=== PATIENT | male | born 1950 | race Caucasian/White ===

== ENCOUNTER 2023-11-04 11:28 | Emergency (ER) | payer MEDICARE, SELFPAY ==
[2023-11-04 11:34] VITALS: BP 134/64; PULSE 73; RESP 16; TEMP 36.6; O2SAT 98; BMI 26.8
--- NOTE | 2023-11-04 11:50 | ED.ANIMALBI1 ---
HPI - Animal Bite General Chief Complaint: Animal Bite Stated Complaint: BITE-CAT Time Seen by Provider: 11/04/23 11:34 Source: patient Mode of arrival: walk-in Limitations: no limitations History of Present Illness HPI narrative: The patient's cat bit him on the left hand 3 days ago. He has a couple of bite owens on the left index finger and a triangular piece of skin that was removed near the left thumb - and now the areas are red and swollen. He is a diabetic. Cat apparently is a home cat and immunized. No systemic complaints such as fever or vomiting. Related Data Previous Rx's Medication Instructions Recorded amoxicillin 875 mg-potassium 1 tab PO BID 10 days #20 tabs 11/04/23 clavulanate 125 mg tablet nabumetone 750 mg tablet 750 mg PO BID PRN pain #14 tabs 11/04/23 Allergies Allergy/AdvReac Type Severity Reaction Status Date / Time acetaminophen [From Percocet] Allergy Severe facial Verified 11/04/23 11:40 swelling oxycodone [From Percocet] Allergy Severe facial Verified 11/04/23 11:40 swelling PFSH PFSH Social History Smoking status: Current every day smoker Exam Narrative Exam Narrative: Nurses notes and vital signs reviewed and patient is not hypoxic. afebrile General: Well-appearing and in no apparent distress. Skin: Warm, dry, no pallor noted. Head: Normocephalic, atraumatic. Neck: Supple, non-tender. Eye: Pupils are equal, round and EOMI. No scleral icterus. Ears, Nose, Mouth, and Throat: Oral mucosa is moist Cardiovascular: Regular Rate and Rhythm without murmur, gallop or rub. Respiratory: No accessory muscle use or respiratory distress. Lungs are clear to auscultation, no wheezing, rales or rhonchi Musculoskeletal: Left hand = swelling and erythema along the index finger with some extension into the 2nd MCP. There is a scabbed triangular area of skin loss and erythema near the base of the left 2nd digit near the thumb. All fingers of the left hand with normal ROM. No proximal streaking into the left wrist of forearm. GI: Abdomen is soft, non-distended. Normal bowel sounds. No tenderness to palpation. No rebound, guarding, or rigidity noted. Neurological: A&O x4. No cranial nerve dysfunction observed. No truncal ataxia. Moves all extremities. Sensation intact. Psychiatric: Cooperative and interactive. Normal mood and affect. Constitutional Vital Signs, click to edit/add: Last Vital Signs Temp 97.8 F 11/04/23 11:34 Pulse 73 11/04/23 11:34 Resp 16 11/04/23 11:34 BP 134/64 11/04/23 11:34 Pulse Ox 98 11/04/23 11:34 O2 Del Method Room Air 11/04/23 11:34 Course Vital Signs Vital signs: Vital Signs Temperature 97.8 F 11/04/23 11:34 Pulse Rate 73 11/04/23 11:34 Respiratory Rate 16 11/04/23 11:34 Blood Pressure 134/64 11/04/23 11:34 Pulse Oximetry 98 11/04/23 11:34 Oxygen Delivery Method Room Air 11/04/23 11:34 Temperature 97.8 F 11/04/23 11:34 Pulse Rate 73 11/04/23 11:34 Respiratory Rate 16 11/04/23 11:34 Blood Pressure 134/64 11/04/23 11:34 Pulse Oximetry 98 11/04/23 11:34 Oxygen Delivery Method Room Air 11/04/23 11:34 MDM - Animal Bite MDM Narrative Medical decision making narrative: Patient prescribed Augmentin for the infection associated with cat bite. Patient instructed to apply topical antibiotic ointment to the wounds on the left hand and cover with a dry clean bandage. PCP follow up or ED return if worse was discussed. Discharge Plan Discharge Chief Complaint: Animal Bite Clinical Impression: Cat bite, Cellulitis of finger of left hand Patient Disposition: Home, Self-Care Time of Disposition Decision: 11:59 Prescriptions / Home Meds: New amoxicillin-pot clavulanate 875-125 mg tablet 1 tab PO BID 10 Days Qty: 20 0RF nabumetone 750 mg tablet 750 mg PO BID PRN (Reason: pain) Qty: 14 0RF Instructions: Animal Bite (ED), Cellulitis (ED) Stand Alone Forms: Portal Instructions Referrals: Physician,Non-Staff, MD [Primary Care Provider] - 1 week
== END 2023-11-04 12:26 | disposition home or self-care (01) ==
PROVIDERS: Emergency Provider Emergency Medicine
DX: S61.251A Open bite of left index finger without damage to nail, initial encounter (principal); S61.052A Open bite of left thumb without damage to nail, initial encounter; L03.114 Cellulitis of left upper limb; W55.01XA Bitten by cat, initial encounter; E11.9 Type 2 diabetes mellitus without complications; F17.210 Nicotine dependence, cigarettes, uncomplicated
CPT/HCPCS: 99283

== ENCOUNTER 2024-05-21 19:37 | Observation (INO) | payer MEDICARE, SELFPAY ==
[2024-05-21 19:43] VITALS: BP 170/84; PULSE 85; TEMP 37.3; O2SAT 98; BMI 285.8
--- OUTSIDE RECORDS SUMMARY | 2024-05-21 19:44 | XMS_ITS | CCD ---
Author Organization [facility] Team Providers Care 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 Name Role Phone TIMUS BHARATHI Unavailable Unavailable [id number], [id number] Unavailable Unavailable August Dumont Unavailable [phone] Unavailable Unavailable Lolita Adorno E Unavailable Schwidar Lolita Unavailable Yohannes Granda Unavailable Schwanmol Lolita Unavailable Clemente Miller Unavailable DO Kyree Lolita E Primary Care Provider DO Kyree Lolita E Attending Provider MD Clemente Miller Attending Provider Rosaline [facility] Joycelyn E Emergency Provider DO Kyree Lolita E Primary Care Provider [phone] MD Clemente Miller Attending Provider Rosaline [facility] Joycelyn E Emergency Provider DO Kyree Lolita E Primary Care Provider MD Clemente Miller Attending Provider VALENTINA Cervantes Other Provider Unavailable VALENTINA Robledo Other Provider Unavailable VALENTINA Santos Other Provider Unavailable VALENTINA Vidal Other Provider Unavailable VALENTINA Hunter Other Provider Unavailable VALENTINA Washington Other Provider Unavailable MD Fercho Guillermo Other Provider Emilia, MD Wu K Other Provider SWEETIE King M Other Provider DO Troy Mendoza Other Provider MD Rusty Gore Other Provider DO Kali Isaac Other Provider MD Reyes Patino Other Provider MD Sallie Braga Other Provider Feroz, ANP-BC Kay Other Provider MD Leon Royal Other Provider [phone] MD Linus Nash Other Provider MD Barbie Osborn Other Provider MD Benjy Vernon Other Provider DO Tyler Santos Other Provider MD Beth Soto Other Provider MD Ronnell Fletcher Other Provider Maliha, INFORMATION TECHNOLOGY OFFICER-C Lea Grullon Other Provider MD Kamron Small Other Provider MD Alejandro Pastrana Other Provider MD Adrien Orona Other Provider DO Barbara Watts Other Provider DO Stephane Rodrigez Other Provider DO Jose Oscar Other Provider SWEETIE Wayne Other Provider DO Roberto Cullen Other Provider MD Cem Murillo Other Provider SWEETIE Dickson Other Provider VALENTINA Hart Other Provider Unavailable Beth Lowe Unavailable DO Kyree Lolita E Primary Care Provider MD Gabriela Florian Attending Provider Florian, Dr. Gabriela Murillo Referring Eleni vailable Florian, Dr. Gabriela Murillo Attending Eleni vailable Florian, Dr. Gabriela Murillo Referring Eleni vailable Florian, Dr. Gabriela Murillo Attending Eleni vailable Lowe, INFORMATION TECHNOLOGY OFFICER-C Beth Attending Provider DO Kyree Lolita E Attending Provider DO Kyree Lolita E Primary Care Provider MD Gabriela Florian Attending Provider [phone] Rosaline, [facility] Joycelyn E Emergency Provider Prieto Santo Unavailable DO Trish Adornoitlin E Primary Care Provider MD Prieto Santo Attending Provider DO Kyree Lolita E Primary Care Provider Rosaline [facility] Joycelyn E Emergency Provider MD Prieto Santo Attending Provider Lyudmila hWite Unavailable DO Enrique Chaparro Emergency Provider MD Barbie Osborn Admit Provider MD Barbie Osborn Attending Provider MD Joao Coley Other Provider [phone] DO Govind Jim Other Provider MD Yohannes Granda Other Provider MD Darian Peters Other Provider MD Milo Wells Other Provider MD Maxx Gonzalez Other Provider SWEETIE Rodriguez Other Provider [phone] MD Kevin Li Other Provider MD Omar Strong Other Provider MD Khushboo Hines Other Provider MD Nette Holden Other Provider MD Mirza Causey Other Provider MD David Mcleod Other Provider MD Tito Martinez Other Provider SWEETIE Ramirez Other Provider MD Parrish Mendosa Other Provider MD Martínez Briceño Other Provider MD Jason Laird Other Provider DO Tej Reynoso Other Provider MD Daly Giraldo Other Provider [phone] MD Juan David Bustamante Other Provider [phone] MD Clement Campa Other Provider DO Donta Ochoa Other Provider DO Lolita Adorno Attending Provider MD Barbie Osborn Referring Provider Lolita Adorno DObeth Primary Care Prov ider MD Gabriela Florian Attending Provider GABRIELA FLORIAN Attending Unavailable LOLITA ADORNOBETH Primary Care Unav ailable Nette Holden Unavailable DO Lolita Adorno E Primary Care Provider MD Gabriela Florian Attending Provider DO Felicia Adornolin E Primary Care Provider DO Lolita Adorno Attending Provider Bullimore, Joycelyn E Admitting Unavailable Schwerer, Lolita E Primary Care Unavailable Bullimore, Joycelyn E Attending Unavailable Schwerer, Lolita E Primary Care Unavailable Olexa, Prieto Admitting Unavailable Olexa, Prieto Attending Unavailable Olexa, Prieto Admitting Unavailable Schwerer, Lolita E Primary Care Unavailable Olexa, Prieto Attending Unavailable Schwerer, Lolita E Primary Care Unavailable Olexa, Prieto Attending Unavailable Olexa, Prieto Admitting Unavailable Schwerer, Lolita E Attending Unavailable Schwerer, Lolita E Admitting Unavailable Schwerer, Lolita E Primary Care Unavailable Schwerer, Lolita E Primary Care Unavailable Florian, Ochoa Attending Unavailable Florian, Ochoa Admitting Unavailable Schwerer, Lolita E Attending Unavailable Schwerer, Lolita E Admitting Unavailable Schwerer, Lolita E Primary Care Unavailable Schwerer, Lolita E Primary Care Unavailable Beth Lowe Admitting Unavailable Beth Lowe Attending Unavailable Florian, Ochoa Admitting Unavailable Florian, Ochoa Attending Unavailable Schwerer, Lolita E Primary Care Unavailable Florian, Ochoa Admitting Unavailable Florian, Ochoa Attending Unavailable Schwerer, Lolita E Primary Care Unavailable Barbie Osborn Admitting Unavailable Barbie Osborn Attending Unavailable Joao Coley Consulting Unavailabl e Schwerer, Lolita E Primary Care Unavailable Govind Jim Consulting Unavailable Yohannes Granda Consulting Unavailable Ahmed, Farmer Consulting Unavailable Russell Kandarp K Consulting Unavailable Maxx Gonzalez Consulting Unavailable Yossi Rodriguez Consulting Unavailable Asaad, Imad Consulting Unavailable Omar Strong Consulting Unavailable Khushboo Hines Consulting Unavailable AdinaNette Consulting Unavailable Singhbartolome, Mirza Consulting Unavailable Mcleod David Consulting Unavailable Tito Martinez Consulting Unavailable Dolores Ramirez Consulting Unavailable Parrish Mendosa Consulting Unavailable Martínez Briceño Consulting Unavaila Jason Jang Consulting Unavailable Tej Reynoso Consulting UnavailDaly Dougherty Consulting Unavailable Juan David Bustamante Consulting Unavailable Clement Campa Consulting Unavailable Donta Ochoa Consulting Unavailable Schwerer, Lolita E Attending Unavailable Schwerer, Lolita E Admitting Unavailable Osborn, Barbie Referring Unavailable Lolita Adorno Primary Care Unavailable Allergies Allergy Classification Reported Allergen(s) Allergy Type Date of Onset Reaction(s) Facility Acetaminophen (1 source) Acetaminophen Drug Allergy 03-22-20 24 swelling of throat [facility] amLODIPine (1 source) amLODIPine Drug Allergy 03-22-20 24 Edema [facility] Aspirin (1 source) Aspirin Drug Allergy 03-22-20 24 Swelling of Lip/Tongue/Thr oat, lips turn blue if takes 2 [facility] Opioid Agonists (1 source) oxyCODONE Drug Allergy 03-22-20 24 Swelling of Lip/Tongue/Thr oat, swelling of throat [facility] (20 sources) Acetaminophen / oxyCODONE; Translations: [Percocet TABS] Drug Allergy 09-24-20 23 Anaphylaxis [email or web address] [facility] [employer] Other (20 sources) amLODIPine; Translations: [amlodipine] Drug Allergy 09-18-20 22 Swelling [facility] (20 sources) Aspirin; Translations: [Aspirin TABS] Drug Allergy 09-24-20 23 Unknown [employer] Other (20 sources) Aspirin; Translations: [ASPIRIN] Drug Allergy 04-25-20 21 Swelling of Lip/Tongue/Thr oat, Swelling of Lip/Tongue/Thr oat, lips turn blue if takes 2 [facility] (20 sources) oxyCODONE; Translations: [oxycodone] Drug Allergy 04-25-20 21 Swelling of Lip/Tongue/Thr oat, Swelling of Lip/Tongue/Thr oat, swelling of throat [facility] (6 sources) Angiotensin Converting Enzyme (Titi) Inhibitors; Translations: [TITI Inhibitors] Allergy to drug (finding) 09-24-20 Other [facility] Repository (1 source) Angiotensin-conve rting enzyme inhibitor agent Propensity to adverse reactions 09-24-20 Other [facility] (1 source) Acetaminophen / oxyCODONE; Translations: [OXYCODONE-ACETAM INOPHEN] Drug Allergy 09-24-20 23 [facility] Repository (5 sources) Acetaminophen; Translations: [acetaminophen] Drug Allergy 12-25-19 24 swelling of throat [facility] (1 source) amLODIPine Drug Allergy 03-22-20 [facility] Repository Medications Current Medications Medication Drug Class(es) Dates Sig (Normalized) Sig (Original) aspirin 81 mg chewable tablet (20 sources) Platelet Aggregation Inhibitor, Nonsteroidal Anti-inflammatory Drug Start: 08-26-2017 End: 09-18-2022 take 81 mg by mouth once daily in the morning Aspirin Active 81 MG PO Every morning September 18, 2022 12:10pm take 1 tablet by mouth once loulou y aspirin 81 mg EC tablet Take 1 tablet (81 mg) by mouth once daily. 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 90 tablet 3 10/16/2023 Active Start: 08-26-2017 End: 08-09-2020 take 80 mg by mouth once daily Atorvastatin Discontinu ed 80 MG PO Daily August 26, 2017 1:00am August 09, 2020 11:48am Start: 08-23-2017 End: 10-16-2023 take 20 mg by mouth once daily at bedtime Atorvastatin Active 20 MG PO Daily at bedtime August 09, 2020 1:00am Blood Pressure Kit - (4 sources) Start: 09-23-2023 Blood Pressure Kit - as directed Sep, Active carvedilol 25 mg oral tablet (20 sources) alpha-Adrenergi c Sima, beta-Adrenergic Sima Start: 10-06-2022 End: 10-15-2024 take 1 dose by mouth twice daily at mealtime Carvedilol Active 25 MG PO Twice daily with meals October 06, 2022 1:00am Further refills, or dose adjustment, per PCP Start: 10-02-2017 End: 10-06-2022 take 12.5 mg by mouth twice daily Carvedilol Discontinued 12.5 MG PO Twice daily October 02, 2017 1:00am October 06, 2022 11:40am Centrum Silver - (20 sources) Centrum Silver - as directed Orally Active ferrous sulfate 325 mg oral tablet (20 sources) Start: 04-22-2024 Ferrous Sulfat e Active 0 .ROUTE .COMPLEX April 22, 2024 1:47pm TAKE 1 TABLET EVERY MORNING Start: 04-25-2021 End: 04-22-2024 take 325 mg by mouth once daily in the morning Ferrous Sulfate Discontinued 325 MG PO Every morning 2024 8:37am April 22, 2024 1:47pm take 1 tablet by garrick th once daily Ferrous Sulfate 325 (65 Fe) MG TAKE 1 TABLET BY MOUTH EVERY DAY for 90 days Active take 1 tablet by garrick th once daily Ferrous Sulfate 325 (65 Fe) MG TAKE 1 TABLET BY MOUTH EVERY DAY for 90 Active furosemide 40 mg oral tablet (20 sources) Loop Diuretic Start: 04-26-2024 Furosemide Act les MG PO April 26, 2024 12:00am Start: 07-18-2023 End: 10-15-2024 take 1 tablet by mouth once daily furosemide (Lasix) 40 mg tablet Indications: 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of eek coronary 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 90 tablet 3 10/16/2023 10/15/2024 Active Start: 09-12-2021 End: 11-23-2021 take 40 mg by mouth once daily Furosemide Discontinued 40 MG PO Daily September 12, 2021 1:00am November 23, 2021 11:03am Start: 08-23-2017 End: 04-25-2021 take 1 tablet by mouth once daily Furosemide (Lasix) 40 mg Tablet Discontinued 40 MG PO Daily August 23, 2017 1:00am April 25, 2021 10:48pm hydrALAZINE hydrochloride 50 mg oral tablet (20 sources) Arteriolar Vasodilator Start: 04-26-2024 End: 04-26-2024 take 75 mg by mouth twice daily Hydralazine Active 75 MG PO Twice daily 270 April 26, 2024 1:59pm Start: 10-06-2022 End: 09-08-2023 take 1 dose by mouth twice daily Hydralazine Discontinued 100 MG PO Twice daily 120 October 06, 2022 1:00am September 08, 2023 3:47pm Further refills, or dose adjustment, per PCP Start: 08-10-2020 End: 10-15-2024 take 1 dose by mouth twice daily Hydralazine Discontinued 50 MG PO Twice daily September 08, 2023 3:47pm April 26, 2024 1:59pm Further refills, or dose adjustment, per PCP take 1 tablet by garrick th twice daily hydrALAZINE HCl - 100 MG Oral Tablet TAKE 1 TABLET TWICE DAILY DIRECTED. Quantity: 180 Refills: 3 Ordered: 16-Oct-2022 DO Active 3 ml insulin glargine 100 unt/ml pen injector (20 sources) Insulin Analog Start: 12-25-2023 inject 10 [IU] by subcutaneous injection twice daily Insulin Glargine (Lantus Solostar U-100 Insulin) 100 unit/mL (3 mL) insulin pen Active 10 UNIT SUBCUT Twice daily December 25, 2023 10:39am Start: 11-25-2023 End: 12-25-2023 inject 10 [IU] by subcutaneous injection once daily Insulin Glargine (Lantus Solostar U-100 Insulin) 100 unit/mL (3 mL) insulin pen Discontinued 10 UNIT SUBCUT Daily November 25, 2023 1:42pm December 25, 2023 10:40am Start: 08-19-2022 inject 10 [IU] by moirn bcutaneous injection once daily Lantus Solostar U-100 Insulin 100 unit/mL (3 mL) pen INJECT 10 UNITS SUBCUTANEOUSLY DAILY 0 08/11/2023 Active Start: 08-19-2022 Lantus SoloSta r 100 UNIT/ML 8 U Subcutaneous bid Aug, Active Start: 08-19-2022 Lantus SoloSta r 100 UNIT/ML 10 U Subcutaneous Aug, Active Start: 11-23-2021 inject 30 [IU] by morin bcutaneous injection once daily Insulin Glargine (Lantus U-100 Insulin) 100 unit/mL solution Active 30 UNIT SUBCUT Daily November 23, 2021 10:04am Start: 08-23-2017 End: 11-23-2021 inject 50 [IU] by subcutaneous injection once daily Insulin Glargine (Lantus U-100 Insulin) 100 unit/mL Solution Discontinued 50 UNIT SUBCUT Daily 0 August 26, 2017 1:59pm November 23, 2021 11:04am Iron (3 sources) Start: 04-17-2021 take 1 tablet by mouth once daily Iron (Ferrous Sulfate) 325 (65 Fe) MG 1 tablet Orally Once a day Apr, Active 24 hr isosorbide mononitrate 30 mg extended release oral tablet (20 sources) Nitrate Vasodilator Start: 03-28-2022 End: 10-15-2024 take 30 mg by mouth once daily in the morning Isosorbide Mononitrate Active 30 MG PO Every morning September 18, 2022 1:00am Start: 08-08-2020 End: 09-18-2022 take 60 mg by mouth once daily Isosorbide Mononitrate Discontinued 60 MG PO Daily August 08, 2020 1:00am September 18, 2022 12:10pm take 0.5 tablet by m outh once daily Isosorbide Mononitrate ER 60 MG Oral Tablet Extended Release 24 Hour TAKE 0.5 TABLET Daily Quantity: 0 Refills: 0 Ordered: 19-Sep-2021 DO Active Lantus 100 UNITS CARTRIDGE 3 ML 5'S (5 sources) Lantus 100 UNITS CARTRIDGE 3ML 5'S 30 U Active Lantus 100 UNITS CARTRIDGE 3ML 5'S Active Ltandphe-Vrl-Llusxqn Glucona te (Centrum) 9 mg iron/ 15 mL (15 mL) Liquid (20 sources) Start: 08-08-2020 Mrzdryit-Zrw-K errous Gluconate (Centrum) 9 mg iron/ 15 mL (15 mL) Liquid Active 15 ML PO Daily August 08, 2020 12:00am Start: 08-08-2020 Nxneudws-Neb-J errous Gluconate (Centrum) 9 mg iron/ 15 mL (15 mL) Liquid Active 15 ML PO Daily August 08, 2020 1:00am multivitamin (Daily Multi-Vitamin) tablet (1 source) take 1 tablet by mouth once daily multivitamin (Daily Multi-Vitamin) tablet Take 1 tablet by mouth once daily. 0 Active nitroglycerin 0.4 mg sublingual tablet (20 sources) Nitrate Vasodilator Start: 08-26-20 End: 11-15-19 Nitroglycerin Active 0.4 MG SUBLINGUAL Q5M 30 August 26, 2017 1:00am Nitroglycerin 0. [address] 1 TABLET UNDER THE TONGUE EVERY 5 MINUTES UP TO 3 DOSES NEEDED FOR CHEST PAIN. Sublingual for 8 Active pantoprazole 40 mg delayed release oral tablet (18 sources) Proton Pump Inhibitor Start: 09-11-2023 End: 03-15-2024 take 40 mg by mouth once daily Pantoprazole Active 40 MG PO Daily March 15, 2024 10:56am predniSONE 5 mg oral tablet (20 sources) Start: 05-06-2023 take 1 tablet by mouth every twenty-four hours predniSONE 5 MG 1 tablet Orally Once a day for 7 days May, Active Start: 10-05-2022 End: 09-08-2023 Prednisone Discontinued 1 do se pk PO per package directions October 05, 2022 1:00am September 08, 2023 3:57pm take 4 tabs for 3 days then take 3 tabs for 3 days then take 2 tabs for 3 days then take 1 tab for 3 days Start: 10-05-2022 End: 09-08-2023 Prednisone Discontinued 1 do se pk PO per package directions October 05, 2022 12:00am September 08, 2023 2:57pm take 4 tabs for 3 days then take 3 tabs for 3 days then take 2 tabs for 3 days then take 1 tab for 3 days Start: 10-05-2022 Prednisone Act les 1 dose pk PO per package directions October 05, 2022 1:00am take 4 tabs for 3 days then take 3 tabs for 3 days then take 2 tabs for 3 days then take 1 tab for 3 days Start: 10-05-2022 Prednisone Act les 1 dose pk PO per package directions October 05, 2022 12:00am take 4 tabs for 3 days then take 3 tabs for 3 days then take 2 tabs for 3 days then take 1 tab for 3 days Start: 07-14-2022 End: 09-18-2022 take 20 mg by mouth twice daily Prednisone Discontinue d 20 MG PO Twice daily 07 10July 14, 2022 12:00am September 18, 2022 12:04pm Start: 08-23-2017 End: 08-24-2017 take 40 mg by mouth once daily at mealtime Prednisone Discontinued 40 MG PO Daily 07 10August 23, 2017 1:00am August 24, 2017 3:31pm administer with food or milk vitamin b12 1 mg oral tablet (20 sources) Vitamin B12 Start: 09-18-2022 take 1 tablet by mouth once daily in the morning Cyanocobalamin (Vitamin B-12) (Vitamin B-12) 1,000 mcg Tablet Active 1000 MCG PO Every morning September 18, 2022 1:00am Vitamin B 12 Act les Completed/Discontinued Medications Medication Drug Class(es) Dates Sig (Normalized) Sig (Original) acetaminophen 325 mg / HYDROcodone bitartrate 5 mg oral tablet (20 sources) Opioid Agonist Start: 10-05-2022 End: 09-08-2023 take 1 tablet by mouth every six hours Hydrocodone-Acetami nophen Discontinued 1 TAB PO Q6H 10 July 22, 2023 September 08, 2023 3:59pm Start: 11-23-2021 End: 09-18-2022 take 1 tablet by mouth every four to six hours Hydrocodone-Acetaminophen Discontinued 1 - 2 TAB PO EVERY 4-6 HOURS 14 November 23, 2021 September 18, 2022 12:11pm [id number] actuat albuterol 0.09 mg/actuat metered dose inhaler (20 sources) beta2-Adrenergic Agonist Start: 08-23-2017 End: 08-24-2017 Albuterol Sulfate Discontinued 2 INH INHALATION Every 4 hours August 23, 2017 1:00am August 24, 2017 3:31pm administer with spacer amLODIPine 5 mg oral tablet (20 sources) Dihydropyridine Calcium Channel Sima Start: 12-13-2020 End: 09-12-2021 take 5 mg by mouth once daily Amlodipine Discontinued 5 MG PO Daily December 13, 2020 1:00am September 12, 2021 10:01am Start: 08-23-2017 End: 12-14-2020 take 10 mg by mouth once daily Amlodipine Discontinued 10 MG PO Daily August 23, 2017 1:00am December 14, 2020 12:29pm B-12 TABS (7 sources) B-12 TABS TAKE 1 TABLET DAILY DIRECTED. Quantity: 0 Refills: 0 Ordered: 28-Mar-2022 DO Active carisoprodol 350 mg oral tablet (20 sources) Muscle Relaxant Start: 04-25-2021 End: 09-12-2021 take 350 mg by mouth once daily Carisoprodol Discontinued 350 MG PO Daily April 25, 2021 12:00am September 12, 2021 10:20am Start: 08-23-2017 End: 10-02-2017 take 350 mg by mouth at bedtime Carisoprodol Discontin ued 350 MG PO Bedtime August 23, 2017 1:00am October 02, 2017 9:01pm cefdinir 300 mg oral capsule (20 sources) Cephalosporin Antibacterial Start: 08-10-2020 End: 09-16-2020 take 300 mg by mouth twice daily Cefdinir Discontinued 300 MG PO Twice daily 14 August 10, 2020 1:00am September 16, 2020 12:24pm chlorhexidine gluconate 1.2 mg/ml mouthwash (20 sources) Start: 04-22-2021 End: 09-12-2021 Chlorhexidine Gluconate (Peridex) 0.12 % mouthwash Discontinued 15 ML MUCOUS MEM Twice daily April 22, 2021 12:00am September 12, 2021 10:19am clindamycin 150 mg oral capsule (20 sources) Lincosamide Antibacterial Start: 07-15-2022 take 3 capsules by mouth every eight hours Clindamycin HCl 150 MG 3 capsules Orally TID for 10 day(s) ER Jul, Not-Taking/PRN Start: 07-14-2022 End: 09-18-2022 take 450 mg by mouth three times daily Clindamycin Hcl Discontinued 450 MG PO Three times daily July 14, 2022 12:00am September 18, 2022 12:04pm clopidogrel 75 mg oral tablet (20 sources) [id number] Platelet Inhibitor Start: 09-16-2020 End: 09-12-2021 take 75 mg by mouth once daily Clopidogrel Discontinued 75 MG PO Daily September 16, 2020 1:00am September 12, 2021 10:01am cyclobenzaprine hydrochloride 10 mg oral tablet (20 sources) Muscle Relaxant Start: 09-08-2023 End: 01-22-2024 take 10 mg by mouth once daily at bedtime Cyclobenzaprine Discontinued 10 MG PO Daily at bedtime January 22, 2024 10:30am January 22, 2024 11:16am Start: 02-11-2022 End: 09-08-2023 take 10 mg by mouth three times daily Cyclobenzaprine Discontinued 10 MG PO Three times daily October 05, 2022 1:00am September 08, 2023 3:50pm Start: 06-18-2021 End: 10-05-2022 take 10 mg by mouth once daily at bedtime Cyclobenzaprine Discontinued 10 MG PO Daily at bedtime September 12, 2021 1:00am October 05, 2022 10:36am dapagliflozin 5 mg oral tablet (9 sources) Sodium-Glucose Cotransporter 2 Inhibitor Start: 11-24-2023 End: 12-25-2023 take 1 tablet by mouth once daily Dapagliflozin Propanediol (Farxiga) 5 mg tablet Discontinued 5 MG PO Daily November 24, 2023 1:00am December 25, 2023 11:03am Start: 09-23-2023 take 1 tablet by garrick th every twenty-four hours Farxiga 5 MG 1 tablet Orally Once a day for 30 days Sep, Active glipiZIDE 5 mg oral tablet (20 sources) Sulfonylurea Start: 12-25-2023 End: 03-22-2024 take 5 mg by mouth once daily Glipizide Discontinued 5 MG PO Daily December 25, 2023 12:00am March 22, 2024 11:01am Start: 08-23-2017 End: 08-10-2020 take 10 mg by mouth twice daily Glipizide Discontinued 10 MG PO Twice daily August 23, 2017 1:00am August 10, 2020 10:11am take 1 tablet by garrick th twice daily glipiZIDE ER 10 MG Oral Tablet Extended Release 24 Hour Take 1 tablet twice daily Quantity: 0 Refills: 0 Ordered: 19-Sep-2021 DO Active Insulin Glargine (Lantus U-100 Insulin) 100 unit/mL solution (20 sources) Start: 09-08-2023 End: 11-25-2023 inject 8 [IU] by subcutaneous injection twice daily Insulin Glargine (Lantus U-100 Insulin) 100 unit/mL solution Discontinued 8 UNIT SUBCUT Twice daily September 08, 2023 3:59pm November 25, 2023 1:42pm Further refills per PCP Start: 09-08-2023 inject 8 [IU] by sub cutaneous injection twice daily Insulin Glargine (Lantus U-100 Insulin) 100 unit/mL solution Active 8 UNIT SUBCUT Twice daily September 08, 2023 2:59pm Further refills per PCP Start: 10-06-2022 End: 09-08-2023 inject 10 [IU] by subcutaneous injection once daily in the morning Insulin Glargine (Lantus U-100 Insulin) 100 unit/mL solution Discontinued 10 UNIT SUBCUT Every morning October 06, 2022 11:41am September 08, 2023 3:59pm Further refills per PCP Start: 10-06-2022 End: 09-08-2023 inject 10 [IU] by subcutaneous injection once daily in the morning Insulin Glargine (Lantus U-100 Insulin) 100 unit/mL solution Discontinued 10 UNIT SUBCUT Every morning October 06, 2022 10:41am September 08, 2023 2:59pm Further refills per PCP Start: 10-06-2022 inject 10 [IU] by morin bcutaneous injection once daily in the morning Insulin Glargine (Lantus U-100 Insulin) 100 unit/mL solution Active 10 UNIT SUBCUT Every morning October 06, 2022 11:41am Further refills per PCP Start: 10-06-2022 inject 10 [IU] by morin bcutaneous injection once daily in the morning Insulin Glargine (Lantus U-100 Insulin) 100 unit/mL solution Active 10 UNIT SUBCUT Every morning October 06, 2022 10:41am Further refills per PCP Start: 11-23-2021 End: 10-06-2022 inject 10 [IU] by subcutaneous injection once daily in the morning Insulin Glargine (Lantus U-100 Insulin) 100 unit/mL solution Discontinued 10 UNIT SUBCUT Every morning November 23, 2021 11:04am October 06, 2022 11:41am Start: 11-23-2021 End: 10-06-2022 inject 10 [IU] by subcutaneous injection once daily in the morning Insulin Glargine (Lantus U-100 Insulin) 100 unit/mL solution Discontinued 10 UNIT SUBCUT Every morning November 23, 2021 10:04am October 06, 2022 10:41am Start: 11-23-2021 inject 10 [IU] by morin bcutaneous injection once daily in the morning Insulin Glargine (Lantus U-100 Insulin) 100 unit/mL solution Active 10 UNIT SUBCUT Every morning November 23, 2021 10:04am levoFLOXacin 750 mg oral tablet (20 sources) Quinolone Antimicrobial Start: 08-26-2017 End: 10-02-2017 Levofloxacin Discontinued 750 MG PO Q48H 0 August 26, 2017 1:00am October 02, 2017 9:01pm Start: 08-23-2017 End: 08-24-2017 take 1 tablet by mouth once daily Levofloxacin (Levaquin) 750 mg tablet Discontinued 750 MG PO Daily 10 August 23, 2017 1:00am August 24, 2017 3:31pm lidocaine 0.05 mg/mg medicated patch (9 sources) Antiarrhythmic, Amide Local Anesthetic Start: 05-06-2023 Lidocaine 5 % 1 patch remove after 12 hours Externally Once a day for 30 days May, Not-Taking/PRN lisinopril 20 mg oral tablet (20 sources) Angiotensin Converting Enzyme Inhibitor Start: 10-02-2017 End: 12-10-2018 take 40 mg by mouth once daily Lisinopril Discontinued 40 MG PO Daily October 02, 2017 1:00am December 10, 2018 7:50pm Start: 08-23-2017 End: 08-10-2020 take 40 mg by mouth once daily Lisinopril Discontinued 40 MG PO Daily August 23, 2017 1:00am August 10, 2020 10:11am take 2 tablets by [facility] once daily Lisinopril 20 MG Oral Tablet TAKE 2 TABLETS DAILY. Quantity: 180 Refills: 3 Ordered: 19-Sep-2021 Gabriela Florian MD Active metFORMIN hydrochloride 500 mg oral tablet (20 sources) Biguanide Start: 08-08-2020 End: 12-25-2023 take 500 mg by mouth twice daily Metformin Discontinued 500 MG PO Twice daily August 08, 2020 1:00am December 25, 2023 10:39am take [facility] tablet by [facility] every twelve hours at mealtime metFORMIN HCl - 500 MG Oral Tablet TAKE 1 TABLET EVERY 12 HOURS WITH FOOD. Quantity: 0 Refills: 0 Ordered: 19-Sep-2021 DO Active metoprolol tartrate 25 mg oral tablet (20 sources) beta-Adrenergic Sima Start: 08-26-2017 End: 10-02-2017 take 25 mg by mouth twice daily Metoprolol Tartrate Discontinued 25 MG PO Twice daily August 26, 2017 1:00am October 02, 2017 9:01pm Multi Vitamin Daily Oral Tablet (2 sources) take 1 tablet by mouth once daily Multi Vitamin Daily Oral Tablet TAKE 1 TABLET DAILY. Quantity: 0 Refills: 0 Ordered: 28-Mar-2022 DO Active Multi Vitamin Daily TABS (5 sources) Multi Vitamin Daily TABS TAKE 1 TABLET DAILY. Quantity: 0 Refills: 0 Ordered: 28-Mar-2022 DO Active penicillin v potassium 500 mg oral tablet (20 sources) Start: 04-22-2021 End: 06-21-2021 take 500 mg by mouth twice daily Penicillin V Potassium Discontinued 500 MG PO Twice daily 25 07April 22, 2021 12:00am June 21, 2021 7:24am rOPINIRole 1 mg oral tablet (20 sources) Nonergot Dopamine Agonist Start: 08-23-2017 End: 12-10-2018 take 1 mg by mouth at bedtime Ropinirole Discontinued 1 MG PO Bedtime August 23, 2017 1:00am December 10, 2018 7:50pm saccharomyces boulardii 250 mg oral capsule (20 sources) Start: 08-10-2020 End: 09-12-2021 take 1 capsule by mouth twice daily at mealtime Saccharomyces Boulardii (Florastor) 250 mg capsule Discontinued 250 MG PO Twice daily August 10, 2020 1:00am September 12, 2021 10:01am open capsule; add to semi-solid food (e.g., applesauce, oatmeal, yogurt) or drink (e.g., water, juice, milk, formula) SITagliptin 100 mg oral tablet (20 sources) Dipeptidyl Peptidase 4 Inhibitor Start: 09-12-2021 End: 12-25-2023 Sitagliptin Phosphate (Januvia) 100 mg tablet Discontinued 50 MG PO Twice daily September 12, 2021 1:00am December 25, 2023 11:03am Start: 09-12-2021 Sitagliptin Ph osphate (Januvia) 100 mg tablet Active 50 MG PO Daily September 12, 2021 12:00am Start: 06-25-2021 End: 10-16-2023 take 1 tablet by mouth once daily Januvia 100 mg tablet Take 1 tablet (100 mg) by mouth once daily. 0 08/09/2023 10/16/2023 Discontinued (Therapy completed) Start: 06-25-2021 take 1 tablet by gar[facility] every twenty-four hours Januvia 50 MG 1 tablet Orally Once a day Jun, Active take 1 tablet by [facility] twice daily Januvia 50 MG Oral Tablet Take 1 tablet twice daily Quantity: 0 Refills: 0 Ordered: 28-Mar-2022 DO Active ticagrelor 90 mg oral tablet (20 sources) Start: 08-26-2017 End: 08-08-2020 take 1 tablet by mouth twice daily Ticagrelor (Brilinta) 90 mg Tablet Discontinued 90 MG PO Twice daily 360 180 August 26, 2017 1:00am August 08, 2020 8:33am Problems Active Problems Problem Classification Problem Date Documented Date Episodic/Chronic Abdominal pain (20 sources) Abdominal pain; Translations: [Unspecified abdominal pain] Onset: 1 Resolved: 1 Episodic Acquired foot deformities (20 sources) Left foot drop; Translations: [Foot drop, left foot] Onset: 2 Resolved: 2 Episodic Acute and unspecified renal failure (20 sources) Injury of kidney; Translations: [Acute kidney failure, unspecified] Onset: 3 08-08-2020 Episodic Acute bronchitis (20 sources) Acute bronchitis; Translations: [Acute bronchitis, unspecified] 08-23-2017 Episodic Acute myocardial infarction (20 sources) Myocardial infarction; Translations: [ST elevation (STEMI) myocardial infarction of unspecified site] 08-25-2017 Chronic Chronic kidney disease (20 sources) Chronic kidney disease stage 3A ; Translations: [Chronic kidney disease, Stage III (moderate)] Onset: 3 09-15-2020 Chronic Chronic kidney disease (11 sources) Chronic kidney disease; Translations: [Stage 3b chronic kidney disease (CKD)] Onset: 2 Resolved: 2 Conditions associated with dizziness or vertigo (20 sources) Lightheadedness; Translations: [Dizziness and giddiness] 04-26-2021 Episodic Coronary atherosclerosis and other heart disease (20 sources) Coronary atherosclerosis; Translations: [Coronary atherosclerosis of eek coronary artery] Onset: 2 Resolved: 2 Chronic Coronary atherosclerosis and other heart disease (20 sources) Patient post percutaneous transluminal coronary angioplasty; Translations: [Percutaneous transluminal coronary angioplasty status] Onset: 3 12-13-2020 Episodic Comment on above: 2017 RCA; Deficiency and other anemia (20 sources) Chronic anemia; Translations: [Anemia in other chronic diseases classified elsewhere] Chronic Deficiency and other anemia (2 sources) Anemia in other chronic diseases classified elsewhere Onset: 1 Resolved: 2 Chronic Deficiency and other anemia (2 sources) Anemia of renal disease; Translations: [Anemia in chronic kidney disease] Chronic Deficiency and other anemia (2 sources) Anemia in chronic kidney disease; Translations: [Anemia in chronic kidney disease] Onset: 3 Chronic Deficiency and other anemia (20 sources) Anemia; Translations: [Anemia, unspecified] Episodic Diabetes mellitus with complications (20 sources) Insulin treated type 2 diabetes mellitus; Translations: [Type 2 diabetes mellitus with diabetic chronic kidney disease] Onset: 1 Resolved: 2 Chronic Diabetes mellitus without complication (20 sources) Diabetes mellitus; Translations: [Diabetes mellitus without mention of complication, type II or unspecified type, not stated as uncontrolled] Onset: 3 09-15-2020 Chronic Diabetes mellitus without complication (1 source) Diabetes mellitus without complication; Translations: [Type 2 diabetes mellitus with diabetic chronic kidney disease] Onset: 3 Disorders of lipid metabolism (20 sources) Hyperlipidemia; Translations: [Other and unspecified hyperlipidemia] Onset: 3 09-15-2020 Chronic Disorders of teeth and jaw (20 sources) Toothache; Translations: [Other specified disorders of teeth and supporting structures] 04-22-2021 Episodic Diverticulosis and diverticulitis (20 sources) Diverticular disease of colon; Translations: [Diverticulosis of intestine, part unspecified, without perforation or abscess without bleeding] Onset: 2 Resolved: 2 Chronic E Codes: Fall (12 sources) Fall; Translations: [Unspecified fall, initial encounter] 07-22-2023 Episodic Essential hypertension (20 sources) Essential hypertension; Translations: [Unspecified essential hypertension] Onset: 1 Resolved: 2 Chronic Fracture of upper limb (17 sources) Fracture of metacarpal bone; Translations: [Unspecified fracture of fifth metacarpal bone, right hand, initial encounter for closed fracture] Onset: 3 07-22-2023 Episodic Gastritis and duodenitis (5 sources) Chronic gastritis; Translations: [Unspecified chronic gastritis without bleeding] Chronic Gastritis and duodenitis (14 sources) Duodenitis; Translations: [Duodenitis without bleeding] Onset: 3 09-09-2023 Episodic Genitourinary symptoms and ill-defined conditions (15 sources) Proteinuria; Translations: [Proteinuria, unspecified] Onset: 3 09-09-2023 Episodic Hemorrhoids (20 sources) Hemorrhoids; Translations: [Unspecified hemorrhoids] Onset: 2 Resolved: 2 Episodic Hypertension with complications and secondary hypertension (20 sources) Hypertensive emergency; Translations: [Hypertensive emergency] Onset: 3 09-08-2023 Chronic Malaise and fatigue (20 sources) Fatigue; Translations: [Chronic fatigue, unspecified] Chronic Nausea and vomiting (17 sources) Nausea; Translations: [Nausea] 10-03-2022 Episodic Nonspecific chest pain (20 sources) Chest pain, unspecified; Translations: [Musculoskeletal chest pain] Onset: 7 11-23-2021 Episodic Other acquired deformities (20 sources) Lumbar spondylolisthesis; Translations: [Spondylolisthesis, lumbar region] 10-03-2022 Episodic Other acquired deformities (6 sources) Spondylolisthesis, lumbar region; Translations: [Acquired spondylolisthesis] Onset: 2 Resolved: 2 Episodic Other aftercare (20 sources) Long-term current use of insulin; Translations: [assisted (current) use of insulin] Episodic Other aftercare (3 sources) assisted (current) use of insulin; Translations: [ocean transportation intermediary (current) use of insulin ([facility])] Onset: 3 Episodic Other aftercare (1 source) Encounter for follow-up examination after completed treatment for conditions other than malignant neoplasm Episodic Other and unspecified benign neoplasm (20 sources) Tubular adenoma ; Translations: [Benign neoplasm, unspecified site] Episodic Other connective tissue disease (2 sources) Other symptoms and signs involving the musculoskeletal system; Translations: [Other musculoskeletal symptoms referable to limbs] Onset: 2 Resolved: 2 Episodic Other connective tissue disease (20 sources) Swelling of left lower limb; Translations: [Other specified soft tissue disorders] 09-15-2020 Episodic Other connective tissue disease (16 sources) Paraparesis; Translations: [Other symptoms and signs involving the musculoskeletal system] 10-04-2022 Episodic Other connective tissue disease (4 sources) Arthrodesis status Episodic Other diseases of kidney and ureters (20 sources) Perinephritis; 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, unspecified] 08-08-2020 Chronic Other diseases of kidney and ureters (3 sources) Secondary hyperparathyroidism; Translations: [Secondary hyperparathyroidism of renal origin] 04-24-2024 Chronic Other diseases of kidney and ureters (2 sources) Secondary hyperparathyroidism of renal origin; Translations: [Secondary hyperparathyroidism (of renal origin)] Chronic Other endocrine disorders (20 sources) Hypoglycemia; Translations: [Hypoglycemia, unspecified] 12-13-2020 Chronic Other injuries and conditions due to external causes (8 sources) At risk for falls ; Translations: [History of fall] Episodic Other nervous system disorders (20 sources) Paresthesia of left upper limb; Translations: [Paresthesia of skin] 10-02-2017 Episodic Other nutritional; endocrine; and metabolic disorders (20 sources) Obesity; Translations: [Obesity, unspecified] 09-15-2020 Chronic Other nutritional; endocrine; and metabolic disorders (16 sources) Overweight in adulthood with body mass index of 25 or more but less than 30; Translations: [Overweight] Onset: 4 Resolved: 1 10-16-2023 Episodic Other nutritional; endocrine; and metabolic disorders (2 sources) Overweight; Translations: [Overweight] Onset: 4 Episodic Other nutritional; endocrine; and metabolic disorders (2 sources) Body mass index (BMI) 27.0-27.9, adult; Translations: [Body mass index (BMI) 27.0-27.9, adult] Onset: 4 Episodic Other screening for suspected conditions (not mental disorders or infectious disease) (20 sources) Encounter for screening for malignant neoplasm of colon; Translations: [Encounter for screening for malignant neoplasm of prostate] Onset: 1 Resolved: 2 Episodic Pancreatic disorders (not diabetes) (14 sources) Chronic pancreatitis; Translations: [Other chronic pancreatitis] Onset: 3 09-11-2023 Chronic Residual codes; unclassified (20 sources) Bilateral lower limb edema; Translations: [Edema] Resolved: 1 12-13-2020 Episodic Skin and subcutaneous tissue infections (20 sources) Cellulitis of face; Translations: [Cellulitis of face] 07-14-2022 Episodic Spondylosis; intervertebral disc disorders; other back problems (20 sources) Lumbar spondylosis; Translations: [Spondylosis without myelopathy or radiculopathy, lumbar region] Chronic Spondylosis; intervertebral disc disorders; other back problems (20 sources) Radiculopathy, lumbar region; Translations: [Spinal stenosis of lumbar region] Onset: 2 Resolved: 2 Episodic Sprains and strains (16 sources) Sprain of knee; Translations: [Sprain of unspecified site of right knee, initial encounter] 07-22-2023 Episodic Substance-related disorders (12 sources) Occasional tobacco smoker; Translations: [Tobacco use disorder] Onset: 3 10-16-2023 Chronic Comment on above: 1-2 packs weekly; 1 pack every 2 weeks ; Thyroid disorders (20 sources) Thyroid nodule; Translations: [Nontoxic single thyroid nodule] Onset: 2 Resolved: 2 Chronic Unclassified (2 sources) Chest pain, unspecified / R07.9(ICD-9) Onset: 7 Unclassified (1 source) Displaced fracture of neck of fifth metacarpal bone, right hand, subsequent encounter for fracture with routine healing; Translations: [Displaced fracture of neck of fifth metacarpal bone, right hand, subsequent encounter for fracture with routine healing] Onset: 3 Unclassified (1 source) Displaced fracture of neck of fifth metacarpal bone, right hand, initial encounter for closed fracture; Translations: [Displaced fracture of neck of fifth metacarpal bone, right hand, initial encounter for closed fracture] Onset: 3 Unclassified (1 source) Displaced fracture of shaft of fifth metacarpal bone, right hand, initial encounter for closed fracture; Translations: [Displaced fracture of shaft of fifth metacarpal bone, right hand, initial encounter for closed fracture] Onset: 3 Unclassified (1 source) Encounter for screening for malignant neoplasm of prostate; Translations: [Encounter for screening for malignant neoplasm of prostate] Onset: 3 Unclassified (1 source) Spondylolisthesis, lumbar region; Translations: [Spondylolisthesis, lumbar region] Onset: 3 Urinary tract infections (20 sources) Pyelonephritis; Translations: [Tubulo-interstitial nephritis, not specified as acute or chronic] 08-08-2020 Episodic Past or Other Problems Problem Classification Problem Date Documented Da te Episodic/Chronic Deficiency and other anemia (1 source) Anemia, unspecified; Translations: [Anemia, unspecified] Onset: 04-30-2023 Episodic Other gastrointestinal disorders (1 source) Flatulence Onset: 10-31-2021 Resolved: 10-31-2021 Episodic Other nutritional; endocrine; and metabolic disorders (12 sources) Body mass index 25-29 - overweight; Translations: [Body Mass Index 28.0-28.9, adult] Resolved: 09-19-2021 Episodic Unclassified (1 source) Onset: 10-16-2023 10-16-2023 Results Test Name Value Interpretation Reference Range Facility Alanine aminotransferase [En zymatic activity/volume] in Serum or PlasmaOrdered By: Lolita Adorno on 03-22-2024 ALT [Catalytic activity/Vol] 19 U/L 7-52 [facility] Comment on above: Order Comment: HALIMA MUJICA Performed By: #### G LULS #### Point of Care testing , Albumin [Mass/volume] in Ser um or Plasma by Bromocresol green (BCG) dye binding methoOrdered By: Lolita Adorno on 03-22-2024 Albumin BCG dye [Mass/Vol] 4.3 g/dL 3.5-5.7 [facility] Alkaline phosphatase [Enzyma tic activity/volume] in Serum or PlasmaOrdered By: Lolita Adorno on 03-22-2024 ALP [Catalytic activity/Vol] 102 U/L 34-104 [facility] Comment on above: Order Comment: HALIMA MUJICA Performed By: #### G LULS #### Point of Care testing , Aspartate aminotransferase [ Enzymatic activity/volume] in Serum or PlasmaOrdered By: Lolita Adorno on 03-22-2024 AST [Catalytic activity/Vol] 19 U/L 13-39 [facility] Comment on above: Order Comment: HALIMA FERRARAW Performed By: #### G LULS #### Point of Care testing , Automated basophil %Ordered By: Lolita Adorno on 03-22-2024 Basophils/100 WBC (Bld) 0.5 % . [facility] Comment on above: Performed By: #### G LULS #### Point of Care testing , Automated basophil countOrde red By: Lolita Adorno on 03-22-2024 Basophils (Bld) [#/Vol] 0.0 10*3/uL 0.0-0.2 [facility] Comment on above: Result Comment: PERF ORMED BY: [facility] [address] [address] PATHOLOGIST [employer]GER LAZARUS MILLER M.D. Performed By: #### G LULS #### Point of Care testing , Automated blood monocyte cou ntOrdered By: Lolita Adorno on 03-22-2024 Monocytes (Bld) [#/Vol] 0.8 10*3/uL 0.0-0.8 [facility] Comment on above: Performed By: #### G LULS #### Point of Care testing , Automated eosinophil %Ordere d By: Lolita Adorno on 03-22-2024 Eosinophils/100 WBC (Bld) 4.4 % . [facility] Comment on above: Performed By: #### G LULS #### Point of Care testing , Automated eosinophil countOr dered By: Lolita Adorno on 03-22-2024 Eosinophils (Bld) [#/Vol] 0.3 10*3/uL 0.0-0.45 [facility] Comment on above: Performed By: #### G LULS #### Point of Care testing , Automated monocyte %Ordered By: Lolita Adorno on 03-22-2024 Monocytes/100 WBC (Bld) 10.6 % . [facility] Comment on above: Performed By: #### G LULS #### Point of Care testing , Automated neutrophil %Ordere d By: Lolita Aragonr on 03-22-2024 Neutrophils/100 WBC (Bld) 56.4 % . [facility] Comment on above: Performed By: #### G LULS #### Point of Care testing , Bilirubin.total [Mass/volume ] in Serum or PlasmaOrdered By: Lolita Adorno on 03-22-2024 Bilirubin [Mass/Vol] 0.6 mg/dL 0.3-1.0 [facility] Comment on above: Order Comment: HALIMA BAILEY JKW Performed By: #### G LULS #### Point of Care testing , Calcium [Mass/volume] in Ser um or PlasmaOrdered By: Lolita Adorno on 03-22-2024 Calcium [Mass/Vol] 9.2 mg/dL 8.6-10.3 [facility] Comment on above: Order Comment: HALIMA BAILEY JKW Performed By: #### G LULS #### Point of Care testing , Carbon dioxide, total [Moles /volume] in Serum or PlasmaOrdered By: Lolita Adorno on 03-22-2024 CO2 [Moles/Vol] 25.9 mmol/L 21.0-31.0 [facility] Comment on above: Order Comment: HALIMA BAILEY JKW Performed By: #### G LULS #### Point of Care testing , Chloride [Moles/volume] in S antolin or PlasmaOrdered By: Lolita Adorno on 03-22-2024 Chloride [Moles/Vol] 109 mmol/L High 98-107 [facility] Comment on above: Order Comment: HALIMA RODRIGUEZ. JKW Performed By: #### G LULS #### Point of Care testing , Cholesterol [Mass/volume] in Serum or PlasmaOrdered By: Lolita Adorno on 03-22-2024 Cholesterol [Mass/Vol] 132 mg/dL Low 140-200 [facility] Comment on above: Chol less than 200 m g/dl low riskChol 201-239 mg/dl borderline riskChol 240 mg/dl and greater high risk Order Comment: HALIMA GrullonKW Result Comment: Chol less than 200 mg/dl low risk Chol 201-239 mg/dl borderline risk Chol 240 mg/dl and greater high risk Performed By: #### G LULS #### Point of Care testing , Cholesterol in LDL Calc [Mas s/Vol]Ordered By: Lolita Adorno on 03-22-2024 Cholesterol in LDL [Mass/Vol] 52 mg/dL 0-100 [facility] Comment on above: LDL ATP III CLASSIFI CATIONLDL less than 100 mg/dL OptimalLDL 100-129 mg/dL Near or above optimalLDL 130-159 mg/dL Borderline highLDL 160-189 mg/dL HighLDL greater than 189 mg/dL Very high Cholesterol in VLDL Calc [Ma ss/Vol]Ordered By: Lolita Adorno on 03-22-2024 Cholesterol in VLDL [Mass/Vol] 47 mg/dL [facility] Complete Blood Count Auto Di ffon 03-22-2024 Mean Corpuscular HGB Conc 33.1 g/dL Normal 32.5-35.6 [facility] Comment on above: Performed By: #### G LULS #### Point of Care testing , NRBC% 0.2 /100{WBC} Normal 0-0.5 [facility] Comment on above: Performed By: #### G LULS #### Point of Care testing , Comprehensive Metabolic Pane javier 03-22-2024 Albumin [Mass/Vol] 4.3 g/dL Normal 3.5-5.7 [facility] Comment on above: Order Comment: FASTI NG. JKW Performed By: #### G LULS #### Point of Care testing , GFR/1.73 sq M.predicted MDRD (S/P/Bld) [Vol rate/Area] 30.032 mL/min/{1.73_m2} Normal [facility] Comment on above: Order Comment: FASTI NG. JKW Performed By: #### G LULS #### Point of Care testing , Creatinine [Mass/volume] in Serum or PlasmaOrdered By: Lolita Adorno on 03-22-2024 Creatinine [Mass/Vol] 2.25 mg/dL High 0.70-1.30 [facility] Comment on above: Order Comment: FASTI NG. JKW Performed By: #### G LULS #### Point of Care testing , Erythrocyte distribution wid th [Ratio] by Automated countOrdered By: Lolita Adorno on 03-22-2024 Erythrocyte distribution width (RBC) [Ratio] 13.9 % 12.0-14.8 [facility] Comment on above: Performed By: #### G LAURALS #### Point of Care testing , Erythrocytes [#/volume] in B lood by Automated countOrdered By: Lolita Adorno on 03-22-2024 RBC (Bld) [#/Vol] 4.67 10*6/uL 3.90-5.60 [facility] Comment on above: Performed By: #### G LAURALS #### Point of Care testing , Glucose [Mass/volume] in Ser um or PlasmaOrdered By: Lolita Adorno on 03-22-2024 Glucose [Mass/Vol] 145 mg/dL High 70-100 [facility] Comment on above: ADA recommended refe rence rangeRandom Glucose Reference Range is dependent on time and content of last meal. Glucose of more than 200 mg/dL in a nonstressed, ambulatory subject supports the diagnosis of Diabetes Mellitus. Order Comment: HALIMA RODRIGUEZ. JOSIASW Result Comment: [place] om Glucose Reference Range is dependent on time and content of last meal. Glucose of more than 200 mg/dL in a nonstressed, ambulatory subject supports the diagnosis of Diabetes Mellitus. ADA recommended reference range Performed By: #### G GIRMA #### Point of Care testing , HbA1c HPLC (Bld) [Mass fract ion]on 03-22-2024 HbA1c (Bld) [Mass fraction] 7.9 % [facility] Hematocrit [Volume Fraction] of Blood by Automated countOrdered By: Lolita Adorno on 03-22-2024 Hematocrit (Bld) [Volume fraction] 39.7 % 38.8-50.0 [facility] Comment on above: Performed By: #### G LAURALS #### Point of Care testing , Hemoglobin [Mass/volume] in BloodOrdered By: Lolita Adorno on 03-22-2024 Hemoglobin (Bld) [Mass/Vol] 13.1 g/dL 13.0-17.0 [facility] Comment on above: Performed By: #### G LULS #### Point of Care testing , Leukocytes [#/volume] correc ruben for nucleated erythrocytes in Blood by Automated counOrdered By: Lolita Adorno on 03-22-2024 WBC corrected for nucl RBC Auto (Bld) [#/Vol] 7.6 10*3/uL 4.1-10.5 [facility] Leukocytes [#/volume] in Blo od by Automated countOrdered By: Lolita Adorno on 03-22-2024 WBC (Bld) [#/Vol] 7.6 10*3/uL 4.1-10.5 [facility] Comment on above: Performed By: #### G LULS #### Point of Care testing , Lipid Panelon 03-22-2024 LDL Cholesterol,Calculated 52 mg/dL Normal 0-100 [facility] Comment on above: Order Comment: HALIMA MUJICA Result Comment: LDL ATP III CLASSIFICATION LDL less than 100 mg/dL Optimal LDL 100-129 mg/dL Near or above optimal LDL 130-159 mg/dL Borderline high LDL 160-189 mg/dL High LDL greater than 189 mg/dL Very high Performed By: #### G LULS #### Point of Care testing , Triglyceride w/Reflex 238 mg/dL High 0-149 [facility] [facility] Comment on above: Order Comment: HALIMA MUJICA Result Comment: TRIG ATP III CLASSIFICATION TRIG less than 150 mg/dL Normal TRIG 150-199 mg/dL Borderline high TRIG 200-500 mg/dL High TRIG greater than 500 mg/dL Very high Standard traceable to the Center for Disease Conrtrol and Prevention (CDC) test method. Performed By: #### G LULS #### Point of Care testing , VLDL CHOLESTEROL 47 mg/dL Normal [facility] Comment on above: Order Comment: HALIMA MUJICA Performed By: #### G LULS #### Point of Care testing , Lymphocytes [#/volume] in Bl ood by Automated countOrdered By: Lolita Adorno on 03-22-2024 Lymphocytes (Bld) [#/Vol] 2.1 10*3/uL 1.00-4.8 [facility] Comment on above: Performed By: #### G LULS #### Point of Care testing , Lymphocytes/100 leukocytes i n Blood by Automated countOrdered By: Lolita Adorno on 03-22-2024 Lymphocytes/100 WBC (Bld) 28.1 % . [facility] Comment on above: Performed By: #### G LULS #### Point of Care testing , MCH [Entitic mass] by Automa ruben countOrdered By: Lolita Adorno on 03-22-2024 MCH (RBC) [Entitic mass] 28.1 pg 27.5-35.2 [facility] Comment on above: Performed By: #### G LULS #### Point of Care testing , MCHC Auto (RBC) [Mass/Vol]Or dered By: Lolita Adorno on 03-22-2024 MCHC (RBC) [Mass/Vol] 33.1 g/dL 32.5-35.6 [facility] MCV [Entitic volume] by Auto mated countOrdered By: Lolita Adorno on 03-22-2024 MCV (RBC) [Entitic vol] 85.0 fL 83.5-101 [facility] Comment on above: Performed By: #### G LULS #### Point of Care testing , Neutrophils [#/volume] in Bl ood by Automated countOrdered By: Lolita dAorno on 03-22-2024 Neutrophils (Bld) [#/Vol] 4.3 10*3/uL 1.8-7.7 [facility] Comment on above: Performed By: #### G LULS #### Point of Care testing , No Panel InformationOrdered By: Lolita Adorno on 03-22-2024 Estimated GFR (CKD-EPI) 30.032 mL/Min [facility] Creatinine Clearance (Chem N/A [facility] Nucleated erythrocytes [Pres ence] in Blood by Automated countOrdered By: Lolita Adorno on 03-22-2024 Nucleated RBC Auto Ql (Bld) 0.2 /100{WBC} 0-0.5 [facility] Platelet mean volume [Entiti c volume] in Blood by Automated countOrdered By: Lolita Adorno on 03-22-2024 Platelet mean volume (Bld) [Entitic vol] 9.0 fL 6.6-10.1 [facility] Comment on above: Performed By: #### G LULS #### Point of Care testing , Platelets [#/volume] in Bloo d by Automated countOrdered By: Lolita Adorno on 03-22-2024 Platelets (Bld) [#/Vol] 182 10*3/uL 150-450 [facility] Comment on above: Performed By: #### G LULS #### Point of Care testing , Potassium [Moles/volume] in Serum or PlasmaOrdered By: Lolita Adorno on 03-22-2024 Potassium [Moles/Vol] 4.8 mmol/L 3.5-5.1 [facility] Comment on above: Order Comment: FASTI NG. JKW Performed By: #### G LULS #### Point of Care testing , Protein [Mass/volume] in Ser um or PlasmaOrdered By: Lolita Adorno on 03-22-2024 Protein [Mass/Vol] 6.7 g/dL 6.4-8.9 [facility] Comment on above: Order Comment: FASTI NG. JKW Performed By: #### G LULS #### Point of Care testing , Serum globulin measurement b y calculation (mass/volume)Ordered By: Lolita Adorno on 03-22-2024 Globulin (S) [Mass/Vol] 2.4 g/dL [facility] Comment on above: Order Comment: FASTI NG. JKW Performed By: #### G LULS #### Point of Care testing , Serum or plasma albumin/glob ulin mass ratioOrdered By: Lolita Adorno on 03-22-2024 Albumin/Globulin [Mass ratio] 1.8 {ratio} [facility] Comment on above: Order Comment: FASTI NG. JKW Performed By: #### G LULS #### Point of Care testing , Serum or plasma anion gap de terminationOrdered By: Lolita Adorno on 03-22-2024 Anion gap [Moles/Vol] 10.9 mmol/L 6.0-15.0 [facility] Comment on above: Order Comment: HALIMA MUJICA Performed By: #### G LUWALE #### Point of Care testing , Serum or plasma high density lipoprotein (HDL) cholesterol measurementOrdered By: Lolita Adorno on 03-22-2024 Cholesterol in HDL [Mass/Vol] 32 mg/dL 23-92 [facility] Comment on above: HDL CHOL ATP-III CLA SSIFICATION Cardiovascular RiskHDL > or equal to 60 mg/dL LOWHDL < 40 mg/dL HIGH Order Comment: HALIMA MUJICA Result Comment: HDL CHOL ATP-III CLASSIFICATION Cardiovascular Risk HDL > or equal to 60 mg/dL LOW HDL < 40 mg/dL HIGH Performed By: #### G LAURALS #### Point of Care testing , Serum or plasma total choles terol/high density lipoprotein (HDL) cholesterol mass ratOrdered By: Lolita Adorno on 03-22-2024 Cholesterol.total/Flavia sterol in HDL [Mass ratio] 4.1 {ratio} <5.0 [facility] Comment on above: Order Comment: HALIMA MUJICA Result Comment: PERF ORMED BY: [facility] [address] [place] [address] PATHOLOGIST [employer]ELOPMENT MANAGER LAZARUS MILLER M.D. Performed By: #### G LULS #### Point of Care testing , Sodium [Moles/volume] in Ser um or PlasmaOrdered By: Lolita Adorno on 03-22-2024 Sodium [Moles/Vol] 141 mmol/L 136-145 [facility] Comment on above: Order Comment: HALIMA MUJICA Performed By: #### G LULS #### Point of Care testing , Triglyceride [Mass/volume] i n Serum or PlasmaOrdered By: Lolita Adorno on 03-22-2024 Triglyceride [Mass/Vol] 238 mg/dL High 0-149 [facility] Comment on above: TRIG ATP III CLASSIF ICATIONTRIG less than 150 mg/dL NormalTRIG 150-199 mg/dL Borderline highTRIG 200-500 mg/dL High TRIG greater than 500 mg/dL Very highStandard traceable to the Center for Disease Conrtrol and Prevention (CDC) test method. Urea nitrogen [Mass/volume] in Serum or PlasmaOrdered By: Lolita Adorno on 03-22-2024 Urea nitrogen [Mass/Vol] 38 mg/dL High 7-25 [facility] Comment on above: Order Comment: HALIMA MUJICA Performed By: #### G LUWALE #### Point of Care testing , HbA1c HPLC (Bld) [Mass fract ion]on 12-25-2023 HbA1c (Bld) [Mass fraction] 10.4 % [facility] Alanine aminotransferase [En zymatic activity/volume] in Serum or PlasmaOrdered By: Gabriela Florian on 10-17-2023 ALT [Catalytic activity/Vol] 14 U/L Normal 7-52 [facility] Comment on above: Performed By: #### A LT, LIPID, AST #### [facility] [address] [place] [id number] [place] Aspartate aminotransferase [ Enzymatic activity/volume] in Serum or PlasmaOrdered By: Gabriela Florian on 10-17-2023 AST [Catalytic activity/Vol] 15 U/L Normal 13-39 [facility] Comment on above: Performed By: #### A LT, LIPID, AST #### [facility] [address] [place] [address] [place] Cholesterol [Mass/volume] in Serum or PlasmaOrdered By: Gabriela Florian on 10-17-2023 Cholesterol [Mass/Vol] 119 mg/dL Low 140-200 [facility] Comment on above: Chol less than 200 m g/dl low riskChol 201-239 mg/dl borderline riskChol 240 mg/dl and greater high risk Result Comment: Chol less than 200 mg/dl low risk Chol 201-239 mg/dl borderline risk Chol 240 mg/dl and greater high risk Performed By: #### A LT, LIPID, AST #### [facility] [address] [place] [id number] [place] Cholesterol in LDL Calc [Mas s/Vol]Ordered By: Gabriela Florian on 10-17-2023 Cholesterol in LDL [Mass/Vol] 16 mg/dL 0-100 [facility] Comment on above: LDL ATP III CLASSIFI CATIONLDL less than 100 mg/dL OptimalLDL 100-129 mg/dL Near or above optimalLDL 130-159 mg/dL Borderline highLDL 160-189 mg/dL HighLDL greater than 189 mg/dL Very high Cholesterol in VLDL Calc [Ma ss/Vol]Ordered By: Gabriela Florian on 10-17-2023 Cholesterol in VLDL [Mass/Vol] 76 mg/dL [facility] Lipid Panelon 10-17-2023 LDL Cholesterol,Calculated 16 mg/dL Normal 0-100 [facility] Comment on above: Result Comment: LDL ATP III CLASSIFICATION LDL less than 100 mg/dL Optimal LDL 100-129 mg/dL Near or above optimal LDL 130-159 mg/dL Borderline high LDL 160-189 mg/dL High LDL greater than 189 mg/dL Very high Performed By: #### A LT, LIPID, AST #### [facility] [address] Triglyceride w/Reflex 382 mg/dL High 0-149 [facility] Comment on above: Result Comment: TRIG ATP III CLASSIFICATION TRIG less than 150 mg/dL Normal TRIG 150-199 mg/dL Borderline high TRIG 200-500 mg/dL High TRIG greater than 500 mg/dL Very high Standard traceable to the Center for Disease Conrtrol and Prevention (CDC) test method. Performed By: #### A LT, LIPID, AST #### [facility] [address] [place] [id number] [place] VLDL CHOLESTEROL 76 mg/dL Normal [facility] Comment on above: Performed By: #### A LT, LIPID, AST #### [facility] [address] [place] [id number] [place] Serum or plasma high density lipoprotein (HDL) cholesterol measurementOrdered By: Gabriela Florian on 10-17-2023 Cholesterol in HDL [Mass/Vol] 27 mg/dL Normal 23-92 [facility] Comment on above: HDL CHOL ATP-III CLA SSIFICATION Cardiovascular RiskHDL > or equal to 60 mg/dL LOWHDL < 40 mg/dL HIGH Result Comment: HDL CHOL ATP-III CLASSIFICATION Cardiovascular Risk HDL > or equal to 60 mg/dL LOW HDL < 40 mg/dL HIGH Performed By: #### A LT, LIPID, AST #### [facility] [address] Serum or plasma total choles terol/high density lipoprotein (HDL) cholesterol mass ratOrdered By: Gabriela Florian on 10-17-2023 Cholesterol.total/Flavia sterol in HDL [Mass ratio] 4.4 {ratio} Normal <5.0 [facility] Comment on above: Result Comment: PERF ORMED BY: [place] [address] PATHOLOGIST [employer] BUSINESS DEVELOPMENT MANAGER LAZARUS MILLER M.D. Performed By: #### A LT, LIPID, AST #### [address] Triglyceride [Mass/volume] i n Serum or PlasmaOrdered By: Gabriela Florian on 10-17-2023 Triglyceride [Mass/Vol] 382 mg/dL 0-149 [facility] Comment on above: TRIG ATP III CLASSIF ICATIONTRIG less than 150 mg/dL NormalTRIG 150-199 mg/dL Borderline highTRIG 200-500 mg/dL High TRIG greater than 500 mg/dL Very highStandard traceable to the Center for Disease Conrtrol and Prevention (CDC) test method. A1C HEMOGLOBINon 09-23-2023 HbA1c (Bld) [Mass fraction] 7.5 % [employer] Other Alanine aminotransferase [En zymatic activity/volume] in Serum or PlasmaOrdered By: Lolita Adorno on 09-23-2023 ALT [Catalytic activity/Vol] 20 U/L Normal 7-52 [facility] Comment on above: Order Comment: Reaso n for Exam Type 2 diabetes mellitus with diabetic chronic kidney diseas Performed By: #### A LT, LIPID, AST #### [facility] [address] Albumin [Mass/volume] in Ser um or Plasma by Bromocresol green (BCG) dye binding methoOrdered By: Lolita Adorno on 09-23-2023 Albumin BCG dye [Mass/Vol] 3.9 g/dL 3.5-5.7 [facility] Alkaline phosphatase [Enzyma tic activity/volume] in Serum or PlasmaOrdered By: Lolita Adorno on 09-23-2023 ALP [Catalytic activity/Vol] 117 U/L High 34-104 [facility] Comment on above: Order Comment: Reaso n for Exam Type 2 diabetes mellitus with diabetic chronic kidney diseas Result Comment: PERF ORMED BY: [place] [address] PATHOLOGIST [employer] DEVELOPMENT MANAGER LAZARUS MILLER M.D. Performed By: #### A LT, LIPID, AST #### [facility] [address] [place] [address] Aspartate aminotransferase [ Enzymatic activity/volume] in Serum or PlasmaOrdered By: Lolita Adorno on 09-23-2023 AST [Catalytic activity/Vol] 15 U/L Normal 13-39 [facility] Comment on above: Order Comment: Reaso n for Exam Type 2 diabetes mellitus with diabetic chronic kidney diseas Performed By: #### A LT, LIPID, AST #### [facility] [address] [place] [address] Automated basophil %Ordered By: Lolita Adorno on 09-23-2023 Basophils/100 WBC (Bld) 0.8 % Normal . [facility] Comment on above: Order Comment: Reaso n for Exam Type 2 diabetes mellitus with diabetic chronic kidney diseas Performed By: #### A LT, LIPID, AST #### [facility] [address] [place] [address] Automated basophil countOrde red By: Lolita Adorno on 09-23-2023 Basophils (Bld) [#/Vol] 0.1 10*3/uL Normal 0.0-0.2 [facility] Comment on above: Order Comment: Reaso n for Exam Type 2 diabetes mellitus with diabetic chronic kidney diseas Result Comment: PERF ORMED BY: [place] [address] PATHOLOGIST [employer] BUSINESS DEVELOPMENT MANAGER LAZARUS MILLER M.D. Performed By: #### A LT, LIPID, AST #### [facility] [address] Automated blood monocyte cou ntOrdered By: Lolita Schwerer on 09-23-2023 Monocytes (Bld) [#/Vol] 0.8 10*3/uL Normal 0.0-0.8 [facility] Comment on above: Order Comment: Reaso n for Exam Type 2 diabetes mellitus with diabetic chronic kidney diseas Performed By: #### A LT, LIPID, AST #### [address] Automated eosinophil %Ordere d By: Lolita Schwerer on 09-23-2023 Eosinophils/100 WBC (Bld) 3.7 % Normal . [facility] Comment on above: Order Comment: Reaso n for Exam Type 2 diabetes mellitus with diabetic chronic kidney diseas Performed By: #### A LT, LIPID, AST #### [facility] [address] [place] [address] Automated eosinophil countOr dered By: Lolita Schwerer on 09-23-2023 Eosinophils (Bld) [#/Vol] 0.3 10*3/uL Normal 0.0-0.45 [facility] Comment on above: Order Comment: Reaso n for Exam Type 2 diabetes mellitus with diabetic chronic kidney diseas Performed By: #### A LT, LIPID, AST #### [facility] [address] [place] [address] Automated monocyte %Ordered By: Lolita Mendeserer on 09-23-2023 Monocytes/100 WBC (Bld) 9.5 % Normal . [facility] Comment on above: Order Comment: Reaso n for Exam Type 2 diabetes mellitus with diabetic chronic kidney diseas Performed By: #### A LT, LIPID, AST #### [facility] [address] [place] [address] Automated neutrophil %Ordere d By: Lolita Schwerer on 09-23-2023 Neutrophils/100 WBC (Bld) 66.7 % Normal . [facility] Comment on above: Order Comment: Reaso n for Exam Type 2 diabetes mellitus with diabetic chronic kidney diseas Performed By: #### A LT, LIPID, AST #### [facility] [address] Bilirubin.total [Mass/volume ] in Serum or PlasmaOrdered By: Lolita Adorno on 09-23-2023 Bilirubin [Mass/Vol] 0.5 mg/dL Normal 0.3-1.0 [facility] Comment on above: Order Comment: Reaso n for Exam Type 2 diabetes mellitus with diabetic chronic kidney diseas Performed By: #### A LT, LIPID, AST #### [facility] [address] [place] [address] Calcium [Mass/volume] in Ser um or PlasmaOrdered By: Lolita Adorno on 09-23-2023 Calcium [Mass/Vol] 8.9 mg/dL Normal 8.6-10.3 [facility] Comment on above: Order Comment: Reaso n for Exam Type 2 diabetes mellitus with diabetic chronic kidney diseas Performed By: #### A LT, LIPID, AST #### [facility] [address] [place] [address] Carbon dioxide, total [Moles /volume] in Serum or PlasmaOrdered By: Lolita Adorno on 09-23-2023 CO2 [Moles/Vol] 28.9 mmol/L Normal 21.0-31.0 [facility] Comment on above: Order Comment: Reaso n for Exam Type 2 diabetes mellitus with diabetic chronic kidney diseas Performed By: #### A LT, LIPID, AST #### [facility] [address] [place] [address] [place] Chloride [Moles/volume] in S antolin or PlasmaOrdered By: Lolita Adorno on 09-23-2023 Chloride [Moles/Vol] 107 mmol/L Normal 98-107 [facility] Comment on above: Order Comment: Reaso n for Exam Type 2 diabetes mellitus with diabetic chronic kidney diseas Performed By: #### A LT, LIPID, AST #### [facility] [address] [place] [address] Complete Blood Count Auto Di ffon 09-23-2023 Basophils (Bld) [#/Vol] [id number] 10*3/uL Normal 0.0-0.2 10*3/uL [facility] Other Basophils/100 WBC (Bld) 0.800 % . % [facility] [employer] Other Eosinophils (Bld) [#/Vol] 0.114152512 10*3/uL Normal 0.0-0.45 10*3/uL [facility] Other Eosinophils/100 WBC (Bld) 3.700 % . % [employer] Other Erythrocyte distribution width (RBC) [Ratio] 13.400 % Normal 12.0-14.8 % [employer] Other Hematocrit (Bld) [Volume fraction] 36.300 % Low 38.8-50.0 % [employer] Other Hemoglobin (Bld) [Mass/Vol] 12.906880 g/dL Low 13.0-17.0 g/dL [employer] Other Lymphocytes (Bld) [#/Vol] 1.549845622 10*3/uL Normal 1.00-4.8 10*3/uL [facility] Other Lymphocytes/100 WBC (Bld) 19.300 % . % [employer] Other MCH (RBC) [Entitic mass] 28.1000 pg Normal 27.5-35.2 pg [employer] Other MCV (RBC) [Entitic vol] 84.8000 fL Normal 83.5 -101 fL [facility] Other Monocytes (Bld) [#/Vol] 0.891551572 10*3/uL Normal 0.0-0.8 10*3/uL [facility] Other Monocytes/100 WBC (Bld) 9.500 % . % [facility] [employer] Other Neutrophils (Bld) [#/Vol] 5.013696967 10*3/uL Normal 1.8-7.7 10*3/uL [facility] Other Neutrophils/100 WBC (Bld) 66.700 % . % [employer] Other Platelet mean volume (Bld) [Entitic vol] 8.8000 fL Normal 6.6-10.1 fL [facility] Other WBC (Bld) [#/Vol] 8.952176826 10*3/uL Normal 4.1 -10.5 10*3/uL [facility] Other Complete Blood Count Auto Diff 8.2 10*3/uL Normal 4.1-10.5 10*3/uL [facility] Other Complete Blood Count Auto Diff 33.2 g/dL Normal 32.5-35.6 g/dL [facility] Other Complete Blood Count Auto Diff 0.1 /100{WBC} Normal 0-0.5 /100{WBC} [employer] Other Mean Corpuscular HGB Conc 33.2 g/dL Normal 32.5-35.6 [facility] Comment on above: Order Comment: Reaso n for Exam Type 2 diabetes mellitus with diabetic chronic kidney diseas Performed By: #### A LT, LIPID, AST #### [facility] [address] NRBC% 0.1 /100{WBC} Normal 0-0.5 [facility] Comment on above: Order Comment: Reaso n for Exam Type 2 diabetes mellitus with diabetic chronic kidney diseas Performed By: #### A LT, LIPID, AST #### [facility] [address] [place] [id number] [place] Comprehensive Metabolic Pane javier 09-23-2023 Albumin [Mass/Vol] 3.9 g/dL Normal 3.5-5.7 [facility] Comment on above: Order Comment: Reaso n for Exam Type 2 diabetes mellitus with diabetic chronic kidney diseas Performed By: #### A LT, LIPID, AST #### [facility] [address] GFR/1.73 sq M.predicted MDRD (S/P/Bld) [Vol rate/Area] 41.746 mL/min/{1.73_m2} Normal [facility] Comment on above: Order Comment: Reaso n for Exam Type 2 diabetes mellitus with diabetic chronic kidney diseas Performed By: #### A LT, LIPID, AST #### [facility] [address] Creatinine [Mass/volume] in Serum or PlasmaOrdered By: Lolita Margor on 09-23-2023 Creatinine [Mass/Vol] 1.71 mg/dL High 0.70-1.30 [facility] Comment on above: Order Comment: Reaso n for Exam Type 2 diabetes mellitus with diabetic chronic kidney diseas Performed By: #### A LT, LIPID, AST #### [facility] [address] [place] [address] Erythrocyte distribution wid th [Ratio] by Automated countOrdered By: Lolita Adorno on 09-23-2023 Erythrocyte distribution width (RBC) [Ratio] 13.4 % Normal 12.0-14.8 [facility] Comment on above: Order Comment: Reaso n for Exam Type 2 diabetes mellitus with diabetic chronic kidney diseas Performed By: #### A LT, LIPID, AST #### [facility] [address] [place] [address] [place] Erythrocytes [#/volume] in B lood by Automated countOrdered By: Lolita Vaughnerer on 09-23-2023 RBC (Bld) [#/Vol] 4.28 10*6/uL Normal 3.90-5.60 [facility] Comment on above: Order Comment: Reaso n for Exam Type 2 diabetes mellitus with diabetic chronic kidney diseas Performed By: #### A LT, LIPID, AST #### [facility] [address] [place] [address] [place] Glucose [Mass/volume] in Ser um or PlasmaOrdered By: Lolita Schwerer on 09-23-2023 Glucose [Mass/Vol] 212 mg/dL High 70-100 [facility] Comment on above: ADA recommended refe rence rangeRandom Glucose Reference Range is dependent on time and content of last meal. Glucose of more than 200 mg/dL in a nonstressed, ambulatory subject supports the diagnosis of Diabetes Mellitus. Order Comment: Reaso n for Exam Type 2 diabetes mellitus with diabetic chronic kidney diseas Result Comment: [place] om Glucose Reference Range is dependent on time and content of last meal. Glucose of more than 200 mg/dL in a nonstressed, ambulatory subject supports the diagnosis of Diabetes Mellitus. ADA recommended reference range Performed By: #### A LT, LIPID, AST #### [facility] [address] [place] [id number] [place] HbA1c (Bld) [Mass fraction]o n 09-23-2023 A1C HEMOGLOBIN [employer] Other Hematocrit [Volume Fraction] of Blood by Automated countOrdered By: Lolita Adorno on 09-23-2023 Hematocrit (Bld) [Volume fraction] 36.3 % Low 38.8-50.0 [facility] Comment on above: Order Comment: Reaso n for Exam Type 2 diabetes mellitus with diabetic chronic kidney diseas Performed By: #### A LT, LIPID, AST #### [facility] [address] [place] [id number] [place] Hemoglobin [Mass/volume] in BloodOrdered By: Lolita Adorno on 09-23-2023 Hemoglobin (Bld) [Mass/Vol] 12.0 g/dL Low 13.0-17.0 [facility] Comment on above: Order Comment: Reaso n for Exam Type 2 diabetes mellitus with diabetic chronic kidney diseas Performed By: #### A LT, LIPID, AST #### [facility] [address] [place] [id number] [place] Leukocytes [#/volume] correc ruben for nucleated erythrocytes in Blood by Automated counOrdered By: Lolita Adorno on 09-23-2023 WBC corrected for nucl RBC Auto (Bld) [#/Vol] 8.2 10*3/uL 4.1-10.5 [facility] Leukocytes [#/volume] in Blo od by Automated countOrdered By: Lolita Adorno on 09-23-2023 WBC (Bld) [#/Vol] 8.2 10*3/uL Normal 4.1-10.5 [facility] Comment on above: Order Comment: Reaso n for Exam Type 2 diabetes mellitus with diabetic chronic kidney diseas Performed By: #### A LT, LIPID, AST #### [facility] [address] [place] [address] [place] Lymphocytes [#/volume] in Bl ood by Automated countOrdered By: Lolita Adorno on 09-23-2023 Lymphocytes (Bld) [#/Vol] 1.6 10*3/uL Normal 1.00-4.8 [facility] Comment on above: Order Comment: Reaso n for Exam Type 2 diabetes mellitus with diabetic chronic kidney diseas Performed By: #### A LT, LIPID, AST #### [facility] [address] [place] [address] [place] Lymphocytes/100 leukocytes i n Blood by Automated countOrdered By: Lolita Adorno on 09-23-2023 Lymphocytes/100 WBC (Bld) 19.3 % Normal . [facility] Comment on above: Order Comment: Reaso n for Exam Type 2 diabetes mellitus with diabetic chronic kidney diseas Performed By: #### A LT, LIPID, AST #### [facility] [address] [place] [address] [place] MCH [Entitic mass] by Automa ruben countOrdered By: Lolita Adorno on 09-23-2023 MCH (RBC) [Entitic mass] 28.1 pg Normal 27.5-35.2 [facility] Comment on above: Order Comment: Reaso n for Exam Type 2 diabetes mellitus with diabetic chronic kidney diseas Performed By: #### A LT, LIPID, AST #### [facility] [address] [place] [address] [place] MCHC Auto (RBC) [Mass/Vol]Or dered By: Lolita Adorno on 09-23-2023 MCHC (RBC) [Mass/Vol] 33.2 g/dL 32.5-35.6 [facility] [facility] MCV [Entitic volume] by Auto mated countOrdered By: Lolita Adorno on 09-23-2023 MCV (RBC) [Entitic vol] 84.8 fL Normal 83.5-101 [facility] Comment on above: Order Comment: Reaso n for Exam Type 2 diabetes mellitus with diabetic chronic kidney diseas Performed By: #### A LT, LIPID, AST #### [facility] [address] [place] [address] [place] Neutrophils [#/volume] in Bl ood by Automated countOrdered By: Lolita Adorno on 09-23-2023 Neutrophils (Bld) [#/Vol] 5.5 10*3/uL Normal 1.8-7.7 [facility] Comment on above: Order Comment: Reaso n for Exam Type 2 diabetes mellitus with diabetic chronic kidney diseas Performed By: #### A LT, LIPID, AST #### [facility] [address] No Panel InformationOrdered By: Lolita Adorno on 09-23-2023 Estimated GFR (CKD-EPI) 41.746 mL/Min [facility] Creatinine Clearance (Chem N/A [facility] Nucleated erythrocytes [Pres ence] in Blood by Automated countOrdered By: Lolita Adorno on 09-23-2023 Nucleated RBC Auto Ql (Bld) 0.1 /100{WBC} 0-0.5 [facility] Platelet mean volume [Entiti c volume] in Blood by Automated countOrdered By: Lolita Adorno on 09-23-2023 Platelet mean volume (Bld) [Entitic vol] 8.8 fL Normal 6.6-10.1 [facility] Comment on above: Order Comment: Reaso n for Exam Type 2 diabetes mellitus with diabetic chronic kidney diseas Performed By: #### A LT, LIPID, AST #### [facility] [address] [place] [address] [place] Platelets [#/volume] in Bloo d by Automated countOrdered By: Lolita Adorno on 09-23-2023 Platelets (Bld) [#/Vol] 194 10*3/uL Normal 150-450 [facility] Comment on above: Order Comment: Reaso n for Exam Type 2 diabetes mellitus with diabetic chronic kidney diseas Performed By: #### A LT, LIPID, AST #### [facility] [address] Potassium [Moles/volume] in Serum or PlasmaOrdered By: Lolita Schwerer on 09-23-2023 Potassium [Moles/Vol] 4.3 mmol/L Normal 3.5-5.1 [facility] Comment on above: Order Comment: Reaso n for Exam Type 2 diabetes mellitus with diabetic chronic kidney diseas Performed By: #### A LT, LIPID, AST #### [facility] [address] [place] [address] [place] Protein [Mass/volume] in Ser um or PlasmaOrdered By: Lolita Mendeserer on 09-23-2023 Protein [Mass/Vol] 6.2 g/dL Low 6.4-8.9 [facility] Comment on above: Order Comment: Reaso n for Exam Type 2 diabetes mellitus with diabetic chronic kidney diseas Performed By: #### A LT, LIPID, AST #### [facility] [address] [place] [address] Serum globulin measurement b y calculation (mass/volume)Ordered By: Lolita Adorno on 09-23-2023 Globulin (S) [Mass/Vol] 2.3 g/dL Normal [facility] Comment on above: Order Comment: Reaso n for Exam Type 2 diabetes mellitus with diabetic chronic kidney diseas Performed By: #### A LT, LIPID, AST #### [facility] [address] [place] [address] Serum or plasma albumin/glob ulin mass ratioOrdered By: Lolita Schwerer on 09-23-2023 Albumin/Globulin [Mass ratio] 1.7 {ratio} Normal [facility] Comment on above: Order Comment: Reaso n for Exam Type 2 diabetes mellitus with diabetic chronic kidney diseas Performed By: #### A LT, LIPID, AST #### [facility] [address] [place] [address] Serum or plasma anion gap de terminationOrdered By: Lolita Schwerer on 09-23-2023 Anion gap [Moles/Vol] 9.4 mmol/L Normal 6.0-15.0 [facility] Comment on above: Order Comment: Reaso n for Exam Type 2 diabetes mellitus with diabetic chronic kidney diseas Performed By: #### A LT, LIPID, AST #### [facility] [address] [place] [address] [place] Sodium [Moles/volume] in Ser um or PlasmaOrdered By: Lolita Adorno on 09-23-2023 Sodium [Moles/Vol] 141 mmol/L Normal 136-145 [facility] Comment on above: Order Comment: Reaso n for Exam Type 2 diabetes mellitus with diabetic chronic kidney diseas Performed By: #### A LT, LIPID, AST #### [facility] [address] [place] [address] [place] Urea nitrogen [Mass/volume] in Serum or PlasmaOrdered By: Lolita Adorno on 09-23-2023 Urea nitrogen [Mass/Vol] 20 mg/dL Normal 7-25 [facility] Comment on above: Order Comment: Reaso n for Exam Type 2 diabetes mellitus with diabetic chronic kidney diseas Performed By: #### A LT, LIPID, AST #### [facility] [address] [place] [address] XR hand RT min 3V*on 023 XR hand RT min 3V* [facility] [place] [address] [place] [address] XRay Report Signed Patient: Dave Lugo MR#: [id number] : 1950 Acct:[id number] Age/Sex: 73 / M ADM Date: 09/18/23 [place] [facility] [place]: Type: [facility] Attending Dr: Prieto Santo MD Copies to: Prieto Santo MD Ordering Provider: Prieto Santo MD Date of Service: 09/18/23 XR/XR hand RT min 3V*: Displaced fracture of neck of fifth metacarpal bone, right h 3 views RIGHT hand plain film COMPARISON: 08/21/23 HISTORY: Status post RIGHT 5th metacarpal fracture ACUTE FINDINGS: Increase callus formation. Stable alignment. DEGENERATIVE CHANGE: Similar degeneration. SOFT TISSUE FINDINGS: Unremarkable JOINT EFFUSION: None POSTOP CHANGES: None BONY MINERALIZATION: Decreased bony mineralization XR/XR hand RT min 3V* IMPRESSION: Healing fracture Impression dictated by: Rob Chung M.D.09/18/2023 12:30 PM Dictation Location: [place] [address] Transcribed By: [facility] 09/18/23 1230 Dictated By: Rob Chung DO 09/18/23 1228 Signed By: 09/18/23 1230 Normal [facility] Automated basophil %Ordered By: Barbie Osborn on 09-11-2023 Basophils/100 WBC (Bld) 0.5 % Normal . [facility] Comment on above: Performed By: #### G LULS #### Point of Care testing , Automated basophil countOrde red By: Barbie Osborn on 09-11-2023 Basophils (Bld) [#/Vol] 0.0 10*3/uL Normal 0.0-0.2 [facility] Comment on above: Result Comment: PERF ORMED BY: [facility] [address] [place] [address] PATHOLOGIST [employer] BUSINESS DEVELOPMENT MANAGER LAZARUS MILLER M.D. Performed By: #### G LULS #### Point of Care testing , Automated blood monocyte cou ntOrdered By: Barbie Osborn on 09-11-2023 Monocytes (Bld) [#/Vol] 1.0 10*3/uL High 0.0-0.8 [facility] Comment on above: Performed By: #### G LULS #### Point of Care testing , Automated eosinophil %Ordere d By: Barbie Osborn on 09-11-2023 Eosinophils/100 WBC (Bld) 4.4 % Normal . [facility] Comment on above: Performed By: #### G LULS #### Point of Care testing , Automated eosinophil countOr dered By: Barbie Osborn on 09-11-2023 Eosinophils (Bld) [#/Vol] 0.4 10*3/uL Normal 0.0-0.45 [facility] Comment on above: Performed By: #### G LULS #### Point of Care testing , Automated monocyte %Ordered By: Barbie Osborn on 09-11-2023 Monocytes/100 WBC (Bld) 12.6 % Normal . [facility] Comment on above: Performed By: #### G LULS #### Point of Care testing , Automated neutrophil %Ordere d By: Barbie Osborn on 09-11-2023 Neutrophils/100 WBC (Bld) 60.7 % Normal . [facility] Comment on above: Performed By: #### G LULS #### Point of Care testing , Basic Metabolic Panelon 120 Creatinine Clr Calc Pharmacy 27.23 Normal [facility] Comment on above: Result Comment: PERF ORMED BY: [facility] [place] [address] PATHOLOGIST [employer] BUSINESS DEVELOPMENT MANAGER LAZARUS MILLER M.D. Performed By: #### G LULS #### Point of Care testing , GFR/1.73 sq M.predicted MDRD (S/P/Bld) [Vol rate/Area] 31.193 mL/min/{1.73_m2} Normal [facility] Comment on above: Performed By: #### G LULS #### Point of Care testing , Calcium [Mass/volume] in Ser um or PlasmaOrdered By: Barbie Osborn on 09-11-2023 Calcium [Mass/Vol] 8.4 mg/dL Low 8.6-10.3 [facility] Comment on above: Performed By: #### G LULS #### Point of Care testing , Capillary blood glucose kirk urement by glucometer (mass/volume)Ordered By: Barbie Osborn on 09-11-2023 Glucose [Mass/Vol] 304 mg/dL Normal [facility] Comment on above: Random Glucose Refer ence Range is dependent on time and content of last meal. Glucose of more than 200 mg/dL in a nonstressed, ambulatory subject supports the diagnosis of Diabetes Mellitus. Result Comment: [place] [facility] Glucose Reference Range is dependent on time and content of last meal. Glucose of more than 200 mg/dL in a nonstressed, ambulatory subject supports the diagnosis of Diabetes Mellitus. PERFORMED BY: [facility] [address] [place] [address] PATHOLOGIST RETAIL BUSINESS DEVELOPMENT MANAGER LAZARUS MILLER M.D. Performed By: #### A LT, LIPID, AST #### [facility] [address] Carbon dioxide, total [Moles /volume] in Serum or PlasmaOrdered By: Barbie Osborn on 09-11-2023 CO2 [Moles/Vol] 24.0 mmol/L Normal 21.0-31.0 [facility] Comment on above: Performed By: #### G LULS #### Point of Care testing , Chloride [Moles/volume] in S antolin or PlasmaOrdered By: Barbie Osborn on 09-11-2023 Chloride [Moles/Vol] 109 mmol/L High 98-107 [facility] Comment on above: Performed By: #### G LULS #### Point of Care testing , Complete Blood Count Auto Di ffon 09-11-2023 Mean Corpuscular HGB Conc 34.3 g/dL Normal 32.5-35.6 [facility] Comment on above: Performed By: #### G LULS #### Point of Care testing , NRBC% 0.0 /100{WBC} Normal 0-0.5 [facility] Comment on above: Performed By: #### G LULS #### Point of Care testing , Creatinine [Mass/volume] in Serum or PlasmaOrdered By: Barbie Osborn on 09-11-2023 Creatinine [Mass/Vol] 2.18 mg/dL High 0.70-1.30 [facility] Comment on above: Performed By: #### G LULS #### Point of Care testing , Erythrocyte distribution wid th [Ratio] by Automated countOrdered By: Barbie Osborn on 09-11-2023 Erythrocyte distribution width (RBC) [Ratio] 13.2 % Normal 12.0-14.8 [facility] Comment on above: Performed By: #### G LULS #### Point of Care testing , Erythrocytes [#/volume] in B lood by Automated countOrdered By: Barbie Osborn on 09-11-2023 RBC (Bld) [#/Vol] 3.64 10*6/uL Low 3.90-5.60 [facility] Comment on above: Performed By: #### G GIRMA #### Point of Care testing , Glucose [Mass/volume] in Ser um or PlasmaOrdered By: Barbie Osborn on 09-11-2023 Glucose [Mass/Vol] 136 mg/dL High 70-100 [facility] Comment on above: ADA recommended refe rence rangeRandom Glucose Reference Range is dependent on time and content of last meal. Glucose of more than 200 mg/dL in a nonstressed, ambulatory subject supports the diagnosis of Diabetes Mellitus. Result Comment: [place] [facility] Glucose Reference Range is dependent on time and content of last meal. Glucose of more than 200 mg/dL in a nonstressed, ambulatory subject supports the diagnosis of Diabetes Mellitus. ADA recommended reference range Performed By: #### G GIRMA #### Point of Care testing , Hematocrit [Volume Fraction] of Blood by Automated countOrdered By: Barbie Osborn on 09-11-2023 Hematocrit (Bld) [Volume fraction] 30.6 % Low 38.8-50.0 [facility] Comment on above: Performed By: #### G GIRMA #### Point of Care testing , Hemoglobin [Mass/volume] in BloodOrdered By: Barbie Osborn on 09-11-2023 Hemoglobin (Bld) [Mass/Vol] 10.5 g/dL Low 13.0-17.0 [facility] Comment on above: Performed By: #### G GIRMA #### Point of Care testing , Leukocytes [#/volume] correc ruben for nucleated erythrocytes in Blood by Automated counOrdered By: Barbie Osborn on 09-11-2023 WBC corrected for nucl RBC Auto (Bld) [#/Vol] 8.0 10*3/uL 4.1-10.5 [facility] Leukocytes [#/volume] in Blo od by Automated countOrdered By: Barbie Osborn on 09-11-2023 WBC (Bld) [#/Vol] 8.0 10*3/uL Normal 4.1-10.5 [facility] Comment on above: Performed By: #### G LULS #### Point of Care testing , Lymphocytes [#/volume] in Bl ood by Automated countOrdered By: Barbie Osborn on 09-11-2023 Lymphocytes (Bld) [#/Vol] 1.7 10*3/uL Normal 1.00-4.8 [facility] Comment on above: Performed By: #### G LULS #### Point of Care testing , Lymphocytes/100 leukocytes i n Blood by Automated countOrdered By: Barbie Osborn on 09-11-2023 Lymphocytes/100 WBC (Bld) 21.8 % Normal . [facility] Comment on above: Performed By: #### G LULS #### Point of Care testing , MCH [Entitic mass] by Automa ruben countOrdered By: Barbie Osborn on 09-11-2023 MCH (RBC) [Entitic mass] 28.9 pg Normal 27.5-35.2 [facility] Comment on above: Performed By: #### G LULS #### Point of Care testing , MCHC Auto (RBC) [Mass/Vol]Or dered By: Barbie Osborn on 09-11-2023 MCHC (RBC) [Mass/Vol] 34.3 g/dL 32.5-35.6 [facility] MCV [Entitic volume] by Auto mated countOrdered By: Barbie Osborn on 09-11-2023 MCV (RBC) [Entitic vol] 84.1 fL Normal 83.5-101 [facility] Comment on above: Performed By: #### G LULS #### Point of Care testing , Neutrophils [#/volume] in Bl ood by Automated countOrdered By: Barbie Osborn on 09-11-2023 Neutrophils (Bld) [#/Vol] 4.8 10*3/uL Normal 1.8-7.7 [facility] Comment on above: Performed By: #### G LULS #### Point of Care testing , No Panel InformationOrdered By: Barbie Osborn on 09-11-2023 Estimated GFR (CKD-EPI) 31.193 mL/Min [facility] Creatinine Clearance (Chem 27.23 [facility] Nucleated erythrocytes [Pres ence] in Blood by Automated countOrdered By: Barbie Osborn on 09-11-2023 Nucleated RBC Auto Ql (Bld) 0.0 /100{WBC} 0-0.5 [facility] Platelet mean volume [Entiti c volume] in Blood by Automated countOrdered By: Barbie Osborn on 09-11-2023 Platelet mean volume (Bld) [Entitic vol] 9.0 fL Normal 6.6-10.1 [facility] Comment on above: Performed By: #### G LULS #### Point of Care testing , Platelets [#/volume] in Bloo d by Automated countOrdered By: Barbie Osborn on 09-11-2023 Platelets (Bld) [#/Vol] 158 10*3/uL Normal 150-450 [facility] Comment on above: Performed By: #### G LULS #### Point of Care testing , Potassium [Moles/volume] in Serum or PlasmaOrdered By: Barbie Osborn on 09-11-2023 Potassium [Moles/Vol] 4.2 mmol/L Normal 3.5-5.1 [facility] Comment on above: Performed By: #### G LULS #### Point of Care testing , Serum or plasma anion gap de terminationOrdered By: Barbie Osborn on 09-11-2023 Anion gap [Moles/Vol] 10.2 mmol/L Normal 6.0-15.0 [facility] Comment on above: Performed By: #### G LULS #### Point of Care testing , Sodium [Moles/volume] in Ser um or PlasmaOrdered By: Barbie Osborn on 09-11-2023 Sodium [Moles/Vol] 139 mmol/L Normal 136-145 [facility] Comment on above: Performed By: #### G LULS #### Point of Care testing , Urea nitrogen [Mass/volume] in Serum or PlasmaOrdered By: Barbie Osborn on 09-11-2023 Urea nitrogen [Mass/Vol] 38 mg/dL High 7-25 [facility] Comment on above: Performed By: #### G LULS #### Point of Care testing , Amylase [Enzymatic activity/ volume] in Serum or PlasmaOrdered By: Joao Colye on 09-10-2023 Amylase [Catalytic activity/Vol] 37 U/L Normal 29-103 [facility] Comment on above: Performed By: #### G LULS #### Point of Care testing , Basic Metabolic Panelon 12-0 Anion gap [Moles/Vol] 10.7 mmol/L Normal 6.0-15.0 [facility] Comment on above: Performed By: #### G LULS #### Point of Care testing , Calcium [Mass/Vol] 8.2 mg/dL Low 8.6-10.3 [facility] Comment on above: Performed By: #### G LULS #### Point of Care testing , Chloride [Moles/Vol] 107 mmol/L Normal 98-107 [facility] Comment on above: Performed By: #### G LULS #### Point of Care testing , CO2 [Moles/Vol] 23.3 mmol/L Normal 21.0-31.0 [facility] Comment on above: Performed By: #### G LULS #### Point of Care testing , Creatinine [Mass/Vol] 2.50 mg/dL Significan t change up 0.70-1.30 [facility] Comment on above: Performed By: #### G LULS #### Point of Care testing , Creatinine Clr Calc Pharmacy 23.75 Normal [facility] Comment on above: Performed By: #### G LULS #### Point of Care testing , GFR/1.73 sq M.predicted MDRD (S/P/Bld) [Vol rate/Area] 26.466 mL/min/{1.73_m2} Normal [facility] Comment on above: Performed By: #### G LULS #### Point of Care testing , Glucose [Mass/Vol] 130 mg/dL High 70-100 [facility] Comment on above: Result Comment: [facility] Glucose Reference Range is dependent on time and content of last meal. Glucose of more than 200 mg/dL in a nonstressed, ambulatory subject supports the diagnosis of Diabetes Mellitus. ADA recommended reference range Performed By: #### G LULS #### Point of Care testing , Potassium [Moles/Vol] 4.0 mmol/L Normal 3.5-5.1 [facility] Comment on above: Performed By: #### G LULS #### Point of Care testing , Sodium [Moles/Vol] 137 mmol/L Normal 136-145 [facility] Comment on above: Performed By: #### G LULS #### Point of Care testing , Urea nitrogen [Mass/Vol] 30 mg/dL High 7-25 [facility] Comment on above: Performed By: #### G LULS #### Point of Care testing , Carbohydrate Antigen 19-9on 09-10-2023 Carbohydrate Antigen 19-9 23 Normal 0-35 [facility] Comment on above: Result Comment: [employer] [facility] Electrochemiluminescence Immunoassay (ECLIA) Values obtained with different assay methods or kits cannot be used interchangeably. Results cannot be interpreted as absolute evidence of the presence or absence of malignant disease. Performed at: [facility] [address] [id number] Hydropulper Operator: Chidi Hernandes PhD, Phone: [phone] PERFORMED BY: [address] [place] [address] PATHOLOGIST RETAIL BUSINESS DEVELOPMENT MANAGER LAZARUS MILLER M.D. Performed By: #### C A19 #### [facility] , Glucose Poct Glucometerson 1 11-11-2022 Glucose [Mass/Vol] 183 mg/dL Normal [facility] Comment on above: Result Comment: [facility] Glucose Reference Range is dependent on time and content of last meal. Glucose of more than 200 mg/dL in a nonstressed, ambulatory subject supports the diagnosis of Diabetes Mellitus. PERFORMED BY: [place] [address] PATHOLOGIST RETAIL BUSINESS DEVELOPMENT MANAGER LAZARUS MILLER M.D. Performed By: #### G LULS #### Point of Care testing , Glucose [Mass/Vol] 193 mg/dL Normal [facility] Comment on above: Result Comment: [place] [facility] Glucose Reference Range is dependent on time and content of last meal. Glucose of more than 200 mg/dL in a nonstressed, ambulatory subject supports the diagnosis of Diabetes Mellitus. PERFORMED BY: [place] [address] PATHOLOGIST RETAIL BUSINESS DEVELOPMENT MANAGER LAZARUS MILLER M.D. Performed By: #### G LULS #### Point of Care testing , Commemt1 Glu2: Cleaned Meter Normal [facility] Comment on above: Result Comment: PERF ORMED BY: [place] [address] PATHOLOGIST RETAIL BUSINESS DEVELOPMENT MANAGER LAZARUS MILLER M.D. Performed By: #### G LULS ####Point of Care testing, Glucose [Mass/Vol] 206 mg/dL Normal [facility] Comment on above: Result Comment: [place] [facility] Glucose Reference Range is dependent on time and content of last meal. Glucose of more than 200 mg/dL in a nonstressed, ambulatory subject supports the diagnosis of Diabetes Mellitus. Performed By: #### G LULS ####Point of Care testing, Commemt1 Glu2: Cleaned Meter Normal [facility] Comment on above: Result Comment: PERF ORMED BY: [place] [address] PATHOLOGIST RETAIL BUSINESS DEVELOPMENT MANAGER LAZARUS MILLER M.D. Performed By: #### A LT, LIPID, AST #### [address] Glucose [Mass/Vol] 156 mg/dL Normal [facility] Comment on above: Result Comment: [place] [facility] Glucose Reference Range is dependent on time and content of last meal. Glucose of more than 200 mg/dL in a nonstressed, ambulatory subject supports the diagnosis of Diabetes Mellitus. Performed By: #### A LT, LIPID, AST #### [place] [address] [place] Lipase [Enzymatic activity/v olume] in Serum or PlasmaOrdered By: Joao Coley on 09-10-2023 Lipase [Catalytic activity/Vol] 25.0 U/L Normal 11.0-82.0 [facility] Comment on above: Result Comment: PERF ORMED BY: [place] [address] PATHOLOGIST RETAIL BUSINESS DEVELOPMENT MANAGER LAZARUS MILLER M.D. Performed By: #### G LULS #### Point of Care testing , No Panel InformationOrdered By: Barbie Osborn on 09-10-2023 Bedside Glucose Comment Glu2: cleaned meter [facility] Serum or plasma cancer antig en 19-9 measurement (units/volume)Ordered By: Joao Coley on 09-10-2023 Cancer Ag 19-9 Qn 23 [arb'U]/mL 0-35 [facility] Comment on above: [employer] El ectrochemiluminescence Immunoassay(ECLIA)Values obtained with different assay methods or kits cannotbe used interchangeably. Results cannot be interpreted asabsolute evidence of the presence or absence of malignantdisease.Performed at: [facility] [id number] Director: Chidi Hernandes PhD, Phone: [phone] Albumin [Mass/volume] in Ser um or PlasmaOrdered By: Nette Holden on 09-09-2023 Albumin [Mass/Vol] 3.2 g/dL Normal 2.9-4.4 [facility] Comment on above: Performed By: #### A LT, LIPID, AST #### [facility] [address] Albumin/Protein.total in 24 hour Urine by ElectrophoresisOrdered By: Nette Holden on 09-09-2023 Albumin Elph (24H U) [Mass fraction] 64.4 % . [facility] Basic Metabolic Panelon Anion gap [Moles/Vol] 8.6 mmol/L Normal 6.0-15.0 [facility] Comment on above: Performed By: #### G LULS #### Point of Care testing , Calcium [Mass/Vol] 8.6 mg/dL Normal 8.6-10.3 [facility] Comment on above: Performed By: #### G LULS #### Point of Care testing , Chloride [Moles/Vol] 107 mmol/L Normal 98-107 [facility] Comment on above: Performed By: #### G LULS #### Point of Care testing , CO2 [Moles/Vol] 24.3 mmol/L Normal 21.0-31.0 [facility] Comment on above: Performed By: #### G LULS #### Point of Care testing , Creatinine [Mass/Vol] 1.84 mg/dL High 0.70-1.30 [facility] Comment on above: Performed By: #### G LULS #### Point of Care testing , Creatinine Clr Calc Pharmacy 32.27 Normal [facility] Comment on above: Result Comment: PERF ORMED BY: [address] [place] [address] PATHOLOGIST RETAIL BUSINESS DEVELOPMENT MANAGER LAZARUS MILLER M.D. Performed By: #### G LULS #### Point of Care testing , GFR/1.73 sq M.predicted MDRD (S/P/Bld) [Vol rate/Area] 38.232 mL/min/{1.73_m2} Normal [facility] Comment on above: Performed By: #### G LULS #### Point of Care testing , Glucose [Mass/Vol] 125 mg/dL High 70-100 [facility] Comment on above: Result Comment: [facility] Glucose Reference Range is dependent on time and content of last meal. Glucose of more than 200 mg/dL in a nonstressed, ambulatory subject supports the diagnosis of Diabetes Mellitus. ADA recommended reference range Performed By: #### G LULS #### Point of Care testing , Potassium [Moles/Vol] 3.9 mmol/L Normal 3.5-5.1 [facility] Comment on above: Performed By: #### G LULS #### Point of Care testing , Sodium [Moles/Vol] 136 mmol/L Normal 136-145 [facility] Comment on above: Performed By: #### G LULS #### Point of Care testing , Urea nitrogen [Mass/Vol] 23 mg/dL Normal 7-25 [facility] Comment on above: Performed By: #### G LULS #### Point of Care testing , Complete Blood Count Auto Di ffon 09-09-2023 Basophils (Bld) [#/Vol] 0.1 10*3/uL Normal 0.0-0.2 [facility] Comment on above: Result Comment: PERF ORMED BY: [facility] [place] [address] PATHOLOGIST RETAIL BUSINESS DEVELOPMENT MANAGER LAZARUS MILLER M.D. Performed By: #### G LULS #### Point of Care testing , Basophils/100 WBC (Bld) 0.8 % Normal . T [facility] Comment on above: Performed By: #### G LULS #### Point of Care testing , Eosinophils (Bld) [#/Vol] 0.2 10*3/uL Normal 0.0-0.45 [facility] Comment on above: Performed By: #### G LULS #### Point of Care testing , Eosinophils/100 WBC (Bld) 2.4 % Normal . [facility] Comment on above: Performed By: #### G LULS #### Point of Care testing , Erythrocyte distribution width (RBC) [Ratio] 13.6 % Normal 12.0-14.8 [facility] Comment on above: Performed By: #### G LULS #### Point of Care testing , Hematocrit (Bld) [Volume fraction] 35.7 % Low 38.8-50.0 [facility] Comment on above: Performed By: #### G LULS #### Point of Care testing , Hemoglobin (Bld) [Mass/Vol] 12.0 g/dL Low 13.0-17.0 [facility] Comment on above: Performed By: #### G LULS #### Point of Care testing , Lymphocytes (Bld) [#/Vol] 2.3 10*3/uL Normal 1.00-4.8 [facility] Comment on above: Performed By: #### G LULS #### Point of Care testing , Lymphocytes/100 WBC (Bld) 23.8 % Normal . [facility] Comment on above: Performed By: #### G LULS #### Point of Care testing , MCH (RBC) [Entitic mass] 28.3 pg Normal 27.5-35.2 [facility] Comment on above: Performed By: #### G LULS #### Point of Care testing , MCV (RBC) [Entitic vol] 84.1 fL Normal 83.5-101 [facility] Comment on above: Performed By: #### G LULS #### Point of Care testing , Mean Corpuscular HGB Conc 33.7 g/dL Normal 32.5-35.6 [facility] Comment on above: Performed By: #### G LULS #### Point of Care testing , Monocytes (Bld) [#/Vol] 1.1 10*3/uL High 0.0-0.8 [facility] Comment on above: Performed By: #### G LULS #### Point of Care testing , Monocytes/100 WBC (Bld) 12.2 % Normal . [facility] Comment on above: Performed By: #### G LULS #### Point of Care testing , Neutrophils (Bld) [#/Vol] 5.7 10*3/uL Normal 1.8-7.7 [facility] Comment on above: Performed By: #### G LULS #### Point of Care testing , Neutrophils/100 WBC (Bld) 60.8 % Normal . [facility] Comment on above: Performed By: #### G LULS #### Point of Care testing , NRBC% 0.0 /100{WBC} Normal 0-0.5 [facility] Comment on above: Performed By: #### G LULS #### Point of Care testing , Platelet mean volume (Bld) [Entitic vol] 8.5 fL Normal 6.6-10.1 [facility] Comment on above: Performed By: #### G LULS #### Point of Care testing , Platelets (Bld) [#/Vol] 201 10*3/uL Normal 150-450 [facility] Comment on above: Performed By: #### G LULS #### Point of Care testing , RBC (Bld) [#/Vol] 4.25 10*6/uL Normal 3.90-5.60 [facility] Comment on above: Performed By: #### G LULS #### Point of Care testing , WBC (Bld) [#/Vol] 9.4 10*3/uL Normal 4.1-10.5 [facility] Comment on above: Performed By: #### G LULS #### Point of Care testing , Folate [Mass/volume] in Seru m or PlasmaOrdered By: Nette Holden on 09-09-2023 Folate [Mass/Vol] 27.0 ng/mL >5.9 [facility] Comment on above: Folate reference ran ge: >5.9 ng/mlThe WHO technical consultation on folate and vitamin [id number] has determined that folate concentrations lessthan 4 ng/ml are considered deficient. Free K+L LT Chains, Qn, Son 09-09-2023 Free [place] Light Chains, S 52.6 mg/L High 3.3-19.4 [facility] Comment on above: Performed By: #### A LT, LIPID, AST #### [facility] [address] Free [place] Light Chains, S 28.0 mg/L High 5.7-26.3 [facility] Comment on above: Performed By: #### A LT, LIPID, AST #### [facility] [address] [place] [address] [place]/Lambda Ratio, S 1.88 High 0.26-1.65 [facility] Comment on above: Result Comment: Perf ormed at: CB - [facility] [address] [id number] Hydropulper Operator: Chidi Hernandes PhD, Phone: [phone] PERFORMED BY: [place] [address] PATHOLOGIST RETAIL BUSINESS DEVELOPMENT MANAGER LAZARUS MILLER M.D. Performed By: #### A LT, LIPID, AST #### [address] Gamma globulin/Protein.total in 24 hour Urine by ElectrophoresisOrdered By: Nette Holden on 09-09-2023 Gamma globulin Elph (24H U) [Mass fraction] 13.1 % . [facility] Glucose Poct Glucometerson 1 11-10-2022 Commemt1 Glu2: Cleaned Meter Normal [facility] Comment on above: Result Comment: PERF ORMED BY: [place] [address] PATHOLOGIST RETAIL BUSINESS DEVELOPMENT MANAGER LAZARUS MILLER M.D. Performed By: #### G LULS #### Point of Care testing , Glucose [Mass/Vol] 189 mg/dL Normal [facility] Comment on above: Result Comment: [place] [facility] Glucose Reference Range is dependent on time and content of last meal. Glucose of more than 200 mg/dL in a nonstressed, ambulatory subject supports the diagnosis of Diabetes Mellitus. Performed By: #### G LULS #### Point of Care testing , Commemt1 Glu2: Cleaned Meter Normal [facility] Comment on above: Result Comment: PERF ORMED BY: [place] [address] PATHOLOGIST RETAIL BUSINESS DEVELOPMENT MANAGER LAZARUS MILLER M.D. Performed By: #### G LULS #### Point of Care testing , Glucose [Mass/Vol] 199 mg/dL Normal [facility] Comment on above: Result Comment: [place] [facility] Glucose Reference Range is dependent on time and content of last meal. Glucose of more than 200 mg/dL in a nonstressed, ambulatory subject supports the diagnosis of Diabetes Mellitus. Performed By: #### G LULS #### Point of Care testing , Commemt1 Glu2: Cleaned Meter Normal [facility] Comment on above: Result Comment: PERF ORMED BY: [place] [address] PATHOLOGIST RETAIL BUSINESS DEVELOPMENT MANAGER LAZARUS MILLER M.D. Performed By: #### G LULS #### Point of Care testing , Glucose [Mass/Vol] 158 mg/dL Normal [facility] Comment on above: Result Comment: [place] [facility] Glucose Reference Range is dependent on time and content of last meal. Glucose of more than 200 mg/dL in a nonstressed, ambulatory subject supports the diagnosis of Diabetes Mellitus. Performed By: #### G LULS #### Point of Care testing , Glucose [Mass/Vol] 117 mg/dL Normal [facility] Comment on above: Result Comment: [place] [facility] Glucose Reference Range is dependent on time and content of last meal. Glucose of more than 200 mg/dL in a nonstressed, ambulatory subject supports the diagnosis of Diabetes Mellitus. PERFORMED BY: [address] [place] [address] PATHOLOGIST RETAIL BUSINESS DEVELOPMENT MANAGER LAZARUS MILLER M.D. Performed By: #### G LULS #### Point of Care testing , IgA [Mass/volume] in Serum o r PlasmaOrdered By: Nette Holden on 09-09-2023 IgA [Mass/Vol] 159 mg/dL 61-437 [facility] IgG [Mass/volume] in Serum o r PlasmaOrdered By: Nette Burnettr on 09-09-2023 IgG [Mass/Vol] 793 mg/dL 603-1613 [facility] IgM [Mass/volume] in Serum o r PlasmaOrdered By: Nette uBrnettr on 09-09-2023 IgM [Mass/Vol] 47 mg/dL 15-143 [facility] Immunofixation for UrineOrde red By: Nette Holden on 09-09-2023 Interpretation Immunofixation (U) [Interp] See comment . [facility] Comment on above: No monoclonality det ected.Performed at: [facility] [id number] Director: Chidi Hernandes PhD, Phone: [phone] Immunofixation, (RADHA), Urine on 09-09-2023 Immunofixation, (RADHA), Urine Normal . [facility] Comment on above: Result Comment: No m onoclonality detected. Performed at: [facility] [address] [id number] Hydropulper Operator: Chidi Hernandes PhD, Phone: [phone] Performed By: #### A LT, LIPID, AST #### [facility] [address] [place] [id number] [place] Immunofixation,Serumon 09-09 Immunofixation, Serum Normal . [facility] Comment on above: Result Comment: No m onoclonality detected. Performed By: #### A LT, LIPID, AST #### [facility] [address] [place] [address] [place] Immunoglobulin A, Serum 159 mg/dL Normal 61-437 [facility] Comment on above: Performed By: #### A LT, LIPID, AST #### [facility] [address] [place] [id number] [place] Immunoglobulin G 793 mg/dL Normal 603-1613 [facility] Comment on above: Performed By: #### A LT, LIPID, AST #### [facility] [address] [place] [id number] [place] Immunoglobulin M, Serum 47 mg/dL Normal 15-143 [facility] Comment on above: Performed By: #### A LT, LIPID, AST #### [facility] [address] [place] [id number] [place] Immunoglobulin light chains. kappa.free [Mass/volume] in SerumOrdered By: Nette Holden on 09-09-2023 Immunoglobulin light chains.kappa.free (S) [Mass/Vol] 52.6 mg/L 3.3-19.4 [facility] Immunoglobulin light chains. kappa.free/Immunoglobulin light chains.lambda.free [MassOrdered By: Nette Adina on 09-09-2023 Immunoglobulin light chains.kappa.free/Immun oglobulin light chains.lambda.free (S) [Mass ratio] 1.88 0.26-1.65 [facility] Comment on above: Performed at: CB - [facility] [address] [id number] Director: Chidi Hernandes PhD, Phone: [phone] Immunoglobulin light chains. lambda.free [Mass/volume] in Serum or PlasmaOrdered By: Nette Adina on 09-09-2023 Immunoglobulin light chains.lambda.free [Mass/Vol] 28.0 mg/L 5.7-26.3 [facility] Iron [Mass/volume] in Serum or PlasmaOrdered By: Nette Adina on 09-09-2023 Iron [Mass/Vol] 53 ug/dL Normal 50-212 [facility] Comment on above: Performed By: #### G LULS #### Point of Care testing , Iron and TIBC Profileon % Iron Saturation 20.4 % Normal 20-50 [facility] Comment on above: Performed By: #### G LULS #### Point of Care testing , Total Iron Binding Capacity 260 ug/dL Normal 255-450 [facility] Comment on above: Performed By: #### G LULS #### Point of Care testing , Iron binding capacity [Mass/ volume] in Serum or PlasmaOrdered By: Nette Adina on 09-09-2023 Iron binding capacity [Mass/Vol] 260 ug/dL 255-450 [facility] Iron saturation [Mass Fracti on] in Serum or PlasmaOrdered By: Nette Adina on 09-09-2023 Iron saturation [Mass fraction] 20.4 % 20-50 [facility] Javier 09-09-2023 L ---- Specimen: [id number] Received: 09/09/23 Status: FABIO Villalobos Num: [id number] Spec Type: Surgical Subm Dr: Joao Coley MD Tissues: A Duodenum - Biopsy (DUODENAL BX) B GASTRIC FOR HP (GASTRIC HP) Procedures: HE/4, Gross/Micro L4/2, H PYLORI, IHC First AB Age/ Patient Sex Location Account Attending Physician Dave Lugo 73/M [id number] Barbie Osborn MD SPEC NUM: [id number] RECD: 09/09/23 STATUS: FABIO VILLALOBOS NUM: [id number] ANGELINA: 09/09/23- [facility] DR: Joao Coley MD ENTERED: 09/09/[address] [facility] [address]: HINA TYPE: Surgical DEPT: S ORDERED: HE/4, Gross/Micro L4/2, H PYLORI, IHC First AB ORDERED: HE/4, Gross/Micro L4/2, H PYLORI, IHC First AB Pathological Diagnosis A. Duodenal biopsy: - Duodenal mucosa with minor nonspecific congestion in lamina propria of the villous structures, otherwise without erosion, significant stromal chronic inflammation, or any other abnormal features of celiac sprue identifiable B. Gastric antral biopsy: - Antral to oxyntic mucosa with mild reactive gastropathy, including 1 small dilated foveolar gland with suggested Goblet cell change, and focal active foveolitis with occasional PMN noted in only 1 foveolar gland, otherwise without erosion, glandular atypia, or any significant stromal chronic inflammation observed - H. pylori immunostain with appropriate control is also negative for identified Helicobacter organisms or infection Clinical Information Rule out sprue, rule out H. pylori Gross Description A. Received in formalin labeled with the patient's name, date of and duodenal biopsy is one zhang tissue measuring 0.3 x 0.3 x 0.2 cm. Entirely submitted in one cassette labeled A1. Specimen: [id number] Received: 09/09/23 Status: FABIO Villalobos Num: [id number] Spec Type: Surgical Subm Dr: Joao Coley MD Tissues: A Duodenum - Biopsy (DUODENAL BX) B GASTRIC FOR HP (GASTRIC HP) Procedures: HE/4, Gross/Micro L4/2, H PYLORI, IHC First AB Patient: Dave Lugo Hannah [id number] (Continued) Specimen: [id number] Received: 12/05/23-1234 (Continued) Gross Description (Continued) Signed (signature on file) Edson Clark MD 09/10/232007 Specimen: [id number] Received: 09/09/23 Status: FABIO Villalobos Num: [id number] Spec Type: Surgical Subm Dr: Joao Coley MD Tissues: A Duodenum - Biopsy (DUODENAL BX) B GASTRIC FOR HP (GASTRIC HP) Procedures: HE/4, Gross/Micro L4/2, H PYLORI, IHC First AB Patient: Dave Lugo [id number] (Continued) Specimen: [id number] Received: 09/09/23 (Continued) Gross Description (Continued) B. Received in formalin labeled with the patient's name, date of and antral biopsy is one zhang tissue measuring 0.3 x 0.2 x 0.2 cm. Entirely submitted in one cassette labeled B1. Microscopic Description A. Two H E slides reviewed. The microscopic examination confirms the diagnosis. B. Two H E slides reviewed. The microscopic examination confirms the diagnosis. CPT Codes 99534i9 Specimen: [id number] Received: 09/09/23 Status: FABIO Ashtoncarol Num: [id number] Spec Type: Surgical Subm Dr: Joao Coley MD Tissues: A Duodenum - Biopsy (DUODENAL BX) B GASTRIC FOR HP (GASTRIC HP) Procedures: HE/4, Gross/Micro L4/2, H PYLORI, IHC First AB Patient: LugoDave [id number] (Continued) Signed (signature on file) Edson Clark MD 09/10/232007 Normal [facility] No Panel InformationOrdered By: Nette Holden on 09-09-2023 Urine Random Prot Electrophor Note See comment . [facility] Comment on above: Protein electrophore sis scan will follow via computer,mail, or associate professor of history delivery. Protein Electrophoresis M-Donaldo Not observed g/dL Not Observed [facility] Protein Electrophoresis Note See comment . [facility] Comment on above: Protein electrophore sis scan will follow via computer,mail, or associate professor of history delivery. Serum Immunofixation See comment . [facility] Comment on above: No monoclonality det ected. Protein Electro, Random Urin alex 09-09-2023 Albumin, Urine 64.4 % Normal . [facility] Comment on above: Performed By: #### A LT, LIPID, AST #### [address] Vzsgc-0-Auldohap, Urine 2.5 % Normal . [facility] Comment on above: Performed By: #### A LT, LIPID, AST #### [address] Eiwwf-0-Dezdvakv, Urine 7.7 % Normal . [facility] Comment on above: Performed By: #### A LT, LIPID, AST #### [facility] [address] Beta Globulin, Urine 12.3 % Normal . [facility] Comment on above: Performed By: #### A LT, LIPID, AST #### [facility] [address] [place] [address] [place] Gamma Globulin, Urine 13.1 % Normal . [facility] Comment on above: Performed By: #### A LT, LIPID, AST #### [address] M-Donaldo % Not Observed Normal Not Observed [facility] Comment on above: Performed By: #### A LT, LIPID, AST #### [address] Please Note: Normal . [facility] Comment on above: Result Comment: Prot ein electrophoresis scan will follow via computer, mail, or associate professor of history delivery. PERFORMED BY: [place] [address] PATHOLOGIST RETAIL BUSINESS DEVELOPMENT MANAGER LAZARUS MILLER M.D. Performed By: #### A LT, LIPID, AST #### [address] Protein Electrophoresis, Ser umon 09-09-2023 Uygdw-4-Atwbcqnk 0.2 g/dL Normal 0.0-0.4 [facility] Comment on above: Performed By: #### A LT, LIPID, AST #### [address] Koqwi-1-Wnzojdwj 0.7 g/dL Normal 0.4-1.0 [facility] Comment on above: Performed By: #### A LT, LIPID, AST #### [address] Beta Globulin 0.7 g/dL Normal 0.7-1.3 [facility] Comment on above: Performed By: #### A LT, LIPID, AST #### [address] Gamma Globulin 0.8 g/dL Normal 0.4-1.8 [facility] Comment on above: Performed By: #### A LT, LIPID, AST #### [address] M-Donaldo Not Observed Normal Not Observed [facility] Comment on above: Performed By: #### A LT, LIPID, AST #### [address] SPE-Note Normal . [facility] Comment on above: Result Comment: Prot ein electrophoresis scan will follow via computer, mail, or associate professor of history delivery. Performed By: #### A LT, LIPID, AST #### [address] Protein [Mass/volume] in Ser um or PlasmaOrdered By: Nette Holden on 09-09-2023 Protein [Mass/Vol] 5.6 g/dL Low 6.0-8.5 [facility] Comment on above: Performed By: #### A LT, LIPID, AST #### [address] Protein [Mass/volume] in Uri neOrdered By: Nette Holden on 09-09-2023 Protein (U) [Mass/Vol] 76.1 mg/dL Normal Not Estab. [facility] Comment on above: Performed By: #### A LT, LIPID, AST #### [facility] [address] [place] [address] Protein.monoclonal/Protein.t otal in 24 hour Urine by ElectrophoresisOrdered By: Nette Holden on 09-09-2023 Protein.monoclonal Elph (24H U) [Mass fraction] Not observed % Not Observed [facility] Serum globulin measurement ( mass/volume)Ordered By: Nette Holden on 09-09-2023 Globulin (S) [Mass/Vol] 2.4 g/dL Normal 2.2-3.9 [facility] Comment on above: Performed By: #### A LT, LIPID, AST #### [facility] [address] [place] [address] Serum or plasma albumin/glob ulin mass ratioOrdered By: Nette Holden on 09-09-2023 Albumin/Globulin [Mass ratio] 1.3 {ratio} Normal 0.7-1.7 [facility] Comment on above: Performed By: #### A LT, LIPID, AST #### [facility] [address] [place] [address] Serum or plasma alpha 1 glob ulin measurement by electrophoresis (mass/volume)Ordered By: Nette Holden on 09-09-2023 Alpha 1 globulin Elph [Mass/Vol] 0.2 g/dL 0.0-0.4 [facility] Serum or plasma alpha 2 glob ulin measurement by electrophoresis (mass/volume)Ordered By: Nette Holden on 09-09-2023 Alpha 2 globulin Elph [Mass/Vol] 0.7 g/dL 0.4-1.0 [facility] Serum or plasma beta globuli n measurement by electrophoresis (mass/volume)Ordered By: Nette Holden on 09-09-2023 Beta globulin Elph [Mass/Vol] 0.7 g/dL 0.7-1.3 [facility] Serum or plasma gamma globul in measurement by electrophoresis (mass/volume)Ordered By: Nette Holden on 09-09-2023 Gamma globulin Elph [Mass/Vol] 0.8 g/dL 0.4-1.8 [facility] Transferrin [Mass/volume] in Serum or PlasmaOrdered By: Nette Holden on 09-09-2023 Transferrin [Mass/Vol] 186 mg/dL Low 203-362 [facility] Comment on above: Performed By: #### G LULS #### Point of Care testing , Urine alpha 1 globulin/total protein by electrophoresisOrdered By: Nette Holden on 09-09-2023 Alpha 1 globulin Elph (U) [Mass fraction] 2.5 % . [facility] Urine alpha 2 globulin/total protein ratio by electrophoresisOrdered By: Nette Holden on 09-09-2023 Alpha 2 globulin Elph (U) [Mass fraction] 7.7 % . [facility] Urine beta globulin measurem ent by electrophoresis (mass/volume)Ordered By: Nette Holden on 09-09-2023 Beta globulin Elph (U) [Mass/Vol] 12.3 % . [facility] Vit. B12/Folate Profileon Folate 27.0 ng/mL Normal >5.9 [facility] Comment on above: Result Comment: Marie te reference range: >5.9 ng/ml The WHO technical consultation on folate and vitamin b12 deficiencies has determined that folate concentrations less than 4 ng/ml are considered deficient. PERFORMED BY: [place] [address] [address] [address] PATHOLOGIST RETAIL BUSINESS DEVELOPMENT MANAGER LAZARUS MILLER M.D. Performed By: #### G LULS #### Point of Care testing , Vitamin B12 ser/plasOrdered By: Nette Holden on 09-09-2023 Cobalamin (Vitamin B12) [Mass/Vol] 1320 pg/mL High 180-914 [facility] Comment on above: Performed By: #### G GIRMA #### Point of Care testing , Alanine aminotransferase [En zymatic activity/volume] in Serum or PlasmaOrdered By: Enrique Chaparro on 09-08-2023 ALT [Catalytic activity/Vol] 9 U/L Normal 7-52 [facility] Comment on above: Performed By: #### C BC, CMP, LIPASE ####[place] [id number] [address] Albumin [Mass/volume] in Ser um or Plasma by Bromocresol green (BCG) dye binding methoOrdered By: Enrique Chaparro on 09-08-2023 Albumin BCG dye [Mass/Vol] 4.1 g/dL 3.5-5.7 [facility] Alkaline phosphatase [Enzyma tic activity/volume] in Serum or PlasmaOrdered By: Enrique Chaparro on 09-08-2023 ALP [Catalytic activity/Vol] 96 U/L Normal 34-104 [facility] Comment on above: Performed By: #### C BC, CMP, LIPASE ####[address] Aspartate aminotransferase [ Enzymatic activity/volume] in Serum or PlasmaOrdered By: Enrique Chaparro on 09-08-2023 AST [Catalytic activity/Vol] 16 U/L Normal 13-39 [facility] – [place] Comment on above: Performed By: #### C BC, CMP, LIPASE ####[address] Bilirubin.total [Mass/volume ] in Serum or PlasmaOrdered By: Enrique Chaparro on 09-08-2023 Bilirubin [Mass/Vol] 0.4 mg/dL Normal 0.3-1.0 [facility] Comment on above: Performed By: #### C BC, CMP, LIPASE ####[place] [id number] angio abdomen pelvison CT angio abdomen pelvis [facility] [address] [place] [address] CT Scan Report Signed Patient: Dave Lugo MR#: [id number] : 1950 Acct:[id number] Age/Sex: 73 / M ADM Date: 09/08/23 Loc: ER Room: Type: [facility] ER Attending Dr: Copies to: Enrique Chaparro DO Ordering Provider: Enrique Chaparro DO Date of Service: 09/08/23 CT/CT angio abdomen pelvis: f CTA OF THE ABDOMEN AND PELVIS WITH CONTRAST COMPARISON: 12/31/2022 CLINICAL DATA: Mid abdominal pain radiating to the back today. Spiral images were obtained through the abdomen pelvis following 90 mL Isovue-370. Sagittal coronal MIP as well as 3-D volume rendered reconstructions of the aorta and its branches were reviewed. This CT exam was performed using one or more following dose reduction techniques: Automated exposure control, adjustment of the mA and/or kV according to patient size, or use of iterative reconstruction technique. Limited cuts through the lung bases show mild bilateral gynecomastia. There is atelectasis and/or scarring. Coronary artery disease is seen. There is mild atherosclerotic plaque involving the aorta and iliac arteries. There is no aneurysm or dissection. There is also soft plaque at the common carotid artery on the right where there is a short segment of moderate luminal narrowing. Plaque is again seen at the origin of the celiac artery with mild associated stenosis. There is also continued plaque at the origin of the renal arteries, left greater than right. There is mild associated luminal narrowing, greater on the right. The FRIDA is patent. There is no periaortic fluid. No calcified gallstones are present. No intrahepatic masses are noted. The spleen and adrenal glands show no acute findings. The pancreas is slightly atrophic and there is continued borderline pancreatic ductal prominence. There is still moderate bilateral perinephric fibrofatty stranding. The renal nephrograms are symmetric. No hydronephrosis is identified. No ureteral dilatation or stones are noted. There are tiny lymph nodes. No ascites is present. The small bowel loops are not distended. There is fluid and food debris within the stomach. There is stool at the ascending and proximal transverse colon. The distal transverse and descending colon are not as well distended and there are some segments of apparent wall thickening. Colonic diverticula are seen. There is subtle dextroscoliotic curvature as well as postoperative and degenerative changes at the spine. There is associated stenosis, particularly at L2-3 and L3-4. Images through the pelvis show no appendiceal inflammation. The small bowel loops are not distended. There is a small amount of stool at the distal colon. There are also under distended segments with apparent wall thickening. There are additional diverticula, without associated active inflammation. There is an enlarged prostate with mass effect at the bladder trigone. The bladder is otherwise within normal limits. No ascites is seen. CT/CT angio abdomen pelvis IMPRESSION: BASILAR ATELECTASIS AND/OR SCARRING. 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 NO ANEURYSM OR DISSECTION. NO BOWEL OR URINARY TRACT OBSTRUCTION. DIVERTICULOSIS. PROSTATE HYPERTROPHY. Impression dictated by: Destinee Alexander M.D.09/08/2023 8:40 AM Dictation Location: [place] [address] Transcribed By: [facility] 09/08/23839 Dictated By: Destinee Alexander MD 09/08/2329 Signed By: 09/08/23839 Normal [facility] Complete Blood Count Auto Di ffon 09-08-2023 Basophils (Bld) [#/Vol] 0.1 10*3/uL Normal 0.0-0.2 [facility] Comment on above: Result Comment: PERF ORMED BY: [facility] [address] [facility] [place] [address] PATHOLOGIST [employer] DEVELOPMENT MANAGER LAZARUS MILLER M.D. Performed By: #### C BC, CMP, LIPASE ####[address] Basophils/100 WBC (Bld) 0.7 % Normal . T [facility] Comment on above: Performed By: #### C BC, CMP, LIPASE ####[place] [id number] [place] Eosinophils (Bld) [#/Vol] 0.4 10*3/uL Normal 0.0-0.45 [facility] Comment on above: Performed By: #### C BC, CMP, LIPASE ####[address] Eosinophils/100 WBC (Bld) 4.4 % Normal . [facility] Comment on above: Performed By: #### C BC, CMP, LIPASE ####[address] Erythrocyte distribution width (RBC) [Ratio] 13.5 % Normal 12.0-14.8 [facility] Comment on above: Performed By: #### C BC, CMP, LIPASE ####[address] Hematocrit (Bld) [Volume fraction] 38.0 % Low 38.8-50.0 [facility] Comment on above: Performed By: #### C BC, CMP, LIPASE ####[address] Hemoglobin (Bld) [Mass/Vol] 12.7 g/dL Low 13.0-17.0 [facility] Comment on above: Performed By: #### C BC, CMP, LIPASE ####[address] Lymphocytes (Bld) [#/Vol] 1.9 10*3/uL Normal 1.00-4.8 [facility] Comment on above: Performed By: #### C BC, CMP, LIPASE ####[address] Lymphocytes/100 WBC (Bld) 21.4 % Normal . [facility] Comment on above: Performed By: #### C BC, CMP, LIPASE ####[address] MCH (RBC) [Entitic mass] 28.4 pg Normal 27.5-35.2 [facility] Comment on above: Performed By: #### C BC, CMP, LIPASE ####[address] MCV (RBC) [Entitic vol] 85.0 fL Normal 83.5-101 T [facility] Comment on above: Performed By: #### C BC, CMP, LIPASE ####[place] [id number] [place] Mean Corpuscular HGB Conc 33.5 g/dL Normal 32.5-35.6 [facility] Comment on above: Performed By: #### C BC, CMP, LIPASE ####[place] [id number] [place] Monocytes (Bld) [#/Vol] 0.9 10*3/uL High 0.0-0.8 [facility] Comment on above: Performed By: #### C BC, CMP, LIPASE ####[place] [id number] [place] Monocytes/100 WBC (Bld) 19.22 % Normal 0.00-20.00 [facility] Comment on above: Performed By: #### C BC, CMP, LIPASE ####[place] [id number] [place] Monocytes/100 WBC (Bld) 10.2 % Normal . [facility] Comment on above: Performed By: #### C BC, CMP, LIPASE ####[place] [id number] [place] Neutrophils (Bld) [#/Vol] 5.5 10*3/uL Normal 1.8-7.7 [facility] Comment on above: Performed By: #### C BC, CMP, LIPASE ####[place] [id number] [place] Neutrophils/100 WBC (Bld) 63.3 % Normal . [facility] Comment on above: Performed By: #### C BC, CMP, LIPASE ####[place] [id number] [place] NRBC% 0.1 /100{WBC} Normal 0-0.5 [facility] Comment on above: Performed By: #### C BC, CMP, LIPASE ####[place] [id number] [place] Platelet mean volume (Bld) [Entitic vol] 9.0 fL Normal 6.6-10.1 [facility] Comment on above: Performed By: #### C BC, CMP, LIPASE ####[address] Platelets (Bld) [#/Vol] 199 10*3/uL Normal 150-450 [facility] Comment on above: Performed By: #### C BC, CMP, LIPASE ####[address] RBC (Bld) [#/Vol] 4.47 10*6/uL Normal 3.90-5.60 [facility] Comment on above: Performed By: #### C BC, CMP, LIPASE ####[address] WBC (Bld) [#/Vol] 8.7 10*3/uL Normal 4.1-10.5 [facility] Comment on above: Performed By: #### C BC, CMP, LIPASE ####[address] Comprehensive Metabolic Pane javier 09-08-2023 Albumin [Mass/Vol] 4.1 g/dL Normal 3.5-5.7 [facility] Comment on above: Performed By: #### C BC, CMP, LIPASE ####[address] Anion gap [Moles/Vol] Not performed Normal 6.0-15.0 [facility] Comment on above: Performed By: #### C BC, CMP, LIPASE ####[address] Calcium [Mass/Vol] 9.1 mg/dL Normal 8.6-10.3 [facility] Comment on above: Performed By: #### C BC, CMP, LIPASE ####[address] Chloride [Moles/Vol] 108 mmol/L High 98-107 [facility] Comment on above: Performed By: #### C BC, CMP, LIPASE ####[place] [id number] [place] CO2 [Moles/Vol] 21.9 mmol/L Normal 21.0-31.0 [facility] Comment on above: Performed By: #### C BC, CMP, LIPASE ####[place] [id number] [place] Creatinine [Mass/Vol] 1.85 mg/dL High 0.70-1.30 [facility] Comment on above: Performed By: #### C BC, CMP, LIPASE ####[address] Creatinine Clr Calc Pharmacy 33.62 Normal [facility] Comment on above: Performed By: #### C BC, CMP, LIPASE ####[place] [id number] GFR/1.73 sq M.predicted MDRD (S/P/Bld) [Vol rate/Area] 37.984 mL/min/{1.73_m2} Normal [facility] Comment on above: Performed By: #### C BC, CMP, LIPASE ####[address] Glucose [Mass/Vol] 142 mg/dL High 70-100 [facility] Comment on above: Result Comment: [place] Glucose Reference Range is dependent on time and content of last meal. Glucose of more than 200 mg/dL in a nonstressed, ambulatory subject supports the diagnosis of Diabetes Mellitus. ADA recommended reference range Performed By: #### C BC, CMP, LIPASE ####[address] Potassium Normal 3.5-5.1 [facility] Comment on above: Result Comment: Spec imen hemolyzed, redraw requested Performed By: #### C BC, CMP, LIPASE ####[address] Sodium [Moles/Vol] 139 mmol/L Normal 136-145 [facility] Comment on above: Performed By: #### C BC, CMP, LIPASE ####[place] [id number] [place] Urea nitrogen [Mass/Vol] 24 mg/dL Normal 7-25 [facility] Comment on above: Performed By: #### C BC, CMP, LIPASE ####[facility] [address] [place] [id number] [place] ECG 12 lead ECGon 09-08-2023 ECG 12 lead ECG [facility] [address] [place] [id number] Electrocardiograph Report Signed Patient: Dave Lugo MR#: [id number] : 1950 Acct:[id number] Age/Sex: 73 / M ADM Date: 09/08/23 Loc: Room: [address] [place] [address] Type: ADM IN Attending Dr: Barbie Osborn MD Ordering Provider: Enrique Chaparro DO Date of Service: 09/08/2301/27/744 ECG/ECG 12 lead ECG: Abdominal Pain Copies to: Test Reason : Blood Pressure : / mmHG Vent. Rate : 087 BPM Atrial Rate : 087 BPM P-R Int : 152 ms QRS Dur : 088 ms QT Int : 342 ms P-R-T Axes : 062 085 006 degrees QTc Int : 411 ms Normal sinus rhythm Nonspecific T wave abnormality Abnormal ECG When compared with ECG of 31-DEC-2022 09:25, Nonspecific T wave abnormality has replaced inverted T waves in Inferior leads Confirmed by ENRIQUE CHAPARRO DO ([id number]) on 09/08/2023 4:08:19 PM Referred By: Electronically Signed By:ENRIQUE CHAPARRO DO Transcribed By: MUS Signed By Enrique Chaparro DO 09/08 1608 Normal [facility] Glucose Poct Glucometerson 1 11-09-2022 Commemt1 Glu2: Cleaned Meter Normal [facility] Comment on above: Result Comment: PERF ORMED BY: [facility] [address] [place] [id number] PATHOLOGIST [employer] BUSINESS DEVELOPMENT MANAGER LAZARUS MILLER M.D. Performed By: #### A LT, LIPID, AST #### [facility] [address] [place] [id number] [place] Glucose [Mass/Vol] 235 mg/dL Normal [facility] Comment on above: Result Comment: [place] om Glucose Reference Range is dependent on time and content of last meal. Glucose of more than 200 mg/dL in a nonstressed, ambulatory subject supports the diagnosis of Diabetes Mellitus. Performed By: #### A LT, LIPID, AST #### [facility] [address] Glucose [Mass/Vol] 157 mg/dL Normal [facility] Comment on above: Result Comment: [place] om Glucose Reference Range is dependent on time and content of last meal. Glucose of more than 200 mg/dL in a nonstressed, ambulatory subject supports the diagnosis of Diabetes Mellitus. PERFORMED BY: [place] [address] PATHOLOGIST RETAIL BUSINESS DEVELOPMENT MANAGER LAZARUS MILLER M.D. Performed By: #### G LULS ####Point of Care testing, INR in Platelet poor plasma by Coagulation assayOrdered By: Enrique Chaparro on 09-08-2023 INR Coag (PPP) [Relative time] 1.0 {INR} Normal [facility] [place] Comment on above: INR Therapeutic Rang e A) Pre- and Peroperative OAT started two weeks before surgery. NOT HIP SURGERY: 1.5 - 2.5 HIP SURGERY: 2 - 3B) Primary and secondary prevention of venous THROMBOSIS: 2 - 3C) Active venous thrombosis, pulmonary embolismand prevention of recurrent venous thrombosis: 2 - 3D) Prevention of arterial thromboembolismincluding patients with mechanical heart valves: 3 - 4.5 Result Comment: INR Therapeutic Range A) Pre- and Peroperative OAT started two weeks before surgery. NOT HIP SURGERY: 1.5 - 2.5 HIP SURGERY: 2 - 3 B) Primary and secondary prevention of venous THROMBOSIS: 2 - 3 C) Active venous thrombosis, pulmonary embolism and prevention of recurrent venous thrombosis: 2 - 3 D) Prevention of arterial thromboembolism including patients with mechanical heart valves: 3 - 4.5 PERFORMED BY: [place] [address] PATHOLOGIST RETAIL BUSINESS DEVELOPMENT MANAGER LAZARUS MILLER M.D. Performed By: #### H S TROP, PT ####[facility] [id number] [place] [id number] [place] LDH Lactate Dehydrogenaseon 12-04-2023 LDH Lactate Dehydrogenase 222 U/L Normal 140-271 [facility] Comment on above: Result Comment: PERF ORMED BY: [address] [id number] PATHOLOGIST RETAIL BUSINESS DEVELOPMENT MANAGER LAZARUS MILLER M.D. Performed By: #### L DH #### [facility] [address] [place] [id number] [place] Lactate dehydrogenase [Enzym atic activity/volume] in Serum or Plasma by Lactate to pyOrdered By: Barbie Osborn on 09-08-2023 LDH Lactate to pyruvate reaction [Catalytic activity/Vol] 222 U/L 140-271 [facility] [place] Lipaseon 09-08-2023 Lipase [Catalytic activity/Vol] 35.0 U/L Normal 11.0-82.0 [facility] Comment on above: Result Comment: PERF ORMED BY: [place] [address] PATHOLOGIST RET[employer] BUSINESS DEVELOPMENT MANAGER LAZARUS MILLER M.D. Performed By: #### C BC, CMP, LIPASE ####[place] [id number] [place] [id number] [place] Monocyte distribution width [Entitic volume] in Blood by AutomatedOrdered By: Enrique Chaparro on 09-08-2023 Monocyte distribution width Auto (Bld) [Entitic vol] 19.22 % 0.00-20.00 [facility] Protein [Mass/volume] in Ser um or PlasmaOrdered By: Enrique Chaparro on 09-08-2023 Protein [Mass/Vol] 6.8 g/dL Normal 6.4-8.9 [facility] Comment on above: Performed By: #### C BC, CMP, LIPASE ####[place] [id number] [place] [id number] [place] Prothrombin time (PT)Ordered By: Enrique Chaparro on 09-08-2023 PT Coag (PPP) [Time] 11.5 s Normal 9.0-12.9 [facility] Comment on above: A hematocrit value g reater than 55% may lead to inaccurate results in coagulation testing. Patients having hematocrit values >55% require a special collection tube for coagulation studies. Please contact the laboratory at [phone] for redraw instructions. Result Comment: A he matocrit value greater than 55% may lead to inaccurate results in coagulation testing. Patients having hematocrit values >55% require a special collection tube for coagulation studies. Please contact the laboratory at [phone] for redraw instructions. Performed By: #### H S TROP, PT ####[place] [address] [address] Redraw Potassiumon 3 Potassium [Moles/Vol] 4.7 mmol/L Normal 3.5-5.1 [facility] Comment on above: Order Comment: PREVI OUS SPECIMEN HEMOLYZED. NOTIFIED ROEL Result Comment: PERF ORMED BY: [place] [address] PATHOLOGIST RETAIL BUSINESS DEVELOPMENT MANAGER LAZARUS MILLER M.D. Performed By: #### A LT, LIPID, AST #### [address] Serum globulin measurement b y calculation (mass/volume)Ordered By: Enrique Chaparro on 09-08-2023 Globulin (S) [Mass/Vol] 2.7 g/dL Normal [facility] Comment on above: Performed By: #### C BC, CMP, LIPASE ####[address] Serum or plasma albumin/glob ulin mass ratioOrdered By: Enrique Chaparro on 09-08-2023 Albumin/Globulin [Mass ratio] 1.5 {ratio} Normal [facility] [place] Comment on above: Performed By: #### C BC, CMP, LIPASE ####[address] Troponin I High Sensitivityo n 09-08-2023 Troponin I High Sensitivity 61.9 pg/mL Off scale high 0.0-20.0 [facility] Comment on above: Result Comment: Crit ical Result : Called to and read back by: SANDRA KOWALSKI at: 09/08/2023 17:42:57 by:JUSTINE PERFORMED BY: [place] [address] PATHOLOGIST RETAIL BUSINESS DEVELOPMENT MANAGER LAZARUS MILLER M.D. Performed By: #### H S TROP #### [facility] [address] [place], [place] [id number] [place] Troponin I High Sensitivity 66.0 pg/mL Off scale high 0.0-20.0 [facility] Comment on above: Result Comment: Crit ical Result : Called to and read back by: SANDRA KOWALSKI at: 09/08/2023 15:18:39 by:JUSTINE PERFORMED BY: [place] [address] PATHOLOGIST RETAIL BUSINESS DEVELOPMENT MANAGER LAZARUS MILLER M.D. Performed By: #### A LT, LIPID, AST #### [facility] [address] [place] [address] Troponin I High Sensitivity 69.9 pg/mL Off scale high 0.0-20.0 [facility] Comment on above: Result Comment: Crit ical Result : Called to and read back by: ALBERT RIOS at: 09/08/2023 07:41:36 by:JUSTINE PERFORMED BY: [place] [address] PATHOLOGIST RETAIL BUSINESS DEVELOPMENT MANAGER LAZARUS MILLER M.D. Performed By: #### H S TROP, PT ####[address] [address] [place] Troponin I.cardiac [Mass/vol ume] in Serum or Plasma by Detection limit <= 0.01 ng/Ordered By: Barbie Osborn on 09-08-2023 Troponin I.cardiac DL <= 0.01 ng/mL [Mass/Vol] 61.9 pg/mL 0.0-20.0 [facility] [place] Comment on above: Critical Result : Ca lled to and read back by: SANDRA KOWALSKI at: 09/08/2023 17:42:57 by:JUSTINE XR hand RT min 3V*on 023 XR hand RT min 3V* [facility] [address] [place] [address] [place] [address] XRay Report Signed Patient: Dave Lugo MR#: [id number] : 1950 Acct:[id number] Age/Sex: 73 / M ADM Date: 08/21/23 [place] [facility] [place]: Type[facility] CLI Attending Dr: Prieto Santo MD Copies to: Prieto Santo MD Ordering Provider: Prieto Santo MD Date of Service: 08/21/23 XR/XR hand RT min 3V*: Displaced fracture of neck of fifth metacarpal bone, right h RIGHT HAND - 4 views CLINICAL DATA: Follow-up fifth metacarpal fracture. COMPARISON: 07/31/2023 AP, lateral and oblique views were obtained along with supplemental AP view of the thumb. Fracture is again seen at the distal shaft of the fifth metacarpal. This is significant change in alignment. There is some developing callus formation. There is no new fracture or dislocation. There are no significant soft tissue abnormalities. XR/XR hand RT min 3V* IMPRESSION: STABLE HEALING FRACTURE AT THE FIFTH METACARPAL Impression dictated by: Destinee Alexander M.D.08/21/2023 5:09 PM Dictation Location: [place] [address] Transcribed By: [facility] 08/21/231708 Dictated By: Destinee Alexander MD 08/21/231705 Signed By: 08/21/231708 Normal [facility] XR hand RT min 3V*on XR hand RT min 3V* [facility] [address] [place] [address] [place] [address] XRay Report Signed Patient: Dave Lugo MR#: [id number] : 1950 Acct:[id number] Age/Sex: 73 / M ADM Date: 07/31/23 [place] [facility] [place]: Type: [place] CLI Attending Dr: Prieto Santo MD Copies to: Prieto Santo MD Ordering Provider: Prieto Santo MD Date of Service: 07/31/23 XR/XR hand RT min 3V*: Closed displaced fracture of neck of fifth metacarpal bone o RIGHT HAND - 3 views REASON FOR EXAM: Follow-up fifth metacarpal fracture COMPARISON: Right hand 07/22/2023 FINDINGS: Fracture line is less conspicuous involving the fifth metacarpal suggestive of healing response. No change in alignment. XR/XR hand RT min 3V* IMPRESSION: HEALING FIFTH METACARPAL FRACTURE. Impression dictated by: Sagar Caraballo Jr., DKaylee07/31/2023 2:07 PM Dictation Location: [facility] Transcribed By: LOBITO 07/31/23 1407 Dictated By: Sagar Caraballo Jr, DO 07/31/237 Signed By: 07/31/23 1407 Normal [facility] XR hand RT min 3V*on 023 XR hand RT min 3V* [facility] [place] [address] XRay Report Signed Patient: Dave Lugo MR#: [id number] : 1950 Acct:[id number] Age/Sex: 73 / M ADM Date: 07/22/23 Loc: ER Room: Type: PRE ER Attending Dr: Copies to: LALA Son Ordering Provider: LALA Son Date of Service: 07/22/23 XR/XR hand RT min 3V*: Extremity Injury, Lower XR hand RT min 3V* 07/22/2023 1:42 PM SIGNS AND SYMPTOMS: Pain in right fifth metacarpal after fall PROTOCOL: Frontal, lateral, and oblique radiograph of the right hand COMPARISON: None FINDINGS: There is an obliquely oriented fracture of the shaft of the fifth metacarpal without intra-articular extension. There is apex volar angulation measuring approximately 40 degrees. No additional fractures. There is accompanying soft tissue swelling. XR/XR hand RT min 3V* IMPRESSION: There is an obliquely oriented fracture of the shaft of the fifth metacarpal without intra-articular extension. There is apex volar angulation measuring approximately 40 degrees. Impression dictated by: Robin Hernandez M.D.07/22/2023 2:18 PM Dictation Location: [facility] Transcribed By: LOBITO 07/22/23 141 Dictated By: Robin Hernandez II, MD 07/22/231414 Signed By: 07/22/23 141 Normal [facility] XR knee RT 4V*on 07-22-2023 XR knee RT 4V* [facility] [address] [place] [address] [place] [address] XRay Report Signed Patient: Dave Lugo MR#: [id number] : 1950 Acct:[id number] Age/Sex: 73 / M ADM Date: 07/22/23 Loc: ER Room: Type: PRE ER Attending Dr: Copies to: LALA Son Ordering Provider: LALA Son Date of Service: 07/22/23 XR/XR knee RT 4V*: Extremity Injury, Lower XR knee RT 4V* 07/22/2023 1:42 PM SIGNS AND SYMPTOMS: Medial right knee pain after fall PROTOCOL: Frontal, lateral, and oblique radiographs of the right knee COMPARISON: None FINDINGS: There is mild narrowing of the weightbearing and patellofemoral joint spaces. There is chondrocalcinosis of menisci suggesting underlying CPPD. There is no fracture or dislocation. There is a small joint effusion. No significant soft tissue swelling. Vascular calcifications are present posteriorly. XR/XR knee RT 4V* IMPRESSION: Mild tricompartmental degenerative changes are noted with chondrocalcinosis of the menisci suggesting underlying CPPD. There is a small joint effusion. No fracture. Impression dictated by: Robin Hernandez M.D.07/22/2023 2:20 PM Dictation Location: [place] [address] Transcribed By: PWS 07/22/23 142 Dictated By: Robin Hernandez II, MD 07/22/231417 Signed By: 07/22/23 142 Normal [facility] A1C HEMOGLOBINon 06-02-2023 HbA1c (Bld) [Mass fraction] 5.9 % [facility] Other HbA1c (Bld) [Mass fraction]o n 06-02-2023 A1C HEMOGLOBIN [facility] [employer] Other PSA Screen (Yearly) w/Reflex on 05-16-2023 PSA Screen (Yearly) w/Reflex 1.450 ng/mL Normal 0.000-4.00 0 [facility] Comment on above: Order Comment: Is pa tient <50 yrs? Medicare does not pay <50.: OK OR...The date Patient is eligible for PSA Screen?: 05/2023 Is Medicare the insurance?: Y Did you verify eligibility (Dx Time) check TestViewGp: YES TO ALL Result Comment: PERF ORMED BY: [place] [address] PATHOLOGIST RETAIL BUSINESS DEVELOPMENT MANAGER LAZARUS MILLER M.D. Performed By: #### A LT, LIPID, AST #### [address] Prostate specific Ag [Mass/v olume] in Serum or PlasmaOrdered By: Lolita Adorno on 05-16-2023 Prostate specific Ag [Mass/Vol] 1.450 ng/mL 0.000-4.00 0 [facility] XR lumbar spine 6V w bending on 05-06-2023 XR lumbar spine 6V w bending [facility] Main [place] [address] [place] [address] XRay Report Signed Patient: Dave Luog MR#: [id number] : 1950 Acct:[id number] Age/Sex: 73 / M ADM Date: 05/06/23 Loc: XD Room: Type: [facility] Attending Dr: Beth REED Copies to: DEREK Ohara Ordering Provider: DEREK Ohara Date of Service: 05/06/23 XR/XR lumbar spine 6V w bending: M43.16 6 views of the Lumbar Spinewith bending HISTORY: LEFT back pain since Friday COMPARISON: 12/23/22 POSTSURGICAL CHANGES: Stable postsurgical changes. No hardware failure. BONY ALIGNMENT: No hypermobility. Minor degenerative listhesis. Mild straightening of lumbar lordosis. Mild scoliosis FRACTURE: None DEGENERATIVE CHANGES: Similar moderate degenerative changes. SOFT TISSUES: Unremarkable BONY MINERALIZATION:Adequate XR/XR lumbar spine 6V w bending IMPRESSION: No hypermobility. Stable postsurgical and degenerative change. Impression dictated by: Rob Chung M.D.05/06/2023 2:57 PM Dictation Location: [place] [address] Transcribed By: [facility] 05/06/23 1457 Dictated By: Rob Chung DO 05/06/23 1455 Signed By: 05/06/23 145 Normal [facility] XR lumbar spine 6V w bending [facility] [employer] Other XR lumbar spine 6V w bending [facility] [employer] Other XR lumbar spine 6V w bending [address] [place] [address] [employer] Other XR lumbar spine 6V [place] [address] [facility] Other XR lumbar spine 6V w bending XRay Report [facility] Other XR lumbar spine 6V w bending Signed [facility] Other XR lumbar spine 6V w bending Patient: Dave Lugo MR#: [id number] [facility] Other XR lumbar spine 6V w bending [id number] [facility] Other XR lumbar spine 6V w bending : 1950 Acct:[id number] [facility] Other XR lumbar spine 6V w bending Age/Sex: 73 / M ADM Date: 05/06/23 [facility] Other XR lumbar spine 6V w bending Loc: XD Room: Type: [facility] Other XR lumbar spine 6V w bending Attending Dr: Beth LEÓNC [facility] Other XR lumbar spine 6V w bending Copies to: MAU OharaC [facility] Other XR lumbar spine 6V w bending Ordering Provider: Beth Lowe INFORMATION TECHNOLOGY OFFICER-C [facility] Other XR lumbar spine 6V w bending Date of Service: 05/06/23 [facility] Other XR lumbar spine 6V w bending XR/XR lumbar spine 6V w bending: M43.16 [facility] Other XR lumbar spine 6V w bending 6 views of the Lumbar Spinewith bending [facility] Other XR lumbar spine 6V w bending HISTORY: LEFT back pain since Friday [facility] Other XR lumbar spine 6V w bending COMPARISON: 12/23/22 [facility] Other XR lumbar spine 6V w bending POSTSURGICAL CHANGES: Stable postsurgical changes. No hardware failure. [facility] Other XR lumbar spine 6V w bending BONY ALIGNMENT: No hypermobility. Minor degenerative listhesis. Mild straightening of lumbar [facility] Other XR lumbar spine 6V w bending lordosis. Mild scoliosis [employer] Other XR lumbar spine 6V w bending FRACTURE: None [facility] Other XR lumbar spine 6V w bending DEGENERATIVE CHANGES: Similar moderate degenerative changes. [facility] Other XR lumbar spine 6V w bending SOFT TISSUES: Unremarkable [facility] Other XR lumbar spine 6V w bending BONY MINERALIZATION:Adequate [facility] Other XR lumbar spine 6V w bending XR/XR lumbar spine 6V w bending [facility] Other XR lumbar spine 6V w bending IMPRESSION: No hypermobility. Stable postsurgical and degenerative change. [facility] Other XR lumbar spine 6V w bending Impression dictated by: Rob Chung M.D.05/06/2023 2:57 PM [facility] Other XR lumbar spine 6V w bending Dictation Location: [facility] Other XR lumbar spine 6V w bending Transcribed By: PWS 05/06/23 [facility] Other XR lumbar spine 6V w bending Dictated By: Rob Chung DO 05/06/23 [facility] [employer] Other XR lumbar spine 6V w bending Signed By: [facility] Other XR lumbar spine 6V w bending 05/06/23 [facility] [employer] Other Alanine aminotransferase [En zymatic activity/volume] in Serum or PlasmaOrdered By: Lolita Adorno on 04-30-2023 ALT [Catalytic activity/Vol] 18 U/L Normal 7-52 [facility] Comment on above: Order Comment: Reaso n for Exam Medicare annual wellness visit, subsequent;Prostate cancer s FASTING. JKW Performed By: #### C MP, LIPID, [id number], CBC, FE PRO ####[facility] [id number] [place] [address] [place] Albumin [Mass/volume] in Ser um or Plasma by Bromocresol green (BCG) dye binding methoOrdered By: Lolita Adorno on 04-30-2023 Albumin BCG dye [Mass/Vol] 4.1 g/dL 3.5-5.7 [facility] Alkaline phosphatase [Enzyma tic activity/volume] in Serum or PlasmaOrdered By: Lolita Adorno on 04-30-2023 ALP [Catalytic activity/Vol] 87 U/L Normal 34-104 [facility] Comment on above: Order Comment: Reaso n for Exam Medicare annual wellness visit, subsequent;Prostate cancer s FASTING. JKW Result Comment: PERF ORMED BY: [facility] [address] [place] [address] PATHOLOGIST [employer] BUSINESS DEVELOPMENT MANAGER LAZARUS MILLER M.D. Performed By: #### C MP, LIPID, [id number], CBC, FE PRO ####[address] Aspartate aminotransferase [ Enzymatic activity/volume] in Serum or PlasmaOrdered By: Lolita Adorno on 04-30-2023 AST [Catalytic activity/Vol] 18 U/L Normal 13-39 [facility] Comment on above: Order Comment: Reaso n for Exam Medicare annual wellness visit, subsequent;Prostate cancer s FASTING. JKW Performed By: #### C MP, LIPID, [id number], CBC, FE PRO ####[address] Automated basophil %Ordered By: Lolita Adorno on 04-30-2023 Basophils/100 WBC (Bld) 0.6 % Normal . [facility] Comment on above: Order Comment: Reaso n for Exam Medicare annual wellness visit, subsequent;Prostate cancer s Performed By: #### C MP, LIPID, [id number], CBC, FE PRO ####[address] Automated basophil countOrde red By: Lolita Adorno on 04-30-2023 Basophils (Bld) [#/Vol] 0.0 10*3/uL Normal 0.0-0.2 [facility] Comment on above: Order Comment: Reaso n for Exam Medicare annual wellness visit, subsequent;Prostate cancer s Result Comment: PERF ORMED BY: [facility] [address] [facility] [place] [address] PATHOLOGIST [employer] BUSINESS DEVELOPMENT MANAGER LAZARUS MILLER M.D. Performed By: #### C MP, LIPID, [id number], CBC, FE PRO ####[address] Automated blood monocyte cou ntOrdered By: Lolita Adorno on 04-30-2023 Monocytes (Bld) [#/Vol] 0.9 10*3/uL High 0.0-0.8 [facility] Comment on above: Order Comment: Reaso n for Exam Medicare annual wellness visit, subsequent;Prostate cancer s Performed By: #### C MP, LIPID, [id number], CBC, FE PRO ####[place] [address] [address] Automated eosinophil %Ordere d By: Lolita Vaughnerer on 04-30-2023 Eosinophils/100 WBC (Bld) 4.9 % Normal . [facility] Comment on above: Order Comment: Reaso n for Exam Medicare annual wellness visit, subsequent;Prostate cancer s Performed By: #### C MP, LIPID, [id number], CBC, FE PRO ####[address] Automated eosinophil countOr dered By: Lolita Vaughnidar on 04-30-2023 Eosinophils (Bld) [#/Vol] 0.3 10*3/uL Normal 0.0-0.45 [facility] Comment on above: Order Comment: Reaso n for Exam Medicare annual wellness visit, subsequent;Prostate cancer s Performed By: #### C MP, LIPID, [id number], CBC, FE PRO ####[address] Automated monocyte %Ordered By: Lolita Mendeserer on 04-30-2023 Monocytes/100 WBC (Bld) 12.5 % Normal . [facility] Comment on above: Order Comment: Reaso n for Exam Medicare annual wellness visit, subsequent;Prostate cancer s Performed By: #### C MP, LIPID, [id number], CBC, FE PRO ####[address] Automated neutrophil %Ordere d By: Lolita Schwerer on 04-30-2023 Neutrophils/100 WBC (Bld) 57.6 % Normal . [facility] Comment on above: Order Comment: Reaso n for Exam Medicare annual wellness visit, subsequent;Prostate cancer s Performed By: #### C MP, LIPID, [id number], CBC, FE PRO ####[address] Bilirubin.total [Mass/volume ] in Serum or PlasmaOrdered By: Lolita Mendeserer on 04-30-2023 Bilirubin [Mass/Vol] 0.4 mg/dL Normal 0.3-1.0 [facility] Comment on above: Order Comment: Reaso n for Exam Medicare annual wellness visit, subsequent;Prostate cancer s FASTING. JKW Performed By: #### C MP, LIPID, [id number], CBC, FE PRO ####[facility] [id number] [place] [address] [place] Calcium [Mass/volume] in Ser um or PlasmaOrdered By: Lolita Schwerer on 04-30-2023 Calcium [Mass/Vol] 8.8 mg/dL Normal 8.6-10.3 [facility] Comment on above: Order Comment: Reaso n for Exam Medicare annual wellness visit, subsequent;Prostate cancer s FASTING. JKW Performed By: #### C MP, LIPID, [id number], CBC, FE PRO ####[facility] [id number] [place] [address] [place] Carbon dioxide, total [Moles /volume] in Serum or PlasmaOrdered By: Lolita Schwerer on 04-30-2023 CO2 [Moles/Vol] 25.4 mmol/L Normal 21.0-31.0 [facility] Comment on above: Order Comment: Reaso n for Exam Medicare annual wellness visit, subsequent;Prostate cancer s FASTING. JKW Performed By: #### C MP, LIPID, [id number], CBC, FE PRO ####[facility] [id number] [place] [address] [place] Chloride [Moles/volume] in S antolin or PlasmaOrdered By: Lolita Schwerer on 04-30-2023 Chloride [Moles/Vol] 110 mmol/L High 98-107 [facility] Comment on above: Order Comment: Reaso n for Exam Medicare annual wellness visit, subsequent;Prostate cancer s FASTING. JKW Performed By: #### C MP, LIPID, [id number], CBC, FE PRO ####[facility] [id number] [place] [address] [place] Cholesterol [Mass/volume] in Serum or PlasmaOrdered By: Lolita Schwerer on 04-30-2023 Cholesterol [Mass/Vol] 114 mg/dL Low 140-200 [facility] Comment on above: Chol less than 200 m g/dl low riskChol 201-239 mg/dl borderline riskChol 240 mg/dl and greater high risk Order Comment: Reaso n for Exam Medicare annual wellness visit, subsequent;Prostate cancer s FASTING. JKW TOO EARLY FOR PSAS. PT WILL RETURN IN MAY Result Comment: Chol less than 200 mg/dl low risk Chol 201-239 mg/dl borderline risk Chol 240 mg/dl and greater high risk Performed By: #### C MP, LIPID, [id number], CBC, FE PRO ####[facility] [id number] [place] [id number] [place] Cholesterol in LDL Calc [Mas s/Vol]Ordered By: Lolita Adorno on 04-30-2023 Cholesterol in LDL [Mass/Vol] 42 mg/dL 0-100 [facility] Comment on above: LDL ATP III CLASSIFI CATIONLDL less than 100 mg/dL OptimalLDL 100-129 mg/dL Near or above optimalLDL 130-159 mg/dL Borderline highLDL 160-189 mg/dL HighLDL greater than 189 mg/dL Very high Cholesterol in VLDL Calc [Ma ss/Vol]Ordered By: Lolita Adorno on 04-30-2023 Cholesterol in VLDL [Mass/Vol] 40 mg/dL [facility] Complete Blood Count Auto Di ffon 04-30-2023 Mean Corpuscular HGB Conc 33.4 g/dL Normal 32.5-35.6 [facility] Comment on above: Order Comment: Reaso n for Exam Medicare annual wellness visit, subsequent;Prostate cancer s Performed By: #### C MP, LIPID, [id number], CBC, FE PRO ####[facility] [id number] [place] [address] [place] NRBC% 0.1 /100{WBC} Normal 0-0.5 [facility] Comment on above: Order Comment: Reaso n for Exam Medicare annual wellness visit, subsequent;Prostate cancer s Performed By: #### C MP, LIPID, [id number], CBC, FE PRO ####[facility] [id number] [place] [address] [place] Comprehensive Metabolic Pane javier 04-30-2023 Albumin [Mass/Vol] 4.1 g/dL Normal 3.5-5.7 [facility] Comment on above: Order Comment: Reaso n for Exam Medicare annual wellness visit, subsequent;Prostate cancer s FASTING. JKW Performed By: #### C MP, LIPID, [id number], CBC, FE PRO ####[place] [address] [place] [address] [place] GFR/1.73 sq M.predicted MDRD (S/P/Bld) [Vol rate/Area] 40.603 mL/min/{1.73_m2} Normal [facility] Comment on above: Order Comment: Reaso n for Exam Medicare annual wellness visit, subsequent;Prostate cancer s FASTING. JKW Performed By: #### C MP, LIPID, [id number], CBC, FE PRO ####[place] [address] [place] [address] [place] Creatinine [Mass/volume] in Serum or PlasmaOrdered By: Lolita Adorno on 04-30-2023 Creatinine [Mass/Vol] 1.75 mg/dL High 0.70-1.30 [facility] Comment on above: Order Comment: Reaso n for Exam Medicare annual wellness visit, subsequent;Prostate cancer s FASTING. JKW Performed By: #### C MP, LIPID, [id number], CBC, FE PRO ####[place] [address] [place] [address] [place] Erythrocyte distribution wid th [Ratio] by Automated countOrdered By: Lolita Adorno on 04-30-2023 Erythrocyte distribution width (RBC) [Ratio] 14.0 % Normal 12.0-14.8 [facility] Comment on above: Order Comment: Reaso n for Exam Medicare annual wellness visit, subsequent;Prostate cancer s Performed By: #### C MP, LIPID, [id number], CBC, FE PRO ####[address] [address] [place] Erythrocytes [#/volume] in B lood by Automated countOrdered By: Lolita Adorno on 04-30-2023 RBC (Bld) [#/Vol] 4.32 10*6/uL Normal 3.90-5.60 [facility] Comment on above: Order Comment: Reaso n for Exam Medicare annual wellness visit, subsequent;Prostate cancer s Performed By: #### C MP, LIPID, [id number], CBC, FE PRO ####[id number] [place] [address] [place] FE PROon 04-30-2023 % Iron Saturation 19.8 % Low 20-50 [facility] Comment on above: Order Comment: Reaso n for Exam Medicare annual wellness visit, subsequent;Prostate cancer s FASTING. JKW TOO EARLY FOR PSAS. PT WILL RETURN IN MAY Performed By: #### C MP, LIPID, [id number], CBC, FE PRO ####[place] [address] [place] [id number] [place] Total Iron Binding Capacity 293 ug/dL Normal 255-450 [facility] Comment on above: Order Comment: Reaso n for Exam Medicare annual wellness visit, subsequent;Prostate cancer s FASTING. JKW TOO EARLY FOR PSAS. PT WILL RETURN IN MAY Performed By: #### C MP, LIPID, [id number], CBC, FE PRO ####[place] [address] [place] [id number] [place] Ferritin [Mass/volume] in Se rum or PlasmaOrdered By: Lolita Adorno on 04-30-2023 Ferritin [Mass/Vol] 44.2 ng/mL Normal 23.9-336.2 [facility] Comment on above: Order Comment: Reaso n for Exam Medicare annual wellness visit, subsequent;Prostate cancer s FASTING. JKW TOO EARLY FOR PSAS. PT WILL RETURN IN MAY Performed By: #### C MP, LIPID, [id number], CBC, FE PRO ####[place] [address] [place] [id number] [place] Folate [Mass/volume] in Seru m or PlasmaOrdered By: Lolita Adorno on 04-30-2023 Folate [Mass/Vol] 28.0 ng/mL >5.9 [facility] Comment on above: Folate reference ran ge: >5.9 ng/mlThe WHO technical consultation on folate and vitamin [id number] has determined that folate concentrations lessthan 4 ng/ml are considered deficient. Glucose [Mass/volume] in Ser um or PlasmaOrdered By: Lolita Adorno on 04-30-2023 Glucose [Mass/Vol] 103 mg/dL High 70-100 [facility] Comment on above: ADA recommended refe rence rangeRandom Glucose Reference Range is dependent on time and content of last meal. Glucose of more than 200 mg/dL in a nonstressed, ambulatory subject supports the diagnosis of Diabetes Mellitus. Order Comment: Reaso n for Exam Medicare annual wellness visit, subsequent;Prostate cancer s FASTING. JKW Result Comment: [place] om Glucose Reference Range is dependent on time and content of last meal. Glucose of more than 200 mg/dL in a nonstressed, ambulatory subject supports the diagnosis of Diabetes Mellitus. ADA recommended reference range Performed By: #### C MP, LIPID, [id number], CBC, FE PRO ####[facility] [place] [id number] [place] Hematocrit [Volume Fraction] of Blood by Automated countOrdered By: Lolita Adorno on 04-30-2023 Hematocrit (Bld) [Volume fraction] 36.3 % Low 38.8-50.0 [facility] Comment on above: Order Comment: Shanao n for Exam Medicare annual wellness visit, subsequent;Prostate cancer s Performed By: #### C MP, LIPID, [id number], CBC, FE PRO ####[place] [address] [place] [id number] [place] Hemoglobin [Mass/volume] in BloodOrdered By: Lolita Adorno on 04-30-2023 Hemoglobin (Bld) [Mass/Vol] 12.1 g/dL Low 13.0-17.0 [facility] Comment on above: Order Comment: Shanao n for Exam Medicare annual wellness visit, subsequent;Prostate cancer s Performed By: #### C MP, LIPID, [id number], CBC, FE PRO ####[facility] [id number] [place] [address] [place] Iron [Mass/volume] in Serum or PlasmaOrdered By: Lolita Adorno on 04-30-2023 Iron [Mass/Vol] 58 ug/dL Normal 50-212 [facility] Comment on above: Order Comment: Reaso n for Exam Medicare annual wellness visit, subsequent;Prostate cancer s FASTING. JKW TOO EARLY FOR PSAS. PT WILL RETURN IN MAY Performed By: #### C MP, LIPID, [id number], CBC, FE PRO ####[facility] [id number] [place] [address] [place] Iron binding capacity [Mass/ volume] in Serum or PlasmaOrdered By: Lolita Adorno on 04-30-2023 Iron binding capacity [Mass/Vol] 293 ug/dL 255-450 [facility] Iron saturation [Mass Fracti on] in Serum or PlasmaOrdered By: Lolita Adorno on 04-30-2023 Iron saturation [Mass fraction] 19.8 % 20-50 [facility] Leukocytes [#/volume] correc ruben for nucleated erythrocytes in Blood by Automated counOrdered By: Lolita Adorno on 04-30-2023 WBC corrected for nucl RBC Auto (Bld) [#/Vol] 7.1 10*3/uL 4.1-10.5 [facility] Leukocytes [#/volume] in Blo od by Automated countOrdered By: Lolita Adorno on 04-30-2023 WBC (Bld) [#/Vol] 7.1 10*3/uL Normal 4.1-10.5 [facility] Comment on above: Order Comment: Reaso n for Exam Medicare annual wellness visit, subsequent;Prostate cancer s Performed By: #### C MP, LIPID, [id number], CBC, FE PRO ####[facility] [id number] [place] [address] [place] Lipid Panelon 04-30-2023 LDL Cholesterol,Calculated 42 mg/dL Normal 0-100 [facility] Comment on above: Order Comment: Reaso n for Exam Medicare annual wellness visit, subsequent;Prostate cancer s FASTING. JKW TOO EARLY FOR PSAS. PT WILL RETURN IN MAY Result Comment: LDL ATP III CLASSIFICATION LDL less than 100 mg/dL Optimal LDL 100-129 mg/dL Near or above optimal LDL 130-159 mg/dL Borderline high LDL 160-189 mg/dL High LDL greater than 189 mg/dL Very high Performed By: #### C MP, LIPID, [id number], CBC, FE PRO ####[place] [address] Triglyceride w/Reflex 202 mg/dL High 0-149 [facility] Comment on above: Order Comment: Reaso n for Exam Medicare annual wellness visit, subsequent;Prostate cancer s FASTING. JKW TOO EARLY FOR PSAS. PT WILL RETURN IN MAY Result Comment: TRIG ATP III CLASSIFICATION TRIG less than 150 mg/dL Normal TRIG 150-199 mg/dL Borderline high TRIG 200-500 mg/dL High TRIG greater than 500 mg/dL Very high Standard traceable to the Center for Disease Conrtrol and Prevention (CDC) test method. Performed By: #### C MP, LIPID, [id number], CBC, FE PRO ####[place] [address] VLDL CHOLESTEROL 40 mg/dL Normal [facility] Comment on above: Order Comment: Reaso n for Exam Medicare annual wellness visit, subsequent;Prostate cancer s FASTING. JKW TOO EARLY FOR PSAS. PT WILL RETURN IN MAY Performed By: #### C MP, LIPID, [id number], CBC, FE PRO ####[place] [address] Lymphocytes [#/volume] in Bl ood by Automated countOrdered By: Lolita Adorno on 04-30-2023 Lymphocytes (Bld) [#/Vol] 1.7 10*3/uL Normal 1.00-4.8 [facility] Comment on above: Order Comment: Reaso n for Exam Medicare annual wellness visit, subsequent;Prostate cancer s Performed By: #### C MP, LIPID, [id number], CBC, FE PRO ####[address] Lymphocytes/100 leukocytes i n Blood by Automated countOrdered By: Lolita Adorno on 04-30-2023 Lymphocytes/100 WBC (Bld) 24.4 % Normal . [facility] Comment on above: Order Comment: Reaso n for Exam Medicare annual wellness visit, subsequent;Prostate cancer s Performed By: #### C MP, LIPID, [id number], CBC, FE PRO ####[place] [address] MCH [Entitic mass] by Automa ruben countOrdered By: Lolita Adorno on 04-30-2023 MCH (RBC) [Entitic mass] 28.1 pg Normal 27.5-35.2 [facility] Comment on above: Order Comment: Reaso n for Exam Medicare annual wellness visit, subsequent;Prostate cancer s Performed By: #### C MP, LIPID, [id number], CBC, FE PRO ####[place] [address] MCHC Auto (RBC) [Mass/Vol]Or dered By: Lolita Adorno on 04-30-2023 MCHC (RBC) [Mass/Vol] 33.4 g/dL 32.5-35.6 [facility] MCV [Entitic volume] by Auto mated countOrdered By: Lolita Adorno on 04-30-2023 MCV (RBC) [Entitic vol] 84.0 fL Normal 83.5-101 [facility] Comment on above: Order Comment: Reaso n for Exam Medicare annual wellness visit, subsequent;Prostate cancer s Performed By: #### C MP, LIPID, [id number], CBC, FE PRO ####[address] Neutrophils [#/volume] in Bl ood by Automated countOrdered By: Lolita Adorno on 04-30-2023 Neutrophils (Bld) [#/Vol] 4.1 10*3/uL Normal 1.8-7.7 [facility] Comment on above: Order Comment: Reaso n for Exam Medicare annual wellness visit, subsequent;Prostate cancer s Performed By: #### C MP, LIPID, [id number], CBC, FE PRO ####[place] [address] No Panel InformationOrdered By: Lolita Adorno on 04-30-2023 Estimated GFR (CKD-EPI) 40.603 mL/Min [facility] Creatinine Clearance (Chem N/A [facility] Nucleated erythrocytes [Pres ence] in Blood by Automated countOrdered By: Lolita Adorno on 04-30-2023 Nucleated RBC Auto Ql (Bld) 0.1 /100{WBC} 0-0.5 [facility] Platelet mean volume [Entiti c volume] in Blood by Automated countOrdered By: Lolita Adorno on 04-30-2023 Platelet mean volume (Bld) [Entitic vol] 8.2 fL Normal 6.6-10.1 [facility] Comment on above: Order Comment: Reaso n for Exam Medicare annual wellness visit, subsequent;Prostate cancer s Performed By: #### C MP, LIPID, [id number], CBC, FE PRO ####[facility] [facility] [id number] [place] [address] [place] Platelets [#/volume] in Bloo d by Automated countOrdered By: Lolita Adorno on 04-30-2023 Platelets (Bld) [#/Vol] 185 10*3/uL Normal 150-450 [facility] Comment on above: Order Comment: Reaso n for Exam Medicare annual wellness visit, subsequent;Prostate cancer s Performed By: #### C MP, LIPID, [id number], CBC, FE PRO ####[facility] [id number] [place] [address] [place] Potassium [Moles/volume] in Serum or PlasmaOrdered By: Lolita Adorno on 04-30-2023 Potassium [Moles/Vol] 4.5 mmol/L Normal 3.5-5.1 [facility] Comment on above: Order Comment: Reaso n for Exam Medicare annual wellness visit, subsequent;Prostate cancer s FASTING. JKW Performed By: #### C MP, LIPID, [id number], CBC, FE PRO ####[facility] [id number] [place] [address] [place] Protein [Mass/volume] in Ser um or PlasmaOrdered By: Lolita Adorno on 04-30-2023 Protein [Mass/Vol] 6.3 g/dL Low 6.4-8.9 [facility] Comment on above: Order Comment: Reaso n for Exam Medicare annual wellness visit, subsequent;Prostate cancer s FASTING. JKW Performed By: #### C MP, LIPID, [id number], CBC, FE PRO ####[facility] [place] [id number] [place] Serum globulin measurement b y calculation (mass/volume)Ordered By: Lolita Adorno on 04-30-2023 Globulin (S) [Mass/Vol] 2.2 g/dL Normal [facility] Comment on above: Order Comment: Reaso n for Exam Medicare annual wellness visit, subsequent;Prostate cancer s FASTING. JKW Performed By: #### C MP, LIPID, [id number], CBC, FE PRO ####[place] [id number] Serum or plasma albumin/glob ulin mass ratioOrdered By: Lolita Adorno on 04-30-2023 Albumin/Globulin [Mass ratio] 1.9 {ratio} Normal [facility] Comment on above: Order Comment: Reaso n for Exam Medicare annual wellness visit, subsequent;Prostate cancer s FASTING. JKW Performed By: #### C MP, LIPID, [id number], CBC, FE PRO ####[place] [id number] Serum or plasma anion gap de terminationOrdered By: Lolita Adorno on 04-30-2023 Anion gap [Moles/Vol] 11.1 mmol/L Normal 6.0-15.0 [facility] Comment on above: Order Comment: Reaso n for Exam Medicare annual wellness visit, subsequent;Prostate cancer s FASTING. JKW Performed By: #### C MP, LIPID, [id number], CBC, FE PRO ####[facility] [id number] [place] [id number] [place] Serum or plasma high density lipoprotein (HDL) cholesterol measurementOrdered By: Lolita Adorno on 04-30-2023 Cholesterol in HDL [Mass/Vol] 32 mg/dL Normal 23-92 [facility] Comment on above: HDL CHOL ATP-III CLA SSIFICATION Cardiovascular RiskHDL > or equal to 60 mg/dL LOWHDL < 40 mg/dL HIGH Order Comment: Reaso n for Exam Medicare annual wellness visit, subsequent;Prostate cancer s FASTING. JKW TOO EARLY FOR PSAS. PT WILL RETURN IN MAY Result Comment: HDL CHOL ATP-III CLASSIFICATION Cardiovascular Risk HDL > or equal to 60 mg/dL LOW HDL < 40 mg/dL HIGH Performed By: #### C MP, LIPID, [id number], CBC, FE PRO ####[facility] [id number] [place] [id number] [place] Serum or plasma total choles terol/high density lipoprotein (HDL) cholesterol mass ratOrdered By: Lolita Aodrno on 04-30-2023 Cholesterol.total/Flavia sterol in HDL [Mass ratio] 3.6 {ratio} Normal <5.0 [facility] Comment on above: Order Comment: Reaso n for Exam Medicare annual wellness visit, subsequent;Prostate cancer s FASTING. JKW TOO EARLY FOR PSAS. PT WILL RETURN IN MAY Performed By: #### C MP, LIPID, [id number], CBC, FE PRO ####[place] [id number] [place] Sodium [Moles/volume] in Ser um or PlasmaOrdered By: Lolita Adorno on 04-30-2023 Sodium [Moles/Vol] 142 mmol/L Normal 136-145 [facility] Comment on above: Order Comment: Reaso n for Exam Medicare annual wellness visit, subsequent;Prostate cancer s FASTING. JKW Performed By: #### C MP, LIPID, [id number], CBC, FE PRO ####[facility] [id number] [place], [place] [id number] [place] Transferrin [Mass/volume] in Serum or PlasmaOrdered By: Lolita Adorno on 04-30-2023 Transferrin [Mass/Vol] 209 mg/dL Normal 203-362 [facility] Comment on above: Order Comment: Reaso n for Exam Medicare annual wellness visit, subsequent;Prostate cancer s FASTING. JKW TOO EARLY FOR PSAS. PT WILL RETURN IN MAY Performed By: #### C MP, LIPID, [id number], CBC, FE PRO ####[facility] [id number] [place] [address] [place] Triglyceride [Mass/volume] i n Serum or PlasmaOrdered By: Lolita Adorno on 04-30-2023 Triglyceride [Mass/Vol] 202 mg/dL 0-149 [facility] Comment on above: TRIG ATP III CLASSIF ICATIONTRIG less than 150 mg/dL NormalTRIG 150-199 mg/dL Borderline highTRIG 200-500 mg/dL High TRIG greater than 500 mg/dL Very highStandard traceable to the Center for Disease Conrtrol and Prevention (CDC) test method. Urea nitrogen [Mass/volume] in Serum or PlasmaOrdered By: Lolita Adorno on 04-30-2023 Urea nitrogen [Mass/Vol] 29 mg/dL High 7-25 [facility] Comment on above: Order Comment: Reaso n for Exam Medicare annual wellness visit, subsequent;Prostate cancer s FASTING. JKW Performed By: #### C MP, LIPID, [id number], CBC, FE PRO ####[facility] [place] [address] [place] Vit. B12/Folate Profileon Folate 28.0 ng/mL Normal >5.9 [facility] Comment on above: Order Comment: Reaso n for Exam Medicare annual wellness visit, subsequent;Prostate cancer s FASTING. JKW TOO EARLY FOR PSAS. PT WILL RETURN IN MAY Result Comment: Marie te reference range: >5.9 ng/ml The WHO technical consultation on folate and vitamin b12 deficiencies has determined that folate concentrations less than 4 ng/ml are considered deficient. PERFORMED BY: [facility] [address] [place] [address] PATHOLOGIST [employer] DEVELOPMENT MANAGER LAZARUS MILLER M.D. Performed By: #### C MP, LIPID, [id number], CBC, FE PRO ####[facility] [place] [address] [place] Vitamin B12 ser/plasOrdered By: Lolita Adorno on 04-30-2023 Cobalamin (Vitamin B12) [Mass/Vol] 1086 pg/mL High 180-914 [facility] Comment on above: Order Comment: Reaso n for Exam Medicare annual wellness visit, subsequent;Prostate cancer s FASTING. JKW TOO EARLY FOR PSAS. PT WILL RETURN IN MAY Performed By: #### C MP, LIPID, [id number], CBC, FE PRO ####[facility] [id number] [place] [address] [place] Office Visit (Cardiology)on 04-22-2023 Follow-up visit Diagnoses/Problems Assessed 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of eek coronary artery of eek heart without angina pectoris (414.01) (I25.10) S/P PTCA (percutaneous transluminal coronary angioplasty) (V45.82) (Z98.61) 2017 RCA History of ND (myocardial infarction) (412) (I25.2) Essential hypertension (401.9) (I10) Hyperlipidemia (272.4) (E78.5) Diabetes mellitus (250.00) (E11.9) Stage 3a chronic kidney disease (585.3) (N18.31) Current some day smoker (305.1) (F17.200) 1 pack every 2 weeks Overweight with body mass index (BMI) of 26 to 26.9 in adult (278.02,V85.22) (E66.3,Z68.26) At risk for falls (V15.88) (Z91.81) Orders 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of eek coronary artery of eek heart without angina pectoris Changed: From Aspirin EC 81 MG TBEC TAKE 1 TABLET DAILY DIRECTED To Aspirin 81 MG Oral Tablet Delayed Release TAKE 1 TABLET DAILY Essential hypertension Renew: hydrALAZINE HCl - 50 MG Oral Tablet; TAKE 1 TABLET TWICE DAILY Overweight with body mass index (BMI) of 26 to 26.9 in adult Healthy Weight Tips; Status:Complete - Retrospective Authorization; Done: [id number] Some eating tips that can help you lose weight.; Status:Complete - Retrospective Authorization; Done: [id number] SocHx: Current some day smoker You need to stop smoking. Though it is not easy, more than half of all adult smokers have quit. We encourage you to write down all the reasons you should quit smoking and set a quit date for yourself. Ask us how we can help. You may also call 6-025-HYWZ-NOW for free resources and assistance.; Status:Complete - Retrospective Authorization; Done: [id number] Tobacco Use Screening; Status:Complete; Done: [id number] Patient Instructions Please bring all medicines, vitamins, and herbal supplements with you when you come to the office. Prescriptions will not be filled unless you are compliant with your follow up appointments or have a follow up appointment scheduled as per instruction of your physician. Refills should be requested at the time of your visit. Follow up in 6 months Same meds Chief Complaint DAVE LUGO is being seen for a 6 month follow-up of. Patient is in the office for follow-up for the problems noted below. He has had no cardiac events since he was last seen. Recent lab data which I reviewed and discussed with the patient were acceptable. His lipids are under excellent control. He has mild anemia due to chronic kidney disease and his creatinine is 1.7 which is chronic. His diabetes seems to be under control. He denies any angina or symptoms of heart failure. The patient has tendency to fall due to weakness in his legs. He smokes occasionally and he was discouraged from continuing tobacco use. ASSESSMENT AND PLAN: 1. Coronary artery disease, stable. No cardiac investigations are needed continue aggressive risk factors modifications. 2. Status post bare metal stent in the right coronary artery in 2006 with repeat angioplasty of the RCA 2016. Nuclear stress test September 2020 revealed inferolateral infarction EF 52%, no ischemia, risk factors are under control. 3. Patient is at risk for fall, education to prevent falls were discussed with him. 5. Hyperlipidemia, under excellent control 6. Hypertension, under control. 7. Overweight, encouraged patient to cut back calorie intake and exercise on regular basis. 8. 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 No heart failure or LV systolic dysfunction. Secondary preventive measures are in place 9. Mild but active tobacco use, encouraged the patient to quit smoking completely 10. Chronic kidney disease due to diabetes. This is stable. 11. Mild anemia due to chronic kidney disease and currently inconsequential. 12. Slight LV systolic dysfunction, he is on vasodilators with hydralazine and nitrates. Avoided TITI inhibitors or ARB due to his kidney disease Surgical History Problems History of Back surgery History of Cardiac catheterization History of Cataract surgery History of Colonic polypectomy History of Complete colonoscopy Oct 2018 Dr Joao Coley History of Lower back surgery History of Percutaneous transluminal coronary angioplasty History of Spinal surgery Past Medical History Problems History of BMI 28.0-28.9,adult (V85.24) (Z68.28) Resolved Date: 19 Sep 2021 History of Edema of both legs (782.3) (R60.0) Resolved Date: 19 Sep 2021 History of Overweight (BMI 25.0-29.9) (278.02) (E66.3) Resolved Date: 19 Sep 2021 Current Meds Medication NameInstruction Aspirin EC 81 MG TBECTAKE 1 TABLET DAILY DIRECTED. Atorvastatin Calcium 20 MG Oral TabletTAKE 1 TABLET AT BEDTIME. B-12 TABSTAKE 1 TABLET DAILY DIRECTED. Carvedilol 25 MG Oral TabletTAKE 1 TABLET TWICE DAILY WITH MEALS. Cyclobenzaprine HCl - 10 MG Oral TabletTAKE 1 TABLET BY MOUTH AT BEDTIME NEEDED Ferrous Sulfate 325 (65 Fe) MG Oral TabletTAKE 1 TABLET BY MOUTH EVERY DAY hydrALAZINE HCl - 50 MG Oral TabletTAK (more content not included)... Normal [facility] Tobacco Screening.on 023 Fall risk assessment b) One or more fall s in the last year -[facility] [address] DO Work Phone: Tobacco use status [facility] a) Yes M -[facility] 250 DO Work Phone: Tobacco Screening. Yes [facility] [address] DO Work Phone: Alanine aminotransferase [En zymatic activity/volume] in Serum or PlasmaOrdered By: Gabriela Florian on 04-15-2023 ALT [Catalytic activity/Vol] 19 U/L Normal 7-52 [facility] Comment on above: Performed By: #### G LULS #### Point of Care testing , Aspartate aminotransferase [ Enzymatic activity/volume] in Serum or PlasmaOrdered By: Gabriela Florian on 04-15-2023 AST [Catalytic activity/Vol] 19 U/L Normal 13-39 [facility] Comment on above: Performed By: #### G LULS #### Point of Care testing , Automated basophil %Ordered By: Gabriela Florian on 04-15-2023 Basophils/100 WBC (Bld) 0.6 % Normal . [facility] Comment on above: Performed By: #### A LT, CBC, BMP, AST, LIPID ####[address] Automated basophil countOrde red By: Gabriela Florian on 04-15-2023 Basophils (Bld) [#/Vol] 0.0 10*3/uL Normal 0.0-0.2 [facility] Comment on above: Result Comment: PERF ORMED BY: [facility] [address] [place] [address] PATHOLOGIST [employer] DEVELOPMENT MANAGER LAZARUS MILLER M.D. Performed By: #### A LT, CBC, BMP, AST, LIPID ####[address] Automated blood monocyte cou ntOrdered By: Gabriela Florian on 04-15-2023 Monocytes (Bld) [#/Vol] 0.9 10*3/uL High 0.0-0.8 [facility] Comment on above: Performed By: #### A LT, CBC, BMP, AST, LIPID ####[address] Automated eosinophil %Ordere d By: Gabriela Florian on 04-15-2023 Eosinophils/100 WBC (Bld) 4.2 % Normal . [facility] Comment on above: Performed By: #### A LT, CBC, BMP, AST, LIPID ####[address] Automated eosinophil countOr dered By: Gabriela Florian on 04-15-2023 Eosinophils (Bld) [#/Vol] 0.3 10*3/uL Normal 0.0-0.45 [facility] Comment on above: Performed By: #### A LT, CBC, BMP, AST, LIPID ####[address] Automated monocyte %Ordered By: Gabriela Florian on 04-15-2023 Monocytes/100 WBC (Bld) 10.4 % Normal . [facility] Comment on above: Performed By: #### A LT, CBC, BMP, AST, LIPID ####[facility] [id number] [place] [id number] [place] Automated neutrophil %Ordere d By: Gabriela Florian on 04-15-2023 Neutrophils/100 WBC (Bld) 64.9 % Normal . [facility] Comment on above: Performed By: #### A LT, CBC, BMP, AST, LIPID ####[facility] [id number] [place] [id number] [place] Basic Metabolic Panelon 04-05 GFR/1.73 sq M.predicted MDRD (S/P/Bld) [Vol rate/Area] 41.746 mL/min/{1.73_m2} Normal [facility] Comment on above: Performed By: #### G LULS #### Point of Care testing , Calcium [Mass/volume] in Ser um or PlasmaOrdered By: Gabriela Florian on 04-15-2023 Calcium [Mass/Vol] 9.1 mg/dL Normal 8.6-10.3 [facility] Comment on above: Performed By: #### G LULS #### Point of Care testing , Carbon dioxide, total [Moles /volume] in Serum or PlasmaOrdered By: Gabriela Florian on 04-15-2023 CO2 [Moles/Vol] 26.2 mmol/L Normal 21.0-31.0 [facility] Comment on above: Performed By: #### G LULS #### Point of Care testing , Chloride [Moles/volume] in S antolin or PlasmaOrdered By: Gabriela Florian on 04-15-2023 Chloride [Moles/Vol] 109 mmol/L High 98-107 [facility] Comment on above: Performed By: #### G LULS #### Point of Care testing , Cholesterol [Mass/volume] in Serum or PlasmaOrdered By: Gabriela Florian on 04-15-2023 Cholesterol [Mass/Vol] 104 mg/dL Low 140-200 [facility] Comment on above: Chol less than 200 m g/dl low riskChol 201-239 mg/dl borderline riskChol 240 mg/dl and greater high risk Result Comment: Chol less than 200 mg/dl low risk Chol 201-239 mg/dl borderline risk Chol 240 mg/dl and greater high risk Performed By: #### G LULS #### Point of Care testing , Cholesterol in LDL Calc [Mas s/Vol]Ordered By: Gabriela Florian on 04-15-2023 Cholesterol in LDL [Mass/Vol] 43 mg/dL 0-100 [facility] Comment on above: LDL ATP III CLASSIFI CATIONLDL less than 100 mg/dL OptimalLDL 100-129 mg/dL Near or above optimalLDL 130-159 mg/dL Borderline highLDL 160-189 mg/dL HighLDL greater than 189 mg/dL Very high Cholesterol in VLDL Calc [Ma ss/Vol]Ordered By: Gabriela Florian on 04-15-2023 Cholesterol in VLDL [Mass/Vol] 30 mg/dL [facility] Complete Blood Count Auto Di ffon 04-15-2023 Mean Corpuscular HGB Conc 33.0 g/dL Normal 32.5-35.6 [facility] Comment on above: Performed By: #### A LT, CBC, BMP, AST, LIPID ####[facility] [id number] [place] [address] NRBC% 0.0 /100{WBC} Normal 0-0.5 [facility] Comment on above: Performed By: #### A LT, CBC, BMP, AST, LIPID ####[address] Creatinine [Mass/volume] in Serum or PlasmaOrdered By: Gabriela Florian on 04-15-2023 Creatinine [Mass/Vol] 1.71 mg/dL High 0.70-1.30 [facility] Comment on above: Performed By: #### G LULS #### Point of Care testing , Erythrocyte distribution wid th [Ratio] by Automated countOrdered By: Gabriela Florian on 04-15-2023 Erythrocyte distribution width (RBC) [Ratio] 13.9 % Normal 12.0-14.8 [facility] Comment on above: Performed By: #### A LT, CBC, BMP, AST, LIPID ####[address] Erythrocytes [#/volume] in B lood by Automated countOrdered By: Gabriela Florian on 04-15-2023 RBC (Bld) [#/Vol] 4.27 10*6/uL Normal 3.90-5.60 [facility] Comment on above: Performed By: #### A LT, CBC, BMP, AST, LIPID ####[facility] [id number] [place] [id number] [place] Glucose [Mass/volume] in Ser um or PlasmaOrdered By: Gabriela Florian on 04-15-2023 Glucose [Mass/Vol] 141 mg/dL High 70-100 [facility] Comment on above: ADA recommended refe rence rangeRandom Glucose Reference Range is dependent on time and content of last meal. Glucose of more than 200 mg/dL in a nonstressed, ambulatory subject supports the diagnosis of Diabetes Mellitus. Result Comment: [place] om Glucose Reference Range is dependent on time and content of last meal. Glucose of more than 200 mg/dL in a nonstressed, ambulatory subject supports the diagnosis of Diabetes Mellitus. ADA recommended reference range Performed By: #### G LULS #### Point of Care testing , Hematocrit [Volume Fraction] of Blood by Automated countOrdered By: aGbriela Florian on 04-15-2023 Hematocrit (Bld) [Volume fraction] 35.7 % Low 38.8-50.0 [facility] Comment on above: Performed By: #### A LT, CBC, BMP, AST, LIPID ####[id number] [place] [id number] [place] Hemoglobin [Mass/volume] in BloodOrdered By: Gabriela Florian on 04-15-2023 Hemoglobin (Bld) [Mass/Vol] 11.8 g/dL Low 13.0-17.0 [facility] Comment on above: Performed By: #### A LT, CBC, BMP, AST, LIPID ####[facility] [id number] [place] [id number] [place] Laboratory - Chemistry and C hemistry - challengeon 04-15-2023 Cholesterol [Mass/Vol] 104\S\104 below low threshold 140-200 [facility] [address] DO Work Phone: Comment on above: Chol less than 200 m g/dl low risk Chol 201-239 mg/dl borderline risk Chol 240 mg/dl and greater high risk Cholesterol in LDL [Mass/Vol] 43\S\43 Normal 0-100 [facility] 600 DO Work Phone: Comment on above: LDL ATP III CLASSIFI CATION LDL less than 100 mg/dL Optimal LDL 100-129 mg/dL Near or above optimal LDL 130-159 mg/dL Borderline high LDL 160-189 mg/dL High LDL greater than 189 mg/dL Very high Leukocytes [#/volume] correc ruben for nucleated erythrocytes in Blood by Automated counOrdered By: Gabriela Florian on 04-15-2023 WBC corrected for nucl RBC Auto (Bld) [#/Vol] 8.2 10*3/uL 4.1-10.5 [facility] Leukocytes [#/volume] in Blo od by Automated countOrdered By: Gabriela Florian on 04-15-2023 WBC (Bld) [#/Vol] 8.2 10*3/uL Normal 4.1-10.5 [facility] Comment on above: Performed By: #### A LT, CBC, BMP, AST, LIPID ####[facility] [id number] [place] [id number] [place] Lipid Panelon 04-15-2023 LDL Cholesterol,Calculated 43 mg/dL Normal 0-100 [facility] Comment on above: Result Comment: LDL ATP III CLASSIFICATION LDL less than 100 mg/dL Optimal LDL 100-129 mg/dL Near or above optimal LDL 130-159 mg/dL Borderline high LDL 160-189 mg/dL High LDL greater than 189 mg/dL Very high Performed By: #### G LULS #### Point of Care testing , Triglyceride w/Reflex 154 mg/dL High 0-149 [facility] Comment on above: Result Comment: TRIG ATP III CLASSIFICATION TRIG less than 150 mg/dL Normal TRIG 150-199 mg/dL Borderline high TRIG 200-500 mg/dL High TRIG greater than 500 mg/dL Very high Standard traceable to the Center for Disease Conrtrol and Prevention (CDC) test method. Performed By: #### G LULS #### Point of Care testing , VLDL CHOLESTEROL 30 mg/dL Normal [facility] Comment on above: Performed By: #### G LULS #### Point of Care testing , Lymphocytes [#/volume] in Bl ood by Automated countOrdered By: Gabriela Florian on 04-15-2023 Lymphocytes (Bld) [#/Vol] 1.6 10*3/uL Normal 1.00-4.8 [facility] Comment on above: Performed By: #### A LT, CBC, BMP, AST, LIPID ####[address] Lymphocytes/100 leukocytes i n Blood by Automated countOrdered By: Gabriela Florian on 04-15-2023 Lymphocytes/100 WBC (Bld) 19.9 % Normal . [facility] Comment on above: Performed By: #### A LT, CBC, BMP, AST, LIPID ####[address] MCH [Entitic mass] by Automa ruben countOrdered By: Gabriela Florian on 04-15-2023 MCH (RBC) [Entitic mass] 27.6 pg Normal 27.5-35.2 [facility] Comment on above: Performed By: #### A LT, CBC, BMP, AST, LIPID ####[address] MCHC Auto (RBC) [Mass/Vol]Or dered By: Gabriela Florian on 04-15-2023 MCHC (RBC) [Mass/Vol] 33.0 g/dL 32.5-35.6 [facility] MCV [Entitic volume] by Auto mated countOrdered By: Gabriela Florian on 04-15-2023 MCV (RBC) [Entitic vol] 83.6 fL Normal 83.5-101 [facility] Comment on above: Performed By: #### A LT, CBC, BMP, AST, LIPID ####[address] Neutrophils [#/volume] in Bl ood by Automated countOrdered By: Gabriela Florian on 04-15-2023 Neutrophils (Bld) [#/Vol] 5.3 10*3/uL Normal 1.8-7.7 [facility] Comment on above: Performed By: #### A LT, CBC, BMP, AST, LIPID ####[facility] [id number] [place] [address] [place] No Panel InformationOrdered By: Gabriela Florian on 04-15-2023 Estimated GFR (CKD-EPI) 41.746 mL/Min [facility] Creatinine Clearance (Chem N/A [facility] No Panel Informationon 04-15 64.9\S\64.9 Normal . [facility] [address] DO Work Phone: 8.8\S\8.8 Normal 6.6-10.1 [facility] [address] DO Work Phone: 165\S\165 Normal 150-450 [facility] [address] DO Work Phone: 13.9\S\13.9 Normal 12.0-14.8 -[facility] [address] DO Work Phone: 33.0\S\33.0 Normal 32.5-35.6 [facility] [address] DO Work Phone: 27.6\S\27.6 Normal 27.5-35.2 [facility] [address] DO Work Phone: 5.3\S\5.3 Normal 1.8-7.7 [facility] [address] DO Work Phone: 0.0\S\0.0 Normal 0.0-0.2 [facility] [address] DO Work Phone: Comment on above: PERFORMED BY:[facility] [place] [place] [id number] MEDICAL DIRECTORLAZARUS MILLER M.D. 0.6\S\0.6 Normal . -[facility] [address] DO Work Phone: 4.2\S\4.2 Normal . [facility] [address] DO Work Phone: 10.4\S\10.4 Normal . [facility] [address] DO Work Phone: 19.9\S\19.9 Normal . [facility] [address] DO Work Phone: 0.3\S\0.3 Normal 0.0-0.45 -[facility] [address] DO Work Phone: 0.9\S\0.9 above high threshold 0.0-0.8 -[facility] [address] DO Work Phone: 1.6\S\1.6 Normal 1.00-4.8 [facility] [address] DO Work Phone: 83.6\S\83.6 Normal 83.5-101 -[facility] [facility] [address] DO Work Phone: 35.7\S\35.7 below low threshold 38.8-50.0 [facility] 600 DO Work Phone: 11.8\S\11.8 below low threshold 13.0-17.0 [facility] 600 DO Work Phone: 4.27\S\4.27 Normal 3.90-5.60 [facility] 600 DO Work Phone: 8.2\S\8.2 Normal 4.1-10.5 [facility] 600 DO Work Phone: 41.746\S\41.746 Normal [facility] 600 DO Work Phone: 10.2\S\10.2 Normal 6.0-15.0 [facility] 600 DO Work Phone: [phone] 9.1\S\9.1 Normal 8.6-10.3 [facility] 600 DO Work Phone: [phone] 26.2\S\26.2 Normal 21.0-31.0 [facility] 600 DO Work Phone: [phone] 109\S\109 above high threshold 98-107 [facility] 600 DO Work Phone: [phone] 5.4\S\5.4 above high threshold 3.5-5.1 [facility] 600 DO Work Phone: [phone] 140\S\140 Normal 136-145 [facility] 600 DO Work Phone: [phone] 1.71\S\1.71 above high threshold 0.70-1.30 [facility] 600 DO Work Phone: [phone] 33\S\33 above high threshold 7-25 [facility] 600 DO Work Phone: [phone] 141\S\141 above high threshold 70-100 [facility] [employer] 600 DO Work Phone: [phone] Comment on above: Random Glucose Refer ence Range is dependent on time and content of last meal. Glucose of more than 200 mg/dL in a nonstressed, ambulatory subject supports the diagnosis of Diabetes Mellitus. ADA recommended reference range 19\S\19 Normal 7-52 [facility] 600 DO Work Phone: [phone] 3.5\S\3.5 Normal <5.0 [facility] 600 DO Work Phone: [phone] Comment on above: PERFORMED BY:[place] [address] [place] [place], [place] [id number] MEDICAL DIRECTORLAZARUS MILLER M.D. 30\S\30 Normal 23-92 [facility] 600 DO Work Phone: Comment on above: HDL CHOL ATP-III CLA SSIFICATION Cardiovascular Risk HDL > or equal to 60 mg/dL LOW HDL < 40 mg/dL HIGH 154\S\154 above high threshold 0-149 [facility] 600 DO Work Phone: Comment on above: TRIG ATP III CLASSIF ICATION TRIG less than 150 mg/dL Normal TRIG 150-199 mg/dL Borderline high TRIG 200-500 mg/dL High TRIG greater than 500 mg/dL Very high Standard traceable to the Center for Disease Conrtrol and Prevention (CDC) test method. Nucleated erythrocytes [Pres ence] in Blood by Automated countOrdered By: Gabriela Florian on 04-15-2023 Nucleated RBC Auto Ql (Bld) 0.0 /100{WBC} 0-0.5 [facility] Platelet mean volume [Entiti c volume] in Blood by Automated countOrdered By: Gabriela Florian on 04-15-2023 Platelet mean volume (Bld) [Entitic vol] 8.8 fL Normal 6.6-10.1 [facility] Comment on above: Performed By: #### A LT, CBC, BMP, AST, LIPID ####[facility] [id number] [id number] [place] Platelets [#/volume] in Bloo d by Automated countOrdered By: Gabriela Florian on 04-15-2023 Platelets (Bld) [#/Vol] 165 10*3/uL Normal 150-450 [facility] Comment on above: Performed By: #### A LT, CBC, BMP, AST, LIPID ####[facility] [id number] [place] [address] [place] Potassium [Moles/volume] in Serum or PlasmaOrdered By: Gabriela Florian on 04-15-2023 Potassium [Moles/Vol] 5.4 mmol/L High 3.5-5.1 [facility] Comment on above: Performed By: #### G LULS #### Point of Care testing , Serum or plasma anion gap de terminationOrdered By: Gabriela Florian on 04-15-2023 Anion gap [Moles/Vol] 10.2 mmol/L Normal 6.0-15.0 [facility] Comment on above: Performed By: #### G LULS #### Point of Care testing , Serum or plasma high density lipoprotein (HDL) cholesterol measurementOrdered By: Gabriela Florian on 04-15-2023 Cholesterol in HDL [Mass/Vol] 30 mg/dL Normal 23-92 [facility] Comment on above: HDL CHOL ATP-III CLA SSIFICATION Cardiovascular RiskHDL > or equal to 60 mg/dL LOWHDL < 40 mg/dL HIGH Result Comment: HDL CHOL ATP-III CLASSIFICATION Cardiovascular Risk HDL > or equal to 60 mg/dL LOW HDL < 40 mg/dL HIGH Performed By: #### G LULS #### Point of Care testing , Serum or plasma total choles terol/high density lipoprotein (HDL) cholesterol mass ratOrdered By: Gabriela Florian on 04-15-2023 Cholesterol.total/Flavia sterol in HDL [Mass ratio] 3.5 {ratio} Normal <5.0 [facility] Comment on above: Result Comment: PERF ORMED BY: [facility] [address] [place] [address] PATHOLOGIST [employer] DEVELOPMENT MANAGER LAZARUS MILLER M.D. Performed By: #### G LULS #### Point of Care testing , Sodium [Moles/volume] in Ser um or PlasmaOrdered By: Gabriela Florian on 04-15-2023 Sodium [Moles/Vol] 140 mmol/L Normal 136-145 [facility] Comment on above: Performed By: #### G LULS #### Point of Care testing , Triglyceride [Mass/volume] i n Serum or PlasmaOrdered By: Gabriela Florian on 04-15-2023 Triglyceride [Mass/Vol] 154 mg/dL 0-149 [facility] Comment on above: TRIG ATP III CLASSIF ICATIONTRIG less than 150 mg/dL NormalTRIG 150-199 mg/dL Borderline highTRIG 200-500 mg/dL High TRIG greater than 500 mg/dL Very highStandard traceable to the Center for Disease Conrtrol and Prevention (CDC) test method. Urea nitrogen [Mass/volume] in Serum or PlasmaOrdered By: Gabriela Florian on 04-15-2023 Urea nitrogen [Mass/Vol] 33 mg/dL High 7-25 [facility] Comment on above: Performed By: #### G LULS #### Point of Care testing , Office Visit (Cardiology)on 10-16-2022 Follow-up visit Diagnoses/Problems Assessed 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of eek coronary artery of eek heart without angina pectoris (414.01) (I25.10) Hyperlipidemia (272.4) (E78.5) S/P PTCA (percutaneous transluminal coronary angioplasty) (V45.82) (Z98.61) 2017 RCA History of ND (myocardial infarction) (412) (I25.2) Essential hypertension (401.9) (I10) Stage 3a chronic kidney disease (585.3) (N18.31) Diabetes mellitus (250.00) (E11.9) Current some day smoker (305.1) (F17.200) 1 pack every 2 weeks Overweight with body mass index (BMI) of 27 to 27.9 in adult (278.02,V85.23) (E66.3,Z68.27) Orders 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of eek coronary artery of eek heart without angina pectoris Renew: Aspirin EC 81 MG Oral Tablet Delayed Release; TAKE 1 TABLET DAILY DIRECTED 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of eek coronary artery of eek heart without angina pectoris, Essential hypertension, History of ND (myocardial infarction), Hyperlipidemia, S/P PTCA (percutaneous transluminal coronary angioplasty) ALT - Alanine Aminotransferase, Serum; Status:Active - Retrospective Authorization; Requested for:[id number]; AST; Status:Active - Retrospective Authorization; Requested for:[id number]; Basic Metabolic Panel; Status:Active - Retrospective Authorization; Requested for:[id number]; Complete Blood Count; Status:Active - Retrospective Authorization; Requested for:[id number]; Lipid Panel; Status:Active - Retrospective Authorization; Requested for:[id number]; 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of eek coronary artery of eek heart without angina pectoris, Hyperlipidemia Renew: Atorvastatin Calcium 20 MG Oral Tablet; TAKE 1 TABLET AT BEDTIME Essential hypertension Renew: Carvedilol 25 MG Oral Tablet; TAKE 1 TABLET TWICE DAILY WITH MEALS Overweight with body mass index (BMI) of 27 to 27.9 in adult Healthy Weight Tips; Status:Complete - Retrospective Authorization; Done: 16Oct2022 Some eating tips that can help you lose weight.; Status:Complete - Retrospective Authorization; Done: 16Oct2022 SocHx: Current some day smoker Tobacco Use Screening; Status:Complete; Done: 16Oct2022 You need to stop smoking. Though it is not easy, more than half of all adult smokers have quit. We encourage you to write down all the reasons you should quit smoking and set a quit date for yourself. Ask us how we can help. You may also call [phone] for free resources and assistance.; Status:Complete - Retrospective Authorization; Done: 16Oct2022 Tobacco Use Screening; Status:Complete; Done: 16Oct2022 Patient Instructions Please bring all medicines, vitamins, and herbal supplements with you when you come to the office. Prescriptions will not be filled unless you are compliant with your follow up appointments or have a follow up appointment scheduled as per instruction of your physician. Refills should be requested at the time of your visit. Follow up in 6 months pt to call office and confirm if taking lisinopril Chief Complaint DAVE LUGO is being seen for a 6 month follow-up of. Patient is in the office for follow-up for the problems noted below accompanied by his fiance. He recently underwent lumbar spinal surgery by Dr. Miller at [facility] with no complication he continues to wear his vest. Patient has no angina orthopnea PND lower extremity edema. He continues to smoke something that I advised him against again. Cardiac and pulm examinations were normal. ASSESSMENT AND PLAN: 1. Coronary artery disease, stable. No cardiac investigations are needed continue aggressive risk factors modifications. 2. Status post bare metal stent in the right coronary artery in 2006 with repeat angioplasty of the RCA 2016. Nuclear stress test September 2020 revealed inferolateral infarction EF 52%, no ischemia, risk factors are under control. 3. Recent back surgery for lumbar spinal disease with no complications. He is recovering 5. Hyperlipidemia, under control, 6. Hypertension, under control. 7. Overweight, encouraged patient to cut back calorie intake and exercise on regular basis. 8. 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 No heart failure or LV systolic dysfunction. Secondary preventive measures are in place 9. Mild but active tobacco use, encouraged the patient to quit smoking completely Surgical History Problems History of Back surgery History of Cardiac catheterization History of Cataract surgery History of Colonic polypectomy History of Complete colonoscopy Oct 2018 Dr Joao Coley History of Lower back surgery History of Percutaneous transluminal coronary angioplasty History of Spinal surgery Past Medical History Problems History of BMI 28.0-28.9,adult (V85.24) (Z68.28) Resolved Date: 19 Sep 2021 History of Edema of both legs (782.3) (R60.0) Resolved Date: 19 Sep 2021 History of Overweight (BMI 25.0-29.9) (278.02) (E66.3) Resolved Date: 19 Sep 2021 Current Meds Medication NameInstruction Aspirin EC 81 MG Ora (more content not included)... Normal [employer] Tobacco Screening.on 023 Adult depression screening assessment No [facility] 250 DO Work Phone: Fall risk assessment a) No falls within the last year [facility] [address] DO Work Phone: Tobacco use status [facility] b) No [facility] [address] DO Work Phone: Creatinine and Glomerular fi ltration rate.predicted panel (S/P/Bld)Ordered By: Roberto Cullen on 10-06-2022 Creatinine [Mass/Vol] 1.57 mg/dL 0.64-1.27 [facility] Estimated glomerular filtrat ion rate (GFR) non- AmericanOrdered By: Roberto Cullen on 10-06-2022 GFR/1.73 sq M.predicted among non-blacks MDRD (S/P/Bld) [Vol rate/Area] 44 mL/Min [facility] Glucose Glucometer (BldC) [M ass/Vol]Ordered By: Clemente Miller on 10-06-2022 Glucose [Mass/Vol] 163 mg/dL [facility] Comment on above: Random Glucose Refer ence Range is dependent on time and content of last meal. Glucose of more than 200 mg/dL in a nonstressed, ambulatory subject supports the diagnosis of Diabetes Mellitus. No Panel InformationOrdered By: Roberto Cullen on 10-06-2022 Estimated GFR () 53 mL/Min [facility] Comment on above: GFR estimated refere nce range: According to KDOQI guidelines, <60 ml/min/1.73m2 is sufficient to diagnose a patient with chronic kidney disease. Pharmacy Creatinine Clearance (Chem 38.38 [facility] No Panel InformationOrdered By: Clemente Miller on 10-06-2022 Bedside Glucose Comment Glu2: cleaned meter [facility] Serum or plasma anion gap de terminationOrdered By: Roberto Cullen on 10-06-2022 Anion gap [Moles/Vol] 11.2 mmol/L 6.0-15.0 [facility] Serum or plasma calcium kirk urement (mass/volume)Ordered By: Roberto Cullen on 10-06-2022 Calcium [Mass/Vol] 8.5 mg/dL 8.2-10.2 [facility] Serum or plasma chloride tammy surement (moles/volume)Ordered By: Roberto Cullen on 10-06-2022 Chloride [Moles/Vol] 105 mmol/L 95-114 [facility] Serum or plasma glucose kirk urement (mass/volume)Ordered By: Roberto Cullen on 10-06-2022 Glucose [Mass/Vol] 114 mg/dL 70-100 [facility] Comment on above: ADA recommended refe rence rangeRandom Glucose Reference Range is dependent on time and content of last meal. Glucose of more than 200 mg/dL in a nonstressed, ambulatory subject supports the diagnosis of Diabetes Mellitus. Serum or plasma potassium me asurement (moles/volume)Ordered By: Roberto Cullen on 10-06-2022 Potassium [Moles/Vol] 4.0 mmol/L 3.5-5.1 [facility] Serum or plasma sodium measu rement (moles/volume)Ordered By: Roberto Cullen on 10-06-2022 Sodium [Moles/Vol] 135 mmol/L 136-146 [facility] Serum or plasma total carbon dioxide measurement (moles/volume)Ordered By: Roberto Cullen on 10-06-2022 CO2 [Moles/Vol] 22.8 mmol/L 22.0-30.0 [facility] Serum or plasma urea nitroge n measurement (mass/volume)Ordered By: Roberto Cullen on 10-06-2022 Urea nitrogen [Mass/Vol] 49 mg/dL 06-28 [facility] Basophils Auto (Bld) [#/Vol] Ordered By: Kali Isaac on 10-04-2022 Basophils (Bld) [#/Vol] 0.0 10*3/uL 0.0-0.2 [facility] Basophils/100 WBC Auto (Bld) Ordered By: Kali Isaac on 10-04-2022 Basophils/100 WBC (Bld) 0.2 % . [facility] Eosinophils Auto (Bld) [#/Vo l]Ordered By: Kali Isaac on 10-04-2022 Eosinophils (Bld) [#/Vol] 0.0 10*3/uL 0.0-0.45 [facility] Eosinophils/100 WBC Auto (Bl d)Ordered By: Kali Isaac on 10-04-2022 Eosinophils/100 WBC (Bld) 0.0 % . [facility] Erythrocyte distribution wid th Auto (RBC) [Ratio]Ordered By: Kali Isaac on 10-04-2022 Erythrocyte distribution width (RBC) [Ratio] 13.3 % 12.0-14.8 [facility] Hematocrit Auto (Bld) [Volum e fraction]Ordered By: Kali Isaac on 10-04-2022 Hematocrit (Bld) [Volume fraction] 34.3 % 38.8-50.0 [facility] Hemoglobin [Mass/volume] in BloodOrdered By: Kali Isaac on 10-04-2022 Hemoglobin (Bld) [Mass/Vol] 11.3 g/dL 13.0-17.0 [facility] Laboratory - Chemistry and C hemistry - challengeOrdered By: Kali Isaac on 10-04-2022 Magnesium [Mass/Vol] 2.2 mg/dL 1.6-2.6 [facility] Leukocytes [#/volume] correc ruben for nucleated erythrocytes in Blood by Automated counOrdered By: Kali Isaac on 10-04-2022 WBC corrected for nucl RBC Auto (Bld) [#/Vol] 16.0 10*3/uL 4.1-10.5 [facility] Lymphocytes Auto (Bld) [#/Vo l]Ordered By: Kali Isaac on 10-04-2022 Lymphocytes (Bld) [#/Vol] 1.0 10*3/uL 1.00-4.8 [facility] Lymphocytes/100 WBC Auto (Bl d)Ordered By: Kali Isaac on 10-04-2022 Lymphocytes/100 WBC (Bld) 6.1 % . [facility] MCH Auto (RBC) [Entitic mass ]Ordered By: Kali Isaac on 10-04-2022 MCH (RBC) [Entitic mass] 28.1 pg 27.5-35.2 [facility] MCHC Auto (RBC) [Mass/Vol]Or dered By: Kali Isaac on 10-04-2022 MCHC (RBC) [Mass/Vol] 33.0 g/dL 32.5-35.6 [facility] MCV Auto (RBC) [Entitic vol] Ordered By: Kali Isaac on 10-04-2022 MCV (RBC) [Entitic vol] 85.3 fL 83.5-101 [facility] Monocytes Auto (Bld) [#/Vol] Ordered By: Kali Isaac on 10-04-2022 Monocytes (Bld) [#/Vol] 1.1 10*3/uL 0.0-0.8 [facility] Monocytes/100 WBC Auto (Bld) Ordered By: Kali Isaac on 10-04-2022 Monocytes/100 WBC (Bld) 6.6 % . [facility] Neutrophils Auto (Bld) [#/Vo l]Ordered By: Kali Isaac on 10-04-2022 Neutrophils (Bld) [#/Vol] 14.0 10*3/uL 1.8-7.7 [facility] Neutrophils/100 WBC Auto (Bl d)Ordered By: Kali Isaac on 10-04-2022 Neutrophils/100 WBC (Bld) 87.1 % . [facility] Nucleated erythrocytes [Pres ence] in Blood by Automated countOrdered By: Kali Isaac on 10-04-2022 Nucleated RBC Auto Ql (Bld) 0.0 /100{WBC} 0-0.5 [facility] Platelet mean volume Auto (B ld) [Entitic vol]Ordered By: Kali Isaac on 10-04-2022 Platelet mean volume (Bld) [Entitic vol] 8.3 fL 6.6-10.1 [facility] Platelets Auto (Bld) [#/Vol] Ordered By: Kali Isaac on 10-04-2022 Platelets (Bld) [#/Vol] 159 10*3/uL 150-450 [facility] RBC Auto (Bld) [#/Vol]Ordere d By: Kali Isaac on 10-04-2022 RBC (Bld) [#/Vol] 4.03 10*6/uL 3.90-5.60 [facility] WBC Auto (Bld) [#/Vol]Ordere d By: Kali Isaac on 10-04-2022 WBC (Bld) [#/Vol] 16.0 10*3/uL 4.1-10.5 [facility] Glucose mean value [Mass/vol ume] in Blood Estimated from glycated hemoglobinOrdered By: Kali Isaac on 10-03-2022 Average glucose Estimated from glycated hemoglobin (Bld) [Mass/Vol] 154 mg/dL [facility] Hemoglobin A1c percentageOrd ered By: Kali Isaac on 10-03-2022 HbA1c (Bld) [Mass fraction] 7.0 % 4.3-5.6 [facility] Comment on above: Increased risk for d iabetes: 5.7 - 6.4diabetes: >6.4glycemic control for adults with diabetes: <7.0 COVID-19 SOFIAOrdered By: Ag Johnson on 10-01-2022 SARS-CoV+SARS-CoV-2 (COVID-19) Ag IA.rapid Ql (Resp) Negative Negative [facility] Comment on above: This is a duplicate Yelena SARS Antigen (SALIMA) result to be used for statistical tracking purpose only. No Panel InformationOrdered By: Clemente Miller on 10-01-2022 SARS Antigen (LFIA) [facility] Basophils Auto (Bld) [#/Vol] Ordered By: Clemente Miller on 09-18-2022 Basophils (Bld) [#/Vol] 0.0 10*3/uL 0.0-0.2 [facility] Basophils/100 WBC Auto (Bld) Ordered By: Clemente Miller on 09-18-2022 Basophils/100 WBC (Bld) 0.3 % . [facility] Creatinine and Glomerular fi ltration rate.predicted panel (S/P/Bld)Ordered By: Clemente Miller on 09-18-2022 Creatinine [Mass/Vol] 1.41 mg/dL 0.64-1.27 [facility] Eosinophils Auto (Bld) [#/Vo l]Ordered By: Clemente Miller on 09-18-2022 Eosinophils (Bld) [#/Vol] 0.2 10*3/uL 0.0-0.45 [facility] Eosinophils/100 WBC Auto (Bl d)Ordered By: Cleemnte Miller on 09-18-2022 Eosinophils/100 WBC (Bld) 3.0 % . [facility] Erythrocyte distribution wid th Auto (RBC) [Ratio]Ordered By: Clemente Miller on 09-18-2022 Erythrocyte distribution width (RBC) [Ratio] 13.5 % 12.0-14.8 [facility] Estimated glomerular filtrat ion rate (GFR) non- AmericanOrdered By: Clemente Miller on 09-18-2022 GFR/1.73 sq M.predicted among non-blacks MDRD (S/P/Bld) [Vol rate/Area] 49 mL/Min [facility] Hematocrit Auto (Bld) [Volum e fraction]Ordered By: Clemente Miller on 09-18-2022 Hematocrit (Bld) [Volume fraction] 40.4 % 38.8-50.0 [facility] Hemoglobin [Mass/volume] in BloodOrdered By: Clemente Miller on 09-18-2022 Hemoglobin (Bld) [Mass/Vol] 13.2 g/dL 13.0-17.0 [facility] Leukocytes [#/volume] correc ruben for nucleated erythrocytes in Blood by Automated counOrdered By: Clemente Miller on 09-18-2022 WBC corrected for nucl RBC Auto (Bld) [#/Vol] 7.4 10*3/uL 4.1-10.5 [facility] Lymphocytes Auto (Bld) [#/Vo l]Ordered By: Clemente Miller on 09-18-2022 Lymphocytes (Bld) [#/Vol] 1.9 10*3/uL 1.00-4.8 [facility] Lymphocytes/100 WBC Auto (Bl d)Ordered By: Clemente Miller on 09-18-2022 Lymphocytes/100 WBC (Bld) 26.3 % . [facility] MCH Auto (RBC) [Entitic mass ]Ordered By: Clemente Miller on 09-18-2022 MCH (RBC) [Entitic mass] 28.0 pg 27.5-35.2 [facility] MCHC Auto (RBC) [Mass/Vol]Or dered By: Clemente Miller on 09-18-2022 MCHC (RBC) [Mass/Vol] 32.8 g/dL 32.5-35.6 [facility] MCV Auto (RBC) [Entitic vol] Ordered By: Clemente Miller on 09-18-2022 MCV (RBC) [Entitic vol] 85.4 fL 83.5-101 [facility] Monocytes Auto (Bld) [#/Vol] Ordered By: Clemente Miller on 09-18-2022 Monocytes (Bld) [#/Vol] 0.8 10*3/uL 0.0-0.8 [facility] Monocytes/100 WBC Auto (Bld) Ordered By: Clemente Miller on 09-18-2022 Monocytes/100 WBC (Bld) 10.7 % . [facility] Neutrophils Auto (Bld) [#/Vo l]Ordered By: Clemente Miller on 09-18-2022 Neutrophils (Bld) [#/Vol] 4.4 10*3/uL 1.8-7.7 [facility] Neutrophils/100 WBC Auto (Bl d)Ordered By: Clemente Miller on 09-18-2022 Neutrophils/100 WBC (Bld) 59.7 % . [facility] No Panel InformationOrdered By: Clemente Miller on 09-18-2022 Estimated GFR () 60 mL/Min [facility] Comment on above: GFR estimated refere nce range: According to KDOQI guidelines, <60 ml/min/1.73m2 is sufficient to diagnose a patient with chronic kidney disease. Pharmacy Creatinine Clearance (Chem N/A [facility] Nucleated erythrocytes [Pres ence] in Blood by Automated countOrdered By: Clemente Miller on 09-18-2022 Nucleated RBC Auto Ql (Bld) 0.1 /100{WBC} 0-0.5 [facility] Platelet mean volume Auto (B ld) [Entitic vol]Ordered By: Clemente Miller on 09-18-2022 Platelet mean volume (Bld) [Entitic vol] 8.5 fL 6.6-10.1 [facility] Platelets Auto (Bld) [#/Vol] Ordered By: Clemente Miller on 09-18-2022 Platelets (Bld) [#/Vol] 184 10*3/uL 150-450 [facility] RBC Auto (Bld) [#/Vol]Ordere d By: Clemente Miller on 09-18-2022 RBC (Bld) [#/Vol] 4.73 10*6/uL 3.90-5.60 [facility] Serum or plasma anion gap de terminationOrdered By: Clemente Miller on 09-18-2022 Anion gap [Moles/Vol] 17.5 mmol/L 6.0-15.0 [facility] Serum or plasma calcium kirk urement (mass/volume)Ordered By: Clemente Miller on 09-18-2022 Calcium [Mass/Vol] 9.2 mg/dL 8.2-10.2 [facility] Serum or plasma chloride tammy surement (moles/volume)Ordered By: Clemente Miller on 09-18-2022 Chloride [Moles/Vol] 102 mmol/L 95-114 [facility] Serum or plasma glucose kirk urement (mass/volume)Ordered By: Clemente Miller on 09-18-2022 Glucose [Mass/Vol] 130 mg/dL 70-100 [facility] Comment on above: ADA recommended refe rence rangeRandom Glucose Reference Range is dependent on time and content of last meal. Glucose of more than 200 mg/dL in a nonstressed, ambulatory subject supports the diagnosis of Diabetes Mellitus. Serum or plasma potassium me asurement (moles/volume)Ordered By: Clemente Miller on 09-18-2022 Potassium [Moles/Vol] 4.6 mmol/L 3.5-5.1 [facility] Serum or plasma sodium measu rement (moles/volume)Ordered By: Clemente Miller on 09-18-2022 Sodium [Moles/Vol] 139 mmol/L 136-146 [facility] Serum or plasma total carbon dioxide measurement (moles/volume)Ordered By: Clemente Miller on 09-18-2022 CO2 [Moles/Vol] 24.1 mmol/L 22.0-30.0 [facility] Serum or plasma urea nitroge n measurement (mass/volume)Ordered By: Clemente Miller on 09-18-2022 Urea nitrogen [Mass/Vol] 17 mg/dL 9-23 [facility] WBC Auto (Bld) [#/Vol]Ordere d By: Clemente Miller on 09-18-2022 WBC (Bld) [#/Vol] 7.4 10*3/uL 4.1-10.5 [facility] A1C HEMOGLOBINon 08-19-2022 HbA1c (Bld) [Mass fraction] 6.5 % [employer] Other HbA1c (Bld) [Mass fraction]o n 08-19-2022 A1C HEMOGLOBIN [employer] Other Basophils Auto (Bld) [#/Vol] Ordered By: Lolita Adorno on 05-15-2022 Basophils (Bld) [#/Vol] 0.0 10*3/uL 0.0-0.2 [facility] Basophils/100 WBC Auto (Bld) Ordered By: Lolita Adorno on 05-15-2022 Basophils/100 WBC (Bld) 0.6 % . [facility] Blood hemoglobin measurement (mass/volume)Ordered By: Lolita Adorno on 05-15-2022 Hemoglobin (Bld) [Mass/Vol] 13.3 g/dL 13.0-17.0 [facility] Blood leukocytes automated c ount (number/volume)Ordered By: Lolita Adorno on 05-15-2022 WBC (Bld) [#/Vol] 8.3 10*3/uL 4.5-11.0 [facility] Body fluid albumin measureme nt (mass/volume)Ordered By: Lolita Adorno on 05-15-2022 Albumin (Body fld) [Mass/Vol] 4.1 g/dL 3.2-5.5 [facility] Cholesterol [Mass/volume] in Serum or PlasmaOrdered By: Lolita Adorno on 05-15-2022 Cholesterol [Mass/Vol] 102 mg/dL 140-200 [facility] Comment on above: Chol less than 200 m g/dl low riskChol 201-239 mg/dl borderline riskChol 240 mg/dl and greater high risk Cholesterol in LDL Calc [Mas s/Vol]Ordered By: Lolita Adorno on 05-15-2022 Cholesterol in LDL [Mass/Vol] 45 mg/dL 0-100 [facility] Comment on above: LDL ATP III CLASSIFI CATIONLDL less than 100 mg/dL OptimalLDL 100-129 mg/dL Near or above optimalLDL 130-159 mg/dL Borderline highLDL 160-189 mg/dL HighLDL greater than 189 mg/dL Very high Cholesterol in VLDL Calc [Ma ss/Vol]Ordered By: Lolita Adorno on 05-15-2022 Cholesterol in VLDL [Mass/Vol] 24 mg/dL [facility] Creatinine and Glomerular fi ltration rate.predicted panel (S/P/Bld)Ordered By: Lolita Adorno on 05-15-2022 Creatinine [Mass/Vol] 1.46 mg/dL 0.64-1.27 [facility] Eosinophils Auto (Bld) [#/Vo l]Ordered By: Lolita Adorno on 05-15-2022 Eosinophils (Bld) [#/Vol] 0.3 10*3/uL 0.0-0.45 [facility] Eosinophils/100 WBC Auto (Bl d)Ordered By: Lolita Adorno on 05-15-2022 Eosinophils/100 WBC (Bld) 3.5 % . [facility] Erythrocyte distribution wid th Auto (RBC) [Ratio]Ordered By: Lolita Adorno on 05-15-2022 Erythrocyte distribution width (RBC) [Ratio] 13.4 % 12.0-14.8 [facility] Estimated glomerular filtrat ion rate (GFR) non- AmericanOrdered By: Lolita Adorno on 05-15-2022 GFR/1.73 sq M.predicted among non-blacks MDRD (S/P/Bld) [Vol rate/Area] 47 mL/Min [facility] Globulin Calc (S) [Mass/Vol] Ordered By: Lolita Adorno on 05-15-2022 Globulin (S) [Mass/Vol] 2.8 g/dL [facility] Hematocrit Auto (Bld) [Volum e fraction]Ordered By: Lolita Adorno on 05-15-2022 Hematocrit (Bld) [Volume fraction] 40.9 % 38.8-50.0 [facility] Laboratory - Hematology and Cell countsOrdered By: Lolita Adorno on 05-15-2022 Nucleated RBC/100 WBC (Bld) [Ratio] 0.2 % 0-0.5 [facility] Lymphocytes Auto (Bld) [#/Vo l]Ordered By: Lolita Adorno on 05-15-2022 Lymphocytes (Bld) [#/Vol] 1.5 10*3/uL 1.00-4.8 [facility] Lymphocytes/100 WBC Auto (Bl d)Ordered By: Lolita Adorno on 05-15-2022 Lymphocytes/100 WBC (Bld) 18.2 % . [facility] MCH Auto (RBC) [Entitic mass ]Ordered By: Lolita Adorno on 05-15-2022 MCH (RBC) [Entitic mass] 28.3 pg 27.5-35.2 [facility] MCHC Auto (RBC) [Mass/Vol]Or dered By: Lolita Adorno on 05-15-2022 MCHC (RBC) [Mass/Vol] 32.6 g/dL 32.5-35.6 [facility] MCV Auto (RBC) [Entitic vol] Ordered By: Lolita Adorno on 05-15-2022 MCV (RBC) [Entitic vol] 86.9 fL 83.5-101 [facility] Monocytes Auto (Bld) [#/Vol] Ordered By: Lolita Adorno on 05-15-2022 Monocytes (Bld) [#/Vol] 0.9 10*3/uL 0.0-0.8 [facility] Monocytes/100 WBC Auto (Bld) Ordered By: Lolita Adorno on 05-15-2022 Monocytes/100 WBC (Bld) 10.5 % . [facility] Neutrophils Auto (Bld) [#/Vo l]Ordered By: Lolita dAorno on 05-15-2022 Neutrophils (Bld) [#/Vol] 5.6 10*3/uL 1.8-7.7 [facility] Neutrophils/100 WBC Auto (Bl d)Ordered By: Lolita Adorno on 05-15-2022 Neutrophils/100 WBC (Bld) 67.2 % . [facility] No Panel InformationOrdered By: Lolita Adorno on 05-15-2022 Estimated GFR () 57 mL/Min [facility] Comment on above: GFR estimated refere nce range: According to KDOQI guidelines, <60 ml/min/1.73m2 is sufficient to diagnose a patient with chronic kidney disease. Pharmacy Creatinine Clearance (Chem N/A [facility] Prostate Specific Antigen Screen 1.710 ng/mL 0.000-4.00 0 [facility] Platelet mean volume Auto (B ld) [Entitic vol]Ordered By: Lolita Adorno on 05-15-2022 Platelet mean volume (Bld) [Entitic vol] 8.8 fL 6.6-10.1 [facility] Platelets Auto (Bld) [#/Vol] Ordered By: Lolita Adorno on 08-10-2022 Platelets (Bld) [#/Vol] 221 10*3/uL 150-450 [facility] Protein [Mass/volume] in Ser um or PlasmaOrdered By: Lolita Adorno on 05-15-2022 Protein [Mass/Vol] 6.9 g/dL 6.1-7.9 [facility] RBC Auto (Bld) [#/Vol]Ordere d By: Lolita Adorno on 05-15-2022 RBC (Bld) [#/Vol] 4.71 10*6/uL 3.90-5.60 [facility] Serum or plasma alanine lujan otransferase measurement without P-5'-P (enzymatic activiOrdered By: Lolita Adorno on 05-15-2022 ALT No additional P-5'-P [Catalytic activity/Vol] 21 U/L 10-60 [facility] Serum or plasma albumin/glob ulin mass ratioOrdered By: Lolita dAorno on 05-15-2022 Albumin/Globulin [Mass ratio] 1.5 {ratio} [facility] Serum or plasma alkaline nata sphatase measurement (enzymatic activity/volume)Ordered By: Lolita Adorno on 05-15-2022 ALP [Catalytic activity/Vol] 86 U/L 32-92 [facility] Serum or plasma aspartate am inotransferase measurement (enzymatic activity/volume)Ordered By: Lolita Adorno on 05-15-2022 AST [Catalytic activity/Vol] 20 U/L 10-42 [facility] Serum or plasma calcium kirk urement (mass/volume)Ordered By: Lolita Adorno on 05-15-2022 Calcium [Mass/Vol] 9.4 mg/dL 8.2-10.2 [facility] Serum or plasma chloride tammy surement (moles/volume)Ordered By: Lolita Adorno on 05-15-2022 Chloride [Moles/Vol] 103 mmol/L 95-114 [facility] Serum or plasma glucose kirk urement (mass/volume)Ordered By: Lolita Adorno on 05-15-2022 Glucose [Mass/Vol] 131 mg/dL 70-100 [facility] Comment on above: ADA recommended refe rence rangeRandom Glucose Reference Range is dependent on time and content of last meal. Glucose of more than 200 mg/dL in a nonstressed, ambulatory subject supports the diagnosis of Diabetes Mellitus. Serum or plasma high density lipoprotein (HDL) cholesterol measurementOrdered By: Lolita Adorno on 05-15-2022 Cholesterol in HDL [Mass/Vol] 33 mg/dL 29-71 [facility] Comment on above: HDL CHOL ATP-III CLA SSIFICATION Cardiovascular RiskHDL > or equal to 60 mg/dL LOWHDL < 40 mg/dL HIGH Serum or plasma potassium me asurement (moles/volume)Ordered By: Lolita Adorno on 05-15-2022 Potassium [Moles/Vol] 4.4 mmol/L 3.5-5.1 [facility] Serum or plasma sodium measu rement (moles/volume)Ordered By: Lolita Adorno on 05-15-2022 Sodium [Moles/Vol] 139 mmol/L 136-146 [facility] Serum or plasma total biliru bin measurement (mass/volume)Ordered By: Lolita Adorno on 05-15-2022 Bilirubin [Mass/Vol] 0.4 mg/dL 0.3-1.2 [facility] Serum or plasma total carbon dioxide measurement (moles/volume)Ordered By: Lolita Adorno on 05-15-2022 CO2 [Moles/Vol] 25.4 mmol/L 22.0-30.0 [facility] Serum or plasma total choles terol/high density lipoprotein (HDL) cholesterol mass ratOrdered By: Lolita Adorno on 05-15-2022 Cholesterol.total/Flavia sterol in HDL [Mass ratio] 3.1 {ratio} <5.0 [facility] Serum or plasma urea nitroge n measurement (mass/volume)Ordered By: Lolita Adorno on 05-15-2022 Urea nitrogen [Mass/Vol] 23 mg/dL 9-23 [facility] TSH DL <= 0.005 mIU/L QnOrde red By: Lolita Adorno on 05-15-2022 TSH Qn 2.88 m[IU]/L 0.45-5.33 [facility] Triglyceride [Mass/volume] i n Serum or PlasmaOrdered By: Lolita Adorno on 05-15-2022 Triglyceride [Mass/Vol] 122 mg/dL 35-149 [facility] Comment on above: TRIG ATP III CLASSIF ICATIONTRIG less than 150 mg/dL NormalTRIG 150-199 mg/dL Borderline highTRIG 200-500 mg/dL High TRIG greater than 500 mg/dL Very highStandard traceable to the Center for Disease Conrtrol and Prevention (CDC) test method. A1C HEMOGLOBINon 05-14-2022 HbA1c (Bld) [Mass fraction] 6.5 % [facility] Other HbA1c (Bld) [Mass fraction]o n 05-14-2022 A1C HEMOGLOBIN [facility] Other Tobacco Screening.on 022 Adult depression screening assessment No [facility] y 250 DO Work Phone: Fall risk assessment a) No falls within the last year [facility] y 250 DO Work Phone: Tobacco use status [facility] a) Yes [facility] y 250 DO Work Phone: Tobacco Screening. Yes [facility] 250 DO Work Phone: A1C HEMOGLOBINon 02-11-2022 HbA1c (Bld) [Mass fraction] 6.3 % [facility] Other HbA1c (Bld) [Mass fraction]o n 02-11-2022 A1C HEMOGLOBIN [facility] Other A1C HEMOGLOBINon 11-13-2021 HbA1c (Bld) [Mass fraction] 6.8 % [facility] Other HbA1c (Bld) [Mass fraction]o n 11-13-2021 A1C HEMOGLOBIN [facility] Other Tobacco Screening.on 021 Fall risk assessment b) One or more fall s in the last year [facility] 250 DO Work Phone: Tobacco use status [facility] a) Yes [facility] 250 DO Work Phone: Tobacco Screening. Yes [facility] 250 DO Work Phone: NO CARDIAC STRESS/REST ([facility] CARDIAL PERFUSION/MIBI)on 09-25-2020 [facility] CARDIAC STRESS/REST (MYOCARDIAL PERFUSION/MIBI) Patient Name: DAVE LUGO STUDY: MYOCARDIAL PERFUSION STRESS TEST WITH LEXISCAN Performing facility: [facility], \[address], [address], \[place] [address] [facility] Provider: Jesse Morrissey MD PCP: Dr. Kristopher Dumont Supervising provider: Adalberto Tom MD, [facility] INDICATION: CAD; Chest Pain; Diabetes Essential HTN Hyperlipidemia HISTORY: Gender: M; Age: 70 y/o ; Height: 170.18 cm; Weight: 82.1498019 kg. High Cholesterol; CAD; Diabetes; Previous ND; HTN; Chest Pain; Quit smoking 3 years ago. PTCA on 2016. COMPARISON: Previous nuclear testing completed [id number] [facility] at [facility]. ACCESSION NUMBER(S): [id number]; [id number]; [id number] ORDERING CLINICIAN: JESSE MORRISSEY TECHNIQUE: ONE DAY protocol. Stress injection: Date:09/25/2020, 32.5 mCi of Myoview IV 20 seconds after rapid injection of Lexiscan. Rest injection: Date: 09/25/2020, 11.8 mCi of Myoview IV at rest. The patient had a rapid injection of 0.4 mg of Lexiscan IV over 10 seconds. Imaging was performed by gated tomographic technique. Reason for Lexiscan: Leg pain STRESS TEST DATA: Resting heart rate was 77 BPM. Resting blood pressure was 122/76 mmHg. Peak blood pressure was 122/70 mmHg. Peak heart rate was 83 BPM. TEST TERMINATED DUE TO: Protocol completed FINDINGS: STRESS TEST RESULTS: Resting electrocardiogram revealed normal sinus rhythm with non-specific ST and T changes. There were no significant ischemic ECG changes or dysrhythmias. The patient did not have chest pains/symptoms during procedure. There was a normal recovery phase. IMAGING RESULTS: Image quality was good. Rest and stress tomographic images were reviewed and revealed abnormal perfusion. There was no evidence of perfusion abnormality suggestive myocardial ischemia. There was evidence of perfusion abnormality consistent with infarction involving the entire inferior wall. There was no left ventricular dilatation with stress. Overall left ventricular systolic function appeared to be abnormal. There were regional wall motion abnormalities with mild inferior hypokinesis. LVEF was 52%. TID is 1.08 and is normal. There was no evidence of attenuation artifact. IMPRESSION: Abnormal Lexiscan Myoview cardiac perfusion stress test. No myocardial ischemia by perfusion imaging. Moderate-sized inferior wall myocardial infarction by perfusion imaging. Abnormal left ventricular systolic function. Left ventricular ejection fraction 52 %. Inferior wall hypokinesis is noted When compared to study from another lab from 2019 there has been no interval changes. Electronically signed by: GABRIELA FLORIAN MD [facility] CARDIAC STRESS/REST INJE CTIONon 09-25-2020 [facility] CARDIAC STRESS/REST INJECTION Patient Name: DAVE LUGO STUDY: MYOCARDIAL PERFUSION STRESS TEST WITH LEXISCAN Performing facility: [facility], \[address], [address], \[address] Provider: Jesse Morrissey MD PCP: Dr. Kristopher Dumont Supervising provider: Adalberto Tom MD, [facility] INDICATION: CAD; Chest Pain; Diabetes Essential HTN Hyperlipidemia HISTORY: Gender: M; Age: 70 y/o ; Height: 170.18 cm; Weight: 82.5830961 kg. High Cholesterol; CAD; Diabetes; Previous ND; HTN; Chest Pain; Quit smoking 3 years ago. PTCA on 2017. COMPARISON: Previous nuclear testing completed [id number] [facility] at [facility]. ACCESSION NUMBER(S): [id number]; [id number]; [id number] ORDERING CLINICIAN: JESSE MORRISSEY TECHNIQUE: ONE DAY protocol. Stress injection: Date:09/25/2020, 32.5 mCi of Myoview IV 20 seconds after rapid injection of Lexiscan. Rest injection: Date: 09/25/2020, 11.8 mCi of Myoview IV at rest. The patient had a rapid injection of 0.4 mg of Lexiscan IV over 10 seconds. Imaging was performed by gated tomographic technique. Reason for Lexiscan: Leg pain STRESS TEST DATA: Resting heart rate was 77 BPM. Resting blood pressure was 122/76 mmHg. Peak blood pressure was 122/70 mmHg. Peak heart rate was 83 BPM. TEST TERMINATED DUE TO: Protocol completed FINDINGS: STRESS TEST RESULTS: Resting electrocardiogram revealed normal sinus rhythm with non-specific ST and T changes. There were no significant ischemic ECG changes or dysrhythmias. The patient did not have chest pains/symptoms during procedure. There was a normal recovery phase. IMAGING RESULTS: Image quality was good. Rest and stress tomographic images were reviewed and revealed abnormal perfusion. There was no evidence of perfusion abnormality suggestive myocardial ischemia. There was evidence of perfusion abnormality consistent with infarction involving the entire inferior wall. There was no left ventricular dilatation with stress. Overall left ventricular systolic function appeared to be abnormal. There were regional wall motion abnormalities with mild inferior hypokinesis. LVEF was 52%. TID is 1.08 and is normal. There was no evidence of attenuation artifact. IMPRESSION: Abnormal Lexiscan Myoview cardiac perfusion stress test. No myocardial ischemia by perfusion imaging. Moderate-sized inferior wall myocardial infarction by perfusion imaging. Abnormal left ventricular systolic function. Left ventricular ejection fraction 52 %. Inferior wall hypokinesis is noted When compared to study from another lab from 2019 there has been no interval changes. Electronically signed by: GABRIELA FLORIAN MD [facility] PART 2 STRESS OR REST (N O CHARGE)on 09-25-2020 [facility] PART 2 STRESS OR REST (NO CHARGE) Patient Name: DAVE LUGO STUDY: MYOCARDIAL PERFUSION STRESS TEST WITH LEXISCAN Performing facility: [facility], \[address], [address], \[place] [address] [facility] Provider: Jesse Morrissey MD PCP: Dr. Kristopher Dumont Supervising provider: Adalberto Tom MD, [facility] INDICATION: CAD; Chest Pain; Diabetes Essential HTN Hyperlipidemia HISTORY: Gender: M; Age: 70 y/o ; Height: 170.18 cm; Weight: 82.6277560 kg. High Cholesterol; CAD; Diabetes; Previous ND; HTN; Chest Pain; Quit smoking 3 years ago. PTCA on 2017. COMPARISON: Previous nuclear testing completed [id number] [facility] at [facility] [place]. ACCESSION NUMBER(S): [id number]; [id number]; [id number] ORDERING CLINICIAN: JESSE MORRISSEY TECHNIQUE: ONE DAY protocol. Stress injection: Date:09/25/2020, 32.5 mCi of Myoview IV 20 seconds after rapid injection of Lexiscan. Rest injection: Date: 09/25/2020, 11.8 mCi of Myoview IV at rest. The patient had a rapid injection of 0.4 mg of Lexiscan IV over 10 seconds. Imaging was performed by gated tomographic technique. Reason for Lexiscan: Leg pain STRESS TEST DATA: Resting heart rate was 77 BPM. Resting blood pressure was 122/76 mmHg. Peak blood pressure was 122/70 mmHg. Peak heart rate was 83 BPM. TEST TERMINATED DUE TO: Protocol completed FINDINGS: STRESS TEST RESULTS: Resting electrocardiogram revealed normal sinus rhythm with non-specific ST and T changes. There were no significant ischemic ECG changes or dysrhythmias. The patient did not have chest pains/symptoms during procedure. There was a normal recovery phase. IMAGING RESULTS: Image quality was good. Rest and stress tomographic images were reviewed and revealed abnormal perfusion. There was no evidence of perfusion abnormality suggestive myocardial ischemia. There was evidence of perfusion abnormality consistent with infarction involving the entire inferior wall. There was no left ventricular dilatation with stress. Overall left ventricular systolic function appeared to be abnormal. There were regional wall motion abnormalities with mild inferior hypokinesis. LVEF was 52%. TID is 1.08 and is normal. There was no evidence of attenuation artifact. IMPRESSION: Abnormal Lexiscan Myoview cardiac perfusion stress test. No myocardial ischemia by perfusion imaging. Moderate-sized inferior wall myocardial infarction by perfusion imaging. Abnormal left ventricular systolic function. Left ventricular ejection fraction 52 %. Inferior wall hypokinesis is noted When compared to study from another lab from 2019 there has been no interval changes. Electronically signed by: GABRIELA FLORIAN MD [facility] Vital Signs Date Time Vital Sign Value Performing Clinician Facility 04-26-2024 13:46-0400 Body height 167.64 cm DO Lolita Adorno Work Phone: [facility] 04-26-2024 13:46-0400 Body mass index (BMI) [Ratio] 27.4 kg/m2 DO Lolita Schwerer Work Phone: [facility] 04-26-2024 13:46-0400 Body temperature 97.2 [degF] DO Lolita Schwerer Work Phone: [facility] 04-26-2024 13:46-0400 Body weight 77.11 kg DO Lolita Schwerer Work Phone: [facility] 04-26-2024 13:46-0400 Diastolic blood pressure 88 mm[Hg] DO Lolita Schwerer Work Phone: [facility] 04-26-2024 13:46-0400 Heart rate 74 /min DO Lolita Schwerer Work Phone: [facility] 04-26-2024 13:46-0400 Respiratory rate 18 /min DO Lolita Schwerer Work Phone: [facility] 04-26-2024 13:46-0400 SaO2% (BldA) [Mass fraction] 97 % DO Lolita Schwerer Work Phone: [facility] 04-26-2024 13:46-0400 Systolic blood pressure 204 mm[Hg] DO Lolita Schwerer Work Phone: [facility] 03-22-2024 10:54-0400 Body height 167.64 cm [facility] 03-22-2024 10:54-0400 Body mass index (BMI) [Ratio] 26.9 kg/m2 [facility] 03-22-2024 10:54-0400 Body weight 75.8 kg [facility] 03-22-2024 10:54-0400 Diastolic blood pressure 72 mm[Hg] [facility] 03-22-2024 10:54-0400 Heart rate 76 /min [facility] 03-22-2024 10:54-0400 Respiratory rate 18 /min [facility] 03-22-2024 10:54-0400 SaO2% (BldA) [Mass fraction] 95 % [facility] 03-22-2024 10:54-0400 Systolic blood pressure 138 mm[Hg] [facility] 12-26-2023 10:13-0400 Body weight 76.2 kg DO Lolita Schwerer Work Phone: [facility] 12-26-2023 10:13-0400 Diastolic blood pressure 86 mm[Hg] DO Lolita Schwerer Work Phone: [facility] 12-26-2023 10:13-0400 Heart rate 69 /min DO Lolita Schwerer Work Phone: [facility] 12-26-2023 10:13-0400 Systolic blood pressure 168 mm[Hg] DO Lolita Schwerer Work Phone: [facility] 12-25-2023 10:46-0400 Body height 167.64 cm DO Lolita Schwerer Work Phone: [facility] 12-25-2023 10:46-0400 Body mass index (BMI) [Ratio] 27.1 kg/m2 DO Lolita Schwerer Work Phone: [facility] 12-25-2023 10:46-0400 Body temperature 98 [degF] DO Lolita Schwerer Work Phone: [facility] 12-25-2023 10:46-0400 Body weight 76.37 kg DO Lolita Schwerer Work Phone: [facility] 12-25-2023 10:46-0400 Diastolic blood pressure 76 mm[Hg] DO Lolita Schwerer Work Phone: [facility] 12-25-2023 10:46-0400 Heart rate 70 /min DO Lolita Schwerer Work Phone: [facility] 12-25-2023 10:46-0400 SaO2% (BldA) [Mass fraction] 99 % DO Lolita Schwerer Work Phone: [facility] 12-25-2023 10:46-0400 Systolic blood pressure 132 mm[Hg] DO Lolita Schwerer Work Phone: [facility] 10-16-2023 09:03-0500 Body height 165.1 cm Gabriela Florian MD Work Phone: [facility] 10-16-2023 09:03-0500 Body mass index (BMI) [Ratio] 27.12 kg/m2 Gabriela Florian MD Work Phone: [facility] 10-16-2023 09:03-0500 Body weight 73.94 kg Gabriela Florian MD Work Phone: [facility] 10-16-2023 09:03-0500 Diastolic blood pressure 60 mm[Hg] Gabriela Florian MD Work Phone: [facility] 10-16-2023 09:03-0500 Heart rate 62 /min Gabriela Florian MD Work Phone: [facility] 10-16-2023 09:03-0500 Systolic blood pressure 102 mm[Hg] Gabriela Florian MD Work Phone: [facility] 09-25-2023 09:00-0500 Body height 167.64 cm Beth Lowe Other [facility] Other 09-25-2023 09:00-0500 Body mass index (BMI) [Ratio] 26.95 kg/m2 Beth Lowe Other [facility] Other 09-25-2023 09:00-0500 Body weight 75.75 kg Beth Lowe Other [facility] Other 09-23-2023 10:45-0500 Body height 167.64 cm Lolita Schwerer Other [facility] Other 09-23-2023 10:45-0500 Body mass index (BMI) [Ratio] 26.97 kg/m2 Lolita Schwerer Other [facility] Other 09-23-2023 10:45-0500 Body temperature 98.1 [degF] Lolita Schwerer Other [facility] Other 09-23-2023 10:45-0500 Body weight 75.8 kg Lolita Schwerer Other [facility] Other 09-23-2023 10:45-0500 Diastolic blood pressure 88 mm[Hg] Lolita Schwerer Other [facility] Other 09-23-2023 10:45-0500 SaO2% (BldA) [Mass fraction] 99 % Lolita Schwerer Other [facility] Other 09-23-2023 10:45-0500 Systolic blood pressure 158 mm[Hg] Lolita Schwerer Other [facility] Other 09-18-2023 09:15-0500 Body height 167.64 cm Lyudmila Christopher Other [facility] Other 09-11-2023 11:37-0500 Diastolic blood pressure 58 mm[Hg] DO Lolita Schwerer Work Phone: [facility] 09-11-2023 11:37-0500 Heart rate 74 /min DO Lolita Schwerer Work Phone: [facility] 09-11-2023 11:37-0500 Respiratory rate 18 /min DO Lolita Schwerer Work Phone: [facility] 09-11-2023 11:37-0500 SaO2% (BldA) [Mass fraction] 95 % DO Lolita Schwerer Work Phone: [facility] 09-11-2023 11:37-0500 Systolic blood pressure 128 mm[Hg] DO Lolita Schwerer Work Phone: [facility] 09-11-2023 08:00-0500 Body temperature 98.1 [degF] DO Lolita Schwerer Work Phone: [facility] 09-11-2023 06:00-0500 Body weight 74.5 kg DO Lolita Schwerer Work Phone: [facility] 09-09-2023 14:30-0500 Body height 167.64 cm DO Lolita Schwerer Work Phone: [facility] 08-21-2023 09:15-0500 Body height 167.64 cm Lyudmila White Other [facility] Other 08-21-2023 09:15-0500 Body mass index (BMI) [Ratio] 26.63 kg/m2 Lyudmila White Other [facility] Other 08-21-2023 09:15-0500 Body weight 74.84 kg Lyudmila White Other [facility] Other 07-31-2023 11:15-0400 Body height 167.64 cm Prieto aSnto Other [facility] Other 07-24-2023 11:00-0400 Body height 167.64 cm Prieto Santo Other [facility] [employer] Other 07-22-2023 13:39-0400 Body height 165.1 cm DO Lolita Schwerer Work Phone: [facility] [place] 07-22-2023 13:39-0400 Body temperature 97.7 [degF] DO Lolita Schwerer Work Phone: [facility] [place] 07-22-2023 13:39-0400 Body weight 74.84 kg DO Lolita Schwerer Work Phone: [facility] [place] 07-22-2023 13:39-0400 Diastolic blood pressure 79 mm[Hg] DO Lolita Schwerer Work Phone: [facility] [place] 07-22-2023 13:39-0400 Heart rate 72 /min DO Lolita Schwerer Work Phone: [facility] [place] 07-22-2023 13:39-0400 Respiratory rate 18 /min DO Lolita Schwerer Work Phone: [facility] [place] 07-22-2023 13:39-0400 SaO2% (BldA) [Mass fraction] 96 % DO Lolita Schwerer Work Phone: [facility] [place] 07-22-2023 13:39-0400 Systolic blood pressure 155 mm[Hg] DO Lolita Schwerer Work Phone: [facility] [place] 06-18-2023 09:30-0400 Body height 167.64 cm Beth Lowe Other [employer] Other 06-18-2023 09:30-0400 Body mass index (BMI) [Ratio] 26.63 kg/m2 Beth Lowe Other [employer] Other 06-18-2023 09:30-0400 Body weight 74.84 kg Beth Lowe Other [employer] Other 06-02-2023 13:45-0400 Body height 167.64 cm Lolita Schwerer Other [employer] Other 06-02-2023 13:45-0400 Body mass index (BMI) [Ratio] 26.47 kg/m2 Lolita Schwerer Other [employer] Other 06-02-2023 13:45-0400 Body weight 74.39 kg Lolita Schwerer Other [employer] Other 06-02-2023 13:45-0400 Diastolic blood pressure 72 mm[Hg] Lolita Schwerer Other [employer] Other 06-02-2023 13:45-0400 Respiratory rate 18 /min Loilta Schwerer Other [employer] Other 06-02-2023 13:45-0400 SaO2% (BldA) [Mass fraction] 96 % Lolita Schwerer Other [employer] Other 06-02-2023 13:45-0400 Systolic blood pressure 142 mm[Hg] Lolita Schwerer Other [employer] Other 05-06-2023 10:40-0400 Body height 167.64 cm [employer] Other [employer] Other 05-06-2023 10:40-0400 Body mass index (BMI) [Ratio] 26.63 kg/m2 [employer] Other [employer] Other 05-06-2023 10:40-0400 Body weight 74.84 kg Beth Lowe Other [facility] [employer] Other 05-06-2023 10:40-0400 Diastolic blood pressure 76 mm[Hg] Beth Lowe Other [facility] [employer] Other 05-06-2023 10:40-0400 Systolic blood pressure 138 mm[Hg] Beth Lowe Other [facility] [employer] Other 04-22-2023 09:28-0400 Body height 167.64 cm Lolita Adorno Work Phone: [facility] [facility] DO Work Phone: 04-22-2023 09:28-0400 Body mass index (BMI) [Ratio] 26.63 kg/m2 Lolita Travis Schwerer Work Phone: [facility] 250 DO Work Phone: 04-22-2023 09:28-0400 Body surface area Derived from formula 1.84 m2 Lolita Travis Schwidar Work Phone: [facility] 250 DO Work Phone: 04-22-2023 09:28-0400 Body weight 74.84 kg Lolita Travis Schwerer Work Phone: [facility] 250 DO Work Phone: 04-22-2023 09:28-0400 Diastolic blood pressure 68 mm[Hg] Lolita Travis Schwerer Work Phone: [facility] 250 DO Work Phone: 04-22-2023 09:28-0400 Heart rate 76 /min Lolita Travis Schwerer Work Phone: [facility] 250 DO Work Phone: 04-22-2023 09:28-0400 Systolic blood pressure 124 mm[Hg] Lolita E Schwerer Work Phone: [facility] 250 DO Work Phone: 12-25-2022 10:30-0400 Body height 167.64 cm [employer] Other [facility] [employer] Other 12-25-2022 10:30-0400 Body mass index (BMI) [Ratio] 26.47 kg/m2 [employer] Other [employer] Other 12-25-2022 10:30-0400 Body weight 74.39 kg [employer] Other [employer] Other 12-25-2022 10:30-0400 Diastolic blood pressure 72 mm[Hg] [employer] Other [employer] Other 12-25-2022 10:30-0400 Systolic blood pressure 126 mm[Hg] [employer] Other [employer] Other 11-25-2022 14:30-0500 Body height 167.64 cm Lolitatoy Mendeserecasey Other [employer] Other 11-25-2022 14:30-0500 Body mass index (BMI) [Ratio] 26.56 kg/m2 Lolita Schwerer Other [employer] Other 11-25-2022 14:30-0500 Body weight 74.66 kg Lolita Schwerer Other [employer] Other 11-25-2022 14:30-0500 Diastolic blood pressure 80 mm[Hg] Lolita Schwerer Other [employer] Other 11-25-2022 14:30-0500 Respiratory rate 18 /min Lolita Adorno Other [employer] Other 11-25-2022 14:30-0500 SaO2% (BldA) [Mass fraction] 98 % Lolita Adorno Other [employer] Other 11-25-2022 14:30-0500 Systolic blood pressure 138 mm[Hg] Lolita Adorno Other [employer] Other 10-17-2022 10:00-0500 Body height 167.64 cm [employer] Other [employer] Other 10-17-2022 10:00-0500 Body mass index (BMI) [Ratio] 27.11 kg/m2 [employer] Other [employer] Other 10-17-2022 10:00-0500 Body weight 76.2 kg [employer] Other [employer] Other 10-16-2022 10:17-0500 Body height 167.64 cm Lolita Mendeserer Work Phone: [facility] [employer] 250 DO Work Phone: 10-16-2022 10:17-0500 Body mass index (BMI) [Ratio] 27.44 kg/m2 Lolita Travis Schwerer Work Phone: [facility] [employer] 250 DO Work Phone: 10-16-2022 10:17-0500 Body surface area Derived from formula 1.87 m2 Lolita E Schwerer Work Phone: [facility] [employer] 250 DO Work Phone: 10-16-2022 10:17-0500 Body weight 77.11 kg Lolita E Schwerer Work Phone: [facility] 250 DO Work Phone: 10-16-2022 10:17-0500 Diastolic blood pressure 64 mm[Hg] Lolita E Schwerer Work Phone: [facility] 250 DO Work Phone: 10-16-2022 10:17-0500 Heart rate 88 /min Lolita E Schwerer Work Phone: [facility] 250 DO Work Phone: 10-16-2022 10:17-0500 Systolic blood pressure 122 mm[Hg] Lolita E Schwerer Work Phone: [facility] 250 DO Work Phone: 10-06-2022 11:15-0500 Body temperature 98.1 [degF] DO Lolita Schwerer Work Phone: [facility] [place] 10-06-2022 11:15-0500 Diastolic blood pressure 88 mm[Hg] DO Lolita Schwerer Work Phone: [facility] [place] 10-06-2022 11:15-0500 Heart rate 80 /min DO Lolita Schwerer Work Phone: [facility] [place] 10-06-2022 11:15-0500 Respiratory rate 18 /min DO Lolita Schwerer Work Phone: [facility] [place] 10-06-2022 11:15-0500 SaO2% (BldA) [Mass fraction] 98 % DO Lolita Schwerer Work Phone: [facility] [place] 10-06-2022 11:15-0500 Systolic blood pressure 155 mm[Hg] DO Lolita Schwerer Work Phone: [facility] [place] 10-06-2022 03:30-0500 Body weight 76 kg DO Lolita Schwerer Work Phone: [facility] [place] 10-04-2022 10:45-0500 Body height 168.91 cm DO Lolita Schwerer Work Phone: [facility] [place] 10-02-2022 10:14-0500 Inhaled oxygen flow rate 8 L/min DO Lolita Schwerer Work Phone: [facility] [place] 10-02-2022 08:15-0500 Body mass index (BMI) [Ratio] 26.7 kg/m2 DO Lolita Schwerer Work Phone: [facility] [place] 08-19-2022 16:00-0500 Body height 167.64 cm Lolita Schwerer Other [employer] Other 08-19-2022 16:00-0500 Body mass index (BMI) [Ratio] 27.19 kg/m2 Lolita Schwerer Other [employer] Other 08-19-2022 16:00-0500 Body weight 76.43 kg Lolita Schwerer Other [employer] Other 08-19-2022 16:00-0500 Diastolic blood pressure 88 mm[Hg] Lolita Schwerer Other [employer] Other 08-19-2022 16:00-0500 Respiratory rate 18 /min Lolita Schwerer Other [employer] Other 08-19-2022 16:00-0500 SaO2% (BldA) [Mass fraction] 98 % Lolita Schwerer Other [employer] Other 08-19-2022 16:00-0500 Systolic blood pressure 122 mm[Hg] Lolita Schwerer Other [employer] Other 07-14-2022 09:32-0400 Diastolic blood pressure 85 mm[Hg] DO Lolita Schwerer Work Phone: [facility] [place] 07-14-2022 09:32-0400 Heart rate 78 /min DO Lolita Schwerer Work Phone: [facility] [place] 07-14-2022 09:32-0400 Respiratory rate 16 /min DO Lolita Schwerer Work Phone: [facility] [place] 07-14-2022 09:32-0400 SaO2% (BldA) [Mass fraction] 98 % DO Lolita Schwerer Work Phone: [facility] [place] 07-14-2022 09:32-0400 Systolic blood pressure 158 mm[Hg] DO Lolita Schwerer Work Phone: [facility] [place] 07-14-2022 09:03-0400 Body height 165.1 cm DO Lolita Schwerer Work Phone: [facility] [place] 07-14-2022 09:03-0400 Body temperature 97 [degF] DO Lolita Schwerer Work Phone: [facility] [place] 07-14-2022 09:03-0400 Body weight 79.37 kg DO Lolita Schwerer Work Phone: [facility] [place] 06-20-2022 09:20-0400 Body height 167.64 cm Clemente Miller Other [employer] Other 06-20-2022 09:20-0400 Body mass index (BMI) [Ratio] 26.47 kg/m2 Clemente Miller Other [employer] Other 06-20-2022 09:20-0400 Body weight 74.39 kg Clemente Miller Other [employer] Other 05-14-2022 15:00-0400 Body height 167.64 cm Lolita Schwerer Other [employer] Other 05-14-2022 15:00-0400 Body mass index (BMI) [Ratio] 26.6 kg/m2 Lolita Schwerer Other [employer] Other 05-14-2022 15:00-0400 Body weight 74.75 kg Lolita Schwerer Other [employer] Other 05-14-2022 15:00-0400 Diastolic blood pressure 78 mm[Hg] Lolita Schwerer Other [employer] Other 05-14-2022 15:00-0400 Respiratory rate 18 /min Lolita Schwerer Other [employer] Other 05-14-2022 15:00-0400 SaO2% (BldA) [Mass fraction] 98 % Lolita Schwerer Other [employer] Other 05-14-2022 15:00-0400 Systolic blood pressure 118 mm[Hg] Lolita Schwerer Other [employer] Other 03-28-2022 10:52-0400 Body height 167.64 cm Lolita E Schwerer Work Phone: [facility] 250 DO Work Phone: 03-28-2022 10:52-0400 Body mass index (BMI) [Ratio] 26.63 kg/m2 Lolita E Schwerer Work Phone: [facility] 250 DO Work Phone: 03-28-2022 10:52-0400 Body surface area Derived from formula 1.84 m2 Lolita E Schwerer Work Phone: [facility] 250 DO Work Phone: 03-28-2022 10:52-0400 Body weight 74.84 kg Lolita E Schwerer Work Phone: [facility] 250 DO Work Phone: 03-28-2022 10:52-0400 Diastolic blood pressure 70 mm[Hg] Lolita E Schwerer Work Phone: [facility] 250 DO Work Phone: 03-28-2022 10:52-0400 Heart rate 78 /min Lolita E Schwerer Work Phone: [facility] 250 DO Work Phone: 03-28-2022 10:52-0400 Systolic blood pressure 132 mm[Hg] Lolita E Schwerer Work Phone: [facility] 250 DO Work Phone: 02-11-2022 15:15-0400 Body height 167.64 cm Lolita Schwerer Other [email or web address] [facility] [employer] Other 02-11-2022 15:15-0400 Body mass index (BMI) [Ratio] 26.74 kg/m2 Lolita Schwerer Other [employer] Other 02-11-2022 15:15-0400 Body weight 75.16 kg Loilta Schwerer Other [employer] Other 02-11-2022 15:15-0400 Diastolic blood pressure 72 mm[Hg] Lolita Schwerer Other [employer] Other 02-11-2022 15:15-0400 Respiratory rate 18 /min Lolita Schwerer Other [employer] Other 02-11-2022 15:15-0400 SaO2% (BldA) [Mass fraction] 99 % Lolita Schwerer Other [employer] Other 02-11-2022 15:15-0400 Systolic blood pressure 118 mm[Hg] Lolita Schwerer Other [employer] Other 11-13-2021 10:00-0500 Body height 167.64 cm Lolita Schwerer Other [employer] Other 11-13-2021 10:00-0500 Body mass index (BMI) [Ratio] 27.19 kg/m2 Lolita Schwerer Other [employer] Other 11-13-2021 10:00-0500 Body weight 76.43 kg Lolita Schwerer Other [employer] Other 11-13-2021 10:00-0500 Diastolic blood pressure 78 mm[Hg] Lolita Schwerer Other [employer] Other 11-13-2021 10:00-0500 Respiratory rate 18 /min Lolita Schwerer Other [employer] Other 11-13-2021 10:00-0500 SaO2% (BldA) [Mass fraction] 98 % Lolita Adorno Other [employer] Other 11-13-2021 10:00-0500 Systolic blood pressure 130 mm[Hg] Lolita Adorno Other [employer] Other 10-31-2021 16:30-0500 Body height 167.64 cm Yohannes Granda Other [employer] Other 10-31-2021 16:30-0500 Body mass index (BMI) [Ratio] 28.08 kg/m2 Yohannes Granda Other [employer] Other 10-31-2021 16:30-0500 Body temperature 98.2 [degF] Yohannes Granda Other [employer] Other 10-31-2021 16:30-0500 Body weight 78.93 kg Yohannes Granda Other [employer] Other 10-31-2021 16:30-0500 Diastolic blood pressure 84 mm[Hg] Yohannes Granda Other [employer] Other 10-31-2021 16:30-0500 Respiratory rate 18 /min Yohannes Granda Other [employer] Other 10-31-2021 16:30-0500 SaO2% (BldA) [Mass fraction] 98 % Yohannes Granda Other [employer] Other 10-31-2021 16:30-0500 Systolic blood pressure 144 mm[Hg] Yohannes Granda Other [employer] Other 09-19-2021 10:07-0500 Diastolic blood pressure 60 mm[Hg] Lolita E Schwerer Work Phone: [facility] 250 DO Work Phone: 09-19-2021 10:07-0500 Systolic blood pressure 132 mm[Hg] Lolita E Schwerer Work Phone: [facility] 250 DO Work Phone: 09-19-2021 09:51-0500 Diastolic blood pressure 80 mm[Hg] Lolita E Schwerer Work Phone: [facility] 250 DO Work Phone: 09-19-2021 09:51-0500 Systolic blood pressure 150 mm[Hg] Lolita E Schwerer Work Phone: [facility] 250 DO Work Phone: 09-19-2021 09:47-0500 Body height 167.64 cm Lolita E Schwerer Work Phone: [facility] 250 DO Work Phone: 09-19-2021 09:47-0500 Body mass index (BMI) [Ratio] 27.6 kg/m2 Lolita E Schwerer Work Phone: [facility] 250 DO Work Phone: 09-19-2021 09:47-0500 Body surface area Derived from formula 1.87 m2 Lolita E Schwerer Work Phone: [facility] 250 DO Work Phone: 09-19-2021 09:47-0500 Body weight 77.57 kg Lolita E Schwerer Work Phone: [facility] 250 DO Work Phone: 09-19-2021 09:47-0500 Diastolic blood pressure 92 mm[Hg] Lolita E Schwerer Work Phone: [facility] [employer] 250 DO Work Phone: 09-19-2021 09:47-0500 Heart rate 73 /min Lolita E Schwerer Work Phone: [facility] [employer] 250 DO Work Phone: 09-19-2021 09:47-0500 Systolic blood pressure 162 mm[Hg] Lolita E Schwerer Work Phone: [facility] [employer] 250 DO Work Phone: 08-09-2021 10:00-0400 Body height 167.64 cm Lolita Schwerer Other [employer] Other 08-09-2021 10:00-0400 Body mass index (BMI) [Ratio] 27.44 kg/m2 Lolita Schwerer Other [employer] Other 08-09-2021 10:00-0400 Body weight 77.11 kg Lolita Schwerer Other [employer] Other 08-09-2021 10:00-0400 Diastolic blood pressure 94 mm[Hg] Lolita Schwerer Other [employer] Other 08-09-2021 10:00-0400 Respiratory rate 18 /min Lolita Schwerer Other [employer] Other 08-09-2021 10:00-0400 SaO2% (BldA) [Mass fraction] 96 % Lolita Schwerer Other [employer] Other 08-09-2021 10:00-0400 Systolic blood pressure 142 mm[Hg] Lolita Schwerer Other [facility] [employer] Other Encounters Encounter Date Encounter Type Care Provider Facility Start: 04-26-2024 End: 04-26-2024 ambulatory DO Lolita E Schwerer Work Phone: [facility] Work Phone: Start: 04-26-2024 End: 04-26-2024 Patient encounter procedure DO Lolita Schwerer Work Phone: [facility] Work Phone: Start: 03-22-2024 Encounter for genera l adult medical examination without abnormal findings Lolita E Schwerer [facility] Start: 03-22-2024 End: 03-22-2024 ambulatory DO Lolita E Schwerer Work Phone: [facility] Work Phone: Start: 03-22-2024 End: 03-22-2024 Patient encounter procedure [facility] [place] Work Phone: Start: 12-26-2023 End: 12-26-2023 ambulatory DO Lolita E Schwerer Work Phone: [facility] Work Phone: Start: 12-26-2023 End: 12-26-2023 Patient encounter procedure DO Lolita Schwerer Work Phone: [facility] Physician [facility] Gastroenterology Work Phone: Start: 12-25-2023 End: 12-25-2023 ambulatory DO Lolita E Schwerer Work Phone: [facility] Work Phone: Start: 12-25-2023 End: 12-25-2023 Patient encounter procedure DO Lolita Schwerer Work Phone: [facility] [place] Work Phone: Start: 12-01-2023 Non-patient / Non-visit DO Med Adorno Work Phone: [facility] [employer] Work Phone: Start: 11-17-2023 End: 11-17-2023 ambulatory Lolita Mendeserer Other [facility] [employer] Other Start: 11-17-2023 Telephone encounter Lolita Aragonr [facility] [place] Start: 10-30-2023 End: 10-30-2023 ambulatory Nette Adina Other [facility] [employer] Other Start: 10-30-2023 Office outpatient vi sit 25 minutes Nette Burnettr [facility] Start: 10-17-2023 End: 10-17-2023 Patient encounter procedure DO Lolita Adorno Work Phone: [facility] C[facility]-Lab [facility] [place] Work Phone: Start: 10-17-2023 End: 10-17-2023 ambulatory DO Lolita Adorno Work Phone: [facility] Ctr Work Phone: Start: 10-16-2023 End: 10-16-2023 [facility] Start: 10-16-2023 End: 10-16-2023 Office outpatient visit 25 minutes Gabriela Florian MD Work Phone: [facility] Comment on above: 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of n ative coronary artery of [place] heart without angina pectoris; Essential hypertension; History of ND (myocardial infarction); Mixed hyperlipidemia; S/P PTCA (percutaneous transluminal coronary angioplasty); Stage 3a chronic kidney disease (CMS/HCC); Current smoker on some days; Type 2 diabetes mellitus without complication, with long-term current use of insulin (CMS/[facility]); Overweight with body mass index (BMI) of 27 to 27.9 in adult; 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 Start: 09-23-2023 End: 09-23-2023 Patient encounter procedure DO Lolita Schwerer Work Phone: [facility] Ctr[facility]Lab [facility] Start: 09-23-2023 End: 09-23-2023 ambulatory DO Lolita E Schwerer Work Phone: [facility] [employer] Other Start: 09-18-2023 Postop follow up vis it related to original px Lyudmila White [facility] Orthopedics Start: 09-18-2023 End: 09-18-2023 Patient encounter procedure DO Lolita Schwerer Work Phone: [facility] C[facility]-X[facility] [place] [facility] Start: 09-18-2023 End: 09-18-2023 ambulatory DO Lolita E Schwerer Work Phone: [facility] Ctr Work Phone: Start: 09-12-2023 End: 09-12-2023 ambulatory Lolita Schwerer Other [employer] Other Start: 09-12-2023 Telephone encounter Lolita Schwerer [facility] Start: 09-08-2023 End: 09-11-2023 Evaluation and management of inpatient DO Lolita Schwerer Work Phone: [facility] Ctr-[facility] [place] [facility] Work Phone: Start: 08-21-2023 Office outpatient vi sit 15 minutes Lyudmila White [facility] Orthopedics Start: 08-21-2023 End: 08-21-2023 Patient encounter procedure DO Lolita Schwerer Work Phone: [facility] [place] [facility] Start: 08-21-2023 End: 08-21-2023 ambulatory DO Lolita E Schwerer Work Phone: [facility] Work Phone: Start: 07-31-2023 Postop follow up vis it related to original px Prieto Santo [facility] Orthopedics Start: 07-31-2023 End: 07-31-2023 Patient encounter procedure DO Lolita Schwerer Work Phone: [facility] [place] [facility] Start: 07-31-2023 End: 07-31-2023 ambulatory DO Lolita E Schwerer Work Phone: [facility] Work Phone: Start: 07-24-2023 End: 07-24-2023 ambulatory Prieto Santo Other [employer] Other Start: 07-24-2023 [facility] visit new patient Prieto Santo [facility] Orthopedics Start: 07-23-2023 End: 07-23-2023 ambulatory Lolita Schwerer Other [employer] Other Start: 07-23-2023 Telephone encounter Lolita Schwerer [facility] [place] Start: 07-22-2023 End: 07-22-2023 Emergency department patient visit DO Lolita Schwerer Work Phone: [facility]-Emergency Room Work Phone: Start: 06-18-2023 End: 06-18-2023 ambulatory Beth Lowe Other [employer] Other Start: 06-18-2023 Office outpatient vi sit 15 minutes Beth Lowe [facility] Start: 06-02-2023 End: 06-02-2023 ambulatory Lolita Schwerer Other [facility] [employer] Other Start: 06-02-2023 Office outpatient vi sit 15 minutes Lolita Schwerer [facility] Start: 05-16-2023 End: 05-16-2023 Patient encounter procedure DO Lolita Schwerer Work Phone: [facility] C[facility]-Lab [facility] [place] Work Phone: Start: 05-16-2023 End: 05-16-2023 ambulatory DO Lolita E Schwerer Work Phone: [facility] Work Phone: Start: 05-06-2023 Office outpatient vi sit 15 minutes Beth [facility] Start: 05-06-2023 End: 05-06-2023 Patient encounter procedure DO Lolita Schwerer Work Phone: [facility] Ctr-XRay [facility] [place] Work Phone: Start: 05-06-2023 End: 05-06-2023 ambulatory Lolita E Schwerer [facility] [employer] Other Start: 04-30-2023 End: 04-30-2023 Patient encounter procedure DO Lolita Schwerer Work Phone: [facility] [place] Work Phone: Start: 04-30-2023 End: 04-30-2023 ambulatory DO Lolita E Schwerer Work Phone: [facility] Ctr Work Phone: Start: 04-22-2023 Office outpatient vi sit 25 minutes Lolita E Schwerer Work Phone: [facility] 250 DO Work Phone: Start: 04-22-[address] Gabriela Florian Facility: Start: 04-15-2023 Patient encounter procedure Lolita E Schwerer Work Phone: [facility] 600 DO Work Phone: Start: 04-15-2023 Chart Update Lolita E Schw erer Work Phone: [facility] 600 DO Work Phone: Start: 04-15-2023 End: 04-15-2023 Patient encounter procedure DO Lolita Schwerer Work Phone: [facility] Ctr-Lab [facility] [place] Work Phone: Start: 04-15-2023 End: 04-15-2023 ambulatory DO Lolita E Schwerer Work Phone: [facility] Ctr Work Phone: Start: 02-17-2023 Rx Renewal [facility] E [facility] Work Phone: Start: 01-01-2023 End: 01-01-2023 ambulatory Lolita Schwerer Other [facility] [employer] Other Start: 01-01-2023 Telephone encounter Lolita Schwerer [facility] Start: 12-25-2022 End: 12-25-2022 ambulatory Beth Lowe Other [facility] [employer] Other Start: 12-25-2022 Postop follow up vis it related to original px Beth Lowe [facility] Start: 11-25-2022 End: 11-25-2022 ambulatory Lolita Schwerer Other [facility] [employer] Other Start: 11-25-2022 Office outpatient vi sit [address] [facility] Start: 10-17-2022 End: 10-17-2022 ambulatory Beth Lowe Other [facility] [employer] Other Start: 10-17-2022 Postop follow up vis it related to original px Beth Lowe [facility] Neuro[facility] Start: 10-16-2022 Office outpatient vi sit 25 minutes Lolita E Schwerer Work Phone: -[facility] 250 DO Work Phone: Start: 10-16-[address] Gabriela Florian Facility: Start: 10-02-2022 End: 10-06-2022 Admission to same day surgery center DO Lolita Schwerer Work Phone: [facility] Ctr-Surgery Center [facility] [place] Start: 10-02-2022 End: 10-06-2022 ambulatory DO Lolita E Schwerer Work Phone: [facility] Ctr Work Phone: Start: 10-01-2022 End: 10-01-2022 ambulatory DO Lolita E Schwerer Work Phone: [facility] Ctr Work Phone: Start: 10-01-2022 End: 10-01-2022 Patient encounter procedure DO Lolita Schwerer Work Phone: [facility] Work Phone: Start: 09-18-2022 End: 09-18-2022 ambulatory DO Lolita E Schwerer Work Phone: [facility] Work Phone: Start: 09-18-2022 End: 09-18-2022 Patient encounter procedure DO Lolita Schwerer Work Phone: [facility] Tgc-Izd-Yrtpcqen Testing Start: 08-19-2022 End: 08-19-2022 ambulatory Lolita Schwerer Other [employer] Other Start: 08-19-2022 Office outpatient vi sit 25 [address] [facility] Start: 08-15-2022 End: 08-15-2022 ambulatory Clemente Miller Other [employer] Other Start: 08-15-2022 Office outpatient vi sit 40 minutes Clemente Miller [facility] Start: 07-15-2022 End: 07-15-2022 ambulatory Lolita Schwerer Other [employer] Other Start: 07-15-2022 Telephone encounter Lolita Vaughnerer [facility] Start: 07-14-2022 End: 07-14-2022 Emergency department patient visit DO Lolita Schwerer Work Phone: [facility]-Emergency Room Start: 07-08-2022 End: 07-08-2022 ambulatory DO Lolita E Schwerer Work Phone: [facility] Work Phone: Start: 07-08-2022 End: 07-08-2022 Discharged Recurring DO Lolita Schwerer Work Phone: [facility]-Physical Therapy [address] Start: 07-08-2022 Registered Recurring DO Kaitli n Schwerer Work Phone: [facility]-Physical Therapy [address] Start: 06-21-2022 End: 06-21-2022 ambulatory Clemente Miller Other [employer] Other Start: 06-21-2022 Telephone encounter Clemente Miller [facility] [employer] Start: 06-20-2022 End: 06-20-2022 ambulatory Clemente Miller Other [employer] Other Start: 06-20-2022 Office outpatient ne w 45 minutes Clemente Miller [facility] Start: 06-03-2022 End: 06-03-2022 ambulatory Lolita Schwerer Other [facility] [employer] Other Start: 06-03-2022 Telephone encounter Lolita Schwerer [facility] Start: 05-29-2022 End: 05-29-2022 Patient encounter procedure DO Lolita Schwerer Work Phone: [facility]-MRI [address] Start: 05-15-2022 End: 05-15-2022 Patient encounter procedure DO Lolita Schwerer Work Phone: [facility]-X-Ray [facility] Start: 05-14-2022 End: 05-14-2022 ambulatory Lolita Schwerer Other [facility] [employer] Other Start: 05-14-2022 Office outpatient vi sit [address] [facility] Start: 04-25-2022 End: 04-25-2022 ambulatory Lolita Schwerer Other [facility] [employer] Other Start: 04-25-2022 Telephone encounter Lolita Schwerer [facility] Start: 03-28-2022 Office outpatient vi sit 25 minutes Lolita E Schwerer Work Phone: [facility] [address] DO Work Phone: Start: 02-11-2022 End: 02-11-2022 ambulatory Lolita Schwerer Other [employer] Other Start: 02-11-2022 Office outpatient vi sit [address] [facility] Start: 11-26-2021 End: 11-26-2021 ambulatory Lolita Schwerer Other [employer] Other Start: 11-26-2021 Telephone encounter Lolita Schwerer [facility] [place] Start: 11-13-2021 End: 11-13-2021 ambulatory Lolita Schwerer Other [employer] Other Start: 11-13-2021 Office outpatient vi sit 25 minutes Lolita Schwerer [facility] [place] Start: 11-13-2021 Telephone encounter Lolita Schwerer [facility] [place] Start: 11-02-2021 End: 11-02-2021 ambulatory Lolita Schwerer Other [employer] Other Start: 11-02-2021 Telephone encounter Lolita Schwerer [facility] [place] Start: 11-01-2021 End: 11-01-2021 ambulatory Lolita Schwerer Other [employer] Other Start: 11-01-2021 Telephone encounter Lolita Schwerer [facility] [place] Start: 10-31-2021 End: 10-31-2021 ambulatory Yohannes Granda Other [employer] Other Start: 10-31-2021 Patient encounter procedure Yohannes Granda [facility] G[facility] Start: 10-31-2021 Telephone encounter Lolita Schwerer [facility] [place] Start: 09-19-2021 Office outpatient vi sit 25 minutes Lolita E Schwerer Work Phone: [facility] [address] DO Work Phone: Start: 09-10-2021 Rx Renewal August Fontanez her Work Phone: [facility] [address] [place] Work Phone: Start: 08-28-2021 End: 08-28-2021 ambulatory Yohannes Granda Other [employer] Other Start: 08-28-2021 Telephone encounter Yohannes PENN [facility] [employer] Start: 08-09-2021 End: 08-09-2021 ambulatory Lolita Schwerer Other [facility] [employer] Other Start: 08-09-2021 Office outpatient vi sit [address] [facility] Start: 08-09-2021 Telephone encounter Lolita Aragonr [facility] Start: 09-18-2017 Ambulatory BHARATHI COLMENARES Facility :[id number] Procedures Date Procedure Procedure Detail Performing Clinician Start: 10-16-2023 Alanine aminotransferase [Enzymatic activity/volume] in Serum or Plasma GABRIELA FLORIAN Start: 10-16-2023 Aspartate aminotransferase [Enzymatic activity/volume] in Serum or Plasma GABRIELA FLORIAN Start: 10-16-2023 Lipid panel OCHOAJESSE FLORIAN Start: 09-18-2023 Plain X-ray of right hand DO Lolita Schwerer Work Phone: Start: 09-09-2023 Esophagogastroduodenoscopy DO Lolita Schwerer Work Phone: Start: 09-08-2023 Computed tomography angiography of abdominal and/or pelvic blood vessel DO Lolita Schwerer Work Phone: Start: 08-21-2023 Plain X-ray of right hand DO Lolita Schwerer Work Phone: Start: 07-31-2023 Plain X-ray of right hand DO Lolita Schwerer Work Phone: Start: 07-22-2023 Plain X-ray of right hand DO Lolita Schwerer Work Phone: Start: 07-22-2023 X-ray of right knee DO Lolita Schwerer Work Phone: Start: 05-06-2023 X-ray of lumbar spine, six views including bending views DO Lolita Schwerer Work Phone: Start: 10-02-2022 OR Lumbar Laminectomy w/Fix Implants (Not Applicable) DO Lolita Schwerer Work Phone: Start: 10-02-2022 X-ray of lumbar spine, two or three views DO Lolita Vaughnerer Work Phone: Start: 10-01-2022 SARS Antigen (LFIA) DO Lolita Schwerer Work Phone: Start: 05-29-2022 MR lumbar spine wo con DO Lolita Schwerer Work Phone: Start: 05-15-2022 X-ray of lumbar spine, six views including bending views DO Lolita Mendeserer Work Phone: Cardiac catheterization Joseph Dumont Work Phone: Cataract surgery August holedr Work Phone: Colonic polypectomy August Dumont Work Phone: Operative procedure on spinal structure August Dumont Work Phone: Percutaneous translu chago coronary angioplasty August Dumont Work Phone: Procedure on back Lolita E Kyree Work Phone: Surgical procedure on thorax August Dumont Work Phone: Total colonoscopy August brown Work Phone: Comment on above: Oct 2018 Dr Joao Coley; Plan of Treatment Date Care Activity Detail Author Start: 02-28-2033 DTaP/Tdap/Td Vaccines (2 - Td or Tdap) DTaP/Tdap/Td Vaccines (2 - Td or Tdap) [facility] Start: 04-29-2024 End: 04-29-2024 Patient encounter procedure 04/29/2024 9:10 AM EDT Office Visit [facility] [address] [facility] [address] [place] [address] Gabriela Florian MD [address] [facility] [address] [place] [address] [facility] Start: 10-16-2023 End: 10-16-2024 Alanine aminotransferase [Enzymatic activity/volume] in Serum or Plasma by With P-5'-P Alanine Aminotransferase Lab Routine 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of eek coronary artery of eek heart without angina pectoris Mixed hyperlipidemia Expected: 10/16/2023 (Approximate), Expires: 10/16/2024 [facility] Work Phone: Comment on above: Expected: 10/16/2023 (Approximate), Expi res: 10/16/2024 Start: 10-16-2023 End: 10-16-2024 Aspartate aminotransferase [Enzymatic activity/volume] in Serum or Plasma by With P-5'-P Aspartate Aminotransferase Lab Routine 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of eek coronary artery of eek heart without angina pectoris Mixed hyperlipidemia Expected: 10/16/2023 (Approximate), Expires: 10/16/2024 [facility] Work Phone: Comment on above: Expected: 10/16/2023 (Approximate), Expi res: 10/16/2024 Start: 10-16-2023 End: 10-16-2024 Lipid 1996 panel - Serum or Plasma Lipid Panel Lab Routine 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of eek coronary artery of eek heart without angina pectoris Mixed hyperlipidemia Expected: 10/16/2023 (Approximate), Expires: 10/16/2024 [facility] Service Area Work Phone: Comment on above: Expected: 10/16/2023 (Approximate), Expi res: 10/16/2024 Start: 10-16-2023 FUV, Provider: Gabriela Florian, Status: Pen, Time: 9:10 AM FUV, Provider: Gabriela Florian, Status: Pen, Time: 9:10 AM -[facility] [address] DO Work Phone: Start: 09-11-2023 [facility] Start: 09-09-2023 [facility] Start: 09-09-2023 Referral to hearing aid dispenser [facility] Start: 09-08-2023 Referral to producer [facility] Start: 09-08-2023 Excision of Duodenum, Via Natural or Artificial Opening Endoscopic, Diagnostic Excision of Duodenum, Via Natural or Artificial Opening Endoscopic, Diagnostic [facility] Start: 09-08-2023 Excision of Stomach, Pylorus, Via Natural or Artificial Opening Endoscopic, Diagnostic Excision of Stomach, Pylorus, Via Natural or Artificial Opening Endoscopic, Diagnostic [facility] Start: 09-08-2023 Consultation [facility] Start: 09-08-2023 Hospital admission [facility] Start: 09-03-2023 COVID-19 Vaccine (4 - Moderna series) COVID-19 Vaccine (4 - Moderna series) [facility] Start: 04-22-2023 FUV, Provider: Gabriela Florian, Status: Pen, Time: 9:20 AM FUV, Provider: Gabriela Florian, Status: Pen, Time: 9:20 AM -[facility] 250 DO Work Phone: Start: 10-16-2022 FUV, Provider: Gabriela Florian, Status: Pen, Time: 10:20 AM FUV, Provider: Gabriela Florian, Status: Pen, Time: 10:20 AM -[facility] 250 DO Work Phone: Start: 10-06-2022 [facility] Start: 10-03-2022 Referral to clinical metal control coordinator [facility] Start: 03-28-2022 FUV, Provider: Gabriela Florian, Status: Pen, Time: 10:40 AM FUV, Provider: Gabriela Florian, Status: Pen, Time: 10:40 AM [facility] [address] DO Work Phone: Start: 09-19-2021 FUV, Provider: Gabriela Florian, Status: Pen, Time: 10:00 AM FUV, Provider: Gabriela Florian, Status: Pen, Time: 10:00 AM -[facility] [address] [place] Work Phone: Start: 2015 Abdominal aortic aneurysm screening Abdominal Aortic Aneurysm (AAA) Screening [facility] Start: 1969 Urine screening for protein Diabetes: Urine Protein Screening [facility] Start: 1968 Hepatitis C screening Hepatitis C Screening [facility] Start: 1960 Diabetic foot examination Diabetes: Foot Exam [facility] Start: 1960 Glaucoma screening Diabetes: Retinopathy Screening [facility] Start: 1950 Hemoglobin A1c measurement Diabetes: Hemoglobin A1C [facility] Start: 1950 Lipid panel Lipid Panel [facility] Start: 1950 Medicare Annual Wellness Visit Medicare Annual Wellness Visit (AWV) [facility] Start: 1950 Screening for malignant neoplasm of colon [facility] 24 hour urine measurement Fi [facility] Blood chemistry [facility] Elastase.pancreatic [Mass/mass] in Stool [facility] Electrophoresis: [id number] [facility] Electrophoresis: [id number] [facility] Electrophoresis: beta-globulin [facility] Immunofixation for Urine Fir [facility] Measurement of monoc lonal protein concentration [facility] Patient Education [facility] Work Phone: Patient referral [facility] Work Phone: Protein [Mass/volume ] in Urine [facility] Renal function 2000 panel - Serum or Plasma [facility] Immunizations Immunization Date Immunization Notes Care Provider Fa cility 07-09-2023 COVID-19 Moderna (SPIKEVAX) Lolita Schwerer Other [facility] 05-21-2023 Fluzone QIV High-Dos e 65YR+ [facility] 02-28-2023 Prevnar 20 0.5 ML Intramuscular Suspension Prefilled Syringe Lolita E Schwerer Work Phone: [facility] 02-28-2023 tetanus toxoid, redu michel diphtheria toxoid, and acellular pertussis vaccine, adsorbed Lolita E Schwerer Work Phone: [facility] 07-16-2022 COVID-19 Moderna (BIvalent) Clemente Miller Other [facility] 06-26-2022 Fluzone High-Dose Quadrivalent 0.7 ML Intramuscular Suspension Prefilled Syringe Lolita E Schwerer Work Phone: [facility] 250 DO Work Phone: 06-26-2022 influenza, seasonal, injectable Lolita Schwerer Other [facility] [employer] Other 09-13-2021 Moderna COVID-19 Vaccine 100 MCG/0.5ML Intramuscular Suspension Lolita E Schwerer Work Phone: [facility] 06-18-2021 influenza, seasonal, injectable Lolita Schwerer Other [facility] 06-08-2021 Fluad Quadrivalent 0 .5 ML Intramuscular Prefilled Syringe Lolita E Schwerer Work Phone: [facility] 250 DO Work Phone: 01-24-2021 COVID-19 Vaccine Moderna - Documentation Purposes Only Lolita Schwerer Other [facility] 12-27-2020 COVID-19 Vaccine Moderna - Documentation Purposes Only Lolita Schwerer Other [facility] 08-19-2020 zoster vaccine recombinant Lolita Schwerer Other [facility] 06-27-2020 influenza, seasonal, injectable Lolita E Schwerer Work Phone: [facility] 250 DO Work Phone: 06-14-2020 Fluzone High-Dose Quadrivalent 0.7 ML Intramuscular Suspension Prefilled Syringe Lolita E Schwerer Work Phone: [facility] 250 DO Work Phone: 06-14-2020 zoster vaccine recombinant Lolita Schwerer Other [facility] 07-06-2019 influenza virus vaccine, unspecified formulation Lolita E Schwerer Work Phone: [facility] 250 DO Work Phone: 06-21-2019 pneumococcal conjuga te vaccine, 13 valent Lolita Schwerer Other [facility] 06-14-2019 influenza, high dose seasonal, preservative-free Lolita E Schwerer Work Phone: [facility] 250 DO Work Phone: 06-19-2018 influenza virus vaccine, unspecified formulation Lolita E Schwerer Work Phone: [facility] 250 DO Work Phone: 06-19-2018 influenza, high dose seasonal, preservative-free Lolita E Schwerer Work Phone: [facility] 250 DO Work Phone: 08-05-2017 zoster vaccine, live Lolita Schwerer Other [facility] 07-06-2017 influenza, high dose seasonal, preservative-free Lolita E Schwerer Work Phone: [facility] 250 DO Work Phone: 07-06-2017 pneumococcal polysaccharide vaccine, 23 valent Lolita E Schwerer Work Phone: [facility] 250 DO Work Phone: 07-06-2017 zoster vaccine, live Lolita E Schwerer Work Phone: [facility] 250 DO Work Phone: 05-14-2017 influenza, high dose seasonal, preservative-free Lolita E Schwerer Work Phone: [facility] 250 DO Work Phone: 06-22-2016 pneumococcal polysaccharide vaccine, 23 valent Lolita Adorno Other [facility] 05-23-2016 influenza, high dose seasonal, preservative-free Lolita Mendeserer Work Phone: [facility] 250 DO Work Phone: influenza virus vaccine, unspecified formulation Lolita Travis Schwerer Work Phone: -[facility] 250 DO Work Phone: Comment on above: 2010 2008 Payers Date Payer Category Payer Medicare [id number] 2023 Self-pay [id number] 2023 Medicare HUMANA MEDICARE HUMANA GOLD CHOICE [id number] 2023-Present [address] [address] [place] [address] [id number] 2022 Medicare [id number] 2. [id number] 2022 Medicare [id number] 1950 Unknown [id number] 1950 Unknown [id number] 1950 Unknown [id number] Medicare [id number] Unknown Unknown [id number] Unknown [id number] Unknown [id number] [id number] Unknown [id number] [id number] Unknown [id number] [id number] Unknown [id number] [id number] Unknown [id number] [id number] Unknown [id number] [id number] Unknown [id number] [id number] Unknown [id number] [id number] Unknown [id number] Unknown [id number] Social History Date Type Detail Facility Start: 09-24-2023 No illicit drug use No illicit drug use [facility] [employer] Other Comment on above: 2 cups of coffee philippe ly; 1-2 packs weekly; 1 pack every 2 weeks ; Start: 11-06-1986 Sex Assigned At N [facility] [employer] Other Start: 07-14-2022 End: 03-22-2024 Tobacco smoking status KYIS Smoker (finding) [facility] Start: 1950 Sex Assigned At Male F [facility] Start: 09-24-2023 Tobacco smoking status [facility] Smokes tobacco daily [facility] Work Phone: History of tobacco use Cigarette Smoker [facility] Work Phone: Start: 09-24-2023 Tobacco use and exposure Smokeless tobacco non-user [facility] Work Phone: Start: 10-16-2023 Alcohol intake Lifetime non-d perla (finding) [facility] Work Phone: Start: 1950 Sex Assigned At Not on file [facility] Work Phone: Start: 10-06-2023 End: 10-16-2023 Exposure to SARS-CoV-2 (event) Not sure [facility] Start: 11-06-2023 Tobacco smoking status NHIS Ex-smoker (finding) [facility] Medical Equipment Procedure Code Equipment Code Equipment Origin al Text Equipment Identifier Dates CL STENT PROMUS REGAN 4.0 X 16 FDA Start: 08-24-2017 CL STENT XIENCE ALP 4.0 X 08 FDA Start: 08-24-2017 CL STENT PROMUS REGAN 4.0 X 16 FDA Start: 08-24-2017 CL STENT XIENCE ALP 4.0 X 08 FDA Start: 08-24-2017 CL STENT PROMUS REGAN 4.0 X 16 FDA Start: 08-24-2017 CL STENT XIENCE ALP 4.0 X 08 FDA Start: 08-24-2017 CL STENT PROMUS REGAN 4.0 X 16 FDA Start: 08-24-2017 CL STENT XIENCE ALP 4.0 X 08 FDA Start: 08-24-2017 CL STENT PROMUS REGAN 4.0 X 16 FDA Start: 08-24-2017 CL STENT XIENCE ALP 4.0 X 08 FDA Start: 08-24-2017 CANCELLOUS 15CC CRUSHED FDA Start: 10-02-2022 Bone-screw inter nal spinal fixation system, non-sterile [id number] FDA Start: 10-02-2022 Bone-screw inter nal spinal fixation system, non-sterile [id number] FDA Start: 10-02-2022 Spinal fusion gr aft kit [id number] FDA Start: 10-02-2022 Polymeric spinal fusion cage, sterile [id number] FDA Start: 10-02-2022 Bone-screw inter nal spinal fixation system, non-sterile [id number] FDA Start: 10-02-2022 CL STENT PROMUS REGAN 4.0 X 16 FDA Start: 08-24-2017 CL STENT XIENCE ALP 4.0 X 08 FDA Start: 08-24-2017 CANCELLOUS 15CC CRUSHED FDA Start: 10-02-2022 CL STENT PROMUS REGAN 4.0 X 16 FDA Start: 08-24-2017 CL STENT XIENCE ALP 4.0 X 08 FDA Start: 08-24-2017 CANCELLOUS 15CC CRUSHED FDA Start: 10-02-2022 Start: 11-17-2023 CL STENT PROMUS REGAN 4.0 X 16 FDA Start: 08-24-2017 CL STENT XIENCE ALP 4.0 X 08 FDA Start: 08-24-2017 CANCELLOUS 15CC CRUSHED FDA Start: 10-02-2022 CL STENT PROMUS REGAN 4.0 X 16 FDA Start: 08-24-2017 CL STENT XIENCE ALP 4.0 X 08 FDA Start: 08-24-2017 CANCELLOUS 15CC CRUSHED FDA Start: 10-02-2022 CL STENT PROMUS REGAN 4.0 X 16 FDA Start: 08-24-2017 CL STENT XIENCE ALP 4.0 X 08 FDA Start: 08-24-2017 CANCELLOUS 15CC CRUSHED FDA Start: 10-02-2022 CL STENT PROMUS REGAN 4.0 X 16 FDA Start: 08-24-2017 CL STENT XIENCE ALP 4.0 X 08 FDA Start: 08-24-2017 CANCELLOUS 15CC CRUSHED FDA Start: 10-02-2022 CL STENT PROMUS REGAN 4.0 X 16 FDA Start: 08-24-2017 CL STENT XIENCE ALP 4.0 X 08 FDA Start: 08-24-2017 CANCELLOUS 15CC CRUSHED FDA Start: 10-02-2022 CL STENT PROMUS REGAN 4.0 X 16 FDA Start: 08-24-2017 CL STENT XIENCE ALP 4.0 X 08 FDA Start: 08-24-2017 CANCELLOUS 15CC CRUSHED FDA Start: 10-02-2022 CL STENT PROMUS REGAN 4.0 X 16 FDA Start: 08-24-2017 CL STENT XIENCE ALP 4.0 X 08 FDA Start: 08-24-2017 CANCELLOUS 15CC CRUSHED FDA Start: 10-02-2022 CL STENT PROMUS REGAN 4.0 X 16 FDA Start: 08-24-2017 CL STENT XIENCE ALP 4.0 X 08 FDA Start: 08-24-2017 CANCELLOUS 15CC CRUSHED FDA Start: 10-02-2022 CL STENT PROMUS REGAN 4.0 X 16 FDA Start: 08-24-2017 CL STENT XIENCE ALP 4.0 X 08 FDA Start: 08-24-2017 CANCELLOUS 15CC CRUSHED FDA Start: 10-02-2022 CL STENT PROMUS REGAN 4.0 X 16 FDA Start: 08-24-2017 CL STENT XIENCE ALP 4.0 X 08 FDA Start: 08-24-2017 CANCELLOUS 15CC CRUSHED FDA Start: 10-02-2022 CL STENT PROMUS REGAN 4.0 X 16 FDA Start: 08-24-2017 CL STENT XIENCE ALP 4.0 X 08 FDA Start: 08-24-2017 CANCELLOUS 15CC CRUSHED FDA Start: 10-02-2022 CL STENT PROMUS REGAN 4.0 X 16 FDA Start: 08-24-2017 CL STENT XIENCE ALP 4.0 X 08 FDA Start: 08-24-2017 CANCELLOUS 15CC CRUSHED FDA Start: 10-02-2022 CL STENT PROMUS REGAN 4.0 X 16 FDA Start: 08-24-2017 CL STENT XIENCE ALP 4.0 X 08 FDA Start: 08-24-2017 CANCELLOUS 15CC CRUSHED FDA Start: 10-02-2022 Goals Date Patient Goal Desired Activity /State Functional Status Date Assessment Result Facility 09-11-2023 Functional status Patient at Baseline [facility] Work Phone: 10-06-2022 Functional status 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 [facility] Work Phone: Mental Status Date Assessment Result Facility 09-11-2023 Cognitive function Cognitive Sta tus Patient at Baseline [facility] Work Phone: 10-06-2022 Cognitive function Cognitive Sta tus Patient at Baseline [facility] Work Phone: Clinical Notes 08-09-2021 to 10-30-2023 Note Date & Type Note Facility 10-30-2023 Evaluation note Encounter Date Diagnosis Assessment Notes Oct, Chronic kidney disease, stage III (moderate) (ICD-10 - N18.30) He has a CKD due to longstanding DM and HTN baseline serum creatinine 1.7 to 1.8 mg/dL. CAT scan showed unremarkable kidneys. I discussed with him the importance of good HTN and DM control to slow down the progression of CKD. Advised him to avoid NSAIDs Oct, Diabetes mellitus with chronic kidney disease (ICD-10 - E11.22) Advised to continue follow with PCP for better sugar control. He is currently not on TITI or ARB due to recent MEAGHAN. 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 He appears to be euvolemic. Continue current hypertensive medications. Advised him to monitor blood pressure at home and call office if stays above 140 over 90 mmHg. Oct, Anemia of renal disease (ICD-10 - D63.1) Hemoglobin is within the goal. Will check iron studies. Oct, Secondary hyperparathyroidism (ICD-10 - N25.81) Calcium within normal limit. Will check PTH vitamin D. Oct, Proteinuria (ICD-10 - R80.9) He has a proteinuria likely due to diabetic kidney disease. He has a mildly elevated free light chain ratio likely due to the CKD but unremarkable SPEP, UPEP serum and urine immunofixation. Oct, Other This documentation is being amended on 11/03/23 due to an internal data corruption event that occurred on 10/30/23. This data corruption event was NOT the result of any breach, fraud, or malicious third libertarian actors and no personal patient information was compromised. [employer] Other 01-11-2024 History of Present illness Narrative* Gabriela Florian MD - 10/16/2023 9:10 AM EST Subjective Dave Lugo is a 73 y.o. male Chief Complaint Follow-up HPI Patient is in the office for follow-up for the problems noted below. In September 2023 I saw him in the hospital when he was admitted for intestinal problems and was severely hypertensive due to pain.There was no cardiac events during that admission. He did not require any surgery and he is presently back to his normal self and denies any symptoms of palpitations chest pain or dyspnea. He continue s to smoke but at a lower level and was encouraged to quit smoking altogether. Had recent lab data which I reviewed with him he is still in need for lipid profile which I ordered. Medical therapy will be left unchanged and his physical examination essentially unremarkable except for slight overweight. ASSESSMENT AND PLAN: 1. Coronary artery disease, stable. No cardiac investigations are needed continue aggressive risk factors modifications. 2. Status post bare metal stent in the right coronary artery in 2006 with repeat angioplasty of theRCA 2016. Nuclear stress test September 2020 revealed inferolateral infarction EF 52%, no ischemia, risk factors are under control. 3. Recent admission to the hospital for abdominal pain and severe hypertension which resolved spontaneously. 5. Hyperlipidemia, under excellent control, lipid profile is due and was ordered 6. Hypertension, under control. 7. Overweight, encouraged patient to cut back calorie intake and exercise on regular basis. 8. 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 No heart failure or LV systolic dysfunction. Secondary preventive measures are in place 9. Mild but active tobacco use, encouraged the patient to quit smoking completely 10. Chronic kidney disease due to diabetes. This is stable. He follows with nephrology 11. Mild anemia due to chronic kidney disease and currently inconsequential. 12. Slight LV systolic dysfunction, he is on vasodilators with hydralazine and nitrates. Avoided TITI inhibitors or ARB due to his kidney disease Review of Systems All other systems reviewed and are negative. Visit Vitals BP 102/60 (BP Location: Left arm, Patient Position: Sitting) Pulse 62 Ht 1.651 m (5' 5 ) Wt 73.9 kg (163 lb) BMI 27.12 kg/m Smoking Status Every Day BSA 1.84 m Objective Physical Exam Constitutional: Appearance: Normal appearance. He is normal weight. HENT: Nose: Nose normal. Neck: Vascular: No carotid bruit. Cardiovascular: Rate and Rhythm: Normal rate. Pulses: Normal pulses. Heart sounds: Normal heart sounds. Pulmonary: Effort: Pulmonary effort is normal. Abdominal: General: Bowel sounds are normal. Palpations: Abdomen is soft. Genitourinary: Rectum: Normal. Musculoskeletal: General: Normal range of motion. Cervical back: Normal range of motion. Right lower leg: No edema. Left lower leg: No edema. Skin: General: Skin is warm and dry. Neurological: General: No focal deficit present. Mental Status: He is alert. Psychiatric: Mood and Affect: Mood normal. Behavior: Behavior normal. Thought Content: Thought content normal. Judgment: Judgment normal. Current Medications Current Outpatient Medications: aspirin 81 mg EC tablet, Take 1 tablet (81 mg) by mouth once daily. as directed, Disp: , Rfl: cyanocobalamin (Vitamin B-12) 1,000 mcg tablet, Take 1 tablet (1,000 mcg) by mouth once daily., Disp: , Rfl: cyclobenzaprine (Flexeril) 10 mg tablet, Take 1 tablet (10 mg) by mouth as needed at bedtime., Disp: , Rfl: ferrous sulfate, 325 mg ferrous sulfate, tablet, Take 1 tablet by mouth once daily., Disp: , Rfl: Lantus Solostar U-100 Insulin 100 unit/mL (3 mL) pen, INJECT 10 UNITS SUBCUTANEOUSLY DAILY, Disp: ,Rfl: multivitamin (Daily Multi-Vitamin) tablet, Take 1 tablet by mouth once daily., Disp: , Rfl: atorvastatin (Lipitor) 20 mg tablet, Take 1 tablet (20 mg) by mouth once daily at bedtime., Disp: 90 tablet, Rfl: 3 carvedilol (Coreg) 25 mg tablet, Take 1 tablet (25 mg) by mouth 2 times a day with meals., Disp: 180 tablet, Rfl: 3 furosemide (Lasix) 40 mg tablet, Take 1 tablet (40 mg) by mouth once daily., Disp: 90 tablet, Rfl: 3 hydrALAZINE (Apresoline) 50 mg tablet, Take 1 tablet (50 mg) by mouth 2 times a day. Take with food., Disp: 180 tablet, Rfl: 3 isosorbide mononitrate ER (Imdur) 30 mg 24 hr tablet, Take 1 tablet (30 mg) by mouth once daily., Disp: 90 tablet, Rfl: 3 nitroglycerin (Nitrostat) 0.4 mg SL tablet, Place 1 tablet (0.4 mg) under the tongue every 5 minutes if needed for chest pain., Disp: 25 tablet, Rfl: 3 Assessment/Plan 1. 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of eek coronary artery of eek heart without angina pectoris Follow Up In Cardiology Lipid Panel Alanine Aminotransferase Aspartate Aminotransferase atorvastatin (Lipitor) 20 mg tablet carvedilol (Coreg) 25 mg tablet furosemide (Lasix) 40 mg tablet hydrALAZINE (Apresoline) 50 mg tablet isosorbide mononitrate ER (Imdur) 30 mg 24 hr tablet nitroglycerin (Nitrostat) 0.4 mg SL tablet Lipid Panel Alanine Aminotransferase Aspartate Aminotransferase 2. Essential hypertension furosemide (Lasix) 40 mg tablet hydrALAZINE (Apresoline) 50 mg tablet 3. History of ND (myocardial infarction) isosorbide mononitrate ER (Imdur) 30 mg 24 hr tablet nitroglycerin (Nitrostat) 0.4 mg SL tablet 4. Mixed hyperlipidemia Lipid Panel Alanine Aminotransferase Aspartate Aminotransferase Lipid Panel Alanine Aminotransferase Aspartate Aminotransferase 5. S/P PTCA (percutaneous transluminal coronary angioplasty) 6. Stage 3a chronic kidney disease ([facility]) 7. Current smoker on some days 8. Type 2 diabetes mellitus without complication, with long-term current use of insulin ([facility]) 9. Overweight with body mass index (BMI) of 27 to 27.9 in adult 10. Atherosclerotic heart disease of eek coronary artery without angina pectoris atorvastatin (Lipitor) 20 mg tablet Scribe Attestation By signing my name below, Magali Snyder LPN , Scribe attest that this documentation has been prepared under the direction and in the presence of Gabriela Florian MD. [facility] Work Phone: 1(238) 152-285601-11-2024 Instructions* Patient Instructions* Bryanna Avendano LPN - 10/16/2023 9:10 AM EST Please bring all medicines, vitamins, and herbal supplements with you when you come to the office. Prescriptions will not be filled unless you are compliant with your follow up appointments or have a follow up appointment scheduled as per instruction of your physician. Refills should be requested at the time of your visit. documented in this encounterF[facility] Work Phone: 1(962) 462-620112-21-2023 Evaluation note* Encounter Date Diagnosis Assessment Notes Treatment Notes Treatment Clinical Notes Sep, History of lumbar fusion (ICD-10 - Z98.1) Sep, Degenerative lumbar disc (ICD-10 - M51.36) Reviewed xray from 05/06/23 good bony alignment and harware placement. Discusion to continue with home exercise program. Follow up in 1 year with xray [facility] Other 12-19-2023 Evaluation note* Encounter Date Diagnosis Assessment Notes Treatment Notes Treatment Clinical Notes Sep, Type 2 diabetes mellitus with diabetic chronic kidney disease (ICD-10 - E11.22) His hospital discharge paperwork does state pancreatitis. Really see any evidence on imaging or labs were this is more evident. Nonetheless we will take him off the Januvia as result. We will replace this with Farxiga which I really do think is probably a better option anyways. He does know to watch his sugars closely when he first starts the Farxiga to make sure his sugars are not going too low. His A1c is up to 7.5 at this time. Sep, Hospital discharge follow-up (ICD-10 - Z09) Sep, Acute kidney failure, unspecified (ICD-10 - N17.9) We will update labs he does have a appointment with nephro in about a month. Sep, Chronic kidney disease, unspecified (ICD-10 - N18.9) Sep, Essential hypertension (ICD-10 - I10) Blood pressure is a little bit elevated today. He does see cardiology next month. I will give him a blood pressure cuff he will check it every day for a week and call us with those readings. He agrees with this plan today. Sep, Chronic gastritis without bleeding, unspecified gastritis type (ICD-10 - K29.50) encouraged him to continu until he sees GI. [facility] Other 12-14-2023 Evaluation note* Encounter Date Diagnosis Assessment Notes Treatment Notes Treatment Clinical Notes Sep, Sprain of other specified parts of right knee, subsequent encounter (ICD-10 - S83.8X1D) Patient is progressing well. Declines MRI at this time. Continue motion and strengthening exercises. Sep, Displaced fracture of neck of fifth metacarpal bone, right hand, subsequent encounter for fracture with routine healing (ICD-10 - S62.336D) Patient is progressing well, fracture healing. May progress activity as tolerated. Call with questions/concerns. Examination and assessment of this patient was performed by Lyudmila Medford, INFORMATION TECHNOLOGY OFFICER and patient will continue with the treatment plan per Dr. Santo, who initiated this treatment plan. Dr. Santo is present in the office today and providing supervision. [facility] Other 12-07-2023 Progress note Author Nette Holden [facility] September 11, 2023 11:30am Note Date/Time September 11, 2023 1 1:23am [facility] [address] [place] [address] Nephrology Progress Note Signed Patient: Dave Lugo MR#: [id number] : 1950 Acct:[id number] Age/Sex: 73 / M Adm Date: 3 Loc: Room: 8E5024-8 Type: ADM IN Attending Dr: Barbie Osborn MD Copies to: ~ Date of Service: 09/11/2023 Subjective Subjective Narrative: This is a 73-year-old male with a medical history of DM, CAD s/p PCI in 2017, CKD, HTN, dyslipidemia was presented to the emergency room for abdominal pain. Patient on evaluation emergency room was found to have a systolic blood pressurein 200s and was started clevidipine drip for hypertensive emergency. He was also noticed to have elevated serum creatinine 1.8 mg/dL. He had a CTA abdomen pelvis done to rule out dissection which was negative for any dissection or acute finding. Patient was seen by the GI for his abdominal pain and had a EGD today which showed patchy duodenitis. During hospital course his blood pressureimproved with the pain management and he was taken off his of the clevidipine drip and was resumed on home dose of antihypertensive medication. On review record it appears that patient has a known history of CKD with baseline serum creatinine 1.7 to 1.8 mg/dL he also has a subnephrotic range proteinuria but denies any evaluation by the nephrology in the past. He reported that he was following with his PCP for his CKD. He has a longstanding insulin-dependent type 2 diabetes mellitus currently takes insulin glargine. He reported to have a history of diabetic retinopathy and was treated with intraocular injection. Nephrology is consulted for CKD and proteinuria management. Interim history Patient seen and examined at bedside. He slept well last night and ate his breakfast this morning. He is feeling better denies any chest pain palpitation cough nausea vomit diarrhea and shortness of breath. Exam Physical Exam Vital Signs: Temp Pulse Resp BP Pulse Ox O2 Del Method 98.1 F 74 16 169/82 H 97 Room Air 09/11/23 08:00 09/11/23 08:00 09/11/23 08:00 09/11/23 08:00 09/11/23 08:00 09/11/23 08:00 Narrative: General: Appears comfortable and not in distress Heart: S1-S2, no rub Lung: Bilateral air entry, no wheezing or crackles Abdomen: Soft, positive bowel sounds Extremities: No edema, no cyanosis Head: Atraumatic, normocephalic Ear: No gross hearing Deficit or external ear redness Eyes: No pallor or redness Neck: No JVD or visible mass Skin: No rashes , warm to touch ALUMINUM SHEET CUTTER: Awake,Alert, following simple command Musculoskeletal: No joint swelling or limitation of movement Psychiatric: Cooperative, normal mood and affect Objective Intake and Output I&O: Intake & Output 09/08/23 09/09/23 09/10/23 09/11/23 23:59 23:59 23:59 23:59 Intake Total 300 / 300 480 / 480 1280 / 1280 250 / 250 Output Total 1200 / 1200 550 / 550 600 / 600 725 / 725 Balance -900 / -900 -70 / -70 680 / 680 -475 / -475 Weight 70.1 kg 69.8 kg 73.8 kg 74.5 kg Meds and Allergies Meds: Active Medications Aspirin (Aspirin 81 Mg Tab.Chew) 81 mg PO QAM [facility] Stop: 09/08/24 08:59 Last Admin: 09/11/23 08:34 Dose: 81 mg Atorvastatin Calcium (Atorvastatin 20 Mg Tablet) 20 mg PO QHS VANE Stop: 09/07/24 21:59 Last Admin: 09/10/23 21:16 Dose: 20 mg Carvedilol (Carvedilol 25 Mg Tablet) 25 mg PO BID.WITH.MEALS [facility] Stop: 09/07/24 16:59 Last Admin: 09/11/23 08:34 Dose: 25 mg Cyanocobalamin (Cyanocobalamin 1,000 Mcg Tablet) 1,000 mcg PO QAM [facility] Stop: 09/08/24 08:59 Last Admin: 09/11/23 08:33 Dose: 1,000 mcg Dextrose (Dextrose 50% In Water 25 Gm/50 Ml Syringe) 0 gm IV-PUSH PRN PRN PRN Reason: Hypoglycemia Stop: 09/07/24 13:52 Enoxaparin Sodium (Enoxaparin 30 Mg/0.3 Ml Syringe) 30 mg SUBCUT DAILY@1000 [facility] Stop: 09/08/24 09:59 Last Admin: 09/11/23 11:04 Dose: 30 mg Ferrous Sulfate (Ferrous Sulfate 324 Mg Tablet.) 324 mg PO QAM [facility] Stop: 09/08/24 08:59 Last Admin: 09/11/23 08:33 Dose: 324 mg Glucose (Dextrose 40% Gel 15 Gm Tube) 0 gm PO PRN PRN PRN Reason: Hypoglycemia Stop: 09/07/24 13:52 Hydralazine HCl (Hydralazine 50 Mg Tablet) 50 mg PO BID [facility] Stop: 09/07/24 15:14 Last Admin: 09/11/23 08:34 Dose: 50 mg Insulin Aspart (Insulin Aspart 300 Units/3 Ml Insuln.Pen) 0 units SUBCUT TID.WM.HS [facility]; Protocol Stop: 09/07/24 16:59 Last Admin: 09/11/23 08:31 Dose: Not Given Insulin Glargine (Insulin Glargine 300 Units/3 Ml Insuln.Pen) 8 units SUBCUT DAILY [facility] Stop: 09/08/24 08:59 Last Admin: 09/11/23 08:34 Dose: 8 units Isosorbide Mononitrate (Isosorbide Mononitrate 24hr Er 30 Mg Tab.Er.24h) 30 mg PO QAM [facility] Stop: 09/08/24 08:59 Last Admin: 09/11/23 08:34 Dose: 30 mg Morphine Sulfate (Morphine Sulfate 2 Mg/Ml Vial) 2 mg IV-PUSH Q3H PRN PRN Reason: Severe Pain Last Admin: 09/08/23 23:35 Dose: 2 mg Nitroglycerin (Nitroglycerin 0.4 Mg Tab.Subl) 0.4 mg SUBLINGUAL Q5M PRN PRN Reason: Chest Pain Stop: 09/07/24 15:10 Pantoprazole Sodium (Pantoprazole 40 Mg Tablet.) 40 mg PO BID [facility] Stop: 09/09/24 08:59 Last Admin: 09/11/23 08:33 Dose: 40 mg Sodium Chloride (Sodium Chloride 0.9 % 10 Ml Syringe) 0 ml IV-PUSH PRN PRN PRN Reason: Flush Stop: 09/07/24 06:23 Last Admin: 09/08/23 23:36 Dose: 10 ml Sodium Chloride (Sodium Chloride 0.9 % 10 Ml Syringe) 0 ml IV-PUSH PRN PRN PRN Reason: Flush Stop: 09/07/24 17:12 Sodium Chloride (Sodium Chloride 0.9 % 10 Ml Syringe) 0 ml IV-PUSH QSHIFT VANE Stop: 09/08/24 13:59 Last Admin: 09/11/23 06:20 Dose: 10 ml Allergies oxycodone [From Percocet] Allergy (Verified 09/08/23 06:25) Swelling of Lip/Tongue/Throat amlodipine Adverse Reaction (Verified 09/08/23 06:25) Edema aspirin Adverse Reaction (Verified 09/08/23 06:25) Swelling of Lip/Tongue/Throat Results Labs 09/11/23 04:23 09/11/23 04:23 Labs: 09/11/23 04:23 BUN 38 H Creatinine 2.18 H Radiology Impressions Impressions - last 24 hours: Any impression(s) listed above is documentation that was entered by the reading physician into a diagnostic report(s) for Dave Lugo. I have reviewed the report(s) and am incorporating any findings in the treatment plan of this patient where applicable. A&P - Nephrology Assessment/Plan (1) Acute kidney injury superimposed on CKD: Assessment/Problem Details: He has MEAGHAN on CKD likely due to the contrast-induced nephropathy. His renal function is improving. (2) Chronic kidney disease, stage III (moderate): Assessment/Problem Details: He has CKD due to the longstanding DM with HTN with baseline serum creatinine 1.7 to 1.8 mg/dL. His CAT scan shows no evidence of obstructive uropathy. (3) Hypertensive chronic kidney disease with stage 1 through stage 4 chronic kidney disease, or unspecified chronic kidney disease: Assessment/Problem Details: Patient presents with uncontrolled hypertension due to the abdominal pain. His blood pressure has improved with the pain control and home dose of antihypertensive medication. (4) Type 2 diabetes mellitus with diabetic chronic kidney disease: Assessment/Problem Details: He has insulin-dependent type 2 diabetes mellitus currently takes insulin glargine at home. (5) Anemia of renal disease: Assessment/Problem Details: Hemoglobin within the goal. He has a low iron stores but normal B12 folate level. (6) Proteinuria: Assessment/Problem Details: He has subnephrotic range proteinuria likely due to diabetic kidney disease. Hehas mildly elevated serum free light chain ratio likely due to CKD but unremarkable SPEP and serum immunofixation. (7) Abdominal pain: Assessment/Problem Details: Patient present with abdominal pain and was seen by the GI. He had a EGD which showed patchy duodenitis. Plan * Continue home dose of the carvedilol, Imdur and hydralazine. * Will follow UPEP and urine immunofixation. * Continue insulin adjust the dose as needed to keep the blood sugar between 100 to 150 mg/dL. * Continue to hold home dose of metformin due to MEAGHAN * Continue oral iron. * Monitor input output * Check renal function 3 days after discharge. * Outpatient follow-up in our office 4 to 6 weeks. Documented By: Nette Holden MD 09/11/23 1120 Signed By: <Electronically signed by Nette Holden MD> 09/11/23 1130 [facility] Work Phone: [phone]) 905-788312-07-2023 Progress note Author Joao Coley [facility] September 11, 2023 8:54am Note Date/Time September 11, 2023 8 :55am [facility] [address] [place] [address] Gastroenterology PN Signed Patient: Dave Lugo MR#: [id number] : 1950 Acct:[id number] Age/Sex: 73 / M Adm Date: 3 Loc: Room: [address] [place] [address] Type: ADM IN Attending Dr: Barbie Osborn MD Copies to: DO Joao Roca MD Mazhar Rahman, MD~ Date of Service: 09/11/2023 Subjective Subjective Narrative: Patient is feeling much better today. His abdominal pain is gone. He is eatingwell. CA 19-9 came back normal. Exam Physical Exam Vital Signs: Temp Pulse Resp BP Pulse Ox O2 Del Method 98.1 F 74 16 169/82 H 97 Room Air 09/11/23 08:00 09/11/23 08:00 09/11/23 08:00 09/11/23 08:00 09/11/23 08:00 09/11/23 08:00 Objective Allergies and Medications Allergies/Adverse Reactions: Allergies Allergy/AdvReac Type Severity Reaction Status Date / Time oxycodone [From Percocet] Allergy Swelling Verified 09/08/23 06:25 of Lip/Tongue/Throat amlodipine AdvReac Edema Verified 09/08/23 06:25 aspirin AdvReac Swelling Verified 09/08/23 06:25 of Lip/Tongue/Throat Active Meds: Active Medications Generic Name Dose Route Start Last Admin Trade Name Freq PRN Reason Stop Dose Admin Aspirin 81 mg 09/09/23 09:00 09/11/23 08:34 Aspirin 81 Mg Tab.Chew PO 09/08/24 08:59 81 mg QAM VANE Administration Atorvastatin Calcium 20 mg 09/08/23 22:00 09/10/23 21:16 Atorvastatin 20 Mg Tablet PO 09/07/24 21:59 20 mg QHS VANE Administration Carvedilol 25 mg 09/08/23 17:00 09/11/23 08:34 Carvedilol 25 Mg Tablet PO 09/07/24 16:59 25 mg BID.WITH.MEALS VANE Administration Cyanocobalamin 1,000 mcg 09/09/23 09:00 09/11/23 08:33 Cyanocobalamin 1,000 Mcg Tablet PO 09/08/24 08:59 1,000 mcg QAM VANE Administration Dextrose 0 gm 09/08/23 13:53 Dextrose 50% In Water 25 Gm/50 Ml Syringe IV-PUSH 09/07/24 13:52 PRN PRN Hypoglycemia Enoxaparin Sodium 30 mg 09/10/23 07:41 09/10/23 11:30 Enoxaparin 30 Mg/0.3 Ml Syringe SUBCUT 09/08/24 09:59 30 mg DAILY@1000 VANE Administration Ferrous Sulfate 324 mg 09/09/23 09:00 09/11/23 08:33 Ferrous Sulfate 324 Mg Tablet. PO 09/08/24 08:59 324 mg QAM VANE Administration Glucose 0 gm 09/08/23 13:53 Dextrose 40% Gel 15 Gm Tube PO 09/07/24 13:52 PRN PRN Hypoglycemia Hydralazine HCl 50 mg 09/08/23 15:15 09/11/23 08:34 Hydralazine 50 Mg Tablet PO 09/07/24 15:14 50 mg BID VANE Administration Insulin Aspart 0 units 09/08/23 17:00 09/11/23 08:31 Insulin Aspart 300 Units/3 Ml Insuln.Pen SUBCUT 09/07/24 16:59 Not Given TID.WM.HS [facility] Protocol Insulin Glargine 8 units 09/09/23 09:00 09/11/23 08:34 Insulin Glargine 300 Units/3 Ml Insuln.Pen SUBCUT 09/08/24 08:59 8 units DAILY VANE Administration Isosorbide Mononitrate 30 mg 09/09/23 09:00 09/11/23 08:34 Isosorbide Mononitrate 24hr Er 30 Mg Tab.Er.24h PO 09/08/24 08:59 30 mg QAM VANE Administration Morphine Sulfate 2 mg 09/08/23 13:53 09/08/23 23:35 Morphine Sulfate 2 Mg/Ml Vial IV-PUSH 2 mg Q3H PRN Administration Severe Pain Nitroglycerin 0.4 mg 09/08/23 15:11 Nitroglycerin 0.4 Mg Tab.Subl SUBLINGUAL 09/07/24 15:10 Q5M PRN Chest Pain Pantoprazole Sodium 40 mg 09/10/23 09:00 09/11/23 08:33 Pantoprazole 40 Mg Tablet.Dr PO 09/09/24 08:59 40 mg BID VANE Administration Sodium Chloride 0 ml 09/08/23 06:24 09/08/23 23:36 Sodium Chloride 0.9 % 10 Ml Syringe IV-PUSH 09/07/24 06:23 10 ml PRN PRN Administration Flush Sodium Chloride 0 ml 09/08/23 17:13 Sodium Chloride 0.9 % 10 Ml Syringe IV-PUSH 09/07/24 17:12 PRN PRN Flush Sodium Chloride 0 ml 09/09/23 14:00 09/11/23 06:20 Sodium Chloride 0.9 % 10 Ml Syringe IV-PUSH 09/08/24 13:59 10 ml QSHIFT VANE Administration A&P - Gastroenterology Assessment/Plan (1) Chronic pancreatitis: Plan: It is strongly suspected that patient had acute exacerbation of chronic pancreatitis. We are awaiting results of fecal elastase. Code(s): K86.1 - Other chronic pancreatitis Status: Acute Documented By: Joao Coley MD 09/11/23 0853 Signed By: <Electronically signed by MD Joao Coley> 09/11/23 0854 [facility] Work Phone: [phone]) 370-766912-06-2023 Progress note Author Nette Holden [facility] September 10, 2023 12:09pm Note Date/Time September 10, 2023 1 2:09pm [facility] [address] [place] [address] Nephrology Progress Note Signed Patient: Dave Lugo MR#: [id number] : 1950 Acct:[id number] Age/Sex: 73 / M Adm Date: 3 Loc: Room: 9Y7910-4 Type: ADM IN Attending Dr: Barbie Osborn MD Copies to: ~ Date of Service: 09/10/2023 Subjective Subjective Narrative: This is a 73-year-old male with a medical history of DM, CAD s/p PCI in 2017, CKD, HTN, dyslipidemia was presented to the emergency room for abdominal pain. Patient on evaluation emergency room was found to have a systolic blood pressurein 200s and was started clevidipine drip for hypertensive emergency. He was also noticed to have elevated serum creatinine 1.8 mg/dL. He had a CTA abdomen pelvis done to rule out dissection which was negative for any dissection or acute finding. Patient was seen by the GI for his abdominal pain and had a EGD today which showed patchy duodenitis. During hospital course his blood pressureimproved with the pain management and he was taken off his of the clevidipine drip and was resumed on home dose of antihypertensive medication. On review record it appears that patient has a known history of CKD with baseline serum creatinine 1.7 to 1.8 mg/dL he also has a subnephrotic range proteinuria but denies any evaluation by the nephrology in the past. He reported that he was following with his PCP for his CKD. He has a longstanding insulin-dependent type 2 diabetes mellitus currently takes insulin glargine. He reported to have a history of diabetic retinopathy and was treated with intraocular injection. Nephrology is consulted for CKD and proteinuria management. Interim history Patient seen and examined at bedside. He is feeling better denies any chest pain palpitation cough nausea vomit diarrhea and shortness of breath. Exam Physical Exam Vital Signs: Temp Pulse Resp BP Pulse Ox O2 Del Method 99.8 F H 80 18 137/79 96 Room Air 09/10/23 08:00 09/10/23 08:00 09/10/23 08:00 09/10/23 08:00 09/10/23 08:00 09/10/23 08:00 Narrative: General: Appears comfortable and not in distress Heart: S1-S2, no rub Lung: Bilateral air entry, no wheezing or crackles Abdomen: Soft, positive bowel sounds Extremities: No edema, no cyanosis Head: Atraumatic, normocephalic Ear: No gross hearing Deficit or external ear redness Eyes: No pallor or redness Neck: No JVD or visible mass Skin: No rashes , warm to touch ALUMINUM SHEET CUTTER: Awake,Alert, following simple command Musculoskeletal: No joint swelling or limitation of movement Psychiatric: Cooperative, normal mood and affect Objective Intake and Output I&O: Intake & Output 09/07/23 09/08/23 09/09/23 09/10/23 23:59 23:59 23:59 23:59 Intake Total 300 / 300 480 / 480 Output Total 1200 / 1200 550 / 550 600 / 600 Balance -900 / -900 -70 / -70 -600 / -600 Weight 70.1 kg 69.8 kg 73.8 kg Meds and Allergies Meds: Active Medications Aspirin (Aspirin 81 Mg Tab.Chew) 81 mg PO QAM VANE Stop: 09/08/24 08:59 Last Admin: 09/10/23 08:43 Dose: 81 mg Atorvastatin Calcium (Atorvastatin 20 Mg Tablet) 20 mg PO QHS VANE Stop: 09/07/24 21:59 Last Admin: 09/09/23 21:18 Dose: 20 mg Carvedilol (Carvedilol 25 Mg Tablet) 25 mg PO BID.WITH.MEALS VANE Stop: 09/07/24 16:59 Last Admin: 09/10/23 08:43 Dose: 25 mg Cyanocobalamin (Cyanocobalamin 1,000 Mcg Tablet) 1,000 mcg PO QAM VANE Stop: 09/08/24 08:59 Last Admin: 09/10/23 08:43 Dose: 1,000 mcg Dextrose (Dextrose 50% In Water 25 Gm/50 Ml Syringe) 0 gm IV-PUSH PRN PRN PRN Reason: Hypoglycemia Stop: 09/07/24 13:52 Enoxaparin Sodium (Enoxaparin 30 Mg/0.3 Ml Syringe) 30 mg SUBCUT DAILY@1000 [facility] Stop: 09/08/24 09:59 Last Admin: 09/10/23 11:30 Dose: 30 mg Ferrous Sulfate (Ferrous Sulfate 324 Mg Tablet.) 324 mg PO QAM [facility] Stop: 09/08/24 08:59 Last Admin: 09/10/23 08:43 Dose: 324 mg Glucose (Dextrose 40% Gel 15 Gm Tube) 0 gm PO PRN PRN PRN Reason: Hypoglycemia Stop: 09/07/24 13:52 Hydralazine HCl (Hydralazine 50 Mg Tablet) 50 mg PO BID [facility] Stop: 09/07/24 15:14 Last Admin: 09/10/23 08:43 Dose: 50 mg Insulin Aspart (Insulin Aspart 300 Units/3 Ml Insuln.Pen) 0 units SUBCUT TID.WM.[facility]; Protocol Stop: 09/07/24 16:59 Last Admin: 09/10/23 11:27 Dose: 3 units Insulin Glargine (Insulin Glargine 300 Units/3 Ml Insuln.Pen) 8 units SUBCUT DAILY [facility] Stop: 09/08/24 08:59 Last Admin: 09/10/23 08:43 Dose: 8 units Isosorbide Mononitrate (Isosorbide Mononitrate 24hr Er 30 Mg Tab.Er.24h) 30 mg PO QAM [facility] Stop: 09/08/24 08:59 Last Admin: 09/10/23 08:43 Dose: 30 mg Morphine Sulfate (Morphine Sulfate 2 Mg/Ml Vial) 2 mg IV-PUSH Q3H PRN PRN Reason: Severe Pain Last Admin: 09/08/23 23:35 Dose: 2 mg Nitroglycerin (Nitroglycerin 0.4 Mg Tab.Subl) 0.4 mg SUBLINGUAL Q5M PRN PRN Reason: Chest Pain Stop: 09/07/24 15:10 Pantoprazole Sodium (Pantoprazole 40 Mg Tablet.) 40 mg PO BID [facility] Stop: 09/09/24 08:59 Last Admin: 09/10/23 08:43 Dose: 40 mg Sodium Chloride (Sodium Chloride 0.9 % 10 Ml Syringe) 0 ml IV-PUSH PRN PRN PRN Reason: Flush Stop: 09/07/24 06:23 Last Admin: 09/08/23 23:36 Dose: 10 ml Sodium Chloride (Sodium Chloride 0.9 % 10 Ml Syringe) 0 ml IV-PUSH PRN PRN PRN Reason: Flush Stop: 09/07/24 17:12 Sodium Chloride (Sodium Chloride 0.9 % 10 Ml Syringe) 0 ml IV-PUSH QSHIFT VANE Stop: 09/08/24 13:59 Last Admin: 09/10/23 08:43 Dose: 10 ml Allergies oxycodone [From Percocet] Allergy (Verified 09/08/23 06:25) Swelling of Lip/Tongue/Throat amlodipine Adverse Reaction (Verified 09/08/23 06:25) Edema aspirin Adverse Reaction (Verified 09/08/23 06:25) Swelling of Lip/Tongue/Throat Results Labs 09/09/23 03:54 09/10/23 04:39 Labs: 09/09/23 09/10/23 13:43 04:39 BUN 30 H Creatinine 2.50 H D Iron Saturation 20.4 Radiology Impressions Impressions - last 24 hours: Any impression(s) listed above is documentation that was entered by the reading physician into a diagnostic report(s) for Dave Lugo. I have reviewed the report(s) and am incorporating any findings in the treatment plan of this patient where applicable. A&P - Nephrology Assessment/Plan (1) Acute kidney injury superimposed on CKD: Assessment/Problem Details: He has MEAGHAN on CKD likely due to the contrast-induced nephropathy. (2) Chronic kidney disease, stage III (moderate): Assessment/Problem Details: He has CKD due to the longstanding DM with HTN with baseline serum creatinine 1.7 to 1.8 mg/dL. His CAT scan shows no evidence of obstructive uropathy. (3) Hypertensive chronic kidney disease with stage 1 through stage 4 chronic kidney disease, or unspecified chronic kidney disease: Assessment/Problem Details: Patient presents with uncontrolled hypertension due to the abdominal pain. His blood pressure has improved with the pain control and home dose of antihypertensive medication. (4) Type 2 diabetes mellitus with diabetic chronic kidney disease: Assessment/Problem Details: He has insulin-dependent type 2 diabetes mellitus currently takes insulin glargine at home. (5) Anemia of renal disease: Assessment/Problem Details: Hemoglobin within the goal. He has a low iron stores but normal B12 folate level. (6) Proteinuria: Assessment/Problem Details: He has subnephrotic range proteinuria likely due to diabetic kidney disease. The differential diagnosis is a paraproteinemia. (7) Abdominal pain: Assessment/Problem Details: Patient present with abdominal pain and was seen by the GI. He had a EGD which showed patchy duodenitis. Plan * Continue home dose of the carvedilol, Imdur and hydralazine. * Will follow serum free light chain ratio, SPEP, UPEP, serum and urine immunofixation. * Continue insulin adjust the dose as needed to keep the blood sugar between 100 to 150 mg/dL. * Continue to hold home dose of metformin due to MEAGHAN * Continue oral iron. * Monitor input output * Check renal function daily. Documented By: Nette Holden MD 09/10/23 1206 Signed By: <Electronically signed by Nette Holden MD> 09/10/23 1209 [facility] Work Phone: [phone] 170-988512-06-2023 Progress note Author Barbie Osborn [facility] September 10, 2023 10:13am Note Date/Time September 10, 2023 1 0:13am [facility] [address] [place] [address] Hospitalist Progress Note Signed Patient: Dave Lugo MR#: [id number] : 1950 Acct:[id number] Age/Sex: 73 / M Adm Date: 3 Loc: Room: 1L6487-6 Type: ADM IN Attending Dr: Barbie Osborn MD Copies to: ~ Date of Service: 09/10/2023 Subjective Subjective Narrative: On examination patient is feeling significant better and denies further abdominal pain. Blood pressure remains well-controlled as well. He has been tolerating regular diet. His morning labs did show increase in creatinine to 2.5 and nephrology service has been consulted. Exam Physical Exam Vital Signs: Temp Pulse Resp BP Pulse Ox O2 Del Method 99.8 F H 80 18 137/79 96 Room Air 09/10/23 08:00 09/10/23 08:00 09/10/23 08:00 09/10/23 08:00 09/10/23 08:00 09/10/23 08:00 Const General: cooperative Orientation: alert, awake and oriented x3 Resp Effort & Inspection: normal respiratory effort and able to speak in complete sentences Auscultation: no rales, no rhonchi and no wheezes Cardio Rate: regular rate Rhythm: regular rhythm Heart Sounds: S1 normal and S2 normal GI Inspection: non-distended Palpation: soft, not firm, no guarding and nontender Neuro General: patient alert, patient awake, patient oriented x3, moves all extremities, no focal motor deficits and CN's II-XI intact bilaterally Cognition: normal cognition Speech: speech normal Extrem General: no clubbing, cyanosis or edema and no calf tenderness Objective Lab Results 09/09/23 03:54 09/10/23 04:39 Meds Allergies and Active Meds Allergies oxycodone [From Percocet] Allergy (Verified 09/08/23 06:25) Swelling of Lip/Tongue/Throat amlodipine Adverse Reaction (Verified 09/08/23 06:25) Edema aspirin Adverse Reaction (Verified 09/08/23 06:25) Swelling of Lip/Tongue/Throat Active Meds: Active Medications Generic Name Dose Route Start Last Admin Trade Name Freq PRN Reason Stop Dose Admin Aspirin 81 mg 09/09/23 09:00 09/10/23 08:43 Aspirin 81 Mg Tab.Chew PO 09/08/24 08:59 81 mg QAM VANE Administration Atorvastatin Calcium 20 mg 09/08/23 22:00 09/09/23 21:18 Atorvastatin 20 Mg Tablet PO 09/07/24 21:59 20 mg QHS VANE Administration Carvedilol 25 mg 09/08/23 17:00 09/10/23 08:43 Carvedilol 25 Mg Tablet PO 09/07/24 16:59 25 mg BID.WITH.MEALS VANE Administration Cyanocobalamin 1,000 mcg 09/09/23 09:00 09/10/23 08:43 Cyanocobalamin 1,000 Mcg Tablet PO 09/08/24 08:59 1,000 mcg QAM VANE Administration Dextrose 0 gm 09/08/23 13:53 Dextrose 50% In Water 25 Gm/50 Ml Syringe IV-PUSH 09/07/24 13:52 PRN PRN Hypoglycemia Enoxaparin Sodium 30 mg 09/10/23 07:41 Enoxaparin 30 Mg/0.3 Ml Syringe SUBCUT 09/08/24 09:59 DAILY@1000 VANE Ferrous Sulfate 324 mg 09/09/23 09:00 09/10/23 08:43 Ferrous Sulfate 324 Mg Tablet. PO 09/08/24 08:59 324 mg QAM VANE Administration Glucose 0 gm 09/08/23 13:53 Dextrose 40% Gel 15 Gm Tube PO 09/07/24 13:52 PRN PRN Hypoglycemia Hydralazine HCl 50 mg 09/08/23 15:15 09/10/23 08:43 Hydralazine 50 Mg Tablet PO 09/07/24 15:14 50 mg BID VANE Administration Insulin Aspart 0 units 09/08/23 17:00 09/10/23 08:43 Insulin Aspart 300 Units/3 Ml Insuln.Pen SUBCUT 09/07/24 16:59 2 units TID.WM.HS VANE Administration Protocol Insulin Glargine 8 units 09/09/23 09:00 09/10/23 08:43 Insulin Glargine 300 Units/3 Ml Insuln.Pen SUBCUT 09/08/24 08:59 8 units DAILY VANE Administration Isosorbide Mononitrate 30 mg 09/09/23 09:00 09/10/23 08:43 Isosorbide Mononitrate 24hr Er 30 Mg Tab.Er.24h PO 09/08/24 08:59 30 mg QAM VANE Administration Morphine Sulfate 2 mg 09/08/23 13:53 09/08/23 23:35 Morphine Sulfate 2 Mg/Ml Vial IV-PUSH 2 mg Q3H PRN Administration Severe Pain Nitroglycerin 0.4 mg 09/08/23 15:11 Nitroglycerin 0.4 Mg Tab.Subl SUBLINGUAL 09/07/24 15:10 Q5M PRN Chest Pain Pantoprazole Sodium 40 mg 09/10/23 09:00 09/10/23 08:43 Pantoprazole 40 Mg Tablet. PO 09/09/24 08:59 40 mg BID VANE Administration Sodium Chloride 0 ml 09/08/23 06:24 09/08/23 23:36 Sodium Chloride 0.9 % 10 Ml Syringe IV-PUSH 09/07/24 06:23 10 ml PRN PRN Administration Flush Sodium Chloride 0 ml 09/08/23 17:13 Sodium Chloride 0.9 % 10 Ml Syringe IV-PUSH 09/07/24 17:12 PRN PRN Flush Sodium Chloride 0 ml 09/09/23 14:00 09/10/23 08:43 Sodium Chloride 0.9 % 10 Ml Syringe IV-PUSH 09/08/24 13:59 10 ml QSHIFT VANE Administration A&P - Hospitalist Assessment/Plan (1) Hypertensive emergency: (2) Elevated troponin: (3) Abdominal pain: (4) CKD (chronic kidney disease) stage 3, GFR 30-59 ml/min: (5) Diabetes: (6) CAD (coronary artery disease): (7) Type 2 diabetes mellitus with diabetic chronic kidney disease: (8) Duodenitis: (9) MEAGHAN (acute kidney injury): Plan She denies further abdominal pain and has been tolerating regular diet. His EGDshowed patchy duodenitis. His morning labs showing increasing creatinine to 2.5suspecting contrast-induced nephropathy given his baseline chronic kidney disease. Nephrology service is on consult. Avoid nephrotoxic medication continue to monitor renal function. Will consult PT/OT. Blood pressure is well-controlled on carvedilol, Imdur and hydralazine. Continue basal insulin with sliding scale coverage. Patient requires hospital stay to monitor renal function given his recent contrast exposure and concern for contrast-induced nephropathy with underlying chronic kidney disease. Documented By: Barbie Osborn MD 09/10/23 1009 Signed By: <Electronically signed by Barbie Osborn MD> 09/10/23 1013 [facility] Work Phone: [phone] 575-797912-05-2023 Progress note Author Barbie Osborn [facility] September 09, 2023 4:54pm Note Date/Time September 09, 2023 4 :54pm [facility] [address] [place] [address] Hospitalist Progress Note Signed Patient: Dave Lugo MR#: [id number] : 1950 Acct:[id number] Age/Sex: 73 / M Adm Date: 3 Loc: Room: [address] [place] [address] Type: ADM IN Attending Dr: Barbie Osborn MD Copies to: ~ Date of Service: 09/09/2023 Subjective Subjective Narrative: On examination patient denies abdominal pain. He has been off clevidipine drip with blood pressure better controlled. No significant elevation troponin appreciate cardiology and GI consultation. He mentioned abdominal pain has improved. He did underwent EGD which showed duodenitis. Exam Physical Exam Vital Signs: Temp Pulse Resp BP Pulse Ox O2 Del Method 99 F 76 20 113/61 95 Room Air 09/09/23 10:55 09/09/23 14:00 09/09/23 14:00 09/09/23 14:00 09/09/23 14:00 09/09/23 16:00 Const General: cooperative Orientation: alert, awake and oriented x3 Resp Effort & Inspection: normal respiratory effort and able to speak in complete sentences Auscultation: no rales, no rhonchi and no wheezes Cardio Rate: regular rate Rhythm: regular rhythm Heart Sounds: S1 normal and S2 normal GI Inspection: non-distended Palpation: soft, not firm, no guarding and nontender Neuro General: patient alert, patient awake, patient oriented x3, moves all extremities, no focal motor deficits and CN's II-XI intact bilaterally Cognition: normal cognition Speech: speech normal Extrem General: no clubbing, cyanosis or edema and no calf tenderness Objective Lab Results 09/09/23 03:54 09/09/23 03:54 Meds Allergies and Active Meds Allergies oxycodone [From Percocet] Allergy (Verified 09/08/23 06:25) Swelling of Lip/Tongue/Throat amlodipine Adverse Reaction (Verified 09/08/23 06:25) Edema aspirin Adverse Reaction (Verified 09/08/23 06:25) Swelling of Lip/Tongue/Throat Active Meds: Active Medications Generic Name Dose Route Start Last Admin Trade Name Freq PRN Reason Stop Dose Admin Aspirin 81 mg 09/09/23 09:00 09/09/23 08:00 Aspirin 81 Mg Tab.Chew PO 09/08/24 08:59 Not Given [facility] Atorvastatin Calcium 20 mg 09/08/23 22:00 09/08/23 21:58 Atorvastatin 20 Mg Tablet PO 09/07/24 21:59 20 mg QHS [facility] Administration Carvedilol 25 mg 09/08/23 17:00 09/09/23 07:57 Carvedilol 25 Mg Tablet PO 09/07/24 16:59 25 mg BID.WITH.MEALS [facility] Administration Cyanocobalamin 1,000 mcg 09/09/23 09:00 09/09/23 08:00 Cyanocobalamin 1,000 Mcg Tablet PO 09/08/24 08:59 Not Given QAM [facility] Dextrose 0 gm 09/08/23 13:53 Dextrose 50% In Water 25 Gm/50 Ml Syringe IV-PUSH 09/07/24 13:52 PRN PRN Hypoglycemia Enoxaparin Sodium 40 mg 09/09/23 10:00 09/09/23 09:21 Enoxaparin 40 Mg/0.4 Ml Syringe SUBCUT 09/08/24 09:59 Not Given DAILY@1000 [facility] Ferrous Sulfate 324 mg 09/09/23 09:00 09/09/23 08:00 Ferrous Sulfate 324 Mg Tablet. PO 09/08/24 08:59 Not Given QAM [facility] Glucose 0 gm 09/08/23 13:53 Dextrose 40% Gel 15 Gm Tube PO 09/07/24 13:52 PRN PRN Hypoglycemia Hydralazine HCl 50 mg 09/08/23 15:15 09/09/23 08:00 Hydralazine 50 Mg Tablet PO 09/07/24 15:14 Not Given BID [facility] Clevidipine 50 mg in 100 mls @ 2 mls/hr 09/08/23 12:00 09/09/23 11:15 Cleviprex IV 09/07/24 11:59 Not Given .Q24H [facility] Protocol 1 MG/HR Insulin Aspart 0 units 09/08/23 17:00 09/09/23 12:44 Insulin Aspart 300 Units/3 Ml Insuln.Pen SUBCUT 09/07/24 16:59 2 units TID.WM.HS [facility] Administration Protocol Insulin Glargine 8 units 09/09/23 09:00 09/09/23 08:00 Insulin Glargine 300 Units/3 Ml Insuln.Pen SUBCUT 09/08/24 08:59 Not Given DAILY [facility] Isosorbide Mononitrate 30 mg 09/09/23 09:00 09/09/23 08:19 Isosorbide Mononitrate 24hr Er 30 Mg Tab.Er.24h PO 09/08/24 08:59 Not Given QAM [facility] Morphine Sulfate 2 mg 09/08/23 13:53 09/08/23 23:35 Morphine Sulfate 2 Mg/Ml Vial IV-PUSH 2 mg Q3H PRN Administration Severe Pain Nitroglycerin 0.4 mg 09/08/23 15:11 Nitroglycerin 0.4 Mg Tab.Subl SUBLINGUAL 09/07/24 15:10 Q5M PRN Chest Pain Pantoprazole Sodium 40 mg 09/08/23 14:00 09/09/23 08:02 Pantoprazole 40 Mg Vial IV-PUSH 09/07/24 13:59 40 mg BID VANE Administration Sodium Chloride 0 ml 09/08/23 06:24 09/08/23 23:36 Sodium Chloride 0.9 % 10 Ml Syringe IV-PUSH 09/07/24 06:23 10 ml PRN PRN Administration Flush Sodium Chloride 10 ml 09/08/23 13:53 09/09/23 08:02 Sodium Chloride 0.9 % 10 Ml Vial.Pf INJECTION 09/07/24 13:52 10 ml PRN PRN Administration Dilution Sodium Chloride 10 ml 09/08/23 13:53 Sodium Chloride 0.9 % 10 Ml Syringe IV-PUSH 09/07/24 13:52 PRN PRN Flush Sodium Chloride 0 ml 09/08/23 17:13 Sodium Chloride 0.9 % 10 Ml Syringe IV-PUSH 09/07/24 17:12 PRN PRN Flush Sodium Chloride 0 ml 09/09/23 14:00 09/09/23 14:31 Sodium Chloride 0.9 % 10 Ml Syringe IV-PUSH 09/08/24 13:59 Not Given QSHIFT VANE A&P - Hospitalist Assessment/Plan (1) Hypertensive emergency: (2) Elevated troponin: (3) Abdominal pain: (4) CKD (chronic kidney disease) stage 3, GFR 30-59 ml/min: (5) Diabetes: (6) CAD (coronary artery disease): (7) Type 2 diabetes mellitus with diabetic chronic kidney disease: (8) Duodenitis: Plan Patient underwent EGD which showed patchy duodenitis and his abdominal pain has improved. Blood pressures improved as well and has been off clevidipine drip. He can be transferred out of ICU will continue PPI. Seen by nephrology regarding his chronic renal disease as patient is high risk of developing contrast-induced nephropathy and need to be monitored. Follow-up renal functionin morning labs. Continue carvedilol, statin, basal insulin with sliding scale coverage, Imdur, hydralazine Lovenox for DVT prophylaxis. Documented By: Barbie Osborn MD 09/09/23 0669 Signed By: <Electronically signed by Barbie Osborn MD> 09/09/23 9471 [facility] Work Phone: [phone] Progress note Author Gabriela Florian [facility] September 09, 2023 4:22pm Note Date/Time September 09, 2023 4 :21pm [facility] [address] [place] [address] Cardiology Progress Note Signed Patient: Dave Lugo MR#: [id number] : 1950 Acct:[id number] Age/Sex: 73 / M Adm Date: 3 Loc: Room: [address] [place] [address] Type: ADM IN Attending Dr: Barbie Osborn MD Copies to: ~ Date of Service: 09/09/2023 Subjective Interval history: Patient had endoscopy and was found to have duodenal pathology. He is in no distress, his blood pressure is normalized. He is in the ICU for convenience. There will be no further cardiac workup and no change in his home medications. Will sign off Exam Physical Exam Vital Signs: Temp Pulse Resp BP Pulse Ox O2 Del Method 99 F 76 20 113/61 95 Room Air 09/09/23 10:55 09/09/23 14:00 09/09/23 14:00 09/09/23 14:00 09/09/23 14:00 09/09/23 14:00 Const General: cooperative and no acute distress Nutritional Appearance: average body habitus Orientation: alert, awake and oriented x3 HEENT Head: normal to inspection Ears: hearing grossly normal bilaterally Nose: external nose normal Face and sinus: normal facial exam Eyes General: appearance normal, both eyes and all related structures Conjunctivae: conjunctivae normal Pupils: PERRL Neck Neck: normal visual inspection, no meningeal signs and trachea midline Neck mass: No Thyroid: thyroid normal Carotids: normal carotid upstroke Resp Effort & Inspection: normal respiratory effort Auscultation: clear to auscultation bilaterally Cardio Jugular venous pressure: no JVD Palpation: normal PMI Rate: regular rate Rhythm: regular rhythm Heart Sounds: S1 normal and S2 normal GI Inspection: normal to inspection Palpation: no hepatosplenomegaly Auscultation: normal bowel sounds Extrem General: no clubbing, cyanosis or edema Objective Labs 09/09/23 03:54 09/09/23 03:54 Labs: Laboratory Results - last 24 hr 09/08/23 09/08/23 09/08/23 16:19 16:49 21:57 Corrected WBC Uncorrected WBC Count RBC Hgb Hct MCV MCH MCHC RDW Plt Count MPV Neut % (Auto) Lymph % (Auto) [place] % (Auto) Eos % (Auto) Baso % (Auto) Nucleat RBC Rel Count Neut # (Auto) Lymph # (Auto) [place] # (Auto) Eos # (Auto) Baso # (Auto) PHA Creatinine Clear Sodium Potassium Chloride Carbon Dioxide Anion Gap BUN Creatinine Est GFR (CKD-EPI) Glucose POC Glucose 157 235 POC Glucose Comment Glu2: cleaned meter Calcium Iron TIBC Iron Saturation Transferrin Troponin I High Sens 61.9 H* Vitamin B12 Folate 09/09/23 09/09/23 09/09/23 03:54 03:54 07:27 Corrected WBC 9.4 Uncorrected WBC Count 9.4 RBC 4.25 Hgb 12.0 L Hct 35.7 L MCV 84.1 MCH 28.3 MCHC 33.7 RDW 13.6 Plt Count 201 MPV 8.5 Neut % (Auto) 60.8 Lymph % (Auto) 23.8 [place] % (Auto) 12.2 Eos % (Auto) 2.4 Baso % (Auto) 0.8 Nucleat RBC Rel Count 0.0 Neut # (Auto) 5.7 Lymph # (Auto) 2.3 [place] # (Auto) 1.1 H Eos # (Auto) 0.2 Baso # (Auto) 0.1 PHA Creatinine Clear 32.27 Sodium 136 Potassium 3.9 Chloride 107 Carbon Dioxide 24.3 Anion Gap 8.6 BUN 23 Creatinine 1.84 H Est GFR (CKD-EPI) 38.232 Glucose 125 H POC Glucose 117 POC Glucose Comment Calcium 8.6 Iron TIBC Iron Saturation Transferrin Troponin I High Sens Vitamin B12 Folate 09/09/23 09/09/23 12:43 13:43 Corrected WBC Uncorrected WBC Count RBC Hgb Hct MCV MCH MCHC RDW Plt Count MPV Neut % (Auto) Lymph % (Auto) [place] % (Auto) Eos % (Auto) Baso % (Auto) Nucleat RBC Rel Count Neut # (Auto) Lymph # (Auto) [place] # (Auto) Eos # (Auto) Baso # (Auto) PHA Creatinine Clear Sodium Potassium Chloride Carbon Dioxide Anion Gap BUN Creatinine Est GFR (CKD-EPI) Glucose POC Glucose 158 POC Glucose Comment Glu2: cleaned meter Calcium Iron 53 TIBC 260 Iron Saturation 20.4 Transferrin 186 L Troponin I High Sens Vitamin B12 1320 H Folate 27.0 A&P - Cardiology (1) Accelerated hypertension: Assessment/Problem Details: This is caused by abdominal pain, resolved Code(s): I10 - Essential (primary) hypertension Status: Acute Plan: Continue home medications (2) Stented coronary artery: Assessment/Problem Details: Last intervention 2016 to the RCA with no indication of recurrent disease Status: Acute Plan: Continue statin and other medications, hold off on the aspirin (3) CKD (chronic kidney disease): Assessment/Problem Details: Slightly worsened and being evaluated by nephrology Code(s): N18.9 - Chronic kidney disease, unspecified Status: Inactive (4) Diabetes: Qualifiers: Diabetes mellitus type: type 2 Code(s): E11.9 - Type 2 diabetes mellitus without complications Status: Chronic Plan: Continue home medications (5) Dyslipidemia: Code(s): E78.5 - Hyperlipidemia, unspecified Status: Acute Plan: Continue home medication (6) Abdominal pain: Assessment/Problem Details: He was found to have duodenitis by endoscopy and his pain is far less Code(s): R10.9 - Unspecified abdominal pain Status: Acute Documented By: Gabriela Florian MD, [facility] 3 1619 Signed By: <Electronically signed by [facility]> 09/09/23 1622 [facility] Work Phone: [phone] 543-627112-05-2023 Consult note Author Nette Holden [facility] September 09, 2023 1:41pm Note Date/Time September 09, 2023 1 :25pm [facility] [address] [place], [place] [id number] Nephrology Consult Note Signed Patient: Dave Lugo MR#: [id number] : 1950 Acct:[id number] Age/Sex: 73 / M Adm Date: 3 Loc: Room: 3W9991-1 Type: ADM IN Attending Dr: Barbie Osborn MD Copies to: MD Lolita Hyde DO Mazhar Rahman, MD~ Providers Consult Date: 09/09/23 Requesting Provider: Barbie Osborn MD Primary Care Provider: Lolita Adorno DO HPI Reason for Consult: CKD and proteinuria History of Present Illness: This is a 73-year-old male with a medical history of DM, CAD s/p PCI in 2017, CKD, HTN, dyslipidemia was presented to the emergency room for abdominal pain. Patient on evaluation emergency room was found to have a systolic blood pressurein 200s and was started clevidipine drip for hypertensive emergency. He was also noticed to have elevated serum creatinine 1.8 mg/dL. He had a CTA abdomen pelvis done to rule out dissection which was negative for any dissection or acute finding. Patient was seen by the GI for his abdominal pain and had a EGD today which showed patchy duodenitis. During hospital course his blood pressureimproved with the pain management and he was taken off his of the clevidipine drip and was resumed on home dose of antihypertensive medication. On review record it appears that patient has a known history of CKD with baseline serum creatinine 1.7 to 1.8 mg/dL he also has a subnephrotic range proteinuria but denies any evaluation by the nephrology in the past. He reported that he was following with his PCP for his CKD. He has a longstanding insulin-dependent type 2 diabetes mellitus currently takes insulin glargine. He reported to have a history of diabetic retinopathy and was treated with intraocular injection. Nephrology is consulted for CKD and proteinuria management. Patient was seen and examined at bedside that he is feeling better than yesterday. Review of Systems Review of Systems All other systems reviewed & are negative unless noted below or in HPI Review of systems: Cardiovascular: denies any chest pain, palpitation Pulmonary: denies any cough, hemoptysis Gastrointestinal: denies any nausea, vomiting, diarrhea Neurological :denies any headache, numbness, weakness Endocrine: denies any polyuria, polydipsia Dermatological: denies any itching or rash PMFSH Medical History Diabetes History of cataract HTN (hypertension) Hyperlipemia Kidney stone Myocardial infarct 2 STENTS Poor historian Smoker Surgical History H/O heart artery stent History of back surgery History of cardiac catheterization History of orthopedic surgery 1st rib removed Family History Sister Brain aneurysm Brother Myocardial infarction Mother Diabetes mellitus, type 2 Social History Smoking Status: Current every day smoker Tobacco Type: cigarettes Substance Use Type: None Meds Medications & Allergies Allergies oxycodone [From Percocet] Allergy (Verified 09/08/23 06:25) Swelling of Lip/Tongue/Throat amlodipine Adverse Reaction (Verified 09/08/23 06:25) Edema aspirin Adverse Reaction (Verified 09/08/23 06:25) Swelling of Lip/Tongue/Throat Home Medications nitroglycerin 0.4 mg sublingual tablet 0.4 mg sublingual Q5M PRN Chest Pain 30 days ##30 08/26/17 [Rx Confirmed 09/08/23] metformin 500 mg tablet 500 mg PO BID 08/08/20 [History Confirmed 09/08/23] zbjkbzsn-iqob-xvrcnmq gluconate 9 mg iron/15 mL (15 mL) oral liquid (Centrum) 15ml PO DAILY 08/08/20 [History Confirmed 09/08/23] atorvastatin 20 mg tablet 20 mg PO QHS 08/09/20 [History Confirmed 09/08/23] ferrous sulfate 325 mg (65 mg iron) tablet 325 mg PO QAM 04/25/21 [History Confirmed 09/08/23] sitagliptin phosphate 100 mg tablet (Januvia) 50 mg PO BID 09/12/21 [History Confirmed 09/08/23] aspirin 81 mg chewable tablet 81 mg PO QAM 09/18/22 [History Confirmed 09/08/23] cyanocobalamin (vitamin B-12) 1,000 mcg tablet (Vitamin B-12) 1,000 mcg PO QAM 09/18/22 [History Confirmed 09/08/23] isosorbide mononitrate 30 mg tablet,extended release 24 hr 30 mg PO QAM 09/18/22[History Confirmed 09/08/23] carvedilol 25 mg tablet 25 mg PO BID.WITH.MEALS 30 days #60 tabs 10/06/22 [Rx Confirmed 09/08/23] cyclobenzaprine 10 mg tablet 10 mg PO QHS PRN back spasms 09/08/23 [History Confirmed 09/08/23] hydralazine 50 mg tablet 50 mg PO BID 09/08/23 [History Confirmed 09/08/23] insulin glargine 100 unit/mL subcutaneous solution (Lantus U-100 Insulin) 8 unitsubcut BID 09/08/23 [History Confirmed 09/08/23] Active Medications: Active Medications Aspirin (Aspirin 81 Mg Tab.Chew) 81 mg PO QAM [facility] Stop: 09/08/24 08:59 Last Admin: 09/09/23 08:00 Dose: Not Given Atorvastatin Calcium (Atorvastatin 20 Mg Tablet) 20 mg PO QHS [facility] Stop: 09/07/24 21:59 Last Admin: 09/08/23 21:58 Dose: 20 mg Carvedilol (Carvedilol 25 Mg Tablet) 25 mg PO BID.WITH.MEALS [facility] Stop: 09/07/24 16:59 Last Admin: 09/09/23 07:57 Dose: 25 mg Cyanocobalamin (Cyanocobalamin 1,000 Mcg Tablet) 1,000 mcg PO QAM [facility] Stop: 09/08/24 08:59 Last Admin: 09/09/23 08:00 Dose: Not Given Dextrose (Dextrose 50% In Water 25 Gm/50 Ml Syringe) 0 gm IV-PUSH PRN PRN PRN Reason: Hypoglycemia Stop: 09/07/24 13:52 Enoxaparin Sodium (Enoxaparin 40 Mg/0.4 Ml Syringe) 40 mg SUBCUT DAILY@1000 [facility] Stop: 09/08/24 09:59 Last Admin: 09/09/23 09:21 Dose: Not Given Ferrous Sulfate (Ferrous Sulfate 324 Mg Tablet.Dr) 324 mg PO QAM [facility] Stop: 09/08/24 08:59 Last Admin: 09/09/23 08:00 Dose: Not Given Glucose (Dextrose 40% Gel 15 Gm Tube) 0 gm PO PRN PRN PRN Reason: Hypoglycemia Stop: 09/07/24 13:52 Hydralazine HCl (Hydralazine 50 Mg Tablet) 50 mg PO BID [facility] Stop: 09/07/24 15:14 Last Admin: 09/09/23 08:00 Dose: Not Given Clevidipine (Cleviprex) 50 mg in 100 mls @ 2 mls/hr IV .Q24H [facility]; Protocol Stop: 09/07/24 11:59 Last Admin: 09/09/23 11:15 Dose: Not Given Insulin Aspart (Insulin Aspart 300 Units/3 Ml Insuln.Pen) 0 units SUBCUT TID.WM.HS [facility]; Protocol Stop: 09/07/24 16:59 Last Admin: 09/09/23 12:44 Dose: 2 units Insulin Glargine (Insulin Glargine 300 Units/3 Ml Insuln.Pen) 8 units SUBCUT DAILY [facility] Stop: 09/08/24 08:59 Last Admin: 09/09/23 08:00 Dose: Not Given Isosorbide Mononitrate (Isosorbide Mononitrate 24hr Er 30 Mg Tab.Er.24h) 30 mg PO QAM [facility] Stop: 09/08/24 08:59 Last Admin: 09/09/23 08:19 Dose: Not Given Morphine Sulfate (Morphine Sulfate 2 Mg/Ml Vial) 2 mg IV-PUSH Q3H PRN PRN Reason: Severe Pain Last Admin: 09/08/23 23:35 Dose: 2 mg Nitroglycerin (Nitroglycerin 0.4 Mg Tab.Subl) 0.4 mg SUBLINGUAL Q5M PRN PRN Reason: Chest Pain Stop: 09/07/24 15:10 Pantoprazole Sodium (Pantoprazole 40 Mg Vial) 40 mg IV-PUSH BID [facility] Stop: 09/07/24 13:59 Last Admin: 09/09/23 08:02 Dose: 40 mg Sodium Chloride (Sodium Chloride 0.9 % 10 Ml Syringe) 0 ml IV-PUSH PRN PRN PRN Reason: Flush Stop: 09/07/24 06:23 Last Admin: 09/08/23 23:36 Dose: 10 ml Sodium Chloride (Sodium Chloride 0.9 % 10 Ml Vial.Pf) 10 ml INJECTION PRN PRN PRN Reason: Dilution Stop: 09/07/24 13:52 Last Admin: 09/09/23 08:02 Dose: 10 ml Sodium Chloride (Sodium Chloride 0.9 % 10 Ml Syringe) 10 ml IV-PUSH PRN PRN PRN Reason: Flush Stop: 09/07/24 13:52 Sodium Chloride (Sodium Chloride 0.9 % 10 Ml Syringe) 0 ml IV-PUSH PRN PRN PRN Reason: Flush Stop: 09/07/24 17:12 Sodium Chloride (Sodium Chloride 0.9 % 10 Ml Syringe) 0 ml IV-PUSH QSHIFT VANE Stop: 09/08/24 13:59 Exam Physical Exam Vital Signs: Temp Pulse Resp BP Pulse Ox O2 Del Method 99 F 75 14 113/63 95 Room Air 09/09/23 10:55 09/09/23 12:43 09/09/23 12:43 09/09/23 12:43 09/09/23 12:43 09/09/23 12:43 Narrative: General: Appears comfortable and not in distress Heart: S1-S2, no rub Lung: Bilateral air entry, no wheezing or crackles Abdomen: Soft, positive bowel sounds Extremities: No edema, no cyanosis Head: Atraumatic, normocephalic Ear: No gross hearing Deficit or external ear redness Eyes: No pallor or redness Neck: No JVD or visible mass Skin: No rashes , warm to touch ALUMINUM SHEET CUTTER: Awake,Alert, following simple command Musculoskeletal: No joint swelling or limitation of movement Psychiatric: Cooperative, normal mood and affect Results Labs 09/09/23 03:54 09/09/23 03:54 Labs: 09/09/23 03:54 BUN 23 Creatinine 1.84 H Radiology Impressions Impressions - last 24 hours: Any impression(s) listed above is documentation that was entered by the reading physician into a diagnostic report(s) for Dave Lugo. I have reviewed the report(s) and am incorporating any findings in the treatment plan of this patient where applicable. A&P - Nephrology Assessment/Plan (1) Chronic kidney disease, stage III (moderate): Assessment/Problem Details: He has CKD due to the longstanding DM with HTN with baseline serum creatinine 1.87 to 1.8 mg/dL. His CAT scan shows no evidence of obstructive uropathy. (2) Hypertensive chronic kidney disease with stage 1 through stage 4 chronic kidney disease, or unspecified chronic kidney disease: Assessment/Problem Details: Patient presents with uncontrolled hypertension due to the abdominal pain. His blood pressure has improved with the pain control and home dose of antihypertensive medication. (3) Type 2 diabetes mellitus with diabetic chronic kidney disease: Assessment/Problem Details: He has insulin-dependent type 2 diabetes mellitus currently takes insulin glargine at home. (4) Anemia of renal disease: Assessment/Problem Details: Hemoglobin within the goal. (5) Proteinuria: Assessment/Problem Details: He has subnephrotic range proteinuria likely due to diabetic kidney disease. The differential diagnosis is a paraproteinemia. (6) Abdominal pain: Assessment/Problem Details: Patient present with abdominal pain and was seen by the GI. He had a EGD which showed patchy duodenitis. Plan * Patient renal function is stable but he will be risk of CLAUDIO due to the recent contrast study and rapid swings of blood pressure. Continue to monitor renal function. * Continue home dose of the carvedilol, Imdur and hydralazine. * Check serum free light chain ratio, SPEP, UPEP, serum and urine immunofixation. * Continue insulin adjust the dose as needed to keep the blood sugar between 100 to 150 mg/dL. * Check iron studies, B12 and folate level. * Continue to hold home dose of metformin due to recent contrast study. * Monitor input output * Thanks for the consult. Will continue follow with you. Please feel free to call us with any question. * The plan of care was discussed in detail with the patient's daughter was also at the bedside. Documented By: Nette Holden MD 09/09/23 1317 Signed By: <Electronically signed by Nette Holden MD> 09/09/23 8904 [facility] Work Phone: [phone] 973-254912-05-2023 Consult note Author Joao Coley [facility] September 09, 2023 12:03pm Note Date/Time September 08, 2023 4 :16pm [facility] [address] [place] [address] Gastroenterology Consult Note Signed Patient: Dave Lugo MR#: [id number] : 1950 Acct:[id number] Age/Sex: 73 / M Adm Date: 3 Loc: Room: [address] [place] [address] Type: ADM IN Attending Dr: Barbie Osborn MD Copies to: DO Joao Roca MD Mazhar Rahman, MD~ HPI Data of Consult Date of Consultation: 09/08/23 Requesting Physician: Barbie Osborn MD Consult Narrative History of present illness: Mr. Lugo is a 73 year old male who is referred because of abdominal pain. The history is well recorded. Patient has multiple medical problems including coronary artery disease status post PCI to the RCA in 2017, type 2 diabetes mellitus, hypertension, stage IIIa chronic kidney disease, hypertension, hyperlipidemia, smoker Patient presented to the emergency room with chief complaints of abdominal pain. States abdominal pain was all over but it was worse in the epigastrium radiating through to the back. CTA of the abdomen pelvis was done which was negative for severe vascular disease bowel obstruction but showed mild aortic iliac and visceral artery plaques with some stenosis. Despite this his white count remained normal. Troponin was a little elevated. Since admission to the hospital he has been having worsening renal function. Mentioned on the CT scan that the patient has a large pancreatic duct. Patient does smoke half pack of cigarettes a day. Patient did have colonoscopy and polypectomy 2 years ago. cc:: CC: Barbie Osborn MD Review of Systems Review of Systems All other systems reviewed & are negative unless noted below or in HPI [facility] Medical History Chronic kidney disease, stage 3a Diabetes History of cataract HTN (hypertension) Hyperlipemia Kidney stone Myocardial infarct 2 STENTS Poor historian Smoker Surgical History H/O heart artery stent History of back surgery History of cardiac catheterization History of orthopedic surgery 1st rib removed Family History Sister Brain aneurysm Brother Myocardial infarction Mother Diabetes mellitus, type 2 Social History Smoking Status: Current every day smoker Tobacco Type: cigarettes Substance Use Type: None Meds Medications and Allergies Allergies oxycodone [From Percocet] Allergy (Verified 09/08/23 06:25) Swelling of Lip/Tongue/Throat amlodipine Adverse Reaction (Verified 09/08/23 06:25) Edema aspirin Adverse Reaction (Verified 09/08/23 06:25) Swelling of Lip/Tongue/Throat Home Medications nitroglycerin 0.4 mg sublingual tablet 0.4 mg sublingual Q5M PRN Chest Pain 30 days ##30 08/26/17 [Rx Confirmed 09/08/23] metformin 500 mg tablet 500 mg PO BID 08/08/20 [History Confirmed 09/08/23] ulwpetgf-ddpw-fisobaa gluconate 9 mg iron/15 mL (15 mL) oral liquid (Centrum) 15ml PO DAILY 08/08/20 [History Confirmed 09/08/23] atorvastatin 20 mg tablet 20 mg PO QHS 08/09/20 [History Confirmed 09/08/23] ferrous sulfate 325 mg (65 mg iron) tablet 325 mg PO QAM 04/25/21 [History Confirmed 09/08/23] sitagliptin phosphate 100 mg tablet (Januvia) 50 mg PO BID 09/12/21 [History Confirmed 09/08/23] aspirin 81 mg chewable tablet 81 mg PO QAM 09/18/22 [History Confirmed 09/08/23] cyanocobalamin (vitamin B-12) 1,000 mcg tablet (Vitamin B-12) 1,000 mcg PO QAM 09/18/22 [History Confirmed 09/08/23] isosorbide mononitrate 30 mg tablet,extended release 24 hr 30 mg PO QAM 09/18/22[History Confirmed 09/08/23] carvedilol 25 mg tablet 25 mg PO BID.WITH.MEALS 30 days #60 tabs 10/06/22 [Rx Confirmed 09/08/23] cyclobenzaprine 10 mg tablet 10 mg PO QHS PRN back spasms 09/08/23 [History Confirmed 09/08/23] hydralazine 50 mg tablet 50 mg PO BID 09/08/23 [History Confirmed 09/08/23] insulin glargine 100 unit/mL subcutaneous solution (Lantus U-100 Insulin) 8 unitsubcut BID 09/08/23 [History Confirmed 09/08/23] Exam Physical Exam Vital Signs: Temp Pulse Resp BP Pulse Ox O2 Del Method 97.4 F L 94 H 16 168/89 H 98 Room Air 09/08/23 06:21 09/08/23 15:00 09/08/23 15:00 09/08/23 15:00 09/08/23 15:00 09/08/23 15:00 Narrative: Constitutional: Well-developed, well nourished, alert and oriented ?3, in no apparent distress. Head: Normocephalic. Eyes pupils equal and round, reactive to light and accommodation. No icterus or conjunctivitis. Ears: Normal appearance. Neck and nodes: negative Mouth, nose and throat: Normal appearance. Chest: Clear to auscultation and percussion. Heart: Regular rhythm without murmurs or gallops. No thrills or heaves. Abdomen: No distention or tympany. Normal bowel sounds. Liver and spleen normal to percussion and palpation. No masses. His abdominal tenderness greatest in the epigastrium. No bruits heard Rectum: Grossly normal. Extremities: No palmar erythema. No Dupuytren's contractures. No edema noted. Neuro: Grossly negative. Skin: Normal Results Labs Labs: Laboratory Results - last 24 hr 09/08/23 09/08/23 09/08/23 06:30 06:30 06:30 Corrected WBC 8.7 Uncorrected WBC Count 8.7 RBC 4.47 Hgb 12.7 L Hct 38.0 L MCV 85.0 MCH 28.4 MCHC 33.5 RDW 13.5 Plt Count 199 MPV 9.0 Neut % (Auto) 63.3 Lymph % (Auto) 21.4 [place] % (Auto) 10.2 Eos % (Auto) 4.4 Baso % (Auto) 0.7 Nucleat RBC Rel Count 0.1 Neut # (Auto) 5.5 Lymph # (Auto) 1.9 [place] # (Auto) 0.9 H Eos # (Auto) 0.4 Baso # (Auto) 0.1 Monocyte Dist Width 19.22 PT 11.5 INR 1.0 PHA Creatinine Clear 33.62 Sodium 139 Potassium Chloride 108 H Carbon Dioxide 21.9 Anion Gap TNP BUN 24 Creatinine 1.85 H Est GFR (CKD-EPI) 37.984 Glucose 142 H Calcium 9.1 Total Bilirubin 0.4 AST 16 ALT 9 Alkaline Phosphatase 96 Lactate Dehydrogenase Troponin I High Sens Total Protein 6.8 Albumin 4.1 Globulin 2.7 Albumin/Globulin Ratio 1.5 Lipase 35.0 09/08/23 09/08/23 09/08/23 06:30 08:06 14:13 Corrected WBC Uncorrected WBC Count RBC Hgb Hct MCV MCH MCHC RDW Plt Count MPV Neut % (Auto) Lymph % (Auto) [place] % (Auto) Eos % (Auto) Baso % (Auto) Nucleat RBC Rel Count Neut # (Auto) Lymph # (Auto) [place] # (Auto) Eos # (Auto) Baso # (Auto) Monocyte Dist Width PT INR PHA Creatinine Clear Sodium Potassium 4.7 Chloride Carbon Dioxide Anion Gap BUN Creatinine Est GFR (CKD-EPI) Glucose Calcium Total Bilirubin AST ALT Alkaline Phosphatase Lactate Dehydrogenase Troponin I High Sens 69.9 H* 66.0 H* Total Protein Albumin Globulin Albumin/Globulin Ratio Lipase 09/08/23 14:13 Corrected WBC Uncorrected WBC Count RBC Hgb Hct MCV MCH MCHC RDW Plt Count MPV Neut % (Auto) Lymph % (Auto) [place] % (Auto) Eos % (Auto) Baso % (Auto) Nucleat RBC Rel Count Neut # (Auto) Lymph # (Auto) [place] # (Auto) Eos # (Auto) Baso # (Auto) Monocyte Dist Width PT INR PHA Creatinine Clear Sodium Potassium Chloride Carbon Dioxide Anion Gap BUN Creatinine Est GFR (CKD-EPI) Glucose Calcium Total Bilirubin AST ALT Alkaline Phosphatase Lactate Dehydrogenase 222 Troponin I High Sens Total Protein Albumin Globulin Albumin/Globulin Ratio Lipase A&P - Gastroenterology Assessment/Plan (1) Abdominal pain: Plan: Patient has severe vascular disease and ischemic bowel cannot be ruled out CT scan shows an atrophic pancreas with enlarged pancreatic duct consistent withchronic pancreatitis. This could be acute exacerbation of chronic pancreatitis despite normal lipase. Gastritis and/or peptic ulcer disease cannot be ruled out. This could also be an acute viral gastroenteritis. Will order a fecal elastase. Plan EGD in the a.m. for further evaluation. Code(s): R10.9 - Unspecified abdominal pain Status: Acute Documented By: Joao Coley MD 09/08/23 1614 Signed By: <Electronically signed by MD Joao Coley> 09/09/23 1203 [facility] Work Phone: [phone] 381-725712-05-2023 [facility] Consult note Author Gabriela Florian [facility] September 08, 2023 3:25pm Note Date/Time September 08, 2023 3 :23pm [facility] [address] [place] [address] Cardiology Consult Note Signed Patient: Dave Lugo MR#: [id number] : 1950 Acct:[id number] Age/Sex: 73 / M Adm Date: 3 Loc: Room: [address] [place] [address] Type: ADM IN Attending Dr: Barbie Osborn MD Copies to: Gabriela Florian MD, [facility] DO Barbie Roca MD~ Cardiology HPI History of Present Illness Consult Date: 09/08/23 Reason for Consult: Uncontrolled hypertension HPI: Mr. Lugo is a 73 year old male who is being seen at request of the hospitalist for management of hypertension. Patient is known to myself. He hashistory of PCI of the RCA in 2006 and 2016, last nuclear stress test 2019 was unremarkable, he is known to have inferior myocardial infarction. Patient has no history of diabetes hypertension hyperlipidemia and stage III chronic kidney disease. He has been in normal state of health until this morning when he woke up with severe abdominal pain. He has dry heaves with no vomiting, he had no chest pain and no palpitations. He had bowel movement 2 days ago. There is no urination problem. He has no diarrhea and no dysuria. He did not have fever orchills. He was found to be severely hypertensive in the emergency department and is to be placed on intravenous calcium channel sima for hypertension control. His pressure remains slightly elevated but he continued to have abdominal pain. His troponin was marginally elevated, chest x-ray was unremarkable EKG was unremarkable. Review of Systems Review of Systems Review of systems: Denies any recent abdominal pain has no dyspnea on exertion or chest pain on exertion. Has been compliant medical therapy. There is no obvious cause of hisabdominal pain. He still has his appendix and has not had any previous surgery on the gallbladder. He has no previous abdominal surgery and did not have any previous intestinal obstruction. All other review of systems unremarkable. [facility] Medical History Chronic kidney disease, stage 3a Diabetes History of cataract HTN (hypertension) Hyperlipemia Kidney stone Myocardial infarct 2 STENTS Poor historian Smoker Surgical History H/O heart artery stent History of back surgery History of cardiac catheterization History of orthopedic surgery 1st rib removed Family History Sister Brain aneurysm Brother Myocardial infarction Mother Diabetes mellitus, type 2 Social History Smoking Status: Current every day smoker Tobacco Type: cigarettes Substance Use Type: None Meds Medications and Allergies Allergies oxycodone [From Percocet] Allergy (Verified 09/08/23 06:25) Swelling of Lip/Tongue/Throat amlodipine Adverse Reaction (Verified 09/08/23 06:25) Edema aspirin Adverse Reaction (Verified 09/08/23 06:25) Swelling of Lip/Tongue/Throat Home Medications nitroglycerin 0.4 mg sublingual tablet 0.4 mg sublingual Q5M PRN Chest Pain 30 days ##30 08/26/17 [Rx Confirmed 09/08/23] metformin 500 mg tablet 500 mg PO BID 08/08/20 [History Confirmed 09/08/23] wauslwrx-corp-pfddirw gluconate 9 mg iron/15 mL (15 mL) oral liquid (Centrum) 15ml PO DAILY 08/08/20 [History Confirmed 09/08/23] atorvastatin 20 mg tablet 20 mg PO QHS 08/09/20 [History Confirmed 09/08/23] ferrous sulfate 325 mg (65 mg iron) tablet 325 mg PO QAM 04/25/21 [History Confirmed 09/08/23] sitagliptin phosphate 100 mg tablet (Januvia) 50 mg PO BID 09/12/21 [History Confirmed 09/08/23] aspirin 81 mg chewable tablet 81 mg PO QAM 09/18/22 [History Confirmed 09/08/23] cyanocobalamin (vitamin B-12) 1,000 mcg tablet (Vitamin B-12) 1,000 mcg PO QAM 09/18/22 [History Confirmed 09/08/23] isosorbide mononitrate 30 mg tablet,extended release 24 hr 30 mg PO QAM 09/18/22[History Confirmed 09/08/23] carvedilol 25 mg tablet 25 mg PO BID.WITH.MEALS 30 days #60 tabs 10/06/22 [Rx Confirmed 09/08/23] cyclobenzaprine 10 mg tablet 10 mg PO QHS PRN back spasms 09/08/23 [History Confirmed 09/08/23] hydralazine 50 mg tablet 50 mg PO BID 09/08/23 [History Confirmed 09/08/23] insulin glargine 100 unit/mL subcutaneous solution (Lantus U-100 Insulin) 8 unitsubcut BID 09/08/23 [History Confirmed 09/08/23] Exam Physical Exam Vital Signs: Temp Pulse Resp BP Pulse Ox O2 Del Method 97.4 F L 94 H 16 168/89 H 98 Room Air 09/08/23 06:21 09/08/23 15:00 09/08/23 15:00 09/08/23 15:00 09/08/23 15:00 09/08/23 15:00 Const General: cooperative and no acute distress Nutritional Appearance: average body habitus Orientation: alert, awake and oriented x3 HEENT Head: normal to inspection Ears: hearing grossly normal bilaterally Nose: external nose normal Face and sinus: normal facial exam Eyes General: appearance normal, both eyes and all related structures Conjunctivae: conjunctivae normal Pupils: PERRL Neck Neck: normal visual inspection, no meningeal signs and trachea midline Neck mass: No Thyroid: thyroid normal Carotids: normal carotid upstroke Resp Effort & Inspection: normal respiratory effort Auscultation: clear to auscultation bilaterally Cardio Jugular venous pressure: no JVD Palpation: normal PMI Rate: regular rate Rhythm: regular rhythm Heart Sounds: S1 normal and S2 normal GI Inspection: normal to inspection Palpation: no hepatosplenomegaly Auscultation: normal bowel sounds Extrem General: no clubbing, cyanosis or edema Results Labs 09/08/23 06:30 09/08/23 08:06 Lab results: Cardiac Enzymes 09/08/23 Range/Units 06:30 AST 16 (13-39) U/L CBC 09/08/23 Range/Units 06:30 RBC 4.47 (3.90-5.60) X10E6/uL Hgb 12.7 L (13.0-17.0) g/dL Hct 38.0 L (38.8-50.0) % Plt Count 199 (150-450) x10E3/uL Neut # (Auto) 5.5 (1.8-7.7) x10E3/uL Lymph # (Auto) 1.9 (1.00-4.8) x10E3/uL [place] # (Auto) 0.9 H (0.0-0.8) x10E3/uL Eos # (Auto) 0.4 (0.0-0.45) x10E3/uL Baso # (Auto) 0.1 (0.0-0.2) x10E3/uL Comprehensive Metabolic Panel 09/08/23 09/08/23 Range/Units 06:30 08:06 Sodium 139 (136-145) mmol/L Potassium 4.7 (3.5-5.1) mmol/L Chloride 108 H (98-107) mmol/L Carbon Dioxide 21.9 (21.0-31.0) mmol/L BUN 24 (7-25) mg/dL Creatinine 1.85 H (0.70-1.30) mg/dL Glucose 142 H (70-100) mg/dL Calcium 9.1 (8.6-10.3) mg/dL AST 16 (13-39) U/L ALT 9 (7-52) U/L Alkaline Phosphatase 96 (34-104) U/L Total Protein 6.8 (6.4-8.9) gm/dL Albumin 4.1 (3.5-5.7) gm/dL Intake and Output 09/07/23 09/08/23 09/08/23 23:59 07:59 15:59 Output Total 1000 / 1000 Balance -1000 / -1000 Output: Urine 1000 / 1000 Other: Weight 74.843 kg 70.1 kg Date of Last Bowel Movement 09/07/23 Patient Weight 09/08/23 23:59 Weight 70.1 kg Lab 09/08/23 06:30 PT 11.5 INR 1.0 A&P - Cardiology (1) Accelerated hypertension: Assessment/Problem Details: This is caused by abdominal pain Plan: Continue intravenous estrogen sima with clevidipine, resume home medications and treat abdominal pain Code(s): I10 - Essential (primary) hypertension (2) Stented coronary artery: Assessment/Problem Details: Last intervention 2017 to the RCA with no indication of recurrent disease Plan: Continue statin and other medications, hold off on the aspirin (3) CKD (chronic kidney disease): Assessment/Problem Details: At baseline Plan: Monitor renal function Code(s): N18.9 - Chronic kidney disease, unspecified (4) Diabetes: Plan: Continue home medications Qualifiers: Diabetes mellitus type: type 2 Code(s): E11.9 - Type 2 diabetes mellitus without complications (5) Dyslipidemia: Plan: Continue home medication Code(s): E78.5 - Hyperlipidemia, unspecified (6) Abdominal pain: Assessment/Problem Details: Patient has bowel sounds with no vomiting, the etiology is unclear but I believegeneral surgery or gastroenterology need to be consulted Code(s): R10.9 - Unspecified abdominal pain Documented By: Gabriela Florian MD, FACC 3 1519 Signed By: <Electronically signed by MD KUO Gabriela Florian> 09/08/23 1525 [facility] Work Phone: 1(753) 547-337812-04-2023 Progress note Author Martínez Briceño [facility] September 08, 2023 3:14pm Note Date/Time September 08, 2023 3 :14pm [facility] [address] [place] [id number] Progress Note Signed Patient: Dave Lugo MR#: [id number] : 1950 Acct:[id number] Age/Sex: 73 / M Adm Date: 3 Loc: Room: [address] [place] [address] Type: ADM IN Attending Dr: Barbie Osborn MD Copies to: ~ Date of Service: 09/08/2023 Progress Narrative Note PROGRESS NOTE Progress Note: Medical record was reviewed and case was discussed with nursing as well as hospitalist. Patient was admitted for hypertensive urgency with abdominal pain. Work-up has been negative to date. Blood pressure is under reasonable control on minimal dose of Cleviprex. Patient is on room air. I will not formally consult but will be available as needed. Documented By: Martínez Briceño MD 3 1513 Signed By: <Electronically signed by MD Martínez Briceño> 09/08/23 1514 [facility] Work Phone: 1([phone] 494-307112-04-2023 History and physical note Author Barbie Osborn [facility] September 08, 2023 2:39pm Note Date/Time September 08, 2023 2 :39pm [facility] [address] [place] [id number] Hospitalist H&P Signed Patient: Dave Lugo MR#: [id number] : 1950 Acct:[id number] Age/Sex: 73 / M Adm Date: 3 Loc: 4C Room: [address] [place] [address] Type: ADM IN Attending Dr: Barbie Osborn MD Copies to: DO Barbie Roca MD~ HPI DATE OF EXAMINATION: 09/08/23 CHIEF COMPLAINT: Abdominal pain. HISTORY OF PRESENT ILLNESS: Patient is a pleasant 73-year-old male with past medical history of coronary disease status post PCI to RCA in 2017, diabetes mellitus type 2, hypertension and other medical comorbidities. Patient presented to emergency room with complaint of severe mid abdominal pain. He woke up around 3 AM in the morning with severe upper mid abdominal pain radiating to back. Pain was 10 out of 10 intensity and associated with dry heaves. He denies recent infection, fever, chills, chest pain, shortness of breath headache or dizziness. As per the daughter he did have some stomach upset for last few days and appears to be having constipation intermittently. Denies prior history of peptic ulcer disease or acid reflux. In the emergency room noted to have blood pressure in 200s systolic and has been started on clevidipine drip and admitted to ICU. Theemergency room CT abdomen/pelvis was negative for dissection, bowel obstruction and showing mild aortic, iliac and visceral artery plagues with some associated stenosis. On examination patient continues to complain of abdominal pain with tenderness in epigastric region. No signs of acute abdomen. His initial troponin came back at 69.9. Review of Systems Review of Systems All other systems reviewed & are negative unless noted below or in HPI [facility] Medical History Chronic kidney disease, stage 3a Diabetes History of cataract HTN (hypertension) Hyperlipemia Kidney stone Myocardial infarct 2 STENTS Poor historian Smoker Surgical History H/O heart artery stent History of back surgery History of cardiac catheterization History of orthopedic surgery 1st rib removed Family History Sister Brain aneurysm Brother Myocardial infarction Mother Diabetes mellitus, type 2 Social History Smoking Status: Current every day smoker Tobacco Type: cigarettes Substance Use Type: None Meds Medications and Allergies Allergies oxycodone [From Percocet] Allergy (Verified 09/08/23 06:25) Swelling of Lip/Tongue/Throat amlodipine Adverse Reaction (Verified 09/08/23 06:25) Edema aspirin Adverse Reaction (Verified 09/08/23 06:25) Swelling of Lip/Tongue/Throat Home Medications nitroglycerin 0.4 mg sublingual tablet 0.4 mg sublingual Q5M PRN Chest Pain 30 days ##30 08/26/17 [Rx Confirmed 12/31/22] metformin 500 mg tablet 500 mg PO BID 08/08/20 [History Confirmed 12/31/22] kmayfhsm-xpdp-oontjbp gluconate 9 mg iron/15 mL (15 mL) oral liquid (Centrum) 15ml PO DAILY 08/08/20 [History Confirmed 12/31/22] atorvastatin 20 mg tablet 20 mg PO QHS 08/09/20 [History Confirmed 12/31/22] ferrous sulfate 325 mg (65 mg iron) tablet 325 mg PO QAM 04/25/21 [History Confirmed 12/31/22] sitagliptin phosphate 100 mg tablet (Januvia) 50 mg PO BID 09/12/21 [History Confirmed 12/31/22] aspirin 81 mg chewable tablet 81 mg PO QAM 09/18/22 [History Confirmed 12/31/22] cyanocobalamin (vitamin B-12) 1,000 mcg tablet (Vitamin B-12) 1,000 mcg PO QAM 09/18/22 [History Confirmed 12/31/22] isosorbide mononitrate 30 mg tablet,extended release 24 hr 30 mg PO QAM 09/18/22[History Confirmed 12/31/22] cyclobenzaprine 10 mg tablet 10 mg PO TID PRN back spasms #40 tabs 10/05/22 [Rx Confirmed 12/31/22] prednisone 10 mg tablets in a dose pack 1 dose pk PO PER PKG DIR #30 tabs 10/05/22 [Rx Confirmed 12/31/22] carvedilol 25 mg tablet 25 mg PO BID.WITH.MEALS 30 days #60 tabs 10/06/22 [Rx] hydralazine 50 mg tablet 100 mg PO BID 30 days #120 tabs 10/06/22 [Rx Confirmed 12/31/22] insulin glargine 100 unit/mL subcutaneous solution (Lantus U-100 Insulin) 10 unit (0.1 mL) subcut QAM #10 mL 10/06/22 [Rx Confirmed 12/31/22] hydrocodone 5 mg-acetaminophen 325 mg tablet 1 tab PO Q6H PRN pain 3 days #10 tabs 07/22/23 [Rx] Exam Physical Exam Vital Signs: Temp Pulse Resp BP Pulse Ox O2 Del Method 97.4 F L 92 H 20 160/81 H 96 Room Air 09/08/23 06:21 09/08/23 13:00 09/08/23 12:58 09/08/23 13:10 09/08/23 12:58 09/08/23 13:00 Const General: cooperative Orientation: alert, awake and oriented x3 HEENT Head: normal to inspection, no palpable skull fracture, normocephalic and atraumatic Eyes Pupils: PERRL EOM: EOM intact bilaterally and No nystagmus Neck Neck: normal visual inspection and full ROM Resp Effort & Inspection: normal respiratory effort and able to speak in complete sentences Auscultation: no rales, no rhonchi and no wheezes Cardio Rate: regular rate Rhythm: regular rhythm Heart Sounds: S1 normal and S2 normal GI Inspection: non-distended Palpation: soft, not firm, no guarding and tender (Mild epigastric and upper mid no signs of acute peritonitis) with no rebound tenderness Neuro General: patient alert, patient awake, patient oriented x3, moves all extremities, no focal motor deficits and CN's II-XI intact bilaterally Cognition: normal cognition Speech: speech normal Extrem General: no clubbing, cyanosis or edema and no calf tenderness Results Lab Results Labs: Laboratory Last Values Corrected WBC 8.7 X10E3/uL (4.1-10.5) 09/08/23 06:30 Uncorrected WBC Count 8.7 x10E3/uL (4.1-10.5) 09/08/23 06:30 RBC 4.47 X10E6/uL (3.90-5.60) 09/08/23 06:30 Hgb 12.7 g/dL (13.0-17.0) L 09/08/23 06:30 Hct 38.0 % (38.8-50.0) L 09/08/23 06:30 MCV 85.0 fl (83.5-101) 09/08/23 06:30 MCH 28.4 pg (27.5-35.2) 09/08/23 06:30 MCHC 33.5 g/dL (32.5-35.6) 09/08/23 06:30 RDW 13.5 % (12.0-14.8) 09/08/23 06:30 Plt Count 199 x10E3/uL (150-450) 09/08/23 06:30 MPV 9.0 fl (6.6-10.1) 09/08/23 06:30 Neut % (Auto) 63.3 % (.) 09/08/23 06:30 Lymph % (Auto) 21.4 % (.) 09/08/23 06:30 [place] % (Auto) 10.2 % (.) 09/08/23 06:30 Eos % (Auto) 4.4 % (.) 09/08/23 06:30 Baso % (Auto) 0.7 % (.) 09/08/23 06:30 Nucleat RBC Rel Count 0.1 /100 WBC (0-0.5) 09/08/23 06:30 Neut # (Auto) 5.5 x10E3/uL (1.8-7.7) 09/08/23 06:30 Lymph # (Auto) 1.9 x10E3/uL (1.00-4.8) 09/08/23 06:30 [place] # (Auto) 0.9 x10E3/uL (0.0-0.8) H 09/08/23 06:30 Eos # (Auto) 0.4 x10E3/uL (0.0-0.45) 09/08/23 06:30 Baso # (Auto) 0.1 x10E3/uL (0.0-0.2) 09/08/23 06:30 Monocyte Dist Width 19.22 % (0.00-20.00) 09/08/23 06:30 PT 11.5 Seconds (9.0-12.9) 09/08/23 06:30 INR 1.0 09/08/23 06:30 PHA Creatinine Clear 33.62 09/08/23 06:30 Sodium 139 mmol/L (136-145) 09/08/23 06:30 Potassium 4.7 mmol/L (3.5-5.1) 09/08/23 08:06 Chloride 108 mmol/L (98-107) H 09/08/23 06:30 Carbon Dioxide 21.9 mmol/L (21.0-31.0) 09/08/23 06:30 Anion Gap TNP 09/08/23 06:30 BUN 24 mg/dL (7-25) 09/08/23 06:30 Creatinine 1.85 mg/dL (0.70-1.30) H 09/08/23 06:30 Est GFR (CKD-EPI) 37.984 mL/Min 09/08/23 06:30 Glucose 142 mg/dL (70-100) H 09/08/23 06:30 Calcium 9.1 mg/dL (8.6-10.3) 09/08/23 06:30 Total Bilirubin 0.4 mg/dl (0.3-1.0) 09/08/23 06:30 AST 16 U/L (13-39) 09/08/23 06:30 ALT 9 U/L (7-52) 09/08/23 06:30 Alkaline Phosphatase 96 U/L (34-104) 09/08/23 06:30 Troponin I High Sens 69.9 pg/mL (0.0-20.0) H* 09/08/23 06:30 Total Protein 6.8 gm/dL (6.4-8.9) 09/08/23 06:30 Albumin 4.1 gm/dL (3.5-5.7) 09/08/23 06:30 Globulin 2.7 gm/dL 09/08/23 06:30 Albumin/Globulin Ratio 1.5 09/08/23 06:30 Lipase 35.0 U/L (11.0-82.0) 09/08/23 06:30 Assessment & Plan Assessment/Plan (1) Hypertensive emergency: (2) Elevated troponin: (3) Abdominal pain: (4) CKD (chronic kidney disease) stage 3, GFR 30-59 ml/min: (5) Diabetes: (6) CAD (coronary artery disease): Plan Patient history of diabetes, chronic disease and coronary disease presented to ER with sudden onset of severe abdominal pain. In the ER CT abdomen/pelvis did not show dissection or abdominal normality. No vessel occlusion seen as well and noted to have mild aortic, iliac and vessel artery plaques with some associated stenosis. Noted to have elevated blood pressure and patient has been admitted to ICU for hypertensive emergency currently on clevidipine drip. Possibility of acute coronary syndrome with atypical pain cannot be ruled out. Will consult cardiology and trend troponin. Possibility of gastritis/peptic ulcer disease also in differential although patient denies having prior history of peptic ulcer or heartburn. I will start him on IV PPI. Check LDH level. Keep him n.p.o. and hold oral hypoglycemic agent. Resume home medications once reconciled. DVT prophylaxis. IP vs OBS Justification Based on differential dx, clinical care plan, and risk of adverse events, if untreated, in my clinical judgement this patient requires an acute care setting as: INPATIENT because of an expectation of an over 2 midnight stay. Estimated length of stay (# of days): 3 Documented By: Barbie Osborn MD 09/08/23 1427 Signed By: <Electronically signed by Barbie Osborn MD> 09/08/23 1439 [facility] Work Phone: [phone]) 994-420711-16-2023 Evaluation note* Encounter Date Diagnosis Assessment Notes Treatment Notes Treatment Clinical Notes Aug, Sprain of other specified parts of right knee, subsequent encounter (ICD-10 - S83.8X1D) Patient continues to have pain, offered to order MRI. Patient defers MRI at this time as pain is tolerable Examination and assessment of this patient was performed by Lyudmila White NP and patient will continue with the treatment plan per Dr. Santo, who initiated this treatment plan. Dr. Santo is present in the office today and providing supervision. Aug, Displaced fracture of neck of fifth metacarpal bone, right hand, subsequent encounter for fracture with routine healing (ICD-10 - S62.336D) Patient may begin to wean from splint and slowly progress activity [facility] Other 10-26-2023 Evaluation note* Encounter Date Diagnosis Assessment Notes Treatment Notes Treatment Clinical Notes Jul, Sprain of other specified parts of right knee, subsequent encounter (ICD-10 - S83.8X1D) As patient continues to have pain with ambulation, discussed obtaining an MRI to assess for meniscal tear vs stress fracture, or allowing a couple more weeks to hopefully improve. Patient opts to give it more time. Instructed on gentle motion exercises. Advised to limit weight bearing as needed. If no improvement, may call in to have MRI ordered. Jul, Displaced fracture of neck of fifth metacarpal bone, right hand, subsequent encounter for fracture with routine healing (ICD-10 - S62.336D) Radiographs reviewed with patient. He is progressing well. Continue to avoid strenuous use of the hand and continue use of the splint for activities. Call with questions/concerns. [facility] Other 10-19-2023 Evaluation note* Encounter Date Diagnosis Assessment Notes Treatment Notes Treatment Clinical Notes Jul, Sprain of other ligament of right knee, initial encounter (ICD-10 - S83.8X1A) Extensive discussion about current condition and treatment options available. We will treat this as a knee strain for now. Discontinue use of knee immobilizer. We will begin gentle motion and strength exercise with hopes that the condition will improve with conservative measures. If pain persists and function is not improving we will need to consider MRI to assess for meniscal injury or other intra-articular injury. Patient instructed on icing and elevation. Jul, Closed displaced fracture of neck of fifth metacarpal bone of right hand, initial encounter (ICD-10 - S62.336A) Extensive discussion about current condition and treatment options available. Patient has sustained a 5th metacarpal fracture. This is stable and we will treat nonoperatively at this time. Patient was placed in a TKO splint and instructed to be nonweight bearing on the affected hand. Discussed this can take at least 6 weeks to heal. Instructed on gentle motion of the fingers. Advised patient ice and elevate to decrease pain and swelling. [facility] Other 09-13-2023 Evaluation note* Encounter Date Diagnosis Assessment Notes Treatment Notes Treatment Clinical Notes Jun, Spinal stenosis at L4-L5 level (ICD-10 - M48.061) Mr Lugo is doing well Status post 9 months PLIF. Xray reviewed which shows good hardware placement and bony alignment. Advised to follow up in 3 months. Jun, History of fusion of lumbar spine (ICD-10 - Z98.1) [facility] Other 08-28-2023 Evaluation note* Encounter Date Diagnosis Assessment Notes Treatment Notes Treatment Clinical Notes May, Type 2 diabetes mellitus with diabetic chronic kidney disease (ICD-10 - E11.22) over all doing well. continue as is. no lows. May, Stage 3b chronic kidney disease (CKD) (ICD-10 - N18.32) up to date with labs. May, Other encouraged flu, covid booster, RSV vaccines at pharmacy this fall. [facility] Other 08-17-2023 History general Narrative - Reported* Type Description Date Medical History High blood pressure Medical History T2DM Medical History ND Medical History 05/22 EGD and Colonos copy-2 cm tubular adenoma removed Medical History injections - back pain Medical History anemia Medical History Arthritis Medical History cataracts Medical History heart disease Medical History high cholesterol Medical History thyroid disease Medical History kidney stones Surgical History neck Surgical History first rib removed Surgical History lower back - injections Surgical History cardiac stents - Dr. Florian Surgical History Colonoscopy 09/12/21 Surgical History lumbar fusion Hospitalization History heart attack 08/24/20 Hospitalization History see above [facility] Other 08-17-2023 History general Narrative - Reported* Type Description Date Medical History High blood pressure Medical History T2DM Medical History ND Medical History 05/22 EGD and Colonos copy-2 cm tubular adenoma removed Medical History injections - back pain Medical History anemia Medical History Arthritis Medical History cataracts Medical History heart disease Medical History high cholesterol Medical History thyroid disease Medical History kidney stones Surgical History neck Surgical History first rib removed Surgical History lower back - injections Surgical History cardiac stents - Dr. Florian Surgical History Colonoscopy 09/12/21 Surgical History lumbar fusion Hospitalization History heart attack 08/24/20 Hospitalization History see above Hospitalization History stomach pain [facility] [place] [facility] Other 08-01-2023 Evaluation note* Encounter Date Diagnosis Assessment Notes Treatment Notes Treatment Clinical Notes May, Spondylolisthesis, lumbar region (ICD-10 - M43.16) I reviewed the previous xray of the lumbar spine which shows good hardware placement, L4-5 bony alignment is stable, no hypermobility with flexion extension views. Education completed to continue with strengthening and flexibility exercises along with advance lifting and postural training. Use of LSO as needed. WIll order Xray lumbar 6 view. Pharmacological management will continue with medication as prescribed patient has significant history of allergies in which I discussed will order lidocaine patch and prednisone. Follow up in 3 months. May, Spinal stenosis at L4-L5 level (ICD-10 - M48.061) May, Spondylosis of lumbar spine (ICD-10 - M47.816) [facility] Other 03-22-2023 Evaluation note* Encounter Date Diagnosis Assessment Notes Treatment Notes Treatment Clinical Notes Dec, Spondylolisthesis , lumbar region (ICD-10 - M43.16) Dec, S/P lumbar fusion (ICD-10 - Z98.1) I independently reviewed the xray of the lumbar spine which shows good hardware placement, L4-5 bony alignment is stable, no hypermobility with flexion extension views. Education completed to continue with strengthening and flexibility exercises along with advance lifting and postural training. Use of LSO as needed. Follow up in 6 months. [facility] Other 02-20-2023 Evaluation note* Encounter Date Diagnosis Assessment Notes Treatment Notes Treatment Clinical Notes Nov, Lumbar radiculopathy (ICD-10 - M54.16) doing much better since surgery. Nov, Type 2 diabetes mellitus with diabetic chronic kidney disease (ICD-10 - E11.22) 1 month too early for a1c, checking sugars which have been good. will recheck in 3 months-he is in agreement. [facility] Other 01-12-2023 Evaluation note* Encounter Date Diagnosis Assessment Notes Treatment Notes Treatment Clinical Notes Oct, Spondylolisthesis, lumbar region (ICD-10 - M43.16) Doing well s/p Post Op 2 wk Plif L4-5/ 10-02-2022, presents for follow up and suture removal. States continues to have spotty parasesia. Advised of healing and that may take time. 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 [address] [place] [address] Hospitalist Progress Note Signed Patient: Dave Lugo MR#: [id number] : 1950 Acct:[id number] Age/Sex: 72 / M Adm Date: 2 Loc: 4N Room: 0G5535-7 Type: REG SDC Attending Dr: Clemente Miller MD Copies to: ~ Date of Service: 10/06/2022 Subjective Subjective Narrative: Originally plans were in place for the patient to go to the acute inpatient rehabilitation unit on . However the patient tells me that today on October 06 his insurance switches to [employer]. This morning neurosurgery with Dr. Miller felt that the patient was Goodenough to be able to go home. His blood sugars have remained elevated but finally are improving with long- acting and short acting insulin. He says that he would run out of his Lantus athome so I did provide prescription so that he will have some more Lantus until he could call his primary care provider. I do not think that he understands howto use short acting insulin to be able to use carb counting or sliding scale insulin at home for hyperglycemia from the steroids. We discussed his elevated blood pressure. While he was here we had gone up on doses of hydralazine and Coreg and also added Lasix and spironolactone not much improvement in his blood pressure. He is agreeable to taking higher doses of blood pressure medicines. I told him to check his blood pressures on his home blood pressure cuff and write these down and take them to his primary care provider in the near future. He remained symptom free of new symptomatology here in the hospital. No fevers chills. No headache. No double vision. No difficulty swallowing. No heartburn or acid reflux. No diarrhea or constipation. Opioid-induced constipation seems to be well controlled on the stool softeners he has while he is here. No chest pain or pressure. No cough or expectoration any sputum. No pain or swelling in his calves or lower extremities at all. Exam Physical Exam Vital Signs: Temp Pulse Resp BP Pulse Ox O2 Del Method O2 Flow Rate 98.3 F 80 18 158/82 H 98 Room Air 8 10/06/22 08:00 10/06/22 08:00 10/06/22 08:00 10/06/22 08:00 10/06/22 08:00 10/06/22 08:00 10/02/22 10:14 Narrative: GEN: Reclining in bed. Looks very nice and nontoxic and much more comfortable than he did the last few days Heart: Regular rate and rhythm, no murmurs, rubs, or gallops. Abdomen: Soft, normal bowel sounds, no rigidity, guarding, or acute peritoneal signs. Extremities: No swelling or cords in the calves bilaterally, no edema in the ankles bilaterally. Skin: No systemic rashes or lesions. Objective Lab Results 10/04/22 07:09 10/06/22 04:46 Meds Allergies and Active Meds Allergies oxycodone [From Percocet] Allergy (Verified 10/02/22 08:25) Swelling of Lip/Tongue/Throat amlodipine Adverse Reaction (Verified 10/02/22 06:09) Edema aspirin Adverse Reaction (Verified 10/02/22 06:09) Swelling of Lip/Tongue/Throat Active Meds: Active Medications Generic Name Dose Route Start Last Admin Trade Name Freq PRN Reason Stop Dose Admin Acetaminophen 650 mg 10/02/22 14:13 Acetaminophen 325 Mg Tablet PO 10/02/23 14:12 Q4H PRN Mild Pain Hydrocodone Bitart/Acetaminophen 2 tab 10/02/22 14:13 10/02/22 15:13 Hydrocodone/Acetaminophen 5-325 Mg Tablet PO 2 tab Q6H PRN Administration Pain Scale 6 - 10 Hydrocodone Bitart/Acetaminophen 1 tab 10/02/22 14:13 10/02/22 21:30 Hydrocodone/Acetaminophen 5-325 Mg Tablet PO 1 tab Q6H PRN Administration Pain Scale 1 - 5 Al Hydrox/Mg Hydrox/Simethicone 30 ml 10/02/22 14:13 Mag Hydrox/Al Hydrox/Simeth 30 Ml Udc PO 10/02/23 14:12 Q4H PRN Heartburn Aspirin 81 mg 10/03/22 09:00 10/06/22 08:42 Aspirin 81 Mg Tab.Chew PO 10/03/23 08:59 81 mg QAM VANE Administration Atorvastatin Calcium 20 mg 10/02/22 22:00 10/05/22 21:01 Atorvastatin 20 Mg Tablet PO 10/02/23 21:59 20 mg QHS VANE Administration Carvedilol 25 mg 10/05/22 08:00 10/06/22 08:42 Carvedilol 25 Mg Tablet PO 10/05/23 07:59 25 mg BID.WITH.MEALS VANE Administration Cyanocobalamin 1,000 mcg 10/03/22 09:00 10/06/22 08:42 Cyanocobalamin 1,000 Mcg Tablet PO 10/03/23 08:59 1,000 mcg QAM VANE Administration Cyclobenzaprine HCl 10 mg 10/02/22 22:00 10/05/22 21:01 Cyclobenzaprine 10 Mg Tablet PO 10/02/23 21:59 10 mg QHS VANE Administration Cyclobenzaprine HCl 10 mg 10/02/22 14:13 Cyclobenzaprine 10 Mg Tablet PO 10/02/23 14:12 Q8HR PRN Muscle Spasm Dextrose 0 gm 10/02/22 14:28 Dextrose 20 % In Water 10 Gm/50 Ml Syringe IV-PUSH 10/02/23 14:27 PRN PRN Hypoglycemia Diphenhydramine HCl 25 mg 10/02/22 14:13 Diphenhydramine 25 Mg Capsule PO 10/02/23 14:12 Q6H PRN Itching Famotidine 20 mg 10/02/22 21:00 10/05/22 21:01 Famotidine 20 Mg Tablet PO 10/02/23 20:59 20 mg QPM VANE Administration Ferrous Sulfate 324 mg 10/03/22 09:00 10/03/22 09:07 Ferrous Sulfate 324 Mg Tablet.Dr PO 10/03/23 08:59 324 mg QAM VANE Administration Furosemide 20 mg 10/05/22 08:00 10/06/22 08:42 Furosemide 20 Mg Tablet PO 10/05/23 07:59 20 mg DAILY.8A VANE Administration Glucose 0 gm 10/02/22 14:13 Dextrose 40% Gel 15 Gm Tube PO 10/02/23 14:12 PRN PRN Hypoglycemia Hydralazine HCl 10 mg 10/03/22 09:36 Hydralazine 20 Mg/Ml Vial IV-PUSH 10/03/23 09:35 Q4H PRN Hypertension Hydralazine HCl 100 mg 10/04/22 09:00 10/06/22 08:44 Hydralazine 50 Mg Tablet PO 10/04/23 08:59 100 mg BID VANE Administration Hydromorphone HCl 2 mg 10/02/22 14:13 10/02/22 23:30 Hydromorphone 1 Mg/Ml Syringe IV-PUSH 2 mg Q2H PRN Administration Pain Hydromorphone HCl 1 mg 10/02/22 14:13 10/02/22 17:34 Hydromorphone 1 Mg/Ml Syringe IV-PUSH 1 mg Q2H PRN Administration Pain Insulin Aspart 0 units 10/02/22 14:13 10/06/22 08:38 Insulin Aspart 300 Units/3 Ml Insuln.Pen SUBCUT 10/02/23 14:12 Not Given TID.WM.HS [facility] Protocol Insulin Glargine 10 units 10/06/22 09:00 10/06/22 08:46 Insulin Glargine 300 Units/3 Ml Insuln.Pen SUBCUT 10/06/23 08:59 10 units DAILY VANE Administration Isosorbide Mononitrate 30 mg 10/03/22 09:00 10/06/22 08:42 Isosorbide Mononitrate 24hr Er 30 Mg Tab.Er.24h PO 10/03/23 08:59 30 mg QAM VANE Administration Linagliptin 5 mg 10/03/22 09:00 10/06/22 08:42 Linagliptin 5 Mg Tablet PO 10/03/23 08:59 5 mg DAILY VANE Administration Magnesium Hydroxide 30 ml 10/02/22 14:13 Magnesium Hydroxide Susp 30 Ml Udc PO 10/02/23 14:12 HS PRN Constipation Metformin HCl 500 mg 10/02/22 21:00 10/06/22 08:42 Metformin 500 Mg Tablet PO 10/02/23 20:59 500 mg BID VANE Administration Metoprolol Tartrate 5 mg 10/03/22 09:36 Metoprolol Tartrate 5 Mg/5 Ml Vial IV-PUSH 10/03/23 09:35 Q4H PRN Blood Pressure Nitroglycerin 0.4 mg 10/02/22 14:13 Nitroglycerin 0.4 Mg Tab.Subl SUBLINGUAL 10/02/23 14:12 Q5MIN.X3 PRN Chest Pain Ondansetron HCl 4 mg 10/02/22 14:13 10/03/22 05:43 Ondansetron 4 Mg/2 Ml Vial IV-PUSH 10/02/23 14:12 4 mg Q6H PRN Administration Nausea And Vomiting Promethazine HCl 12.5 mg 10/03/22 08:45 10/03/22 09:05 Promethazine 25 Mg/Ml Vial IV-PUSH 10/03/23 08:44 12.5 mg Q6H PRN Administration Nausea And Vomiting Senna/Docusate Sodium 2 tab 10/02/22 21:00 10/06/22 08:42 Sennosides/Docusate 8.6-50mg 1 Tab Tablet PO 10/02/23 20:59 2 tab BID VANE Administration Sodium Chloride 10 ml 10/03/22 08:45 10/03/22 09:05 Sodium Chloride 0.9 % 10 Ml Vial.Pf INJECTION 10/03/23 08:44 10 ml PRN PRN Administration Promethazine Dilution Spironolactone 50 mg 10/04/22 09:00 10/06/22 08:45 Spironolactone 50 Mg Tablet PO 10/04/23 08:59 50 mg DAILY VANE Administration A&P - Hospitalist Assessment/Plan (1) Accelerated hypertension: (2) Diabetes mellitus with hyperglycemia: (3) Nausea: (4) CAD (coronary artery disease): (5) Hyperlipemia: (6) Leg weakness, bilateral: Plan Plan: Prescription sent to pharmacy ([facility]) for the following: Lantus, until he can get a new prescription from his primary care provider. Coreg at a dose to increased from 12.5 p.o. twice daily that he took at home to 25 mg p.o. twice daily that he took here for a few days. Hydralazine, increased from 50 mg p.o. twice daily at home that he took and got increased to 100 mg p.o. twice daily while he was here for a few days. Patient was otherwise cleared for discharge by neurosurgery. Documented By: Kali Isaac DO [id number] Signed By: <Electronically signed by Kali Isaac, > 10/06/22 1431 [facility] Work Phone: [phone] 947-758701-01-2023 Progress note Author Clemente Miller [facility] October 06, 2022 8:55am Note Date/Time October 06, 2022 8: 55am [facility] [address] [place] [address] Neurosurgery Progress Note Signed Patient: Dave Lugo MR#: [id number] : 1950 Acct:[id number] Age/Sex: 72 / M Adm Date: 2 Loc: 4N Room: 3R2152-8 Type: REG [facility] Attending Dr: Clemente Miller MD Copies to: ~ Date of Service: 10/06/2022 Subjective Subjective HPI: Patient continue with hypertension. Nauseous is gone. States preoperative left leg better but continues to have back pain and difficulty with turning and moving. Exam Physical Exam Vital Signs: Temp Pulse Resp BP Pulse Ox O2 Del Method O2 Flow Rate 98.3 F 80 18 158/82 H 98 Room Air 8 10/06/22 08:00 10/06/22 08:00 10/06/22 08:00 10/06/22 08:00 10/06/22 08:00 10/06/22 08:00 10/02/22 10:14 Narrative: Lower extremity strength at baseline Dressing dry Patient alert and cooperative Sitting comfortable in a chair Objective Lab Results Most Recent Labs: 10/06/22 08:27: POC Glucose 98 10/06/22 04:46: PHA Creatinine Clear 38.38, Sodium 135 L, Potassium 4.0, Chloride 105, Carbon Dioxide 22.8, Anion Gap 11.2, BUN 49 H, Creatinine 1.57 H, Est GFR ( Amer) 53, Est GFR (Non-Af Amer) 44, Glucose 114 H, Calcium 8.5 10/06/22 01:44: POC Glucose 198, POC Glucose Comment Glu2: cleaned meter 10/05/22 20:39: POC Glucose 180, POC Glucose Comment Glu2: cleaned meter 10/05/22 16:03: POC Glucose 166 10/05/22 11:20: POC Glucose 194 Assessment/Plan Assessment/Plan (1) Lumbar stenosis with neurogenic claudication: Plan: Postoperative day #4 the patient actually looks quite good he is ambulatory he can use steps getting up and down out of a chair is a little difficult but doable. Dressing remains dry I will discharge him to home. Full home-going instructions given. Code(s): M48.062 - Spinal stenosis, lumbar region with neurogenic claudication Status: Acute (2) Hyperlipemia: Code(s): E78.5 - Hyperlipidemia, unspecified Status: Acute Documented By: Clemente Miller MD 10/06/22 0853 Signed By: <Electronically signed by MD Clemente Miller> 10/06/22 0855 [facility] Work Phone: [phone] 100-792412-31-2022 Progress note Author Roberto Cullen [facility] October 05, 2022 11:34am Note Date/Time October 05, 2022 11:34am [facility] [address] [place] [address] Hospitalist Progress Note Signed Patient: Dave Lugo MR#: [id number] : 1950 Acct:[id number] Age/Sex: 72 / M Adm Date: 2 Loc: 4N Room: [address] [place] [address] Type: REG SDC Attending Dr: Clemente Miller MD Copies to: ~ Date of Service: 10/05/2022 Subjective Subjective Narrative: Patient interviewed and examined at bedside, resting comfortably. Denies any complaints of nausea. I did discuss with him that his blood pressure and blood glucose were elevated due to the Decadron and that the numbers today look very good. His blood pressure still slightly elevated at 1 50-1 70 systolic however he states that they are usually within normal range of [birth year]26/1929 at home, knowing that he is finishing the Decadron today or tomorrow I am apprehensive toadd more medicine today to increase his hypertension management at risk of dropping too low when Decadron is finished. I did discuss with him, patient is in agreement. He worked well with therapy today, stated he was able to walk up and down the smith and was even able to do some stairs. Exam Physical Exam Vital Signs: Temp Pulse Resp BP Pulse Ox O2 Del Method O2 Flow Rate 97.4 F L 86 16 151/86 H 99 Room Air 8 10/05/22 11:18 10/05/22 11:18 10/05/22 11:18 10/05/22 11:18 10/05/22 11:18 10/05/22 11:18 10/02/22 10:14 Narrative: General: Awake alert, no acute distress. Back brace is currently on the table. HEENT: head atraumatic, normocephalic, moist mucous membranes, normal nose and ears, no throat lesions, normal conjunctiva Neck: supple no masses, no lymphadenopathy CVS: regular rate and rhythm, no murmurs or gallops Respiratory: clear to auscultation bilaterally, no wheezing or crackles, symmetric expansion GI: soft, nondistended, nontender, positive bowel sounds with no organomegaly Extremity: moves all extremities, no restrictions of movements, no calf tenderness, no edema Neuro: AOx3, CN II-VII intact. Moves all extremities in all planes of motion. Skin: dry, intact no rashes or lesions Objective Lab Results 10/04/22 07:09 10/05/22 05:45 Meds Allergies and Active Meds Allergies oxycodone [From Percocet] Allergy (Verified 10/02/22 08:25) Swelling of Lip/Tongue/Throat amlodipine Adverse Reaction (Verified 10/02/22 06:09) Edema aspirin Adverse Reaction (Verified 10/02/22 06:09) Swelling of Lip/Tongue/Throat Active Meds: Active Medications Generic Name Dose Route Start Last Admin Trade Name Freq PRN Reason Stop Dose Admin Acetaminophen 650 mg 10/02/22 14:13 Acetaminophen 325 Mg Tablet PO 10/02/23 14:12 Q4H PRN Mild Pain Hydrocodone Bitart/Acetaminophen 2 tab 10/02/22 14:13 10/02/22 15:13 Hydrocodone/Acetaminophen 5-325 Mg Tablet PO 2 tab Q6H PRN Administration Pain Scale 6 - 10 Hydrocodone Bitart/Acetaminophen 1 tab 10/02/22 14:13 10/02/22 21:30 Hydrocodone/Acetaminophen 5-325 Mg Tablet PO 1 tab Q6H PRN Administration Pain Scale 1 - 5 Al Hydrox/Mg Hydrox/Simethicone 30 ml 10/02/22 14:13 Mag Hydrox/Al Hydrox/Simeth 30 Ml Udc PO 10/02/23 14:12 Q4H PRN Heartburn Aspirin 81 mg 10/03/22 09:00 10/05/22 08:45 Aspirin 81 Mg Tab.Chew PO 10/03/23 08:59 81 mg QAM VANE Administration Atorvastatin Calcium 20 mg 10/02/22 22:00 10/04/22 21:04 Atorvastatin 20 Mg Tablet PO 10/02/23 21:59 20 mg QHS VANE Administration Carvedilol 25 mg 10/05/22 08:00 10/05/22 08:45 Carvedilol 25 Mg Tablet PO 10/05/23 07:59 25 mg BID.WITH.MEALS VANE Administration Cyanocobalamin 1,000 mcg 10/03/22 09:00 10/05/22 08:45 Cyanocobalamin 1,000 Mcg Tablet PO 10/03/23 08:59 1,000 mcg QAM VANE Administration Cyclobenzaprine HCl 10 mg 10/02/22 22:00 10/04/22 21:03 Cyclobenzaprine 10 Mg Tablet PO 10/02/23 21:59 10 mg QHS VANE Administration Cyclobenzaprine HCl 10 mg 10/02/22 14:13 Cyclobenzaprine 10 Mg Tablet PO 10/02/23 14:12 Q8HR PRN Muscle Spasm Dexamethasone 1 mg 10/02/22 20:21 10/05/22 08:45 Dexamethasone 4 Mg Tablet PO 10/05/22 14:12 1 mg QID VANE Administration Taper Dextrose 0 gm 10/02/22 14:28 Dextrose 20 % In Water 10 Gm/50 Ml Syringe IV-PUSH 10/02/23 14:27 PRN PRN Hypoglycemia Diphenhydramine HCl 25 mg 10/02/22 14:13 Diphenhydramine 25 Mg Capsule PO 10/02/23 14:12 Q6H PRN Itching Famotidine 20 mg 10/02/22 21:00 10/04/22 21:03 Famotidine 20 Mg Tablet PO 10/02/23 20:59 20 mg QPM VANE Administration Ferrous Sulfate 324 mg 10/03/22 09:00 10/03/22 09:07 Ferrous Sulfate 324 Mg Tablet.Dr PO 10/03/23 08:59 324 mg QAM VANE Administration Furosemide 20 mg 10/05/22 08:00 10/05/22 08:45 Furosemide 20 Mg Tablet PO 10/05/23 07:59 20 mg DAILY.8A VANE Administration Glucose 0 gm 10/02/22 14:13 Dextrose 40% Gel 15 Gm Tube PO 10/02/23 14:12 PRN PRN Hypoglycemia Hydralazine HCl 10 mg 10/03/22 09:36 Hydralazine 20 Mg/Ml Vial IV-PUSH 10/03/23 09:35 Q4H PRN Hypertension Hydralazine HCl 100 mg 10/04/22 09:00 10/05/22 08:45 Hydralazine 50 Mg Tablet PO 10/04/23 08:59 100 mg BID VANE Administration Hydromorphone HCl 2 mg 10/02/22 14:13 10/02/22 23:30 Hydromorphone 1 Mg/Ml Syringe IV-PUSH 2 mg Q2H PRN Administration Pain Hydromorphone HCl 1 mg 10/02/22 14:13 10/02/22 17:34 Hydromorphone 1 Mg/Ml Syringe IV-PUSH 1 mg Q2H PRN Administration Pain Insulin Aspart 0 units 10/02/22 14:13 10/05/22 08:46 Insulin Aspart 300 Units/3 Ml Insuln.Pen SUBCUT 10/02/23 14:12 Not Given TID.WM.[facility] Protocol Insulin Glargine 20 units 10/03/22 21:00 10/05/22 08:48 Insulin Glargine 300 Units/3 Ml Insuln.Pen SUBCUT 10/03/23 20:59 20 units BID VANE Administration Isosorbide Mononitrate 30 mg 10/03/22 09:00 10/05/22 08:44 Isosorbide Mononitrate 24hr Er 30 Mg Tab.Er.24h PO 10/03/23 08:59 30 mg QAM VANE Administration Linagliptin 5 mg 10/03/22 09:00 10/05/22 08:45 Linagliptin 5 Mg Tablet PO 10/03/23 08:59 5 mg DAILY VANE Administration Magnesium Hydroxide 30 ml 10/02/22 14:13 Magnesium Hydroxide Susp 30 Ml Udc PO 10/02/23 14:12 HS PRN Constipation Metformin HCl 500 mg 10/02/22 21:00 10/05/22 08:45 Metformin 500 Mg Tablet PO 10/02/23 20:59 500 mg BID VANE Administration Metoprolol Tartrate 5 mg 10/03/22 09:36 Metoprolol Tartrate 5 Mg/5 Ml Vial IV-PUSH 10/03/23 09:35 Q4H PRN Blood Pressure Nitroglycerin 0.4 mg 10/02/22 14:13 Nitroglycerin 0.4 Mg Tab.Subl SUBLINGUAL 10/02/23 14:12 Q5MIN.X3 PRN Chest Pain Ondansetron HCl 4 mg 10/02/22 14:13 10/03/22 05:43 Ondansetron 4 Mg/2 Ml Vial IV-PUSH 10/02/23 14:12 4 mg Q6H PRN Administration Nausea And Vomiting Promethazine HCl 12.5 mg 10/03/22 08:45 10/03/22 09:05 Promethazine 25 Mg/Ml Vial IV-PUSH 10/03/23 08:44 12.5 mg Q6H PRN Administration Nausea And Vomiting Senna/Docusate Sodium 2 tab 10/02/22 21:00 10/05/22 08:45 Sennosides/Docusate 8.6-50mg 1 Tab Tablet PO 10/02/23 20:59 2 tab BID VANE Administration Sodium Chloride 10 ml 10/03/22 08:45 10/03/22 09:05 Sodium Chloride 0.9 % 10 Ml Vial.Pf INJECTION 10/03/23 08:44 10 ml PRN PRN Administration Promethazine Dilution Spironolactone 50 mg 10/04/22 09:00 10/05/22 08:45 Spironolactone 50 Mg Tablet PO 10/04/23 08:59 50 mg DAILY VANE Administration A&P - Hospitalist Assessment/Plan (1) Accelerated hypertension: (2) Diabetes mellitus with hyperglycemia: (3) Nausea: (4) CAD (coronary artery disease): (5) Hyperlipemia: (6) Leg weakness, bilateral: Plan Plan: ? Continue spironolactone 50 mg daily ? Continue hydralazine as ordered ? Potassium within normal limits at 4.2 today, continue to trend morning BMPs ? Blood glucose level is assessable, continue current insulin regimen ?Continue PT OT Documented By: Roberto Cullen DO 10/05/22 1130 Signed By: <Electronically signed by Roberto Cullen DO> 10/05/22 1134 [facility] Work Phone: 1([phone]) 282-715712-31-2022 Progress note Author Clemente Miller [facility] October 05, 2022 9:34am Note Date/Time October 05, 2022 9:34am [facility] [address] [place] [address] Neurosurgery Progress Note Signed Patient: Dave Lugo MR#: [id number] : 1950 Acct:[id number] Age/Sex: 72 / M Adm Date: 2 Loc: 4N Room: [id number] Type: REG [facility] Attending Dr: Clemente Miller MD Copies to: ~ Date of Service: 10/05/2022 Subjective Subjective HPI: Patient continue with hypertension. Nauseous is gone. States preoperative left leg better but continues to have back pain and difficulty with turning and moving. Exam Physical Exam Vital Signs: Temp Pulse Resp BP Pulse Ox O2 Del Method O2 Flow Rate 98.0 F 83 16 169/86 H 99 Room Air 8 10/05/22 07:39 10/05/22 07:39 10/05/22 07:39 10/05/22 07:39 10/05/22 07:39 10/05/22 07:39 10/02/22 10:14 Narrative: Lower extremity strength at baseline Dressing dry Patient alert and cooperative Sitting comfortable in a chair Objective Lab Results Most Recent Labs: 10/05/22 07:38: POC Glucose 112 10/05/22 05:45: PHA Creatinine Clear 37.66, Sodium 137, Potassium 4.2, Chloride 107, Carbon Dioxide 24.5, Anion Gap 9.7, BUN 42 H, Creatinine 1.60 H, Est GFR ( Amer) 52, Est GFR (Non-Af Amer) 43, Glucose 93 D, Calcium 8.5 10/05/22 01:51: POC Glucose 118 10/04/22 21:02: POC Glucose 299 10/04/22 16:24: POC Glucose 166 10/04/22 11:39: POC Glucose 208 Assessment/Plan Assessment/Plan (1) Spondylolisthesis, lumbar region: Plan: Postoperative day #3 the patient continues to improve walk around. No leg pain. He is not dragging his left leg as much. Patient will continue to increase activity. Awaiting rehab precertification Code(s): M43.16 - Spondylolisthesis, lumbar region Status: Acute (2) Accelerated hypertension: Code(s): I10 - Essential (primary) hypertension Status: Acute (3) Diabetes mellitus with hyperglycemia: Code(s): E11.65 - Type 2 diabetes mellitus with hyperglycemia Status: Acute (4) Nausea: Code(s): R11.0 - Nausea Status: Acute (5) CAD (coronary artery disease): Code(s): I25.10 - Atherosclerotic heart disease of eek coronary artery without angina pectoris Status: Acute (6) Hyperlipemia: Code(s): E78.5 - Hyperlipidemia, unspecified Status: Acute (7) Leg weakness, bilateral: Code(s): R29.898 - Other symptoms and signs involving the musculoskeletal system Status: Acute Documented By: Clemente Miller MD 10/05/22931 Signed By: <Electronically signed by MD Clemente Miller> 10/05/22933 [facility] Work Phone: [phone]) [phone] Progress note Author Beth Lowe [facility] October 04, 2022 11:41am Note Date/Time October 04, 2022 11:36am [facility] [address] [place] [address] Neurosurgery Progress Note Signed Patient: Dave Lugo MR#: [id number] : 1950 Acct:[id number] Age/Sex: 72 / M Adm Date: 2 Loc: Room: [address] [place] [address] Type: REG SDC Attending Dr: Clemente Miller MD Copies to: ~ Date of Service: 10/04/2022 Subjective Subjective HPI: Patient continue with hypertension. Nauseous is gone. States preoperative left leg better but continues to have back pain and difficulty with turning and moving. Exam Physical Exam Vital Signs: Temp Pulse Resp BP Pulse Ox O2 Del Method O2 Flow Rate 98.7 F 86 18 172/87 H 97 Room Air 8 10/04/22 07:29 10/04/22 07:29 10/04/22 07:29 10/04/22 07:29 10/04/22 07:29 10/04/22 07:29 10/02/22 10:14 Narrative: Lower extremities strength and motion baseline. Incision clean and dry Objective Lab Results Most Recent Labs: 10/04/22 07:30: POC Glucose 214 10/04/22 07:09: PHA Creatinine Clear 36.30, Sodium 134 L, Potassium 4.9, Chloride 105, Carbon Dioxide 23.5, Anion Gap 10.4, BUN 32 H, Creatinine 1.66 H, Est GFR ( Amer) 50, Est GFR (Non-Af Amer) 41, Glucose 206 H, Calcium 8.5,Magnesium 2.2 10/04/22 07:09: Corrected WBC 16.0 H, Uncorrected WBC Count 16.0 H, RBC 4.03, Hgb 11.3 L, Hct 34.3 L, MCV 85.3, MCH 28.1, MCHC 33.0, RDW 13.3, Plt Count 159, MPV 8.3, Neut % (Auto) 87.1, Lymph % (Auto) 6.1, [place] % (Auto) 6.6, Eos % (Auto)0.0, Baso % (Auto) 0.2, Nucleat RBC Rel Count 0.0, Neut # (Auto) 14.0 H, Lymph #(Auto) 1.0, [place] # (Auto) 1.1 H, Eos # (Auto) 0.0, Baso # (Auto) 0.0 10/04/22 02:05: POC Glucose 196 10/03/22 20:41: POC Glucose 293 10/03/22 16:44: POC Glucose 360 10/03/22 11:29: POC Glucose 276 Assessment/Plan Assessment/Plan (1) Spondylolisthesis, lumbar region: Plan: Patients preop radicular symptoms have improved. Patient continues to have physical difficulty with muscle weakness. Patient to continue to increase activity with physical therapy, would be a good candidate for rehab. Code(s): M43.16 - Spondylolisthesis, lumbar region Status: Acute (2) Accelerated hypertension: Code(s): I10 - Essential (primary) hypertension Status: Acute (3) Diabetes mellitus with hyperglycemia: Code(s): E11.65 - Type 2 diabetes mellitus with hyperglycemia Status: Acute (4) Nausea: Code(s): R11.0 - Nausea Status: Acute (5) CAD (coronary artery disease): Code(s): I25.10 - Atherosclerotic heart disease of eek coronary artery without angina pectoris Status: Acute (6) Hyperlipemia: Code(s): E78.5 - Hyperlipidemia, unspecified Status: Acute (7) Leg weakness, bilateral: Code(s): R29.898 - Other symptoms and signs involving the musculoskeletal system Status: Acute Documented By: DEREK Ohara 10/04/22 8461 Signed By: <Electronically signed by DEREK Lowe> 10/04/22 1141 [facility] Work Phone: [phone]) 855-368112-30-2022 Progress note Author Kali Isaac [facility] October 04, 2022 10:20am Note Date/Time October 04, 2022 10:20am [facility] [address] [place] [address] Hospitalist Progress Note Signed Patient: Dave Lugo MR#: [id number] : 1950 Acct:[id number] Age/Sex: 72 / M Adm Date: 2 Loc: 4N Room: [address] [place] [address] Type: REG SDC Attending Dr: Clemente Miller MD Copies to: ~ Date of Service: 10/04/2022 Subjective Subjective Narrative: The patient reports ongoing back pain, as expected after his major lumbar spine surgery. He says that he has tremendous difficulty doing just a minor things such as rolling over in bed, going from laying down to sitting up, standing up, as his legs and back do not have the strength to get him position from sitting to standing very well. Very difficult time to get upright and then sit down such as on the toilet. He notes that he had difficulties with his left leg motion that were severe before coming in to get the surgery done. The strange nausea that the patient had with sitting up yesterday is gone. Its not clear what that was. He denies any lightheadedness or dizziness. No feversor chills. His other review of systems is negative for new problems such as cough or expectoration sputum or heartburn or acid reflux symptoms. He has not yet moved his bowels. He says he did take a stool softener. I discussed with him that I have increased his blood pressure medications. Havealso increase long-acting and short acting insulin to cover his hyperglycemia. He is getting hyperglycemia from the corticosteroids but that should improve a couple days after the corticosteroids are completely stopped. They are on a nice rapid taper at this time and it looks like his last doses will be tomorrow. I think that the patient would be a very good candidate for the acute inpatient rehabilitation unit. He needs multimodal physical therapy and Occupational Therapy with the highest possible intensity of daily treatments, due to the severity of the lumbar spine condition that he had. He needs to be able to do basic activities of daily living such as sitting up to get out of bed and movingback and forth for standing and sitting. He needs extensive work on strengthening and coordination and proprioception for his lower extremities. Therefore I do think that a rehab on the acute inpatient redilatation unit, which is medically supervised daily, for the physical rehabilitation, ongoing evaluation of his elevated blood pressures and elevated blood sugars, and close medical monitoring would be the correct setting for him. I do not think that these problems could all be cared for at a lower level of care such as SNF or home health. Exam Physical Exam Vital Signs: Temp Pulse Resp BP Pulse Ox O2 Del Method O2 Flow Rate 98.7 F 86 18 172/87 H 97 Room Air 8 10/04/22 07:29 10/04/22 07:29 10/04/22 07:29 10/04/22 07:29 10/04/22 07:29 10/04/22 07:29 10/02/22 10:14 Narrative: GEN: Seated in a chair. Braces on. He would not be able to put the lumbar brace on by himself. Heart: Regular rate and rhythm, no murmurs, rubs, or gallops. Abdomen: Soft, normal bowel sounds, no rigidity, guarding, or acute peritoneal signs. Extremities: No swelling or cords in the calves bilaterally, no edema in the ankles bilaterally. Skin: No systemic rashes or lesions. Objective Lab Results 10/04/22 07:09 10/04/22 07:09 Meds Allergies and Active Meds Allergies oxycodone [From Percocet] Allergy (Verified 10/02/22 08:25) Swelling of Lip/Tongue/Throat amlodipine Adverse Reaction (Verified 10/02/22 06:09) Edema aspirin Adverse Reaction (Verified 10/02/22 06:09) Swelling of Lip/Tongue/Throat Active Meds: Active Medications Generic Name Dose Route Start Last Admin Trade Name Freq PRN Reason Stop Dose Admin Acetaminophen 650 mg 10/02/22 14:13 Acetaminophen 325 Mg Tablet PO 10/02/23 14:12 Q4H PRN Mild Pain Hydrocodone Bitart/Acetaminophen 2 tab 10/02/22 14:13 10/02/22 15:13 Hydrocodone/Acetaminophen 5-325 Mg Tablet PO 2 tab Q6H PRN Administration Pain Scale 6 - 10 Hydrocodone Bitart/Acetaminophen 1 tab 10/02/22 14:13 10/02/22 21:30 Hydrocodone/Acetaminophen 5-325 Mg Tablet PO 1 tab Q6H PRN Administration Pain Scale 1 - 5 Al Hydrox/Mg Hydrox/Simethicone 30 ml 10/02/22 14:13 Mag Hydrox/Al Hydrox/Simeth 30 Ml Udc PO 10/02/23 14:12 Q4H PRN Heartburn Aspirin 81 mg 10/03/22 09:00 10/04/22 08:35 Aspirin 81 Mg Tab.Chew PO 10/03/23 08:59 81 mg QAM VANE Administration Atorvastatin Calcium 20 mg 10/02/22 22:00 10/03/22 21:04 Atorvastatin 20 Mg Tablet PO 10/02/23 21:59 20 mg QHS VANE Administration Carvedilol 12.5 mg 10/02/22 21:00 10/04/22 08:35 Carvedilol 12.5 Mg Tablet PO 10/02/23 20:59 12.5 mg BID VANE Administration Cyanocobalamin 1,000 mcg 10/03/22 09:00 10/04/22 08:34 Cyanocobalamin 1,000 Mcg Tablet PO 10/03/23 08:59 1,000 mcg QAM VANE Administration Cyclobenzaprine HCl 10 mg 10/02/22 22:00 10/03/22 21:04 Cyclobenzaprine 10 Mg Tablet PO 10/02/23 21:59 10 mg QHS VANE Administration Cyclobenzaprine HCl 10 mg 10/02/22 14:13 Cyclobenzaprine 10 Mg Tablet PO 10/02/23 14:12 Q8HR PRN Muscle Spasm Dexamethasone 2 mg 10/02/22 20:21 10/04/22 08:35 Dexamethasone 4 Mg Tablet PO 10/05/22 14:12 2 mg QID VANE Administration Taper Dextrose 0 gm 10/02/22 14:28 Dextrose 20 % In Water 10 Gm/50 Ml Syringe IV-PUSH 10/02/23 14:27 PRN PRN Hypoglycemia Diphenhydramine HCl 25 mg 10/02/22 14:13 Diphenhydramine 25 Mg Capsule PO 10/02/23 14:12 Q6H PRN Itching Famotidine 20 mg 10/02/22 21:00 10/03/22 21:04 Famotidine 20 Mg Tablet PO 10/02/23 20:59 20 mg QPM VANE Administration Ferrous Sulfate 324 mg 10/03/22 09:00 10/03/22 09:07 Ferrous Sulfate 324 Mg Tablet.Dr PO 10/03/23 08:59 324 mg QAM VANE Administration Glucose 0 gm 10/02/22 14:13 Dextrose 40% Gel 15 Gm Tube PO 10/02/23 14:12 PRN PRN Hypoglycemia Hydralazine HCl 10 mg 10/03/22 09:36 Hydralazine 20 Mg/Ml Vial IV-PUSH 10/03/23 09:35 Q4H PRN Hypertension Hydralazine HCl 100 mg 10/04/22 09:00 10/04/22 08:35 Hydralazine 50 Mg Tablet PO 10/04/23 08:59 100 mg BID VANE Administration Hydromorphone HCl 2 mg 10/02/22 14:13 10/02/22 23:30 Hydromorphone 1 Mg/Ml Syringe IV-PUSH 2 mg Q2H PRN Administration Pain Hydromorphone HCl 1 mg 10/02/22 14:13 10/02/22 17:34 Hydromorphone 1 Mg/Ml Syringe IV-PUSH 1 mg Q2H PRN Administration Pain Insulin Aspart 0 units 10/02/22 14:13 10/04/22 08:35 Insulin Aspart 300 Units/3 Ml Insuln.Pen SUBCUT 10/02/23 14:12 9 units TID.WM.HS VANE Administration Protocol Insulin Glargine 20 units 10/03/22 21:00 10/04/22 08:36 Insulin Glargine 300 Units/3 Ml Insuln.Pen SUBCUT 10/03/23 20:59 20 units BID VANE Administration Isosorbide Mononitrate 30 mg 10/03/22 09:00 10/04/22 08:34 Isosorbide Mononitrate 24hr Er 30 Mg Tab.Er.24h PO 10/03/23 08:59 30 mg QAM VANE Administration Linagliptin 5 mg 10/03/22 09:00 10/04/22 08:34 Linagliptin 5 Mg Tablet PO 10/03/23 08:59 5 mg DAILY VANE Administration Magnesium Hydroxide 30 ml 10/02/22 14:13 Magnesium Hydroxide Susp 30 Ml Udc PO 10/02/23 14:12 HS PRN Constipation Metformin HCl 500 mg 10/02/22 21:00 10/04/22 08:34 Metformin 500 Mg Tablet PO 10/02/23 20:59 500 mg BID VANE Administration Metoprolol Tartrate 5 mg 10/03/22 09:36 Metoprolol Tartrate 5 Mg/5 Ml Vial IV-PUSH 10/03/23 09:35 Q4H PRN Blood Pressure Nitroglycerin 0.4 mg 10/02/22 14:13 Nitroglycerin 0.4 Mg Tab.Subl SUBLINGUAL 10/02/23 14:12 Q5MIN.X3 PRN Chest Pain Ondansetron HCl 4 mg 10/02/22 14:13 10/03/22 05:43 Ondansetron 4 Mg/2 Ml Vial IV-PUSH 10/02/23 14:12 4 mg Q6H PRN Administration Nausea And Vomiting Promethazine HCl 12.5 mg 10/03/22 08:45 10/03/22 09:05 Promethazine 25 Mg/Ml Vial IV-PUSH 10/03/23 08:44 12.5 mg Q6H PRN Administration Nausea And Vomiting Senna/Docusate Sodium 2 tab 10/02/22 21:00 10/04/22 08:34 Sennosides/Docusate 8.6-50mg 1 Tab Tablet PO 10/02/23 20:59 2 tab BID VANE Administration Sodium Chloride 10 ml 10/03/22 08:45 10/03/22 09:05 Sodium Chloride 0.9 % 10 Ml Vial.Pf INJECTION 10/03/23 08:44 10 ml PRN PRN Administration Promethazine Dilution Spironolactone 50 mg 10/04/22 09:00 10/04/22 08:35 Spironolactone 50 Mg Tablet PO 10/04/23 08:59 50 mg DAILY VANE Administration A&P - Hospitalist Assessment/Plan (1) Accelerated hypertension: (2) Diabetes mellitus with hyperglycemia: (3) Nausea: (4) CAD (coronary artery disease): (5) Hyperlipemia: (6) Leg weakness, bilateral: Plan Plan: Increase spironolactone to 50 mg p.o. daily. Check BMP tomorrow to evaluate forhyperkalemia. Increase hydralazine 200 mg p.o. twice daily. Increase long-acting and short acting insulin. Give one-time dose of NPH insulin this morning due to the corticosteroids. Continue blood sugar checks before meals and at bedtime with a 2 in the morning check to monitor for potential development of hypoglycemia. Ongoing aggressive PT and OT. Documented By: Kali Isaac DO [id number] Signed By: <Electronically signed by Kali Isaac DO> 10/04/22 1020 [facility] Work Phone: [phone] 640-992212-29-2022 Consult note Author Kali Isaac [facility] October 03, 2022 9:46am Note Date/Time October 03, 2022 9:46am [facility] [address] [place] [address] Hospitalist Consult Note Signed Patient: Dave Lugo MR#: [id number] : 1950 Acct:[id number] Age/Sex: 72 / M Adm Date: 2 Loc: Room: [address] [place] [address] Type: REG SDC Attending Dr: Clemente Miller MD Copies to: MD Lolita Herman, DO Kali Isaac DO~ HPI DATE OF CONSULTATION: 10/03/22 REQUESTING PROVIDER: Clemente Miller Consult Narrative Reason for Consult: Elevated blood pressures and blood sugars. HPI: This is a 72-year-old man who is at the hospital after getting elective lumbar surgery yesterday by neurosurgery with Dr. Miller. Hospitalist services have been consulted because the patient's blood pressure and blood sugars are expected. This has been distressing to the patient who feels that these numbersare normally under good control. The patient is having low back pain. He describes that when he sits forward he gets hit by a sudden wave of nausea. He he has had some vomiting. He is havinga decreased level of appetite. When he is resting back in bed he does not seem to have this attack of nausea. In terms of his diabetes he used to be on Lantus at 50 units a daily and then recently that has been decreased to 30 units daily. But he was getting hypoglycemic in the mornings so his primary care decrease that to 10 units daily. He does not use any short acting insulin at home. The home medication list is not accurate and that he is prescribed the Januvia 100 mg daily, not 50 mg p.o. twice daily. Patient states that his hemoglobin A1c is always under good control. Hemoglobin A1c here from April 2021 was 7.8. Today's hemoglobin A1c is pending. It seems like he eats a relatively low carbohydrate diet at home. In terms of his blood pressures blood pressures were elevated last night at 181/93, 178/93, and 198/92. About a month ago he was prescribed Lasix for edemain his legs but that improved and he stopped taking the Lasix at the direction of his new PCP after 1 month. He did get his usual dose of hydralazine and Coreg last night. He says that he followed anesthesias directions on what medicines he should take in the morning yesterday but we do not have a list of what those are. Review of Systems Review of Systems Review of systems: 10 systems are reviewed and are negative except as mentioned elsewhere in the documentation. PMFSH Vaccinated for COVID-19?: Yes Medical History Diabetes History of cataract HTN (hypertension) Hyperlipemia Kidney stone Myocardial infarct 2 STENTS Poor historian Smoker Surgical History H/O heart artery stent History of cardiac catheterization History of orthopedic surgery 1st rib removed Family History Sister Brain aneurysm Brother Myocardial infarct Mother Diabetes mellitus, type 2 Social History Smoking Status: Current every day smoker Tobacco Type: cigarettes Substance Use Type: Alcohol (occ) Meds Medications and Allergies Allergies oxycodone [From Percocet] Allergy (Verified 10/02/22 08:25) Swelling of Lip/Tongue/Throat amlodipine Adverse Reaction (Verified 10/02/22 06:09) Edema aspirin Adverse Reaction (Verified 10/02/22 06:09) Swelling of Lip/Tongue/Throat Home Medications nitroglycerin 0.4 mg sublingual tablet 0.4 mg sublingual Q5M PRN Chest Pain 30 days ##30 08/26/17 [Rx Confirmed 10/02/22] carvedilol 12.5 mg tablet 12.5 mg PO BID 10/02/17 [History Confirmed 10/02/22] metformin 500 mg tablet 500 mg PO BID 08/08/20 [History Confirmed 10/02/22] twyjfarl-kueo-efeizvh gluconate 9 mg iron/15 mL (15 mL) oral liquid (Centrum) 15ml PO DAILY 08/08/20 [History Confirmed 10/02/22] atorvastatin 20 mg tablet 20 mg PO QHS 08/09/20 [History Confirmed 10/02/22] hydralazine 50 mg tablet 50 mg PO BID #60 tabs 08/10/20 [Rx Confirmed 10/02/22] ferrous sulfate 325 mg (65 mg iron) tablet 325 mg PO QAM 04/25/21 [History Confirmed 10/02/22] cyclobenzaprine 10 mg tablet 10 mg PO QHS 09/12/21 [History Confirmed 10/02/22] sitagliptin phosphate 100 mg tablet (Januvia) 50 mg PO BID 09/12/21 [History Confirmed 10/02/22] insulin glargine 100 unit/mL subcutaneous solution (Lantus U-100 Insulin) 10 unit subcut QAM 11/23/21 [History Confirmed 10/02/22] aspirin 81 mg chewable tablet 81 mg PO QAM 09/18/22 [History Confirmed 10/02/22] cyanocobalamin (vitamin B-12) 1,000 mcg tablet (Vitamin B-12) 1,000 mcg PO QAM 09/18/22 [History Confirmed 10/02/22] isosorbide mononitrate 30 mg tablet,extended release 24 hr 30 mg PO QAM 09/18/22[History Confirmed 10/02/22] Active Medications: Active Medications Generic Name Dose Route Start Last Admin Trade Name Freq PRN Reason Stop Dose Admin Acetaminophen 650 mg 10/02/22 14:13 Acetaminophen 325 Mg Tablet PO 10/02/23 14:12 Q4H PRN Mild Pain Hydrocodone Bitart/Acetaminophen 2 tab 10/02/22 14:13 10/02/22 15:13 Hydrocodone/Acetaminophen 5-325 Mg Tablet PO 2 tab Q6H PRN Administration Pain Scale 6 - 10 Hydrocodone Bitart/Acetaminophen 1 tab 10/02/22 14:13 10/02/22 21:30 Hydrocodone/Acetaminophen 5-325 Mg Tablet PO 1 tab Q6H PRN Administration Pain Scale 1 - 5 Al Hydrox/Mg Hydrox/Simethicone 30 ml 10/02/22 14:13 Mag Hydrox/Al Hydrox/Simeth 30 Ml Udc PO 10/02/23 14:12 Q4H PRN Heartburn Aspirin 81 mg 10/03/22 09:00 10/03/22 09:06 Aspirin 81 Mg Tab.Chew PO 10/03/23 08:59 81 mg QAM VANE Administration Atorvastatin Calcium 20 mg 10/02/22 22:00 10/02/22 21:29 Atorvastatin 20 Mg Tablet PO 10/02/23 21:59 20 mg QHS VANE Administration Carvedilol 12.5 mg 10/02/22 21:00 10/03/22 09:07 Carvedilol 12.5 Mg Tablet PO 10/02/23 20:59 12.5 mg BID VANE Administration Cyanocobalamin 1,000 mcg 10/03/22 09:00 10/03/22 09:06 Cyanocobalamin 1,000 Mcg Tablet PO 10/03/23 08:59 1,000 mcg QAM VANE Administration Cyclobenzaprine HCl 10 mg 10/02/22 22:00 10/02/22 21:29 Cyclobenzaprine 10 Mg Tablet PO 10/02/23 21:59 10 mg QHS VANE Administration Cyclobenzaprine HCl 10 mg 10/02/22 14:13 Cyclobenzaprine 10 Mg Tablet PO 10/02/23 14:12 Q8HR PRN Muscle Spasm Dexamethasone 4 mg 10/02/22 20:21 10/03/22 09:06 Dexamethasone 4 Mg Tablet PO 10/05/22 14:12 4 mg QID VANE Administration Taper Dextrose 0 gm 10/02/22 14:28 Dextrose 20 % In Water 10 Gm/50 Ml Syringe IV-PUSH 10/02/23 14:27 PRN PRN Hypoglycemia Diphenhydramine HCl 25 mg 10/02/22 14:13 Diphenhydramine 25 Mg Capsule PO 10/02/23 14:12 Q6H PRN Itching Famotidine 20 mg 10/02/22 21:00 10/02/22 21:28 Famotidine 20 Mg Tablet PO 10/02/23 20:59 20 mg QPM VANE Administration Ferrous Sulfate 324 mg 10/03/22 09:00 10/03/22 09:07 Ferrous Sulfate 324 Mg Tablet.Dr PO 10/03/23 08:59 324 mg QAM VANE Administration Glucose 0 gm 10/02/22 14:13 Dextrose 40% Gel 15 Gm Tube PO 10/02/23 14:12 PRN PRN Hypoglycemia Hydralazine HCl 50 mg 10/03/22 09:00 10/03/22 09:07 Hydralazine 50 Mg Tablet PO 10/03/23 08:59 50 mg TID VANE Administration Hydromorphone HCl 2 mg 10/02/22 14:13 10/02/22 23:30 Hydromorphone 1 Mg/Ml Syringe IV-PUSH 2 mg Q2H PRN Administration Pain Hydromorphone HCl 1 mg 10/02/22 14:13 10/02/22 17:34 Hydromorphone 1 Mg/Ml Syringe IV-PUSH 1 mg Q2H PRN Administration Pain Potassium Chloride/Sodium Chloride 1,000 mls @ 100 mls/hr 10/02/22 14:13 10/03/22 00:33 0.9 % Nacl-20 Meq Kcl IV 10/02/23 14:12 Not Given .Q10H VANE Insulin Aspart 0 units 10/02/22 14:13 10/03/22 08:09 Insulin Aspart 300 Units/3 Ml Insuln.Pen SUBCUT 10/02/23 14:12 4 units TID.WM.HS VANE Administration Protocol Insulin Glargine 10 units 10/03/22 09:00 10/03/22 08:10 Insulin Glargine 300 Units/3 Ml Insuln.Pen SUBCUT 10/03/23 08:59 10 units QAM VANE Administration Isosorbide Mononitrate 30 mg 10/03/22 09:00 10/03/22 09:06 Isosorbide Mononitrate 24hr Er 30 Mg Tab.Er.24h PO 10/03/23 08:59 30 mg QAM VANE Administration Linagliptin 5 mg 10/03/22 09:00 10/03/22 09:07 Linagliptin 5 Mg Tablet PO 10/03/23 08:59 5 mg DAILY VANE Administration Magnesium Hydroxide 30 ml 10/02/22 14:13 Magnesium Hydroxide Susp 30 Ml Udc PO 10/02/23 14:12 HS PRN Constipation Metformin HCl 500 mg 10/02/22 21:00 10/03/22 09:06 Metformin 500 Mg Tablet PO 10/02/23 20:59 500 mg BID VANE Administration Nitroglycerin 0.4 mg 10/02/22 14:13 Nitroglycerin 0.4 Mg Tab.Subl SUBLINGUAL 10/02/23 14:12 Q5MIN.X3 PRN Chest Pain Ondansetron HCl 4 mg 10/02/22 14:13 10/03/22 05:43 Ondansetron 4 Mg/2 Ml Vial IV-PUSH 10/02/23 14:12 4 mg Q6H PRN Administration Nausea And Vomiting Promethazine HCl 12.5 mg 10/03/22 08:45 10/03/22 09:05 Promethazine 25 Mg/Ml Vial IV-PUSH 10/03/23 08:44 12.5 mg Q6H PRN Administration Nausea And Vomiting Senna/Docusate Sodium 2 tab 10/02/22 21:00 10/03/22 09:06 Sennosides/Docusate 8.6-50mg 1 Tab Tablet PO 10/02/23 20:59 2 tab BID VANE Administration Sodium Chloride 10 ml 10/03/22 08:45 10/03/22 09:05 Sodium Chloride 0.9 % 10 Ml Vial.Pf INJECTION 10/03/23 08:44 10 ml PRN PRN Administration Promethazine Dilution Spironolactone 25 mg 10/03/22 09:00 10/03/22 09:06 Spironolactone 25 Mg Tablet PO 10/03/23 08:59 25 mg DAILY VANE Administration Exam Physical Exam Vital Signs: Temp Pulse Resp BP Pulse Ox O2 Del Method O2 Flow Rate 98.8 F 88 16 162/83 H 99 Room Air 8 10/03/22 07:59 10/03/22 07:59 10/03/22 07:59 10/03/22 07:59 10/03/22 07:59 10/03/22 07:59 10/02/22 10:14 Narrative: GEN: Awake, alert, oriented x 3. Head: Normal Cephalic, Atraumatic. Eyes: Conjunctiva and sclera clear bilaterally. EOMI. Nose: External nose and nares normal bilaterally. Mouth: Lips and tongue normal. Tongue is midline. Neck: No JVD. No thyromegaly. No lymphadenopathy. Lungs: Clear to auscultation bilaterally, no wheezing, no crackles. Heart: Regular rate and rhythm, no murmurs, rubs, or gallops. Abdomen: Soft, normal bowel sounds, no rigidity, guarding, or acute peritoneal signs. Extremities: No swelling or cords in the calves bilaterally, no edema in the ankles bilaterally. Skin: No systemic rashes or lesions. Psychiatric: Calm. Conversant. Cooperative. Neuro: Awake, Alert, and Oriented x 3. No focal or lateralizing deficits. Results Lab Results Labs: Laboratory Results - last 72 hr 10/03/22 08:01: POC Glucose 243 10/02/22 20:49: POC Glucose 248 10/02/22 16:37: POC Glucose 248, POC Glucose Comment Glu2: cleaned meter 10/02/22 10:37: POC Glucose 191 10/02/22 06:23: POC Glucose 210, POC Glucose Comment Glu2: cleaned meter A&P - Hospitalist Assessment/Plan (1) Accelerated hypertension: (2) Diabetes mellitus with hyperglycemia: (3) Nausea: (4) CAD (coronary artery disease): (5) Hyperlipemia: Plan Assessment: This is a 72-year-old man in the hospital after lumbar spinal surgery. I think the waves of nausea he gets are related to sudden pain from his postoperative condition in his lumbar region. The waves of nausea seem to be associated with body movements that would accelerate that pain. His blood pressure is elevated above his baseline. Looking back through the computer system he does have a history of labile hypertension on many visits going back over the last couple years. But these numbers are higher than typical for him. He does have diabetes and so would benefit from an TITI or an ARB but he does have chronic kidney disease, which, if otherwise stable, would also benefit from an TITI or anARB. In the long run I defer to his primary care provider to add an TITI or an ARB to his regimen and closely monitor his chronic kidney disease. His diabetesis getting accelerated hyperglycemia likely related to the physiologic stress ofthe surgery itself and the use of corticosteroids with dexamethasone. Patient describes wildly uncontrolled diabetes a few months ago when he went to the ER for some swelling on his upper lip and to the retail pharmacy history shows thathe got a short course of prednisone. Plan: For his nausea 500 mL bolus of lactated Ringer's. Adding spironolactone 25 mg daily to his blood pressure regimen here in the hospital, increasing the oral hydralazine from twice daily to 3 times a day. And IV Lopressor every 4 hours. Systolic blood pressure greater than 140s and IV hydralazine 10 mg IV every 4 hours as needed systolic blood pressure greater than 150. For his diabetes I will put him on a regular diet so he can choose lower carbohydrate nutritious fruits and vegetables that he normally likes to eat. Wecan bump up his long-acting insulin from Lantus 10 units daily to 10 units twicea day. He can be on a sliding scale level 4. He will continue to exhibit hyperglycemia until corticosteroids are out of his system. We will try and manage his blood sugars as much as possible while he is here in the hospital. Check hemoglobin A1c and BMP today and check CBC tomorrow morning. Documented By: Kali Isaac DO 38 Signed By: <Electronically signed by Kali Isaac DO> 10/03/[address] [facility] Work Phone: [phone] 764-188212-29-2022 Progress note Author Beth Lowe [facility] October 03, 2022 7:40am Note Date/Time October 03, 2022 7:38am [facility] [address] [place] [address] Neurosurgery Progress Note Signed Patient: Dave Lugo MR#: [id number] : 1950 Acct:[id number] Age/Sex: 72 / M Adm Date: 2 Loc: 4N Room: 9S2150-2 Type: REG SDC Attending Dr: Clemente Miller MD Copies to: ~ Date of Service: 10/03/2022 Subjective Subjective HPI: patient hypertensive through the night with hyperglycemia. Nauseous with sitting up. States preoperative left leg better. Back is sore. Exam Physical Exam Vital Signs: Temp Pulse Resp BP Pulse Ox O2 Del Method O2 Flow Rate 98.6 F 98 H 16 175/89 H 96 Room Air 8 10/03/22 03:51 10/03/22 03:51 10/03/22 03:51 10/03/22 03:51 10/03/22 03:51 10/03/22 03:51 10/02/22 10:14 Narrative: Lower extremities strength and motion baseline. Incision clean and dry Objective Lab Results Most Recent Labs: 10/02/22 20:49: POC Glucose 248 10/02/22 16:37: POC Glucose 248, POC Glucose Comment Glu2: cleaned meter 10/02/22 10:37: POC Glucose 191 Assessment/Plan Assessment/Plan (1) Spondylolisthesis, lumbar region: Code(s): M43.16 - Spondylolisthesis, lumbar region Status: Acute Plan Consult hospitalist for hypertension and hyperglycemia for medical management. Increase activity with physical therapy as tolerated. Time Spent With Patient (min): 20 Documented By: DEREK Ohara 10/03/22 0729 Signed By: <Electronically signed by DEREK Lowe> 10/03/22 0740 [facility] Work Phone: [phone]) 990-863911-14-2022 Evaluation note* Encounter Date Diagnosis Assessment Notes Treatment Notes Treatment Clinical Notes Aug, Type 2 diabetes mellitus with diabetic chronic kidney disease (ICD-10 - E11.22) doing well with his a1c but only taking lantus 30 U 3 or so times per week based on his sugars. Discussed this really is not how it is intended and probably worth while to cut back to 10U daily and see if he can control sugars without going too low -he is in agreement. reliable at checking sugars. 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 Miller, apparently waiting cardiac clearance. [facility] Other 11-10-2022 Evaluation note* Encounter Date Diagnosis Assessment Notes Treatment Notes Treatment Clinical Notes Aug, Coronary artery disease involving eek coronary artery of eek heart without angina pectoris (ICD-10 - I25.10) Aug, Spinal stenosis at L4-L5 level (ICD-10 - M48.061) I independently reviewed the MRI of the lumbar spine which shows severe stenosis at L4-5 and spondylolisthesis which is also seen on plain x-ray. The patient has now undergone physical therapy with no benefit, he was discharged after 2 visits because of inability to walk after treatment. He is in need of lumbar decompression L4-5 with posterior lumbar interbody fusion pedicle screws L4-L5 with rods. I reviewed all imaging face to face with the patient and his and discussed treatment options in detail, along with risks and benefits of surgery.The indication operation postop course risk benefits of surgery and complications to include theoretical paralysis, nerve damage, incomplete relief of symptoms, spinal fluid leak, failure of hardware. He understands and would like to proceed with surgical intervention. A lumbar sagital brace will be dispensed prior to surgery to reduce pain by restricting mobility of the trunk and to otherwise support weak spinal muscles and/or a deformed spine. Aug, Type 2 diabetes mellitus with diabetic chronic kidney disease (ICD-10 - E11.22) Aug, Spondylolisthesi s, lumbar region (ICD-10 - M43.16) Aug, Foot drop, left (ICD-10 - M21.372) [facility] Other 09-15-2022 Evaluation note* Encounter Date Diagnosis Assessment Notes Treatment Notes Treatment Clinical Notes Jun, Coronary artery disease involving eek coronary artery of eek heart without angina pectoris (ICD-10 - I25.10) Jun, Spinal stenosis at L4-L5 level (ICD-10 - M48.061) This is a gentleman with coronary artery disease utilizing nitroglycerin and Isomide, chronic kidney disease, and spondylolisthesis with neurogenic claudication and a left foot drop. He has yet to have physical therapy so this will be ordered now. I will see the patient in 7 to 8 weeks; if no improvement he will need surgical intervention. X-ray reports showing spondylolisthesis at L4-5 and the MRI which shows the same were independently reviewed as well as his overall history with significant comorbidities. Jun, Type 2 diabetes mellitus with diabetic chronic kidney disease (ICD-10 - E11.22) Jun, Spondylolisthesi s, lumbar region (ICD-10 - M43.16) Jun, Foot drop, left (ICD-10 - M21.372) [facility] Other 08-29-2022 Evaluation note* Encounter Date Diagnosis Assessment Notes Treatment Notes Treatment Clinical Notes May, Spinal stenosis at L4-L5 level (ICD-10 - M48.061) May, Spinal stenosis of lumbar region with neurogenic claudication (ICD-10 - M48.062) [facility] Other 08-17-2022 History general Narrative - Reported* Type Description Date Medical History High blood pressure Medical History T2DM Medical History ND Medical History 05/22 EGD and [facility] copy-2 cm tubular adenoma removed Medical History injections - back pain Surgical History neck Surgical History first rib removed Surgical History lower back - injections Surgical History cardiac stents - Dr. Florian Surgical History Colonoscopy 09/12/21 Hospitalization History heart attack 08/24/20 Hospitalization History see above [facility] Other 08-17-2022 History general Narrative - Reported* Type Description Date Medical History High blood pressure Medical History T2DM Medical History ND Medical History 05/22 EGD and [facility] copy-2 cm tubular adenoma removed Medical History injections - back pain Medical History anemia Medical History Arthritis Medical History cataracts Medical History heart disease Medical History high cholesterol Medical History thyroid disease Medical History kidney stones Surgical History neck Surgical History first rib removed Surgical History lower back - injections Surgical History cardiac stents - Dr. Florian Surgical History Colonoscopy 09/12/21 Hospitalization History heart attack 08/24/20 17 Hospitalization History see above [facility] Other 08-09-2022 Evaluation note* Encounter Date Diagnosis Assessment Notes Treatment Notes Treatment Clinical Notes May, Type 2 diabetes mellitus with diabetic chronic kidney disease (ICD-10 - E11.22) controlled, continue current regimen. May, Left lumbar radiculopathy (ICD-10 - M54.16) Chronic left-sided pain that goes down the left leg. We have talked about this multiple visits in the past he has never wanted to work this up. He does have significant weakness mainly with dorsiflexion of his foot knee extension and flexion. I did convince him that we should work this up at this time. He was started an x-ray he does need an MRI given the significant weakness that he has. I do not think physical therapy would benefit him at this time. I do think we need an MRI for presurgical planning. May, Left leg weakness (ICD-10 - R29.898) See above. May, Anemia, chronic disease (ICD-10 - D63.8) We will update labs. May, Thyroid nodule (ICD-10 - E04.1) Has seen ENT and thyroid nodules were biopsied those were negative. May, Stage 3b chronic kidney disease (CKD) (ICD-10 - N18.32) We will update labs. May, Prostate cancer screening (ICD-10 - Z12.5) May, Hypertension, essential (ICD-10 - I10) [facility] Other 05-09-2022 Evaluation note* Encounter Date Diagnosis Assessment Notes Treatment Notes Treatment Clinical Notes February, Type 2 diabetes mellitus with diabetic chronic kidney disease (ICD-10 - E11.22) A1c is 3 today we will continue current medications. February, Lumbar radiculopathy (ICD-10 - M54.16) Left lumbar radiculopathy with weakness mainly of the hamstrings. I did strongly encourage starting a work-up with x-ray and MRI. I do not think physical therapy would be of benefit at this time. He reports that he has a lot of funerals to go to at this time and he will call us if he wants to work this up. I discussed with them that there is a time where his weakness will not improve if he does not do anything about this. February, Prostate cancer screening (ICD-10 - Z12.5) February, Hypertension, essential (ICD-10 - I10) February, Stage 3b chronic kidney disease (CKD) (ICD-10 - N18.32) [facility] Other 02-08-2022 Evaluation note* Encounter Date Diagnosis Assessment Notes Treatment Notes Treatment Clinical Notes Nov, Type 2 diabetes mellitus with diabetic chronic kidney disease (ICD-10 - E11.22) a1c is great, will leave things alone but due to lower GFR with last labs should decrease januvia to 50mg. Nov, Hypertension, essential (ICD-10 - I10) controlled. Nov, Thyroid nodule (ICD-10 - E04.1) had been monitored by Dr. Dumont- will set up with ENT for potential biopsy. Nov, Left lumbar radiculopathy (ICD-10 - M54.16) offered to update MRI to go to PM or neurosurgery, he declined. offered PT he also declined. will call if he changes his mind. no red flag symptoms. [facility] Other 01-27-2022 Evaluation note* Encounter Date Diagnosis Assessment Notes Treatment Notes Treatment Clinical Notes Oct, Type 2 diabetes mellitus with diabetic chronic kidney disease (ICD-10 - E11.22) [facility] Other 01-27-2022 Evaluation note* Encounter Date Diagnosis Assessment Notes Treatment Notes Treatment Clinical Notes Oct, Thyroid nodule (ICD-10 - E04.1) [facility] Other 01-26-2022 Evaluation note* Encounter Date Diagnosis Assessment Notes Treatment Notes Treatment Clinical Notes Oct, Hemorrhoids (ICD-10 - K64.9) Oct, Diverticulosis (ICD-10 - K57.90) Oct, Gas (ICD-10 - R14.3) REASSURED CAN USE OTC PROBIOTIC Oct, Other REPEAT COLON IN 5 YEARS [facility] Other 11-23-2021 Evaluation note* Encounter Date Diagnosis Assessment Notes Treatment Notes Treatment Clinical Notes Aug, Screening for colon cancer (ICD-10 - Z12.11) [facility] Other 11-04-2021 Evaluation note* Encounter Date Diagnosis Assessment Notes Treatment Notes Treatment Clinical Notes Aug, Anemia, chronic disease (ICD-10 - D63.8) will recheck labs. Aug, Hypertension, essential (ICD-10 - I10) bordereline in office, will continue to monitor. Aug, Type 2 diabetes mellitus with diabetic chronic kidney disease (ICD-10 - E11.22) sugars improving. continue current tx. Aug, Left flank pain (ICD-10 - R10.9) seems to be similar complaint as last time, given flexeril but has not tired. on exam seems to be msk in origin. tender to palpation over left lower ribs and paraspinal muscles with increased tension. no pain into abdomen or groin. hx of kidney stones does not feel similar. recent dry heaves. i recommended heat and flexeril he will call in 2 weeks if not improving at that time i think imaging with xray will be warranted. Aug, Colon cancer screening (ICD-10 - Z12.11) looking back last colonoscopy 2017 by oc, 3 year recall. will call pt to see if he is okay with referral back. did not discuss this in office. [facility] Other discharge summary Author Barbie Osborn [facility] September 11, 2023 12:46pm Note Date/Time September 11, 2023 1 2:34pm [facility] [address] [place] [address] Discharge Summary Signed Patient: Dave Lugo MR#: [id number] : 1950 Acct:[id number] Age/Sex: 73 / M Adm Date: 3 Loc: Room: [address] [place] [address]: Barbie Osborn MD Copies to: DO Barbie Roca MD~ Providers Date of Discharge: 09/11/23 Discharging Provider: Barbie Osborn Primary Care Provider: Lolita Adorno Consults: 09/08/23 13:53 Consult to Cardiology Routine Consult to Pulmonology Routine 09/08/23 15:50 Consult to Gastroenterology Routine 09/09/23 11:52 Consult to Nephrology Routine 09/10/23 08:35 Consult to Occupational Therapy Routine Consult to Physical Therapy Routine Discharge Diagnosis (1) Acute kidney injury superimposed on CKD: (2) Chronic kidney disease, stage III (moderate): (3) Hypertensive chronic kidney disease with stage 1 through stage 4 chronic kidney disease, or unspecified chronic kidney disease: (4) Type 2 diabetes mellitus with diabetic chronic kidney disease: (5) Anemia of renal disease: (6) Proteinuria: (7) Abdominal pain: Final Diagnosis Final Discharge Diagnosis: As above Summary Hospital Course Hospital course: Patient is a pleasant 73-year-old male with past medical history of coronary disease status post PCI, diabetes mellitus type 2, hypertension, chronic kidney disease stage III and hyperlipidemia. Presented to ER with complaint of severe epigastric and mid abdominal pain that woke him up and rated as 10 of 10 intensity. He was found to be hypertensive emergency in the emergency room and the severity of pain started on Cleviprex drip and admitted to ICU. Troponin was mildly elevated due to concern for anginal equivalent cardiology was consulted. No further intervention recommended by cardiology. Given the severity of the pain with no significant abnormality on CTA abdomen/pelvis in the emergency room and on examination no signs of surgical abdomen. GI service was consulted patient underwent EGD showing patchy duodenitis. GI impression of acute on chronic pancreatitis with plan to obtain stool for pancreatic elastase which patient is not able to provide so far. Blood pressure has been well-controlled with resolution of abdominal pain. He did develop acute on chronic renal failure due to contrast-induced nephropathy and nephrology was consulted with improvement in renal function. Patient has been tolerating regular diet with nofurther abdominal pain. Given his improved symptoms he will be discharged home with recommendation for outpatient follow-up with nephrology and gastroenterology regarding biopsy result and further workup due to concern for acute exacerbation of chronic pancreatitis. He is advised to hold metformin until renal function improves and repeat renal function in 3 days. Avoid NSAIDs. Condition Condition at Discharge: Stable Status at Discharge Functional status at discharge: independent ambulation Overall status at discharge: patient is back to baseline Time Spent with Patient Time spent providing/coordinating discharge services (# min): 38 Surgeries and Procedures Operation Date: 09/09/23 11:05 Actual Procedures p DH EGD(Not Applicable) - Joao Coley MD Diagnostic Studies Completed and Pending Studies Pending studies at discharge: 09/08/23 17:13 Pancreatic Elastase, Stool Routine 09/09/23 15:32 Immunofixation, (RADHA), Urine Routine Protein Electro, Random Urine Routine Labs on day of discharge: 09/11/23 11:32: POC Glucose 304 09/11/23 04:23: PHA Creatinine Clear 27.23, Sodium 139, Potassium 4.2, Chloride 109 H, Carbon Dioxide 24.0, Anion Gap 10.2, BUN 38 H, Creatinine 2.18 H, Est GFR(CKD-EPI) 31.193, Glucose 136 H, Calcium 8.4 L 09/11/23 04:23: Corrected WBC 8.0, Uncorrected WBC Count 8.0, RBC 3.64 L, Hgb 10.5 L, Hct 30.6 L, MCV 84.1, MCH 28.9, MCHC 34.3, RDW 13.2, Plt Count 158, MPV 9.0, Neut % (Auto) 60.7, Lymph % (Auto) 21.8, [place] % (Auto) 12.6, Eos % (Auto) 4.4, Baso % (Auto) 0.5, Nucleat RBC Rel Count 0.0, Neut # (Auto) 4.8, Lymph # (Auto) 1.7, [place] # (Auto) 1.0 H, Eos # (Auto) 0.4, Baso # (Auto) 0.0 09/10/23 21:16: POC Glucose 183 09/10/23 16:12: POC Glucose 193 09/10/23 04:39: CA 19-9 Antigen 23 09/09/23 13:43: Serum Total Protein 5.6 L, Albumin (Send Out) 3.2, Globulin (PEP) 2.4, Albumin/Globulin (PEP) 1.3, Ritky-5-Yuvcznvuk 0.2, Cgdqu-9-Qzjalpypv 0.7, Beta Globulins 0.7, Gamma Globulins 0.8, M-Donaldo Not observed, PEP Note , IgG 793, IgA 159, IgM 47, Serum Immunofixation , [place] LC, Quant 52.6 H, Free [place] LC, Quant 28.0 H, [place]/Lambda Ratio 1.88 H Exam Physical Exam Vital Signs: Temp Pulse Resp BP Pulse Ox O2 Del Method 98.1 F 74 18 128/58 L 95 Room Air 09/11/23 08:00 09/11/23 11:37 09/11/23 11:37 09/11/23 11:37 09/11/23 11:37 09/11/23 11:37 Const General: cooperative Orientation: alert, awake and oriented x3 Resp Effort & Inspection: normal respiratory effort and able to speak in complete sentences Auscultation: no rales, no rhonchi and no wheezes Cardio Rate: regular rate Rhythm: regular rhythm Heart Sounds: S1 normal and S2 normal GI Inspection: non-distended Palpation: soft, not firm, no guarding and nontender Neuro General: patient alert, patient awake, patient oriented x3, moves all extremities, no focal motor deficits and CN's II-XI intact bilaterally Cognition: normal cognition Speech: speech normal Extrem General: no clubbing, cyanosis or edema and no calf tenderness Discharge Plan Discharge Plan Activity: Ambulate as Tolerated Diet: Diabetic, Low-Sodium and Low-Cholesterol Prescriptions: New pantoprazole 40 mg Tablet,Delayed Release (Dr/Ec) 40 mg PO DAILY 14 Days Qty: 14 0RF Continued nitroglycerin 0.4 mg Tablet, Sublingual 0.4 mg Sublingual Q5M PRN (Reason: Chest Pain) 30 Days Qty: 30 2RF feucynfx-bsx-pvzrpgx gluconate [Centrum] 9 mg iron/ 15 mL (15 mL) Liquid 15 ml PO DAILY atorvastatin 20 mg Tablet 20 mg PO QHS Patient Comments: 20mg filled outpatient, has always received 80mg at this facility with good effect ferrous sulfate 325 mg (65 mg iron) tablet 325 mg PO QAM Patient Comments: TAKE 1 TABLET BY MOUTH EVERY DAY isosorbide mononitrate 30 mg tablet extended release 24 hr 30 mg PO QAM Patient Comments: TAKE 1 TABLET BY MOUTH EVERY DAY cyanocobalamin (vitamin B-12) [Vitamin B-12] 1,000 mcg Tablet 1,000 mcg PO QAM aspirin 81 mg tablet,chewable 81 mg PO QAM carvedilol 25 mg Tablet 25 mg PO BID.WITH.MEALS 30 Days Qty: 60 0RF Rx Instructions: Further refills, or dose adjustment, per PCP Januvia 100 mg tablet 50 mg PO BID hydralazine 50 mg tablet 50 mg PO BID Rx Instructions: Further refills, or dose adjustment, per PCP cyclobenzaprine 10 mg tablet 10 mg PO QHS PRN (Reason: back spasms) insulin glargine [Lantus U-100 Insulin] 100 unit/mL solution 8 unit Sub-Q BID Rx Instructions: Further refills per PCP Held metformin 500 mg tablet 500 mg PO BID Hold Instructions: Until renal function improves Patient Comments: TAKE 1 TABLET BY MOUTH TWICE A DAY Other Ambulatory Orders: Basic Metabolic Panel (Routine) Timeframe: 3 Days Location: Determined by Patient Ordered By: Barbie Osborn Follow Up: Gabriela Florian MD [Active Staff] - 10/16/23 9:10 am Documented By: Barbie Osborn MD 09/11/23 1232 Signed By: <Electronically signed by Barbie Osborn MD> 09/11/23 1246 [facility] Work Phone: Evaluation noteNo InformationNort [employer] Other Evaluation noteNo assessment information available [facility] Work Phone: Evaluation note* Diagnosis Onset Date Resolution Status Accelerated hypertension acu te CAD (coronary artery disease) acute Diabetes mellitus with hyperglycemia acute Hyperlipemia acute Leg weakness, bilateral acut e Lumbar stenosis with neurogenic claudication acute Nausea acute Spondylolisthesis, lumbar region acute [facility] Work Phone: Evaluation note* Diagnosis Onset Date Resolution Status Abdominal pain acute Accelerated hypertension acu te Acute kidney injury superimposed on CKD acute MEAGHAN (acute kidney injury) ac ivan Anemia of renal disease acut e Atypical chest pain acute CAD (coronary artery disease) acute Chronic kidney disease, stage III (moderate) acute Chronic pancreatitis acute Duodenitis acute Dyslipidemia acute Elevated troponin acute [id number] acute Hypertensive emergency acute Proteinuria acute Stented coronary artery acut e Type 2 diabetes mellitus wit h diabetic chronic kidney disease acute Diabetes chronic [facility] Work Phone: Evaluation note* Diagnosis 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of eek coronary artery of eek heart without angina pectoris Essential hypertension Unspecified essential hypertension History of ND (myocardial infarction) Old myocardial infarction Mixed hyperlipidemia S/P PTCA (percutaneous transluminal coronary angioplasty) Postsurgical percutaneous transluminal coronary angioplasty status Stage 3a chronic kidney disease (CMS/HCC) Current smoker on some days Type 2 diabetes mellitus without complication, with long-term current use of insulin (CMS/HCC) Overweight with body mass index (BMI) of 27 to 27.9 in adult Atherosclerotic heart disease of eek coronary artery without angina pectoris documented in this encounter [facility] Work Phone: Evaluation note* Diagnosis Onset Date Resolution Status Chronic kidney disease, stage III (moderate) acute Hyperlipemia acute Type 2 diabetes mellitus wit h diabetic chronic kidney disease acute [facility] Work Phone: Evaluation note* Diagnosis Onset Date Resolution Status Chronic kidney disease, stage III (moderate) acute Hyperlipemia acute Type 2 diabetes mellitus wit h diabetic chronic kidney disease acute Acute kidney injury superimposed on CKD acute Epigastric pain acute [facility] Work Phone: Evaluation note* Diagnosis Onset Date Resolution Status Chronic kidney disease, stage III (moderate) acute Hyperlipemia acute Type 2 diabetes mellitus wit h diabetic chronic kidney disease acute Acute kidney injury superimposed on CKD acute Epigastric pain acute Type 2 diabetes mellitus wit h diabetic chronic kidney disease acute [facility] Work Phone: Evaluation note* Diagnosis Onset Date Resolution Status Chronic kidney disease, stage III (moderate) acute Hyperlipemia acute Type 2 diabetes mellitus wit h diabetic chronic kidney disease acute Acute kidney injury superimposed on CKD acute Epigastric pain acute Chronic kidney disease, stage III (moderate) acute HTN (hypertension) acute Medicare annual wellness visit, subsequent acute Type 2 diabetes mellitus wit h diabetic chronic kidney disease acute [facility] Work Phone: Evaluation note* Diagnosis Onset Date Resolution Status Chronic kidney disease, stage III (moderate) acute HTN (hypertension) acute Medicare annual wellness visit, subsequent acute Type 2 diabetes mellitus wit h diabetic chronic kidney disease acute Anemia of renal disease acut e Chronic kidney disease, stage III (moderate) acute Dyslipidemia acute [id number] acute Secondary hyperparathyroidism acute Type 2 diabetes mellitus wit h diabetic chronic kidney disease acute [facility] Work Phone: [facility] general Narrative - Reported* Type Description Date Medical History High blood pressure Medical History DM T Medical History Heart attack Medical History 05/22 EGD and [facility] copy-2 cm tubular adenoma removed Medical History injections - back pain Surgical History neck Surgical History first rib removed Surgical History lower back Surgical History cardiac stents - Dr. Florian Hospitalization History heart attack 08/24/20 Hospitalization History see above [facility] Other [facility] general Narrative - Reported* Type Description Date Medical History High blood pressure Medical History DM T Medical History Heart attack Medical History 05/22 EGD and [facility] copy-2 cm tubular adenoma removed Medical History injections - back pain Surgical History neck Surgical History first rib removed Surgical History lower back Surgical History cardiac stents - Dr. Florian Surgical History Colonoscopy 09/12/21 Hospitalization History heart attack 08/24/20 17 Hospitalization History see above [facility] Other [facility] general Narrative - Reported* Type Description Date Medical History High blood pressure Medical History T2DM Medical History ND Medical History 05/22 EGD and [facility] copy-2 cm tubular adenoma removed Medical History injections - back pain Surgical History neck Surgical History first rib removed Surgical History lower back - injections Surgical History cardiac stents - Dr. Florian Surgical History Colonoscopy 09/12/21 Hospitalization History heart attack 08/24/20 17 Hospitalization History see above [facility] Other [facility] general Narrative - Reported* Type Description Date Medical History High blood pressure Medical History T2DM Medical History ND Medical History 05/22 EGD and [facility] copy-2 cm tubular adenoma removed Medical History injections - back pain Medical History anemia Medical History Arthritis Medical History cataracts Medical History heart disease Medical History high cholesterol Medical History thyroid disease Medical History kidney stones Surgical History neck Surgical History first rib removed Surgical History lower back - injections Surgical History cardiac stents - Dr. Florian Surgical History Colonoscopy 09/12/21 Surgical History lumbar fusion Hospitalization History heart attack 08/24/20 17 Hospitalization History see above [facility] Other [facility] general Narrative - Reported* Type Description Date Medical History High blood pressure Medical History T2DM Medical History ND Medical History 05/22 EGD and [facility] copy-2 cm tubular adenoma removed Medical History injections - back pain Medical History anemia Medical History Arthritis Medical History cataracts Medical History heart disease Medical History high cholesterol Medical History thyroid disease Medical History kidney stones Surgical History neck Surgical History first rib removed Surgical History lower back - injections Surgical History cardiac stents - Dr. Florian Surgical History Colonoscopy 09/12/21 Surgical History lumbar fusion Hospitalization History heart attack 08/24/20 17 Hospitalization History see above Hospitalization History stomach pain [facility] [place] [facility] Other Hospital Discharge instructions Additional Instructions Take the antibiotic clindamycin 3 times a day for 10 days take with food Take the prednisone twice a day for 5 days Carefully monitor your blood sugar while taking the prednisone as it can elevate your blood sugar May apply warm compresses to the area May use your antibiotic mouthwash that you have at home twice a day See your family doctor this week for recheck Return to the ER for worsening redness swelling pain fever chills or any [facility] Work Phone: Hospital Discharge instructionsAmbulatory Orders* PT/OT/SP OutPatient Referral Time Frame: 1 Day, Location: Determined By Patient Additional Instructions DISCHARGE INSTRUCTIONS FOR POSTERIOR LUMBAR INTERBODY FUSION OR POSTERIOR LUMBAR FUSION DIET-regular home diet ACTIVITY - Wear brace when sitting and standing and out of bed - Activity as tolerated; No lifting over 15 pounds - Stairs as tolerated - Walk as much as possible -May drive when not taking narcotics -May shower today. When taking first shower leave dressing on complete shower remove dressing dry the wound replace dressing if drainage present if no drainage present dressing is not needed - Keep incision clean and dry OTHER - Call your provider's office for any fever, chills, nausea, vomiting, headache, numbness, or tingling. - Call your providers office and make an appointment to see your provider in 2 weeks. Use ice as needed for back spasm 20 minutes every 1-2 hours Use the prednisone provided if the leg pain returns to a significant degree after surgery. If it does not do not [facility] the [facility]one[facility] Work Phone: Hospital Discharge instructions Additional Instructions Rest ice elevate your hand and knee Keep the splint on the hand do not remove apply ice keep it clean and dry Wear the knee immobilizer anytime you are up moving around to support and stabilize the knee Take 1 hydrocodone every 6 hours for severe pain Follow-up with [facility] Return to the ER for worsening pain additional injuries or any other concerns [facility] Work Phone: Hospital Discharge instructions Additional Instructions Monitor glucose levels as before.[facility] Work Phone: Reason for referral (narrative)* Consultation (Routine) - Authorized Specialty Diagnoses / Procedures Referred By Contac t Referred To Contact Cardiology Diagnoses 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of eek coronary artery of eek heart without angina pectoris Procedures Follow Up In Cardiology Gabriela Florian MD [facility], [address] [address] Gabriela Florian MD [address] [facility], [facility] [address] [place] [address] Referral ID Status Reason Start Date Expiration Date V isits Requested Visits Authorized [id number] Authorized 10/16/2023 10/15/2024 1 1 [facility] Work Phone: Summary Purpose Family History Unknown Family Member Name Dates Details Family history of cardiac pa cemaker: Mother(V17.49, Z82.49) Comments: age 79; Status:Active No pertinent family history: Father(V49.89, Z78.9) Status:Active Family history of diabetes m ellitus: Sister, Brother(V18.0, Z83.3) Status:Active Unknown Family Member Name Dates Details Family history of diabetes m ellitus: Sister, Brother(V18.0, Z83.3) Status:Active No pertinent family history: Father(V49.89, Z78.9) Status:Active Family history of cardiac pa cemaker: Mother(V17.49, Z82.49) Comments: age 79; Status:Active Unknown Family Member Name Dates Details Family history of diabetes m ellitus: Sister, Brother(V18.0, Z83.3) Status:Active No pertinent family history: Father(V49.89, Z78.9) Status:Active Family history of cardiac pa cemaker: Mother(V17.49, Z82.49) Comments: age 79; Status:Active Relationship Condition Age at Onset Recorded Date/T tony sister Cerebral aneurysm Unknown brother Myocardial infarction Unknown Not Specified Type 2 diabetes mellitus Unknown Unknown Family Member Name Dates Details Family history of diabetes m ellitus: Sister, Brother(V18.0, Z83.3) Status:Active No pertinent family history: Father(V49.89, Z78.9) Status:Active Family history of cardiac pa cemaker: Mother(V17.49, Z82.49) Comments: age 79; Status:Active Unknown Family Member Name Dates Details Family history of diabetes m ellitus: Sister, Brother(V18.0, Z83.3) Status:Active No pertinent family history: Father(V49.89, Z78.9) Status:Active Family history of cardiac pa cemaker: Mother(V17.49, Z82.49) Comments: age 79; Status:Active Unknown Family Member Name Dates Details Family history of diabetes m ellitus: Sister, Brother(V18.0, Z83.3) Status:Active No pertinent family history: Father(V49.89, Z78.9) Status:Active Family history of cardiac pa cemaker: Mother(V17.49, Z82.49) Comments: age 79; Status:Active Unknown Family Member Name Dates Details Family history of diabetes m ellitus: Sister, Brother(V18.0, Z83.3) Status:Active No pertinent family history: Father(V49.89, Z78.9) Status:Active Family history of cardiac pa cemaker: Mother(V17.49, Z82.49) Comments: age 79; Status:Active Unknown Family Member Name Dates Details Family history of diabetes m ellitus: Sister, Brother(V18.0, Z83.3) Status:Active No pertinent family history: Father(V49.89, Z78.9) Status:Active Family history of cardiac pa cemaker: Mother(V17.49, Z82.49) Comments: age 79; Status:Active Relationship Condition Age at Onset Recorded Date/T tony sister Cerebral aneurysm Unknown brother Myocardial infarction Unknown Not Specified Type 2 diabetes mellitus Unknown father Diabetes mellitus Unknown Unknown Not Specified Diabetes mellitus Unknown Presence of cardiac pacemaker Unknown Relationship Condition Age at Onset Recorded Date/T tony sister Cerebral aneurysm Unknown brother Myocardial infarction Unknown mother Type 2 diabetes mellitus Unknown father Diabetes mellitus Unknown Unknown mother Diabetes mellitus Unknown Presence of cardiac pacemaker Unknown Advance Directives Advance Directive Response Recorded Date/ Time Advance Directives No August 12:39pm Advance Directive Response Recorded Date/ Time Advance Directives No August 11:39am Chief Complaint * DAVE LUGO is being seen for a 6 month follow-up of. * Patient is in the office for follow-up for the problems noted below. He has done well since his last visit and denies any angina orthopnea PND or palpitations. 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 Education provided to prevent future falls. His examination is only remarkable for overweight. His medication were reviewed. He tolerated the medicine without any problems. * ASSESSMENT AND PLAN: * 1. Coronary artery disease, stable. * 2. Status post bare metal stent in the right coronary artery in 2006 with repeat angioplasty of theRCA 2016. Nuclear stress test September 2020 revealed inferolateral infarction EF 52%, no ischemia, risk factors are under control. * 3. History of lower extremity edema caused by the amlodipine resolved by discontinuation amlodipine * 5. Hyperlipidemia, under control, lipid profile data from PCP were requested * 6. Hypertension, under control. * 7. Overweight, encouraged patient to cut back calorie intake and exercise on regular basis. * 8. 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 No heart failure or LV systolic dysfunction. Secondary preventive measures are in place * 9. Mild but active tobacco use, encouraged the patient to quit smoking completely * DAVE LUGO is being seen for a 6 month follow-up of. * Patient is in the office for follow-up for the problems noted below. Since his last visit he had a short admission to the hospital for atypical chest pain and it was not cardiac in origin. The patient is currently asymptomatic continue to be very active in his lifestyle and denies any angina orthopnea PND or symptoms of palpitations. His labs have been followed very closely and there has been no concern his medications were reviewed and he tolerated them without a problem * ASSESSMENT AND PLAN: * 1. Coronary artery disease, stable. Recent admission to the hospital data were reviewed and shared with the patient with no need to change medications or have further cardiac investigations. Guideline directed medical therapy for ischemic heart disease is in place * 2. Status post bare metal stent in the right coronary artery in 2006 with repeat angioplasty of theRCA 2016. Nuclear stress test September 2020 revealed inferolateral infarction EF 52%, no ischemia, risk factors are under control. * 3. History of lower extremity edema caused by the amlodipine resolved by discontinuation amlodipine * 5. Hyperlipidemia, under control, * 6. Hypertension, under control. * 7. Overweight, encouraged patient to cut back calorie intake and exercise on regular basis. * 8. 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 No heart failure or LV systolic dysfunction. Secondary preventive measures are in place * 9. Mild but active tobacco use, encouraged the patient to quit smoking completely * DAVE LUGO is being seen for a 6 month follow-up of. * Patient is in the office for follow-up for the problems noted below accompanied by his karon travis. He recently underwent lumbar spinal surgery by Dr. Miller at [facility] with no complication he continuesto wear his vest. Patient has no angina orthopnea PND lower extremity edema. He continues to smoke s omething that I advised him against again. Cardiac and pulm examinations were normal. * ASSESSMENT AND PLAN: * 1. Coronary artery disease, stable. No cardiac investigations are needed continue aggressive risk factors modifications. * 2. Status post bare metal stent in the right coronary artery in 2006 with repeat angioplasty of theRCA 2016. Nuclear stress test September 2020 revealed inferolateral infarction EF 52%, no ischemia, risk factors are under control. * 3. Recent back surgery for lumbar spinal disease with no complications. He is recovering * 5. Hyperlipidemia, under control, * 6. Hypertension, under control. * 7. Overweight, encouraged patient to cut back calorie intake and exercise on regular basis. * 8. 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 No heart failure or LV systolic dysfunction. Secondary preventive measures are in place * 9. Mild but active tobacco use, encouraged the patient to quit smoking completely * DAVE LUGO is being seen for a 6 month follow-up of. * Patient is in the office for follow-up for the problems noted below. He has had no cardiac events since he was last seen. Recent lab data which I reviewed and discussed with the patient were acceptable. His lipids are under excellent control. He has mild anemia due to chronic kidney disease and hiscreatinine is 1.7 which is chronic. His diabetes seems to be under control. He denies any angina orsymptoms of heart failure. The patient has tendency to fall due to weakness in his legs. He smokes occasionally and he was discouraged from continuing tobacco use. * ASSESSMENT AND PLAN: * 1. Coronary artery disease, stable. No cardiac investigations are needed continue aggressive risk factors modifications. * 2. Status post bare metal stent in the right coronary artery in 2006 with repeat angioplasty of theRCA 2016. Nuclear stress test September 2020 revealed inferolateral infarction EF 52%, no ischemia, risk factors are under control. * 3. Patient is at risk for fall, education to prevent falls were discussed with him. * 5. Hyperlipidemia, under excellent control * 6. Hypertension, under control. * 7. Overweight, encouraged patient to cut back calorie intake and exercise on regular basis. * 8. 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 No heart failure or LV systolic dysfunction. Secondary preventive measures are in place * 9. Mild but active tobacco use, encouraged the patient to quit smoking completely * 10. Chronic kidney disease due to diabetes. This is stable. * 11. Mild anemia due to chronic kidney disease and currently inconsequential. * 12. Slight LV systolic dysfunction, he is on vasodilators with hydralazine and nitrates. Avoided TITI inhibitors or ARB due to his kidney disease * DAVE LUGO is being seen for a 6 month follow-up of. * Patient is in the office for follow-up for the problems noted below. He has had no cardiac events since he was last seen. Recent lab data which I reviewed and discussed with the patient were acceptable. His lipids are under excellent control. He has mild anemia due to chronic kidney disease and hiscreatinine is 1.7 which is chronic. His diabetes seems to be under control. He denies any angina orsymptoms of heart failure. The patient has tendency to fall due to weakness in his legs. He smokes occasionally and he was discouraged from continuing tobacco use. * ASSESSMENT AND PLAN: * 1. Coronary artery disease, stable. No cardiac investigations are needed continue aggressive risk factors modifications. * 2. Status post bare metal stent in the right coronary artery in 2006 with repeat angioplasty of theRCA 2016. Nuclear stress test September 2020 revealed inferolateral infarction EF 52%, no ischemia, risk factors are under control. * 3. Patient is at risk for fall, education to prevent falls were discussed with him. * 5. Hyperlipidemia, under excellent control * 6. Hypertension, under control. * 7. Overweight, encouraged patient to cut back calorie intake and exercise on regular basis. * 8. 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 No heart failure or LV systolic dysfunction. Secondary preventive measures are in place * 9. Mild but active tobacco use, encouraged the patient to quit smoking completely * 10. Chronic kidney disease due to diabetes. This is stable. * 11. Mild anemia due to chronic kidney disease and currently inconsequential. * 12. Slight LV systolic dysfunction, he is on vasodilators with hydralazine and nitrates. Avoided TITI inhibitors or ARB due to his kidney disease Reason for Referral Reason Evaluate and Treat B ack and Leg Pain Diagnosis 1 Spinal stenosis at L 4-L5 level (M48.061) Referral Organization [facility] urosurgery Referring Provider First Name Clemente Referring Provider Last Name Angela Referring Provider Specialty Neurologica l Surgery [facility] Referred Address [address] [place] [id number] Referred Provider Specialty Physical The rapist Referral Priority Routine Reason left lumbar radiculo riana, spinal stenosis Diagnosis 1 Spinal stenosis of l umbar region with neurogenic claudication (M48.062) Referral Organization [facility] [place] Referring Provider First Name Lolita Referring Provider Last Name Kyree Referring Provider Specialty [facility] [employer] Referred Organization Unknown Facility Referred Provider Specialty Neurological Surgery Referral Priority Routine Reason thyroid nodule 2. 2cm, has been monitoring with with previous PCP Diagnosis 1 Thyroid nodule (E04. 1) [facility] [place] Referring Provider First Name Lolita Referring Provider Last Name Kyree Referring Provider Specialty [facility] [employer] Referred Organization [facility] Referred Provider Jose Badillo Referred Address ,[place], [place],[address] Referred Provider Specialty Otolaryngolo gy Referral Priority Routine General Notes Ligia Amaro 03:38:42 PM >waiting for labs to be drawn prior to sending. [employer] per cert #[id number] per [employer]. Chief Complaint and Reason for Visit Chief Complaint M54.16, E11.22 left lumbar radiculopathy l leg weakness V back and leg pain lip swelling Chief Complaint V back and leg pain lip swelling Chief Complaint V back and leg pain lip swelling stenosis Chief Complaint V back and leg pain lip swelling stenosis stenosis Chief Complaint lip swelling stenosis stenosis stenosis Reason for Visit Accelerated hyperten veronica CAD (coronary artery disease) Diabetes mellitus with hyperglycemia Hyperlipemia Leg weakness, bilateral Lumbar stenosis with neurogenic claudication Nausea Spondylolisthesis, lumbar region Chief Complaint I25.10 I10E78.5 Z98. 61 I25.2 Chief Complaint I25.10 I10E78.5 Z98. 61 I25.2 z00.00 n18.31 Chief Complaint I25.10 I10E78.5 Z98. 61 I25.2 z00.00 n18.31 M43.16 Z12.5 Chief Complaint z00.00 n18.31 M43.16 Z12.5 Right knee pain Chief Complaint M43.16 Z12.5 Right knee pain Chief Complaint Right knee pain S62.336A Chief Complaint Right knee pain S62.336A S62.336D Abdominal Pain Reason for Visit Abdominal pain Accelerated hypertension Acute kidney injury superimposed on CKD MEAGHAN (acute kidney injury) Anemia of renal disease Atypical chest pain CAD (coronary artery disease) Chronic kidney disease, stage III (moderate) Chronic pancreatitis Duodenitis Dyslipidemia Elevated troponin [id number] Hypertensive emergency Proteinuria Stented coronary artery Type 2 diabetes mellitus with diabetic chronic kidney disease Diabetes Chief Complaint Right knee pain S62.336A S62.336D Abdominal Pain S62.336D e11.22 n17.9 n18.9 k86.1 Reason for Visit Abdominal pain Accelerated hypertension Acute kidney injury superimposed on CKD MEAGHAN (acute kidney injury) Anemia of renal disease Atypical chest pain CAD (coronary artery disease) Chronic kidney disease, stage III (moderate) Chronic pancreatitis Duodenitis Dyslipidemia Elevated troponin [id number] Hypertensive emergency Proteinuria Stented coronary artery Type 2 diabetes mellitus with diabetic chronic kidney disease Diabetes Chief Complaint Right knee pain S62.336A S62.336D Abdominal Pain S62.336D e11.22 n17.9 n18.9 k86.1 I25.10 E78.2 Reason for Visit Abdominal pain Accelerated hypertension Acute kidney injury superimposed on CKD MEAGHAN (acute kidney injury) Anemia of renal disease Atypical chest pain CAD (coronary artery disease) Chronic kidney disease, stage III (moderate) Chronic pancreatitis Duodenitis Dyslipidemia Elevated troponin [id number] Hypertensive emergency Proteinuria Stented coronary artery Type 2 diabetes mellitus with diabetic chronic kidney disease Diabetes Chief Complaint I25.10 E78.2 Amb Documentation 3 month follow-up Reason for Visit Chronic kidney disea se, stage III (moderate) Hyperlipemia Type 2 diabetes mellitus with diabetic chronic kidney disease Chief Complaint I25.10 E78.2 Amb Documentation 3 month follow-up FOLLOW UP SCOPE Reason for Visit Chronic kidney disea se, stage III (moderate) Hyperlipemia Type 2 diabetes mellitus with diabetic chronic kidney disease Acute kidney injury superimposed on CKD Epigastric pain Chief Complaint 3 month follow-up FOLLOW UP SC[facility] Reason for Visit Chronic kidney disea se, stage III (moderate) Hyperlipemia Type 2 diabetes mellitus with diabetic chronic kidney disease Acute kidney injury superimposed on CKD Epigastric pain Type 2 diabetes mellitus with diabetic chronic kidney disease Chief Complaint 3 month follow-up FOLLOW UP SCOPE MCSAWV/G0439 E11.22 Z00.00 I10 N18.30 Reason for Visit Chronic kidney disea se, stage III (moderate) Hyperlipemia Type 2 diabetes mellitus with diabetic chronic kidney disease Acute kidney injury superimposed on CKD Epigastric pain Chronic kidney disease, stage III (moderate) HTN (hypertension) Medicare annual wellness visit, subsequent Type 2 diabetes mellitus with diabetic chronic kidney disease Chief Complaint MCSAWV/G0439 E11.22 Z00.00 I10 N18.30 RENAL 6 month follow up Reason for Visit Chronic kidney disea se, stage III (moderate) HTN (hypertension) Medicare annual wellness visit, subsequent Type 2 diabetes mellitus with diabetic chronic kidney disease Anemia of renal disease Chronic kidney disease, stage III (moderate) Dyslipidemia [id number] Secondary hyperparathyroidism Type 2 diabetes mellitus with diabetic chronic kidney disease Additional Source Comments (unrecognized sect ion and content) No Status Records FoundNo Status Records FoundNo Status Records FoundNo Status Records FoundNo Status Records FoundNo Status Records Found INFORMATION SOURCE (unrecogn ized section and content) DATE CREATED AUTHOR 03/31/2018 [facility] DATE CREATED AUTHOR AUTHOR'S ORGANIZ ATION 09/27/2020 [facility] DATE CREATED AUTHOR AUTHOR'S ORGANIZ ATION 04/23/2023 [facility] DATE CREATED AUTHOR AUTHOR'S ORGANIZ ATION 04/23/2023 [employer] DATE CREATED AUTHOR AUTHOR'S ORGANIZ ATION 10/19/2023 [facility] DATE CREATED AUTHOR AUTHOR'S ORGANIZ ATION 04/02/2024 [facility] REASON FOR VISIT (unrecogniz ed section and content) Reason Comments Follow-up 6m Care Teams (unrecognized sec tion and content) Team Status: Inactive Member Role Status Dates Lolita Adorno , DO Primary Care Provider Active Joycelyn Waggoner , [facility]- Emergency Provider Active Team Status: Active Member Role Status Dates Lolita Adorno , DO Primary Care Provider Active Clemente Miller MD Attending Provider Active Team Status: Inactive Member Role Status Dates Lolita Adorno , DO Primary Care Provider, Attendi Provider Active Team Status: Active Member Role Status Dates Lolita Adorno , DO Primary Care Provider Active Team Status: Inactive Member Role Status Dates Lolita Adorno , DO Primary Care Provider Active Clemente Miller MD Attending Provider Active Team Status: Inactive Member Role Status Dates Lolita Adorno , DO Primary Care Provider Active Clemente Miller MD Attending Provider Active Mercedes Cervantes , [place] Other Provider Active Yesica Robledo , [place] Other Provider Active Kylee Santos , [place] Other Provider Active Ligia Vidal , RN Other Provider Active Margaret Hunter , [place] Other Provider Active Saskia Washington , [place] Other Provider Active Fercho Guillermo MD Other Provider Active Wu Nieto MD Other Provider Active Daly King , TRANSITION SPECIALIST Other Provider Active Troy Mendoza , DO Other Provider Active Rusty Gore MD Other Provider Active Klai Isaac , DO Other Provider Active Reyes Patino MD Other Provider Active Sallie Braga MD Other Provider Active Kay Redman , ANP-BC Other Provider Active Leon Royal MD Other Provider Active Linus Nash MD Other Provider Active Barbie Osborn MD Other Provider Active Benjy Vernon MD Other Provider Active Tyler Santos , DO Other Provider Active Beth Soto MD Other Provider Active Ronnell Fletcher MD Other Provider Active Lea Jett , INFORMATION TECHNOLOGY OFFICER-C Other Provider Active Kamron Small MD Other Provider Active Alejandro Pastrana MD Other Provider Active Adrien Orona MD Other Provider Active Barabra Watts , DO Other Provider Active Stephane Rodrigez , DO Other Provider Active Jose Oscar , DO Other Provider Active Dayanna Wayne TRANSITION SPECIALIST Other Provider Active Roberto Cullen , DO Other Provider Active Cem Murillo MD Other Provider Active Ruthann Dickson TRANSITION SPECIALIST Other Provider Active Ro Hart , [place] Other Provider Active Team Status: Inactive Member Role Status Dates Lolita Adorno , DO Primary Care Provider Active Gabriela Florian MD Attending Provider Active Team Status: Inactive Member Role Status Dates Lolita Adorno , DO Primary Care Provider Active Beth Lowe INFORMATION TECHNOLOGY OFFICER-C Attending Provider Active Team Status: Inactive Member Role Status Dates Lolita Adorno , DO Primary Care Provider Active Prieto Santo MD Attending Provider Active Team Status: Inactive Member Role Status Dates Lolita Adorno , DO Primary Care Provider Active Enrique Chaparro , DO Emergency Provider Active Barbie Osborn MD Admit Provider, Attending Provider Active Joao Coley MD Other Provider Active Govind Jim , DO Other Provider Active Yohannes Granda MD Other Provider Active Darian Peters MD Other Provider Active Milo Wells MD Other Provider Active Maxx Gonzalez MD Other Provider Active Yossi Rodriguez , TRANSITION SPECIALIST Other Provider Active Kevin Li MD Other Provider Active Omar Strong MD Other Provider Active Khushboo Hines MD Other Provider Active Nette Holden MD Other Provider Active Mirza Causey MD Other Provider Active David Mcleod MD Other Provider Active Tito Martinez MD Other Provider Active Doloresmagdalene Ramirez , TRANSITION SPECIALIST ACNP-BC Other Provider Active Parrish Mendosa MD Other Provider Active Martínez Briceño MD Other Provider Active Jason Laird MD Other Provider Active Tej Reynoso , DO Other Provider Active Daly Giraldo MD Other Provider Active Juan David Bustamante MD Other Provider Active Clement Campa MD Other Provider Active Donta Ochoa , DO Other Provider Active Team Status: Inactive Member Role Status Dates Lolita Adorno DO Primary Care Provider, Attendi ng Provider Active Barbie Osborn MD Referring Provider Active 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 Relationship Specialty Start Date End Date Lolita Adorno DO [address] [place] [address] PCP - General 10/06/99 Team Status: Inactive Member Role Status Dates Lolita Adorno DO Primary Care Provider Active Start: October 17, 2023 End: October 17, 2023 Gabriela Florian MD Attending Provider Active St art: October 17, 2023 End: October 17, 2023 Team Status: Active Member Role Status Dates Lolita Adorno DO Primary Care Provider Active Start: December 01, 2023 Nicki Deal LPN Attending Provider Active Start: December 01, 2023 Team Status: Inactive Member Role Status Dates Lolita Adorno DO Primary Care Pro vider, Attending Provider Active Start: December 25, 2023 End: December 25, 2023 Team Status: Inactive Member Role Status Dates Lolita Adorno DO Primary Care Provider Active Start: December 26, 2023 End: December 26, 2023 oJao Coley MD Attending Provider Active Start: December 26, 2023 End: December 26, 2023 Team Status: Inactive Member Role Status Dates Lolita Adorno DO Primary Care Pro vider, Attending Provider Active Start: March 22, 2024 End: March 22, 2024 Team Status: Inactive Member Role Status Dates Lolita Adorno DO Primary Care Provider Active Start: April 26, 2024 End: April 26, 2024 Nette Holden MD Attending Provider Active Start : April 26, 2024 End: April 26, 2024 Goals (unrecognized section and content) Goals may be documented in a n alternate section FOR RECORDS PERTAINING TO PATIENTS WHO ARE OR HAVE BEEN ENROLLED IN A CHEMICAL DEPENDENCY/SUBSTANCEABUSE PROGRAM, SOME INFORMATION MAY BE OMITTED. This clinical summary was aggregated from multiple sources. Caution should be exercised in using it in the provision of clinical care. This summary normalizes information from multiple sources, and as a consequence, information in this document may materially change the coding, format and clinical context of patient data. In addition, data may be omitted in some cases. CLINICAL DECISIONS SHOULD BE BASED ON THE PRIMARY CLINICAL RECORDS. [facility] [employer] provides no warranty or guarantee of the accuracy or completeness of information in this document.
[2024-05-21 19:47] VITALS: PULSE 84
--- NOTE | 2024-05-21 19:47 | ECG_ITS ---
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
--- NOTE | 2024-05-21 19:59 | XR_ITS ---
The [address] [address] Patient Name: GAGE PALOMINO MRN: [id number] date: 1950 Sex: M Assigned Patient Location: ER Current Patient Location: ER Accession/Order Number: [id number] Exam Date: 05/21/2024 20:12 Report Date: 05/21/2024 21:40 At the request of: MEGAN MARTINEZ Procedure: XR chest 1V EXAM: XR chest 1V HISTORY: cough, back pain COMPARISON: None. TECHNIQUE: AP portable upright chest x-ray. FINDINGS: Clear lungs without infiltrate or edema. Heart size normal for technique. No pleural effusion or pneumothorax. Elevated right diaphragm, right lung base clear. XR/XR chest 1V IMPRESSION: Negative chest x-ray, no acute findings Electronically authenticated by: JOCELYN ARZATE Date: 05/21/2024 21:40
--- NOTE | 2024-05-21 20:05 | ED_ITS ---
Documented by User: DELANEY Camarillo 05/21/24 21:27 HPI HPI - General Adult General Chief complaint: Weakness Stated complaint: all over body pain, weakness Time Seen by Provider: 05/21/24 19:38 Source: patient Mode of arrival: Wheelchair Limitations: no limitations History of Present Illness HPI narrative: Patient is a 74-year-old male who presents to the ER I felt like I have been run over by a truck. Patient reports symptoms worsening over the past 4 days, severe pain from the mid shoulder blades in his back down to his lumbar spine. Worse with movement, present at rest. History of chronic deficit involving the left leg with foot drop, some paresthesias from a prior back surgery 1 year ago. He denies any chest discomfort but has had a cough. Denies shortness of breath. Patient appears uncomfortable wincing at times even at rest describes the pain as sharp aching going from neck to lower back. He is brought in by family. 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 Patient denies any nausea or vomiting. Denies headache or visual disturbance. Onset (ago): day(s) (4) Location: Reports neck, back and buttocks Radiation: Reports back and extremity (all four) Severity: moderate Quality: Reports aching and sharp Pain Consistency: Reports constant Relieving factors: Reports none Exacerbating factors: Reports movement Associated symptoms: Denies denies other symptoms Related Data Home Medications ?Medication ?Instructions ?Recorded ?Confirmed aspirin 81 mg tablet,delayed 81 mg PO DAILY 05/21/24 05/21/24 release atorvastatin 20 mg tablet 20 mg PO DAILY 05/21/24 05/21/24 carvedilol 25 mg tablet 25 mg PO Q12H 05/21/24 05/21/24 cyclobenzaprine 10 mg tablet 10 mg PO BEDTIME 05/21/24 05/21/24 ferrous sulfate 325 mg (65 mg 325 mg PO DAILY 05/21/24 05/21/24 iron) tablet furosemide 40 mg tablet 40 mg PO DAILY 05/21/24 05/21/24 hydralazine 50 mg tablet 75 mg PO Q12H 05/21/24 05/21/24 insulin glargine 100 unit/mL (3 10 unit subcut DAILY 05/21/24 05/21/24 mL) subcutaneous pen (Lantus Solostar U-100 Insulin) isosorbide mononitrate 30 mg 30 mg PO DAILY 05/21/24 05/21/24 tablet,extended release 24 hr pantoprazole 40 mg tablet,delayed 40 mg PO DAILY 05/21/24 05/21/24 release Allergies Allergy/AdvReac Type Severity Reaction Status Date / Time oxycodone [From Percocet] Allergy Severe facial Verified 11/04/23 11:40 swelling Opioid HPI Opioid Management Most Recent Opioid Data: Last Pain Scale 10 05/21/24 22:34 Last ED Pain Assessment 05/21/24 19:47 Review of Systems ROS Constitutional Denies: fever or chills Eyes Denies: change in vision or blurry vision Ears, nose, mouth, and throat Reports: neck pain (posterior lower); Denies: throat pain or dry mouth Cardiovascular Denies: chest pain Respiratory Reports: cough; Denies: shortness of breath Gastrointestinal Denies: abdominal pain, nausea or vomiting Genitourinary Denies: painful urination Musculoskeletal Reports: back pain, neck pain, extremity pain, joint pain and muscle weakness; Denies: muscle cramps Integumentary/Breast Denies: rash Neurological Denies: headache Allergic/Immunologic Denies: hives PFSH PFSH Social History Smoking status: Current every day smoker Exam Narrative Exam Narrative: Nurses notes and vital signs reviewed and patient is not hypoxic. General: The patient appears uncomfortable, grimacing with movements. Patient occasionally jerking in bed complaining of pain between his shoulder blades radiating to his lower back. Skin: Warm, dry, no pallor noted. Evidence of rash. Head: Normocephalic, atraumatic Neck: Supple, trachea mid-line, mild paravertebral lower cervical muscle spasm and tenderness. Limited range of motion unable to chin to chest with prior neck surgery. No meningeal signs noted with motion. No lymphadenopathy Eye: Pupils are equal, round and reactive to light, EOMI Ears, Nose, Mouth, and Throat: TM are clear, normal light reflex, oral mucosa is moist, no posterior oropharynx erythema or hypertrophy, uvula is mid-line Cardiovascular: Regular Rate and Rhythm Respiratory: Patient is in no distress, no accessory muscle use, lungs are clear to auscultation, no wheezing, rales or rhonchi. Chest Wall: no tenderness Back: Tenderness to the mid thoracic and lumbar spine. mild paravetebral soreness C7 to lumbar.. well healed lumbar surgical scar. . Pain experienced by patient greater than what can be reproduced on palpation. No CVA tenderness Musculoskeletal: normal ROM, no pain with motion of shoulders or hips. No joint warmth or erythema. Patient has pain radiating to the arms and lower back. Notes chronic symptoms in the left leg with foot drop appreciated on the left, right leg is 5/5 ankle and knee. Straight leg raise is negative. GI: Normal bowel sounds, no tenderness to palpation, no masses appreciated. No rebound, guarding, or rigidity noted. Neurological: A&O x4 , drop foot left, reflex 1+ symmetic patella. achilles, neg clonis 1+ symmteric biceps, triceps and brachial radialis. Psychiatric: Cooperative Constitutional Vital Signs, click to edit/add: Last Vital Signs Temp 99.1 F 05/21/24 19:43 Pulse 79 05/21/24 23:22 Resp 16 05/21/24 23:22 BP 137/71 05/21/24 23:22 Pulse Ox 97 05/21/24 23:22 O2 Del Method Room Air 05/21/24 23:22 Course Vital Signs Vital signs: Vital Signs Temperature 99.1 F 05/21/24 19:43 Pulse Rate 85 05/21/24 19:43 Respiratory Rate 18 05/21/24 19:43 Blood Pressure 170/84 H 05/21/24 19:43 Pulse Oximetry 98 05/21/24 19:43 Oxygen Delivery Method Room Air 05/21/24 19:43 Temperature 99.1 F 05/21/24 19:43 Pulse Rate 79 05/21/24 23:22 Respiratory Rate 16 05/21/24 23:22 Blood Pressure 137/71 05/21/24 23:22 Pulse Oximetry 97 05/21/24 23:22 Oxygen Delivery Method Room Air 05/21/24 23:22 Medical Decision Making MDM Narrative Medical decision making narrative: Patient presents with generalized arthralgias with no focal joint pain on exam. History of prior back surgery which is the focus of family at bedside. He is without headache or confusion. No meningeal signs. Pain is severe from his neck into his thoracic spine and lower back constant even present at rest. We discussed his medical history with diabetes, hypertension, severity of symptoms recommend CTA of the chest abdomen and pelvis to rule out dissection. Patient be medicated with fentanyl. Labs pending with possible sepsis workup given generalized symptoms. Has evidence of acute kidney injury, unable to do contrast studies at this time. We did have an accessibility lift technician in the ER assessing another patient and she is able to do aortic abdominal ultrasound study. CT ABD/ PELVIS AND CHEST PENDING Lab Data Labs: Lab Results 05/21/24 05/21/24 05/21/24 Range/Units 19:55 20:22 23:35 WBC 13.8 H (4.0-11.0) 10^3/uL RBC 4.18 L (4.70-6.10) 10^6/uL Hgb 11.8 L (14.0-18.0) g/dL Hct 35.8 L (42.0-54.0) % MCV 85.6 (80.0-94.0) fL MCH 28.2 (25.9-34.0) pg MCHC 33.0 (29.9-35.2) g/dL RDW 12.5 (11.0-15.0) % Plt Count 255 (150-450) 10^3/uL MPV 10.3 (9.5-13.5) fL Neut % (Auto) 78.5 H (43.0-75.0) % Lymph % (Auto) 8.9 L (20.5-60.0) % [place] % (Auto) 10.7 (1.7-12.0) % Eos % (Auto) 0.9 (0.9-7.0) % Baso % (Auto) 0.2 (0.2-2.0) % Neut # (Auto) 10.8 H (1.4-6.5) 10^3/uL Lymph # (Auto) 1.2 (1.2-3.8) 10^3/uL [place] # (Auto) 1.5 H (0.3-0.8) 10^3/uL Eos # (Auto) 0.1 (0.0-0.7) 10^3/uL Baso # (Auto) 0.0 (0.0-0.1) 10^3/uL Abs Immat Gran (auto) 0.11 H (0.00-0.03) 10^3/uL Imm/Tot Granulo (auto) 0.8 H (0.0-0.5) % ESR 124 H (<=20) mm/hr PT 10.9 (9.0-11.6) sec INR 1.03 APTT 34.7 (22.3-36.2) sec Sodium 134 L (136-145) mmol/L Potassium 4.1 (3.5-5.1) mmol/L Chloride 101 (98-107) mmol/L Carbon Dioxide 20.7 L (21.0-32.0) mmol/L Anion Gap 16.4 BUN 48.0 H (7.0-18.0) mg/dL Creatinine 2.50 H (0.70-1.30) mg/dL Est GFR ( Amer) 31 L (>=60) Est GFR (Non-Af Amer) 25 L (>=60) BUN/Creatinine Ratio 19.2 Glucose 170 H (74-106) mg/dL Lactate 0.9 (0.4-2.0) mmol/L Calcium 8.8 (8.5-10.1) mg/dL Total Bilirubin 0.8 (0.2-1.0) mg/dL AST 15 (15-37) U/L ALT 21 (16-63) U/L Alkaline Phosphatase 99 (46-116) U/L Total Creatine Kinase 32 L (39-308) U/L CK-MB (CK-2) 1.48 (<=3.60) ng/mL Myoglobin 101 H (16-96) ng/mL Troponin I High Sens 70.4 (4.0-76.1) pg/mL C-Reactive Protein 7.55 H (<=0.50) mg/dL NT-Pro-B Natriuret Pep 2208.0 H* (<=900.0) pg/mL Total Protein 7.0 (6.4-8.2) g/dL Albumin 3.1 L (3.4-5.0) g/dL Globulin 3.9 g/dL Albumin/Globulin Ratio 0.8 Urine Color Lt. yellow (YELLOW) Urine Clarity Clear (CLEAR) Urine pH 5.5 (5.0-9.0) Ur Specific Daisy 1.025 (1.005-1.025) Urine Protein 100 A (NEG/TRACE) mg/dL Urine Glucose (UA) Negative (NEGATIVE) mg/dL Urine Ketones Negative (NEGATIVE) mg/dL Urine Occult Blood Negative (NEGATIVE) Urine Nitrite Negative (NEGATIVE) Urine Bilirubin Negative (NEGATIVE) Urine Urobilinogen 0.2 (0.2-1.0) EU/dL Ur Leukocyte Esterase Trace A (NEGATIVE) Urine RBC 0-2 (0-2) #/HPF Urine WBC 2-5 A (NONE SEEN) #/HPF Ur Squamous Epith Cells Few A (NONE/RARE) #/LPF Urine Crystals None seen (None Seen) #/HPF Urine Bacteria None seen (NONE SEEN) #/HPF Urine Casts Seen A (NONE SEEN) #/LPF Hyaline Casts Few Fine Granular Casts Few Coarse Granular Casts Few Urine Mucus None seen (NONE SEEN) Ur Culture Indicated? No Acetone, Qual Negative (NEGATIVE) SARS-CoV-2 Ag (CV2AG) Negative (NEGATIVE) Imaging Data Chest x-ray: Radiologist's impression: ITS Impressions Chest X-Ray 05/21/24 19:59 IMPRESSION: Negative chest x-ray, no acute findings Electronically authenticated by: JOCELYN ARZATE Date: 05/21/2024 21:40 Abdomen/Pelvis CT 05/21/24 20:52 IMPRESSION: 1. No acute intrathoracic or abdominal pelvic process is identified. 2. Severe coronary artery calcification. 3. Mild to moderate diverticulosis. 4. Moderate prostatomegaly. 5. Postsurgical changes of L4-L5 posterior fusion with multilevel degenerative changes of the spine. Electronically authenticated by: SIMONE BOYKIN Date: 05/21/2024 23:[address] 05/21/24 20:52 IMPRESSION: 1. No acute intrathoracic or abdominal pelvic process is identified. 2. Severe coronary artery calcification. 3. Mild to moderate diverticulosis. 4. Moderate prostatomegaly. 5. Postsurgical changes of L4-L5 posterior fusion with multilevel degenerative changes of the spine. Electronically authenticated by: SIMONE BOYKIN Date: 05/21/2024 23:08 ECG Data Attestation: I personally reviewed and interpreted this ECG as follows: Interpretation: EKG interpretation: Emergency Department physician interpretation, normal sinus rhythm 84 , no ectopy, no ST segment elevation, normal axis T wave inversion v5- v6 . Discharge Plan Discharge Chief Complaint: Weakness Clinical Impression: Acute kidney injury, Generalized weakness Patient Disposition: Admitted as Observation Time of Disposition Decision: 00:35 Condition: Fair Documented by User: Lino Delong MD 05/22/24 00:37 HPI HPI - General Adult General Chief complaint: Weakness Stated complaint: all over body pain, weakness Time Seen by Provider: 05/21/24 19:38 Related Data Home Medications ?Medication ?Instructions ?Recorded ?Confirmed aspirin 81 mg tablet,delayed 81 mg PO DAILY 05/21/24 05/21/24 release atorvastatin 20 mg tablet 20 mg PO DAILY 05/21/24 05/21/24 carvedilol 25 mg tablet 25 mg PO Q12H 05/21/24 05/21/24 cyclobenzaprine 10 mg tablet 10 mg PO BEDTIME 05/21/24 05/21/24 ferrous sulfate 325 mg (65 mg 325 mg PO DAILY 05/21/24 05/21/24 iron) tablet furosemide 40 mg tablet 40 mg PO DAILY 05/21/24 05/21/24 hydralazine 50 mg tablet 75 mg PO Q12H 05/21/24 05/21/24 insulin glargine 100 unit/mL (3 10 unit subcut DAILY 05/21/24 05/21/24 mL) subcutaneous pen (Lantus Solostar U-100 Insulin) isosorbide mononitrate 30 mg 30 mg PO DAILY 05/21/24 05/21/24 tablet,extended release 24 hr pantoprazole 40 mg tablet,delayed 40 mg PO DAILY 05/21/24 05/21/24 release Allergies Allergy/AdvReac Type Severity Reaction Status Date / Time oxycodone [From Percocet] Allergy Severe facial Verified 11/04/23 11:40 swelling Opioid HPI Opioid Management Most Recent Opioid Data: Last Pain Scale 10 05/21/24 22:34 Last ED Pain Assessment 05/21/24 19:47 PFSH PFSH Social History Smoking status: Current every day smoker Exam Constitutional Vital Signs, click to edit/add: Last Vital Signs Temp 99.1 F 05/21/24 19:43 Pulse 79 05/21/24 23:22 Resp 16 05/21/24 23:22 BP 137/71 05/21/24 23:22 Pulse Ox 97 05/21/24 23:22 O2 Del Method Room Air 05/21/24 23:22 Course Vital Signs Vital signs: Vital Signs Temperature 99.1 F 05/21/24 19:43 Pulse Rate 85 05/21/24 19:43 Respiratory Rate 18 05/21/24 19:43 Blood Pressure 170/84 H 05/21/24 19:43 Pulse Oximetry 98 05/21/24 19:43 Oxygen Delivery Method Room Air 05/21/24 19:43 Temperature 99.1 F 05/21/24 19:43 Pulse Rate 79 05/21/24 23:22 Respiratory Rate 16 05/21/24 23:22 Blood Pressure 137/71 05/21/24 23:22 Pulse Oximetry 97 05/21/24 23:22 Oxygen Delivery Method Room Air 05/21/24 23:22 Medical Decision Making MDM Narrative Medical decision making narrative: 80Patient presents with generalized arthralgias with no focal joint pain on exam. History of prior back surgery which is the focus of family at bedside. He is without headache or confusion. No meningeal signs. Pain is severe from his neck into his thoracic spine and lower back constant even present at rest. We discussed his medical history with diabetes, hypertension, severity of symptoms recommend CTA of the chest abdomen and pelvis to rule out dissection. Patient be medicated with fentanyl. Labs pending with possible sepsis workup given generalized symptoms. Has evidence of acute kidney injury, unable to do contrast studies at this time. We did have an accessibility lift technician in the ER assessing another patient and she is able to do aortic abdominal ultrasound study. CT ABD/ PELVIS AND CHEST PENDING JK 12:30am extensive radiographic tests do not show any acute abnormalities. No evidence of aneurysm or dissection. His BUN and creatinine were 38 and 2.25 on March 22 of this year and today his BUN and creatinine are 48 and 2.5. He is being admitted for observation. Findings are discussed with the patient and his family. Differential Diagnosis Differential Diagnosis: Dehydration, acute kidney injury, aortic aneurysm Medical Records Medical records reviewed: Yes I reviewed the patient's medical records Lab Data Lab results reviewed: Yes I reviewed the patient's lab results Labs: Lab Results 05/21/24 05/21/24 05/21/24 Range/Units 19:55 20:22 23:35 WBC 13.8 H (4.0-11.0) 10^3/uL RBC 4.18 L (4.70-6.10) 10^6/uL Hgb 11.8 L (14.0-18.0) g/dL Hct 35.8 L (42.0-54.0) % MCV 85.6 (80.0-94.0) fL MCH 28.2 (25.9-34.0) pg MCHC 33.0 (29.9-35.2) g/dL RDW 12.5 (11.0-15.0) % Plt Count 255 (150-450) 10^3/uL MPV 10.3 (9.5-13.5) fL Neut % (Auto) 78.5 H (43.0-75.0) % Lymph % (Auto) 8.9 L (20.5-60.0) % [place] % (Auto) 10.7 (1.7-12.0) % Eos % (Auto) 0.9 (0.9-7.0) % Baso % (Auto) 0.2 (0.2-2.0) % Neut # (Auto) 10.8 H (1.4-6.5) 10^3/uL Lymph # (Auto) 1.2 (1.2-3.8) 10^3/uL [place] # (Auto) 1.5 H (0.3-0.8) 10^3/uL Eos # (Auto) 0.1 (0.0-0.7) 10^3/uL Baso # (Auto) 0.0 (0.0-0.1) 10^3/uL Abs Immat Gran (auto) 0.11 H (0.00-0.03) 10^3/uL Imm/Tot Granulo (auto) 0.8 H (0.0-0.5) % ESR 124 H (<=20) mm/hr PT 10.9 (9.0-11.6) sec INR 1.03 APTT 34.7 (22.3-36.2) sec Sodium 134 L (136-145) mmol/L Potassium 4.1 (3.5-5.1) mmol/L Chloride 101 (98-107) mmol/L Carbon Dioxide 20.7 L (21.0-32.0) mmol/L Anion Gap 16.4 BUN 48.0 H (7.0-18.0) mg/dL Creatinine 2.50 H (0.70-1.30) mg/dL Est GFR ( Amer) 31 L (>=60) Est GFR (Non-Af Amer) 25 L (>=60) BUN/Creatinine Ratio 19.2 Glucose 170 H (74-106) mg/dL Lactate 0.9 (0.4-2.0) mmol/L Calcium 8.8 (8.5-10.1) mg/dL Total Bilirubin 0.8 (0.2-1.0) mg/dL AST 15 (15-37) U/L ALT 21 (16-63) U/L Alkaline Phosphatase 99 (46-116) U/L Total Creatine Kinase 32 L (39-308) U/L CK-MB (CK-2) 1.48 (<=3.60) ng/mL Myoglobin 101 H (16-96) ng/mL Troponin I High Sens 70.4 (4.0-76.1) pg/mL C-Reactive Protein 7.55 H (<=0.50) mg/dL NT-Pro-B Natriuret Pep 2208.0 H* (<=900.0) pg/mL Total Protein 7.0 (6.4-8.2) g/dL Albumin 3.1 L (3.4-5.0) g/dL Globulin 3.9 g/dL Albumin/Globulin Ratio 0.8 Urine Color Lt. yellow (YELLOW) Urine Clarity Clear (CLEAR) Urine pH 5.5 (5.0-9.0) Ur Specific Daisy 1.025 (1.005-1.025) Urine Protein 100 A (NEG/TRACE) mg/dL Urine Glucose (UA) Negative (NEGATIVE) mg/dL Urine Ketones Negative (NEGATIVE) mg/dL Urine Occult Blood Negative (NEGATIVE) Urine Nitrite Negative (NEGATIVE) Urine Bilirubin Negative (NEGATIVE) Urine Urobilinogen 0.2 (0.2-1.0) EU/dL Ur Leukocyte Esterase Trace A (NEGATIVE) Urine RBC 0-2 (0-2) #/HPF Urine WBC 2-5 A (NONE SEEN) #/HPF Ur Squamous Epith Cells Few A (NONE/RARE) #/LPF Urine Crystals None seen (None Seen) #/HPF Urine Bacteria None seen (NONE SEEN) #/HPF Urine Casts Seen A (NONE SEEN) #/LPF Hyaline Casts Few Fine Granular Casts Few Coarse Granular Casts Few Urine Mucus None seen (NONE SEEN) Ur Culture Indicated? No Acetone, Qual Negative (NEGATIVE) SARS-CoV-2 Ag (CV2AG) Negative (NEGATIVE) Imaging Data Chest x-ray: Radiologist's impression: ITS Impressions Chest X-Ray 05/21/24 19:59 IMPRESSION: Negative chest x-ray, no acute findings Electronically authenticated by: JOCELYN ARZATE Date: 05/21/2024 21:40 Abdomen/Pelvis CT 05/21/24 20:52 IMPRESSION: 1. No acute intrathoracic or abdominal pelvic process is identified. 2. Severe coronary artery calcification. 3. Mild to moderate diverticulosis. 4. Moderate prostatomegaly. 5. Postsurgical changes of L4-L5 posterior fusion with multilevel degenerative changes of the spine. Electronically authenticated by: SIMONE BOYKIN Date: 05/21/2024 23:[address] 05/21/24 20:52 IMPRESSION: 1. No acute intrathoracic or abdominal pelvic process is identified. 2. Severe coronary artery calcification. 3. Mild to moderate diverticulosis. 4. Moderate prostatomegaly. 5. Postsurgical changes of L4-L5 posterior fusion with multilevel degenerative changes of the spine. Electronically authenticated by: SIMONE BOYKIN Date: 05/21/2024 23:08 Discharge Plan Discharge Chief Complaint: Weakness Clinical Impression: Acute kidney injury, Generalized weakness Patient Disposition: Admitted as Observation Time of Disposition Decision: 00:35 Condition: Fair
[2024-05-21 20:10] LABS: Basophils Percent Auto 0.2 % (0.2-2.0); Eosinophils Absolute Auto 0.1 10^3/uL (0.0-0.7); Eosinophils Percent Auto 0.9 % (0.9-7.0); Hematocrit 35.8 % (42.0-54.0); Hemoglobin 11.8 g/dL (14.0-18.0); Immature Granulocytes Abs Auto 0.11 10^3/uL (0.00-0.03); Immature Granulocytes Pct Auto 0.8 % (0.0-0.5); Lymphocytes Absolute Auto 1.2 10^3/uL (1.2-3.8); Lymphocytes Percent Auto 8.9 % (20.5-60.0); Mean Corpuscular Hemoglobin 28.2 pg (25.9-34.0); Mean Corpuscular Volume 85.6 fL (80.0-94.0); Mean Platelet Volume 10.3 fL (9.5-13.5); Monocytes Absolute Auto 1.5 10^3/uL (0.3-0.8); Monocytes Percent Auto 10.7 % (1.7-12.0); Neutrophils Absolute Auto 10.8 10^3/uL (1.4-6.5); Neutrophils Percent Auto 78.5 % (43.0-75.0); Platelet Count 255 10^3/uL (150-450); Red Blood Count 4.18 10^6/uL (4.70-6.10); Red Cell Distribution Width 12.5 % (11.0-15.0); White Blood Count 13.8 10^3/uL (4.0-11.0)
[2024-05-21] MEDS: ACETAMINOPHEN 500 MG TABLET 1000 MG PO (20:14)
[2024-05-21 20:17] LABS: Erythrocyte Sedimentation Rate 124 mm/hr (<=20)
[2024-05-21 20:22] LABS: C Reactive Protein 7.55 mg/dL (<=0.50)
[2024-05-21 20:25] LABS: Acetone NEGATIVE (NEGATIVE); INR 1.03; Partial Thromboplastin Time 34.7 sec (22.3-36.2); Prothrombin Time 10.9 sec (9.0-11.6)
[2024-05-21 20:29] LABS: Lactate/Lactic Acid 0.9 mmol/L (0.4-2.0)
[2024-05-21 20:35] LABS: Alanine Aminotransferase 21 U/L (16-63); Albumin Globulin Ratio 0.8; Albumin Level 3.1 g/dL (3.4-5.0); Alkaline Phosphatase 99 U/L (46-116); Anion Gap 16.4; Aspartate Amino Transferase 15 U/L (15-37); BUN Creatinine Ratio 19.2; Bilirubin Total 0.8 mg/dL (0.2-1.0); Calcium 8.8 mg/dL (8.5-10.1); Carbon Dioxide 20.7 mmol/L (21.0-32.0); Chloride 101 mmol/L (98-107); Estimated GFR (African America 31 (>=60); Estimated GFR (Non-African Ame 25 (>=60); Globulin 3.9 g/dL; Glucose 170 mg/dL (74-106); Potassium 4.1 mmol/L (3.5-5.1); Sodium 134 mmol/L (136-145); Troponin I High Sensitivity 70.4 pg/mL (4.0-76.1)
[2024-05-21] MEDS: FENTANYL CITRATE/PF 100 MCG/2 ML VIAL 50 MCG IV (20:36)
--- NOTE | 2024-05-21 20:41 | US_ITS ---
The [address] [address] Patient Name: GAGE PALOMINO MRN: [id number] date: 1950 Sex: M Assigned Patient Location: ER Current Patient Location: ER Accession/Order Number: [id number] Exam Date: 05/21/2024 20:55 Report Date: 05/21/2024 23:44 At the request of: MEGAN MARTINEZ Procedure: US aorta US aorta, 05/21/2024 7:55 PM CDT: History: back pain, r/o aneursym/ disection. . Comparison: None. Technique: Transabdominal grayscale, color Doppler, and spectral Doppler imaging of the aorta Findings/Impression: The abdominal aorta is patent and normal in caliber measuring up to 2.4 cm in diameter. There is no abdominal aortic aneurysm. The bilateral iliac arteries are normal in caliber. Electronically authenticated by: AVEL ANTOINE Date: 05/21/2024 23:44
[2024-05-21 20:46] LABS: Internal Control Within Normal Limits; SARS-CoV-2 Ag NEGATIVE (NEGATIVE)
--- NOTE | 2024-05-21 20:52 | CT_ITS ---
[address] [address] Patient Name: GAGE PALOMINO MRN: [id number] date: 1950 Sex: M Assigned Patient Location: ER Current Patient Location: Accession/Order Number: [id number] Exam Date: 05/21/2024 21:48 Report Date: 05/21/2024 23:08 At the request of: MEGAN MARTINEZ Procedure: CT abdomen pelvis wo con EXAMINATION: CT chest wo con, CT abdomen pelvis wo con, 05/21/2024 9:48 PM EDT HISTORY: severe back pain. COMPARISON: None. TECHNIQUE: CT scan of the chest and CT of the abdomen and pelvis was performed without IV contrast. CT dose reduction technique was used, including Automated Exposure Control. FINDINGS: Evaluation of the viscera and vasculature is limited without intravenous contrast. TUBES AND IMPLANTS: L4-L5 posterior rods and pedicle screws with interbody graft. CHEST: CHEST WALL AND LOWER NECK: Unremarkable. MEDIASTINUM AND NHAN: No hematoma. No enlarged lymph nodes by CT size criteria. AORTA: No aneurysm HEART: Mild cardiomegaly PULMONARY ARTERIES: Unremarkable. CORONARY ARTERIES: Severe coronary artery calcifications. LUNG AND AIRWAYS: Unremarkable. PLEURA: Unremarkable. BONES: No suspicious lesions. Multilevel degenerative changes of the spine. ABDOMEN and PELVIS ABDOMINAL WALL AND SOFT TISSUES: Unremarkable. BONES: Post surgical changes of L4-L5 posterior fusion. No suspicious lesions. Multilevel degenerative changes of the spine. No acute fracture or dislocation is identified. ARTERIES: Incompletely evaluated. Moderate aortoiliac calcification without aneurysm VEINS: Incompletely evaluated LYMPH NODES: Unremarkable. PERITONEUM/ RETROPERITONEUM: Unremarkable. BOWEL: No obstruction. Mild to moderate diverticulosis APPENDIX: Unremarkable LIVER: No suspicious lesions GALLBLADDER: Unremarkable. BILE DUCTS: Not dilated SPLEEN: Unremarkable. PANCREAS: Unremarkable. ADRENALS: Unremarkable. KIDNEYS/ URETERS: Nonspecific bilateral perinephric stranding. No stones or hydronephrosis REPRODUCTIVE ORGANS: Moderate prostatomegaly URINARY BLADDER: Unremarkable. CT/CT abdomen pelvis wo con IMPRESSION: 1. No acute intrathoracic or abdominal pelvic process is identified. 2. Severe coronary artery calcification. 3. Mild to moderate diverticulosis. 4. Moderate prostatomegaly. 5. Postsurgical changes of L4-L5 posterior fusion with multilevel degenerative changes of the spine. Electronically authenticated by: SIMONE BOYKIN Date: 05/21/2024 23:08
--- NOTE | 2024-05-21 20:52 | CT_ITS ---
[address] [address] Patient Name: GAGE PALOMINO MRN: [id number] date: 1950 Sex: M Assigned Patient Location: ER Current Patient Location: Accession/Order Number: [id number] Exam Date: 05/21/2024 21:48 Report Date: 05/21/2024 23:08 At the request of: MEGAN MARTINEZ Procedure: CT chest wo con EXAMINATION: CT chest wo con, CT abdomen pelvis wo con, 05/21/2024 9:48 PM EDT HISTORY: severe back pain. COMPARISON: None. TECHNIQUE: CT scan of the chest and CT of the abdomen and pelvis was performed without IV contrast. CT dose reduction technique was used, including Automated Exposure Control. FINDINGS: Evaluation of the viscera and vasculature is limited without intravenous contrast. TUBES AND IMPLANTS: L4-L5 posterior rods and pedicle screws with interbody graft. CHEST: CHEST WALL AND LOWER NECK: Unremarkable. MEDIASTINUM AND NHAN: No hematoma. No enlarged lymph nodes by CT size criteria. AORTA: No aneurysm HEART: Mild cardiomegaly PULMONARY ARTERIES: Unremarkable. CORONARY ARTERIES: Severe coronary artery calcifications. LUNG AND AIRWAYS: Unremarkable. PLEURA: Unremarkable. BONES: No suspicious lesions. Multilevel degenerative changes of the spine. ABDOMEN and PELVIS ABDOMINAL WALL AND SOFT TISSUES: Unremarkable. BONES: Post surgical changes of L4-L5 posterior fusion. No suspicious lesions. Multilevel degenerative changes of the spine. No acute fracture or dislocation is identified. ARTERIES: Incompletely evaluated. Moderate aortoiliac calcification without aneurysm VEINS: Incompletely evaluated LYMPH NODES: Unremarkable. PERITONEUM/ RETROPERITONEUM: Unremarkable. BOWEL: No obstruction. Mild to moderate diverticulosis APPENDIX: Unremarkable LIVER: No suspicious lesions GALLBLADDER: Unremarkable. BILE DUCTS: Not dilated SPLEEN: Unremarkable. PANCREAS: Unremarkable. ADRENALS: Unremarkable. KIDNEYS/ URETERS: Nonspecific bilateral perinephric stranding. No stones or hydronephrosis REPRODUCTIVE ORGANS: Moderate prostatomegaly URINARY BLADDER: Unremarkable. CT/CT chest wo con IMPRESSION: 1. No acute intrathoracic or abdominal pelvic process is identified. 2. Severe coronary artery calcification. 3. Mild to moderate diverticulosis. 4. Moderate prostatomegaly. 5. Postsurgical changes of L4-L5 posterior fusion with multilevel degenerative changes of the spine. Electronically authenticated by: SIMONE BOYKIN Date: 05/21/2024 23:08
[2024-05-21 21:27] LABS: Creatine Kinase 32 U/L (39-308); Creatine Kinase MB 1.48 ng/mL (<=3.60); Myoglobin 101 ng/mL (16-96)
[2024-05-21] MEDS: 0.9 % SODIUM CHLORIDE 1,000 ML 999 ML IV (21:35)
[2024-05-21 21:42] VITALS: BP 146/80; PULSE 84; O2SAT 97
[2024-05-21] MEDS: MORPHINE SULFATE 4 MG/ML VIAL IV (22:34)
[2024-05-21 23:22] VITALS: BP 137/71; PULSE 79; O2SAT 97
[2024-05-21 23:45] LABS: Bilirubin Urine NEGATIVE (NEGATIVE); Blood Urine NEGATIVE (NEGATIVE); Clarity Urine CLEAR (CLEAR); Color Urine LT. YELLOW (YELLOW); Glucose Urine UA NEGATIVE (NEGATIVE); Ketones Urine NEGATIVE (NEGATIVE); Leukocyte Esterase Urine TRACE (NEGATIVE); Nitrite Urine NEGATIVE (NEGATIVE); Protein Urine 100 mg/dL (NEG/TRACE); Specific Gravity Urine 1.025 (1.005-1.025); Urobilinogen Urine 0.2 EU/dL (0.2-1.0); pH Urine 5.5 (5.0-9.0)
[2024-05-21 23:47] LABS: Urine Microscopic Indicated YES
[2024-05-21 23:52] LABS: Bacteria Urine NONE SEEN #/HPF (NONE SEEN); Cast Seen? SEEN #/LPF (NONE SEEN); Coarse Granular Casts Urine FEW; Crystals Seen? None Seen #/HPF (None Seen); Fine Granular Casts Urine FEW; Hyaline Casts Urine FEW; Mucus Urine NONE SEEN (NONE SEEN); RBC Urine 0-2 #/HPF (0-2); Squamous Epithelial Cell Urine FEW #/LPF (NONE/RARE)
[2024-05-21 23:53] LABS: Urine Culture Indicated NO
[2024-05-22] VITALS (9 sets, daily range): BP systolic 137–155; BP diastolic 71–78; PULSE 70–77; TEMP 36.3–36.8; O2SAT 92–96; BMI 27.7
--- OUTSIDE RECORDS SUMMARY | 2024-05-22 01:36 | XMS_ITS | CCD ---
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 Name Role Phone TIMUS BHARATHI Unavailable Unavailable [id number], [id number] Unavailable Unavailable August Dumont Unavailable Unavailable Unavailable Lolita Adorno E Unavailable Schwidar Lolita Unavailable Yohannes Granda Unavailable Schwanmol Lolita Unavailable Clemente Miller Unavailable DO Kyree Lolita E Primary Care Provider DO Kyree Lolita E Attending Provider MD Clemente Miller Attending Provider [phone] Rosaline [facility] Joycelyn E Emergency Provider DO Kyree Lolita E Primary Care Provider MD Clemente Miller Attending Provider Rosaline [facility] Joycelyn E Emergency Provider DO Kyree Lolita E Primary Care Provider MD Clemente Millre Attending Provider [phone] VALENTINA Cervantes Other Provider Unavailable VALENTINA Robledo [...] Provider MD Ronnell Fletcher Other Provider Maliha, HARDWARE ASSEMBLER-C Lea Grullon Other Provider MD Kamron Small [...] Care Provider MD Gabriela Florian Attending Provider [phone] Florian, Dr. Gabriela Murillo Referring Eleni vailable Florian, Dr. Gabriela Murillo Attending Eleni vailable Florian, Dr. Gabriela Murillo Referring Eleni vailable Florian, Dr. Gabriela Murillo Attending Eleni vailable Lowe, HARDWARE ASSEMBLER-C Beht Attending Provider DO Kyree Lolita E Attending Provider DO Kyree Lolita E Primary Care Provider MD Gabriela Florian Attending Provider [phone] Rosaline, [facility] Joycelyn E Emergency Provider [phone] Prieto Santo Unavailable DO Trish Adornoitlin E Primary Care Provider MD Prieto Santo Attending Provider DO Kyree Lolita E Primary Care Provider Rosaline [facility] Joycelyn E Emergency Provider MD Prieto Santo Attending Provider Lyudmila White Unavailable DO Enrique Chaparro Emergency Provider MD Barbie Osborn Admit Provider MD Barbie Osborn Attending Provider MD Joao Coley Other Provider [phone] DO Govind Jim Other Provider MD Yohannes Granda Other Provider MD Darian Peters Other Provider MD Milo Wells Other Provider MD Maxx Gonzalez Other Provider SWEETIE Rodriguez Other Provider MD Kevin Li Other Provider MD Omar [...] Other Provider MD Daly Giraldo Other Provider MD Juan David Bustamante Other Provider MD Clement Campa Other Provider DO Donta Ochoa Other Provider DO Lolita Adorno Attending Provider MD Barbie Osborn Referring Provider Lolita Adorno DObeth Primary Care Prov ider MD Gabriela Florian Attending Provider GABRIELA FLORIAN Attending Unavailable LOLITA ADORNOBETH Primary Care Unav ailable Nette Holden Unavailable DO Lolita Adorno E Primary Care Provider MD Gabriela Florian Attending Provider [phone] DO Felicia Adornolin E Primary Care Provider [...] Drug Allergy 03-22-20 24 swelling of throat [facility] amLODIPine (1 source) amLODIPine Drug Allergy 03-22-20 24 Edema [facility] Aspirin (1 source) Aspirin Drug Allergy 03-22-20 24 Swelling of Lip/Tongue/Thr oat, lips turn blue if takes 2 [facility] Opioid Agonists (1 source) oxyCODONE Drug Allergy 03-22-20 24 Swelling of Lip/Tongue/Thr oat, swelling of throat [facility] (20 sources) Acetaminophen / oxyCODONE; Translations: [Percocet TABS] Drug Allergy 09-24-20 23 Anaphylaxis [facility] Whyd Other (20 sources) amLODIPine; Translations: [amlodipine] Drug Allergy 09-18-20 22 Swelling [facility] (20 sources) Aspirin; Translations: [Aspirin TABS] Drug Allergy 09-24-20 23 Unknown [employer] Other (20 sources) Aspirin; Translations: [ASPIRIN] Drug Allergy 04-25-20 21 Swelling of Lip/Tongue/Thr oat, Swelling of Lip/Tongue/Thr oat, lips turn blue if takes 2 [facility] (20 sources) oxyCODONE; Translations: [oxycodone] Drug Allergy 04-25-20 21 Swelling of Lip/Tongue/Thr oat, Swelling of Lip/Tongue/Thr oat, swelling of throat [facility] (6 sources) Angiotensin Converting Enzyme (Titi) Inhibitors; Translations: [TITI Inhibitors] Allergy to drug (finding) 09-24-20 Other [facility] 3 Repository (1 source) Angiotensin-conve rting enzyme inhibitor agent Propensity to adverse reactions 09-24-20 Other [facility] (1 source) Acetaminophen / oxyCODONE; Translations: [OXYCODONE-ACETAM INOPHEN] Drug Allergy 09-24-20 23 [facility] 3 Repository (5 sources) Acetaminophen; Translations: [acetaminophen] Drug Allergy 12-25-19 24 swelling of throat [facility] (1 source) amLODIPine Drug Allergy 03-22-20 [facility] Repository Medications Current Medications Medication Drug Class(es) [...] (Lipitor) 20 mg tablet Indications: 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of [place] coronary artery of [place] heart without angina pectoris , Atherosclerotic heart disease of [place] coronary artery without angina pectoris Take 1 [...] (Lasix) 40 mg tablet Indications: 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of [place] coronary artery of [place] heart without angina pectoris , Essential hypertension [...] 10:40am Start: 08-19-2022 inject 10 [IU] by morin bcutaneous injection once daily Lantus Solostar U-100 [...] Lantus 100 UNITS CARTRIDGE 3ML 5'S Active Kkmuoxgw-Pjr-Xmbqpfn Glucona te (Centrum) 9 mg iron/ 15 mL (15 mL) Liquid (20 sources) Start: 08-08-2020 Mqkjpbak-Jag-W errous Gluconate (Centrum) 9 mg iron/ 15 mL (15 mL) Liquid Active 15 ML PO Daily August 08, 2020 12:00am Start: 08-08-2020 Czbvxlcp-Dyv-D errous Gluconate (Centrum) 9 mg iron/ 15 [...] November 23, 2021 September 18, 2022 12:11pm [id number] 200 actuat albuterol 0.09 mg/actuat metered dose [...] 2020 10:11am take 2 tablets by mo [facility] once daily Lisinopril 20 MG Oral Tablet TAKE 2 TABLETS DAILY. Quantity: 180 Refills: 3 Ordered: 19-Sep-2021 Gabriela Florian MD Active metFORMIN hydrochloride 500 mg oral tablet (20 sources) Biguanide Start: 08-08-2020 End: 12-25-2023 take 500 mg by mouth twice daily Metformin Discontinued 500 MG PO Twice daily August 08, 2020 1:00am December 25, 2023 10:39am take 1 tablet [facility] twelve hours at mealtime metFORMIN HCl [...] sources) Coronary atherosclerosis; Translations: [Coronary atherosclerosis of [place] coronary artery] Onset: 2 Resolved: 2 Chronic [...] sources) Long-term current use of insulin; Translations: [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] Episodic Other aftercare (3 sources) 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; 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 ([facility])] Onset: 3 Episodic Other aftercare (1 source) [...] 03-22-2024 ALT [Catalytic activity/Vol] 19 U/L 7-52 [facility] Comment on above: Order Comment: HALIMA MUJICA Performed By: #### G LULS #### Point of Care testing , Albumin [Mass/volume] in Ser um or Plasma by Bromocresol green (BCG) dye binding methoOrdered By: Lolita Adorno on 03-22-2024 Albumin BCG dye [Mass/Vol] 4.3 g/dL 3.5-5.7 [facility] Alkaline phosphatase [Enzyma tic activity/volume] in Serum or PlasmaOrdered By: Lolita Adorno on 03-22-2024 ALP [Catalytic activity/Vol] 102 U/L 34-104 [facility] Comment on above: Order Comment: HALIMA MUJICA Performed By: #### G LULS #### Point of Care testing , Aspartate aminotransferase [ Enzymatic activity/volume] in Serum or PlasmaOrdered By: Lolita Adorno on 03-22-2024 AST [Catalytic activity/Vol] 19 U/L 13-39 [facility] Comment on above: Order Comment: HALIMA FERRARAW Performed By: #### G LULS #### Point of Care testing , Automated basophil %Ordered By: Lolita Adorno on 03-22-2024 Basophils/100 WBC (Bld) 0.5 % . [facility] Comment on above: Performed By: #### G LULS #### Point of Care testing , Automated basophil countOrde red By: Lolita Adorno on 03-22-2024 Basophils (Bld) [#/Vol] 0.0 10*3/uL 0.0-0.2 [facility] Comment on above: Result Comment: PERF ORMED BY: [facility] [address] [address] PATHOLOGIST FITNESS CONSULTANT LAZARUS MILLER M.D. Performed By: #### G LULS #### Point of Care testing , Automated blood monocyte cou ntOrdered By: Lolita Adorno on 03-22-2024 Monocytes (Bld) [#/Vol] 0.8 10*3/uL 0.0-0.8 [facility] Comment on above: Performed By: #### G LULS #### Point of Care testing , Automated eosinophil %Ordere d By: Lolita Adorno on 03-22-2024 Eosinophils/100 WBC (Bld) 4.4 % . [facility] Comment on above: Performed By: #### G LULS #### Point of Care testing , Automated eosinophil countOr dered By: Lolita Adorno on 03-22-2024 Eosinophils (Bld) [#/Vol] 0.3 10*3/uL 0.0-0.45 [facility] Comment on above: Performed By: #### G LULS #### Point of Care testing , Automated monocyte %Ordered By: Lolita Adorno on 03-22-2024 Monocytes/100 WBC (Bld) 10.6 % . [facility] Comment on above: Performed By: #### G LULS #### Point of Care testing , Automated neutrophil %Ordere d By: Lolita Aragonr on 03-22-2024 Neutrophils/100 WBC (Bld) 56.4 % . [facility] Comment on above: Performed By: #### G LULS #### Point of Care testing , Bilirubin.total [Mass/volume ] in Serum or PlasmaOrdered By: Lolita Adorno on 03-22-2024 Bilirubin [Mass/Vol] 0.6 mg/dL 0.3-1.0 [facility] Comment on above: Order Comment: HALIMA BAILEY JKW Performed By: #### G LULS #### Point of Care testing , Calcium [Mass/volume] in Ser um or PlasmaOrdered By: Lolita Adorno on 03-22-2024 Calcium [Mass/Vol] 9.2 mg/dL 8.6-10.3 [facility] Comment on above: Order Comment: HALIMA BAILEY JKW Performed By: #### G LULS #### Point of Care testing , Carbon dioxide, total [Moles /volume] in Serum or PlasmaOrdered By: Lolita Adorno on 03-22-2024 CO2 [Moles/Vol] 25.9 mmol/L 21.0-31.0 [facility] Comment on above: Order Comment: HALIMA BAILEY JKW Performed By: #### G LULS #### Point of Care testing , Chloride [Moles/volume] in S antolin or PlasmaOrdered By: Lolita Adorno on 03-22-2024 Chloride [Moles/Vol] 109 mmol/L High 98-107 [facility] Comment on above: Order Comment: HALIMA RODRIGUEZ. JKW Performed By: #### G LULS #### Point of Care testing , Cholesterol [Mass/volume] in Serum or PlasmaOrdered By: Lolita Adorno on 03-22-2024 Cholesterol [Mass/Vol] 132 mg/dL Low 140-200 [facility] Comment on above: Chol less than 200 [...] Cholesterol in LDL [Mass/Vol] 52 mg/dL 0-100 [facility] Comment on above: LDL ATP III CLASSIFI CATIONLDL less than 100 mg/dL OptimalLDL 100-129 mg/dL Near or above optimalLDL 130-159 mg/dL Borderline highLDL 160-189 mg/dL HighLDL greater than 189 mg/dL Very high Cholesterol in VLDL Calc [Ma ss/Vol]Ordered By: Lolita Adorno on 03-22-2024 Cholesterol in VLDL [Mass/Vol] 47 mg/dL [facility] Complete Blood Count Auto Di ffon 03-22-2024 Mean Corpuscular HGB Conc 33.1 g/dL Normal 32.5-35.6 [facility] Comment on above: Performed By: #### G LULS #### Point of Care testing , NRBC% 0.2 /100{WBC} Normal 0-0.5 [facility] Comment on above: Performed By: #### G LULS #### Point of Care testing , Comprehensive Metabolic Pane javier 03-22-2024 Albumin [Mass/Vol] 4.3 g/dL Normal 3.5-5.7 [facility] Comment on above: Order Comment: FASTI NG. JKW Performed By: #### G LULS #### Point of Care testing , GFR/1.73 sq M.predicted MDRD (S/P/Bld) [Vol rate/Area] 30.032 mL/min/{1.73_m2} Normal [facility] Comment on above: Order Comment: FASTI NG. JKW Performed By: #### G LULS #### Point of Care testing , Creatinine [Mass/volume] in Serum or PlasmaOrdered By: Lolita Adorno on 03-22-2024 Creatinine [Mass/Vol] 2.25 mg/dL High 0.70-1.30 [facility] Comment on above: Order Comment: FASTI NG. JKW Performed By: #### G LULS #### Point of Care testing , Erythrocyte distribution wid th [Ratio] by Automated countOrdered By: Lolita Adorno on 03-22-2024 Erythrocyte distribution width (RBC) [Ratio] 13.9 % 12.0-14.8 [facility] Comment on above: Performed By: #### G LAURALS #### Point of Care testing , Erythrocytes [#/volume] in B lood by Automated countOrdered By: Lolita Adorno on 03-22-2024 RBC (Bld) [#/Vol] 4.67 10*6/uL 3.90-5.60 [facility] Comment on above: Performed By: #### G LAURALS #### Point of Care testing , Glucose [Mass/volume] in Ser um or PlasmaOrdered By: Lolita Adorno on 03-22-2024 Glucose [Mass/Vol] 145 mg/dL High 70-100 [facility] Comment on above: ADA recommended refe rence rangeRandom Glucose Reference Range is dependent on time and content of last meal. Glucose of more than 200 mg/dL in a nonstressed, ambulatory subject supports the diagnosis of Diabetes Mellitus. Order Comment: HALIMA RODRIGUEZ. JOSIASW Result Comment: [place] om Glucose Reference Range is dependent on time and content of last meal. Glucose of more than 200 mg/dL in a nonstressed, ambulatory subject supports the diagnosis of Diabetes Mellitus. ADA recommended reference range Performed By: #### G GIRMA #### Point of Care testing , HbA1c HPLC (Bld) [Mass fract ion]on 03-22-2024 HbA1c (Bld) [Mass fraction] 7.9 % [facility] Hematocrit [Volume Fraction] of Blood by Automated countOrdered By: Lolita Adorno on 03-22-2024 Hematocrit (Bld) [Volume fraction] 39.7 % 38.8-50.0 [facility] Comment on above: Performed By: #### G LAURALS #### Point of Care testing , Hemoglobin [Mass/volume] in BloodOrdered By: Lolita Adorno on 03-22-2024 Hemoglobin (Bld) [Mass/Vol] 13.1 g/dL 13.0-17.0 [facility] Comment on above: Performed By: #### G LULS #### Point of Care testing , Leukocytes [#/volume] correc ruben for nucleated erythrocytes in Blood by Automated counOrdered By: Lolita Adorno on 03-22-2024 WBC corrected for nucl RBC Auto (Bld) [#/Vol] 7.6 10*3/uL 4.1-10.5 [facility] Leukocytes [#/volume] in Blo od by Automated countOrdered By: Lolita Adorno on 03-22-2024 WBC (Bld) [#/Vol] 7.6 10*3/uL 4.1-10.5 [facility] Comment on above: Performed By: #### G LULS #### Point of Care testing , Lipid Panelon 03-22-2024 LDL Cholesterol,Calculated 52 mg/dL Normal 0-100 [facility] Comment on above: Order Comment: HALIMA MUJICA Result Comment: LDL ATP III CLASSIFICATION LDL less than 100 mg/dL Optimal LDL 100-129 mg/dL Near or above optimal LDL 130-159 mg/dL Borderline high LDL 160-189 mg/dL High LDL greater than 189 mg/dL Very high Performed By: #### G LULS #### Point of Care testing , Triglyceride w/Reflex 238 mg/dL High 0-149 [facility] Comment on above: Order Comment: [...] , VLDL CHOLESTEROL 47 mg/dL Normal [facility] Comment on above: Order Comment: HALIMA MUJICA Performed By: #### G LULS #### Point of Care testing , Lymphocytes [#/volume] in Bl ood by Automated countOrdered By: Lolita Adorno on 03-22-2024 Lymphocytes (Bld) [#/Vol] 2.1 10*3/uL 1.00-4.8 [facility] Comment on above: Performed By: #### G LULS #### Point of Care testing , Lymphocytes/100 leukocytes i n Blood by Automated countOrdered By: Lolita Adorno on 03-22-2024 Lymphocytes/100 WBC (Bld) 28.1 % . [facility] Comment on above: Performed By: #### G LULS #### Point of Care testing , MCH [Entitic mass] by Automa ruben countOrdered By: Lolita Adorno on 03-22-2024 MCH (RBC) [Entitic mass] 28.1 pg 27.5-35.2 [facility] Comment on above: Performed By: #### G LULS #### Point of Care testing , MCHC Auto (RBC) [Mass/Vol]Or dered By: Lolita Adorno on 03-22-2024 MCHC (RBC) [Mass/Vol] 33.1 g/dL 32.5-35.6 [facility] MCV [Entitic volume] by Auto mated countOrdered By: Lolita Adorno on 03-22-2024 MCV (RBC) [Entitic vol] 85.0 fL 83.5-101 [facility] Comment on above: Performed By: #### G LULS #### Point of Care testing , Neutrophils [#/volume] in Bl ood by Automated countOrdered By: Lolita Adorno on 03-22-2024 Neutrophils (Bld) [#/Vol] 4.3 10*3/uL 1.8-7.7 [facility] Comment on above: Performed By: #### G LULS #### Point of Care testing , No Panel InformationOrdered By: Lolita Adorno on 03-22-2024 Estimated GFR (CKD-EPI) 30.032 mL/Min [facility] Creatinine Clearance (Chem N/A [facility] Nucleated erythrocytes [Pres ence] in Blood by Automated countOrdered By: Lolita Adorno on 03-22-2024 Nucleated RBC Auto Ql (Bld) 0.2 /100{WBC} 0-0.5 [facility] Platelet mean volume [Entiti c volume] in Blood by Automated countOrdered By: Lolita Adorno on 03-22-2024 Platelet mean volume (Bld) [Entitic vol] 9.0 fL 6.6-10.1 [facility] Comment on above: Performed By: #### G LULS #### Point of Care testing , Platelets [#/volume] in Bloo d by Automated countOrdered By: Lolita Adorno on 03-22-2024 Platelets (Bld) [#/Vol] 182 10*3/uL 150-450 [facility] Comment on above: Performed By: #### G LULS #### Point of Care testing , Potassium [Moles/volume] in Serum or PlasmaOrdered By: Lolita Adorno on 03-22-2024 Potassium [Moles/Vol] 4.8 mmol/L 3.5-5.1 [facility] Comment on above: Order Comment: FASTI NG. JKW Performed By: #### G LULS #### Point of Care testing , Protein [Mass/volume] in Ser um or PlasmaOrdered By: Lolita Adorno on 03-22-2024 Protein [Mass/Vol] 6.7 g/dL 6.4-8.9 [facility] Comment on above: Order Comment: FASTI NG. JKW Performed By: #### G LULS #### Point of Care testing , Serum globulin measurement b y calculation (mass/volume)Ordered By: Lolita Adorno on 03-22-2024 Globulin (S) [Mass/Vol] 2.4 g/dL [facility] Comment on above: Order Comment: FASTI NG. JKW Performed By: #### G LULS #### Point of Care testing , Serum or plasma albumin/glob ulin mass ratioOrdered By: Lolita Adorno on 03-22-2024 Albumin/Globulin [Mass ratio] 1.8 {ratio} [facility] Comment on above: Order Comment: FASTI NG. JKW Performed By: #### G LULS #### Point of Care testing , Serum or plasma anion gap de terminationOrdered By: Lolita Adorno on 03-22-2024 Anion gap [Moles/Vol] 10.9 mmol/L 6.0-15.0 [facility] Comment on above: Order Comment: HALIMA MUJICA Performed By: #### G LUWALE #### Point of Care testing , Serum or plasma high density lipoprotein (HDL) cholesterol measurementOrdered By: Lolita Adorno on 03-22-2024 Cholesterol in HDL [Mass/Vol] 32 mg/dL 23-92 [facility] Comment on above: HDL CHOL ATP-III CLA [...] in HDL [Mass ratio] 4.1 {ratio} <5.0 [facility] Comment on above: Order Comment: HALIMA MUJICA Result Comment: PERF ORMED BY: [facility] [address] [place] [address] PATHOLOGIST FITNESS CONSULTANT LAZARUS MILLER M.D. Performed By: #### G LULS #### Point of Care testing , Sodium [Moles/volume] in Ser um or PlasmaOrdered By: Lolita Adorno on 03-22-2024 Sodium [Moles/Vol] 141 mmol/L 136-145 [facility] Comment on above: Order Comment: HALIMA MUJICA Performed By: #### G LULS #### Point of Care testing , Triglyceride [Mass/volume] i n Serum or PlasmaOrdered By: Lolita Adorno on 03-22-2024 Triglyceride [Mass/Vol] 238 mg/dL High 0-149 [facility] Comment on above: TRIG ATP III CLASSIF ICATIONTRIG less than 150 mg/dL NormalTRIG 150-199 mg/dL Borderline highTRIG 200-500 mg/dL High TRIG greater than 500 mg/dL Very highStandard traceable to the Center for Disease Conrtrol and Prevention (CDC) test method. Urea nitrogen [Mass/volume] in Serum or PlasmaOrdered By: Lolita Adorno on 03-22-2024 Urea nitrogen [Mass/Vol] 38 mg/dL High 7-25 [facility] Comment on above: Order Comment: HALIMA MUJICA Performed By: #### G LUWALE #### Point of Care testing , HbA1c HPLC (Bld) [Mass fract ion]on 12-25-2023 HbA1c (Bld) [Mass fraction] 10.4 % [facility] Alanine aminotransferase [En zymatic activity/volume] in Serum or PlasmaOrdered By: Gabriela Florian on 10-17-2023 ALT [Catalytic activity/Vol] 14 U/L Normal 7-52 [facility] Comment on above: Performed By: #### A LT, LIPID, AST #### [facility] [address] [id number] [place] Aspartate aminotransferase [ Enzymatic activity/volume] in Serum or PlasmaOrdered By: Gabriela Florian on 10-17-2023 AST [Catalytic activity/Vol] 15 U/L Normal 13-39 [facility] Comment on above: Performed By: #### A LT, LIPID, AST #### [facility] [address] [place] [address] [place] Cholesterol [Mass/volume] in Serum or PlasmaOrdered By: Gabriela Florian on 10-17-2023 Cholesterol [Mass/Vol] 119 mg/dL Low 140-200 [facility] Comment on above: Chol less than 200 m g/dl low riskChol 201-239 mg/dl borderline riskChol 240 mg/dl and greater high risk Result Comment: Chol less than 200 mg/dl low risk Chol 201-239 mg/dl borderline risk Chol 240 mg/dl and greater high risk Performed By: #### A LT, LIPID, AST #### [facility] [address] [id number] [place] Cholesterol in LDL Calc [Mas s/Vol]Ordered By: Gabriela Florian on 10-17-2023 Cholesterol in LDL [Mass/Vol] 16 mg/dL 0-100 [facility] Comment on above: LDL ATP III CLASSIFI CATIONLDL less than 100 mg/dL OptimalLDL 100-129 mg/dL Near or above optimalLDL 130-159 mg/dL Borderline highLDL 160-189 mg/dL HighLDL greater than 189 mg/dL Very high Cholesterol in VLDL Calc [Ma ss/Vol]Ordered By: Gabriela Florian on 10-17-2023 Cholesterol in VLDL [Mass/Vol] 76 mg/dL [facility] Lipid Panelon 10-17-2023 LDL Cholesterol,Calculated 16 mg/dL Normal 0-100 [facility] Comment on above: Result Comment: LDL ATP III CLASSIFICATION LDL less than 100 mg/dL Optimal LDL 100-129 mg/dL Near or above optimal LDL 130-159 mg/dL Borderline high LDL 160-189 mg/dL High LDL greater than 189 mg/dL Very high Performed By: #### A LT, LIPID, AST #### [facility] [address] Triglyceride w/Reflex 382 mg/dL High 0-149 [facility] Comment on above: Result Comment: TRIG ATP III CLASSIFICATION TRIG less than 150 mg/dL Normal TRIG 150-199 mg/dL Borderline high TRIG 200-500 mg/dL High TRIG greater than 500 mg/dL Very high Standard traceable to the Center for Disease Conrtrol and Prevention (CDC) test method. Performed By: #### A LT, LIPID, AST #### [facility] [address] [id number] [facility] VLDL CHOLESTEROL 76 mg/dL Normal [facility] Comment on above: Performed By: #### A LT, LIPID, AST #### [facility] [address] [id number] [facility] Serum or plasma high density lipoprotein (HDL) cholesterol measurementOrdered By: Gabriela Florian on 10-17-2023 Cholesterol in HDL [Mass/Vol] 27 mg/dL Normal 23-92 [facility] Comment on above: HDL CHOL ATP-III CLA SSIFICATION Cardiovascular RiskHDL > or equal to 60 mg/dL LOWHDL < 40 mg/dL HIGH Result Comment: HDL CHOL ATP-III CLASSIFICATION Cardiovascular Risk HDL > or equal to 60 mg/dL LOW HDL < 40 mg/dL HIGH Performed By: #### A LT, LIPID, AST #### [facility] [address] Serum or plasma total choles terol/high density lipoprotein (HDL) cholesterol mass ratOrdered By: Gabriela Florian on 10-17-2023 Cholesterol.total/Flavia sterol in HDL [Mass ratio] 4.4 {ratio} Normal <5.0 [facility] [facility] Comment on above: Result Comment: PERF ORMED BY: [place] [address] PATHOLOGIST FITNESS CONSULTANT LAZARUS MILLER M.D. Performed By: #### A LT, LIPID, AST #### [address] Triglyceride [Mass/volume] i n Serum or PlasmaOrdered By: Gabriela Florian on 10-17-2023 Triglyceride [Mass/Vol] 382 mg/dL 0-149 [facility] Comment on above: TRIG ATP III CLASSIF ICATIONTRIG less than 150 mg/dL NormalTRIG 150-199 mg/dL Borderline highTRIG 200-500 mg/dL High TRIG greater than 500 mg/dL Very highStandard traceable to the Center for Disease Conrtrol and Prevention (CDC) test method. A1C HEMOGLOBINon 09-23-2023 HbA1c (Bld) [Mass fraction] 7.5 % [employer] Other Alanine aminotransferase [En zymatic activity/volume] in Serum or PlasmaOrdered By: Lolita Adorno on 09-23-2023 ALT [Catalytic activity/Vol] 20 U/L Normal 7-52 [facility] Comment on above: Order Comment: Reaso n for Exam Type 2 diabetes mellitus with diabetic chronic kidney diseas Performed By: #### A LT, LIPID, AST #### [facility] [address] Albumin [Mass/volume] in Ser um or Plasma by Bromocresol green (BCG) dye binding methoOrdered By: Lolita Adorno on 09-23-2023 Albumin BCG dye [Mass/Vol] 3.9 g/dL 3.5-5.7 [facility] Alkaline phosphatase [Enzyma tic activity/volume] in Serum or PlasmaOrdered By: Lolita Adorno on 09-23-2023 ALP [Catalytic activity/Vol] 117 U/L High 34-104 [facility] Comment on above: Order Comment: Reaso n for Exam Type 2 diabetes mellitus with diabetic chronic kidney diseas Result Comment: PERF ORMED BY: [place] [address] PATHOLOGIST FITNESS CONSULTANT LAZARUS MILLER M.D. Performed By: #### A LT, LIPID, AST #### [facility] [address] [place] [address] Aspartate aminotransferase [ Enzymatic activity/volume] in Serum or PlasmaOrdered By: Lolita Adorno on 09-23-2023 AST [Catalytic activity/Vol] 15 U/L Normal 13-39 [facility] Comment on above: Order Comment: Reaso n for Exam Type 2 diabetes mellitus with diabetic chronic kidney diseas Performed By: #### A LT, LIPID, AST #### [facility] [address] [place] [address] Automated basophil %Ordered By: Lolita Adorno on 09-23-2023 Basophils/100 WBC (Bld) 0.8 % Normal . [facility] Comment on above: Order Comment: Reaso n for Exam Type 2 diabetes mellitus with diabetic chronic kidney diseas Performed By: #### A LT, LIPID, AST #### [facility] [address] [place] [address] Automated basophil countOrde red By: Lolita Adorno on 09-23-2023 Basophils (Bld) [#/Vol] 0.1 10*3/uL Normal 0.0-0.2 [facility] Comment on above: Order Comment: Reaso n for Exam Type 2 diabetes mellitus with diabetic chronic kidney diseas Result Comment: PERF ORMED BY: [place] [address] PATHOLOGIST FITNESS CONSULTANT LAZARUS MILLER M.D. Performed By: #### A LT, LIPID, AST #### [facility] [address] Automated blood monocyte cou ntOrdered By: Lolita Schwerer on 09-23-2023 Monocytes (Bld) [#/Vol] 0.8 10*3/uL Normal 0.0-0.8 [facility] Comment on above: Order Comment: Reaso n for Exam Type 2 diabetes mellitus with diabetic chronic kidney diseas Performed By: #### A LT, LIPID, AST #### [address] Automated eosinophil %Ordere d By: Lolita Schwerer on 09-23-2023 Eosinophils/100 WBC (Bld) 3.7 % Normal . [facility] Comment on above: Order Comment: Reaso n for Exam Type 2 diabetes mellitus with diabetic chronic kidney diseas Performed By: #### A LT, LIPID, AST #### [facility] [address] [place] [address] Automated eosinophil countOr dered By: Lolita Schwerer on 09-23-2023 Eosinophils (Bld) [#/Vol] 0.3 10*3/uL Normal 0.0-0.45 [facility] Comment on above: Order Comment: Reaso n for Exam Type 2 diabetes mellitus with diabetic chronic kidney diseas Performed By: #### A LT, LIPID, AST #### [facility] [address] [place] [address] Automated monocyte %Ordered By: Lolita Mendeserer on 09-23-2023 Monocytes/100 WBC (Bld) 9.5 % Normal . [facility] Comment on above: Order Comment: Reaso n for Exam Type 2 diabetes mellitus with diabetic chronic kidney diseas Performed By: #### A LT, LIPID, AST #### [facility] [address] [place] [address] Automated neutrophil %Ordere d By: Lolita Schwerer on 09-23-2023 Neutrophils/100 WBC (Bld) 66.7 % Normal . [facility] Comment on above: Order Comment: Reaso n for Exam Type 2 diabetes mellitus with diabetic chronic kidney diseas Performed By: #### A LT, LIPID, AST #### [facility] [address] Bilirubin.total [Mass/volume ] in Serum or PlasmaOrdered By: Lolita Adorno on 09-23-2023 Bilirubin [Mass/Vol] 0.5 mg/dL Normal 0.3-1.0 [facility] Comment on above: Order Comment: Reaso n for Exam Type 2 diabetes mellitus with diabetic chronic kidney diseas Performed By: #### A LT, LIPID, AST #### [facility] [address] [place] [address] Calcium [Mass/volume] in Ser um or PlasmaOrdered By: Lolita Adorno on 09-23-2023 Calcium [Mass/Vol] 8.9 mg/dL Normal 8.6-10.3 [facility] Comment on above: Order Comment: Reaso n for Exam Type 2 diabetes mellitus with diabetic chronic kidney diseas Performed By: #### A LT, LIPID, AST #### [facility] [address] [place] [address] Carbon dioxide, total [Moles /volume] in Serum or PlasmaOrdered By: Lolita Adorno on 09-23-2023 CO2 [Moles/Vol] 28.9 mmol/L Normal 21.0-31.0 [facility] Comment on above: Order Comment: Reaso n for Exam Type 2 diabetes mellitus with diabetic chronic kidney diseas Performed By: #### A LT, LIPID, AST #### [facility] [address] [place] [address] [place] Chloride [Moles/volume] in S antolin or PlasmaOrdered By: Lolita Adorno on 09-23-2023 Chloride [Moles/Vol] 107 mmol/L Normal 98-107 [facility] Comment on above: Order Comment: Reaso n for Exam Type 2 diabetes mellitus with diabetic chronic kidney diseas Performed By: #### A LT, LIPID, AST #### [facility] [address] [place] [address] Complete Blood Count Auto Di ffon 09-23-2023 Basophils (Bld) [#/Vol] 0.964173679 10*3/uL Normal 0.0-0.2 10*3/uL [employer] Other Basophils/100 WBC (Bld) 0.800 % . % [facility] Other Eosinophils (Bld) [#/Vol] 0.815619401 10*3/uL Normal 0.0-0.45 10*3/uL [employer] Other Eosinophils/100 WBC (Bld) 3.700 % . % [employer] Other Erythrocyte distribution width (RBC) [Ratio] 13.400 % Normal 12.0-14.8 % [employer] Other Hematocrit (Bld) [Volume fraction] 36.300 % Low 38.8-50.0 % [employer] Other Hemoglobin (Bld) [Mass/Vol] 12.872249 g/dL Low 13.0-17.0 g/dL [employer] Other Lymphocytes (Bld) [#/Vol] 1.918586306 10*3/uL Normal 1.00-4.8 10*3/uL [employer] Other Lymphocytes/100 WBC (Bld) 19.300 % . % [employer] Other MCH (RBC) [Entitic mass] 28.1000 pg Normal 27.5-35.2 pg [employer] Other MCV (RBC) [Entitic vol] 84.8000 fL Normal 83.5 -101 fL [employer] Other Monocytes (Bld) [#/Vol] 0.413648068 10*3/uL Normal 0.0-0.8 10*3/uL [employer] Other Monocytes/100 WBC (Bld) 9.500 % . % [facility] Other Neutrophils (Bld) [#/Vol] 5.963611524 10*3/uL Normal 1.8-7.7 10*3/uL [employer] Other Neutrophils/100 WBC (Bld) 66.700 % . % [employer] Other Platelet mean volume (Bld) [Entitic vol] 8.8000 fL Normal 6.6-10.1 fL [employer] Other WBC (Bld) [#/Vol] 8.895058343 10*3/uL Normal 4.1 -10.5 10*3/uL [employer] Other Complete Blood Count Auto Diff 8.2 10*3/uL Normal 4.1-10.5 10*3/uL [employer] Other Complete Blood Count Auto Diff 33.2 g/dL Normal 32.5-35.6 g/dL [employer] Other Complete Blood Count Auto Diff 0.1 /100{WBC} Normal 0-0.5 /100{WBC} [employer] Other Mean Corpuscular HGB Conc 33.2 g/dL Normal 32.5-35.6 [facility] Comment on above: Order Comment: Reaso n for Exam Type 2 diabetes mellitus with diabetic chronic kidney diseas Performed By: #### A LT, LIPID, AST #### [facility] [address] NRBC% 0.1 /100{WBC} Normal 0-0.5 [facility] Comment on above: Order Comment: Reaso n for Exam Type 2 diabetes mellitus with diabetic chronic kidney diseas Performed By: #### A LT, LIPID, AST #### [facility] [address] [place] [id number] [facility] Comprehensive Metabolic Pane javier 09-23-2023 Albumin [Mass/Vol] 3.9 g/dL Normal 3.5-5.7 [facility] Comment on above: Order Comment: Reaso n for Exam Type 2 diabetes mellitus with diabetic chronic kidney diseas Performed By: #### A LT, LIPID, AST #### [facility] [address] GFR/1.73 sq M.predicted MDRD (S/P/Bld) [Vol rate/Area] 41.746 mL/min/{1.73_m2} Normal [facility] Comment on above: Order Comment: Reaso n for Exam Type 2 diabetes mellitus with diabetic chronic kidney diseas Performed By: #### A LT, LIPID, AST #### [facility] [address] Creatinine [Mass/volume] in Serum or PlasmaOrdered By: Lolita Margor on 09-23-2023 Creatinine [Mass/Vol] 1.71 mg/dL High 0.70-1.30 [facility] Comment on above: Order Comment: Reaso n for Exam Type 2 diabetes mellitus with diabetic chronic kidney diseas Performed By: #### A LT, LIPID, AST #### [facility] [address] [place] [address] Erythrocyte distribution wid th [Ratio] by Automated countOrdered By: Lolita Adorno on 09-23-2023 Erythrocyte distribution width (RBC) [Ratio] 13.4 % Normal 12.0-14.8 [facility] Comment on above: Order Comment: Reaso n for Exam Type 2 diabetes mellitus with diabetic chronic kidney diseas Performed By: #### A LT, LIPID, AST #### [facility] [address] [place] [address] [place] Erythrocytes [#/volume] in B lood by Automated countOrdered By: Lolita Vaughnerer on 09-23-2023 RBC (Bld) [#/Vol] 4.28 10*6/uL Normal 3.90-5.60 [facility] Comment on above: Order Comment: Reaso n for Exam Type 2 diabetes mellitus with diabetic chronic kidney diseas Performed By: #### A LT, LIPID, AST #### [facility] [address] [place] [address] [place] Glucose [Mass/volume] in Ser um or PlasmaOrdered By: Lolita Schwerer on 09-23-2023 Glucose [Mass/Vol] 212 mg/dL High 70-100 [facility] Comment on above: ADA recommended refe rence rangeRandom Glucose Reference Range is dependent on time and content of last meal. Glucose of more than 200 mg/dL in a nonstressed, ambulatory subject supports the diagnosis of Diabetes Mellitus. Order Comment: Reaso n for Exam Type 2 diabetes mellitus with diabetic chronic kidney diseas Result Comment: [place] om Glucose Reference Range is dependent on time and content of last meal. Glucose of more than 200 mg/dL in a nonstressed, ambulatory subject supports the diagnosis of Diabetes Mellitus. ADA recommended reference range Performed By: #### A LT, LIPID, AST #### [facility] [address] [place] [id number] [facility] HbA1c (Bld) [Mass fraction]o n 09-23-2023 A1C HEMOGLOBIN [employer] Other Hematocrit [Volume Fraction] of Blood by Automated countOrdered By: Lolita Adorno on 09-23-2023 Hematocrit (Bld) [Volume fraction] 36.3 % Low 38.8-50.0 [facility] Comment on above: Order Comment: Reaso n for Exam Type 2 diabetes mellitus with diabetic chronic kidney diseas Performed By: #### A LT, LIPID, AST #### [facility] [address] [place] [id number] [place] Hemoglobin [Mass/volume] in BloodOrdered By: Lolita Adorno on 09-23-2023 Hemoglobin (Bld) [Mass/Vol] 12.0 g/dL Low 13.0-17.0 [facility] Comment on above: Order Comment: Reaso n for Exam Type 2 diabetes mellitus with diabetic chronic kidney diseas Performed By: #### A LT, LIPID, AST #### [facility] [address] [place] [id number] [place] Leukocytes [#/volume] correc ruben for nucleated erythrocytes in Blood by Automated counOrdered By: Lolita Adorno on 09-23-2023 WBC corrected for nucl RBC Auto (Bld) [#/Vol] 8.2 10*3/uL 4.1-10.5 [facility] Leukocytes [#/volume] in Blo od by Automated countOrdered By: Lolita Adorno on 09-23-2023 WBC (Bld) [#/Vol] 8.2 10*3/uL Normal 4.1-10.5 [facility] Comment on above: Order Comment: Reaso n for Exam Type 2 diabetes mellitus with diabetic chronic kidney diseas Performed By: #### A LT, LIPID, AST #### [facility] [address] [place] [address] [place] Lymphocytes [#/volume] in Bl ood by Automated countOrdered By: Lolita Adorno on 09-23-2023 Lymphocytes (Bld) [#/Vol] 1.6 10*3/uL Normal 1.00-4.8 [facility] Comment on above: Order Comment: Reaso n for Exam Type 2 diabetes mellitus with diabetic chronic kidney diseas Performed By: #### A LT, LIPID, AST #### [facility] [address] [place] [address] [place] Lymphocytes/100 leukocytes i n Blood by Automated countOrdered By: Lolita Adorno on 09-23-2023 Lymphocytes/100 WBC (Bld) 19.3 % Normal . [facility] Comment on above: Order Comment: Reaso n for Exam Type 2 diabetes mellitus with diabetic chronic kidney diseas Performed By: #### A LT, LIPID, AST #### [facility] [address] [place] [address] [place] MCH [Entitic mass] by Automa ruben countOrdered By: Lolita Adorno on 09-23-2023 MCH (RBC) [Entitic mass] 28.1 pg Normal 27.5-35.2 [facility] Comment on above: Order Comment: Reaso n for Exam Type 2 diabetes mellitus with diabetic chronic kidney diseas Performed By: #### A LT, LIPID, AST #### [facility] [address] [place] [address] [place] MCHC Auto (RBC) [Mass/Vol]Or dered By: Lolita Adorno on 09-23-2023 MCHC (RBC) [Mass/Vol] 33.2 g/dL 32.5-35.6 [facility] MCV [Entitic volume] by Auto mated countOrdered By: Lolita Adorno on 09-23-2023 MCV (RBC) [Entitic vol] 84.8 fL Normal 83.5-101 [facility] Comment on above: Order Comment: Reaso n for Exam Type 2 diabetes mellitus with diabetic chronic kidney diseas Performed By: #### A LT, LIPID, AST #### [facility] [address] [place] [address] [place] Neutrophils [#/volume] in Bl ood by Automated countOrdered By: Lolita Adorno on 09-23-2023 Neutrophils (Bld) [#/Vol] 5.5 10*3/uL Normal 1.8-7.7 [facility] Comment on above: Order Comment: Reaso n for Exam Type 2 diabetes mellitus with diabetic chronic kidney diseas Performed By: #### A LT, LIPID, AST #### [facility] [address] No Panel InformationOrdered By: Lolita Adorno on 09-23-2023 Estimated GFR (CKD-EPI) 41.746 mL/Min [facility] Creatinine Clearance (Chem N/A [facility] Nucleated erythrocytes [Pres ence] in Blood by Automated countOrdered By: Lolita Adorno on 09-23-2023 Nucleated RBC Auto Ql (Bld) 0.1 /100{WBC} 0-0.5 [facility] Platelet mean volume [Entiti c volume] in Blood by Automated countOrdered By: Lolita Adorno on 09-23-2023 Platelet mean volume (Bld) [Entitic vol] 8.8 fL Normal 6.6-10.1 [facility] Comment on above: Order Comment: Reaso n for Exam Type 2 diabetes mellitus with diabetic chronic kidney diseas Performed By: #### A LT, LIPID, AST #### [facility] [address] [place] [address] [place] Platelets [#/volume] in Bloo d by Automated countOrdered By: Lolita Adorno on 09-23-2023 Platelets (Bld) [#/Vol] 194 10*3/uL Normal 150-450 [facility] Comment on above: Order Comment: Reaso n for Exam Type 2 diabetes mellitus with diabetic chronic kidney diseas Performed By: #### A LT, LIPID, AST #### [facility] [address] Potassium [Moles/volume] in Serum or PlasmaOrdered By: Lolita Schwerer on 09-23-2023 Potassium [Moles/Vol] 4.3 mmol/L Normal 3.5-5.1 [facility] Comment on above: Order Comment: Reaso n for Exam Type 2 diabetes mellitus with diabetic chronic kidney diseas Performed By: #### A LT, LIPID, AST #### [facility] [address] [place] [address] [place] Protein [Mass/volume] in Ser um or PlasmaOrdered By: Lolita Mendeserer on 09-23-2023 Protein [Mass/Vol] 6.2 g/dL Low 6.4-8.9 [facility] Comment on above: Order Comment: Reaso n for Exam Type 2 diabetes mellitus with diabetic chronic kidney diseas Performed By: #### A LT, LIPID, AST #### [facility] [address] [place] [address] Serum globulin measurement b y calculation (mass/volume)Ordered By: Lolita Adorno on 09-23-2023 Globulin (S) [Mass/Vol] 2.3 g/dL Normal [facility] Comment on above: Order Comment: Reaso n for Exam Type 2 diabetes mellitus with diabetic chronic kidney diseas Performed By: #### A LT, LIPID, AST #### [facility] [address] [place] [address] Serum or plasma albumin/glob ulin mass ratioOrdered By: Lolita Schwerer on 09-23-2023 Albumin/Globulin [Mass ratio] 1.7 {ratio} Normal [facility] Comment on above: Order Comment: Reaso n for Exam Type 2 diabetes mellitus with diabetic chronic kidney diseas Performed By: #### A LT, LIPID, AST #### [facility] [address] [place] [address] Serum or plasma anion gap de terminationOrdered By: Lolita Schwerer on 09-23-2023 Anion gap [Moles/Vol] 9.4 mmol/L Normal 6.0-15.0 [facility] Comment on above: Order Comment: Reaso n for Exam Type 2 diabetes mellitus with diabetic chronic kidney diseas Performed By: #### A LT, LIPID, AST #### [facility] [address] [place] [address] [place] Sodium [Moles/volume] in Ser um or PlasmaOrdered By: Lolita Adorno on 09-23-2023 Sodium [Moles/Vol] 141 mmol/L Normal 136-145 [facility] Comment on above: Order Comment: Reaso n for Exam Type 2 diabetes mellitus with diabetic chronic kidney diseas Performed By: #### A LT, LIPID, AST #### [facility] [address] [place] [address] [place] Urea nitrogen [Mass/volume] in Serum or PlasmaOrdered By: Lolita Adorno on 09-23-2023 Urea nitrogen [Mass/Vol] 20 mg/dL Normal 7-25 [facility] Comment on above: Order Comment: Reaso n for Exam Type 2 diabetes mellitus with diabetic chronic kidney diseas Performed By: #### A LT, LIPID, AST #### [facility] [address] [place] [address] XR hand RT min 3V*on 023 XR hand RT min 3V* [facility] [place] [address] [place] [address] XRay Report Signed Patient: Dave Lugo MR#: [id number] : 1950 Acct:[id number] Age/Sex: 73 / M ADM Date: 09/18/23 [place] [facility] [place]: Type: [facility] Attending Dr: Prieto Santo MD Copies [...] Rob Chung M.D.09/18/2023 12:30 PM Dictation Location: [place] [address] Transcribed By: [facility] 09/18/23 1230 Dictated By: Rob Chung DO 09/18/23 1228 Signed By: 09/18/23 1230 Normal [facility] Automated basophil %Ordered By: Barbie Osborn on 09-11-2023 Basophils/100 WBC (Bld) 0.5 % Normal . [facility] Comment on above: Performed By: #### G LULS #### Point of Care testing , Automated basophil countOrde red By: Barbie Osborn on 09-11-2023 Basophils (Bld) [#/Vol] 0.0 10*3/uL Normal 0.0-0.2 [facility] Comment on above: Result Comment: PERF ORMED BY: [facility] [address] [place] [address] PATHOLOGIST FITNESS CONSULTANT LAZARUS MILLER M.D. Performed By: #### G LULS #### Point of Care testing , Automated blood monocyte cou ntOrdered By: Barbie Osborn on 09-11-2023 Monocytes (Bld) [#/Vol] 1.0 10*3/uL High 0.0-0.8 [facility] Comment on above: Performed By: #### G LULS #### Point of Care testing , Automated eosinophil %Ordere d By: Barbie Osborn on 09-11-2023 Eosinophils/100 WBC (Bld) 4.4 % Normal . [facility] Comment on above: Performed By: #### G LULS #### Point of Care testing , Automated eosinophil countOr dered By: Barbie Osborn on 09-11-2023 Eosinophils (Bld) [#/Vol] 0.4 10*3/uL Normal 0.0-0.45 [facility] Comment on above: Performed By: #### G LULS #### Point of Care testing , Automated monocyte %Ordered By: Barbie Osborn on 09-11-2023 Monocytes/100 WBC (Bld) 12.6 % Normal . [facility] Comment on above: Performed By: #### G LULS #### Point of Care testing , Automated neutrophil %Ordere d By: Barbie Osborn on 09-11-2023 Neutrophils/100 WBC (Bld) 60.7 % Normal . [facility] Comment on above: Performed By: #### G LULS #### Point of Care testing , Basic Metabolic Panelon 120 Creatinine Clr Calc Pharmacy 27.23 Normal [facility] Comment on above: Result Comment: PERF ORMED BY: [facility] [place] [address] PATHOLOGIST FITNESS CONSULTANT LAZARUS MILLER M.D. Performed By: #### G LULS #### Point of Care testing , GFR/1.73 sq M.predicted MDRD (S/P/Bld) [Vol rate/Area] 31.193 mL/min/{1.73_m2} Normal [facility] Comment on above: Performed By: #### G LULS #### Point of Care testing , Calcium [Mass/volume] in Ser um or PlasmaOrdered By: Barbie Osborn on 09-11-2023 Calcium [Mass/Vol] 8.4 mg/dL Low 8.6-10.3 [facility] Comment on above: Performed By: #### G LULS #### Point of Care testing , Capillary blood glucose kirk urement by glucometer (mass/volume)Ordered By: Barbie Osborn on 09-11-2023 Glucose [Mass/Vol] 304 mg/dL Normal [facility] Comment on above: Random Glucose Refer ence Range is dependent on time and content of last meal. Glucose of more than 200 mg/dL in a nonstressed, ambulatory subject supports the diagnosis of Diabetes Mellitus. Result Comment: [place] [facility] Glucose Reference Range is dependent on time and content of last meal. Glucose of more than 200 mg/dL in a nonstressed, ambulatory subject supports the diagnosis of Diabetes Mellitus. PERFORMED BY: [facility] [address] [place] [address] PATHOLOGIST FITNESS CONSULTANT LAZARUS MILLER M.D. Performed By: #### A LT, LIPID, AST #### [facility] [address] Carbon dioxide, total [Moles /volume] in Serum or PlasmaOrdered By: Barbie Osborn on 09-11-2023 CO2 [Moles/Vol] 24.0 mmol/L Normal 21.0-31.0 [facility] Comment on above: Performed By: #### G LULS #### Point of Care testing , Chloride [Moles/volume] in S antolin or PlasmaOrdered By: Barbie Osborn on 09-11-2023 Chloride [Moles/Vol] 109 mmol/L High 98-107 [facility] Comment on above: Performed By: #### G LULS #### Point of Care testing , Complete Blood Count Auto Di ffon 09-11-2023 Mean Corpuscular HGB Conc 34.3 g/dL Normal 32.5-35.6 [facility] Comment on above: Performed By: #### G LULS #### Point of Care testing , NRBC% 0.0 /100{WBC} Normal 0-0.5 [facility] Comment on above: Performed By: #### G LULS #### Point of Care testing , Creatinine [Mass/volume] in Serum or PlasmaOrdered By: Barbie Osborn on 09-11-2023 Creatinine [Mass/Vol] 2.18 mg/dL High 0.70-1.30 [facility] Comment on above: Performed By: #### G LULS #### Point of Care testing , Erythrocyte distribution wid th [Ratio] by Automated countOrdered By: Barbie Osborn on 09-11-2023 Erythrocyte distribution width (RBC) [Ratio] 13.2 % Normal 12.0-14.8 [facility] Comment on above: Performed By: #### G LULS #### Point of Care testing , Erythrocytes [#/volume] in B lood by Automated countOrdered By: Barbie Osborn on 09-11-2023 RBC (Bld) [#/Vol] 3.64 10*6/uL Low 3.90-5.60 [facility] Comment on above: Performed By: #### G GIRMA #### Point of Care testing , Glucose [Mass/volume] in Ser um or PlasmaOrdered By: Barbie Osborn on 09-11-2023 Glucose [Mass/Vol] 136 mg/dL High 70-100 [facility] Comment on above: ADA recommended refe rence rangeRandom Glucose Reference Range is dependent on time and content of last meal. Glucose of more than 200 mg/dL in a nonstressed, ambulatory subject supports the diagnosis of Diabetes Mellitus. Result Comment: [place] om Glucose Reference Range is dependent on [...] (Bld) [Volume fraction] 30.6 % Low 38.8-50.0 [facility] Comment on above: Performed By: #### G GIRMA #### Point of Care testing , Hemoglobin [Mass/volume] in BloodOrdered By: Barbie Osborn on 09-11-2023 Hemoglobin (Bld) [Mass/Vol] 10.5 g/dL Low 13.0-17.0 [facility] Comment on above: Performed By: #### G GIRMA #### Point of Care testing , Leukocytes [#/volume] correc ruben for nucleated erythrocytes in Blood by Automated counOrdered By: Barbie Osborn on 09-11-2023 WBC corrected for nucl RBC Auto (Bld) [#/Vol] 8.0 10*3/uL 4.1-10.5 [facility] Leukocytes [#/volume] in Blo od by Automated countOrdered By: Barbie Osborn on 09-11-2023 WBC (Bld) [#/Vol] 8.0 10*3/uL Normal 4.1-10.5 [facility] Comment on above: Performed By: #### G LULS #### Point of Care testing , Lymphocytes [#/volume] in Bl ood by Automated countOrdered By: Barbie Osborn on 09-11-2023 Lymphocytes (Bld) [#/Vol] 1.7 10*3/uL Normal 1.00-4.8 [facility] Comment on above: Performed By: #### G LULS #### Point of Care testing , Lymphocytes/100 leukocytes i n Blood by Automated countOrdered By: Barbie Osborn on 09-11-2023 Lymphocytes/100 WBC (Bld) 21.8 % Normal . [facility] Comment on above: Performed By: #### G LULS #### Point of Care testing , MCH [Entitic mass] by Automa ruben countOrdered By: Barbie Osborn on 09-11-2023 MCH (RBC) [Entitic mass] 28.9 pg Normal 27.5-35.2 [facility] Comment on above: Performed By: #### G LULS #### Point of Care testing , MCHC Auto (RBC) [Mass/Vol]Or dered By: Barbie Osborn on 09-11-2023 MCHC (RBC) [Mass/Vol] 34.3 g/dL 32.5-35.6 [facility] MCV [Entitic volume] by Auto mated countOrdered By: Barbie Osborn on 09-11-2023 MCV (RBC) [Entitic vol] 84.1 fL Normal 83.5-101 [facility] Comment on above: Performed By: #### G LULS #### Point of Care testing , Neutrophils [#/volume] in Bl ood by Automated countOrdered By: Barbie Osborn on 09-11-2023 Neutrophils (Bld) [#/Vol] 4.8 10*3/uL Normal 1.8-7.7 [facility] Comment on above: Performed By: #### G LULS #### Point of Care testing , No Panel InformationOrdered By: Barbie Osborn on 09-11-2023 Estimated GFR (CKD-EPI) 31.193 mL/Min [facility] Creatinine Clearance (Chem 27.23 [facility] Nucleated erythrocytes [Pres ence] in Blood by Automated countOrdered By: Barbie Osborn on 09-11-2023 Nucleated RBC Auto Ql (Bld) 0.0 /100{WBC} 0-0.5 [facility] Platelet mean volume [Entiti c volume] in Blood by Automated countOrdered By: Barbie Osborn on 09-11-2023 Platelet mean volume (Bld) [Entitic vol] 9.0 fL Normal 6.6-10.1 [facility] Comment on above: Performed By: #### G LULS #### Point of Care testing , Platelets [#/volume] in Bloo d by Automated countOrdered By: Barbie Osborn on 09-11-2023 Platelets (Bld) [#/Vol] 158 10*3/uL Normal 150-450 [facility] Comment on above: Performed By: #### G LULS #### Point of Care testing , Potassium [Moles/volume] in Serum or PlasmaOrdered By: Barbie Osborn on 09-11-2023 Potassium [Moles/Vol] 4.2 mmol/L Normal 3.5-5.1 [facility] Comment on above: Performed By: #### G LULS #### Point of Care testing , Serum or plasma anion gap de terminationOrdered By: Barbie Osborn on 09-11-2023 Anion gap [Moles/Vol] 10.2 mmol/L Normal 6.0-15.0 [facility] Comment on above: Performed By: #### G LULS #### Point of Care testing , Sodium [Moles/volume] in Ser um or PlasmaOrdered By: Barbie Osborn on 09-11-2023 Sodium [Moles/Vol] 139 mmol/L Normal 136-145 [facility] Comment on above: Performed By: #### G LULS #### Point of Care testing , Urea nitrogen [Mass/volume] in Serum or PlasmaOrdered By: Barbie Osborn on 09-11-2023 Urea nitrogen [Mass/Vol] 38 mg/dL High 7-25 [facility] Comment on above: Performed By: #### G LULS #### Point of Care testing , Amylase [Enzymatic activity/ volume] in Serum or PlasmaOrdered By: Joao Coley on 09-10-2023 Amylase [Catalytic activity/Vol] 37 U/L Normal 29-103 [facility] Comment on above: Performed By: #### G LULS #### Point of Care testing , Basic Metabolic Panelon 12-0 Anion gap [Moles/Vol] 10.7 mmol/L Normal 6.0-15.0 [facility] Comment on above: Performed By: #### G LULS #### Point of Care testing , Calcium [Mass/Vol] 8.2 mg/dL Low 8.6-10.3 [facility] Comment on above: Performed By: #### G LULS #### Point of Care testing , Chloride [Moles/Vol] 107 mmol/L Normal 98-107 [facility] Comment on above: Performed By: #### G LULS #### Point of Care testing , CO2 [Moles/Vol] 23.3 mmol/L Normal 21.0-31.0 [facility] Comment on above: Performed By: #### G LULS #### Point of Care testing , Creatinine [Mass/Vol] 2.50 mg/dL Significan t change up 0.70-1.30 [facility] Comment on above: Performed By: #### G LULS #### Point of Care testing , Creatinine Clr Calc Pharmacy 23.75 Normal [facility] Comment on above: Performed By: #### G LULS #### Point of Care testing , GFR/1.73 sq M.predicted MDRD (S/P/Bld) [Vol rate/Area] 26.466 mL/min/{1.73_m2} Normal [facility] Comment on above: Performed By: #### G LULS #### Point of Care testing , Glucose [Mass/Vol] 130 mg/dL High 70-100 [facility] Comment on above: Result Comment: [facility] Glucose Reference Range is dependent on time and content of last meal. Glucose of more than 200 mg/dL in a nonstressed, ambulatory subject supports the diagnosis of Diabetes Mellitus. ADA recommended reference range Performed By: #### G LULS #### Point of Care testing , Potassium [Moles/Vol] 4.0 mmol/L Normal 3.5-5.1 [facility] Comment on above: Performed By: #### G LULS #### Point of Care testing , Sodium [Moles/Vol] 137 mmol/L Normal 136-145 [facility] Comment on above: Performed By: #### G LULS #### Point of Care testing , Urea nitrogen [Mass/Vol] 30 mg/dL High 7-25 [facility] Comment on above: Performed By: #### G LULS #### Point of Care testing , Carbohydrate Antigen 19-9on 09-10-2023 Carbohydrate Antigen 19-9 23 Normal 0-35 [facility] Comment on above: Result Comment: [employer] Electrochemiluminescence Immunoassay (ECLIA) Values obtained with different assay methods or kits cannot be used interchangeably. Results cannot be interpreted as absolute evidence of the presence or absence of malignant disease. Performed at: [facility] [id number] Project Scheduler: Chidi Hernandes PhD, Phone: [phone] PERFORMED BY: [address] [place] [address] PATHOLOGIST FITNESS CONSULTANT LAZARUS MILLER M.D. Performed By: #### C A19 #### [facility] , Glucose Poct Glucometerson 1 11-11-2022 Glucose [Mass/Vol] 183 mg/dL Normal [facility] Comment on above: Result Comment: [facility] Glucose Reference Range is dependent on time and content of last meal. Glucose of more than 200 mg/dL in a nonstressed, ambulatory subject supports the diagnosis of Diabetes Mellitus. PERFORMED BY: [place] [address] PATHOLOGIST FITNESS CONSULTANT LAZARUS MILLER M.D. Performed By: #### G LULS #### Point of Care testing , Glucose [Mass/Vol] 193 mg/dL Normal [facility] Comment on above: Result Comment: [place] om Glucose Reference Range is dependent on time and content of last meal. Glucose of more than 200 mg/dL in a nonstressed, ambulatory subject supports the diagnosis of Diabetes Mellitus. PERFORMED BY: [place] [address] PATHOLOGIST FITNESS CONSULTANT LAZARUS MILLER M.D. Performed By: #### G LULS #### Point of Care testing , Commemt1 Glu2: Cleaned Meter Normal [facility] Comment on above: Result Comment: PERF ORMED BY: [place] [address] PATHOLOGIST FITNESS CONSULTANT LAZARUS MILLER M.D. Performed By: #### G LULS ####Point of Care testing, Glucose [Mass/Vol] 206 mg/dL Normal [facility] Comment on above: Result Comment: [place] om Glucose Reference Range is dependent on time and content of last meal. Glucose of more than 200 mg/dL in a nonstressed, ambulatory subject supports the diagnosis of Diabetes Mellitus. Performed By: #### G LULS ####Point of Care testing, Commemt1 Glu2: Cleaned Meter Normal [facility] Comment on above: Result Comment: PERF ORMED BY: [place] [address] PATHOLOGIST FITNESS CONSULTANT LAZARUS MILLER M.D. Performed By: #### A LT, LIPID, AST #### [address] Glucose [Mass/Vol] 156 mg/dL Normal [facility] Comment on above: Result Comment: [place] Glucose Reference Range is dependent on time and content of last meal. Glucose of more than 200 mg/dL in a nonstressed, ambulatory subject supports the diagnosis of Diabetes Mellitus. Performed By: #### A LT, LIPID, AST #### [place] [address] [place] Lipase [Enzymatic activity/v olume] in Serum or PlasmaOrdered By: Joao Coley on 09-10-2023 Lipase [Catalytic activity/Vol] 25.0 U/L Normal 11.0-82.0 [facility] Comment on above: Result Comment: PERF ORMED BY: [place] [address] PATHOLOGIST FITNESS CONSULTANT LAZARUS MILLER M.D. Performed By: #### G LULS #### Point of Care testing , No Panel InformationOrdered By: Barbie Osborn on 09-10-2023 Bedside Glucose Comment Glu2: cleaned meter [facility] Serum or plasma cancer antig en 19-9 measurement (units/volume)Ordered By: Joao Coley on 09-10-2023 Cancer Ag 19-9 Qn 23 [arb'U]/mL 0-35 [facility] Comment on above: [employer] El ectrochemiluminescence Immunoassay(ECLIA)Values obtained with different assay methods or kits cannotbe used interchangeably. Results cannot be interpreted asabsolute evidence of the presence or absence of malignantdisease.Performed at: [facility] [id number] Director: Chidi Hernandes PhD, Phone: [phone] Albumin [Mass/volume] in Ser um or PlasmaOrdered By: Nette Holden on 09-09-2023 Albumin [Mass/Vol] 3.2 g/dL Normal 2.9-4.4 [facility] Comment on above: Performed By: #### A LT, LIPID, AST #### [facility] [address] Albumin/Protein.total in 24 hour Urine by ElectrophoresisOrdered By: Nette Holden on 09-09-2023 Albumin Elph (24H U) [Mass fraction] 64.4 % . [facility] Basic Metabolic Panelon Anion gap [Moles/Vol] 8.6 mmol/L Normal 6.0-15.0 [facility] Comment on above: Performed By: #### G LULS #### Point of Care testing , Calcium [Mass/Vol] 8.6 mg/dL Normal 8.6-10.3 [facility] Comment on above: Performed By: #### G LULS #### Point of Care testing , Chloride [Moles/Vol] 107 mmol/L Normal 98-107 [facility] Comment on above: Performed By: #### G LULS #### Point of Care testing , CO2 [Moles/Vol] 24.3 mmol/L Normal 21.0-31.0 [facility] Comment on above: Performed By: #### G LULS #### Point of Care testing , Creatinine [Mass/Vol] 1.84 mg/dL High 0.70-1.30 [facility] Comment on above: Performed By: #### G LULS #### Point of Care testing , Creatinine Clr Calc Pharmacy 32.27 Normal [facility] Comment on above: Result Comment: PERF ORMED BY: [address] [place] [address] PATHOLOGIST FITNESS CONSULTANT LAZARUS MILLER M.D. Performed By: #### G LULS #### Point of Care testing , GFR/1.73 sq M.predicted MDRD (S/P/Bld) [Vol rate/Area] 38.232 mL/min/{1.73_m2} Normal [facility] Comment on above: Performed By: #### G LULS #### Point of Care testing , Glucose [Mass/Vol] 125 mg/dL High 70-100 [facility] Comment on above: Result Comment: [facility] Glucose Reference Range is dependent on time and content of last meal. Glucose of more than 200 mg/dL in a nonstressed, ambulatory subject supports the diagnosis of Diabetes Mellitus. ADA recommended reference range Performed By: #### G LULS #### Point of Care testing , Potassium [Moles/Vol] 3.9 mmol/L Normal 3.5-5.1 [facility] Comment on above: Performed By: #### G LULS #### Point of Care testing , Sodium [Moles/Vol] 136 mmol/L Normal 136-145 [facility] Comment on above: Performed By: #### G LULS #### Point of Care testing , Urea nitrogen [Mass/Vol] 23 mg/dL Normal 7-25 [facility] Comment on above: Performed By: #### G LULS #### Point of Care testing , Complete Blood Count Auto Di ffon 09-09-2023 Basophils (Bld) [#/Vol] 0.1 10*3/uL Normal 0.0-0.2 [facility] Comment on above: Result Comment: PERF ORMED BY: [facility] [place] [place] [address] PATHOLOGIST FITNESS CONSULTANT LAZARUS MILLER M.D. Performed By: #### G LULS #### Point of Care testing , Basophils/100 WBC (Bld) 0.8 % Normal . [facility] Comment on above: Performed By: #### G LULS #### Point of Care testing , Eosinophils (Bld) [#/Vol] 0.2 10*3/uL Normal 0.0-0.45 [facility] Comment on above: Performed By: #### G LULS #### Point of Care testing , Eosinophils/100 WBC (Bld) 2.4 % Normal . [facility] Comment on above: Performed By: #### G LULS #### Point of Care testing , Erythrocyte distribution width (RBC) [Ratio] 13.6 % Normal 12.0-14.8 [facility] Comment on above: Performed By: #### G LULS #### Point of Care testing , Hematocrit (Bld) [Volume fraction] 35.7 % Low 38.8-50.0 [facility] Comment on above: Performed By: #### G LULS #### Point of Care testing , Hemoglobin (Bld) [Mass/Vol] 12.0 g/dL Low 13.0-17.0 [facility] Comment on above: Performed By: #### G LULS #### Point of Care testing , Lymphocytes (Bld) [#/Vol] 2.3 10*3/uL Normal 1.00-4.8 [facility] Comment on above: Performed By: #### G LULS #### Point of Care testing , Lymphocytes/100 WBC (Bld) 23.8 % Normal . [facility] Comment on above: Performed By: #### G LULS #### Point of Care testing , MCH (RBC) [Entitic mass] 28.3 pg Normal 27.5-35.2 [facility] Comment on above: Performed By: #### G LULS #### Point of Care testing , MCV (RBC) [Entitic vol] 84.1 fL Normal 83.5-101 [facility] Comment on above: Performed By: #### G LULS #### Point of Care testing , Mean Corpuscular HGB Conc 33.7 g/dL Normal 32.5-35.6 [facility] Comment on above: Performed By: #### G LULS #### Point of Care testing , Monocytes (Bld) [#/Vol] 1.1 10*3/uL High 0.0-0.8 [facility] Comment on above: Performed By: #### G LULS #### Point of Care testing , Monocytes/100 WBC (Bld) 12.2 % Normal . [facility] Comment on above: Performed By: #### G LULS #### Point of Care testing , Neutrophils (Bld) [#/Vol] 5.7 10*3/uL Normal 1.8-7.7 [facility] Comment on above: Performed By: #### G LULS #### Point of Care testing , Neutrophils/100 WBC (Bld) 60.8 % Normal . [facility] Comment on above: Performed By: #### G LULS #### Point of Care testing , NRBC% 0.0 /100{WBC} Normal 0-0.5 [facility] Comment on above: Performed By: #### G LULS #### Point of Care testing , Platelet mean volume (Bld) [Entitic vol] 8.5 fL Normal 6.6-10.1 [facility] Comment on above: Performed By: #### G LULS #### Point of Care testing , Platelets (Bld) [#/Vol] 201 10*3/uL Normal 150-450 [facility] Comment on above: Performed By: [...] on 09-09-2023 Folate [Mass/Vol] 27.0 ng/mL >5.9 [facility] Comment on above: Folate reference ran ge: >5.9 ng/mlThe WHO technical consultation on folate and vitamin [id number] has determined that folate concentrations lessthan 4 ng/ml are considered deficient. Free K+L LT Chains, Qn, Son 09-09-2023 Free [place] Light Chains, S 52.6 mg/L High 3.3-19.4 [facility] Comment on above: Performed By: #### A LT, LIPID, AST #### [facility] [address] Free Lambda Light Chains, S 28.0 mg/L High 5.7-26.3 [facility] Comment on above: Performed By: #### A LT, LIPID, AST #### [facility] [address] [place] [address] [place]/Lambda Ratio, S 1.88 High 0.26-1.65 [facility] Comment on above: Result Comment: Perf ormed at: CB - [facility] [address] [id number] Project Scheduler: Chidi Hernandes PhD, Phone: [phone] PERFORMED BY: [place] [address] PATHOLOGIST FITNESS CONSULTANT LAZARUS MILLER M.D. Performed By: #### A LT, LIPID, AST #### [address] Gamma globulin/Protein.total in 24 hour Urine by ElectrophoresisOrdered By: Nette Holden on 09-09-2023 Gamma globulin Elph (24H U) [Mass fraction] 13.1 % . [facility] Glucose Poct Glucometerson 1 11-10-2022 Commemt1 Glu2: Cleaned Meter Normal [facility] Comment on above: Result Comment: PERF ORMED BY: [place] [address] PATHOLOGIST FITNESS CONSULTANT LAZARUS MILLER M.D. Performed By: #### G LULS #### Point of Care testing , Glucose [Mass/Vol] 189 mg/dL Normal [facility] Comment on above: Result Comment: [place] om Glucose Reference Range is dependent on time and content of last meal. Glucose of more than 200 mg/dL in a nonstressed, ambulatory subject supports the diagnosis of Diabetes Mellitus. Performed By: #### G LULS #### Point of Care testing , Commemt1 Glu2: Cleaned Meter Normal [facility] Comment on above: Result Comment: PERF ORMED BY: [place] [address] PATHOLOGIST FITNESS CONSULTANT LAZARUS MILLER M.D. Performed By: #### G LULS #### Point of Care testing , Glucose [Mass/Vol] 199 mg/dL Normal [facility] Comment on above: Result Comment: [place] om Glucose Reference Range is dependent on time and content of last meal. Glucose of more than 200 mg/dL in a nonstressed, ambulatory subject supports the diagnosis of Diabetes Mellitus. Performed By: #### G LULS #### Point of Care testing , Commemt1 Glu2: Cleaned Meter Normal [facility] Comment on above: Result Comment: PERF ORMED BY: [place] [address] PATHOLOGIST FITNESS CONSULTANT LAZARUS MILLER M.D. Performed By: #### G LULS #### Point of Care testing , Glucose [Mass/Vol] 158 mg/dL Normal [facility] Comment on above: Result Comment: [place] om Glucose Reference Range is dependent on time and content of last meal. Glucose of more than 200 mg/dL in a nonstressed, ambulatory subject supports the diagnosis of Diabetes Mellitus. Performed By: #### G LULS #### Point of Care testing , Glucose [Mass/Vol] 117 mg/dL Normal [facility] Comment on above: Result Comment: [place] om Glucose Reference Range is dependent on time and content of last meal. Glucose of more than 200 mg/dL in a nonstressed, ambulatory subject supports the diagnosis of Diabetes Mellitus. PERFORMED BY: [address] [place] [address] PATHOLOGIST FITNESS CONSULTANT LAZARUS MILLER M.D. Performed By: #### G LULS #### Point of Care testing , IgA [Mass/volume] in Serum o r PlasmaOrdered By: Nette Holden on 09-09-2023 IgA [Mass/Vol] 159 mg/dL 61-437 [facility] IgG [Mass/volume] in Serum o r PlasmaOrdered By: Nette Burnettr on 09-09-2023 IgG [Mass/Vol] 793 mg/dL 603-1613 [facility] IgM [Mass/volume] in Serum o r PlasmaOrdered By: Nette Burnettr on 09-09-2023 IgM [Mass/Vol] 47 mg/dL 15-143 [facility] Immunofixation for UrineOrde red By: Nette Holden on 09-09-2023 Interpretation Immunofixation (U) [Interp] See comment . [facility] Comment on above: No monoclonality det ected.Performed at: [facility] [id number] Director: Chidi Hernandes PhD, Phone: [phone] Immunofixation, (RADHA), Urine on 09-09-2023 Immunofixation, (RADHA), Urine Normal . [facility] Comment on above: Result Comment: No m onoclonality detected. Performed at: [facility] [address] [id number] Project Scheduler: Chidi Hernandes PhD, Phone: [phone] Performed By: #### A LT, LIPID, AST #### [facility] [address] [place] [id number] [place] Immunofixation,Serumon 09-09 Immunofixation, Serum Normal . [facility] Comment on above: Result Comment: No m onoclonality detected. Performed By: #### A LT, LIPID, AST #### [facility] [address] [place] [address] [facility] Immunoglobulin A, Serum 159 mg/dL Normal 61-437 [facility] Comment on above: Performed By: #### A LT, LIPID, AST #### [facility] [address] [place] [id number] [facility] Immunoglobulin G 793 mg/dL Normal 603-1613 [facility] Comment on above: Performed By: #### A LT, LIPID, AST #### [facility] [address] [place] [id number] [facility] Immunoglobulin M, Serum 47 mg/dL Normal 15-143 [facility] Comment on above: Performed By: #### A LT, LIPID, AST #### [facility] [address] [place] [id number] [facility] Immunoglobulin light chains. kappa.free [Mass/volume] in SerumOrdered By: Nette Holden on 09-09-2023 Immunoglobulin light chains.kappa.free (S) [Mass/Vol] 52.6 mg/L 3.3-19.4 [facility] Immunoglobulin light chains. kappa.free/Immunoglobulin light chains.lambda.free [MassOrdered By: Nette Adina on 09-09-2023 Immunoglobulin light chains.kappa.free/Immun oglobulin light chains.lambda.free (S) [Mass ratio] 1.88 0.26-1.65 [facility] Comment on above: Performed at: CB - [facility] [address] [id number] Director: Chidi Hernandes PhD, Phone: [phone] Immunoglobulin light chains. lambda.free [Mass/volume] in Serum or PlasmaOrdered By: Nette Adina on 09-09-2023 Immunoglobulin light chains.lambda.free [Mass/Vol] 28.0 mg/L 5.7-26.3 [facility] Iron [Mass/volume] in Serum or PlasmaOrdered By: Nette Adina on 09-09-2023 Iron [Mass/Vol] 53 ug/dL Normal 50-212 [facility] Comment on above: Performed By: #### G LULS #### Point of Care testing , Iron and TIBC Profileon % Iron Saturation 20.4 % Normal 20-50 [facility] Comment on above: Performed By: #### G LULS #### Point of Care testing , Total Iron Binding Capacity 260 ug/dL Normal 255-450 [facility] Comment on above: Performed By: #### G LULS #### Point of Care testing , Iron binding capacity [Mass/ volume] in Serum or PlasmaOrdered By: Nette Adina on 09-09-2023 Iron binding capacity [Mass/Vol] 260 ug/dL 255-450 [facility] Iron saturation [Mass Fracti on] in Serum or PlasmaOrdered By: Nette Adina on 09-09-2023 Iron saturation [Mass fraction] 20.4 % 20-50 [facility] Javier 09-09-2023 L ---- Specimen: [id number] Received: 09/09/23 Status: FABIO Villalobos Num: [id number] Spec Type: Surgical Subm Dr: Joao Coley MD Tissues: A Duodenum - Biopsy (DUODENAL BX) B GASTRIC FOR HP (GASTRIC HP) Procedures: HE/4, Gross/Micro L4/2, H PYLORI, IHC First AB Age/ Patient Sex Location Account Attending Physician Dave Lugo 73/M [id number] Barbie Osborn MD SPEC NUM: [id number] RECD: 09/09/23 STATUS: FABIO VILLALOBOS NUM: [id number] ANGELINA: 09/09/23- [facility] DR: Joao Coley MD ENTERED: 09/09/[address] [facility] [address]: HINA TYPE: Surgical DEPT: S [...] submitted in one cassette labeled A1. Specimen: [id number] Received: 09/09/23 Status: FABIO Villalobos Num: [id number] Spec Type: Surgical Subm Dr: Joao Coley MD Tissues: A Duodenum - Biopsy (DUODENAL BX) B GASTRIC FOR HP (GASTRIC HP) Procedures: HE/4, Gross/Micro L4/2, H PYLORI, IHC First AB Patient: Dave Lugo Hannah [id number] (Continued) Specimen: [id number] Received: 12/05/23-1234 (Continued) Gross Description (Continued) Signed (signature on file) Edson Clark MD 09/10/232007 Specimen: [id number] Received: 09/09/23 Status: FABIO Villalobos Num: [id number] Spec Type: Surgical Subm Dr: Joao Coley MD Tissues: A Duodenum - Biopsy (DUODENAL BX) B GASTRIC FOR HP (GASTRIC HP) Procedures: HE/4, Gross/Micro L4/2, H PYLORI, IHC First AB Patient: Dave Lugo [id number] (Continued) Specimen: [id number] Received: 09/09/23 (Continued) Gross Description (Continued) B. [...] microscopic examination confirms the diagnosis. CPT Codes 80660h8 Specimen: [id number] Received: 09/09/23 Status: FABIO Ashtoncarol Num: [id number] Spec Type: Surgical Subm Dr: Joao Coley MD Tissues: A Duodenum - Biopsy (DUODENAL BX) B GASTRIC FOR HP (GASTRIC HP) Procedures: HE/4, Gross/Micro L4/2, H PYLORI, IHC First AB Patient: LugoDave [id number] (Continued) Signed (signature on file) Edson Clark MD 09/10/232007 Normal [facility] No Panel InformationOrdered By: Nette Holden on 09-09-2023 Urine Random Prot Electrophor Note See comment . [facility] Comment on above: Protein electrophore sis scan will follow via computer,mail, or stenciler delivery. Protein Electrophoresis M-Donaldo Not observed g/dL Not Observed [facility] Protein Electrophoresis Note See comment . [facility] Comment on above: Protein electrophore sis scan will follow via computer,mail, or stenciler delivery. Serum Immunofixation See comment . [facility] Comment on above: No monoclonality det ected. Protein Electro, Random Urin alex 09-09-2023 Albumin, Urine 64.4 % Normal . [facility] Comment on above: Performed By: #### A LT, LIPID, AST #### [address] Fcucc-1-Gkhiokyl, Urine 2.5 % Normal . [facility] Comment on above: Performed By: #### A LT, LIPID, AST #### [address] Bmglw-4-Xgkeihaa, Urine 7.7 % Normal . [facility] Comment on above: Performed By: #### A LT, LIPID, AST #### [facility] [address] Beta Globulin, Urine 12.3 % Normal . [facility] Comment on above: Performed By: #### A LT, LIPID, AST #### [facility] [address] [place] [address] [place] Gamma Globulin, Urine 13.1 % Normal . [facility] Comment on above: Performed By: #### A LT, LIPID, AST #### [address] M-Donaldo % Not Observed Normal Not Observed [facility] Comment on above: Performed By: #### A LT, LIPID, AST #### [address] Please Note: Normal . [facility] Comment on above: Result Comment: Prot ein electrophoresis scan will follow via computer, mail, or stenciler delivery. PERFORMED BY: [place] [address] PATHOLOGIST FITNESS CONSULTANT LAZARUS MILLER M.D. Performed By: #### A LT, LIPID, AST #### [address] Protein Electrophoresis, Ser umon 09-09-2023 Rexir-3-Ebdyevuh 0.2 g/dL Normal 0.0-0.4 [facility] Comment on above: Performed By: #### A LT, LIPID, AST #### [address] Axiot-8-Mlwtnmjn 0.7 g/dL Normal 0.4-1.0 [facility] Comment on above: Performed By: #### A LT, LIPID, AST #### [address] Beta Globulin 0.7 g/dL Normal 0.7-1.3 [facility] Comment on above: Performed By: #### A LT, LIPID, AST #### [address] Gamma Globulin 0.8 g/dL Normal 0.4-1.8 [facility] Comment on above: Performed By: #### A LT, LIPID, AST #### [address] M-Donaldo Not Observed Normal Not Observed [facility] Comment on above: Performed By: #### A LT, LIPID, AST #### [address] SPE-Note Normal . [facility] Comment on above: Result Comment: Prot ein electrophoresis scan will follow via computer, mail, or stenciler delivery. Performed By: #### A LT, LIPID, AST #### [address] Protein [Mass/volume] in Ser um or PlasmaOrdered By: Nette Holden on 09-09-2023 Protein [Mass/Vol] 5.6 g/dL Low 6.0-8.5 [facility] Comment on above: Performed By: #### A LT, LIPID, AST #### [address] Protein [Mass/volume] in Uri neOrdered By: Nette Holden on 09-09-2023 Protein (U) [Mass/Vol] 76.1 mg/dL Normal Not Estab. [facility] Comment on above: Performed By: #### A LT, LIPID, AST #### [facility] [address] [place] [address] Protein.monoclonal/Protein.t otal in 24 hour Urine by ElectrophoresisOrdered By: Nette Holden on 09-09-2023 Protein.monoclonal Elph (24H U) [Mass fraction] Not observed % Not Observed [facility] Serum globulin measurement ( mass/volume)Ordered By: Nette Holden on 09-09-2023 Globulin (S) [Mass/Vol] 2.4 g/dL Normal 2.2-3.9 [facility] Comment on above: Performed By: #### A LT, LIPID, AST #### [facility] [address] [place] [address] Serum or plasma albumin/glob ulin mass ratioOrdered By: Nette Holden on 09-09-2023 Albumin/Globulin [Mass ratio] 1.3 {ratio} Normal 0.7-1.7 [facility] Comment on above: Performed By: #### A LT, LIPID, AST #### [facility] [address] [place] [address] Serum or plasma alpha 1 glob ulin measurement by electrophoresis (mass/volume)Ordered By: Nette Holden on 09-09-2023 Alpha 1 globulin Elph [Mass/Vol] 0.2 g/dL 0.0-0.4 [facility] Serum or plasma alpha 2 glob ulin measurement by electrophoresis (mass/volume)Ordered By: Nette Holden on 09-09-2023 Alpha 2 globulin Elph [Mass/Vol] 0.7 g/dL 0.4-1.0 [facility] Serum or plasma beta globuli n measurement by electrophoresis (mass/volume)Ordered By: Nette Holden on 09-09-2023 Beta globulin Elph [Mass/Vol] 0.7 g/dL 0.7-1.3 [facility] Serum or plasma gamma globul in measurement by electrophoresis (mass/volume)Ordered By: Nette Holden on 09-09-2023 Gamma globulin Elph [Mass/Vol] 0.8 g/dL 0.4-1.8 [facility] Transferrin [Mass/volume] in Serum or PlasmaOrdered By: Nette Holden on 09-09-2023 Transferrin [Mass/Vol] 186 mg/dL Low 203-362 [facility] Comment on above: Performed By: #### G LULS #### Point of Care testing , Urine alpha 1 globulin/total protein by electrophoresisOrdered By: Nette Holden on 09-09-2023 Alpha 1 globulin Elph (U) [Mass fraction] 2.5 % . [facility] Urine alpha 2 globulin/total protein ratio by electrophoresisOrdered By: Nette Holden on 09-09-2023 Alpha 2 globulin Elph (U) [Mass fraction] 7.7 % . [facility] Urine beta globulin measurem ent by electrophoresis (mass/volume)Ordered By: Nette Holden on 09-09-2023 Beta globulin Elph (U) [Mass/Vol] 12.3 % . [facility] Vit. B12/Folate Profileon Folate 27.0 ng/mL Normal >5.9 [facility] Comment on above: Result Comment: Marie te reference range: >5.9 ng/ml The WHO technical consultation on folate and vitamin b12 deficiencies has determined that folate concentrations less than 4 ng/ml are considered deficient. PERFORMED BY: [place] [address] [address] [address] PATHOLOGIST FITNESS CONSULTANT LAZARUS MILLER M.D. Performed By: #### G LULS #### Point of Care testing , Vitamin B12 ser/plasOrdered By: Nette Holden on 09-09-2023 Cobalamin (Vitamin B12) [Mass/Vol] 1320 pg/mL High 180-914 [facility] Comment on above: Performed By: #### G GIRMA #### Point of Care testing , Alanine aminotransferase [En zymatic activity/volume] in Serum or PlasmaOrdered By: Enrique Chaparro on 09-08-2023 ALT [Catalytic activity/Vol] 9 U/L Normal 7-52 [facility] Comment on above: Performed By: #### C BC, CMP, LIPASE ####[place] [id number] [address] Albumin [Mass/volume] in Ser um or Plasma by Bromocresol green (BCG) dye binding methoOrdered By: Enrique Chaparro on 09-08-2023 Albumin BCG dye [Mass/Vol] 4.1 g/dL 3.5-5.7 [facility] Alkaline phosphatase [Enzyma tic activity/volume] in Serum or PlasmaOrdered By: Enrique Chaparro on 09-08-2023 ALP [Catalytic activity/Vol] 96 U/L Normal 34-104 [facility] Comment on above: Performed By: #### C BC, CMP, LIPASE ####[address] Aspartate aminotransferase [ Enzymatic activity/volume] in Serum or PlasmaOrdered By: Enrique Chaparro on 09-08-2023 AST [Catalytic activity/Vol] 16 U/L Normal 13-39 [facility] Comment on above: Performed By: #### C BC, CMP, LIPASE ####[address] Bilirubin.total [Mass/volume ] in Serum or PlasmaOrdered By: Enrique Chaparro on 09-08-2023 Bilirubin [Mass/Vol] 0.4 mg/dL Normal 0.3-1.0 [facility] Comment on above: Performed By: #### C BC, CMP, LIPASE ####[place] [id number] [facility] CT angio abdomen pelvison CT angio abdomen pelvis [facility] [address] [place] [address] [place] [address] CT Scan Report Signed Patient: Dave Lugo MR#: [id number] : 1950 Acct:[id number] Age/Sex: 73 / M ADM Date: 09/08/23 Loc: ER Room: Type: [facility] ER Attending Dr: Copies to: Enrique Chaparro [...] Destinee Alexander M.D.09/08/2023 8:40 AM Dictation Location: [place] [address] Transcribed By: [facility] 09/08/23839 Dictated By: Destinee Alexander MD 09/08/2329 Signed By: 09/08/23839 Normal [facility] Complete Blood Count Auto Di ffon 09-08-2023 Basophils (Bld) [#/Vol] 0.1 10*3/uL Normal 0.0-0.2 [facility] Comment on above: Result Comment: PERF ORMED BY: [facility] [address] [facility] [address] PATHOLOGIST FITNESS CONSULTANT LAZARUS MILLER M.D. Performed By: #### C BC, CMP, LIPASE ####[address] Basophils/100 WBC (Bld) 0.7 % Normal . T [facility] Comment on above: Performed By: #### C BC, CMP, LIPASE ####[place] [id number] [facility] Eosinophils (Bld) [#/Vol] 0.4 10*3/uL Normal 0.0-0.45 [facility] Comment on above: Performed By: #### C BC, CMP, LIPASE ####[address] Eosinophils/100 WBC (Bld) 4.4 % Normal . [facility] Comment on above: Performed By: #### C BC, CMP, LIPASE ####[address] Erythrocyte distribution width (RBC) [Ratio] 13.5 % Normal 12.0-14.8 [facility] Comment on above: Performed By: #### C BC, CMP, LIPASE ####[address] Hematocrit (Bld) [Volume fraction] 38.0 % Low 38.8-50.0 [facility] Comment on above: Performed By: #### C BC, CMP, LIPASE ####[address] Hemoglobin (Bld) [Mass/Vol] 12.7 g/dL Low 13.0-17.0 [facility] Comment on above: Performed By: #### C BC, CMP, LIPASE ####[address] Lymphocytes (Bld) [#/Vol] 1.9 10*3/uL Normal 1.00-4.8 [facility] Comment on above: Performed By: #### C BC, CMP, LIPASE ####[address] Lymphocytes/100 WBC (Bld) 21.4 % Normal . [facility] Comment on above: Performed By: #### C BC, CMP, LIPASE ####[address] MCH (RBC) [Entitic mass] 28.4 pg Normal 27.5-35.2 [facility] Comment on above: Performed By: #### C BC, CMP, LIPASE ####[address] MCV (RBC) [Entitic vol] 85.0 fL Normal 83.5-101 [facility] Comment on above: Performed By: #### C BC, CMP, LIPASE ####[place] [id number] [facility] Mean Corpuscular HGB Conc 33.5 g/dL Normal 32.5-35.6 [facility] Comment on above: Performed By: #### C BC, CMP, LIPASE ####[place] [phone] [facility] Monocytes (Bld) [#/Vol] 0.9 10*3/uL High 0.0-0.8 [facility] Comment on above: Performed By: #### C BC, CMP, LIPASE ####[place] [phone] [facility] Monocytes/100 WBC (Bld) 19.22 % Normal 0.00-20.00 [facility] Comment on above: Performed By: #### C BC, CMP, LIPASE ####[place] [phone] [facility] Monocytes/100 WBC (Bld) 10.2 % Normal . [facility] Comment on above: Performed By: #### C BC, CMP, LIPASE ####[place] [phone] [facility] Neutrophils (Bld) [#/Vol] 5.5 10*3/uL Normal 1.8-7.7 [facility] Comment on above: Performed By: #### C BC, CMP, LIPASE ####[place] [phone] [facility] Neutrophils/100 WBC (Bld) 63.3 % Normal . [facility] Comment on above: Performed By: #### C BC, CMP, LIPASE ####[place] [phone] [facility] NRBC% 0.1 /100{WBC} Normal 0-0.5 [facility] Comment on above: Performed By: #### C BC, CMP, LIPASE ####[place] [phone] [facility] Platelet mean volume (Bld) [Entitic vol] 9.0 fL Normal 6.6-10.1 [facility] Comment on above: Performed By: #### C BC, CMP, LIPASE ####[address] Platelets (Bld) [#/Vol] 199 10*3/uL Normal 150-450 [facility] Comment on above: Performed By: #### C BC, CMP, LIPASE ####[address] RBC (Bld) [#/Vol] 4.47 10*6/uL Normal 3.90-5.60 [facility] Comment on above: Performed By: #### C BC, CMP, LIPASE ####[address] WBC (Bld) [#/Vol] 8.7 10*3/uL Normal 4.1-10.5 [facility] Comment on above: Performed By: #### C BC, CMP, LIPASE ####[address] Comprehensive Metabolic Pane javier 09-08-2023 Albumin [Mass/Vol] 4.1 g/dL Normal 3.5-5.7 [facility] Comment on above: Performed By: #### C BC, CMP, LIPASE ####[address] Anion gap [Moles/Vol] Not performed Normal 6.0-15.0 [facility] Comment on above: Performed By: #### C BC, CMP, LIPASE ####[address] Calcium [Mass/Vol] 9.1 mg/dL Normal 8.6-10.3 [facility] Comment on above: Performed By: #### C BC, CMP, LIPASE ####[address] Chloride [Moles/Vol] 108 mmol/L High 98-107 [facility] Comment on above: Performed By: #### C BC, CMP, LIPASE ####[place] [phone] [place] CO2 [Moles/Vol] 21.9 mmol/L Normal 21.0-31.0 [facility] Comment on above: Performed By: #### C BC, CMP, LIPASE ####[place] [phone] [facility] Creatinine [Mass/Vol] 1.85 mg/dL High 0.70-1.30 [facility] Comment on above: Performed By: #### C BC, CMP, LIPASE ####[address] Creatinine Clr Calc Pharmacy 33.62 Normal [facility] Comment on above: Performed By: #### C BC, CMP, LIPASE ####[place] [phone] [address] GFR/1.73 sq M.predicted MDRD (S/P/Bld) [Vol rate/Area] 37.984 mL/min/{1.73_m2} Normal [facility] Comment on above: Performed By: #### C BC, CMP, LIPASE ####[address] Glucose [Mass/Vol] 142 mg/dL High 70-100 [facility] Comment on above: Result Comment: [place] Glucose Reference Range is dependent on time and content of last meal. Glucose of more than 200 mg/dL in a nonstressed, ambulatory subject supports the diagnosis of Diabetes Mellitus. ADA recommended reference range Performed By: #### C BC, CMP, LIPASE ####[address] Potassium Normal 3.5-5.1 [facility] Comment on above: Result Comment: Spec imen hemolyzed, redraw requested Performed By: #### C BC, CMP, LIPASE ####[address] Sodium [Moles/Vol] 139 mmol/L Normal 136-145 [facility] Comment on above: Performed By: #### C BC, CMP, LIPASE ####[place] [phone] [place] Urea nitrogen [Mass/Vol] 24 mg/dL Normal 7-25 [facility] Comment on above: Performed By: #### C BC, CMP, LIPASE ####[facility] [address] [place] [phone] [facility] ECG 12 lead ECGon 09-08-2023 ECG 12 lead ECG [facility] [address] [place] [address] [place] [id number] Electrocardiograph Report Signed Patient: Dave Lugo MR#: [id number] : 1950 Acct:[id number] Age/Sex: 73 / M ADM Date: 09/08/23 Loc: Room: [address] [place] [address] Type: ADM IN Attending Dr: Barbie Osborn [...] Inferior leads Confirmed by ENRIQUE CHAPARRO DO ([id number]) on 09/08/2023 4:08:19 PM Referred By: Electronically Signed By:ENRIQUE CHAPARRO DO Transcribed By: MUS Signed By Enrique Chaparro DO 09/08 1608 Normal [facility] Glucose Poct Glucometerson 1 11-09-2022 Commemt1 Glu2: Cleaned Meter Normal [facility] Comment on above: Result Comment: PERF ORMED BY: [facility] [address] [place] [id number] PATHOLOGIST FITNESS CONSULTANT LAZARUS MILLER M.D. Performed By: #### A LT, LIPID, AST #### [facility] [address] [place] [id number] [facility] Glucose [Mass/Vol] 235 mg/dL Normal [facility] Comment on above: Result Comment: [place] om Glucose Reference Range is dependent on time and content of last meal. Glucose of more than 200 mg/dL in a nonstressed, ambulatory subject supports the diagnosis of Diabetes Mellitus. Performed By: #### A LT, LIPID, AST #### [facility] [address] Glucose [Mass/Vol] 157 mg/dL Normal [facility] Comment on above: Result Comment: [place] om Glucose Reference Range is dependent on time and content of last meal. Glucose of more than 200 mg/dL in a nonstressed, ambulatory subject supports the diagnosis of Diabetes Mellitus. PERFORMED BY: [place] [address] PATHOLOGIST FITNESS CONSULTANT LAZARUS MILLER M.D. Performed By: #### G LULS ####Point of Care testing, INR in Platelet poor plasma by Coagulation assayOrdered By: Enrique Chaparro on 09-08-2023 INR Coag (PPP) [Relative time] 1.0 {INR} Normal [facility] Comment on above: INR Therapeutic Rang e [...] heart valves: 3 - 4.5 PERFORMED BY: [place] [address] PATHOLOGIST FITNESS CONSULTANT LAZARUS MILLER M.D. Performed By: #### H S TROP, PT ####[facility] [address] [place] [phone] [facility] LDH Lactate Dehydrogenaseon 12-04-2023 LDH Lactate Dehydrogenase 222 U/L Normal 140-271 [facility] Comment on above: Result Comment: PERF ORMED BY: [address] [id number] PATHOLOGIST FITNESS CONSULTANT LAZARUS MILLER M.D. Performed By: #### L DH #### [facility] [address] [place] [id number] [facility] Lactate dehydrogenase [Enzym atic activity/volume] in Serum or Plasma by Lactate to pyOrdered By: Barbie Osborn on 09-08-2023 LDH Lactate to pyruvate reaction [Catalytic activity/Vol] 222 U/L 140-271 [facility] Lipaseon 09-08-2023 Lipase [Catalytic activity/Vol] 35.0 U/L Normal 11.0-82.0 [facility] Comment on above: Result Comment: PERF ORMED BY: [place] [address] PATHOLOGIST FITNESS CONSULTANT LAZARUS MILLER M.D. Performed By: #### C BC, CMP, LIPASE ####[place] [address] [place] [phone] [facility] Monocyte distribution width [Entitic volume] in Blood by AutomatedOrdered By: Enrique Chaparro on 09-08-2023 Monocyte distribution width Auto (Bld) [Entitic vol] 19.22 % 0.00-20.00 [facility] Protein [Mass/volume] in Ser um or PlasmaOrdered By: Enrique Chaparro on 09-08-2023 Protein [Mass/Vol] 6.8 g/dL Normal 6.4-8.9 [facility] Comment on above: Performed By: #### C BC, CMP, LIPASE ####[place] [id number] [place] [phone] [facility] Prothrombin time (PT)Ordered By: Enrique Chaparro on 09-08-2023 PT Coag (PPP) [Time] 11.5 s Normal 9.0-12.9 [facility] Comment on above: A hematocrit value g reater than 55% may lead to inaccurate results in coagulation testing. Patients having hematocrit values >55% require a special collection tube for coagulation studies. Please contact the laboratory at [phone] for redraw instructions. Result Comment: A he matocrit value greater than 55% may lead to inaccurate results in coagulation testing. Patients having hematocrit values >55% require a special collection tube for coagulation studies. Please contact the laboratory at [phone] for redraw instructions. Performed By: #### H S TROP, PT ####[place] [address] Redraw Potassiumon 3 Potassium [Moles/Vol] 4.7 mmol/L Normal 3.5-5.1 [facility] Comment on above: Order Comment: PREVI OUS SPECIMEN HEMOLYZED. NOTIFIED ROEL Result Comment: PERF ORMED BY: [place] [address] PATHOLOGIST FITNESS CONSULTANT LAZARUS MILLER M.D. Performed By: #### A LT, LIPID, AST #### [address] Serum globulin measurement b y calculation (mass/volume)Ordered By: Enrique Chaparro on 09-08-2023 Globulin (S) [Mass/Vol] 2.7 g/dL Normal [facility] Comment on above: Performed By: #### C BC, CMP, LIPASE ####[address] Serum or plasma albumin/glob ulin mass ratioOrdered By: Enrique Chaparro on 09-08-2023 Albumin/Globulin [Mass ratio] 1.5 {ratio} Normal [facility] Comment on above: Performed By: #### C BC, CMP, LIPASE ####[address] Troponin I High Sensitivityo n 09-08-2023 Troponin I High Sensitivity 61.9 pg/mL Off scale high 0.0-20.0 [facility] Comment on above: Result Comment: Crit ical Result : Called to and read back by: SANDRA KOWALSKI at: 09/08/2023 17:42:57 by:JUSTINE PERFORMED BY: [place] [address] PATHOLOGIST FITNESS CONSULTANT LAZARUS MILLER M.D. Performed By: #### H S TROP #### [facility] [address] [place], [place] [id number] [facility] Troponin I High Sensitivity 66.0 pg/mL Off scale high 0.0-20.0 [facility] Comment on above: Result Comment: Crit ical Result : Called to and read back by: SANDRA KOWALSKI at: 09/08/2023 15:18:39 by:JUSTINE PERFORMED BY: [place] [address] PATHOLOGIST FITNESS CONSULTANT LAZARUS MILLER M.D. Performed By: #### A LT, LIPID, AST #### [facility] [address] [place] [address] Troponin I High Sensitivity 69.9 pg/mL Off scale high 0.0-20.0 [facility] Comment on above: Result Comment: Crit ical Result : Called to and read back by: ALBERT RIOS at: 09/08/2023 07:41:36 by:JUSTINE PERFORMED BY: [place] [address] PATHOLOGIST FITNESS CONSULTANT LAZARUS MILLER M.D. Performed By: #### H S TROP, PT ####[address] [address] [facility] Troponin I.cardiac [Mass/vol ume] in Serum or Plasma by Detection limit <= 0.01 ng/Ordered By: Barbie Osborn on 09-08-2023 Troponin I.cardiac DL <= 0.01 ng/mL [Mass/Vol] 61.9 pg/mL 0.0-20.0 [facility] Comment on above: Critical Result : Ca lled to and read back by: SANDRA KOWALSKI at: 09/08/2023 17:42:57 by:JUSTINE XR hand RT min 3V*on 023 XR hand RT min 3V* [facility] [place] [address] [place] [address] XRay Report Signed Patient: Dave Lugo MR#: [id number] : 1950 Acct:[id number] Age/Sex: 73 / M ADM Date: 08/21/23 Loc: [facility] Room: Type: [facility] CLI Attending Dr: Prieto Santo MD Copies [...] Destinee Alexander M.D.08/21/2023 5:09 PM Dictation Location: [place] [address] Transcribed By: [facility] 08/21/231708 Dictated By: Destinee Alexander MD 08/21/231705 Signed By: 08/21/231708 Normal [facility] XR hand RT min 3V*on XR hand RT min 3V* [facility] [place] [address] [place] [address] XRay Report Signed Patient: Dave Lugo MR#: [id number] : 1950 Acct:[id number] Age/Sex: 73 / M ADM Date: 07/31/23 Loc: [facility] Room: Type: REG CLI Attending Dr: Prieto [...] FRACTURE. Impression dictated by: Sagar Caraballo Jr., DKalyee07/31/2023 2:07 PM Dictation Location: [facility] Transcribed By: LOBITO 07/31/23 1407 Dictated By: Sagar Caraballo Jr, DO 07/31/237 Signed By: 07/31/23 1407 Normal [facility] XR hand RT min 3V*on 023 XR hand RT min 3V* [facility] [place] [address] XRay Report Signed Patient: Dave Lugo MR#: [id number] : 1950 Acct:[id number] Age/Sex: 73 / M ADM Date: 07/22/23 [...] 07/22/231414 Signed By: 07/22/23 141 Normal [facility] XR knee RT 4V*on 07-22-2023 XR knee RT 4V* [facility] [place] [address] [place] [address] XRay Report Signed Patient: Dave Lugo MR#: [id number] : 1950 Acct:[id number] Age/Sex: 73 / M ADM Date: 07/22/23 [...] Robin Hernandez M.D.07/22/2023 2:20 PM Dictation Location: [place] [address] Transcribed By: PWS 07/22/23 142 Dictated By: Robin Hernandez II, MD 07/22/231417 Signed By: 07/22/23 142 Normal [facility] A1C HEMOGLOBINon 06-02-2023 HbA1c (Bld) [Mass fraction] 5.9 % [employer] Other HbA1c (Bld) [Mass fraction]o n 06-02-2023 A1C HEMOGLOBIN [place] [employer] Other PSA Screen (Yearly) w/Reflex on 05-16-2023 PSA Screen (Yearly) w/Reflex 1.450 ng/mL Normal 0.000-4.00 0 [facility] Comment on above: Order Comment: Is pa tient <50 yrs? Medicare does not pay <50.: OK OR...The date Patient is eligible for PSA Screen?: 05/2023 Is Medicare the insurance?: Y Did you verify eligibility (Dx Time) check TestViewGp: YES TO ALL Result Comment: PERF ORMED BY: [place] [address] PATHOLOGIST FITNESS CONSULTANT LAZARUS MILLER M.D. Performed By: #### A LT, LIPID, AST #### [address] Prostate specific Ag [Mass/v olume] in Serum or PlasmaOrdered By: Lolita Adorno on 05-16-2023 Prostate specific Ag [Mass/Vol] 1.450 ng/mL 0.000-4.00 0 [facility] XR lumbar spine 6V w bending on 05-06-2023 XR lumbar spine 6V w bending [facility] [place] [address] [place] [address] XRay Report Signed Patient: Dave Lugo MR#: [id number] : 1950 Acct:[id number] Age/Sex: 73 / M ADM Date: 05/06/23 Loc: XD Room: Type: [facility] Attending Dr: Beth REED Copies to: [...] Rob Chung M.D.05/06/2023 2:57 PM Dictation Location: [place] [address] Transcribed By: [facility] 05/06/23 1457 Dictated By: Rob Chung DO 05/06/23 1455 Signed By: 05/06/23 145 Normal [facility] XR lumbar spine 6V w bending [facility] [employer] Other XR lumbar spine 6V w bending [facility] [employer] Other XR lumbar spine 6V w bending [address] [place] [address] [employer] Other XR lumbar spine 6[place] [address] [employer] Other XR lumbar spine 6V w bending XRay Report [employer] Other XR lumbar spine 6V w bending Signed [employer] Other XR lumbar spine 6V w bending Patient: Dave Lugo MR#: [id number] [employer] Other XR lumbar spine 6V w bending [id number] [employer] Other XR lumbar spine 6V w bending : 1950 Acct:[id number] [employer] Other XR lumbar spine 6V w bending Age/Sex: 73 / M ADM Date: 05/06/23 [employer] Other XR lumbar spine 6V w bending Loc: XD Room: Type: [facility] [employer] Other XR lumbar spine 6V w bending Attending Dr: Beth LEÓNC [employer] Other XR lumbar spine 6V w bending Copies to: MAU Ohara[facility] [employer] Other XR lumbar spine 6V w bending Ordering Provider: Beth Lowe [employer]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 No hardware failure. [employer] Other XR lumbar spine 6V w bending BONY ALIGNMENT: No hypermobility. Minor degenerative listhesis. Mild straightening of lumbar [employer] Other XR lumbar spine 6V w bending lordosis. Mild scoliosis [facility] Other XR lumbar spine 6V w bending FRACTURE: None [employer] Other XR lumbar spine 6V w bending DEGENERATIVE CHANGES: Similar moderate degenerative changes. [employer] Other XR lumbar spine 6V w bending SOFT TISSUES: Unremarkable [employer] Other XR lumbar spine 6V w bending BONY MINERALIZATION:Adequate [employer] Other XR lumbar spine 6V w bending XR/XR lumbar spine 6V w bending [employer] Other XR lumbar spine 6V w bending IMPRESSION: No hypermobility. Stable postsurgical and degenerative change. [employer] Other XR lumbar spine 6V w bending Impression dictated by: Rob Chung M.D.05/06/2023 2:57 PM [employer] Other XR lumbar spine 6V w bending Dictation Location: [facility]-- [employer] Other XR lumbar spine 6V w bending Transcribed By: PWS 05/06/23 [facility] [employer] Other XR lumbar spine 6V w bending Dictated By: Rob Chung DO 05/06/23 [facility] [employer] Other XR lumbar spine 6V w bending Signed By: [employer] Other XR lumbar spine 6V w bending 05/06/23 [facility] [employer] Other Alanine aminotransferase [En zymatic activity/volume] in Serum or PlasmaOrdered By: Lolita Adorno on 04-30-2023 ALT [Catalytic activity/Vol] 18 U/L Normal 7-52 [facility] Comment on above: Order Comment: Reaso n for Exam Medicare annual wellness visit, subsequent;Prostate cancer s FASTING. JKW Performed By: #### C MP, LIPID, [id number], CBC, FE PRO ####[facility] [id number] [place] [address] [facility] Albumin [Mass/volume] in Ser um or Plasma by Bromocresol green (BCG) dye binding methoOrdered By: Lolita Adorno on 04-30-2023 Albumin BCG dye [Mass/Vol] 4.1 g/dL 3.5-5.7 [facility] Alkaline phosphatase [Enzyma tic activity/volume] in Serum or PlasmaOrdered By: Lolita Adorno on 04-30-2023 ALP [Catalytic activity/Vol] 87 U/L Normal 34-104 [facility] Comment on above: Order Comment: Reaso n for Exam Medicare annual wellness visit, subsequent;Prostate cancer s FASTING. JKW Result Comment: PERF ORMED BY: [facility] [address] [facility] [address] PATHOLOGIST FITNESS CONSULTANT LAZARUS MILLER M.D. Performed By: #### C MP, LIPID, [id number], CBC, FE PRO ####[address] Aspartate aminotransferase [ Enzymatic activity/volume] in Serum or PlasmaOrdered By: Lolita Adorno on 04-30-2023 AST [Catalytic activity/Vol] 18 U/L Normal 13-39 [facility] Comment on above: Order Comment: Reaso n for Exam Medicare annual wellness visit, subsequent;Prostate cancer s FASTING. JKW Performed By: #### C MP, LIPID, [id number], CBC, FE PRO ####[address] Automated basophil %Ordered By: Lolita Adorno on 04-30-2023 Basophils/100 WBC (Bld) 0.6 % Normal . [facility] Comment on above: Order Comment: Reaso n for Exam Medicare annual wellness visit, subsequent;Prostate cancer s Performed By: #### C MP, LIPID, [id number], CBC, FE PRO ####[address] Automated basophil countOrde red By: Lolita Adorno on 04-30-2023 Basophils (Bld) [#/Vol] 0.0 10*3/uL Normal 0.0-0.2 [facility] Comment on above: Order Comment: Reaso n for Exam Medicare annual wellness visit, subsequent;Prostate cancer s Result Comment: PERF ORMED BY: [facility] [address] [facility] [place] [address] PATHOLOGIST FITNESS CONSULTANT LAZARUS MILLER M.D. Performed By: #### C MP, LIPID, [id number], CBC, FE PRO ####[address] Automated blood monocyte cou ntOrdered By: Lolita Adorno on 04-30-2023 Monocytes (Bld) [#/Vol] 0.9 10*3/uL High 0.0-0.8 [facility] Comment on above: Order Comment: Reaso n for Exam Medicare annual wellness visit, subsequent;Prostate cancer s Performed By: #### C MP, LIPID, [id number], CBC, FE PRO ####[place] [address] [address] Automated eosinophil %Ordere d By: Lolita Vauhgnerer on 04-30-2023 Eosinophils/100 WBC (Bld) 4.9 % Normal . [facility] Comment on above: Order Comment: Reaso n for Exam Medicare annual wellness visit, subsequent;Prostate cancer s Performed By: #### C MP, LIPID, [id number], CBC, FE PRO ####[address] Automated eosinophil countOr dered By: Lolita Vaughnidar on 04-30-2023 Eosinophils (Bld) [#/Vol] 0.3 10*3/uL Normal 0.0-0.45 [facility] Comment on above: Order Comment: Reaso n for Exam Medicare annual wellness visit, subsequent;Prostate cancer s Performed By: #### C MP, LIPID, [id number], CBC, FE PRO ####[address] Automated monocyte %Ordered By: Lolita Mendeserer on 04-30-2023 Monocytes/100 WBC (Bld) 12.5 % Normal . [facility] Comment on above: Order Comment: Reaso n for Exam Medicare annual wellness visit, subsequent;Prostate cancer s Performed By: #### C MP, LIPID, [id number], CBC, FE PRO ####[address] Automated neutrophil %Ordere d By: Lolita Schwerer on 04-30-2023 Neutrophils/100 WBC (Bld) 57.6 % Normal . [facility] Comment on above: Order Comment: Reaso n for Exam Medicare annual wellness visit, subsequent;Prostate cancer s Performed By: #### C MP, LIPID, [id number], CBC, FE PRO ####[address] Bilirubin.total [Mass/volume ] in Serum or PlasmaOrdered By: Lolita Mendeserer on 04-30-2023 Bilirubin [Mass/Vol] 0.4 mg/dL Normal 0.3-1.0 [facility] Comment on above: Order Comment: Reaso n for Exam Medicare annual wellness visit, subsequent;Prostate cancer s FASTING. JKW Performed By: #### C MP, LIPID, [id number], CBC, FE PRO ####[facility] [id number] [place] [address] [place] Calcium [Mass/volume] in Ser um or PlasmaOrdered By: Lolita Schwerer on 04-30-2023 Calcium [Mass/Vol] 8.8 mg/dL Normal 8.6-10.3 [facility] Comment on above: Order Comment: Reaso n for Exam Medicare annual wellness visit, subsequent;Prostate cancer s FASTING. JKW Performed By: #### C MP, LIPID, [id number], CBC, FE PRO ####[facility] [id number] [place] [address] [facility] Carbon dioxide, total [Moles /volume] in Serum or PlasmaOrdered By: Lolita Schwerer on 04-30-2023 CO2 [Moles/Vol] 25.4 mmol/L Normal 21.0-31.0 [facility] Comment on above: Order Comment: Reaso n for Exam Medicare annual wellness visit, subsequent;Prostate cancer s FASTING. JKW Performed By: #### C MP, LIPID, [id number], CBC, FE PRO ####[facility] [address] [place] [address] [place] Chloride [Moles/volume] in S antolin or PlasmaOrdered By: Lolita Schwerer on 04-30-2023 Chloride [Moles/Vol] 110 mmol/L High 98-107 [facility] Comment on above: Order Comment: Reaso n for Exam Medicare annual wellness visit, subsequent;Prostate cancer s FASTING. JKW Performed By: #### C MP, LIPID, [id number], CBC, FE PRO ####[facility] [id number] [place] [address] [place] Cholesterol [Mass/volume] in Serum or PlasmaOrdered By: Lolita Schwerer on 04-30-2023 Cholesterol [Mass/Vol] 114 mg/dL Low 140-200 [facility] Comment on above: Chol less than 200 [...] risk Performed By: #### C MP, LIPID, [id number], CBC, FE PRO ####[facility] [id number] [place] [address] [facility] Cholesterol in LDL Calc [Mas s/Vol]Ordered By: Lolita Adorno on 04-30-2023 Cholesterol in LDL [Mass/Vol] 42 mg/dL 0-100 [facility] Comment on above: LDL ATP III CLASSIFI CATIONLDL less than 100 mg/dL OptimalLDL 100-129 mg/dL Near or above optimalLDL 130-159 mg/dL Borderline highLDL 160-189 mg/dL HighLDL greater than 189 mg/dL Very high Cholesterol in VLDL Calc [Ma ss/Vol]Ordered By: Lolita Adorno on 04-30-2023 Cholesterol in VLDL [Mass/Vol] 40 mg/dL [facility] Complete Blood Count Auto Di ffon 04-30-2023 Mean Corpuscular HGB Conc 33.4 g/dL Normal 32.5-35.6 [facility] Comment on above: Order Comment: Reaso n for Exam Medicare annual wellness visit, subsequent;Prostate cancer s Performed By: #### C MP, LIPID, [id number], CBC, FE PRO ####[facility] [id number] [place] [address] [facility] NRBC% 0.1 /100{WBC} Normal 0-0.5 [facility] Comment on above: Order Comment: Reaso n for Exam Medicare annual wellness visit, subsequent;Prostate cancer s Performed By: #### C MP, LIPID, [id number], CBC, FE PRO ####[facility] [id number] [place] [address] [facility] Comprehensive Metabolic Pane javier 04-30-2023 Albumin [Mass/Vol] 4.1 g/dL Normal 3.5-5.7 [facility] Comment on above: Order Comment: Reaso n for Exam Medicare annual wellness visit, subsequent;Prostate cancer s FASTING. JKW Performed By: #### C MP, LIPID, [id number], CBC, FE PRO ####[place] [address] [place] [address] [facility] GFR/1.73 sq M.predicted MDRD (S/P/Bld) [Vol rate/Area] 40.603 mL/min/{1.73_m2} Normal [facility] Comment on above: Order Comment: Reaso n for Exam Medicare annual wellness visit, subsequent;Prostate cancer s FASTING. JKW Performed By: #### C MP, LIPID, [id number], CBC, FE PRO ####[place] [address] [place] [address] [facility] Creatinine [Mass/volume] in Serum or PlasmaOrdered By: Lolita Adorno on 04-30-2023 Creatinine [Mass/Vol] 1.75 mg/dL High 0.70-1.30 [facility] Comment on above: Order Comment: Reaso n for Exam Medicare annual wellness visit, subsequent;Prostate cancer s FASTING. JKW Performed By: #### C MP, LIPID, [id number], CBC, FE PRO ####[place] [address] [place] [address] [facility] Erythrocyte distribution wid th [Ratio] by Automated countOrdered By: Lolita Adorno on 04-30-2023 Erythrocyte distribution width (RBC) [Ratio] 14.0 % Normal 12.0-14.8 [facility] Comment on above: Order Comment: Reaso n for Exam Medicare annual wellness visit, subsequent;Prostate cancer s Performed By: #### C MP, LIPID, [id number], CBC, FE PRO ####[address] [address] [facility] Erythrocytes [#/volume] in B lood by Automated countOrdered By: Lolita Adorno on 04-30-2023 RBC (Bld) [#/Vol] 4.32 10*6/uL Normal 3.90-5.60 [facility] Comment on above: Order Comment: Reaso n for Exam Medicare annual wellness visit, subsequent;Prostate cancer s Performed By: #### C MP, LIPID, [id number], CBC, FE PRO ####[facility] [place] [address] [facility] FE PROon 04-30-2023 % Iron Saturation 19.8 % Low 20-50 [facility] Comment on above: Order Comment: Reaso n for Exam Medicare annual wellness visit, subsequent;Prostate cancer s FASTING. JKW TOO EARLY FOR PSAS. PT WILL RETURN IN MAY Performed By: #### C MP, LIPID, [id number], CBC, FE PRO ####[place] [address] [place] [address] [facility] Total Iron Binding Capacity 293 ug/dL Normal 255-450 [facility] Comment on above: Order Comment: Reaso n for Exam Medicare annual wellness visit, subsequent;Prostate cancer s FASTING. JKW TOO EARLY FOR PSAS. PT WILL RETURN IN MAY Performed By: #### C MP, LIPID, [id number], CBC, FE PRO ####[place] [address] [place] [address] [facility] Ferritin [Mass/volume] in Se rum or PlasmaOrdered By: Lolita Adorno on 04-30-2023 Ferritin [Mass/Vol] 44.2 ng/mL Normal 23.9-336.2 [facility] Comment on above: Order Comment: Reaso n for Exam Medicare annual wellness visit, subsequent;Prostate cancer s FASTING. JKW TOO EARLY FOR PSAS. PT WILL RETURN IN MAY Performed By: #### C MP, LIPID, [id number], CBC, FE PRO ####[place] [address] [place] [address] [facility] Folate [Mass/volume] in Seru m or PlasmaOrdered By: Lolita Adorno on 04-30-2023 Folate [Mass/Vol] 28.0 ng/mL >5.9 [facility] Comment on above: Folate reference ran ge: >5.9 ng/mlThe WHO technical consultation on folate and vitamin [id number] has determined that folate concentrations lessthan 4 ng/ml are considered deficient. Glucose [Mass/volume] in Ser um or PlasmaOrdered By: Lolita Adorno on 04-30-2023 Glucose [Mass/Vol] 103 mg/dL High 70-100 [facility] Comment on above: ADA recommended refe rence rangeRandom Glucose Reference Range is dependent on time and content of last meal. Glucose of more than 200 mg/dL in a nonstressed, ambulatory subject supports the diagnosis of Diabetes Mellitus. Order Comment: Reaso n for Exam Medicare annual wellness visit, subsequent;Prostate cancer s FASTING. JKW Result Comment: [place] om Glucose Reference Range is dependent on time and content of last meal. Glucose of more than 200 mg/dL in a nonstressed, ambulatory subject supports the diagnosis of Diabetes Mellitus. ADA recommended reference range Performed By: #### C MP, LIPID, [id number], CBC, FE PRO ####[facility] [place] [address] [facility] Hematocrit [Volume Fraction] of Blood by Automated countOrdered By: Lolita Adorno on 04-30-2023 Hematocrit (Bld) [Volume fraction] 36.3 % Low 38.8-50.0 [facility] Comment on above: Order Comment: Shanao n for Exam Medicare annual wellness visit, subsequent;Prostate cancer s Performed By: #### C MP, LIPID, [id number], CBC, FE PRO ####[place] [address] [place] [address] [facility] Hemoglobin [Mass/volume] in BloodOrdered By: Lolita Adorno on 04-30-2023 Hemoglobin (Bld) [Mass/Vol] 12.1 g/dL Low 13.0-17.0 [facility] Comment on above: Order Comment: Shanao n for Exam Medicare annual wellness visit, subsequent;Prostate cancer s Performed By: #### C MP, LIPID, [id number], CBC, FE PRO ####[facility] [id number] [place] [address] [facility] Iron [Mass/volume] in Serum or PlasmaOrdered By: Lolita Adorno on 04-30-2023 Iron [Mass/Vol] 58 ug/dL Normal 50-212 [facility] Comment on above: Order Comment: Reaso n for Exam Medicare annual wellness visit, subsequent;Prostate cancer s FASTING. JKW TOO EARLY FOR PSAS. PT WILL RETURN IN MAY Performed By: #### C MP, LIPID, [id number], CBC, FE PRO ####[facility] [id number] [place] [address] [facility] Iron binding capacity [Mass/ volume] in Serum or PlasmaOrdered By: Lolita Adorno on 04-30-2023 Iron binding capacity [Mass/Vol] 293 ug/dL 255-450 [facility] Iron saturation [Mass Fracti on] in Serum or PlasmaOrdered By: Lolita Adorno on 04-30-2023 Iron saturation [Mass fraction] 19.8 % 20-50 [facility] Leukocytes [#/volume] correc ruben for nucleated erythrocytes in Blood by Automated counOrdered By: Lolita Adorno on 04-30-2023 WBC corrected for nucl RBC Auto (Bld) [#/Vol] 7.1 10*3/uL 4.1-10.5 [facility] Leukocytes [#/volume] in Blo od by Automated countOrdered By: Lolita Adorno on 04-30-2023 WBC (Bld) [#/Vol] 7.1 10*3/uL Normal 4.1-10.5 [facility] Comment on above: Order Comment: Reaso n for Exam Medicare annual wellness visit, subsequent;Prostate cancer s Performed By: #### C MP, LIPID, [id number], CBC, FE PRO ####[facility] [id number] [place] [address] [facility] Lipid Panelon 04-30-2023 LDL Cholesterol,Calculated 42 mg/dL Normal 0-100 [facility] Comment on above: Order Comment: [...] high Performed By: #### C MP, LIPID, [id number], CBC, FE PRO ####[place] [address] [address] Triglyceride w/Reflex 202 mg/dL High 0-149 [facility] Comment on above: Order Comment: [...] method. Performed By: #### C MP, LIPID, [id number], CBC, FE PRO ####[place] [address] VLDL CHOLESTEROL 40 mg/dL Normal [facility] Comment on above: Order Comment: Reaso n for Exam Medicare annual wellness visit, subsequent;Prostate cancer s FASTING. JKW TOO EARLY FOR PSAS. PT WILL RETURN IN MAY Performed By: #### C MP, LIPID, [id number], CBC, FE PRO ####[place] [address] Lymphocytes [#/volume] in Bl ood by Automated countOrdered By: Lolita Adorno on 04-30-2023 Lymphocytes (Bld) [#/Vol] 1.7 10*3/uL Normal 1.00-4.8 [facility] Comment on above: Order Comment: Reaso n for Exam Medicare annual wellness visit, subsequent;Prostate cancer s Performed By: #### C MP, LIPID, [id number], CBC, FE PRO ####[address] Lymphocytes/100 leukocytes i n Blood by Automated countOrdered By: Lolita Adorno on 04-30-2023 Lymphocytes/100 WBC (Bld) 24.4 % Normal . [facility] Comment on above: Order Comment: Reaso n for Exam Medicare annual wellness visit, subsequent;Prostate cancer s Performed By: #### C MP, LIPID, [id number], CBC, FE PRO ####[place] [id number] [address] MCH [Entitic mass] by Automa ruben countOrdered By: Lolita Adorno on 04-30-2023 MCH (RBC) [Entitic mass] 28.1 pg Normal 27.5-35.2 [facility] Comment on above: Order Comment: Reaso n for Exam Medicare annual wellness visit, subsequent;Prostate cancer s Performed By: #### C MP, LIPID, [id number], CBC, FE PRO ####[place] [id number] [address] MCHC Auto (RBC) [Mass/Vol]Or dered By: Lolita Adorno on 04-30-2023 MCHC (RBC) [Mass/Vol] 33.4 g/dL 32.5-35.6 [facility] MCV [Entitic volume] by Auto mated countOrdered By: Lolita Adorno on 04-30-2023 MCV (RBC) [Entitic vol] 84.0 fL Normal 83.5-101 [facility] Comment on above: Order Comment: Reaso n for Exam Medicare annual wellness visit, subsequent;Prostate cancer s Performed By: #### C MP, LIPID, [id number], CBC, FE PRO ####[address] Neutrophils [#/volume] in Bl ood by Automated countOrdered By: Lolita Adorno on 04-30-2023 Neutrophils (Bld) [#/Vol] 4.1 10*3/uL Normal 1.8-7.7 [facility] Comment on above: Order Comment: Reaso n for Exam Medicare annual wellness visit, subsequent;Prostate cancer s Performed By: #### C MP, LIPID, [id number], CBC, FE PRO ####[place] [id number] [address] No Panel InformationOrdered By: Lolita Adorno on 04-30-2023 Estimated GFR (CKD-EPI) 40.603 mL/Min [facility] Creatinine Clearance (Chem N/A [facility] Nucleated erythrocytes [Pres ence] in Blood by Automated countOrdered By: Lolita Adorno on 04-30-2023 Nucleated RBC Auto Ql (Bld) 0.1 /100{WBC} 0-0.5 [facility] Platelet mean volume [Entiti c volume] in Blood by Automated countOrdered By: Lolita Adorno on 04-30-2023 Platelet mean volume (Bld) [Entitic vol] 8.2 fL Normal 6.6-10.1 [facility] Comment on above: Order Comment: Reaso n for Exam Medicare annual wellness visit, subsequent;Prostate cancer s Performed By: #### C MP, LIPID, [id number], CBC, FE PRO ####[facility] [id number] [place] [address] [facility] Platelets [#/volume] in Bloo d by Automated countOrdered By: Lolita Adorno on 04-30-2023 Platelets (Bld) [#/Vol] 185 10*3/uL Normal 150-450 [facility] Comment on above: Order Comment: Reaso n for Exam Medicare annual wellness visit, subsequent;Prostate cancer s Performed By: #### C MP, LIPID, [id number], CBC, FE PRO ####[facility] [id number] [place] [address] [place] Potassium [Moles/volume] in Serum or PlasmaOrdered By: Lolita Adorno on 04-30-2023 Potassium [Moles/Vol] 4.5 mmol/L Normal 3.5-5.1 [facility] Comment on above: Order Comment: Reaso n for Exam Medicare annual wellness visit, subsequent;Prostate cancer s FASTING. JKW Performed By: #### C MP, LIPID, [id number], CBC, FE PRO ####[facility] [id number] [place] [address] [place] Protein [Mass/volume] in Ser um or PlasmaOrdered By: Lolita Adorno on 04-30-2023 Protein [Mass/Vol] 6.3 g/dL Low 6.4-8.9 [facility] Comment on above: Order Comment: Reaso n for Exam Medicare annual wellness visit, subsequent;Prostate cancer s FASTING. JKW Performed By: #### C MP, LIPID, [id number], CBC, FE PRO ####[facility] [place] [id number] [facility] Serum globulin measurement b y calculation (mass/volume)Ordered By: Lolita Adorno on 04-30-2023 Globulin (S) [Mass/Vol] 2.2 g/dL Normal [facility] Comment on above: Order Comment: Reaso n for Exam Medicare annual wellness visit, subsequent;Prostate cancer s FASTING. JKW Performed By: #### C MP, LIPID, [id number], CBC, FE PRO ####[place] [id number] [address] Serum or plasma albumin/glob ulin mass ratioOrdered By: Lolita Adorno on 04-30-2023 Albumin/Globulin [Mass ratio] 1.9 {ratio} Normal [facility] Comment on above: Order Comment: Reaso n for Exam Medicare annual wellness visit, subsequent;Prostate cancer s FASTING. JKW Performed By: #### C MP, LIPID, [id number], CBC, FE PRO ####[place] [id number] [address] Serum or plasma anion gap de terminationOrdered By: Lolita Adorno on 04-30-2023 Anion gap [Moles/Vol] 11.1 mmol/L Normal 6.0-15.0 [facility] Comment on above: Order Comment: Reaso n for Exam Medicare annual wellness visit, subsequent;Prostate cancer s FASTING. JKW Performed By: #### C MP, LIPID, [id number], CBC, FE PRO ####[facility] [id number] [place] [id number] [facility] Serum or plasma high density lipoprotein (HDL) cholesterol measurementOrdered By: Lolita Adorno on 04-30-2023 Cholesterol in HDL [Mass/Vol] 32 mg/dL Normal 23-92 [facility] Comment on above: HDL CHOL ATP-III CLA [...] HIGH Performed By: #### C MP, LIPID, [id number], CBC, FE PRO ####[facility] [id number] [place] [id number] [facility] Serum or plasma total choles terol/high density lipoprotein (HDL) cholesterol mass ratOrdered By: Lolita Adorno on 04-30-2023 Cholesterol.total/Flavia sterol in HDL [Mass ratio] 3.6 {ratio} Normal <5.0 [facility] Comment on above: Order Comment: Reaso n for Exam Medicare annual wellness visit, subsequent;Prostate cancer s FASTING. JKW TOO EARLY FOR PSAS. PT WILL RETURN IN MAY Performed By: #### C MP, LIPID, [id number], CBC, FE PRO ####[place] [id number] [facility] Sodium [Moles/volume] in Ser um or PlasmaOrdered By: Lolita Adorno on 04-30-2023 Sodium [Moles/Vol] 142 mmol/L Normal 136-145 [facility] Comment on above: Order Comment: Reaso n for Exam Medicare annual wellness visit, subsequent;Prostate cancer s FASTING. JKW Performed By: #### C MP, LIPID, [id number], CBC, FE PRO ####[facility] [id number] [place], [place] [address] [facility] Transferrin [Mass/volume] in Serum or PlasmaOrdered By: Lolita Adorno on 04-30-2023 Transferrin [Mass/Vol] 209 mg/dL Normal 203-362 [facility] Comment on above: Order Comment: Reaso n for Exam Medicare annual wellness visit, subsequent;Prostate cancer s FASTING. JKW TOO EARLY FOR PSAS. PT WILL RETURN IN MAY Performed By: #### C MP, LIPID, [id number], CBC, FE PRO ####[facility] [id number] [place] [address] [facility] Triglyceride [Mass/volume] i n Serum or PlasmaOrdered By: Lolita Adorno on 04-30-2023 Triglyceride [Mass/Vol] 202 mg/dL 0-149 [facility] Comment on above: TRIG ATP III CLASSIF ICATIONTRIG less than 150 mg/dL NormalTRIG 150-199 mg/dL Borderline highTRIG 200-500 mg/dL High TRIG greater than 500 mg/dL Very highStandard traceable to the Center for Disease Conrtrol and Prevention (CDC) test method. Urea nitrogen [Mass/volume] in Serum or PlasmaOrdered By: Lolita Adorno on 04-30-2023 Urea nitrogen [Mass/Vol] 29 mg/dL High 7-25 [facility] Comment on above: Order Comment: Reaso n for Exam Medicare annual wellness visit, subsequent;Prostate cancer s FASTING. JKW Performed By: #### C MP, LIPID, [id number], CBC, FE PRO ####[facility] [place] [address] [facility] Vit. B12/Folate Profileon Folate 28.0 ng/mL Normal >5.9 [facility] Comment on above: Order Comment: Reaso n for Exam Medicare annual wellness visit, subsequent;Prostate cancer s FASTING. JKW TOO EARLY FOR PSAS. PT WILL RETURN IN MAY Result Comment: Marie te reference range: >5.9 ng/ml The WHO technical consultation on folate and vitamin b12 deficiencies has determined that folate concentrations less than 4 ng/ml are considered deficient. PERFORMED BY: [facility] [address] [place] [address] PATHOLOGIST FITNESS CONSULTANT LAZARUS MILLER M.D. Performed By: #### C MP, LIPID, [id number], CBC, FE PRO ####[facility] [place] [address] [facility] Vitamin B12 ser/plasOrdered By: Lolita Adorno on 04-30-2023 Cobalamin (Vitamin B12) [Mass/Vol] 1086 pg/mL High 180-914 [facility] Comment on above: Order Comment: Reaso n for Exam Medicare annual wellness visit, subsequent;Prostate cancer s FASTING. JKW TOO EARLY FOR PSAS. PT WILL RETURN IN MAY Performed By: #### C MP, LIPID, [id number], CBC, FE PRO ####[facility] [id number] [place] [address] [facility] Office Visit (Cardiology)on 04-22-2023 Follow-up visit Diagnoses/Problems Assessed 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of [place] coronary artery of [place] heart without angina pectoris (414.01) (I25.10) S/P PTCA (percutaneous transluminal coronary angioplasty) (V45.82) (Z98.61) 2017 RCA History of PR (myocardial infarction) (412) (I25.2) Essential hypertension (401.9) (I10) Hyperlipidemia (272.4) (E78.5) Diabetes mellitus (250.00) (E11.9) Stage 3a chronic kidney disease (585.3) (N18.31) Current some day smoker (305.1) (F17.200) 1 pack every 2 weeks Overweight with body mass index (BMI) of 26 to 26.9 in adult (278.02,V85.22) (E66.3,Z68.26) At risk for falls (V15.88) (Z91.81) Orders 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of [place] coronary artery of [place] heart without angina pectoris Changed: From Aspirin EC 81 MG TBEC TAKE 1 TABLET DAILY DIRECTED To Aspirin 81 MG Oral Tablet Delayed Release TAKE 1 TABLET DAILY Essential hypertension Renew: hydrALAZINE HCl - 50 MG Oral Tablet; TAKE 1 TABLET TWICE DAILY Overweight with body mass index (BMI) of 26 to 26.9 in adult Healthy Weight Tips; Status:Complete - Retrospective Authorization; Done: [id number] Some eating tips that can help you lose weight.; Status:Complete - Retrospective Authorization; Done: [id number] SocHx: Current some day smoker You need to stop smoking. Though it is not easy, more than half of all adult smokers have quit. We encourage you to write down all the reasons you should quit smoking and set a quit date for yourself. Ask us how we can help. You may also call 7-562-GTGV-NOW for free resources and assistance.; Status:Complete - Retrospective Authorization; Done: [id number] Tobacco Use Screening; Status:Complete; Done: [id number] Patient Instructions Please bring all medicines, vitamins, [...] Oral TabletTAK (more content not included)... Normal delicious Tobacco Screening.on 023 Fall risk assessment b) One or more fall s in the last year -Merged With [facility] 250 DO Work Phone: Tobacco use status [facility] a) Yes M -Merged With [facility] 250 DO Work Phone: Tobacco Screening. Yes [facility] 250 DO Work Phone: Alanine aminotransferase [En zymatic activity/volume] in Serum or PlasmaOrdered By: Gabriela Florian on 04-15-2023 ALT [Catalytic activity/Vol] 19 U/L Normal 7-52 [facility] Comment on above: Performed By: #### G LULS #### Point of Care testing , Aspartate aminotransferase [ Enzymatic activity/volume] in Serum or PlasmaOrdered By: Gabriela Florian on 04-15-2023 AST [Catalytic activity/Vol] 19 U/L Normal 13-39 [facility] Comment on above: Performed By: #### G LULS #### Point of Care testing , Automated basophil %Ordered By: Gabriela Florian on 04-15-2023 Basophils/100 WBC (Bld) 0.6 % Normal . [facility] Comment on above: Performed By: #### A LT, CBC, BMP, AST, LIPID ####[address] Automated basophil countOrde red By: Gabriela Florian on 04-15-2023 Basophils (Bld) [#/Vol] 0.0 10*3/uL Normal 0.0-0.2 [facility] Comment on above: Result Comment: PERF ORMED BY: [facility] [address] [place] [address] PATHOLOGIST FITNESS CONSULTANT LAZARUS MILLER M.D. Performed By: #### A LT, CBC, BMP, AST, LIPID ####[address] Automated blood monocyte cou ntOrdered By: Gabriela Florian on 04-15-2023 Monocytes (Bld) [#/Vol] 0.9 10*3/uL High 0.0-0.8 [facility] Comment on above: Performed By: #### A LT, CBC, BMP, AST, LIPID ####[address] Automated eosinophil %Ordere d By: Gabriela Florian on 04-15-2023 Eosinophils/100 WBC (Bld) 4.2 % Normal . [facility] Comment on above: Performed By: #### A LT, CBC, BMP, AST, LIPID ####[address] Automated eosinophil countOr dered By: Gabriela Florian on 04-15-2023 Eosinophils (Bld) [#/Vol] 0.3 10*3/uL Normal 0.0-0.45 [facility] Comment on above: Performed By: #### A LT, CBC, BMP, AST, LIPID ####[address] Automated monocyte %Ordered By: Gabriela Florian on 04-15-2023 Monocytes/100 WBC (Bld) 10.4 % Normal . [facility] Comment on above: Performed By: #### A LT, CBC, BMP, AST, LIPID ####[facility] [id number] [place] [id number] [facility] Automated neutrophil %Ordere d By: Gabriela Florian on 04-15-2023 Neutrophils/100 WBC (Bld) 64.9 % Normal . [facility] Comment on above: Performed By: #### A LT, CBC, BMP, AST, LIPID ####[facility] [id number] [place] [id number] [facility] Basic Metabolic Panelon 04-05 GFR/1.73 sq M.predicted MDRD (S/P/Bld) [Vol rate/Area] 41.746 mL/min/{1.73_m2} Normal [facility] Comment on above: Performed By: #### G LULS #### Point of Care testing , Calcium [Mass/volume] in Ser um or PlasmaOrdered By: Gabriela Florian on 04-15-2023 Calcium [Mass/Vol] 9.1 mg/dL Normal 8.6-10.3 [facility] Comment on above: Performed By: #### G LULS #### Point of Care testing , Carbon dioxide, total [Moles /volume] in Serum or PlasmaOrdered By: Gabriela Florian on 04-15-2023 CO2 [Moles/Vol] 26.2 mmol/L Normal 21.0-31.0 [facility] Comment on above: Performed By: #### G LULS #### Point of Care testing , Chloride [Moles/volume] in S antolin or PlasmaOrdered By: Gabriela Florian on 04-15-2023 Chloride [Moles/Vol] 109 mmol/L High 98-107 [facility] Comment on above: Performed By: #### G LULS #### Point of Care testing , Cholesterol [Mass/volume] in Serum or PlasmaOrdered By: Gabriela Florian on 04-15-2023 Cholesterol [Mass/Vol] 104 mg/dL Low 140-200 [facility] Comment on above: Chol less than 200 [...] Cholesterol in LDL [Mass/Vol] 43 mg/dL 0-100 [facility] Comment on above: LDL ATP III CLASSIFI CATIONLDL less than 100 mg/dL OptimalLDL 100-129 mg/dL Near or above optimalLDL 130-159 mg/dL Borderline highLDL 160-189 mg/dL HighLDL greater than 189 mg/dL Very high Cholesterol in VLDL Calc [Ma ss/Vol]Ordered By: Gabriela Florian on 04-15-2023 Cholesterol in VLDL [Mass/Vol] 30 mg/dL [facility] Complete Blood Count Auto Di ffon 04-15-2023 Mean Corpuscular HGB Conc 33.0 g/dL Normal 32.5-35.6 [facility] Comment on above: Performed By: #### A LT, CBC, BMP, AST, LIPID ####[facility] [id number] [place] [address] NRBC% 0.0 /100{WBC} Normal 0-0.5 [facility] Comment on above: Performed By: #### A LT, CBC, BMP, AST, LIPID ####[address] Creatinine [Mass/volume] in Serum or PlasmaOrdered By: Gabriela Florian on 04-15-2023 Creatinine [Mass/Vol] 1.71 mg/dL High 0.70-1.30 [facility] Comment on above: Performed By: #### G LULS #### Point of Care testing , Erythrocyte distribution wid th [Ratio] by Automated countOrdered By: Gabriela Florian on 04-15-2023 Erythrocyte distribution width (RBC) [Ratio] 13.9 % Normal 12.0-14.8 [facility] Comment on above: Performed By: #### A LT, CBC, BMP, AST, LIPID ####[address] Erythrocytes [#/volume] in B lood by Automated countOrdered By: Gabriela Florian on 04-15-2023 RBC (Bld) [#/Vol] 4.27 10*6/uL Normal 3.90-5.60 [facility] Comment on above: Performed By: #### A LT, CBC, BMP, AST, LIPID ####[facility] [id number] [place] [address] [facility] Glucose [Mass/volume] in Ser um or PlasmaOrdered By: Gabriela Florian on 04-15-2023 Glucose [Mass/Vol] 141 mg/dL High 70-100 [facility] Comment on above: ADA recommended refe rence rangeRandom Glucose Reference Range is dependent on time and content of last meal. Glucose of more than 200 mg/dL in a nonstressed, ambulatory subject supports the diagnosis of Diabetes Mellitus. Result Comment: [place] om Glucose Reference Range is dependent on time and content of last meal. Glucose of more than 200 mg/dL in a nonstressed, ambulatory subject supports the diagnosis of Diabetes Mellitus. ADA recommended reference range Performed By: #### G LULS #### Point of Care testing , Hematocrit [Volume Fraction] of Blood by Automated countOrdered By: Gabriela Florian on 04-15-2023 Hematocrit (Bld) [Volume fraction] 35.7 % Low 38.8-50.0 [facility] Comment on above: Performed By: #### A LT, CBC, BMP, AST, LIPID ####[facility] [place] [address] [facility] Hemoglobin [Mass/volume] in BloodOrdered By: Gabriela Florian on 04-15-2023 Hemoglobin (Bld) [Mass/Vol] 11.8 g/dL Low 13.0-17.0 [facility] Comment on above: Performed By: #### A LT, CBC, BMP, AST, LIPID ####[facility] [id number] [place] [id number] [facility] Laboratory - Chemistry and C hemistry - challengeon 04-15-2023 Cholesterol [Mass/Vol] 104\S\104 below low threshold 140-200 MP-Merged With [facility] 600 DO Work Phone: Comment on above: Chol less than 200 m g/dl low risk Chol 201-239 mg/dl borderline risk Chol 240 mg/dl and greater high risk Cholesterol in LDL [Mass/Vol] 43\S\43 Normal 0-100 [facility] 600 DO Work Phone: Comment on [...] RBC Auto (Bld) [#/Vol] 8.2 10*3/uL 4.1-10.5 [facility] Leukocytes [#/volume] in Blo od by Automated countOrdered By: Gabriela Florian on 04-15-2023 WBC (Bld) [#/Vol] 8.2 10*3/uL Normal 4.1-10.5 [facility] Comment on above: Performed By: #### A LT, CBC, BMP, AST, LIPID ####[facility] [id number] [place] [id number] [facility] Lipid Panelon 04-15-2023 LDL Cholesterol,Calculated 43 mg/dL Normal 0-100 [facility] Comment on above: Result Comment: LDL ATP III CLASSIFICATION LDL less than 100 mg/dL Optimal LDL 100-129 mg/dL Near or above optimal LDL 130-159 mg/dL Borderline high LDL 160-189 mg/dL High LDL greater than 189 mg/dL Very high Performed By: #### G LULS #### Point of Care testing , Triglyceride w/Reflex 154 mg/dL High 0-149 [facility] Comment on above: Result Comment: TRIG ATP III CLASSIFICATION TRIG less than 150 mg/dL Normal TRIG 150-199 mg/dL Borderline high TRIG 200-500 mg/dL High TRIG greater than 500 mg/dL Very high Standard traceable to the Center for Disease Conrtrol and Prevention (CDC) test method. Performed By: #### G LULS #### Point of Care testing , VLDL CHOLESTEROL 30 mg/dL Normal [facility] Comment on above: Performed By: #### G LULS #### Point of Care testing , Lymphocytes [#/volume] in Bl ood by Automated countOrdered By: Gabriela Florian on 04-15-2023 Lymphocytes (Bld) [#/Vol] 1.6 10*3/uL Normal 1.00-4.8 [facility] Comment on above: Performed By: #### A LT, CBC, BMP, AST, LIPID ####[address] Lymphocytes/100 leukocytes i n Blood by Automated countOrdered By: Gabriela Florian on 04-15-2023 Lymphocytes/100 WBC (Bld) 19.9 % Normal . [facility] Comment on above: Performed By: #### A LT, CBC, BMP, AST, LIPID ####[address] MCH [Entitic mass] by Automa ruben countOrdered By: Gabriela Florian on 04-15-2023 MCH (RBC) [Entitic mass] 27.6 pg Normal 27.5-35.2 [facility] Comment on above: Performed By: #### A LT, CBC, BMP, AST, LIPID ####[address] MCHC Auto (RBC) [Mass/Vol]Or dered By: Gabriela Florian on 04-15-2023 MCHC (RBC) [Mass/Vol] 33.0 g/dL 32.5-35.6 [facility] MCV [Entitic volume] by Auto mated countOrdered By: Gabriela Florian on 04-15-2023 MCV (RBC) [Entitic vol] 83.6 fL Normal 83.5-101 [facility] Comment on above: Performed By: #### A LT, CBC, BMP, AST, LIPID ####[address] Neutrophils [#/volume] in Bl ood by Automated countOrdered By: Gabriela Florian on 04-15-2023 Neutrophils (Bld) [#/Vol] 5.3 10*3/uL Normal 1.8-7.7 [facility] Comment on above: Performed By: #### A LT, CBC, BMP, AST, LIPID ####[facility] [id number] [place] [address] [facility] No Panel InformationOrdered By: Gabriela Florian on 04-15-2023 Estimated GFR (CKD-EPI) 41.746 mL/Min [facility] Creatinine Clearance (Chem N/A [facility] No Panel Informationon 04-15 64.9\S\64.9 Normal . [facility] 600 DO Work Phone: 8.8\S\8.8 Normal 6.6-10.1 [facility] 600 DO Work Phone: 165\S\165 Normal 150-450 [facility] 600 DO Work Phone: 13.9\S\13.9 Normal 12.0-14.8 -Merged With [facility] 600 DO Work Phone: 33.0\S\33.0 Normal 32.5-35.6 [facility] 600 DO Work Phone: 27.6\S\27.6 Normal 27.5-35.2 [facility] 600 DO Work Phone: 5.3\S\5.3 Normal 1.8-7.7 [facility] 600 DO Work Phone: 0.0\S\0.0 Normal 0.0-0.2 [facility] 600 DO Work Phone: Comment on above: PERFORMED BY:[facility] [place], [place] [id number] MEDICAL DIRECTORLAZARUS MILLER M.D. 0.6\S\0.6 Normal . -Merged With [facility] 600 DO Work Phone: 4.2\S\4.2 Normal . [facility] 600 DO Work Phone: 10.4\S\10.4 Normal . [facility] 600 DO Work Phone: 19.9\S\19.9 Normal . [facility] 600 DO Work Phone: 0.3\S\0.3 Normal 0.0-0.45 -Merged With [facility] 600 DO Work Phone: 0.9\S\0.9 above high threshold 0.0-0.8 -Merged With [facility] 600 DO Work Phone: 1.6\S\1.6 Normal 1.00-4.8 [facility] 600 DO Work Phone: 83.6\S\83.6 Normal 83.5-101 -Merged With [facility] 600 DO Work Phone: 35.7\S\35.7 below low threshold 38.8-50.0 [facility] 600 DO Work Phone: 11.8\S\11.8 below low threshold 13.0-17.0 [facility] 600 DO Work Phone: 4.27\S\4.27 Normal 3.90-5.60 -Merged With [facility] 600 DO Work Phone: 8.2\S\8.2 Normal 4.1-10.5 [facility] 600 DO Work Phone: 41.746\S\41.746 Normal [facility] 600 DO Work Phone: 10.2\S\10.2 Normal 6.0-15.0 MP-Merged With [facility] 600 DO Work Phone: [phone] 9.1\S\9.1 Normal 8.6-10.3 MP-Merged With [facility] 600 DO Work Phone: [phone] 26.2\S\26.2 Normal 21.0-31.0 MP-Merged With [facility] 600 DO Work Phone: [phone] 109\S\109 above high threshold 98-107 MP-Merged With [facility] 600 DO Work Phone: [phone] 5.4\S\5.4 above high threshold 3.5-5.1 MP-Merged With [facility] 600 DO Work Phone: [phone] 140\S\140 Normal 136-145 MP-Merged With [facility] 600 DO Work Phone: [phone] 1.71\S\1.71 above high threshold 0.70-1.30 MP-Merged With [facility] [place] 600 DO Work Phone: [phone] 33\S\33 above high threshold 7-25 MP-Merged With [facility] [place] 600 DO Work Phone: [phone] 141\S\141 above high threshold 70-100 MP-Merged With [facility] 600 DO Work Phone: [phone] Comment on above: Random Glucose Refer ence Range is dependent on time and content of last meal. Glucose of more than 200 mg/dL in a nonstressed, ambulatory subject supports the diagnosis of Diabetes Mellitus. ADA recommended reference range 19\S\19 Normal 7-52 MP-Merged With [facility] [place] 600 DO Work Phone: [phone] 3.5\S\3.5 Normal <5.0 MP-Merged With [facility] [place] 600 DO Work Phone: [phone] Comment on above: PERFORMED BY:[place] [address] [place], [place] [id number] MEDICAL DIRECTORLAZARUS MILLER M.D. 30\S\30 Normal 23-92 [facility] 600 DO Work Phone: Comment on above: HDL CHOL ATP-III CLA SSIFICATION Cardiovascular Risk HDL > or equal to 60 mg/dL LOW HDL < 40 mg/dL HIGH 154\S\154 above high threshold 0-149 [facility] 600 DO Work Phone: Comment on [...] RBC Auto Ql (Bld) 0.0 /100{WBC} 0-0.5 [facility] Platelet mean volume [Entiti c volume] in Blood by Automated countOrdered By: Gabriela Florian on 04-15-2023 Platelet mean volume (Bld) [Entitic vol] 8.8 fL Normal 6.6-10.1 [facility] Comment on above: Performed By: #### A LT, CBC, BMP, AST, LIPID ####[facility] [id number] [place] [id number] [facility] Platelets [#/volume] in Bloo d by Automated countOrdered By: Gabriela Florian on 04-15-2023 Platelets (Bld) [#/Vol] 165 10*3/uL Normal 150-450 [facility] Comment on above: Performed By: #### A LT, CBC, BMP, AST, LIPID ####[facility] [id number] [place] [address] [facility] Potassium [Moles/volume] in Serum or PlasmaOrdered By: Gabriela Florian on 04-15-2023 Potassium [Moles/Vol] 5.4 mmol/L High 3.5-5.1 [facility] Comment on above: Performed By: #### G LULS #### Point of Care testing , Serum or plasma anion gap de terminationOrdered By: Gabriela Florian on 04-15-2023 Anion gap [Moles/Vol] 10.2 mmol/L Normal 6.0-15.0 [facility] Comment on above: Performed By: #### G LULS #### Point of Care testing , Serum or plasma high density lipoprotein (HDL) cholesterol measurementOrdered By: Gabriela Florian on 04-15-2023 Cholesterol in HDL [Mass/Vol] 30 mg/dL Normal 23-92 [facility] Comment on above: HDL CHOL ATP-III CLA [...] HDL [Mass ratio] 3.5 {ratio} Normal <5.0 [facility] Comment on above: Result Comment: PERF ORMED BY: [facility] [address] [place] [address] PATHOLOGIST FITNESS CONSULTANT LAZARUS MILLER M.D. Performed By: #### G LULS #### Point of Care testing , Sodium [Moles/volume] in Ser um or PlasmaOrdered By: Gabriela Florian on 04-15-2023 Sodium [Moles/Vol] 140 mmol/L Normal 136-145 [facility] Comment on above: Performed By: #### G LULS #### Point of Care testing , Triglyceride [Mass/volume] i n Serum or PlasmaOrdered By: Gabriela Florian on 04-15-2023 Triglyceride [Mass/Vol] 154 mg/dL 0-149 [facility] Comment on above: TRIG ATP III CLASSIF ICATIONTRIG less than 150 mg/dL NormalTRIG 150-199 mg/dL Borderline highTRIG 200-500 mg/dL High TRIG greater than 500 mg/dL Very highStandard traceable to the Center for Disease Conrtrol and Prevention (CDC) test method. Urea nitrogen [Mass/volume] in Serum or PlasmaOrdered By: Gabriela Florian on 04-15-2023 Urea nitrogen [Mass/Vol] 33 mg/dL High 7-25 [facility] Comment on above: Performed By: #### G LULS #### Point of Care testing , Office Visit (Cardiology)on 10-16-2022 Follow-up visit Diagnoses/Problems Assessed 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of [place] coronary artery of [place] heart without angina pectoris (414.01) (I25.10) Hyperlipidemia (272.4) (E78.5) S/P PTCA (percutaneous transluminal coronary angioplasty) (V45.82) (Z98.61) 2017 RCA History of PR (myocardial infarction) (412) (I25.2) Essential hypertension (401.9) (I10) Stage 3a chronic kidney disease (585.3) (N18.31) Diabetes mellitus (250.00) (E11.9) Current some day smoker (305.1) (F17.200) 1 pack every 2 weeks Overweight with body mass index (BMI) of 27 to 27.9 in adult (278.02,V85.23) (E66.3,Z68.27) Orders 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of [place] coronary artery of [place] heart without angina pectoris Renew: Aspirin EC 81 MG Oral Tablet Delayed Release; TAKE 1 TABLET DAILY DIRECTED 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of [place] coronary artery of [place] heart without angina pectoris, Essential hypertension, History of PR (myocardial infarction), Hyperlipidemia, S/P PTCA (percutaneous transluminal coronary angioplasty) ALT - Alanine Aminotransferase, Serum; Status:Active - Retrospective Authorization; Requested for:[id number]; AST; Status:Active - Retrospective Authorization; Requested for:[id number]; Basic Metabolic Panel; Status:Active - Retrospective Authorization; Requested for:[id number]; Complete Blood Count; Status:Active - Retrospective Authorization; Requested for:[id number]; Lipid Panel; Status:Active - Retrospective Authorization; Requested for:[id number]; 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of [place] coronary artery of [place] heart without angina pectoris, Hyperlipidemia Renew: Atorvastatin [...] we can help. You may also call [phone] for free resources and assistance.; Status:Complete - [...] lumbar spinal surgery by Dr. Miller at [facility] with no complication he continues to wear [...] Screening.on 023 Adult depression screening assessment No [facility] [employer] [address] 250 DO Work Phone: Fall risk assessment a) No falls within the last year [facility] [employer] y 250 DO Work Phone: Tobacco use status CPHS b) No [facility] [employer] y 250 DO Work Phone: Creatinine and Glomerular fi ltration rate.predicted panel (S/P/Bld)Ordered By: Roberto Cullen on 10-06-2022 Creatinine [Mass/Vol] 1.57 mg/dL 0.64-1.27 [facility] Estimated glomerular filtrat ion rate (GFR) non- AmericanOrdered By: Roberto Cullen on 10-06-2022 GFR/1.73 sq M.predicted among non-blacks MDRD (S/P/Bld) [Vol rate/Area] 44 mL/Min [facility] Glucose Glucometer (BldC) [M ass/Vol]Ordered By: Clemente Miller on 10-06-2022 Glucose [Mass/Vol] 163 mg/dL [facility] Comment on above: Random Glucose Refer ence Range is dependent on time and content of last meal. Glucose of more than 200 mg/dL in a nonstressed, ambulatory subject supports the diagnosis of Diabetes Mellitus. No Panel InformationOrdered By: Roberto Cullen on 10-06-2022 Estimated GFR () 53 mL/Min [facility] Comment on above: GFR estimated refere nce range: According to KDOQI guidelines, <60 ml/min/1.73m2 is sufficient to diagnose a patient with chronic kidney disease. Pharmacy Creatinine Clearance (Chem 38.38 [facility] No Panel InformationOrdered By: Clemente Miller on 10-06-2022 Bedside Glucose Comment Glu2: cleaned meter [facility] Serum or plasma anion gap de terminationOrdered By: Roberto Cullen on 10-06-2022 Anion gap [Moles/Vol] 11.2 mmol/L 6.0-15.0 [facility] Serum or plasma calcium kirk urement (mass/volume)Ordered By: Roberto Cullen on 10-06-2022 Calcium [Mass/Vol] 8.5 mg/dL 8.2-10.2 [facility] Serum or plasma chloride tammy surement (moles/volume)Ordered By: Roberto Cullen on 10-06-2022 Chloride [Moles/Vol] 105 mmol/L 95-114 [facility] Serum or plasma glucose kirk urement (mass/volume)Ordered By: Roberto Cullen on 10-06-2022 Glucose [Mass/Vol] 114 mg/dL 70-100 [facility] Comment on above: ADA recommended refe rence rangeRandom Glucose Reference Range is dependent on time and content of last meal. Glucose of more than 200 mg/dL in a nonstressed, ambulatory subject supports the diagnosis of Diabetes Mellitus. Serum or plasma potassium me asurement (moles/volume)Ordered By: Roberto Cullen on 10-06-2022 Potassium [Moles/Vol] 4.0 mmol/L 3.5-5.1 [facility] Serum or plasma sodium measu rement (moles/volume)Ordered By: Roberto Cullen on 10-06-2022 Sodium [Moles/Vol] 135 mmol/L 136-146 [facility] Serum or plasma total carbon dioxide measurement (moles/volume)Ordered By: Roberto Cullen on 10-06-2022 CO2 [Moles/Vol] 22.8 mmol/L 22.0-30.0 [facility] Serum or plasma urea nitroge n measurement (mass/volume)Ordered By: Roberto Cullen on 10-06-2022 Urea nitrogen [Mass/Vol] 49 mg/dL 06-28 [facility] Basophils Auto (Bld) [#/Vol] Ordered By: Kali Isaac on 10-04-2022 Basophils (Bld) [#/Vol] 0.0 10*3/uL 0.0-0.2 [facility] Basophils/100 WBC Auto (Bld) Ordered By: Kali Isaac on 10-04-2022 Basophils/100 WBC (Bld) 0.2 % . [facility] Eosinophils Auto (Bld) [#/Vo l]Ordered By: Kali Isaac on 10-04-2022 Eosinophils (Bld) [#/Vol] 0.0 10*3/uL 0.0-0.45 [facility] Eosinophils/100 WBC Auto (Bl d)Ordered By: Kali Isaac on 10-04-2022 Eosinophils/100 WBC (Bld) 0.0 % . [facility] Erythrocyte distribution wid th Auto (RBC) [Ratio]Ordered By: Kali Isaac on 10-04-2022 Erythrocyte distribution width (RBC) [Ratio] 13.3 % 12.0-14.8 [facility] Hematocrit Auto (Bld) [Volum e fraction]Ordered By: Kali Isaac on 10-04-2022 Hematocrit (Bld) [Volume fraction] 34.3 % 38.8-50.0 [facility] Hemoglobin [Mass/volume] in BloodOrdered By: Kali Isaac on 10-04-2022 Hemoglobin (Bld) [Mass/Vol] 11.3 g/dL 13.0-17.0 [facility] Laboratory - Chemistry and C hemistry - challengeOrdered By: Kali Isaac on 10-04-2022 Magnesium [Mass/Vol] 2.2 mg/dL 1.6-2.6 [facility] Leukocytes [#/volume] correc ruben for nucleated erythrocytes in Blood by Automated counOrdered By: Kali Isaac on 10-04-2022 WBC corrected for nucl RBC Auto (Bld) [#/Vol] 16.0 10*3/uL 4.1-10.5 [facility] Lymphocytes Auto (Bld) [#/Vo l]Ordered By: Kali Isaac on 10-04-2022 Lymphocytes (Bld) [#/Vol] 1.0 10*3/uL 1.00-4.8 [facility] Lymphocytes/100 WBC Auto (Bl d)Ordered By: Kali Isaac on 10-04-2022 Lymphocytes/100 WBC (Bld) 6.1 % . [facility] MCH Auto (RBC) [Entitic mass ]Ordered By: Kali Isaac on 10-04-2022 MCH (RBC) [Entitic mass] 28.1 pg 27.5-35.2 [facility] MCHC Auto (RBC) [Mass/Vol]Or dered By: Kali Isaac on 10-04-2022 MCHC (RBC) [Mass/Vol] 33.0 g/dL 32.5-35.6 [facility] MCV Auto (RBC) [Entitic vol] Ordered By: Kali Isaac on 10-04-2022 MCV (RBC) [Entitic vol] 85.3 fL 83.5-101 [facility] Monocytes Auto (Bld) [#/Vol] Ordered By: Kali Isaac on 10-04-2022 Monocytes (Bld) [#/Vol] 1.1 10*3/uL 0.0-0.8 [facility] Monocytes/100 WBC Auto (Bld) Ordered By: Kali Isaac on 10-04-2022 Monocytes/100 WBC (Bld) 6.6 % . [facility] Neutrophils Auto (Bld) [#/Vo l]Ordered By: Kali Isaac on 10-04-2022 Neutrophils (Bld) [#/Vol] 14.0 10*3/uL 1.8-7.7 [facility] Neutrophils/100 WBC Auto (Bl d)Ordered By: Kali Isaac on 10-04-2022 Neutrophils/100 WBC (Bld) 87.1 % . [facility] Nucleated erythrocytes [Pres ence] in Blood by Automated countOrdered By: Kali Isaac on 10-04-2022 Nucleated RBC Auto Ql (Bld) 0.0 /100{WBC} 0-0.5 [facility] Platelet mean volume Auto (B ld) [Entitic vol]Ordered By: Kali Isaac on 10-04-2022 Platelet mean volume (Bld) [Entitic vol] 8.3 fL 6.6-10.1 [facility] Platelets Auto (Bld) [#/Vol] Ordered By: Kali Isaac on 10-04-2022 Platelets (Bld) [#/Vol] 159 10*3/uL 150-450 [facility] RBC Auto (Bld) [#/Vol]Ordere d By: Kali Isaac on 10-04-2022 RBC (Bld) [#/Vol] 4.03 10*6/uL 3.90-5.60 [facility] WBC Auto (Bld) [#/Vol]Ordere d By: Kali Isaac on 10-04-2022 WBC (Bld) [#/Vol] 16.0 10*3/uL 4.1-10.5 [facility] Glucose mean value [Mass/vol ume] in Blood Estimated from glycated hemoglobinOrdered By: Kali Isaac on 10-03-2022 Average glucose Estimated from glycated hemoglobin (Bld) [Mass/Vol] 154 mg/dL [facility] Hemoglobin A1c percentageOrd ered By: Kali Isaac on 10-03-2022 HbA1c (Bld) [Mass fraction] 7.0 % 4.3-5.6 [facility] Comment on above: Increased risk for d iabetes: 5.7 - 6.4diabetes: >6.4glycemic control for adults with diabetes: <7.0 COVID-19 SOFIAOrdered By: Ag Johnson on 10-01-2022 SARS-CoV+SARS-CoV-2 (COVID-19) Ag IA.rapid Ql (Resp) Negative Negative [facility] Comment on above: This is a duplicate Yelena SARS Antigen (SALIMA) result to be used for statistical tracking purpose only. No Panel InformationOrdered By: Clemente Miller on 10-01-2022 SARS Antigen (LFIA) [facility] Basophils Auto (Bld) [#/Vol] Ordered By: Clemente Miller on 09-18-2022 Basophils (Bld) [#/Vol] 0.0 10*3/uL 0.0-0.2 [facility] Basophils/100 WBC Auto (Bld) Ordered By: Clemente Miller on 09-18-2022 Basophils/100 WBC (Bld) 0.3 % . [facility] Creatinine and Glomerular fi ltration rate.predicted panel (S/P/Bld)Ordered By: Clemente Miller on 09-18-2022 Creatinine [Mass/Vol] 1.41 mg/dL 0.64-1.27 [facility] Eosinophils Auto (Bld) [#/Vo l]Ordered By: Clemente Miller on 09-18-2022 Eosinophils (Bld) [#/Vol] 0.2 10*3/uL 0.0-0.45 [facility] Eosinophils/100 WBC Auto (Bl d)Ordered By: Clemente Miller on 09-18-2022 Eosinophils/100 WBC (Bld) 3.0 % . [facility] Erythrocyte distribution wid th Auto (RBC) [Ratio]Ordered By: Clemente Miller on 09-18-2022 Erythrocyte distribution width (RBC) [Ratio] 13.5 % 12.0-14.8 [facility] Estimated glomerular filtrat ion rate (GFR) non- AmericanOrdered By: Clemente Miller on 09-18-2022 GFR/1.73 sq M.predicted among non-blacks MDRD (S/P/Bld) [Vol rate/Area] 49 mL/Min [facility] Hematocrit Auto (Bld) [Volum e fraction]Ordered By: Clemente Miller on 09-18-2022 Hematocrit (Bld) [Volume fraction] 40.4 % 38.8-50.0 [facility] Hemoglobin [Mass/volume] in BloodOrdered By: Clemente Miller on 09-18-2022 Hemoglobin (Bld) [Mass/Vol] 13.2 g/dL 13.0-17.0 [facility] Leukocytes [#/volume] correc ruben for nucleated erythrocytes in Blood by Automated counOrdered By: Clemente Miller on 09-18-2022 WBC corrected for nucl RBC Auto (Bld) [#/Vol] 7.4 10*3/uL 4.1-10.5 [facility] Lymphocytes Auto (Bld) [#/Vo l]Ordered By: Clemente Miller on 09-18-2022 Lymphocytes (Bld) [#/Vol] 1.9 10*3/uL 1.00-4.8 [facility] Lymphocytes/100 WBC Auto (Bl d)Ordered By: Clemente Miller on 09-18-2022 Lymphocytes/100 WBC (Bld) 26.3 % . [facility] MCH Auto (RBC) [Entitic mass ]Ordered By: Clemente Miller on 09-18-2022 MCH (RBC) [Entitic mass] 28.0 pg 27.5-35.2 [facility] MCHC Auto (RBC) [Mass/Vol]Or dered By: Clemente Miller on 09-18-2022 MCHC (RBC) [Mass/Vol] 32.8 g/dL 32.5-35.6 [facility] MCV Auto (RBC) [Entitic vol] Ordered By: Clemente Miller on 09-18-2022 MCV (RBC) [Entitic vol] 85.4 fL 83.5-101 [facility] Monocytes Auto (Bld) [#/Vol] Ordered By: Clemente Miller on 09-18-2022 Monocytes (Bld) [#/Vol] 0.8 10*3/uL 0.0-0.8 [facility] Monocytes/100 WBC Auto (Bld) Ordered By: Clemente Miller on 09-18-2022 Monocytes/100 WBC (Bld) 10.7 % . [facility] Neutrophils Auto (Bld) [#/Vo l]Ordered By: Clemente Miller on 09-18-2022 Neutrophils (Bld) [#/Vol] 4.4 10*3/uL 1.8-7.7 [facility] Neutrophils/100 WBC Auto (Bl d)Ordered By: Clemente Miller on 09-18-2022 Neutrophils/100 WBC (Bld) 59.7 % . [facility] No Panel InformationOrdered By: Clemente Miller on 09-18-2022 Estimated GFR () 60 mL/Min [facility] Comment on above: GFR estimated refere nce range: According to KDOQI guidelines, <60 ml/min/1.73m2 is sufficient to diagnose a patient with chronic kidney disease. Pharmacy Creatinine Clearance (Chem N/A [facility] Nucleated erythrocytes [Pres ence] in Blood by Automated countOrdered By: Clemente Miller on 09-18-2022 Nucleated RBC Auto Ql (Bld) 0.1 /100{WBC} 0-0.5 [facility] Platelet mean volume Auto (B ld) [Entitic vol]Ordered By: Clemente Miller on 09-18-2022 Platelet mean volume (Bld) [Entitic vol] 8.5 fL 6.6-10.1 [facility] Platelets Auto (Bld) [#/Vol] Ordered By: Clemente Miller on 09-18-2022 Platelets (Bld) [#/Vol] 184 10*3/uL 150-450 [facility] RBC Auto (Bld) [#/Vol]Ordere d By: Clemente Miller on 09-18-2022 RBC (Bld) [#/Vol] 4.73 10*6/uL 3.90-5.60 [facility] Serum or plasma anion gap de terminationOrdered By: Clemente Miller on 09-18-2022 Anion gap [Moles/Vol] 17.5 mmol/L 6.0-15.0 [facility] Serum or plasma calcium kirk urement (mass/volume)Ordered By: Clemente Miller on 09-18-2022 Calcium [Mass/Vol] 9.2 mg/dL 8.2-10.2 [facility] Serum or plasma chloride tammy surement (moles/volume)Ordered By: Clemente Miller on 09-18-2022 Chloride [Moles/Vol] 102 mmol/L 95-114 [facility] Serum or plasma glucose kirk urement (mass/volume)Ordered By: Clemente Miller on 09-18-2022 Glucose [Mass/Vol] 130 mg/dL 70-100 [facility] Comment on above: ADA recommended refe rence rangeRandom Glucose Reference Range is dependent on time and content of last meal. Glucose of more than 200 mg/dL in a nonstressed, ambulatory subject supports the diagnosis of Diabetes Mellitus. Serum or plasma potassium me asurement (moles/volume)Ordered By: Clemente Miller on 09-18-2022 Potassium [Moles/Vol] 4.6 mmol/L 3.5-5.1 [facility] Serum or plasma sodium measu rement (moles/volume)Ordered By: Clemente Miller on 09-18-2022 Sodium [Moles/Vol] 139 mmol/L 136-146 [facility] Serum or plasma total carbon dioxide measurement (moles/volume)Ordered By: Clemente Miller on 09-18-2022 CO2 [Moles/Vol] 24.1 mmol/L 22.0-30.0 [facility] Serum or plasma urea nitroge n measurement (mass/volume)Ordered By: Clemente Miller on 09-18-2022 Urea nitrogen [Mass/Vol] 17 mg/dL 9-23 [facility] WBC Auto (Bld) [#/Vol]Ordere d By: Clemente Miller on 09-18-2022 WBC (Bld) [#/Vol] 7.4 10*3/uL 4.1-10.5 [facility] A1C HEMOGLOBINon 08-19-2022 HbA1c (Bld) [Mass fraction] 6.5 % [employer] Other HbA1c (Bld) [Mass fraction]o n 08-19-2022 A1C HEMOGLOBIN [employer] Other Basophils Auto (Bld) [#/Vol] Ordered By: Lolita Adorno on 05-15-2022 Basophils (Bld) [#/Vol] 0.0 10*3/uL 0.0-0.2 [facility] Basophils/100 WBC Auto (Bld) Ordered By: Lolita Adorno on 05-15-2022 Basophils/100 WBC (Bld) 0.6 % . [facility] Blood hemoglobin measurement (mass/volume)Ordered By: Lolita Adorno on 05-15-2022 Hemoglobin (Bld) [Mass/Vol] 13.3 g/dL 13.0-17.0 [facility] Blood leukocytes automated c ount (number/volume)Ordered By: Lolita Adorno on 05-15-2022 WBC (Bld) [#/Vol] 8.3 10*3/uL 4.5-11.0 [facility] Body fluid albumin measureme nt (mass/volume)Ordered By: Lolita Adorno on 05-15-2022 Albumin (Body fld) [Mass/Vol] 4.1 g/dL 3.2-5.5 [facility] Cholesterol [Mass/volume] in Serum or PlasmaOrdered By: Lolita Adorno on 05-15-2022 Cholesterol [Mass/Vol] 102 mg/dL 140-200 [facility] Comment on above: Chol less than 200 m g/dl low riskChol 201-239 mg/dl borderline riskChol 240 mg/dl and greater high risk Cholesterol in LDL Calc [Mas s/Vol]Ordered By: Lolita Adorno on 05-15-2022 Cholesterol in LDL [Mass/Vol] 45 mg/dL 0-100 [facility] Comment on above: LDL ATP III CLASSIFI CATIONLDL less than 100 mg/dL OptimalLDL 100-129 mg/dL Near or above optimalLDL 130-159 mg/dL Borderline highLDL 160-189 mg/dL HighLDL greater than 189 mg/dL Very high Cholesterol in VLDL Calc [Ma ss/Vol]Ordered By: Lolita Adorno on 05-15-2022 Cholesterol in VLDL [Mass/Vol] 24 mg/dL [facility] Creatinine and Glomerular fi ltration rate.predicted panel (S/P/Bld)Ordered By: Lolita Adorno on 05-15-2022 Creatinine [Mass/Vol] 1.46 mg/dL 0.64-1.27 [facility] Eosinophils Auto (Bld) [#/Vo l]Ordered By: Lolita Adorno on 05-15-2022 Eosinophils (Bld) [#/Vol] 0.3 10*3/uL 0.0-0.45 [facility] Eosinophils/100 WBC Auto (Bl d)Ordered By: Lolita Adorno on 05-15-2022 Eosinophils/100 WBC (Bld) 3.5 % . [facility] Erythrocyte distribution wid th Auto (RBC) [Ratio]Ordered By: Lolita Adorno on 05-15-2022 Erythrocyte distribution width (RBC) [Ratio] 13.4 % 12.0-14.8 [facility] Estimated glomerular filtrat ion rate (GFR) non- AmericanOrdered By: Lolita Adorno on 05-15-2022 GFR/1.73 sq M.predicted among non-blacks MDRD (S/P/Bld) [Vol rate/Area] 47 mL/Min [facility] Globulin Calc (S) [Mass/Vol] Ordered By: Lolita Adorno on 05-15-2022 Globulin (S) [Mass/Vol] 2.8 g/dL [facility] Hematocrit Auto (Bld) [Volum e fraction]Ordered By: Lolita Adorno on 05-15-2022 Hematocrit (Bld) [Volume fraction] 40.9 % 38.8-50.0 [facility] Laboratory - Hematology and Cell countsOrdered By: Lolita Adorno on 05-15-2022 Nucleated RBC/100 WBC (Bld) [Ratio] 0.2 % 0-0.5 [facility] Lymphocytes Auto (Bld) [#/Vo l]Ordered By: Lolita Adorno on 05-15-2022 Lymphocytes (Bld) [#/Vol] 1.5 10*3/uL 1.00-4.8 [facility] Lymphocytes/100 WBC Auto (Bl d)Ordered By: Lolita Adorno on 05-15-2022 Lymphocytes/100 WBC (Bld) 18.2 % . [facility] MCH Auto (RBC) [Entitic mass ]Ordered By: Lolita Adorno on 05-15-2022 MCH (RBC) [Entitic mass] 28.3 pg 27.5-35.2 [facility] MCHC Auto (RBC) [Mass/Vol]Or dered By: Lolita Adorno on 05-15-2022 MCHC (RBC) [Mass/Vol] 32.6 g/dL 32.5-35.6 [facility] MCV Auto (RBC) [Entitic vol] Ordered By: Lolita Adorno on 05-15-2022 MCV (RBC) [Entitic vol] 86.9 fL 83.5-101 [facility] Monocytes Auto (Bld) [#/Vol] Ordered By: Lolita Adorno on 05-15-2022 Monocytes (Bld) [#/Vol] 0.9 10*3/uL 0.0-0.8 [facility] Monocytes/100 WBC Auto (Bld) Ordered By: Lolita Adorno on 05-15-2022 Monocytes/100 WBC (Bld) 10.5 % . [facility] Neutrophils Auto (Bld) [#/Vo l]Ordered By: Lolita Adorno on 05-15-2022 Neutrophils (Bld) [#/Vol] 5.6 10*3/uL 1.8-7.7 [facility] Neutrophils/100 WBC Auto (Bl d)Ordered By: Lolita Adorno on 05-15-2022 Neutrophils/100 WBC (Bld) 67.2 % . [facility] No Panel InformationOrdered By: Lolita Adorno on 05-15-2022 Estimated GFR () 57 mL/Min [facility] Comment on above: GFR estimated refere nce range: According to KDOQI guidelines, <60 ml/min/1.73m2 is sufficient to diagnose a patient with chronic kidney disease. Pharmacy Creatinine Clearance (Chem N/A [facility] Prostate Specific Antigen Screen 1.710 ng/mL 0.000-4.00 0 [facility] Platelet mean volume Auto (B ld) [Entitic vol]Ordered By: Lolita Adorno on 05-15-2022 Platelet mean volume (Bld) [Entitic vol] 8.8 fL 6.6-10.1 [facility] Platelets Auto (Bld) [#/Vol] Ordered By: Lolita Adorno on 08-10-2022 Platelets (Bld) [#/Vol] 221 10*3/uL 150-450 [facility] Protein [Mass/volume] in Ser um or PlasmaOrdered By: Loilta Adorno on 05-15-2022 Protein [Mass/Vol] 6.9 g/dL 6.1-7.9 [facility] RBC Auto (Bld) [#/Vol]Ordere d By: Lolita Adorno on 05-15-2022 RBC (Bld) [#/Vol] 4.71 10*6/uL 3.90-5.60 [facility] Serum or plasma alanine lujan otransferase measurement without P-5'-P (enzymatic activiOrdered By: Lolita Adorno on 05-15-2022 ALT No additional P-5'-P [Catalytic activity/Vol] 21 U/L 10-60 [facility] Serum or plasma albumin/glob ulin mass ratioOrdered By: Lolita Adorno on 05-15-2022 Albumin/Globulin [Mass ratio] 1.5 {ratio} [facility] Serum or plasma alkaline nata sphatase measurement (enzymatic activity/volume)Ordered By: Lolita Adorno on 05-15-2022 ALP [Catalytic activity/Vol] 86 U/L 32-92 [facility] Serum or plasma aspartate am inotransferase measurement (enzymatic activity/volume)Ordered By: Lolita Adorno on 05-15-2022 AST [Catalytic activity/Vol] 20 U/L 10-42 [facility] Serum or plasma calcium kirk urement (mass/volume)Ordered By: Lolita Adorno on 05-15-2022 Calcium [Mass/Vol] 9.4 mg/dL 8.2-10.2 [facility] Serum or plasma chloride tammy surement (moles/volume)Ordered By: Lolita Adorno on 05-15-2022 Chloride [Moles/Vol] 103 mmol/L 95-114 [facility] Serum or plasma glucose kirk urement (mass/volume)Ordered By: Lolita Adorno on 05-15-2022 Glucose [Mass/Vol] 131 mg/dL 70-100 [facility] Comment on above: ADA recommended refe rence rangeRandom Glucose Reference Range is dependent on time and content of last meal. Glucose of more than 200 mg/dL in a nonstressed, ambulatory subject supports the diagnosis of Diabetes Mellitus. Serum or plasma high density lipoprotein (HDL) cholesterol measurementOrdered By: Lolita Adorno on 05-15-2022 Cholesterol in HDL [Mass/Vol] 33 mg/dL 29-71 [facility] Comment on above: HDL CHOL ATP-III CLA SSIFICATION Cardiovascular RiskHDL > or equal to 60 mg/dL LOWHDL < 40 mg/dL HIGH Serum or plasma potassium me asurement (moles/volume)Ordered By: Lolita Adorno on 05-15-2022 Potassium [Moles/Vol] 4.4 mmol/L 3.5-5.1 [facility] Serum or plasma sodium measu rement (moles/volume)Ordered By: Lolita Adorno on 05-15-2022 Sodium [Moles/Vol] 139 mmol/L 136-146 [facility] Serum or plasma total biliru bin measurement (mass/volume)Ordered By: Lolita Adorno on 05-15-2022 Bilirubin [Mass/Vol] 0.4 mg/dL 0.3-1.2 [facility] Serum or plasma total carbon dioxide measurement (moles/volume)Ordered By: Lolita Adorno on 05-15-2022 CO2 [Moles/Vol] 25.4 mmol/L 22.0-30.0 [facility] Serum or plasma total choles terol/high density lipoprotein (HDL) cholesterol mass ratOrdered By: Lolita Adorno on 05-15-2022 Cholesterol.total/Flavia sterol in HDL [Mass ratio] 3.1 {ratio} <5.0 [facility] Serum or plasma urea nitroge n measurement (mass/volume)Ordered By: Lolita Adorno on 05-15-2022 Urea nitrogen [Mass/Vol] 23 mg/dL 9-23 [facility] TSH DL <= 0.005 mIU/L QnOrde red By: Lolita Adorno on 05-15-2022 TSH Qn 2.88 m[IU]/L 0.45-5.33 [facility] Triglyceride [Mass/volume] i n Serum or PlasmaOrdered By: Lolita Adorno on 05-15-2022 Triglyceride [Mass/Vol] 122 mg/dL 35-149 [facility] Comment on above: TRIG ATP III CLASSIF ICATIONTRIG less than 150 mg/dL NormalTRIG 150-199 mg/dL Borderline highTRIG 200-500 mg/dL High TRIG greater than 500 mg/dL Very highStandard traceable to the Center for Disease Conrtrol and Prevention (CDC) test method. A1C HEMOGLOBINon 05-14-2022 HbA1c (Bld) [Mass fraction] 6.5 % [employer] Other HbA1c (Bld) [Mass fraction]o n 05-14-2022 A1C HEMOGLOBIN [employer] Other Tobacco Screening.on 022 Adult depression screening assessment No [facility] [employer] 250 DO Work Phone: Fall risk assessment a) No falls within the last year [facility] [employer] 250 DO Work Phone: Tobacco use status [facility] a) Yes [facility] [employer] 250 DO Work Phone: Tobacco Screening. Yes [facility] [employer] 250 DO Work Phone: A1C HEMOGLOBINon 02-11-2022 HbA1c (Bld) [Mass fraction] 6.3 % [facility] Other HbA1c (Bld) [Mass fraction]o n 02-11-2022 A1C HEMOGLOBIN [facility] Other A1C HEMOGLOBINon 11-13-2021 HbA1c (Bld) [Mass fraction] 6.8 % [facility] Other HbA1c (Bld) [Mass fraction]o n 11-13-2021 A1C HEMOGLOBIN [facility] Other Tobacco Screening.on 021 Fall risk assessment b) One or more fall s in the last year [facility] [employer] 250 DO Work Phone: Tobacco use status [facility] a) Yes [facility] [employer] DO Work Phone: Tobacco Screening. Yes [facility] [facility] 250 DO Work Phone: NO CARDIAC STRESS/REST ([place] CARDIAL PERFUSION/MIBI)on 09-25-2020 [facility] CARDIAC STRESS/REST (MYOCARDIAL PERFUSION/MIBI) Patient Name: DAVE LUGO STUDY: MYOCARDIAL PERFUSION STRESS TEST WITH LEXISCAN Performing facility: [facility], \[address], [address], \[place] [address] [facility] Provider: Jesse Morrissey MD PCP: Dr. Kristopher Dumont Supervising provider: Adalberto Tom MD, FACC INDICATION: CAD; Chest Pain; Diabetes Essential HTN Hyperlipidemia HISTORY: Gender: M; Age: 70 y/o ; Height: 170.18 cm; Weight: 82.8299649 kg. High Cholesterol; CAD; Diabetes; Previous PR; HTN; Chest Pain; Quit smoking 3 years ago. PTCA on 2016. COMPARISON: Previous nuclear testing completed [id number] [facility] at [facility]. ACCESSION NUMBER(S): [id number]; [id number]; [id number] ORDERING CLINICIAN: JESSE MORRISSEY TECHNIQUE: ONE DAY [...] changes. Electronically signed by: GABRIELA FLORIAN MD [facility] CARDIAC STRESS/REST INJE CTIONon 09-25-2020 [facility] CARDIAC STRESS/REST INJECTION Patient Name: DAVE LUGO STUDY: MYOCARDIAL PERFUSION STRESS TEST WITH LEXISCAN Performing facility: [facility], \[address], [address], \[address] Provider: Jesse Morrissey MD PCP: Dr. Kristopher Dumont Supervising provider: Adalberto Tom MD, [facility] INDICATION: CAD; Chest Pain; Diabetes Essential HTN Hyperlipidemia HISTORY: Gender: M; Age: 70 y/o ; Height: 170.18 cm; Weight: 82.1045703 kg. High Cholesterol; CAD; Diabetes; Previous PR; HTN; Chest Pain; Quit smoking 3 years ago. PTCA on 2017. COMPARISON: Previous nuclear testing completed [id number] [facility] at [facility]. ACCESSION NUMBER(S): [id number]; [id number]; [id number] ORDERING CLINICIAN: JESSE MORRISSEY TECHNIQUE: ONE DAY [...] changes. Electronically signed by: GABRIELA FLORIAN MD [facility] PART 2 STRESS OR REST (N O CHARGE)on 09-25-2020 [facility] PART 2 STRESS OR REST (NO CHARGE) Patient Name: DAVE LUGO STUDY: MYOCARDIAL PERFUSION STRESS TEST WITH LEXISCAN Performing facility: [facility], \[address], [address], \[place] [address] [facility] Provider: Jesse Morrissey MD PCP: Dr. Kristopher Dumont Supervising provider: Adalberto Tom MD, [facility] INDICATION: CAD; Chest Pain; Diabetes Essential HTN Hyperlipidemia HISTORY: Gender: M; Age: 70 y/o ; Height: 170.18 cm; Weight: 82.8549140 kg. High Cholesterol; CAD; Diabetes; Previous PR; HTN; Chest Pain; Quit smoking 3 years ago. PTCA on 2017. COMPARISON: Previous nuclear testing completed [id number] [facility] at [facility]. ACCESSION NUMBER(S): [id number]; [id number]; [id number] ORDERING CLINICIAN: JESSE MORRISSEY TECHNIQUE: ONE DAY [...] Electronically signed by: GABRIELA FLORIAN MD Normal [facility] Vital Signs Date Time Vital Sign Value Performing Clinician Facility 04-26-2024 13:46-0400 Body height 167.64 cm DO Lolita Adorno Work Phone: [facility] 04-26-2024 13:46-0400 Body mass index (BMI) [Ratio] 27.4 kg/m2 DO Lolita Schwerer Work Phone: [facility] 04-26-2024 13:46-0400 Body temperature 97.2 [degF] DO Lolita Schwerer Work Phone: [facility] 04-26-2024 13:46-0400 Body weight 77.11 kg DO Lolita Schwerer Work Phone: [facility] 04-26-2024 13:46-0400 Diastolic blood pressure 88 mm[Hg] DO Lolita Schwerer Work Phone: [facility] 04-26-2024 13:46-0400 Heart rate 74 /min DO Lolita Schwerer Work Phone: [facility] 04-26-2024 13:46-0400 Respiratory rate 18 /min DO Lolita Schwerer Work Phone: [facility] 04-26-2024 13:46-0400 SaO2% (BldA) [Mass fraction] 97 % DO Lolita Schwerer Work Phone: [facility] 04-26-2024 13:46-0400 Systolic blood pressure 204 mm[Hg] DO Lolita Schwerer Work Phone: [facility] 03-22-2024 10:54-0400 Body height 167.64 cm [facility] 03-22-2024 10:54-0400 Body mass index (BMI) [Ratio] 26.9 kg/m2 [facility] 03-22-2024 10:54-0400 Body weight 75.8 kg [facility] 03-22-2024 10:54-0400 Diastolic blood pressure 72 mm[Hg] [facility] 03-22-2024 10:54-0400 Heart rate 76 /min [facility] 03-22-2024 10:54-0400 Respiratory rate 18 /min [facility] 03-22-2024 10:54-0400 SaO2% (BldA) [Mass fraction] 95 % [facility] 03-22-2024 10:54-0400 Systolic blood pressure 138 mm[Hg] [facility] 12-26-2023 10:13-0400 Body weight 76.2 kg DO Lolita Schwerer Work Phone: [facility] 12-26-2023 10:13-0400 Diastolic blood pressure 86 mm[Hg] DO Lolita Schwerer Work Phone: [facility] 12-26-2023 10:13-0400 Heart rate 69 /min DO Lolita Schwerer Work Phone: [facility] 12-26-2023 10:13-0400 Systolic blood pressure 168 mm[Hg] DO Lolita Schwerer Work Phone: [facility] 12-25-2023 10:46-0400 Body height 167.64 cm DO Lolita Schwerer Work Phone: [facility] 12-25-2023 10:46-0400 Body mass index (BMI) [Ratio] 27.1 kg/m2 DO Lolita Schwerer Work Phone: [facility] 12-25-2023 10:46-0400 Body temperature 98 [degF] DO Lolita Schwerer Work Phone: [facility] 12-25-2023 10:46-0400 Body weight 76.37 kg DO Lolita Schwerer Work Phone: [facility] 12-25-2023 10:46-0400 Diastolic blood pressure 76 mm[Hg] DO Lolita Schwerer Work Phone: [facility] 12-25-2023 10:46-0400 Heart rate 70 /min DO Lolita Schwerer Work Phone: [facility] 12-25-2023 10:46-0400 SaO2% (BldA) [Mass fraction] 99 % DO Lolita Schwerer Work Phone: [facility] 12-25-2023 10:46-0400 Systolic blood pressure 132 mm[Hg] DO Lolita Schwerer Work Phone: [facility] 10-16-2023 09:03-0500 Body height 165.1 cm Gabriela Florian MD Work Phone: [facility] 10-16-2023 09:03-0500 Body mass index (BMI) [Ratio] 27.12 kg/m2 Gabriela Florian MD Work Phone: [facility] 10-16-2023 09:03-0500 Body weight 73.94 kg Gabriela Florian MD Work Phone: [facility] 10-16-2023 09:03-0500 Diastolic blood pressure 60 mm[Hg] Gabriela Florian MD Work Phone: [facility] 10-16-2023 09:03-0500 Heart rate 62 /min Gabriela Florian MD Work Phone: [facility] 10-16-2023 09:03-0500 Systolic blood pressure 102 mm[Hg] Gabriela Florian MD Work Phone: [facility] 09-25-2023 09:00-0500 Body height 167.64 cm Beth Lowe Other [employer] Other 09-25-2023 09:00-0500 Body mass index (BMI) [Ratio] 26.95 kg/m2 Beth Lowe Other [employer] Other 09-25-2023 09:00-0500 Body weight 75.75 kg Beth Lowe Other [employer] Other 09-23-2023 10:45-0500 Body height 167.64 cm Lolita Schwerer Other [employer] Other 09-23-2023 10:45-0500 Body mass index (BMI) [Ratio] 26.97 kg/m2 Lolita Schwerer Other [employer] Other 09-23-2023 10:45-0500 Body temperature 98.1 [degF] Lolita Schwerer Other [employer] Other 09-23-2023 10:45-0500 Body weight 75.8 kg Lolita Schwerer Other [employer] Other 09-23-2023 10:45-0500 Diastolic blood pressure 88 mm[Hg] Lolita Schwerer Other [employer] Other 09-23-2023 10:45-0500 SaO2% (BldA) [Mass fraction] 99 % Lolita Schwerer Other [employer] Other 09-23-2023 10:45-0500 Systolic blood pressure 158 mm[Hg] Lolita Schwerer Other [employer] Other 09-18-2023 09:15-0500 Body height 167.64 cm Lyudmila Christopher Other [employer] Other 09-11-2023 11:37-0500 Diastolic blood pressure 58 mm[Hg] DO Lolita Schwerer Work Phone: [facility] 09-11-2023 11:37-0500 Heart rate 74 /min DO Lolita Schwerer Work Phone: [facility] 09-11-2023 11:37-0500 Respiratory rate 18 /min DO Lolita Schwerer Work Phone: [facility] 09-11-2023 11:37-0500 SaO2% (BldA) [Mass fraction] 95 % DO Lolita Schwerer Work Phone: [facility] 09-11-2023 11:37-0500 Systolic blood pressure 128 mm[Hg] DO Lolita Schwerer Work Phone: [facility] 09-11-2023 08:00-0500 Body temperature 98.1 [degF] DO Lolita Schwerer Work Phone: [facility] 09-11-2023 06:00-0500 Body weight 74.5 kg DO Lolita Schwerer Work Phone: [facility] 09-09-2023 14:30-0500 Body height 167.64 cm DO Lolita Schwerer Work Phone: [facility] 08-21-2023 09:15-0500 Body height 167.64 cm Lyudmila White Other [employer] Other 08-21-2023 09:15-0500 Body mass index (BMI) [Ratio] 26.63 kg/m2 Lyudmila White Other [employer] Other 08-21-2023 09:15-0500 Body weight 74.84 kg Lyudmila White Other [employer] Other 07-31-2023 11:15-0400 Body height 167.64 cm Prieto Santo Other [employer] Other 07-24-2023 11:00-0400 Body height 167.64 cm Prieto Santo Other [facility] Other 07-22-2023 13:39-0400 Body height 165.1 cm DO Lolita Schwerer Work Phone: [facility] 07-22-2023 13:39-0400 Body temperature 97.7 [degF] DO Lolita Schwerer Work Phone: [facility] 07-22-2023 13:39-0400 Body weight 74.84 kg DO Lolita Schwerer Work Phone: [facility] 07-22-2023 13:39-0400 Diastolic blood pressure 79 mm[Hg] DO Lolita Schwerer Work Phone: [facility] 07-22-2023 13:39-0400 Heart rate 72 /min DO Lolita Schwerer Work Phone: [facility] 07-22-2023 13:39-0400 Respiratory rate 18 /min DO Lolita Schwerer Work Phone: [facility] 07-22-2023 13:39-0400 SaO2% (BldA) [Mass fraction] 96 % DO Lolita Schwerer Work Phone: [facility] 07-22-2023 13:39-0400 Systolic blood pressure 155 mm[Hg] DO Lolita Schwerer Work Phone: [facility] 06-18-2023 09:30-0400 Body height 167.64 cm Beth Lowe Other [employer] Other 06-18-2023 09:30-0400 Body mass index (BMI) [Ratio] 26.63 kg/m2 Beth Lowe Other [employer] Other 06-18-2023 09:30-0400 Body weight 74.84 kg Beth Lowe Other [employer] Other 06-02-2023 13:45-0400 Body height 167.64 cm Lolita Schwerer Other [employer] Other 06-02-2023 13:45-0400 Body mass index (BMI) [Ratio] 26.47 kg/m2 Lolita Schwerer Other [employer] Other 06-02-2023 13:45-0400 Body weight 74.39 kg Lolita Schwerer Other [employer] Other 06-02-2023 13:45-0400 Diastolic blood pressure 72 mm[Hg] Lolita Schwerer Other [employer] Other 06-02-2023 13:45-0400 Respiratory rate 18 /min Lolita Schwerer Other [employer] Other 06-02-2023 13:45-0400 SaO2% (BldA) [Mass fraction] 96 % Lolita Schwerer Other [employer] Other 06-02-2023 13:45-0400 Systolic blood pressure 142 mm[Hg] Lolita Schwerer Other [employer] Other 05-06-2023 10:40-0400 Body height 167.64 cm [employer] Other [employer] Other 05-06-2023 10:40-0400 Body mass index (BMI) [Ratio] 26.63 kg/m2 [employer] Other [employer] Other 05-06-2023 10:40-0400 Body weight 74.84 kg Beth Lowe Other [facility] Other 05-06-2023 10:40-0400 Diastolic blood pressure 76 mm[Hg] Beth Lowe Other [facility] Other 05-06-2023 10:40-0400 Systolic blood pressure 138 mm[Hg] Beth Lowe Other [facility] [employer] Other 04-22-2023 09:28-0400 Body height 167.64 cm Lolita Adorno Work Phone: [facility] 250 DO Work Phone: 04-22-2023 09:28-0400 Body mass index (BMI) [Ratio] 26.63 kg/m2 Lolita Travis Schwerer Work Phone: [facility] 250 DO Work Phone: 04-22-2023 09:28-0400 Body surface area Derived from formula 1.84 m2 Lolita Travis Schwidar Work Phone: [facility] 250 DO Work Phone: 04-22-2023 09:28-0400 Body weight 74.84 kg Lolita Travis Schwerer Work Phone: [facility] 250 DO Work Phone: 04-22-2023 09:28-0400 Diastolic blood pressure 68 mm[Hg] Lolita Travis Schwerer Work Phone: [facility] 250 DO Work Phone: 04-22-2023 09:28-0400 Heart rate 76 /min Lolita Travis Schwerer Work Phone: [facility] 250 DO Work Phone: 04-22-2023 09:28-0400 Systolic blood pressure 124 mm[Hg] Lolita E Schwerer Work Phone: [facility] 250 DO Work Phone: 12-25-2022 10:30-0400 Body height 167.64 cm [employer] Other [facility] Other 12-25-2022 10:30-0400 Body mass index (BMI) [Ratio] 26.47 kg/m2 [employer] Other [employer] Other 12-25-2022 10:30-0400 Body weight 74.39 kg [employer] Other [employer] Other 12-25-2022 10:30-0400 Diastolic blood pressure 72 mm[Hg] [employer] Other [employer] Other 12-25-2022 10:30-0400 Systolic blood pressure 126 mm[Hg] [employer] Other [employer] Other 11-25-2022 14:30-0500 Body height 167.64 cm Lolitatoy Mendeserec[employer] Other [employer] Other 11-25-2022 14:30-0500 Body mass index (BMI) [Ratio] 26.56 kg/m2 Lolita Schwerer Other [employer] Other 11-25-2022 14:30-0500 Body weight 74.66 kg Lolita Schwerer Other [employer] Other 11-25-2022 14:30-0500 Diastolic blood pressure 80 mm[Hg] Lolita Schwerer Other [employer] Other 11-25-2022 14:30-0500 Respiratory rate 18 /min Lolita Adorno Other [employer] Other 11-25-2022 14:30-0500 SaO2% (BldA) [Mass fraction] 98 % Lolita Adorno Other [employer] Other 11-25-2022 14:30-0500 Systolic blood pressure 138 mm[Hg] Lolita Adorno Other [employer] Other 10-17-2022 10:00-0500 Body height 167.64 cm [employer] Other [employer] Other 10-17-2022 10:00-0500 Body mass index (BMI) [Ratio] 27.11 kg/m2 [employer] Other [employer] Other 10-17-2022 10:00-0500 Body weight 76.2 kg [employer] Other [employer] Other 10-16-2022 10:17-0500 Body height 167.64 cm Lolita Mendeserer Work Phone: [facility] [employer] 250 DO Work Phone: 10-16-2022 10:17-0500 Body mass index (BMI) [Ratio] 27.44 kg/m2 Lolita Travis Schwerer Work Phone: [facility] [employer] 250 DO Work Phone: 10-16-2022 10:17-0500 Body surface area Derived from formula 1.87 m2 Lolita E Schwerer Work Phone: [facility] [employer] 250 DO Work Phone: 10-16-2022 10:17-0500 Body weight 77.11 kg Lolita E Schwerer Work Phone: [facility] 250 DO Work Phone: 10-16-2022 10:17-0500 Diastolic blood pressure 64 mm[Hg] Lolita E Schwerer Work Phone: [facility] 250 DO Work Phone: 10-16-2022 10:17-0500 Heart rate 88 /min Lolita E Schwerer Work Phone: [facility] 250 DO Work Phone: 10-16-2022 10:17-0500 Systolic blood pressure 122 mm[Hg] Lolita E Schwerer Work Phone: [facility] DO Work Phone: 10-06-2022 11:15-0500 Body temperature 98.1 [degF] DO Lolita Schwerer Work Phone: [facility] 10-06-2022 11:15-0500 Diastolic blood pressure 88 mm[Hg] DO Lolita Schwerer Work Phone: [facility] 10-06-2022 11:15-0500 Heart rate 80 /min DO Loilta Schwerer Work Phone: [facility] 10-06-2022 11:15-0500 Respiratory rate 18 /min DO Lolita Schwerer Work Phone: [facility] 10-06-2022 11:15-0500 SaO2% (BldA) [Mass fraction] 98 % DO Lolita Schwerer Work Phone: [facility] 10-06-2022 11:15-0500 Systolic blood pressure 155 mm[Hg] DO Lolita Schwerer Work Phone: [facility] 10-06-2022 03:30-0500 Body weight 76 kg DO Lolita Schwerer Work Phone: [facility] 10-04-2022 10:45-0500 Body height 168.91 cm DO Lolita Schwerer Work Phone: [facility] 10-02-2022 10:14-0500 Inhaled oxygen flow rate 8 L/min DO Lolita Schwerer Work Phone: [facility] 10-02-2022 08:15-0500 Body mass index (BMI) [Ratio] 26.7 kg/m2 DO Lolita Schwerer Work Phone: [facility] 08-19-2022 16:00-0500 Body height 167.64 cm Lolita Schwerer Other [employer] Other 08-19-2022 16:00-0500 Body mass index (BMI) [Ratio] 27.19 kg/m2 Lolita Schwerer Other [employer] Other 08-19-2022 16:00-0500 Body weight 76.43 kg Lolita Schwerer Other [employer] Other 08-19-2022 16:00-0500 Diastolic blood pressure 88 mm[Hg] Lolita Schwerer Other [employer] Other 08-19-2022 16:00-0500 Respiratory rate 18 /min Lolita Schwerer Other [employer] Other 08-19-2022 16:00-0500 SaO2% (BldA) [Mass fraction] 98 % Lolita Schwerer Other [employer] Other 08-19-2022 16:00-0500 Systolic blood pressure 122 mm[Hg] Lolita Schwerer Other [employer] Other 07-14-2022 09:32-0400 Diastolic blood pressure 85 mm[Hg] DO Lolita Schwerer Work Phone: [facility] 07-14-2022 09:32-0400 Heart rate 78 /min DO Lolita Schwerer Work Phone: [facility] 07-14-2022 09:32-0400 Respiratory rate 16 /min DO Lolita Schwerer Work Phone: [facility] 07-14-2022 09:32-0400 SaO2% (BldA) [Mass fraction] 98 % DO Lolita Schwerer Work Phone: [facility] 07-14-2022 09:32-0400 Systolic blood pressure 158 mm[Hg] DO Lolita Schwerer Work Phone: [facility] 07-14-2022 09:03-0400 Body height 165.1 cm DO Lolita Schwerer Work Phone: [facility] 07-14-2022 09:03-0400 Body temperature 97 [degF] DO Lolita Schwerer Work Phone: [facility] 07-14-2022 09:03-0400 Body weight 79.37 kg DO Lolita Schwerer Work Phone: [facility] 06-20-2022 09:20-0400 Body height 167.64 cm Clemente Miller Other [employer] Other 06-20-2022 09:20-0400 Body mass index (BMI) [Ratio] 26.47 kg/m2 Clemente Miller Other [employer] Other 06-20-2022 09:20-0400 Body weight 74.39 kg Clemente Miller Other [employer] Other 05-14-2022 15:00-0400 Body height 167.64 cm Lolita Schwerer Other [employer] Other 05-14-2022 15:00-0400 Body mass index (BMI) [Ratio] 26.6 kg/m2 Lolita Schwerer Other [employer] Other 05-14-2022 15:00-0400 Body weight 74.75 kg Lolita Schwerer Other [employer] Other 05-14-2022 15:00-0400 Diastolic blood pressure 78 mm[Hg] Lolita Schwerer Other [employer] Other 05-14-2022 15:00-0400 Respiratory rate 18 /min Lolita Schwerer Other [employer] Other 05-14-2022 15:00-0400 SaO2% (BldA) [Mass fraction] 98 % Lolita Schwerer Other [employer] Other 05-14-2022 15:00-0400 Systolic blood pressure 118 mm[Hg] Lolita Schwerer Other [employer] Other 03-28-2022 10:52-0400 Body height 167.64 cm Lolita E Schwerer Work Phone: [facility] 250 DO Work Phone: 03-28-2022 10:52-0400 Body mass index (BMI) [Ratio] 26.63 kg/m2 Lolita E Schwerer Work Phone: [facility] 250 DO Work Phone: 03-28-2022 10:52-0400 Body surface area Derived from formula 1.84 m2 Lolita E Schwerer Work Phone: [facility] 250 DO Work Phone: 03-28-2022 10:52-0400 Body weight 74.84 kg Lolita E Schwerer Work Phone: [facility] 250 DO Work Phone: 03-28-2022 10:52-0400 Diastolic blood pressure 70 mm[Hg] Lolita E Schwerer Work Phone: [facility] 250 DO Work Phone: 03-28-2022 10:52-0400 Heart rate 78 /min Lolita E Schwerer Work Phone: [facility] 250 DO Work Phone: 03-28-2022 10:52-0400 Systolic blood pressure 132 mm[Hg] Lolita E Schwerer Work Phone: [facility] 250 DO Work Phone: 02-11-2022 15:15-0400 Body height 167.64 cm Lolita Schwerer Other [employer] [facility] Other 02-11-2022 15:15-0400 Body mass index (BMI) [Ratio] 26.74 kg/m2 Lolita Schwerer Other [employer] Other 02-11-2022 15:15-0400 Body weight 75.16 kg Lolita Schwerer Other [employer] Other 02-11-2022 15:15-0400 Diastolic blood pressure 72 mm[Hg] Lolita Schwerer Other [employer] Other 02-11-2022 15:15-0400 Respiratory rate 18 /min Lolita Schwerer Other [employer] Other 02-11-2022 15:15-0400 SaO2% (BldA) [Mass fraction] 99 % Lolita Schwerer Other [employer] Other 02-11-2022 15:15-0400 Systolic blood pressure 118 mm[Hg] Lolita Schwerer Other [employer] Other 11-13-2021 10:00-0500 Body height 167.64 cm Lolita Schwerer Other [employer] Other 11-13-2021 10:00-0500 Body mass index (BMI) [Ratio] 27.19 kg/m2 Lolita Schwerer Other [employer] Other 11-13-2021 10:00-0500 Body weight 76.43 kg Lolita Schwerer Other [employer] Other 11-13-2021 10:00-0500 Diastolic blood pressure 78 mm[Hg] Lolita Schwerer Other [employer] Other 11-13-2021 10:00-0500 Respiratory rate 18 /min Lolita Schwerer Other [employer] Other 11-13-2021 10:00-0500 SaO2% (BldA) [Mass fraction] 98 % Lolita Adorno Other [employer] Other 11-13-2021 10:00-0500 Systolic blood pressure 130 mm[Hg] Lolita Adorno Other [employer] Other 10-31-2021 16:30-0500 Body height 167.64 cm Yohannes Granda Other [employer] Other 10-31-2021 16:30-0500 Body mass index (BMI) [Ratio] 28.08 kg/m2 Yohannes Granda Other [employer] Other 10-31-2021 16:30-0500 Body temperature 98.2 [degF] Yohannes Granda Other [employer] Other 10-31-2021 16:30-0500 Body weight 78.93 kg Yohannes Granda Other [employer] Other 10-31-2021 16:30-0500 Diastolic blood pressure 84 mm[Hg] Yohannes Granda Other [employer] Other 10-31-2021 16:30-0500 Respiratory rate 18 /min Yohannes Granda Other [employer] Other 10-31-2021 16:30-0500 SaO2% (BldA) [Mass fraction] 98 % Yohannes Granda Other [employer] Other 10-31-2021 16:30-0500 Systolic blood pressure 144 mm[Hg] Yohannes Granda Other [employer] Other 09-19-2021 10:07-0500 Diastolic blood pressure 60 mm[Hg] Lolita E Schwerer Work Phone: [facility] 250 DO Work Phone: 09-19-2021 10:07-0500 Systolic blood pressure 132 mm[Hg] Lolita E Schwerer Work Phone: [facility] 250 DO Work Phone: 09-19-2021 09:51-0500 Diastolic blood pressure 80 mm[Hg] Lolita E Schwerer Work Phone: [facility] 250 DO Work Phone: 09-19-2021 09:51-0500 Systolic blood pressure 150 mm[Hg] Lolita E Schwerer Work Phone: [facility] 250 DO Work Phone: 09-19-2021 09:47-0500 Body height 167.64 cm Lolita E Schwerer Work Phone: [facility] 250 DO Work Phone: 09-19-2021 09:47-0500 Body mass index (BMI) [Ratio] 27.6 kg/m2 Lolita E Schwerer Work Phone: [facility] 250 DO Work Phone: 09-19-2021 09:47-0500 Body surface area Derived from formula 1.87 m2 Lolita E Schwerer Work Phone: [facility] 250 DO Work Phone: 09-19-2021 09:47-0500 Body weight 77.57 kg Lolita E Schwerer Work Phone: [facility] 250 DO Work Phone: 09-19-2021 09:47-0500 Diastolic blood pressure 92 mm[Hg] Lolita E Schwerer Work Phone: [facility] [employer] 250 DO Work Phone: 09-19-2021 09:47-0500 Heart rate 73 /min Lolita E Schwerer Work Phone: [facility] [employer] 250 DO Work Phone: 09-19-2021 09:47-0500 Systolic blood pressure 162 mm[Hg] Lolita E Schwerer Work Phone: [facility] [employer] 250 DO Work Phone: 08-09-2021 10:00-0400 Body height 167.64 cm Lolita Schwerer Other [employer] Other 08-09-2021 10:00-0400 Body mass index (BMI) [Ratio] 27.44 kg/m2 Lolita Schwerer Other [employer] Other 08-09-2021 10:00-0400 Body weight 77.11 kg Lolita Schwerer Other [employer] Other 08-09-2021 10:00-0400 Diastolic blood pressure 94 mm[Hg] Lolita Schwerer Other [employer] Other 08-09-2021 10:00-0400 Respiratory rate 18 /min Lolita Schwerer Other [employer] Other 08-09-2021 10:00-0400 SaO2% (BldA) [Mass fraction] 96 % Lolita Schwerer Other [employer] Other 08-09-2021 10:00-0400 Systolic blood pressure 142 mm[Hg] Lolita Schwerer Other [facility] Other Encounters Encounter Date Encounter Type Care Provider Facility Start: 04-26-2024 End: 04-26-2024 ambulatory DO Lolita E Schwerer Work Phone: [facility] Work Phone: Start: 04-26-2024 End: 04-26-2024 Patient encounter procedure DO Lolita Schwerer Work Phone: [facility] Ne[facility] Work Phone: Start: 03-22-2024 Encounter for genera l adult medical examination without abnormal findings Lolita E Schwerer [facility] Physician [facility] Start: 03-22-2024 End: 03-22-2024 ambulatory DO Lolita E Schwerer Work Phone: [facility] Work Phone: Start: 03-22-2024 End: 03-22-2024 Patient encounter procedure [facility] [place] Work Phone: Start: 12-26-2023 End: 12-26-2023 ambulatory DO Lolita E Schwerer Work Phone: [facility] Work Phone: Start: 12-26-2023 End: 12-26-2023 Patient encounter procedure DO Lolita Schwerer Work Phone: [facility] Work Phone: Start: 12-25-2023 End: 12-25-2023 ambulatory DO Lolita E Schwerer Work Phone: [facility] Work Phone: Start: 12-25-2023 End: 12-25-2023 Patient encounter procedure DO Lolita Schwerer Work Phone: [facility] [place] Work Phone: Start: 12-01-2023 Non-patient / Non-visit DO Med Adorno Work Phone: [facility] Professional [place] Work Phone: Start: 11-17-2023 End: 11-17-2023 ambulatory Lolita Mendeserer Other [facility] Other Start: 11-17-2023 Telephone encounter Lolita Aragonr [facility] [place] Start: 10-30-2023 End: 10-30-2023 ambulatory Nette Adina Other [facility] Other Start: 10-30-2023 Office outpatient vi sit 25 minutes Nette Burnettr [facility] Start: 10-17-2023 End: 10-17-2023 Patient encounter procedure DO Lolita Adorno Work Phone: [facility] [place] Work Phone: Start: 10-17-2023 End: 10-17-2023 ambulatory DO Lolita Adorno Work Phone: [facility] Work Phone: Start: 10-16-2023 End: 10-16-2023 [facility] Start: 10-16-2023 End: 10-16-2023 Office outpatient visit 25 minutes Gabriela Florian MD Work Phone: [facility] Comment on above: 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of n ative coronary artery of [place] heart without angina pectoris; Essential hypertension; History of PR (myocardial infarction); Mixed hyperlipidemia; S/P PTCA (percutaneous transluminal coronary angioplasty); Stage 3a chronic kidney disease (CMS/HCC); Current smoker on some days; Type 2 diabetes mellitus without complication, with long-term current use of insulin (CMS/[facility]); Overweight with body mass index (BMI) of 27 to 27.9 in adult; Atherosclerotic heart disease of [place] coronary artery without angina pectoris Start: 09-25-2023 End: 09-25-2023 ambulatory Beth Chrissy Other [employer] Other Start: 09-25-2023 Office outpatient vi sit [address] [facility] Neurosurgery Start: 09-23-2023 Office outpatient vi sit 25 minutes Lolita Schwerer [facility] Start: 09-23-2023 End: 09-23-2023 Patient encounter procedure DO Lolita Schwerer Work Phone: [facility] Start: 09-23-2023 End: 09-23-2023 ambulatory DO Lolita E Schwerer Work Phone: [facility] Other Start: 09-18-2023 Postop follow up vis it related to original px Lyudmila White [facility] Orthopedics Start: 09-18-2023 End: 09-18-2023 Patient encounter procedure DO Lolita Schwerer Work Phone: [facility] [place] [facility] Start: 09-18-2023 End: 09-18-2023 ambulatory DO Lolita E Schwerer Work Phone: [facility] Work Phone: Start: 09-12-2023 End: 09-12-2023 ambulatory Lolita Schwerer Other [employer] Other Start: 09-12-2023 Telephone encounter Lolita Schwerer [facility] Start: 09-08-2023 End: 09-11-2023 Evaluation and management of inpatient DO Lolita Schwerer Work Phone: [facility] [place] Work Phone: Start: 08-21-2023 Office outpatient vi sit 15 minutes Lyudmila White [facility] Orthoped[facility] Start: 08-21-2023 End: 08-21-2023 Patient encounter procedure DO Lolita Schwerer Work Phone: [facility] [place] [facility] Start: 08-21-2023 End: 08-21-2023 ambulatory DO Lolita E Schwerer Work Phone: [facility] Work Phone: Start: 07-31-2023 Postop follow up vis it related to original px Prieto Santo [facility] Orthopedics Start: 07-31-2023 End: 07-31-2023 Patient encounter procedure DO Lolita Schwerer Work Phone: [facility] [place] [facility] Start: 07-31-2023 End: 07-31-2023 ambulatory DO Lolita E Schwerer Work Phone: [facility] Work Phone: Start: 07-24-2023 End: 07-24-2023 ambulatory Prieto Santo Other [employer] Other Start: 07-24-2023 [facility] visit new patient Prieto Santo [facility] Orthopedics Start: 07-23-2023 End: 07-23-2023 ambulatory Lolita Schwerer Other [employer] Other Start: 07-23-2023 Telephone encounter Lolita Schwerer [facility] [place] Start: 07-22-2023 End: 07-22-2023 Emergency department patient visit DO Lolita Schwerer Work Phone: [facility]-Emergency Room Work Phone: Start: 06-18-2023 End: 06-18-2023 ambulatory Beth Lowe Other [employer] Other Start: 06-18-2023 Office outpatient vi sit [address] [facility] Neurosurgery Start: 06-02-2023 End: 06-02-2023 ambulatory Lolita Schwerer Other [facility] Other Start: 06-02-2023 Office outpatient vi sit 15 minutes Lolita Schwerer [facility] Start: 05-16-2023 End: 05-16-2023 Patient encounter procedure DO Lolita Schwerer Work Phone: [facility] [place] Work Phone: Start: 05-16-2023 End: 05-16-2023 ambulatory DO Lolita E Schwerer Work Phone: [facility] Work Phone: Start: 05-06-2023 Office outpatient vi sit 15 minutes Beth [facility] Neuro[facility] Start: 05-06-2023 End: 05-06-2023 Patient encounter procedure DO Lolita Schwerer Work Phone: [facility] [place] Work Phone: Start: 05-06-2023 End: 05-06-2023 ambulatory Lolita E Schwerer [facility] [employer] Other Start: 04-30-2023 End: 04-30-2023 Patient encounter procedure DO Lolita Schwerer Work Phone: [facility] [place] Work Phone: Start: 04-30-2023 End: 04-30-2023 ambulatory DO Lolita E Schwerer Work Phone: [facility] Work Phone: Start: 04-22-2023 Office outpatient vi sit 25 minutes Lolita E Schwerer Work Phone: [facility] 250 DO Work Phone: Start: 04-22-[address] Gabriela Florian Facility: Start: 04-15-2023 Patient encounter procedure Lolita E Schwerer Work Phone: [facility] 600 DO Work Phone: Start: 04-15-2023 Chart Update Lolita E [facility] Work Phone: Start: 04-15-2023 End: 04-15-2023 Patient encounter procedure DO Lolita Schwerer Work Phone: [facility] [place] Work Phone: Start: 04-15-2023 End: 04-15-2023 ambulatory DO Lolita E Schwerer Work Phone: [facility] Work Phone: Start: 02-17-2023 Rx Renewal Lolita E Schw erer Work Phone: [facility] 250 DO Work Phone: Start: 01-01-2023 End: 01-01-2023 ambulatory Lolita Schwerer Other [facility] [employer] Other Start: 01-01-2023 Telephone encounter Lolita Schwerer [facility] Start: 12-25-2022 End: 12-25-2022 ambulatory Beth Lowe Other [facility] Other Start: 12-25-2022 Postop follow up vis it related to original px Beth Lowe [facility] Neurosurgery Start: 11-25-2022 End: 11-25-2022 ambulatory Lolita Schwerer Other [facility] [employer] Other Start: 11-25-2022 Office outpatient vi sit 25 minutes Lolita Schwerer [facility] Start: 10-17-2022 End: 10-17-2022 ambulatory Beth Lowe Other [facility] Other Start: 10-17-2022 Postop follow up vis it related to original px Beth Lowe [facility] Neurosurgery Start: 10-16-2022 Office outpatient vi sit 25 minutes Lolita E Schwerer Work Phone: -[facility] 250 DO Work Phone: Start: 10-16-[address] Gabriela Florian Facility: Start: 10-02-2022 End: 10-06-2022 Admission to same day surgery center DO Lolita Schwerer Work Phone: [facility]gery [facility] [place] Start: 10-02-2022 End: 10-06-2022 ambulatory DO Lolita E Schwerer Work Phone: [facility] Work Phone: Start: 10-01-2022 End: 10-01-2022 ambulatory DO Lolita E Schwerer Work Phone: [facility] Work Phone: Start: 10-01-2022 End: 10-01-2022 Patient encounter procedure DO Lolita Schwerer Work Phone: [facility]y-[facility]fo-S[facility]ec[facility] Testing Work Phone: Start: 09-18-2022 End: 09-18-2022 ambulatory DO Lolita E Schwerer Work Phone: [facility] Work Phone: Start: 09-18-2022 End: 09-18-2022 Patient encounter procedure DO Lolita Schwerer Work Phone: [facility] Mzd-Mqi-[employer]usmt[employer] Testing Start: 08-19-2022 End: 08-19-2022 ambulatory Lolita Schwerer Other [employer] Other Start: 08-19-2022 Office outpatient vi sit 25 minutes Lolitabryce Mendesidar [facility] Start: 08-15-2022 End: 08-15-2022 ambulatory Clemente Miller Other [employer] Other Start: 08-15-2022 Office outpatient vi sit [address] [facility] Neurosurgery Start: 07-15-2022 End: 07-15-2022 ambulatory Lolita Schwerer Other [employer] Other Start: 07-15-2022 Telephone encounter Lolita Vaughnerer [facility] Start: 07-14-2022 End: 07-14-2022 Emergency department patient visit DO Lolita Schwerer Work Phone: [facility]-Emergency Room Start: 07-08-2022 End: 07-08-2022 ambulatory DO Lolita E Schwerer Work Phone: [facility] Work Phone: Start: 07-08-2022 End: 07-08-2022 Discharged Recurring DO Lolita Schwerer Work Phone: [facility]-Physical Therapy [address] Start: 07-08-2022 Registered Recurring DO Kaitli n Schwerer Work Phone: [facility]-Physical Therapy [address] Start: 06-21-2022 End: 06-21-2022 ambulatory Clemente Miller Other [employer] Other Start: 06-21-2022 Telephone encounter Clemente Miller [facility] Facilities Manager Start: 06-20-2022 End: 06-20-2022 ambulatory Clemente Miller Other [employer] Other Start: 06-20-2022 Office outpatient ne w [address] [facility] Neurosurgery Start: 06-03-2022 End: 06-03-2022 ambulatory Lolita Schwerer Other [facility] [employer] Other Start: 06-03-2022 Telephone encounter Lolita Schwerer [facility] Start: 05-29-2022 End: 05-29-2022 Patient encounter procedure DO Lolita Schwerer Work Phone: [facility]-MRI [address] Start: 05-15-2022 End: 05-15-2022 Patient encounter procedure DO Lolita Schwerer Work Phone: [facility]-X-Ray [facility] Start: 05-14-2022 End: 05-14-2022 ambulatory Lolita Schwerer Other [facility] [employer] Other Start: 05-14-2022 Office outpatient vi sit 25 minutes Lolita Schwerer [facility] Start: 04-25-2022 End: 04-25-2022 ambulatory Lolita Schwerer Other [facility] [employer] Other Start: 04-25-2022 Telephone encounter Lolita Schwerer [facility] Start: 03-28-2022 Office outpatient vi sit 25 minutes Lolita E Schwerer Work Phone: [facility] 250 DO Work Phone: Start: 02-11-2022 End: 02-11-2022 ambulatory Lolita Schwerer Other [employer] Other Start: 02-11-2022 Office outpatient vi sit 25 minutes Lolita Schwerer [facility] Start: 11-26-2021 End: 11-26-2021 ambulatory Lolita Schwerer Other [employer] Other Start: 11-26-2021 Telephone encounter Lolita Schwerer [facility] [place] Start: 11-13-2021 End: 11-13-2021 ambulatory Lolita Schwerer Other [employer] Other Start: 11-13-2021 Office outpatient vi sit 25 minutes Lolita Schwerer [facility] [place] Start: 11-13-2021 Telephone encounter Lolita Schwerer [facility] [place] Start: 11-02-2021 End: 11-02-2021 ambulatory Lolita Schwerer Other [employer] Other Start: 11-02-2021 Telephone encounter Lolita Schwerer [facility] [place] Start: 11-01-2021 End: 11-01-2021 ambulatory Lolita Schwerer Other [employer] Other Start: 11-01-2021 Telephone encounter Lolita Schwerer [facility] [place] Start: 10-31-2021 End: 10-31-2021 ambulatory Yohannes Granda Other [employer] Other Start: 10-31-2021 Patient encounter procedure Yohannes Granda [facility] Gastroenterology Start: 10-31-2021 Telephone encounter Lolita Schwerer [facility] [place] Start: 09-19-2021 Office outpatient vi sit 25 minutes Lolita E Schwerer Work Phone: [facility] 250 DO Work Phone: Start: 09-10-2021 Rx Renewal August Fontanez her Work Phone: [facility] [address] [place] Work Phone: Start: 08-28-2021 End: 08-28-2021 ambulatory Yohannes Granda Other [employer] Other Start: 08-28-2021 Telephone encounter Yohannes PENN G Facilities Manager Start: 08-09-2021 End: 08-09-2021 ambulatory Lolita Schwerer Other [facility] [employer] Other Start: 08-09-2021 Office outpatient vi sit 25 minutes Lolita Schwerer [facility] Start: 08-09-2021 Telephone encounter Lolita Aragonr [facility] Start: 09-18-2017 Ambulatory BHARATHI COLMENARES Facility :[id number] [...] Joseph Dumont Work Phone: Cataract surgery August holder Work Phone: Colonic polypectomy August Dumont Work [...] DTaP/Tdap/Td Vaccines (2 - Td or Tdap) [facility] Start: 04-29-2024 End: 04-29-2024 Patient encounter procedure 04/29/2024 9:10 AM EDT Office Visit [facility] [address] [place] [address] Gabriela Florian MD [address] [facility] [address] [place] [address] [facility] Start: 10-16-2023 End: 10-16-2024 Alanine aminotransferase [Enzymatic activity/volume] in Serum or Plasma by With P-5'-P Alanine Aminotransferase Lab Routine 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of [place] coronary artery of [place] heart without angina pectoris Mixed hyperlipidemia Expected: 10/16/2023 (Approximate), Expires: 10/16/2024 [facility] Work Phone: Comment on above: Expected: 10/16/2023 (Approximate), Expi res: 10/16/2024 Start: 10-16-2023 End: 10-16-2024 Aspartate aminotransferase [Enzymatic activity/volume] in Serum or Plasma by With P-5'-P Aspartate Aminotransferase Lab Routine 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of [place] coronary artery of [place] heart without angina pectoris Mixed hyperlipidemia Expected: 10/16/2023 (Approximate), Expires: 10/16/2024 [facility] Work Phone: Comment on above: Expected: 10/16/2023 (Approximate), Expi res: 10/16/2024 Start: 10-16-2023 End: 10-16-2024 Lipid 1996 panel - Serum or Plasma Lipid Panel Lab Routine 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of [place] coronary artery of [place] heart without angina pectoris Mixed hyperlipidemia Expected: 10/16/2023 (Approximate), Expires: 10/16/2024 [facility] Service Area Work Phone: Comment on above: Expected: 10/16/2023 (Approximate), Expi res: 10/16/2024 Start: 10-16-2023 FUV, Provider: Gabriela Florian, Status: Pen, Time: 9:10 AM FUV, Provider: Gabriela Florian, Status: Pen, Time: 9:10 AM -Merged With [facility] 250 DO Work Phone: Start: 09-11-2023 [facility] Start: 09-09-2023 [facility] Start: 09-09-2023 Referral to forging press lever tender [facility] Start: 09-08-2023 Referral to photographic press screwmaker [facility] Start: 09-08-2023 Excision of Duodenum, Via Natural or Artificial Opening Endoscopic, Diagnostic Excision of Duodenum, Via Natural or Artificial Opening Endoscopic, Diagnostic [facility] Start: 09-08-2023 Excision of Stomach, Pylorus, Via Natural or Artificial Opening Endoscopic, Diagnostic Excision of Stomach, Pylorus, Via Natural or Artificial Opening Endoscopic, Diagnostic [facility] Start: 09-08-2023 Consultation [facility] Start: 09-08-2023 Hospital admission [facility] Start: 09-03-2023 COVID-19 Vaccine (4 - Moderna series) COVID-19 Vaccine (4 - Moderna series) [facility] Start: 04-22-2023 FUV, Provider: Gabriela Florian, Status: Pen, Time: 9:20 AM FUV, Provider: Gabriela Florian, Status: Pen, Time: 9:20 AM -[facility] 250 DO Work Phone: Start: 10-16-2022 FUV, Provider: Gabriela Florian, Status: Pen, Time: 10:20 AM FUV, Provider: Gabriela Florian, Status: Pen, Time: 10:20 AM -[facility]erged With [facility] [employer] 250 DO Work Phone: Start: 10-06-2022 [facility] Start: 10-03-2022 Referral to clinical title one kindergarten teacher [facility] Start: 03-28-2022 FUV, Provider: Gabriela Florian, Status: Pen, Time: 10:40 AM FUV, Provider: Gabriela Florian, Status: Pen, Time: 10:40 AM [facility] 250 DO Work Phone: Start: 09-19-2021 FUV, Provider: Gabriela Florian, Status: Pen, Time: 10:00 AM FUV, Provider: Gabriela Florian, Status: Pen, Time: 10:00 AM -[facility] [address] [place] Work Phone: Start: 2015 Abdominal aortic aneurysm screening Abdominal Aortic Aneurysm (AAA) Screening [facility] Start: 1969 Urine screening for protein Diabetes: Urine Protein Screening [facility] Start: 1968 Hepatitis C screening Hepatitis C Screening [facility] Start: 1960 Diabetic foot examination Diabetes: Foot Exam [facility] Start: 1960 Glaucoma screening Diabetes: Retinopathy Screening [facility] Start: 1950 Hemoglobin A1c measurement Diabetes: Hemoglobin A1C [facility] Start: 1950 Lipid panel Lipid Panel [facility] Start: 1950 Medicare Annual Wellness Visit Medicare Annual Wellness Visit (AWV) [facility] Start: 1950 Screening for malignant neoplasm of colon [facility] [facility] 24 hour urine measurement Fi [facility] Blood chemistry [facility] Elastase.pancreatic [Mass/mass] in Stool [facility] Electrophoresis: [id number] [facility] Electrophoresis: [id number] [facility] Electrophoresis: beta-globulin [facility] Immunofixation for Urine Fir [facility] Measurement of monoc lonal protein concentration [facility] Patient Education [facility] Work Phone: Patient referral [facility] Work Phone: Protein [Mass/volume ] in Urine [facility] Renal function 2000 panel - Serum or Plasma [facility] Immunizations Immunization Date Immunization Notes Care Provider Fa cility 07-09-2023 COVID-19 Moderna (SPIKEVAX) Lolita Schwerer Other [facility] 05-21-2023 Fluzone QIV High-Dos e 65YR+ [facility] 02-28-2023 Prevnar 20 0.5 ML Intramuscular Suspension Prefilled Syringe Lolita E Schwerer Work Phone: [facility] 02-28-2023 tetanus toxoid, redu michel diphtheria toxoid, and acellular pertussis vaccine, adsorbed Lolita E Schwerer Work Phone: [facility] 07-16-2022 COVID-19 Moderna (BIvalent) Clemente Miller Other [facility] 06-26-2022 Fluzone High-Dose Quadrivalent 0.7 ML Intramuscular Suspension Prefilled Syringe Lolita E Schwerer Work Phone: [facility] 250 DO Work Phone: 06-26-2022 influenza, seasonal, injectable Lolita Schwerer Other [facility] Other 09-13-2021 Moderna COVID-19 Vaccine 100 MCG/0.5ML Intramuscular Suspension Lolita E Schwerer Work Phone: [facility] 06-18-2021 influenza, seasonal, injectable Lolita Schwerer Other [facility] 06-08-2021 Fluad Quadrivalent 0 .5 ML Intramuscular Prefilled Syringe Lolita E Schwerer Work Phone: [facility] 250 DO Work Phone: 01-24-2021 COVID-19 Vaccine Moderna - Documentation Purposes Only Lolita Schwerer Other [facility] 12-27-2020 COVID-19 Vaccine Moderna - Documentation Purposes Only Lolita Schwerer Other [facility] 08-19-2020 zoster vaccine recombinant Lolita Schwerer Other [facility] 06-27-2020 influenza, seasonal, injectable Lolita E Schwerer Work Phone: [facility] 250 DO Work Phone: 06-14-2020 Fluzone High-Dose Quadrivalent 0.7 ML Intramuscular Suspension Prefilled Syringe Lolita E Schwerer Work Phone: [facility] 250 DO Work Phone: 06-14-2020 zoster vaccine recombinant Lolita Schwerer Other [facility] 07-06-2019 influenza virus vaccine, unspecified formulation Lolita E Schwerer Work Phone: [facility] 250 DO Work Phone: 06-21-2019 pneumococcal conjuga te vaccine, 13 valent Lolita Schwerer Other [facility] 06-14-2019 influenza, high dose seasonal, preservative-free Lolita E Schwerer Work Phone: [facility] 250 DO Work Phone: 06-19-2018 influenza virus vaccine, unspecified formulation Lolita E Schwerer Work Phone: [facility] 250 DO Work Phone: 06-19-2018 influenza, high dose seasonal, preservative-free Lolita E Schwerer Work Phone: [facility] 250 DO Work Phone: 08-05-2017 zoster vaccine, live Lolita Schwerer Other [facility] 07-06-2017 influenza, high dose seasonal, preservative-free Lolita E Schwerer Work Phone: [facility] 250 DO Work Phone: 07-06-2017 pneumococcal polysaccharide vaccine, 23 valent Lolita E Schwerer Work Phone: [facility] 250 DO Work Phone: 07-06-2017 zoster vaccine, live Lolita E Schwerer Work Phone: [facility] 250 DO Work Phone: 05-14-2017 influenza, high dose seasonal, preservative-free Lolita E Schwerer Work Phone: [facility] 250 DO Work Phone: 06-22-2016 pneumococcal polysaccharide vaccine, 23 valent Lolita Adorno Other [facility] 05-23-2016 influenza, high dose seasonal, preservative-free Lolita Mendeserer Work Phone: [facility] 250 DO Work Phone: influenza virus vaccine, unspecified formulation Lolita Travis Schwerer Work Phone: -[facility] 250 DO Work Phone: Comment on above: 2010 2008 Payers Date Payer Category Payer Medicare [id number] 2023 Self-pay [id number] 2023 Medicare HUMANA MEDICARE HUMANA GOLD CHOICE [id number] 2023-Present [address] [address] [place] [address] [id number] 2022 Medicare [id number] 2. [id number] 2022 Medicare [id number] 1950 Unknown [id number] [id number] 1950 Unknown [id number] [id number] 1950 Unknown [id number] 2.840.1.751047.3.579.2.1244 Medicare [id number] Unknown Unknown [id number] 2.840.1.511217.3.579.2.531 Unknown [id number] 2.840.1.609369.3.579.2.531 Unknown [id number] 2.16.840.1.650136.3.579.2.531 Unknown [id number] 2.16.840.1.875787.3.579.2.531 Unknown [id number] 2.16.840.1.760242.3.579.2.531 Unknown [id number] 2.16.840.1.985960.3.579.2.531 Unknown [id number] 2.16.840.1.342165.3.579.2.531 Unknown [id number] 2.16.840.1.081675.3.579.2.531 Unknown [id number] 2.16.840.1.567655.3.579.2.531 Unknown [id number] 2.16.840.1.447352.3.579.2.531 Unknown [id number] 2.16.840.1.392641.3.579.2.531 Unknown [id number] 2.16.840.1.065869.3.579.2.531 Social History Date Type Detail Facility Start: 09-24-2023 No illicit drug use No illicit drug use [facility] Other Comment on above: 2 cups of coffee philippe ly; 1-2 packs weekly; 1 pack every 2 weeks ; Start: 11-06-1986 Sex Assigned At N [facility] Other Start: 07-14-2022 End: 03-22-2024 Tobacco smoking status NJIS Smoker (finding) [facility] Start: 1950 Sex Assigned At Male [facility] Start: 09-24-2023 Tobacco smoking status [facility] Smokes tobacco daily [facility] Work Phone: History of tobacco use Cigarette Smoker [facility] Work Phone: Start: 09-24-2023 Tobacco use and exposure Smokeless tobacco non-user [facility] Work Phone: Start: 10-16-2023 Alcohol intake Lifetime non-d perla (finding) [facility] Work Phone: Start: 1950 Sex Assigned At Not on file [facility] Work Phone: Start: 10-06-2023 End: 10-16-2023 Exposure to SARS-CoV-2 (event) Not sure [facility] Start: 11-06-2023 Tobacco smoking status NHIS Ex-smoker (finding) [facility] Medical Equipment Procedure Code Equipment Code Equipment [...] Bone-screw inter nal spinal fixation system, non-sterile [id number] FDA Start: 10-02-2022 Bone-screw inter nal spinal fixation system, non-sterile [id number] FDA Start: 10-02-2022 Spinal fusion gr aft kit [id number] [id number] FDA Start: 10-02-2022 Polymeric spinal fusion cage, sterile [id number] [id number] FDA Start: 10-02-2022 Bone-screw inter nal spinal fixation system, non-sterile [id number] FDA Start: 10-02-2022 CL STENT PROMUS REGAN [...] Facility 09-11-2023 Functional status Patient at Baseline [facility] Work Phone: 10-06-2022 Functional status 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 [facility] Work Phone: Mental Status Date Assessment Result Facility 09-11-2023 Cognitive function Cognitive Sta tus Patient at Baseline [facility] Work Phone: 10-06-2022 Cognitive function Cognitive Sta tus Patient at Baseline [facility] Work Phone: Clinical Notes 08-09-2021 to 10-30-2023 [...] of any breach, fraud, or malicious third alliance party actors and no personal patient information was compromised. [facility] Other 01-11-2024 History of Present illness Narrative* [...] tablet, Rfl: 3 Assessment/Plan 1. 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of [place] coronary artery of [place] heart without angina pectoris Follow Up In [...] (Apresoline) 50 mg tablet 3. History of PR (myocardial infarction) isosorbide mononitrate ER (Imdur) 30 mg 24 hr tablet nitroglycerin (Nitrostat) 0.4 mg SL tablet 4. Mixed hyperlipidemia Lipid Panel Alanine Aminotransferase Aspartate Aminotransferase Lipid Panel Alanine Aminotransferase Aspartate Aminotransferase 5. S/P PTCA (percutaneous transluminal coronary angioplasty) 6. Stage 3a chronic kidney disease ([facility]/HCC) 7. Current smoker on some days 8. Type 2 diabetes mellitus without complication, with long-term current use of insulin ([facility]) 9. Overweight with body mass index (BMI) of 27 to 27.9 in adult 10. Atherosclerotic heart disease of [place] coronary artery without angina pectoris atorvastatin (Lipitor) 20 mg tablet Scribe Attestation By signing my name below, Magali Snyder LPN , Scribe attest that this documentation has been prepared under the direction and in the presence of Gabriela Florian MD. [facility] Work Phone: 1(264) 880-285001-11-2024 Instructions* Patient Instructions* Bryanna Avendano LPN - [...] time of your visit. [facility] Work Phone: 1(415) 170-374012-21-2023 Evaluation note* Encounter Date Diagnosis Assessment Notes Treatment Notes Treatment Clinical Notes Sep, History of lumbar fusion (ICD-10 - Z98.1) Sep, Degenerative lumbar disc (ICD-10 - M51.36) Reviewed xray from 05/06/23 good bony alignment and harware placement. Discusion to continue with home exercise program. Follow up in 1 year with xray [facility] Other 12-19-2023 Evaluation note* Encounter Date Diagnosis [...] him to continu until he sees GI. [facility] Other 12-14-2023 Evaluation note* Encounter Date Diagnosis [...] of this patient was performed by Lyudmila Concord, HARDWARE ASSEMBLER and patient will continue with the treatment plan per Dr. Santo, who initiated this treatment plan. Dr. Santo is present in the office today and providing supervision. 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: Awake,Alert, following simple command Musculoskeletal: No joint [...] 81 Mg Tab.Chew) 81 mg PO QAM [facility] Stop: 09/08/24 08:59 Last Admin: 09/11/23 08:34 Dose: 81 mg Atorvastatin Calcium (Atorvastatin 20 Mg Tablet) 20 mg PO QHS [facility] Stop: 09/07/24 21:59 Last Admin: 09/10/23 21:16 Dose: 20 mg Carvedilol (Carvedilol 25 Mg Tablet) 25 mg PO BID.WITH.MEALS [facility] Stop: 09/07/24 16:59 Last Admin: 09/11/23 08:34 Dose: 25 mg Cyanocobalamin (Cyanocobalamin 1,000 Mcg Tablet) 1,000 mcg PO QAM [facility] Stop: 09/08/24 08:59 Last Admin: 09/11/23 08:33 Dose: 1,000 mcg Dextrose (Dextrose 50% In Water 25 Gm/50 Ml Syringe) 0 gm IV-PUSH PRN PRN PRN Reason: Hypoglycemia Stop: 09/07/24 13:52 Enoxaparin Sodium (Enoxaparin 30 Mg/0.3 Ml Syringe) 30 mg SUBCUT DAILY@1000 [facility] Stop: 09/08/24 09:59 Last Admin: 09/11/23 11:04 Dose: 30 mg Ferrous Sulfate (Ferrous Sulfate 324 Mg Tablet.) 324 mg PO QAM [facility] Stop: 09/08/24 08:59 Last Admin: 09/11/23 08:33 Dose: 324 mg Glucose (Dextrose 40% Gel 15 Gm Tube) 0 gm PO PRN PRN PRN Reason: Hypoglycemia Stop: 09/07/24 13:52 Hydralazine HCl (Hydralazine 50 Mg Tablet) 50 mg PO BID [facility] Stop: 09/07/24 15:14 Last Admin: 09/11/23 08:34 Dose: 50 mg Insulin Aspart (Insulin Aspart 300 Units/3 Ml Insuln.Pen) 0 units SUBCUT TID.WM.HS [facility]; Protocol Stop: 09/07/24 16:59 Last Admin: 09/11/23 08:31 Dose: Not Given Insulin Glargine (Insulin Glargine 300 Units/3 Ml Insuln.Pen) 8 units SUBCUT DAILY [facility] Stop: 09/08/24 08:59 Last Admin: 09/11/23 08:34 Dose: 8 units Isosorbide Mononitrate (Isosorbide Mononitrate 24hr Er 30 Mg Tab.Er.24h) 30 mg PO QAM [facility] Stop: 09/08/24 08:59 Last Admin: 09/11/23 08:34 Dose: 30 mg Morphine Sulfate (Morphine Sulfate 2 Mg/Ml Vial) 2 mg IV-PUSH Q3H PRN PRN Reason: Severe Pain Last Admin: 09/08/23 23:35 Dose: 2 mg Nitroglycerin (Nitroglycerin 0.4 Mg Tab.Subl) 0.4 mg SUBLINGUAL Q5M PRN PRN Reason: Chest Pain Stop: 09/07/24 15:10 Pantoprazole Sodium (Pantoprazole 40 Mg Tablet.) 40 mg PO BID [facility] Stop: 09/09/24 08:59 Last Admin: 09/11/23 08:33 [...] signed by Nette Holden MD> 09/11/23 1130 [facility] Work Phone: 1([phone] 948-384512-07-2023 Progress note Author Joao Coley [facility] September 11, 2023 8:54am Note Date/Time September 11, 2023 8 :55am [facility] [address] [place] [address] Gastroenterology PN Signed Patient: Dave Lugo MR#: [id number] : 1950 Acct:[id number] Age/Sex: 73 / M Adm Date: 3 Loc: Room: [address] [place] [address] Type: ADM IN Attending Dr: Barbie Osborn [...] Insuln.Pen SUBCUT 09/07/24 16:59 Not Given TID.WM.HS [facility] Protocol Insulin Glargine 8 units 09/09/23 09:00 [...] signed by MD Joao Coley> 09/11/23 0854 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: Awake,Alert, following simple command Musculoskeletal: No joint [...] Mg/0.3 Ml Syringe) 30 mg SUBCUT DAILY@1000 [facility] Stop: 09/08/24 09:59 Last Admin: 09/10/23 11:30 Dose: 30 mg Ferrous Sulfate (Ferrous Sulfate 324 Mg Tablet.) 324 mg PO QAM [facility] Stop: 09/08/24 08:59 Last Admin: 09/10/23 08:43 Dose: 324 mg Glucose (Dextrose 40% Gel 15 Gm Tube) 0 gm PO PRN PRN PRN Reason: Hypoglycemia Stop: 09/07/24 13:52 Hydralazine HCl (Hydralazine 50 Mg Tablet) 50 mg PO BID [facility] Stop: 09/07/24 15:14 Last Admin: 09/10/23 08:43 Dose: 50 mg Insulin Aspart (Insulin Aspart 300 Units/3 Ml Insuln.Pen) 0 units SUBCUT TID.WM.[facility]; Protocol Stop: 09/07/24 16:59 Last Admin: 09/10/23 11:27 Dose: 3 units Insulin Glargine (Insulin Glargine 300 Units/3 Ml Insuln.Pen) 8 units SUBCUT DAILY [facility] Stop: 09/08/24 08:59 Last Admin: 09/10/23 08:43 Dose: 8 units Isosorbide Mononitrate (Isosorbide Mononitrate 24hr Er 30 Mg Tab.Er.24h) 30 mg PO QAM [facility] Stop: 09/08/24 08:59 Last Admin: 09/10/23 08:43 Dose: 30 mg Morphine Sulfate (Morphine Sulfate 2 Mg/Ml Vial) 2 mg IV-PUSH Q3H PRN PRN Reason: Severe Pain Last Admin: 09/08/23 23:35 Dose: 2 mg Nitroglycerin (Nitroglycerin 0.4 Mg Tab.Subl) 0.4 mg SUBLINGUAL Q5M PRN PRN Reason: Chest Pain Stop: 09/07/24 15:10 Pantoprazole Sodium (Pantoprazole 40 Mg Tablet.) 40 mg PO BID [facility] Stop: 09/09/24 08:59 Last Admin: 09/10/23 08:43 [...] signed by Nette Holden MD> 09/10/23 1209 [facility] Work Phone: [phone]) 745-562312-06-2023 Progress note Author Barbie Osborn [facility] September 10, 2023 10:13am Note Date/Time September 10, 2023 1 0:13am [facility] [address] [place] [address] Hospitalist Progress Note Signed Patient: Dave Lugo MR#: [id number] : 1950 Acct:[id number] Age/Sex: 73 / M Adm Date: 3 Loc: Room: 3Z1380-1 Type: ADM IN Attending Dr: Barbie Osborn [...] signed by Barbie Osborn MD> 09/10/23 1013 [facility] Work Phone: 1([phone]) 882-932912-05-2023 Progress note Author Barbie Osborn [facility] September 09, 2023 4:54pm Note Date/Time September 09, 2023 4 :54pm [facility] [address] [place] [address] Hospitalist Progress Note Signed Patient: Dave Lugo MR#: [id number] : 1950 Acct:[id number] Age/Sex: 73 / M Adm Date: 3 Loc: Room: [address] [place] [address] Type: ADM IN Attending Dr: Barbie Osborn [...] Mg Tab.Chew PO 09/08/24 08:59 Not Given [facility] Atorvastatin Calcium 20 mg 09/08/23 22:00 09/08/23 21:58 Atorvastatin 20 Mg Tablet PO 09/07/24 21:59 20 mg QHS [facility] Administration Carvedilol 25 mg 09/08/23 17:00 09/09/23 07:57 Carvedilol 25 Mg Tablet PO 09/07/24 16:59 25 mg BID.WITH.MEALS [facility] Administration Cyanocobalamin 1,000 mcg 09/09/23 09:00 09/09/23 08:00 Cyanocobalamin 1,000 Mcg Tablet PO 09/08/24 08:59 Not Given QAM [facility] Dextrose 0 gm 09/08/23 13:53 Dextrose 50% In Water 25 Gm/50 Ml Syringe IV-PUSH 09/07/24 13:52 PRN PRN Hypoglycemia Enoxaparin Sodium 40 mg 09/09/23 10:00 09/09/23 09:21 Enoxaparin 40 Mg/0.4 Ml Syringe SUBCUT 09/08/24 09:59 Not Given DAILY@1000 [facility] Ferrous Sulfate 324 mg 09/09/23 09:00 09/09/23 08:00 Ferrous Sulfate 324 Mg Tablet. PO 09/08/24 08:59 Not Given QAM [facility] Glucose 0 gm 09/08/23 13:53 Dextrose 40% Gel 15 Gm Tube PO 09/07/24 13:52 PRN PRN Hypoglycemia Hydralazine HCl 50 mg 09/08/23 15:15 09/09/23 08:00 Hydralazine 50 Mg Tablet PO 09/07/24 15:14 Not Given BID [facility] Clevidipine 50 mg in 100 mls @ 2 mls/hr 09/08/23 12:00 09/09/23 11:15 Cleviprex IV 09/07/24 11:59 Not Given .Q24H [facility] Protocol 1 MG/HR Insulin Aspart 0 units 09/08/23 17:00 09/09/23 12:44 Insulin Aspart 300 Units/3 Ml Insuln.Pen SUBCUT 09/07/24 16:59 2 units TID.WM.HS [facility] Administration Protocol Insulin Glargine 8 units 09/09/23 09:00 09/09/23 08:00 Insulin Glargine 300 Units/3 Ml Insuln.Pen SUBCUT 09/08/24 08:59 Not Given DAILY [facility] Isosorbide Mononitrate 30 mg 09/09/23 09:00 09/09/23 08:19 Isosorbide Mononitrate 24hr Er 30 Mg Tab.Er.24h PO 09/08/24 08:59 Not Given QAM [facility] Morphine Sulfate 2 mg 09/08/23 13:53 09/08/23 [...] prophylaxis. Documented By: Barbie Osborn MD 09/09/23 8829 Signed By: <Electronically signed by Barbie Osborn MD> 09/09/23 3721 [facility] Work Phone: [phone] 424-132812-05-2023 Progress note Author Gabriela Florian [facility] September 09, 2023 4:22pm Note Date/Time September 09, 2023 4 :21pm [facility] [address] [place] [address] Cardiology Progress Note Signed Patient: Dave Lugo MR#: [id number] : 1950 Acct:[id number] Age/Sex: 73 / M Adm Date: 3 Loc: Room: [address] [place] [address] Type: ADM IN Attending Dr: Barbie Osborn [...] MPV Neut % (Auto) Lymph % (Auto) Williamson % (Auto) Eos % (Auto) Baso % (Auto) Nucleat RBC Rel Count Neut # (Auto) Lymph # (Auto) Williamson # (Auto) Eos # (Auto) Baso # [...] % (Auto) 60.8 Lymph % (Auto) 23.8 Williamson % (Auto) 12.2 Eos % (Auto) 2.4 Baso % (Auto) 0.8 Nucleat RBC Rel Count 0.0 Neut # (Auto) 5.7 Lymph # (Auto) 2.3 Williamson # (Auto) 1.1 H Eos # (Auto) [...] MPV Neut % (Auto) Lymph % (Auto) Williamson % (Auto) Eos % (Auto) Baso % (Auto) Nucleat RBC Rel Count Neut # (Auto) Lymph # (Auto) Williamson # (Auto) Eos # (Auto) Baso # [...] Status: Acute Documented By: Gabriela Florian MD, [facility] 3 1619 Signed By: <Electronically signed by [facility] EVERETTMaricruz Florian> 09/09/23 1622 [facility] Work Phone: [phone] 711-942612-05-2023 Consult note Author Nette Holden [facility] September 09, 2023 1:41pm Note Date/Time September 09, 2023 1 :25pm [facility] [address] [place], [place] [id number] Nephrology Consult Note Signed Patient: Dave Lugo MR#: [id number] : 1950 Acct:[id number] Age/Sex: 73 / M Adm Date: 3 Loc: Room: 4B4469-6 Type: ADM IN Attending Dr: Barbie Osborn [...] mg PO BID 08/08/20 [History Confirmed 09/08/23] [id number] gluconate 9 mg iron/15 mL (15 mL) [...] 81 Mg Tab.Chew) 81 mg PO QAM [facility] Stop: 09/08/24 08:59 Last Admin: 09/09/23 08:00 Dose: Not Given Atorvastatin Calcium (Atorvastatin 20 Mg Tablet) 20 mg PO QHS [facility] Stop: 09/07/24 21:59 Last Admin: 09/08/23 21:58 Dose: 20 mg Carvedilol (Carvedilol 25 Mg Tablet) 25 mg PO BID.WITH.MEALS [facility] Stop: 09/07/24 16:59 Last Admin: 09/09/23 07:57 Dose: 25 mg Cyanocobalamin (Cyanocobalamin 1,000 Mcg Tablet) 1,000 mcg PO QAM [facility] Stop: 09/08/24 08:59 Last Admin: 09/09/23 08:00 Dose: Not Given Dextrose (Dextrose 50% In Water 25 Gm/50 Ml Syringe) 0 gm IV-PUSH PRN PRN PRN Reason: Hypoglycemia Stop: 09/07/24 13:52 Enoxaparin Sodium (Enoxaparin 40 Mg/0.4 Ml Syringe) 40 mg SUBCUT DAILY@1000 [facility] Stop: 09/08/24 09:59 Last Admin: 09/09/23 09:21 Dose: Not Given Ferrous Sulfate (Ferrous Sulfate 324 Mg Tablet.Dr) 324 mg PO QAM [facility] Stop: 09/08/24 08:59 Last Admin: 09/09/23 08:00 Dose: Not Given Glucose (Dextrose 40% Gel 15 Gm Tube) 0 gm PO PRN PRN PRN Reason: Hypoglycemia Stop: 09/07/24 13:52 Hydralazine HCl (Hydralazine 50 Mg Tablet) 50 mg PO BID [facility] Stop: 09/07/24 15:14 Last Admin: 09/09/23 08:00 Dose: Not Given Clevidipine (Cleviprex) 50 mg in 100 mls @ 2 mls/hr IV .Q24H [facility]; Protocol Stop: 09/07/24 11:59 Last Admin: 09/09/23 11:15 Dose: Not Given Insulin Aspart (Insulin Aspart 300 Units/3 Ml Insuln.Pen) 0 units SUBCUT TID.WM.HS [facility]; Protocol Stop: 09/07/24 16:59 Last Admin: 09/09/23 12:44 Dose: 2 units Insulin Glargine (Insulin Glargine 300 Units/3 Ml Insuln.Pen) 8 units SUBCUT DAILY [facility] Stop: 09/08/24 08:59 Last Admin: 09/09/23 08:00 Dose: Not Given Isosorbide Mononitrate (Isosorbide Mononitrate 24hr Er 30 Mg Tab.Er.24h) 30 mg PO QAM [facility] Stop: 09/08/24 08:59 Last Admin: 09/09/23 08:19 Dose: Not Given Morphine Sulfate (Morphine Sulfate 2 Mg/Ml Vial) 2 mg IV-PUSH Q3H PRN PRN Reason: Severe Pain Last Admin: 09/08/23 23:35 Dose: 2 mg Nitroglycerin (Nitroglycerin 0.4 Mg Tab.Subl) 0.4 mg SUBLINGUAL Q5M PRN PRN Reason: Chest Pain Stop: 09/07/24 15:10 Pantoprazole Sodium (Pantoprazole 40 Mg Vial) 40 mg IV-PUSH BID [facility] Stop: 09/07/24 13:59 Last Admin: 09/09/23 08:02 [...] Skin: No rashes , warm to touch 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 Work Phone: [phone] 170-469412-05-2023 Consult note Author Joao Coley [facility] September 09, 2023 12:03pm Note Date/Time September 08, 2023 4 :16pm [facility] [address] [place] [address] Gastroenterology Consult Note Signed Patient: Dave Lugo MR#: [id number] : 1950 Acct:[id number] Age/Sex: 73 / M Adm Date: 3 Loc: Room: [address] [place] [address] Type: ADM IN Attending Dr: Barbie Osborn [...] negative unless noted below or in HPI [facility] Medical History Chronic kidney disease, stage [...] mg PO BID 08/08/20 [History Confirmed 09/08/23] orkfnsds-wbfk-kohvduy gluconate 9 mg iron/15 mL (15 mL) [...] % (Auto) 63.3 Lymph % (Auto) 21.4 Williamson % (Auto) 10.2 Eos % (Auto) 4.4 Baso % (Auto) 0.7 Nucleat RBC Rel Count 0.1 Neut # (Auto) 5.5 Lymph # (Auto) 1.9 Williamson # (Auto) 0.9 H Eos # (Auto) [...] MPV Neut % (Auto) Lymph % (Auto) Williamson % (Auto) Eos % (Auto) Baso % (Auto) Nucleat RBC Rel Count Neut # (Auto) Lymph # (Auto) Williamson # (Auto) Eos # (Auto) Baso # [...] MPV Neut % (Auto) Lymph % (Auto) Williamson % (Auto) Eos % (Auto) Baso % (Auto) Nucleat RBC Rel Count Neut # (Auto) Lymph # (Auto) Williamson # (Auto) Eos # (Auto) Baso # [...] signed by MD Joao Coley> 09/09/23 1203 [facility] Work Phone: 1(307) 960-556212-05-2023 [facility] Consult note Author Gabriela Florian [facility] September 08, 2023 3:25pm Note Date/Time September 08, 2023 3 :23pm [facility] [address] [place] [address] Cardiology Consult Note Signed Patient: Dave Lugo MR#: [id number] : 1950 Acct:[id number] Age/Sex: 73 / M Adm Date: 3 Loc: Room: [address] [place] [address] Type: ADM IN Attending Dr: Barbie Osborn MD Copies to: Gabriela Florian MD, [facility] DO Barbie Roca MD~ Cardiology HPI History [...] obstruction. All other review of systems unremarkable. [facility] Medical History Chronic kidney disease, stage [...] mg PO BID 08/08/20 [History Confirmed 09/08/23] lochnesc-hvem-shmvgmk gluconate 9 mg iron/15 mL (15 mL) [...] x10E3/uL Lymph # (Auto) 1.9 (1.00-4.8) x10E3/uL Williamson # (Auto) 0.9 H (0.0-0.8) x10E3/uL Eos [...] by MD KUO Gabriela Florian> 09/08/23 1525 [facility] Work Phone: 1(221) 555-888812-04-2023 Progress note Author Martínez Briceño [facility] September 08, 2023 3:14pm Note Date/Time September 08, 2023 3 :14pm [facility] [address] [place] [id number] Progress Note Signed Patient: Dave Lugo MR#: [id number] : 1950 Acct:[id number] Age/Sex: 73 / M Adm Date: 3 Loc: Room: [address] [place] [address] Type: ADM IN Attending Dr: Barbie Osborn [...] signed by MD Martínez Briceño> 09/08/23 1514 [facility] Work Phone: 1(385) 503-685712-04-2023 History and physical note Author Barbie Osborn [facility] September 08, 2023 2:39pm Note Date/Time September 08, 2023 2 :39pm [facility] [address] [place] [address] Hospitalist H&P Signed Patient: Dave Lugo MR#: [id number] : 1950 Acct:[id number] Age/Sex: 73 / M Adm Date: 3 Loc: 4C Room: [address] [place] [address] Type: ADM IN Attending Dr: Barbie Osborn [...] negative unless noted below or in HPI [facility] Medical History Chronic kidney disease, stage [...] mg PO BID 08/08/20 [History Confirmed 12/31/22] xcaiblbc-rfse-eqakedh gluconate 9 mg iron/15 mL (15 mL) [...] % (Auto) 21.4 % (.) 09/08/23 06:30 Williamson % (Auto) 10.2 % (.) 09/08/23 06:30 Eos % (Auto) 4.4 % (.) 09/08/23 06:30 Baso % (Auto) 0.7 % (.) 09/08/23 06:30 Nucleat RBC Rel Count 0.1 /100 WBC (0-0.5) 09/08/23 06:30 Neut # (Auto) 5.5 x10E3/uL (1.8-7.7) 09/08/23 06:30 Lymph # (Auto) 1.9 x10E3/uL (1.00-4.8) 09/08/23 06:30 Williamson # (Auto) 0.9 x10E3/uL (0.0-0.8) H 09/08/23 [...] signed by Barbie Osborn MD> 09/08/23 1439 [facility] Work Phone: 1(570) 157-549111-16-2023 Evaluation note* Encounter Date Diagnosis Assessment Notes [...] wean from splint and slowly progress activity [facility] Other 10-26-2023 Evaluation note* Encounter Date Diagnosis [...] the splint for activities. Call with questions/concerns. [facility] Other 10-19-2023 Evaluation note* Encounter Date Diagnosis [...] and elevate to decrease pain and swelling. [facility] Other 09-13-2023 Evaluation note* Encounter Date Diagnosis Assessment Notes Treatment Notes Treatment Clinical Notes Jun, Spinal stenosis at L4-L5 level (ICD-10 - M48.061) Mr Lugo is doing well Status post 9 months PLIF. Xray reviewed which shows good hardware placement and bony alignment. Advised to follow up in 3 months. Jun, History of fusion of lumbar spine (ICD-10 - Z98.1) [facility] Other 08-28-2023 Evaluation note* Encounter Date Diagnosis Assessment Notes Treatment Notes Treatment Clinical Notes May, Type 2 diabetes mellitus with diabetic chronic kidney disease (ICD-10 - E11.22) over all doing well. continue as is. no lows. May, Stage 3b chronic kidney disease (CKD) (ICD-10 - N18.32) up to date with labs. May, Other encouraged flu, covid booster, RSV vaccines at pharmacy this fall. [facility] Other 08-17-2023 History general Narrative - Reported* Type Description Date Medical History High blood pressure Medical History T2DM Medical History PR Medical History 05/22 EGD and Colonos copy-2 [...] heart attack 08/24/20 Hospitalization History see above [facility] Other 08-17-2023 History general Narrative - Reported* Type Description Date Medical History High blood pressure Medical History T2DM Medical History PR Medical History 05/22 EGD and Colonos copy-2 [...] History see above Hospitalization History stomach pain [facility] Other 08-01-2023 Evaluation note* Encounter Date Diagnosis [...] 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 Follow up in 6 months. [facility] Other 02-20-2023 Evaluation note* Encounter Date Diagnosis Assessment Notes Treatment Notes Treatment Clinical Notes Nov, Lumbar radiculopathy (ICD-10 - M54.16) doing much better since surgery. Nov, Type 2 diabetes mellitus with diabetic chronic kidney disease (ICD-10 - E11.22) 1 month too early for a1c, checking sugars which have been good. will recheck in 3 months-he is in agreement. [facility] Other 01-12-2023 Evaluation note* Encounter Date Diagnosis [...] History of lumbar fusion (ICD-10 - Z98.1) [facility] Other 01-01-2023 Progress note Author Kali Isaac [facility] October 06, 2022 2:31pm Note Date/Time October 06, 2022 10 :42am [facility] [address] [place] [address] Hospitalist Progress Note Signed Patient: Dave Lugo MR#: [id number] : 1950 Acct:[id number] Age/Sex: 72 / M Adm Date: 2 Loc: 4N Room: 6K6509-7 Type: REG SDC Attending Dr: Clemente Miller [...] Insuln.Pen SUBCUT 10/02/23 14:12 Not Given TID.WM.HS [facility] Protocol Insulin Glargine 10 units 10/06/22 09:00 [...] signed by Kali Isaac, > 10/06/22 1431 [facility] Work Phone: 1(198) 974-143001-01-2023 Progress note Author Clemente Miller [facility] October 06, 2022 8:55am Note Date/Time October 06, 2022 8: 55am [facility] [address] [place] [address] Neurosurgery Progress Note Signed Patient: Dave Lugo MR#: [id number] : 1950 Acct:[id number] Age/Sex: 72 / M Adm Date: 2 Loc: 4N Room: 5L5380-6 Type: REG MAC Attending Dr: Clemente Miller MD Copies to: [...] signed by MD Clemente Miller> 10/06/22 0855 [facility] Work Phone: 1(630) 235-356612-31-2022 Progress note Author Roberto Cullen [facility] October 05, 2022 11:34am Note Date/Time October 05, 2022 11:34am [facility] [address] [place] [address] Hospitalist Progress Note Signed Patient: Dave Lugo MR#: [id number] : 1950 Acct:[id number] Age/Sex: 72 / M Adm Date: 2 Loc: 4N Room: [address] [place] [address] Type: REG SDC Attending Dr: Clemente Miller [...] Ml Insuln.Pen SUBCUT 10/02/23 14:12 Not Given TID.WM.[facility] Protocol Insulin Glargine 20 units 10/03/22 21:00 [...] signed by Roberto Cullen DO> 10/05/22 1134 [facility] Work Phone: 1([phone] 150-177712-31-2022 Progress note Author Clemente Miller [facility] October 05, 2022 9:34am Note Date/Time October 05, 2022 9:34am [facility] [address] [place] [address] Neurosurgery Progress Note Signed Patient: Dave Lugo MR#: [id number] : 1950 Acct:[id number] Age/Sex: 72 / M Adm Date: 2 Loc: 4N Room: 4W6498-8 Type: REG [facility] Attending Dr: Clemente Miller MD Copies to: [...] Code(s): I25.10 - Atherosclerotic heart disease of [place] coronary artery without angina pectoris Status: Acute (6) Hyperlipemia: Code(s): E78.5 - Hyperlipidemia, unspecified Status: Acute (7) Leg weakness, bilateral: Code(s): R29.898 - Other symptoms and signs involving the musculoskeletal system Status: Acute Documented By: Clemente Miller MD 10/05/22931 Signed By: <Electronically signed by MD Clemente Miller> 10/05/22933 [facility] Work Phone: 1(347) 836-921012-30-2022 Progress note Author Beth Lowe [facility] October 04, 2022 11:41am Note Date/Time October 04, 2022 11:36am [facility] [address] [place] [address] Neurosurgery Progress Note Signed Patient: Dave Lugo MR#: [id number] : 1950 Acct:[id number] Age/Sex: 72 / M Adm Date: 2 Loc: Room: [address] [place] [address] Type: REG SDC Attending Dr: Clemente Miller [...] % (Auto) 87.1, Lymph % (Auto) 6.1, Williamson % (Auto) 6.6, Eos % (Auto)0.0, Baso % (Auto) 0.2, Nucleat RBC Rel Count 0.0, Neut # (Auto) 14.0 H, Lymph #(Auto) 1.0, Williamson # (Auto) 1.1 H, Eos # (Auto) [...] Code(s): I25.10 - Atherosclerotic heart disease of [place] coronary artery without angina pectoris Status: Acute (6) Hyperlipemia: Code(s): E78.5 - Hyperlipidemia, unspecified Status: Acute (7) Leg weakness, bilateral: Code(s): R29.898 - Other symptoms and signs involving the musculoskeletal system Status: Acute Documented By: DEREK Ohara 10/04/22 6954 Signed By: <Electronically signed by DEREK Lowe> 10/04/22 1141 [facility] Work Phone: 1(386) 308-108512-30-2022 Progress note Author Kali Isaac [facility] October 04, 2022 10:20am Note Date/Time October 04, 2022 10:20am [facility] [address] [place] [address] Hospitalist Progress Note Signed Patient: Dave Lugo MR#: [id number] : 1950 Acct:[id number] Age/Sex: 72 / M Adm Date: 2 Loc: 4N Room: [address] [place] [address] Type: REG SDC Attending Dr: Clemente Miller [...] signed by Kali Isaac DO> 10/04/22 1020 [facility] Work Phone: [phone]) [phone] Consult note Author Kali Isaac [facility] October 03, 2022 9:46am Note Date/Time October 03, 2022 9:46am [facility] [address] [place] [address] Hospitalist Consult Note Signed Patient: Dave Lugo MR#: [id number] : 1950 Acct:[id number] Age/Sex: 72 / M Adm Date: 2 Loc: Room: [address] [place] [address] Type: REG SDC Attending Dr: Clemente Miller [...] mg PO BID 08/08/20 [History Confirmed 10/02/22] zmomnofi-gpeq-wpklljm gluconate 9 mg iron/15 mL (15 mL) [...] DO 38 Signed By: <Electronically signed by aKli Isaac DO> 10/03/22945 [facility] Work Phone: 1(411) 973-416012-29-2022 Progress note Author Beth Lowe [facility] October 03, 2022 7:40am Note Date/Time October 03, 2022 7:38am [facility] [address] [place] [address] Neurosurgery Progress Note Signed Patient: Dave Lugo MR#: [id number] : 1950 Acct:[id number] Age/Sex: 72 / M Adm Date: 2 Loc: 4N Room: 7U9752-5 Type: REG SDC Attending Dr: Clemente Miller [...] <Electronically signed by DEREK Lowe> 10/03/22 0740 [facility] Work Phone: 1([phone]) 917-507911-14-2022 Evaluation note* Encounter Date Diagnosis Assessment Notes [...] in agreement. reliable at checking sugars. 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 Miller, apparently waiting cardiac clearance. [facility] Other 11-10-2022 Evaluation note* Encounter Date Diagnosis Assessment Notes Treatment Notes Treatment Clinical Notes Aug, Coronary artery disease involving [place] coronary artery of [place] heart without angina pectoris (ICD-10 - I25.10) [...] Aug, Foot drop, left (ICD-10 - M21.372) [facility] Other 09-15-2022 Evaluation note* Encounter Date Diagnosis Assessment Notes Treatment Notes Treatment Clinical Notes Jun, Coronary artery disease involving [place] coronary artery of [place] heart without angina pectoris (ICD-10 - I25.10) [...] Jun, Foot drop, left (ICD-10 - M21.372) [facility] Other 08-29-2022 Evaluation note* Encounter Date Diagnosis Assessment Notes Treatment Notes Treatment Clinical Notes May, Spinal stenosis at L4-L5 level (ICD-10 - M48.061) May, Spinal stenosis of lumbar region with neurogenic claudication (ICD-10 - M48.062) [facility] Other 08-17-2022 History general Narrative - Reported* Type Description Date Medical History High blood pressure Medical History T2DM Medical History PR Medical History 05/22 EGD and Colonos copy-2 cm tubular adenoma removed Medical History injections - back pain Surgical History neck Surgical History first rib removed Surgical History lower back - injections Surgical History cardiac stents - Dr. Florian Surgical History Colonoscopy 09/12/21 Hospitalization History heart attack 08/24/20 Hospitalization History see above [facility] Other 08-17-2022 History general Narrative - Reported* Type Description Date Medical History High blood pressure Medical History T2DM Medical History PR Medical History 05/22 EGD and Colonos copy-2 [...] attack 08/24/20 17 Hospitalization History see above [facility] Other 08-09-2022 Evaluation note* Encounter Date Diagnosis [...] Z12.5) May, Hypertension, essential (ICD-10 - I10) [facility] Other 05-09-2022 Evaluation note* Encounter Date Diagnosis [...] chronic kidney disease (CKD) (ICD-10 - N18.32) [facility] Other 02-08-2022 Evaluation note* Encounter Date Diagnosis [...] changes his mind. no red flag symptoms. [facility] Other 01-27-2022 Evaluation note* Encounter Date Diagnosis Assessment Notes Treatment Notes Treatment Clinical Notes Oct, Type 2 diabetes mellitus with diabetic chronic kidney disease (ICD-10 - E11.22) [facility] Other 01-27-2022 Evaluation note* Encounter Date Diagnosis Assessment Notes Treatment Notes Treatment Clinical Notes Oct, Thyroid nodule (ICD-10 - E04.1) [facility] Other 01-26-2022 Evaluation note* Encounter Date Diagnosis Assessment Notes Treatment Notes Treatment Clinical Notes Oct, Hemorrhoids (ICD-10 - K64.9) Oct, Diverticulosis (ICD-10 - K57.90) Oct, Gas (ICD-10 - R14.3) REASSURED CAN USE OTC PROBIOTIC Oct, Other REPEAT COLON IN 5 YEARS [facility] Other 11-23-2021 Evaluation note* Encounter Date Diagnosis Assessment Notes Treatment Notes Treatment Clinical Notes Aug, Screening for colon cancer (ICD-10 - Z12.11) [facility] Other 11-04-2021 Evaluation note* Encounter Date Diagnosis [...] back. did not discuss this in office. [facility] Other discharge summary Author Barbie Osborn [facility] September 11, 2023 12:46pm Note Date/Time September 11, 2023 1 2:34pm [facility] [address] [place] [address] Discharge Summary Signed Patient: Dave Lugo MR#: [id number] : 1950 Acct:[id number] Age/Sex: 73 / M Adm Date: 3 Loc: Room: [address] [place] [address]: Barbie Osborn MD Copies to: [...] % (Auto) 60.7, Lymph % (Auto) 21.8, Williamson % (Auto) 12.6, Eos % (Auto) 4.4, Baso % (Auto) 0.5, Nucleat RBC Rel Count 0.0, Neut # (Auto) 4.8, Lymph # (Auto) 1.7, Williamson # (Auto) 1.0 H, Eos # (Auto) 0.4, Baso # (Auto) 0.0 09/10/23 21:16: POC Glucose 183 09/10/23 16:12: POC Glucose 193 09/10/23 04:39: CA 19-9 Antigen 23 09/09/23 13:43: Serum Total Protein 5.6 L, Albumin (Send Out) 3.2, Globulin (PEP) 2.4, Albumin/Globulin (PEP) 1.3, Geegw-4-Wqxqahxqa 0.2, Btvlm-2-Goajjshmw 0.7, Beta Globulins 0.7, Gamma Globulins 0.8, M-Donaldo Not observed, PEP Note , IgG 793, IgA 159, IgM 47, Serum Immunofixation , Free [place] LC, Quant 52.6 H, Free Lambda LC, Quant 28.0 H, Free [place]/Lambda Ratio 1.88 H Exam Physical Exam Vital [...] Chest Pain) 30 Days Qty: 30 2RF olxjzopx-dpn-nuiqclo gluconate [Centrum] 9 mg iron/ 15 mL [...] signed by Barbie Osborn MD> 09/11/23 1246 [facility] Work Phone: Evaluation noteNo InformationNort Groupiter Other Evaluation noteNo assessment information available [facility] Work Phone: Evaluation note* Diagnosis Onset Date Resolution Status Accelerated hypertension acu te CAD (coronary artery disease) acute Diabetes mellitus with hyperglycemia acute Hyperlipemia acute Leg weakness, bilateral acut e Lumbar stenosis with neurogenic claudication acute Nausea acute Spondylolisthesis, lumbar region acute [facility] Work Phone: Evaluation note* Diagnosis Onset Date Resolution Status Abdominal pain acute Accelerated hypertension acu te Acute kidney injury superimposed on CKD acute MEAGHAN (acute kidney injury) ac ivan Anemia of renal disease acut e Atypical chest pain acute CAD (coronary artery disease) acute Chronic kidney disease, stage III (moderate) acute Chronic pancreatitis acute Duodenitis acute Dyslipidemia acute Elevated troponin acute [id number] acute Hypertensive emergency acute Proteinuria acute Stented coronary artery acut e Type 2 diabetes mellitus wit h diabetic chronic kidney disease acute Diabetes chronic [facility] Work Phone: Evaluation note* Diagnosis 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of [place] coronary artery of [place] heart without angina pectoris Essential hypertension Unspecified essential hypertension History of PR (myocardial infarction) Old myocardial infarction Mixed hyperlipidemia S/P PTCA (percutaneous transluminal coronary angioplasty) Postsurgical percutaneous transluminal coronary angioplasty status Stage 3a chronic kidney disease (CMS/HCC) Current smoker on some days Type 2 diabetes mellitus without complication, with long-term current use of insulin (CMS/HCC) Overweight with body mass index (BMI) of 27 to 27.9 in adult Atherosclerotic heart disease of [place] coronary artery without angina pectoris documented in this encounter [facility] Work Phone: Evaluation note* Diagnosis Onset Date Resolution Status Chronic kidney disease, stage III (moderate) acute Hyperlipemia acute Type 2 diabetes mellitus wit h diabetic chronic kidney disease acute [facility] Work Phone: Evaluation note* Diagnosis Onset Date Resolution Status Chronic kidney disease, stage III (moderate) acute Hyperlipemia acute Type 2 diabetes mellitus wit h diabetic chronic kidney disease acute Acute kidney injury superimposed on CKD acute Epigastric pain acute [facility] Work Phone: Evaluation note* Diagnosis Onset Date Resolution Status Chronic kidney disease, stage III (moderate) acute Hyperlipemia acute Type 2 diabetes mellitus wit h diabetic chronic kidney disease acute Acute kidney injury superimposed on CKD acute Epigastric pain acute Type 2 diabetes mellitus wit h diabetic chronic kidney disease acute [facility] Work Phone: Evaluation note* Diagnosis Onset Date [...] wit h diabetic chronic kidney disease acute [facility] Work Phone: Evaluation note* Diagnosis Onset Date Resolution Status Chronic kidney disease, stage III (moderate) acute HTN (hypertension) acute Medicare annual wellness visit, subsequent acute Type 2 diabetes mellitus wit h diabetic chronic kidney disease acute Anemia of renal disease acut e Chronic kidney disease, stage III (moderate) acute Dyslipidemia acute [id number] acute Secondary hyperparathyroidism acute Type 2 diabetes mellitus wit h diabetic chronic kidney disease acute [facility] Work Phone: Hisibgg general Narrative - Reported* Type Description Date [...] heart attack 08/24/20 Hospitalization History see above [facility] Other Hissron general Narrative - Reported* Type Description Date [...] attack 08/24/20 17 Hospitalization History see above [facility] Other Hisoinj general Narrative - Reported* Type Description Date Medical History High blood pressure Medical History T2DM Medical History PR Medical History 05/22 EGD and Colonos copy-2 cm tubular adenoma removed Medical History injections - back pain Surgical History neck Surgical History first rib removed Surgical History lower back - injections Surgical History cardiac stents - Dr. Florian Surgical History Colonoscopy 09/12/21 Hospitalization History heart attack 08/24/20 17 Hospitalization History see above [facility] Other Hiswjvb general Narrative - Reported* Type Description Date Medical History High blood pressure Medical History T2DM Medical History PR Medical History 05/22 EGD and Colonos copy-2 [...] attack 08/24/20 17 Hospitalization History see above [facility] Other Hisawwq general Narrative - Reported* Type Description Date Medical History High blood pressure Medical History T2DM Medical History PR Medical History 05/22 EGD and Colonos copy-2 [...] History see above Hospitalization History stomach pain [facility] 3 [facility] Other Hospital Discharge instructions Additional Instructions Take [...] swelling pain fever chills or any other [facility] Work Phone: Hospital Discharge instructionsAmbulatory Orders* [...] it does not do not use the [facility]one[facility] Work Phone: Hospital Discharge instructions Additional Instructions Rest ice elevate your hand and knee Keep the splint on the hand do not remove apply ice keep it clean and dry Wear the knee immobilizer anytime you are up moving around to support and stabilize the knee Take 1 hydrocodone every 6 hours for severe pain Follow-up with [facility] Return to the ER for worsening pain additional injuries or any other concerns [facility] Work Phone: Hospital Discharge instructions Additional Instructions Monitor glucose levels as before.[facility] Work Phone: Reason for referral (narrative)* Consultation (Routine) - Authorized Specialty Diagnoses / Procedures Referred By Contac t Referred To Contact Cardiology Diagnoses 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of [place] coronary artery of [place] heart without angina pectoris Procedures Follow Up In Cardiology Gabriela Florian MD [address] [facility] 2, [address] [address] Gabriela Florian MD [address] [facility], [address] [place] [address] Referral ID Status Reason Start Date Expiration Date V isits Requested Visits Authorized [id number] Authorized 10/16/2023 10/15/2024 1 1 [facility] Work Phone: Summary Purpose Family History Unknown [...] lumbar spinal surgery by Dr. Miller at [facility] with no complication he continuesto wear his [...] at L 4-L5 level (M48.061) Referral Organization [facility] urosurgery Referring Provider First Name Clemente Referring Provider Last Name Angela Referring Provider Specialty Neurologica l Surgery [facility] Referred Address [address] [place] [address] Referred Provider Specialty Physical The rapist Referral Priority Routine Reason left lumbar radiculo riana, spinal stenosis Diagnosis 1 Spinal stenosis of l umbar region with neurogenic claudication (M48.062) Referral Organization [facility] Referring Provider First Name Lolita Referring Provider Last Name Kyree Referring Provider Specialty [facility] [employer] Referred Organization Unknown Facility Referred Provider Specialty Neurological Surgery Referral Priority Routine Reason thyroid nodule 2. 2cm, has been monitoring with with previous PCP Diagnosis 1 Thyroid nodule (E04. 1) [facility] Referring Provider First Name Lolita Referring Provider Last Name Kyree Referring Provider Specialty [facility] [employer] Referred Organization [facility] Referred Provider Jose Badillo Referred Address ,[place], [place],[address] Referred Provider Specialty Otolaryngolo gy Referral Priority Routine General Notes Ligia Amaro 03:38:42 PM >waiting for labs to be drawn prior to sending. [employer] per cert #[id number] per [employer]. Chief Complaint and Reason for [...] (moderate) Chronic pancreatitis Duodenitis Dyslipidemia Elevated troponin [id number] Hypertensive emergency Proteinuria Stented coronary artery Type [...] (moderate) Chronic pancreatitis Duodenitis Dyslipidemia Elevated troponin [id number] Hypertensive emergency Proteinuria Stented coronary artery Type [...] (moderate) Chronic pancreatitis Duodenitis Dyslipidemia Elevated troponin [id number] Hypertensive emergency Proteinuria Stented coronary artery Type [...] Complaint 3 month follow-[facility] Reason for Visit Chronic kidney disea se, [...] Chronic kidney disease, stage III (moderate) Dyslipidemia [id number] Secondary hyperparathyroidism Type 2 diabetes mellitus with diabetic chronic kidney disease Additional Source Comments (unrecognized sect ion and content) No Status Records FoundNo Status Records FoundNo Status Records FoundNo Status Records FoundNo Status Records FoundNo Status Records Found INFORMATION SOURCE (unrecogn ized section and content) DATE CREATED AUTHOR 03/31/2018 [facility] DATE CREATED AUTHOR AUTHOR'S ORGANIZ ATION 09/27/2020 [facility] DATE CREATED AUTHOR AUTHOR'S ORGANIZ ATION 04/23/2023 [facility] DATE CREATED AUTHOR AUTHOR'S ORGANIZ ATION 04/23/2023 [employer] DATE CREATED AUTHOR AUTHOR'S ORGANIZ ATION 10/19/2023 [facility] DATE CREATED AUTHOR AUTHOR'S ORGANIZ ATION 04/02/[address] [facility] REASON FOR VISIT (unrecogniz ed section and content) Reason Comments Follow-up 6m Care Teams (unrecognized sec tion and content) Team Status: Inactive Member Role Status Dates Lolita Adorno , DO Primary Care Provider Active Joycelyn Waggoner , [facility]- Emergency Provider Active Team Status: Active Member [...] MD Other Provider Active Daly King , INTERMISSION COORDINATOR Other Provider Active Troy Mendoza , DO Other Provider Active Rusty Gore MD Other Provider Active Kali Isaac , DO Other Provider Active Reyes [...] MD Other Provider Active Lea Jett , HARDWARE ASSEMBLER-C Other Provider Active Kamron Small MD Other Provider Active Alejandro Pastrana MD Other Provider Active Adrien Orona MD Other Provider Active Barbara Watts , DO Other Provider Active Stephane Rodrigez , DO Other Provider Active Jose Oscar , DO Other Provider Active Dayanna Wayne INTERMISSION COORDINATOR Other Provider Active Roberto Cullen , DO Other Provider Active Cem Murillo MD Other Provider Active Ruthann Dickson INTERMISSION COORDINATOR Other Provider Active Ro Hart , [place] Other Provider Active Team Status: Inactive Member Role Status Dates Lolita Adorno , DO Primary Care Provider Active Gabriela Florian MD Attending Provider Active Team Status: Inactive Member Role Status Dates Lolita Adorno , DO Primary Care Provider Active Beth Lowe HARDWARE ASSEMBLER-C Attending Provider Active Team Status: Inactive Member [...] MD Other Provider Active Yossi Rodriguez , INTERMISSION COORDINATOR Other Provider Active Kevin Li MD Other Provider Active Omar Strong MD Other Provider Active Khushboo Hines MD Other Provider Active Nette Holden MD Other Provider Active Mirza Causey MD Other Provider Active David Mcleod MD Other Provider Active Tito Martinez MD Other Provider Active Doloresmagdalene Ramirez , INTERMISSION COORDINATOR ACNP-BC Other Provider Active Parrish Mendosa MD Other Provider Active Martínez Briceño MD Other Provider Active Jason Laird MD Other Provider Active Tej Reynoso , DO Other Provider Active Daly Giraldo MD Other Provider Active Juan David Bustamante MD Other Provider Active Clement Campa MD Other Provider Active oDnta Ochoa , DO Other Provider Active Team Status: Inactive Member Role Status Dates Lolita Adorno DO Primary Care Provider, Attendi ng Provider Active Barbie Osborn MD Referring Provider Active Acoustical Tile Patternmaker Relationship Specialty Start Date End Date Lolita Adorno DO [address] [place] [address] PCP - General 10/06/99 Team Status: Inactive [...] December 26, 2023 End: December 26, 2023 Joao Coley MD Attending Provider Active Start: December [...] BE BASED ON THE PRIMARY CLINICAL RECORDS. [facility] [employer] provides no warranty or guarantee of the accuracy or completeness of information in this document.
[2024-05-22] MEDS: 0.9 % SODIUM CHLORIDE 1,000 ML 100 ML IV (03:36)
[2024-05-22 06:59] LABS: Basophils Percent Auto 0.2 % (0.2-2.0); Eosinophils Absolute Auto 0.2 10^3/uL (0.0-0.7); Eosinophils Percent Auto 1.4 % (0.9-7.0); Hematocrit 32.7 % (42.0-54.0); Hemoglobin 10.6 g/dL (14.0-18.0); Immature Granulocytes Abs Auto 0.04 10^3/uL (0.00-0.03); Immature Granulocytes Pct Auto 0.4 % (0.0-0.5); Lymphocytes Absolute Auto 1.7 10^3/uL (1.2-3.8); Lymphocytes Percent Auto 15.9 % (20.5-60.0); Mean Corpuscular HGB Conc 32.4 g/dL (29.9-35.2); Mean Corpuscular Hemoglobin 27.9 pg (25.9-34.0); Mean Corpuscular Volume 86.1 fL (80.0-94.0); Mean Platelet Volume 10.4 fL (9.5-13.5); Monocytes Absolute Auto 1.5 10^3/uL (0.3-0.8); Monocytes Percent Auto 14.6 % (1.7-12.0); Neutrophils Percent Auto 67.5 % (43.0-75.0); Platelet Count 220 10^3/uL (150-450); Red Cell Distribution Width 12.7 % (11.0-15.0); White Blood Count 10.4 10^3/uL (4.0-11.0)
[2024-05-22 07:19] LABS: INR 1.03; Partial Thromboplastin Time 36.9 sec (22.3-36.2); Prothrombin Time 10.9 sec (9.0-11.6)
[2024-05-22 07:56] LABS: Alanine Aminotransferase 18 U/L (16-63); Albumin Globulin Ratio 0.8; Albumin Level 2.5 g/dL (3.4-5.0); Alkaline Phosphatase 76 U/L (46-116); Anion Gap 13.9; Aspartate Amino Transferase 11 U/L (15-37); BUN Creatinine Ratio 19.3; Bilirubin Total 0.7 mg/dL (0.2-1.0); Calcium 8.2 mg/dL (8.5-10.1); Carbon Dioxide 20.7 mmol/L (21.0-32.0); Chloride 107 mmol/L (98-107); Estimated GFR (African America 33 (>=60); Estimated GFR (Non-African Ame 28 (>=60); Globulin 3.3 g/dL; Glucose 78 mg/dL (74-106); Magnesium 1.7 mg/dL (1.8-2.4); Phosphorus 3.9 mg/dL (2.6-4.7); Potassium 3.6 mmol/L (3.5-5.1); Sodium 138 mmol/L (136-145); Total Protein 5.8 g/dL (6.4-8.2)
[2024-05-22] MEDS: HYDRALAZINE HCL 50 MG TABLET 75 MG PO (09:06)
[2024-05-22] MEDS: ISOSORBIDE MONONITRATE 30 MG TAB.ER.24H PO (09:06)
[2024-05-22] MEDS: CARVEDILOL 25 MG TABLET PO (09:06)
[2024-05-22] MEDS: OMEPRAZOLE 40 MG CAPSULE.DR PO (09:06)
[2024-05-22] MEDS: FERROUS SULFATE 325 MG TABLET PO (09:06)
[2024-05-22] MEDS: ATORVASTATIN CALCIUM 20 MG TABLET PO (09:06)
[2024-05-22] MEDS: ASPIRIN 81 MG TABLET.DR PO (09:07)
[2024-05-22] MEDS: INSULIN DETEMIR 300 UNIT/3 ML INSULN.PEN 10 UNIT SUBQ (09:07)
--- NOTE | 2024-05-22 11:38 | P.HP_ITS ---
HPI H&P: HPI History of Present Illness Chief complaint: weakness Narrative: History of presenting illness and Hospital course: 74-year-old male presented to ED last evening with malaise, generalized weakness, along with aches and pains in multiple joints for past 1 week. Patient reports pain in multiple joints including bilateral elbows, shoulder along with midthoracic back pain. He denies cough, shortness of breath, fever, abdominal pain, nausea, vomiting, constipation, diarrhea. He was evaluated in ER and was found to have mild leukocytosis and acute kidney injury. He had CT chest, abdomen pelvis and abdominal ultrasound with no acute pathology noted. There is no evidence of underlying infectious etiology on initial workup. There is no evidence of pneumonia or UTI. He also has no focal signs and symptoms to offer. He denies any recent trauma or falls. He was admitted overnight for pain control, IV hydration. His leukocytosis has resolved. Renal function has also improved and more or less close to his baseline. Patient reports subjectively feeling better but he still has aches and pains in multiple joints. He has no acute indication for inpatient hospital admission is medically stable for discharge. Patient will need follow-up with PCP in 1 to 2 weeks. Opioid HPI Opioid Management Most Recent Pain and Opioid Data: Last Pain Scale 5 05/22/24 10:42 Last Pain Intensity 3 05/22/24 10:42 Last Pain Assessment 05/22/24 11:00 Last ED Pain Assessment 05/21/24 19:47 Last ORT Total Score 0 05/22/24 01:47 Last ORT Risk Category Low Risk 05/22/24 01:47 Review of Systems ROS Status of ROS 10 or more systems reviewed and unremark able except as noted in history and below [facility] Medical History (Updated 05/22/24 @ 11:48 by Shaikh Adry MD) Chronic neck and back pain ?M54.2 - Cervicalgia (ICD-10) ?M54.9 - Dorsalgia, unspecified (ICD-10) ?G89.29 - Other chronic pain (ICD-10) HTN (hypertension) ?I10 - Essential (primary) hypertension (ICD-10) HLD (hyperlipidemia) ?E78.5 - Hyperlipidemia, unspecified (ICD-10) Type 2 diabetes mellitus ?E11.9 - Type 2 diabetes mellitus without complications (ICD-10) CAD (coronary artery disease) ?I25.10 - Atherosclerotic heart disease of kenaitze coronary artery without angina pectoris (ICD-10) CKD (chronic kidney disease) stage 4, GFR 15-29 ml/min ?N18.4 - Chronic kidney disease, stage 4 (severe) (ICD-10) Surgical History (Updated 05/22/24 @ 11:46 by Shaikh Adry MD) History of lumbar fusion ?Z98.1 - Arthrodesis status (ICD-10) H/O neck surgery ?Z98.890 - Other specified postprocedural states (ICD-10) Social History (Updated 05/22/24 @ 11:46 by Shaikh Adry MD) Within the past year, how often did you have a drink containing alcohol: monthly or less Within the past year, how many standard drinks containing alcohol did you have on a typical day: 1 or 2 Within the past year, how often did you have six or more drinks on one occasion: never Total score: 0 Score interpretation: A score less than 4 is consistent with normal alcohol consumption. Smoking status: Current every day smoker Non-prescribed substance use: denies use Highest level of school completed/degree received: high school graduate Meds Home Medications and Allergies Home Medications ?Medication ?Instructions ?Recorded ?Confirmed ?Type aspirin 81 mg tablet,delayed 81 mg PO DAILY 05/21/24 05/21/24 History release atorvastatin 20 mg tablet 20 mg PO .QHS 05/21/24 05/22/24 History carvedilol 25 mg tablet 25 mg PO Q12H 05/21/24 05/21/24 History cyclobenzaprine 10 mg tablet 10 mg PO .Q PRN sleep 05/21/24 05/22/24 History ferrous sulfate 325 mg (65 mg 325 mg PO DAILY 05/21/24 05/21/24 History iron) tablet furosemide 40 mg tablet 40 mg PO DAILY 05/21/24 05/21/24 History hydralazine 50 mg tablet 75 mg PO Q12H 05/21/24 05/21/24 History insulin glargine 100 unit/mL (3 10 unit subcut DAILY 05/21/24 05/21/24 History mL) subcutaneous pen (Lantus Solostar U-100 Insulin) isosorbide mononitrate 30 mg 30 mg PO DAILY 05/21/24 05/21/24 History tablet,extended release 24 hr pantoprazole 40 mg tablet,delayed 40 mg PO DAILY 05/21/24 05/21/24 History release Allergies Allergy/AdvReac Type Severity Reaction Status Date / Time oxycodone [From Percocet] Allergy Severe facial Verified 05/22/24 10:05 swelling Exam Constitutional Vital Signs, click to edit/add: Last Vital Signs Temp 97.9 F 05/22/24 04:00 Pulse 77 05/22/24 10:00 Resp 18 05/22/24 04:00 BP 155/78 H 05/22/24 04:00 Pulse Ox 96 05/22/24 10:54 O2 Del Method Room Air 05/22/24 10:54 Documenting provider has reviewed patient's vital signs: yes Common normals: no apparent distress and oriented x3 General appearance: cooperative HENMT Common normals: normocephalic and head/scalp atraumatic Head and scalp: normocephalic and atraumatic Respiratory Common normals: normal respiratory effort and clear to auscultation bilaterally Effort & inspection: able to speak in complete sentences Auscultation: clear to auscultation bilaterally Cardio Common normals: regular rate, S1 normal heart sound and S2 normal heart sound Rate: regular rate Heart sounds: S1 normal and S2 normal GI Common normals: Normal to inspection, nondistended, normoactive bowel sounds present, soft to palpation, non-tender and no hepatosplenomegaly Palpation: soft and no hepatosplenomegaly Back & Pelvis Common normals: no CVA tenderness Thoracic spine/upper back: thoracic spinal tenderness and paraspinal muscle spasm Extremity Common normals: no clubbing, cyanosis or edema Right upper extremity: shoulder joint Right shoulder joint exam: ROM (restricted due to pain) Left upper extremity: shoulder joint Left shoulder joint: ROM (restricted due to pain) Neuro Common normals: oriented x3, moves all extremities and no focal motor deficits Psych Common normals: mental status grossly normal, denies hallucinations, denies homicidal ideation and denies suicidal ideation Results Labs Labs: Short CBC 05/21/24 05/22/24 Range/Units 19:55 06:06 WBC 13.8 H 10.4 (4.0-11.0) 10^3/uL Hgb 11.8 L 10.6 L (14.0-18.0) g/dL Hct 35.8 L 32.7 L (42.0-54.0) % Plt Count 255 220 (150-450) 10^3/uL BMP 05/21/24 05/22/24 19:55 06:06 Sodium 134 L 138 Potassium 4.1 3.6 Chloride 101 107 Carbon Dioxide 20.7 L 20.7 L BUN 48.0 H 45.0 H Creatinine 2.50 H 2.33 H Glucose 170 H 78 Calcium 8.8 8.2 L Cardiac Enzymes 05/21/24 Range/Units 19:55 Total Creatine Kinase 32 L (39-308) U/L CK-MB (CK-2) 1.48 (<=3.60) ng/mL Liver Function 05/21/24 05/22/24 Range/Units 19:55 06:06 Total Bilirubin 0.8 0.7 (0.2-1.0) mg/dL AST 15 11 L (15-37) U/L ALT 21 18 (16-63) U/L Alkaline Phosphatase 99 76 (46-116) U/L Albumin 3.1 L 2.5 L (3.4-5.0) g/dL Urine 05/21/24 Range/Units 23:35 Urine Color Lt. yellow (YELLOW) Urine Clarity Clear (CLEAR) Urine pH 5.5 (5.0-9.0) Ur Specific [place] 1.025 (1.005-1.025) Urine Protein 100 A (NEG/TRACE) mg/dL Urine Glucose (UA) Negative (NEGATIVE) mg/dL Assessment and Plan Assessment and Plan (1) Leukocytosis: Assessment and Plan: Resolved. Likely reactive. No underlying infectious etiology suspected based on initial workup. Qualifiers: Leukocytosis type: leukemoid reaction Qualified Code(s): D72.823 - Leukemoid reaction (2) Acute kidney injury: Assessment and Plan: Baseline creatinine is 2.2. Presented with mild elevation and is now more or less back to his baseline. Stable for discharge. Outpatient follow-up with nephrology. (3) Generalized weakness: Assessment and Plan: Generalized weakness along with malaise/pain in multiple joints/worsening of chronic neck and back pain. No acute finding on initial workup that included CT chest, CT abdomen pelvis, CBC, CMP. It is very possible that he had viral infection recently. No underlying infectious etiology noted on workup. He is medically stable for discharge and can follow-up with PCP as outpatient. (4) Generalized pain: Assessment and Plan: Improved from admission. He is still complaining of aches and pains in multiple joints. No acute finding on initial workup. Will need outpatient follow-up (5) Chronic neck and back pain: Assessment and Plan: Chronic neck and back pain with slight worsening. No new neurological finding. Able to ambulate. Outpatient follow-up. (6) CAD (coronary artery disease): Assessment and Plan: No evidence of acute cardiac ischemia. Aspirin, statin.. Qualifiers: Coronary Disease-Associated Artery/Lesion type: kenaitze artery [place] vs. transplanted heart: kenaitze heart Associated angina: without angina Qualified Code(s): I25.10 - Atherosclerotic heart disease of kenaitze coronary artery without angina pectoris (7) Type 2 diabetes mellitus: Assessment and Plan: Can follow-up PCP as outpatient. Continue with insulin. Qualifiers: Diabetes mellitus penitentiary insulin use: with penitentiary use Diabetes mellitus complication status: with kidney complications Diabetes mellitus complication detail: with chronic kidney disease Chronic kidney disease stage: stage 4 (severe) Qualified Code(s): E11.22 - Type 2 diabetes mellitus with diabetic chronic kidney disease; N18.4 - Chronic kidney disease, stage 4 (severe); Z79.4 - intermediate (current) use of insulin (8) CKD (chronic kidney disease) stage 4, GFR 15-29 ml/min: Assessment and Plan: Mild elevation in serum creatinine from baseline. now returned to baseline. Output follow-up with nephrology (9) HTN (hypertension): Assessment and Plan: Elevated on arrival likely because of poorly controlled pain. Improved now. Continue with home medications Qualifiers: Hypertension type: primary hypertension Qualified Code(s): I10 - Essential (primary) hypertension (10) HLD (hyperlipidemia): Assessment and Plan: Continue Lipitor. Qualifiers: Hyperlipidemia type: mixed hyperlipidemia Qualified Code(s): E78.2 - Mixed hyperlipidemia
[2024-05-22] MEDS: HYDROCODONE/ACET 5-325 MG TABLET 1 TAB PO (13:18)
--- NOTE | 2024-05-24 14:22 | CM.DCFOLLOWU ---
1st attempt 05/24/24
--- NOTE | 2024-05-25 14:09 | CM.DCFOLLOWU ---
2nd attempt 05/25/24
--- NOTE | 2024-05-26 15:01 | CM.DCFOLLOWU ---
3rd attempt 05/26/24
== END 2024-05-22 14:20 | disposition home or self-care (01) ==
LOC: ER 05-22 00:35 → MS 05-22 01:33
PROVIDERS: Personal Emergency Response Attendant; Registered Nurse; Admitting Provider Internal Medicine; Emergency Provider Emergency Medicine; Visit Provider Internal Medicine
DX: N17.9 Acute kidney failure, unspecified (principal); D72.823 Leukemoid reaction; R53.1 Weakness; I25.10 Atherosclerotic heart disease of native coronary artery without angina pectoris; E11.22 Type 2 diabetes mellitus with diabetic chronic kidney disease; I12.9 Hypertensive chronic kidney disease with stage 1 through stage 4 chronic kidney disease, or unspecified chronic kidney disease; E78.5 Hyperlipidemia, unspecified; M54.9 Dorsalgia, unspecified; M54.2 Cervicalgia; N18.4 Chronic kidney disease, stage 4 (severe); Z79.4 Long term (current) use of insulin; F17.200 Nicotine dependence, unspecified, uncomplicated; Z20.822 Contact with and (suspected) exposure to COVID-19
CPT/HCPCS: 36415; 71045; 71250; 74176; 76706; 80053; 81001; 82009; 82550; 82553; 83605; 83735; 83874; 83880; 84100; 84484; 85025; 85610; 85652; 85730; 86140; 87040; 87811; 93005; 94761; 96374; 96375; 97161; 99285; G0378; J2270; J3010

== ENCOUNTER 2024-10-29 09:07 | Outpatient (OUT) | payer MEDICARE, SELFPAY ==
[2024-10-29 09:45] LABS: Albumin Level 3.5 g/dL (3.4-5.0); Calcium 8.8 mg/dL (8.5-10.1); Carbon Dioxide 30.8 mmol/L (21.0-32.0); Chloride 103 mmol/L (98-107); Estimated GFR (African America 27 (>=60 mL/min/1.73m^2); Estimated GFR (Non-African Ame 22 (>=60 mL/min/1.73m^2); Glucose 232 mg/dL (74-106); Magnesium 2.1 mg/dL (1.8-2.4); Phosphorus 3.4 mg/dL (2.6-4.7); Sodium 142 mmol/L (136-145)
[2024-10-29 09:49] LABS: Potassium 2.8 mmol/L (3.5-5.1)
== END 2024-10-29 09:08 | disposition home or self-care (01) ==
LOC: LAB 09:10
PROVIDERS: Visit Provider Internal Medicine
DX: N25.81 Secondary hyperparathyroidism of renal origin (principal); N18.9 Chronic kidney disease, unspecified; D63.1 Anemia in chronic kidney disease; I12.9 Hypertensive chronic kidney disease with stage 1 through stage 4 chronic kidney disease, or unspecified chronic kidney disease; E11.22 Type 2 diabetes mellitus with diabetic chronic kidney disease
CPT/HCPCS: 36415; 80069; 83735

== ENCOUNTER 2024-11-01 08:48 | Outpatient (OUT) | payer MEDICARE, SELFPAY ==
[2024-11-01 09:45] LABS: Albumin Level 3.6 g/dL (3.4-5.0); Anion Gap 10.1; BUN Creatinine Ratio 19.4; Calcium 9.3 mg/dL (8.5-10.1); Carbon Dioxide 30.8 mmol/L (21.0-32.0); Chloride 101 mmol/L (98-107); Estimated GFR (African America 28 (>=60 mL/min/1.73m^2); Estimated GFR (Non-African Ame 23 (>=60 mL/min/1.73m^2); Glucose 185 mg/dL (74-106); Sodium 139 mmol/L (136-145)
[2024-11-01 09:53] LABS: Potassium 2.9 mmol/L (3.5-5.1)
== END 2024-11-01 08:49 | disposition home or self-care (01) ==
PROVIDERS: Visit Provider Internal Medicine
DX: N25.81 Secondary hyperparathyroidism of renal origin (principal); N18.9 Chronic kidney disease, unspecified; D63.1 Anemia in chronic kidney disease; I12.9 Hypertensive chronic kidney disease with stage 1 through stage 4 chronic kidney disease, or unspecified chronic kidney disease; E11.22 Type 2 diabetes mellitus with diabetic chronic kidney disease
CPT/HCPCS: 36415; 80069; 83735

== ENCOUNTER 2024-11-03 14:19 | Emergency (ER) | payer MEDICARE, SELFPAY ==
[2024-11-03 14:29] VITALS: BP 185/92; PULSE 65; TEMP 36.4; O2SAT 98; BMI 27.5
--- NOTE | 2024-11-03 14:46 | XR_ITS ---
The [address] [address] Patient Name: GAGE PALOMINO MRN: [id number] date: 1950 Sex: M Assigned Patient Location: ER Current Patient Location: ER Accession/Order Number: [id number] Exam Date: 11/03/2024 14:56 Report Date: 11/03/2024 15:55 At the request of: SONG HU Procedure: XR abdomen min 2V EXAM: XR abdomen min 2V HISTORY: Constipation COMPARISON: None. TECHNIQUE: Supine and upright views of the abdomen FINDINGS: Nonspecific bowel gas pattern is seen. Significantly large volume of dense stool is seen throughout the colon. No definite pathologic calcification is seen. No gross pneumoperitoneum is seen. Fusion device is seen projecting over the L3-L5 level. XR/XR abdomen min 2V IMPRESSION: Significantly enlarged volume of dense stool seen throughout the colon. Electronically authenticated by: RICCO MORALES Date: 11/03/2024 15:55
--- NOTE | 2024-11-03 14:57 | ED.GENADUL1 ---
HPI HPI - General Adult General Chief complaint: Abdominal Pain Stated complaint: CONSTIPATED Time Seen by Provider: 11/03/24 14:23 Source: patient Mode of arrival: walk-in History of Present Illness HPI narrative: Patient is a 74-year-old male who presents to the emergency department for a 1 week history of constipation. He reports some lower abdominal cramping but no severe pain. No fevers or vomiting. He is on iron supplementation, he states he has been trying to digitally remove small hard balls of dark stool for over a week without improvement. He states he was told previously by his PCP to take stool softeners and he has used suppositories in the past. He states the constipation seems to be an ongoing problem that his PCP is aware of. Related Data Home Medications ?Medication ?Instructions ?Recorded ?Confirmed aspirin 81 mg tablet,delayed 81 mg PO DAILY 05/21/24 05/21/24 release atorvastatin 20 mg tablet 20 mg PO .QHS 05/21/24 05/22/24 carvedilol 25 mg tablet 25 mg PO Q12H 05/21/24 05/21/24 cyclobenzaprine 10 mg tablet 10 mg PO .QHS PRN sleep 05/21/24 05/22/24 ferrous sulfate 325 mg (65 mg 325 mg PO DAILY 05/21/24 05/21/24 iron) tablet furosemide 40 mg tablet 40 mg PO DAILY 05/21/24 05/21/24 hydralazine 50 mg tablet 75 mg PO Q12H 05/21/24 05/21/24 insulin glargine 100 unit/mL (3 10 unit subcut DAILY 05/21/24 05/21/24 mL) subcutaneous pen (Lantus Solostar U-100 Insulin) isosorbide mononitrate 30 mg 30 mg PO DAILY 05/21/24 05/21/24 tablet,extended release 24 hr pantoprazole 40 mg tablet,delayed 40 mg PO DAILY 05/21/24 05/21/24 release Previous Rx's ?Medication ?Instructions ?Recorded magnesium citrate (Citrate of 296 ml PO DAILY constipation #296 11/03/24 Magnesia oral) mL ondansetron 4 mg disintegrating 4 mg PO Q6H PRN nausea and 11/03/24 tablet vomiting #12 tabs Allergies Allergy/AdvReac Type Severity Reaction Status Date / Time oxycodone (From Percocet) Allergy Severe facial Verified 05/22/24 10:05 swelling Opioid HPI Opioid Management Most Recent Opioid Data: Last Pain Scale 10 05/22/24 13:18 05/22/24 Last Pain Intensity 3 05/22/24 10:42 05/22/24 Last ORT Total Score 0 05/22/24 01:47 05/22/24 Last ORT Risk Category Low Risk 05/22/24 01:47 05/22/24 Review of Systems ROS Constitutional Denies: fever or chills Ears, nose, mouth, and throat Denies: throat pain or nasal congestion Cardiovascular Denies: chest pain Respiratory Denies: shortness of breath Gastrointestinal Reports: abdominal pain and constipation; Denies: nausea, vomiting or diarrhea Musculoskeletal Denies: back pain Integumentary/Breast Denies: rash Hematologic/Lymphatic Denies: easy bruising or easy bleeding PFSH [facility] Medical History (Updated 11/03/24 @ 15:59 by DELANEY Rios) Generalized pain ?R52 - Pain, unspecified (ICD-10) Generalized weakness ?R53.1 - Weakness (ICD-10) Chronic neck and back pain ?M54.2 - Cervicalgia (ICD-10) ?M54.9 - Dorsalgia, unspecified (ICD-10) ?G89.29 - Other chronic pain (ICD-10) HTN (hypertension) ?I10 - Essential (primary) hypertension (ICD-10) HLD (hyperlipidemia) ?E78.5 - Hyperlipidemia, unspecified (ICD-10) Type 2 diabetes mellitus ?E11.9 - Type 2 diabetes mellitus without complications (ICD-10) CAD (coronary artery disease) ?I25.10 - Atherosclerotic heart disease of three affiliated coronary artery without angina pectoris (ICD-10) CKD (chronic kidney disease) stage 4, GFR 15-29 ml/min ?N18.4 - Chronic kidney disease, stage 4 (severe) (ICD-10) Surgical History (Updated 05/22/24 @ 11:46 by Shaikh Adry MD) History of lumbar fusion ?Z98.1 - Arthrodesis status (ICD-10) H/O neck surgery ?Z98.890 - Other specified postprocedural states (ICD-10) Social History Within the past year, how often did you have a drink containing alcohol: monthly or less Within the past year, how many standard drinks containing alcohol did you have on a typical day: 1 or 2 Within the past year, how often did you have six or more drinks on one occasion: never Total score: 0 Score interpretation: A score less than 4 is consistent with normal alcohol consumption. Smoking status: Current every day smoker Non-prescribed substance use: denies use Highest level of school completed/degree received: high school graduate Little interest or pleasure in doing things: not at all Feeling down, depressed, or hopeless: not at all Exam Narrative Exam Narrative: Gen.: Awake, alert, in no distress Head: Normocephalic, atraumatic ENT: Moist mucous membranes Respiratory: No respiratory distress Gastrointestinal: Abdomen is soft, nondistended and nontender to palpation rectal exam performed with Pinky Marrero RN at bedside throughout the duration of the exam. A small ball of hard stool was able to be digitally removed with stool felt more proximal in the colon that is not able to be removed Extremities: Moves extremities equally Psych: Normal mood and affect Neuro: No focal neuro deficit Skin: Warm, dry, intact Constitutional Vital Signs, click to edit/add: Last Vital Signs Temp 97.6 F 11/03/24 14:29 Pulse 65 11/03/24 14:29 Resp 18 11/03/24 14:29 BP 185/92 H 11/03/24 14:29 Pulse Ox 98 11/03/24 14:29 Course Vital Signs Vital signs: Vital Signs Temperature 97.6 F 11/03/24 14: Pulse Rate 65 11/03/24 14:29 Respiratory Rate 18 11/03/24 14:29 Blood Pressure 185/92 H 11/03/24 14:29 Pulse Oximetry 98 11/03/24 14:29 Temperature 97.6 F 11/03/24 14:29 Pulse Rate 65 11/03/24 14:29 Respiratory Rate 18 11/03/24 14:29 Blood Pressure 185/92 H 11/03/24 14:29 Pulse Oximetry 98 11/03/24 14:29 Medical Decision Making MDM Narrative Medical decision making narrative: Patient's abdomen is soft and benign, he has not had any severe pain, fevers or vomiting. An enema was performed, x-rays show no evidence of obstruction with significant constipation and hard stool noted in the rectal vault. Patient tolerated the enema, however there was not significant passage of the stool with the enema. After this was administered, digital disimpaction was performed by nursing at bedside with significant removal of stool. Patient will be started on magnesium citrate for home with Zofran as needed. Continue stool softeners and suppositories as needed and follow-up with primary care for further evaluation and treatment. Return to the ER if symptoms change or worsen SUPERVISED APC VISIT, PHYSICIAN ATTESTATION: Based on the medical record the care appears appropriate. ? Medical Records Medical records reviewed: Yes I reviewed the patient's medical records Imaging Data Abdominal x-ray: Attestation: I have reviewed the pertinent imaging results. Radiologist's impression: ITS Impressions Abdomen X-Ray 11/03/24 14:46 IMPRESSION: Significantly enlarged volume of dense stool seen throughout the colon. Electronically authenticated by: RICCO MORALES Date: 11/03/2024 15:55 Discharge Plan Discharge Chief Complaint: Abdominal Pain Clinical Impression: Constipation Patient Disposition: Home, Self-Care Time of Disposition Decision: 15:58 Condition: Good Prescriptions / Home Meds: New magnesium citrate [Citrate of Magnesia] Solution 296 ml PO DAILY Qty: 296 0RF Rx Instructions: Take half of the bottle with 8 oz of water, take the other half after 1 hour with 8 oz of water ondansetron 4 mg tablet,disintegrating 4 mg PO Q6H PRN (Reason: nausea and vomiting) Qty: 12 0RF No Action aspirin 81 mg tablet,delayed release (DR/EC) 81 mg PO DAILY atorvastatin 20 mg tablet 20 mg PO .QHS carvedilol 25 mg tablet 25 mg PO Q12H cyclobenzaprine 10 mg tablet 10 mg PO .QHS PRN (Reason: sleep) ferrous sulfate 325 mg (65 mg iron) tablet 325 mg PO DAILY furosemide 40 mg tablet 40 mg PO DAILY hydralazine 50 mg tablet 75 mg PO Q12H insulin glargine [Lantus Solostar U-100 Insulin] 100 unit/mL (3 mL) insulin pen 10 unit SUBCUT DAILY isosorbide mononitrate 30 mg tablet extended release 24 hr 30 mg PO DAILY pantoprazole 40 mg tablet,delayed release (DR/EC) 40 mg PO DAILY Print Language: Malian Instructions: Constipation (ED) Referrals: Bronwyn Adorno DO [Primary Care Provider] - 1 week
== END 2024-11-03 16:39 | disposition home or self-care (01) ==
PROVIDERS: Emergency Provider Emergency Medicine
DX: K59.00 Constipation, unspecified (principal); Z98.1 Arthrodesis status; F17.200 Nicotine dependence, unspecified, uncomplicated
CPT/HCPCS: 74019; 99283

== ENCOUNTER 2024-11-04 09:24 | Outpatient (OUT) | payer MEDICARE, SELFPAY ==
[2024-11-04 10:46] LABS: Albumin Level 3.7 g/dL (3.4-5.0); BUN Creatinine Ratio 18.7; Calcium 9.3 mg/dL (8.5-10.1); Chloride 105 mmol/L (98-107); Estimated GFR (African America 31 (>=60 mL/min/1.73m^2); Estimated GFR (Non-African Ame 26 (>=60 mL/min/1.73m^2); Glucose 183 mg/dL (74-106); Potassium 4.5 mmol/L (3.5-5.1); Sodium 140 mmol/L (136-145)
[2024-11-04 11:10] LABS: Carbon Dioxide 28.5 mmol/L (21.0-32.0); Phosphorus 2.8 mg/dL (2.6-4.7)
== END 2024-11-04 09:25 | disposition home or self-care (01) ==
LOC: LAB 09:29
PROVIDERS: Visit Provider Internal Medicine
DX: E78.5 Hyperlipidemia, unspecified (principal); D63.1 Anemia in chronic kidney disease; N25.81 Secondary hyperparathyroidism of renal origin; N18.9 Chronic kidney disease, unspecified; I12.9 Hypertensive chronic kidney disease with stage 1 through stage 4 chronic kidney disease, or unspecified chronic kidney disease; E11.22 Type 2 diabetes mellitus with diabetic chronic kidney disease; E87.6 Hypokalemia
CPT/HCPCS: 36415; 80069

== ENCOUNTER 2024-11-11 11:03 | Outpatient (OUT) | payer MEDICARE, SELFPAY ==
--- OUTSIDE RECORDS SUMMARY | 2024-11-11 11:11 | XMS_ITS | CCD ---
Author Organization [facility] Care Team Providers Care Statistics Manager Name Role Phone TIMUS BHARATHI Unavailable Unavailable [id number], [id number] Unavailable Unavailable August Dumont Unavailable Unavailable Unavailable Lolita Adorno E Unavailable Schwidar Lolita Unavailable Yohannes Granda Unavailable Schwanmol Lolita Unavailable Clemente Miller Unavailable DO Kyree Lolita E Primary Care Provider DO Kyree Lolita E Attending Provider MD Clemente Miller Attending Provider Rosaline [facility] Joycelyn E Emergency Provider DO Kyree Lolita E Primary Care Provider MD Clemente Miller Attending Provider Rosaline [facility] Joycelyn E Emergency Provider DO Kyree [...] Provider MD Benjy Vernon Other Provider DO Nellie Santos Other Provider MD Beth Soto Other Provider MD Ronnell Fletcher Other Provider Maliha, PHOTOGEOLOGIST-C Lea Grullon Other Provider MD Kamron Small [...] Dr. Gabriela Murillo Attending Eleni vailable Lowe, PHOTOGEOLOGIST-C Beth Attending Provider DO Kyree Lolita E Attending Provider DO Kyree Lolita E Primary Care Provider MD Gabriela Florian Attending Provider Rosaline, [facility] Joycelyn E Emergency Provider Prieto Santo Unavailable DO Trish Adornoitlin E Primary Care Provider MD Prieto Santo Attending Provider DO Kyree Lolita E Primary Care Provider Rosaline [facility] Joycelyn E Emergency Provider MD Prieto Santo Attending Provider Lyudmila White Unavailable DO Wyatt Chaparro Emergency Provider [phone] MD Barbie Osborn Admit Provider MD Barbie Osborn Attending Provider MD Joao Coley Other Provider [phone] DO Govind Jim Other Provider MD Yohannes Granda Other Provider MD Darian Peters Other Provider MD Milo Mena Other Provider MD Maxx Gonzalez Other Provider SWEETIE Rodriguez Other Provider MD Kevin Li Other Provider MD Omar Strong Other Provider MD Khushboo Hinse Other Provider MD Nette Holden Other Provider MD Mirza Causey Other Provider MD David Mcleod Other Provider MD Tito Martinez Other Provider SWEETIE Ramirez Other Provider MD Parrish Mendosa Other Provider MD Martínez Briceño Other Provider [phone] MD Sonja Laird Other Provider [phone] DO Tej Reynoso Other Provider MD Daly Giraldo Other Provider [phone] MD Juan David Bustamante Other Provider MD Clement Capma Other Provider DO Donta Ochoa Other Provider DO Lolita Adorno Attending Provider MD Barbie Osborn Referring Provider Lolita Adorno DObeth Primary Care Prov ider MD Gabriela Florian Attending Provider [phone] GABRIELA FLORIAN Attending Unavailable LOLITA ADORNOZABETH Primary Care Unav ailable Nette Holden Unavailable DO Lolita Adorno E Primary Care Provider [phone] MD Gabriela Florian Attending Provider DO Felicia Adornolin E Primary Care Provider [phone] DO Lolita Adorno E Attending Provider RAI BADILLO Attending Unavailable RAI BADILLO Referring Unavailable Schwerer DO, Lolita E Primary Care Provider Nette Holden MD Attending Provider Schwerer DO, Lolita Primary Care Provider KRISTIE ORTIZ W Referring Unavailable SCHWERER, LOLITA Primary Care Unavailable KRISTIE ORTIZ W Referring Unavailable SCHWERER, LOLITA Primary Care Unavailable AHAMMAD, EDIN Referring Unavailable SCHWERER, LOLITA Primary Care Unavailable AHAMMAD, EDIN Referring Unavailable SCHWERER, LOLITA Primary Care Unavailable ROX, CHI Consulting Unavailable ROX, CHI Admitting Unavailable ROX, CHI Attending Unavailable SCHWERER, LOLITA Primary Care Unavailable AHAMMAD, EDIN Consulting Unavailable AVASTHI, GERARD Consulting Unavailable ALI, TRISTA AUREA Consulting Unavailable ASLAM, CHIN Consulting Unavailable SHANELLE MENA Consulting Unavailable Schwerer DO, Lolita E Attending Provider Ernie Vargas DO Emergency Provider [phone] Enriqueta CADENA, Matheus Admit Provider Enriqueta CADENA, Matheus Attending Provider [phone] Tito Martinez MD Other Provider Nellie Wynne MD Emergency Provider Nette Holden MD Referring Provider Enriqueta CADENA, Matheus Other Provider Schwerer DO, Lolita Primary Care Provider Nette Holden Admitting Unavailable AdinaNette Attending Unavailable Schwerer, Lolita E Primary Care Unavailable Schwerer, Lolita E Admitting Unavailable Schwerer, Lolita E Primary Care Unavailable Schwerer, Lolita E Attending Unavailable Schwerer, Lolita E Admitting Unavailable Matheus Robison Consulting Unavailable Schwerer, Lolita E Primary Care Unavailable Adina Nette Referring Unavailable Schwerer, Lolita E Attending Unavailable Schwerer, Lolita E Admitting Unavailable Schwerer, Lolita E Primary Care Unavailable Schwerer, Lolita E Attending Unavailable Enriqueta, Matheus Admitting Unavailable Enriqueta, Matheus Attending Unavailable Schwerer, Lolita E Primary Care Unavailable Bakhous, Aziz Consulting Unavailable Enriqueta, Matheus Admitting Unavailable Enriqueta, Matheus Attending Unavailable Schwerer, Lolita E Primary Care Unavailable Bakhous, Aziz Consulting Unavailable Schwerer, Lolita E Admitting Unavailable Schwerer, Lolita E Primary Care Unavailable Schwerer, Lolita E Attending Unavailable Schwerer, Lolita E Admitting Unavailable Schwerer, Lolita E Primary Care Unavailable Schwerer, Lolita E Attending Unavailable Allergies Allergy Classification Reported Allergen(s) Allergy Type Date of Onset Reaction(s) Facility Acetaminophen (1 source) Acetaminophen Drug Allergy 03-22-20 24 swelling of throat [facility] amLODIPine (1 source) amLODIPine Drug Allergy 03-22-20 24 Edema [facility] Aspirin (1 source) Aspirin Drug Allergy 03-22-20 24 Swelling of Lip/Tongue/Thr oat, lips turn blue if takes 2 [facility] Opioid Agonists (1 source) oxyCODONE Drug Allergy 03-22-20 24 Swelling of Lip/Tongue/Thr oat, swelling of throat [facility] (20 sources) Acetaminophen / oxyCODONE; Translations: [Percocet TABS] Drug Allergy 09-24-20 23 Anaphylaxis [facility] Other (20 sources) amLODIPine; Translations: [amlodipine] Drug Allergy 09-18-20 22 Swelling, Angioedema [facility] (20 sources) Aspirin; Translations: [Aspirin TABS] Drug Allergy 09-24-20 23 Unknown [facility] Other (20 sources) Aspirin; Translations: [ASPIRIN] Drug Allergy 10-31-19 16 Unknown, Anaphylaxis, Swelling [facility] Comment on above: Pt states, I can ta ke 1 aspirin but anymore than that my lips swell. Pt confirmed that currently taking 81mg PO daily safely. (20 sources) oxyCODONE; Translations: [oxycodone] Drug Allergy 04-25-20 21 Swelling of Lip/Tongue/Thr oat, Swelling of Lip/Tongue/Thr oat, swelling of throat [facility] Comment on above: Has tolerated hydrom orphone in this hospital (6 sources) Angiotensin Converting Enzyme (Titi) Inhibitors; Translations: [TITI Inhibitors] Allergy to drug (finding) 09-24-20 23 Other [facility] 3 Repository (1 source) Angiotensin-conv erting enzyme inhibitor agent Propensity to adverse reactions 09-24-20 23 Other [facility] (6 sources) Acetaminophen / oxyCODONE; Translations: [OXYCODONE-ACETA MINOPHEN] Drug Allergy 10-31-19 16 Unknown, Anaphylaxis [facility] 3 Repository (12 sources) Acetaminophen; Translations: [acetaminophen] Drug Allergy 12-25-19 24 swelling of throat [facility] (3 sources) Angiotensin-conv erting enzyme inhibitor agent Drug Intolerance 09-24-20 23 [facility] (1 source) amLODIPine Drug Allergy 10-27-19 25 [facility] Repository Medications Current Medications Medication Drug Class(es) Dates Sig (Normalized) Sig (Original) acetaminophen 325 mg oral tablet (1 source) Start: 05-27-2024 acetaminophen 325 mg / HYDROcodone bitartrate 5 mg oral tablet (20 sources) Opioid Agonist Start: 05-27-2024 Start: 10-05-2022 End: 09-08-2023 take 1 tablet by mouth every six hours as needed for pain Hydrocodone-Acetaminophen 5-325 mg table t Discontinued 1 TAB PO Q6H as needed for pain 10 3 July 22, 2023 September 08, 2023 2:59pm Start: 11-23-2021 End: 09-18-2022 take 1 tablet by mouth every four to six hours as needed for pain Hydrocodone-Acetaminophen 5-325 mg table t Discontinued 1 - 2 TAB PO EVERY 4-6 HOURS as needed for pain 14 November 23, 2021 September 18, 2022 11:11am aspirin 81 mg chewable tablet (20 sources) Platelet Aggregation Inhibitor, Nonsteroidal Anti-inflammatory Drug Start: 08-26-2017 End: 09-18-2022 take 1 tablet by mouth once daily in the morning Aspirin 81 mg tablet,chewable Active 81 MG PO Every morning September 18, 2022 11:10am take 1 tablet by mouth once loulou y aspirin 81 MG EC tablet Take 81 mg by mouth 1 (one) time each day at the same time. Active atorvastatin 20 mg oral tabl et (20 sources) HMG-CoA Reductase Inhibitor Start: 05-25-2024 Start: 10-16-2023 take 1 tablet by garrick th once daily at bedtime atorvastatin (Lipitor) 20 mg tablet Indications: 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of [place] coronary artery of [place] heart without angina pectoris , Atherosclerotic heart disease of [place] coronary artery without angina pectoris Take 1 tablet (20 mg) by mouth once daily at bedtime. 90 tablet 3 10/16/2023 Active Start: 08-26-2017 End: 08-09-2020 take 1 tablet by mouth once daily Atorvastatin 80 mg Tablet Discontinued 80 MG PO Daily August 26, 2017 12:00am August 09, 2020 10:48am Start: 08-23-2017 End: 10-16-2023 take 1 tablet by mouth once daily at bedtime Atorvastatin 20 mg Tablet Active 20 MG PO Daily at bedtime August 09, 2020 12:00am baclofen 10 mg oral tablet (3 sources) gamma-Aminobutyric Acid-ergic Agonist Start: 06-10-2024 baclofen (Lioresal) 10 MG tablet Take 5 mg by mouth as needed at bedtime 06/10/2024 Active bisacodyl 10 mg rectal suppository (1 source) Stimulant Laxative Start: 05-27-2024 Blood Pressure Kit - (4 sources) Start: 09-23-2023 Blood Pressure Kit - as directed Sep, Active carvedilol 25 mg oral tablet (20 sources) alpha-Adrenergic Sima, beta-Adrenergic Sima Start: 10-06-2022 End: 10-15-2024 Start: 10-02-2017 End: 10-06-2022 take 1 tablet by mouth twice daily Carvedilol 12.5 mg tablet Discontinued 12.5 MG PO Twice daily October 02, 2017 12:00am October 06, 2022 10:40am take 1 tablet by garrick th every twelve hours carvedilol (Coreg) 12.5 MG tablet Take 12.5 mg by mouth every 12 (twelve) hours. Active Centrum Silver - (20 sources) Centrum Silver - as directed Orally Active clindamycin 150 mg oral capsule (20 sources) Lincosamide Antibacterial Start: take 1 capsule by mouth in the morning, then take 1 capsule by mouth in the evening, then take 1 capsule by mouth at bedtime clindamycin (Cleocin) 150 MG capsule Take 150 mg by mouth in the morning and 150 mg in the evening and 150 mg before bedtime. 07/14/2022 Active Start: 07-14-2022 End: 09-18-2022 take 3 capsules by mouth three times daily Clindamycin Hcl 150 mg capsule Discontinued 450 MG PO Three times daily July 13, 2022 11:00pm September 18, 2022 11:04am Start: 07-14-2022 End: 09-18-2022 take 450 mg by mouth three times daily Clindamycin Hcl Discontinued 450 MG PO Three times daily 90 July 14, 2022 12:00am September 18, 2022 12:04pm cloNIDine hydrochloride 0.1 mg oral tablet (14 sources) Central alpha-2 Adrenergic Agonist Start: 10-08-2024 take 1 tablet by mouth every twelve hours Clonidine Hcl 0.1 mg Tablet Active 0.1 MG PO Every 12 hours 120 60 October 08, 2024 12:00am Start: 10-06-2024 End: 10-08-2024 take 1 tablet by mouth every twelve hours Clonidine Hcl 0.2 mg tablet Discontinued 0.2 MG PO Every 12 hours 60 October 06, 2024 12:00am October 08, 2024 12:25pm cyclobenzaprine hydrochloride 10 mg oral tablet (20 sources) Muscle Relaxant Start: 10-04-2024 take 1 tablet by mouth once daily at bedtime as needed for muscle spasms Cyclobenzaprine 10 mg tablet Active 0 .ROUTE .COMPLEX October 04, 2024 12:03pm TAKE 1 TABLET BY MOUTH DAILY AT BEDTIME NEEDED FOR BACK SPASMS Start: 09-08-2023 End: 10-04-2024 Start: 02-11-2022 End: 09-08-2023 take 1 tablet by mouth three times daily as needed for muscle spasms Cyclobenzaprine 10 mg tablet Discontinued 10 MG PO Three times daily as needed for back spasms October 05, 2022 12:00am September 08, 2023 2:50pm Start: 06-18-2021 End: 10-05-2022 take 1 tablet by mouth once daily at bedtime Cyclobenzaprine 10 mg tablet Discontinued 10 MG PO Daily at bedtime September 12, 2021 12:00am October 05, 2022 9:36am Drug or medicament (substance) (1 source) Start: 05-30-2024 ergocalciferol 1.25 mg oral capsule (8 sources) Provitamin D2 Compound Start: 08-30-2024 take 1 capsule by mouth every week Ergocalciferol (Vitamin D2) 1,250 mcg (50,000 unit) capsule Active 1250 MCG PO every week August 30, 2024 12:00am famotidine 20 mg oral tablet (11 sources) Histamine-2 Receptor Antagonist Start: 07-23-2024 take 1 tablet by mouth once daily Famotidine 20 mg tablet Active 20 MG PO Daily July 22, 2024 11:00pm Start: 06-01-2024 ferrous sulfate 325 mg oral tablet (20 sources) Start: 10-04-2024 Ferrous Sulfat e 325 mg (65 mg iron) tablet Active 0 .ROUTE .COMPLEX October 04, 2024 12:03pm TAKE 1 TABLET EVERY MORNING Start: 08-30-2024 End: 10-04-2024 take 1 tablet by mouth once daily Ferrous Sulfate 325 mg (65 mg iron) tablet Discontinued 325 MG PO Daily August 30, 2024 2:59pm October 04, 2024 12:03pm Start: 04-22-2024 End: 08-30-2024 Ferrous Sulfate 325 mg (65 m g iron) tablet Discontinued 0 .ROUTE .COMPLEX August 06, 2024 12:18pm August 30, 2024 2:59pm TAKE 1 TABLET EVERY MORNING Start: 04-22-2024 Ferrous Sulfat e Active 0 .ROUTE .COMPLEX April 22, 2024 1:47pm TAKE 1 TABLET EVERY MORNING Start: 04-25-2021 End: 04-22-2024 take 1 tablet by mouth once daily in the morning Ferrous Sulfate 325 mg (65 mg iron) tablet Discontinued 325 MG PO Every morning 2024 7:37am April 22, 2024 12:47pm take 1 tablet by garrick th once daily Ferrous Sulfate 325 (65 Fe) MG TAKE 1 TABLET BY MOUTH EVERY DAY for 90 days Active take 1 tablet by garrick th once daily Ferrous Sulfate 325 (65 Fe) MG TAKE 1 TABLET BY MOUTH EVERY DAY for 90 Active glucagon (rdna) 1 mg injection (1 source) Antihypoglycemic Agent Start: 05-24-2024 1000 ml glucose 100 mg/ml injection (1 source) Start: 05-24-2024 1 ml heparin sodium, porcine 5000 unt/ml prefilled syringe (2 sources) Unfractionated Heparin, Anti-coagulant Start: 05-23-2024 End: 05-27-2024 hydrALAZINE hydrochloride 100 mg oral tablet (20 sources) Arteriolar Vasodilator Start: 08-30-2024 take 1 tablet by mouth three times daily Hydralazine 100 mg tablet Active 100 MG PO Three times daily August 30, 2024 12:00am Start: 05-31-2024 Start: 04-26-2024 End: 07-23-2024 Start: 04-26-2024 End: 07-23-2024 take 75 mg by mouth twice daily Hydralazine Discontinu ed 75 MG PO Twice daily 270 April 26, 2024 1:59pm July 23, 2024 10:55am Start: 10-06-2022 End: 09-08-2023 take 1 dose by mouth twice daily Hydralazine Discontinued 100 MG PO Twice daily 120 October 06, 2022 1:00am September 08, 2023 3:47pm Further refills, or dose adjustment, per PCP Start: 08-10-2020 End: 10-15-2024 take 1 tablet by mouth twice daily Hydralazine 50 mg tablet Discontinued 50 MG PO Twice daily September 08, 2023 2:47pm April 26, 2024 12:59pm Further refills, or dose adjustment, per PCP take 1 tablet by garrick th twice daily hydrALAZINE HCl - 100 MG Oral Tablet TAKE 1 TABLET TWICE DAILY DIRECTED. Quantity: 180 Refills: 3 Ordered: 16-Oct-2022 DO Active insulin lispro 100 unt/ml injectable solution (3 sources) Insulin Analog Start: 05-24-2024 End: 05-25-2024 Iron (3 sources) Start: 04-17-2021 take 1 tablet by mouth once daily Iron (Ferrous Sulfate) 325 (65 Fe) MG 1 tablet Orally Once a day Apr, Active 24 hr isosorbide mononitrate 30 mg extended release oral tablet (20 sources) Nitrate Vasodilator Start: 03-28-2022 End: 10-15-2024 Start: 08-08-2020 End: 09-18-2022 take 1 tablet by mouth once daily, then take 1 tablet by mouth every twenty-four hours Isosorbide Mononitrate 60 mg tablet extended release 24 hr Discontinued 60 MG PO Daily August 08, 2020 12:00am September 18, 2022 11:10am take 0.5 tablet by m outh once daily Isosorbide Mononitrate ER 60 MG Oral Tablet Extended Release 24 Hour TAKE 0.5 TABLET Daily Quantity: 0 Refills: 0 Ordered: 19-Sep-2021 DO Active labetalol hydrochloride 5 mg/ml injectable solution (1 source) beta-Adrenergic Sima Start: 05-24-2024 Lantus 100 UNITS CARTRIDGE 3ML 5'S (5 sources) Lantus 100 UNITS CARTRIDGE 3ML 5'S 30 U Active Lantus 100 UNITS CARTRIDGE 3ML 5'S Active lidocaine 0.05 mg/mg medicated patch (13 sources) Antiarrhythmic, Amide Local Anesthetic Start: 06-02-2023 apply 1 dose transdermal route in the morning lidocaine (Lidoderm) 5 % patch Apply 1 patch topically in the morning. 06/02/2023 Active Start: 05-06-2023 Lidocaine 5 % 1 patch remove after 12 hours Externally Once a day for 30 days May, Not-Taking/PRN 1 ml LORazepam 2 mg/ml injection (1 source) Benzodiazepine Start: 05-23-2024 2 ml metoclopramide 5 mg/ml prefilled syringe (1 source) Dopamine-2 Receptor Antagonist Start: 05-27-2024 Multiple Vitamin (Multi Vitamin Daily) tablet (3 sources) take 1 tablet by mouth once daily in the morning Multiple Vitamin (Multi Vitamin Daily) tablet Take 1 tablet by mouth in the morning. Active Rmccsebg-Jhe-Yhowtkj Gluconate (Centrum) 9 mg iron/ 15 mL (15 mL) liquid (1 source) Start: 10-27-2024 Fgusnnsf-Gjq-Maygp us Gluconate (Centrum) 9 mg iron/ 15 mL (15 mL) liquid Active 15 ML PO Daily October 27, 2024 8:39am multivitamin (Daily Multi-Vitamin) tablet (1 source) take 1 tablet by mouth once daily multivitamin (Daily Multi-Vitamin) tablet Take 1 tablet by mouth once daily. 0 Active bpzfvjhgafzf-ocqa-ti nerals-folic acid (Centrum Silver, geriatric,) tablet (4 sources) take 1 tablet by mouth in the morning multivitamin-iron- minerals-folic acid (Centrum Silver, geriatric,) tablet Take 1 tablet by mouth in the morning. Active nabumetone 750 mg oral tablet (3 sources) Nonsteroidal Anti-inflammatory Drug Start: 11-04-2023 take 1 tablet by mouth twice daily as needed nabumetone (Relafen) 750 MG tablet Take 750 mg by mouth 2 (two) times a day as needed 11/04/2023 Active nitroglycerin 0.4 mg sublingual tablet (20 sources) Nitrate Vasodilator Start: 08-26-2017 End: 11-15-2023 Nitroglycerin 0.4 mg Tablet, Sublingual Active 0.4 MG SUBLINGUAL Q5M as needed for Chest Pain August 26, 2017 12:00am Nitroglycerin 0. [address] 1 TABLET UNDER THE TONGUE EVERY 5 MINUTES UP TO 3 DOSES NEEDED FOR CHEST PAIN. Sublingual for 8 Active polyethylene glycol 3350 34969 mg powder for oral solution (1 source) Osmotic Laxative Start: 05-28-2024 predniSONE 5 mg oral tablet (20 sources) Start: 05-06-2023 take 1 tablet by mouth every twenty-four hours predniSONE 5 MG 1 tablet Orally Once a day for 7 days May, Active Start: 10-05-2022 End: 09-08-2023 Prednisone 10 mg tablets,dos e pack Discontinued 1 dose pk PO per package directions [...] 3 days Start: 07-14-2022 End: 09-18-2022 take 1 tablet by mouth twice daily Prednisone 20 mg tablet Discontinued 20 MG PO Twice daily 07 10July 13, 2022 11:00pm September 18, 2022 11:04am Start: 08-23-2017 End: 08-24-2017 take 2 tablets by mouth once daily at mealtime Prednisone 20 mg tablet Discontinued 40 MG PO Daily 10 August 23, 2017 12:00am August 27, 2017 12:00am August 24, 2017 2:31pm administer with food or milk Start: 08-23-2017 End: 08-24-2017 take 40 mg by mouth once daily at mealtime Prednisone Discontinued 40 MG PO Daily 10 August 23, 2017 1:00am August 24, 2017 3:31pm administer with food or milk sennosides, chcf 8.6 mg oral tablet (1 source) Start: 05-27-2024 sodium phosphate, dibasic 35 .5 mg/ml / sodium phosphate, monobasic 96.4 mg/ml enema (1 source) Start: 06-04-2024 End: 06-05-2024 [place]os[place] 46413 mg powder for oral suspension (7 sources) Start: 10-27-2024 Sodium Zirconi um Cyclosilicate (Lokelma) 10 gram powder in packet Active 10 GM PO Every 48 hours October 27, 2024 8:41am Start: 10-08-2024 End: 10-27-2024 Sodium Zirconium Cyclosilica te (Lokelma) 10 gram powder in packet Discontinued 10 GM PO Daily October 08, 2024 12:00am October 27, 2024 8:42am vitamin b12 1 mg oral tablet (20 sources) Vitamin B12 Start: 09-18-2022 take 1 tablet by mouth once daily in the morning Cyanocobalamin (Vitamin B-12) (Vitamin B-12) 1,000 mcg Tablet Active 1000 MCG PO Every morning September 18, 2022 12:00am Vitamin B 12 Act les (1 source) (1 source) Start: 05-24-2024 Completed/Discontinued Medications Medication Drug Class(es) Dates Sig (Normalized) Sig (Original) [id number] 200 actuat albuterol 0.09 mg/actuat metered dose inhaler (20 sources) beta2-Adrenergic Agonist Start: 08-23-2017 End: 08-24-2017 Albuterol Sulfate 90 mcg/actuation HFA aerosol inhaler Discontinued 2 INH INHALATION Every 4 hours as needed for shortness of breath or wheezing August 23, 2017 12:00am August 24, 2017 2:31pm administer with spacer amLODIPine 5 mg oral tablet (20 sources) Dihydropyridine Calcium Channel Sima Start: 05-28-2024 End: 05-28-2024 Start: 12-13-2020 End: 09-12-2021 take 1 tablet by mouth once daily Amlodipine 5 mg Tablet Discontinued 5 MG PO Daily December 13, 2020 12:00am September 12, 2021 9:01am Start: 08-23-2017 End: 12-14-2020 take 1 tablet by mouth once daily Amlodipine 10 mg Tablet Discontinued 10 MG PO Daily August 23, 2017 12:00am December 14, 2020 11:29am amoxicillin 500 mg / clavulanate 125 mg oral tablet (8 sources) Penicillin-class Antibacterial Start: 10-06-2024 End: 10-08-2024 take 1 tablet by mouth every eight hours Amoxicillin-Pot Clavulanate (Augmentin) 500-125 mg tablet Discontinued 1 TAB PO Every 8 hours 15 5 October 06, 2024 12:00am October 08, 2024 12:25pm B-12 TABS (7 sources) B-12 TABS TAKE 1 TABLET DAILY DIRECTED. Quantity: 0 Refills: 0 Ordered: 28-Mar-2022 DO Active carisoprodol 350 mg oral tablet (20 sources) Muscle Relaxant Start: 04-25-2021 End: 09-12-2021 take 1 tablet by mouth once daily Carisoprodol 350 mg tablet Discontinued 350 MG PO Daily April 24, 2021 11:00pm September 12, 2021 9:20am Start: 08-23-2017 End: 10-02-2017 take 1 tablet by mouth at bedtime Carisoprodol 350 mg Tablet Discontinued 350 MG PO Bedtime August 23, 2017 12:00am October 02, 2017 8:01pm ceFAZolin (ANCEF) 2000 mg in sterile water 20 mL IV syringe (1 source) Start: 05-28-2024 End: 05-28-2024 cefdinir 300 mg oral capsule (20 sources) Cephalosporin Antibacterial Start: 08-10-2020 End: 09-16-2020 take 1 capsule by mouth twice daily Cefdinir 300 mg capsule Discontinued 300 MG PO Twice daily 18 04August 10, 2020 12:00am September 16, 2020 11:24am cetirizine hydrochloride 10 mg oral tablet (15 sources) Histamine-1 Receptor Antagonist Start: 07-23-2024 End: 10-12-2024 take 1 tablet by mouth twice daily Cetirizine 10 mg tablet Discontinued 10 MG PO Twice daily July 22, 2024 11:00pm October 12, 2024 11:38am Start: 05-28-2024 take 1 tablet by garrick th in the morning cetirizine (ZyrTEC) 10 MG tablet Take 1 tablet by mouth in the morning and 1 tablet before bedtime. 05/31/2024 Active chlorhexidine gluconate 1.2 mg/ml mouthwash (20 sources) Start: 04-22-2021 End: 09-12-2021 Chlorhexidine Gluconate (Peridex) 0.12 % mouthwash Discontinued 15 ML MUCOUS MEM Twice daily April 21, 2021 11:00pm September 12, 2021 9:19am clopidogrel 75 mg oral tablet (20 sources) P2Y12 Platelet Inhibitor Start: 09-16-2020 End: 09-12-2021 take 1 tablet by mouth once daily Clopidogrel 75 mg Tablet Discontinued 75 MG PO Daily September 16, 2020 12:00am September 12, 2021 9:01am dapagliflozin 5 mg oral tablet (20 sources) Sodium-Glucose Cotransporter 2 Inhibitor Start: 09-23-2023 End: 12-25-2023 take 1 tablet by mouth once daily Dapagliflozin Propanediol (Farxiga) 5 mg tablet Discontinued 5 MG PO Daily November 24, 2023 12:00am December 25, 2023 10:03am 1 ml diphenhydrAMINE hydrochloride 50 mg/ml cartridge (1 source) Histamine-1 Receptor Antagonist Start: 05-29-2024 End: 05-29-2024 furosemide 40 mg oral tablet (20 sources) Loop Diuretic Start: 04-26-2024 End: 07-23-2024 Furosemide Discontinued MG PO April 26, 2024 12:00am July 23, 2024 10:54am Start: 04-22-2023 End: 10-15-2024 Furosemide 40 mg tablet Disc ontinued MG PO April 25, 2024 11:00pm July 23, 2024 9:54am Start: 09-12-2021 End: 11-23-2021 take 1 tablet by mouth once daily Furosemide 40 mg tablet Discontinued 40 MG PO Daily September 12, 2021 12:00am November 23, 2021 10:03am Start: 08-23-2017 End: 04-25-2021 take 1 tablet by mouth once daily as needed for edema Furosemide (Lasix) 40 mg Tablet Discontinued 40 MG PO Daily as needed for Edema August 23, 2017 12:00am April 25, 2021 9:48pm gabapentin 300 mg oral capsule (15 sources) Anti-epileptic Agent Start: 05-24-2024 End: 11-27-2024 take 1 capsule by mouth twice daily Gabapentin 300 mg capsule Discontinued 300 MG PO Twice daily July 22, 2024 11:00pm October 12, 2024 11:28am glipiZIDE 5 mg oral tablet (20 sources) Sulfonylurea Start: 10-04-2024 End: 10-12-2024 take 1 tablet by mouth once daily Glipizide 5 mg tablet Discontinued 5 MG PO Daily October 04, 2024 12:00am October 12, 2024 11:27am Start: 05-25-2024 End: 05-25-2024 Start: 12-25-2023 End: 03-22-2024 take 1 tablet by mouth once daily Glipizide 5 mg tablet Discontinued 5 MG PO Daily December 24, 2023 11:00pm March 22, 2024 10:01am Start: 08-23-2017 End: 08-10-2020 take 1 tablet by mouth twice daily Glipizide 10 mg Tablet Discontinued 10 MG PO Twice daily August 23, 2017 12:00am August 10, 2020 9:11am take 1 tablet by garrick th twice daily glipiZIDE ER 10 MG Oral Tablet Extended Release 24 Hour Take 1 tablet twice daily Quantity: 0 Refills: 0 Ordered: 19-Sep-2021 DO Active insulin glargine 100 unt/ml injectable solution (20 sources) Insulin Analog Start: 05-25-2024 End: 05-25-2024 Start: 12-25-2023 End: 10-14-2024 inject 10 [IU] by subcutaneous injection twice daily Insulin Glargine (Lantus Solostar U-100 Insulin) 100 unit/mL (3 mL) insulin pen Active 10 UNIT SUBCUT Twice daily October 14, 2024 7:54am Start: 08-19-2022 End: 12-25-2023 inject 10 [IU] by subcutaneous injection once daily Insulin Glargine (Lantus Solostar U-100 Insulin) 100 unit/mL (3 mL) insulin pen Discontinued 10 UNIT SUBCUT Daily November 25, 2023 12:42pm December 25, 2023 9:40am Start: 08-19-2022 Lantus SoloSta r 100 UNIT/ML 8 U Subcutaneous bid Aug, Active Start: 08-19-2022 Lantus SoloSta r 100 UNIT/ML 10 U Subcutaneous Aug, Active Start: 11-23-2021 End: 05-29-2024 Start: 08-23-2017 End: 11-23-2021 inject 50 [IU] by subcutaneous injection once daily Insulin Glargine (Lantus U-100 Insulin) 100 unit/mL Solution Discontinued 50 UNIT SUBCUT Daily August 26, 2017 12:59pm November 23, 2021 10:04am Insulin Glargine (Lantus U-100 Insulin) 100 unit/mL solution (20 sources) Start: 09-08-2023 End: 11-25-2023 inject 8 [IU] by subcutaneous injection twice daily Insulin Glargine (Lantus U-100 Insulin) 100 unit/mL solution Discontinued 8 UNIT SUBCUT Twice daily September 08, 2023 2:59pm November 25, 2023 12:42pm Further refills per PCP Start: 09-08-2023 End: 11-25-2023 inject 8 [IU] [...] Quinolone Antimicrobial Start: 08-26-2017 End: 10-02-2017 Levofloxacin 750 mg Tablet Discontinued 750 MG PO Q48H 0 August 26, 2017 12:00am October 02, 2017 8:01pm Start: 08-23-2017 End: 08-24-2017 take 1 tablet by mouth once daily Levofloxacin (Levaquin) 750 mg tablet Discontinued 750 MG PO Daily 10 August 23, 2017 12:00am September 01, 2017 12:00am August 24, 2017 2:31pm lisinopril 20 mg oral tablet (20 sources) Angiotensin Converting Enzyme Inhibitor Start: 10-02-2017 End: 12-10-2018 take 2 tablets by mouth once daily Lisinopril 20 mg tablet Discontinued 40 MG PO Daily October 02, 2017 12:00am December 10, 2018 6:50pm Start: 10-02-2017 End: 12-10-2018 take 40 mg by mouth once daily Lisinopril Discontinued 40 MG PO Daily October 02, 2017 1:00am December 10, 2018 7:50pm Start: 08-23-2017 End: 08-10-2020 take 1 tablet by mouth once daily Lisinopril 40 mg Tablet Discontinued 40 MG PO Daily August 23, 2017 12:00am August 10, 2020 9:11am metFORMIN hydrochloride 500 mg oral tablet (20 sources) Biguanide Start: 08-08-2020 End: 12-25-2023 take 1 tablet by mouth twice daily Metformin 500 mg tablet Discontinued 500 MG PO Twice daily August 08, 2020 12:00am December 25, 2023 9:39am On Hold: Until renal function improves take 1 tablet by garrick th every twelve hours at mealtime metFORMIN HCl - 500 MG Oral Tablet TAKE 1 TABLET EVERY 12 HOURS WITH FOOD. Quantity: 0 Refills: 0 Ordered: 15-Dec-2021 DO Active metoprolol tartrate 25 mg oral tablet (20 sources) beta-Adrenergic Sima Start: 08-26-2017 End: 10-02-2017 take 1 tablet by mouth twice daily Metoprolol Tartrate 25 mg Tablet Discontinued 25 MG PO Twice daily 60 30 August 26, 2017 12:00am October 02, 2017 8:01pm 1 ml morphine sulfate 4 mg/ml cartridge (1 source) Opioid Agonist Start: 05-23-2024 End: 05-23-2024 Multi Vitamin Daily Oral Tablet (2 sources) take 1 tablet by mouth once daily Multi Vitamin Daily Oral Tablet TAKE 1 TABLET DAILY. Quantity: 0 Refills: 0 Ordered: 28-Mar-2022 DO Active Multi Vitamin Daily TABS (5 sources) Multi Vitamin Daily TABS TAKE 1 TABLET DAILY. Quantity: 0 Refills: 0 Ordered: 28-Mar-2022 DO Active Dfjaoihe-Hrm-Sdgd ous Gluconate (Centrum) 9 mg iron/ 15 mL (15 mL) Liquid (20 sources) Start: 08-08-2020 End: 10-27-2024 Eykwtmgg-Jmu-Awjfj us Gluconate (Centrum) 9 mg iron/ 15 mL (15 mL) Liquid Discontinued 15 ML PO Daily August 08, 2020 12:00am October 27, 2024 8:42am Start: 08-08-2020 Jzmkhrrk-Wkv-Q errous Gluconate (Centrum) 9 mg iron/ 15 mL (15 mL) Liquid Active 15 ML PO Daily August 08, 2020 12:00am Start: 08-08-2020 Zbpqveah-Jyu-J errous Gluconate (Centrum) 9 mg iron/ 15 mL (15 mL) Liquid Active 15 ML PO Daily August 08, 2020 1:00am 2 ml ondansetron 2 mg/ml injection (1 source) Serotonin-3 Receptor Antagonist Start: 05-27-2024 End: 05-27-2024 Start: 05-27-2024 End: 05-27-2024 pantoprazole 40 mg delayed release oral tablet (20 sources) Proton Pump Inhibitor Start: 10-04-2024 End: 10-12-2024 Pantoprazole 40 mg tablet,delayed release (DR/EC) Discontinued MG PO October 04, 2024 12:00am October 04, 2024 7:54pm Start: 09-11-2023 End: 07-23-2024 take 1 tablet by mouth once daily Pantoprazole 40 mg tablet,delayed release (DR/EC) Discontinued 40 MG PO Daily 90 March 15, 2024 9:56am July 23, 2024 9:55am penicillin v potassium 500 mg oral tablet (20 sources) Start: 04-22-2021 End: 06-21-2021 take 1 tablet by mouth twice daily Penicillin V Potassium 500 mg tablet Discontinued 500 MG PO Twice daily 20 April 21, 2021 11:00pm June 21, 2021 6:24am rOPINIRole 1 mg oral tablet (20 sources) Nonergot Dopamine Agonist Start: 08-23-2017 End: 12-10-2018 take 1 tablet by mouth at bedtime Ropinirole 1 mg Tablet Discontinued 1 MG PO Bedtime August 23, 2017 12:00am December 10, 2018 6:50pm saccharomyces boulardii 250 mg oral capsule (20 sources) Start: 08-10-2020 End: 09-12-2021 take 1 capsule by mouth twice daily at mealtime Saccharomyces Boulardii (Florastor) 250 mg capsule Discontinued 250 MG PO Twice daily August 10, 2020 12:00am September 12, 2021 9:01am open capsule; add to semi-solid food (e.g., applesauce, oatmeal, yogurt) or drink (e.g., water, juice, milk, formula) SITagliptin 100 mg oral tablet (20 sources) Dipeptidyl Peptidase 4 Inhibitor Start: 09-12-2021 End: 12-25-2023 Sitagliptin Phosphate (Januvia) 100 mg tablet Discontinued 50 MG PO Twice daily September 12, 2021 12:00am December 25, 2023 10:03am Start: 09-12-2021 Sitagliptin Ph osphate (Januvia) 100 mg tablet Active 50 MG PO Daily September 12, 2021 12:00am Start: 06-25-2021 End: 10-16-2023 take 1 tablet by mouth once daily Januvia 100 mg tablet Take 1 tablet (100 mg) by mouth once daily. 0 08/09/2023 10/16/2023 Discontinued (Therapy completed) Start: 06-25-2021 take 1 tablet by garrick every twenty-four hours Januvia 50 MG 1 tablet Orally Once a day Jun, Active take 1 tablet by garrick th twice daily Januvia 50 MG Oral Tablet Take 1 tablet twice daily Quantity: 0 Refills: 0 Ordered: 28-Mar-2022 DO Active 1000 ml sodium chloride 9 mg /ml injection (9 sources) Start: 05-27-2024 End: 05-29-2024 Start: 05-23-2024 Start: 05-23-2024 End: 05-31-2024 spironolactone 25 mg oral tablet (20 sources) Aldosterone Antagonist Start: 07-23-2024 End: 10-06-2024 take 1 tablet by mouth once daily Spironolactone 25 mg tablet Discontinued 25 MG PO Daily 90 October 04, 2024 12:01pm October 06, 2024 1:48pm Start: 06-01-2024 ticagrelor 90 mg oral tablet (20 sources) Start: 08-26-2017 End: 08-08-2020 take 1 tablet by mouth twice daily Ticagrelor (Brilinta) 90 mg Tablet Discontinued 90 MG PO Twice daily 360 180 August 26, 2017 12:00am August 08, 2020 7:33am (5 sources) Start: 05-29-2024 End: 05-29-2024 Start: 05-28-2024 [Order 1 Start ] Name: famotidine (PEPCID) 20 mg in sodium chloride (PF) 0.9 % 10 mL injection Signed Summary: 20 mg, IntraVENous, DAILY, First dose on Fri05/28/24 at 0900, Until Discontinued, IV Push over minimum of 2 minutes - Dilute with 10 mL NS Administer if oral route cannot be used [Order 1 End] [Order 2 Start] Name: famotidine (PEPCID) tablet 20 mg Signed Summary: 20 mg, Oral, DAILY, First dose on Fri05/28/24 at 0900, Until Discontinued [Order 2 End] Start: 05-24-2024 End: 05-29-2024 Start: 05-24-2024 [Order 1 Start ] Name: dextrose bolus 10% 125 mL Signed Summary: 125 mL, IntraVENous, at 937.5 mL/hr, Administer over 8 Minutes, PRN, Other, Blood glucose 40 - 69 mg/dL and patient NOT ALERT or NPO, Starting on Fri05/24/24 at 0430, Repeat blood glucose in 15 minutes. If blood glucose remains LESS THAN 70 mg/dL, repeat treatment and recheck blood glucose in 15 minutes x 2. If using glycemic management system, dose as instructed per system. If blood glucose remains LESS THAN 70 mg/dL after 2 intravenous boluses start dextrose 10% at 100 mL/hour and notify provider. [Order 1 End] [Order 2 Start] Name: dextrose bolus 10% 250 mL Signed Summary: 250 mL, IntraVENous, at 937.5 mL/hr, Administer over 16 Minutes, PRN, Other, Blood glucose LESS THAN 40 mg/dL and patient NOT ALERT or NPO, Starting on 05/24/24 at 0430, Repeat blood glucose in 15 minutes. If blood glucose remains LESS THAN 70 mg/dL, repeat treatment and recheck blood glucose in 15 minutes x 2. If using glycemic management system, dose as instructed per system. If blood glucose remains LESS THAN 70 mg/dL after 2 intravenous boluses start dextrose 10% at 100 mL/hour and notify provider. [Order 2 End] Start: 05-23-2024 [Order 1 Start ] Name: ondansetron (ZOFRAN-ODT) disintegrating tablet 4 mg Signed Summary: 4 mg, Oral, EVERY 8 HOURS PRN, Starting on 05/23/24 at 2216, Until Discontinued, Nausea, Vomiting [Order 1 End] [Order 2 Start] Name: ondansetron (ZOFRAN) injection 4 mg Signed Summary: 4 mg, IntraVENous, EVERY 6 HOURS PRN, Starting on 05/23/24 at 2216, Until Discontinued, Nausea, Vomiting, Administer if oral route cannot be used. [Order 2 End] Problems Active Problems Problem Classification Problem Date Documented Date Episodic/Chronic Abdominal pain (20 sources) Abdominal pain; Translations: [Unspecified abdominal pain] Onset: 1 Resolved: 4 Episodic Acquired foot deformities (20 sources) Left foot drop; Translations: [Foot drop, left foot] Onset: 2 Resolved: 2 Episodic Acute and unspecified renal failure (20 sources) Injury of kidney; Translations: [Acute kidney failure, unspecified] Onset: 4 Resolved: 4 08-08-2020 Episodic Acute bronchitis (20 sources) Acute bronchitis; Translations: [Acute bronchitis, unspecified] Onset: 4 Resolved: 4 08-23-2017 Episodic Acute myocardial infarction (20 sources) Myocardial infarction; Translations: [ST elevation (STEMI) myocardial infarction of unspecified site] 08-25-2017 Chronic Bacterial infection; unspecified site (1 source) Unspecified Escherichia coli [E. coli] as the cause of diseases classified elsewhere; Translations: [Unspecified Escherichia coli [E. coli] as the cause of diseases classified elsewhere] Onset: 5 Episodic Chronic kidney disease (20 sources) Chronic kidney disease stage 3A ; Translations: [Chronic kidney disease, Stage III (moderate)] Onset: 3 Resolved: 4 09-15-2020 Chronic Chronic kidney disease (11 sources) Chronic kidney disease; Translations: [Stage 3b chronic kidney disease (CKD)] Onset: 2 Resolved: 2 Conditions associated with dizziness or vertigo (20 sources) Lightheadedness; Translations: [Dizziness and giddiness] Onset: 4 Resolved: 4 04-26-2021 Episodic Coronary atherosclerosis and other heart disease (20 sources) Coronary atherosclerosis; Translations: [Coronary atherosclerosis of [place] coronary artery] Onset: 2 Resolved: 4 Chronic Coronary atherosclerosis and other heart disease (20 sources) Patient post percutaneous transluminal coronary angioplasty; Translations: [Percutaneous transluminal coronary angioplasty status] Onset: 3 Resolved: 4 12-13-2020 Episodic Comment on above: 2017 RCA; [...] Translations: [Anemia in chronic kidney disease] Onset: 5 Chronic Deficiency and other anemia (20 sources) Anemia; Translations: [Anemia, unspecified] Episodic Diabetes mellitus with complications (20 sources) Insulin treated type 2 diabetes mellitus; Translations: [Type 2 diabetes mellitus with diabetic chronic kidney disease] Onset: 1 Resolved: 4 Chronic Diabetes mellitus without complication (20 sources) Diabetes mellitus; Translations: [Diabetes mellitus without mention of complication, type II or unspecified type, not stated as uncontrolled] Onset: 3 Resolved: 4 09-15-2020 Chronic Diabetes mellitus without complication (16 sources) Acute hyperglycemia; Translations: [Hyperglycemia, unspecified] 10-04-2024 Episodic Disorders of lipid metabolism (20 sources) Hyperlipidemia; Translations: [Other and unspecified hyperlipidemia] Onset: 3 Resolved: 4 09-15-2020 Chronic Disorders of teeth and jaw (20 sources) Toothache; Translations: [Other specified disorders of teeth and supporting structures] Onset: 4 Resolved: 4 04-22-2021 Episodic Diverticulosis and diverticulitis (20 sources) Diverticular disease of colon; Translations: [Diverticulosis of intestine, part unspecified, without perforation or abscess without bleeding] Onset: 2 Resolved: 2 Chronic E Codes: Fall (20 sources) Fall; Translations: [Unspecified fall, initial encounter] Onset: 4 Resolved: 4 07-22-2023 Episodic Essential hypertension (20 sources) Essential hypertension; Translations: [Unspecified essential hypertension] Onset: 1 Resolved: 4 Chronic Fluid and electrolyte disorders (20 sources) Hyperkalemia; Translations: [Hyperkalemia] Onset: 4 08-30-2024 Episodic Fracture of upper limb (20 sources) Fracture of metacarpal bone; Translations: [Unspecified fracture of fifth metacarpal bone, right hand, initial encounter for closed fracture] Onset: 4 Resolved: 4 07-22-2023 Episodic Gastritis and duodenitis (5 sources) Chronic gastritis; Translations: [Unspecified chronic gastritis without bleeding] Chronic Gastritis and duodenitis (20 sources) Duodenitis; Translations: [Duodenitis without bleeding] Onset: 4 Resolved: 4 09-09-2023 Episodic Genitourinary symptoms and ill-defined conditions (20 sources) Proteinuria; Translations: [Proteinuria, unspecified] Onset: 4 Resolved: 4 09-09-2023 Episodic Hemorrhoids (20 sources) Hemorrhoids; Translations: [Unspecified hemorrhoids] Onset: 2 Resolved: 2 Episodic Hypertension with complications and secondary hypertension (20 sources) Hypertensive emergency; Translations: [Hypertensive emergency] Onset: 4 Resolved: 4 09-08-2023 Chronic Malaise and fatigue (20 sources) Fatigue; Translations: [Chronic fatigue, unspecified] Chronic Nausea and vomiting (20 sources) Nausea; Translations: [Nausea] Onset: 4 Resolved: 4 10-03-2022 Episodic Nonmalignant breast conditions (9 sources) Gynecomastia; Translations: [Hypertrophy of breast] Onset: 5 10-12-2024 Episodic Nonspecific chest pain (20 sources) Chest pain, unspecified; Translations: [Musculoskeletal chest pain] Onset: 7 11-23-2021 Episodic Other acquired deformities (20 sources) Lumbar spondylolisthesis; Translations: [Spondylolisthesis, lumbar region] Onset: 4 Resolved: 4 10-03-2022 Episodic Other acquired deformities (6 sources) Spondylolisthesis, lumbar region; Translations: [Acquired spondylolisthesis] Onset: 2 Resolved: 2 Episodic Other aftercare (20 sources) Long-term current use of insulin; Translations: [MCFP (current) use of insulin] Episodic Other aftercare (3 sources) 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; Translations: [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 ([facility])] Onset: 3 Episodic Other aftercare (1 source) Encounter for follow-up examination after completed treatment for conditions other than malignant neoplasm Episodic Other and unspecified benign neoplasm (20 sources) Tubular adenoma ; Translations: [Benign neoplasm, unspecified site] Episodic Other connective tissue disease (20 sources) Swelling of left lower limb; Translations: [Other specified soft tissue disorders] Onset: 4 Resolved: 4 09-15-2020 Episodic Other connective tissue disease (20 sources) Paraparesis; Translations: [Other symptoms and signs involving the musculoskeletal system] 10-04-2022 Episodic Other connective tissue disease (5 sources) Arthrodesis status; Translations: [Arthrodesis status] Onset: 4 Episodic Other diseases of kidney and ureters (20 sources) Perinephritis; 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, unspecified] Onset: 4 Resolved: 4 08-08-2020 Chronic Other diseases of kidney and ureters (16 sources) Secondary hyperparathyroidism; Translations: [Secondary hyperparathyroidism of renal origin] Onset: 4 Resolved: 4 04-24-2024 Chronic Other diseases of kidney and ureters (13 sources) Secondary hyperparathyroidism of renal origin; Translations: [Secondary hyperparathyroidism (of renal origin)] Onset: 5 Chronic Other endocrine disorders (20 sources) Hypoglycemia; Translations: [Hypoglycemia, unspecified] Onset: 4 Resolved: 4 12-13-2020 Chronic Other hereditary and degenerative nervous system conditions (2 sources) 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; Translations: [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] Onset: 4 Chronic Other injuries and conditions due to external causes (8 sources) At risk for falls ; Translations: [History of fall] Episodic Other nervous system disorders (20 sources) Paresthesia of left upper limb; Translations: [Paresthesia of skin] Onset: 4 Resolved: 4 10-02-2017 Episodic Other nutritional; endocrine; and metabolic disorders (20 sources) Obesity; Translations: [Obesity, unspecified] Onset: 4 Resolved: 4 09-15-2020 Chronic Other nutritional; endocrine; and metabolic disorders (2 [...] malignant neoplasm of prostate] Onset: 1 Resolved: 4 Episodic Pancreatic disorders (not diabetes) (20 sources) Chronic pancreatitis; Translations: [Other chronic pancreatitis] Onset: 4 Resolved: 4 09-11-2023 Chronic Residual codes; unclassified (20 sources) Bilateral lower limb edema; Translations: [Edema] Onset: 4 Resolved: 4 12-13-2020 Episodic Skin and subcutaneous tissue infections (20 sources) Cellulitis of face; Translations: [Cellulitis of face] Onset: 4 Resolved: 4 07-14-2022 Episodic Spondylosis; intervertebral disc disorders; other back problems (20 sources) Lumbar spondylosis; Translations: [Spondylosis without myelopathy or radiculopathy, lumbar region] Chronic Spondylosis; intervertebral disc disorders; other back problems (20 sources) Radiculopathy, lumbar region; Translations: [Spinal stenosis of lumbar region] Onset: 6 Resolved: 4 Episodic Sprains and strains (20 sources) Sprain of knee; Translations: [Sprain of unspecified site of right knee, initial encounter] Onset: 4 Resolved: 4 07-22-2023 Episodic Syncope (15 sources) Near syncope; Translations: [Syncope and collapse] Onset: 5 10-06-2024 Episodic Thyroid disorders (20 sources) Thyroid nodule; Translations: [Nontoxic single thyroid nodule] Onset: 2 Resolved: 2 Chronic Unclassified (2 sources) Chest pain, unspecified / R07.9(ICD-9) Onset: 7 Urinary tract infections (20 sources) Pyelonephritis; Translations: [Tubulo-interstitial nephritis, not specified as acute or chronic] Onset: 4 Resolved: 4 08-08-2020 Episodic Past or Other Problems Problem Classification Problem Date Documented Da te Episodic/Chronic Other and ill-defined heart disease (3 sources) Heart disease; Translations: [Heart disease, unspecified] Onset: 06-23-2024 Resolved: 06-23-2024 06-23-2024 Chronic Other connective tissue disease (5 sources) Other symptoms and signs involving the musculoskeletal system; Translations: [Other musculoskeletal symptoms referable to limbs] Onset: 05-14-2022 Resolved: 06-23-2024 Episodic Other connective tissue disease (5 sources) Peripheral neurogenic pain; Translations: [Neuralgia and neuritis, unspecified] Onset: 05-23-2024 Resolved: 06-23-2024 06-23-2024 Episodic Other connective tissue disease (6 sources) Pain of right lower leg; Translations: [Pain in right lower leg] Onset: 05-24-2024 Resolved: 06-23-2024 06-23-2024 Episodic Other connective tissue disease (1 source) Pain in right lower leg; Translations: [Pain in right lower leg] Onset: 05-24-2024 Episodic Other gastrointestinal disorders (1 source) Flatulence Onset: 10-31-2021 Resolved: 10-31-2021 Episodic Other non-traumatic joint disorders (1 source) Pain in right shoulder; Translations: [Pain in right shoulder] Onset: 05-23-2024 Episodic Other non-traumatic joint disorders (1 source) Pain in left shoulder; Translations: [Pain in left shoulder] Onset: 05-23-2024 Episodic Other non-traumatic joint disorders (1 source) Shoulder pain; Translations: [Pain in right shoulder] 05-23-2024 Episodic Other nutritional; endocrine; and metabolic disorders (12 sources) Body mass index 25-29 - overweight; Translations: [Body Mass Index 28.0-28.9, adult] Resolved: 09-19-2021 Episodic Other nutritional; endocrine; and metabolic disorders (19 sources) Overweight in adulthood with body mass index of 25 or more but less than 30; Translations: [Overweight] Onset: 10-16-2023 Resolved: 06-23-2024 10-16-2023 Episodic Paralysis (5 sources) Paraparesis; Translations: [Paraplegia, unspecified] Onset: 05-25-2024 Resolved: 06-23-2024 06-23-2024 Chronic Residual codes; unclassified (3 sources) Other specified health status; Translations: [Other drug allergy] Onset: 04-29-2024 Resolved: 06-23-2024 06-23-2024 Episodic Residual codes; unclassified (3 sources) History of lumbar discectomy; Translations: [Other specified postprocedural states] Onset: 10-31-2015 Resolved: 06-23-2024 06-23-2024 Episodic Substance-related disorders (15 sources) Occasional tobacco smoker; Translations: [Tobacco use disorder] Onset: 09-24-2023 Resolved: 06-23-2024 10-16-2023 Chronic Comment on above: 1-2 packs weekly; 1 pack every 2 weeks ; Unclassified (1 source) Onset: 10-16-2023 10-16-2023 Viral infection (3 sources) Herpes zoster; Translations: [Zoster without complications] Onset: 06-23-2024 Resolved: 06-23-2024 06-23-2024 Episodic Results Test Name Value Interpretation Reference Range Facility [facility] 10-25-2024 Potassium [Moles/Vol] 3.2 mmol/L Low 3.5-5.1 [facility] Comment on above: Result Comment: PERF ORMED BY: [place] [id number] PATHOLOGIST INFECTION CONTROL SPECIALIST SONJA FALLON M.D. Performed By: #### P HOS, MG, [id number], URIC #### [address] Potassium [Moles/volume] in Serum or PlasmaOrdered By: Lolita Adorno on 10-25-2024 Potassium [Moles/Vol] Potassium [Moles/v olume] in Serum or Plasma Low 3.5-5.1 [facility] Alanine aminotransferase [En zymatic activity/volume] in Serum or PlasmaOrdered By: Lolita Adorno on 10-20-2024 ALT [Catalytic activity/Vol] Alanine aminotransferase [Enzymatic activity/volume] in Serum or Plasma [facility] Albumin [Mass/volume] in Ser um or Plasma by Bromocresol green (BCG) dye binding methoOrdered By: Lolita Adorno on 10-20-2024 Albumin BCG dye [Mass/Vol] Albumin [Mass/volume] in Serum or Plasma by Bromocresol green (BCG) dye binding metho 3.5-5.7 [facility] Alkaline phosphatase [Enzyma tic activity/volume] in Serum or PlasmaOrdered By: Lolita Adorno on 10-20-2024 ALP [Catalytic activity/Vol] Alkaline phosphatase [Enzymatic activity/volume] in Serum or Plasma 34-104 [facility] Aspartate aminotransferase [ Enzymatic activity/volume] in Serum or PlasmaOrdered By: Lolita Adorno on 10-20-2024 AST [Catalytic activity/Vol] Aspartate aminotransferase [Enzymatic activity/volume] in Serum or Plasma 13-39 [facility] Basophils Auto (Bld) [#/Vol] Ordered By: Lolita Adorno on 10-20-2024 Basophils (Bld) [#/Vol] Automated basophil count 0.0-0.2 [facility] Basophils/100 WBC Auto (Bld) Ordered By: Lolita Adorno on 10-20-2024 Basophils/100 WBC (Bld) Automated basophil % . [facility] Bilirubin.total [Mass/volume ] in Serum or PlasmaOrdered By: Lolita Adorno on 10-20-2024 Bilirubin [Mass/Vol] Bilirubin.total [Mass/volume] in Serum or Plasma 0.3-1.0 [facility] Calcium [Mass/volume] in Ser um or PlasmaOrdered By: Lolita Adorno on 10-20-2024 Calcium [Mass/Vol] Calcium [Mass/volume ] in Serum or Plasma 8.6-10.3 [facility] Carbon dioxide, total [Moles /volume] in Serum or PlasmaOrdered By: Lolita Adorno on 10-20-2024 CO2 [Moles/Vol] Carbon dioxide, tota l [Moles/volume] in Serum or Plasma 21.0-31.0 [facility] Chloride [Moles/volume] in S antolin or PlasmaOrdered By: Lolita Adorno on 10-20-2024 Chloride [Moles/Vol] Chloride [Moles/vol ume] in Serum or Plasma 98-107 [facility] Complete Blood Count Auto Di ffon 10-20-2024 Basophils (Bld) [#/Vol] 0.0 10*3/uL Normal 0.0-0.2 [facility] Comment on above: Result Comment: PERF ORMED BY: [place] [address] PATHOLOGIST INFECTION CONTROL SPECIALIST SONJA FALLON M.D. Performed By: #### P HOS, MG, [id number], URIC #### [address] Basophils/100 WBC (Bld) 0.4 % Normal . [facility] Comment on above: Performed By: #### P HOS, MG, [id number], URIC #### [address] Eosinophils (Bld) [#/Vol] 0.3 10*3/uL Normal 0.0-0.45 [facility] Comment on above: Performed By: #### P HOS, MG, [id number], URIC #### [address] Eosinophils/100 WBC (Bld) 2.8 % Normal . [facility] Comment on above: Performed By: #### P HOS, MG, [id number], URIC #### [address] Erythrocyte distribution width (RBC) [Ratio] 13.2 % Normal 12.0-14.8 [facility] Comment on above: Performed By: #### P HOS, MG, [id number], URIC #### [address] Hematocrit (Bld) [Volume fraction] 36.0 % Low 38.8-50.0 [facility] Comment on above: Performed By: #### P HOS, MG, [id number], URIC #### [address] Hemoglobin (Bld) [Mass/Vol] 12.2 g/dL Low 13.0-17.0 [facility] Comment on above: Performed By: #### P HOS, MG, [id number], URIC #### [address] Lymphocytes (Bld) [#/Vol] 2.2 10*3/uL Normal 1.00-4.8 [facility] Comment on above: Performed By: #### P HOS, MG, [id number], URIC #### [address] Lymphocytes/100 WBC (Bld) 21.6 % Normal . [facility] Comment on above: Performed By: #### P HOS, MG, [id number], URIC #### [address] MCH (RBC) [Entitic mass] 27.8 pg Normal 27.5-35.2 [facility] Comment on above: Performed By: #### P HOS, MG, [id number], URIC #### [address] MCV (RBC) [Entitic vol] 82.3 fL Low 83.5-101 [facility] Comment on above: Performed By: #### P HOS, MG, [id number], URIC #### [address] Mean Corpuscular HGB Conc 33.8 g/dL Normal 32.5-35.6 [facility] Comment on above: Performed By: #### P HOS, MG, [id number], URIC #### [address] Monocytes (Bld) [#/Vol] 0.8 10*3/uL Normal 0.0-0.8 [facility] Comment on above: Performed By: #### P HOS, MG, [id number], URIC #### [address] Monocytes/100 WBC (Bld) 8.1 % Normal . [facility] Comment on above: Performed By: #### P HOS, MG, [id number], URIC #### [address] Neutrophils (Bld) [#/Vol] 7.0 10*3/uL Normal 1.8-7.7 [facility] Comment on above: Performed By: #### P HOS, MG, [id number], URIC #### [address] Neutrophils/100 WBC (Bld) 67.1 % Normal . [facility] Comment on above: Performed By: #### P HOS, MG, [id number], URIC #### [address] NRBC% 0.1 /100{WBC} Normal 0-0.5 [facility] Comment on above: Performed By: #### P HOS, MG, [id number], URIC #### [address] Platelet mean volume (Bld) [Entitic vol] 9.1 fL Normal 6.6-10.1 [facility] Comment on above: Performed By: #### P HOS, MG, [id number], URIC #### [address] Platelets (Bld) [#/Vol] 194 10*3/uL Normal 150-450 [facility] Comment on above: Performed By: #### P HOS, MG, [id number], URIC #### [address] RBC (Bld) [#/Vol] 4.38 10*6/uL Normal 3.90-5.60 [facility] Comment on above: Performed By: #### P HOS, MG, [id number], URIC #### [place] [address] [place] WBC (Bld) [#/Vol] 10.4 10*3/uL Normal 4.1-10.5 [facility] Comment on above: Performed By: #### P HOS, MG, [id number], URIC #### [address] Comprehensive Metabolic Pane jered 10-20-2024 Albumin [Mass/Vol] 4.3 g/dL Normal 3.5-5.7 [facility] Comment on above: Performed By: #### P HOS, MG, [id number], URIC #### [address] Albumin/Globulin [Mass ratio] 1.7 {ratio} Normal [facility] Comment on above: Performed By: #### P HOS, MG, [id number], URIC #### [address] ALP [Catalytic activity/Vol] 87 U/L Normal 34-104 [facility] Comment on above: Result Comment: PERF ORMED BY: [place] [address] PATHOLOGIST INFECTION CONTROL SPECIALIST SONJA FALLON M.D. Performed By: #### P HOS, MG, [id number], URIC #### [address] ALT [Catalytic activity/Vol] 10 U/L Normal 7-52 [facility] Comment on above: Performed By: #### P HOS, MG, [id number], URIC #### [address] Anion gap [Moles/Vol] 14.8 mmol/L Normal 6.0-15.0 [facility] Comment on above: Performed By: #### P HOS, MG, [id number], URIC #### [address] AST [Catalytic activity/Vol] 17 U/L Normal 13-39 [facility] Comment on above: Performed By: #### P HOS, MG, [id number], URIC #### [address] Bilirubin [Mass/Vol] 0.8 mg/dL Normal 0.3-1.0 [facility] Comment on above: Performed By: #### P HOS, MG, [id number], URIC #### [address] Calcium [Mass/Vol] 9.3 mg/dL Normal 8.6-10.3 [facility] Comment on above: Performed By: #### P HOS, MG, [id number], URIC #### [address] Chloride [Moles/Vol] 99 mmol/L Normal 98-107 [facility] Comment on above: Performed By: #### P HOS, MG, [id number], URIC #### [address] CO2 [Moles/Vol] 29.2 mmol/L Normal 21.0-31.0 [facility] Comment on above: Performed By: #### P HOS, MG, [id number], URIC #### [address] Creatinine [Mass/Vol] 2.85 mg/dL High 0.70-1.30 [facility] Comment on above: Performed By: #### P HOS, MG, [id number], URIC #### [address] Estimated GFR 22.474 mL/Min Normal [facility] Comment on above: Performed By: #### P HOS, MG, [id number], URIC #### [address] Globulin (S) [Mass/Vol] 2.5 g/dL Normal [facility] Comment on above: Performed By: #### P HOS, MG, [id number], URIC #### [address] Glucose [Mass/Vol] 198 mg/dL High 70-100 [facility] Comment on above: Result Comment: [place] Glucose Reference Range is dependent on time and content of last meal. Glucose of more than 200 mg/dL in a nonstressed, ambulatory subject supports the diagnosis of Diabetes Mellitus. ADA recommended reference range Performed By: #### P HOS, MG, [id number], URIC #### [address] [place] [address] [place] Potassium [Moles/Vol] 3.0 mmol/L Low 3.5-5.1 [facility] Comment on above: Performed By: #### P HOS, MG, [id number], URIC #### [facility] [address] Protein [Mass/Vol] 6.8 g/dL Normal 6.4-8.9 [facility] Comment on above: Performed By: #### P HOS, MG, [id number], URIC #### [address] Sodium [Moles/Vol] 140 mmol/L Normal 136-145 [facility] Comment on above: Performed By: #### P HOS, MG, [id number], URIC #### [address] Urea nitrogen [Mass/Vol] 68 mg/dL High 7-25 [facility] Comment on above: Performed By: #### P HOS, MG, [id number], URIC #### [address] Creatinine [Mass/volume] in Serum or PlasmaOrdered By: Lolita Adorno on 10-20-2024 Creatinine [Mass/Vol] Creatinine [Mass/v olume] in Serum or Plasma High 0.70-1.30 [facility] Eosinophils Auto (Bld) [#/Vo l]Ordered By: Lolita Adorno on 10-20-2024 Eosinophils (Bld) [#/Vol] Automated eosinophil count 0.0-0.45 [facility] Eosinophils/100 WBC Auto (Bl d)Ordered By: Lolita Adorno on 10-20-2024 Eosinophils/100 WBC (Bld) Automated eosinophil % . [facility] Erythrocyte distribution wid th Auto (RBC) [Ratio]Ordered By: Lolita Adorno on 10-20-2024 Erythrocyte distribution width (RBC) [Ratio] Erythrocyte distribution width [Ratio] by Automated count 12.0-14.8 [facility] Globulin Calc (S) [Mass/Vol] Ordered By: Lolita Adorno on 10-20-2024 Globulin (S) [Mass/Vol] Serum globulin measurement by calculation (mass/volume) [facility] Glucose [Mass/volume] in Ser um or PlasmaOrdered By: Lolita Adorno on 10-20-2024 Glucose [Mass/Vol] Glucose [Mass/volume ] in Serum or Plasma High 70-100 [facility] Comment on above: ADA recommended refe rence rangeRandom Glucose Reference Range is dependent on time and content of last meal. Glucose of more than 200 mg/dL in a nonstressed, ambulatory subject supports the diagnosis of Diabetes Mellitus. Hematocrit Auto (Bld) [Volum e fraction]Ordered By: Lolita Adorno on 10-20-2024 Hematocrit (Bld) [Volume fraction] Hematocrit [Volume Fraction] of Blood by Automated count Low 38.8-50.0 [facility] Hemoglobin [Mass/volume] in BloodOrdered By: Lolita Adorno on 10-20-2024 Hemoglobin (Bld) [Mass/Vol] Hemoglobin [Mass/volume] in Blood Low 13.0-17.0 [facility] Leukocytes [#/volume] correc ruben for nucleated erythrocytes in Blood by Automated counOrdered By: Lolita Adorno on 10-20-2024 WBC corrected for nucl RBC Auto (Bld) [#/Vol] Leukocytes [#/volume] corrected for nucleated erythrocytes in Blood by Automated coun 4.1-10.5 [facility] Lymphocytes Auto (Bld) [#/Vo l]Ordered By: Lolita Adorno on 10-20-2024 Lymphocytes (Bld) [#/Vol] Lymphocytes [#/volume] in Blood by Automated count 1.00-4.8 [facility] Lymphocytes/100 WBC Auto (Bl d)Ordered By: Lolita Adorno on 10-20-2024 Lymphocytes/100 WBC (Bld) Lymphocytes/100 leukocytes in Blood by Automated count . [facility] MCH Auto (RBC) [Entitic mass ]Ordered By: Lolita Adorno on 10-20-2024 MCH (RBC) [Entitic mass] MCH [Entitic mass] by Automated count 27.5-35.2 [facility] MCHC Auto (RBC) [Mass/Vol]Or dered By: Lolita Adorno on 10-20-2024 MCHC (RBC) [Mass/Vol] MCHC [Mass/volume] by Automated count 32.5-35.6 [facility] MCV Auto (RBC) [Entitic vol] Ordered By: Lolita Adorno on 10-20-2024 MCV (RBC) [Entitic vol] MCV [Entitic vol ume] by Automated count Low 83.5-101 [facility] Monocytes Auto (Bld) [#/Vol] Ordered By: Lolita Adorno on 10-20-2024 Monocytes (Bld) [#/Vol] Automated blood monocyte count 0.0-0.8 [facility] Monocytes/100 WBC Auto (Bld) Ordered By: Lolita Adorno on 10-20-2024 Monocytes/100 WBC (Bld) Automated monocyte % . [facility] Neutrophils Auto (Bld) [#/Vo l]Ordered By: Lolita Adorno on 10-20-2024 Neutrophils (Bld) [#/Vol] Neutrophils [#/volume] in Blood by Automated count 1.8-7.7 [facility] Neutrophils/100 WBC Auto (Bl d)Ordered By: Lolita Adorno on 10-20-2024 Neutrophils/100 WBC (Bld) Automated neutrophil % . [facility] No Panel InformationOrdered By: Lolita Adorno on 10-20-2024 Estimated GFR (CKD-EPI) 22.474 mL/Min [facility] Creatinine Clearance (Chem N/A [facility] Nucleated erythrocytes [Pres ence] in Blood by Automated countOrdered By: Lolita Adorno on 10-20-2024 Nucleated RBC Auto Ql (Bld) Nucleated erythrocytes [Presence] in Blood by Automated count 0-0.5 [facility] PSA Screen (Yearly) w/Reflex on 10-20-2024 PSA Screen (Yearly) w/Reflex 1.900 ng/mL Normal 0.000-4.00 0 [facility] Comment on above: Order Comment: Reaso n for Exam Chronic kidney disease, stage III (moderate);Diabetes mellit Reason for Exam Chronic kidney disease, stage 3 unspecified;Anemia of renal Result Comment: Seri al tumor marker results determined by assays using different manufacturers or methods may not be comparable. [facility] excel specialist and method: byydEL DXI, CHEMILUMINESCENT IMMUNOASSAY. PERFORMED BY: [facility] [address] [place] [address] PATHOLOGIST INFECTION CONTROL SPECIALIST SONJA FALLON M.D. Performed By: #### P HOS, MG, [id number], URIC #### [facility] [address] Platelet mean volume Auto (B ld) [Entitic vol]Ordered By: Lolita Adorno on 10-20-2024 Platelet mean volume (Bld) [Entitic vol] Platelet mean volume [Entitic volume] in Blood by Automated count 6.6-10.1 [facility] Platelets Auto (Bld) [#/Vol] Ordered By: Lolita Adorno on 10-20-2024 Platelets (Bld) [#/Vol] Platelets [#/vol ume] in Blood by Automated count 150-450 [facility] Potassium [Moles/volume] in Serum or PlasmaOrdered By: Lolita Adorno on 10-20-2024 Potassium [Moles/Vol] Potassium [Moles/v olume] in Serum or Plasma Low 3.5-5.1 [facility] Prostate specific Ag [Mass/v olume] in Serum or PlasmaOrdered By: Lolita Adorno on 10-20-2024 Prostate specific Ag [Mass/Vol] Prostate specific Ag [Mass/volume] in Serum or Plasma 0.000-4.00 0 [facility] Comment on above: Serial tumor marker results determined by assays using different manufacturers or methods may not be comparable.[facility] excel specialist and method:byydEL DXI, CHEMILUMINESCENT IMMUNOASSAY. Protein [Mass/volume] in Ser um or PlasmaOrdered By: Lolita Adorno on 10-20-2024 Protein [Mass/Vol] Protein [Mass/volume ] in Serum or Plasma 6.4-8.9 [facility] RBC Auto (Bld) [#/Vol]Ordere d By: Lolita Adorno on 10-20-2024 RBC (Bld) [#/Vol] Erythrocytes [#/volu me] in Blood by Automated count 3.90-5.60 [facility] Serum or plasma albumin/glob ulin mass ratioOrdered By: Lolita Adorno on 10-20-2024 Albumin/Globulin [Mass ratio] Serum or plasma albumin/globulin mass ratio [facility] Serum or plasma anion gap de terminationOrdered By: Lolita Adorno on 10-20-2024 Anion gap [Moles/Vol] Serum or plasma an ion gap determination 6.0-15.0 [facility] Sodium [Moles/volume] in Ser um or PlasmaOrdered By: Lolita Adorno on 10-20-2024 Sodium [Moles/Vol] Sodium [Moles/volume ] in Serum or Plasma 136-145 [facility] Urea nitrogen [Mass/volume] in Serum or PlasmaOrdered By: Lolita Adorno on 10-20-2024 Urea nitrogen [Mass/Vol] Urea nitrogen [Mass/volume] in Serum or Plasma High 7-25 [facility] WBC Auto (Bld) [#/Vol]Ordere d By: Lolita Adorno on 10-20-2024 WBC (Bld) [#/Vol] Leukocytes [#/volume ] in Blood by Automated count 4.1-10.5 [facility] Alanine aminotransferase [En zymatic activity/volume] in Serum or PlasmaOrdered By: Lolita dAorno on 10-12-2024 ALT [Catalytic activity/Vol] Alanine aminotransferase [Enzymatic activity/volume] in Serum or Plasma 7-52 [facility] Albumin [Mass/volume] in Ser um or Plasma by Bromocresol green (BCG) dye binding methoOrdered By: Lolita Adorno on 10-12-2024 Albumin BCG dye [Mass/Vol] Albumin [Mass/volume] in Serum or Plasma by Bromocresol green (BCG) dye binding metho 3.5-5.7 [facility] Alkaline phosphatase [Enzyma tic activity/volume] in Serum or PlasmaOrdered By: Lolita Adorno on 10-12-2024 ALP [Catalytic activity/Vol] Alkaline phosphatase [Enzymatic activity/volume] in Serum or Plasma 34-104 [facility] Appearance of UrineOrdered B y: Nette Holden on 10-12-2024 Appearance (U) Urine appearance Clear [facility] Aspartate aminotransferase [ Enzymatic activity/volume] in Serum or PlasmaOrdered By: Lolita Adorno on 10-12-2024 AST [Catalytic activity/Vol] Aspartate aminotransferase [Enzymatic activity/volume] in Serum or Plasma 13-39 [facility] Bacteria [Presence] in Urine by AutomatedOrdered By: Nette Holden on 10-12-2024 Bacteria Auto Ql (U) Bacteria [Presence] in Urine by Automated None Seen [facility] Beta HCG (MALE Tumor Marker) on 10-12-2024 Beta HCG (MALE Tumor Marker) <1 Normal 0-3 [facility] Comment on above: Result Comment: Elie travis ECLIA methodology PERFORMED BY: [facility] [address] [place] [address] PATHOLOGIST INFECTION CONTROL SPECIALIST SONJA FALLON M.D. Performed By: #### P HOS, MG, [id number], URIC #### [facility] [address] Beta-human chorionic gonadot ropin (BhCG) detectionOrdered By: Lolita Adorno on 10-12-2024 HCG.beta subunit Ql (Unsp spec) Beta-human chorionic gonadotropin (BhCG) detection 0-3 [facility] Comment on above: Marianne ECLIA methodol ogy Bilirubin Test strip Ql (U)O rdered By: Nette Holden on 10-12-2024 Bilirubin Ql (U) Bilirubin.total [Presence] in Urine by Test strip Negative [facility] Bilirubin.total [Mass/volume ] in Serum or PlasmaOrdered By: Lolita Adorno on 10-12-2024 Bilirubin [Mass/Vol] Bilirubin.total [Mass/volume] in Serum or Plasma 0.3-1.0 [facility] Calcium [Mass/volume] in Ser um or PlasmaOrdered By: Lolita Adorno on 10-12-2024 Calcium [Mass/Vol] Calcium [Mass/volume ] in Serum or Plasma 8.6-10.3 [facility] Carbon dioxide, total [Moles /volume] in Serum or PlasmaOrdered By: Lolita Adorno on 10-12-2024 CO2 [Moles/Vol] Carbon dioxide, tota l [Moles/volume] in Serum or Plasma 21.0-31.0 [facility] Chloride [Moles/volume] in S antolin or PlasmaOrdered By: Lolita Adorno on 10-12-2024 Chloride [Moles/Vol] Chloride [Moles/vol ume] in Serum or Plasma 98-107 [facility] Color Auto (U)Ordered By: Ab emanuel Holden on 10-12-2024 Color (U) Color of Urine by Auto Yellow [facility] Comprehensive Metabolic Pane jered 10-12-2024 Albumin [Mass/Vol] 4.2 g/dL Normal 3.5-5.7 [facility] Comment on above: Order Comment: Reaso n for Exam Chronic kidney disease, stage III (moderate);Diabetes mellit Reason for Exam Chronic kidney disease, stage 3 unspecified;Anemia of renal Performed By: #### P HOS, MG, [id number], URIC #### [facility] [address] Albumin/Globulin [Mass ratio] 1.8 {ratio} Normal [facility] Comment on above: Order Comment: Reaso n for Exam Chronic kidney disease, stage III (moderate);Diabetes mellit Reason for Exam Chronic kidney disease, stage 3 unspecified;Anemia of renal Performed By: #### P HOS, MG, [id number], URIC #### [facility] [address] ALP [Catalytic activity/Vol] 84 U/L Normal 34-104 [facility] Comment on above: Order Comment: Reaso n for Exam Chronic kidney disease, stage III (moderate);Diabetes mellit Reason for Exam Chronic kidney disease, stage 3 unspecified;Anemia of renal Result Comment: PERF ORMED BY: [place] [address] PATHOLOGIST INFECTION CONTROL SPECIALIST SONJA FALLON M.D. Performed By: #### P HOS, MG, [id number], URIC #### [facility] [address] [place] [id number] [facility] ALT [Catalytic activity/Vol] 11 U/L Normal 7-52 [facility] Comment on above: Order Comment: Reaso n for Exam Chronic kidney disease, stage III (moderate);Diabetes mellit Reason for Exam Chronic kidney disease, stage 3 unspecified;Anemia of renal Performed By: #### P HOS, MG, [id number], URIC #### [facility] [address] [place], [place] [id number] [facility] Anion gap [Moles/Vol] 12.9 mmol/L Normal 6.0-15.0 [facility] Comment on above: Order Comment: Reaso n for Exam Chronic kidney disease, stage III (moderate);Diabetes mellit Reason for Exam Chronic kidney disease, stage 3 unspecified;Anemia of renal Performed By: #### P HOS, MG, [id number], URIC #### [place] [id number] [facility] AST [Catalytic activity/Vol] 16 U/L Normal 13-39 [facility] Comment on above: Order Comment: Reaso n for Exam Chronic kidney disease, stage III (moderate);Diabetes mellit Reason for Exam Chronic kidney disease, stage 3 unspecified;Anemia of renal Performed By: #### P HOS, MG, [id number], URIC #### [place] [id number] [facility] Bilirubin [Mass/Vol] 0.6 mg/dL Normal 0.3-1.0 [facility] Comment on above: Order Comment: Reaso n for Exam Chronic kidney disease, stage III (moderate);Diabetes mellit Reason for Exam Chronic kidney disease, stage 3 unspecified;Anemia of renal Performed By: #### P HOS, MG, [id number], URIC #### [facility] [address] [place], [place] [id number] [place] Calcium [Mass/Vol] 9.1 mg/dL Normal 8.6-10.3 [facility] Comment on above: Order Comment: Reaso n for Exam Chronic kidney disease, stage III (moderate);Diabetes mellit Reason for Exam Chronic kidney disease, stage 3 unspecified;Anemia of renal Performed By: #### P HOS, MG, [id number], URIC #### [facility] [address] Chloride [Moles/Vol] 100 mmol/L Normal 98-107 [facility] Comment on above: Order Comment: Reaso n for Exam Chronic kidney disease, stage III (moderate);Diabetes mellit Reason for Exam Chronic kidney disease, stage 3 unspecified;Anemia of renal Performed By: #### P HOS, MG, [id number], URIC #### [place] [id number] [facility] CO2 [Moles/Vol] 25.9 mmol/L Normal 21.0-31.0 [facility] Comment on above: Order Comment: Reaso n for Exam Chronic kidney disease, stage III (moderate);Diabetes mellit Reason for Exam Chronic kidney disease, stage 3 unspecified;Anemia of renal Performed By: #### P HOS, MG, [id number], URIC #### [address] Creatinine [Mass/Vol] 3.45 mg/dL High 0.70-1.30 [facility] Comment on above: Order Comment: Reaso n for Exam Chronic kidney disease, stage III (moderate);Diabetes mellit Reason for Exam Chronic kidney disease, stage 3 unspecified;Anemia of renal Performed By: #### P HOS, MG, [id number], URIC #### [address] Estimated GFR 17.870 mL/Min Normal [facility] Comment on above: Order Comment: Reaso n for Exam Chronic kidney disease, stage III (moderate);Diabetes mellit Reason for Exam Chronic kidney disease, stage 3 unspecified;Anemia of renal Performed By: #### P HOS, MG, [id number], URIC #### [facility] [address] [place] [id number] [facility] Globulin (S) [Mass/Vol] 2.4 g/dL Normal T he [facility] Comment on above: Order Comment: Reaso n for Exam Chronic kidney disease, stage III (moderate);Diabetes mellit Reason for Exam Chronic kidney disease, stage 3 unspecified;Anemia of renal Performed By: #### P HOS, MG, [id number], URIC #### [facility] [address] [place] [id number] [facility] Glucose [Mass/Vol] 183 mg/dL High 70-100 [facility] Comment on above: Order Comment: Reaso n for Exam Chronic kidney disease, stage III (moderate);Diabetes mellit Reason for Exam Chronic kidney disease, stage 3 unspecified;Anemia of renal Result Comment: [facility] Glucose Reference Range is dependent on time and content of last meal. Glucose of more than 200 mg/dL in a nonstressed, ambulatory subject supports the diagnosis of Diabetes Mellitus. ADA recommended reference range Performed By: #### P HOS, MG, [id number], URIC #### [facility] [address] Potassium [Moles/Vol] 3.8 mmol/L Normal 3.5-5.1 [facility] Comment on above: Order Comment: Reaso n for Exam Chronic kidney disease, stage III (moderate);Diabetes mellit Reason for Exam Chronic kidney disease, stage 3 unspecified;Anemia of renal Performed By: #### P HOS, MG, [id number], URIC #### [facility] [address] [place] [id number] [facility] Protein [Mass/Vol] 6.6 g/dL Normal 6.4-8.9 [facility] Comment on above: Order Comment: Reaso n for Exam Chronic kidney disease, stage III (moderate);Diabetes mellit Reason for Exam Chronic kidney disease, stage 3 unspecified;Anemia of renal Performed By: #### P HOS, MG, [id number], URIC #### [facility] [address] [place] [id number] [place] Sodium [Moles/Vol] 135 mmol/L Low 136-145 [facility] Comment on above: Order Comment: Reaso n for Exam Chronic kidney disease, stage III (moderate);Diabetes mellit Reason for Exam Chronic kidney disease, stage 3 unspecified;Anemia of renal Performed By: #### P HOS, MG, [id number], URIC #### [facility] [address] [place] [id number] [place] Urea nitrogen [Mass/Vol] 69 mg/dL High 7-25 [facility] Comment on above: Order Comment: Reaso n for Exam Chronic kidney disease, stage III (moderate);Diabetes mellit Reason for Exam Chronic kidney disease, stage 3 unspecified;Anemia of renal Performed By: #### P HOS, MG, [id number], URIC #### [facility] [address] [place] [address] [place] Creatinine [Mass/volume] in Serum or PlasmaOrdered By: Lolita Adorno on 10-12-2024 Creatinine [Mass/Vol] Creatinine [Mass/v olume] in Serum or Plasma High 0.70-1.30 [facility] Creatinine [Mass/volume] in UrineOrdered By: Nette Holden on 10-12-2024 Creatinine (U) [Mass/Vol] Creatinine [Mass/volume] in Urine [facility] Comment on above: No reference range e stablished Dipstick and Microscopicon 0 10-12-2024 Appearance (U) Clear Normal Clear [facility] Comment on above: Order Comment: Reaso n for Exam Chronic kidney disease, stage III (moderate);Diabetes mellit Name Collection Type:: Clean-Voided Midstream Performed By: #### C BC, MG, CMP, PHOS #### [facility] [address] [place] [address] [place] Bacteria,Urine None Seen Normal None Seen [facility] Comment on above: Order Comment: Reaso n for Exam Chronic kidney disease, stage III (moderate);Diabetes mellit Name Collection Type:: Clean-Voided Midstream Performed By: #### C BC, MG, CMP, PHOS #### [facility] [address] [place] [address] [place] Bilirubin,Urine Negative Normal Negative [facility] Comment on above: Order Comment: Reaso n for Exam Chronic kidney disease, stage III (moderate);Diabetes mellit Name Collection Type:: Clean-Voided Midstream Performed By: #### C BC, MG, CMP, PHOS #### [facility] [address] [place] [address] [place] Color (U) Light-Yellow Normal Yellow [facility] Comment on above: Order Comment: Reaso n for Exam Chronic kidney disease, stage III (moderate);Diabetes mellit Name Collection Type:: Clean-Voided Midstream Performed By: #### C BC, MG, CMP, PHOS #### [address] Glucose Ql (U) Normal Normal Normal [facility] Comment on above: Order Comment: Reaso n for Exam Chronic kidney disease, stage III (moderate);Diabetes mellit Name Collection Type:: Clean-Voided Midstream Performed By: #### C BC, MG, CMP, PHOS #### [address] Hyaline Casts,Urine 0 [LPF] Normal 0-8 [facility] Comment on above: Order Comment: Reaso n for Exam Chronic kidney disease, stage III (moderate);Diabetes mellit Name Collection Type:: Clean-Voided Midstream Result Comment: PERF ORMED BY: [place] [address] PATHOLOGIST INFECTION CONTROL SPECIALIST SONJA FALLON M.D. Performed By: #### C BC, MG, CMP, PHOS #### [address] Ketones Ql (U) Negative Normal Negative [facility] Comment on above: Order Comment: Reaso n for Exam Chronic kidney disease, stage III (moderate);Diabetes mellit Name Collection Type:: Clean-Voided Midstream Performed By: #### C BC, MG, CMP, PHOS #### [address] Leukocyte esterase Test strip Ql (U) Negative Normal Negative [facility] Comment on above: Order Comment: Reaso n for Exam Chronic kidney disease, stage III (moderate);Diabetes mellit Name Collection Type:: Clean-Voided Midstream Performed By: #### C BC, MG, CMP, PHOS #### [address] Nitrite,Urine Negative Normal Negative [facility] Comment on above: Order Comment: Reaso n for Exam Chronic kidney disease, stage III (moderate);Diabetes mellit Name Collection Type:: Clean-Voided Midstream Performed By: #### C BC, MG, CMP, PHOS #### [address] Occult Blood,Urine Negative Normal Negative [facility] Comment on above: Order Comment: Reaso n for Exam Chronic kidney disease, stage III (moderate);Diabetes mellit Name Collection Type:: Clean-Voided Midstream Performed By: #### C BC, MG, CMP, PHOS #### [address] pH (U) 5.0 [pH] Normal 5.0-9.0 [facility] Comment on above: Order Comment: Reaso n for Exam Chronic kidney disease, stage III (moderate);Diabetes mellit Name Collection Type:: Clean-Voided Midstream Performed By: #### C BC, MG, CMP, PHOS #### [address] Protein (U) [Mass/Vol] 20 mg/dL High Negative Th e [facility] Comment on above: Order Comment: Reaso n for Exam Chronic kidney disease, stage III (moderate);Diabetes mellit Name Collection Type:: Clean-Voided Midstream Performed By: #### C BC, MG, CMP, PHOS #### [address] RBC,Urine 1 [HPF] Normal 0-4 [facility] Comment on above: Order Comment: Reaso n for Exam Chronic kidney disease, stage III (moderate);Diabetes mellit Name Collection Type:: Clean-Voided Midstream Performed By: #### C BC, MG, CMP, PHOS #### [address] Specificy [place],Urine 1.012 Normal 1.00 1-1.03 0 [facility] Comment on above: Order Comment: Reaso n for Exam Chronic kidney disease, stage III (moderate);Diabetes mellit Name Collection Type:: Clean-Voided Midstream Performed By: #### C BC, MG, CMP, PHOS #### [facility] [address] Squamous Epithelial Cell,Urine 3 [HPF] High 0-2 [facility] Comment on above: Order Comment: Reaso n for Exam Chronic kidney disease, stage III (moderate);Diabetes mellit Name Collection Type:: Clean-Voided Midstream Performed By: #### C BC, MG, CMP, PHOS #### [facility] [address] Urobilinogen,Urine Normal Normal Normal [facility] Comment on above: Order Comment: Reaso n for Exam Chronic kidney disease, stage III (moderate);Diabetes mellit Name Collection Type:: Clean-Voided Midstream Performed By: #### C BC, MG, CMP, PHOS #### [facility] [address] WBC,Urine 1 [HPF] Normal 0-4 [facility] Comment on above: Order Comment: Reaso n for Exam Chronic kidney disease, stage III (moderate);Diabetes mellit Name Collection Type:: Clean-Voided Midstream Performed By: #### C BC, MG, CMP, PHOS #### [facility] [address] Epithelial cells.squamous [# /area] in Urine sediment by Automated countOrdered By: Nette Holden on 10-12-2024 Epithelial cells.squamous Auto (Urine sed) [#/Area] Epithelial cells.squamous [#/area] in Urine sediment by Automated count High 0-2 [facility] Erythrocyte distribution wid th Auto (RBC) [Ratio]Ordered By: Nette Adina on 10-12-2024 Erythrocyte distribution width (RBC) [Ratio] Erythrocyte distribution width [Ratio] by Automated count 12.0-14.8 [facility] Erythrocytes [#/area] in Uri ne sediment by Automated countOrdered By: Nette Coulterdir on 10-12-2024 RBC Auto (Urine sed) [#/Area] Erythrocytes [#/area] in Urine sediment by Automated count 0-4 [facility] Estradiolon 10-12-2024 Estradiol 29.4 pg/mL Normal 7.6-42.6 [facility] Comment on above: Result Comment: Elie MATUTEIA methodology Performed at: - [facility] [address] [id number] [employer] Feeder: Chidi Hernandes PhD, Phone: [phone] Performed By: #### P HOS, MG, [id number], URIC #### [facility] [address] [place] [address] [facility] FE PROon 10-12-2024 % Iron Saturation 20.5 % Normal 20-50 [facility] Comment on above: Performed By: #### P HOS, MG, [id number], URIC #### [facility] [address] Ferritin [Mass/Vol] 77.1 ng/mL Normal 23.9-336.2 [facility] Comment on above: Result Comment: PERF ORMED BY: [place] [address] PATHOLOGIST INFECTION CONTROL SPECIALIST SONJA FALLON M.D. Performed By: #### P HOS, MG, [id number], URIC #### [place] [id number] [facility] Iron [Mass/Vol] 59 ug/dL Normal 50-212 [facility] Comment on above: Performed By: #### P HOS, MG, [id number], URIC #### [place] [id number] [facility] Total Iron Binding Capacity 288 ug/dL Normal 255-450 [facility] Comment on above: Performed By: #### P HOS, MG, [id number], URIC #### [facility] [address] [place] [id number] [place] Transferrin [Mass/Vol] 206 mg/dL Normal 203-[address] [facility] Comment on above: Performed By: #### P HOS, MG, [id number], URIC #### [place] [id number] [place] Ferritin [Mass/volume] in Se rum or PlasmaOrdered By: Lolita Adorno on 10-12-2024 Ferritin [Mass/Vol] Ferritin [Mass/volum e] in Serum or Plasma 23.9-336.2 [facility] Globulin Calc (S) [Mass/Vol] Ordered By: Lolita Adorno on 10-12-2024 Globulin (S) [Mass/Vol] Serum globulin measurement by calculation (mass/volume) [facility] Glucose [Mass/volume] in Ser um or PlasmaOrdered By: Lolita Adorno on 10-12-2024 Glucose [Mass/Vol] Glucose [Mass/volume ] in Serum or Plasma High 70-100 [facility] Comment on above: ADA recommended refe rence rangeRandom Glucose Reference Range is dependent on time and content of last meal. Glucose of more than 200 mg/dL in a nonstressed, ambulatory subject supports the diagnosis of Diabetes Mellitus. Glucose [Mass/volume] in Uri ne by Test stripOrdered By: Nette Holden on 10-12-2024 Glucose Test strip (U) [Mass/Vol] Glucose [Mass/volume] in Urine by Test strip Normal [facility] Hematocrit Auto (Bld) [Volum e fraction]Ordered By: Nette Holden on 10-12-2024 Hematocrit (Bld) [Volume fraction] Hematocrit [Volume Fraction] of Blood by Automated count Low 38.8-50.0 [facility] Hemoglobin Test strip Ql (U) Ordered By: Nette Holden on 10-12-2024 Hemoglobin Ql (U) Hemoglobin [Presence ] in Urine by Test strip Negative [facility] Hemoglobin [Mass/volume] in BloodOrdered By: Nette Holden on 10-12-2024 Hemoglobin (Bld) [Mass/Vol] Hemoglobin [Mass/volume] in Blood Low 13.0-17.0 [facility] Hemogram CBC Without Diffon 10-12-2024 Erythrocyte distribution width (RBC) [Ratio] 13.4 % Normal 12.0-14.8 [facility] Comment on above: Order Comment: Reaso n for Exam Chronic kidney disease, stage III (moderate);Diabetes mellit Reason for Exam Chronic kidney disease, stage 3 unspecified;Anemia of renal Performed By: #### P HOS, MG, [id number], URIC #### [address] Hematocrit (Bld) [Volume fraction] 35.5 % Low 38.8-50.0 [facility] Comment on above: Order Comment: Reaso n for Exam Chronic kidney disease, stage III (moderate);Diabetes mellit Reason for Exam Chronic kidney disease, stage 3 unspecified;Anemia of renal Performed By: #### P HOS, MG, [id number], URIC #### [address] Hemoglobin (Bld) [Mass/Vol] 11.6 g/dL Low 13.0-17.0 [facility] Comment on above: Order Comment: Reaso n for Exam Chronic kidney disease, stage III (moderate);Diabetes mellit Reason for Exam Chronic kidney disease, stage 3 unspecified;Anemia of renal Performed By: #### P HOS, MG, [id number], URIC #### [address] MCH (RBC) [Entitic mass] 27.3 pg Low 27.5-35.2 [facility] Comment on above: Order Comment: Reaso n for Exam Chronic kidney disease, stage III (moderate);Diabetes mellit Reason for Exam Chronic kidney disease, stage 3 unspecified;Anemia of renal Performed By: #### P HOS, MG, [id number], URIC #### [address] MCV (RBC) [Entitic vol] 83.5 fL Normal 83.5-101 T [facility] Comment on above: Order Comment: Reaso n for Exam Chronic kidney disease, stage III (moderate);Diabetes mellit Reason for Exam Chronic kidney disease, stage 3 unspecified;Anemia of renal Performed By: #### P HOS, MG, [id number], URIC #### [address] Mean Corpuscular HGB Conc 32.7 g/dL Normal 32.5-35.6 [facility] Comment on above: Order Comment: Reaso n for Exam Chronic kidney disease, stage III (moderate);Diabetes mellit Reason for Exam Chronic kidney disease, stage 3 unspecified;Anemia of renal Performed By: #### P HOS, MG, [id number], URIC #### [facility] [address] Platelet mean volume (Bld) [Entitic vol] 9.4 fL Normal 6.6-10.1 [facility] Comment on above: Order Comment: Reaso n for Exam Chronic kidney disease, stage III (moderate);Diabetes mellit Reason for Exam Chronic kidney disease, stage 3 unspecified;Anemia of renal Result Comment: PERF ORMED BY: [place] [address] PATHOLOGIST INFECTION CONTROL SPECIALIST SONJA FALLON M.D. Performed By: #### P HOS, MG, [id number], URIC #### [facility] [address] Platelets (Bld) [#/Vol] 187 10*3/uL Normal 150-450 [facility] Comment on above: Order Comment: Reaso n for Exam Chronic kidney disease, stage III (moderate);Diabetes mellit Reason for Exam Chronic kidney disease, stage 3 unspecified;Anemia of renal Performed By: #### P HOS, MG, [id number], URIC #### [facility] [address] [place] [address] [place] RBC (Bld) [#/Vol] 4.26 10*6/uL Normal 3.90-5.60 [facility] Comment on above: Order Comment: Reaso n for Exam Chronic kidney disease, stage III (moderate);Diabetes mellit Reason for Exam Chronic kidney disease, stage 3 unspecified;Anemia of renal Performed By: #### P HOS, MG, [id number], URIC #### [facility] [address] [place] [id number] [place] WBC (Bld) [#/Vol] 8.5 10*3/uL Normal 4.1-10.5 [facility] Comment on above: Order Comment: Reaso n for Exam Chronic kidney disease, stage III (moderate);Diabetes mellit Reason for Exam Chronic kidney disease, stage 3 unspecified;Anemia of renal Performed By: #### P HOS, MG, [id number], URIC #### [facility] [address] Hyaline casts [#/area] in Ur ine sediment by Automated countOrdered By: Nette Holden on 10-12-2024 Hyaline casts Auto (Urine sed) [#/Area] Hyaline casts [#/area] in Urine sediment by Automated count 0-8 [facility] Iron [Mass/volume] in Serum or PlasmaOrdered By: Lolita Adorno on 10-12-2024 Iron [Mass/Vol] Iron [Mass/volume] i n Serum or Plasma 50-212 [facility] Ketones Test strip Ql (U)Ord ered By: Nette Holden on 10-12-2024 Ketones Ql (U) Ketones [Presence] i n Urine by Test strip Negative [facility] Leukocyte esterase [Presence ] in Urine by Test stripOrdered By: Nette Holden on 10-12-2024 Leukocyte esterase Test strip Ql (U) Leukocyte esterase [Presence] in Urine by Test strip Negative [facility] Leukocytes [#/area] in Urine sediment by Automated countOrdered By: Nette Holden on 10-12-2024 WBC Auto (Urine sed) [#/Area] Leukocytes [#/area] in Urine sediment by Automated count 0-4 [facility] Leukocytes [#/volume] correc ruben for nucleated erythrocytes in Blood by Automated counOrdered By: Nette Holden on 10-12-2024 WBC corrected for nucl RBC Auto (Bld) [#/Vol] Leukocytes [#/volume] corrected for nucleated erythrocytes in Blood by Automated coun 4.1-10.5 [facility] Luteinizing Hormoneon 2024 Luteinizing Hormone 36.4 m[iU]/mL High 1.7-8.6 Th e [facility] Comment on above: Performed By: #### P HOS, MG, [id number], URIC #### [facility] [address] MCH Auto (RBC) [Entitic mass ]Ordered By: Nette Holden on 10-12-2024 MCH (RBC) [Entitic mass] MCH [Entitic mass] by Automated count Low 27.5-35.2 [facility] MCHC Auto (RBC) [Mass/Vol]Or dered By: Nette Holden on 10-12-2024 MCHC (RBC) [Mass/Vol] MCHC [Mass/volume] by Automated count 32.5-35.6 [facility] MCV Auto (RBC) [Entitic vol] Ordered By: Nette Holden on 10-12-2024 MCV (RBC) [Entitic vol] MCV [Entitic vol ume] by Automated count 83.5-101 [facility] Magnesiumon 10-12-2024 Magnesium [Mass/Vol] 2.2 mg/dL Normal 1.9-2.7 [facility] Comment on above: Order Comment: Reaso n for Exam Chronic kidney disease, stage III (moderate);Diabetes mellit Reason for Exam Chronic kidney disease, stage 3 unspecified;Anemia of renal Performed By: #### P HOS, MG, [id number], URIC #### [address] Magnesium [Mass/volume] in S antolin or PlasmaOrdered By: Nette Holden on 10-12-2024 Magnesium [Mass/Vol] Magnesium [Mass/vol ume] in Serum or Plasma 1.9-2.7 [facility] Nitrite Test strip Ql (U)Ord ered By: Nette Holden on 10-12-2024 Nitrite Ql (U) Nitrite [Presence] i n Urine by Test strip Negative [facility] No Panel InformationOrdered By: Lolita Adorno on 10-12-2024 Estimated GFR (CKD-EPI) 17.870 mL/Min [facility] Creatinine Clearance (Chem N/A [facility] Parathyrin.intact [Mass/volu me] in Serum or PlasmaOrdered By: Nette Holden on 10-12-2024 Parathyrin.intact [Mass/Vol] Parathyrin.intact [Mass/volume] in Serum or Plasma High 12-88 [facility] Parathyroid Hormone Intacton 10-12-2024 Parathyroid Hormone Intact 167.3 pg/mL High 12 [facility] Comment on above: Order Comment: Reaso n for Exam Chronic kidney disease, stage III (moderate);Diabetes mellit Reason for Exam Chronic kidney disease, stage 3 unspecified;Anemia of renal Result Comment: PERF ORMED BY: [place] [address] PATHOLOGIST INFECTION CONTROL SPECIALIST SONJA FALLON M.D. Performed By: #### P HOS, MG, [id number], URIC #### [facility] [address] [place] [id number] [facility] Phosphate [Mass/volume] in S antolin or PlasmaOrdered By: Nette Holden on 10-12-2024 Phosphate [Mass/Vol] Phosphate [Mass/vol ume] in Serum or Plasma High 2.5-4.5 [facility] Phosphoruson 10-12-2024 Phosphate [Mass/Vol] 4.9 mg/dL High 2.5-4.5 [facility] Comment on above: Order Comment: Reaso n for Exam Chronic kidney disease, stage III (moderate);Diabetes mellit Reason for Exam Chronic kidney disease, stage 3 unspecified;Anemia of renal Performed By: #### P HOS, MG, [id number], URIC #### [facility] [address] [place] [id number] [facility] Platelet mean volume Auto (B ld) [Entitic vol]Ordered By: Nette Holden on 10-12-2024 Platelet mean volume (Bld) [Entitic vol] Platelet mean volume [Entitic volume] in Blood by Automated count 6.6-10.1 [facility] Platelets Auto (Bld) [#/Vol] Ordered By: Nette Holden on 10-12-2024 Platelets (Bld) [#/Vol] Platelets [#/vol ume] in Blood by Automated count 150-450 [facility] Potassium [Moles/volume] in Serum or PlasmaOrdered By: Lolita Adorno on 10-12-2024 Potassium [Moles/Vol] Potassium [Moles/v olume] in Serum or Plasma 3.5-5.1 [facility] Protein Creat Ratio Ur Rando mon 10-12-2024 Creatinine, Urine (Random) 99.00 mg/dL Normal [facility] Comment on above: Order Comment: Reaso n for Exam Chronic kidney disease, stage III (moderate);Diabetes mellit Result Comment: No r eference range established Performed By: #### P ROCRERAT #### [facility] [address] Protein (U) [Mass/Vol] 33 mg/dL High 0-9 [facility] e [facility] Comment on above: Order Comment: Reaso n for Exam Chronic kidney disease, stage III (moderate);Diabetes mellit Performed By: #### P ROCRERAT #### [address] Urine Protein/Creatinine Ratio 333 mg/g{Cre} High 0-200 [facility] Comment on above: Order Comment: Reaso n for Exam Chronic kidney disease, stage III (moderate);Diabetes mellit Result Comment: PERF ORMED BY: [place] [address] PATHOLOGIST INFECTION CONTROL SPECIALIST SONJA FALLON M.D. Performed By: #### P ROCRERAT #### [address] Protein Test strip (U) [Mass /Vol]Ordered By: Nette Holden on 10-12-2024 Protein (U) [Mass/Vol] Protein [Mass/vol ume] in Urine by Test strip High Negative [facility] Protein [Mass/volume] in Ser um or PlasmaOrdered By: Lolita Adorno on 10-12-2024 Protein [Mass/Vol] Protein [Mass/volume ] in Serum or Plasma 6.4-8.9 [facility] Protein [Mass/volume] in Uri neOrdered By: Nette Holden on 10-12-2024 Protein (U) [Mass/Vol] Protein [Mass/vol ume] in Urine High 0-9 [facility] RBC Auto (Bld) [#/Vol]Ordere d By: Nette Holden on 10-12-2024 RBC (Bld) [#/Vol] Erythrocytes [#/volu me] in Blood by Automated count 3.90-5.60 [facility] Serum or plasma albumin/glob ulin mass ratioOrdered By: Lolita Adorno on 10-12-2024 Albumin/Globulin [Mass ratio] Serum or plasma albumin/globulin mass ratio [facility] Serum or plasma anion gap de terminationOrdered By: Lolita Adorno on 10-12-2024 Anion gap [Moles/Vol] Serum or plasma an ion gap determination 6.0-15.0 [facility] Serum or plasma estradiol (E 2) measurement (mass/volume)Ordered By: Lolita Adorno on 10-12-2024 E2 [Mass/Vol] Serum or plasma estradiol (E2) measurement (mass/volume) 7.6-42.6 [facility] Comment on above: Marianne ECLIA methodol ogyPerformed at: [facility] [address] [id number] Director: Chidi Hernandes PhD, Phone: [phone] Serum or plasma free testost erone measurement (mass/volume)Ordered By: Lolita Adorno on 10-12-2024 Testosterone Free [Mass/Vol] Free testosterone measurement by LC-MS/MS Low 6.6-18.1 [facility] Comment on above: Performed at: [facility] [address] [id number] Director: Chidi Hernandes PhD, Phone: [phone] at: [employer] [address] [id number] Director: Fawn Hogan MD, Phone: [phone] Serum or plasma iron binding capacity measurement (mass/volume)Ordered By: Lolita Adorno on 10-12-2024 Iron binding capacity [Mass/Vol] Iron binding capacity [Mass/volume] in Serum or Plasma 255-450 [facility] Serum or plasma iron saturat ion measurement (mass fraction)Ordered By: Lolita Adorno on 10-12-2024 Iron saturation [Mass fraction] Iron saturation [Mass Fraction] in Serum or Plasma 20-50 [facility] Serum or plasma lutropin tammy surement (units/volume)Ordered By: Lolita Adorno on 10-12-2024 Lutropin Qn Serum or plasma lutr opin measurement (units/volume) High 1.7-8.6 [facility] Sodium [Moles/volume] in Ser um or PlasmaOrdered By: Lolita Adorno on 10-12-2024 Sodium [Moles/Vol] Sodium [Moles/volume ] in Serum or Plasma Low 136-145 [facility] Specific gravity Test strip (U) [Rel density]Ordered By: Nette Holden on 10-12-2024 Specific gravity (U) [Rel density] Specific gravity of Urine by Test strip 1.001-1.03 0 [facility] Testosterone Free and TotalO rdered By: Lolita Adorno on 10-12-2024 Testosterone [Mass/Vol] 370 ng/dL Normal 264-916 [facility] Comment on above: Adult male reference interval is based on a population ofhealthy nonobese males (BMI <30) between 19 and 39 yearsold. Locoison, et.al. JCEM 2017,102;6303-5822. PMID:[id number]. Result Comment: Adul t male reference interval is based on a population of healthy nonobese males (BMI <30) between 19 and 39 years old. Travison, et.al. JCEM 2017,102;3669-3891. PMID: [id number]. Performed By: #### P HOS, MG, [id number], URIC #### [facility] [address] [place] [address] [place] Testosterone Free and Totalo n 10-12-2024 Testosterone,Free 3.7 pg/mL Low 6.6-18.1 [facility] Comment on above: Result Comment: Perf ormed at: - [facility] [address] [id number] [employer]: Chidi Hernandes PhD, Phone: [phone] Performed at: - [facility] [address] [id number] [employer]: Fawn Hogan MD, Phone: [phone] Performed By: #### P HOS, MG, [id number], URIC #### [facility] [address] [place] [id number] [facility] Thyroid Stim Hormone w/Rflxo n 10-12-2024 Thyroid Stim Hormone w/Rflx 1.31 u[iU]/mL Normal 0.45-5.33 [facility] Comment on above: Result Comment: PERF ORMED BY: [place] [address] PATHOLOGIST INFECTION CONTROL SPECIALIST SONJA FALLON M.D. Performed By: #### P HOS, MG, [id number], URIC #### [facility] [address] [place] [id number] [facility] Thyrotropin [Units/volume] i n Serum or PlasmaOrdered By: Lolita Adorno on 10-12-2024 TSH Qn Thyrotropin [Units/volume] in Serum or Plasma 0.45-5.33 [facility] Transferrin [Mass/volume] in Serum or PlasmaOrdered By: Lolita Adorno on 10-12-2024 Transferrin [Mass/Vol] Transferrin [Mass/volume] in Serum or Plasma 203-362 [facility] Urate [Mass/volume] in Serum or PlasmaOrdered By: Nette Holden on 10-12-2024 Urate [Mass/Vol] Urate [Mass/volume] in Serum or Plasma High 4.4-7.6 [facility] Urea nitrogen [Mass/volume] in Serum or PlasmaOrdered By: Lolita Adorno on 10-12-2024 Urea nitrogen [Mass/Vol] Urea nitrogen [Mass/volume] in Serum or Plasma High 7-25 [facility] Uric Acidon 10-12-2024 Urate [Mass/Vol] 8.4 mg/dL High 4.4-7.6 [facility] Comment on above: Order Comment: Reaso n for Exam Chronic kidney disease, stage III (moderate);Diabetes mellit Reason for Exam Chronic kidney disease, stage 3 unspecified;Anemia of renal Performed By: #### P HOS, MG, [id number], URIC #### [facility] [address] [place] [id number] [facility] Urine protein/creatinine rat ioOrdered By: Nette Holden on 10-12-2024 Protein/Creatinine (U) [Ratio] Urine protein/creatinine ratio High 0-200 [facility] Urobilinogen Test strip (U) [Mass/Vol]Ordered By: Nette Holden on 10-12-2024 Urobilinogen (U) [Mass/Vol] Urobilinogen [Mass/volume] in Urine by Test strip Normal [facility] Vitamin D 25 Hydroxy Totalon 10-12-2024 Vitamin D 25 Hydroxy Total 45.4 ng/mL Normal 30-100 [facility] Comment on above: Order Comment: Reaso n for Exam Chronic kidney disease, stage III (moderate);Diabetes mellit Reason for Exam Chronic kidney disease, stage 3 unspecified;Anemia of renal Result Comment: TOÑITO MIN D STATUS 25(OH)VITAMIN D RANGE (ng/mL) Deficient <20 Insufficient 20 to <30 Sufficient 30 to 100 Reference: Jazmyn Ramos, Darrion MARKS, et al. Evaluation,treatment, and prevention of vitamin D deficiency; an Endocrine Society clinical practice guideline. JCEM. 2010; 96(7):1911-30. PERFORMED BY: [place] [address] PATHOLOGIST INFECTION CONTROL SPECIALIST SONJA FALLON M.D. Performed By: #### P HOS, MG, [id number], URIC #### [address] Vitamin D+Metabolites [Mass/ volume] in Serum or PlasmaOrdered By: Nette Holden on 10-12-2024 Vitamin D+Metabolites [Mass/Vol] Vitamin D+Metabolites [Mass/volume] in Serum or Plasma 30-100 [facility] Comment on above: VITAMIN D STATUS 25( OH)VITAMIN D RANGE (ng/mL) Deficient <20 Insufficient 20 to <30Sufficient 30 to 100Reference: Jazmyn Ramos, Darrion MARKS, et al. Evaluation,treatment, and prevention of vitamin D deficiency; an Endocrine Society clinical practice guideline. JCEM. 2010; 96(7):1911-30. pH Test strip (U)Ordered By: Nette Holden on 10-12-2024 pH (U) pH of Urine by Test strip 5.0-9.0 [facility] Alanine aminotransferase [En zymatic activity/volume] in Serum or PlasmaOrdered By: Matheus Robison on 10-08-2024 ALT [Catalytic activity/Vol] Alanine aminotransferase [Enzymatic activity/volume] in Serum or Plasma 7-52 [facility] Albumin [Mass/volume] in Ser um or Plasma by Bromocresol green (BCG) dye binding methoOrdered By: Matheus Robison on 10-08-2024 Albumin BCG dye [Mass/Vol] Albumin [Mass/volume] in Serum or Plasma by Bromocresol green (BCG) dye binding metho 3.5-5.7 [facility] Alkaline phosphatase [Enzyma tic activity/volume] in Serum or PlasmaOrdered By: Matheus Robison on 10-08-2024 ALP [Catalytic activity/Vol] Alkaline phosphatase [Enzymatic activity/volume] in Serum or Plasma 34-104 [facility] Aspartate aminotransferase [ Enzymatic activity/volume] in Serum or PlasmaOrdered By: Matheus Robison on 10-08-2024 AST [Catalytic activity/Vol] Aspartate aminotransferase [Enzymatic activity/volume] in Serum or Plasma Low 13-39 [facility] Basophils Auto (Bld) [#/Vol] Ordered By: Matheus Robison on 10-08-2024 Basophils (Bld) [#/Vol] Automated basophil count 0.0-0.2 [facility] Basophils/100 WBC Auto (Bld) Ordered By: Matheus Robison on 10-08-2024 Basophils/100 WBC (Bld) Automated basophil % . [facility] Bilirubin.total [Mass/volume ] in Serum or PlasmaOrdered By: Matheus Robison on 10-08-2024 Bilirubin [Mass/Vol] Bilirubin.total [Mass/volume] in Serum or Plasma 0.3-1.0 [facility] Calcium [Mass/volume] in Ser um or PlasmaOrdered By: Matheus Robison on 10-08-2024 Calcium [Mass/Vol] Calcium [Mass/volume ] in Serum or Plasma 8.6-10.3 [facility] Carbon dioxide, total [Moles /volume] in Serum or PlasmaOrdered By: Matheus Robison on 10-08-2024 CO2 [Moles/Vol] Carbon dioxide, tota l [Moles/volume] in Serum or Plasma 21.0-31.0 [facility] Chloride [Moles/volume] in S antolin or PlasmaOrdered By: Matheus Robison on 10-08-2024 Chloride [Moles/Vol] Chloride [Moles/vol ume] in Serum or Plasma 98-107 [facility] Complete Blood Count Auto Di ffon 10-08-2024 Basophils (Bld) [#/Vol] 0.0 10*3/uL Normal 0.0-0.2 [facility] Comment on above: Result Comment: PERF ORMED BY: [place] [address] PATHOLOGIST INFECTION CONTROL SPECIALIST SONJA FALLON M.D. Performed By: #### C BC, MG, CMP, PHOS #### [address] Basophils/100 WBC (Bld) 0.5 % Normal . T juli [facility] Comment on above: Performed By: #### C BC, MG, CMP, PHOS #### [address] Eosinophils (Bld) [#/Vol] 0.2 10*3/uL Normal 0.0-0.45 [facility] Comment on above: Performed By: #### C BC, MG, CMP, PHOS #### [address] Eosinophils/100 WBC (Bld) 2.7 % Normal . [facility] Comment on above: Performed By: #### C BC, MG, CMP, PHOS #### [address] Erythrocyte distribution width (RBC) [Ratio] 13.4 % Normal 12.0-14.8 [facility] Comment on above: Performed By: #### C BC, MG, CMP, PHOS #### [address] Hematocrit (Bld) [Volume fraction] 33.0 % Low 38.8-50.0 [facility] Comment on above: Performed By: #### C BC, MG, CMP, PHOS #### [address] Hemoglobin (Bld) [Mass/Vol] 10.9 g/dL Low 13.0-17.0 [facility] Comment on above: Performed By: #### C BC, MG, CMP, PHOS #### [address] Lymphocytes (Bld) [#/Vol] 2.6 10*3/uL Normal 1.00-4.8 [facility] Comment on above: Performed By: #### C BC, MG, CMP, PHOS #### [address] Lymphocytes/100 WBC (Bld) 34.9 % Normal . [facility] Comment on above: Performed By: #### C BC, MG, CMP, PHOS #### [address] MCH (RBC) [Entitic mass] 27.2 pg Low 27.5-35.2 [facility] Comment on above: Performed By: #### C BC, MG, CMP, PHOS #### [address] MCV (RBC) [Entitic vol] 82.3 fL Low 83.5-101 T [facility] Comment on above: Performed By: #### C BC, MG, CMP, PHOS #### [address] Mean Corpuscular HGB Conc 33.1 g/dL Normal 32.5-35.6 [facility] Comment on above: Performed By: #### C BC, MG, CMP, PHOS #### [address] Monocytes (Bld) [#/Vol] 0.9 10*3/uL High 0.0-0.8 [facility] Comment on above: Performed By: #### C BC, MG, CMP, PHOS #### [address] Monocytes/100 WBC (Bld) 12.6 % Normal . T juli [facility] Comment on above: Performed By: #### C BC, MG, CMP, PHOS #### [address] Neutrophils (Bld) [#/Vol] 3.7 10*3/uL Normal 1.8-7.7 [facility] Comment on above: Performed By: #### C BC, MG, CMP, PHOS #### [address] Neutrophils/100 WBC (Bld) 49.3 % Normal . [facility] Comment on above: Performed By: #### C BC, MG, CMP, PHOS #### [address] NRBC% 0.1 /100{WBC} Normal 0-0.5 [facility] Comment on above: Performed By: #### C BC, MG, CMP, PHOS #### [address] Platelet mean volume (Bld) [Entitic vol] 8.3 fL Normal 6.6-10.1 [facility] Comment on above: Performed By: #### C BC, MG, CMP, PHOS #### [place] [address] [place] Platelets (Bld) [#/Vol] 188 10*3/uL Normal 150-450 [facility] Comment on above: Performed By: #### C BC, MG, CMP, PHOS #### [place] [address] [place] RBC (Bld) [#/Vol] 4.01 10*6/uL Normal 3.90-5.60 [facility] Comment on above: Performed By: #### C BC, MG, CMP, PHOS #### [place] [address] [place] WBC (Bld) [#/Vol] 7.5 10*3/uL Normal 4.1-10.5 [facility] Comment on above: Performed By: #### C BC, MG, CMP, PHOS #### [address] Comprehensive Metabolic Pane jered 10-08-2024 Albumin [Mass/Vol] 3.6 g/dL Normal 3.5-5.7 [facility] Comment on above: Performed By: #### C BC, MG, CMP, PHOS #### [address] Albumin/Globulin [Mass ratio] 1.6 {ratio} Normal [facility] Comment on above: Performed By: #### C BC, MG, CMP, PHOS #### [address] ALP [Catalytic activity/Vol] 84 U/L Normal 34-104 [facility] Comment on above: Performed By: #### C BC, MG, CMP, PHOS #### [address] ALT [Catalytic activity/Vol] 11 U/L Normal 7-52 [facility] Comment on above: Performed By: #### C BC, MG, CMP, PHOS #### [address] Anion gap [Moles/Vol] 13.1 mmol/L Normal 6.0-15.0 Th e [facility] Comment on above: Performed By: #### C BC, MG, CMP, PHOS #### [address] AST [Catalytic activity/Vol] 12 U/L Low 13-39 [facility] Comment on above: Performed By: #### C BC, MG, CMP, PHOS #### [address] Bilirubin [Mass/Vol] 0.5 mg/dL Normal 0.3-1.0 [facility] Comment on above: Performed By: #### C BC, MG, CMP, PHOS #### [address] [place] [address] [place] Calcium [Mass/Vol] 8.7 mg/dL Normal 8.6-10.3 [facility] Comment on above: Performed By: #### C BC, MG, CMP, PHOS #### [address] Chloride [Moles/Vol] 104 mmol/L Normal 98-107 [facility] Comment on above: Performed By: #### C BC, MG, CMP, PHOS #### [address] CO2 [Moles/Vol] 24.1 mmol/L Normal 21.0-31.0 [facility] Comment on above: Performed By: #### C BC, MG, CMP, PHOS #### [address] Creatinine [Mass/Vol] 3.16 mg/dL High 0.70-1.30 [facility] Comment on above: Performed By: #### C BC, MG, CMP, PHOS #### [address] Creatinine Clr Calc Pharmacy 20.20 Normal [facility] Comment on above: Result Comment: PERF ORMED BY: [place] [address] PATHOLOGIST INFECTION CONTROL SPECIALIST SONJA FALLON M.D. Performed By: #### C BC, MG, CMP, PHOS #### [address] Estimated GFR 19.856 mL/Min Normal [facility] Comment on above: Performed By: #### C BC, MG, CMP, PHOS #### [address] Globulin (S) [Mass/Vol] 2.3 g/dL Normal [facility] Comment on above: Performed By: #### C BC, MG, CMP, PHOS #### [address] Glucose [Mass/Vol] 57 mg/dL Low 70-100 [facility] Comment on above: Result Comment: [place] Glucose Reference Range is dependent on time and content of last meal. Glucose of more than 200 mg/dL in a nonstressed, ambulatory subject supports the diagnosis of Diabetes Mellitus. ADA recommended reference range Performed By: #### C BC, MG, CMP, PHOS #### [facility] [address] Potassium [Moles/Vol] 4.2 mmol/L Normal 3.5-5.1 [facility] Comment on above: Performed By: #### C BC, MG, CMP, PHOS #### [address] Protein [Mass/Vol] 5.9 g/dL Low 6.4-8.9 [facility] Comment on above: Performed By: #### C BC, MG, CMP, PHOS #### [address] Sodium [Moles/Vol] 137 mmol/L Normal 136-145 [facility] Comment on above: Performed By: #### C BC, MG, CMP, PHOS #### [address] Urea nitrogen [Mass/Vol] 63 mg/dL High 7-25 [facility] Comment on above: Performed By: #### C BC, MG, CMP, PHOS #### [place] [address] [place] Creatinine [Mass/volume] in Serum or PlasmaOrdered By: Matheus Robison on 10-08-2024 Creatinine [Mass/Vol] Creatinine [Mass/v olume] in Serum or Plasma High 0.70-1.30 [facility] Eosinophils Auto (Bld) [#/Vo l]Ordered By: Matheus Robison on 10-08-2024 Eosinophils (Bld) [#/Vol] Automated eosinophil count 0.0-0.45 [facility] Eosinophils/100 WBC Auto (Bl d)Ordered By: Matheus Robison on 10-08-2024 Eosinophils/100 WBC (Bld) Automated eosinophil % . [facility] Erythrocyte distribution wid th Auto (RBC) [Ratio]Ordered By: Matheus Robison on 10-08-2024 Erythrocyte distribution width (RBC) [Ratio] Erythrocyte distribution width [Ratio] by Automated count 12.0-14.8 [facility] Globulin Calc (S) [Mass/Vol] Ordered By: Matheus Robison on 10-08-2024 Globulin (S) [Mass/Vol] Serum globulin measurement by calculation (mass/volume) [facility] Glucose Glucometer (BldC) [M ass/Vol]Ordered By: Matheus Robison on 10-08-2024 Glucose [Mass/Vol] Capillary blood gluc ose measurement by glucometer (mass/volume) [facility] Comment on above: Random Glucose Refer ence Range is dependent on time and content of last meal. Glucose of more than 200 mg/dL in a nonstressed, ambulatory subject supports the diagnosis of Diabetes Mellitus. Glucose Poct Glucometerson 0 10-08-2024 Glucose [Mass/Vol] 245 mg/dL Normal [facility] Comment on above: Result Comment: [place] Glucose Reference Range is dependent on time and content of last meal. Glucose of more than 200 mg/dL in a nonstressed, ambulatory subject supports the diagnosis of Diabetes Mellitus. PERFORMED BY: [place] [address] PATHOLOGIST INFECTION CONTROL SPECIALIST SONJA FALLON M.D. Performed By: #### C BC, MG, CMP, PHOS #### [facility] [address] [place] [address] Glucose [Mass/Vol] 246 mg/dL Normal [facility] Comment on above: Result Comment: [place] om Glucose Reference Range is dependent on time and content of last meal. Glucose of more than 200 mg/dL in a nonstressed, ambulatory subject supports the diagnosis of Diabetes Mellitus. PERFORMED BY: [place] [address] PATHOLOGIST INFECTION CONTROL SPECIALIST SONJA FALLON M.D. Performed By: #### P HOS, MG, [id number], URIC #### [address] [address] [facility] Glucose [Mass/Vol] 70 mg/dL Normal [facility] Comment on above: Result Comment: [place] Glucose Reference Range is dependent on time and content of last meal. Glucose of more than 200 mg/dL in a nonstressed, ambulatory subject supports the diagnosis of Diabetes Mellitus. PERFORMED BY: [facility] [address] [facility] [place] [id number] PATHOLOGIST INFECTION CONTROL SPECIALIST SONJA FALLON M.D. Performed By: #### P HOS, MG, [id number], URIC #### [facility] [address] [place] [id number] [facility] Glucose [Mass/volume] in Ser um or PlasmaOrdered By: Matheus Robison on 10-08-2024 Glucose [Mass/Vol] Glucose [Mass/volume ] in Serum or Plasma Low 70-100 [facility] Comment on above: ADA recommended refe rence rangeRandom Glucose Reference Range is dependent on time and content of last meal. Glucose of more than 200 mg/dL in a nonstressed, ambulatory subject supports the diagnosis of Diabetes Mellitus. Hematocrit Auto (Bld) [Volum e fraction]Ordered By: Matheus Robison on 10-08-2024 Hematocrit (Bld) [Volume fraction] Hematocrit [Volume Fraction] of Blood by Automated count Low 38.8-50.0 [facility] Hemoglobin [Mass/volume] in BloodOrdered By: Matheus Robison on 10-08-2024 Hemoglobin (Bld) [Mass/Vol] Hemoglobin [Mass/volume] in Blood Low 13.0-17.0 [facility] Leukocytes [#/volume] correc ruben for nucleated erythrocytes in Blood by Automated counOrdered By: Matheus Robison on 10-08-2024 WBC corrected for nucl RBC Auto (Bld) [#/Vol] Leukocytes [#/volume] corrected for nucleated erythrocytes in Blood by Automated coun 4.1-10.5 [facility] Lymphocytes Auto (Bld) [#/Vo l]Ordered By: Matheus Robison on 10-08-2024 Lymphocytes (Bld) [#/Vol] Lymphocytes [#/volume] in Blood by Automated count 1.00-4.8 [facility] Lymphocytes/100 WBC Auto (Bl d)Ordered By: Matheus Robison on 10-08-2024 Lymphocytes/100 WBC (Bld) Lymphocytes/100 leukocytes in Blood by Automated count . [facility] MCH Auto (RBC) [Entitic mass ]Ordered By: Matheus Robison on 10-08-2024 MCH (RBC) [Entitic mass] MCH [Entitic mass] by Automated count Low 27.5-35.2 [facility] MCHC Auto (RBC) [Mass/Vol]Or dered By: Matheus Robison on 10-08-2024 MCHC (RBC) [Mass/Vol] MCHC [Mass/volume] by Automated count 32.5-35.6 [facility] MCV Auto (RBC) [Entitic vol] Ordered By: Matheus Robison on 10-08-2024 MCV (RBC) [Entitic vol] MCV [Entitic vol ume] by Automated count Low 83.5-101 [facility] Monocytes Auto (Bld) [#/Vol] Ordered By: Matheus Robison on 10-08-2024 Monocytes (Bld) [#/Vol] Automated blood monocyte count High 0.0-0.8 [facility] Monocytes/100 WBC Auto (Bld) Ordered By: Matheus Robison on 10-08-2024 Monocytes/100 WBC (Bld) Automated monocyte % . [facility] Neutrophils Auto (Bld) [#/Vo l]Ordered By: Matheus Robison on 10-08-2024 Neutrophils (Bld) [#/Vol] Neutrophils [#/volume] in Blood by Automated count 1.8-7.7 [facility] Neutrophils/100 WBC Auto (Bl d)Ordered By: Matheus Robison on 10-08-2024 Neutrophils/100 WBC (Bld) Automated neutrophil % . [facility] No Panel InformationOrdered By: Matheus Robison on 10-08-2024 Estimated GFR (CKD-EPI) 19.856 mL/Min [facility] Creatinine Clearance (Chem 20.20 [facility] Nucleated erythrocytes [Pres ence] in Blood by Automated countOrdered By: Matheus Robison on 10-08-2024 Nucleated RBC Auto Ql (Bld) Nucleated erythrocytes [Presence] in Blood by Automated count 0-0.5 [facility] Platelet mean volume Auto (B ld) [Entitic vol]Ordered By: Matheus Robison on 10-08-2024 Platelet mean volume (Bld) [Entitic vol] Platelet mean volume [Entitic volume] in Blood by Automated count 6.6-10.1 [facility] Platelets Auto (Bld) [#/Vol] Ordered By: Matheus Robison on 10-08-2024 Platelets (Bld) [#/Vol] Platelets [#/vol ume] in Blood by Automated count 150-450 [facility] Potassium [Moles/volume] in Serum or PlasmaOrdered By: Matheus Robison on 10-08-2024 Potassium [Moles/Vol] Potassium [Moles/v olume] in Serum or Plasma 3.5-5.1 [facility] Protein [Mass/volume] in Ser um or PlasmaOrdered By: Matheus Robison on 10-08-2024 Protein [Mass/Vol] Protein [Mass/volume ] in Serum or Plasma Low 6.4-8.9 [facility] RBC Auto (Bld) [#/Vol]Ordere d By: Matheus Robison on 10-08-2024 RBC (Bld) [#/Vol] Erythrocytes [#/volu me] in Blood by Automated count 3.90-5.60 [facility] Serum or plasma albumin/glob ulin mass ratioOrdered By: Matheus Robison on 10-08-2024 Albumin/Globulin [Mass ratio] Serum or plasma albumin/globulin mass ratio [facility] Serum or plasma anion gap de terminationOrdered By: Matheus Robison on 10-08-2024 Anion gap [Moles/Vol] Serum or plasma an ion gap determination 6.0-15.0 [facility] Sodium [Moles/volume] in Ser um or PlasmaOrdered By: Matheus Robison on 10-08-2024 Sodium [Moles/Vol] Sodium [Moles/volume ] in Serum or Plasma 136-145 [facility] Urea nitrogen [Mass/volume] in Serum or PlasmaOrdered By: Matheus Robison on 10-08-2024 Urea nitrogen [Mass/Vol] Urea nitrogen [Mass/volume] in Serum or Plasma High 7-25 [facility] WBC Auto (Bld) [#/Vol]Ordere d By: Matheus Enriqueta on 10-08-2024 WBC (Bld) [#/Vol] Leukocytes [#/volume ] in Blood by Automated count 4.1-10.5 [facility] Complete Blood Count Auto Di ffon 10-07-2024 Basophils (Bld) [#/Vol] 0.0 10*3/uL Normal 0.0-0.2 [facility] Comment on above: Result Comment: PERF ORMED BY: [place] [address] PATHOLOGIST INFECTION CONTROL SPECIALIST SONJA FALLON M.D. Performed By: #### C BC, MG, CMP, PHOS #### [address] Basophils/100 WBC (Bld) 0.6 % Normal . T he [facility] Comment on above: Performed By: #### C BC, MG, CMP, PHOS #### [address] Eosinophils (Bld) [#/Vol] 0.2 10*3/uL Normal 0.0-0.45 [facility] Comment on above: Performed By: #### C BC, MG, CMP, PHOS #### [address] Eosinophils/100 WBC (Bld) 2.7 % Normal . [facility] Comment on above: Performed By: #### C BC, MG, CMP, PHOS #### [address] Erythrocyte distribution width (RBC) [Ratio] 13.1 % Normal 12.0-14.8 [facility] Comment on above: Performed By: #### C BC, MG, CMP, PHOS #### [address] Hematocrit (Bld) [Volume fraction] 32.9 % Low 38.8-50.0 [facility] Comment on above: Performed By: #### C BC, MG, CMP, PHOS #### [address] Hemoglobin (Bld) [Mass/Vol] 10.7 g/dL Low 13.0-17.0 [facility] Comment on above: Performed By: #### C BC, MG, CMP, PHOS #### [address] Lymphocytes (Bld) [#/Vol] 2.3 10*3/uL Normal 1.00-4.8 [facility] Comment on above: Performed By: #### C BC, MG, CMP, PHOS #### [address] Lymphocytes/100 WBC (Bld) 31.0 % Normal . [facility] Comment on above: Performed By: #### C BC, MG, CMP, PHOS #### [address] MCH (RBC) [Entitic mass] 27.4 pg Low 27.5-35.2 [facility] Comment on above: Performed By: #### C BC, MG, CMP, PHOS #### [address] MCV (RBC) [Entitic vol] 83.8 fL Normal 83.5-101 T he [facility] Comment on above: Performed By: #### C BC, MG, CMP, PHOS #### [address] Mean Corpuscular HGB Conc 32.7 g/dL Normal 32.5-35.6 [facility] Comment on above: Performed By: #### C BC, MG, CMP, PHOS #### [address] Monocytes (Bld) [#/Vol] 1.0 10*3/uL High 0.0-0.8 [facility] Comment on above: Performed By: #### C BC, MG, CMP, PHOS #### [address] Monocytes/100 WBC (Bld) 13.5 % Normal . T juli [facility] Comment on above: Performed By: #### C BC, MG, CMP, PHOS #### [facility] [address] Neutrophils (Bld) [#/Vol] 3.9 10*3/uL Normal 1.8-7.7 [facility] Comment on above: Performed By: #### C BC, MG, CMP, PHOS #### [facility] [address] Neutrophils/100 WBC (Bld) 52.2 % Normal . [facility] Comment on above: Performed By: #### C BC, MG, CMP, PHOS #### [address] NRBC% 0.1 /100{WBC} Normal 0-0.5 [facility] Comment on above: Performed By: #### C BC, MG, CMP, PHOS #### [address] Platelet mean volume (Bld) [Entitic vol] 8.6 fL Normal 6.6-10.1 [facility] Comment on above: Performed By: #### C BC, MG, CMP, PHOS #### [place] [address] [place] Platelets (Bld) [#/Vol] 164 10*3/uL Normal 150-450 [facility] Comment on above: Performed By: #### C BC, MG, CMP, PHOS #### [facility] [address] [place] [address] [place] RBC (Bld) [#/Vol] 3.92 10*6/uL Normal 3.90-5.60 [facility] Comment on above: Performed By: #### C BC, MG, CMP, PHOS #### [facility] [address] [place] [address] [place] WBC (Bld) [#/Vol] 7.4 10*3/uL Normal 4.1-10.5 [facility] Comment on above: Performed By: #### C BC, MG, CMP, PHOS #### [address] Comprehensive Metabolic Pane jered 10-07-2024 Albumin [Mass/Vol] 3.5 g/dL Normal 3.5-5.7 [facility] Comment on above: Performed By: #### C BC, MG, CMP, PHOS #### [address] Albumin/Globulin [Mass ratio] 1.3 {ratio} Normal [facility] Comment on above: Performed By: #### C BC, MG, CMP, PHOS #### [address] ALP [Catalytic activity/Vol] 83 U/L Normal 34-104 [facility] Comment on above: Performed By: #### C BC, MG, CMP, PHOS #### [address] ALT [Catalytic activity/Vol] 11 U/L Normal 7-52 [facility] Comment on above: Performed By: #### C BC, MG, CMP, PHOS #### [address] Anion gap [Moles/Vol] 13.6 mmol/L Normal 6.0-15.[address] [facility] Comment on above: Performed By: #### C BC, MG, CMP, PHOS #### [address] AST [Catalytic activity/Vol] 10 U/L Low 13-39 [facility] Comment on above: Performed By: #### C BC, MG, CMP, PHOS #### [address] Bilirubin [Mass/Vol] 0.4 mg/dL Normal 0.3-1.0 [facility] Comment on above: Performed By: #### C BC, MG, CMP, PHOS #### [address] Calcium [Mass/Vol] 8.8 mg/dL Normal 8.6-10.3 [facility] Comment on above: Performed By: #### C BC, MG, CMP, PHOS #### [address] Chloride [Moles/Vol] 103 mmol/L Normal 98-107 [facility] Comment on above: Performed By: #### C BC, MG, CMP, PHOS #### [address] CO2 [Moles/Vol] 23.5 mmol/L Normal 21.0-31.0 [facility] Comment on above: Performed By: #### C BC, MG, CMP, PHOS #### [address] Creatinine [Mass/Vol] 3.09 mg/dL High 0.70-1.30 [facility] Comment on above: Performed By: #### C BC, MG, CMP, PHOS #### [address] Creatinine Clr Calc Pharmacy 20.44 Normal [facility] Comment on above: Performed By: #### C BC, MG, CMP, PHOS #### [address] Estimated GFR 20.396 mL/Min Normal [facility] Comment on above: Performed By: #### C BC, MG, CMP, PHOS #### [address] Globulin (S) [Mass/Vol] 2.6 g/dL Normal T he [facility] Comment on above: Performed By: #### C BC, MG, CMP, PHOS #### [address] Glucose [Mass/Vol] 126 mg/dL Significant change up 70-100 [facility] Comment on above: Result Comment: [place] Glucose Reference Range is dependent on time and content of last meal. Glucose of more than 200 mg/dL in a nonstressed, ambulatory subject supports the diagnosis of Diabetes Mellitus. ADA recommended reference range Performed By: #### C BC, MG, CMP, PHOS #### [address] Potassium [Moles/Vol] 5.1 mmol/L Normal 3.5-5.1 [facility] Comment on above: Performed By: #### C BC, MG, CMP, PHOS #### [address] Protein [Mass/Vol] 6.1 g/dL Low 6.4-8.9 [facility] Comment on above: Performed By: #### C BC, MG, CMP, PHOS #### [address] Sodium [Moles/Vol] 135 mmol/L Low 136-145 [facility] Comment on above: Performed By: #### C BC, MG, CMP, PHOS #### [address] Urea nitrogen [Mass/Vol] 58 mg/dL High 7-25 [facility] Comment on above: Performed By: #### C BC, MG, CMP, PHOS #### [address] Glucose Poct Glucometerson 0 10-07-2024 Glucose [Mass/Vol] 188 mg/dL Normal [facility] Comment on above: Result Comment: [facility] Glucose Reference Range is dependent on time and content of last meal. Glucose of more than 200 mg/dL in a nonstressed, ambulatory subject supports the diagnosis of Diabetes Mellitus. PERFORMED BY: [place] [address] PATHOLOGIST INFECTION CONTROL SPECIALIST SONJA FALLON M.D. Performed By: #### C BC, MG, CMP, PHOS #### [address] Glucose [Mass/Vol] 134 mg/dL Normal [facility] Comment on above: Result Comment: [facility] Glucose Reference Range is dependent on time and content of last meal. Glucose of more than 200 mg/dL in a nonstressed, ambulatory subject supports the diagnosis of Diabetes Mellitus. PERFORMED BY: [place] [address] PATHOLOGIST INFECTION CONTROL SPECIALIST SONJA FALLON M.D. Performed By: #### G GIRMA #### Point of Care testing , Glucose [Mass/Vol] 164 mg/dL Normal [facility] Comment on above: Result Comment: [place] Glucose Reference Range is dependent on time and content of last meal. Glucose of more than 200 mg/dL in a nonstressed, ambulatory subject supports the diagnosis of Diabetes Mellitus. PERFORMED BY: [place] [address] PATHOLOGIST INFECTION CONTROL SPECIALIST SONJA FALLON M.D. Performed By: #### C BC, MG, CMP, PHOS #### [address] Glucose [Mass/Vol] 118 mg/dL Normal [facility] Comment on above: Result Comment: [place] Glucose Reference Range is dependent on time and content of last meal. Glucose of more than 200 mg/dL in a nonstressed, ambulatory subject supports the diagnosis of Diabetes Mellitus. PERFORMED BY: [place] [address] PATHOLOGIST INFECTION CONTROL SPECIALIST SONJA FALLON M.D. Performed By: #### C BC, MG, CMP, PHOS #### [address] Magnesiumon 10-07-2024 Magnesium [Mass/Vol] 1.6 mg/dL Low 1.9-2.7 [facility] Comment on above: Result Comment: PERF ORMED BY: [place] [address] PATHOLOGIST INFECTION CONTROL SPECIALIST SONJA FALLON M.D. Performed By: #### C BC, MG, CMP, PHOS #### [address] Magnesium [Mass/volume] in S antolin or PlasmaOrdered By: Matheus Robison on 10-07-2024 Magnesium [Mass/Vol] Magnesium [Mass/vol ume] in Serum or Plasma Low 1.9-2.7 [facility] Phosphate [Mass/volume] in S antolin or PlasmaOrdered By: Matheus Robison on 10-07-2024 Phosphate [Mass/Vol] Phosphate [Mass/vol ume] in Serum or Plasma 2.5-4.5 [facility] Phosphoruson 10-07-2024 Phosphate [Mass/Vol] 4.4 mg/dL Normal 2.5-4.5 [facility] Comment on above: Performed By: #### C BC, MG, CMP, PHOS #### [facility] [address] Alanine aminotransferase [En zymatic activity/volume] in Serum or PlasmaOrdered By: Nellie Wynne on 10-06-2024 ALT [Catalytic activity/Vol] Alanine aminotransferase [Enzymatic activity/volume] in Serum or Plasma [address] [place] [address] Alanine aminotransferase [En zymatic activity/volume] in Serum or PlasmaOrdered By: Matheus Robison on 10-06-2024 ALT [Catalytic activity/Vol] Alanine aminotransferase [Enzymatic activity/volume] in Serum or Plasma [address] [place] [address] Albumin [Mass/volume] in Ser um or Plasma by Bromocresol green (BCG) dye binding methoOrdered By: Nellie Wynne on 10-06-2024 Albumin BCG dye [Mass/Vol] Albumin [Mass/volume] in Serum or Plasma by Bromocresol green (BCG) dye binding metho 3.5-5.7 [facility] Albumin [Mass/volume] in Ser um or Plasma by Bromocresol green (BCG) dye binding methoOrdered By: Matheus Robison on 10-06-2024 Albumin BCG dye [Mass/Vol] Albumin [Mass/volume] in Serum or Plasma by Bromocresol green (BCG) dye binding metho Low 3.5-5.7 [facility] Alkaline phosphatase [Enzyma tic activity/volume] in Serum or PlasmaOrdered By: Nellie Wynne on 10-06-2024 ALP [Catalytic activity/Vol] Alkaline phosphatase [Enzymatic activity/volume] in Serum or Plasma 34-104 [facility] Alkaline phosphatase [Enzyma tic activity/volume] in Serum or PlasmaOrdered By: Matheus Robison on 10-06-2024 ALP [Catalytic activity/Vol] Alkaline phosphatase [Enzymatic activity/volume] in Serum or Plasma 34-104 [facility] Appearance of UrineOrdered B y: Nellie Wynne on 10-06-2024 Appearance (U) Urine appearance Clear [facility] Aspartate aminotransferase [ Enzymatic activity/volume] in Serum or PlasmaOrdered By: Nellie Wynne on 10-06-2024 AST [Catalytic activity/Vol] Aspartate aminotransferase [Enzymatic activity/volume] in Serum or Plasma 13-39 [facility] Aspartate aminotransferase [ Enzymatic activity/volume] in Serum or PlasmaOrdered By: Matheus Robison on 10-06-2024 AST [Catalytic activity/Vol] Aspartate aminotransferase [Enzymatic activity/volume] in Serum or Plasma Low 13-39 [facility] Bacteria [Presence] in Urine by AutomatedOrdered By: Nellie Wynne on 10-06-2024 Bacteria Auto Ql (U) Bacteria [Presence] in Urine by Automated None Seen [facility] Basophils Auto (Bld) [#/Vol] Ordered By: ANTWON SALAZAR on 10-06-2024 Basophils (Bld) [#/Vol] Automated basophil count 0.0-0.2 [facility] Basophils Auto (Bld) [#/Vol] Ordered By: Matheus Robison on 10-06-2024 Basophils (Bld) [#/Vol] Automated basophil count 0.0-0.2 [facility] Basophils/100 WBC Auto (Bld) Ordered By: ANTWON SALAZAR on 10-06-2024 Basophils/100 WBC (Bld) Automated basophil % . [facility] Basophils/100 WBC Auto (Bld) Ordered By: Matheus Robison on 10-06-2024 Basophils/100 WBC (Bld) Automated basophil % . [facility] Bilirubin Test strip Ql (U)O rdered By: Nellie Wynne on 10-06-2024 Bilirubin Ql (U) Bilirubin.total [Presence] in Urine by Test strip Negative [facility] Bilirubin.total [Mass/volume ] in Serum or PlasmaOrdered By: Nellie Wynne on 10-06-2024 Bilirubin [Mass/Vol] Bilirubin.total [Mass/volume] in Serum or Plasma 0.3-1.0 [facility] Bilirubin.total [Mass/volume ] in Serum or PlasmaOrdered By: Matheus Robison on 10-06-2024 Bilirubin [Mass/Vol] Bilirubin.total [Mass/volume] in Serum or Plasma 0.3-1.0 [facility] Calcium [Mass/volume] in Ser um or PlasmaOrdered By: Nellie Wynne on 10-06-2024 Calcium [Mass/Vol] Calcium [Mass/volume ] in Serum or Plasma 8.6-10.3 [facility] Calcium [Mass/volume] in Ser um or PlasmaOrdered By: Matheus Robison on 10-06-2024 Calcium [Mass/Vol] Calcium [Mass/volume ] in Serum or Plasma 8.6-10.3 [facility] Carbon dioxide, total [Moles /volume] in Serum or PlasmaOrdered By: Nellie Wynne on 10-06-2024 CO2 [Moles/Vol] Carbon dioxide, tota l [Moles/volume] in Serum or Plasma 21.0-31.0 [facility] Carbon dioxide, total [Moles /volume] in Serum or PlasmaOrdered By: Matheus Robison on 10-06-2024 CO2 [Moles/Vol] Carbon dioxide, tota l [Moles/volume] in Serum or Plasma 21.0-31.0 [facility] Chloride [Moles/volume] in S antolin or PlasmaOrdered By: Nellie Wynne on 10-06-2024 Chloride [Moles/Vol] Chloride [Moles/vol ume] in Serum or Plasma 98-107 [facility] Chloride [Moles/volume] in S antolin or PlasmaOrdered By: Matheus Robison on 10-06-2024 Chloride [Moles/Vol] Chloride [Moles/vol ume] in Serum or Plasma 98-107 [facility] Color Auto (U)Ordered By: Rosie Wynne on 10-06-2024 Color (U) Color of Urine by Auto Yellow [facility] Complete Blood Count Auto Di ffon 10-06-2024 Basophils (Bld) [#/Vol] 0.0 10*3/uL Normal 0.0-0.2 [facility] Comment on above: Result Comment: PERF ORMED BY: [place] [address] PATHOLOGIST INFECTION CONTROL SPECIALIST SONJA FALLON M.D. Performed By: #### P HOS, MG, [id number], URIC #### [address] Basophils/100 WBC (Bld) 0.6 % Normal . T he [facility] Comment on above: Performed By: #### P HOS, MG, [id number], URIC #### [address] Eosinophils (Bld) [#/Vol] 0.2 10*3/uL Normal 0.0-0.45 [facility] Comment on above: Performed By: #### P HOS, MG, [id number], URIC #### [address] Eosinophils/100 WBC (Bld) 2.7 % Normal . [facility] Comment on above: Performed By: #### P HOS, MG, [id number], URIC #### [address] Erythrocyte distribution width (RBC) [Ratio] 13.8 % Normal 12.0-14.8 [facility] Comment on above: Performed By: #### P HOS, MG, [id number], URIC #### [address] Hematocrit (Bld) [Volume fraction] 34.3 % Low 38.8-50.0 [facility] Comment on above: Performed By: #### P HOS, MG, [id number], URIC #### [address] Hemoglobin (Bld) [Mass/Vol] 11.2 g/dL Low 13.0-17.0 [facility] Comment on above: Performed By: #### P HOS, MG, [id number], URIC #### [address] Lymphocytes (Bld) [#/Vol] 1.9 10*3/uL Normal 1.00-4.8 [facility] Comment on above: Performed By: #### P HOS, MG, [id number], URIC #### [address] Lymphocytes/100 WBC (Bld) 27.0 % Normal . [facility] Comment on above: Performed By: #### P HOS, MG, [id number], URIC #### [address] MCH (RBC) [Entitic mass] 27.2 pg Low 27.5-35.2 [facility] Comment on above: Performed By: #### P HOS, MG, [id number], URIC #### [address] MCV (RBC) [Entitic vol] 83.1 fL Low 83.5-101 [facility] Comment on above: Performed By: #### P HOS, MG, [id number], URIC #### [address] Mean Corpuscular HGB Conc 32.7 g/dL Normal 32.5-35.6 [facility] Comment on above: Performed By: #### P HOS, MG, [id number], URIC #### [address] Monocytes (Bld) [#/Vol] 0.7 10*3/uL Normal 0.0-0.8 [facility] Comment on above: Performed By: #### P HOS, MG, [id number], URIC #### [place] [address] [place] Monocytes/100 WBC (Bld) 17.85 % Normal 0.00-20.00 [facility] Comment on above: Performed By: #### P HOS, MG, [id number], URIC #### [address] Monocytes/100 WBC (Bld) 9.9 % Normal . [facility] Comment on above: Performed By: #### P HOS, MG, [id number], URIC #### [address] Neutrophils (Bld) [#/Vol] 4.2 10*3/uL Normal 1.8-7.7 [facility] Comment on above: Performed By: #### P HOS, MG, [id number], URIC #### [place] [address] [place] Neutrophils/100 WBC (Bld) 59.8 % Normal . [facility] Comment on above: Performed By: #### P HOS, MG, [id number], URIC #### [address] NRBC% 0.1 /100{WBC} Normal 0-0.5 [facility] Comment on above: Performed By: #### P HOS, MG, [id number], URIC #### [address] Platelet mean volume (Bld) [Entitic vol] 8.3 fL Normal 6.6-10.1 [facility] Comment on above: Performed By: #### P HOS, MG, [id number], URIC #### [address] Platelets (Bld) [#/Vol] 182 10*3/uL Normal 150-450 [facility] Comment on above: Performed By: #### P HOS, MG, [id number], URIC #### [place] [address] [place] RBC (Bld) [#/Vol] 4.13 10*6/uL Normal 3.90-5.60 [facility] Comment on above: Performed By: #### P HOS, MG, [id number], URIC #### [address] WBC (Bld) [#/Vol] 6.9 10*3/uL Normal 4.1-10.5 [facility] Comment on above: Performed By: #### P HOS, MG, [id number], URIC #### [place] [address] [place] Basophils (Bld) [#/Vol] 0.0 10*3/uL Normal 0.0-0.2 [facility] Comment on above: Result Comment: PERF ORMED BY: [place] [address] PATHOLOGIST INFECTION CONTROL SPECIALIST SONJA FALLON M.D. Performed By: #### C BC, MG, CMP, PHOS #### [address] Basophils/100 WBC (Bld) 0.5 % Normal . T juli [facility] Comment on above: Performed By: #### C BC, MG, CMP, PHOS #### [address] Eosinophils (Bld) [#/Vol] 0.2 10*3/uL Normal 0.0-0.45 [facility] Comment on above: Performed By: #### C BC, MG, CMP, PHOS #### [address] Eosinophils/100 WBC (Bld) 3.3 % Normal . [facility] Comment on above: Performed By: #### C BC, MG, CMP, PHOS #### [address] Erythrocyte distribution width (RBC) [Ratio] 13.4 % Normal 12.0-14.8 [facility] Comment on above: Performed By: #### C BC, MG, CMP, PHOS #### [address] Hematocrit (Bld) [Volume fraction] 33.7 % Low 38.8-50.0 [facility] Comment on above: Performed By: #### C BC, MG, CMP, PHOS #### [address] Hemoglobin (Bld) [Mass/Vol] 10.9 g/dL Low 13.0-17.0 [facility] Comment on above: Performed By: #### C BC, MG, CMP, PHOS #### [address] Lymphocytes (Bld) [#/Vol] 2.8 10*3/uL Normal 1.00-4.8 [facility] Comment on above: Performed By: #### C BC, MG, CMP, PHOS #### [address] Lymphocytes/100 WBC (Bld) 37.3 % Normal . [facility] Comment on above: Performed By: #### C BC, MG, CMP, PHOS #### [address] MCH (RBC) [Entitic mass] 27.2 pg Low 27.5-35.2 [facility] Comment on above: Performed By: #### C BC, MG, CMP, PHOS #### [address] MCV (RBC) [Entitic vol] 84.1 fL Normal 83.5-101 T [facility] Comment on above: Performed By: #### C BC, MG, CMP, PHOS #### [address] Mean Corpuscular HGB Conc 32.3 g/dL Low 32.5-35.6 [facility] Comment on above: Performed By: #### C BC, MG, CMP, PHOS #### [address] Monocytes (Bld) [#/Vol] 1.0 10*3/uL High 0.0-0.8 [facility] Comment on above: Performed By: #### C BC, MG, CMP, PHOS #### [address] Monocytes/100 WBC (Bld) 12.9 % Normal . [facility] Comment on above: Performed By: #### C BC, MG, CMP, PHOS #### [address] Neutrophils (Bld) [#/Vol] 3.5 10*3/uL Normal 1.8-7.7 [facility] Comment on above: Performed By: #### C BC, MG, CMP, PHOS #### [address] Neutrophils/100 WBC (Bld) 46.0 % Normal . [facility] Comment on above: Performed By: #### C BC, MG, CMP, PHOS #### [address] NRBC% 0.1 /100{WBC} Normal 0-0.5 [facility] Comment on above: Performed By: #### C BC, MG, CMP, PHOS #### [address] Platelet mean volume (Bld) [Entitic vol] 8.4 fL Normal 6.6-10.1 [facility] Comment on above: Performed By: #### C BC, MG, CMP, PHOS #### [place] [address] [place] Platelets (Bld) [#/Vol] 175 10*3/uL Normal 150-450 [facility] Comment on above: Performed By: #### C BC, MG, CMP, PHOS #### [place] [address] [place] RBC (Bld) [#/Vol] 4.00 10*6/uL Normal 3.90-5.60 [facility] Comment on above: Performed By: #### C BC, MG, CMP, PHOS #### [place] [address] [place] WBC (Bld) [#/Vol] 7.5 10*3/uL Normal 4.1-10.5 [facility] Comment on above: Performed By: #### C BC, MG, CMP, PHOS #### [address] Comprehensive Metabolic Pane jered 10-06-2024 Albumin [Mass/Vol] 3.7 g/dL Normal 3.5-5.7 [facility] Comment on above: Performed By: #### P HOS, MG, [id number], URIC #### [facility] [address] Albumin/Globulin [Mass ratio] 1.3 {ratio} Normal [facility] Comment on above: Performed By: #### P HOS, MG, [id number], URIC #### [address] ALP [Catalytic activity/Vol] 85 U/L Normal 34-104 [facility] Comment on above: Performed By: #### P HOS, MG, [id number], URIC #### [address] ALT [Catalytic activity/Vol] 14 U/L Normal 7-52 [facility] Comment on above: Performed By: #### P HOS, MG, [id number], URIC #### [address] Anion gap [Moles/Vol] 13.2 mmol/L Normal 6.0-15.0 Th e [facility] Comment on above: Performed By: #### P HOS, MG, [id number], URIC #### [address] AST [Catalytic activity/Vol] 13 U/L Normal 13-39 [facility] Comment on above: Performed By: #### P HOS, MG, [id number], URIC #### [address] Bilirubin [Mass/Vol] 0.4 mg/dL Normal 0.3-1.0 [facility] Comment on above: Performed By: #### P HOS, MG, [id number], URIC #### [address] Calcium [Mass/Vol] 9.5 mg/dL Normal 8.6-10.3 [facility] Comment on above: Performed By: #### P HOS, MG, [id number], URIC #### [address] Chloride [Moles/Vol] 101 mmol/L Normal 98-107 [facility] Comment on above: Performed By: #### P HOS, MG, [id number], URIC #### [address] CO2 [Moles/Vol] 24.3 mmol/L Normal 21.0-31.0 [facility] Comment on above: Performed By: #### P HOS, MG, [id number], URIC #### [address] Creatinine [Mass/Vol] 3.25 mg/dL High 0.70-1.30 [facility] Comment on above: Performed By: #### P HOS, MG, [id number], URIC #### [address] Creatinine Clr Calc Pharmacy 18.85 Normal [facility] Comment on above: Result Comment: PERF ORMED BY: [place] [address] PATHOLOGIST INFECTION CONTROL SPECIALIST SONJA FALLON M.D. Performed By: #### P HOS, MG, [id number], URIC #### [address] Estimated GFR 19.198 mL/Min Normal [facility] Comment on above: Performed By: #### P HOS, MG, [id number], URIC #### [address] Globulin (S) [Mass/Vol] 2.8 g/dL Normal [facility] Comment on above: Performed By: #### P HOS, MG, [id number], URIC #### [address] Glucose [Mass/Vol] 240 mg/dL Significant change up 70-100 [facility] Comment on above: Result Comment: [facility] Glucose Reference Range is dependent on time and content of last meal. Glucose of more than 200 mg/dL in a nonstressed, ambulatory subject supports the diagnosis of Diabetes Mellitus. ADA recommended reference range Performed By: #### P HOS, MG, [id number], URIC #### [facility] [address] [address] Potassium [Moles/Vol] 5.5 mmol/L High 3.5-5.1 [facility] Comment on above: Performed By: #### P HOS, MG, [id number], URIC #### [address] Protein [Mass/Vol] 6.5 g/dL Normal 6.4-8.9 [facility] Comment on above: Performed By: #### P HOS, MG, [id number], URIC #### [address] Sodium [Moles/Vol] 133 mmol/L Low 136-145 [facility] Comment on above: Performed By: #### P HOS, MG, [id number], URIC #### [place] [address] [place] Urea nitrogen [Mass/Vol] 55 mg/dL High 7-25 [facility] Comment on above: Performed By: #### P HOS, MG, [id number], URIC #### [place] [address] [place] Albumin [Mass/Vol] 3.4 g/dL Low 3.5-5.7 [facility] Comment on above: Performed By: #### C BC, MG, CMP, PHOS #### [place] [address] [place] Albumin/Globulin [Mass ratio] 1.3 {ratio} Normal [facility] Comment on above: Performed By: #### C BC, MG, CMP, PHOS #### [place] [id number] [place] ALP [Catalytic activity/Vol] 79 U/L Normal 34-104 [facility] Comment on above: Performed By: #### C BC, MG, CMP, PHOS #### [facility] [address] ALT [Catalytic activity/Vol] 14 U/L Normal 7-52 [facility] Comment on above: Performed By: #### C BC, MG, CMP, PHOS #### [facility] [address] Anion gap [Moles/Vol] 9.8 mmol/L Normal 6.0-15.0 [facility] Comment on above: Performed By: #### C BC, MG, CMP, PHOS #### [facility] [address] AST [Catalytic activity/Vol] 12 U/L Low 13-39 [facility] Comment on above: Performed By: #### C BC, MG, CMP, PHOS #### [address] Bilirubin [Mass/Vol] 0.4 mg/dL Normal 0.3-1.0 [facility] Comment on above: Performed By: #### C BC, MG, CMP, PHOS #### [place] [address] [place] Calcium [Mass/Vol] 8.9 mg/dL Normal 8.6-10.3 [facility] Comment on above: Performed By: #### C BC, MG, CMP, PHOS #### [place] [address] [place] Chloride [Moles/Vol] 107 mmol/L Normal 98-107 [facility] Comment on above: Performed By: #### C BC, MG, CMP, PHOS #### [facility] [address] [place] [address] [place] CO2 [Moles/Vol] 24.1 mmol/L Normal 21.0-31.0 [facility] Comment on above: Performed By: #### C BC, MG, CMP, PHOS #### [place] [address] [place] Creatinine [Mass/Vol] 3.00 mg/dL High 0.70-1.30 [facility] Comment on above: Performed By: #### C BC, MG, CMP, PHOS #### [address] Creatinine Clr Calc Pharmacy 19.49 Normal [facility] Comment on above: Result Comment: PERF ORMED BY: [place] [address] PATHOLOGIST INFECTION CONTROL SPECIALIST SONJA FALLON M.D. Performed By: #### C BC, MG, CMP, PHOS #### [address] Estimated GFR 21.133 mL/Min Normal [facility] Comment on above: Performed By: #### C BC, MG, CMP, PHOS #### [address] Globulin (S) [Mass/Vol] 2.6 g/dL Normal T [facility] Comment on above: Performed By: #### C BC, MG, CMP, PHOS #### [address] Glucose [Mass/Vol] 79 mg/dL Normal 70-100 [facility] Comment on above: Result Comment: [place] Glucose Reference Range is dependent on time and content of last meal. Glucose of more than 200 mg/dL in a nonstressed, ambulatory subject supports the diagnosis of Diabetes Mellitus. ADA recommended reference range Performed By: #### C BC, MG, CMP, PHOS #### [address] Potassium [Moles/Vol] 4.9 mmol/L Normal 3.5-5.1 [facility] Comment on above: Performed By: #### C BC, MG, CMP, PHOS #### [address] Protein [Mass/Vol] 6.0 g/dL Low 6.4-8.9 [facility] Comment on above: Performed By: #### C BC, MG, CMP, PHOS #### [facility] [address] [place] [address] [place] Sodium [Moles/Vol] 136 mmol/L Normal 136-145 [facility] Comment on above: Performed By: #### C BC, MG, CMP, PHOS #### [facility] [address] Urea nitrogen [Mass/Vol] 50 mg/dL High 7-25 [facility] Comment on above: Performed By: #### C BC, MG, CMP, PHOS #### [facility] [address] [place] [id number] [place] Creatine Kinaseon 10-06-2024 CK [Catalytic activity/Vol] 55 U/L Normal 30-223 [facility] Comment on above: Performed By: #### P HOS, MG, [id number], URIC #### [place] [id number] [facility] Creatine kinase [Enzymatic a ctivity/volume] in Serum or PlasmaOrdered By: Nellie Wynne on 10-06-2024 CK [Catalytic activity/Vol] Creatine kinase [Enzymatic activity/volume] in Serum or Plasma 30-223 [facility] Creatinine [Mass/volume] in Serum or PlasmaOrdered By: Nellie Wynne on 10-06-2024 Creatinine [Mass/Vol] Creatinine [Mass/v olume] in Serum or Plasma High 0.70-1.30 [facility] Creatinine [Mass/volume] in Serum or PlasmaOrdered By: Matheus Robison on 10-06-2024 Creatinine [Mass/Vol] Creatinine [Mass/v olume] in Serum or Plasma High 0.70-1.30 [facility] Dipstick and Microscopicon 0 10-06-2024 Appearance (U) Clear Normal Clear [facility] Comment on above: Order Comment: Reaso n for Exam Chronic kidney disease, stage III (moderate);Diabetes mellit Reason for Exam Chronic kidney disease, stage 3 unspecified;Anemia of renal Performed By: #### P HOS, MG, [id number], URIC #### [facility] [address] [place], [place] [id number] [facility] Bacteria,Urine Rare Normal None Seen [facility] Comment on above: Order Comment: Reaso n for Exam Chronic kidney disease, stage III (moderate);Diabetes mellit Reason for Exam Chronic kidney disease, stage 3 unspecified;Anemia of renal Performed By: #### P HOS, MG, [id number], URIC #### [facility] [address] [place] [address] [place] Bilirubin,Urine Negative Normal Negative [facility] Comment on above: Order Comment: Reaso n for Exam Chronic kidney disease, stage III (moderate);Diabetes mellit Reason for Exam Chronic kidney disease, stage 3 unspecified;Anemia of renal Performed By: #### P HOS, MG, [id number], URIC #### [facility] [address] [place] [address] [place] Color (U) Light-Yellow Normal Yellow [facility] Comment on above: Order Comment: Reaso n for Exam Chronic kidney disease, stage III (moderate);Diabetes mellit Reason for Exam Chronic kidney disease, stage 3 unspecified;Anemia of renal Performed By: #### P HOS, MG, [id number], URIC #### [facility] [address] [place] [address] [facility] Glucose Ql (U) Normal Normal Normal [facility] Comment on above: Order Comment: Reaso n for Exam Chronic kidney disease, stage III (moderate);Diabetes mellit Reason for Exam Chronic kidney disease, stage 3 unspecified;Anemia of renal Performed By: #### P HOS, MG, [id number], URIC #### [facility] [address] [place] [address] [place] Hyaline Casts,Urine 0 [LPF] Normal 0-8 [facility] Comment on above: Order Comment: Reaso n for Exam Chronic kidney disease, stage III (moderate);Diabetes mellit Reason for Exam Chronic kidney disease, stage 3 unspecified;Anemia of renal Performed By: #### P HOS, MG, [id number], URIC #### [facility] [address] [place] [address] [facility] Ketones Ql (U) Negative Normal Negative [facility] Comment on above: Order Comment: Reaso n for Exam Chronic kidney disease, stage III (moderate);Diabetes mellit Reason for Exam Chronic kidney disease, stage 3 unspecified;Anemia of renal Performed By: #### P HOS, MG, [id number], URIC #### [facility] [address] Leukocyte esterase Test strip Ql (U) 4+ High Negative [facility] Comment on above: Order Comment: Reaso n for Exam Chronic kidney disease, stage III (moderate);Diabetes mellit Reason for Exam Chronic kidney disease, stage 3 unspecified;Anemia of renal Performed By: #### P HOS, MG, [id number], URIC #### [facility] [address] Mucus,Urine Rare Normal [facility] Comment on above: Order Comment: Reaso n for Exam Chronic kidney disease, stage III (moderate);Diabetes mellit Reason for Exam Chronic kidney disease, stage 3 unspecified;Anemia of renal Result Comment: PERF ORMED BY: [place] [address] PATHOLOGIST INFECTION CONTROL SPECIALIST SONJA FALLON M.D. Performed By: #### P HOS, MG, [id number], URIC #### [facility] [address] Nitrite,Urine Negative Normal Negative [facility] Comment on above: Order Comment: Reaso n for Exam Chronic kidney disease, stage III (moderate);Diabetes mellit Reason for Exam Chronic kidney disease, stage 3 unspecified;Anemia of renal Performed By: #### P HOS, MG, [id number], URIC #### [facility] [address] [place] [address] Occult Blood,Urine Negative Normal Negative [facility] Comment on above: Order Comment: Reaso n for Exam Chronic kidney disease, stage III (moderate);Diabetes mellit Reason for Exam Chronic kidney disease, stage 3 unspecified;Anemia of renal Result Comment: PERF ORMED BY: [place] [address] PATHOLOGIST INFECTION CONTROL SPECIALIST SONJA FALLON M.D. Performed By: #### P HOS, MG, [id number], URIC #### [address] pH (U) 5.0 [pH] Normal 5.0-9.0 [facility] Comment on above: Order Comment: Reaso n for Exam Chronic kidney disease, stage III (moderate);Diabetes mellit Reason for Exam Chronic kidney disease, stage 3 unspecified;Anemia of renal Performed By: #### P HOS, MG, [id number], URIC #### [facility] [address] Protein,Urine Trace High Negative [facility] Comment on above: Order Comment: Reaso n for Exam Chronic kidney disease, stage III (moderate);Diabetes mellit Reason for Exam Chronic kidney disease, stage 3 unspecified;Anemia of renal Performed By: #### P HOS, MG, [id number], URIC #### [address] RBC,Urine 3 [HPF] Normal 0-4 [facility] Comment on above: Order Comment: Reaso n for Exam Chronic kidney disease, stage III (moderate);Diabetes mellit Reason for Exam Chronic kidney disease, stage 3 unspecified;Anemia of renal Performed By: #### P HOS, MG, [id number], URIC #### [address] Specificy [place],Urine 1.010 Normal 1.00 1-1.03 0 [facility] Comment on above: Order Comment: Reaso n for Exam Chronic kidney disease, stage III (moderate);Diabetes mellit Reason for Exam Chronic kidney disease, stage 3 unspecified;Anemia of renal Performed By: #### P HOS, MG, [id number], URIC #### [address] Squamous Epithelial Cell,Urine 1 [HPF] Normal 0-2 [facility] Comment on above: Order Comment: Reaso n for Exam Chronic kidney disease, stage III (moderate);Diabetes mellit Reason for Exam Chronic kidney disease, stage 3 unspecified;Anemia of renal Performed By: #### P HOS, MG, [id number], URIC #### [address] Urobilinogen,Urine Normal Normal Normal [facility] Comment on above: Order Comment: Reaso n for Exam Chronic kidney disease, stage III (moderate);Diabetes mellit Reason for Exam Chronic kidney disease, stage 3 unspecified;Anemia of renal Performed By: #### P HOS, MG, [id number], URIC #### [facility] [address] [place] [id number] [facility] WBC CLUMP, Urine Moderate High None Seen [facility] Comment on above: Order Comment: Reaso n for Exam Chronic kidney disease, stage III (moderate);Diabetes mellit Reason for Exam Chronic kidney disease, stage 3 unspecified;Anemia of renal Performed By: #### P HOS, MG, [id number], URIC #### [facility] [address] WBC,Urine 20 [HPF] High 0-4 [facility] Comment on above: Order Comment: Reaso n for Exam Chronic kidney disease, stage III (moderate);Diabetes mellit Reason for Exam Chronic kidney disease, stage 3 unspecified;Anemia of renal Performed By: #### P HOS, MG, [id number], URIC #### [facility] [address] [place] [id number] [facility] ECG 12 lead ECGon 10-06-2024 ECG 12 lead ECG [facility] [place] [address] [place] [address] Electrocardiograph Report Signed Patient: Gage Lugo MR#: [id number] : 1950 Acct:[id number] Age/Sex: 74 / M ADM Date: 10/06/24 Loc: Room: [address] [place] [address] Type: ADM IN Attending Dr: Matheus Robison MD Ordering Provider: Nellie Wynne MD Date of Service: 10/06/2410/30/1523 ECG/ECG 12 lead ECG: Syncope Copies to: Test Reason : Blood Pressure : */* mmHG Vent. Rate : 69 BPM Atrial Rate : 69 BPM P-R Int : 166 ms QRS Dur : 94 ms QT Int : 390 ms P-R-T Axes : 77 66 -39 degrees QTcB Int : 417 ms Normal sinus rhythm Low voltage QRS T wave abnormality, consider inferior ischemia Abnormal ECG When compared with ECG of 05-Oct-2024 08:26, Questionable change in QRS axis T wave inversion now evident in Inferior leads Confirmed by NELLIE WYNNE MD ([id number]) on 10/07/2024 1:48:21 AM Referred By: Electronically Signed By: NELLIE WYNNE MD Transcribed By: MUS Signed By Nellie Wynne MD 11/30 0148 Normal [facility] Eosinophils Auto (Bld) [#/Vo l]Ordered By: PROVIDER TEMP on 10-06-2024 Eosinophils (Bld) [#/Vol] Automated eosinophil count 0.0-0.45 [facility] Eosinophils Auto (Bld) [#/Vo l]Ordered By: Matheus Robison on 10-06-2024 Eosinophils (Bld) [#/Vol] Automated eosinophil count 0.0-0.45 [facility] Eosinophils/100 WBC Auto (Bl d)Ordered By: PROVIDER TEMP on 10-06-2024 Eosinophils/100 WBC (Bld) Automated eosinophil % . [facility] Eosinophils/100 WBC Auto (Bl d)Ordered By: Matheus Robison on 10-06-2024 Eosinophils/100 WBC (Bld) Automated eosinophil % . [facility] Epithelial cells.squamous [# /area] in Urine sediment by Automated countOrdered By: Nellie Wynne on 10-06-2024 Epithelial cells.squamous Auto (Urine sed) [#/Area] Epithelial cells.squamous [#/area] in Urine sediment by Automated count 0-2 [facility] Erythrocyte distribution wid th Auto (RBC) [Ratio]Ordered By: PROVIDER TEMP on 10-06-2024 Erythrocyte distribution width (RBC) [Ratio] Erythrocyte distribution width [Ratio] by Automated count 12.0-14.8 [facility] Erythrocyte distribution wid th Auto (RBC) [Ratio]Ordered By: Matheus Robison on 10-06-2024 Erythrocyte distribution width (RBC) [Ratio] Erythrocyte distribution width [Ratio] by Automated count 12.0-14.8 [facility] Erythrocytes [#/area] in Uri ne sediment by Automated countOrdered By: Nellie Wynne on 10-06-2024 RBC Auto (Urine sed) [#/Area] Erythrocytes [#/area] in Urine sediment by Automated count 0-4 [facility] Globulin Calc (S) [Mass/Vol] Ordered By: Nellie Wynne on 10-06-2024 Globulin (S) [Mass/Vol] Serum globulin measurement by calculation (mass/volume) [facility] Globulin Calc (S) [Mass/Vol] Ordered By: Matheus Robison on 10-06-2024 Globulin (S) [Mass/Vol] Serum globulin measurement by calculation (mass/volume) [facility] Glucose Glucometer (BldC) [M ass/Vol]Ordered By: Nellie Wynne on 10-06-2024 Glucose [Mass/Vol] Capillary blood gluc ose measurement by glucometer (mass/volume) [facility] Comment on above: Random Glucose Refer ence Range is dependent on time and content of last meal. Glucose of more than 200 mg/dL in a nonstressed, ambulatory subject supports the diagnosis of Diabetes Mellitus. Glucose Glucometer (BldC) [M ass/Vol]Ordered By: Matheus Robison on 10-06-2024 Glucose [Mass/Vol] Capillary blood gluc ose measurement by glucometer (mass/volume) [facility] Comment on above: Random Glucose Refer ence Range is dependent on time and content of last meal. Glucose of more than 200 mg/dL in a nonstressed, ambulatory subject supports the diagnosis of Diabetes Mellitus. Glucose Poct Glucometerson 0 10-06-2024 Glucose [Mass/Vol] 231 mg/dL Normal [facility] Comment on above: Result Comment: [place] Glucose Reference Range is dependent on time and content of last meal. Glucose of more than 200 mg/dL in a nonstressed, ambulatory subject supports the diagnosis of Diabetes Mellitus. PERFORMED BY: [place] [address] PATHOLOGIST INFECTION CONTROL SPECIALIST SONJA FALLON M.D. Performed By: #### C BC, MG, CMP, PHOS #### [address] Glucose [Mass/Vol] 223 mg/dL Normal [facility] Comment on above: Result Comment: [place] om Glucose Reference Range is dependent on time and content of last meal. Glucose of more than 200 mg/dL in a nonstressed, ambulatory subject supports the diagnosis of Diabetes Mellitus. PERFORMED BY: [place] [address] PATHOLOGIST INFECTION CONTROL SPECIALIST SONJA FALLON M.D. Performed By: #### C BC, MG, CMP, PHOS #### [address] Glucose [Mass/Vol] 225 mg/dL Normal [facility] Comment on above: Result Comment: [place] om Glucose Reference Range is dependent on time and content of last meal. Glucose of more than 200 mg/dL in a nonstressed, ambulatory subject supports the diagnosis of Diabetes Mellitus. PERFORMED BY: [place] [address] PATHOLOGIST INFECTION CONTROL SPECIALIST SONJA FALLON M.D. Performed By: #### P HOS, MG, [id number], URIC #### [address] Commemt1 Glu2: Cleaned Meter Normal [facility] Comment on above: Result Comment: PERF ORMED BY: [place] [address] PATHOLOGIST INFECTION CONTROL SPECIALIST SONJA FALLON M.D. Performed By: #### C BC, MG, CMP, PHOS #### [address] Glucose [Mass/Vol] 192 mg/dL Normal [facility] Comment on above: Result Comment: [place] om Glucose Reference Range is dependent on time and content of last meal. Glucose of more than 200 mg/dL in a nonstressed, ambulatory subject supports the diagnosis of Diabetes Mellitus. Performed By: #### C BC, MG, CMP, PHOS #### [place] [address] [place] Glucose [Mass/Vol] 89 mg/dL Normal [facility] Comment on above: Result Comment: [place] om Glucose Reference Range is dependent on time and content of last meal. Glucose of more than 200 mg/dL in a nonstressed, ambulatory subject supports the diagnosis of Diabetes Mellitus. PERFORMED BY: [facility] [address] [place] [address] PATHOLOGIST INFECTION CONTROL SPECIALIST SONJA FALLON M.D. Performed By: #### C BC, MG, CMP, PHOS #### [address] Glucose [Mass/volume] in Ser um or PlasmaOrdered By: Nellie Wynne on 10-06-2024 Glucose [Mass/Vol] Glucose [Mass/volume ] in Serum or Plasma Invalid Interpretation Code 70-100 [facility] Comment on above: Delta: 79 on [id number] recommended reference rangeRandom Glucose Reference Range is dependent on time and content of last meal. Glucose of more than 200 mg/dL in a nonstressed, ambulatory subject supports the diagnosis of Diabetes Mellitus. Glucose [Mass/volume] in Ser um or PlasmaOrdered By: Matheus Robison on 10-06-2024 Glucose [Mass/Vol] Glucose [Mass/volume ] in Serum or Plasma 70-100 [facility] Comment on above: ADA recommended refe rence rangeRandom Glucose Reference Range is dependent on time and content of last meal. Glucose of more than 200 mg/dL in a nonstressed, ambulatory subject supports the diagnosis of Diabetes Mellitus. Glucose [Mass/volume] in Uri ne by Test stripOrdered By: Nellie Wynne on 10-06-2024 Glucose Test strip (U) [Mass/Vol] Glucose [Mass/volume] in Urine by Test strip Normal [facility] Hematocrit Auto (Bld) [Volum e fraction]Ordered By: ANTWON SALAZAR on 10-06-2024 Hematocrit (Bld) [Volume fraction] Hematocrit [Volume Fraction] of Blood by Automated count Low 38.8-50.0 [facility] Hematocrit Auto (Bld) [Volum e fraction]Ordered By: Matheus Robison on 10-06-2024 Hematocrit (Bld) [Volume fraction] Hematocrit [Volume Fraction] of Blood by Automated count Low 38.8-50.0 [facility] Hemoglobin Test strip Ql (U) Ordered By: Nellie Wynne on 10-06-2024 Hemoglobin Ql (U) Hemoglobin [Presence ] in Urine by Test strip Negative [facility] Hemoglobin [Mass/volume] in BloodOrdered By: ANTWON SALAZAR on 10-06-2024 Hemoglobin (Bld) [Mass/Vol] Hemoglobin [Mass/volume] in Blood Low 13.0-17.0 [facility] Hemoglobin [Mass/volume] in BloodOrdered By: Matheus Robison on 10-06-2024 Hemoglobin (Bld) [Mass/Vol] Hemoglobin [Mass/volume] in Blood Low 13.0-17.0 [facility] Hyaline casts [#/area] in Ur ine sediment by Automated countOrdered By: Nellie Wynne on 10-06-2024 Hyaline casts Auto (Urine sed) [#/Area] Hyaline casts [#/area] in Urine sediment by Automated count 0-8 [facility] Ketones Test strip Ql (U)Ord ered By: Nellie Wynne on 10-06-2024 Ketones Ql (U) Ketones [Presence] i n Urine by Test strip Negative [facility] Leukocyte clumps [Presence] in Urine by AutomatedOrdered By: Nellie Wynne on 10-06-2024 Leukocyte clumps Auto Ql (U) Leukocyte clumps [Presence] in Urine by Automated High None Seen [facility] Leukocyte esterase [Presence ] in Urine by Test stripOrdered By: Nellie Wynne on 10-06-2024 Leukocyte esterase Test strip Ql (U) Leukocyte esterase [Presence] in Urine by Test strip High Negative [facility] Leukocytes [#/area] in Urine sediment by Automated countOrdered By: Nellie Wynne on 10-06-2024 WBC Auto (Urine sed) [#/Area] Leukocytes [#/area] in Urine sediment by Automated count High 0-4 [facility] Leukocytes [#/volume] correc ruben for nucleated erythrocytes in Blood by Automated counOrdered By: ANTWON SALAZAR on 10-06-2024 WBC corrected for nucl RBC Auto (Bld) [#/Vol] Leukocytes [#/volume] corrected for nucleated erythrocytes in Blood by Automated coun 4.1-10.5 [facility] Leukocytes [#/volume] correc ruben for nucleated erythrocytes in Blood by Automated counOrdered By: Matheus Robison on 10-06-2024 WBC corrected for nucl RBC Auto (Bld) [#/Vol] Leukocytes [#/volume] corrected for nucleated erythrocytes in Blood by Automated coun 4.1-10.5 [facility] Lymphocytes Auto (Bld) [#/Vo l]Ordered By: PROVIDER TEMP on 10-06-2024 Lymphocytes (Bld) [#/Vol] Lymphocytes [#/volume] in Blood by Automated count 1.00-4.8 [facility] Lymphocytes Auto (Bld) [#/Vo l]Ordered By: Matheus Robison on 10-06-2024 Lymphocytes (Bld) [#/Vol] Lymphocytes [#/volume] in Blood by Automated count 1.00-4.8 [facility] Lymphocytes/100 WBC Auto (Bl d)Ordered By: PROVIDER TEMP on 10-06-2024 Lymphocytes/100 WBC (Bld) Lymphocytes/100 leukocytes in Blood by Automated count . [facility] Lymphocytes/100 WBC Auto (Bl d)Ordered By: Matheus Robison on 10-06-2024 Lymphocytes/100 WBC (Bld) Lymphocytes/100 leukocytes in Blood by Automated count . [facility] MCH Auto (RBC) [Entitic mass ]Ordered By: PROVIDER TEMP on 10-06-2024 MCH (RBC) [Entitic mass] MCH [Entitic mass] by Automated count Low 27.5-35.2 [facility] MCH Auto (RBC) [Entitic mass ]Ordered By: Matheus Robison on 10-06-2024 MCH (RBC) [Entitic mass] MCH [Entitic mass] by Automated count Low 27.5-35.2 [facility] MCHC Auto (RBC) [Mass/Vol]Or dered By: PROVIDER TEMP on 10-06-2024 MCHC (RBC) [Mass/Vol] MCHC [Mass/volume] by Automated count 32.5-35.6 [facility] MCHC Auto (RBC) [Mass/Vol]Or dered By: Matheus Robison on 10-06-2024 MCHC (RBC) [Mass/Vol] MCHC [Mass/volume] by Automated count Low 32.5-35.6 [facility] MCV Auto (RBC) [Entitic vol] Ordered By: PROVIDER [place]P on 10-06-2024 MCV (RBC) [Entitic vol] MCV [Entitic vol ume] by Automated count Low 83.5-101 [facility] MCV Auto (RBC) [Entitic vol] Ordered By: Matheus Robison on 10-06-2024 MCV (RBC) [Entitic vol] MCV [Entitic vol ume] by Automated count 83.5-101 [facility] Monocyte distribution width [Entitic volume] in Blood by AutomatedOrdered By: PROVIDER [place] on 10-06-2024 Monocyte distribution width Auto (Bld) [Entitic vol] Monocyte distribution width [Entitic volume] in Blood by Automated 0.00-20.00 [facility] Monocytes Auto (Bld) [#/Vol] Ordered By: PROVIDER [place] on 10-06-2024 Monocytes (Bld) [#/Vol] Automated blood monocyte count 0.0-0.8 [facility] Monocytes Auto (Bld) [#/Vol] Ordered By: Matheus Robison on 10-06-2024 Monocytes (Bld) [#/Vol] Automated blood monocyte count High 0.0-0.8 [facility] Monocytes/100 WBC Auto (Bld) Ordered By: ANTWON TEMP on 10-06-2024 Monocytes/100 WBC (Bld) Automated monocyte % . [facility] Monocytes/100 WBC Auto (Bld) Ordered By: Matheus Robison on 10-06-2024 Monocytes/100 WBC (Bld) Automated monocyte % . [facility] Mucus [Presence] in Urine by AutomatedOrdered By: Nellie Wynne on 10-06-2024 Mucus Auto Ql (U) Mucus [Presence] in Urine by Automated [facility] Neutrophils Auto (Bld) [#/Vo l]Ordered By: PROVIDER [place] on 10-06-2024 Neutrophils (Bld) [#/Vol] Neutrophils [#/volume] in Blood by Automated count 1.8-7.7 [facility] Neutrophils Auto (Bld) [#/Vo l]Ordered By: Matheus Robison on 10-06-2024 Neutrophils (Bld) [#/Vol] Neutrophils [#/volume] in Blood by Automated count 1.8-7.7 [facility] Neutrophils/100 WBC Auto (Bl d)Ordered By: PROVIDER [place]P on 10-06-2024 Neutrophils/100 WBC (Bld) Automated neutrophil % . [facility] Neutrophils/100 WBC Auto (Bl d)Ordered By: Matheus Robison on 10-06-2024 Neutrophils/100 WBC (Bld) Automated neutrophil % . [facility] Nitrite Test strip Ql (U)Ord ered By: Nellie Wynne on 10-06-2024 Nitrite Ql (U) Nitrite [Presence] i n Urine by Test strip Negative [facility] No Panel InformationOrdered By: Nellie Wynne on 10-06-2024 Estimated GFR (CKD-EPI) 19.198 mL/Min [facility] Creatinine Clearance (Chem 18.85 [facility] No Panel InformationOrdered By: Matheus Robison on 10-06-2024 Bedside Glucose Comment Glu2: cleaned meter [facility] Estimated GFR (CKD-EPI) 21.133 mL/Min [facility] Creatinine Clearance (Chem 19.49 [facility] Nucleated erythrocytes [Pres ence] in Blood by Automated countOrdered By: ANTWON WARDP on 10-06-2024 Nucleated RBC Auto Ql (Bld) Nucleated erythrocytes [Presence] in Blood by Automated count 0-0.5 [facility] Nucleated erythrocytes [Pres ence] in Blood by Automated countOrdered By: Matheus Robison on 10-06-2024 Nucleated RBC Auto Ql (Bld) Nucleated erythrocytes [Presence] in Blood by Automated count 0-0.5 [facility] Platelet mean volume Auto (B ld) [Entitic vol]Ordered By: ANTWON SALAZAR on 10-06-2024 Platelet mean volume (Bld) [Entitic vol] Platelet mean volume [Entitic volume] in Blood by Automated count 6.6-10.1 [facility] Platelet mean volume Auto (B ld) [Entitic vol]Ordered By: Matheus Robison on 10-06-2024 Platelet mean volume (Bld) [Entitic vol] Platelet mean volume [Entitic volume] in Blood by Automated count 6.6-10.1 [facility] Platelets Auto (Bld) [#/Vol] Ordered By: ANTWON SALAZAR on 10-06-2024 Platelets (Bld) [#/Vol] Platelets [#/vol ume] in Blood by Automated count 150-450 [facility] Platelets Auto (Bld) [#/Vol] Ordered By: Matheus Robison on 10-06-2024 Platelets (Bld) [#/Vol] Platelets [#/vol ume] in Blood by Automated count 150-450 [facility] Potassium [Moles/volume] in Serum or PlasmaOrdered By: Nellie Wynne on 10-06-2024 Potassium [Moles/Vol] Potassium [Moles/v olume] in Serum or Plasma High 3.5-5.1 [facility] Potassium [Moles/volume] in Serum or PlasmaOrdered By: Matheus Robison on 10-06-2024 Potassium [Moles/Vol] Potassium [Moles/v olume] in Serum or Plasma 3.5-5.1 [facility] Protein Test strip (U) [Mass /Vol]Ordered By: Nellie Wynne on 10-06-2024 Protein (U) [Mass/Vol] Protein [Mass/vol ume] in Urine by Test strip High Negative [facility] Protein [Mass/volume] in Ser um or PlasmaOrdered By: Nellie Wynne on 10-06-2024 Protein [Mass/Vol] Protein [Mass/volume ] in Serum or Plasma 6.4-8.9 [facility] Protein [Mass/volume] in Ser um or PlasmaOrdered By: Matheus Robison on 10-06-2024 Protein [Mass/Vol] Protein [Mass/volume ] in Serum or Plasma Low 6.4-8.9 [facility] RBC Auto (Bld) [#/Vol]Ordere d By: ANTWON SALAZAR on 10-06-2024 RBC (Bld) [#/Vol] Erythrocytes [#/volu me] in Blood by Automated count 3.90-5.60 [facility] RBC Auto (Bld) [#/Vol]Ordere d By: Matheus Robison on 10-06-2024 RBC (Bld) [#/Vol] Erythrocytes [#/volu me] in Blood by Automated count 3.90-5.60 [facility] Serum or plasma albumin/glob ulin mass ratioOrdered By: Nellie Wynne on 10-06-2024 Albumin/Globulin [Mass ratio] Serum or plasma albumin/globulin mass ratio [facility] Serum or plasma albumin/glob ulin mass ratioOrdered By: Matheus Robison on 10-06-2024 Albumin/Globulin [Mass ratio] Serum or plasma albumin/globulin mass ratio [facility] Serum or plasma anion gap de terminationOrdered By: Nellie Wynne on 10-06-2024 Anion gap [Moles/Vol] Serum or plasma an ion gap determination 6.0-15.0 [facility] Serum or plasma anion gap de terminationOrdered By: Matheus Robison on 10-06-2024 Anion gap [Moles/Vol] Serum or plasma an ion gap determination 6.0-15.0 [facility] Sodium [Moles/volume] in Ser um or PlasmaOrdered By: Nellie Wynne on 10-06-2024 Sodium [Moles/Vol] Sodium [Moles/volume ] in Serum or Plasma Low 136-145 [facility] Sodium [Moles/volume] in Ser um or PlasmaOrdered By: Matheus Robison on 10-06-2024 Sodium [Moles/Vol] Sodium [Moles/volume ] in Serum or Plasma 136-145 [facility] Specific gravity Test strip (U) [Rel density]Ordered By: Nellie Wynne on 10-06-2024 Specific gravity (U) [Rel density] Specific gravity of Urine by Test strip 1.001-1.03 0 [facility] Troponin I High Sensitivityo n 10-06-2024 Troponin I High Sensitivity 14.0 pg/mL Normal 0.0-20.0 [facility] Comment on above: Result Comment: PERF ORMED BY: [place] [address] PATHOLOGIST INFECTION CONTROL SPECIALIST SONJA FALLON M.D. Performed By: #### P HOS, MG, [id number], URIC #### [address] Troponin I.cardiac [Mass/vol ume] in Serum or Plasma by Detection limit <= 0.01 ng/Ordered By: Nellie Wynne on 10-06-2024 Troponin I.cardiac DL <= 0.01 ng/mL [Mass/Vol] Troponin I.cardiac [Mass/volume] in Serum or Plasma by Detection limit <= 0.01 ng/ 0.0-20.0 [facility] Urea nitrogen [Mass/volume] in Serum or PlasmaOrdered By: Nellie Wynne on 10-06-2024 Urea nitrogen [Mass/Vol] Urea nitrogen [Mass/volume] in Serum or Plasma [address] [facility] Urea nitrogen [Mass/volume] in Serum or PlasmaOrdered By: Matheus Robison on 10-06-2024 Urea nitrogen [Mass/Vol] Urea nitrogen [Mass/volume] in Serum or Plasma [facility] 725 [facility] Urine Cultureon 10-06-2024 Bacteria identified Cx Nom (U) <9,000 colonies/ml mixed bacterial skin contaminants 2 Days PERFORMED BY: [place] [address] PATHOLOGIST INFECTION CONTROL SPECIALIST SONJA FALLON M.D. Normal [facility] Comment on above: Performed By: #### P HOS, MG, [id number], URIC #### [address] Urine cultureOrdered By: Treasure Wynne on 10-06-2024 Bacteria identified Cx Nom (U) Urine culture [facility] Urobilinogen Test strip (U) [Mass/Vol]Ordered By: Nellie Wynne on 10-06-2024 Urobilinogen (U) [Mass/Vol] Urobilinogen [Mass/volume] in Urine by Test strip Normal [facility] WBC Auto (Bld) [#/Vol]Ordere d By: ANTWON SALAZAR on 10-06-2024 WBC (Bld) [#/Vol] Leukocytes [#/volume ] in Blood by Automated count 4.1-10.5 [facility] WBC Auto (Bld) [#/Vol]Ordere d By: Matheus Robison on 10-06-2024 WBC (Bld) [#/Vol] Leukocytes [#/volume ] in Blood by Automated count 4.1-10.5 [facility] pH Test strip (U)Ordered By: Nellie Wynne on 10-06-2024 pH (U) pH of Urine by Test strip 5.0-9.0 [facility] Complete Blood Count Auto Di ffon 10-05-2024 Basophils (Bld) [#/Vol] 0.0 10*3/uL Normal 0.0-0.2 [facility] Comment on above: Result Comment: PERF ORMED BY: [place] [address] PATHOLOGIST INFECTION CONTROL SPECIALIST SONJA FALLON M.D. Performed By: #### C BC, MG, CMP, PHOS #### [address] Basophils/100 WBC (Bld) 0.5 % Normal . T [facility] Comment on above: Performed By: #### C BC, MG, CMP, PHOS #### [address] Eosinophils (Bld) [#/Vol] 0.3 10*3/uL Normal 0.0-0.45 [facility] Comment on above: Performed By: #### C BC, MG, CMP, PHOS #### [address] Eosinophils/100 WBC (Bld) 3.6 % Normal . [facility] Comment on above: Performed By: #### C BC, MG, CMP, PHOS #### [address] Erythrocyte distribution width (RBC) [Ratio] 13.8 % Normal 12.0-14.8 [facility] Comment on above: Performed By: #### C BC, MG, CMP, PHOS #### [address] Hematocrit (Bld) [Volume fraction] 33.5 % Low 38.8-50.0 [facility] Comment on above: Performed By: #### C BC, MG, CMP, PHOS #### [address] Hemoglobin (Bld) [Mass/Vol] 11.0 g/dL Low 13.0-17.0 [facility] Comment on above: Performed By: #### C BC, MG, CMP, PHOS #### [place] [address] [place] Lymphocytes (Bld) [#/Vol] 2.3 10*3/uL Normal 1.00-4.8 [facility] Comment on above: Performed By: #### C BC, MG, CMP, PHOS #### [address] Lymphocytes/100 WBC (Bld) 27.9 % Normal . [facility] Comment on above: Performed By: #### C BC, MG, CMP, PHOS #### [address] MCH (RBC) [Entitic mass] 27.6 pg Normal 27.5-35.2 [facility] Comment on above: Performed By: #### C BC, MG, CMP, PHOS #### [address] MCV (RBC) [Entitic vol] 83.9 fL Normal 83.5-101 [facility] Comment on above: Performed By: #### C BC, MG, CMP, PHOS #### [address] Mean Corpuscular HGB Conc 32.8 g/dL Normal 32.5-35.6 [facility] Comment on above: Performed By: #### C BC, MG, CMP, PHOS #### [address] Monocytes (Bld) [#/Vol] 1.1 10*3/uL High 0.0-0.8 [facility] Comment on above: Performed By: #### C BC, MG, CMP, PHOS #### [address] Monocytes/100 WBC (Bld) 13.5 % Normal . [facility] Comment on above: Performed By: #### C BC, MG, CMP, PHOS #### [address] Neutrophils (Bld) [#/Vol] 4.5 10*3/uL Normal 1.8-7.7 [facility] Comment on above: Performed By: #### C BC, MG, CMP, PHOS #### [address] Neutrophils/100 WBC (Bld) 54.5 % Normal . [facility] Comment on above: Performed By: #### C BC, MG, CMP, PHOS #### [address] NRBC% 0.1 /100{WBC} Normal 0-0.5 [facility] Comment on above: Performed By: #### C BC, MG, CMP, PHOS #### [address] Platelet mean volume (Bld) [Entitic vol] 8.1 fL Normal 6.6-10.1 [facility] Comment on above: Performed By: #### C BC, MG, CMP, PHOS #### [address] Platelets (Bld) [#/Vol] 185 10*3/uL Normal 150-450 [facility] Comment on above: Performed By: #### C BC, MG, CMP, PHOS #### [address] RBC (Bld) [#/Vol] 3.99 10*6/uL Normal 3.90-5.60 [facility] Comment on above: Performed By: #### C BC, MG, CMP, PHOS #### [address] WBC (Bld) [#/Vol] 8.2 10*3/uL Normal 4.1-10.5 [facility] Comment on above: Performed By: #### C BC, MG, CMP, PHOS #### [address] Comprehensive Metabolic Pane jered 10-05-2024 Albumin [Mass/Vol] 3.5 g/dL Normal 3.5-5.7 [facility] Comment on above: Performed By: #### C BC, MG, CMP, PHOS #### [address] Albumin/Globulin [Mass ratio] 1.3 {ratio} Normal [facility] Comment on above: Performed By: #### C BC, MG, CMP, PHOS #### [address] ALP [Catalytic activity/Vol] 89 U/L Normal 34-104 [facility] Comment on above: Performed By: #### C BC, MG, CMP, PHOS #### [address] ALT [Catalytic activity/Vol] 18 U/L Normal 7-52 [facility] Comment on above: Performed By: #### C BC, MG, CMP, PHOS #### [address] Anion gap [Moles/Vol] 10.4 mmol/L Normal 6.0-15.0 [facility] Comment on above: Performed By: #### C BC, MG, CMP, PHOS #### [address] AST [Catalytic activity/Vol] 16 U/L Normal 13-39 [facility] Comment on above: Performed By: #### C BC, MG, CMP, PHOS #### [address] Bilirubin [Mass/Vol] 0.3 mg/dL Normal 0.3-1.0 [facility] Comment on above: Performed By: #### C BC, MG, CMP, PHOS #### [address] Calcium [Mass/Vol] 8.8 mg/dL Normal 8.6-10.3 [facility] Comment on above: Performed By: #### C BC, MG, CMP, PHOS #### [address] Chloride [Moles/Vol] 111 mmol/L High 98-107 [facility] Comment on above: Performed By: #### C BC, MG, CMP, PHOS #### [facility] [address] CO2 [Moles/Vol] 21.9 mmol/L Normal 21.0-31.0 [facility] Comment on above: Performed By: #### C BC, MG, CMP, PHOS #### [address] Creatinine [Mass/Vol] 2.63 mg/dL High 0.70-1.30 [facility] Comment on above: Performed By: #### C BC, MG, CMP, PHOS #### [address] Creatinine Clr Calc Pharmacy 24.40 Normal [facility] Comment on above: Performed By: #### C BC, MG, CMP, PHOS #### [address] Estimated GFR 24.749 mL/Min Normal [facility] Comment on above: Performed By: #### C BC, MG, CMP, PHOS #### [address] Globulin (S) [Mass/Vol] 2.6 g/dL Normal T [facility] Comment on above: Performed By: #### C BC, MG, CMP, PHOS #### [address] Glucose [Mass/Vol] 160 mg/dL Significant change up 70-100 [facility] Comment on above: Result Comment: [place] Glucose Reference Range is dependent on time and content of last meal. Glucose of more than 200 mg/dL in a nonstressed, ambulatory subject supports the diagnosis of Diabetes Mellitus. ADA recommended reference range Performed By: #### C BC, MG, CMP, PHOS #### [address] Potassium [Moles/Vol] 5.3 mmol/L High 3.5-5.1 [facility] Comment on above: Performed By: #### C BC, MG, CMP, PHOS #### [place] [address] Protein [Mass/Vol] 6.1 g/dL Low 6.4-8.9 [facility] Comment on above: Performed By: #### C BC, MG, CMP, PHOS #### [facility] [address] [place] [id number] [facility] Sodium [Moles/Vol] 138 mmol/L Normal 136-145 [facility] Comment on above: Performed By: #### C BC, MG, CMP, PHOS #### [facility] [address] Urea nitrogen [Mass/Vol] 40 mg/dL High 7-25 [facility] Comment on above: Performed By: #### C BC, MG, CMP, PHOS #### [place] [id number] [facility] ECG 12 lead ECGon 10-05-2024 ECG 12 lead ECG [facility] [place] [address] [place] [address] Electrocardiograph Report Signed Patient: Gage Lugo MR#: [id number] : 1950 Acct:[id number] Age/Sex: 74 / M ADM Date: 10/04/24 Loc: Room: [address] [place] [address] Type: ADM IN Attending Dr: Matheus Robison MD Ordering Provider: Mathesu Robison MD Date of Service: 10/05/24 ECG/ECG 12 lead ECG: Recheck/Abnormal Lab/Rx Copies to: Test Reason : Blood Pressure : */* mmHG Vent. Rate : 81 BPM Atrial Rate : 81 BPM P-R Int : 162 ms QRS Dur : 90 ms QT Int : 362 ms P-R-T Axes : 4 -3 82 degrees QTcB Int : 420 ms Normal sinus rhythm T wave abnormality, consider lateral ischemia Abnormal ECG When compared with ECG of 04-Oct-2024 17:16, Questionable change in QRS axis Non-specific change in ST segment in Inferior leads T wave inversion no longer evident in Inferior leads Confirmed by Ernie Allison ([id number]) on 10/05/2024 9:54:37 AM Referred By: Electronically Signed By: Ernie Allison Transcribed By: MUS Signed By Ernie Allison MD 10/05/24 0954 Normal [facility] Glucose Poct Glucometerson 1 Glucose [Mass/Vol] 171 mg/dL Normal [facility] Comment on above: Result Comment: [place] om Glucose Reference Range is dependent on time and content of last meal. Glucose of more than 200 mg/dL in a nonstressed, ambulatory subject supports the diagnosis of Diabetes Mellitus. PERFORMED BY: [place] [address] PATHOLOGIST INFECTION CONTROL SPECIALIST SONJA FALLON M.D. Performed By: #### C BC, MG, CMP, PHOS #### [address] Glucose [Mass/Vol] 244 mg/dL Normal [facility] Comment on above: Result Comment: [place] Glucose Reference Range is dependent on time and content of last meal. Glucose of more than 200 mg/dL in a nonstressed, ambulatory subject supports the diagnosis of Diabetes Mellitus. PERFORMED BY: [place] [address] PATHOLOGIST INFECTION CONTROL SPECIALIST SONJA FALLON M.D. Performed By: #### C BC, MG, CMP, PHOS #### [address] Glucose [Mass/Vol] 146 mg/dL Normal [facility] Comment on above: Result Comment: [place] om Glucose Reference Range is dependent on time and content of last meal. Glucose of more than 200 mg/dL in a nonstressed, ambulatory subject supports the diagnosis of Diabetes Mellitus. PERFORMED BY: [place] [address] PATHOLOGIST INFECTION CONTROL SPECIALIST SONJA FALLON M.D. Performed By: #### C BC, MG, CMP, PHOS #### [address] Magnesiumon 10-05-2024 Magnesium [Mass/Vol] 1.7 mg/dL Low 1.9-2.7 [facility] Comment on above: Result Comment: PERF ORMED BY: [facility] [address] [facility] [place] [address] PATHOLOGIST INFECTION CONTROL SPECIALIST SONJA FALLON M.D. Performed By: #### C BC, MG, CMP, PHOS #### [facility] [address] Magnesium [Mass/volume] in S antolin or PlasmaOrdered By: Matheus Robison on 10-05-2024 Magnesium [Mass/Vol] Magnesium [Mass/vol ume] in Serum or Plasma Low 1.9-2.7 [facility] Phosphate [Mass/volume] in S antolin or PlasmaOrdered By: Matheus Robison on 10-05-2024 Phosphate [Mass/Vol] Phosphate [Mass/vol ume] in Serum or Plasma 2.5-4.5 [facility] Phosphoruson 10-05-2024 Phosphate [Mass/Vol] 3.9 mg/dL Normal 2.5-4.5 [facility] Comment on above: Performed By: #### C BC, MG, CMP, PHOS #### [facility] [address] Alanine aminotransferase [En zymatic activity/volume] in Serum or PlasmaOrdered By: Lolita Adorno on 10-04-2024 ALT [Catalytic activity/Vol] Alanine aminotransferase [Enzymatic activity/volume] in Serum or Plasma 7-52 [facility] Albumin [Mass/volume] in Ser um or Plasma by Bromocresol green (BCG) dye binding methoOrdered By: Lolita Adorno on 10-04-2024 Albumin BCG dye [Mass/Vol] Albumin [Mass/volume] in Serum or Plasma by Bromocresol green (BCG) dye binding metho 3.5-5.7 [facility] Alkaline phosphatase [Enzyma tic activity/volume] in Serum or PlasmaOrdered By: Lolita Adorno on 10-04-2024 ALP [Catalytic activity/Vol] Alkaline phosphatase [Enzymatic activity/volume] in Serum or Plasma 34-104 [facility] Appearance of UrineOrdered B y: Ernie Vargas on 10-04-2024 Appearance (U) Urine appearance Abnormal Clear [facility] Aspartate aminotransferase [ Enzymatic activity/volume] in Serum or PlasmaOrdered By: Lolita Adorno on 10-04-2024 AST [Catalytic activity/Vol] Aspartate aminotransferase [Enzymatic activity/volume] in Serum or Plasma 13-39 [facility] Bacteria [Presence] in Urine by AutomatedOrdered By: Ernie Vargas on 10-04-2024 Bacteria Auto Ql (U) Bacteria [Presence] in Urine by Automated None Seen [facility] Bilirubin Test strip Ql (U)O rdered By: Ernie Vargas on 10-04-2024 Bilirubin Ql (U) Bilirubin.total [Presence] in Urine by Test strip Negative [facility] Bilirubin.total [Mass/volume ] in Serum or PlasmaOrdered By: Lolita Adorno on 10-04-2024 Bilirubin [Mass/Vol] Bilirubin.total [Mass/volume] in Serum or Plasma 0.3-1.0 [facility] Calcium [Mass/volume] in Ser um or PlasmaOrdered By: Lolita Adorno on 10-04-2024 Calcium [Mass/Vol] Calcium [Mass/volume ] in Serum or Plasma 8.6-10.3 [facility] Carbon dioxide, total [Moles /volume] in Serum or PlasmaOrdered By: Lolita Adorno on 10-04-2024 CO2 [Moles/Vol] Carbon dioxide, tota l [Moles/volume] in Serum or Plasma 21.0-31.0 [facility] Chloride [Moles/volume] in S antolin or PlasmaOrdered By: Lolita Adorno on 10-04-2024 Chloride [Moles/Vol] Chloride [Moles/vol ume] in Serum or Plasma High 98-107 [facility] Color Auto (U)Ordered By: Celso Vargas on 10-04-2024 Color (U) Color of Urine by Auto Yellow Fi [facility] Complete Blood Count Auto Di ffon 10-04-2024 Basophils (Bld) [#/Vol] 0.1 10*3/uL Normal 0.0-0.2 [facility] Comment on above: Result Comment: PERF ORMED BY: [place] [address] PATHOLOGIST INFECTION CONTROL SPECIALIST SONJA FALLON M.D. Performed By: #### C BC, MG, CMP, PHOS #### [address] Basophils/100 WBC (Bld) 0.8 % Normal . T juli [facility] Comment on above: Performed By: #### C BC, MG, CMP, PHOS #### [address] Eosinophils (Bld) [#/Vol] 0.3 10*3/uL Normal 0.0-0.45 [facility] Comment on above: Performed By: #### C BC, MG, CMP, PHOS #### [address] Eosinophils/100 WBC (Bld) 3.6 % Normal . [facility] Comment on above: Performed By: #### C BC, MG, CMP, PHOS #### [address] Erythrocyte distribution width (RBC) [Ratio] 13.9 % Normal 12.0-14.8 [facility] Comment on above: Performed By: #### C BC, MG, CMP, PHOS #### [address] Hematocrit (Bld) [Volume fraction] 34.9 % Low 38.8-50.0 [facility] Comment on above: Performed By: #### C BC, MG, CMP, PHOS #### [address] Hemoglobin (Bld) [Mass/Vol] 11.2 g/dL Low 13.0-17.0 [facility] Comment on above: Performed By: #### C BC, MG, CMP, PHOS #### [address] Lymphocytes (Bld) [#/Vol] 1.8 10*3/uL Normal 1.00-4.8 [facility] Comment on above: Performed By: #### C BC, MG, CMP, PHOS #### [address] Lymphocytes/100 WBC (Bld) 22.2 % Normal . [facility] Comment on above: Performed By: #### C BC, MG, CMP, PHOS #### [address] MCH (RBC) [Entitic mass] 27.1 pg Low 27.5-35.2 [facility] Comment on above: Performed By: #### C BC, MG, CMP, PHOS #### [address] MCV (RBC) [Entitic vol] 84.6 fL Normal 83.5-101 T [facility] Comment on above: Performed By: #### C BC, MG, CMP, PHOS #### [address] Mean Corpuscular HGB Conc 32.1 g/dL Low 32.5-35.6 [facility] Comment on above: Performed By: #### C BC, MG, CMP, PHOS #### [address] Monocytes (Bld) [#/Vol] 0.8 10*3/uL Normal 0.0-0.8 [facility] Comment on above: Performed By: #### C BC, MG, CMP, PHOS #### [address] Monocytes/100 WBC (Bld) 16.61 % Normal 0.00-20.00 [facility] Comment on above: Performed By: #### C BC, MG, CMP, PHOS #### [address] Monocytes/100 WBC (Bld) 10.1 % Normal . [facility] Comment on above: Performed By: #### C BC, MG, CMP, PHOS #### [address] Neutrophils (Bld) [#/Vol] 5.1 10*3/uL Normal 1.8-7.7 [facility] Comment on above: Performed By: #### C BC, MG, CMP, PHOS #### [address] Neutrophils/100 WBC (Bld) 63.3 % Normal . [facility] Comment on above: Performed By: #### C BC, MG, CMP, PHOS #### [address] NRBC% 0.1 /100{WBC} Normal 0-0.5 [facility] Comment on above: Performed By: #### C BC, MG, CMP, PHOS #### [address] Platelet mean volume (Bld) [Entitic vol] 8.0 fL Normal 6.6-10.1 [facility] Comment on above: Performed By: #### C BC, MG, CMP, PHOS #### [place] [address] [place] Platelets (Bld) [#/Vol] 197 10*3/uL Normal 150-450 [facility] Comment on above: Performed By: #### C BC, MG, CMP, PHOS #### [address] RBC (Bld) [#/Vol] 4.13 10*6/uL Normal 3.90-5.60 [facility] Comment on above: Performed By: #### C BC, MG, CMP, PHOS #### [place] [address] [place] WBC (Bld) [#/Vol] 8.1 10*3/uL Normal 4.1-10.5 [facility] Comment on above: Performed By: #### C BC, MG, CMP, PHOS #### [address] Comprehensive Metabolic Pane jered 10-04-2024 Albumin [Mass/Vol] 4.0 g/dL Normal 3.5-5.7 [facility] Comment on above: Performed By: #### C BC, MG, CMP, PHOS #### [address] Albumin/Globulin [Mass ratio] 1.5 {ratio} Normal [facility] Comment on above: Performed By: #### C BC, MG, CMP, PHOS #### [address] ALP [Catalytic activity/Vol] 98 U/L Normal 34-104 [facility] Comment on above: Performed By: #### C BC, MG, CMP, PHOS #### [address] ALT [Catalytic activity/Vol] 19 U/L Normal 7-52 [facility] Comment on above: Performed By: #### C BC, MG, CMP, PHOS #### [address] Anion gap [Moles/Vol] 13.4 mmol/L Normal 6.0-15.[address] [facility] Comment on above: Performed By: #### C BC, MG, CMP, PHOS #### [address] AST [Catalytic activity/Vol] 16 U/L Normal 13-39 [facility] Comment on above: Performed By: #### C BC, MG, CMP, PHOS #### [place] [address] [place] Bilirubin [Mass/Vol] 0.4 mg/dL Normal 0.3-1.0 [facility] Comment on above: Performed By: #### C BC, MG, CMP, PHOS #### [address] Calcium [Mass/Vol] 9.0 mg/dL Normal 8.6-10.3 [facility] Comment on above: Performed By: #### C BC, MG, CMP, PHOS #### [address] Chloride [Moles/Vol] 107 mmol/L Normal 98-107 [facility] Comment on above: Performed By: #### C BC, MG, CMP, PHOS #### [address] CO2 [Moles/Vol] 19.7 mmol/L Low 21.0-31.0 The [facility] Comment on above: Performed By: #### C BC, MG, CMP, PHOS #### [address] Creatinine [Mass/Vol] 2.62 mg/dL High 0.70-1.30 [facility] Comment on above: Performed By: #### C BC, MG, CMP, PHOS #### [address] Creatinine Clr Calc Pharmacy 24.49 Normal [facility] Comment on above: Result Comment: PERF ORMED BY: [place] [address] PATHOLOGIST INFECTION CONTROL SPECIALIST SONJA FALLON M.D. Performed By: #### C BC, MG, CMP, PHOS #### [address] Estimated GFR 24.862 mL/Min Normal [facility] Comment on above: Performed By: #### C BC, MG, CMP, PHOS #### [address] Globulin (S) [Mass/Vol] 2.6 g/dL Normal T he [facility] Comment on above: Performed By: #### C BC, MG, CMP, PHOS #### [address] Glucose [Mass/Vol] 455 mg/dL Significant change up 70-100 [facility] Comment on above: Result Comment: [place] Glucose Reference Range is dependent on time and content of last meal. Glucose of more than 200 mg/dL in a nonstressed, ambulatory subject supports the diagnosis of Diabetes Mellitus. ADA recommended reference range Performed By: #### C BC, MG, CMP, PHOS #### [facility] [address] Potassium [Moles/Vol] 6.1 mmol/L Off scale high 3.5-5.1 [facility] Comment on above: Result Comment: Crit ical Result Called to and read back by: PRECIOUS CH at: 10/04/2024 18:21:29 by:[id number] Performed By: #### C BC, MG, CMP, PHOS #### [facility] [address] Protein [Mass/Vol] 6.6 g/dL Normal 6.4-8.9 [facility] Comment on above: Performed By: #### C BC, MG, CMP, PHOS #### [address] Sodium [Moles/Vol] 134 mmol/L Low 136-145 [facility] Comment on above: Performed By: #### C BC, MG, CMP, PHOS #### [place] [address] [place] Urea nitrogen [Mass/Vol] 39 mg/dL High 7-25 [facility] Comment on above: Performed By: #### C BC, MG, CMP, PHOS #### [address] Albumin [Mass/Vol] 3.9 g/dL Normal 3.5-5.7 [facility] Comment on above: Order Comment: NONFA STING.JKW Performed By: #### C BC, MG, CMP, PHOS #### [facility] [address] [place] [address] [place] Albumin/Globulin [Mass ratio] 1.5 {ratio} Normal [facility] Comment on above: Order Comment: NONFA STING.JKW Performed By: #### C BC, MG, CMP, PHOS #### [place] [address] [place] ALP [Catalytic activity/Vol] 97 U/L Normal 34-104 [facility] Comment on above: Order Comment: NONFA STING.JKW Result Comment: PERF ORMED BY: [place] [address] PATHOLOGIST INFECTION CONTROL SPECIALIST SONJA FALLON M.D. Performed By: #### C BC, MG, CMP, PHOS #### [address] ALT [Catalytic activity/Vol] 20 U/L Normal 7-52 [facility] Comment on above: Order Comment: NONFA STING.JKW Performed By: #### C BC, MG, CMP, PHOS #### [address] Anion gap [Moles/Vol] 10.3 mmol/L Normal 6.0-15.0 Th e [facility] Comment on above: Order Comment: NONFA STING.JKW Performed By: #### C BC, MG, CMP, PHOS #### [address] AST [Catalytic activity/Vol] 15 U/L Normal 13-39 [facility] Comment on above: Order Comment: NONFA STING.JKW Performed By: #### C BC, MG, CMP, PHOS #### [address] Bilirubin [Mass/Vol] 0.5 mg/dL Normal 0.3-1.0 [facility] Comment on above: Order Comment: NONFA STING.JKW Performed By: #### C BC, MG, CMP, PHOS #### [address] Calcium [Mass/Vol] 9.1 mg/dL Normal 8.6-10.3 [facility] Comment on above: Order Comment: NONFA STING.JKW Performed By: #### C BC, MG, CMP, PHOS #### [address] Chloride [Moles/Vol] 110 mmol/L High 98-107 [facility] Comment on above: Order Comment: NONFA STING.JKW Performed By: #### C BC, MG, CMP, PHOS #### [address] CO2 [Moles/Vol] 22.3 mmol/L Normal 21.0-31.0 [facility] Comment on above: Order Comment: NONFA STING.JKW Performed By: #### C BC, MG, CMP, PHOS #### [address] Creatinine [Mass/Vol] 2.62 mg/dL High 0.70-1.30 [facility] Comment on above: Order Comment: NONFA STING.JKW Performed By: #### C BC, MG, CMP, PHOS #### [address] Estimated GFR 24.862 mL/Min Normal [facility] Comment on above: Order Comment: NONFA STING.JKW Performed By: #### C BC, MG, CMP, PHOS #### [address] Globulin (S) [Mass/Vol] 2.6 g/dL Normal T he [facility] Comment on above: Order Comment: NONFA STING.JKW Performed By: #### C BC, MG, CMP, PHOS #### [address] Glucose [Mass/Vol] 327 mg/dL High 70-100 [facility] Comment on above: Order Comment: NONFA STING.JKW Result Comment: [place] Glucose Reference Range is dependent on time and content of last meal. Glucose of more than 200 mg/dL in a nonstressed, ambulatory subject supports the diagnosis of Diabetes Mellitus. ADA recommended reference range Performed By: #### C BC, MG, CMP, PHOS #### [address] Potassium [Moles/Vol] 6.6 mmol/L Off scale high 3.5-5.1 [facility] Comment on above: Order Comment: NONFA STING.JKW Result Comment: Crit ical Result Called to and read back by: SARAH BETH GOMEZ at: 10/04/2024 16:01:19 by:[id number] Performed By: #### C BC, MG, CMP, PHOS #### [facility] [address] Protein [Mass/Vol] 6.5 g/dL Normal 6.4-8.9 [facility] Comment on above: Order Comment: NONFA STING.JKW Performed By: #### C BC, MG, CMP, PHOS #### [facility] [address] Sodium [Moles/Vol] 136 mmol/L Normal 136-145 [facility] Comment on above: Order Comment: NONFA STING.JKW Performed By: #### C BC, MG, CMP, PHOS #### [place] [address] [place] Urea nitrogen [Mass/Vol] 39 mg/dL High 7-25 [facility] Comment on above: Order Comment: NONFA STING.JKW Performed By: #### C BC, MG, CMP, PHOS #### [place] [address] [place] Creatinine [Mass/volume] in Serum or PlasmaOrdered By: Lolita Adorno on 10-04-2024 Creatinine [Mass/Vol] Creatinine [Mass/v olume] in Serum or Plasma High 0.70-1.30 [facility] Dipstick and Microscopicon 1 Appearance (U) Cloudy Critically abnormal Clear [facility] Comment on above: Order Comment: Name Collection Type:: Voided Performed By: #### C BC, MG, CMP, PHOS #### [place] [address] [place] Bacteria,Urine Rare Normal None Seen [facility] Comment on above: Order Comment: Name Collection Type:: Voided Performed By: #### C BC, MG, CMP, PHOS #### [facility] [address] [place] [address] [place] Bilirubin,Urine Negative Normal Negative The [facility] Comment on above: Order Comment: Name Collection Type:: Voided Performed By: #### C BC, MG, CMP, PHOS #### [address] Color (U) Light-Yellow Normal Yellow [facility] Comment on above: Order Comment: Name Collection Type:: Voided Performed By: #### C BC, MG, CMP, PHOS #### [address] Glucose Ql (U) >= High Normal [facility] Comment on above: Order Comment: Name Collection Type:: Voided Performed By: #### C BC, MG, CMP, PHOS #### [address] Hyaline Casts,Urine None Normal 0-8 [facility] Comment on above: Order Comment: Name Collection Type:: Voided Performed By: #### C BC, MG, CMP, PHOS #### [address] Ketones Ql (U) Negative Normal Negative [facility] Comment on above: Order Comment: Name Collection Type:: Voided Performed By: #### C BC, MG, CMP, PHOS #### [address] Leukocyte esterase Test strip Ql (U) 4+ High Negative [facility] Comment on above: Order Comment: Name Collection Type:: Voided Performed By: #### C BC, MG, CMP, PHOS #### [address] Mucus,Urine Rare Normal [facility] Comment on above: Order Comment: Name Collection Type:: Voided Result Comment: PERF ORMED BY: [place] [address] PATHOLOGIST INFECTION CONTROL SPECIALIST SONJA FALLON M.D. Performed By: #### C BC, MG, CMP, PHOS #### [address] [address] [place] Nitrite,Urine Negative Normal Negative [facility] Comment on above: Order Comment: Name Collection Type:: Voided Performed By: #### C BC, MG, CMP, PHOS #### [address] Occult Blood,Urine Negative Normal Negative [facility] Comment on above: Order Comment: Name Collection Type:: Voided Result Comment: PERF ORMED BY: [place] [address] PATHOLOGIST INFECTION CONTROL SPECIALIST SONJA FALLON M.D. Performed By: #### C BC, MG, CMP, PHOS #### [address] pH (U) 5.5 [pH] Normal 5.0-9.0 [facility] Comment on above: Order Comment: Name Collection Type:: Voided Performed By: #### C BC, MG, CMP, PHOS #### [address] Protein (U) [Mass/Vol] 20 mg/dL High Negative Th [facility] Comment on above: Order Comment: Name Collection Type:: Voided Performed By: #### C BC, MG, CMP, PHOS #### [address] RBC,Urine 1 [HPF] Normal 0-4 [facility] Comment on above: Order Comment: Name Collection Type:: Voided Performed By: #### C BC, MG, CMP, PHOS #### [address] Specificy [place],Urine 1.011 Normal 1.00 1-1.03 0 [facility] Comment on above: Order Comment: Name Collection Type:: Voided Performed By: #### C BC, MG, CMP, PHOS #### [address] Squamous Epithelial Cell,Urine 1 [HPF] Normal 0-2 [facility] Comment on above: Order Comment: Name Collection Type:: Voided Performed By: #### C BC, MG, CMP, PHOS #### [facility] [address] Urobilinogen,Urine Normal Normal Normal [facility] Comment on above: Order Comment: Name Collection Type:: Voided Performed By: #### C BC, MG, CMP, PHOS #### [facility] [address] WBC CLUMP, Urine Moderate High None Seen [facility] Comment on above: Order Comment: Name Collection Type:: Voided Performed By: #### C BC, MG, CMP, PHOS #### [facility] [address] WBC,Urine 50 [HPF] High 0-4 [facility] Comment on above: Order Comment: Name Collection Type:: Voided Performed By: #### C BC, MG, CMP, PHOS #### [facility] [address] ECG 12 lead ECGon 10-04-2024 ECG 12 lead ECG [facility] [place] [address] [place] [address] Electrocardiograph Report Signed Patient: Gage Lugo MR#: [id number] : 1950 Acct:[id number] Age/Sex: 74 / M ADM Date: 10/04/24 Loc: ER Room: Type: [facility] ER Attending Dr: Ordering Provider: Ernie Vargas DO Date of Service: 10/04/24 ECG/ECG 12 lead ECG: Recheck/Abnormal Lab/Rx Copies to: Test Reason : Blood Pressure : 206/95 mmHG Vent. Rate : 77 BPM Atrial Rate : 77 BPM P-R Int : 172 ms QRS Dur : 90 ms QT Int : 374 ms P-R-T Axes : 54 87 -62 degrees QTcB Int : 423 ms Normal sinus rhythm Low voltage QRS T wave abnormality, consider inferior ischemia Abnormal ECG When compared with ECG of 08-Sep-2023 08:00, Inverted T waves have replaced nonspecific T wave abnormality in Inferior leads Confirmed by Silvio Klein DO ([id number]) on 10/04/2024 7:03:36 PM Referred By: Electronically Signed By: Silvio Klein DO Transcribed By: MUS Signed By Silvio Klein DO 1902 Normal [facility] Epithelial cells.squamous [# /area] in Urine sediment by Automated countOrdered By: Ernie Vargas on 10-04-2024 Epithelial cells.squamous Auto (Urine sed) [#/Area] Epithelial cells.squamous [#/area] in Urine sediment by Automated count 0-2 [facility] Erythrocytes [#/area] in Uri ne sediment by Automated countOrdered By: Ernie Vargas on 10-04-2024 RBC Auto (Urine sed) [#/Area] Erythrocytes [#/area] in Urine sediment by Automated count 0-4 [facility] Globulin Calc (S) [Mass/Vol] Ordered By: Lolita Adorno on 10-04-2024 Globulin (S) [Mass/Vol] Serum globulin measurement by calculation (mass/volume) [facility] Glucose Poct Glucometerson 1 Glucose [Mass/Vol] 236 mg/dL Normal [facility] Comment on above: Result Comment: [place] om Glucose Reference Range is dependent on time and content of last meal. Glucose of more than 200 mg/dL in a nonstressed, ambulatory subject supports the diagnosis of Diabetes Mellitus. PERFORMED BY: [place] [address] PATHOLOGIST INFECTION CONTROL SPECIALIST SONJA FALLON M.D. Performed By: #### P HOS, MG, [id number], URIC #### [address] Glucose [Mass/volume] in Ser um or PlasmaOrdered By: Lolita Adorno on 10-04-2024 Glucose [Mass/Vol] Glucose [Mass/volume ] in Serum or Plasma High 70-100 [facility] Comment on above: ADA recommended refe rence rangeRandom Glucose Reference Range is dependent on time and content of last meal. Glucose of more than 200 mg/dL in a nonstressed, ambulatory subject supports the diagnosis of Diabetes Mellitus. Glucose [Mass/volume] in Uri ne by Test stripOrdered By: Ernie Vargas on 10-04-2024 Glucose Test strip (U) [Mass/Vol] Glucose [Mass/volume] in Urine by Test strip High Normal [facility] Hemoglobin Test strip Ql (U) Ordered By: Ernie Vargas on 10-04-2024 Hemoglobin Ql (U) Hemoglobin [Presence ] in Urine by Test strip Negative [facility] Hyaline casts [#/area] in Ur ine sediment by Automated countOrdered By: Ernie Vargas on 10-04-2024 Hyaline casts Auto (Urine sed) [#/Area] Hyaline casts [#/area] in Urine sediment by Automated count 0-8 [facility] Ketones Test strip Ql (U)Ord ered By: Ernie Vargas on 10-04-2024 Ketones Ql (U) Ketones [Presence] i n Urine by Test strip Negative [facility] Leukocyte clumps [Presence] in Urine by AutomatedOrdered By: Ernie Vargas on 10-04-2024 Leukocyte clumps Auto Ql (U) Leukocyte clumps [Presence] in Urine by Automated High None Seen [facility] Leukocyte esterase [Presence ] in Urine by Test stripOrdered By: Ernie Vargas on 10-04-2024 Leukocyte esterase Test strip Ql (U) Leukocyte esterase [Presence] in Urine by Test strip High Negative [facility] Leukocytes [#/area] in Urine sediment by Automated countOrdered By: Ernie Vargas on 10-04-2024 WBC Auto (Urine sed) [#/Area] Leukocytes [#/area] in Urine sediment by Automated count High 0-4 [facility] Monocyte distribution width [Entitic volume] in Blood by AutomatedOrdered By: Ernie Vargas on 10-04-2024 Monocyte distribution width Auto (Bld) [Entitic vol] Monocyte distribution width [Entitic volume] in Blood by Automated 0.00-20.00 [facility] Mucus [Presence] in Urine by AutomatedOrdered By: Ernie Vargas on 10-04-2024 Mucus Auto Ql (U) Mucus [Presence] in Urine by Automated [facility] Nitrite Test strip Ql (U)Ord ered By: Ernie Vargas on 10-04-2024 Nitrite Ql (U) Nitrite [Presence] i n Urine by Test strip Negative [facility] No Panel InformationOrdered By: Ernie Vargas on 10-04-2024 Blood Gas Critical Value See comment [facility] Comment on above: Critical Value peraza d on: 10/04/2024 at 17:47 Blood Gas Sample Site Venous Fir [facility] FiO2 21 % [facility] Venous Blood Base Excess -7.8 mmol/L Low -3.0-3.0 [facility] Venous Blood Oxygen Content 6.8 mmol/L 6.6-9.7 [facility] Venous Blood Oxygen Saturation 95.2 % Critically high 73.0-76.0 [facility] Venous Blood Partial Pressure CO2 34.4 mm[Hg] Low 38.0-50.0 [facility] Venous Blood Partial Pressure O2 73.8 mm[Hg] High 35.0-45.0 [facility] Venous Blood pH 7.32 7.32-7.43 [facility] No Panel InformationOrdered By: Lolita Adorno on 10-04-2024 Estimated GFR (CKD-EPI) 24.862 mL/Min [facility] Creatinine Clearance (Chem N/A [facility] Potassium [Moles/volume] in Serum or PlasmaOrdered By: Lolita Adorno on 10-04-2024 Potassium [Moles/Vol] Potassium [Moles/v olume] in Serum or Plasma Critically high 3.5-5.1 [facility] Comment on above: Critical Result Call ed to and read back by: SARAH BETH GOMEZ at: 10/04/2024 16:01:19 by:[id number] Protein Test strip (U) [Mass /Vol]Ordered By: Ernie Vargas on 10-04-2024 Protein (U) [Mass/Vol] Protein [Mass/vol ume] in Urine by Test strip High Negative [facility] Protein [Mass/volume] in Ser um or PlasmaOrdered By: Lolita Adorno on 10-04-2024 Protein [Mass/Vol] Protein [Mass/volume ] in Serum or Plasma 6.4-8.9 [facility] Serum or plasma albumin/glob ulin mass ratioOrdered By: Lolita Adorno on 10-04-2024 Albumin/Globulin [Mass ratio] Serum or plasma albumin/globulin mass ratio [facility] Serum or plasma anion gap de terminationOrdered By: Lolita Adorno on 10-04-2024 Anion gap [Moles/Vol] Serum or plasma an ion gap determination 6.0-15.0 [facility] Sodium [Moles/volume] in Ser um or PlasmaOrdered By: Lolita Adorno on 10-04-2024 Sodium [Moles/Vol] Sodium [Moles/volume ] in Serum or Plasma 136-145 [facility] Specific gravity Test strip (U) [Rel density]Ordered By: Ernie Vargas on 10-04-2024 Specific gravity (U) [Rel density] Specific gravity of Urine by Test strip 1.001-1.03 0 [facility] Urea nitrogen [Mass/volume] in Serum or PlasmaOrdered By: Lolita Adorno on 10-04-2024 Urea nitrogen [Mass/Vol] Urea nitrogen [Mass/volume] in Serum or Plasma High 7-25 [facility] Urine Cultureon 10-04-2024 Bacteria identified Cx Nom (U) ORGANISM: Escherichia coli (O:ESCCOL) [place] Count >100,000 Aerobic TREASURE Charge (NMIC56) - SUSCEPTIBILITY ORGANISM: O:ESCCOL ANTIBIOTIC INTERPRETATION TREASURE Amikacin S <16 Amoxacillin/K Clavulanate S <8 Ampicillin S <8 Ampicillin/Sulbactam S <4 Aztreonam S <4 Cefazolin S <2 Cefepime S <2 Ceftazidime S <1 Ceftazidime/Avibactam S <4 Ceftolozane/Tazobactam S <2 Ceftriaxone S <1 Cefuroxime S <4 Ciprofloxacin S <0.25 Ertapenem S <0.5 Gentamicin S <2 Levofloxacin S <0.5 Meropenem S <1 Meropenem/Vaborbactam S <2 Nitrofurantoin S <32 Piperacillin/Tazobactam S <8 Tetracycline S <4 Tigecycline S <2 Tobramycin S <2 Trimethoprim/Sulfamethox azole S <0.5 S = SUSCEPTIBLE I = INTERMEDIATE R = RESISTANT BLANK = DATA NOT AVAILABLE, OR DRUG NOT ADVISABLE OR TESTED R* = RESISTANCE DUE TO EXTENDED SPECTRUM BETA-LACTAMASES ESBL = EXTENDED SPECTRUM BETA-LACTAMASE TFG = THYMIDINE-DEPENDENT STRAIN ALIS = BETA-LACTAMASE POSITIVE IB = INDUCIBLE BETA-LACTAMASE. APPEARS IN PLACE OF 'S' WITH SPECIES KNOWN TO POSSESS INDUCIBLE BETA-LACTAMASES. POTENTIALLY THEY MAY BECOME RESISTANT TO ALL B-LACTAM DRUGS. PERFORMED BY: [place] [address] PATHOLOGIST INFECTION CONTROL SPECIALIST SONJA FALLON M.D. Normal [facility] Comment on above: Performed By: #### C BC, MG, CMP, PHOS #### [facility] [address] [place] [address] Urine cultureOrdered By: Micheal Vargas on 10-04-2024 Bacteria identified Cx Nom (U) Escherichia coli Abnormal [facility] Urobilinogen Test strip (U) [Mass/Vol]Ordered By: Ernie Vargas on 10-04-2024 Urobilinogen (U) [Mass/Vol] Urobilinogen [Mass/volume] in Urine by Test strip Normal [facility] Venous Blood GasOrdered By: Ernie Vargas on 10-04-2024 CO2 [Moles/Vol] 18.4 mmol/L Low 24.0-29.0 [facility] Comment on above: Performed By: #### C BC, MG, CMP, PHOS #### [facility] [address] [place] [address] HCO3 (Bld) [Moles/Vol] 17.4 mmol/L Low 23.0-29.0 [facility] Comment on above: Performed By: #### C BC, MG, CMP, PHOS #### [facility] [address] [place] [address] Venous Blood Gason 12-30-202 4 Respiratory Critical Normal [facility] Comment on above: Result Comment: Crit ical Value called on: 10/04/2024 at 17:47 PERFORMED BY: [place] [address] PATHOLOGIST INFECTION CONTROL SPECIALIST SONJA FALLON M.D. Performed By: #### C BC, MG, CMP, PHOS #### [address] VBG Base Excess -7.8 mmol/L Low -3.0-3.0 [facility] Comment on above: Performed By: #### C BC, MG, CMP, PHOS #### [address] VBG Draw Site Venous Normal [facility] Comment on above: Performed By: #### C BC, MG, CMP, PHOS #### [address] VBG Frac Inspired O2 21 % Normal [facility] Comment on above: Performed By: #### C BC, MG, CMP, PHOS #### [address] VBG O2 Content 6.8 mmol/L Normal 6.6-9.7 [facility] Comment on above: Performed By: #### C BC, MG, CMP, PHOS #### [address] VBG Oxygen Saturation 95.2 % Off scale high 73.0-76.0 [facility] Comment on above: Performed By: #### C BC, MG, CMP, PHOS #### [address] VBG PCO2 34.4 mm[Hg] Low 38.0-50.0 [facility] Comment on above: Performed By: #### C BC, MG, CMP, PHOS #### [address] VBG PH Venous PH 7.32 Normal 7.32-7.43 [facility] Comment on above: Performed By: #### C BC, MG, CMP, PHOS #### [facility] [address] [id number] [place] VBG PO2 73.8 mm[Hg] High 35.0-45.0 [facility] Comment on above: Performed By: #### C BC, MG, CMP, PHOS #### [facility] [address] [id number] [facility] pH Test strip (U)Ordered By: Ernie Vargas on 10-04-2024 pH (U) pH of Urine by Test strip 5.0-9.0 [facility] XR SPINE CERVICAL 3 VWS OR L ESSon 09-16-2024 XR SPINE CERVICAL 3 VWS OR LESS XR SPINE CERVICAL 3 VWS OR LESS XR SPINE CERVICAL 3 VWS OR LESS History: 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 Impression: * No acute findings. * Diffuse disc disease and facet arthritis hardware unchanged from July 21, 2024. * Consider MRI if you would like to assess for stenosis and/or radiculopathy or other occult process. Finalized by Ricci Herbert MD on 09/16/2024 4:42 PM Normal [facility] XR SPINE LUMBAR 2 OR 3 VWSon 09-16-2024 XR SPINE LUMBAR 2 OR 3 VWS XR SPINE LUMBAR 2 OR 3 VWS XR SPINE LUMBAR 2 OR 3 VWS History: Lumbar stenosis with neurogenic claudication Impression: * No acute findings. * No fracture or destructive lesion. * Diffuse disc disease and facet arthritis. . Hardware unchanged from July 21, 2024 lower lumbar spine * Consider MRI if the patient has not had a recent MRI, if you suspect occult process Finalized by Ricci Herbert MD on 09/16/2024 4:41 PM Normal [facility] Albumin [Mass/volume] in Ser um or Plasma by Bromocresol green (BCG) dye binding methoOrdered By: Nette Holden on 08-23-2024 Albumin BCG dye [Mass/Vol] Albumin [Mass/volume] in Serum or Plasma by Bromocresol green (BCG) dye binding metho 3.5-5.7 [facility] Appearance of UrineOrdered B y: Nette Holden on 08-23-2024 Appearance (U) Urine appearance Abnormal Clear [facility] Bacteria [Presence] in Urine by AutomatedOrdered By: Nette Holden on 08-23-2024 Bacteria Auto Ql (U) Bacteria [Presence] in Urine by Automated High None Seen [facility] Bilirubin Test strip Ql (U)O rdered By: Nette Holden on 08-23-2024 Bilirubin Ql (U) Bilirubin.total [Presence] in Urine by Test strip Negative [facility] Calcium [Mass/volume] in Ser um or PlasmaOrdered By: Nette Holden on 08-23-2024 Calcium [Mass/Vol] Calcium [Mass/volume ] in Serum or Plasma 8.6-10.3 [facility] Carbon dioxide, total [Moles /volume] in Serum or PlasmaOrdered By: eNtte Holden on 08-23-2024 CO2 [Moles/Vol] Carbon dioxide, tota l [Moles/volume] in Serum or Plasma 21.0-31.0 [facility] Chloride [Moles/volume] in S antolin or PlasmaOrdered By: Nette Holden on 08-23-2024 Chloride [Moles/Vol] Chloride [Moles/vol ume] in Serum or Plasma High 98-107 [facility] Color Auto (U)Ordered By: Ab emanuel Holden on 08-23-2024 Color (U) Color of Urine by Auto [facility] Creatinine [Mass/volume] in Serum or PlasmaOrdered By: Nette Holden on 08-23-2024 Creatinine [Mass/Vol] Creatinine [Mass/v olume] in Serum or Plasma High 0.70-1.30 [facility] Creatinine [Mass/volume] in UrineOrdered By: Nette Holden on 08-23-2024 Creatinine (U) [Mass/Vol] Creatinine [Mass/volume] in Urine [facility] Comment on above: No reference range e stablished Dipstick and Microscopicon 1 10-23-2023 Appearance (U) Cloudy Critically abnormal Clear [facility] Comment on above: Order Comment: Reaso n for Exam Chronic kidney disease, stage III (moderate);Diabetes mellit Performed By: #### P ROCRERAT #### [address] Bacteria,Urine 4+ High None Seen [facility] Comment on above: Order Comment: Reaso n for Exam Chronic kidney disease, stage III (moderate);Diabetes mellit Performed By: #### P ROCRERAT #### [address] Bilirubin,Urine Negative Normal Negative [facility] Comment on above: Order Comment: Reaso n for Exam Chronic kidney disease, stage III (moderate);Diabetes mellit Performed By: #### P ROCRERAT #### [address] [place] Yeast,Urine 2+ High None Seen [facility] Comment on above: Order Comment: Reaso n for Exam Chronic kidney disease, stage III (moderate);Diabetes mellit Result Comment: PERF ORMED BY: [place] [address] PATHOLOGIST INFECTION CONTROL SPECIALIST SONJA FALLON M.D. Performed By: #### P ROCRERAT #### [address] Color (U) Light-Yellow Normal Yellow [facility] Comment on above: Order Comment: Reaso n for Exam Chronic kidney disease, stage III (moderate);Diabetes mellit Performed By: #### P ROCRERAT #### [address] Glucose Ql (U) Normal Normal Normal [facility] Comment on above: Order Comment: Reaso n for Exam Chronic kidney disease, stage III (moderate);Diabetes mellit Performed By: #### P ROCRERAT #### [address] Hyaline Casts,Urine None Normal 0-8 [facility] Comment on above: Order Comment: Reaso n for Exam Chronic kidney disease, stage III (moderate);Diabetes mellit Performed By: #### P ROCRERAT #### [facility] [address] Ketones Ql (U) Negative Normal Negative [facility] Comment on above: Order Comment: Reaso n for Exam Chronic kidney disease, stage III (moderate);Diabetes mellit Performed By: #### P ROCRERAT #### [address] Leukocyte esterase Test strip Ql (U) 4+ High Negative [facility] Comment on above: Order Comment: Reaso n for Exam Chronic kidney disease, stage III (moderate);Diabetes mellit Performed By: #### P ROCRERAT #### [place] [address] [place] Mucus,Urine Rare Normal [facility] Comment on above: Order Comment: Reaso n for Exam Chronic kidney disease, stage III (moderate);Diabetes mellit Performed By: #### P ROCRERAT #### [place] [address] [place] Nitrite,Urine Negative Normal Negative [facility] Comment on above: Order Comment: Reaso n for Exam Chronic kidney disease, stage III (moderate);Diabetes mellit Performed By: #### P ROCRERAT #### [address] Occult Blood,Urine Negative Normal Negative [facility] Comment on above: Order Comment: Reaso n for Exam Chronic kidney disease, stage III (moderate);Diabetes mellit Performed By: #### P ROCRERAT #### [address] pH (U) 5.5 [pH] Normal 5.0-9.0 [facility] Comment on above: Order Comment: Reaso n for Exam Chronic kidney disease, stage III (moderate);Diabetes mellit Performed By: #### P ROCRERAT #### [address] Protein (U) [Mass/Vol] 50 mg/dL High Negative [facility] Comment on above: Order Comment: Reaso n for Exam Chronic kidney disease, stage III (moderate);Diabetes mellit Performed By: #### P ROCRERAT #### [address] RBC,Urine 5 [HPF] High 0-4 [facility] Comment on above: Order Comment: Reaso n for Exam Chronic kidney disease, stage III (moderate);Diabetes mellit Performed By: #### P ROCRERAT #### [address] Specificy [place],Urine 1.012 Normal 1.00 1-1.03 0 [facility] Comment on above: Order Comment: Reaso n for Exam Chronic kidney disease, stage III (moderate);Diabetes mellit Performed By: #### P ROCRERAT #### [address] Squamous Epithelial Cell,Urine 1 [HPF] Normal 0-2 [facility] Comment on above: Order Comment: Reaso n for Exam Chronic kidney disease, stage III (moderate);Diabetes mellit Performed By: #### P ROCRERAT #### [address] Urobilinogen,Urine Normal Normal Normal [facility] Comment on above: Order Comment: Reaso n for Exam Chronic kidney disease, stage III (moderate);Diabetes mellit Performed By: #### P ROCRERAT #### [address] WBC CLUMP, Urine Many High None Seen [facility] Comment on above: Order Comment: Reaso n for Exam Chronic kidney disease, stage III (moderate);Diabetes mellit Performed By: #### P ROCRERAT #### [address] WBC,Urine Innumerable High 0-4 [facility] Comment on above: Order Comment: Reaso n for Exam Chronic kidney disease, stage III (moderate);Diabetes mellit Performed By: #### P ROCRERAT #### [address] Epithelial cells.squamous [# /area] in Urine sediment by Automated countOrdered By: Nette Holden on 08-23-2024 Epithelial cells.squamous Auto (Urine sed) [#/Area] Epithelial cells.squamous [#/area] in Urine sediment by Automated count 0-2 [facility] Erythrocyte distribution wid th Auto (RBC) [Ratio]Ordered By: Nette Holden on 08-23-2024 Erythrocyte distribution width (RBC) [Ratio] Erythrocyte distribution width [Ratio] by Automated count 12.0-14.8 [facility] Erythrocytes [#/area] in Uri ne sediment by Automated countOrdered By: Nette Holden on 08-23-2024 RBC Auto (Urine sed) [#/Area] Erythrocytes [#/area] in Urine sediment by Automated count High 0-4 [facility] Glucose [Mass/volume] in Ser um or PlasmaOrdered By: Nette Holden on 08-23-2024 Glucose [Mass/Vol] Glucose [Mass/volume ] in Serum or Plasma High 70-100 [facility] Comment on above: ADA recommended refe rence rangeRandom Glucose Reference Range is dependent on time and content of last meal. Glucose of more than 200 mg/dL in a nonstressed, ambulatory subject supports the diagnosis of Diabetes Mellitus. Glucose [Mass/volume] in Uri ne by Test stripOrdered By: Nette Holden on 08-23-2024 Glucose Test strip (U) [Mass/Vol] Glucose [Mass/volume] in Urine by Test strip Normal [facility] Hematocrit Auto (Bld) [Volum e fraction]Ordered By: Nette Holden on 08-23-2024 Hematocrit (Bld) [Volume fraction] Hematocrit [Volume Fraction] of Blood by Automated count Low 38.8-50.0 [facility] Hemoglobin Test strip Ql (U) Ordered By: Nette Holden on 08-23-2024 Hemoglobin Ql (U) Hemoglobin [Presence ] in Urine by Test strip Negative [facility] Hemoglobin [Mass/volume] in BloodOrdered By: Nette Holden on 08-23-2024 Hemoglobin (Bld) [Mass/Vol] Hemoglobin [Mass/volume] in Blood Low 13.0-17.0 [facility] Hemogram CBC Without Diffon 08-23-2024 Erythrocyte distribution width (RBC) [Ratio] 14.0 % Normal 12.0-14.8 [facility] Comment on above: Performed By: #### C BC, MG, CMP, PHOS #### [address] Hematocrit (Bld) [Volume fraction] 36.7 % Low 38.8-50.0 [facility] Comment on above: Performed By: #### C BC, MG, CMP, PHOS #### [address] Hemoglobin (Bld) [Mass/Vol] 11.8 g/dL Low 13.0-17.0 [facility] Comment on above: Performed By: #### C BC, MG, CMP, PHOS #### [address] MCH (RBC) [Entitic mass] 27.7 pg Normal 27.5-35.2 [facility] Comment on above: Performed By: #### C BC, MG, CMP, PHOS #### [address] MCV (RBC) [Entitic vol] 86.2 fL Normal 83.5-101 [facility] Comment on above: Performed By: #### C BC, MG, CMP, PHOS #### [address] Mean Corpuscular HGB Conc 32.1 g/dL Low 32.5-35.6 [facility] Comment on above: Performed By: #### C BC, MG, CMP, PHOS #### [address] Platelet mean volume (Bld) [Entitic vol] 8.5 fL Normal 6.6-10.1 [facility] Comment on above: Result Comment: PERF ORMED BY: [place] [address] PATHOLOGIST INFECTION CONTROL SPECIALIST SONJA FALLON M.D. Performed By: #### C BC, MG, CMP, PHOS #### [facility] [address] Platelets (Bld) [#/Vol] 189 10*3/uL Normal 150-450 [facility] Comment on above: Performed By: #### C BC, MG, CMP, PHOS #### [facility] [address] RBC (Bld) [#/Vol] 4.26 10*6/uL Normal 3.90-5.60 [facility] Comment on above: Performed By: #### C BC, MG, CMP, PHOS #### [facility] [address] WBC (Bld) [#/Vol] 8.7 10*3/uL Normal 4.1-10.5 [facility] Comment on above: Performed By: #### C BC, MG, CMP, PHOS #### [facility] [address] Hyaline casts [#/area] in Ur ine sediment by Automated countOrdered By: Nette Holden on 08-23-2024 Hyaline casts Auto (Urine sed) [#/Area] Hyaline casts [#/area] in Urine sediment by Automated count 0-8 [facility] Ketones Test strip Ql (U)Ord ered By: Nette Holden on 08-23-2024 Ketones Ql (U) Ketones [Presence] i n Urine by Test strip Negative [facility] Leukocyte clumps [Presence] in Urine by AutomatedOrdered By: Nette Adina on 08-23-2024 Leukocyte clumps Auto Ql (U) Leukocyte clumps [Presence] in Urine by Automated High None Seen [facility] Leukocyte esterase [Presence ] in Urine by Test stripOrdered By: Nette Holden on 08-23-2024 Leukocyte esterase Test strip Ql (U) Leukocyte esterase [Presence] in Urine by Test strip High Negative [facility] Leukocytes [#/area] in Urine sediment by Automated countOrdered By: Nette Burnettr on 08-23-2024 WBC Auto (Urine sed) [#/Area] Leukocytes [#/area] in Urine sediment by Automated count High 0-4 [facility] Leukocytes [#/volume] correc ruben for nucleated erythrocytes in Blood by Automated counOrdered By: Nette Holden on 08-23-2024 WBC corrected for nucl RBC Auto (Bld) [#/Vol] Leukocytes [#/volume] corrected for nucleated erythrocytes in Blood by Automated coun 4.1-10.5 [facility] MCH Auto (RBC) [Entitic mass ]Ordered By: Nette Holden on 08-23-2024 MCH (RBC) [Entitic mass] MCH [Entitic mass] by Automated count 27.5-35.2 [facility] MCHC Auto (RBC) [Mass/Vol]Or dered By: Nette Holden on 08-23-2024 MCHC (RBC) [Mass/Vol] MCHC [Mass/volume] by Automated count Low 32.5-35.6 [facility] MCV Auto (RBC) [Entitic vol] Ordered By: Nette Holden on 08-23-2024 MCV (RBC) [Entitic vol] MCV [Entitic vol ume] by Automated count 83.5-101 [facility] Magnesiumon 08-23-2024 Magnesium [Mass/Vol] 1.8 mg/dL Low 1.9-2.7 [facility] Comment on above: Performed By: #### P ROCRERAT #### [address] Magnesium [Mass/volume] in S antolin or PlasmaOrdered By: Nette Holden on 08-23-2024 Magnesium [Mass/Vol] Magnesium [Mass/vol ume] in Serum or Plasma Low 1.9-2.7 [facility] Mucus [Presence] in Urine by AutomatedOrdered By: Nette Holden on 08-23-2024 Mucus Auto Ql (U) Mucus [Presence] in Urine by Automated [facility] Nitrite Test strip Ql (U)Ord ered By: Nette Holden on 08-23-2024 Nitrite Ql (U) Nitrite [Presence] i n Urine by Test strip Negative [facility] No Panel InformationOrdered By: Nette Holden on 08-23-2024 Estimated GFR (CKD-EPI) 27.348 mL/Min [facility] Creatinine Clearance (Chem N/A [facility] Parathyrin.intact [Mass/volu me] in Serum or PlasmaOrdered By: Nette Holden on 08-23-2024 Parathyrin.intact [Mass/Vol] Parathyrin.intact [Mass/volume] in Serum or Plasma High [facility] Parathyroid Hormone Intacton 08-23-2024 Parathyroid Hormone Intact 98.2 pg/mL High [facility] Comment on above: Result Comment: PERF ORMED BY: [place] [address] PATHOLOGIST INFECTION CONTROL SPECIALIST SONJA FALLON M.D. Performed By: #### P ROCFLORY #### [address] Phosphate [Mass/volume] in S antolin or PlasmaOrdered By: Nette Holden on 08-23-2024 Phosphate [Mass/Vol] Phosphate [Mass/vol ume] in Serum or Plasma 2.5-4.5 [facility] Platelet mean volume Auto (B ld) [Entitic vol]Ordered By: Nette Holden on 08-23-2024 Platelet mean volume (Bld) [Entitic vol] Platelet mean volume [Entitic volume] in Blood by Automated count 6.6-10.1 [facility] Platelets Auto (Bld) [#/Vol] Ordered By: Nette Holden on 08-23-2024 Platelets (Bld) [#/Vol] Platelets [#/vol ume] in Blood by Automated count 150-450 [facility] Potassium [Moles/volume] in Serum or PlasmaOrdered By: Nette Holden on 08-23-2024 Potassium [Moles/Vol] Potassium [Moles/v olume] in Serum or Plasma High 3.5-5.1 [facility] Protein Creat Ratio Ur Rando mon 08-23-2024 Creatinine, Urine (Random) 68.00 mg/dL Normal [facility] Comment on above: Result Comment: No r eference range established Performed By: #### P ROCRERAT #### [address] Protein (U) [Mass/Vol] 76 mg/dL High 0-9 [facility] Comment on above: Performed By: #### P ROCRERAT #### [address] Urine Protein/Creatinine Ratio 1118 mg/g{Cre} High 0-200 [facility] Comment on above: Result Comment: PERF ORMED BY: [place] [address] PATHOLOGIST INFECTION CONTROL SPECIALIST SONJA FALLON M.D. Performed By: #### P ROCRERAT #### [address] Protein Test strip (U) [Mass /Vol]Ordered By: Nette Holden on 08-23-2024 Protein (U) [Mass/Vol] Protein [Mass/vol ume] in Urine by Test strip High Negative [facility] Protein [Mass/volume] in Uri neOrdered By: Nette Adina on 08-23-2024 Protein (U) [Mass/Vol] Protein [Mass/vol ume] in Urine High 0-9 [facility] RBC Auto (Bld) [#/Vol]Ordere d By: Nette Adina on 08-23-2024 RBC (Bld) [#/Vol] Erythrocytes [#/volu me] in Blood by Automated count 3.90-5.60 [facility] Renal Function Panelon 08-23 Albumin [Mass/Vol] 4.0 g/dL Normal 3.5-5.7 [facility] Comment on above: Performed By: #### P ROCRERAT #### [address] Anion gap [Moles/Vol] 10.9 mmol/L Normal 6.0-15.0 [facility] e [facility] Comment on above: Performed By: #### P ROCRERAT #### [address] [place] [address] [place] Calcium [Mass/Vol] 9.1 mg/dL Normal 8.6-10.3 [facility] Comment on above: Performed By: #### P ROCRERAT #### [facility] [address] Chloride [Moles/Vol] 109 mmol/L High 98-107 [facility] Comment on above: Performed By: #### P ROCRERAT #### [address] CO2 [Moles/Vol] 23.7 mmol/L Normal 21.0-31.0 [facility] Comment on above: Performed By: #### P ROCRERAT #### [address] Creatinine [Mass/Vol] 2.42 mg/dL High 0.70-1.30 [facility] Comment on above: Performed By: #### P ROCRERAT #### [address] Estimated GFR 27.348 mL/Min Normal [facility] Comment on above: Performed By: #### P ROCRERAT #### [address] Glucose [Mass/Vol] 187 mg/dL High 70-100 [facility] Comment on above: Result Comment: [place] Glucose Reference Range is dependent on time and content of last meal. Glucose of more than 200 mg/dL in a nonstressed, ambulatory subject supports the diagnosis of Diabetes Mellitus. ADA recommended reference range Performed By: #### P ROCRERAT #### [place] [address] [place] Phosphate [Mass/Vol] 4.0 mg/dL Normal 2.5-4.5 [facility] Comment on above: Performed By: #### P ROCRERAT #### [place] [address] [place] Potassium [Moles/Vol] 5.6 mmol/L High 3.5-5.1 [facility] Comment on above: Performed By: #### P ROCRERAT #### [facility] [address] Sodium [Moles/Vol] 138 mmol/L Normal 136-145 [facility] Comment on above: Performed By: #### P ROCRERAT #### [facility] [address] Urea nitrogen [Mass/Vol] 41 mg/dL High 7-25 [facility] Comment on above: Performed By: #### P ROCRERAT #### [facility] [address] Serum or plasma anion gap de terminationOrdered By: Nette Adina on 08-23-2024 Anion gap [Moles/Vol] Serum or plasma an ion gap determination 6.0-15.0 [facility] Sodium [Moles/volume] in Ser um or PlasmaOrdered By: Nette Adina on 08-23-2024 Sodium [Moles/Vol] Sodium [Moles/volume ] in Serum or Plasma 136-145 [facility] Specific gravity Test strip (U) [Rel density]Ordered By: Nette Adina on 08-23-2024 Specific gravity (U) [Rel density] Specific gravity of Urine by Test strip 1.001-1.03 0 [facility] Urate [Mass/volume] in Serum or PlasmaOrdered By: Nette Adina on 08-23-2024 Urate [Mass/Vol] Urate [Mass/volume] in Serum or Plasma 4.4-7.6 [facility] Urea nitrogen [Mass/volume] in Serum or PlasmaOrdered By: Nette Adina on 08-23-2024 Urea nitrogen [Mass/Vol] Urea nitrogen [Mass/volume] in Serum or Plasma High 7-25 [facility] Uric Acidon 08-23-2024 Urate [Mass/Vol] 5.8 mg/dL Normal 4.4-7.6 [facility] Comment on above: Performed By: #### P ROCRERAT #### [facility] [address] Urine Cultureon 08-23-2024 Bacteria identified Cx Nom (U) >100,000 colonies/ml mixed bacterial skin contaminants including mixed gram negative bacilli - 2 Days PERFORMED BY: [address] [id number] PATHOLOGIST INFECTION CONTROL SPECIALIST SONJA FALLON M.D. Normal [facility] Comment on above: Performed By: #### P ROCRERAT #### [facility] [address] [place] [id number] [facility] Urine cultureOrdered By: Abd ul Adina on 08-23-2024 Bacteria identified Cx Nom (U) Urine culture [facility] Urine protein/creatinine rat ioOrdered By: Nette Adina on 08-23-2024 Protein/Creatinine (U) [Ratio] Urine protein/creatinine ratio High 0-200 [facility] Urobilinogen Test strip (U) [Mass/Vol]Ordered By: Nette Adina on 08-23-2024 Urobilinogen (U) [Mass/Vol] Urobilinogen [Mass/volume] in Urine by Test strip Normal [facility] Vitamin D 25 Hydroxy Totalon 08-23-2024 Vitamin D 25 Hydroxy Total 22.6 ng/mL Low 30-100 [facility] Comment on above: Result Comment: [place] MIN D STATUS 25(OH)VITAMIN D RANGE (ng/mL) Deficient <20 Insufficient 20 to <30 Sufficient 30 to 100 Reference: Jovan MF,Jazmyn NC, Darrion MARKS, et al. Evaluation,treatment, and prevention of vitamin D deficiency; an Endocrine Society clinical practice guideline. JCEM. 2010; 96(7):1911-30. PERFORMED BY: [address] [address] PATHOLOGIST INFECTION CONTROL SPECIALIST SONJA FALLON M.D. Performed By: #### P ROCRERAT #### [facility] [address] [place] [id number] [facility] Vitamin D+Metabolites [Mass/ volume] in Serum or PlasmaOrdered By: Nette Adina on 08-23-2024 Vitamin D+Metabolites [Mass/Vol] Vitamin D+Metabolites [Mass/volume] in Serum or Plasma Low 30-100 [facility] Comment on above: VITAMIN D STATUS 25( [place])VITAMIN D RANGE (ng/mL) Deficient <20 Insufficient 20 to <30Sufficient 30 to 100Reference: Jovan MF,Jazmyn HARDEN, Darrion MARKS, et al. Evaluation,treatment, and prevention of vitamin D deficiency; an Endocrine Society clinical practice guideline. JCEM. 2010; 96(7):1911-30. Yeast.budding [Presence] in Urine by Computer assisted methodOrdered By: Nette Holden on 08-23-2024 Yeast.budding Computer assisted Ql (U) Yeast.budding [Presence] in Urine by Computer assisted method High None Seen [facility] pH Test strip (U)Ordered By: Nette Holden on 08-23-2024 pH (U) pH of Urine by Test strip 5.0-9.0 [facility] HbA1c HPLC (Bld) [Mass fract ion]on 07-23-2024 HbA1c (Bld) [Mass fraction] Hemoglobin A1c/Hemoglobin.total in Blood by HPLC [facility] XR SPINE CERVICAL 3 VWS OR L ESSon 07-21-2024 XR SPINE CERVICAL 3 VWS OR LESS XR SPINE CERVICAL 3 VWS OR LESS History: C-spine fusion Exam/Technique: Frontal lateral odontoid views of cervical spine were obtained. Comparison: None Findings: There is posterior fusion of C3-C7. No hardware abnormalities are seen. Full evaluation below C6 is compromised by overlying soft tissue. There is multilevel disc space narrowing and endplate osteophyte formation. The vertebral heights are well-maintained. IMPRESSION: Extensive postoperative changes with multilevel disc space narrowing Finalized by Govind Garcia MD on 07/21/2024 1:15 PM Normal [facility] XR SPINE LUMBAR 2 OR 3 VWSon 07-21-2024 XR SPINE LUMBAR 2 OR 3 VWS XR SPINE LUMBAR 2 OR 3 VWS HISTORY: Lumbar stenosis with neurogenic claudication TECHNIQUE: Frontal lateral and spot views of the lumbar spine were obtained. . COMPARISON: None. FINDINGS: There is posterior and interbody fusion of L3-4 and L4-5. No hardware abnormalities are seen. No complicating processes are identified. The vertebral heights and disc spaces are well-maintained. There is no evidence for an acute osseous abnormalities.. IMPRESSION: Normal appearing postoperative changes. Otherwise normal lumbar spine.. Finalized by Govind Garcia MD on 07/21/2024 1:06 PM Normal [facility] Glucose,Whole Bloodon 2023 Glucose [Mass/Vol] 93 mg/dL Normal 75-110 [facility] POC Glucose Fingerstickon Glucose [Mass/Vol] 93 mg/dL 75 - 110 mg/dL [facility] Glucose,Whole Bloodon 2023 Glucose [Mass/Vol] 222 mg/dL High 75-110 [facility] Glucose [Mass/Vol] 162 mg/dL High 75-110 [facility] Glucose [Mass/Vol] 150 mg/dL High 75-110 [facility] Glucose [Mass/Vol] 102 mg/dL Normal 75-110 [facility] POC Glucose Fingerstickon Glucose [Mass/Vol] 222 mg/dL High 75 - 110 mg/dL [facility] Interpretation and review of laboratory results Abnormal [facility] Glucose [Mass/Vol] 162 mg/dL High 75 - 110 mg/dL [facility] Interpretation and review of laboratory results Abnormal [facility] Glucose [Mass/Vol] 150 mg/dL High 75 - 110 mg/dL [facility] Interpretation and review of laboratory results Abnormal [facility] Glucose [Mass/Vol] 102 mg/dL 75 - 110 mg/dL [facility] Glucose,Whole Bloodon 2023 Glucose [Mass/Vol] 181 mg/dL High 75-110 [facility] Glucose [Mass/Vol] 173 mg/dL High 75-110 [facility] Glucose [Mass/Vol] 138 mg/dL High 75-110 [facility] Glucose [Mass/Vol] 115 mg/dL High 75-110 [facility] POC Glucose Fingerstickon Glucose [Mass/Vol] 181 mg/dL High 75 - 110 mg/dL [facility] Interpretation and review of laboratory results Abnormal [facility] Glucose [Mass/Vol] 173 mg/dL High 75 - 110 mg/dL [facility] Interpretation and review of laboratory results Abnormal [facility] Glucose [Mass/Vol] 138 mg/dL High 75 - 110 mg/dL [facility] Interpretation and review of laboratory results Abnormal [facility] Glucose [Mass/Vol] 115 mg/dL High 75 - 110 mg/dL [facility] Interpretation and review of laboratory results Abnormal [facility] Basic Metabolic Panelon 05-07 Anion gap [Moles/Vol] 5 mmol/L Low 9 - 16 mmol/L [facility] Calcium [Mass/Vol] 8.0 mg/dL Low 8.6 - 10. 4 mg/dL [facility] Chloride [Moles/Vol] 108 mmol/L High 98 - 10 7 mmol/L [facility] CO2 [Moles/Vol] 25 mmol/L 20 - 31 mmol/L [facility] Creatinine [Mass/Vol] 2.2 mg/dL High 0.70 - 1.20 mg/dL [facility] Est, Glom Filt Rate 30 Low - [facility] Glucose [Mass/Vol] 134 mg/dL High 74 - 99 mg/dL [facility] Interpretation and review of laboratory results Abnormal [facility] Potassium [Moles/Vol] 4.2 mmol/L 3.7 - 5.3 mmol/L [facility] Sodium [Moles/Vol] 138 mmol/L 136 - 145 mmol/L [facility] Urea nitrogen [Mass/Vol] 40 mg/dL High 8 - 23 mg/dL [facility] Basic Metabolic Profon 06-02 Anion gap [Moles/Vol] 5 mmol/L Low 9-16 [facility] Comment on above: Performed By: #### C BC, BMP ####[facility] [address] [place], [place] [phone] Director: Kelechi Dueñas MD Calcium [Mass/Vol] 8.0 mg/dL Low 8.6-10.4 [facility] Comment on above: Performed By: #### C BC, BMP ####[facility] [address] [place], [place] [phone] Director: Kelechi Dueñas MD Chloride [Moles/Vol] 108 mmol/L High 98-107 [facility] Comment on above: Performed By: #### C BC, BMP ####[facility] [address] [place], [place] [phone] Director: Kelechi Dueñas MD CO2 [Moles/Vol] 25 mmol/L Normal 20-31 [facility] Comment on above: Performed By: #### C BC, BMP ####[facility] [address] [place] [address] [phone] Director: Kelechi Dueñas MD Creatinine [Mass/Vol] 2.2 mg/dL High 0.70-1.20 [facility] Comment on above: Performed By: #### C BC, BMP ####[facility] [address] [phone] Director: Kelechi Dueñas MD GFR/1.73 sq M.predicted among non-blacks MDRD (S/P/Bld) [Vol rate/Area] 30 mL/min/{1.73_m2} Low >60 [facility] Comment on above: Result Comment: These results are not intended for use in patients <18 years of age. eGFR results are calculated without a race factor using the 2020 CKD-EPI equation. Careful clinical correlation is recommended, particularly when comparing to results calculated using previous equations. The CKD-EPI equation is less accurate in patients with extremes of muscle mass, extra-renal metabolism of creatine, excessive creatine ingestion, or following therapy that affects renal tubular secretion. Performed By: #### C BC, BMP ####[facility] [address] [place] [address] Lab Director: Kelechi Duñeas MD Glucose [Mass/Vol] 134 mg/dL High 74-99 [facility] Comment on above: Performed By: #### C BC, BMP ####[facility] [address] [place] [address] Lab Director: Kelechi Dueñas MD Potassium [Moles/Vol] 4.2 mmol/L Normal 3.7-5.3 [facility] Comment on above: Performed By: #### C BC, BMP ####[facility] [address] [place], [place] [phone] Director: Kelechi Dueñas MD Sodium [Moles/Vol] 138 mmol/L Normal 136-145 [facility] Comment on above: Performed By: #### C BC, BMP ####[facility] [address] [place], [place] [phone] Director: Kelechi Dueñas MD Urea nitrogen [Mass/Vol] 40 mg/dL High 8-23 [facility] Comment on above: Performed By: #### C BC, BMP ####[facility] [address] [place], [place] [phone] Director: Kelechi Dueñas MD CBCon 06-02-2024 Erythrocyte distribution width (RBC) [Ratio] 13.2 % 11.8 - 14.4 % [facility] Hematocrit (Bld) [Volume fraction] 24.6 % Low 40.7 - 50.3 % [facility] Hemoglobin (Bld) [Mass/Vol] 7.8 g/dL Low 13.0 - 17.0 g/dL [facility] Interpretation and review of laboratory results Abnormal [facility] MCH (RBC) [Entitic mass] 27.8 pg 25.2 - 33.5 pg [facility] MCHC (RBC) [Mass/Vol] 31.7 g/dL 28.4 - 34.8 g/dL [facility] MCV (RBC) [Entitic vol] 87.5 fL 82.6 - 102.9 fL [facility] Nucleated RBC/100 WBC (Bld) [Ratio] 0.0 % 0.0 per 100 WBC [facility] Platelet mean volume (Bld) [Entitic vol] 10.4 fL 8.1 - 13.5 fL [facility] Platelets (Bld) [#/Vol] 192 10*3/uL [facility] RBC (Bld) [#/Vol] 2.81 10*6/uL Low 4.21 - 5.77 m/uL [facility] WBC other (Bld) [#/Vol] 8.3 B ON [facility] Erythrocyte distribution width (RBC) [Ratio] 13.2 % Normal 11.8-14.4 [facility] Comment on above: Performed By: #### C BC, BMP ####[address] [address] Lab Director: Kelechi Dueñas MD Hematocrit (Bld) [Volume fraction] 24.6 % Low 40.7-50.3 [facility] Comment on above: Performed By: #### C BC, BMP ####[facility] [address] [place] [address] Lab Director: Kelechi Dueñas MD Hemoglobin (Bld) [Mass/Vol] 7.8 g/dL Low 13.0-17.0 [facility] Comment on above: Performed By: #### C BC, BMP ####[facility] [address] [place] [address] Lab Director: Kelechi Dueñas MD MCH (RBC) [Entitic mass] 27.8 pg Normal 25.2-33.5 [facility] Comment on above: Performed By: #### C BC, BMP ####[facility] [address] [place] [address] Lab Director: Kelechi Dueñas MD MCHC (RBC) [Mass/Vol] 31.7 g/dL Normal 28.4-34.8 [facility] Comment on above: Performed By: #### C BC, BMP ####[address] [phone] Director: Kelechi Dueñas MD MCV (RBC) [Entitic vol] 87.5 fL Normal 82.6-102.9 M [facility] Comment on above: Performed By: #### C BC, BMP ####[address] [phone] Director: Kelechi Dueñas MD NRBC Automated 0.0 per 100 WBC Normal 0.0 [facility] Comment on above: Performed By: #### C ZAIDA, BMP ####[address] [phone] Director: Kelechi Dueñas MD Platelet mean volume (Bld) [Entitic vol] 10.4 fL Normal 8.1-13.5 [facility] Comment on above: Performed By: #### C ZAIDA, BMP ####[address] [phone] Director: Kelechi Dueñas MD Platelets (Bld) [#/Vol] 192 10*3/uL Normal 138-453 [facility] Comment on above: Performed By: #### C BC, BMP ####[address] [phone] Director: Kelechi Dueñas MD RBC (Bld) [#/Vol] 2.81 10*6/uL Low 4.21-5.77 [facility] Comment on above: Performed By: #### C BC, BMP ####[address] [phone] Director: Kelechi Dueñas MD WBC (Bld) [#/Vol] 8.3 10*3/uL Normal 3.5-11.3 [facility] Comment on above: Performed By: #### C , [facility] ####[facility] [address] [place] [phone] lab Director: Kelechi Dueñas MD Glucose,Whole Bloodon 2023 Glucose [Mass/Vol] 256 mg/dL High 75-110 [facility] Glucose [Mass/Vol] 216 mg/dL High 75-110 [facility] Glucose [Mass/Vol] 146 mg/dL High 75-110 [facility] Glucose [Mass/Vol] 116 mg/dL High 75-110 [facility] POC Glucose Fingerstickon Glucose [Mass/Vol] 256 mg/dL High 75 - 110 mg/dL [facility] Interpretation and review of laboratory results Abnormal [facility] Glucose [Mass/Vol] 216 mg/dL High 75 - 110 mg/dL [facility] Interpretation and review of laboratory results Abnormal [facility] Glucose [Mass/Vol] 146 mg/dL High 75 - 110 mg/dL [facility] Interpretation and review of laboratory results Abnormal [facility] Glucose [Mass/Vol] 116 mg/dL High 75 - 110 mg/dL [facility] Interpretation and review of laboratory results Abnormal [facility] Basic Metabolic Panelon 05-07 Anion gap [Moles/Vol] 8 mmol/L Low 9 - 16 mmol/L [facility] Calcium [Mass/Vol] 8.1 mg/dL Low 8.6 - 10. 4 mg/dL [facility] Chloride [Moles/Vol] 107 mmol/L 98 - 10 7 mmol/L [facility] CO2 [Moles/Vol] 22 mmol/L 20 - 31 mmol/L [facility] Creatinine [Mass/Vol] 2.2 mg/dL High 0.70 - 1.20 mg/dL [facility] [employer] Est, Glom Filt Rate 30 Low - [facility] Glucose [Mass/Vol] 150 mg/dL High 74 - 99 mg/dL [facility] Interpretation and review of laboratory results Abnormal [facility] Potassium [Moles/Vol] 4.1 mmol/L 3.7 - 5.3 mmol/L [facility] Sodium [Moles/Vol] 137 mmol/L 136 - 145 mmol/L [facility] Urea nitrogen [Mass/Vol] 38 mg/dL High 8 - 23 mg/dL [facility] Basic Metabolic Profon 06-01 Anion gap [Moles/Vol] 8 mmol/L Low 9-16 [facility] Comment on above: Performed By: #### B MP, CBC ####[facility] [address] [place] [address] Lab Director: Kelechi Dueñas MD Calcium [Mass/Vol] 8.1 mg/dL Low 8.6-10.4 [facility] Comment on above: Performed By: #### B MP, CBC ####[facility] [address] [place] [address] Lab Director: Kelechi Dueñas MD Chloride [Moles/Vol] 107 mmol/L Normal 98-107 [facility] Comment on above: Performed By: #### B MP, CBC ####[facility] [address] [place] [address] Lab Director: Kelechi Dueñas MD CO2 [Moles/Vol] 22 mmol/L Normal 20-31 [facility] Comment on above: Performed By: #### B MP, CBC ####[facility] [address] [place] [address] Lab Director: Kelechi Dueñas MD Creatinine [Mass/Vol] 2.2 mg/dL High 0.70-1.20 [facility] Comment on above: Performed By: #### B MP, CBC ####[facility] [address] [place] [address] Lab Director: Kelechi Dueñas MD GFR/1.73 sq M.predicted among non-blacks MDRD (S/P/Bld) [Vol rate/Area] 30 mL/min/{1.73_m2} Low >60 [facility] Comment on above: Result Comment: These results are not intended for use in patients <18 years of age. eGFR results are calculated without a race factor using the 2020 CKD-EPI equation. Careful clinical correlation is recommended, particularly when comparing to results calculated using previous equations. The CKD-EPI equation is less accurate in patients with extremes of muscle mass, extra-renal metabolism of creatine, excessive creatine ingestion, or following therapy that affects renal tubular secretion. Performed By: #### B RUTHIE, CBC ####[facility] [address] [place] [address] Lab Director: Kelechi Dueñas MD Glucose [Mass/Vol] 150 mg/dL High 74-99 [facility] Comment on above: Performed By: #### B MP, CBC ####[facility] [address] [place] [address] [phone] Director: Kelechi Dueñas MD Potassium [Moles/Vol] 4.1 mmol/L Normal 3.7-5.3 [facility] Comment on above: Performed By: #### B MP, CBC ####[facility] [address] [place] [address] Lab Director: Kelechi Dueñas MD Sodium [Moles/Vol] 137 mmol/L Normal 136-145 [facility] Comment on above: Performed By: #### B MP, CBC ####[facility] [address] [place], [place] [phone] Director: Kelechi Dueñas MD Urea nitrogen [Mass/Vol] 38 mg/dL High 8-23 [facility] Comment on above: Performed By: #### B MP, CBC ####[facility] [address] [place], [place] [phone] Director: Kelechi Dueñas MD CBCon 06-01-2024 Erythrocyte distribution width (RBC) [Ratio] 13.0 % 11.8 - 14.4 % [facility] Hematocrit (Bld) [Volume fraction] 26.2 % Low 40.7 - 50.3 % [facility] Hemoglobin (Bld) [Mass/Vol] 8.2 g/dL Low 13.0 - 17.0 g/dL [facility] Interpretation and review of laboratory results Abnormal [facility] MCH (RBC) [Entitic mass] 27.7 pg 25.2 - 33.5 pg [facility] MCHC (RBC) [Mass/Vol] 31.3 g/dL 28.4 - 34.8 g/dL [facility] MCV (RBC) [Entitic vol] 88.5 fL 82.6 - 102.9 fL [facility] Nucleated RBC/100 WBC (Bld) [Ratio] 0.0 % 0.0 per 100 WBC [facility] Platelet mean volume (Bld) [Entitic vol] 10.9 fL 8.1 - 13.5 fL [facility] Platelets (Bld) [#/Vol] 222 10*3/uL [facility] RBC (Bld) [#/Vol] 2.96 10*6/uL Low 4.21 - 5.77 m/uL [facility] WBC other (Bld) [#/Vol] 8.9 B [facility] Erythrocyte distribution width (RBC) [Ratio] 13.0 % Normal 11.8-14.4 [facility] Comment on above: Performed By: #### B MP, CBC ####[facility] [address] [place], [place] [phone] Lab Director: Kelechi Dueñas MD Hematocrit (Bld) [Volume fraction] 26.2 % Low 40.7-50.3 [facility] Comment on above: Performed By: #### B MP, CBC ####[facility] [address] [place] [address] Lab Director: Kelechi Dueñas MD Hemoglobin (Bld) [Mass/Vol] 8.2 g/dL Low 13.0-17.0 [facility] Comment on above: Performed By: #### B MP, CBC ####[address] [phone] Director: Kelechi Dueñas MD MCH (RBC) [Entitic mass] 27.7 pg Normal 25.2-33.5 [facility] Comment on above: Performed By: #### B MP, CBC ####[address] [phone] Director: Kelechi Dueñas MD MCHC (RBC) [Mass/Vol] 31.3 g/dL Normal 28.4-34.8 [facility] Comment on above: Performed By: #### B MP, CBC ####[address] [phone] Director: Kelechi Dueñas MD MCV (RBC) [Entitic vol] 88.5 fL Normal 82.6-102.9 M [facility] Comment on above: Performed By: #### B MP, CBC ####[address] [phone] Director: Kelechi Dueñas MD NRBC Automated 0.0 per 100 WBC Normal 0.0 [facility] Comment on above: Performed By: #### B MP, CBC ####[address] [phone] Director: Kelechi Dueñas MD Platelet mean volume (Bld) [Entitic vol] 10.9 fL Normal 8.1-13.5 [facility] Comment on above: Performed By: #### B MP, CBC ####[place] [address] [place] [address] Lab Director: Kelechi Dueñas MD Platelets (Bld) [#/Vol] 222 10*3/uL Normal 138-453 [facility] Comment on above: Performed By: #### B MP, CBC ####[facility] [address] [place] [address] Lab Director: Kelechi Dueñas MD RBC (Bld) [#/Vol] 2.96 10*6/uL Low 4.21-5.77 [facility] Comment on above: Performed By: #### B MP, CBC ####[facility] [address] [place] [address] lab Director: Kelechi Dueñas MD WBC (Bld) [#/Vol] 8.9 10*3/uL Normal 3.5-11.3 [facility] Comment on above: Performed By: #### B MP, CBC ####[facility] [address] [place] [address] lab Director: Kelechi Dueñas MD Glucose,Whole Bloodon 2023 Glucose [Mass/Vol] 189 mg/dL High 75-110 [facility] Glucose [Mass/Vol] 207 mg/dL High 75-110 [facility] Glucose [Mass/Vol] 154 mg/dL High 75-110 [facility] Glucose [Mass/Vol] 130 mg/dL High 75-110 [facility] POC Glucose Fingerstickon Glucose [Mass/Vol] 189 mg/dL High 75 - 110 mg/dL [facility] [employer] Interpretation and review of laboratory results Abnormal [facility] Glucose [Mass/Vol] 207 mg/dL High 75 - 110 mg/dL [facility] [employer] Interpretation and review of laboratory results Abnormal [facility] Glucose [Mass/Vol] 154 mg/dL High 75 - 110 mg/dL [facility] Interpretation and review of laboratory results Abnormal [facility] [employer] Glucose [Mass/Vol] 130 mg/dL High 75 - 110 mg/dL [facility] [employer] Interpretation and review of laboratory results Abnormal [facility] Basic Metabolic Panelon 05-07 Anion gap [Moles/Vol] 8 mmol/L Low 9 - 16 mmol/L [facility] Calcium [Mass/Vol] 8.2 mg/dL Low 8.6 - 10. 4 mg/dL [facility] Chloride [Moles/Vol] 109 mmol/L High 98 - 10 7 mmol/L [facility] CO2 [Moles/Vol] 21 mmol/L 20 - 31 mmol/L [facility] Creatinine [Mass/Vol] 2.2 mg/dL High 0.70 - 1.20 mg/dL [facility] Est, Glom Filt Rate 30 Low - [facility] Glucose [Mass/Vol] 169 mg/dL High 74 - 99 mg/dL [facility] Interpretation and review of laboratory results Abnormal [facility] Potassium [Moles/Vol] 4.0 mmol/L 3.7 - 5.3 mmol/L [facility] Sodium [Moles/Vol] 138 mmol/L 136 - 145 mmol/L [facility] Urea nitrogen [Mass/Vol] 49 mg/dL High 8 - 23 mg/dL [facility] Basic Metabolic Profon 05-31 Anion gap [Moles/Vol] 8 mmol/L Low 9-16 [facility] Comment on above: Performed By: #### B MP, CBC ####[facility] [address] [place] [address] Lab Director: Kelechi Dueñas MD Calcium [Mass/Vol] 8.2 mg/dL Low 8.6-10.4 [facility] Comment on above: Performed By: #### B MP, CBC ####[facility] [address] [place] [id number] Lab Director: Kelechi Dueñas MD Chloride [Moles/Vol] 109 mmol/L High 98-107 [facility] Comment on above: Performed By: #### B MP, CBC ####[address] [address] Lab Director: Kelechi Dueñas MD CO2 [Moles/Vol] 21 mmol/L Normal 20-31 [facility] Comment on above: Performed By: #### B MP, CBC ####[address] [phone] Director: Kelechi Dueñas MD Creatinine [Mass/Vol] 2.2 mg/dL High 0.70-1.20 [facility] Comment on above: Performed By: #### B RUTHIE, CBC ####[address] [address])[phone] Director: Kelechi Dueñas MD GFR/1.73 sq M.predicted among non-blacks MDRD (S/P/Bld) [Vol rate/Area] 30 mL/min/{1.73_m2} Low >60 [facility] Comment on above: Result Comment: These results are not intended for use in patients <18 years of age. eGFR results are calculated without a race factor using the 2020 CKD-EPI equation. Careful clinical correlation is recommended, particularly when comparing to results calculated using previous equations. The CKD-EPI equation is less accurate in patients with extremes of muscle mass, extra-renal metabolism of creatine, excessive creatine ingestion, or following therapy that affects renal tubular secretion. Performed By: #### B RUTHIE, CBC ####[address] [address])[phone] Director: Kelechi Dueñas MD Glucose [Mass/Vol] 169 mg/dL High 74-99 [facility] Comment on above: Performed By: #### B MP, CBC ####[address] [address])[phone] Director: Kelechi Dueñas MD Potassium [Moles/Vol] 4.0 mmol/L Normal 3.7-5.3 [facility] Comment on above: Performed By: #### B RUTHIE, CBC ####[address] [id number] lab Director: Kelechi Dueñas MD Sodium [Moles/Vol] 138 mmol/L Normal 136-145 [facility] Comment on above: Performed By: #### B MP, CBC ####[facility] [address] [place], [place] [phone] lab Director: Kelechi Dueñas MD Urea nitrogen [Mass/Vol] 49 mg/dL High 8-23 [facility] Comment on above: Performed By: #### B MP, CBC ####[facility] [address] [place] [address] lab Director: Kelechi Dueñas MD CBCon 05-31-2024 Erythrocyte distribution width (RBC) [Ratio] 13.0 % 11.8 - 14.4 % [facility] Hematocrit (Bld) [Volume fraction] 28.5 % Low 40.7 - 50.3 % [facility] Hemoglobin (Bld) [Mass/Vol] 8.9 g/dL Low 13.0 - 17.0 g/dL [facility] Interpretation and review of laboratory results Abnormal [facility] MCH (RBC) [Entitic mass] 28.1 pg 25.2 - 33.5 pg [facility] MCHC (RBC) [Mass/Vol] 31.2 g/dL 28.4 - 34.8 g/dL [facility] MCV (RBC) [Entitic vol] 89.9 fL 82.6 - 102.9 fL [facility] Nucleated RBC/100 WBC (Bld) [Ratio] 0.0 % 0.0 per 100 WBC [facility] Platelet mean volume (Bld) [Entitic vol] 10.4 fL 8.1 - 13.5 fL [facility] Platelets (Bld) [#/Vol] 196 10*3/uL [facility] RBC (Bld) [#/Vol] 3.17 10*6/uL Low 4.21 - 5.77 m/uL [facility] WBC other (Bld) [#/Vol] 8.4 B [facility] Erythrocyte distribution width (RBC) [Ratio] 13.0 % Normal 11.8-14.4 [facility] Comment on above: Performed By: #### B MP, CBC ####[facility] [address] [place] [address] Lab Director: Kelechi Dueñas MD Hematocrit (Bld) [Volume fraction] 28.5 % Low 40.7-50.3 [facility] Comment on above: Performed By: #### B MP, CBC ####[facility] Cdp[address]ctigsbnm39[address] [place] [address] Lab Director: Kelechi Dueñas MD Hemoglobin (Bld) [Mass/Vol] 8.9 g/dL Low 13.0-17.0 [facility] Comment on above: Performed By: #### B MP, CBC ####[address] [phone] Director: Kelechi Dueñas MD MCH (RBC) [Entitic mass] 28.1 pg Normal 25.2-33.5 [facility] Comment on above: Performed By: #### B MP, CBC ####[address] [phone] Director: Kelechi Dueñas MD MCHC (RBC) [Mass/Vol] 31.2 g/dL Normal 28.4-34.8 [facility] Comment on above: Performed By: #### B MP, CBC ####[facility] [address] [place], [place] [phone] Director: Kelechi Dueñas MD MCV (RBC) [Entitic vol] 89.9 fL Normal 82.6-102.9 [facility] Comment on above: Performed By: #### B MP, CBC ####[facility] [address]tp[address]1734 [place] [address] Lab Director: Kelechi Dueñas MD NRBC Automated 0.0 per 100 WBC Normal 0.0 [facility] Comment on above: Performed By: #### B MP, CBC ####[facility] Nqhbwrvytrfs5787 [place], [place] [phone] Director: Kelechi Dueñas MD Platelet mean volume (Bld) [Entitic vol] 10.4 fL Normal 8.1-13.5 [facility] Comment on above: Performed By: #### B MP, CBC ####[facility] Ipsvsghdwwcc99[address] [place], [place] [phone] Director: Kelechi Dueñas MD Platelets (Bld) [#/Vol] 196 10*3/uL Normal 138-453 [facility] Comment on above: Performed By: #### B MP, CBC ####[facility] [address] [place], [place] [phone] Director: Kelechi Dueñas MD RBC (Bld) [#/Vol] 3.17 10*6/uL Low 4.21-5.77 [facility] Comment on above: Performed By: #### B MP, CBC ####[facility] [address]om[address] [place], [place] [phone] Director: Kelechi Dueñas MD WBC (Bld) [#/Vol] 8.4 10*3/uL Normal 3.5-11.3 [facility] Comment on above: Performed By: #### B MP, CBC ####[facility] [address] [place], [place] [phone] Director: Kelechi Dueñas MD Glucose,Whole Bloodon 2023 Glucose [Mass/Vol] 209 mg/dL High 75-110 [facility] Glucose [Mass/Vol] 137 mg/dL High 75-110 [facility] Glucose [Mass/Vol] 85 mg/dL Normal 75-110 [facility] Glucose [Mass/Vol] 110 mg/dL Normal 75-110 [facility] POC Glucose Fingerstickon Glucose [Mass/Vol] 209 mg/dL High 75 - 110 mg/dL [facility] Interpretation and review of laboratory results Abnormal [facility] Glucose [Mass/Vol] 137 mg/dL High 75 - 110 mg/dL [facility] Interpretation and review of laboratory results Abnormal [facility] Glucose [Mass/Vol] 85 mg/dL 75 - 110 mg/dL [facility] Glucose [Mass/Vol] 110 mg/dL 75 - 110 mg/dL [facility] Basic Metabolic Panelon 05-07 Anion gap [Moles/Vol] 8 mmol/L Low 9 - 16 mmol/L [facility] Calcium [Mass/Vol] 7.9 mg/dL Low 8.6 - 10. 4 mg/dL [facility] Chloride [Moles/Vol] 107 mmol/L 98 - 10 7 mmol/L [facility] CO2 [Moles/Vol] 20 mmol/L 20 - 31 mmol/L [facility] Creatinine [Mass/Vol] 2.2 mg/dL High 0.70 - 1.20 mg/dL [facility] Est, Glom Filt Rate 30 Low - PINF [facility] Glucose [Mass/Vol] 128 mg/dL High 74 - 99 mg/dL [facility] Interpretation and review of laboratory results Abnormal [facility] Potassium [Moles/Vol] 3.9 mmol/L 3.7 - 5.3 mmol/L [facility] Sodium [Moles/Vol] 135 mmol/L Low 136 - 145 mmol/L [facility] Urea nitrogen [Mass/Vol] 53 mg/dL High 8 - 23 mg/dL [facility] Basic Metabolic Profon 05-30 Anion gap [Moles/Vol] 8 mmol/L Low 9-16 [facility] Comment on above: Performed By: #### C , BMP ####[place] [address] Lab Director: Kelechi Dueñas MD Calcium [Mass/Vol] 7.9 mg/dL Low 8.6-10.4 [facility] Comment on above: Performed By: #### C BC, BMP ####[address] [phone] Director: Kelechi Dueñas MD Chloride [Moles/Vol] 107 mmol/L Normal 98-107 [facility] Comment on above: Performed By: #### C BC, BMP ####[address] [phone] Director: Kelechi Dueñas MD CO2 [Moles/Vol] 20 mmol/L Normal 20-31 [facility] Comment on above: Performed By: #### C ZAIDA, BMP ####[address] [phone] Director: Kelechi Dueñas MD Creatinine [Mass/Vol] 2.2 mg/dL High 0.70-1.20 [facility] Comment on above: Performed By: #### C ZAIDA, BMP ####[address] [phone] Director: Kelechi Dueñas MD GFR/1.73 sq M.predicted among non-blacks MDRD (S/P/Bld) [Vol rate/Area] 30 mL/min/{1.73_m2} Low >60 [facility] Comment on above: Result Comment: These results are not intended for use in patients <18 years of age. eGFR results are calculated without a race factor using the 2020 CKD-EPI equation. Careful clinical correlation is recommended, particularly when comparing to results calculated using previous equations. The CKD-EPI equation is less accurate in patients with extremes of muscle mass, extra-renal metabolism of creatine, excessive creatine ingestion, or following therapy that affects renal tubular secretion. Performed By: #### C BC, BMP ####[address] [phone] Director: Kelechi Dueñas MD Glucose [Mass/Vol] 128 mg/dL High 74-99 [facility] Comment on above: Performed By: #### C BC, BMP ####[facility] [address]ft[address] [place] [address] lab Director: Kelechi Dueñas MD Potassium [Moles/Vol] 3.9 mmol/L Normal 3.7-5.3 [facility] Comment on above: Performed By: #### C BC, BMP ####[facility] Qpatxrsmujnh8454 [place] [address] lab Director: Kelechi Dueñas MD Sodium [Moles/Vol] 135 mmol/L Low 136-145 [facility] Comment on above: Performed By: #### C ZAIDA, BMP ####[facility] [address]otzqbfyxpj2447 [place] [address] Lab Director: Kelechi Dueñas MD Urea nitrogen [Mass/Vol] 53 mg/dL High 8-23 [facility] Comment on above: Performed By: #### C BC, BMP ####[facility] L[address]uyrozi2917 [place] [address] Lab Director: Kelechi Dueñas MD CBCon 05-30-2024 Erythrocyte distribution width (RBC) [Ratio] 13.1 % 11.8 - 14.4 % [facility] Hematocrit (Bld) [Volume fraction] 25.2 % Low 40.7 - 50.3 % [facility] Hemoglobin (Bld) [Mass/Vol] 7.8 g/dL Low 13.0 - 17.0 g/dL [facility] Interpretation and review of laboratory results Abnormal [facility] MCH (RBC) [Entitic mass] 27.7 pg 25.2 - 33.5 pg [facility] MCHC (RBC) [Mass/Vol] 31.0 g/dL 28.4 - 34.8 g/dL [facility] MCV (RBC) [Entitic vol] 89.4 fL 82.6 - 102.9 fL [facility] Nucleated RBC/100 WBC (Bld) [Ratio] 0.0 % 0.0 per 100 WBC [facility] Platelet mean volume (Bld) [Entitic vol] 10.6 fL 8.1 - 13.5 fL [facility] Platelets (Bld) [#/Vol] 176 10*3/uL [facility] RBC (Bld) [#/Vol] 2.82 10*6/uL Low 4.21 - 5.77 m/uL [facility] WBC other (Bld) [#/Vol] 9.7 B ON [facility] Erythrocyte distribution width (RBC) [Ratio] 13.1 % Normal 11.8-14.4 [facility] Comment on above: Performed By: #### C BC, BMP ####[place] [address] Lab Director: Kelechi Dueñas MD Hematocrit (Bld) [Volume fraction] 25.2 % Low 40.7-50.3 [facility] Comment on above: Performed By: #### C BC, BMP ####[facility] [address] [place] [address] Lab Director: Kelechi Dueñas MD Hemoglobin (Bld) [Mass/Vol] 7.8 g/dL Low 13.0-17.0 [facility] Comment on above: Performed By: #### C BC, BMP ####[facility] [address] [place] [address] Lab Director: Kelechi Dueñas MD MCH (RBC) [Entitic mass] 27.7 pg Normal 25.2-33.5 [facility] Comment on above: Performed By: #### C BC, BMP ####[facility] Fqqxzffdauqn5357 [place] [address] Lab Director: Kelechi Dueñas MD MCHC (RBC) [Mass/Vol] 31.0 g/dL Normal 28.4-34.8 [facility] Comment on above: Performed By: #### C BC, BMP ####[facility] [address] [place], [place] [phone] Director: Kelechi Dueñas MD MCV (RBC) [Entitic vol] 89.4 fL Normal 82.6-102.9 M [facility] Comment on above: Performed By: #### C BC, BMP ####[facility] [address] [place] [address] [phone] Director: Kelechi Dueñas MD NRBC Automated 0.0 per 100 WBC Normal 0.0 [facility] Comment on above: Performed By: #### C BC, BMP ####[address] [phone] Director: Kelechi Dueñas MD Platelet mean volume (Bld) [Entitic vol] 10.6 fL Normal 8.1-13.5 [facility] Comment on above: Performed By: #### C BC, BMP ####[facility] [address] [place] [address] [phone] Director: Kelechi Dueñas MD Platelets (Bld) [#/Vol] 176 10*3/uL Normal 138-453 [facility] Comment on above: Performed By: #### C BC, BMP ####[facility] [place] [address] [phone] Director: Kelechi Dueñas MD RBC (Bld) [#/Vol] 2.82 10*6/uL Low 4.21-5.77 [facility] Comment on above: Performed By: #### C BC, BMP ####[facility] [address] [place] [address] Lab Director: Kelechi Dueñas MD WBC (Bld) [#/Vol] 9.7 10*3/uL Normal 3.5-11.3 [facility] Comment on above: Performed By: #### C BC, BMP ####[facility] [place] [address] lab Director: Kelechi Dueñas MD Glucose,Whole Bloodon 2023 Glucose [Mass/Vol] 157 mg/dL High 75-110 [facility] Glucose [Mass/Vol] 143 mg/dL High 75-110 [facility] Glucose [Mass/Vol] 88 mg/dL Normal 75-110 [facility] Glucose [Mass/Vol] 88 mg/dL Normal 75-110 [facility] Glucose [Mass/Vol] 83 mg/dL Normal 75-110 [facility] POC Glucose Fingerstickon Glucose [Mass/Vol] 157 mg/dL High 75 - 110 mg/dL [facility] Interpretation and review of laboratory results Abnormal [facility] [employer] [facility] Glucose [Mass/Vol] 143 mg/dL High 75 - 110 mg/dL [facility] Interpretation and review of laboratory results Abnormal [facility] [facility] [employer] [facility] Glucose [Mass/Vol] 88 mg/dL 75 - 110 mg/dL [facility] Glucose [Mass/Vol] 88 mg/dL 75 - 110 mg/dL [facility] [employer] [facility] Glucose [Mass/Vol] 83 mg/dL 75 - 110 mg/dL [facility] SE[facility] [employer] [facility] SE[facility] [employer] [facility] Basic Metabolic Panelon 05-07 Anion gap [Moles/Vol] 7 mmol/L Low 9 - 16 mmol/L [facility] [employer] [facility] Calcium [Mass/Vol] 8.0 mg/dL Low 8.6 - 10. 4 mg/dL [facility] [employer] [facility] Chloride [Moles/Vol] 111 mmol/L High 98 - 10 7 mmol/L [facility] CO2 [Moles/Vol] 21 mmol/L 20 - 31 mmol/L [facility] Creatinine [Mass/Vol] 2.0 mg/dL High 0.70 - 1.20 mg/dL [facility] [employer] Est, Glom Filt Rate 34 Low - PINF [facility] Glucose [Mass/Vol] 72 mg/dL Low 74 - 99 mg/dL [facility] Interpretation and review of laboratory results Abnormal [facility] Potassium [Moles/Vol] 3.7 mmol/L 3.7 - 5.3 mmol/L [facility] Sodium [Moles/Vol] 139 mmol/L 136 - 145 mmol/L [facility] Urea nitrogen [Mass/Vol] 52 mg/dL High 8 - 23 mg/dL [facility] Basic Metabolic Profon 05-29 Anion gap [Moles/Vol] 7 mmol/L Low 9-16 [facility] Comment on above: Performed By: #### C BC, BMP ####[facility] [address]ulzpfzrr11[address] [place], [place] [phone] Director: Kelechi Dueñas MD Calcium [Mass/Vol] 8.0 mg/dL Low 8.6-10.4 [facility] Comment on above: Performed By: #### C BC, BMP ####[facility] [address] [place], [place] [phone] Director: Kelechi Dueñas MD Chloride [Moles/Vol] 111 mmol/L High 98-107 [facility] Comment on above: Performed By: #### C BC, BMP ####[facility] [address] [place], [place] [phone] Director: Kelechi Dueñas MD CO2 [Moles/Vol] 21 mmol/L Normal 20-31 [facility] Comment on above: Performed By: #### C BC, BMP ####[facility] [address]zp[address] [place], [place] [phone] Director: Kelechi Dueñas MD Creatinine [Mass/Vol] 2.0 mg/dL High 0.70-1.20 [facility] Comment on above: Performed By: #### C BC, BMP ####[facility] R[address]ilt[address]v6083 [place], [place] [phone] Director: Kelechi Dueñas MD GFR/1.73 sq M.predicted among non-blacks MDRD (S/P/Bld) [Vol rate/Area] 34 mL/min/{1.73_m2} Low >60 [facility] Comment on above: Result Comment: These results are not intended for use in patients <18 years of age. eGFR results are calculated without a race factor using the 2020 CKD-EPI equation. Careful clinical correlation is recommended, particularly when comparing to results calculated using previous equations. The CKD-EPI equation is less accurate in patients with extremes of muscle mass, extra-renal metabolism of creatine, excessive creatine ingestion, or following therapy that affects renal tubular secretion. Performed By: #### C ZAIDA, BMP ####[facility] [address] [place] [address] [phone] Director: Kelechi Dueñas MD Glucose [Mass/Vol] 72 mg/dL Low 74-99 [facility] Comment on above: Performed By: #### C BC, BMP ####[facility] [address] [place] [address] [phone] Director: Kelechi Dueñas MD Potassium [Moles/Vol] 3.7 mmol/L Normal 3.7-5.3 [facility] Comment on above: Performed By: #### C BC, BMP ####[facility] [address] [place] [address] [phone] Director: Kelechi Dueñas MD Sodium [Moles/Vol] 139 mmol/L Normal 136-145 [facility] Comment on above: Performed By: #### C BC, BMP ####[facility] [address]audqpa1494 [place], [place] [phone] Director: Kelechi Dueñas MD Urea nitrogen [Mass/Vol] 52 mg/dL High 8-23 [facility] Comment on above: Performed By: #### C ZAIDA, BMP ####[facility] [address] [place] [address] [phone] Director: Kelechi Dueñas MD CBCon 05-29-2024 Erythrocyte distribution width (RBC) [Ratio] 12.9 % 11.8 - 14.4 % [facility] Hematocrit (Bld) [Volume fraction] 27.6 % Low 40.7 - 50.3 % [facility] Hemoglobin (Bld) [Mass/Vol] 8.8 g/dL Low 13.0 - 17.0 g/dL [facility] Interpretation and review of laboratory results Abnormal [facility] MCH (RBC) [Entitic mass] 27.9 pg 25.2 - 33.5 pg [facility] MCHC (RBC) [Mass/Vol] 31.9 g/dL 28.4 - 34.8 g/dL [facility] MCV (RBC) [Entitic vol] 87.6 fL 82.6 - 102.9 fL [facility] Nucleated RBC/100 WBC (Bld) [Ratio] 0.0 % 0.0 per 100 WBC [facility] Platelet mean volume (Bld) [Entitic vol] 10.8 fL 8.1 - 13.5 fL [facility] Platelets (Bld) [#/Vol] 197 10*3/uL [facility] RBC (Bld) [#/Vol] 3.15 10*6/uL Low 4.21 - 5.77 m/uL [facility] WBC other (Bld) [#/Vol] 10.6 B ON [facility] Erythrocyte distribution width (RBC) [Ratio] 12.9 % Normal 11.8-14.4 [facility] Comment on above: Performed By: #### C BC, BMP ####[facility] [address] [place], [place] [id number] Lab Director: Kelechi Dueñas MD Hematocrit (Bld) [Volume fraction] 27.6 % Low 40.7-50.3 [facility] Comment on above: Performed By: #### C BC, BMP ####[facility] [address] [place], [place] [id number] Lab Director: Kelechi Dueñas MD Hemoglobin (Bld) [Mass/Vol] 8.8 g/dL Low 13.0-17.0 [facility] Comment on above: Performed By: #### C BC, BMP ####[address] [phone] Director: Kelechi Dueñas MD MCH (RBC) [Entitic mass] 27.9 pg Normal 25.2-33.5 [facility] Comment on above: Performed By: #### C BC, BMP ####[address] [phone] Director: Kelechi Dueñas MD MCHC (RBC) [Mass/Vol] 31.9 g/dL Normal 28.4-34.8 [facility] Comment on above: Performed By: #### C BC, BMP ####[address] [phone] Director: Kelechi Dueñas MD MCV (RBC) [Entitic vol] 87.6 fL Normal 82.6-102.9 [facility] Comment on above: Performed By: #### C BC, BMP ####[address] [phone] Director: Kelechi Dueñas MD NRBC Automated 0.0 per 100 WBC Normal 0.0 [facility] Comment on above: Performed By: #### C BC, BMP ####[address] [phone] Director: Kelechi Dueñas MD Platelet mean volume (Bld) [Entitic vol] 10.8 fL Normal 8.1-13.5 [facility] Comment on above: Performed By: #### C BC, BMP ####[facility] [address] [place], [place] [phone] Director: Kelechi Dueñas MD Platelets (Bld) [#/Vol] 197 10*3/uL Normal 138-453 [facility] Comment on above: Performed By: #### C BC, BMP ####[facility] [address]fxzxp[address] [place] [address] Lab Director: Kelechi Dueñas MD RBC (Bld) [#/Vol] 3.15 10*6/uL Low 4.21-5.77 [facility] Comment on above: Performed By: #### C BC, BMP ####[facility] [address]yh[address] [place] [address] lab Director: Kelechi Dueñas MD WBC (Bld) [#/Vol] 10.6 10*3/uL Normal 3.5-11.3 [facility] Comment on above: Performed By: #### C BC, BMP ####[facility] [address]tnzv[address] [place] [address] lab Director: Kelechi Dueñas MD Cult, Bloodon 05-29-2024 Cult, Blood Specimen Description .BLOOD Special Requests R FOREARM 10ML Culture NO GROWTH 5 DAYS Report Status FINAL 05/29/2024 Normal [facility] Comment on above: Performed By: #### B CUL2 ####[facility] [address] [place] [address] lab Director: Kelechi Dueñas MD Culture, Blood 2on 4 Microorganism identified Cx Nom (Unsp spec) NO GROWTH 5 DAYS [facility] Service comment (Unsp spec) [Interp] R FOREARM 10ML [facility] [employer] Specimen Description .BLOOD [facility] Glucose,Whole Bloodon 2023 Glucose [Mass/Vol] 121 mg/dL High 75-110 [facility] Glucose [Mass/Vol] 96 mg/dL Normal 75-110 [facility] Glucose [Mass/Vol] 95 mg/dL Normal 75-110 [facility] Glucose [Mass/Vol] 90 mg/dL Normal 75-110 [facility] Glucose [Mass/Vol] 63 mg/dL Low 75-110 [facility] POC Glucose Fingerstickon Glucose [Mass/Vol] 121 mg/dL High 75 - 110 mg/dL [facility] Interpretation and review of laboratory results Abnormal [facility] Glucose [Mass/Vol] 96 mg/dL 75 - 110 mg/dL [facility] Glucose [Mass/Vol] 95 mg/dL 75 - 110 mg/dL [facility] Glucose [Mass/Vol] 90 mg/dL 75 - 110 mg/dL [facility] Glucose [Mass/Vol] 63 mg/dL Low 75 - 110 mg/dL [facility] Interpretation and review of laboratory results Abnormal [facility] Basic Metab w/rfx MGon 05-28 Anion gap [Moles/Vol] 10 mmol/L Normal 9-16 [facility] Comment on above: Performed By: #### B MPX, CDP ####[facility] [employer] [address]xqb[address] [place] [address] Lab Director: Kelechi Dueñas MD Calcium [Mass/Vol] 8.0 mg/dL Low 8.6-10.4 [facility] Comment on above: Performed By: #### B MPX, CDP ####[facility] [address]clu[address] [place] [address] Lab Director: Kelechi Dueñas MD Chloride [Moles/Vol] 112 mmol/L High 98-107 [facility] Comment on above: Performed By: #### B MPX, CDP ####[facility] [address]mq[address] [place] [address] Lab Director: Kelechi Dueñas MD CO2 [Moles/Vol] 16 mmol/L Low 20-31 [facility] Comment on above: Performed By: #### B MPX, CDP ####[facility] [address]vsbiouvw[address] [place] [address] Lab Director: Kelechi Dueñas MD Creatinine [Mass/Vol] 1.9 mg/dL High 0.70-1.20 [facility] Comment on above: Performed By: #### B MPX, CDP ####[facility] [address] [place] [address] [phone] Director: Kelechi Dueñas MD GFR/1.73 sq M.predicted among non-blacks MDRD (S/P/Bld) [Vol rate/Area] 36 mL/min/{1.73_m2} Low >60 [facility] Comment on above: Result Comment: These results are not intended for use in patients <18 years of age. eGFR results are calculated without a race factor using the 2020 CKD-EPI equation. Careful clinical correlation is recommended, particularly when comparing to results calculated using previous equations. The CKD-EPI equation is less accurate in patients with extremes of muscle mass, extra-renal metabolism of creatine, excessive creatine ingestion, or following therapy that affects renal tubular secretion. Performed By: #### B MPX, CDP ####[facility] [address] [place], [place] [phone] Director: Kelechi Dueñas MD Glucose [Mass/Vol] 198 mg/dL High 74-99 [facility] Comment on above: Performed By: #### B MPX, CDP ####[facility] [address] [place] [address] [phone] Director: Kelechi Dueñas MD Potassium [Moles/Vol] 4.8 mmol/L Normal 3.7-5.3 [facility] Comment on above: Performed By: #### B MPX, CDP ####[facility] [address] [place], [place] [phone] Director: Kelechi Dueñas MD Sodium [Moles/Vol] 138 mmol/L Normal 136-145 [facility] Comment on above: Performed By: #### B MPX, CDP ####[facility] [address] [place] [address] [phone] lab Director: Kelechi Dueñas MD Urea nitrogen [Mass/Vol] 58 mg/dL High 8-23 [facility] Comment on above: Performed By: #### B MPX, CDP ####[facility] [address]ky[address] [place], [place] [id number] lab Director: Kelechi Dueñas MD Basic Metabolic Panel w/ Ref ervin to MGon 05-28-2024 Anion gap [Moles/Vol] 10 mmol/L 9 - 16 mmol/L [facility] Calcium [Mass/Vol] 8.0 mg/dL Low 8.6 - 10. 4 mg/dL [facility] Chloride [Moles/Vol] 112 mmol/L High 98 - 10 7 mmol/L [facility] CO2 [Moles/Vol] 16 mmol/L Low 20 - 31 mmol/L [facility] Creatinine [Mass/Vol] 1.9 mg/dL High 0.70 - 1.20 mg/dL [facility] Est, Glom Filt Rate 36 Low - [facility] Glucose [Mass/Vol] 198 mg/dL High 74 - 99 mg/dL [facility] Interpretation and review of laboratory results Abnormal [facility] Potassium [Moles/Vol] 4.8 mmol/L 3.7 - 5.3 mmol/L [facility] Sodium [Moles/Vol] 138 mmol/L 136 - 145 mmol/L [facility] Urea nitrogen [Mass/Vol] 58 mg/dL High 8 - 23 mg/dL [facility] CBC with Auto Differentialon 05-28-2024 Basophils (Bld) [#/Vol] 0.00 10*3/uL [facility] Basophils/100 WBC (Bld) 0 % 0 - 2 % B ON [facility] Eosinophils (Bld) [#/Vol] 0.00 10*3/uL [facility] Eosinophils/100 WBC (Bld) 0 % Low 1 - 4 % [facility] Erythrocyte distribution width (RBC) [Ratio] 12.8 % 11.8 - 14.4 % [facility] Hematocrit (Bld) [Volume fraction] 32.1 % Low 40.7 - 50.3 % [facility] Hemoglobin (Bld) [Mass/Vol] 9.1 g/dL Low 13.0 - 17.0 g/dL [facility] Immature granulocytes (Bld) [#/Vol] 0.13 10*3/uL [facility] Immature granulocytes/100 WBC (Bld) 1 % High 0 [facility] Interpretation and review of laboratory results Abnormal [facility] Lymphocytes/100 WBC (Bld) 8 % Low 24 - 43 % [facility] Lymphocytes/100 WBC (Bld) 1.01 % Low [facility] MCH (RBC) [Entitic mass] 28.0 pg 25.2 - 33.5 pg [facility] MCHC (RBC) [Mass/Vol] 28.3 g/dL Low 28.4 - 34.8 g/dL [facility] MCV (RBC) [Entitic vol] 98.8 fL 82.6 - 102.9 fL [facility] Monocytes/100 WBC (Bld) 10 % 3 - 12 % B ON [facility] Monocytes/100 WBC (Bld) 1.26 % High B ON [facility] Morphology Gerardo (Bld) [Interp] HYPOCHROMIA PRESENT [facility] Neutrophils/100 WBC (Bld) 81 % High 36 - 65 % [facility] Nucleated RBC/100 WBC (Bld) [Ratio] 0.0 % 0.0 per 100 WBC [facility] Platelet mean volume (Bld) [Entitic vol] 10.4 fL 8.1 - 13.5 fL [facility] Platelets (Bld) [#/Vol] 189 10*3/uL [facility] RBC (Bld) [#/Vol] 3.25 10*6/uL Low 4.21 - 5.77 m/uL [facility] Segmented neutrophils/100 WBC (Bld) 10.20 % High [facility] WBC other (Bld) [#/Vol] 12.6 High B ON [facility] CBC with Diffon 05-28-2024 Abs. Basophil 0.00 k/uL Normal 0.00-0.20 [facility] Comment on above: Performed By: #### B MPX, CDP ####[address] [id number])[phone] Director: Kelechi Dueñas MD Abs.Imm.Granulocyte 0.13 k/uL Normal 0.00-0.30 [facility] Comment on above: Performed By: #### B MPX, CDP ####[facility] [address] [place] [address])[phone] Director: Kelechi Dueñas MD Abs.Neutrophil (Seg) 10.20 k/uL High 1.50-8.10 [facility] Comment on above: Performed By: #### B MPX, CDP ####[place], [place] [address])[phone] Director: Kelechi Dueñas MD Basophils/100 WBC (Bld) 0 % Normal 0-2 [facility] Comment on above: Performed By: #### B MPX, CDP ####[place], [place] [address])[phone] Director: Kelechi Dueñas MD Eosinophils (Bld) [#/Vol] 0.00 10*3/uL Normal 0.00-0.44 [facility] Comment on above: Performed By: #### B MPX, CDP ####[place], [place] [address])[phone] Director: Kelechi Dueñas MD Eosinophils/100 WBC (Bld) 0 % Low 1-4 [facility] Comment on above: Performed By: #### B MPX, CDP ####[address] [address])[phone] Director: Kelechi Dueñas MD Immature granulocytes/100 WBC (Bld) 1 % High 0 [facility] Comment on above: Performed By: #### B MPX, CDP ####[facility] [address] [place] [address] Lab Director: Kelechi Dueñas MD Lymphocytes (Bld) [#/Vol] 1.01 10*3/uL Low 1.10-3.70 [facility] Comment on above: Performed By: #### B MPX, CDP ####[facility] [address] [place] [address] Lab Director: Kelechi Dueñas MD Lymphocytes/100 WBC (Bld) 8 % Low 24-43 [facility] Comment on above: Performed By: #### B MPX, CDP ####[facility] [address] [place] [address] Lab Director: Kelechi Dueñas MD Monocytes (Bld) [#/Vol] 1.26 10*3/uL High 0.10-1.20 [facility] Comment on above: Performed By: #### B MPX, CDP ####[facility] [address] [place] [address] Lab Director: Kelechi Dueñas MD Monocytes/100 WBC (Bld) 10 % Normal 3-12 M [facility] Comment on above: Performed By: #### B MPX, CDP ####[address] [address] Lab Director: Kelechi Dueñas MD Morphology Gerardo (Bld) [Interp] HYPOCHROMIA PRESENT Normal [facility] Comment on above: Performed By: #### B MPX, CDP ####[facility] [address] [place] [address] Lab Director: Kelechi Dueñas MD Neutrophil (Seg) 81 % High 36-65 [place] Comment on above: Performed By: #### B MPX, CDP ####[facility] [address] [place], [place] [id number] lab Director: Kelechi Dueñas MD Erythrocyte distribution width (RBC) [Ratio] 12.8 % Normal 11.8-14.4 [facility] Comment on above: Performed By: #### B MPX, CDP ####[facility] [address] [place] [address] Lab Director: Kelechi Dueñas MD Hematocrit (Bld) [Volume fraction] 32.1 % Low 40.7-50.3 [facility] Comment on above: Performed By: #### B MPX, CDP ####[facility] [address] [place] [address] [facility] Director: Kelechi Dueñas MD Hemoglobin (Bld) [Mass/Vol] 9.1 g/dL Low 13.0-17.0 [facility] Comment on above: Performed By: #### B MPX, CDP ####[facility] [address] [place] [address] [phone])[phone] Director: Kelechi Dueñas MD MCH (RBC) [Entitic mass] 28.0 pg Normal 25.2-33.5 [facility] Comment on above: Performed By: #### B MPX, CDP ####[facility] [address] [place] [address] Lab Director: Kelechi Dueñas MD MCHC (RBC) [Mass/Vol] 28.3 g/dL Low 28.4-34.8 [facility] Comment on above: Performed By: #### B MPX, CDP ####[facility] [address] [place] [address] Lab Director: Kelechi Dueñas MD MCV (RBC) [Entitic vol] 98.8 fL Normal 82.6-102.9 M [facility] Comment on above: Performed By: #### B MPX, CDP ####[facility] [address] [place] [address] Lab Director: Kelechi Dueñas MD NRBC Automated 0.0 per 100 WBC Normal 0.0 [facility] Comment on above: Performed By: #### B MPX, CDP ####[facility] [address] [place], [place] [id number])[phone] Director: Kelechi Dueñas MD Platelet mean volume (Bld) [Entitic vol] 10.4 fL Normal 8.1-13.5 [facility] Comment on above: Performed By: #### B MPX, CDP ####[facility] [address] [place], [place] [phone])[phone] Director: Kelechi Dueñas MD Platelets (Bld) [#/Vol] 189 10*3/uL Normal 138-453 [facility] Comment on above: Performed By: #### B MPX, CDP ####[facility] [address] [place] [address] Lab Director: Kelechi Dueñas MD RBC (Bld) [#/Vol] 3.25 10*6/uL Low 4.21-5.77 [facility] Comment on above: Performed By: #### B MPX, CDP ####[facility] [address] [place] [address] Lab Director: Kelechi Dueñas MD WBC (Bld) [#/Vol] 12.6 10*3/uL High 3.5-11.3 [facility] Comment on above: Performed By: #### B MPX, CDP ####[facility] [address] [place], [place] [id number])[phone] Director: Kelechi Dueñas MD Cult,Bloodon 05-28-2024 Cult,Blood Specimen Description .BLOOD Special Requests L FOREARM 10ML Culture NO GROWTH 5 DAYS Report Status FINAL 05/28/2024 Normal [facility] Comment on above: Performed By: #### B C ####[facility] [address] [place], [place] [phone] Director: Kelechi Dueñas MD Culture, Blood 1on 4 Microorganism identified Cx Nom (Unsp spec) NO GROWTH 5 DAYS [facility] Service comment (Unsp spec) [Interp] L FOREARM 10ML [facility] Specimen Description .BLOOD [facility] Glucose,Whole Bloodon 2023 Glucose [Mass/Vol] 164 mg/dL High 75-110 [facility] Glucose [Mass/Vol] 192 mg/dL High 75-110 [facility] Glucose [Mass/Vol] 192 mg/dL High 75-110 [facility] Glucose [Mass/Vol] 184 mg/dL High 75-110 [facility] No Panel Informationon 05-28 MHPN RIS CONSOLIDATED PN RIS CONSOLIDATED [facility] Radiology Study observation (narrative) [facility] No Panel InformationOrdered By: Patricio Avery on 05-28-2024 [facility] Work Phone: POC Glucose Fingerstickon Glucose [Mass/Vol] 164 mg/dL High 75 - 110 mg/dL [facility] Interpretation and review of laboratory results Abnormal [facility] Glucose [Mass/Vol] 192 mg/dL High 75 - 110 mg/dL [facility] Interpretation and review of laboratory results Abnormal [facility] Glucose [Mass/Vol] 192 mg/dL High 75 - 110 mg/dL [facility] Interpretation and review of laboratory results Abnormal [facility] Glucose [Mass/Vol] 184 mg/dL High 75 - 110 mg/dL [facility] Interpretation and review of laboratory results Abnormal [facility] XR CERVICAL SPINE (2-3 VIEWS )on 05-28-2024 XR CERVICAL SPINE (2-3 VIEWS) EXAMINATION: XRAY VIEWS OF THE CERVICAL SPINE; XRAY VIEWS OF THE LUMBAR SPINE 05/28/2024 12:02 pm COMPARISON: None. HISTORY: ORDERING SYSTEM PROVIDED HISTORY: followup postop; UPRIGHT AP AND LATERAL TECHNOLOGIST PROVIDED HISTORY: followup postop; UPRIGHT AP, swimmers AND LATERAL. Postop C3-7 posterior cervical decompression/fusion. followup postop; UPRIGHT AP AND LATERAL Reason for Exam: Upright post op; ORDERING SYSTEM PROVIDED HISTORY: Postop extension of posterior lumbar fusion to L3 TECHNOLOGIST PROVIDED HISTORY: Upright films please. Postop extension of posterior lumbar fusion to L3 Reason for Exam: Upright post op FINDINGS: Pedicle screws associated posterior fixation rods extending from the L3 to the L5 levels. Interbody device in the L3-4 intervertebral disc space and interbody graft in the L4-5 intervertebral disc space. Surgical hardware appears to be intact. Reversal the normal lumbar spine lordosis. Endplate osteophytes at multiple levels in the lumbar spine. No IMPRESSION: Postoperative changes in the lumbar spine. No evidence of complication. Spondylosis of the lumbar spine. Interpreted by: Patricio Avery MD Signed by: Patricio Avery MD 05/28/24 Final result Normal [facility] XR LUMBAR SPINE (2-3 VIEWS)o n 05-28-2024 XR LUMBAR SPINE (2-3 VIEWS) EXAMINATION: XRAY VIEWS OF THE CERVICAL SPINE; XRAY VIEWS OF THE LUMBAR SPINE 05/28/2024 12:02 pm COMPARISON: None. HISTORY: ORDERING SYSTEM PROVIDED HISTORY: followup postop; UPRIGHT AP AND LATERAL TECHNOLOGIST PROVIDED HISTORY: followup postop; UPRIGHT AP, swimmers AND LATERAL. Postop C3-7 posterior cervical decompression/fusion. followup postop; UPRIGHT AP AND LATERAL Reason for Exam: Upright post op; ORDERING SYSTEM PROVIDED HISTORY: Postop extension of posterior lumbar fusion to L3 TECHNOLOGIST PROVIDED HISTORY: Upright films please. Postop extension of posterior lumbar fusion to L3 Reason for Exam: Upright post op FINDINGS: Pedicle screws associated posterior fixation rods extending from the L3 to the L5 levels. Interbody device in the L3-4 intervertebral disc space and interbody graft in the L4-5 intervertebral disc space. Surgical hardware appears to be intact. Reversal the normal lumbar spine lordosis. Endplate osteophytes at multiple levels in the lumbar spine. No IMPRESSION: Postoperative changes in the lumbar spine. No evidence of complication. Spondylosis of the lumbar spine. Interpreted by: Patricio Avery MD Signed by: Patricio Avery MD 05/28/24 Final result Normal [facility] Calcium, Ionicon 05-27-2024 Calcium [Moles/Vol] 1.21 mmol/L Normal 1.13-1.33 [facility] Comment on above: Performed By: #### O HP, LACTIC, IOCAL ####[facility] [address] [place], [place] [id number])[phone] Director: Kelechi Dueñas MD Calcium, Ionizedon Calcium.ionized (Bld) [Moles/Vol] 1.21 mmol/L 1.13 - 1.33 mmol/L [facility] Metabolic Pr/rfx MGon 0 05-27-2024 Albumin [Mass/Vol] 3.1 g/dL Low 3.5-5.2 [facility] Comment on above: Performed By: #### C MPX ####[facility] [address] [place], [place] [phone])[phone] Director: Kelechi Dueñas MD Albumin/Glob Ratio 1.0 Normal 1.0-2.5 [facility] Comment on above: Performed By: #### C MPX ####[facility] [place], [place] [id number])[phone] Director: Kelechi Dueñas MD Alkaline Phos 81 U/L Normal 40-129 [facility] Comment on above: Performed By: #### C MPX ####[facility] [address] [place], [place] [id number])[phone] Director: Kelechi Dueñas MD ALT [Catalytic activity/Vol] 29 U/L Normal 10-50 [facility] Comment on above: Performed By: #### C MPX ####[facility] [address] [place], [place] [id number])[phone] Director: Kelechi Dueñas MD Anion gap [Moles/Vol] 9 mmol/L Normal 9-16 [facility] Comment on above: Performed By: #### C MPX ####[facility] [address] [place], [place] [address])[phone] Director: Kelechi Dueñas MD AST [Catalytic activity/Vol] 28 U/L Normal 10-50 [facility] Comment on above: Performed By: #### C MPX ####[facility] [address] [place], [place] [id number])[phone] Director: Kelechi Dueñas MD Bilirubin [Mass/Vol] 0.2 mg/dL Normal 0.00-1.20 [facility] Comment on above: Performed By: #### C MPX ####[facility] [address] [place] [address])[phone] Director: Kelechi Dueñas MD Calcium [Mass/Vol] 8.5 mg/dL Low 8.6-10.4 [facility] Comment on above: Performed By: #### C MPX ####[address] [address])[phone] Director: Kelechi Dueñas MD Chloride [Moles/Vol] 110 mmol/L High 98-107 [facility] Comment on above: Performed By: #### C MPX ####[address] [address])[phone] Director: Kelechi Dueñas MD CO2 [Moles/Vol] 20 mmol/L Normal 20-31 [facility] Comment on above: Performed By: #### C MPX ####[facility] [address] [place], [place] [address])[phone] Director: Kelechi Dueñas MD Creatinine [Mass/Vol] 1.9 mg/dL High 0.70-1.20 [facility] Comment on above: Performed By: #### C MPX ####[facility] [address] [place], [place] [address])[phone] Director: Kelechi Dueñas MD GFR/1.73 sq M.predicted among non-blacks MDRD (S/P/Bld) [Vol rate/Area] 36 mL/min/{1.73_m2} Low >60 [facility] Comment on above: Result Comment: These results are not intended for use in patients <18 years of age. eGFR results are calculated without a race factor using the 2020 CKD-EPI equation. Careful clinical correlation is recommended, particularly when comparing to results calculated using previous equations. The CKD-EPI equation is less accurate in patients with extremes of muscle mass, extra-renal metabolism of creatine, excessive creatine ingestion, or following therapy that affects renal tubular secretion. Performed By: #### C MPX ####[address] [id number])[phone] Director: Kelechi Dueñas MD Glucose [Mass/Vol] 197 mg/dL High 74-99 [facility] Comment on above: Performed By: #### C MPX ####[address] [address])[phone] Director: Kelechi Dueñas MD Potassium [Moles/Vol] 4.0 mmol/L Normal 3.7-5.3 [facility] Comment on above: Performed By: #### C MPX ####[address] [address])[phone] Director: Kelechi Dueñas MD Protein [Mass/Vol] 5.5 g/dL Low 6.6-8.7 [facility] Comment on above: Performed By: #### C MPX ####[facility] [address] [place] [address] [id number])[phone] Director: Kelechi Dueñas MD Sodium [Moles/Vol] 139 mmol/L Normal 136-145 [facility] Comment on above: Performed By: #### C MPX ####[address] [id number])[phone] Director: Kelechi Dueñas MD Urea nitrogen [Mass/Vol] 58 mg/dL High 8-23 [facility] Comment on above: Performed By: #### C MPX ####[facility] [address] [place] [address] lab Director: Kelechi Dueñas MD Comprehensive Metabolic Pane l w/ Reflex to on 05-27-2024 Albumin [Mass/Vol] 3.1 g/dL Low 3.5 - 5.2 g/dL [facility] Albumin/Globulin [Mass ratio] 1.0 {ratio} 1.0 - 2.5 [facility] ALP [Catalytic activity/Vol] 81 U/L 40 - 129 U/L [facility] ALT [Catalytic activity/Vol] 29 U/L 10 - 50 U/L [facility] Anion gap [Moles/Vol] 9 mmol/L 9 - 16 mmol/L [facility] AST [Catalytic activity/Vol] 28 U/L 10 - 50 U/L [facility] Bilirubin [Mass/Vol] 0.2 mg/dL 0.00 - 1.20 mg/dL [facility] Calcium [Mass/Vol] 8.5 mg/dL Low 8.6 - 10. 4 mg/dL [facility] Chloride [Moles/Vol] 110 mmol/L High 98 - 10 7 mmol/L [facility] CO2 [Moles/Vol] 20 mmol/L 20 - 31 mmol/L [facility] Creatinine [Mass/Vol] 1.9 mg/dL High 0.70 - 1.20 mg/dL [facility] Est, Glom Filt Rate 36 Low - [facility] Glucose [Mass/Vol] 197 mg/dL High 74 - 99 mg/dL [facility] Interpretation and review of laboratory results Abnormal [facility] Potassium [Moles/Vol] 4.0 mmol/L 3.7 - 5.3 mmol/L [facility] Protein [Mass/Vol] 5.5 g/dL Low 6.6 - 8.7 g/dL [facility] Sodium [Moles/Vol] 139 mmol/L 136 - 145 mmol/L [facility] Urea nitrogen [Mass/Vol] 58 mg/dL High 8 - 23 mg/dL [facility] FLUORO FOR SURGICAL PROCEDUR ESon 05-27-2024 FLUORO FOR SURGICAL PROCEDURES EXAMINATION: SPOT FLUOROSCOPIC IMAGES 05/27/2024 5:49 pm TECHNIQUE: CT fluoroscopy was provided by the radiology department for procedure. Radiologist was not present during examination. FLUOROSCOPY DOSE AND TYPE: 27.5 mGy. COMPARISON: None HISTORY: ORDERING SYSTEM PROVIDED HISTORY: POSTERIOR CERVICAL DECOMPRESSION FUSION CERVICAL THREE THROUGH SEVEN - O ARM TECHNOLOGIST PROVIDED HISTORY: POSTERIOR CERVICAL DECOMPRESSION FUSION CERVICAL THREE THROUGH SEVEN - O ARM Intraprocedural imaging. FINDINGS: Intraoperative CT fluoroscopic images are provided for review. The images demonstrate a large surgical defect in the soft tissues posterior to the lower lumbar spine. Bilateral pedicle screws are in place at L3 and appear to be appropriately positioned. Status post interval explantation of the previously identified pedicle screws and vertical stabilization rods at L4-5. Status post L4-5 discectomy. A surgical wire is present in the posterior aspect of the central canal at the L3-4 interspace and L4 levels. No fracture or other acute osseous abnormality identified. IMPRESSION: Intraprocedural CT fluoroscopic images as above. See separate procedure report for more information. Interpreted by: Ascencion Dickson MD Signed by: Ascencion Dickson MD 05/27/24 Final result Normal [facility] FLUORO FOR SURGICAL PROCEDURES Radiology exam is complete. No Radiologist dictation. Please follow up with ordering provider. Final result Normal [facility] FLUORO FOR SURGICAL PROCEDURES Radiology exam is complete. No Radiologist dictation. Please follow up with ordering provider. Final result Normal [facility] Glucose,Whole Bloodon 2023 Glucose [Mass/Vol] 248 mg/dL High 75-110 [facility] Glucose [Mass/Vol] 215 mg/dL High 75-110 [facility] Glucose [Mass/Vol] 174 mg/dL High 75-110 [facility] Guidance-- during surgeryon 05-27-2024 PN RIS CONSOLIDATED [facility] CONSOLID[facility] Radiology Study observation (narrative) [facility] Lactic Acidon 05-27-2024 Lactic Acid, Whole Blood 1.4 mmol/L 0.7 - 2.1 mmol/L [facility] Lactic Acid,Whole Bl 1.4 mmol/L Normal 0.7-2.1 [facility] Comment on above: Performed By: #### O HP, LACTIC, IOCAL ####[facility] [address] [place] [address] lab Director: Kelechi Dueñas MD No Panel Informationon 05-27 [facility] OPEN HEART PANELon Arterial patency Wrist artery --pre arterial puncture INFORMATION NOT PROVIDED [facility] Carboxyhemoglobin (Bld) [Mass fraction] 1.9 % 0 - 5 % [facility] Chloride [Moles/Vol] 116 mmol/L High 98 - 11 0 mmol/L [facility] Glucose [Mass/Vol] 184 mg/dL High 75 - 110 mg/dL [facility] HCO3 (Bld) [Moles/Vol] 18.4 mmol/L Low 22 - 27 mmol/L [facility] Hematocrit (Bld) [Volume fraction] 28.3 % Low 40.7 - 50.3 % [facility] Hemoglobin (Bld) [Mass/Vol] 9.1 g/dL Low [facility] Interpretation and review of laboratory results Abnormal [facility] Negative Base Excess, Art 7.2 mmol/L High 0.0 - 2.0 mmol/L [facility] Oxygen saturation in Blood 98.7 % 94 - 100 % [facility] Oxygen/Inspired gas Respiratory system --on ventilator 50% [facility] pCO2, Art, Temp Adj 37.4 32 - 45 [facility] S [facility] pCO2, Arterial 40.0 [facility] pH, Art, Temp Adj 7.304 Low 7.350 - 7.450 [facility] pH, Arterial 7.284 Low 7.350 - 7.450 [facility] pO2, Art, Temp Adj 177.0 High [facility] pO2, Arterial 183.0 High [facility] Potassium [Moles/Vol] 4.5 mmol/L 3.6 - 5.0 mmol/L [facility] Sodium [Moles/Vol] 138 mmol/L 136 - 145 mmol/L [facility] Open Heart Panelon 4 Lux Test INFORMATION NOT PROVIDED Normal [facility] Comment on above: Performed By: #### O HP, LACTIC, IOCAL ####[facility] [address] [place] [address] Lab Director: Kelechi Dueñas MD Body Temp. 35.6 Normal [facility] Comment on above: Performed By: #### O HP, LACTIC, IOCAL ####[facility] [address] [place] [address] Lab Director: Kelechi Dueñas MD Carboxy Hgb 1.9 % Normal 0-5 [facility] Comment on above: Result Comment: Reference Range: Non-Smokers 0-2% Average Smoker 2-4% Heavy Smoker <10% Performed By: #### O HP, LACTIC, IOCAL ####[facility] [address] [place] [address] Lab Director: Kelechi Dueñas MD Chloride [Moles/Vol] 116 mmol/L High 98-110 [facility] Comment on above: Performed By: #### O HP, LACTIC, IOCAL ####[facility] [address] [place] [address] Lab Director: Kelechi Dueñas MD FIO2 50% Normal [facility] Comment on above: Performed By: #### O HP, LACTIC, IOCAL ####[facility] [address] [place] [address] Lab Director: Kelechi Dueñas MD Glucose [Mass/Vol] 184 mg/dL High 75-110 [facility] Comment on above: Performed By: #### O HP, LACTIC, IOCAL ####[facility] [address] [place] [address] Lab Director: Kelechi Dueñas MD HCO3 (Bld) [Moles/Vol] 18.4 mmol/L Low 22-27 M [facility] Comment on above: Performed By: #### O HP, LACTIC, IOCAL ####[facility] [address] [place] [address] Lab Director: Kelechi Dueñas MD Hematocrit (Bld) [Volume fraction] 28.3 % Low 40.7-50.3 [facility] Comment on above: Performed By: #### O HP, LACTIC, IOCAL ####[facility] [address] [place], [place] [address])[phone] Director: Kelechi Dueñas MD Hemoglobin (Bld) [Mass/Vol] 9.1 g/dL Low 13.0-17.0 [facility] Comment on above: Performed By: #### O HP, LACTIC, IOCAL ####[address] [address])[phone] Director: Kelechi Dueñas MD Negative Base Excess 7.2 mmol/L High 0.0-2.0 [facility] Comment on above: Performed By: #### O HP, LACTIC, IOCAL ####[address] [address] Lab Director: Kelechi Dueñas MD Oxygen (Bld) [Partial pressure] 183.0 mm[Hg] High 75-95 [facility] Comment on above: Performed By: #### O HP, LACTIC, IOCAL ####[facility] [address] [place] [address] Lab Director: Kelechi Dueñas MD Oxygen saturation in Blood 98.7 % Normal 94-100 [facility] Comment on above: Performed By: #### O HP, LACTIC, IOCAL ####[facility] [address] [place] [address] Lab Director: Kelechi Dueñas MD pCO2 40.0 mmHg Normal 32-45 [facility] Comment on above: Performed By: #### O HP, LACTIC, IOCAL ####[facility] [address]ftxs[address]39[address] [place], [place] [id number])[phone] Director: Kelechi Dueñas MD pCO2 Adj'd for Temp 37.4 Normal 32-45 [facility] Comment on above: Performed By: #### O HP, LACTIC, IOCAL ####[facility] G[address]th[address]qz[address]25[address] [place], [place] [id number])[phone] Director: Kelechi uDeñas MD pH (Bld) 7.284 [pH] Low 7.350-7.45 0 [facility] Comment on above: Performed By: #### O HP, LACTIC, IOCAL ####[facility] [address]mp[address] [place], [place] [id number])[phone] Director: Kelechi Dueñas MD pH Adjst'd for Temp. 7.304 Low 7.350-7 .45 0 [facility] Comment on above: Performed By: #### O HP, LACTIC, IOCAL ####[facility] [address] [place], [place] [id number])[phone] Director: Kelechi Dueñas MD pO2 Adjst'd for Temp 177.0 mmHg High 75-95 [facility] Comment on above: Performed By: #### O HP, LACTIC, IOCAL ####[facility] [address] [place] [address] Lab Director: Kelechi Dueñas MD Potassium [Moles/Vol] 4.5 mmol/L Normal 3.6-5.0 [facility] Comment on above: Performed By: #### O HP, LACTIC, IOCAL ####[facility] [address] [place], [place] [id number])[phone] Director: Kelechi Dueñas MD Sodium [Moles/Vol] 138 mmol/L Normal 136-145 [facility] Comment on above: Performed By: #### O HP, LACTIC, IOCAL ####[facility] [address] [place], [place] [id number] lab Director: Kelechi Dueñas MD POC Glucose Fingerstickon Glucose [Mass/Vol] 248 mg/dL High 75 - 110 mg/dL [facility] Interpretation and review of laboratory results Abnormal [facility] Glucose [Mass/Vol] 215 mg/dL High 75 - 110 mg/dL [facility] Interpretation and review of laboratory results Abnormal [facility] Glucose [Mass/Vol] 174 mg/dL High 75 - 110 mg/dL [facility] Interpretation and review of laboratory results Abnormal [facility] ALDOLASEon 05-26-2024 Aldolase [Catalytic activity/Vol] 2.9 mU/mL 1.2 - 7.6 U/L [facility] Aldolaseon 05-26-2024 Aldolase 2.9 U/L Normal 1.2-7.6 [facility] Comment on above: Result Comment: (NOT E) REFERENCE INTERVAL: Aldolase Access complete set of age- and/or gender-specific reference intervals for this test in the [facility] Test Directory ([employer]). Performed By: [facility] [address] [id number] [employer] Tender: Grady Avery MD, PhD CLIA Number: [id number] Performed By: #### C K ####[facility] [address] [place] [address] [facility] Director: Kelechi Dueñas MD#### AALDO ####[facility] [place] [address] lab Director: Yanick Wilcox MD Anti-Neutrophilic Cytoplasmi c Antibodyon 05-26-2024 ANCA Myeloperoxidase 0.9 AU/mL 0.0 - 3 .5 AU/mL [facility] ANCA Proteinase 3 AU/mL 0.0 - 2.0 AU/mL [facility] CBC with Auto Differentialon 05-26-2024 Basophils (Bld) [#/Vol] B ON [facility] Eosinophils (Bld) [#/Vol] [facility] Erythrocyte distribution width (RBC) [Ratio] 12.2 % 11.8 - 14.4 % [facility] Hematocrit (Bld) [Volume fraction] 31.3 % Low 40.7 - 50.3 % [facility] Hemoglobin (Bld) [Mass/Vol] 10.3 g/dL Low 13.0 - 17.0 g/dL [facility] Immature granulocytes (Bld) [#/Vol] 0.16 10*3/uL [facility] Interpretation and review of laboratory results Abnormal [facility] Lymphocytes/100 WBC (Bld) 0.72 % Low [facility] MCH (RBC) [Entitic mass] 28.2 pg 25.2 - 33.5 pg [facility] MCHC (RBC) [Mass/Vol] 32.9 g/dL 28.4 - 34.8 g/dL [facility] MCV (RBC) [Entitic vol] 85.8 fL 82.6 - 102.9 fL [facility] Monocytes/100 WBC (Bld) 0.41 % B ON [facility] Neutrophils/100 WBC (Bld) 93 % High 36 - 65 % [facility] Nucleated RBC/100 WBC (Bld) [Ratio] 0.0 % 0.0 per 100 WBC [facility] Platelet mean volume (Bld) [Entitic vol] 10.5 fL 8.1 - 13.5 fL [facility] Platelets (Bld) [#/Vol] 225 10*3/uL [facility] RBC (Bld) [#/Vol] 3.65 10*6/uL Low 4.21 - 5.77 m/uL [facility] Segmented neutrophils/100 WBC (Bld) 16.19 % High [facility] WBC other (Bld) [#/Vol] 17.5 High B ON [facility] CBC with Diffon 05-26-2024 Abs. Basophil <0.03 Normal 0.00-0.20 [facility] Comment on above: Performed By: #### C DP, CMPX, GLYHGB ####[facility] [address]wl[address] [place], [place] [address])[phone] Director: Kelechi Dueñas MD Abs. Eosinophil <0.03 Normal 0.00-0.44 [facility] Comment on above: Performed By: #### C DP, CMPX, GLYHGB ####[facility] [address] [place] [address])[phone] Director: Kelechi Dueñas MD Abs.Imm.Granulocyte 0.16 k/uL Normal 0.00-0.30 [facility] Comment on above: Performed By: #### C DP, CMPX, GLYHGB ####[place], [place] [address])[phone] Director: Kelechi Dueñas MD Abs.Neutrophil (Seg) 16.19 k/uL High 1.50-8.10 [facility] Comment on above: Performed By: #### C DP, CMPX, GLYHGB ####[facility] [address] [place] [address])[phone] Director: Kelechi Dueñas MD Basophils/100 WBC (Bld) 0 % Normal 0-2 [facility] Comment on above: Performed By: #### C DP, CMPX, GLYHGB ####[address] [address])[phone] Director: Kelechi Dueñas MD Eosinophils/100 WBC (Bld) 0 % Low 1-4 [facility] Comment on above: Performed By: #### C DP, CMPX, GLYHGB ####[facility] [address] [place] [address])[phone] Director: Kelechi Dueñas MD Immature granulocytes/100 WBC (Bld) 1 % High 0 [facility] Comment on above: Performed By: #### C DP, CMPX, GLYHGB ####[facility] [address] [place] [id number])[phone] Director: Kelechi Dueñas MD Lymphocytes (Bld) [#/Vol] 0.72 10*3/uL Low 1.10-3.70 [facility] Comment on above: Performed By: #### C DP, CMPX, GLYHGB ####[facility] [address] [place], [place] [id number])[phone] Director: Kelechi Dueñas MD Lymphocytes/100 WBC (Bld) 4 % Low 24-43 [facility] Comment on above: Performed By: #### C DP, CMPX, GLYHGB ####[facility] [address] [place], [place] [address])[phone] Director: Kelechi Dueñas MD Monocytes (Bld) [#/Vol] 0.41 10*3/uL Normal 0.10-1.20 [facility] Comment on above: Performed By: #### C DP, CMPX, GLYHGB ####[facility] [address] [place] [id number])[phone] Director: Kelechi Dueñas MD Monocytes/100 WBC (Bld) 2 % Low 3-12 [facility] Comment on above: Performed By: #### C DP, CMPX, GLYHGB ####[facility] [address] [place], [place] [id number])[phone] Director: Kelechi Dueñas MD Neutrophil (Seg) 93 % High 36-65 [place] Comment on above: Performed By: #### C DP, CMPX, GLYHGB ####[facility] [address] [place], [place] [id number])[phone] Director: Kelechi Dueñas MD Erythrocyte distribution width (RBC) [Ratio] 12.2 % Normal 11.8-14.4 [facility] Comment on above: Performed By: #### C DP, CMPX, GLYHGB ####[facility] [address] [place], [place] [address])[phone] Director: Kelechi Dueñas MD Hematocrit (Bld) [Volume fraction] 31.3 % Low 40.7-50.3 [facility] Comment on above: Performed By: #### C DP, CMPX, GLYHGB ####[address] [id number])[phone] Director: Kelechi Dueñas MD Hemoglobin (Bld) [Mass/Vol] 10.3 g/dL Low 13.0-17.0 [facility] Comment on above: Performed By: #### C DP, CMPX, GLYHGB ####[place], [place] [address])[phone] Director: Kelechi Dueñas MD MCH (RBC) [Entitic mass] 28.2 pg Normal 25.2-33.5 [facility] Comment on above: Performed By: #### C DP, CMPX, GLYHGB ####[place], [place] [address])[phone] Director: Kelechi Dueñas MD MCHC (RBC) [Mass/Vol] 32.9 g/dL Normal 28.4-34.8 [facility] Comment on above: Performed By: #### C DP, CMPX, GLYHGB ####[place], [place] [address])[phone] Director: Kelechi Dueñas MD MCV (RBC) [Entitic vol] 85.8 fL Normal 82.6-102.9 M [facility] Comment on above: Performed By: #### C DP, CMPX, GLYHGB ####[place], [place] [address])[phone] Director: Kelechi Dueñas MD NRBC Automated 0.0 per 100 WBC Normal 0.0 [facility] Comment on above: Performed By: #### C DP, CMPX, GLYHGB ####[address] [place] [id number])[phone] Director: Kelechi Dueñas MD Platelet mean volume (Bld) [Entitic vol] 10.5 fL Normal 8.1-13.5 [facility] Comment on above: Performed By: #### C DP, CMPX, GLYHGB ####[facility] [address] [place], [place] [id number])[phone] Director: Kelechi Dueñas MD Platelets (Bld) [#/Vol] 225 10*3/uL Normal 138-453 [facility] Comment on above: Performed By: #### C DP, CMPX, GLYHGB ####[facility] [address] [place], [place] [id number])[phone] Director: Kelechi Dueñas MD RBC (Bld) [#/Vol] 3.65 10*6/uL Low 4.21-5.77 [facility] Comment on above: Performed By: #### C DP, CMPX, GLYHGB ####[facility] [address]jwkcyx[address] [place], [place] [id number])[phone] Director: Kelechi Dueñas MD WBC (Bld) [#/Vol] 17.5 10*3/uL High 3.5-11.3 [facility] Comment on above: Performed By: #### C DP, CMPX, GLYHGB ####[facility] [address]cpvf5[address] [place], [place] [id number])[phone] Director: Kelechi Dueñas MD Cardiac echo study Procedure on 05-26-2024 Ao Root Index 1.96 cm/m2 [facility] [employer] Aortic Root 3.5 cm [facility] [employer] Ascending Aorta 3.5 cm [facility] Ascending Aorta Index 1.96 cm/m2 [facility] AV Area by Peak Velocity 1.7 cm2 [facility] [employer] AV Area by VTI 2.1 cm2 [facility] [employer] AV Mean Gradient 6 mmHg [facility] [employer] AV Mean Velocity 1.2 m/s [facility] [employer] AV Peak Gradient 14 mmHg [facility] [employer] AV Peak Velocity 1.9 m/s [facility] [employer] AV Velocity Ratio 0.47 [facility] [employer] AV VTI [address] [facility] [employer] HEALTH KARLY/BSA Peak Velocity 0.9 cm2/m2 [facility] [employer] KARLY/BSA VTI 1.2 cm2/m2 [facility] [employer] Body surface area Derived from formula 1.[address] [facility] [employer] HEALTH E/E' Lateral 15.[address] [facility] [employer] HEALTH E/E' Ratio (Averaged) 18.23 [facility] [employer] E/E' Septal 20.[address] [facility] [employer] EF Physician 47 % [facility] [employer] Fractional Shortening 2D 21 % 28 - 44 % [facility] Interpretation and review of laboratory results Abnormal [facility] [employer] IVSd 1.2 cm Abnormal 0.6 - 1.0 cm [facility] [employer] [place] Area 2C 26.2 cm2 [facility] [employer] [place] Area 4C 22.9 cm2 [facility] [employer] [place] Diameter 4.1 cm [facility] [employer] [place] Major Deal 7.1 cm [facility] [employer] [place] Minor Deal 6.0 cm [facility] [employer] [place] Size Index 2.29 cm/m2 [facility] [employer] [place] Volume BP 82 mL Abnormal 18 - [address] [facility] [employer] HEALTH LA Volume Index BP 46 ml/m2 Abnormal 16 - 34 ml/m2 [facility] [place] Volume Index MOD A2C 53 ml/m2 Abnormal 16 - 34 ml/m2 [facility] [employer] [place] Volume Index MOD A4C 35 ml/m2 Abnormal 16 - 34 ml/m2 [facility] [place] Volume MOD A2C 95 mL Abnormal 18 - [address] [facility] [employer] [place] Volume MOD A4C 62 mL Abnormal 18 - [address] [facility] [employer] LA/AO Root Ratio 1.17 [facility] [employer] [place] E' Lateral Velocity 8 cm/s [facility] E' Septal Velocity 6 cm/s [facility] EDV A2C 141 mL [facility] EDV A4C 101 mL [facility] EDV Index A2C 79 mL/m2 [facility] LV EDV Index A4C 56 mL/m2 [facility] [employer] HEALTH LV Ejection Fraction A2C 48 % [facility] LV Ejection Fraction A4C 30 % [facility] LV ESV A2C 73 mL [facility] LV ESV A4C 70 mL [facility] [employer] LV ESV Index A2C 41 mL/m2 [facility] [employer] LV ESV Index A4C 39 mL/m2 [facility] [employer] HEALTH LV Mass 2D 234.6 g Abnormal 88 - 224 g [facility] LV Mass 2D Index 131.1 g/m2 Abnormal 49 - 115 g/m2 [facility] [employer] LV RWT Ratio 0.42 [facility] LVIDd 5.2 cm 4.2 - 5.9 cm [facility] [employer] LVIDd Index 2.91 cm/m2 [facility] [employer] LVIDs 4.1 cm [facility] [employer] LVIDs Index 2.29 cm/m2 [facility] [employer] LVOT Area 3.5 cm2 [facility] [employer] LVOT Diameter 2.1 cm [facility] [employer] LVOT Mean Gradient 2 mmHg [facility] [employer] LVOT Peak Gradient 3 mmHg [facility] [employer] LVOT Peak Velocity 0.9 m/s [facility] [employer] LVOT Stroke Volume Index 44.7 mL/m2 [facility] [employer] LVOT SV 80.0 ml [facility] [employer] LVOT VTI 23.1 cm [facility] [employer] LVOT:AV VTI Index 0.61 [facility] [employer] LVPWd 1.1 cm Abnormal 0.6 - 1.0 cm [facility] [employer] MR Peak Gradient 108 mmHg [facility] [employer] MR Peak Velocity 5.2 m/s [facility] [employer] MR Radius PISA 0.80 cm [facility] [employer] MR VTI 195.[address] [facility] [employer] MV A Velocity 1.45 m/s [facility] [employer] MV Area by VTI 2.1 cm2 [facility] [employer] MV E Velocity 1.25 m/s [facility] [employer] MV E Wave Deceleration Time 155.[address] [facility] [employer] MV E/A 0.[address] [facility] MV Max Velocity 1.6 m/s [facility] MV Mean Gradient 5 mmHg [facility] MV Mean Velocity 1.1 m/s [facility] MV Nyquist Velocity 27 cm/s [facility] S ROXANNA [facility] MV Peak Gradient 10 mmHg [facility] MV VTI 38.0 cm [facility] MV:LVOT VTI Index 1.65 [facility]US [facility] PV Max Velocity 1.1 m/s [facility] PV Peak Gradient 5 mmHg [facility] M[facility] RA Area 4C 16.4 cm2 [facility] RA Volume 43 ml [facility] RA Volume Index A4C 24 mL/m2 [facility] S ECOJOSELUIS [facility] RV Basal Dimension 3.7 cm [facility] RV Free Wall Peak S' 15 cm/s [facility] TAPSE 2.9 cm 1.7 cm [facility] CV CPACS [facility] Radiology Study observation (narrative) [facility] Chloride, Random Urineon Chloride (U) [Moles/Vol] 35 mmol/L [facility] Chloride,Random Uron 024 Chloride [Moles/Vol] 35 mmol/L Normal [facility] Comment on above: Result Comment: No n ormal range established. Performed By: #### U RCL, URNA, URTPRT ####[facility] [address] [place] [address] Lab Director: Kelechi Dueñas MD Comp Metabolic Pr/rfx MGon 0 05-26-2024 Albumin [Mass/Vol] 3.0 g/dL Low 3.5-5.2 [facility] Comment on above: Performed By: #### C DP, CMPX, GLYHGB ####[facility] [address] [place] [address] lab Director: Kelechi Dueñas MD Albumin/Glob Ratio 1.0 Normal 1.0-2.5 [facility] Comment on above: Performed By: #### C DP, CMPX, GLYHGB ####[facility] [address] [place], [place] [id number])[phone] Director: Kelechi Dueñsa MD Alkaline Phos 84 U/L Normal 40-129 [facility] Comment on above: Performed By: #### C DP, CMPX, GLYHGB ####[facility] [address] [place], [place] [id number])[phone] Director: Kelechi Dueñas MD ALT [Catalytic activity/Vol] 22 U/L Normal 10-50 [facility] Comment on above: Performed By: #### C DP, CMPX, GLYHGB ####[facility] [address] [place] [address] Lab Director: Kelechi Dueñas MD Anion gap [Moles/Vol] 9 mmol/L Normal 9-16 [facility] Comment on above: Performed By: #### C DP, CMPX, GLYHGB ####[facility] [address] [place], [place] [id number])[phone] Director: Kelechi Dueñas MD AST [Catalytic activity/Vol] 25 U/L Normal 10-50 [facility] Comment on above: Performed By: #### C DP, CMPX, GLYHGB ####[facility] [address] [place], [place] [id number])[phone] Director: Kelechi Dueñas MD Bilirubin [Mass/Vol] 0.3 mg/dL Normal 0.00-1.20 [facility] Comment on above: Performed By: #### C DP, CMPX, GLYHGB ####[facility] [address]nhknbsumpij4[address] [place], [place] [id number])[phone] Director: Kelechi Dueñas MD Calcium [Mass/Vol] 8.6 mg/dL Normal 8.6-10.4 [facility] Comment on above: Performed By: #### C DP, CMPX, GLYHGB ####[facility] [address]rx[address] [place] [address] Lab Director: Kelechi Dueñas MD Chloride [Moles/Vol] 109 mmol/L High 98-107 [facility] Comment on above: Performed By: #### C DP, CMPX, GLYHGB ####[facility] [address] [place] [address] Lab Director: Kelechi Dueñas MD CO2 [Moles/Vol] 18 mmol/L Low 20-31 [facility] Comment on above: Performed By: #### C DP, CMPX, GLYHGB ####[facility] [address]oc[address] [place], [place] [address])[phone] Director: Kelechi Dueñas MD Creatinine [Mass/Vol] 1.9 mg/dL High 0.70-1.20 [facility] Comment on above: Performed By: #### C DP, CMPX, GLYHGB ####[facility] [address]iv[address]cxmwbm[address] [place], [place] [address])[phone] Director: Kelechi Dueñas MD GFR/1.73 sq M.predicted among non-blacks MDRD (S/P/Bld) [Vol rate/Area] 37 mL/min/{1.73_m2} Low >60 [facility] Comment on above: Result Comment: These results are not intended for use in patients <18 years of age. eGFR results are calculated without a race factor using the 2020 CKD-EPI equation. Careful clinical correlation is recommended, particularly when comparing to results calculated using previous equations. The CKD-EPI equation is less accurate in patients with extremes of muscle mass, extra-renal metabolism of creatine, excessive creatine ingestion, or following therapy that affects renal tubular secretion. Performed By: #### C DP, CMPX, GLYHGB ####[facility] [address] [place] [address] Lab Director: Kelechi Dueñas MD Glucose [Mass/Vol] 262 mg/dL High 74-99 [facility] Comment on above: Performed By: #### C DP, CMPX, GLYHGB ####[facility] [address] [place] [address] Lab Director: Kelechi Dueñas MD Potassium [Moles/Vol] 4.2 mmol/L Normal 3.7-5.3 [facility] Comment on above: Performed By: #### C DP, CMPX, GLYHGB ####[facility] [address] [place] [address] Lab Director: Kelechi Dueñas MD Protein [Mass/Vol] 5.8 g/dL Low 6.6-8.7 [facility] Comment on above: Performed By: #### C DP, CMPX, GLYHGB ####[facility] [address] [place] [address] lab Director: Kelechi Dueñas MD Sodium [Moles/Vol] 136 mmol/L Normal 136-145 [facility] Comment on above: Performed By: #### C DP, CMPX, GLYHGB ####[facility] [address]25[address] [place] [address] Lab Director: Kelechi Dueñas MD Urea nitrogen [Mass/Vol] 55 mg/dL High 8-23 [facility] Comment on above: Performed By: #### C DP, CMPX, GLYHGB ####[facility] [address] [place] [address] Lab Director: Kelechi Dueñas MD Comprehensive Metabolic Pane l w/ Reflex to MGon 05-26-2024 Albumin [Mass/Vol] 3.0 g/dL Low 3.5 - 5.2 g/dL [facility] Albumin/Globulin [Mass ratio] 1.0 {ratio} 1.0 - 2.5 [facility] ALP [Catalytic activity/Vol] 84 U/L 40 - 129 U/L [facility] ALT [Catalytic activity/Vol] 22 U/L 10 - 50 U/L [facility] Anion gap [Moles/Vol] 9 mmol/L 9 - 16 mmol/L [facility] AST [Catalytic activity/Vol] 25 U/L 10 - 50 U/L [facility] Bilirubin [Mass/Vol] 0.3 mg/dL 0.00 - 1.20 mg/dL [facility] Calcium [Mass/Vol] 8.6 mg/dL 8.6 - 10. 4 mg/dL [facility] Chloride [Moles/Vol] 109 mmol/L High 98 - 10 7 mmol/L [facility] CO2 [Moles/Vol] 18 mmol/L Low 20 - 31 mmol/L [facility] Creatinine [Mass/Vol] 1.9 mg/dL High 0.70 - 1.20 mg/dL [facility] Est, Glom Filt Rate 37 Low - [facility] Glucose [Mass/Vol] 262 mg/dL High 74 - 99 mg/dL [facility] Interpretation and review of laboratory results Abnormal [facility] Potassium [Moles/Vol] 4.2 mmol/L 3.7 - 5.3 mmol/L [facility] Protein [Mass/Vol] 5.8 g/dL Low 6.6 - 8.7 g/dL [facility] Sodium [Moles/Vol] 136 mmol/L 136 - 145 mmol/L [facility] Urea nitrogen [Mass/Vol] 55 mg/dL High 8 - 23 mg/dL [facility] EKG 12 LeadOrdered By: Vinny Kinsey on 05-26-2024 Atrial Rate 72 BPM [facility] [employer] Work Phone: P Deal 37 degrees [facility] Work Phone: P-R Interval 118 ms [facility] Work Phone: Q-T Interval 416 ms [facility] Work Phone: QRS Duration 96 ms [facility] Work Phone: QTc Calculation (Bazett) 455 ms [facility] Work Phone: R Deal 27 degrees [facility] Work Phone: T Deal -[address] [facility] [employer] Work Phone: Ventricular Rate 72 BPM [facility] [employer] Work Phone: [facility] [employer] Work Phone: EKG 12 Leadon 05-26-2024 MHPN STV MUSE [facility] EKG Rhythm Stripon 4 [facility] Glucose,Whole Bloodon 2023 Glucose [Mass/Vol] 197 mg/dL High 75-110 [facility] Glucose [Mass/Vol] 198 mg/dL High 75-110 [facility] Glucose [Mass/Vol] 247 mg/dL High 75-110 [facility] Glucose [Mass/Vol] 268 mg/dL High 75-110 [facility] Hemoglobin A1Con 05-26-2024 Average glucose Estimated from glycated hemoglobin (Bld) [Mass/Vol] 166 mg/dL [facility] HbA1c (Bld) [Mass fraction] 7.4 % High 4.0 - 6.0 % [facility] Interpretation and review of laboratory results Abnormal [facility] Glucose [Mass/Vol] 166 mg/dL Normal [facility] Comment on above: Result Comment: The ADA and AACC recommend providing the estimated average glucose result to permit better patient understanding of their HBA1c result. Performed By: #### C DP, CMPX, GLYHGB ####[facility] [address] [place], [place] [id number] lab Director: Kelechi Dueñas MD HbA1c (Bld) [Mass fraction] 7.4 % High 4.0-6.0 [facility] Comment on above: Performed By: #### C DP, CMPX, GLYHGB ####[facility] [employer] [address] [place], [place] 7060[address] lab Director: Kelechi Dueñas MD Neutrophil Cytopl Abon 05-26 MPO-ANCA 0.9 AU/mL Normal 0.0-3.5 [facility] Comment on above: Result Comment: Reference Range: <3.5 Negative 3.5-5.0 Equivocal >5.0 Positive Performed By: #### A NCACP ####[facility] [address] [place], [place] [id number] lab Director: Kelechi Dueñas MD PR3-ANCA <0.7 Normal 0.0-2.0 [facility] Comment on above: Result Comment: Reference Range: <2.0 Negative 2.0-3.0 Equivocal >3.0 Positive Performed By: #### A NCACP ####[facility] [address]br[address] [place] [address] lab Director: Kelechi Dueñas MD No Panel Informationon 05-26 [facility] [employer] POC Glucose Fingerstickon Glucose [Mass/Vol] 197 mg/dL High 75 - 110 mg/dL [facility] Interpretation and review of laboratory results Abnormal [facility] Glucose [Mass/Vol] 198 mg/dL High 75 - 110 mg/dL [facility] Interpretation and review of laboratory results Abnormal [facility] Glucose [Mass/Vol] 247 mg/dL High 75 - 110 mg/dL [facility] Interpretation and review of laboratory results Abnormal [facility] Glucose [Mass/Vol] 268 mg/dL High 75 - 110 mg/dL [facility] Interpretation and review of laboratory results Abnormal [facility] Protein / creatinine ratio, urineon 05-26-2024 Creatinine (U) [Mass/Vol] 53.1 mg/dL 39.0 - 259.0 mg/dL [facility] Protein (U) [Mass/Vol] 55 mg/dL [facility] [employer] Urine Total Protein Creatinine Ratio 1.03 [facility] [employer] Protein,Tot,Grygla Uron 2023 Creatinine [Mass/Vol] 53.1 mg/dL Normal 39.0-259.0 [facility] Comment on above: Performed By: #### U RCL, URNA, URTPRT ####[facility] [address] [place] [address] Lab Director: Kelechi Dueñas MD Tot Prot. Conc. 55 mg/dL Normal [facility] Comment on above: Result Comment: No n ormal range established. Performed By: #### U RCL, URNA, URTPRT ####[facility] [address] [place] [address] Lab Director: Kelechi Dueñas MD TP/Cre Ratio 1.03 Normal [facility] Comment on above: Performed By: #### U RCL, URNA, URTPRT ####[facility] [address] [place], [place] [address])[phone] Director: Kelechi Dueñas MD Sodium, Random Uron 05-26-20 Sodium (U) [Moles/Vol] 31 mmol/L Normal [facility] Comment on above: Result Comment: No n ormal range established. Performed By: #### U RCL, URNA, URTPRT ####[facility] [address] [place] [address] Lab Director: Kelechi Dueñas MD Sodium, urine, randomon 05-07 Sodium (U) [Moles/Vol] 31 mmol/L [place] [facility] MESHA SCREEN WITH REFLEXon DNA double strand IgG IA Ql (S) NINF [facility] Nuclear Ab IA Ql (S) Negative NEGATIVE [facility] Nuclear IgG IA (S) [Ratio] U/mL NINF - 0.7 U/mL [facility] MESHA Screen w/reflexon 2023 MESHA Screen Negative Normal NEG [facility] Comment on above: Performed By: #### A NAX ####[facility] [address] [place] [address] Lab Director: Kelechi Dueñas MD Anti-dsDNA <0.5 Normal <10.0 [facility] Comment on above: Result Comment: Reference Range: <10.0 Negative 10.0-15.0 Equivocal >15.0 Positive Performed By: #### A NAX ####[place] [place], [place] 6704208 lab Director: Kelechi Dueñas MD MAXWELL Screen <0.1 Normal <0.7 [facility] Comment on above: Result Comment: Reference Range: <0.7 Negative 0.7-1.0 Equivocal >1.0 Positive MAXWELL Screen includes U1RNP,RNP70,Sm,Ro(SS-A),La(SS-B),CENP,Scl-70,Karolina-1 Performed By: #### A NAX ####[place] [place], [place] 0028[address] lab Director: Kelechi Dueñas MD CBC with Auto Differentialon 05-25-2024 Basophils (Bld) [#/Vol] 0.00 10*3/uL [facility] Basophils/100 WBC (Bld) 0 % 0 - 2 % B [facility] Eosinophils (Bld) [#/Vol] 0.00 10*3/uL [facility] Eosinophils/100 WBC (Bld) 0 % Low 1 - 4 % [facility] Erythrocyte distribution width (RBC) [Ratio] 12.2 % 11.8 - 14.4 % [facility] Hematocrit (Bld) [Volume fraction] 33.8 % Low 40.7 - 50.3 % [facility] Hemoglobin (Bld) [Mass/Vol] 11.0 g/dL Low 13.0 - 17.0 g/dL [facility] Immature granulocytes (Bld) [#/Vol] 0.00 10*3/uL [facility] Immature granulocytes/100 WBC (Bld) 0 % 0 [facility] Interpretation and review of laboratory results Abnormal [facility] Lymphocytes/100 WBC (Bld) 8 % Low 24 - 44 % [facility] Lymphocytes/100 WBC (Bld) 0.55 % Low [facility] MCH (RBC) [Entitic mass] 28.0 pg 25.2 - 33.5 pg [facility] MCHC (RBC) [Mass/Vol] 32.5 g/dL 28.4 - 34.8 g/dL [facility] MCV (RBC) [Entitic vol] 86.0 fL 82.6 - 102.9 fL [facility] Monocytes/100 WBC (Bld) 2 % 1 - 7 % B ON [facility] Monocytes/100 WBC (Bld) 0.14 % B ON [facility] Morphology Gerardo (Bld) [Interp] Normal [facility] Neutrophils/100 WBC (Bld) 90 % High 36 - 66 % [facility] Nucleated RBC/100 WBC (Bld) [Ratio] 0.0 % 0.0 per 100 WBC [facility] Platelet mean volume (Bld) [Entitic vol] 10.2 fL 8.1 - 13.5 fL [facility] Platelets (Bld) [#/Vol] 235 10*3/uL [facility] RBC (Bld) [#/Vol] 3.93 10*6/uL Low 4.21 - 5.77 m/uL [facility] Segmented neutrophils/100 WBC (Bld) 6.21 % [facility] WBC other (Bld) [#/Vol] 6.9 B ON [facility] CBC with Diffon 05-25-2024 Abs. Basophil 0.00 k/uL Normal 0.0-0.2 [facility] Comment on above: Performed By: #### C DP, CMPX ####[facility] [address] [place], [place] 1460[address] Lab Director: Kelechi Dueñas MD Abs.Imm.Granulocyte 0.00 k/uL Normal 0.00-0.30 [facility] Comment on above: Performed By: #### C DP, CMPX ####[facility] [address] [place], [place] 3522[address] Lab Director: Kelechi Dueñas MD Abs.Neutrophil (Seg) 6.21 k/uL Normal 1.8-7.7 [facility] Comment on above: Performed By: #### C DP, CMPX ####[place], [place] [address])[phone] Director: Kelechi Dueñas MD Basophils/100 WBC (Bld) 0 % Normal 0-2 M [facility] Comment on above: Performed By: #### C DP, CMPX ####[place], [place] [address])[phone] Director: Kelechi Dueñas MD Eosinophils (Bld) [#/Vol] 0.00 10*3/uL Normal 0.0-0.4 [facility] Comment on above: Performed By: #### C DP, CMPX ####[place], [place] [address])[phone] Director: Kelechi Dueñas MD Eosinophils/100 WBC (Bld) 0 % Low 1-4 [facility] Comment on above: Performed By: #### C DP, CMPX ####[place], [place] [address])[phone] Director: Kelechi Dueñas MD Immature granulocytes/100 WBC (Bld) 0 % Normal 0 [facility] Comment on above: Performed By: #### C DP, CMPX ####[place], [place] [address])[phone] Director: Kelechi Dueñas MD Lymphocytes (Bld) [#/Vol] 0.55 10*3/uL Low 1.0-4.8 [facility] Comment on above: Performed By: #### C DP, CMPX ####[place], [place] [address])[phone] Director: Kelechi Dueñas MD Lymphocytes/100 WBC (Bld) 8 % Low 24-44 [facility] Comment on above: Performed By: #### C DP, CMPX ####[address] [id number])[phone] Director: Kelechi Dueñas MD Monocytes (Bld) [#/Vol] 0.14 10*3/uL Normal 0.1-0.8 [facility] Comment on above: Performed By: #### C DP, CMPX ####[address] [address] Lab Director: Kelechi Dueñas MD Monocytes/100 WBC (Bld) 2 % Normal 1-7 M [facility] Comment on above: Performed By: #### C DP, CMPX ####[address] [id number])[phone] Director: Kelechi Dueñas MD Morphology Gerardo (Bld) [Interp] Normal Normal [facility] Comment on above: Performed By: #### C DP, CMPX ####[address] [phone] Director: Kelechi Dueñas MD Neutrophil (Seg) 90 % High 36-66 [place] Comment on above: Performed By: #### C DP, CMPX ####[address] [id number])[phone] Director: Kelechi Dueñas MD Erythrocyte distribution width (RBC) [Ratio] 12.2 % Normal 11.8-14.4 [facility] Comment on above: Performed By: #### C DP, CMPX ####[address] [id number])[phone] Director: Kelechi Dueñas MD Hematocrit (Bld) [Volume fraction] 33.8 % Low 40.7-50.3 [facility] Comment on above: Performed By: #### C DP, CMPX ####[address] [address] Lab Director: Kelechi Dueñas MD Hemoglobin (Bld) [Mass/Vol] 11.0 g/dL Low 13.0-17.0 [facility] Comment on above: Performed By: #### C DP, CMPX ####[facility] [address] [place] [address] Lab Director: Kelechi Dueñas MD MCH (RBC) [Entitic mass] 28.0 pg Normal 25.2-33.5 [facility] Comment on above: Performed By: #### C DP, CMPX ####[address] [address] lab Director: Kelechi Dueñas MD MCHC (RBC) [Mass/Vol] 32.5 g/dL Normal 28.4-34.8 [facility] Comment on above: Performed By: #### C DP, CMPX ####[address] [address] Lab Director: Kelechi Dueñas MD MCV (RBC) [Entitic vol] 86.0 fL Normal 82.6-102.9 M [facility] Comment on above: Performed By: #### C DP, CMPX ####[address] [address] Lab Director: Kelechi Dueñas MD NRBC Automated 0.0 per 100 WBC Normal 0.0 [facility] Comment on above: Performed By: #### C DP, CMPX ####[facility] [address] [place] [address] Lab Director: Kelechi Dueñas MD Platelet mean volume (Bld) [Entitic vol] 10.2 fL Normal 8.1-13.5 [facility] Comment on above: Performed By: #### C DP, CMPX ####[address] [address] Lab Director: Kelechi Dueñas MD Platelets (Bld) [#/Vol] 235 10*3/uL Normal 138-453 [facility] Comment on above: Performed By: #### C DP, CMPX ####[facility] [address] [place] [address] Lab Director: Kelechi Dueñas MD RBC (Bld) [#/Vol] 3.93 10*6/uL Low 4.21-5.77 [facility] Comment on above: Performed By: #### C DP, CMPX ####[facility] [address] [place] [address] Lab Director: Kelechi Dueñas MD WBC (Bld) [#/Vol] 6.9 10*3/uL Normal 3.5-11.3 [facility] Comment on above: Performed By: #### C DP, CMPX ####[facility] [address] [place], [place] [id number])[phone] Director: Kelechi Dueñas MD CT LUMBAR SPINE WO CONTRASTo n 05-25-2024 CT LUMBAR SPINE WO CONTRAST EXAMINATION: CT OF THE LUMBAR SPINE WITHOUT CONTRAST 05/25/2024 TECHNIQUE: CT of the lumbar spine was performed without the administration of intravenous contrast. Multiplanar reformatted images are provided for review. Adjustment of mA and/or kV according to patient size was utilized. Automated exposure control, iterative reconstruction, and/or weight based adjustment of the mA/kV was utilized to reduce the radiation dose to as low as reasonably achievable. COMPARISON: None HISTORY: ORDERING SYSTEM PROVIDED HISTORY: eval hardware TECHNOLOGIST PROVIDED HISTORY: eval hardware Reason for Exam: PAIN EVAL HARDWARE FINDINGS: BONES/ALIGNMENT: The vertebral body heights are maintained. There is posterior hardware fixation at L4-5 with associated laminectomy. The hardware is intact. There may be minimal lucency developing adjacent to the transpedicular screws at the L5 level. There is no spondylolisthesis. DEGENERATIVE CHANGES: The remaining disc spaces are maintained. There is mild multilevel degenerative facet hypertrophy. There is no significant bony canal stenosis. There is a degree of bilateral bony foraminal narrowing at L5-S1. SOFT TISSUES/RETROPERITONEUM: No paraspinal mass is seen. IMPRESSION: Posterior fixation at L4-5 with associated laminectomy and hardware is intact. Potential minimal lucency developing adjacent to the transpedicular screws at the L5 level. Multilevel degenerative facet hypertrophy with bilateral bony foraminal narrowing at L5-S1. Interpreted by: Samri Chavez MD Signed by: Samir Chavez MD 05/25/24 Final result Normal [facility] CT Lumbar spine WO contrasto n 05-25-2024 MHPN RIS CONSOLIDATED MHPN RIS CONSOLIDATED [facility] Radiology Study observation (narrative) [facility] Comp Metabolic Pr/rfx MGon 0 05-25-2024 Albumin [Mass/Vol] 3.3 g/dL Low 3.5-5.2 [facility] Comment on above: Performed By: #### C DP, CMPX ####[address] [address])[phone] Director: Kelechi Dueñas MD Albumin/Glob Ratio 1.0 Normal 1.0-2.5 [facility] Comment on above: Performed By: #### C DP, CMPX ####[address] [address])[phone] Director: Kelechi Dueñas MD Alkaline Phos 94 U/L Normal 40-129 [facility] Comment on above: Performed By: #### C DP, CMPX ####[address] [id number])[phone] Director: Kelechi Dueñas MD ALT [Catalytic activity/Vol] 22 U/L Normal 10-50 [facility] Comment on above: Performed By: #### C DP, CMPX ####[address] [address])[phone] Director: Kelechi Dueñas MD Anion gap [Moles/Vol] 13 mmol/L Normal 9-16 [facility] Comment on above: Performed By: #### C DP, CMPX ####[address] [id number])[phone] Director: Kelechi Dueñas MD AST [Catalytic activity/Vol] 26 U/L Normal 10-50 [facility] Comment on above: Performed By: #### C DP, CMPX ####[facility] [address] [place], [place] [id number])[phone] Director: Kelechi Dueñas MD Bilirubin [Mass/Vol] 0.4 mg/dL Normal 0.00-1.20 [facility] Comment on above: Performed By: #### C DP, CMPX ####[facility] [address] [place] [address] [id number])[phone] Director: Kelechi Dueñas MD Calcium [Mass/Vol] 8.8 mg/dL Normal 8.6-10.4 [facility] Comment on above: Performed By: #### C DP, CMPX ####[address] [id number])[phone] Director: Kelechi Dueñas MD Chloride [Moles/Vol] 105 mmol/L Normal 98-107 [facility] Comment on above: Performed By: #### C DP, CMPX ####[facility] [address] [place], [place] [id number])[phone] Director: Kelechi Dueñas MD CO2 [Moles/Vol] 17 mmol/L Low 20-31 [facility] Comment on above: Performed By: #### C DP, CMPX ####[facility] [address] [place], [place] [id number])[phone] Director: Kelechi Dueñas MD Creatinine [Mass/Vol] 2.6 mg/dL High 0.70-1.20 [facility] Comment on above: Performed By: #### C DP, CMPX ####[facility] [address] [place], [place] [id number])[phone] Director: Kelechi Dueñas MD GFR/1.73 sq M.predicted among non-blacks MDRD (S/P/Bld) [Vol rate/Area] 26 mL/min/{1.73_m2} Low >60 [facility] Comment on above: Result Comment: These results are not intended for use in patients <18 years of age. eGFR results are calculated without a race factor using the 2020 CKD-EPI equation. Careful clinical correlation is recommended, particularly when comparing to results calculated using previous equations. The CKD-EPI equation is less accurate in patients with extremes of muscle mass, extra-renal metabolism of creatine, excessive creatine ingestion, or following therapy that affects renal tubular secretion. Performed By: #### C DP, CMPX ####[facility] [address] [place] [address])[phone] Director: Kelechi Dueñas MD Glucose [Mass/Vol] 388 mg/dL High 74-99 [facility] Comment on above: Performed By: #### C DP, CMPX ####[facility] [address] [place] [address])[phone] Director: Kelechi Dueñas MD Potassium [Moles/Vol] 4.2 mmol/L Normal 3.7-5.3 [facility] Comment on above: Performed By: #### C DP, CMPX ####[facility] [address] [place] [address])[phone] Director: Kelechi Dueñas MD Protein [Mass/Vol] 6.4 g/dL Low 6.6-8.7 [facility] Comment on above: Performed By: #### C DP, CMPX ####[facility] [address] [place], [place] [address])[phone] Director: Kelechi Dueñas MD Sodium [Moles/Vol] 135 mmol/L Low 136-145 [facility] Comment on above: Performed By: #### C DP, CMPX ####[facility] [address] [place] [address])[phone] Director: Kelechi Dueñas MD Urea nitrogen [Mass/Vol] 60 mg/dL High 8-23 [facility] Comment on above: Performed By: #### C DP, CMPX ####[facility] [address] [place] [id number] lab Director: Kelechi Dueñas MD Comprehensive Metabolic Pane l w/ Reflex to MGon 05-25-2024 Albumin [Mass/Vol] 3.3 g/dL Low 3.5 - 5.2 g/dL [facility] Albumin/Globulin [Mass ratio] 1.0 {ratio} 1.0 - 2.5 [facility] ALP [Catalytic activity/Vol] 94 U/L 40 - 129 U/L [facility] ALT [Catalytic activity/Vol] 22 U/L 10 - 50 U/L [facility] Anion gap [Moles/Vol] 13 mmol/L 9 - 16 mmol/L [facility] AST [Catalytic activity/Vol] 26 U/L 10 - 50 U/L [facility] Bilirubin [Mass/Vol] 0.4 mg/dL 0.00 - 1.20 mg/dL [facility] Calcium [Mass/Vol] 8.8 mg/dL 8.6 - 10. 4 mg/dL [facility] Chloride [Moles/Vol] 105 mmol/L 98 - 10 7 mmol/L [facility] CO2 [Moles/Vol] 17 mmol/L Low 20 - 31 mmol/L [facility] Creatinine [Mass/Vol] 2.6 mg/dL High 0.70 - 1.20 mg/dL [facility] Est, Glom Filt Rate 26 Low - [facility] Glucose [Mass/Vol] 388 mg/dL High 74 - 99 mg/dL [facility] Interpretation and review of laboratory results Abnormal [facility] Potassium [Moles/Vol] 4.2 mmol/L 3.7 - 5.3 mmol/L [facility] Protein [Mass/Vol] 6.4 g/dL Low 6.6 - 8.7 g/dL [facility] Sodium [Moles/Vol] 135 mmol/L Low 136 - 145 mmol/L [facility] Urea nitrogen [Mass/Vol] 60 mg/dL High 8 - 23 mg/dL [facility] Glucose,Whole Bloodon 2023 Glucose [Mass/Vol] 232 mg/dL High 75-110 [facility] Glucose [Mass/Vol] 295 mg/dL High 75-110 [facility] Glucose [Mass/Vol] 386 mg/dL High 75-110 [facility] Glucose [Mass/Vol] 376 mg/dL High 75-110 [facility] POC Glucose Fingerstickon Glucose [Mass/Vol] 232 mg/dL High 75 - 110 mg/dL [facility] Interpretation and review of laboratory results Abnormal [facility] Glucose [Mass/Vol] 295 mg/dL High 75 - 110 mg/dL [facility] Interpretation and review of laboratory results Abnormal [facility] Glucose [Mass/Vol] 386 mg/dL High 75 - 110 mg/dL [facility] Interpretation and review of laboratory results Abnormal [facility] Glucose [Mass/Vol] 376 mg/dL High 75 - 110 mg/dL [facility] Interpretation and review of laboratory results Abnormal [facility] CBC with Auto Differentialon 05-24-2024 Basophils (Bld) [#/Vol] 0.04 10*3/uL [facility] Basophils/100 WBC (Bld) 0 % 0 - 2 % B [facility] Eosinophils (Bld) [#/Vol] 0.11 10*3/uL [facility] Eosinophils/100 WBC (Bld) 1 % 1 - 4 % [facility] Erythrocyte distribution width (RBC) [Ratio] 12.5 % 11.8 - 14.4 % [facility] Hematocrit (Bld) [Volume fraction] 33.3 % Low 40.7 - 50.3 % [facility] Hemoglobin (Bld) [Mass/Vol] 10.8 g/dL Low 13.0 - 17.0 g/dL [facility] Immature granulocytes (Bld) [#/Vol] 0.03 10*3/uL [facility] Immature granulocytes/100 WBC (Bld) 0 % 0 [facility] Interpretation and review of laboratory results Abnormal [facility] Lymphocytes/100 WBC (Bld) 12 % Low 24 - 43 % [facility] Lymphocytes/100 WBC (Bld) 1.25 % [facility] MCH (RBC) [Entitic mass] 28.1 pg 25.2 - 33.5 pg [facility] MCHC (RBC) [Mass/Vol] 32.4 g/dL 28.4 - 34.8 g/dL [facility] MCV (RBC) [Entitic vol] 86.7 fL 82.6 - 102.9 fL [facility] Monocytes/100 WBC (Bld) 12 % 3 - 12 % B ON [facility] Monocytes/100 WBC (Bld) 1.22 % High B ON [facility] Neutrophils/100 WBC (Bld) 75 % High 36 - 65 % [facility] Nucleated RBC/100 WBC (Bld) [Ratio] 0.0 % 0.0 per 100 WBC [facility] Platelet mean volume (Bld) [Entitic vol] 10.2 fL 8.1 - 13.5 fL [facility] Platelets (Bld) [#/Vol] 230 10*3/uL [facility] RBC (Bld) [#/Vol] 3.84 10*6/uL Low 4.21 - 5.77 m/uL [facility] Segmented neutrophils/100 WBC (Bld) 7.72 % [facility] WBC other (Bld) [#/Vol] 10.4 B ON [facility] CBC with Diffon 05-24-2024 Abs. Basophil 0.04 k/uL Normal 0.00-0.20 [facility] Comment on above: Performed By: #### C MPX, CDP, LACTIC ####[facility] [address] [place] [id number] [facility] Director: Kelechi Dueñas MD Abs.Imm.Granulocyte 0.03 k/uL Normal 0.00-0.30 [facility] Comment on above: Performed By: #### C MPX, CDP, LACTIC ####[address] [address] Lab Director: Kelechi Dueñas MD Abs.Neutrophil (Seg) 7.72 k/uL Normal 1.50-8.10 [facility] Comment on above: Performed By: #### C MPX, CDP, LACTIC ####[facility] [address] [place] [address])[phone] Director: Kelechi Dueñas MD Basophils/100 WBC (Bld) 0 % Normal 0-2 [facility] Comment on above: Performed By: #### C MPX, CDP, LACTIC ####[place], [place] [address])[phone] Director: Kelechi Dueñas MD Eosinophils (Bld) [#/Vol] 0.11 10*3/uL Normal 0.00-0.44 [facility] Comment on above: Performed By: #### C MPX, CDP, LACTIC ####[address] [address])[phone] Director: Kelechi Dueñas MD Eosinophils/100 WBC (Bld) 1 % Normal 1-4 [facility] Comment on above: Performed By: #### C MPX, CDP, LACTIC ####[place], [place] [address])[phone] Director: Kelechi Dueñas MD Erythrocyte distribution width (RBC) [Ratio] 12.5 % Normal 11.8-14.4 [facility] Comment on above: Performed By: #### C MPX, CDP, LACTIC ####[facility] [address] [place], [place] [address])[phone] Director: Kelechi Dueñas MD Hematocrit (Bld) [Volume fraction] 33.3 % Low 40.7-50.3 [facility] Comment on above: Performed By: #### C MPX, CDP, LACTIC ####[facility] [address] [place] [address])[phone] Director: Kelechi Dueñas MD Hemoglobin (Bld) [Mass/Vol] 10.8 g/dL Low 13.0-17.0 [facility] Comment on above: Performed By: #### C MPX, CDP, LACTIC ####[facility] [address] [place] [address] [id number])[phone] Director: Kelechi Dueñas MD Immature granulocytes/100 WBC (Bld) 0 % Normal 0 [facility] Comment on above: Performed By: #### C MPX, CDP, LACTIC ####[address] [id number])[phone] Director: Kelechi Dueñas MD Lymphocytes (Bld) [#/Vol] 1.25 10*3/uL Normal 1.10-3.70 [facility] Comment on above: Performed By: #### C MPX, CDP, LACTIC ####[address] [address])[phone] Director: Kelechi Dueñas MD Lymphocytes/100 WBC (Bld) 12 % Low 24-43 [facility] Comment on above: Performed By: #### C MPX, CDP, LACTIC ####[facility] [address] [place] [address] [id number])[phone] Director: Kelechi Dueñas MD MCH (RBC) [Entitic mass] 28.1 pg Normal 25.2-33.5 [facility] Comment on above: Performed By: #### C MPX, CDP, LACTIC ####[facility] [address] [place], [place] [id number])[phone] Director: Kelechi Dueñas MD MCHC (RBC) [Mass/Vol] 32.4 g/dL Normal 28.4-34.8 [facility] Comment on above: Performed By: #### C MPX, CDP, LACTIC ####[facility] [address] [place] [address])[phone] Director: Kelechi Dueñas MD MCV (RBC) [Entitic vol] 86.7 fL Normal 82.6-102.9 M [facility] Comment on above: Performed By: #### C MPX, CDP, LACTIC ####[facility] [address] [place], [place] [address])[phone] Director: Kelechi Dueñas MD Monocytes (Bld) [#/Vol] 1.22 10*3/uL High 0.10-1.20 [facility] Comment on above: Performed By: #### C MPX, CDP, LACTIC ####[place], [place] [address])[phone] Director: Kelechi Dueñas MD Monocytes/100 WBC (Bld) 12 % Normal 3-12 [facility] Comment on above: Performed By: #### C MPX, CDP, LACTIC ####[place], [place] [address])[phone] Director: Kelechi Dueñas MD Neutrophil (Seg) 75 % High 36-65 [place] Comment on above: Performed By: #### C MPX, CDP, LACTIC ####[place], [place] [address])[phone] Director: Kelechi Dueñas MD NRBC Automated 0.0 per 100 WBC Normal 0.0 [facility] Comment on above: Performed By: #### C MPX, CDP, LACTIC ####[facility] [address] [place], [place] [address])[phone] Director: Kelechi Dueñas MD Platelet mean volume (Bld) [Entitic vol] 10.2 fL Normal 8.1-13.5 [facility] Comment on above: Performed By: #### C MPX, CDP, LACTIC ####[facility] [address] [place], [place] [id number])[phone] Director: Kelechi Dueñas MD Platelets (Bld) [#/Vol] 230 10*3/uL Normal 138-453 [facility] Comment on above: Performed By: #### C MPX, CDP, LACTIC ####[facility] [address] [place], [place] [id number])[phone] Director: Kelechi Dueñas MD RBC (Bld) [#/Vol] 3.84 10*6/uL Low 4.21-5.77 [facility] Comment on above: Performed By: #### C MPX, CDP, LACTIC ####[facility] [address]vkrk[address] [place], [place] [id number])[phone] Director: Kelcehi Dueñas MD WBC (Bld) [#/Vol] 10.4 10*3/uL Normal 3.5-11.3 [facility] Comment on above: Performed By: #### C MPX, CDP, LACTIC ####[facility] [address] [place], [place] [id number])[phone] Director: Kelechi Dueñas MD Comp Metabolic Pr/rfx MGon 0 - Albumin [Mass/Vol] 3.5 g/dL Normal 3.5-5.2 [facility] Comment on above: Performed By: #### C MPX, CDP, LACTIC ####[facility] [address] [place], [place] [id number])[phone] Director: Kelechi Dueñas MD Albumin/Glob Ratio 1.0 Normal 1.0-2.5 [facility] Comment on above: Performed By: #### C MPX, CDP, LACTIC ####[facility] [address] [place], [place] [id number])[phone] Director: Kelechi Dueñas MD Alkaline Phos 92 U/L Normal 40-129 [facility] Comment on above: Performed By: #### C MPX, CDP, LACTIC ####[facility] [address] [place], [place] [id number])[phone] Director: Kelechi Dueñas MD ALT [Catalytic activity/Vol] 12 U/L Normal 10-50 [facility] Comment on above: Performed By: #### C MPX, CDP, LACTIC ####[facility] [address] [place], [place] [id number])[phone] Director: Kelechi Dueñas MD Anion gap [Moles/Vol] 9 mmol/L Normal 9-16 [facility] Comment on above: Performed By: #### C MPX, CDP, LACTIC ####[facility] [address] [place], [place] [id number])[phone] Director: Kelechi Dueñas MD AST [Catalytic activity/Vol] 18 U/L Normal 10-50 [facility] Comment on above: Performed By: #### C MPX, CDP, LACTIC ####[facility] [address] [place], [place] [id number])[phone] Director: Kelechi Dueñas MD Bilirubin [Mass/Vol] 0.5 mg/dL Normal 0.00-1.20 [facility] Comment on above: Performed By: #### C MPX, CDP, LACTIC ####[facility] [address] [place], [place] [id number])[phone] Director: Kelechi Dueñas MD Calcium [Mass/Vol] 9.1 mg/dL Normal 8.6-10.4 [facility] Comment on above: Performed By: #### C MPX, CDP, LACTIC ####[facility] [address] [place], [place] [id number])[phone] Director: Kelechi Dueñas MD Chloride [Moles/Vol] 108 mmol/L High 98-107 [facility] Comment on above: Performed By: #### C MPX, CDP, LACTIC ####[facility] [address] [place] [address] Lab Director: Kelechi Dueñas MD CO2 [Moles/Vol] 21 mmol/L Normal 20-31 [facility] Comment on above: Performed By: #### C MPX, CDP, LACTIC ####[facility] [address] [place] [address] Lab Director: Kelechi Dueñas MD Creatinine [Mass/Vol] 2.4 mg/dL High 0.70-1.20 [facility] Comment on above: Performed By: #### C MPX, CDP, LACTIC ####[facility] [address] [place] [address] Lab Director: Kelechi Dueñas MD GFR/1.73 sq M.predicted among non-blacks MDRD (S/P/Bld) [Vol rate/Area] 28 mL/min/{1.73_m2} Low >60 [facility] Comment on above: Result Comment: These results are not intended for use in patients <18 years of age. eGFR results are calculated without a race factor using the 2020 CKD-EPI equation. Careful clinical correlation is recommended, particularly when comparing to results calculated using previous equations. The CKD-EPI equation is less accurate in patients with extremes of muscle mass, extra-renal metabolism of creatine, excessive creatine ingestion, or following therapy that affects renal tubular secretion. Performed By: #### C MPX, CDP, LACTIC ####[facility] [address] [place] [address] Lab Director: Kelechi Dueñas MD Glucose [Mass/Vol] 97 mg/dL Normal 74-99 [facility] Comment on above: Performed By: #### C MPX, CDP, LACTIC ####[facility] [address] [place], [place] [id number])[phone] Director: Kelechi Dueñas MD Potassium [Moles/Vol] 4.7 mmol/L Normal 3.7-5.3 [facility] Comment on above: Performed By: #### C MPX, CDP, LACTIC ####[facility] [address] [place] [address] lab Director: Kelechi Dueñas MD Protein [Mass/Vol] 6.3 g/dL Low 6.6-8.7 [facility] Comment on above: Performed By: #### C MPX, CDP, LACTIC ####[facility] [address] [place] [address] lab Director: Kelechi Dueñas MD Sodium [Moles/Vol] 138 mmol/L Normal 136-145 [facility] Comment on above: Performed By: #### C MPX, CDP, LACTIC ####[facility] [address] [place] [address] lab Director: Kelechi Dueñas MD Urea nitrogen [Mass/Vol] 48 mg/dL High 8-23 [facility] Comment on above: Performed By: #### C MPX, CDP, LACTIC ####[facility] [address] [place] [address] lab Director: Kelechi Dueñas MD Comprehensive Metabolic Pane l w/ Reflex to MGon 05-24-2024 Albumin [Mass/Vol] 3.5 g/dL 3.5 - 5.2 g/dL [facility] Albumin/Globulin [Mass ratio] 1.0 {ratio} 1.0 - 2.5 [facility] ALP [Catalytic activity/Vol] 92 U/L 40 - 129 U/L [facility] ALT [Catalytic activity/Vol] 12 U/L 10 - 50 U/L [facility] Anion gap [Moles/Vol] 9 mmol/L 9 - 16 mmol/L [facility] AST [Catalytic activity/Vol] 18 U/L 10 - 50 U/L [facility] Bilirubin [Mass/Vol] 0.5 mg/dL 0.00 - 1.20 mg/dL [facility] Calcium [Mass/Vol] 9.1 mg/dL 8.6 - 10. 4 mg/dL [facility] Chloride [Moles/Vol] 108 mmol/L High 98 - 10 7 mmol/L [facility] CO2 [Moles/Vol] 21 mmol/L 20 - 31 mmol/L [facility] Creatinine [Mass/Vol] 2.4 mg/dL High 0.70 - 1.20 mg/dL [facility] Est, Glom Filt Rate 28 Low - [facility] Glucose [Mass/Vol] 97 mg/dL 74 - 99 mg/dL [facility] Interpretation and review of laboratory results Abnormal [facility] Potassium [Moles/Vol] 4.7 mmol/L 3.7 - 5.3 mmol/L [facility] Protein [Mass/Vol] 6.3 g/dL Low 6.6 - 8.7 g/dL [facility] Sodium [Moles/Vol] 138 mmol/L 136 - 145 mmol/L [facility] Urea nitrogen [Mass/Vol] 48 mg/dL High 8 - 23 mg/dL [facility] Cult,Urineon 05-24-2024 Cult,Urine Specimen Description .CLEAN CATCH URINE Special Requests Site: Urine Culture NO GROWTH Report Status FINAL 05/24/2024 Normal [facility] Comment on above: Performed By: #### U ####[place] [place] [address] lab Director: Kelechi Dueñas MD Culture, Urineon 05-24-2024 Microorganism identified Cx Nom (Unsp spec) NO GROWTH [facility] Service comment (Unsp spec) [Interp] Site: Urine [facility] Specimen Description .CLEAN CATCH URINE [facility] Glucose,Whole Bloodon 2023 Glucose [Mass/Vol] 238 mg/dL High 75-110 [facility] Glucose [Mass/Vol] 192 mg/dL High 75-110 [facility] Glucose [Mass/Vol] 103 mg/dL Normal 75-110 [facility] Glucose [Mass/Vol] 101 mg/dL Normal 75-110 [facility] Lactic Acidon 05-24-2024 Lactic Acid, Whole Blood 0.8 mmol/L 0.7 - 2.1 mmol/L [facility] Lactic Acid,Whole Bl 0.8 mmol/L Normal 0.7-2.1 [facility] Comment on above: Performed By: #### C MPX, CDP, LACTIC ####[facility] [address] [place] [address] [facility] Director: Kelechi Dueñas MD MR Brain WO contraston 05-24 [facility] MR Cervical spine WO contras ton 05-24-2024 [facility] Radiology Study observation (narrative) [facility] MR Cervical spine WO contras tOrdered By: Hema Chavez on 05-24-2024 [facility] Work Phone: MR Lumbar spine WO contrasto n 05-24-2024 [facility] MR Lumbar spine WO contrastO rdered By: Samir Chavez on 05-24-2024 [facility] Work Phone: MRI BRAIN WO CONTRASTon 05-06 MRI BRAIN WO CONTRAST EXAMINATION: MRI OF THE BRAIN WITHOUT CONTRAST 05/24/2024 3:24 pm TECHNIQUE: Multiplanar multisequence MRI of the brain was performed without the administration of intravenous contrast. COMPARISON: None. HISTORY: ORDERING SYSTEM PROVIDED HISTORY: Right leg weakness TECHNOLOGIST PROVIDED HISTORY: Right leg weakness What is the sedation requirement?->None Reason for Exam: Right leg weakness FINDINGS: INTRACRANIAL STRUCTURES/VENTRICLES: The sellar and suprasellar structures, optic chiasm, corpus callosum, pineal gland, tectum, and midline brainstem structures are unremarkable. The craniocervical junction is unremarkable. There is no acute hemorrhage, mass effect, or midline shift. There is satisfactory overall bautista-white matter differentiation. There is chronic microvascular disease. The ventricular structures are symmetric and unremarkable. The infratentorial structures including the cerebellopontine angles and internal auditory canals are unremarkable. There is no abnormal restricted diffusion. There is no abnormal blooming artifact on susceptibility weighted imaging. ORBITS: The visualized portion of the orbits demonstrate no acute abnormality. SINUSES: There is opacification of the left maxillary sinus likely related to chronic sinusitis. The mastoid air cells are normally aerated. BONES/SOFT TISSUES: The bone marrow signal intensity appears normal. The soft tissues demonstrate no acute abnormality. IMPRESSION: Chronic microvascular disease without acute intracranial abnormality. Chronic sinusitis of the left maxillary sinus. Interpreted by: Samir Chavez MD Signed by: Samir Chavez MD 05/24/24 Final result Normal [facility] MRI CERVICAL SPINE WO CONTRA STon 05-24-2024 MRI CERVICAL SPINE WO CONTRAST EXAMINATION: MRI OF THE CERVICAL SPINE WITHOUT CONTRAST 05/24/2024 10:56 pm TECHNIQUE: Multiplanar multisequence MRI of the cervical spine was performed without the administration of intravenous contrast. COMPARISON: None. HISTORY: ORDERING SYSTEM PROVIDED HISTORY: assess for stenosis TECHNOLOGIST PROVIDED HISTORY: assess for stenosis Reason for Exam: assess for stenosis FINDINGS: Motion limited evaluation. BONES/ALIGNMENT: Vertebral heights are maintained. There is straightening of the cervical lordosis without spondylolisthesis. Edematous degenerative changes are present at C6-7. SPINAL CORD: Abnormal bilateral paracentral spinal cord T2 hyperintensity at the C4-5 level. No mass or abnormal fluid collection within the spinal canal. SOFT TISSUES: Paraspinal soft tissues are unremarkable. C2-C3: Disc height and signal maintained. No significant neural foraminal narrowing or spinal canal stenosis. C3-C4: Mild disc height loss and desiccation. Severe bilateral neural foraminal narrowing secondary to uncovertebral hypertrophy. Severe spinal canal stenosis secondary to disc bulge and left posterior paracentral disc protrusion with flattening of the spinal cord. C4-C5: Mild disc height loss and desiccation. Severe bilateral neural foraminal narrowing secondary to uncovertebral hypertrophy. Severe spinal canal stenosis secondary to disc bulge with flattening of the spinal cord. C5-C6: Mild disc height loss and desiccation. Severe left and moderate right neural foraminal narrowing secondary to uncovertebral hypertrophy. Mild spinal canal stenosis secondary to disc bulge. C6-C7: Severe disc height loss and desiccation. Severe bilateral neural foraminal narrowing secondary to uncovertebral hypertrophy. Moderate spinal canal stenosis secondary to disc bulge and ligamentum flavum hypertrophy. C7-T1: Mild disc height loss and desiccation. Mild left neural foraminal narrowing secondary to uncovertebral and facet hypertrophy. No right neural foraminal narrowing. Mild spinal canal stenosis secondary to disc bulge. IMPRESSION: 1. Motion limited evaluation. 2. Severe spinal canal stenosis at C3-4 and C4-5 with flattening of the spinal cord and abnormal bilateral paracentral cord T2 hyperintensity at the C4-5 level consistent with spondylotic myelomalacia, although a component of cord edema may be present. 3. Moderate spinal canal stenosis at C6-7. 4. Moderate and severe multilevel neural foraminal narrowing as detailed above. Interpreted by: Hema Chavez MD Signed by: Hema Chavez MD 05/24/24 Final result Normal [facility] MRI LUMBAR SPINE WO CONTRAST on 05-24-2024 MRI LUMBAR SPINE WO CONTRAST EXAMINATION: MRI OF THE LUMBAR SPINE WITHOUT CONTRAST, 05/24/2024 3:24 pm TECHNIQUE: Multiplanar multisequence MRI of the lumbar spine was performed without the administration of intravenous contrast. COMPARISON: None. HISTORY: ORDERING SYSTEM PROVIDED HISTORY: acute onset RLE severe, radiating pain / allodynia TECHNOLOGIST PROVIDED HISTORY: acute onset RLE severe, radiating pain / allodynia What is the sedation requirement?->None Reason for Exam: acute onset RLE severe, radiating pain / allodynia FINDINGS: BONES/ALIGNMENT: The vertebral body heights are maintained. There is age-appropriate bone marrow signal. There is posterior fixation at L4-5 without complication. There is multilevel degenerative disc disease at the remaining levels with loss of disc signal. There is no spondylolisthesis. SPINAL CORD: The conus terminates normally. SOFT TISSUES: No paraspinal mass identified. L1-L2: There is a circumferential disc bulge with facet hypertrophy. There is no canal stenosis or foraminal narrowing. L2-L3: There is a circumferential disc bulge with facet and ligamentous hypertrophy. There is no canal stenosis or foraminal narrowing. L3-L4: There is a circumferential disc bulge with facet and ligamentous hypertrophy. There is canal stenosis measuring 6 mm in AP dimension. There is narrowing of the lateral recesses. There is ltkc-gb-wafctobq left and moderate right foraminal narrowing. L4-L5: There is a circumferential disc bulge with posterior laminectomy. There is no canal stenosis. There is moderate foraminal narrowing. L5-S1: There is a circumferential disc bulge with facet hypertrophy. There is no canal stenosis. There is moderate to severe left and severe right foraminal narrowing. IMPRESSION: Multilevel degenerative change with canal stenosis at L3-4. Foraminal narrowing as described above. Posterior fixation and laminectomy at L4-5 without complication. Interpreted by: Samir Cahvez MD Signed by: Samir Chavez MD 05/24/24 Final result Normal [facility] No Panel Informationon 05-24 Radiology Study observation (narrative) [facility] Glucose Fingerstickon Glucose [Mass/Vol] 238 mg/dL High 75 - 110 mg/dL [facility] Interpretation and review of laboratory results Abnormal [facility] Glucose [Mass/Vol] 192 mg/dL High 75 - 110 mg/dL [facility] Interpretation and review of laboratory results Abnormal [facility] Glucose [Mass/Vol] 103 mg/dL 75 - 110 mg/dL [facility] Glucose [Mass/Vol] 101 mg/dL 75 - 110 mg/dL [facility] Vascular duplex lower extrem ity arteries righton 05-24-2024 Body surface area Derived from formula 1.82 m2 [facility] Right SHAYLA mid PSV 46.2 cm/s [facility] Right INTERIOR DESIGN CONSULTANT prox PSV 134.0 cm/s [facility] Right INTERIOR DESIGN CONSULTANT prox PSV 117.0 cm/s [facility] Right INTERIOR DESIGN CONSULTANT dany ratio 2.0 [facility] Right EIA dist PSV 68.0 cm/s [facility] Right peronal mid PSV 71.9 cm/s [facility] Right Pop A dist PSV 106.0 cm/s [facility] Right Pop A prox PSV 105.0 cm/s [facility] Right TANK FILLER mid PSV 90.1 cm/s [facility] Right SFA mid PSV 107.0 cm/s [facility] Right SFA mid dany ratio 0.9 [facility] Right SFA prox PSV 115.0 cm/s [facility] Right SFA prox dany ratio 0.9 [facility] CV CPACS [facility] Radiology Study observation (narrative) [facility] Vascular duplex lower extrem ity venous rightOrdered By: Kenny Lindsay on 05-24-2024 Body surface area Derived from formula 1.82 m2 [facility] [employer] Work Phone: [facility] Work Phone: Vascular duplex lower extrem ity venous righton 05-24-2024 [facility] CV [facility] Radiology Study observation (narrative) [facility] XR SPINE ENTIRE (2-3 VIEWS)o n 05-24-2024 XR SPINE ENTIRE (2-3 VIEWS) EXAMINATION: TWO XRAY VIEWS SCOLIOSIS SERIES 05/24/2024 6:50 pm COMPARISON: MRI lumbar spine 05/24/2024. HISTORY: ORDERING SYSTEM PROVIDED HISTORY: standing Ap and lateral full spine -- C2 to pelvix AND include both femoral heads TECHNOLOGIST PROVIDED HISTORY: standing Ap and lateral full spine -- C2 to pelvix AND include both femoral heads FINDINGS: Status post posterior fusion and discectomy at L4-5 without complication identified. Mild levoscoliosis of the lower thoracic spine with a Raza angle of approximately 6 degrees. Mild dextroscoliosis of the lumbar spine with a Raza angle approximately 8 degrees. Normal alignment is otherwise maintained. The vertebral body heights are preserved. No fracture or other acute osseous abnormality identified. Mild multilevel degenerative disc disease throughout the thoracic and lumbar spine. The bilateral sacroiliac joints are intact. The bilateral hips are grossly unremarkable. The soft tissues are unremarkable. IMPRESSION: 1. Mild levoscoliosis of the lower thoracic spine and mild dextroscoliosis of the lumbar spine. 2. Status post posterior fusion and discectomy at L4-5 without complication identified. Interpreted by: Ascencion Dickson MD Signed by: Ascencion Dickson MD 05/24/24 Final result Normal [facility] XR Spine 2 Viewson [facility]PN RIS CONSOLIDATED [facility] RIS CONSOLIDATED [facility] Radiology Study observation (narrative) [facility] XR Spine 2 ViewsOrdered By: Ascencion Dickson on 05-24-2024 [facility] Work Phone: C-Reactive Proteinon 024 CRP High sensitivity method [Mass/Vol] 124.0 mg/L High 0.0 - 5.0 mg/L [facility] Interpretation and review of laboratory results Abnormal [facility] CRP [Mass/Vol] 124.0 mg/L High 0.0-5.0 [facility] Comment on above: Performed By: #### S ED, CDP, CRP, CP ####[facility] [address] [place] [address] lab Director: Kelechi Dueñas MD CBC with Auto Differentialon 05-23-2024 Basophils (Bld) [#/Vol] 0.00 10*3/uL [facility] Basophils/100 WBC (Bld) 0 % 0 - 2 % [facility] Eosinophils (Bld) [#/Vol] 0.13 10*3/uL [facility] Eosinophils/100 WBC (Bld) 1 % 1 - 4 % [facility] Erythrocyte distribution width (RBC) [Ratio] 12.6 % 11.8 - 14.4 % [facility] Hematocrit (Bld) [Volume fraction] 33.8 % Low 40.7 - 50.3 % [facility] Hemoglobin (Bld) [Mass/Vol] 11.0 g/dL Low 13.0 - 17.0 g/dL [facility] Immature granulocytes (Bld) [#/Vol] 0.00 10*3/uL [facility] Immature granulocytes/100 WBC (Bld) 0 % 0 [facility] Interpretation and review of laboratory results Abnormal [facility] Lymphocytes/100 WBC (Bld) 10 % Low 24 - 43 % [facility] Lymphocytes/100 WBC (Bld) 1.25 % [facility] MCH (RBC) [Entitic mass] 28.1 pg 25.2 - 33.5 pg [facility] MCHC (RBC) [Mass/Vol] 32.5 g/dL 28.4 - 34.8 g/dL [facility] MCV (RBC) [Entitic vol] 86.2 fL 82.6 - 102.9 fL [facility] Monocytes/100 WBC (Bld) 13 % High 3 - 12 % [facility] Monocytes/100 WBC (Bld) 1.63 % High [facility] [employer] Morphology Gerardo (Bld) [Interp] Normal [facility] Neutrophils/100 WBC (Bld) 76 % High 36 - 65 % [facility] Nucleated RBC/100 WBC (Bld) [Ratio] 0.0 % 0.0 per 100 WBC [facility] Platelet mean volume (Bld) [Entitic vol] 10.0 fL 8.1 - 13.5 fL [facility] Platelets (Bld) [#/Vol] 220 10*3/uL [facility] RBC (Bld) [#/Vol] 3.92 10*6/uL Low 4.21 - 5.77 m/uL [facility] Segmented neutrophils/100 WBC (Bld) 9.49 % High [facility] WBC other (Bld) [#/Vol] 12.5 High B ON [facility] CBC with Diffon 05-23-2024 Abs. Basophil 0.00 k/uL Normal 0.00-0.20 [facility] Comment on above: Performed By: #### S ED, CDP, CRP, CP ####[facility] [address] [place] [address] Lab Director: Kelechi Dueñas MD Abs.Imm.Granulocyte 0.00 k/uL Normal 0.00-0.30 [facility] Comment on above: Performed By: #### S ED, CDP, CRP, CP ####[facility] [address] [place] [address] Lab Director: Kelechi Dueñas MD Abs.Neutrophil (Seg) 9.49 k/uL High 1.50-8.10 [facility] Comment on above: Performed By: #### S ED, CDP, CRP, CP ####[facility] [address] [place] [address] Lab Director: Kelechi Dueñas MD Basophils/100 WBC (Bld) 0 % Normal 0-2 M [facility] Comment on above: Performed By: #### S ED, CDP, CRP, CP ####[facility] [address] [place] [address] [id number])[phone] Director: Kelechi Dueñas MD Eosinophils (Bld) [#/Vol] 0.13 10*3/uL Normal 0.00-0.44 [facility] Comment on above: Performed By: #### S ED, CDP, CRP, CP ####[facility] [address] [place] [address])[phone] Director: Kelechi Dueñas MD Eosinophils/100 WBC (Bld) 1 % Normal 1-4 [facility] Comment on above: Performed By: #### S ED, CDP, CRP, CP ####[place], [place] [address])[phone] Director: Kelechi Dueñas MD Immature granulocytes/100 WBC (Bld) 0 % Normal 0 [facility] Comment on above: Performed By: #### S ED, CDP, CRP, CP ####[facility] [address] [place], [place] [address])[phone] Director: Kelechi Dueñas MD Lymphocytes (Bld) [#/Vol] 1.25 10*3/uL Normal 1.10-3.70 [facility] Comment on above: Performed By: #### S ED, CDP, CRP, CP ####[facility] [address] [place] [address])[phone] Director: Kelechi Dueñas MD Lymphocytes/100 WBC (Bld) 10 % Low 24-43 [facility] Comment on above: Performed By: #### S ED, CDP, CRP, CP ####[facility] [address] [place], [place] [address])[phone] Director: Kelechi Dueñas MD Monocytes (Bld) [#/Vol] 1.63 10*3/uL High 0.10-1.20 [facility] Comment on above: Performed By: #### S ED, CDP, CRP, CP ####[facility] [address] [place] [address] Lab Director: Kelechi Dueñas MD Monocytes/100 WBC (Bld) 13 % High 3-12 M [facility] Comment on above: Performed By: #### S ED, CDP, CRP, CP ####[facility] [address] [place] [address] Lab Director: Kelechi Dueñas MD Morphology Gerardo (Bld) [Interp] Normal Normal [facility] Comment on above: Performed By: #### S ED, CDP, CRP, CP ####[address] [address] Lab Director: Kelechi Dueñas MD Neutrophil (Seg) 76 % High 36-65 [place] Comment on above: Performed By: #### S ED, CDP, CRP, CP ####[address] [address] Lab Director: Kelechi Dueñas MD Erythrocyte distribution width (RBC) [Ratio] 12.6 % Normal 11.8-14.4 [facility] Comment on above: Performed By: #### S ED, CDP, CRP, CP ####[facility] [address] [place] [address] Lab Director: Kelechi Duñeas MD Hematocrit (Bld) [Volume fraction] 33.8 % Low 40.7-50.3 [facility] Comment on above: Performed By: #### S ED, CDP, CRP, CP ####[facility] [address] [place], [place] [id number])[phone] Director: Kelechi Dueñas MD Hemoglobin (Bld) [Mass/Vol] 11.0 g/dL Low 13.0-17.0 [facility] Comment on above: Performed By: #### S ED, CDP, CRP, CP ####[facility] [address] [place] [address] [id number])[phone] Director: Kelechi Dueñas MD MCH (RBC) [Entitic mass] 28.1 pg Normal 25.2-33.5 [facility] Comment on above: Performed By: #### S ED, CDP, CRP, CP ####[facility] [address] [place] [address] [id number])[phone] Director: Kelechi Dueñas MD MCHC (RBC) [Mass/Vol] 32.5 g/dL Normal 28.4-34.8 [facility] Comment on above: Performed By: #### S ED, CDP, CRP, CP ####[address] [id number])[phone] Director: Kelechi Dueñas MD MCV (RBC) [Entitic vol] 86.2 fL Normal 82.6-102.9 M [facility] Comment on above: Performed By: #### S ED, CDP, CRP, CP ####[facility] [address] [place] [address] [id number])[phone] Director: Kelechi Dueñas MD NRBC Automated 0.0 per 100 WBC Normal 0.0 [facility] Comment on above: Performed By: #### S ED, CDP, CRP, CP ####[facility] [address] [place] [address] [id number])[phone] Director: Kelechi Dueñas MD Platelet mean volume (Bld) [Entitic vol] 10.0 fL Normal 8.1-13.5 [facility] Comment on above: Performed By: #### S ED, CDP, CRP, CP ####[facility] [address] [place], [place] [id number])[phone] Director: Kelechi Dueñas MD Platelets (Bld) [#/Vol] 220 10*3/uL Normal 138-453 [facility] Comment on above: Performed By: #### S ED, CDP, CRP, CP ####[facility] [address] [place] [address] Lab Director: Kelechi Dueñas MD RBC (Bld) [#/Vol] 3.92 10*6/uL Low 4.21-5.77 [facility] Comment on above: Performed By: #### S ED, CDP, CRP, CP ####[facility] [address] [place], [place] [id number])[phone] Director: Kelechi Dueñas MD WBC (Bld) [#/Vol] 12.5 10*3/uL High 3.5-11.3 [facility] Comment on above: Performed By: #### S ED, CDP, CRP, CP ####[facility] [address] [place] [address] Lab Director: Kelechi Dueñas MD [facility] 05-23-2024 CK [Catalytic activity/Vol] 31 U/L Low 39 - 308 U/L [facility] Interpretation and review of laboratory results Abnormal [facility] CK [Catalytic activity/Vol] 31 U/L Low 39 - 308 U/L [facility] Interpretation and review of laboratory results Abnormal [facility] Comp Metabolic Profon 2023 Albumin [Mass/Vol] 3.5 g/dL Normal 3.5-5.2 [facility] Comment on above: Performed By: #### S ED, CDP, CRP, CP ####[facility] [address] [place], [place] [id number])[phone] Director: Kelechi Dueñas MD Albumin/Glob Ratio 1.0 Normal 1.0-2.5 [facility] Comment on above: Performed By: #### S ED, CDP, CRP, CP ####[facility] [address] [place], [place] [phone] Director: Kelechi Dueñas MD Alkaline Phos 90 U/L Normal 40-129 [facility] Comment on above: Performed By: #### S ED, CDP, CRP, CP ####[facility] [address] [place], [place] [id number])[phone] Director: Kelechi Dueñas MD ALT [Catalytic activity/Vol] 15 U/L Normal 10-50 [facility] Comment on above: Performed By: #### S ED, CDP, CRP, CP ####[facility] [address] [place], [place] [id number])[phone] Director: Kelechi Dueñas MD Anion gap [Moles/Vol] 13 mmol/L Normal 9-16 [facility] Comment on above: Performed By: #### S ED, CDP, CRP, CP ####[facility] [address] [place], [place] [id number])[phone] Director: Kelechi Dueñas MD AST [Catalytic activity/Vol] 22 U/L Normal 10-50 [facility] Comment on above: Performed By: #### S ED, CDP, CRP, CP ####[facility] [address] [place], [place] [id number])[phone] Director: Kelechi Dueñas MD Bilirubin [Mass/Vol] 0.5 mg/dL Normal 0.00-1.20 [facility] Comment on above: Performed By: #### S ED, CDP, CRP, CP ####[facility] [address] [place], [place] [id number])[phone] Director: Kelechi Dueñas MD Calcium [Mass/Vol] 8.9 mg/dL Normal 8.6-10.4 [facility] Comment on above: Performed By: #### S ED, CDP, CRP, CP ####[facility] [address] [place], [place] [id number])[phone] Director: Kelechi Dueñas MD Chloride [Moles/Vol] 105 mmol/L Normal 98-107 [facility] Comment on above: Performed By: #### S ED, CDP, CRP, CP ####[facility] [address] [place], [place] [id number])[phone] Director: Kelechi Dueñas MD CO2 [Moles/Vol] 17 mmol/L Low 20-31 [facility] Comment on above: Performed By: #### S ED, CDP, CRP, CP ####[facility] [address] [place], [place] [id number])[phone] Director: Kelechi Dueñas MD Creatinine [Mass/Vol] 2.5 mg/dL High 0.70-1.20 [facility] Comment on above: Performed By: #### S ED, CDP, CRP, CP ####[address] [phone])[phone] Director: Kelechi Dueñas MD GFR/1.73 sq M.predicted among non-blacks MDRD (S/P/Bld) [Vol rate/Area] 26 mL/min/{1.73_m2} Low >60 [facility] Comment on above: Result Comment: These results are not intended for use in patients <18 years of age. eGFR results are calculated without a race factor using the 2020 CKD-EPI equation. Careful clinical correlation is recommended, particularly when comparing to results calculated using previous equations. The CKD-EPI equation is less accurate in patients with extremes of muscle mass, extra-renal metabolism of creatine, excessive creatine ingestion, or following therapy that affects renal tubular secretion. Performed By: #### S ED, CDP, CRP, CP ####[facility] [address] [place], [place] [id number])[phone] Director: Kelechi Dueñas MD Glucose [Mass/Vol] 127 mg/dL High 74-99 [facility] Comment on above: Performed By: #### S ED, CDP, CRP, CP ####[facility] [address] [place], [place] [id number])[phone] Director: Kelechi Dueñas MD Potassium [Moles/Vol] 3.9 mmol/L Normal 3.7-5.3 [facility] Comment on above: Performed By: #### S ED, CDP, CRP, CP ####[facility] [address] [place] [address] Lab Director: Kelechi Dueñas MD Protein [Mass/Vol] 6.3 g/dL Low 6.6-8.7 [facility] Comment on above: Performed By: #### S ED, CDP, CRP, CP ####[facility] [address] [place] [address] lab Director: Kelechi Dueñas MD Sodium [Moles/Vol] 135 mmol/L Low 136-145 [facility] Comment on above: Performed By: #### S ED, CDP, CRP, CP ####[facility] [address]xlsw[address] [place] [address] Lab Director: Kelechi Dueñas MD Urea nitrogen [Mass/Vol] 51 mg/dL High 8-23 [facility] Comment on above: Performed By: #### S ED, CDP, CRP, CP ####[facility] [address] [place] [address] Lab Director: Kelechi Dueñas MD Comprehensive Metabolic Pane [facility] 05-23-2024 Albumin [Mass/Vol] 3.5 g/dL 3.5 - 5.2 g/dL [facility] Albumin/Globulin [Mass ratio] 1.0 {ratio} 1.0 - 2.5 [facility] ALP [Catalytic activity/Vol] 90 U/L 40 - 129 U/L [facility] ALT [Catalytic activity/Vol] 15 U/L 10 - 50 U/L [facility] Anion gap [Moles/Vol] 13 mmol/L 9 - 16 mmol/L [facility] AST [Catalytic activity/Vol] 22 U/L 10 - 50 U/L [facility] Bilirubin [Mass/Vol] 0.5 mg/dL 0.00 - 1.20 mg/dL [facility] Calcium [Mass/Vol] 8.9 mg/dL 8.6 - 10. 4 mg/dL [facility] Chloride [Moles/Vol] 105 mmol/L 98 - 10 7 mmol/L [facility] CO2 [Moles/Vol] 17 mmol/L Low 20 - 31 mmol/L [facility] Creatinine [Mass/Vol] 2.5 mg/dL High 0.70 - 1.20 mg/dL [facility] Est, Glom Filt Rate 26 Low - [facility] Glucose [Mass/Vol] 127 mg/dL High 74 - 99 mg/dL [facility] Interpretation and review of laboratory results Abnormal [facility] Potassium [Moles/Vol] 3.9 mmol/L 3.7 - 5.3 mmol/L [facility] Protein [Mass/Vol] 6.3 g/dL Low 6.6 - 8.7 g/dL [facility] Sodium [Moles/Vol] 135 mmol/L Low 136 - 145 mmol/L [facility] Urea nitrogen [Mass/Vol] 51 mg/dL High 8 - 23 mg/dL [facility] Creatine Kinaseon 05-23-2024 CK [Catalytic activity/Vol] 31 U/L Low 39-308 [facility] Comment on above: Performed By: #### C K ####[facility] [address] [place] [address] Lab Director: Kelechi Dueñas MD#### AALDO ####[facility] [address] [place] [address] [id number] Lab Director: Yanick Wilcox MD CK [Catalytic activity/Vol] 31 U/L Low 39-308 [facility] Comment on above: Performed By: #### C K, WALESKA ####[facility] [address] [place] [address] Lab Director: Kelechi Dueñas MD Myoglobinon 05-23-2024 Myoglobin [Mass/Vol] 65 ng/mL Normal 28-72 [facility] Comment on above: Performed By: #### C K, WALESKA ####[address] [address] Lab Director: Kelechi Dueñas MD Myoglobin, Bloodon 4 Myoglobin [Mass/Vol] 65 ng/mL 28 - 72 ng/mL [facility] No Panel Informationon 05-23 [facility] Sedimentation Rateon 024 ESR Photometric method (Bld) [Velocity] 49 High [facility] Interpretation and review of laboratory results Abnormal [facility] Sedimentation Rate 49 mm/Hr High 0-20 [facility] Comment on above: Performed By: #### S ED, CDP, CRP, CP ####[place] [address] Lab Director: Kelechi Dueñas MD Urinalysis w/ Microon 2023 Bacteria None Normal NONE [facility] Comment on above: Performed By: #### U AMIC ####[address] [address] Lab Director: Kelechi Dueñas MD Bilirubin, SemiQt,Ur Negative Normal NEG [facility] Comment on above: Performed By: #### U AMIC ####[address] [address] Lab Director: Kelechi Dueñas MD Blood, Urine Negative Normal NEG [facility] Comment on above: Performed By: #### U AMIC ####[address] [address] Lab Director: Kelechi Dueñas MD Casts 2 TO 5 HYALINE Normal 0-8 [facility] Comment on above: Result Comment: Refe rence range defined for non-centrifuged specimen. Performed By: #### U AMIC ####[address] [address] Lab Director: Kelechi Dueñas MD Clarity (U) Clear Normal CLEAR [facility] Comment on above: Performed By: #### U AMIC ####[address] [address] Lab Director: Kelechi Dueñas MD Color (U) Yellow Normal YEL [facility] Comment on above: Performed By: #### U AMIC ####[address] [address] Lab Director: Kelechi Dueñas MD Epithelial cells LM Ql (Urine sed) 0 TO 2 Normal 0-5 [facility] Comment on above: Performed By: #### U AMIC ####[address] [address] Lab Director: Kelechi Dueñas MD Glucose Ql (U) Negative Normal NEG [facility] Comment on above: Performed By: #### U AMIC ####[address] [address] lab Director: Kelechi Dueñas MD Ketones Ql (U) TRACE Abnormal NEG [facility] Comment on above: Performed By: #### U AMIC ####[address] [address] Lab Director: Kelechi Dueñas MD Leukocyte esterase Test strip Ql (U) Negative Normal NEG [facility] Comment on above: Performed By: #### U AMIC ####[address] [address] Lab Director: Kelechi Dueñas MD Nitrite,Ur Negative Normal NEG [facility] Comment on above: Performed By: #### U AMIC ####[address] [address] Lab Director: Kelechi Dueñas MD PH,Ur 5.0 Normal 5.0-8.0 [facility] Comment on above: Performed By: #### U AMIC ####[facility] [address] [place], [place] [address])[phone] Director: Kelechi Dueñas MD Protein Ql (U) 2+ mg/dL Abnormal NEG [facility] Comment on above: Performed By: #### U AMIC ####[facility] [address] [place] [address])[phone] Director: Kelechi Dueñas MD Spec. [place],Ur 1.014 Normal 1.005-1.03 0 [facility] Comment on above: Performed By: #### U AMIC ####[address] [address])[phone] Director: Kelechi Dueñas MD Urine RBC's 2 TO 5 Normal 0-4 [facility] Comment on above: Result Comment: Refe rence range defined for non-centrifuged specimen. Performed By: #### U AMIC ####[address] [address])[phone] Director: Kelechi Dueñas MD Urine WBC's 0 TO 2 Normal 0-5 [facility] Comment on above: Performed By: #### U AMIC ####[facility] [place] [address])[phone] Director: Kelechi Dueñas MD Urobilinogen,Ur Normal Normal 0.0-1.0 [facility] Comment on above: Performed By: #### U AMIC ####[facility] [address] [place] [address])[phone] Director: Kelechi Dueñas MD Urinalysis with Microscopico n 05-23-2024 Bacteria LM Ql (Urine sed) None None [facility] Bilirubin Ql (U) Negative NEGATIVE [facility] Casts LM.LPF (Urine sed) [#/Area] 2 TO 5 HYALINE Reference range defined for non-centrifuged specimen. [facility] Clarity (U) Clear Clear [facility] Color (U) Yellow Yellow [facility] Epithelial cells LM.HPF (Urine sed) [#/Area] 0 TO 2 [facility] Glucose Test strip (U) [Mass/Vol] Negative NEGATIVE mg/dL [facility] Hemoglobin Auto test strip Ql (U) Negative NEGATIVE [facility] Interpretation and review of laboratory results Abnormal [facility] Ketones (U) [Mass/Vol] TRACE Abnormal NEGAT LES mg/dL [facility] Leukocyte esterase Test strip Ql (U) Negative NEGATIVE [facility] Nitrite Ql (U) Negative NEGATIVE [facility] pH (U) 5.0 [pH] 5.0 - 8.0 [facility] Protein (U) [Mass/Vol] 2+ Abnormal NEGAT LES mg/dL [facility] RBC LM.HPF (Urine sed) [#/Area] 2 TO 5 [facility] Specific gravity (U) [Rel density] 1.014 1.005 - 1.030 [facility] Urobilinogen Qn (U) Normal 0.0 - 1. 0 EU/dL [facility] WBC LM.HPF (Urine sed) [#/Area] 0 TO 2 [facility] Alanine aminotransferase [En zymatic activity/volume] in Serum or PlasmaOrdered By: Lolita Adorno on 03-22-2024 ALT [Catalytic activity/Vol] 19 U/L Normal 7-52 [facility] Comment on above: Order Comment: Reaso n for Exam Chronic kidney disease, stage III (moderate);Diabetes mellit Performed By: #### P ROCRERAT #### [address] Albumin [Mass/volume] in Ser um or Plasma by Bromocresol green (BCG) dye binding methoOrdered By: Lolita Adorno on 03-22-2024 Albumin BCG dye [Mass/Vol] 4.3 g/dL 3.5-5.7 [facility] Alkaline phosphatase [Enzyma tic activity/volume] in Serum or PlasmaOrdered By: Lolita Adorno on 03-22-2024 ALP [Catalytic activity/Vol] 102 U/L Normal 34-104 [facility] Comment on above: Order Comment: Reaso n for Exam Chronic kidney disease, stage III (moderate);Diabetes mellit Performed By: #### P ROCRERAT #### [address] Aspartate aminotransferase [ Enzymatic activity/volume] in Serum or PlasmaOrdered By: Lolita Adorno on 03-22-2024 AST [Catalytic activity/Vol] 19 U/L Normal 13-39 [facility] Comment on above: Order Comment: Reaso n for Exam Chronic kidney disease, stage III (moderate);Diabetes mellit Performed By: #### P ROCRERAT #### [address] Automated basophil %Ordered By: Lolita Adorno on 03-22-2024 Basophils/100 WBC (Bld) 0.5 % Normal . [facility] Comment on above: Performed By: #### P ROCRERAT #### [address] Automated basophil countOrde red By: Lolita Adorno on 03-22-2024 Basophils (Bld) [#/Vol] 0.0 10*3/uL Normal 0.0-0.2 [facility] Comment on above: Result Comment: PERF ORMED BY: [place] [address] PATHOLOGIST INFECTION CONTROL SPECIALIST LAZARUS MILLER M.D. Performed By: #### P ROCRERAT #### [address] Automated blood monocyte cou ntOrdered By: Lolita Adorno on 03-22-2024 Monocytes (Bld) [#/Vol] 0.8 10*3/uL Normal 0.0-0.8 [facility] Comment on above: Performed By: #### P ROCRERAT #### [address] [address] [place] Automated eosinophil %Ordere d By: Lolita Vaughnerer on 03-22-2024 Eosinophils/100 WBC (Bld) 4.4 % Normal . [facility] Comment on above: Performed By: #### P ROCRERAT #### [facility] [address] [place] [address] Automated eosinophil countOr dered By: Lolita Vaughnidar on 03-22-2024 Eosinophils (Bld) [#/Vol] 0.3 10*3/uL Normal 0.0-0.45 [facility] Comment on above: Performed By: #### P ROCRERAT #### [facility] [address] [place] [address] Automated monocyte %Ordered By: Lolita Vaughnerer on 03-22-2024 Monocytes/100 WBC (Bld) 10.6 % Normal . [facility] Comment on above: Performed By: #### P ROCRERAT #### [facility] [address] [place] [address] Automated neutrophil %Ordere d By: Lolita Vaughnerer on 03-22-2024 Neutrophils/100 WBC (Bld) 56.4 % Normal . [facility] Comment on above: Performed By: #### P ROCRERAT #### [facility] [address] [place] [address] Bilirubin.total [Mass/volume ] in Serum or PlasmaOrdered By: Lolita Adorno on 03-22-2024 Bilirubin [Mass/Vol] 0.6 mg/dL Normal 0.3-1.0 [facility] Comment on above: Order Comment: Reaso n for Exam Chronic kidney disease, stage III (moderate);Diabetes mellit Performed By: #### P ROCRERAT #### [facility] [address] [place] [address] Calcium [Mass/volume] in Ser um or PlasmaOrdered By: Lolita Mendeserer on 03-22-2024 Calcium [Mass/Vol] 9.2 mg/dL Normal 8.6-10.3 [facility] Comment on above: Order Comment: Reaso n for Exam Chronic kidney disease, stage III (moderate);Diabetes mellit Performed By: #### P ROCRERAT #### [facility] [address] [place] [address] [place] Carbon dioxide, total [Moles /volume] in Serum or PlasmaOrdered By: Lolita Adorno on 03-22-2024 CO2 [Moles/Vol] 25.9 mmol/L Normal 21.0-31.0 [facility] Comment on above: Order Comment: Reaso n for Exam Chronic kidney disease, stage III (moderate);Diabetes mellit Performed By: #### P ROCRERAT #### [facility] [address] [place] [address] [place] Chloride [Moles/volume] in S antolin or PlasmaOrdered By: Lolita Adorno on 03-22-2024 Chloride [Moles/Vol] 109 mmol/L High 98-107 [facility] Comment on above: Order Comment: Reaso n for Exam Chronic kidney disease, stage III (moderate);Diabetes mellit Performed By: #### P ROCRERAT #### [facility] [address] [place] [address] [place] Cholesterol [Mass/volume] in Serum or PlasmaOrdered By: Lolita Adorno on 03-22-2024 Cholesterol [Mass/Vol] 132 mg/dL Low 140-200 [facility] Comment on above: Chol less than 200 m g/dl low riskChol 201-239 mg/dl borderline riskChol 240 mg/dl and greater high risk Order Comment: Reaso n for Exam Chronic kidney disease, stage III (moderate);Diabetes mellit Reason for Exam Chronic kidney disease, stage 3 unspecified;Anemia of renal Result Comment: Chol less than 200 mg/dl low risk Chol 201-239 mg/dl borderline risk Chol 240 mg/dl and greater high risk Performed By: #### P HOS, MG, [id number], URIC #### [facility] [address] [place] [id number] [place] Cholesterol in LDL Calc [Mas s/Vol]Ordered By: Lolita Adorno on 03-22-2024 Cholesterol in LDL [Mass/Vol] 52 mg/dL 0-100 [facility] Comment on above: LDL ATP III CLASSIFI CATIONLDL less than 100 mg/dL OptimalLDL 100-129 mg/dL Near or above optimalLDL 130-159 mg/dL Borderline highLDL 160-189 mg/dL HighLDL greater than 189 mg/dL Very high Cholesterol in VLDL Calc [Ma ss/Vol]Ordered By: Lolita Adorno on 03-22-2024 Cholesterol in VLDL [Mass/Vol] 47 mg/dL [facility] Complete Blood Count Auto Di ffon 03-22-2024 Mean Corpuscular HGB Conc 33.1 g/dL Normal 32.5-35.6 [facility] Comment on above: Performed By: #### P ROCRERAT #### [facility] [address] [place] [address] NRBC% 0.2 /100{WBC} Normal 0-0.5 [facility] Comment on above: Performed By: #### P ROCRERAT #### [facility] [address] [place] [address] Comprehensive Metabolic Pane jered 03-22-2024 Albumin [Mass/Vol] 4.3 g/dL Normal 3.5-5.7 [facility] Comment on above: Order Comment: Reaso n for Exam Chronic kidney disease, stage III (moderate);Diabetes mellit Performed By: #### P ROCRERAT #### [facility] [address] [place] [address] [place] GFR/1.73 sq M.predicted MDRD (S/P/Bld) [Vol rate/Area] 30.032 mL/min/{1.73_m2} Normal [facility] Comment on above: Order Comment: Reaso n for Exam Chronic kidney disease, stage III (moderate);Diabetes mellit Performed By: #### P ROCRERAT #### [facility] [address] [place] [address] Creatinine [Mass/volume] in Serum or PlasmaOrdered By: Lolita Adorno on 03-22-2024 Creatinine [Mass/Vol] 2.25 mg/dL High 0.70-1.30 [facility] Comment on above: Order Comment: Reaso n for Exam Chronic kidney disease, stage III (moderate);Diabetes mellit Performed By: #### P IKERRET #### [facility] [address] Erythrocyte distribution wid th [Ratio] by Automated countOrdered By: Lolita Adorno on 03-22-2024 Erythrocyte distribution width (RBC) [Ratio] 13.9 % Normal 12.0-14.8 [facility] Comment on above: Performed By: #### P ROCRERAT #### [address] Erythrocytes [#/volume] in B lood by Automated countOrdered By: Lolita Adorno on 03-22-2024 RBC (Bld) [#/Vol] 4.67 10*6/uL Normal 3.90-5.60 [facility] Comment on above: Performed By: #### P IKERRET #### [address] Glucose [Mass/volume] in Ser um or PlasmaOrdered By: Lolita Adorno on 03-22-2024 Glucose [Mass/Vol] 145 mg/dL High 70-100 [facility] Comment on above: ADA recommended refe rence rangeRandom Glucose Reference Range is dependent on time and content of last meal. Glucose of more than 200 mg/dL in a nonstressed, ambulatory subject supports the diagnosis of Diabetes Mellitus. Order Comment: Reaso n for Exam Chronic kidney disease, stage III (moderate);Diabetes mellit Result Comment: Grygla om Glucose Reference Range is dependent on time and content of last meal. Glucose of more than 200 mg/dL in a nonstressed, ambulatory subject supports the diagnosis of Diabetes Mellitus. ADA recommended reference range Performed By: #### P ROCRERAT #### [address] HbA1c HPLC (Bld) [Mass fract ion]on 03-22-2024 HbA1c (Bld) [Mass fraction] 7.9 % [facility] Hematocrit [Volume Fraction] of Blood by Automated countOrdered By: Lolita Adorno on 03-22-2024 Hematocrit (Bld) [Volume fraction] 39.7 % Normal 38.8-50.0 [facility] Comment on above: Performed By: #### P ROCRETANNER #### [address] Hemoglobin [Mass/volume] in BloodOrdered By: Lolita Adorno on 03-22-2024 Hemoglobin (Bld) [Mass/Vol] 13.1 g/dL Normal 13.0-17.0 [facility] Comment on above: Performed By: #### P ROCRERAT #### [address] Leukocytes [#/volume] correc ruben for nucleated erythrocytes in Blood by Automated counOrdered By: Lolita Adorno on 03-22-2024 WBC corrected for nucl RBC Auto (Bld) [#/Vol] 7.6 10*3/uL 4.1-10.5 [facility] Leukocytes [#/volume] in Blo od by Automated countOrdered By: Lolita Adorno on 03-22-2024 WBC (Bld) [#/Vol] 7.6 10*3/uL Normal 4.1-10.5 [facility] Comment on above: Performed By: #### P ROCRET #### [address] Lipid Panelon 03-22-2024 LDL Cholesterol,Calculated 52 mg/dL Normal 0-100 [facility] Comment on above: Order Comment: Reaso n for Exam Chronic kidney disease, stage III (moderate);Diabetes mellit Reason for Exam Chronic kidney disease, stage 3 unspecified;Anemia of renal Result Comment: LDL ATP III CLASSIFICATION LDL less than 100 mg/dL Optimal LDL 100-129 mg/dL Near or above optimal LDL 130-159 mg/dL Borderline high LDL 160-189 mg/dL High LDL greater than 189 mg/dL Very high Performed By: #### P HOS, MG, [id number], URIC #### [address] Triglyceride w/Reflex 238 mg/dL High 0-149 [facility] Comment on above: Order Comment: Reaso n for Exam Chronic kidney disease, stage III (moderate);Diabetes mellit Reason for Exam Chronic kidney disease, stage 3 unspecified;Anemia of renal Result Comment: TRIG ATP III CLASSIFICATION TRIG less than 150 mg/dL Normal TRIG 150-199 mg/dL Borderline high TRIG 200-500 mg/dL High TRIG greater than 500 mg/dL Very high Standard traceable to the Center for Disease Conrtrol and Prevention (CDC) test method. Performed By: #### P HOS, MG, [id number], URIC #### [address] VLDL CHOLESTEROL 47 mg/dL Normal [facility] Comment on above: Order Comment: Reaso n for Exam Chronic kidney disease, stage III (moderate);Diabetes mellit Reason for Exam Chronic kidney disease, stage 3 unspecified;Anemia of renal Performed By: #### P HOS, MG, [id number], URIC #### [place] [address] [place] Lymphocytes [#/volume] in Bl ood by Automated countOrdered By: Lolita Adorno on 03-22-2024 Lymphocytes (Bld) [#/Vol] 2.1 10*3/uL Normal 1.00-4.8 [facility] Comment on above: Performed By: #### P ROCRERAT #### [place] [address] [place] Lymphocytes/100 leukocytes i n Blood by Automated countOrdered By: Lolita Adorno on 03-22-2024 Lymphocytes/100 WBC (Bld) 28.1 % Normal . [facility] Comment on above: Performed By: #### P ROCRERAT #### [place] [address] [place] MCH [Entitic mass] by Automa ruben countOrdered By: Lolita Adorno on 03-22-2024 MCH (RBC) [Entitic mass] 28.1 pg Normal 27.5-35.2 [facility] Comment on above: Performed By: #### P ROCRERAT #### [place] [address] [place] MCHC Auto (RBC) [Mass/Vol]Or dered By: Lolita Adorno on 03-22-2024 MCHC (RBC) [Mass/Vol] 33.1 g/dL 32.5-35.6 [facility] MCV [Entitic volume] by Auto mated countOrdered By: Lolita Adorno on 03-22-2024 MCV (RBC) [Entitic vol] 85.0 fL Normal 83.5-101 [facility] Comment on above: Performed By: #### P ROCRERAT #### [facility] [address] [place] [address] Neutrophils [#/volume] in Bl ood by Automated countOrdered By: Lolita Adorno on 03-22-2024 Neutrophils (Bld) [#/Vol] 4.3 10*3/uL Normal 1.8-7.7 [facility] Comment on above: Performed By: #### P ROCRERAT #### [facility] [address] [place] [address] No Panel InformationOrdered By: Lolita Adorno on 03-22-2024 Estimated GFR (CKD-EPI) 30.032 mL/Min [facility] Creatinine Clearance (Chem N/A [facility] Nucleated erythrocytes [Pres ence] in Blood by Automated countOrdered By: Lolita Adorno on 03-22-2024 Nucleated RBC Auto Ql (Bld) 0.2 /100{WBC} 0-0.5 [facility] Platelet mean volume [Entiti c volume] in Blood by Automated countOrdered By: Lolita Adorno on 03-22-2024 Platelet mean volume (Bld) [Entitic vol] 9.0 fL Normal 6.6-10.1 [facility] Comment on above: Performed By: #### P ROCRERAT #### [facility] [address] [place] [address] Platelets [#/volume] in Bloo d by Automated countOrdered By: Lolita Adorno on 03-22-2024 Platelets (Bld) [#/Vol] 182 10*3/uL Normal 150-450 [facility] Comment on above: Performed By: #### P ROCRERAT #### [facility] [address] [place] [address] Potassium [Moles/volume] in Serum or PlasmaOrdered By: Lolita Adorno on 03-22-2024 Potassium [Moles/Vol] 4.8 mmol/L Normal 3.5-5.1 [facility] Comment on above: Order Comment: Reaso n for Exam Chronic kidney disease, stage III (moderate);Diabetes mellit Performed By: #### P ROCRERAT #### [facility] [address] [place] [address] Protein [Mass/volume] in Ser um or PlasmaOrdered By: Lolita Adorno on 03-22-2024 Protein [Mass/Vol] 6.7 g/dL Normal 6.4-8.9 [facility] Comment on above: Order Comment: Reaso n for Exam Chronic kidney disease, stage III (moderate);Diabetes mellit Performed By: #### P ROCRERAT #### [facility] [address] [place] [address] Serum globulin measurement b y calculation (mass/volume)Ordered By: Lolita Adorno on 03-22-2024 Globulin (S) [Mass/Vol] 2.4 g/dL Normal [facility] Comment on above: Order Comment: Reaso n for Exam Chronic kidney disease, stage III (moderate);Diabetes mellit Performed By: #### P ROCRERAT #### [facility] [address] [place] [address] Serum or plasma albumin/glob ulin mass ratioOrdered By: Lolita Adorno on 03-22-2024 Albumin/Globulin [Mass ratio] 1.8 {ratio} Normal [facility] Comment on above: Order Comment: Reaso n for Exam Chronic kidney disease, stage III (moderate);Diabetes mellit Performed By: #### P ROCRERAT #### [facility] [address] [place] [address] Serum or plasma anion gap de terminationOrdered By: Lolita Adorno on 03-22-2024 Anion gap [Moles/Vol] 10.9 mmol/L Normal 6.0-15.0 [facility] Comment on above: Order Comment: Reaso n for Exam Chronic kidney disease, stage III (moderate);Diabetes mellit Performed By: #### P ROCRERAT #### [facility] [address] Serum or plasma high density lipoprotein (HDL) cholesterol measurementOrdered By: Lolita Adorno on 03-22-2024 Cholesterol in HDL [Mass/Vol] 32 mg/dL Normal 23-92 [facility] Comment on above: HDL CHOL ATP-III CLA SSIFICATION Cardiovascular RiskHDL > or equal to 60 mg/dL LOWHDL < 40 mg/dL HIGH Order Comment: Reaso n for Exam Chronic kidney disease, stage III (moderate);Diabetes mellit Reason for Exam Chronic kidney disease, stage 3 unspecified;Anemia of renal Result Comment: HDL CHOL ATP-III CLASSIFICATION Cardiovascular Risk HDL > or equal to 60 mg/dL LOW HDL < 40 mg/dL HIGH Performed By: #### P HOS, MG, [id number], URIC #### [facility] [address] Serum or plasma total choles terol/high density lipoprotein (HDL) cholesterol mass ratOrdered By: Lolita Adorno on 03-22-2024 Cholesterol.total/Flavia sterol in HDL [Mass ratio] 4.1 {ratio} Normal <5.0 [facility] Comment on above: Order Comment: Reaso n for Exam Chronic kidney disease, stage III (moderate);Diabetes mellit Reason for Exam Chronic kidney disease, stage 3 unspecified;Anemia of renal Result Comment: PERF ORMED BY: [place] [address] PATHOLOGIST [employer]CTION [employer]OL SPECIALIST LAZARUS MILLER M.D. Performed By: #### P HOS, MG, [id number], URIC #### [facility] [address] Sodium [Moles/volume] in Ser um or PlasmaOrdered By: Lolita Adorno on 06-17-2024 Sodium [Moles/Vol] 141 mmol/L Normal 136-145 [facility] Comment on above: Order Comment: Reaso n for Exam Chronic kidney disease, stage III (moderate);Diabetes mellit Performed By: #### P ROCRERAT #### [facility] [address] Triglyceride [Mass/volume] i n Serum or PlasmaOrdered By: Lolita Adorno on 03-22-2024 Triglyceride [Mass/Vol] 238 mg/dL High 0-149 [facility] Comment on above: TRIG ATP III CLASSIF ICATIONTRIG less than 150 mg/dL NormalTRIG 150-199 mg/dL Borderline highTRIG 200-500 mg/dL High TRIG greater than 500 mg/dL Very highStandard traceable to the Center for Disease Conrtrol and Prevention (CDC) test method. Urea nitrogen [Mass/volume] in Serum or PlasmaOrdered By: Lolita Adorno on 03-22-2024 Urea nitrogen [Mass/Vol] 38 mg/dL High - [facility] Comment on above: Order Comment: Reaso n for Exam Chronic kidney disease, stage III (moderate);Diabetes mellit Performed By: #### P ROCRERAT #### [facility] [address] HbA1c HPLC (Bld) [Mass fract ion]on 12-25-2023 HbA1c (Bld) [Mass fraction] 10.4 % [facility] Alanine aminotransferase [En zymatic activity/volume] in Serum or PlasmaOrdered By: Gabriela Florian on 10-17-2023 ALT [Catalytic activity/Vol] 14 U/L [facility] Aspartate aminotransferase [ Enzymatic activity/volume] in Serum or PlasmaOrdered By: Gabriela Florian on 10-17-2023 AST [Catalytic activity/Vol] 15 U/L [facility] Cholesterol [Mass/volume] in Serum or PlasmaOrdered By: Gabriela Florian on 10-17-2023 Cholesterol [Mass/Vol] 119 mg/dL 140-200 [facility] Comment on above: Chol less than 200 m g/dl low riskChol 201-239 mg/dl borderline riskChol 240 mg/dl and greater high risk Cholesterol in LDL Calc [Mas s/Vol]Ordered By: Gabriela Florian on 10-17-2023 Cholesterol in LDL [Mass/Vol] 16 mg/dL 0-100 [facility] Comment on above: LDL ATP III CLASSIFI CATIONLDL less than 100 mg/dL OptimalLDL 100-129 mg/dL Near or above optimalLDL 130-159 mg/dL Borderline highLDL 160-189 mg/dL HighLDL greater than 189 mg/dL Very high Cholesterol in VLDL Calc [Ma ss/Vol]Ordered By: Gabriela Florian on 10-17-2023 Cholesterol in VLDL [Mass/Vol] 76 mg/dL [facility] Serum or plasma high density lipoprotein (HDL) cholesterol measurementOrdered By: Gabriela Florian on 10-17-2023 Cholesterol in HDL [Mass/Vol] 27 mg/dL 23-92 [facility] Comment on above: HDL CHOL ATP-III CLA SSIFICATION Cardiovascular RiskHDL > or equal to 60 mg/dL LOWHDL < 40 mg/dL HIGH Serum or plasma total choles terol/high density lipoprotein (HDL) cholesterol mass ratOrdered By: Gabriela Florian on 10-17-2023 Cholesterol.total/Flavia sterol in HDL [Mass ratio] 4.4 {ratio} <5.0 [facility] Triglyceride [Mass/volume] i n Serum or PlasmaOrdered By: Gabriela Florian on 10-17-2023 Triglyceride [Mass/Vol] 382 mg/dL 0-149 [facility] Comment on above: TRIG ATP III CLASSIF ICATIONTRIG less than 150 mg/dL NormalTRIG 150-199 mg/dL Borderline highTRIG 200-500 mg/dL High TRIG greater than 500 mg/dL Very highStandard traceable to the Center for Disease Conrtrol and Prevention (CDC) test method. A1C HEMOGLOBINon 09-23-2023 HbA1c (Bld) [Mass fraction] 7.5 % [facility] Other Alanine aminotransferase [En zymatic activity/volume] in Serum or PlasmaOrdered By: Lolita Adorno on 09-23-2023 ALT [Catalytic activity/Vol] 20 U/L 7-52 [facility] Albumin [Mass/volume] in Ser um or Plasma by Bromocresol green (BCG) dye binding methoOrdered By: Lolita Adorno on 09-23-2023 Albumin BCG dye [Mass/Vol] 3.9 g/dL 3.5-5.7 [facility] Alkaline phosphatase [Enzyma tic activity/volume] in Serum or PlasmaOrdered By: Lolita Adorno on 09-23-2023 ALP [Catalytic activity/Vol] 117 U/L 34-104 [facility] Aspartate aminotransferase [ Enzymatic activity/volume] in Serum or PlasmaOrdered By: Lolita Adorno on 09-23-2023 AST [Catalytic activity/Vol] 15 U/L 13-39 [facility] Basophils Auto (Bld) [#/Vol] Ordered By: Lolita Adorno on 09-23-2023 Basophils (Bld) [#/Vol] 0.1 10*3/uL 0.0-0.2 [facility] Basophils/100 WBC Auto (Bld) Ordered By: Lolita Adorno on 09-23-2023 Basophils/100 WBC (Bld) 0.8 % . [facility] Bilirubin.total [Mass/volume ] in Serum or PlasmaOrdered By: Lolita Adorno on 09-23-2023 Bilirubin [Mass/Vol] 0.5 mg/dL 0.3-1.0 [facility] Calcium [Mass/volume] in Ser um or PlasmaOrdered By: Lolita Adorno on 09-23-2023 Calcium [Mass/Vol] 8.9 mg/dL 8.6-10.3 [facility] Carbon dioxide, total [Moles /volume] in Serum or PlasmaOrdered By: Lolita Adorno on 09-23-2023 CO2 [Moles/Vol] 28.9 mmol/L 21.0-31.0 [facility] Chloride [Moles/volume] in S antolin or PlasmaOrdered By: Lolita Adorno on 09-23-2023 Chloride [Moles/Vol] 107 mmol/L 98-107 [facility] Complete Blood Count Auto Di ffon 09-23-2023 Basophils (Bld) [#/Vol] [id number] 10*3/uL Normal 0.0-0.2 10*3/uL [facility] Other Basophils/100 WBC (Bld) 0.800 % . % [facility] [employer] Other Eosinophils (Bld) [#/Vol] 0.772162282 10*3/uL Normal 0.0-0.45 10*3/uL [facility] Other Eosinophils/100 WBC (Bld) 3.700 % . % [facility] Other Erythrocyte distribution width (RBC) [Ratio] 13.400 % Normal 12.0-14.8 % [facility] Other Hematocrit (Bld) [Volume fraction] 36.300 % Low 38.8-50.0 % [facility] Other Hemoglobin (Bld) [Mass/Vol] 12.535468 g/dL Low 13.0-17.0 g/dL [facility] Other Lymphocytes (Bld) [#/Vol] 1.444985892 10*3/uL Normal 1.00-4.8 10*3/uL [facility] Other Lymphocytes/100 WBC (Bld) 19.300 % . % [facility] Other MCH (RBC) [Entitic mass] 28.1000 pg Normal 27.5-35.2 pg [facility] Other MCV (RBC) [Entitic vol] 84.8000 fL Normal 83.5 -101 fL [facility] Other Monocytes (Bld) [#/Vol] 0.260645222 10*3/uL Normal 0.0-0.8 10*3/uL [facility] Other Monocytes/100 WBC (Bld) 9.500 % . % [facility] [employer] Other Neutrophils (Bld) [#/Vol] 5.467018382 10*3/uL Normal 1.8-7.7 10*3/uL [facility] Other Neutrophils/100 WBC (Bld) 66.700 % . % [facility] Other Platelet mean volume (Bld) [Entitic vol] 8.8000 fL Normal 6.6-10.1 fL [facility] Other WBC (Bld) [#/Vol] 8.794421048 10*3/uL Normal 4.1 -10.5 10*3/uL [facility] Other Complete Blood Count Auto Diff 8.2 10*3/uL Normal 4.1-10.5 10*3/uL [facility] Other Complete Blood Count Auto Diff 33.2 g/dL Normal 32.5-35.6 g/dL [facility] Other Complete Blood Count Auto Diff 0.1 /100{WBC} Normal 0-0.5 /100{WBC} [facility] Other Creatinine [Mass/volume] in Serum or PlasmaOrdered By: Lolita Adorno on 09-23-2023 Creatinine [Mass/Vol] 1.71 mg/dL 0.70-1.30 [facility] Eosinophils Auto (Bld) [#/Vo l]Ordered By: Lolita Adorno on 09-23-2023 Eosinophils (Bld) [#/Vol] 0.3 10*3/uL 0.0-0.45 [facility] Eosinophils/100 WBC Auto (Bl d)Ordered By: Loilta Adorno on 09-23-2023 Eosinophils/100 WBC (Bld) 3.7 % . [facility] Erythrocyte distribution wid th Auto (RBC) [Ratio]Ordered By: Lolita Adorno on 09-23-2023 Erythrocyte distribution width (RBC) [Ratio] 13.4 % 12.0-14.8 [facility] Erythrocytes [#/volume] in B lood by Automated countOrdered By: Lolita Adorno on 09-23-2023 RBC (Bld) [#/Vol] 4.28 10*6/uL 3.90-5.60 [facility] Globulin Calc (S) [Mass/Vol] Ordered By: Lolita Adorno on 09-23-2023 Globulin (S) [Mass/Vol] 2.3 g/dL [facility] Glucose [Mass/volume] in Ser um or PlasmaOrdered By: Lolita Adorno on 09-23-2023 Glucose [Mass/Vol] 212 mg/dL 70-100 [facility] Comment on above: ADA recommended refe rence rangeRandom Glucose Reference Range is dependent on time and content of last meal. Glucose of more than 200 mg/dL in a nonstressed, ambulatory subject supports the diagnosis of Diabetes Mellitus. HbA1c (Bld) [Mass fraction]o n 09-23-2023 A1C HEMOGLOBIN [email or web address] Other Hematocrit Auto (Bld) [Volum e fraction]Ordered By: Lolita Adorno on 09-23-2023 Hematocrit (Bld) [Volume fraction] 36.3 % 38.8-50.0 [facility] Hemoglobin [Mass/volume] in BloodOrdered By: Lolita Adorno on 09-23-2023 Hemoglobin (Bld) [Mass/Vol] 12.0 g/dL 13.0-17.0 [facility] Leukocytes [#/volume] correc ruben for nucleated erythrocytes in Blood by Automated counOrdered By: Lolita Adorno on 09-23-2023 WBC corrected for nucl RBC Auto (Bld) [#/Vol] 8.2 10*3/uL 4.1-10.5 [facility] Lymphocytes Auto (Bld) [#/Vo l]Ordered By: Lolita Adorno on 09-23-2023 Lymphocytes (Bld) [#/Vol] 1.6 10*3/uL 1.00-4.8 [facility] Lymphocytes/100 WBC Auto (Bl d)Ordered By: Lolita Adorno on 09-23-2023 Lymphocytes/100 WBC (Bld) 19.3 % . [facility] MCH Auto (RBC) [Entitic mass ]Ordered By: Lolita Adorno on 09-23-2023 MCH (RBC) [Entitic mass] 28.1 pg 27.5-35.2 [facility] MCHC Auto (RBC) [Mass/Vol]Or dered By: Lolita Adorno on 09-23-2023 MCHC (RBC) [Mass/Vol] 33.2 g/dL 32.5-35.6 [facility] MCV Auto (RBC) [Entitic vol] Ordered By: Lolita Adorno on 09-23-2023 MCV (RBC) [Entitic vol] 84.8 fL 83.5-101 [facility] Monocytes Auto (Bld) [#/Vol] Ordered By: Lolita Adorno on 09-23-2023 Monocytes (Bld) [#/Vol] 0.8 10*3/uL 0.0-0.8 [facility] Monocytes/100 WBC Auto (Bld) Ordered By: Lolita Adorno on 09-23-2023 Monocytes/100 WBC (Bld) 9.5 % . [facility] Neutrophils Auto (Bld) [#/Vo l]Ordered By: Lolita Adorno on 09-23-2023 Neutrophils (Bld) [#/Vol] 5.5 10*3/uL 1.8-7.7 [facility] Neutrophils/100 WBC Auto (Bl d)Ordered By: Lolita Adorno on 09-23-2023 Neutrophils/100 WBC (Bld) 66.7 % . [facility] No Panel InformationOrdered By: Lolita Adorno on 09-23-2023 Estimated GFR (CKD-EPI) 41.746 mL/Min [facility] Creatinine Clearance (Chem N/A [facility] Nucleated erythrocytes [Pres ence] in Blood by Automated countOrdered By: Lolita Adorno on 09-23-2023 Nucleated RBC Auto Ql (Bld) 0.1 /100{WBC} 0-0.5 [facility] Platelet mean volume Auto (B ld) [Entitic vol]Ordered By: Lolita Adorno on 09-23-2023 Platelet mean volume (Bld) [Entitic vol] 8.8 fL 6.6-10.1 [facility] Platelets [#/volume] in Bloo d by Automated countOrdered By: Lolita Adorno on 09-23-2023 Platelets (Bld) [#/Vol] 194 10*3/uL 150-450 [facility] Potassium [Moles/volume] in Serum or PlasmaOrdered By: Lolita Adorno on 09-23-2023 Potassium [Moles/Vol] 4.3 mmol/L 3.5-5.1 [facility] Protein [Mass/volume] in Ser um or PlasmaOrdered By: Lolita Adorno on 09-23-2023 Protein [Mass/Vol] 6.2 g/dL 6.4-8.9 [facility] Serum or plasma albumin/glob ulin mass ratioOrdered By: Lolita Adorno on 09-23-2023 Albumin/Globulin [Mass ratio] 1.7 {ratio} [facility] Serum or plasma anion gap de terminationOrdered By: Lolita Adorno on 09-23-2023 Anion gap [Moles/Vol] 9.4 mmol/L 6.0-15.0 [facility] Sodium [Moles/volume] in Ser um or PlasmaOrdered By: Lolita Adorno on 09-23-2023 Sodium [Moles/Vol] 141 mmol/L 136-145 [facility] Urea nitrogen [Mass/volume] in Serum or PlasmaOrdered By: Lolita Adorno on 09-23-2023 Urea nitrogen [Mass/Vol] 20 mg/dL 7-25 [facility] WBC Auto (Bld) [#/Vol]Ordere d By: Lolita Adorno on 09-23-2023 WBC (Bld) [#/Vol] 8.2 10*3/uL 4.1-10.5 [facility] Basophils Auto (Bld) [#/Vol] Ordered By: Barbie Osborn on 09-11-2023 Basophils (Bld) [#/Vol] 0.0 10*3/uL 0.0-0.2 [facility] Basophils/100 WBC Auto (Bld) Ordered By: Barbie Osborn on 09-11-2023 Basophils/100 WBC (Bld) 0.5 % . [facility] Calcium [Mass/volume] in Ser um or PlasmaOrdered By: Barbie Osborn on 09-11-2023 Calcium [Mass/Vol] 8.4 mg/dL 8.6-10.3 [facility] Carbon dioxide, total [Moles /volume] in Serum or PlasmaOrdered By: Barbie Osborn on 09-11-2023 CO2 [Moles/Vol] 24.0 mmol/L 21.0-31.0 [facility] Chloride [Moles/volume] in S antolin or PlasmaOrdered By: Barbie Osborn on 09-11-2023 Chloride [Moles/Vol] 109 mmol/L 98-107 [facility] Creatinine [Mass/volume] in Serum or PlasmaOrdered By: Barbie Osborn on 09-11-2023 Creatinine [Mass/Vol] 2.18 mg/dL 0.70-1.30 [facility] Eosinophils Auto (Bld) [#/Vo l]Ordered By: Barbie Osborn on 09-11-2023 Eosinophils (Bld) [#/Vol] 0.4 10*3/uL 0.0-0.45 [facility] Eosinophils/100 WBC Auto (Bl d)Ordered By: Barbie Osborn on 09-11-2023 Eosinophils/100 WBC (Bld) 4.4 % . [facility] Erythrocyte distribution wid th Auto (RBC) [Ratio]Ordered By: Barbie Osborn on 09-11-2023 Erythrocyte distribution width (RBC) [Ratio] 13.2 % 12.0-14.8 [facility] Glucose Glucometer (BldC) [M ass/Vol]Ordered By: Barbie Osborn on 09-11-2023 Glucose [Mass/Vol] 304 mg/dL [facility] Comment on above: Random Glucose Refer ence Range is dependent on time and content of last meal. Glucose of more than 200 mg/dL in a nonstressed, ambulatory subject supports the diagnosis of Diabetes Mellitus. Glucose [Mass/volume] in Ser um or PlasmaOrdered By: Barbie Osborn on 09-11-2023 Glucose [Mass/Vol] 136 mg/dL 70-100 [facility] Comment on above: ADA recommended refe rence rangeRandom Glucose Reference Range is dependent on time and content of last meal. Glucose of more than 200 mg/dL in a nonstressed, ambulatory subject supports the diagnosis of Diabetes Mellitus. Hematocrit Auto (Bld) [Volum e fraction]Ordered By: Barbie Osborn on 09-11-2023 Hematocrit (Bld) [Volume fraction] 30.6 % 38.8-50.0 [facility] Hemoglobin [Mass/volume] in BloodOrdered By: Barbie Osborn on 09-11-2023 Hemoglobin (Bld) [Mass/Vol] 10.5 g/dL 13.0-17.0 [facility] Leukocytes [#/volume] correc ruben for nucleated erythrocytes in Blood by Automated counOrdered By: Barbie Osborn on 09-11-2023 WBC corrected for nucl RBC Auto (Bld) [#/Vol] 8.0 10*3/uL 4.1-10.5 [facility] Lymphocytes Auto (Bld) [#/Vo l]Ordered By: Barbie Osborn on 09-11-2023 Lymphocytes (Bld) [#/Vol] 1.7 10*3/uL 1.00-4.8 [facility] Lymphocytes/100 WBC Auto (Bl d)Ordered By: Barbie Osborn on 09-11-2023 Lymphocytes/100 WBC (Bld) 21.8 % . [facility] MCH Auto (RBC) [Entitic mass ]Ordered By: Barbie Osborn on 09-11-2023 MCH (RBC) [Entitic mass] 28.9 pg 27.5-35.2 [facility] MCHC Auto (RBC) [Mass/Vol]Or dered By: Barbie Osborn on 09-11-2023 MCHC (RBC) [Mass/Vol] 34.3 g/dL 32.5-35.6 [facility] MCV Auto (RBC) [Entitic vol] Ordered By: Barbie Osborn on 09-11-2023 MCV (RBC) [Entitic vol] 84.1 fL 83.5-101 [facility] Monocytes Auto (Bld) [#/Vol] Ordered By: Barbie Osborn on 09-11-2023 Monocytes (Bld) [#/Vol] 1.0 10*3/uL 0.0-0.8 [facility] Monocytes/100 WBC Auto (Bld) Ordered By: Barbie Osborn on 09-11-2023 Monocytes/100 WBC (Bld) 12.6 % . [facility] Neutrophils Auto (Bld) [#/Vo l]Ordered By: Barbie Osborn on 09-11-2023 Neutrophils (Bld) [#/Vol] 4.8 10*3/uL 1.8-7.7 [facility] Neutrophils/100 WBC Auto (Bl d)Ordered By: Barbie Osborn on 09-11-2023 Neutrophils/100 WBC (Bld) 60.7 % . [facility] No Panel InformationOrdered By: Barbie Osborn on 09-11-2023 Estimated GFR (CKD-EPI) 31.193 mL/Min [facility] Creatinine Clearance (Chem 27.23 [facility] Nucleated erythrocytes [Pres ence] in Blood by Automated countOrdered By: Barbie Osborn on 09-11-2023 Nucleated RBC Auto Ql (Bld) 0.0 /100{WBC} 0-0.5 [facility] Platelet mean volume Auto (B ld) [Entitic vol]Ordered By: Barbie Osborn on 09-11-2023 Platelet mean volume (Bld) [Entitic vol] 9.0 fL 6.6-10.1 [facility] Platelets Auto (Bld) [#/Vol] Ordered By: Barbie Osborn on 09-11-2023 Platelets (Bld) [#/Vol] 158 10*3/uL 150-450 [facility] Potassium [Moles/volume] in Serum or PlasmaOrdered By: Barbie Osborn on 09-11-2023 Potassium [Moles/Vol] 4.2 mmol/L 3.5-5.1 [facility] RBC Auto (Bld) [#/Vol]Ordere d By: Barbie Osborn on 09-11-2023 RBC (Bld) [#/Vol] 3.64 10*6/uL 3.90-5.60 [facility] Serum or plasma anion gap de terminationOrdered By: Barbie Osborn on 09-11-2023 Anion gap [Moles/Vol] 10.2 mmol/L 6.0-15.0 [facility] Sodium [Moles/volume] in Ser um or PlasmaOrdered By: Barbie Osborn on 09-11-2023 Sodium [Moles/Vol] 139 mmol/L 136-145 [facility] Urea nitrogen [Mass/volume] in Serum or PlasmaOrdered By: Barbie Osborn on 09-11-2023 Urea nitrogen [Mass/Vol] 38 mg/dL 7-25 [facility] WBC Auto (Bld) [#/Vol]Ordere d By: Barbie Osborn on 09-11-2023 WBC (Bld) [#/Vol] 8.0 10*3/uL 4.1-10.5 [facility] Amylase [Enzymatic activity/ volume] in Serum or PlasmaOrdered By: Joao Coley on 09-10-2023 Amylase [Catalytic activity/Vol] 37 U/L 29-103 [facility] Lipase [Enzymatic activity/v olume] in Serum or PlasmaOrdered By: Joao Colye on 09-10-2023 Lipase [Catalytic activity/Vol] 25.0 U/L 11.0-82.0 [facility] No Panel InformationOrdered By: Barbie Osborn on 09-10-2023 Bedside Glucose Comment Glu2: cleaned meter [facility] Serum or plasma cancer antig en 19-9 measurement (units/volume)Ordered By: Joao Coley on 09-10-2023 Cancer Ag 19-9 Qn 23 [arb'U]/mL 0-35 [facility] Comment on above: [facility] El ectrochemiluminescence Immunoassay(ECLIA)Values obtained with different assay methods or kits cannotbe used interchangeably. Results cannot be interpreted asabsolute evidence of the presence or absence of malignantdisease.Performed at: [facility] [place] [id number] Director: Chidi Hernandes PhD, Phone: [phone] Albumin [Mass/volume] in Ser um or PlasmaOrdered By: Nette Holden on 09-09-2023 Albumin [Mass/Vol] 3.2 g/dL 2.9-4.4 [facility] Albumin/Protein.total in 24 hour Urine by ElectrophoresisOrdered By: Nette Holden on 09-09-2023 Albumin Elph (24H U) [Mass fraction] 64.4 % . [facility] Folate [Mass/volume] in Seru m or PlasmaOrdered By: Nette Holden on 09-09-2023 Folate [Mass/Vol] 27.0 ng/mL >5.9 [facility] Comment on above: Folate reference ran ge: >5.9 ng/mlThe WHO technical consultation on folate and vitamin [id number] has determined that folate concentrations lessthan 4 ng/ml are considered deficient. Gamma globulin/Protein.total in 24 hour Urine by ElectrophoresisOrdered By: Nette Holden on 09-09-2023 Gamma globulin Elph (24H U) [Mass fraction] 13.1 % . [facility] IgA [Mass/volume] in Serum o r PlasmaOrdered By: Nette Holden on 09-09-2023 IgA [Mass/Vol] 159 mg/dL 61-437 [facility] IgG [Mass/volume] in Serum o r PlasmaOrdered By: Nette Holden on 09-09-2023 IgG [Mass/Vol] 793 mg/dL 603-1613 [facility] IgM [Mass/volume] in Serum o r PlasmaOrdered By: Nette Holden on 09-09-2023 IgM [Mass/Vol] 47 mg/dL 15-143 [facility] Immunofixation for UrineOrde red By: Nette Holden on 09-09-2023 Interpretation Immunofixation (U) [Interp] See comment . [facility] Comment on above: No monoclonality det ected.Performed at: - [facility] [id number] Director: Chidi Hernandes PhD, Phone: [phone] Immunoglobulin light chains. kappa.free [Mass/volume] in SerumOrdered By: Nette Holden on 09-09-2023 Immunoglobulin light chains.kappa.free (S) [Mass/Vol] 52.6 mg/L 3.3-19.4 [facility] Immunoglobulin light chains. kappa.free/Immunoglobulin light chains.lambda.free [MassOrdered By: Nette Holden on 09-09-2023 Immunoglobulin light chains.kappa.free/Immun oglobulin light chains.lambda.free (S) [Mass ratio] 1.88 0.26-1.65 [facility] Comment on above: Performed at: [facility] [employer] [address] [id number] Director: Chidi Hernandes PhD, Phone: [phone] Immunoglobulin light chains. lambda.free [Mass/volume] in Serum or PlasmaOrdered By: Nette Holden on 09-09-2023 Immunoglobulin light chains.lambda.free [Mass/Vol] 28.0 mg/L 5.7-26.3 [facility] Iron [Mass/volume] in Serum or PlasmaOrdered By: Nette Holden on 09-09-2023 Iron [Mass/Vol] 53 ug/dL 50-212 [facility] Iron binding capacity [Mass/ volume] in Serum or PlasmaOrdered By: Nette Holden on 09-09-2023 Iron binding capacity [Mass/Vol] 260 ug/dL 255-450 [facility] Iron saturation [Mass Fracti on] in Serum or PlasmaOrdered By: Nette Holden on 09-09-2023 Iron saturation [Mass fraction] 20.4 % 20-50 [facility] No Panel InformationOrdered By: Nette Holden on 09-09-2023 Urine Random Prot Electrophor Note See comment . [facility] Comment on above: Protein electrophore sis scan will follow via computer,mail, or disease case manager delivery. Protein Electrophoresis M-Donaldo Not observed g/dL Not Observed [facility] Protein Electrophoresis Note See comment . [facility] Comment on above: Protein electrophore sis scan will follow via computer,mail, or disease case manager delivery. Serum Immunofixation See comment . [facility] Comment on above: No monoclonality det ected. Protein [Mass/volume] in Ser um or PlasmaOrdered By: Nette Burnettr on 09-09-2023 Protein [Mass/Vol] 5.6 g/dL 6.0-8.5 [facility] Protein [Mass/volume] in Uri neOrdered By: Nette Adina on 09-09-2023 Protein (U) [Mass/Vol] 76.1 mg/dL Not Estab. [facility] Protein.monoclonal/Protein.t otal in 24 hour Urine by ElectrophoresisOrdered By: Nette Burnettr on 09-09-2023 Protein.monoclonal Elph (24H U) [Mass fraction] Not observed % Not Observed [facility] Serum globulin measurement ( mass/volume)Ordered By: Nette Holden on 09-09-2023 Globulin (S) [Mass/Vol] 2.4 g/dL 2.2-3.9 [facility] Serum or plasma albumin/glob ulin mass ratioOrdered By: Nette Burnettr on 09-09-2023 Albumin/Globulin [Mass ratio] 1.3 {ratio} 0.7-1.7 [facility] Serum or plasma alpha 1 glob ulin measurement by electrophoresis (mass/volume)Ordered By: Nette Adina on 09-09-2023 Alpha 1 globulin Elph [Mass/Vol] 0.2 g/dL 0.0-0.4 [facility] Serum or plasma alpha 2 glob ulin measurement by electrophoresis (mass/volume)Ordered By: Nette Adina on 09-09-2023 Alpha 2 globulin Elph [Mass/Vol] 0.7 g/dL 0.4-1.0 [facility] Serum or plasma beta globuli n measurement by electrophoresis (mass/volume)Ordered By: Nette Adina on 09-09-2023 Beta globulin Elph [Mass/Vol] 0.7 g/dL 0.7-1.3 [facility] Serum or plasma gamma globul in measurement by electrophoresis (mass/volume)Ordered By: Nette Adina on 09-09-2023 Gamma globulin Elph [Mass/Vol] 0.8 g/dL 0.4-1.8 [facility] Transferrin [Mass/volume] in Serum or PlasmaOrdered By: Nette Adina on 09-09-2023 Transferrin [Mass/Vol] 186 mg/dL 203-362 [facility] Urine alpha 1 globulin/total protein by electrophoresisOrdered By: Nette Holden on 09-09-2023 Alpha 1 globulin Elph (U) [Mass fraction] 2.5 % . [facility] Urine alpha 2 globulin/total protein ratio by electrophoresisOrdered By: Nette Holden on 09-09-2023 Alpha 2 globulin Elph (U) [Mass fraction] 7.7 % . [facility] Urine beta globulin measurem ent by electrophoresis (mass/volume)Ordered By: Nette Holden on 09-09-2023 Beta globulin Elph (U) [Mass/Vol] 12.3 % . [facility] Vitamin B12 ser/plasOrdered By: Nette Holden on 09-09-2023 Cobalamin (Vitamin B12) [Mass/Vol] 1320 pg/mL 180-914 [facility] Alanine aminotransferase [En zymatic activity/volume] in Serum or PlasmaOrdered By: Wyatt Chaparro on 09-08-2023 ALT [Catalytic activity/Vol] 9 U/L 7-52 [facility] Albumin [Mass/volume] in Ser um or Plasma by Bromocresol green (BCG) dye binding methoOrdered By: Wyatt Chaparro on 09-08-2023 Albumin BCG dye [Mass/Vol] 4.1 g/dL 3.5-5.7 [facility] Alkaline phosphatase [Enzyma tic activity/volume] in Serum or PlasmaOrdered By: Wyatt Chaparro on 09-08-2023 ALP [Catalytic activity/Vol] 96 U/L 34-104 [facility] Aspartate aminotransferase [ Enzymatic activity/volume] in Serum or PlasmaOrdered By: Wyatt Chaparro on 09-08-2023 AST [Catalytic activity/Vol] 16 U/L 13-39 [facility] Bilirubin.total [Mass/volume ] in Serum or PlasmaOrdered By: Wyatt Chaparro on 09-08-2023 Bilirubin [Mass/Vol] 0.4 mg/dL 0.3-1.0 [facility] Globulin Calc (S) [Mass/Vol] Ordered By: Wyatt Chaparro on 09-08-2023 Globulin (S) [Mass/Vol] 2.7 g/dL [facility] INR in Platelet poor plasma by Coagulation assayOrdered By: Wyatt Chaparro on 09-08-2023 INR Coag (PPP) [Relative time] 1.0 {INR} [facility] Comment on above: INR Therapeutic [...] with mechanical heart valves: 3 - 4.5 Lactate dehydrogenase [Enzym atic activity/volume] in Serum or Plasma by Lactate to pyOrdered By: Barbie Osborn on 09-08-2023 LDH Lactate to pyruvate reaction [Catalytic activity/Vol] 222 U/L 140-271 [facility] Monocyte distribution width [Entitic volume] in Blood by AutomatedOrdered By: Wyatt Chaparro on 09-08-2023 Monocyte distribution width Auto (Bld) [Entitic vol] 19.22 % 0.00-20.00 [facility] Protein [Mass/volume] in Ser um or PlasmaOrdered By: Wyatt Chaparro on 09-08-2023 Protein [Mass/Vol] 6.8 g/dL 6.4-8.9 [facility] Prothrombin time (PT)Ordered By: Wyatt Chaparro on 09-08-2023 PT Coag (PPP) [Time] 11.5 s 9.0-12.9 [facility] Comment on above: A hematocrit value g reater than 55% may lead to inaccurate results in coagulation testing. Patients having hematocrit values >55% require a special collection tube for coagulation studies. Please contact the laboratory at [phone] for redraw instructions. Serum or plasma albumin/glob ulin mass ratioOrdered By: Wyatt Chaparro on 09-08-2023 Albumin/Globulin [Mass ratio] 1.5 {ratio} [facility] Troponin I.cardiac [Mass/vol ume] in Serum or Plasma by Detection limit <= 0.01 ng/Ordered By: Barbie Osborn on 09-08-2023 Troponin I.cardiac DL <= 0.01 ng/mL [Mass/Vol] 61.9 pg/mL 0.0-20.0 [facility] Comment on above: Critical Result : Ca lled to and read back by: SANDRA KOWALSKI at: 09/08/2023 17:42:57 by:JUSTINE A1C HEMOGLOBINon 06-02-2023 HbA1c (Bld) [Mass fraction] 5.9 % [facility] Other HbA1c (Bld) [Mass fraction]o n 06-02-[address] [facility] [employer] Other Prostate specific Ag [Mass/v olume] in Serum or PlasmaOrdered By: Lolita Adorno on 05-16-2023 Prostate specific Ag [Mass/Vol] 1.450 ng/mL 0.000-4.00 0 [facility] XR lumbar spine 6V w bending on 05-06-2023 XR lumbar spine 6V w bending [facility] Other XR lumbar spine 6V w bending [facility] Other XR lumbar spine 6V w bending [address] [place] [address] [employer] Other XR lumbar spine 6[place] [address] [facility] Other XR lumbar spine 6V w bending XRay Report [facility] Other XR lumbar spine 6V w bending Signed [facility] Other XR lumbar spine 6V w bending Patient: Gage Lugo MR#: [id number] [facility] Other XR lumbar spine 6V w bending [id number] [facility] Other XR lumbar spine 6V w bending : 1950 Acct:[id number] [facility] Other XR lumbar spine 6V w bending Age/Sex: 73 / M ADM Date: 05/06/23 [facility] Other XR lumbar spine 6V w bending Loc: XD Room: Type: REG CLI [facility] Other XR lumbar spine 6V w bending Attending Dr: Beth REED [facility] Other XR lumbar spine 6V w bending Copies to: DEREK Ohara [facility] Other XR lumbar spine 6V w bending Ordering Provider: DEREK Ohara [employer] Other XR lumbar spine 6V w bending Date of Service: 05/06/23 [facility] Other XR lumbar spine 6V w bending XR/XR lumbar spine 6V w bending: M43.16 [facility] Other XR lumbar spine 6V w bending 6 views of the Lumbar Spinewith bending [facility] Other XR lumbar spine 6V w bending HISTORY: LEFT back pain since Friday [facility] Other XR lumbar spine 6V w bending COMPARISON: 12/23/22 [facility] Other XR lumbar spine 6V w bending POSTSURGICAL CHANGES: Stable postsurgical changes. No hardware failure. [facility] Other XR lumbar spine 6V w bending BONY ALIGNMENT: No hypermobility. Minor degenerative listhesis. Mild straightening of lumbar [facility] Other XR lumbar spine 6V w bending lordosis. Mild scoliosis [employer] Other XR lumbar spine 6V w bending FRACTURE: None [facility] Other XR lumbar spine 6V w bending DEGENERATIVE CHANGES: Similar moderate degenerative changes. [facility] Other XR lumbar spine 6V w bending SOFT TISSUES: Unremarkable [facility] Other XR lumbar spine 6V w bending BONY MINERALIZATION:Adequate [facility] Other XR lumbar spine 6V w bending XR/XR lumbar spine 6V w bending [facility] Other XR lumbar spine 6V w bending IMPRESSION: No hypermobility. Stable postsurgical and degenerative change. [facility] Other XR lumbar spine 6V w bending Impression dictated by: Rob Chung M.D.05/06/2023 2:57 PM [facility] Other XR lumbar spine 6V w bending Dictation Location: [facility] [employer] Other XR lumbar spine 6V w bending Transcribed By: PWS 05/06/23 [facility] [employer] Other XR lumbar spine 6V w bending Dictated By: Rob Chung DO 05/06/23 [facility] [employer] Other XR lumbar spine 6V w bending Signed By: [facility] Other XR lumbar spine 6V w bending 05/06/23 [facility] [employer] Other Alanine aminotransferase [En zymatic activity/volume] in Serum or PlasmaOrdered By: Lolita Adorno on 04-30-2023 ALT [Catalytic activity/Vol] 18 U/L 7-52 [facility] Albumin [Mass/volume] in Ser um or Plasma by Bromocresol green (BCG) dye binding methoOrdered By: Lolita Adorno on 04-30-2023 Albumin BCG dye [Mass/Vol] 4.1 g/dL 3.5-5.7 [facility] Alkaline phosphatase [Enzyma tic activity/volume] in Serum or PlasmaOrdered By: Lolita Adorno on 04-30-2023 ALP [Catalytic activity/Vol] 87 U/L 34-104 [facility] Aspartate aminotransferase [ Enzymatic activity/volume] in Serum or PlasmaOrdered By: Lolita Adorno on 04-30-2023 AST [Catalytic activity/Vol] 18 U/L 13-39 [facility] Basophils Auto (Bld) [#/Vol] Ordered By: Lolita Adorno on 04-30-2023 Basophils (Bld) [#/Vol] 0.0 10*3/uL 0.0-0.2 [facility] Basophils/100 WBC Auto (Bld) Ordered By: Lolita Adorno on 04-30-2023 Basophils/100 WBC (Bld) 0.6 % . [facility] Bilirubin.total [Mass/volume ] in Serum or PlasmaOrdered By: Lolita Adorno on 04-30-2023 Bilirubin [Mass/Vol] 0.4 mg/dL 0.3-1.0 [facility] Calcium [Mass/volume] in Ser um or PlasmaOrdered By: Lolita Adorno on 04-30-2023 Calcium [Mass/Vol] 8.8 mg/dL 8.6-10.3 [facility] Carbon dioxide, total [Moles /volume] in Serum or PlasmaOrdered By: Lolita Adorno on 04-30-2023 CO2 [Moles/Vol] 25.4 mmol/L 21.0-31.0 [facility] Chloride [Moles/volume] in S antolin or PlasmaOrdered By: Lolita Adorno on 04-30-2023 Chloride [Moles/Vol] 110 mmol/L 98-107 [facility] Cholesterol [Mass/volume] in Serum or PlasmaOrdered By: Lolita Adorno on 04-30-2023 Cholesterol [Mass/Vol] 114 mg/dL 140-200 [facility] Comment on above: Chol less than 200 m g/dl low riskChol 201-239 mg/dl borderline riskChol 240 mg/dl and greater high risk Cholesterol in LDL Calc [Mas s/Vol]Ordered By: Lolita Adorno on 04-30-2023 Cholesterol in LDL [Mass/Vol] 42 mg/dL 0-100 [facility] Comment on above: LDL ATP III CLASSIFI CATIONLDL less than 100 mg/dL OptimalLDL 100-129 mg/dL Near or above optimalLDL 130-159 mg/dL Borderline highLDL 160-189 mg/dL HighLDL greater than 189 mg/dL Very high Cholesterol in VLDL Calc [Ma ss/Vol]Ordered By: Lolita Adorno on 04-30-2023 Cholesterol in VLDL [Mass/Vol] 40 mg/dL [facility] Creatinine [Mass/volume] in Serum or PlasmaOrdered By: Lolita Adorno on 04-30-2023 Creatinine [Mass/Vol] 1.75 mg/dL 0.70-1.30 [facility] Eosinophils Auto (Bld) [#/Vo l]Ordered By: Lolita Adorno on 04-30-2023 Eosinophils (Bld) [#/Vol] 0.3 10*3/uL 0.0-0.45 [facility] Eosinophils/100 WBC Auto (Bl d)Ordered By: Lolita Adorno on 04-30-2023 Eosinophils/100 WBC (Bld) 4.9 % . [facility] Erythrocyte distribution wid th Auto (RBC) [Ratio]Ordered By: Lolita Adorno on 04-30-2023 Erythrocyte distribution width (RBC) [Ratio] 14.0 % 12.0-14.8 [facility] Ferritin [Mass/volume] in Se rum or PlasmaOrdered By: Lolita Adorno on 04-30-2023 Ferritin [Mass/Vol] 44.2 ng/mL 23.9-336.2 [facility] Folate [Mass/volume] in Seru m or PlasmaOrdered By: Lolita Adorno on 04-30-2023 Folate [Mass/Vol] 28.0 ng/mL >5.9 [facility] Comment on above: Folate reference ran ge: >5.9 ng/mlThe WHO technical consultation on folate and vitamin [id number] has determined that folate concentrations lessthan 4 ng/ml are considered deficient. Globulin Calc (S) [Mass/Vol] Ordered By: Lolita Adorno on 04-30-2023 Globulin (S) [Mass/Vol] 2.2 g/dL [facility] Glucose [Mass/volume] in Ser um or PlasmaOrdered By: Lolita Adorno on 04-30-2023 Glucose [Mass/Vol] 103 mg/dL 70-100 [facility] Comment on above: ADA recommended refe rence rangeRandom Glucose Reference Range is dependent on time and content of last meal. Glucose of more than 200 mg/dL in a nonstressed, ambulatory subject supports the diagnosis of Diabetes Mellitus. Hematocrit Auto (Bld) [Volum e fraction]Ordered By: Lolita Adorno on 04-30-2023 Hematocrit (Bld) [Volume fraction] 36.3 % 38.8-50.0 [facility] Hemoglobin [Mass/volume] in BloodOrdered By: Lolita Adorno on 04-30-2023 Hemoglobin (Bld) [Mass/Vol] 12.1 g/dL 13.0-17.0 [facility] Iron [Mass/volume] in Serum or PlasmaOrdered By: Lolita Adorno on 04-30-2023 Iron [Mass/Vol] 58 ug/dL 50-212 [facility] Iron binding capacity [Mass/ volume] in Serum or PlasmaOrdered By: Lolita Adorno on 04-30-2023 Iron binding capacity [Mass/Vol] 293 ug/dL 255-450 [facility] Iron saturation [Mass Fracti on] in Serum or PlasmaOrdered By: Lolita Adorno on 04-30-2023 Iron saturation [Mass fraction] 19.8 % 20-50 [facility] Leukocytes [#/volume] correc ruben for nucleated erythrocytes in Blood by Automated counOrdered By: Lolita Adorno on 04-30-2023 WBC corrected for nucl RBC Auto (Bld) [#/Vol] 7.1 10*3/uL 4.1-10.5 [facility] Lymphocytes Auto (Bld) [#/Vo l]Ordered By: Lolita Adorno on 04-30-2023 Lymphocytes (Bld) [#/Vol] 1.7 10*3/uL 1.00-4.8 [facility] Lymphocytes/100 WBC Auto (Bl d)Ordered By: Lolita Adorno on 04-30-2023 Lymphocytes/100 WBC (Bld) 24.4 % . [facility] MCH Auto (RBC) [Entitic mass ]Ordered By: Lolita Adorno on 04-30-2023 MCH (RBC) [Entitic mass] 28.1 pg 27.5-35.2 [facility] MCHC Auto (RBC) [Mass/Vol]Or dered By: Lolita Adorno on 04-30-2023 MCHC (RBC) [Mass/Vol] 33.4 g/dL 32.5-35.6 [facility] MCV Auto (RBC) [Entitic vol] Ordered By: Lolita Adorno on 04-30-2023 MCV (RBC) [Entitic vol] 84.0 fL 83.5-101 [facility] Monocytes Auto (Bld) [#/Vol] Ordered By: Lolita Adorno on 04-30-2023 Monocytes (Bld) [#/Vol] 0.9 10*3/uL 0.0-0.8 [facility] Monocytes/100 WBC Auto (Bld) Ordered By: Lolita Adorno on 04-30-2023 Monocytes/100 WBC (Bld) 12.5 % . [facility] Neutrophils Auto (Bld) [#/Vo l]Ordered By: Lolita Adorno on 04-30-2023 Neutrophils (Bld) [#/Vol] 4.1 10*3/uL 1.8-7.7 [facility] Neutrophils/100 WBC Auto (Bl d)Ordered By: Lolita Adorno on 04-30-2023 Neutrophils/100 WBC (Bld) 57.6 % . [facility] No Panel InformationOrdered By: Lolita Adorno on 04-30-2023 Estimated GFR (CKD-EPI) 40.603 mL/Min [facility] Creatinine Clearance (Chem N/A [facility] Nucleated erythrocytes [Pres ence] in Blood by Automated countOrdered By: Lolita Adorno on 04-30-2023 Nucleated RBC Auto Ql (Bld) 0.1 /100{WBC} 0-0.5 [facility] Platelet mean volume Auto (B ld) [Entitic vol]Ordered By: Lolita Adorno on 04-30-2023 Platelet mean volume (Bld) [Entitic vol] 8.2 fL 6.6-10.1 [facility] Platelets Auto (Bld) [#/Vol] Ordered By: Lolita Adorno on 04-30-2023 Platelets (Bld) [#/Vol] 185 10*3/uL 150-450 [facility] Potassium [Moles/volume] in Serum or PlasmaOrdered By: Lolita Adorno on 04-30-2023 Potassium [Moles/Vol] 4.5 mmol/L 3.5-5.1 [facility] Protein [Mass/volume] in Ser um or PlasmaOrdered By: Lolita Adorno on 04-30-2023 Protein [Mass/Vol] 6.3 g/dL 6.4-8.9 [facility] RBC Auto (Bld) [#/Vol]Ordere d By: oLlita Adorno on 04-30-2023 RBC (Bld) [#/Vol] 4.32 10*6/uL 3.90-5.60 [facility] Serum or plasma albumin/glob ulin mass ratioOrdered By: Lolita Adorno on 04-30-2023 Albumin/Globulin [Mass ratio] 1.9 {ratio} [facility] Serum or plasma anion gap de terminationOrdered By: Lolita Adorno on 04-30-2023 Anion gap [Moles/Vol] 11.1 mmol/L 6.0-15.0 [facility] Serum or plasma high density lipoprotein (HDL) cholesterol measurementOrdered By: Lolita Adorno on 04-30-2023 Cholesterol in HDL [Mass/Vol] 32 mg/dL 23-92 [facility] Comment on above: HDL CHOL ATP-III CLA SSIFICATION Cardiovascular RiskHDL > or equal to 60 mg/dL LOWHDL < 40 mg/dL HIGH Serum or plasma total choles terol/high density lipoprotein (HDL) cholesterol mass ratOrdered By: Lolita Adorno on 04-30-2023 Cholesterol.total/Flavia sterol in HDL [Mass ratio] 3.6 {ratio} <5.0 [facility] Sodium [Moles/volume] in Ser um or PlasmaOrdered By: Lolita Adorno on 04-30-2023 Sodium [Moles/Vol] 142 mmol/L 136-145 [facility] Transferrin [Mass/volume] in Serum or PlasmaOrdered By: Lolita Adorno on 04-30-2023 Transferrin [Mass/Vol] 209 mg/dL 203-362 [facility] Triglyceride [Mass/volume] i n Serum or PlasmaOrdered By: Lolita Adorno on 04-30-2023 Triglyceride [Mass/Vol] 202 mg/dL 0-149 [facility] Comment on above: TRIG ATP III CLASSIF ICATIONTRIG less than 150 mg/dL NormalTRIG 150-199 mg/dL Borderline highTRIG 200-500 mg/dL High TRIG greater than 500 mg/dL Very highStandard traceable to the Center for Disease Conrtrol and Prevention (CDC) test method. Urea nitrogen [Mass/volume] in Serum or PlasmaOrdered By: Lolita Adorno on 04-30-2023 Urea nitrogen [Mass/Vol] 29 mg/dL 7-25 [facility] Vitamin B12 ser/plasOrdered By: Lolita Adorno on 04-30-2023 Cobalamin (Vitamin B12) [Mass/Vol] 1086 pg/mL 180-914 [facility] WBC Auto (Bld) [#/Vol]Ordere d By: Lolita Adorno on 04-30-2023 WBC (Bld) [#/Vol] 7.1 10*3/uL 4.1-10.5 [facility] Office Visit (Cardiology)on 04-22-2023 Follow-up visit Diagnoses/Problems Assessed 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of [place] coronary artery of [place] heart without angina pectoris (414.01) (I25.10) S/P PTCA (percutaneous transluminal coronary angioplasty) (V45.82) (Z98.61) 2017 RCA History of NM (myocardial infarction) (412) (I25.2) Essential hypertension (401.9) (I10) Hyperlipidemia (272.4) (E78.5) Diabetes mellitus (250.00) (E11.9) Stage 3a chronic kidney disease (585.3) (N18.31) Current some day smoker (305.1) (F17.200) 1 pack every 2 weeks Overweight with body mass index (BMI) of 26 to 26.9 in adult (278.02,V85.22) (E66.3,Z68.26) At risk for falls (V15.88) (Z91.81) Orders 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of [place] coronary artery of [place] heart without angina pectoris Changed: From Aspirin EC 81 MG TBEC TAKE 1 TABLET DAILY DIRECTED To Aspirin 81 MG Oral Tablet Delayed Release TAKE 1 TABLET DAILY Essential hypertension Renew: hydrALAZINE HCl - 50 MG Oral Tablet; TAKE 1 TABLET TWICE DAILY Overweight with body mass index (BMI) of 26 to 26.9 in adult Healthy Weight Tips; Status:Complete - Retrospective Authorization; Done: [id number] Some eating tips that can help you lose weight.; Status:Complete - Retrospective Authorization; Done: [id number] SocHx: Current some day smoker You need to stop smoking. Though it is not easy, more than half of all adult smokers have quit. We encourage you to write down all the reasons you should quit smoking and set a quit date for yourself. Ask us how we can help. You may also call 9-437-ZJRQHome Dialysis PlusNOW for free resources and assistance.; Status:Complete - Retrospective Authorization; Done: [id number] Tobacco Use Screening; Status:Complete; Done: [id number] Patient Instructions Please bring all medicines, vitamins, and herbal supplements with you when you come to the office. Prescriptions will not be filled unless you are compliant with your follow up appointments or have a follow up appointment scheduled as per instruction of your physician. Refills should be requested at the time of your visit. Follow up in 6 months [facility] Chief Complaint GAGE LUGO is being seen for a 6 [...] Oral TabletTAK (more content not included)... Normal [employer] Tobacco Screening.on 023 Fall risk assessment b) One or more fall s in the last year -[facility] [employer] 250 DO Work Phone: Tobacco use status CPHS a) Yes M -[facility] [employer] 250 DO Work Phone: Tobacco Screening. Yes -[facility] [employer] [facility] 250 DO Work Phone: Alanine aminotransferase [En zymatic activity/volume] in Serum or PlasmaOrdered By: Gabriela Florian on 04-15-2023 ALT [Catalytic activity/Vol] 19 U/L 7-52 [facility] Aspartate aminotransferase [ Enzymatic activity/volume] in Serum or PlasmaOrdered By: Gabriela Florian on 04-15-2023 AST [Catalytic activity/Vol] 19 U/L 13-39 [facility] Basophils Auto (Bld) [#/Vol] Ordered By: Gabriela Florian on 04-15-2023 Basophils (Bld) [#/Vol] 0.0 10*3/uL 0.0-0.2 [facility] Basophils/100 WBC Auto (Bld) Ordered By: Gabriela Florian on 04-15-2023 Basophils/100 WBC (Bld) 0.6 % . [facility] Calcium [Mass/volume] in Ser um or PlasmaOrdered By: Gabriela Florian on 04-15-2023 Calcium [Mass/Vol] 9.1 mg/dL 8.6-10.3 [facility] Carbon dioxide, total [Moles /volume] in Serum or PlasmaOrdered By: Gabriela Florian on 04-15-2023 CO2 [Moles/Vol] 26.2 mmol/L 21.0-31.0 [facility] Chloride [Moles/volume] in S antolin or PlasmaOrdered By: Gabriela Florian on 04-15-2023 Chloride [Moles/Vol] 109 mmol/L 98-107 [facility] Cholesterol [Mass/volume] in Serum or PlasmaOrdered By: Gabriela Florian on 04-15-2023 Cholesterol [Mass/Vol] 104 mg/dL 140-200 [facility] Comment on above: Chol less than 200 m g/dl low riskChol 201-239 mg/dl borderline riskChol 240 mg/dl and greater high risk Cholesterol in LDL Calc [Mas s/Vol]Ordered By: Gabriela Florian on 04-15-2023 Cholesterol in LDL [Mass/Vol] 43 mg/dL 0-100 [facility] Comment on above: LDL ATP III CLASSIFI CATIONLDL less than 100 mg/dL OptimalLDL 100-129 mg/dL Near or above optimalLDL 130-159 mg/dL Borderline highLDL 160-189 mg/dL HighLDL greater than 189 mg/dL Very high Cholesterol in VLDL Calc [Ma ss/Vol]Ordered By: Gabriela Florian on 04-15-2023 Cholesterol in VLDL [Mass/Vol] 30 mg/dL [facility] Creatinine [Mass/volume] in Serum or PlasmaOrdered By: Gabriela Florian on 04-15-2023 Creatinine [Mass/Vol] 1.71 mg/dL 0.70-1.30 [facility] Eosinophils Auto (Bld) [#/Vo l]Ordered By: Gabriela Florian on 04-15-2023 Eosinophils (Bld) [#/Vol] 0.3 10*3/uL 0.0-0.45 [facility] Eosinophils/100 WBC Auto (Bl d)Ordered By: Gabriela Florian on 04-15-2023 Eosinophils/100 WBC (Bld) 4.2 % . [facility] Erythrocyte distribution wid th Auto (RBC) [Ratio]Ordered By: Gabriela Florian on 04-15-2023 Erythrocyte distribution width (RBC) [Ratio] 13.9 % 12.0-14.8 [facility] Glucose [Mass/volume] in Ser um or PlasmaOrdered By: Gabriela Florian on 04-15-2023 Glucose [Mass/Vol] 141 mg/dL 70-100 [facility] Comment on above: ADA recommended refe rence rangeRandom Glucose Reference Range is dependent on time and content of last meal. Glucose of more than 200 mg/dL in a nonstressed, ambulatory subject supports the diagnosis of Diabetes Mellitus. Hematocrit Auto (Bld) [Volum e fraction]Ordered By: Gabriela Florian on 04-15-2023 Hematocrit (Bld) [Volume fraction] 35.7 % 38.8-50.0 [facility] Hemoglobin [Mass/volume] in BloodOrdered By: Gabriela Florian on 04-15-2023 Hemoglobin (Bld) [Mass/Vol] 11.8 g/dL 13.0-17.0 [facility] Laboratory - Chemistry and C hemistry - challengeon 04-15-2023 Cholesterol [Mass/Vol] 104\\S\\104 below low threshold 140-200 -[facility] 600 DO Work Phone: Comment on above: Chol less than 200 m g/dl low risk Chol 201-239 mg/dl borderline risk Chol 240 mg/dl and greater high risk Cholesterol in LDL [Mass/Vol] 43\\S\\43 Normal 0-100 -[facility] 600 DO Work Phone: Comment on above: [...] RBC Auto (Bld) [#/Vol] 8.2 10*3/uL 4.1-10.5 [facility] Lymphocytes Auto (Bld) [#/Vo l]Ordered By: Gabriela Florian on 04-15-2023 Lymphocytes (Bld) [#/Vol] 1.6 10*3/uL 1.00-4.8 [facility] Lymphocytes/100 WBC Auto (Bl d)Ordered By: Gabriela Florian on 04-15-2023 Lymphocytes/100 WBC (Bld) 19.9 % . [facility] MCH Auto (RBC) [Entitic mass ]Ordered By: Gabriela Florian on 04-15-2023 MCH (RBC) [Entitic mass] 27.6 pg 27.5-35.2 [facility] MCHC Auto (RBC) [Mass/Vol]Or dered By: Gabriela Florian on 04-15-2023 MCHC (RBC) [Mass/Vol] 33.0 g/dL 32.5-35.6 [facility] MCV Auto (RBC) [Entitic vol] Ordered By: Gabriela Florian on 04-15-2023 MCV (RBC) [Entitic vol] 83.6 fL 83.5-101 [facility] Monocytes Auto (Bld) [#/Vol] Ordered By: Gabriela Florian on 04-15-2023 Monocytes (Bld) [#/Vol] 0.9 10*3/uL 0.0-0.8 [facility] Monocytes/100 WBC Auto (Bld) Ordered By: Gabriela Florian on 04-15-2023 Monocytes/100 WBC (Bld) 10.4 % . [facility] Neutrophils Auto (Bld) [#/Vo l]Ordered By: Gabriela Florian on 04-15-2023 Neutrophils (Bld) [#/Vol] 5.3 10*3/uL 1.8-7.7 [facility] Neutrophils/100 WBC Auto (Bl d)Ordered By: Gabriela Florian on 04-15-2023 Neutrophils/100 WBC (Bld) 64.9 % . [facility] No Panel InformationOrdered By: Gabriela Florian on 04-15-2023 Estimated GFR (CKD-EPI) 41.746 mL/Min [facility] Creatinine Clearance (Chem N/A [facility] No Panel Informationon 04-15 64.9\\S\\64.9 Normal . [facility] 600 DO Work Phone: 8.8\\S\\8.8 Normal 6.6-10.1 [facility] 600 DO Work Phone: 165\\S\\165 Normal 150-450 [facility] 600 DO Work Phone: 13.9\\S\\13.9 Normal 12.0-14.8 [facility] 600 DO Work Phone: 33.0\\S\\33.0 Normal 32.5-35.6 [facility] 600 DO Work Phone: 27.6\\S\\27.6 Normal 27.5-35.2 [facility] 600 DO Work Phone: 5.3\\S\\5.3 Normal 1.8-7.7 -[facility] [place] 600 DO Work Phone: 0.0\\S\\0.0 Normal 0.0-0.2 -[facility] 600 DO Work Phone: [phone] Comment on above: PERFORMED BY:[facility] [place] [id number] MEDICAL DIRECTORLAZARUS MILLER M.D. 0.6\\S\\0.6 Normal . -[facility] 600 DO Work Phone: 4.2\\S\\4.2 Normal . [facility] 600 DO Work Phone: 10.4\\S\\10.4 Normal . [facility] 600 DO Work Phone: 19.9\\S\\19.9 Normal . [facility] 600 DO Work Phone: 0.3\\S\\0.3 Normal 0.0-0.45 [facility] 600 DO Work Phone: 0.9\\S\\0.9 above high threshold 0.0-0.8 [facility] 600 DO Work Phone: 1.6\\S\\1.6 Normal 1.00-4.8 [facility] 600 DO Work Phone: [phone] 83.6\\S\\83.6 Normal 83.5-101 [facility] 600 DO Work Phone: 35.7\\S\\35.7 below low threshold 38.8-50.0 -[facility] 600 DO Work Phone: 11.8\\S\\11.8 below low threshold 13.0-17.0 [facility] 600 DO Work Phone: 4.27\\S\\4.27 Normal 3.90-5.60 -[facility] 600 DO Work Phone: [phone] 8.2\\S\\8.2 Normal 4.1-10.5 -[facility] [employer] 600 DO Work Phone: [phone] 41.746\\S\\41.746 Normal -[facility] [employer] 600 DO Work Phone: [phone] 10.2\\S\\10.2 Normal 6.0-15.0 -[facility] [employer] 600 DO Work Phone: [phone] 9.1\\S\\9.1 Normal 8.6-10.3 -[facility] [employer] 600 DO Work Phone: [phone] 26.2\\S\\26.2 Normal 21.0-31.0 [facility] [employer] 600 DO Work Phone: [phone] 109\\S\\109 above high threshold 98-107 -[facility] [employer] [address] DO Work Phone: [phone] 5.4\\S\\5.4 above high threshold 3.5-5.1 -[facility] [employer] [address] DO Work Phone: [phone] 140\\S\\140 Normal 136-145 -[facility] [employer] 600 DO Work Phone: [phone] 1.71\\S\\1.71 above high threshold 0.70-1.30 -[facility] [employer] 600 DO Work Phone: [phone] 33\\S\\33 above high threshold 7-25 -[facility] [employer] 600 DO Work Phone: [phone] 141\\S\\141 above high threshold 70-100 [facility] [employer] 600 DO Work Phone: [phone] Comment on above: Random Glucose Refer ence Range is dependent on time and content of last meal. Glucose of more than 200 mg/dL in a nonstressed, ambulatory subject supports the diagnosis of Diabetes Mellitus. ADA recommended reference range 19\\S\\19 Normal 7-52 -[facility] [employer] 600 DO Work Phone: 3.5\\S\\3.5 Normal <5.0 [facility] 600 DO Work Phone: Comment on above: PERFORMED BY:[facility] [place], [place] [id number] MEDICAL DIRECTORLAZARUS MILLER M.D. 30\\S\\30 Normal 23-92 [facility] 600 DO Work Phone: Comment on above: HDL CHOL ATP-III CLA SSIFICATION Cardiovascular Risk HDL > or equal to 60 mg/dL LOW HDL < 40 mg/dL HIGH 154\\S\\154 above high threshold 0-149 [facility] 600 DO Work Phone: Comment on [...] RBC Auto Ql (Bld) 0.0 /100{WBC} 0-0.5 [facility] Platelet mean volume Auto (B ld) [Entitic vol]Ordered By: Gabriela Florian on 04-15-2023 Platelet mean volume (Bld) [Entitic vol] 8.8 fL 6.6-10.1 [facility] Platelets Auto (Bld) [#/Vol] Ordered By: Gabriela Florian on 04-15-2023 Platelets (Bld) [#/Vol] 165 10*3/uL 150-450 [facility] Potassium [Moles/volume] in Serum or PlasmaOrdered By: Gabriela Florian on 04-15-2023 Potassium [Moles/Vol] 5.4 mmol/L 3.5-5.1 [facility] RBC Auto (Bld) [#/Vol]Ordere d By: Gabriela Florian on 04-15-2023 RBC (Bld) [#/Vol] 4.27 10*6/uL 3.90-5.60 [facility] Serum or plasma anion gap de terminationOrdered By: Gabriela Florian on 04-15-2023 Anion gap [Moles/Vol] 10.2 mmol/L 6.0-15.0 [facility] Serum or plasma high density lipoprotein (HDL) cholesterol measurementOrdered By: Gabriela Florian on 04-15-2023 Cholesterol in HDL [Mass/Vol] 30 mg/dL 23-92 [facility] Comment on above: HDL CHOL ATP-III CLA SSIFICATION Cardiovascular RiskHDL > or equal to 60 mg/dL LOWHDL < 40 mg/dL HIGH Serum or plasma total choles terol/high density lipoprotein (HDL) cholesterol mass ratOrdered By: Gabriela Florian on 04-15-2023 Cholesterol.total/Flavia sterol in HDL [Mass ratio] 3.5 {ratio} <5.0 [facility] Sodium [Moles/volume] in Ser um or PlasmaOrdered By: Gabriela Florian on 04-15-2023 Sodium [Moles/Vol] 140 mmol/L 136-145 [facility] Triglyceride [Mass/volume] i n Serum or PlasmaOrdered By: Gabriela Florian on 04-15-2023 Triglyceride [Mass/Vol] 154 mg/dL 0-149 [facility] Comment on above: TRIG ATP III CLASSIF ICATIONTRIG less than 150 mg/dL NormalTRIG 150-199 mg/dL Borderline highTRIG 200-500 mg/dL High TRIG greater than 500 mg/dL Very highStandard traceable to the Center for Disease Conrtrol and Prevention (CDC) test method. Urea nitrogen [Mass/volume] in Serum or PlasmaOrdered By: Gabriela Florian on 04-15-2023 Urea nitrogen [Mass/Vol] 33 mg/dL 7- [facility] WBC Auto (Bld) [#/Vol]Ordere d By: Gabriela Florian on 04-15-2023 WBC (Bld) [#/Vol] 8.2 10*3/uL 4.1-10.5 [facility] Office Visit (Cardiology)on 10-16-2022 Follow-up visit Diagnoses/Problems Assessed 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of [place] coronary artery of [place] heart without angina pectoris (414.01) (I25.10) Hyperlipidemia (272.4) (E78.5) S/P PTCA (percutaneous transluminal coronary angioplasty) (V45.82) (Z98.61) 2017 RCA History of NM (myocardial infarction) (412) (I25.2) Essential hypertension (401.9) (I10) Stage 3a chronic kidney disease (585.3) (N18.31) Diabetes mellitus (250.00) (E11.9) Current some day smoker (305.1) (F17.200) 1 pack every 2 weeks Overweight with body mass index (BMI) of 27 to 27.9 in adult (278.02,V85.23) (E66.3,Z68.27) Orders 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of [place] coronary artery of [place] heart without angina pectoris Renew: Aspirin EC 81 MG Oral Tablet Delayed Release; TAKE 1 TABLET DAILY DIRECTED 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of [place] coronary artery of [place] heart without angina pectoris, Essential hypertension, History of NM (myocardial infarction), Hyperlipidemia, S/P PTCA (percutaneous transluminal coronary angioplasty) ALT - Alanine Aminotransferase, Serum; Status:Active - Retrospective Authorization; Requested for:[id number]; AST; Status:Active - Retrospective Authorization; Requested for:[id number]; Basic Metabolic Panel; Status:Active - Retrospective Authorization; Requested for:[id number]; Complete Blood Count; Status:Active - Retrospective Authorization; Requested for:[id number]; Lipid Panel; Status:Active - Retrospective Authorization; Requested for:[id number]; 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of [place] coronary artery of [place] heart without angina pectoris, Hyperlipidemia Renew: Atorvastatin [...] we can help. You may also call [phone]-NOW for free resources and assistance.; Status:Complete - [...] and confirm if taking lisinopril Chief Complaint GAGE LUGO is being seen for a 6 month follow-up of. Patient is in the office for follow-up for the problems noted below accompanied by his fiance. He recently underwent lumbar spinal surgery by Dr. Miller at [facility] with no complication he continues to wear [...] MG Ora (more content not included)... Normal [facility] Tobacco Screening.on 023 Adult depression screening assessment No [facility] [facility] 250 DO Work Phone: Fall risk assessment a) No falls within the last year [facility] [facility] 250 DO Work Phone: Tobacco use status CPHS b) No M [facility] [facility] 250 DO Work Phone: Creatinine and Glomerular fi ltration rate.predicted panel (S/P/Bld)Ordered By: Roberto Cullen on 10-06-2022 Creatinine [Mass/Vol] 1.57 mg/dL 0.64-1.27 [facility] Estimated glomerular filtrat ion rate (GFR) non- AmericanOrdered By: Roberto Cullen on 10-06-2022 GFR/1.73 sq M.predicted among non-blacks MDRD (S/P/Bld) [Vol rate/Area] 44 mL/Min [facility] Glucose Glucometer (BldC) [M ass/Vol]Ordered By: Clemente Miller on 10-06-2022 Glucose [Mass/Vol] 163 mg/dL [facility] Comment on above: Random Glucose Refer ence Range is dependent on time and content of last meal. Glucose of more than 200 mg/dL in a nonstressed, ambulatory subject supports the diagnosis of Diabetes Mellitus. No Panel InformationOrdered By: Roberto Cullen on 10-06-2022 Estimated GFR () 53 mL/Min [facility] Comment on above: GFR estimated refere nce range: According to KDOQI guidelines, <60 ml/min/1.73m2 is sufficient to diagnose a patient with chronic kidney disease. Pharmacy Creatinine Clearance (Chem 38.38 [facility] No Panel InformationOrdered By: Clemente Miller on 10-06-2022 Bedside Glucose Comment Glu2: cleaned meter [facility] Serum or plasma anion gap de terminationOrdered By: Roberto Cullen on 10-06-2022 Anion gap [Moles/Vol] 11.2 mmol/L 6.0-15.0 [facility] Serum or plasma calcium kirk urement (mass/volume)Ordered By: Roberto Cullen on 10-06-2022 Calcium [Mass/Vol] 8.5 mg/dL 8.2-10.2 [facility] Serum or plasma chloride tammy surement (moles/volume)Ordered By: Roberto Cullen on 10-06-2022 Chloride [Moles/Vol] 105 mmol/L 95-114 [facility] Serum or plasma glucose kirk urement (mass/volume)Ordered By: Roberto Cullen on 10-06-2022 Glucose [Mass/Vol] 114 mg/dL 70-100 [facility] Comment on above: ADA recommended refe rence rangeRandom Glucose Reference Range is dependent on time and content of last meal. Glucose of more than 200 mg/dL in a nonstressed, ambulatory subject supports the diagnosis of Diabetes Mellitus. Serum or plasma potassium me asurement (moles/volume)Ordered By: Roberto Cullen on 10-06-2022 Potassium [Moles/Vol] 4.0 mmol/L 3.5-5.1 [facility] Serum or plasma sodium measu rement (moles/volume)Ordered By: Roberto Cullen on 10-06-2022 Sodium [Moles/Vol] 135 mmol/L 136-146 [facility] Serum or plasma total carbon dioxide measurement (moles/volume)Ordered By: Roberto Cullen on 10-06-2022 CO2 [Moles/Vol] 22.8 mmol/L 22.0-30.0 [facility] Serum or plasma urea nitroge n measurement (mass/volume)Ordered By: Roberto Cullen on 10-06-2022 Urea nitrogen [Mass/Vol] 49 mg/dL - [facility] Basophils Auto (Bld) [#/Vol] Ordered By: Kali Isaac on 12-30-2022 Basophils (Bld) [#/Vol] 0.0 10*3/uL 0.0-0.2 [facility] Basophils/100 WBC Auto (Bld) Ordered By: Kali Isaac on 10-04-2022 Basophils/100 WBC (Bld) 0.2 % . [facility] Eosinophils Auto (Bld) [#/Vo l]Ordered By: Kali Isaac on 10-04-2022 Eosinophils (Bld) [#/Vol] 0.0 10*3/uL 0.0-0.45 [facility] Eosinophils/100 WBC Auto (Bl d)Ordered By: Kali Isaac on 10-04-2022 Eosinophils/100 WBC (Bld) 0.0 % . [facility] Erythrocyte distribution wid th Auto (RBC) [Ratio]Ordered By: Kali Isaac on 10-04-2022 Erythrocyte distribution width (RBC) [Ratio] 13.3 % 12.0-14.8 [facility] Hematocrit Auto (Bld) [Volum e fraction]Ordered By: Kali Isaac on 10-04-2022 Hematocrit (Bld) [Volume fraction] 34.3 % 38.8-50.0 [facility] Hemoglobin [Mass/volume] in BloodOrdered By: Kali Isaac on 10-04-2022 Hemoglobin (Bld) [Mass/Vol] 11.3 g/dL 13.0-17.0 [facility] Laboratory - Chemistry and C hemistry - challengeOrdered By: Kali Isaac on 10-04-2022 Magnesium [Mass/Vol] 2.2 mg/dL 1.6-2.6 [facility] Leukocytes [#/volume] correc ruben for nucleated erythrocytes in Blood by Automated counOrdered By: Kali Isaac on 10-04-2022 WBC corrected for nucl RBC Auto (Bld) [#/Vol] 16.0 10*3/uL 4.1-10.5 [facility] Lymphocytes Auto (Bld) [#/Vo l]Ordered By: Kali Isaac on 10-04-2022 Lymphocytes (Bld) [#/Vol] 1.0 10*3/uL 1.00-4.8 [facility] Lymphocytes/100 WBC Auto (Bl d)Ordered By: Kali Isaac on 10-04-2022 Lymphocytes/100 WBC (Bld) 6.1 % . [facility] MCH Auto (RBC) [Entitic mass ]Ordered By: Kali Isaac on 10-04-2022 MCH (RBC) [Entitic mass] 28.1 pg 27.5-35.2 [facility] MCHC Auto (RBC) [Mass/Vol]Or dered By: Kali Isaac on 10-04-2022 MCHC (RBC) [Mass/Vol] 33.0 g/dL 32.5-35.6 [facility] MCV Auto (RBC) [Entitic vol] Ordered By: Kali Isaac on 10-04-2022 MCV (RBC) [Entitic vol] 85.3 fL 83.5-101 [facility] Monocytes Auto (Bld) [#/Vol] Ordered By: Kali Isaac on 10-04-2022 Monocytes (Bld) [#/Vol] 1.1 10*3/uL 0.0-0.8 [facility] Monocytes/100 WBC Auto (Bld) Ordered By: Kali Isaac on 10-04-2022 Monocytes/100 WBC (Bld) 6.6 % . [facility] Neutrophils Auto (Bld) [#/Vo l]Ordered By: Kali Isaac on 10-04-2022 Neutrophils (Bld) [#/Vol] 14.0 10*3/uL 1.8-7.7 [facility] Neutrophils/100 WBC Auto (Bl d)Ordered By: Kali Isaac on 10-04-2022 Neutrophils/100 WBC (Bld) 87.1 % . [facility] Nucleated erythrocytes [Pres ence] in Blood by Automated countOrdered By: Kali Isaac on 10-04-2022 Nucleated RBC Auto Ql (Bld) 0.0 /100{WBC} 0-0.5 [facility] Platelet mean volume Auto (B ld) [Entitic vol]Ordered By: Kali Isaac on 10-04-2022 Platelet mean volume (Bld) [Entitic vol] 8.3 fL 6.6-10.1 [facility] Platelets Auto (Bld) [#/Vol] Ordered By: Kali Isaac on 10-04-2022 Platelets (Bld) [#/Vol] 159 10*3/uL 150-450 [facility] RBC Auto (Bld) [#/Vol]Ordere d By: Kali Isaac on 10-04-2022 RBC (Bld) [#/Vol] 4.03 10*6/uL 3.90-5.60 [facility] WBC Auto (Bld) [#/Vol]Ordere d By: Kali Isaac on 10-04-2022 WBC (Bld) [#/Vol] 16.0 10*3/uL 4.1-10.5 [facility] Glucose mean value [Mass/vol ume] in Blood Estimated from glycated hemoglobinOrdered By: Kali Isaac on 10-03-2022 Average glucose Estimated from glycated hemoglobin (Bld) [Mass/Vol] 154 mg/dL [facility] Hemoglobin A1c percentageOrd ered By: Kali Isaac on 10-03-2022 HbA1c (Bld) [Mass fraction] 7.0 % 4.3-5.6 [facility] Comment on above: Increased risk for d iabetes: 5.7 - 6.4diabetes: >6.4glycemic control for adults with diabetes: <7.0 COVID-19 SOFIAOrdered By: Ag Johnson on 10-01-2022 SARS-CoV+SARS-CoV-2 (COVID-19) Ag IA.rapid Ql (Resp) Negative Negative [facility] Comment on above: This is a duplicate Yelena SARS Antigen (SALIMA) result to be used for statistical tracking purpose only. No Panel InformationOrdered By: Clemente Miller on 10-01-2022 SARS Antigen (LFIA) [facility] Basophils Auto (Bld) [#/Vol] Ordered By: Clemente Miller on 09-18-2022 Basophils (Bld) [#/Vol] 0.0 10*3/uL 0.0-0.2 [facility] Basophils/100 WBC Auto (Bld) Ordered By: Clemente Miller on 09-18-2022 Basophils/100 WBC (Bld) 0.3 % . [facility] Creatinine and Glomerular fi ltration rate.predicted panel (S/P/Bld)Ordered By: Clemente Miller on 09-18-2022 Creatinine [Mass/Vol] 1.41 mg/dL 0.64-1.27 [facility] Eosinophils Auto (Bld) [#/Vo l]Ordered By: Clemente Miller on 09-18-2022 Eosinophils (Bld) [#/Vol] 0.2 10*3/uL 0.0-0.45 [facility] Eosinophils/100 WBC Auto (Bl d)Ordered By: Clemente Miller on 09-18-2022 Eosinophils/100 WBC (Bld) 3.0 % . [facility] Erythrocyte distribution wid th Auto (RBC) [Ratio]Ordered By: Clemente Miller on 09-18-2022 Erythrocyte distribution width (RBC) [Ratio] 13.5 % 12.0-14.8 [facility] Estimated glomerular filtrat ion rate (GFR) non- AmericanOrdered By: Clemente Miller on 09-18-2022 GFR/1.73 sq M.predicted among non-blacks MDRD (S/P/Bld) [Vol rate/Area] 49 mL/Min [facility] Hematocrit Auto (Bld) [Volum e fraction]Ordered By: Clemente Miller on 09-18-2022 Hematocrit (Bld) [Volume fraction] 40.4 % 38.8-50.0 [facility] Hemoglobin [Mass/volume] in BloodOrdered By: Clemente Miller on 09-18-2022 Hemoglobin (Bld) [Mass/Vol] 13.2 g/dL 13.0-17.0 [facility] Leukocytes [#/volume] correc ruben for nucleated erythrocytes in Blood by Automated counOrdered By: Clemente Miller on 09-18-2022 WBC corrected for nucl RBC Auto (Bld) [#/Vol] 7.4 10*3/uL 4.1-10.5 [facility] Lymphocytes Auto (Bld) [#/Vo l]Ordered By: Clemente Miller on 09-18-2022 Lymphocytes (Bld) [#/Vol] 1.9 10*3/uL 1.00-4.8 [facility] Lymphocytes/100 WBC Auto (Bl d)Ordered By: Clemente Miller on 09-18-2022 Lymphocytes/100 WBC (Bld) 26.3 % . [facility] MCH Auto (RBC) [Entitic mass ]Ordered By: Clemente Miller on 09-18-2022 MCH (RBC) [Entitic mass] 28.0 pg 27.5-35.2 [facility] MCHC Auto (RBC) [Mass/Vol]Or dered By: Clemente Miller on 09-18-2022 MCHC (RBC) [Mass/Vol] 32.8 g/dL 32.5-35.6 [facility] MCV Auto (RBC) [Entitic vol] Ordered By: Clemente Miller on 09-18-2022 MCV (RBC) [Entitic vol] 85.4 fL 83.5-101 [facility] Monocytes Auto (Bld) [#/Vol] Ordered By: Clemente Miller on 09-18-2022 Monocytes (Bld) [#/Vol] 0.8 10*3/uL 0.0-0.8 [facility] Monocytes/100 WBC Auto (Bld) Ordered By: Clemente Miller on 09-18-2022 Monocytes/100 WBC (Bld) 10.7 % . [facility] Neutrophils Auto (Bld) [#/Vo l]Ordered By: Clemente Miller on 09-18-2022 Neutrophils (Bld) [#/Vol] 4.4 10*3/uL 1.8-7.7 [facility] Neutrophils/100 WBC Auto (Bl d)Ordered By: Clemente Miller on 09-18-2022 Neutrophils/100 WBC (Bld) 59.7 % . [facility] No Panel InformationOrdered By: Clemente Miller on 09-18-2022 Estimated GFR () 60 mL/Min [facility] Comment on above: GFR estimated refere nce range: According to KDOQI guidelines, <60 ml/min/1.73m2 is sufficient to diagnose a patient with chronic kidney disease. Pharmacy Creatinine Clearance (Chem N/A [facility] Nucleated erythrocytes [Pres ence] in Blood by Automated countOrdered By: Clemente Miller on 09-18-2022 Nucleated RBC Auto Ql (Bld) 0.1 /100{WBC} 0-0.5 [facility] Platelet mean volume Auto (B ld) [Entitic vol]Ordered By: Clemente Miller on 09-18-2022 Platelet mean volume (Bld) [Entitic vol] 8.5 fL 6.6-10.1 [facility] Platelets Auto (Bld) [#/Vol] Ordered By: Clemente Miller on 09-18-2022 Platelets (Bld) [#/Vol] 184 10*3/uL 150-450 [facility] RBC Auto (Bld) [#/Vol]Ordere d By: Clemente Miller on 09-18-2022 RBC (Bld) [#/Vol] 4.73 10*6/uL 3.90-5.60 [facility] Serum or plasma anion gap de terminationOrdered By: Clemente Miller on 09-18-2022 Anion gap [Moles/Vol] 17.5 mmol/L 6.0-15.0 [facility] Serum or plasma calcium kirk urement (mass/volume)Ordered By: Clemenet Miller on 09-18-2022 Calcium [Mass/Vol] 9.2 mg/dL 8.2-10.2 [facility] Serum or plasma chloride tammy surement (moles/volume)Ordered By: Clemente Miller on 09-18-2022 Chloride [Moles/Vol] 102 mmol/L 95-114 [facility] Serum or plasma glucose kirk urement (mass/volume)Ordered By: Clemente Miller on 09-18-2022 Glucose [Mass/Vol] 130 mg/dL 70-100 [facility] Comment on above: ADA recommended refe rence rangeRandom Glucose Reference Range is dependent on time and content of last meal. Glucose of more than 200 mg/dL in a nonstressed, ambulatory subject supports the diagnosis of Diabetes Mellitus. Serum or plasma potassium me asurement (moles/volume)Ordered By: Clemente Miller on 09-18-2022 Potassium [Moles/Vol] 4.6 mmol/L 3.5-5.1 [facility] Serum or plasma sodium measu rement (moles/volume)Ordered By: Clemente Miller on 09-18-2022 Sodium [Moles/Vol] 139 mmol/L 136-146 [facility] Serum or plasma total carbon dioxide measurement (moles/volume)Ordered By: Clemente Miller on 09-18-2022 CO2 [Moles/Vol] 24.1 mmol/L 22.0-30.0 [facility] Serum or plasma urea nitroge n measurement (mass/volume)Ordered By: Clemente Miller on 09-18-2022 Urea nitrogen [Mass/Vol] 17 mg/dL 9- [facility] WBC Auto (Bld) [#/Vol]Ordere d By: Clemente Miller on 09-18-2022 WBC (Bld) [#/Vol] 7.4 10*3/uL 4.1-10.5 [facility] A1C HEMOGLOBINon 08-19-2022 HbA1c (Bld) [Mass fraction] 6.5 % [employer] Other HbA1c (Bld) [Mass fraction]o n 08-19-2022 A1C HEMOGLOBIN [facility] Other Basophils Auto (Bld) [#/Vol] Ordered By: Lolita Adorno on 05-15-2022 Basophils (Bld) [#/Vol] 0.0 10*3/uL 0.0-0.2 [facility] Basophils/100 WBC Auto (Bld) Ordered By: Lolita Adorno on 05-15-2022 Basophils/100 WBC (Bld) 0.6 % . [facility] Blood hemoglobin measurement (mass/volume)Ordered By: Lolita Adorno on 05-15-2022 Hemoglobin (Bld) [Mass/Vol] 13.3 g/dL 13.0-17.0 [facility] Blood leukocytes automated c ount (number/volume)Ordered By: Lolita Adorno on 05-15-2022 WBC (Bld) [#/Vol] 8.3 10*3/uL 4.5-11.0 [facility] Body fluid albumin measureme nt (mass/volume)Ordered By: Lolita Adorno on 05-15-2022 Albumin (Body fld) [Mass/Vol] 4.1 g/dL 3.2-5.5 [facility] Cholesterol [Mass/volume] in Serum or PlasmaOrdered By: Lolita Adorno on 05-15-2022 Cholesterol [Mass/Vol] 102 mg/dL 140-200 [facility] Comment on above: Chol less than 200 m g/dl low riskChol 201-239 mg/dl borderline riskChol 240 mg/dl and greater high risk Cholesterol in LDL Calc [Mas s/Vol]Ordered By: Lolita Adorno on 05-15-2022 Cholesterol in LDL [Mass/Vol] 45 mg/dL 0-100 [facility] Comment on above: LDL ATP III CLASSIFI CATIONLDL less than 100 mg/dL OptimalLDL 100-129 mg/dL Near or above optimalLDL 130-159 mg/dL Borderline highLDL 160-189 mg/dL HighLDL greater than 189 mg/dL Very high Cholesterol in VLDL Calc [Ma ss/Vol]Ordered By: Lolita Adorno on 05-15-2022 Cholesterol in VLDL [Mass/Vol] 24 mg/dL [facility] Creatinine and Glomerular fi ltration rate.predicted panel (S/P/Bld)Ordered By: Lolita Adorno on 05-15-2022 Creatinine [Mass/Vol] 1.46 mg/dL 0.64-1.27 [facility] Eosinophils Auto (Bld) [#/Vo l]Ordered By: Lolita Adorno on 05-15-2022 Eosinophils (Bld) [#/Vol] 0.3 10*3/uL 0.0-0.45 [facility] Eosinophils/100 WBC Auto (Bl d)Ordered By: Lolita Adorno on 05-15-2022 Eosinophils/100 WBC (Bld) 3.5 % . [facility] Erythrocyte distribution wid th Auto (RBC) [Ratio]Ordered By: Lolita Adorno on 05-15-2022 Erythrocyte distribution width (RBC) [Ratio] 13.4 % 12.0-14.8 [facility] Estimated glomerular filtrat ion rate (GFR) non- AmericanOrdered By: Lolita Adorno on 05-15-2022 GFR/1.73 sq M.predicted among non-blacks MDRD (S/P/Bld) [Vol rate/Area] 47 mL/Min [facility] Globulin Calc (S) [Mass/Vol] Ordered By: Lolita Adorno on 05-15-2022 Globulin (S) [Mass/Vol] 2.8 g/dL [facility] Hematocrit Auto (Bld) [Volum e fraction]Ordered By: Lolita Adorno on 05-15-2022 Hematocrit (Bld) [Volume fraction] 40.9 % 38.8-50.0 [facility] Laboratory - Hematology and Cell countsOrdered By: Lolita Adorno on 05-15-2022 Nucleated RBC/100 WBC (Bld) [Ratio] 0.2 % 0-0.5 [facility] Lymphocytes Auto (Bld) [#/Vo l]Ordered By: Lolita Adorno on 05-15-2022 Lymphocytes (Bld) [#/Vol] 1.5 10*3/uL 1.00-4.8 [facility] Lymphocytes/100 WBC Auto (Bl d)Ordered By: Lolita Adorno on 05-15-2022 Lymphocytes/100 WBC (Bld) 18.2 % . [facility] MCH Auto (RBC) [Entitic mass ]Ordered By: Lolita Adorno on 05-15-2022 MCH (RBC) [Entitic mass] 28.3 pg 27.5-35.2 [facility] MCHC Auto (RBC) [Mass/Vol]Or dered By: Lolita Adorno on 05-15-2022 MCHC (RBC) [Mass/Vol] 32.6 g/dL 32.5-35.6 [facility] MCV Auto (RBC) [Entitic vol] Ordered By: Lolita Adorno on 05-15-2022 MCV (RBC) [Entitic vol] 86.9 fL 83.5-101 [facility] Monocytes Auto (Bld) [#/Vol] Ordered By: Lolita Adorno on 05-15-2022 Monocytes (Bld) [#/Vol] 0.9 10*3/uL 0.0-0.8 [facility] Monocytes/100 WBC Auto (Bld) Ordered By: Lolita Adorno on 05-15-2022 Monocytes/100 WBC (Bld) 10.5 % . [facility] Neutrophils Auto (Bld) [#/Vo l]Ordered By: Lolita Adorno on 05-15-2022 Neutrophils (Bld) [#/Vol] 5.6 10*3/uL 1.8-7.7 [facility] Neutrophils/100 WBC Auto (Bl d)Ordered By: Lolita Adorno on 05-15-2022 Neutrophils/100 WBC (Bld) 67.2 % . [facility] No Panel InformationOrdered By: Lolita Adorno on 05-15-2022 Estimated GFR () 57 mL/Min [facility] Comment on above: GFR estimated refere nce range: According to KDOQI guidelines, <60 ml/min/1.73m2 is sufficient to diagnose a patient with chronic kidney disease. Pharmacy Creatinine Clearance (Chem N/A [facility] Prostate Specific Antigen Screen 1.710 ng/mL 0.000-4.00 0 [facility] Platelet mean volume Auto (B ld) [Entitic vol]Ordered By: Lolita Adorno on 05-15-2022 Platelet mean volume (Bld) [Entitic vol] 8.8 fL 6.6-10.1 [facility] Platelets Auto (Bld) [#/Vol] Ordered By: Lolita Adorno on 05-15-2022 Platelets (Bld) [#/Vol] 221 10*3/uL 150-450 [facility] Protein [Mass/volume] in Ser um or PlasmaOrdered By: Lolita Adorno on 05-15-2022 Protein [Mass/Vol] 6.9 g/dL 6.1-7.9 [facility] RBC Auto (Bld) [#/Vol]Ordere d By: Lolita Adorno on 05-15-2022 RBC (Bld) [#/Vol] 4.71 10*6/uL 3.90-5.60 [facility] Serum or plasma alanine lujan otransferase measurement without P-5'-P (enzymatic activiOrdered By: Lolita Adorno on 05-15-2022 ALT No additional P-5'-P [Catalytic activity/Vol] 21 U/L 10-60 [facility] Serum or plasma albumin/glob ulin mass ratioOrdered By: Lolita Adorno on 05-15-2022 Albumin/Globulin [Mass ratio] 1.5 {ratio} [facility] Serum or plasma alkaline nata sphatase measurement (enzymatic activity/volume)Ordered By: Lolita Adorno on 05-15-2022 ALP [Catalytic activity/Vol] 86 U/L 32-92 [facility] Serum or plasma aspartate am inotransferase measurement (enzymatic activity/volume)Ordered By: Lolita Adorno on 05-15-2022 AST [Catalytic activity/Vol] 20 U/L 10-42 [facility] Serum or plasma calcium kirk urement (mass/volume)Ordered By: Lolita Adorno on 05-15-2022 Calcium [Mass/Vol] 9.4 mg/dL 8.2-10.2 [facility] Serum or plasma chloride tammy surement (moles/volume)Ordered By: Lolita Adorno on 05-15-2022 Chloride [Moles/Vol] 103 mmol/L 95-114 [facility] Serum or plasma glucose kirk urement (mass/volume)Ordered By: Lolita Adorno on 05-15-2022 Glucose [Mass/Vol] 131 mg/dL 70-100 [facility] Comment on above: ADA recommended refe rence rangeRandom Glucose Reference Range is dependent on time and content of last meal. Glucose of more than 200 mg/dL in a nonstressed, ambulatory subject supports the diagnosis of Diabetes Mellitus. Serum or plasma high density lipoprotein (HDL) cholesterol measurementOrdered By: Lolita Adorno on 05-15-2022 Cholesterol in HDL [Mass/Vol] 33 mg/dL 29-71 [facility] Comment on above: HDL CHOL ATP-III CLA SSIFICATION Cardiovascular RiskHDL > or equal to 60 mg/dL LOWHDL < 40 mg/dL HIGH Serum or plasma potassium me asurement (moles/volume)Ordered By: Lolita Adorno on 05-15-2022 Potassium [Moles/Vol] 4.4 mmol/L 3.5-5.1 [facility] Serum or plasma sodium measu rement (moles/volume)Ordered By: Lolita Adorno on 05-15-2022 Sodium [Moles/Vol] 139 mmol/L 136-146 [facility] Serum or plasma total biliru bin measurement (mass/volume)Ordered By: Lolita Adorno on 05-15-2022 Bilirubin [Mass/Vol] 0.4 mg/dL 0.3-1.2 [facility] Serum or plasma total carbon dioxide measurement (moles/volume)Ordered By: Lolita Adorno on 05-15-2022 CO2 [Moles/Vol] 25.4 mmol/L 22.0-30.0 [facility] Serum or plasma total choles terol/high density lipoprotein (HDL) cholesterol mass ratOrdered By: Lolita Adorno on 05-15-2022 Cholesterol.total/Flavia sterol in HDL [Mass ratio] 3.1 {ratio} <5.0 [facility] Serum or plasma urea nitroge n measurement (mass/volume)Ordered By: Lolita Adorno on 05-15-2022 Urea nitrogen [Mass/Vol] 23 mg/dL 9-23 [facility] TSH DL <= 0.005 mIU/L QnOrde red By: Lolita Adorno on 05-15-2022 TSH Qn 2.88 m[IU]/L 0.45-5.33 [facility] Triglyceride [Mass/volume] i n Serum or PlasmaOrdered By: Lolita Adorno on 05-15-2022 Triglyceride [Mass/Vol] 122 mg/dL 35-149 [facility] Comment on above: TRIG ATP III CLASSIF ICATIONTRIG less than 150 mg/dL NormalTRIG 150-199 mg/dL Borderline highTRIG 200-500 mg/dL High TRIG greater than 500 mg/dL Very highStandard traceable to the Center for Disease Conrtrol and Prevention (CDC) test method. A1C HEMOGLOBINon 05-14-2022 HbA1c (Bld) [Mass fraction] 6.5 % [employer] Other HbA1c (Bld) [Mass fraction]o n 05-14-2022 A1C HEMOGLOBIN [email or web address] Other Tobacco Screening.on 022 Adult depression screening assessment No [facility] y 250 DO Work Phone: Fall risk assessment a) No falls within the last year [facility] Vance shin 250 DO Work Phone: Tobacco use status CPHS a) Yes M [facility] Vance y 250 DO Work Phone: Tobacco Screening. Yes [facility] Vance y 250 DO Work Phone: A1C HEMOGLOBINon 02-11-2022 HbA1c (Bld) [Mass fraction] 6.3 % [employer] Other HbA1c (Bld) [Mass fraction]o n 02-11-2022 A1C HEMOGLOBIN [email or web address] Other A1C HEMOGLOBINon 11-13-2021 HbA1c (Bld) [Mass fraction] 6.8 % [employer] Other HbA1c (Bld) [Mass fraction]o n 11-13-2021 A1C HEMOGLOBIN [email or web address] Other Tobacco Screening.on 021 Fall risk assessment b) One or more fall s in the last year [facility] gloStreamLennox y 250 DO Work Phone: Tobacco use status CPHS a) Yes M [facility] Vance y 250 DO Work Phone: Tobacco Screening. Yes [facility] Vance y 250 DO Work Phone: [facility] CARDIAC STRESS/REST ([place] CARDIAL PERFUSION/MIBI)on 09-25-2020 [facility] CARDIAC STRESS/REST (MYOCARDIAL PERFUSION/MIBI) Patient Name: GAGE LUGO STUDY: MYOCARDIAL PERFUSION STRESS TEST WITH LEXISCAN Performing facility: [facility], \\[address], [address], \\[place] [address] [facility] Provider: Jesse Morrissey MD PCP: Dr. Kristopher Dumont Supervising provider: Adalberto Tom MD, [facility] INDICATION: CAD; Chest Pain; Diabetes Essential HTN Hyperlipidemia HISTORY: Gender: M; Age: 70 y/o ; Height: 170.18 cm; Weight: 82.7403385 kg. High Cholesterol; CAD; Diabetes; Previous NM; HTN; Chest Pain; Quit smoking 3 years ago. PTCA on 2016. COMPARISON: Previous nuclear testing completed [id number] [facility]. ACCESSION NUMBER(S): [id number]; [id number]; [id number] ORDERING CLINICIAN: JESSE MORRISSEY TECHNIQUE: ONE DAY [...] Electronically signed by: GABRIELA FLORIAN MD Normal [facility] CARDIAC STRESS/REST INJE CTIONon 09-25-2020 [facility] CARDIAC STRESS/REST INJECTION Patient Name: GAGE LUGO STUDY: MYOCARDIAL PERFUSION STRESS TEST WITH LEXISCAN Performing facility: [facility], \\[address], [address], \\[place] [id number] [facility] Provider: Jesse Morrissey MD PCP: Dr. Kristopher Dumont Supervising provider: Adalberto Tom MD, [facility] INDICATION: CAD; Chest Pain; Diabetes Essential HTN Hyperlipidemia HISTORY: Gender: M; Age: 70 y/o ; Height: 170.18 cm; Weight: 82.8768991 kg. High Cholesterol; CAD; Diabetes; Previous NM; HTN; Chest Pain; Quit smoking 3 years ago. PTCA on 2016. COMPARISON: Previous nuclear testing completed [id number] [facility]. ACCESSION NUMBER(S): [id number]; [id number]; [id number] ORDERING CLINICIAN: JESSE MORRISSEY TECHNIQUE: ONE DAY [...] changes. Electronically signed by: GABRIELA FLORIAN MD [facility] PART 2 STRESS OR REST (N O CHARGE)on 09-25-2020 [facility] PART 2 STRESS OR REST (NO CHARGE) Patient Name: GAGE LUGO STUDY: MYOCARDIAL PERFUSION STRESS TEST WITH LEXISCAN Performing facility: [facility], \\[address] [place] [address], [address], \\[address] Provider: Jesse Morrissey MD PCP: Dr. Kristopher Dumont Supervising provider: Adalberto Tom MD, [facility] INDICATION: CAD; Chest Pain; Diabetes Essential HTN Hyperlipidemia HISTORY: Gender: M; Age: 70 y/o ; Height: 170.18 cm; Weight: 82.6239163 kg. High Cholesterol; CAD; Diabetes; Previous NM; HTN; Chest Pain; Quit smoking 3 years ago. PTCA on 2017. COMPARISON: Previous nuclear testing completed [id number] [facility]. ACCESSION NUMBER(S): [id number]; [id number]; [id number] ORDERING CLINICIAN: JESSE MORRISSEY TECHNIQUE: ONE DAY [...] Electronically signed by: GABRIELA FLORIAN MD Normal [facility] Vital Signs Date Time Vital Sign Value Performing Clinician Facility 10-27-2024 08:35-0500 Body height 162.56 cm [employer] Work Phone: [facility] 10-27-2024 08:35-0500 Body mass index (BMI) [Ratio] 27.5 kg/m2 [employer] DO Work Phone: [facility] 10-27-2024 08:35-0500 Body weight 72.68 kg Lolita Schwerer DO Work Phone: [facility] 10-27-2024 08:35-0500 Diastolic blood pressure 64 mm[Hg] Lolita Schwerer DO Work Phone: [facility] 10-27-2024 08:35-0500 Heart rate 60 /min Lolita Schwerer DO Work Phone: [facility] 10-27-2024 08:35-0500 Respiratory rate 16 /min Lolita Schwerer DO Work Phone: [facility] 10-27-2024 08:35-0500 SaO2% (BldA) [Mass fraction] 96 % Lolita Schwerer DO Work Phone: [facility] 10-27-2024 08:35-0500 Systolic blood pressure 110 mm[Hg] Lolita Schwerer DO Work Phone: [facility] 10-12-2024 11:08-0500 Body height 165.1 cm Lolita Schwerer DO Work Phone: [facility] 10-12-2024 11:08-0500 Body mass index (BMI) [Ratio] 27.6 kg/m2 Lolita Schwerer DO Work Phone: [facility] 10-12-2024 11:08-0500 Body temperature 96.9 [degF] Lolita Schwerer DO Work Phone: [facility] 10-12-2024 11:08-0500 Body weight 75.38 kg Lolita Schwerer DO Work Phone: [facility] 10-12-2024 11:08-0500 Diastolic blood pressure 62 mm[Hg] Lolita Schwerer DO Work Phone: [facility] 10-12-2024 11:08-0500 Heart rate 64 /min Lolita Schwerer DO Work Phone: [facility] 10-12-2024 11:08-0500 SaO2% (BldA) [Mass fraction] 97 % Lolita Schwerer DO Work Phone: [facility] 10-12-2024 11:08-0500 Systolic blood pressure 104 mm[Hg] Lolita Schwerer DO Work Phone: [facility] 10-08-2024 11:27-0500 Diastolic blood pressure 63 mm[Hg] Lolita Schwerer DO Work Phone: [facility] 10-08-2024 11:27-0500 Heart rate 71 /min Lolita Schwerer DO Work Phone: [facility] 10-08-2024 11:27-0500 Respiratory rate 18 /min Lolita Schwerer DO Work Phone: [facility] 10-08-2024 11:27-0500 SaO2% (BldA) [Mass fraction] 96 % Lolita Schwerer DO Work Phone: [facility] 10-08-2024 11:27-0500 Systolic blood pressure 115 mm[Hg] Lolita Schwerer DO Work Phone: [facility] 10-08-2024 07:37-0500 Body temperature 97.3 [degF] Lolita Schwerer DO Work Phone: [facility] 10-08-2024 06:49-0500 Body weight 81.8 kg Lolita Schwerer DO Work Phone: [facility] 10-06-2024 18:24-0500 Body height 165.1 cm Lolita Schwerer DO Work Phone: [facility] 10-06-2024 17:00-0500 Diastolic blood pressure 76 mm[Hg] Lolita Schwerer DO Work Phone: [facility] 10-06-2024 17:00-0500 Heart rate 77 /min Lolita Schwerer DO Work Phone: [facility] 10-06-2024 17:00-0500 Respiratory rate 18 /min Lolita Schwerer DO Work Phone: [facility] 10-06-2024 17:00-0500 SaO2% (BldA) [Mass fraction] 97 % Lolita Schwerer DO Work Phone: [facility] 10-06-2024 17:00-0500 Systolic blood pressure 159 mm[Hg] Lolita Schwerer DO Work Phone: [facility] 10-06-2024 15:19-0500 Body height 165.1 cm Lolita Schwerer DO Work Phone: [facility] 10-06-2024 15:19-0500 Body temperature 97.7 [degF] Lolita Schwerer DO Work Phone: [facility] 10-06-2024 15:19-0500 Body weight 74.84 kg Lolita Schwerer DO Work Phone: [facility] 10-06-2024 14:58-0500 Body temperature 97.9 [degF] Lolita Schwerer DO Work Phone: [facility] 10-06-2024 14:58-0500 Diastolic blood pressure 91 mm[Hg] Lolita Schwerer DO Work Phone: [facility] 10-06-2024 14:58-0500 Heart rate 85 /min Lolita Schwerer DO Work Phone: [facility] 10-06-2024 14:58-0500 Respiratory rate 16 /min Lolita Schwerer DO Work Phone: [facility] 10-06-2024 14:58-0500 SaO2% (BldA) [Mass fraction] 95 % Lolita Schwerer DO Work Phone: [facility] 10-06-2024 14:58-0500 Systolic blood pressure 198 mm[Hg] Lolita Schwerer DO Work Phone: [facility] 10-06-2024 05:23-0500 Body weight 75.1 kg Lolita Schwerer DO Work Phone: [facility] 10-05-2024 12:43-0500 Body height 167.64 cm Lolita Schwerer DO Work Phone: [facility] 08-30-2024 14:53-0500 Body height 167.64 cm Lolita Schwerer DO Work Phone: [facility] 08-30-2024 14:53-0500 Body mass index (BMI) [Ratio] 27.6 kg/m2 Lolita Schwerer DO Work Phone: [phone] [place] [address] 08-30-2024 14:53-0500 Body temperature 97.2 [degF] Lolita Schwerer DO Work Phone: [facility] 08-30-2024 14:53-0500 Body weight 77.73 kg Lolita Schwerer DO Work Phone: [facility] 08-30-2024 14:53-0500 Diastolic blood pressure 81 mm[Hg] Lolita Schwerer DO Work Phone: [facility] 08-30-2024 14:53-0500 Heart rate 78 /min Lolita Schwerer DO Work Phone: [facility] 08-30-2024 14:53-0500 Respiratory rate 16 /min Lolita Schwerer DO Work Phone: [facility] 08-30-2024 14:53-0500 SaO2% (BldA) [Mass fraction] 97 % Lolita Schwerer DO Work Phone: [facility] [facility] 14:53-0500 Systolic blood pressure 171 mm[Hg] Lolita Adorno DO Work Phone: [facility] 07-23-2024 10:54-0400 Body height 167.64 cm [facility] 07-23-2024 10:54-0400 Body mass index (BMI) [Ratio] 26.6 kg/m2 [facility] 07-23-2024 10:54-0400 Body temperature 97.4 [degF] [facility] 07-23-2024 10:54-0400 Body weight 74.92 kg [facility] 07-23-2024 10:54-0400 Diastolic blood pressure 68 mm[Hg] [facility] 07-23-2024 10:54-0400 Heart rate 52 /min [facility] 07-23-2024 10:54-0400 SaO2% (BldA) [Mass fraction] 96 % [facility] 07-23-2024 10:54-0400 Systolic blood pressure 116 mm[Hg] [facility] 06-23-2024 12:48-0400 Body height 170.2 cm Rai Badillo DO Work Phone: [facility] 06-23-2024 12:48-0400 Body mass index (BMI) [Ratio] 26.63 kg/m2 Rai Badillo DO Work Phone: [facility] 06-23-2024 12:48-0400 Body weight 77.11 kg Rai Badillo DO Work Phone: [facility] 06-05-2024 08:10-0400 Body temperature 97.9 [degF] Juan David GALLO [employer] 06-05-2024 08:10-0400 Diastolic blood pressure 74 mm[Hg] Juan David Murphy MD [facility] [employer] [facility] [employer] 06-05-2024 08:10-0400 Heart rate 78 /min Juan David GALLO [employer] 06-05-2024 08:10-0400 Respiratory rate 10 /min Juan David Murphy MD [facility] [employer] 06-05-2024 08:10-0400 SaO2% (BldA) [Mass fraction] 99 % Juan David Murphy MD [facility] 06-05-2024 08:10-0400 Systolic blood pressure 154 mm[Hg] Juan David Murphy MD [facility] 06-05-2024 04:43-0400 Body mass index (BMI) [Ratio] 28.73 kg/m2 [facility] 06-05-2024 04:43-0400 Body weight 78.3 kg Juan [facility] [employer] 05-27-2024 17:30-0400 Body temperature 35.6 Juan [facility] [employer] 05-26-2024 09:33-0400 Body height 165.1 cm Juan [facility] 04-26-2024 13:46-0400 Body height 167.64 cm DO Lolita Schwerer Work Phone: [facility] 04-26-2024 13:46-0400 Body mass index (BMI) [Ratio] 27.4 kg/m2 DO Lolita Schwerer Work Phone: [facility] 04-26-2024 13:46-0400 Body temperature 97.2 [degF] DO Lolita Schwerer Work Phone: [facility] 04-26-2024 13:46-0400 Body weight 77.11 kg DO Lolita Schwerer Work Phone: [facility] 04-26-2024 13:46-0400 Diastolic blood pressure 88 mm[Hg] DO Lolita Schwerer Work Phone: [facility] 04-26-2024 13:46-0400 Heart rate 74 /min DO Lolita Schwerer Work Phone: [facility] 04-26-2024 13:46-0400 Respiratory rate 18 /min DO Lolita Schwerer Work Phone: [facility] 04-26-2024 13:46-0400 SaO2% (BldA) [Mass fraction] 97 % DO Lolita Schwerer Work Phone: [facility] 04-26-2024 13:46-0400 Systolic blood pressure 204 mm[Hg] DO Lolita Schwerer Work Phone: [facility] 03-22-2024 10:54-0400 Body height 167.64 cm [facility] 03-22-2024 10:54-0400 Body mass index (BMI) [Ratio] 26.9 kg/m2 [facility] 03-22-2024 10:54-0400 Body weight 75.8 kg [facility] 03-22-2024 10:54-0400 Diastolic blood pressure 72 mm[Hg] [facility] 03-22-2024 10:54-0400 Heart rate 76 /min [facility] 03-22-2024 10:54-0400 Respiratory rate 18 /min [facility] 03-22-2024 10:54-0400 SaO2% (BldA) [Mass fraction] 95 % [facility] 03-22-2024 10:54-0400 Systolic blood pressure 138 mm[Hg] [facility] 12-26-2023 10:13-0400 Body weight 76.2 kg DO Lolita Schwerer Work Phone: [facility] 12-26-2023 10:13-0400 Diastolic blood pressure 86 mm[Hg] DO Lolita Schwerer Work Phone: [facility] 12-26-2023 10:13-0400 Heart rate 69 /min DO Lolita Schwerer Work Phone: [facility] 12-26-2023 10:13-0400 Systolic blood pressure 168 mm[Hg] DO Lolita Schwerer Work Phone: [facility] 12-25-2023 10:46-0400 Body height 167.64 cm DO Lolita Schwerer Work Phone: [facility] 12-25-2023 10:46-0400 Body mass index (BMI) [Ratio] 27.1 kg/m2 DO Lolita Schwerer Work Phone: [facility] 12-25-2023 10:46-0400 Body temperature 98 [degF] DO Lolita Schwerer Work Phone: [facility] 12-25-2023 10:46-0400 Body weight 76.37 kg DO Lolita Schwerer Work Phone: [facility] 12-25-2023 10:46-0400 Diastolic blood pressure 76 mm[Hg] DO Lolita Schwerer Work Phone: [facility] 12-25-2023 10:46-0400 Heart rate 70 /min DO Lolita Schwerer Work Phone: [facility] 12-25-2023 10:46-0400 SaO2% (BldA) [Mass fraction] 99 % DO Lolita Schwerer Work Phone: [facility] 12-25-2023 10:46-0400 Systolic blood pressure 132 mm[Hg] DO Lolita Schwerer Work Phone: [facility] 10-16-2023 09:03-0500 Body height 165.1 cm Gabriela Florian MD Work Phone: [facility] 10-16-2023 09:03-0500 Body mass index (BMI) [Ratio] 27.12 kg/m2 Gabriela Florian MD Work Phone: [facility] 10-16-2023 09:03-0500 Body weight 73.94 kg Gabriela Florian MD Work Phone: [facility] 10-16-2023 09:03-0500 Diastolic blood pressure 60 mm[Hg] Gabriela Florian MD Work Phone: [facility] 10-16-2023 09:03-0500 Heart rate 62 /min Gabriela Florian MD Work Phone: [facility] 10-16-2023 09:03-0500 Systolic blood pressure 102 mm[Hg] Gabriela Florian MD Work Phone: [facility] 09-25-2023 09:00-0500 Body height 167.64 cm [email or web address] Other [employer] Other 09-25-2023 09:00-0500 Body mass index (BMI) [Ratio] 26.95 kg/m2 [email or web address] Other [employer] Other 09-25-2023 09:00-0500 Body weight 75.75 kg [email or web address] Other [employer] Other 09-23-2023 10:45-0500 Body height 167.64 cm Lolita Schwerer Other [employer] Other 09-23-2023 10:45-0500 Body mass index (BMI) [Ratio] 26.97 kg/m2 Lolita Schwerer Other [employer] Other 09-23-2023 10:45-0500 Body temperature 98.1 [degF] Lolita Schwerer Other [employer] Other 09-23-2023 10:45-0500 Body weight 75.8 kg Lolita Schwerer Other [employer] Other 09-23-2023 10:45-0500 Diastolic blood pressure 88 mm[Hg] Lolita Schwerer Other [employer] Other 09-23-2023 10:45-0500 SaO2% (BldA) [Mass fraction] 99 % Lolita Schwerer Other [employer] Other 09-23-2023 10:45-0500 Systolic blood pressure 158 mm[Hg] Lolita Schwerer Other [employer] Other 09-18-2023 09:15-0500 Body height 167.64 cm Lyudmila White Other [facility] [employer] Other 09-11-2023 11:37-0500 Diastolic blood pressure 58 mm[Hg] DO Lolita Schwerer Work Phone: [facility] 09-11-2023 11:37-0500 Heart rate 74 /min DO Lolita Schwerer Work Phone: [facility] 09-11-2023 11:37-0500 Respiratory rate 18 /min DO Lolita Schwerer Work Phone: [facility] 09-11-2023 11:37-0500 SaO2% (BldA) [Mass fraction] 95 % DO Lolita Schwerer Work Phone: [facility] 09-11-2023 11:37-0500 Systolic blood pressure 128 mm[Hg] DO Lolita Schwerer Work Phone: [facility] 09-11-2023 08:00-0500 Body temperature 98.1 [degF] DO Lolita Schwerer Work Phone: [facility] 09-11-2023 06:00-0500 Body weight 74.5 kg DO Lolita Schwerer Work Phone: [facility] 09-09-2023 14:30-0500 Body height 167.64 cm DO Lolita Schwerer Work Phone: [facility] 08-21-2023 09:15-0500 Body height 167.64 cm Lyudmila White Other [employer] Other 08-21-2023 09:15-0500 Body mass index (BMI) [Ratio] 26.63 kg/m2 Lyudmila White Other [employer] Other 08-21-2023 09:15-0500 Body weight 74.84 kg Lyudmila White Other [employer] Other 07-31-2023 11:15-0400 Body height 167.64 cm Prieto Olexa Other [employer] Other 07-24-2023 11:00-0400 Body height 167.64 cm Prieto Olexa Other [employer] Other 07-22-2023 13:39-0400 Body height 165.1 cm DO Lolita Schwerer Work Phone: [facility] 07-22-2023 13:39-0400 Body temperature 97.7 [degF] DO Lolita Schwerer Work Phone: [facility] 07-22-2023 13:39-0400 Body weight 74.84 kg DO Lolita Schwerer Work Phone: [facility] 07-22-2023 13:39-0400 Diastolic blood pressure 79 mm[Hg] DO Lolita Schwerer Work Phone: [facility] 07-22-2023 13:39-0400 Heart rate 72 /min DO Lolita Schwerer Work Phone: [facility] 07-22-2023 13:39-0400 Respiratory rate 18 /min DO Lolita Schwerer Work Phone: [facility] 07-22-2023 13:39-0400 SaO2% (BldA) [Mass fraction] 96 % DO Lolita Schwerer Work Phone: [facility] 07-22-2023 13:39-0400 Systolic blood pressure 155 mm[Hg] DO Lolita Schwerer Work Phone: [facility] 06-18-2023 09:30-0400 Body height 167.64 cm [email or web address] Other [employer] Other 06-18-2023 09:30-0400 Body mass index (BMI) [Ratio] 26.63 kg/m2 [email or web address] Other [employer] Other 06-18-2023 09:30-0400 Body weight 74.84 kg [email or web address] Other [employer] Other 06-02-2023 13:45-0400 Body height 167.64 cm Lolita Mendeserer Other [employer] Other 06-02-2023 13:45-0400 Body mass index (BMI) [Ratio] 26.47 kg/m2 Lolita Schwerer Other [employer] Other 06-02-2023 13:45-0400 Body weight 74.39 kg Lolita Schwerer Other [employer] Other 06-02-2023 13:45-0400 Diastolic blood pressure 72 mm[Hg] Lolita Schwerer Other [employer] Other 06-02-2023 13:45-0400 Respiratory rate 18 /min Lolita Schwerer Other [employer] Other 06-02-2023 13:45-0400 SaO2% (BldA) [Mass fraction] 96 % Lolitatoy Adorno Other [employer] Other 06-02-2023 13:45-0400 Systolic blood pressure 142 mm[Hg] Lolita Adorno Other [employer] Other 05-06-2023 10:40-0400 Body height 167.64 cm [email or web address] Other [employer] Other 05-06-2023 10:40-0400 Body mass index (BMI) [Ratio] 26.63 kg/m2 [email or web address] Other [employer] Other 05-06-2023 10:40-0400 Body weight 74.84 kg [email or web address] Other [employer] Other 05-06-2023 10:40-0400 Diastolic blood pressure 76 mm[Hg] [email or web address] Other [employer] Other 05-06-2023 10:40-0400 Systolic blood pressure 138 mm[Hg] [email or web address] Other [employer] Other 04-22-2023 09:28-0400 Body height 167.64 cm Lolita Travis Schwerer Work Phone: [facility] [employer] [facility] DO Work Phone: 04-22-2023 09:28-0400 Body mass index (BMI) [Ratio] 26.63 kg/m2 Lolita E Schwerer Work Phone: [facility] [employer] [facility] DO Work Phone: 04-22-2023 09:28-0400 Body surface area Derived from formula 1.84 m2 Lolita E Schwerer Work Phone: [facility] DO Work Phone: 04-22-2023 09:28-0400 Body weight 74.84 kg Lolita E Schwerer Work Phone: [facility] DO Work Phone: 04-22-2023 09:28-0400 Diastolic blood pressure 68 mm[Hg] Lolita Thaddeus Schwerer Work Phone: [facility] DO Work Phone: 04-22-2023 09:28-0400 Heart rate 76 /min Lolita E Schwerer Work Phone: [facility] DO Work Phone: 04-22-2023 09:28-0400 Systolic blood pressure 124 mm[Hg] Lolita E Schwerer Work Phone: [facility] DO Work Phone: 12-25-2022 10:30-0400 Body height 167.64 cm Beth Lowe Other [employer] [facility] [employer] Other 12-25-2022 10:30-0400 Body mass index (BMI) [Ratio] 26.47 kg/m2 Beth Lowe Other [employer] [facility] [employer] Other 12-25-2022 10:30-0400 Body weight 74.39 kg Beth Lowe Other [employer] Other 12-25-2022 10:30-0400 Diastolic blood pressure 72 mm[Hg] Beth Lowe Other [employer] Other 12-25-2022 10:30-0400 Systolic blood pressure 126 mm[Hg] Beth Lowe Other [employer] Other 11-25-2022 14:30-0500 Body height 167.64 cm Lolita Schwerer Other [employer] Other 11-25-2022 14:30-0500 Body mass index (BMI) [Ratio] 26.56 kg/m2 Lolita Schwerer Other [employer] Other 11-25-2022 14:30-0500 Body weight 74.66 kg Lolita Schwerer Other [employer] Other 11-25-2022 14:30-0500 Diastolic blood pressure 80 mm[Hg] Lolita Schwerer Other [employer] Other 11-25-2022 14:30-0500 Respiratory rate 18 /min Lolita Schwerer Other [employer] Other 11-25-2022 14:30-0500 SaO2% (BldA) [Mass fraction] 98 % Lolita Schwerer Other [employer] Other 11-25-2022 14:30-0500 Systolic blood pressure 138 mm[Hg] Lolita Schwerer Other [employer] Other 10-17-2022 10:00-0500 Body height 167.64 cm Ebth Lowe Other [employer] Other 10-17-2022 10:00-0500 Body mass index (BMI) [Ratio] 27.11 kg/m2 [employer] Other [employer] Other 10-17-2022 10:00-0500 Body weight 76.2 kg Beth Lowe Other [facility] [employer] Other 10-16-2022 10:17-0500 Body height 167.64 cm Lolita E Schwerer Work Phone: [facility] 250 DO Work Phone: 10-16-2022 10:17-0500 Body mass index (BMI) [Ratio] 27.44 kg/m2 Lolita E Schwerer Work Phone: [facility] DO Work Phone: 10-16-2022 10:17-0500 Body surface area Derived from formula 1.87 m2 Lolita E Schwerer Work Phone: [facility] DO Work Phone: 10-16-2022 10:17-0500 Body weight 77.11 kg Lolita E Schwerer Work Phone: [facility] DO Work Phone: 10-16-2022 10:17-0500 Diastolic blood pressure 64 mm[Hg] Lolita E Schwerer Work Phone: [facility] DO Work Phone: 10-16-2022 10:17-0500 Heart rate 88 /min Lolita E Schwerer Work Phone: [facility] DO Work Phone: 10-16-2022 10:17-0500 Systolic blood pressure 122 mm[Hg] Lolita E Schwerer Work Phone: [facility] DO Work Phone: 10-06-2022 11:15-0500 Body temperature 98.1 [degF] DO Lolita Schwerer Work Phone: [facility] 10-06-2022 11:15-0500 Diastolic blood pressure 88 mm[Hg] DO Lolita Schwerer Work Phone: [facility] 10-06-2022 11:15-0500 Heart rate 80 /min DO Lolita Schwerer Work Phone: [facility] 10-06-2022 11:15-0500 Respiratory rate 18 /min DO Lolita Schwerer Work Phone: [facility] 10-06-2022 11:15-0500 SaO2% (BldA) [Mass fraction] 98 % DO Lolita Schwerer Work Phone: [facility] 10-06-2022 11:15-0500 Systolic blood pressure 155 mm[Hg] DO Lolita Schwerer Work Phone: [facility] 10-06-2022 03:30-0500 Body weight 76 kg DO Lolita Schwerer Work Phone: [facility] 10-04-2022 10:45-0500 Body height 168.91 cm DO Lolita Schwerer Work Phone: [facility] 10-02-2022 10:14-0500 Inhaled oxygen flow rate 8 L/min DO Lolita Schwerer Work Phone: [facility] 10-02-2022 08:15-0500 Body mass index (BMI) [Ratio] 26.7 kg/m2 DO Lolita Schwerer Work Phone: [facility] 08-19-2022 16:00-0500 Body height 167.64 cm Lolita Schwerer Other [employer] [facility] [employer] Other 08-19-2022 16:00-0500 Body mass index (BMI) [Ratio] 27.19 kg/m2 Lolita Schwerer Other [employer] Other 08-19-2022 16:00-0500 Body weight 76.43 kg Lolita Schwerer Other [employer] Other 08-19-2022 16:00-0500 Diastolic blood pressure 88 mm[Hg] Lolita Schwerer Other [employer] Other 08-19-2022 16:00-0500 Respiratory rate 18 /min Lolita Schwerer Other [employer] Other 08-19-2022 16:00-0500 SaO2% (BldA) [Mass fraction] 98 % Lolita Schwerer Other [employer] Other 08-19-2022 16:00-0500 Systolic blood pressure 122 mm[Hg] Lolita Schwerer Other [employer] Other 07-14-2022 09:32-0400 Diastolic blood pressure 85 mm[Hg] DO Lolita Schwerer Work Phone: [facility] 07-14-2022 09:32-0400 Heart rate 78 /min DO Lolita Schwerer Work Phone: [facility] 07-14-2022 09:32-0400 Respiratory rate 16 /min DO Lolita Schwerer Work Phone: [facility] 07-14-2022 09:32-0400 SaO2% (BldA) [Mass fraction] 98 % DO Lolita Schwerer Work Phone: [facility] 07-14-2022 09:32-0400 Systolic blood pressure 158 mm[Hg] DO Lolita Schwerer Work Phone: [facility] 07-14-2022 09:03-0400 Body height 165.1 cm DO Lolita Schwerer Work Phone: [facility] 07-14-2022 09:03-0400 Body temperature 97 [degF] DO Lolita Schwerer Work Phone: [facility] 07-14-2022 09:03-0400 Body weight 79.37 kg DO Lolita Schwerer Work Phone: [facility] 06-20-2022 09:20-0400 Body height 167.64 cm Clemente Miller Other [employer] Other 06-20-2022 09:20-0400 Body mass index (BMI) [Ratio] 26.47 kg/m2 Clemente Miller Other [employer] Other 06-20-2022 09:20-0400 Body weight 74.39 kg Clemente Miller Other [employer] Other 05-14-2022 15:00-0400 Body height 167.64 cm Lolita Mendeserer Other [employer] Other 05-14-2022 15:00-0400 Body mass index (BMI) [Ratio] 26.6 kg/m2 Lolita Schwerer Other [employer] Other 05-14-2022 15:00-0400 Body weight 74.75 kg Lolita Schwerer Other [employer] Other 05-14-2022 15:00-0400 Diastolic blood pressure 78 mm[Hg] Lolita Schwerer Other [employer] Other 05-14-2022 15:00-0400 Respiratory rate 18 /min Lolita Adorno Other [employer] Other 05-14-2022 15:00-0400 SaO2% (BldA) [Mass fraction] 98 % Lolita Mendeserer Other [employer] Other 05-14-2022 15:00-0400 Systolic blood pressure 118 mm[Hg] Lolita Mendeserer Other [employer] Other 03-28-2022 10:52-0400 Body height 167.64 cm Lolita Travis Schwerer Work Phone: [facility] [employer] 250 DO Work Phone: 03-28-2022 10:52-0400 Body mass index (BMI) [Ratio] 26.63 kg/m2 Lolita Travis Schwerer Work Phone: [facility] [employer] 250 DO Work Phone: 03-28-2022 10:52-0400 Body surface area Derived from formula 1.84 m2 Lolita Travis Schwerer Work Phone: [facility] [employer] 250 DO Work Phone: 03-28-2022 10:52-0400 Body weight 74.84 kg Lolita Travis Schwerer Work Phone: [facility] 250 DO Work Phone: 03-28-2022 10:52-0400 Diastolic blood pressure 70 mm[Hg] Lolita E Schwerer Work Phone: [facility] [employer] 250 DO Work Phone: 03-28-2022 10:52-0400 Heart rate 78 /min Lolita Travis Schwerer Work Phone: [facility] [employer] 250 DO Work Phone: 03-28-2022 10:52-0400 Systolic blood pressure 132 mm[Hg] Lolita Travis Schwerer Work Phone: [facility] [employer] 250 DO Work Phone: 02-11-2022 15:15-0400 Body height 167.64 cm Lolita Schwerer Other [employer] Other 02-11-2022 15:15-0400 Body mass index (BMI) [Ratio] 26.74 kg/m2 Lolita Schwerer Other [employer] Other 02-11-2022 15:15-0400 Body weight 75.16 kg Lolita Schwerer Other [employer] Other 02-11-2022 15:15-0400 Diastolic blood pressure 72 mm[Hg] Lolita Schwerer Other [employer] Other 02-11-2022 15:15-0400 Respiratory rate 18 /min Lolita Schwerer Other [employer] Other 02-11-2022 15:15-0400 SaO2% (BldA) [Mass fraction] 99 % Lolita Schwerer Other [employer] Other 02-11-2022 15:15-0400 Systolic blood pressure 118 mm[Hg] Lolita Schwerer Other [employer] Other 11-13-2021 10:00-0500 Body height 167.64 cm Lolita Schwerer Other [employer] Other 11-13-2021 10:00-0500 Body mass index (BMI) [Ratio] 27.19 kg/m2 Lolita Schwerer Other [employer] Other 11-13-2021 10:00-0500 Body weight 76.43 kg Lolita Schwerer Other [employer] Other 11-13-2021 10:00-0500 Diastolic blood pressure 78 mm[Hg] Lolita Schwerer Other [employer] Other 11-13-2021 10:00-0500 Respiratory rate 18 /min Lolita Schwerer Other [employer] Other 11-13-2021 10:00-0500 SaO2% (BldA) [Mass fraction] 98 % Lolita Schwerer Other [employer] Other 11-13-2021 10:00-0500 Systolic blood pressure 130 mm[Hg] Lolita Schwerer Other [employer] Other 10-31-2021 16:30-0500 Body height 167.64 cm Yohannes Granda Other [employer] Other 10-31-2021 16:30-0500 Body mass index (BMI) [Ratio] 28.08 kg/m2 Yohannes Disandy Other [employer] Other 10-31-2021 16:30-0500 Body temperature 98.2 [degF] Yohannes Granda Other [employer] Other 10-31-2021 16:30-0500 Body weight 78.93 kg Yohannes Granda Other [facility] [employer] Other 10-31-2021 16:30-0500 Diastolic blood pressure 84 mm[Hg] Yohannes Granda Other [facility] [employer] Other 10-31-2021 16:30-0500 Respiratory rate 18 /min Yohannes Granda Other [facility] [employer] Other 10-31-2021 16:30-0500 SaO2% (BldA) [Mass fraction] 98 % Yohannes Granda Other [facility] [employer] Other 10-31-2021 16:30-0500 Systolic blood pressure 144 mm[Hg] Yohannes Granda Other [facility] [employer] Other 09-19-2021 10:07-0500 Diastolic blood pressure 60 mm[Hg] Lolita E Schwerer Work Phone: [facility] [employer] 250 DO Work Phone: 09-19-2021 10:07-0500 Systolic blood pressure 132 mm[Hg] Lolita E Schwerer Work Phone: [facility] [employer] 250 DO Work Phone: 09-19-2021 09:51-0500 Diastolic blood pressure 80 mm[Hg] Lolita E Schwerer Work Phone: [facility] [employer] 250 DO Work Phone: 09-19-2021 09:51-0500 Systolic blood pressure 150 mm[Hg] Lolita E Schwerer Work Phone: [facility] [employer] 250 DO Work Phone: 09-19-2021 09:47-0500 Body height 167.64 cm Lolita E Schwerer Work Phone: [facility] 250 DO Work Phone: 09-19-2021 09:47-0500 Body mass index (BMI) [Ratio] 27.6 kg/m2 Lolita Travis Schwerer Work Phone: [facility] 250 DO Work Phone: 09-19-2021 09:47-0500 Body surface area Derived from formula 1.87 m2 Lolita Travis Schwerer Work Phone: [facility] 250 DO Work Phone: 09-19-2021 09:47-0500 Body weight 77.57 kg Lolita Thaddeus Schwerer Work Phone: [facility] 250 DO Work Phone: 09-19-2021 09:47-0500 Diastolic blood pressure 92 mm[Hg] Lolita Travis Schwerer Work Phone: [facility] 250 DO Work Phone: 09-19-2021 09:47-0500 Heart rate 73 /min Lolita Travis Schwerer Work Phone: [facility] 250 DO Work Phone: 09-19-2021 09:47-0500 Systolic blood pressure 162 mm[Hg] Lolita E Schwerer Work Phone: [facility] 250 DO Work Phone: 08-09-2021 10:00-0400 Body height 167.64 cm Lolita Mendeserer Other [employer] Other 08-09-2021 10:00-0400 Body mass index (BMI) [Ratio] 27.44 kg/m2 Lolita Mendeserer Other [employer] Other 08-09-2021 10:00-0400 Body weight 77.11 kg Lolita Schwerer Other [employer] Other 08-09-2021 10:00-0400 Diastolic blood pressure 94 mm[Hg] Lolita Schwerer Other [employer] Other 08-09-2021 10:00-0400 Respiratory rate 18 /min Lolita Schwerer Other [employer] Other 08-09-2021 10:00-0400 SaO2% (BldA) [Mass fraction] 96 % Lolita Schwerer Other [employer] Other 08-09-2021 10:00-0400 Systolic blood pressure 142 mm[Hg] Lolita Schwerer Other [employer] Other Encounters Encounter Date Encounter Type Care Provider Facility Start: 10-27-2024 End: 10-27-2024 ambulatory Lolita E Schwerer DO Work Phone: [facility] Work Phone: Start: 10-27-2024 End: 10-27-2024 Patient encounter procedure Lolita Schwerer DO Work Phone: [facility] Work Phone: Start: 10-25-2024 End: 10-25-2024 Patient encounter procedure Lolita Schwerer DO Work Phone: [facility] [place] Work Phone: Start: 10-25-2024 End: 10-25-2024 ambulatory Lolita E Schwerer DO Work Phone: [facility] Work Phone: Start: 10-20-2024 End: 10-20-2024 Patient encounter procedure Lolita Schwerer DO Work Phone: [facility] [place] Work Phone: Start: 10-20-2024 End: 10-20-2024 ambulatory Lolita E Schwerer DO Work Phone: [facility] Work Phone: Start: 10-12-2024 End: 10-12-2024 ambulatory Lolita E Schwerer DO Work Phone: [facility] Work Phone: Start: 10-12-2024 End: 10-12-2024 Patient encounter procedure Lolita Schwerer DO Work Phone: [facility] Work Phone: Start: 10-07-2024 Non-patient / Non-visit Kaitli n Schwerer DO Work Phone: [facility] Work Phone: Start: 10-06-2024 End: 10-08-2024 Evaluation and management of inpatient Lolita Schwerer DO Work Phone: [facility] [place] [facility] Work Phone: Start: 10-06-2024 End: 10-08-2024 ambulatory Matheus Enriqueta Facility:[facility] Start: 10-05-2024 Non-patient / Non-visit Kaitli n Schwerer DO Work Phone: [facility] Physician [facility] Work Phone: Start: 10-04-2024 End: 10-06-2024 ambulatory Matheus Enriqueta Facility:[facility] Start: 10-04-2024 End: 10-06-2024 Evaluation and management of inpatient Lolita Schwerer DO Work Phone: [facility] [place] [facility] Work Phone: Start: 10-04-2024 End: 10-04-2024 Patient encounter procedure Lolita Mendeserer DO Work Phone: [facility] Start: 10-04-2024 End: 10-04-2024 ambulatory Lolita E Schwerer Facility:[facility] Start: 09-15-2024 End: 09-15-2024 ambulatory EDIN [facility] Start: 08-30-2024 End: 08-30-2024 Patient encounter procedure Lolita Mendeserer DO Work Phone: [facility] Physician [facility] Work Phone: Start: 08-23-2024 End: 08-23-2024 Patient encounter procedure Lolita Mendeserer DO Work Phone: [facility] [place] Work Phone: Start: 08-23-2024 End: 08-23-2024 ambulatory Lolita Mendeserer DO Work Phone: [facility] Work Phone: Start: 07-23-2024 End: 07-23-2024 ambulatory [facility] Work Phone: Start: 07-23-2024 End: 07-23-2024 Patient encounter procedure [facility] Physician [facility] Work Phone: Start: 07-21-2024 End: 07-21-2024 ambulatory KRISTIE Alex [facility] Start: 06-23-2024 End: 06-23-2024 Bamboo flowsheet Rai Badillo DO [facility] Start: 06-23-2024 End: 06-23-2024 Bamboo flowsheet Rai Badillo DO Work Phone: [facility] Start: 06-23-2024 End: 06-23-2024 Patient encounter procedure Rai Badillo DO Work Phone: [facility] Start: 06-23-2024 End: 06-23-2024 Office outpatient visit 25 minutes Rai Badillo DO Work Phone: [facility] Comment on above: Multiple thyroid nod ules (CMS/HCC) (Primary Dx) Start: 06-23-2024 End: 06-23-2024 ambulatory RAI BADILLO Not Available Start: 05-23-2024 End: 06-05-2024 Evaluation and management of inpatient [facility] Start: 05-22-2024 Non-patient / Non-visit [facility] Physician [facility] Work Phone: Start: 05-21-2024 End: 05-24-2024 Clinisync Result Encounter [place] BALTAZAR Work Phone: [facility] External Department Unsolicited Start: 05-21-2024 End: 05-24-2024 Clinisync Result Encounter [place] BALTAZAR Work Phone: [facility] External [facility] Unsolicited Start: 04-26-2024 End: 04-26-2024 ambulatory DO Lolita E Schwerer Work Phone: [facility] Work Phone: Start: 04-26-2024 End: 04-26-2024 Patient encounter procedure DO Lolita Schwerer Work Phone: [facility] Physician [facility] Nephrology Work Phone: Start: 03-22-2024 Encounter for genera l adult medical examination without abnormal findings Lolita E Schwerer The [facility] Physician [facility] Start: 03-22-2024 End: 03-22-2024 ambulatory DO Lolita E Schwerer Work Phone: [facility] Work Phone: Start: 03-22-2024 End: 03-22-2024 Patient encounter procedure [facility] Physician [facility] [place] Work Phone: Start: 12-26-2023 End: 12-26-2023 ambulatory DO Lolita E Schwerer Work Phone: [facility] Work Phone: Start: 12-26-2023 End: 12-26-2023 Patient encounter procedure DO Lolita Schwerer Work Phone: [facility] Work Phone: Start: 12-25-2023 End: 12-25-2023 ambulatory DO Lolita E Schwerer Work Phone: [facility] Work Phone: Start: 12-25-2023 End: 12-25-2023 Patient encounter procedure DO Lolita Schwerer Work Phone: [facility] [place] Work Phone: Start: 12-01-2023 Non-patient / Non-visit DO Med tlin Schwerer Work Phone: [facility] [employer] Work Phone: Start: 11-17-2023 End: 11-17-2023 ambulatory Lolita Schwerer Other [facility] [employer] Other Start: 11-17-2023 Telephone encounter Lolita Schwerer [facility] [place] Start: 10-30-2023 End: 10-30-2023 ambulatory Nette Adina Other [facility] [employer] Other Start: 10-30-2023 Office outpatient vi sit 25 minutes Nette Adina [facility] Start: 10-17-2023 End: 10-17-2023 ambulatory DO Lolita E Schwerer Work Phone: [facility] Work Phone: Start: 10-17-2023 End: 10-17-2023 Patient encounter procedure DO Lolita Schwerer Work Phone: [facility] [place] Work Phone: Start: 10-16-2023 End: 10-16-2023 ambulatory [facility] Start: 10-16-2023 End: 10-16-2023 Office outpatient visit 25 minutes Gabriela Florian MD Work Phone: [facility] Comment on above: 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of n ative coronary artery of [place] heart without angina pectoris; Essential hypertension; History of NM (myocardial infarction); Mixed hyperlipidemia; S/P PTCA (percutaneous transluminal coronary angioplasty); Stage 3a chronic kidney disease (CMS/HCC); Current smoker on some days; Type 2 diabetes mellitus without complication, with long-term current use of insulin ([facility]); Overweight with body mass index (BMI) of 27 to 27.9 in adult; Atherosclerotic heart disease of [place] coronary artery without angina pectoris Start: 09-25-2023 End: 09-25-2023 ambulatory Beth Lowe Other [employer] Other Start: 09-25-2023 Office outpatient vi sit 15 minutes Beth Lowe [facility] Neurosurgery Start: 09-23-2023 Office outpatient vi sit 25 minutes Lolita Adorno [facility] [place] Start: 09-23-2023 End: 09-23-2023 ambulatory DO Lolita E Schwerer Work Phone: [employer] Other Start: 09-23-2023 End: 09-23-2023 Patient encounter procedure DO Lolita Schwerer Work Phone: [facility] Start: 09-18-2023 Postop follow up vis it related to original px Lyudmila White [facility] [place] [facility] Start: 09-18-2023 End: 09-18-2023 ambulatory DO Lolita E Schwerer Work Phone: [facility] Work Phone: Start: 09-18-2023 End: 09-18-2023 Patient encounter procedure DO Lolita Schwerer Work Phone: [facility] Start: 09-12-2023 End: 09-12-2023 ambulatory Lolita Schwerer Other [facility] [place] Other Start: 09-12-2023 Telephone encounter Lolita Schwerer [facility] Start: 09-08-2023 End: 09-11-2023 Evaluation and management of inpatient DO Lolita Schwerer Work Phone: [facility] [place] [facility] Work Phone: Start: 08-21-2023 Office outpatient vi sit 15 minutes Lyudmila White [facility]opedics Start: 08-21-2023 End: 08-21-2023 ambulatory DO Lolita E Schwerer Work Phone: [facility] Work Phone: Start: 08-21-2023 End: 08-21-2023 Patient encounter procedure DO Lolita Schwerer Work Phone: [facility] Start: 07-31-2023 Postop follow up vis it related to original px Prieto Gal [facility] Orthopedics Start: 07-31-2023 End: 07-31-2023 ambulatory DO Lolita E Schwerer Work Phone: [facility] Work Phone: Start: 07-31-2023 End: 07-31-2023 Patient encounter procedure DO Lolita Schwerer Work Phone: [facility] Start: 07-24-2023 End: 07-24-2023 ambulatory Prieto Snato Other [employer] Other Start: 07-24-2023 FQHC visit new patient Prieto Santo [facility] Start: 07-23-2023 End: 07-23-2023 ambulatory Lolita Schwerer Other [employer] Other Start: 07-23-2023 Telephone encounter Lolita Schwerer [facility] [place] Start: 07-22-2023 End: 07-22-2023 Emergency department patient visit DO Lolita Schwerer Work Phone: [facility]-Emergency Room Work Phone: Start: 06-18-2023 End: 06-18-2023 ambulatory Beth Lowe Other [employer] Other Start: 06-18-2023 Office outpatient vi sit 15 minutes Beth Lowe [facility] Neurosurgery Start: 06-02-2023 End: 06-02-2023 ambulatory Lolita Schwerer Other [employer] Other Start: 06-02-2023 Office outpatient vi sit 15 minutes Lolita Schwerer [facility] [place] Start: 05-16-2023 End: 05-16-2023 ambulatory DO Lolita E Schwerer Work Phone: [facility] Work Phone: Start: 05-16-2023 End: 05-16-2023 Patient encounter procedure DO Lolita Schwerer Work Phone: [facility] [place] Work Phone: Start: 05-06-2023 End: 05-06-2023 ambulatory Beth Lowe Other [employer] Other Start: 05-06-2023 Office outpatient vi sit 15 minutes Beth Lowe [facility] Neurosurgery Start: 05-06-2023 End: 05-06-2023 Patient encounter procedure DO Lolita Schwerer Work Phone: [facility] [place] Work Phone: Start: 04-30-2023 End: 04-30-2023 ambulatory DO Lolita E Schwerer Work Phone: [facility] Work Phone: Start: 04-30-2023 End: 04-30-2023 Patient encounter procedure DO Lolita Schwerer Work Phone: [facility] [place] Work Phone: Start: 04-22-2023 Office outpatient vi sit 25 minutes Lolita E Schwerer Work Phone: [facility] 250 DO Work Phone: Start: 04-22-[address] Gabriela Murillo [facility] Facility: Start: 04-15-2023 Patient encounter procedure Lolita E Schwerer Work Phone: [facility] 600 DO Work Phone: Start: 04-15-2023 Chart Update Lolita E Schw erer Work Phone: [facility] [address] DO Work Phone: Start: 04-15-2023 End: 04-15-2023 ambulatory DO Lolita E Schwerer Work Phone: [facility] Work Phone: Start: 04-15-2023 End: 04-15-2023 Patient encounter procedure DO Lolita Schwerer Work Phone: [facility] [place] Work Phone: Start: 02-17-2023 Rx Renewal Lolita E Schw erer Work Phone: [facility] [facility] DO Work Phone: Start: 01-01-2023 End: 01-01-2023 ambulatory Lolita Schwerer Other [employer] Other Start: 01-01-2023 Telephone encounter Lolita Schwerer [facility] Start: 12-25-2022 End: 12-25-2022 ambulatory Beth Lowe Other [employer] Other Start: 12-25-2022 Postop follow up vis it related to original px Beth Lowe [facility] Neurosurgery Start: 11-25-2022 End: 11-25-2022 ambulatory Lolita Schwerer Other [employer] Other Start: 11-25-2022 Office outpatient vi sit 25 minutes Lolita Schwerer [facility] Start: 10-17-2022 End: 10-17-2022 ambulatory Beth Lowe Other [employer] Other Start: 10-17-2022 Postop follow up vis it related to original px Beth Lowe [facility] Neurosurgery Start: 10-16-2022 Office outpatient vi sit 25 minutes Lolita E Schwerer Work Phone: [facility] [facility] DO Work Phone: Start: 10-16-[address] Gabriela Florian Facility: Start: 10-02-2022 End: 10-06-2022 Admission to same day surgery center DO Lolita Schwerer Work Phone: [facility] [place] Start: 10-02-2022 End: 10-06-2022 ambulatory DO Lolita E Schwerer Work Phone: [facility] Work Phone: Start: 10-01-2022 End: 10-01-2022 ambulatory DO Lolita E Schwerer Work Phone: [facility] Work Phone: Start: 10-01-2022 End: 10-01-2022 Patient encounter procedure DO Lolita Schwerer Work Phone: [facility] Work Phone: Start: 09-18-2022 End: 09-18-2022 ambulatory DO Lolita E Schwerer Work Phone: [facility] Work Phone: Start: 09-18-2022 End: 09-18-2022 Patient encounter procedure DO Lolita Schwerer Work Phone: [facility]-Pre-Surgical Testing Start: 08-19-2022 End: 08-19-2022 ambulatory Lolita Schwerer Other [facility] [place] Other Start: 08-19-2022 Office outpatient vi sit 25 minutes Lolita Schwerer [facility] Start: 08-15-2022 End: 08-15-2022 ambulatory Clemente Miller Other [facility] Other Start: 08-15-2022 Office outpatient vi sit 40 minutes Clemente Miller [facility] Neurosurgery Start: 07-15-2022 End: 07-15-2022 ambulatory Lolita Schwerer Other [employer] Other Start: 07-15-2022 Telephone encounter Lolita Schwerer [facility] Start: 07-14-2022 End: 07-14-2022 Emergency department patient visit DO Lolita Schwerer Work Phone: [facility]Emergency [facility] Start: 07-08-2022 End: 07-08-2022 ambulatory DO Lolita E Schwerer Work Phone: [facility] Work Phone: Start: 07-08-2022 End: 07-08-2022 Discharged Recurring DO Lolita Schwerer Work Phone: [facility] [address] Start: 07-08-2022 Registered Recurring DO Kaitli n Schwerer Work Phone: [facility]-Physical Therapy [address] Start: 06-21-2022 End: 06-21-2022 ambulatory Clemente Miller Other [employer] Other Start: 06-21-2022 Telephone encounter Clemente Miller [facility] [employer] Start: 06-20-2022 End: 06-20-2022 ambulatory Clemente Miller Other [employer] Other Start: 06-20-2022 Office outpatient ne w 45 minutes Clemente Miller [facility] Neurosurgery Start: 06-03-2022 End: 06-03-2022 ambulatory Lolita Schwerer Other [employer] Other Start: 06-03-2022 Telephone encounter Lolita Schwerer [facility] Start: 05-29-2022 End: 05-29-2022 Patient encounter procedure DO Lolita Schwerer Work Phone: [facility] [address] Start: 05-15-2022 End: 05-15-2022 Patient encounter procedure DO Lolita Schwerer Work Phone: [facility] Start: 05-14-2022 End: 05-14-2022 ambulatory Lolita Schwerer Other [employer] Other Start: 05-14-2022 Office outpatient vi sit 25 minutes Lolita Schwerer [facility] [place] Start: 04-25-2022 End: 04-25-2022 ambulatory Lolita Schwerer Other [employer] Other Start: 04-25-2022 Telephone encounter Lolita Schwerer [facility] [place] Start: 03-28-2022 Office outpatient vi sit 25 minutes Lolita E Schwerer Work Phone: [facility] [facility] DO Work Phone: Start: 02-11-2022 End: 02-11-2022 ambulatory Lolita Schwerer Other [employer] Other Start: 02-11-2022 Office outpatient vi sit 25 minutes Lolita Schwerer [facility] [place] Start: 11-26-2021 End: 11-26-2021 ambulatory Lolita Schwerer Other [employer] Other Start: 11-26-2021 Telephone encounter Lolita Schwerer [facility] [place] Start: 11-13-2021 End: 11-13-2021 ambulatory Lolita Schwerer Other [employer] Other Start: 11-13-2021 Office outpatient vi sit 25 minutes Lolita Schwerer [facility] [place] Start: 11-13-2021 Telephone encounter Lolita Schwerer [facility] [place] Start: 11-02-2021 End: 11-02-2021 ambulatory Lolita Schwerer Other [employer] Other Start: 11-02-2021 Telephone encounter Lolita Schwerer [facility] [place] Start: 11-01-2021 End: 11-01-2021 ambulatory Lolita Schwerer Other [employer] Other Start: 11-01-2021 Telephone encounter Lolita Schwerer [facility] [place] Start: 10-31-2021 End: 10-31-2021 ambulatory Yohannes Granda Other [employer] Other Start: 10-31-2021 Patient encounter procedure Yohannes Granda [facility] Gastroenterology Start: 10-31-2021 Telephone encounter Lolita Schwerer [facility] [place] Start: 09-19-2021 Office outpatient vi sit 25 minutes Lolita E Schwerer Work Phone: [facility] [facility] DO Work Phone: Start: 09-10-2021 Rx Renewal August Fontanez her Work Phone: [facility] [address] [place] Work Phone: Start: 08-28-2021 End: 08-28-2021 ambulatory Yohannes Granda Other [employer] Other Start: 08-28-2021 Telephone encounter Yohannes Granda [employer] Start: 08-09-2021 End: 08-09-2021 ambulatory Lolita Schwerer Other [employer] Other Start: 08-09-2021 Office outpatient vi sit 25 minutes Lolita Schwerer [facility] [place] Start: 08-09-2021 Telephone encounter Lolita Schwerer [facility] Start: 09-18-2017 Ambulatory BHARATHI REYNAGAVictor Manuel Facility :[id number] Procedures Date Procedure Procedure Detail Performing Clinician Start: 10-06-2024 Urine culture Lolita Schwerer DO Work Phone: Start: 10-04-2024 Urine culture Lolita Schwerer DO Work Phone: Start: 08-23-2024 Urine culture Lolita Schwerer DO Work Phone: Start: 06-05-2024 Glucose blood reagent strip Chi pederson MD Work Phone: Start: 06-04-2024 Glucose blood reagent strip Chi pederson MD Work Phone: Start: 06-04-2024 Glucose blood reagent strip Chi pederson MD Work Phone: Start: 06-04-2024 Glucose blood reagent strip Chi pederson MD Work Phone: Start: 06-04-2024 Glucose blood reagent strip Chi pederson MD Work Phone: Start: 06-03-2024 Glucose blood reagent strip Chi pederson MD Work Phone: Start: 06-03-2024 Glucose blood reagent strip Chi pederson MD Work Phone: Start: 06-03-2024 Glucose blood reagent strip Chi pederson MD Work Phone: Start: 06-03-2024 Glucose blood reagent strip Chi pederson MD Work Phone: Start: 06-02-2024 Glucose blood reagent strip Chi pederson MD Work Phone: Start: 06-02-2024 Glucose blood reagent strip Chi pederson MD Work Phone: Start: 06-02-2024 Glucose blood reagent strip Chi pederson MD Work Phone: Start: 06-02-2024 End: 06-02-2024 Basic metabolic panel calcium total Solomon Lupillo DO Work Phone: Start: 06-01-2024 Glucose blood reagent strip Chi pederson MD Work Phone: Start: 06-01-2024 Glucose blood reagent strip Chi pederson MD Work Phone: Start: 06-01-2024 Glucose blood reagent strip Chi pederson MD Work Phone: Start: 06-01-2024 Glucose blood reagent strip Chi pederson MD Work Phone: Start: 06-01-2024 Basic metabolic panel calcium total Solomon Lupillo DO Work Phone: Start: 05-31-2024 Glucose blood reagent strip Chi pederson MD Work Phone: Start: 05-31-2024 Glucose blood reagent strip Chi pederson MD Work Phone: Start: 05-31-2024 Glucose blood reagent strip Chi pederson MD Work Phone: Start: 05-31-2024 Glucose blood reagent strip hCi pederson MD Work Phone: Start: 05-31-2024 Basic metabolic panel calcium total Solomon Lupillo DO Work Phone: Start: 05-30-2024 Glucose blood reagent strip Chi pederson MD Work Phone: Start: 05-30-2024 Glucose blood reagent strip Chi pederson MD Work Phone: Start: 05-30-2024 Glucose blood reagent strip Chi pederson MD Work Phone: Start: 05-30-2024 Glucose blood reagent strip Chi pederson MD Work Phone: Start: 05-30-2024 Glucose blood reagent strip Chi pederson MD Work Phone: Start: 05-30-2024 Basic metabolic panel calcium total Solomon Lupillo DO Work Phone: Start: 05-29-2024 Glucose blood reagent strip Chi pederson MD Work Phone: Start: 05-29-2024 Glucose blood reagent strip Chi pederson MD Work Phone: Start: 05-29-2024 Glucose blood reagent strip Chi pederson MD Work Phone: Start: 05-29-2024 Glucose blood reagent strip Chi pederson MD Work Phone: Start: 05-29-2024 End: 05-29-2024 Basic metabolic panel calcium total Solomon Wesley DO Work Phone: Start: 05-28-2024 Glucose blood reagent strip Chi pederson MD Work Phone: Start: 05-28-2024 Radex spine cervical 2 or 3 views Tosha Mckenna PA-C Work Phone: Start: 05-28-2024 Glucose blood reagent strip Chi pederson MD Work Phone: Start: 05-28-2024 BASIC METABOLIC PANEL W/ REFLEX TO MG FOR LOW K Jose Mckenna PA-C Work Phone: Start: 05-28-2024 End: 05-28-2024 Blood count complete auto&auto difrntl wbc Jose Mckenna PA-C Work Phone: Start: 05-27-2024 Glucose blood reagent strip Chi pederson MD Work Phone: Start: 05-27-2024 Glucose blood reagent strip Chi pederson MD Work Phone: Start: 05-27-2024 End: 05-27-2024 Fluoroscopy during operation Edin Aham mad DO Work Phone: Start: 05-27-2024 Calcium ionized Chi Ortiz MD Work Phone: Start: 05-27-2024 OPEN HEART PANEL Chi Ortiz MD Work Phone: Start: 05-27-2024 End: 05-27-2024 Arthrd ant interbody decompress cervical belw c2 Edin Ahammad DO Work Phone: Start: 05-27-2024 Glucose blood reagent strip Chi pederson MD Work Phone: Start: 05-27-2024 Blood count complete auto&auto difrntl wbc Chi Ortiz MD Work Phone: Start: 05-26-2024 Rhythm ecg 1-3 leads w/interpretation & report Unknown Provider Result Start: 05-26-2024 Glucose blood reagent strip Chi pederson MD Work Phone: Start: 05-26-2024 Glucose blood reagent strip Chi pederson MD Work Phone: Start: 05-26-2024 Glucose blood reagent strip Chi pederson MD Work Phone: Start: 05-26-2024 Chloride urine Mayra Moraes MD Work Phone: Start: 05-26-2024 Echo tthrc r-t 2d w/wom-mode compl spec&colr d Rusty Amador APRN - PHOTOGEOLOGIST Work Phone: Start: 05-26-2024 Glucose blood reagent strip Chi pederson MD Work Phone: Start: 05-26-2024 Hemoglobin glycosylated a1c Chi pederson MD Work Phone: Start: 05-25-2024 Ecg routine ecg w/least 12 lds trcg only w/o i&r Rusty Amador APRN - PHOTOGEOLOGIST Work Phone: Start: 05-25-2024 Fluorescent nonnfct agt antb screen ea antibody Low Gomez MD Work Phone: Start: 05-25-2024 Ct lumbar spine w/o contrast material Edin Ahammad DO Work Phone: Start: 05-25-2024 End: 05-25-2024 Blood count complete auto&auto difrntl wbc Chi Ortiz MD Work Phone: Start: 05-24-2024 Mri spinal canal cervical w/o contrast matrl Rusty Amador APRN - PHOTOGEOLOGIST Work Phone: Start: 05-24-2024 Glucose blood reagent strip Chi pederson MD Work Phone: Start: 05-24-2024 Radex entir thrc lmbr crv sac spi w/skull 2/3 vw Edin Ahammad DO Work Phone: Start: 05-24-2024 Glucose blood reagent strip Chi pederson MD Work Phone: Start: 05-24-2024 Mri spinal canal lumbar w/o contrast material Yazan Rainey MD Work Phone: Start: 05-24-2024 End: 05-24-2024 Dup-scan lxtr art/artl bpgs uni/lmtd study Yazan Rainey MD Work Phone: Start: 05-24-2024 Glucose blood reagent strip Chi pederson MD Work Phone: Start: 05-24-2024 Antinuclear antibodies mesha Low Gomez MD Work Phone: Start: 05-24-2024 End: 05-24-2024 Assay of lactate Chi Ortiz MD Work Phone: Start: 05-23-2024 End: 05-23-2024 Culture bacterial quanttative colony count urine Low Gomez MD Work Phone: Start: 05-23-2024 CULTURE, BLOOD 1 Low Gomez MD Work Phone: Start: 05-23-2024 End: 05-23-2024 Creatine kinase total Saleem Caputo MD Work Phone: Start: 05-23-2024 MYOGLOBIN, BLOOD Saleem Caputo MD Work Phone: Start: 05-23-2024 C-reactive protein Tej Ernesto DO Work Phone: Start: 05-23-2024 Comprehensive metabolic panel Tej Co ots DO Work Phone: Start: 05-21-2024 BLOOD CULTURE 2 [place] BALTAZAR Work Phone: Start: 05-21-2024 BLOOD CULTURE 1 [place] BALTAZAR Work Phone: Start: 10-16-2023 Alanine aminotransferase [Enzymatic activity/volume] in Serum or Plasma GABRIELA FLORIAN Start: 10-16-2023 Aspartate aminotransferase [Enzymatic activity/volume] in Serum or Plasma GABRIELA FLORIAN Start: 10-16-2023 Lipid panel GABRIELA FLORIAN Start: 09-18-2023 Plain X-ray of right [...] spine, two or three views DO Lolita Schwerer Work Phone: Start: 10-01-2022 SARS Antigen (LFIA) DO Lolita Schwerer Work Phone: Start: 05-29-2022 MR lumbar spine wo con DO Lolita Schwerer Work Phone: Start: 05-15-2022 X-ray of lumbar spine, six views including bending views DO Lolita Schwerer Work Phone: Cardiac catheterization Joseph Reynosoagher Work Phone: Cataract surgery August Gao Abner coffman Work Phone: Colonic polypectomy August Gao Dumont Work Phone: Operative procedure on spinal structure August Gao Dumont Work Phone: Percutaneous translu chago coronary angioplasty August Murray ReynosoDumont Work Phone: Procedure on back Lolita E Kyree Work Phone: Surgical procedure on thorax August Gao Julia Work Phone: Total colonoscopy August brown Work Phone: Comment on above: Oct 2018 Dr Joao Coley; Plan of Treatment Date Care Activity Detail Author Start: 02-28-2033 DTaP/Tdap/Td Vaccines (2 - Td or Tdap) DTaP/Tdap/Td Vaccines (2 - Td or Tdap) [facility] Start: 02-28-2033 [facility] Start: 06-02-2025 [facility] Start: 10-16-2024 [facility] Start: 10-15-2024 [facility] Start: 10-14-2024 [facility] Start: 10-13-2024 [facility] Start: 10-12-2024 Choriogonadotropin.beta subunit [Presence] in Unspecified specimen [facility] Start: 10-12-2024 Estradiol (E2) [Mass/volume] in Serum or Plasma [facility] Start: 10-12-2024 Lutropin [Units/volume] in Serum or Plasma [facility] Start: 10-12-2024 End: 10-12-2024 [facility] Start: 10-11-2024 [facility] Start: 10-10-2024 Comprehensive metabolic 1999 panel - Serum or Plasma [facility] Start: 10-10-2024 [facility] Start: 10-09-2024 Comprehensive metabolic 1999 panel - Serum or Plasma [facility] Start: 10-09-2024 [facility] Start: 10-08-2024 Comprehensive metabolic 1999 panel - Serum or Plasma [facility] Start: 10-08-2024 End: 10-08-2024 [facility] Start: 10-07-2024 Comprehensive metabolic 1999 panel - Serum or Plasma [facility] Start: 10-07-2024 [facility] Start: 10-06-2024 Referral to lock and dam operator [facility] Start: 10-06-2024 [facility] Start: 10-06-2024 Hospital admission [facility] Start: 10-06-2024 Urine culture [facility] Start: 10-06-2024 Bacteria identified in Urine by Culture Urine Culture [facility] Start: 10-06-2024 [facility] Start: 10-04-2024 Referral to lock and dam operator [facility] Start: 10-04-2024 Hospital admission [facility] Start: 08-26-2024 Hemoglobin A1c measurement [facility] Start: 08-23-2024 Bacteria identified in Urine by Culture Urine Culture [facility] Start: 08-23-2024 Urine culture [facility] Start: 06-23-2024 End: 06-23-2024 Patient encounter procedure [facility] Comment on above: Arrived Start: 06-06-2024 Influenza vaccination Influenza Vaccine (#1) [facility] Start: 05-06-2024 [facility] Start: 04-29-2024 End: 04-29-2024 Patient encounter procedure 04/29/2024 9:10 AM EDT Office Visit [facility] [address] [facility] [address] [place] [id number] Gabriela Florian MD [address] [facility] [address] [place] [address] [facility] Start: 11-09-2023 [facility] Start: 10-16-2023 End: 10-16-2024 Alanine aminotransferase [Enzymatic activity/volume] in Serum or Plasma by With P-5'-P Alanine Aminotransferase Lab Routine 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of [place] coronary artery of [place] heart without angina pectoris Mixed hyperlipidemia Expected: 10/16/2023 (Approximate), Expires: 10/16/2024 [facility] Work Phone: Comment on above: Expected: 10/16/2023 (Approximate), Expi res: 10/16/2024 Start: 10-16-2023 End: 10-16-2024 Aspartate aminotransferase [Enzymatic activity/volume] in Serum or Plasma by With P-5'-P Aspartate Aminotransferase Lab Routine 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of [place] coronary artery of [place] heart without angina pectoris Mixed hyperlipidemia Expected: 10/16/2023 (Approximate), Expires: 10/16/2024 [facility] Work Phone: Comment on above: Expected: 10/16/2023 (Approximate), Expi res: 10/16/2024 Start: 10-16-2023 End: 10-16-2024 Lipid 1996 panel - Serum or Plasma Lipid Panel Lab Routine 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of [place] coronary artery of [place] heart without angina pectoris Mixed hyperlipidemia Expected: 10/16/2023 (Approximate), Expires: 10/16/2024 [facility] Service Area Work Phone: Comment on above: Expected: 10/16/2023 (Approximate), Expi res: 10/16/2024 Start: 10-16-2023 [facility], Provider: Gabriela Florian, Status: Pen, Time: 9:10 AM [facility]UV, Provider: Gabriela Florian, Status: Pen, Time: 9:10 AM -[facility] [address] DO Work Phone: Start: 10-06-2023 [facility] Start: 09-11-2023 [facility] Start: 09-09-2023 [facility] Start: 09-09-2023 Referral to lock and dam operator [facility] Start: 09-08-2023 Referral to corn sheller operator [facility] Start: 09-08-2023 Excision of Duodenum, Via Natural or Artificial Opening Endoscopic, Diagnostic Excision of Duodenum, Via Natural or Artificial Opening Endoscopic, Diagnostic [facility] Start: 09-08-2023 Excision of Stomach, Pylorus, Via Natural or Artificial Opening Endoscopic, Diagnostic Excision of Stomach, Pylorus, Via Natural or Artificial Opening Endoscopic, Diagnostic [facility] Start: 09-08-2023 Consultation [facility] Start: 09-08-2023 Hospital admission [facility] Start: 09-03-2023 COVID-19 Vaccine (4 - Moderna series) COVID-19 Vaccine (4 - Moderna series) [facility] Start: 04-22-2023 FUV, Provider: Gabriela Florian, Status: Pen, Time: 9:20 AM [facility]UV, Provider: Gabriela Florian, Status: Pen, Time: 9:20 AM [facility] [address] DO Work Phone: Start: 10-16-2022 FUV, Provider: Gabriela Florian, Status: Pen, Time: 10:20 AM [facility], Provider: Gabriela Florian, Status: Pen, Time: 10:20 AM [facility] [address] DO Work Phone: Start: 10-06-2022 [facility] Start: 10-03-2022 Referral to clinical river rat [facility] Start: 03-28-2022 FUV, Provider: Gabriela Florian, Status: Pen, Time: 10:40 AM [facility]UV, Provider: Gabriela Florian, Status: Pen, Time: 10:40 AM [facility] [address] DO Work Phone: Start: 09-19-2021 FUV, Provider: Gabriela Florian, Status: Pen, Time: 10:00 AM [facility]UV, Provider: Gabriela Florian, Status: Pen, Time: 10:00 AM -[facility] [address] [place] Work Phone: Start: 2015 Abdominal aortic aneurysm screening [facility] Start: 2010 [facility] [employer] Start: 1995 [facility] Start: 1969 Urine screening for protein Diabetes: Urine Protein Screening [facility] Start: 1968 Hepatitis C screening [facility] Start: 1962 [facility] Start: 1960 Diabetic foot examination Diabetes: Foot Exam [facility] Start: 1960 Glaucoma screening Diabetes: Retinopathy Screening [facility] Start: 1960 Lipid panel B[facility] [employer] Start: 1950 Hemoglobin A1c measurement Diabetes: Hemoglobin A1C [facility] Start: 1950 Lipid panel Lipid Panel [facility] Start: 1950 Medicare Annual Wellness Visit Medicare Annual Wellness Visit (AWV) [facility] Start: 1950 Screening for malignant neoplasm of colon [facility] 24 hour urine measurement [facility] Blood chemistry [facility] BLOOD CULTURE 1 BLOOD CULTURE 1 Lab Routine 05/21/2024 7:55 PM EDT [facility] Work Phone: BLOOD CULTURE 2 BLOOD CULTURE 2 Lab Routine 05/21/2024 8:23 PM EDT [facility] Comprehensive metabo lic 1999 panel - Serum or Plasma [facility] Continuous pulse oximetry LORENA N [employer] Elastase.pancreatic [Mass/mass] in Stool [facility] Electrophoresis: [id number] [facility] Electrophoresis: [id number] [facility] Electrophoresis: beta-globulin [facility] Glucose [Mass/volume ] in Serum or Plasma [facility] [employer] Glucose [Mass/volume ] in Serum or Plasma [facility] [employer] Immunofixation for Urine [facility] Measurement of monoc lonal protein concentration [facility] Oxygen therapy [Mini mum Data Set] [facility] [employer] Oxygen therapy [Mini mum Data Set] [facility] [employer] Patient Education [facility] Work Phone: Patient referral [facility] Work Phone: Protein [Mass/volume ] in Urine [facility] Renal function 1999 panel - Serum or Plasma [facility] Renal function 1999 panel - Serum or Plasma [facility] Renal function 1999 panel - Serum or Plasma [facility] Spirometry panel B[facility] [employer] Testosterone Free [Mass/volume] in Serum or Plasma [facility] Immunizations Immunization Date Immunization Notes Care Provider Frank bravo 07-09-2023 COVID-19 Moderna (SPIKEVAX) Lolita Schwerer Other [facility] 05-21-2023 Fluzone QIV High-Dos e 65YR+ [facility] 05-21-2023 influenza virus vaccine, unspecified formulation [place] BALTAZAR Work Phone: [facility] 02-28-2023 Prevnar 20 0.5 ML Intramuscular Suspension Prefilled Syringe Lolita E Schwerer Work Phone: [facility] 02-28-2023 tetanus toxoid, redu michel diphtheria toxoid, and acellular pertussis vaccine, adsorbed Lolita E Schwerer Work Phone: [facility] 07-16-2022 COVID-19 Moderna (BIvalent) Clemente Miller Other [facility] 06-26-2022 Fluzone High-Dose Quadrivalent 0.7 ML Intramuscular Suspension Prefilled Syringe Lolita E Schwerer Work Phone: [facility] 250 DO Work Phone: 06-26-2022 influenza, seasonal, injectable Lolita Schwerer Other [facility] Other 09-13-2021 Moderna COVID-19 Vaccine 100 MCG/0.5ML Intramuscular Suspension Lolita E Schwerer Work Phone: [facility] 06-18-2021 influenza, seasonal, injectable Lolita Schwerer Other [facility] 06-08-2021 Fluad Quadrivalent 0 .5 ML Intramuscular Prefilled Syringe [facility]ita E Schwerer [facility] DO Work Phone: 01-24-2021 COVID-19 Vaccine Moderna - Documentation Purposes Only Lolita Schwerer Other [facility] 12-27-2020 COVID-19 Vaccine Moderna - Documentation Purposes Only Lolita Schwerer Other [facility] 08-19-2020 zoster vaccine recombinant Lolita Schwerer Other [facility] 06-27-2020 influenza, seasonal, injectable Lolita E Schwerer Work [facility] DO Work Phone: 06-14-2020 Fluzone High-Dose Quadrivalent 0.7 ML Intramuscular Suspension Prefilled Syringe Lolita E Schwerer Work Phone: [facility] 250 DO Work Phone: 06-14-2020 zoster vaccine recombinant Lolita Schwerer Other [facility] 07-06-2019 influenza virus vaccine, unspecified formulation Lolita E Schwerer Work Phone: [facility] 250 DO Work Phone: 06-21-2019 pneumococcal conjuga te vaccine, 13 valent Lolita Schwerer Other [facility] 06-14-2019 influenza, high dose seasonal, preservative-free Lolita E Schwerer Work Phone: [facility] 250 DO Work Phone: 06-19-2018 influenza virus vaccine, unspecified formulation Lolita E Schwerer Work Phone: [facility] 250 DO Work Phone: 06-19-2018 influenza, high dose seasonal, preservative-free Lolita E Schwerer Work Phone: [facility] 250 DO Work Phone: 08-05-2017 zoster vaccine, live Lolita Schwerer Other [facility] 07-06-2017 influenza, high dose seasonal, preservative-free Lolita E Schwerer Work Phone: [facility] 250 DO Work Phone: 07-06-2017 pneumococcal polysaccharide vaccine, 23 valent Lolita E Schwerer Work Phone: [facility] 250 DO Work Phone: 07-06-2017 zoster vaccine, live Lolita E Schwerer Work Phone: [facility] 250 DO Work Phone: 05-14-2017 influenza, high dose seasonal, preservative-free Lolita E Schwerer Work Phone: [facility] 250 DO Work Phone: 06-22-2016 pneumococcal polysaccharide vaccine, 23 valent Lolita Schwerer Other [facility] 05-23-2016 influenza, high dose seasonal, preservative-free Loltia E Schwerer Work Phone: [facility] 250 DO Work Phone: influenza virus vaccine, unspecified formulation Lolita E Schwerer Work Phone: [facility] 250 DO Work Phone: Comment on above: 2010 2008 Payers Date Payer Category Payer Unknown [id number] 2024 Unknown [id number] 2024 Self-pay [id number] 2023 Medicare HUMANA MEDICARE HUMANA GOLD CHOICE [id number] 2023-Present [address] [place] [id number] 2022 Private Health Insurance HUMANA HUMANA HMO/POS [id number] 2022-Present [address] [address] [place] [address] [id number] 2022 Medicare [id number] 2022 Medicare [id number] 1950 Unknown [id number] [id number] 56 1950 Unknown [id number] [id number] 56 1950 Unknown [id number] [id number] 244 1950 Unknown [id number] 2.16.840.1.813271.3.579.2.1 259 1950 Unknown [id number] 2.16.840.1.025561.3.579.2.1 286 1950 Unknown [id number] 2.16.840.1.386291.3.579.2.1 286 1950 Unknown [id number] 2.16.840.1.878377.3.579.2.1 286 1950 Unknown [id number] 2.16.840.1.794509.3.579.2.1 286 1950 Unknown [id number] 2.16.840.1.980987.3.579.2.1 75 Medicare [id number] Medicare Medicare [id number] Unknown Unknown [id number] [id number] 31 Unknown [id number] 2.16.840.1.974174.3.579.2.5 31 Unknown [id number] 2.16.840.1.486422.3.579.2.5 31 Unknown [id number] 2.16.840.1.639123.3.579.2.5 31 Unknown [id number] 2.16.840.1.332457.3.579.2.5 31 Unknown [id number] 2.16.840.1.542632.3.579.2.5 31 Unknown [id number] 2.16.840.1.265331.3.579.2.5 31 Unknown [id number] [id number] 31 Social History Date Type Detail Facility Start: 09-24-2023 End: 05-24-2024 No illicit drug use No illicit drug use [facility] Other Comment on above: 2 cups of coffee philippe ly; 1-2 packs weekly; 1 pack every 2 weeks ; Start: 09-24-2023 End: 05-24-2024 Sex Assigned At [facility] Other Start: 07-14-2022 End: 10-06-2024 Tobacco smoking status NHIS Smoker (finding) [facility] Start: 1950 Sex Assigned At Male F [facility] Start: 09-24-2023 End: 05-24-2024 Tobacco smoking status [facility] Smokes tobacco daily [facility] Work Phone: History of tobacco use Cigarette Smoker U [facility] Work Phone: Start: 09-24-2023 End: 05-24-2024 Tobacco use and exposure Smokeless tobacco non-user [facility] Work Phone: Start: 10-16-2023 End: 05-28-2024 Alcohol intake Lifetime non-drinker (finding) [facility] Work Phone: Start: 1950 Sex Assigned At Not on file [facility] Work Phone: Start: 10-06-2023 End: 10-16-2023 Exposure to SARS-CoV-2 (event) Not sure [facility] Start: 11-06-2023 [facility] Start: 08-24-2024 End: 10-27-2024 Sex Male (finding) [facility] Start: 06-23-2023 Tobacco smoking stat [facility] Tobacco smoking consumption unknown [facility] Start: 06-23-2023 End: 06-23-2024 Alcoholic beverage intake Ex-drinker (finding) [facility] Has the [employer], [employer], oil, or water company threatened to shut off services in your home in past 12Mo No [facility] How often to you hav e a drink containing alcohol? Never [facility] How many standard drinks containing alcohol do you have on a typical day? [facility] (I/We) worried eyad er (my/our) food would run out before (I/we) got money to buy more. Sometimes true [facility] The food that (I/we) bought just didn't last, and (I/we) didn't have money to get more. Never true [facility] Start: 05-23-2024 Gender identity Identifies as male gender (finding) [facility] Start: 05-23-2024 Sexual orientation Heterosexual (fin quinn) [facility] Medical Equipment Procedure Code Equipment Code Equipment [...] Bone-screw inter nal spinal fixation system, non-sterile [id number] FDA Start: 10-02-2022 Bone-screw inter nal spinal fixation system, non-sterile [id number] FDA Start: 10-02-2022 Spinal fusion gr aft kit [id number] FDA Start: 10-02-2022 Polymeric spinal fusion cage, sterile [id number] FDA Start: 10-02-2022 Bone-screw inter nal spinal fixation system, non-sterile [id number] FDA Start: 10-02-2022 CL STENT PROMUS REGAN 4.0 X 16 FDA Start: 08-24-2017 CL STENT XIENCE ALP 4.0 X 08 FDA Start: 08-24-2017 CANCELLOUS 15CC CRUSHED FDA Start: 10-02-2022 CL STENT PROMUS REGAN 4.0 X 16 FDA Start: 08-24-2017 CL STENT XIENCE ALP 4.0 X 08 FDA Start: 08-24-2017 CANCELLOUS 15CC CRUSHED FDA Start: 10-02-2022 Start: 04-03-2023 CL STENT PROMUS REGAN 4.0 X 16 [...] 08-24-2017 CANCELLOUS 15CC CRUSHED FDA Start: 10-02-2022 Pen Needle, Diab etic (Bd Ultra-Fine Short Pen Needle) 31 gauge x 5/16 needle Start: 10-14-2024 CL STENT PROMUS REGAN 4.0 X 16 FDA Start: 08-24-2017 CL STENT XIENCE ALP 4.0 X 08 FDA Start: 08-24-2017 CANCELLOUS 15CC CRUSHED FDA Start: 10-02-2022 Pen Needle, Diab etic (Bd Ultra-Fine Short Pen Needle) 31 gauge x 5/16 needle Start: 10-14-2024 CL STENT PROMUS REGAN 4.0 X 16 FDA Start: 08-24-2017 CL STENT XIENCE ALP 4.0 X 08 FDA Start: 08-24-2017 CANCELLOUS 15CC CRUSHED FDA Start: 10-02-2022 Pen Needle, Diab etic (Bd Ultra-Fine Short Pen Needle) 31 gauge x 5/16 needle Start: 10-14-2024 [id number] Start: 05-27-2024 [id number] Start: 05-27-2024 [id number] Start: 05-27-2024 [id number] Start: 05-27-2024 [id number] Start: 05-27-2024 [id number], [id number] FDA Start: 05-27-2024 [id number] [id number], [id number] FDA Start: 05-27-2024 [id number] Start: 05-27-2024 [id number] Start: 05-27-2024 [id number] Start: 05-27-2024 [id number] Start: 05-27-2024 [id number] Start: 05-27-2024 Goals Date Patient Goal Desired Activity /State Functional Status Date Assessment Result Facility 10-08-2024 Functional status Patient at Baseline [facility] Work Phone: 10-06-2024 Functional status Patient at Baseline [facility] Work Phone: 09-11-2023 Functional status Patient at Baseline [facility] Work Phone: 10-06-2022 Functional status 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 [facility] Work Phone: Mental Status Date Assessment Result Facility 10-08-2024 Cognitive function Cognitive Sta tus Patient at Baseline [facility] Work Phone: 10-06-2024 Cognitive function Cognitive Sta tus Patient at Baseline [facility] Work Phone: 09-11-2023 Cognitive function Cognitive Sta tus Patient at Baseline [facility] Work Phone: 10-06-2022 Cognitive function Cognitive Sta tus Patient at Baseline [facility] Work Phone: Clinical Notes 08-09-2021 to 10-08-2024 Note Date & Type Note Facility 10-08-2024 Progress note Note Date/Time October 08, 2024 1: 44pm [facility] [address] [place] [address] Nephrology Progress Note Signed Patient: Gage Lugo MR#: [id number] : 1950 Acct:[id number] Age/Sex: 74 / M Adm Date: 5 Loc: Room: [address] [place] [address] Type: ADM IN Attending Dr: Matheus Robison MD Copies to: ~ Date of Service: 10/08/2024 Subjective Subjective Narrative: Narrative: 74-year-old male patient past medical history of chronic kidney disease stage IVfollows with Dr. Holden in the renal office, history of hyperkalemia, diabetes and hypertension, coronary disease status post PCI in the past. Patient was sent to the emergency room by his PCP for labs showing hyperkalemia potassium 6.6. In the emergency room potassium was found to be slightly better at 6.1. EKG did not show peaked T wave patient was treated medically with Lokelma, insulin and 1 dose of Lasix. Lab also showed creatinine 2.6 mg deciliter which is close to lab from last month of 2.4 mg deciliter I reviewed the patient's home medications. He is on isosorbide mononitrate, hydralazine, Lasix, and Aldactone for hypertension management. Patient stated he has been compliant with low potassium diet Systolic blood pressure when he presented to the hospital was elevated at 200. Patient was given 1 dose of labetalol. Blood pressure this morning 154/82 Patient has no complaint. Denied NSAID use. He stated his blood pressure has been elevated at home. He does monitor blood pressure twice daily Interval history: Patient was seen and examined in his room. I had an extensive talk with the patient daughter about discharge planning .I explained the daughter the necessity of keeping low potassium diet Blood pressure has been well-controlled . Serum creatinine today 3.19 mg deciliter which is remain higher than baseline creatinine .GFR 19 mL/min No fluid overload. Patient denies nausea vomiting .no shortness of breath. No dizziness. Exam Physical Exam Vital Signs: Temp Pulse Resp BP Pulse Ox O2 Del Method 97.3 F L 71 18 115/63 96 Room Air 10/08/24 07:37 10/08/24 11:27 10/08/24 11:27 10/08/24 11:27 10/08/24 11:27 10/08/24 11:27 Narrative: General: No acute distress Head :atraumatic normocephalic Eyes: PERRLA. Neck: no JVD no bruit. Heart: S1-S2. RRR Respiratory: Clear to auscultation. No wheezing. No crackles Abdomen: Soft, positive bowel sounds,no tenderness. Neurology: Awake alert oriented x3. No focal deficits Extremity. No cyanosis. No edema Skin: No skin rash Objective Intake and Output I&O: Intake & Output 10/05/24 10/06/24 10/07/24 10/08/24 23:59 23:59 23:59 23:59 Intake Total 500 / 500 1250 / 1250 700 / 700 Output Total 600 / 600 Balance -100 / -100 1250 / 1250 700 / 700 Weight 80 kg 80 kg 81.8 kg Meds and Allergies Meds: Active Medications Acetaminophen (Acetaminophen 325 Mg Tablet) 650 mg PO Q6HR PRN PRN Reason: Pain Scale 1 - 3 or fever Stop: 10/06/25 17:29 Aspirin (Aspirin 81 Mg Tab.Chew) 81 mg PO QAM [facility] Stop: 10/07/25 08:59 Last Admin: 10/08/24 08:15 Dose: 81 mg Atorvastatin Calcium (Atorvastatin 20 Mg Tablet) 20 mg PO QHS [facility] Stop: 10/06/25 21:59 Last Admin: 10/07/24 21:19 Dose: 20 mg Carvedilol (Carvedilol 25 Mg Tablet) 25 mg PO BID.WITH.MEALS [facility] Stop: 10/07/25 07:59 Last Admin: 10/08/24 08:15 Dose: 25 mg Clonidine HCl (Clonidine 0.1 Mg Tablet) 0.1 mg PO Q12HR [facility] Stop: 10/07/25 08:59 Last Admin: 10/08/24 08:15 Dose: 0.1 mg Cyanocobalamin (Cyanocobalamin 1,000 Mcg Tablet) 1,000 mcg PO QAM [facility] Stop: 10/07/25 08:59 Last Admin: 10/08/24 08:15 Dose: 1,000 mcg Cyclobenzaprine HCl (Cyclobenzaprine 10 Mg Tablet) 10 mg PO QHS PRN PRN Reason: spasms Stop: 10/06/25 21:59 Dextrose (Dextrose 50% In Water 25 Gm/50 Ml Syringe) 0 gm IV-PUSH PRN PRN PRN Reason: Hypoglycemia Stop: 10/06/25 17:22 Enoxaparin Sodium (Enoxaparin 30 Mg/0.3 Ml Syringe) 30 mg SUBCUT DAILY@10 [facility] Stop: 10/07/25 09:59 Last Admin: 10/08/24 09:37 Dose: Not Given Ergocalciferol (Ergocalciferol 1,250 Mcg (50,000 Units) Capsule) 1,250 mcg PO Tu@0900 [facility] Stop: 10/12/25 08:59 Ferrous Sulfate (Ferrous Sulfate 324 Mg Tablet.Dr) 324 mg PO DAILY [facility] Stop: 10/07/25 08:59 Last Admin: 10/08/24 08:15 Dose: 324 mg Gabapentin (Gabapentin 300 Mg Capsule) 300 mg PO BID [facility] Stop: 10/06/25 20:59 Last Admin: 10/08/24 08:15 Dose: 300 mg Glucose (Dextrose 40% Gel 15 Gm Tube) 0 gm PO PRN PRN PRN Reason: Hypoglycemia Stop: 10/06/25 17:22 Hydralazine HCl (Hydralazine 50 Mg Tablet) 100 mg PO TID [facility] Stop: 10/06/25 21:59 Last Admin: 10/08/24 08:15 Dose: 100 mg Insulin Aspart (Insulin Aspart 300 Units/3 Ml) 0 units SUBCUT TID.WM.HS [facility]; Protocol Stop: 10/06/25 21:59 Last Admin: 10/08/24 11:52 Dose: 2 units Insulin Glargine (Insulin Glargine 300 Units/3 Ml Insuln.Pen) 10 units SUBCUT BID [facility] Stop: 10/06/25 20:59 Last Admin: 10/08/24 08:15 Dose: 10 units Isosorbide Mononitrate (Isosorbide Mononitrate 24hr Er 30 Mg Tab.Er.24h) 30 mg PO QAM [facility] Stop: 10/07/25 08:59 Last Admin: 10/08/24 08:15 Dose: 30 mg Loratadine (Loratadine 10 Mg Tablet) 10 mg PO BID [facility] Stop: 10/06/25 20:59 Last Admin: 10/08/24 08:15 Dose: 10 mg Magnesium Oxide (Magnesium Oxide 400 Mg Tablet) 400 mg PO BID [facility] Stop: 10/09/24 10:29 Last Admin: 10/08/24 08:15 Dose: 400 mg Multivitamins (Multivitamin 1 Tab Tablet) 1 tab PO DAILY [facility] Stop: 10/07/25 08:59 Last Admin: 10/08/24 08:15 Dose: 1 tab Nitroglycerin (Nitroglycerin 0.4 Mg Tab.Subl) 0.4 mg SUBLINGUAL Q5M PRN PRN Reason: Chest Pain Stop: 10/06/25 17:11 Ondansetron HCl (Ondansetron 4 Mg/2 Ml Vial) 4 mg IV-PUSH Q8H PRN PRN Reason: Nausea And Vomiting Stop: 10/06/25 17:17 Sodium Chloride (Sodium Chloride 0.9 % 10 Ml Syringe) 0 ml IV-PUSH PRN PRN PRN Reason: Flush Stop: 10/06/25 15:18 Last Admin: 10/06/24 21:34 Dose: 10 ml Sodium Zirconium Cyclosilicate (Sodium Zirconium Cyclosilicate 10 Gm Powd.Pack) 10 gm PO DAILY [facility]; Protocol Stop: 10/07/25 08:59 Last Admin: 10/08/24 08:14 Dose: 10 gm Allergies aspirin Allergy (Unknown, Verified 10/06/24 15:19) Swelling of Lip/Tongue/Throat, lips turn blue if takes 2 oxycodone (From Percocet) Allergy (Unknown, Verified 10/06/24 15:19) Swelling of Lip/Tongue/Throat, swelling of throat amlodipine Adverse Reaction (Verified 10/06/24 15:19) Edema Results - Nephrology Labs 10/08/24 05:51 10/08/24 05:51 Labs: 10/08/24 05:51 BUN 63 H Creatinine 3.16 H Albumin 3.6 Radiology Impressions Impressions - last 24 hours: Any impression(s) listed above is documentation that was entered by the reading physician into a diagnostic report(s) for Gage Lugo. I have reviewed the report(s) and am incorporating any findings in the treatment plan of this patient where applicable. A&P - Nephrology Assessment/Plan (1) Acute kidney injury superimposed on CKD: Assessment/Problem Details: Acute kidney injury is likely from prerenal related to better control of blood pressure along being on Lasix l. Kidney function improved with the fluid bolus yesterday. Creatinine peaked at 3.3. Creatinine this morning 3.0. Baseline creatinine around 2.4 mg deciliter. Patient follows with Dr. 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 Patient treated with Lokelma during last admission since yesterday for potassium 5.5. Potassium this morning 5.1 (3) Hypertensive chronic kidney disease with stage 1 through stage 4 chronic kidney disease, or unspecified chronic kidney disease: Assessment/Problem Details: Blood pressure is well-controlled with the current blood pressure medications. (4) Diabetes: Assessment/Problem Details: Patient on glargine insulin twice a day along with insulin as part with meal. Diabetes seems well-controlled this morning Plan * Blood pressure has been well-controlled over the last 24 hours with no episodes of hypo or hypertension. * Will continue blood pressure medications * No need for diuretics. No fluid overload * Will continue Lokelma 10 g p.o. daily * Low potassium diet * Keep blood glucose under good control to avoid osmotic diuresis and worsening hyperkalemia * Patient is on ceftriaxone for UTI treatment.. Urine culture on October 04 grew E. coli * Check CBC renal function panel in a.m. Patient can be discharged from nephrology standpoint with the current dose of blood pressure medications. Please discharge patient with Lokelma 10 mg p.o. daily. Please repeat renal function panel next Friday.. Please arrange follow-up with Dr. Holden in renal office in 1 to 2 weeks Plan of care was discussed with patient's, his daughter over phone and the primary hospitalist team Documented By: Tito Martinez MD 10/08/24 5200 Signed By: <Electronically signed by Tito Martinez MD> 10/08/24 1344 [facility] Work Phone: 1(734) 410-816301-03-2025 Discharge summary Author Matheus Robison [facility] Note Date/Time October 08, 2024 12 :41pm [facility] [address] [place], [place] [id number] Discharge Summary Signed with Addenda Patient: Gage Lugo MR#: [id number] : 1950 Acct:[id number] Age/Sex: 74 / M Adm Date: 5 Loc: Room: [address] [place] [address]: Matheus Robison MD Copies to: MD Lolita Salinas, DO~ ADDENDUM1 Discharge summary-nephrology is also recommended Lokelde daily for hyperkalemia and outpatient BMP and 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 Addendum Documented By: Matheus Robison MD 10/08/24 1241 Addendum Signed By: <Electronically signed by Matheus Robison MD> 10/08/24 1241 Providers Date of Discharge: 10/08/24 Discharging Provider: Matheus Robison Primary Care Provider: Lolita Adorno Consults: 10/06/24 17:18 Consult to Nephrology Routine Comment: Consulting Provider: Tito Martinez Has Provider Been Notified: Yes Date of Notification: 10/06/24 Time of Notification: 18:14 Reason for Consult: Acute Kidney Injury Hyper/Hypo Kalemia Discharge Diagnosis (1) Chronic renal insufficiency: (2) Near syncope: (3) Diabetes mellitus: (4) Acute hyperkalemia: (5) Chronic kidney disease, stage IV (severe): (6) Hypertensive urgency: (7) E. coli UTI: Final Diagnosis Final Discharge Diagnosis: Acute hyperkalemia and MEAGHAN Summary Hospital Course Hospital course: 1) Chronic renal insufficiency: (2) Near syncope: (3) Diabetes mellitus: (4) Acute hyperkalemia: (5) Chronic kidney disease, stage IV (severe): (6) Hypertensive urgency: (7) E. coli UTI: This is a 74-year-old male with significant past medical history of hypertension, CKD stage IV, history of CAD status post stent, diabetes, hyperlipidemia who was admitted here for hyperkalemia on the lab work with hypertensive urgency which was well-controlled and was discharged today. His daughter picked him up and while he was driving back he complained of having some nausea vomiting and lightheadedness and ask her to bring him back to ED. In the ED he was found to be hypertensive. Lab work shows no leukocytosis with stable hemoglobin. Potassium is slightly up to 5.5 from 4.9 and creatinine is uptrending and is 3.25 today. His liver enzymes are unremarkable. Patient got a bolus of IV fluid with Zofran and Lokelma in the ED. during the admission patient was also started on ceftriaxone for E. coli UTI which was pansensitive which was switched to levofloxacin for concern of MEAGHAN. During his hospital admission his symptoms improved. His potassium is down to 4.2. lock and dam operator waskhario consulted who recommended decreasing clonidine to 0.1 mg and outpatient BMPbefore follow-up with PCP and university lecturer. He is also recommended low potassium diet. He has completed 5-day course of antibiotics during this and last Hospital admission Condition Condition at Discharge: Stable Time Spent with Patient Time spent providing/coordinating discharge services (# min): 38 Discharge Plan Discharge Plan Patient Disposition: Home Activity: No Activity Restriction Diet: Renal and Other Comment: Low potassium diet Instructions: Know your Meds Prescriptions: New clonidine HCl 0.1 mg Tablet 0.1 mg PO Q12HR 60 Days Qty: 120 0RF Continued ferrous sulfate 325 mg (65 mg iron) tablet See Rx Instructions .ROUTE .COMPLEX Qty: 90 0RF Dose Instruction: TAKE 1 TABLET EVERY MORNING Rx Instructions: TAKE 1 TABLET EVERY MORNING cyclobenzaprine 10 mg tablet See Rx Instructions .ROUTE .COMPLEX Qty: 30 2RF Dose Instruction: TAKE 1 TABLET BY MOUTH DAILY AT BEDTIME NEEDED FOR BACK SPASMS Rx Instructions: TAKE 1 TABLET BY MOUTH DAILY AT BEDTIME NEEDED FOR BACK SPASMS nitroglycerin 0.4 mg Tablet, Sublingual 0.4 mg Sublingual Q5M PRN (Reason: Chest Pain) 30 Days Qty: 30 2RF Centrum 9 mg iron/ 15 mL (15 mL) Liquid 15 ml PO DAILY atorvastatin 20 mg Tablet 20 mg PO QHS Patient Comments: 20mg filled outpatient, has always received 80mg at this facility with good effect isosorbide mononitrate 30 mg tablet extended release [...] Further refills, or dose adjustment, per PCP furosemide 40 mg tablet 40 mg PO DAILY pantoprazole 40 mg tablet,delayed release (DR/EC) 40 mg PO DAILY Patient Comments: per pt is taking Pepcid 20 mg daily not this glipizide 5 mg tablet 5 mg PO DAILY Patient Comments: pt is no longer taking this med per cetirizine 10 mg tablet 10 mg PO BID famotidine 20 mg tablet 20 mg PO DAILY gabapentin 300 mg capsule 300 mg PO BID insulin glargine [Lantus Solostar U-100 Insulin] 100 unit/mL (3 mL) insulin pen 10 unit subcut BID hydralazine 100 mg tablet 100 mg PO TID ergocalciferol (vitamin D2) 1,250 mcg (50,000 unit) capsule 1,250 mcg PO QWEEK Qty: 14 1RF Patient Comments: tuesdays Discontinued amoxicillin-pot clavulanate [Augmentin] 500-125 mg tablet 1 tab PO Q8HR 5 Days Qty: 15 0RF clonidine HCl 0.2 mg tablet 0.2 mg PO Q12HR Qty: 60 0RF Other Ambulatory Orders: Basic Metabolic Panel (Routine) Timeframe: 20241012 Location: Determined by Patient Ordered By: Tito Martinez Basic Metabolic Panel (Routine) Timeframe: 3 Days Location: Determined by Patient Ordered By: Matheus Robison Follow Up: Nette Holden MD [Active Staff] - 12/20/24 1:00 pm (Please keep your appointment as scheduled.) Lolita Adorno DO [Primary Care Provider] - 10/12/24 11:00 am (Post hospital appointment. Please call to reschedule if needed.) Exam Physical Exam Vital Signs: Temp Pulse Resp BP Pulse Ox O2 Del Method 97.3 F L 66 18 126/68 95 Room Air 10/08/24 07:37 10/08/24 07:37 10/08/24 07:37 10/08/24 07:37 10/08/24 07:37 10/08/24 07:37 Narrative: General: Awake alert, no acute distress HEENT: head atraumatic, normocephalic, moist mucous membranes Neck: supple no masses, no lymphadenopathy CVS: regular rate and rhythm, no murmurs or gallops Respiratory: clear to auscultation bilaterally, no wheezing or crackles, symmetric expansion GI: soft, nondistended, nontender, positive bowel sounds with no organomegaly Extremity: moves all extremities, no restrictions of movements, no calf tenderness Neuro: AOx3, CN II-VII intact. Moves all extremities in all planes of motion. Skin: intact no rashes or lesions Diagnostic Studies Completed and Pending Studies Pending studies at discharge: 10/09/24 05:00 Complete Blood Count Auto Diff IN AM Comprehensive Metabolic Panel [CHEM] IN AM 10/10/24 05:00 Complete Blood Count Auto Diff IN AM Comprehensive Metabolic Panel [CHEM] IN AM 10/11/24 05:00 Complete Blood Count Auto Diff IN AM 10/12/24 05:00 Complete Blood Count Auto Diff IN AM 10/13/24 05:00 Complete Blood Count Auto Diff IN AM 10/14/24 05:00 Complete Blood Count Auto Diff IN AM 10/15/24 05:00 Complete Blood Count Auto Diff IN AM 10/16/24 05:00 Complete Blood Count Auto Diff IN AM Labs on day of discharge: 10/08/24 11:13: POC Glucose 246 10/08/24 06:33: POC Glucose 70 10/08/24 05:51: Corrected WBC 7.5, Uncorrected WBC Count 7.5, RBC 4.01, Hgb 10.9 L, Hct 33.0 L, MCV 82.3 L, MCH 27.2 L, MCHC 33.1, RDW 13.4, Plt Count 188, MPV 8.3, Neut % (Auto) 49.3, Lymph % (Auto) 34.9, Kleberg % (Auto) 12.6, Eos % (Auto) 2.7, Baso % (Auto) 0.5, Nucleat RBC Rel Count 0.1, Neut # (Auto) 3.7, Lymph # (Auto) 2.6, Kleberg # (Auto) 0.9 H, Eos # (Auto) 0.2, Baso # (Auto) 0.0, PHA Creatinine Clear 20.20, Sodium 137, Potassium 4.2, Chloride 104, Carbon Dioxide 24.1, Anion Gap 13.1, BUN 63 H, Creatinine 3.16 H, Est GFR (CKD-EPI) 19.856, Glucose 57 L, Calcium 8.7, Total Bilirubin 0.5, AST 12 L, ALT 11, Alkaline Phosphatase 84, Total Protein 5.9 L, Albumin 3.6, Globulin 2.3, Albumin/Globulin Ratio 1.6 10/07/24 20:34: POC Glucose 188 10/07/24 16:21: POC Glucose 134 Documented By: Matheus Robison MD 10/08/24 1230 Signed By: <Electronically signed by Matheus Robison MD> 10/08/24 1235 [facility] Work Phone: 1(539) 211-613801-03-2025 [place] [address] Nephrology Progress Note Signed Patient: Gage Lugo MR#: [id number] : 1950 Acct:[id number] Age/Sex: 74 / M Adm Date: 5 Loc: Room: [address] [place] [address] Type: ADM IN Attending Dr: Matheus Robison MD Copies to: ~ Date of Service: 10/08/2024 Subjective Subjective Narrative: Narrative: 74-year-old male patient past medical history of chronic kidney disease stage IVfollows with Dr. Holden in the renal office, history of hyperkalemia, diabetes and hypertension, coronary disease statuspost PCI in the past. Patient was sent to the emergency room by his PCP for labs showing hyperkalemia potassium 6.6. In the emergency room potassium was found to be slightly better at 6.1. EKG did not show peaked T wave patient was treated medically with Lokelma, insulin and 1 dose of Lasix. Lab also showed creatinine 2.6 mg deciliter which is close to lab from last month of 2.4 mg deciliter I reviewed the patient's home medications. He is on isosorbide mononitrate, hydralazine, Lasix, andAldactone for hypertension management. Patient stated he has been compliant with low potassium diet Systolic blood pressure when he presented to the hospital was elevated at 200. Patient was given 1 dose of labetalol. Blood pressure this morning 154/82 Patient has no complaint. Denied NSAID use. He stated his blood pressure has been elevated at home.He does monitor blood pressure twice daily Interval history: Patient was seen and examined in his room. I had an extensive talk with the patient daughter about discharge planning .I explained the daughter the necessity of keeping low potassium diet Blood pressure has been well-controlled . Serum creatinine today 3.19 mg deciliter which is remain higher than baseline creatinine .GFR 19 mL/min No fluid overload. Patient denies nausea vomiting .no shortness of breath. No dizziness. Exam Physical Exam Vital Signs: Temp Pulse Resp BP Pulse Ox O2 Del Method 97.3 F L 71 18 115/63 96 Room Air 10/08/24 07:37 10/08/24 11:27 10/08/24 11:27 10/08/24 11:27 10/08/24 11:27 10/08/24 11:27 Narrative: General: No acute distress Head :atraumatic normocephalic Eyes: PERRLA. Neck: no JVD no bruit. Heart: S1-S2. RRR Respiratory: Clear to auscultation. No wheezing. No crackles Abdomen: Soft, positive bowel sounds,no tenderness. Neurology: Awake alert oriented x3. No focal deficits Extremity. No cyanosis. No edema Skin: No skin rash Objective Intake and Output I&O: Intake & Output 10/05/24 10/06/24 10/07/24 10/08/24 23:59 23:59 23:59 23:59 Intake Total 500 / 500 1250 / 1250 700 / 700 Output Total 600 / 600 Balance -100 / -100 1250 / 1250 700 / 700 Weight 80 kg 80 kg 81.8 kg Meds and Allergies Meds: Active Medications Acetaminophen (Acetaminophen 325 Mg Tablet) 650 mg PO Q6HR PRN PRN Reason: Pain Scale 1 - 3 or fever Stop: 10/06/25 17:29 Aspirin (Aspirin 81 Mg Tab.Chew) [facility] [place]: 10/07/25 08:59 Last Admin: 10/08/24 08:15 Dose: 81 mg Atorvastatin Calcium (Atorvastatin 20 Mg Tablet) 20 mg PO QHS [facility] Stop: 10/06/25 21:59 Last Admin: 10/07/24 21:19 Dose: 20 mg Carvedilol (Carvedilol 25 Mg Tablet) 25 mg PO BID.WITH.MEALS [facility] Stop: 10/07/25 07:59 Last Admin: 10/08/24 08:15 Dose: 25 mg Clonidine HCl (Clonidine 0.1 Mg Tablet) 0.1 mg PO Q12HR [facility] Stop: 10/07/25 08:59 Last Admin: 10/08/24 08:15 Dose: 0.1 mg Cyanocobalamin (Cyanocobalamin 1,000 Mcg Tablet) 1,000 mcg PO QAM [facility] Stop: 10/07/25 08:59 Last Admin: 10/08/24 08:15 Dose: 1,000 mcg Cyclobenzaprine HCl (Cyclobenzaprine 10 Mg Tablet) 10 mg PO QHS PRN PRN Reason: spasms Stop: 10/06/25 21:59 Dextrose (Dextrose 50% In Water 25 Gm/50 Ml Syringe) 0 gm IV-PUSH PRN PRN PRN Reason: Hypoglycemia Stop: 10/06/25 17:22 Enoxaparin Sodium (Enoxaparin 30 Mg/0.3 Ml Syringe) 30 mg SUBCUT DAILY@10 [facility] Stop: 10/07/25 09:59 Last Admin: 10/08/24 09:37 Dose: Not Given Ergocalciferol (Ergocalciferol 1,250 Mcg (50,000 Units) Capsule) 1,250 mcg PO Tu@0900 [facility] Stop: 10/12/25 08:59 Ferrous Sulfate (Ferrous Sulfate 324 Mg Tablet.Dr) 324 mg PO DAILY [facility] Stop: 10/07/25 08:59 Last Admin: 10/08/24 08:15 Dose: 324 mg Gabapentin (Gabapentin 300 Mg Capsule) 300 mg PO BID [facility] Stop: 10/06/25 20:59 Last Admin: 10/08/24 08:15 Dose: 300 mg Glucose (Dextrose 40% Gel 15 Gm Tube) 0 gm PO PRN PRN PRN Reason: Hypoglycemia Stop: 10/06/25 17:22 Hydralazine HCl (Hydralazine 50 Mg Tablet) 100 mg PO TID [facility] Stop: 10/06/25 21:59 Last Admin: 10/08/24 08:15 Dose: 100 mg Insulin Aspart (Insulin Aspart 300 Units/3 Ml) 0 units SUBCUT TID.[facility]; Protocol Stop: 10/06/25 21:59 Last Admin: 10/08/24 11:52 Dose: 2 units Insulin Glargine (Insulin Glargine 300 Units/3 Ml Insuln.Pen) 10 units SUBCUT BID [facility] Stop: 10/06/25 20:59 Last Admin: 10/08/24 08:15 Dose: 10 units Isosorbide Mononitrate (Isosorbide Mononitrate 24hr Er 30 Mg Tab.Er.24h) 30 mg PO QAM [facility] Stop: 10/07/25 08:59 Last Admin: 10/08/24 08:15 Dose: 30 mg Loratadine (Loratadine 10 Mg Tablet) 10 mg PO BID [facility] Stop: 10/06/25 20:59 Last Admin: 10/08/24 08:15 Dose: 10 mg Magnesium Oxide (Magnesium Oxide 400 Mg Tablet) 400 mg PO BID [facility] Stop: 10/09/24 10:29 Last Admin: 10/08/24 08:15 Dose: 400 mg Multivitamins (Multivitamin 1 Tab Tablet) 1 tab PO DAILY [facility] Stop: 10/07/25 08:59 Last Admin: 10/08/24 08:15 Dose: 1 tab Nitroglycerin (Nitroglycerin 0.4 Mg Tab.Subl) 0.4 mg SUBLINGUAL Q5M PRN PRN Reason: Chest Pain Stop: 10/06/25 17:11 Ondansetron HCl (Ondansetron 4 Mg/2 Ml Vial) 4 mg IV-PUSH Q8H PRN PRN Reason: Nausea And Vomiting Stop: 10/06/25 17:17 Sodium Chloride (Sodium Chloride 0.9 % 10 Ml Syringe) 0 ml IV-PUSH PRN PRN PRN Reason: Flush Stop: 10/06/25 15:18 Last Admin: 10/06/24 21:34 Dose: 10 ml Sodium Zirconium Cyclosilicate (Sodium Zirconium Cyclosilicate 10 Gm Powd.Pack) 10 gm PO DAILY [facility];Protocol Stop: 10/07/25 08:59 Last Admin: 10/08/24 08:14 Dose: 10 gm Allergies aspirin Allergy (Unknown, Verified 10/06/24 15:19) Swelling of Lip/Tongue/Throat, lips turn blue if takes 2 oxycodone (From Percocet) Allergy (Unknown, Verified 10/06/24 15:19) Swelling of Lip/Tongue/Throat, swelling of throat amlodipine Adverse Reaction (Verified 10/06/24 15:19) Edema Results - Nephrology Labs 10/08/24 05:51 10/08/24 05:51 Labs: 10/08/24 05:51 BUN 63 H Creatinine 3.16 H Albumin 3.6 Radiology Impressions Impressions - last 24 hours: Any impression(s) listed above is documentation that was entered by the reading physician into a diagnostic report(s) for Gage Lugo. I have reviewed the report(s) and am incorporating any findings in the treatment plan of this patient where applicable. A&P - Nephrology Assessment/Plan (1) Acute kidney injury superimposed on CKD: Assessment/Problem Details: Acute kidney injury is likely from prerenal related to better control of blood pressure along beingon Lasix l. Kidney function improved with the fluid bolus yesterday. Creatinine peaked at 3.3. Creatinine this morning 3.0. Baseline creatinine around 2.4 mg deciliter. Patient follows with Dr. 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 Patient treated with Lokelma during last admission since yesterday for potassium 5.5. Potassium this morning 5.1 (3) Hypertensive chronic kidney disease with stage 1 through stage 4 chronic kidney disease, or unspecified chronic kidney disease: Assessment/Problem Details: Blood pressure is well-controlled with the current blood pressure medications. (4) Diabetes: Assessment/Problem Details: Patient on glargine insulin twice a day along with insulin as part with meal. Diabetes seems well-controlled this morning Plan * Blood pressure has been well-controlled over the last 24 hours with no episodes of hypo or hypertension. * Will continue blood pressure medications * No need for diuretics. No fluid overload * Will continue Lokelma 10 g p.o. daily * Low potassium diet * Keep blood glucose under good control to avoid osmotic diuresis and worsening hyperkalemia * Patient is on ceftriaxone for UTI treatment.. Urine culture on October 04 grew E. coli * Check CBC renal function panel in a.m. Patient can be discharged from nephrology standpoint with the current dose of blood pressure medications. Please discharge patient with Lokelma 10 mg p.o. daily. Please repeat renal function panel next Friday.. Please arrange follow- up with Dr. Holden in renal office in 1 to 2 weeks Plan of care was discussed with patient's, his daughter over phone and the primary hospitalist team Documented By: Tito Martinez MD 10/08/24 1342 Signed By: 10/08/24 1344 [facility]01-03-2025 [place] [address] Discharge Summary Signed with Addenda Patient: Gage Lugo MR#: [id number] : 1950 Acct:[id number] Age/Sex: 74 / M Adm Date: 5 Loc: Room: [address] [place] [address]: Matheus Robison MD Copies to: MD Lolita Salinas, DO~ ADDENDUM1 Discharge summary-nephrology is also recommended Lokelma daily for hyperkalemia and outpatient BMP and 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 Addendum Documented By: Matheus Robison MD 10/08/24 1241 Addendum Signed By: 10/08/24 1241 Providers Date of Discharge: 10/08/24 Discharging Provider: Matheus Robison Primary Care Provider: Lolita Adorno Consults: 10/06/24 17:18 Consult to Nephrology Routine Comment: Consulting Provider: Tito Martinez Has Provider Been Notified: Yes Date of Notification: 10/06/24 Time of Notification: 18:14 Reason for Consult: Acute Kidney Injury Hyper/Hypo Kalemia Discharge Diagnosis (1) Chronic renal insufficiency: (2) Near syncope: (3) Diabetes mellitus: (4) Acute hyperkalemia: (5) Chronic kidney disease, stage IV (severe): (6) Hypertensive urgency: (7) E. coli UTI: Final Diagnosis Final Discharge Diagnosis: Acute hyperkalemia and MEAGHAN Summary Hospital Course Hospital course: 1) Chronic renal insufficiency: (2) Near syncope: (3) Diabetes mellitus: (4) Acute hyperkalemia: (5) Chronic kidney disease, stage IV (severe): (6) Hypertensive urgency: (7) E. coli UTI: This is a 74-year-old male with significant past medical history of hypertension, CKD stage IV, history of CAD status post stent, diabetes, hyperlipidemia who was admitted here for hyperkalemia on the lab work with hypertensive urgency which was well-controlled and was discharged today. His daughter picked him up and while he was driving back he complained of having some nausea vomiting and lightheadedness and ask her to bring him back to ED. In the ED he was found to be hypertensive. Lab work shows no leukocytosis with stable hemoglobin. Potassium is slightly up to 5.5 from 4.9 and creatinine is uptrending and is 3.25 today. His liver enzymes are unremarkable. Patient got a bolus of IV fluid with Zofran and Lokelma in the ED. during the admission patient was also started on ceftriaxone for E. coli UTI which was pansensitive which was switched to levofloxacin for concern of MEAGHAN. During his hospital admission his symptoms improved. His potassium is down to 4.2. 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 He is also recommended low potassium diet. He has completed 5-day course of antibiotics during this and last Hospital admission Condition Condition at Discharge: Stable Time Spent with Patient Time spent providing/coordinating discharge services (# min): 38 Discharge Plan Discharge Plan Patient Disposition: Home Activity: No Activity Restriction Diet: Renal and Other Comment: Low potassium diet Instructions: Know your Meds Prescriptions: New clonidine HCl 0.1 mg Tablet 0.1 mg PO Q12HR 60 Days Qty: 120 0RF Continued ferrous sulfate 325 mg (65 mg iron) tablet See Rx Instructions .ROUTE .COMPLEX Qty: 90 0RF Dose Instruction: TAKE 1 TABLET EVERY MORNING Rx Instructions: TAKE 1 TABLET EVERY MORNING cyclobenzaprine 10 mg tablet See Rx Instructions .ROUTE .COMPLEX Qty: 30 2RF Dose Instruction: TAKE 1 TABLET BY MOUTH DAILY AT BEDTIME NEEDED FOR BACK SPASMS Rx Instructions: TAKE 1 TABLET BY MOUTH DAILY AT BEDTIME NEEDED FOR BACK SPASMS nitroglycerin 0.4 mg Tablet, Sublingual 0.4 mg Sublingual Q5M PRN (Reason: Chest Pain) 30 Days Qty: 30 2RF Centrum 9 mg iron/ 15 mL (15 mL) Liquid 15 ml PO DAILY atorvastatin 20 mg Tablet 20 mg PO QHS Patient Comments: 20mg filled outpatient, has always received 80mg at this facility with good effect isosorbide mononitrate 30 mg tablet extended release [...] Further refills, or dose adjustment, per PCP furosemide 40 mg tablet 40 mg PO DAILY pantoprazole 40 mg tablet,delayed release (DR/EC) 40 mg PO DAILY Patient Comments: per pt is taking Pepcid 20 mg daily not this glipizide 5 mg tablet 5 mg PO DAILY Patient Comments: pt is no longer taking this med per cetirizine 10 mg tablet 10 mg PO BID famotidine 20 mg tablet 20 mg PO DAILY gabapentin 300 mg capsule 300 mg PO BID insulin glargine [Lantus Solostar U-100 Insulin] 100 unit/mL (3 mL) insulin pen 10 unit subcut BID hydralazine 100 mg tablet 100 mg PO TID ergocalciferol (vitamin D2) 1,250 mcg (50,000 unit) capsule 1,250 mcg PO QWEEK Qty: 14 1RF Patient Comments: tuesdays Discontinued amoxicillin-pot clavulanate [Augmentin] 500-125 mg tablet 1 tab PO Q8HR 5 Days Qty: 15 0RF clonidine HCl 0.2 mg tablet 0.2 mg PO Q12HR Qty: 60 0RF Other Ambulatory Orders: Basic Metabolic Panel (Routine) Timeframe: 20241012 Location: Determined by Patient Ordered By: Tito Martinez Basic Metabolic Panel (Routine) Timeframe: 3 Days Location: Determined by Patient Ordered By: Matheus Robison Follow Up: Nette Holden MD [Active Staff] - 12/20/24 1:00 pm (Please keep your appointment as scheduled.) Lolita Adorno DO [Primary Care Provider] - 10/12/24 11:00 am (Post hospital appointment. Please call to reschedule if needed.) Exam Physical Exam Vital Signs: Temp Pulse Resp BP Pulse Ox O2 Del Method 97.3 F L 66 18 126/68 95 Room Air 10/08/24 07:37 10/08/24 07:37 10/08/24 07:37 10/08/24 07:37 10/08/24 07:37 10/08/24 07:37 Narrative: General: Awake alert, no acute distress HEENT: head atraumatic, normocephalic, moist mucous membranes Neck: supple no masses, no lymphadenopathy CVS: regular rate and rhythm, no murmurs or gallops Respiratory: clear to auscultation bilaterally, no wheezing or crackles, symmetric expansion GI: soft, nondistended, nontender, positive bowel sounds with no organomegaly Extremity: moves all extremities, no restrictions of movements, no calf tenderness Neuro: AOx3, CN II-VII intact. Moves all extremities in all planes of motion. Skin: intact no rashes or lesions Diagnostic Studies Completed and Pending Studies Pending studies at discharge: 10/09/24 05:00 Complete Blood Count Auto Diff IN AM Comprehensive Metabolic Panel [CHEM] IN AM 10/10/24 05:00 Complete Blood Count Auto Diff IN AM Comprehensive Metabolic Panel [CHEM] IN AM 10/11/24 05:00 Complete Blood Count Auto Diff IN AM 10/12/24 05:00 Complete Blood Count Auto Diff IN AM 10/13/24 05:00 Complete Blood Count Auto Diff IN AM 10/14/24 05:00 Complete Blood Count Auto Diff IN AM 10/15/24 05:00 Complete Blood Count Auto Diff IN AM 10/16/24 05:00 Complete Blood Count Auto Diff IN AM Labs on day of discharge: 10/08/24 11:13: POC Glucose 246 10/08/24 06:33: POC Glucose 70 10/08/24 05:51: Corrected WBC 7.5, Uncorrected WBC Count 7.5, RBC 4.01, Hgb 10.9 L, Hct 33.0 L, MCV82.3 L, MCH 27.2 L, MCHC 33.1, RDW 13.4, Plt Count 188, MPV 8.3, Neut % (Auto) 49.3, Lymph % (Auto)34.9, Kleberg % (Auto) 12.6, Eos % (Auto) 2.7, Baso % (Auto) 0.5, Nucleat RBC Rel Count 0.1, Neut # (Auto) 3.7, Lymph # (Auto) 2.6, [place] # (Auto) 0.9 H, Eos # (Auto) 0.2, Baso # (Auto) 0.0, PHA Creatinine Clear 20.20, Sodium 137, Potassium 4.2, Chloride 104, Carbon Dioxide 24.1, Anion Gap 13.1, BUN 63H, Creatinine 3.16 H, Est GFR (CKD-EPI) 19.856, Glucose 57 L, Calcium 8.7, Total Bilirubin 0.5, AST12 L, ALT 11, Alkaline Phosphatase 84, Total Protein 5.9 L, Albumin 3.6, Globulin 2.3, Albumin/Globulin Ratio 1.6 10/07/24 20:34: POC Glucose 188 10/07/24 16:21: POC Glucose 134 Documented By: Matheus Robison MD 10/08/24 1230 Signed By: 10/08/24 1235 [facility]01-02-2025 Progress note Author Matheus Robison [facility] Note Date/Time October 07, 2024 1: 17pm [facility] [address] [place] [address] Hospitalist Progress Note Signed Patient: Gage Lugo MR#: [id number] : 1950 Acct:[id number] Age/Sex: 74 / M Adm Date: 5 Loc: Room: [address] [place] [address] Type: ADM IN Attending Dr: Matheus Robison MD Copies to: ~ Date of Service: 10/07/2024 Subjective Subjective Narrative: Patient is lying in the bed comfortably and denies any complaints. Denies any nausea vomiting or any chest pain or shortness of breath. Potassium was 5.1. Creatinine is 3.09 and trending down. Magnesium was 1.6 and replaced. Blood pressure 117/63 mmHg Exam Physical Exam Vital Signs: Temp Pulse Resp BP Pulse Ox O2 Del Method 97.6 F 71 18 113/68 97 Room Air 10/07/24 12:00 10/07/24 12:10/07/24 12:10/07/24 12:00 10/07/24 12:10/07/24 12:00 Narrative: General: Awake alert, no acute distress HEENT: head atraumatic, normocephalic, moist mucous membranes Neck: supple no masses, no lymphadenopathy CVS: regular rate and rhythm, no murmurs or gallops Respiratory: clear to auscultation bilaterally, no wheezing or crackles, symmetric expansion GI: soft, nondistended, nontender, positive bowel sounds with no organomegaly Extremity: moves all extremities, no restrictions of movements, no calf tenderness Neuro: AOx3, CN II-VII intact. Moves all extremities in all planes of motion. Skin: intact no rashes or lesions Objective Lab Results 10/07/24 05:07 10/07/24 05:07 Microbiology Results Microbiology 10/06/24 16:39 Urine - Clean-Voided Midstream Urine Culture - Preliminary <9,000 colonies/ml mixed bacterial skin contaminants 1 Day Meds Allergies and Active Meds Allergies aspirin Allergy (Unknown, Verified 10/06/24 15:19) Swelling of Lip/Tongue/Throat, lips turn blue if takes 2 oxycodone (From Percocet) Allergy (Unknown, Verified 10/06/24 15:19) Swelling of Lip/Tongue/Throat, swelling of throat amlodipine Adverse Reaction (Verified 10/06/24 15:19) Edema Active Meds: Active Medications Generic Name Dose Route Start Last Admin Trade Name Freq PRN Reason Stop Dose Admin Acetaminophen 650 mg 10/06/24 17:30 Acetaminophen 325 Mg Tablet PO 10/06/25 17:29 Q6HR PRN Pain Scale 1 - 3 or fever Aspirin 81 mg 10/07/24 09:00 10/07/24 08:10 Aspirin 81 Mg Tab.Chew PO 10/07/25 08:59 81 mg QAM VANE Administration Atorvastatin Calcium 20 mg 10/06/24 22:00 10/06/24 21:29 Atorvastatin 20 Mg Tablet PO 10/06/25 21:59 20 mg QHS VANE Administration Carvedilol 25 mg 10/07/24 08:00 10/07/24 08:10 Carvedilol 25 Mg Tablet PO 10/07/25 07:59 25 mg BID.WITH.MEALS VANE Administration Clonidine HCl 0.1 mg 10/07/24 09:00 10/07/24 09:45 Clonidine 0.1 Mg Tablet PO 10/07/25 08:59 Not Given Q12HR VANE Cyanocobalamin 1,000 mcg 10/07/24 09:00 10/07/24 08:10 Cyanocobalamin 1,000 Mcg Tablet PO 10/07/25 08:59 1,000 mcg QAM VAEN Administration Cyclobenzaprine HCl 10 mg 10/06/24 17:12 Cyclobenzaprine 10 Mg Tablet PO 10/06/25 21:59 QHS PRN spasms Dextrose 0 gm 10/06/24 17:23 Dextrose 50% In Water 25 Gm/50 Ml Syringe IV-PUSH 10/06/25 17:22 PRN PRN Hypoglycemia Enoxaparin Sodium 30 mg 10/07/24 10:00 10/07/24 09:45 Enoxaparin 30 Mg/0.3 Ml Syringe SUBCUT 10/07/25 09:59 30 mg DAILY@10 VANE Administration Ergocalciferol 1,250 mcg 10/12/24 09:00 Ergocalciferol 1,250 Mcg (50,000 Units) Capsule PO 10/12/25 08:59 Tu@0900 VANE Ferrous Sulfate 324 mg 10/07/24 09:00 10/07/24 08:10 Ferrous Sulfate 324 Mg Tablet. PO 10/07/25 08:59 324 mg DAILY VANE Administration Gabapentin 300 mg 10/06/24 21:00 10/07/24 08:09 Gabapentin 300 Mg Capsule PO 10/06/25 20:59 300 mg BID VANE Administration Glucose 0 gm 10/06/24 17:23 Dextrose 40% Gel 15 Gm Tube PO 10/06/25 17:22 PRN PRN Hypoglycemia Hydralazine HCl 100 mg 10/06/24 22:00 10/07/24 08:10 Hydralazine 50 Mg Tablet PO 10/06/25 21:59 100 mg TID VANE Administration Levofloxacin 500 mg in 100 mls @ 100 mls/hr 10/08/24 18:30 Levaquin IV Q48H VANE Insulin Aspart 0 units 10/06/24 22:00 10/07/24 11:54 Insulin Aspart 300 Units/3 Ml SUBCUT 10/06/25 21:59 1 units TID.WM.HS VANE Administration Protocol Insulin Glargine 10 units 10/06/24 21:00 10/07/24 08:11 Insulin Glargine 300 Units/3 Ml Insuln.Pen SUBCUT 10/06/25 20:59 10 units BID VANE Administration Isosorbide Mononitrate 30 mg 10/07/24 09:00 10/07/24 08:09 Isosorbide Mononitrate 24hr Er 30 Mg Tab.Er.24h PO 10/07/25 08:59 30 mg QAM VANE Administration Loratadine 10 mg 10/06/24 21:00 10/07/24 08:09 Loratadine 10 Mg Tablet PO 10/06/25 20:59 10 mg BID VANE Administration Magnesium Oxide 400 mg 10/07/24 10:30 10/07/24 10:11 Magnesium Oxide 400 Mg Tablet PO 10/09/24 10:29 400 mg BID VANE Administration Multivitamins 1 tab 10/07/24 09:00 10/07/24 08:10 Multivitamin 1 Tab Tablet PO 10/07/25 08:59 1 tab DAILY VANE Administration Nitroglycerin 0.4 mg 10/06/24 17:12 Nitroglycerin 0.4 Mg Tab.Subl SUBLINGUAL 10/06/25 17:11 Q5M PRN Chest Pain Ondansetron HCl 4 mg 10/06/24 17:18 Ondansetron 4 Mg/2 Ml Vial IV-PUSH 10/06/25 17:17 Q8H PRN Nausea And Vomiting Sodium Chloride 0 ml 10/06/24 15:19 10/06/24 21:34 Sodium Chloride 0.9 % 10 Ml Syringe IV-PUSH 10/06/25 15:18 10 ml PRN PRN Administration Flush Sodium Zirconium Cyclosilicate 10 gm 10/07/24 09:00 10/07/24 09:45 Sodium Zirconium Cyclosilicate 10 Gm Powd.Pack PO 10/07/25 08:59 10 gm DAILY VANE Administration Protocol A&P - Hospitalist Assessment/Plan (1) Chronic renal insufficiency: (2) Near syncope: (3) Diabetes mellitus: (4) Acute hyperkalemia: (5) Chronic kidney disease, stage IV (severe): (6) Hypertensive urgency: (7) E. coli UTI: Plan This is a 74-year-old male with significant past medical history of hypertension, CKD stage IV, history of CAD status post stent, diabetes, hyperlipidemia who was admitted here for hyperkalemia on the lab work with hypertensive urgency which was well-controlled and was discharged today. His daughter picked him up and while he was driving back he complained of having some nausea vomiting and lightheadedness and ask her to bring him back to ED. In the ED he was found to be hypertensive. Lab work shows no leukocytosis with stable hemoglobin. Potassium is slightly up to 5.5 from 4.9 and creatinine is uptrending and is 3.25 today. His liver enzymes are unremarkable. Patient got a bolus of IV fluid with Zofran and Lokelma in the ED. during the admission patient was also started on ceftriaxone for E. coli UTI which was pansensitive which was switched to levofloxacin for concern of MEAGHAN. Plan: -Admit in the regular nursing floor with telemetry -Continue to monitor blood pressure and lab work -Monitor urine output -Continue POA medication-aspirin, atorvastatin, carvedilol, clonidine, vitamin B, vitamin D, iron supplement, hydralazine, insulin glargine 10 units twice daily with sliding scale, Imdur -Nephrology consulted-appreciate recommendation-recommended to reduce clonidine to 0.1 mg twice a day and also started on Lokelma and low potassium diet. -Continue on levofloxacin-will give for 2 more days for total of 5 days. -Replace magnesium Full code -DVT prophylaxis with Lovenox Documented By: Matheus Robison MD 10/07/24 1312 Signed By: <Electronically signed by Matheus Robison MD> 10/07/24 1317 [facility] Work Phone: 1(730) 304-203901-02-2025 Progress note Author Tito Martinez [facility] Note Date/Time October 07, 2024 12 :56pm [facility] [address] [place] [address] Nephrology Progress Note Signed Patient: Gage Lugo MR#: [id number] : 1950 Acct:[id number] Age/Sex: 74 / M Adm Date: 5 Loc: Room: [address] [place] [address] Type: ADM IN Attending Dr: Matheus Robison MD Copies to: ~ Date of Service: 10/07/2024 Subjective Subjective Narrative: Narrative: 74-year-old male patient past medical history of chronic kidney disease stage IVfollows with Dr. Holden in the renal office, history of hyperkalemia, diabetes and hypertension, coronary disease status post PCI in the past. Patient was sent to the emergency room by his PCP for labs showing hyperkalemia potassium 6.6. In the emergency room potassium was found to be slightly better at 6.1. EKG did not show peaked T wave patient was treated medically with Lokelma, insulin and 1 dose of Lasix. Lab also showed creatinine 2.6 mg deciliter which is close to lab from last month of 2.4 mg deciliter I reviewed the patient's home medications. He is on isosorbide mononitrate, hydralazine, Lasix, and Aldactone for hypertension management. Patient stated he has been compliant with low potassium diet Systolic blood pressure when he presented to the hospital was elevated at 200. Patient was given 1 dose of labetalol. Blood pressure this morning 154/82 Patient has no complaint. Denied NSAID use. He stated his blood pressure has been elevated at home. He does monitor blood pressure twice daily Interval history: Patient was discharged yesterday with stable blood pressure. While driving backhome patient started to have nausea vomiting and dizziness. Patient reported back to the emergency room where he found to have creatinine 3.2 and potassium 5.5 along with elevated blood pressure. Patient was admitted. Patient was given Lokelma 1 dose. Patient also was found to have UTI and started on ceftriaxone Repeated lab this morning showed creatinine better at 3.0 and potassium down to 5.1. Blood pressure is well-controlled. Patient remains on hydralazine, clonidine, Coreg and isosorbide monitor rate. Patient has no complaint today. Patient was given IV bolus yesterday in the emergency room due to worsening kidney function. Currently off IV fluid Exam Physical Exam Vital Signs: Temp Pulse Resp BP Pulse Ox O2 Del Method 97.6 F 71 18 113/68 97 Room Air 10/07/24 12:10/07/24 12:10/07/24 12:10/07/24 12:10/07/24 12:10/07/24 12:00 Narrative: General: No acute distress Head :atraumatic normocephalic Eyes: PERRLA. Neck: no JVD no bruit. Heart: S1-S2. RRR Respiratory: Clear to auscultation. No wheezing. No crackles Abdomen: Soft, positive bowel sounds,no tenderness. Neurology: Awake alert oriented x3. No focal deficits Extremity. No cyanosis. No edema Skin: No skin rash Objective Intake and Output I&O: Intake & Output 12/10/05/24 10/06/24 10/07/24 23:59 23:59 23:59 23:59 Intake Total 500 / 500 500 / 500 Output Total 600 / 600 Balance -100 / -100 500 / 500 Weight 80 kg 80 kg Meds and Allergies Meds: Active Medications Acetaminophen (Acetaminophen 325 Mg Tablet) 650 mg PO Q6HR PRN PRN Reason: Pain Scale 1 - 3 or fever Stop: 10/06/25 17:29 Aspirin (Aspirin 81 Mg Tab.Chew) [facility] [place]: 10/07/25 08:59 Last Admin: 10/07/24 08:10 Dose: 81 mg Atorvastatin Calcium (Atorvastatin 20 Mg Tablet) 20 mg PO QHS [facility] Stop: 10/06/25 21:59 Last Admin: 10/06/24 21:29 Dose: 20 mg Carvedilol (Carvedilol 25 Mg Tablet) 25 mg PO BID.WITH.MEALS [facility] Stop: 10/07/25 07:59 Last Admin: 10/07/24 08:10 Dose: 25 mg Clonidine HCl (Clonidine 0.1 Mg Tablet) 0.1 mg PO Q12HR [facility] Stop: 10/07/25 08:59 Last Admin: 10/07/24 09:45 Dose: Not Given Cyanocobalamin (Cyanocobalamin 1,000 Mcg Tablet) 1,000 mcg PO QAM [facility] Stop: 10/07/25 08:59 Last Admin: 10/07/24 08:10 Dose: 1,000 mcg Cyclobenzaprine HCl (Cyclobenzaprine 10 Mg Tablet) 10 mg PO QHS PRN PRN Reason: spasms Stop: 10/06/25 21:59 Dextrose (Dextrose 50% In Water 25 Gm/50 Ml Syringe) 0 gm IV-PUSH PRN PRN PRN Reason: Hypoglycemia Stop: 10/06/25 17:22 Enoxaparin Sodium (Enoxaparin 30 Mg/0.3 Ml Syringe) 30 mg SUBCUT DAILY@10 [facility] Stop: 10/07/25 09:59 Last Admin: 10/07/24 09:45 Dose: 30 mg Ergocalciferol (Ergocalciferol 1,250 Mcg (50,000 Units) Capsule) 1,250 mcg PO Tu@0900 [facility] Stop: 10/12/25 08:59 Ferrous Sulfate (Ferrous Sulfate 324 Mg Tablet.Dr) 324 mg PO DAILY [facility] Stop: 10/07/25 08:59 Last Admin: 10/07/24 08:10 Dose: 324 mg Gabapentin (Gabapentin 300 Mg Capsule) 300 mg PO BID [facility] Stop: 10/06/25 20:59 Last Admin: 10/07/24 08:09 Dose: 300 mg Glucose (Dextrose 40% Gel 15 Gm Tube) 0 gm PO PRN PRN PRN Reason: Hypoglycemia Stop: 10/06/25 17:22 Hydralazine HCl (Hydralazine 50 Mg Tablet) 100 mg PO TID [facility] Stop: 10/06/25 21:59 Last Admin: 10/07/24 08:10 Dose: 100 mg Levofloxacin (Levaquin) 500 mg in 100 mls @ 100 mls/hr IV Q48H [facility] Insulin Aspart (Insulin Aspart 300 Units/3 Ml) 0 units SUBCUT TID.WM.HS [facility]; Protocol Stop: 10/06/25 21:59 Last Admin: 10/07/24 11:54 Dose: 1 units Insulin Glargine (Insulin Glargine 300 Units/3 Ml Insuln.Pen) 10 units SUBCUT BID [facility] Stop: 10/06/25 20:59 Last Admin: 10/07/24 08:11 Dose: 10 units Isosorbide Mononitrate (Isosorbide Mononitrate 24hr Er 30 Mg Tab.Er.24h) 30 mg PO QAM [facility] Stop: 10/07/25 08:59 Last Admin: 10/07/24 08:09 Dose: 30 mg Loratadine (Loratadine 10 Mg Tablet) 10 mg PO BID [facility] Stop: 10/06/25 20:59 Last Admin: 10/07/24 08:09 Dose: 10 mg Magnesium Oxide (Magnesium Oxide 400 Mg Tablet) 400 mg PO BID [facility] Stop: 10/09/24 10:29 Last Admin: 10/07/24 10:11 Dose: 400 mg Multivitamins (Multivitamin 1 Tab Tablet) 1 tab PO DAILY [facility] Stop: 10/07/25 08:59 Last Admin: 10/07/24 08:10 Dose: 1 tab Nitroglycerin (Nitroglycerin 0.4 Mg Tab.Subl) 0.4 mg SUBLINGUAL Q5M PRN PRN Reason: Chest Pain Stop: 10/06/25 17:11 Ondansetron HCl (Ondansetron 4 Mg/2 Ml Vial) 4 mg IV-PUSH Q8H PRN PRN Reason: Nausea And Vomiting Stop: 10/06/25 17:17 Sodium Chloride (Sodium Chloride 0.9 % 10 Ml Syringe) 0 ml IV-PUSH PRN PRN PRN Reason: Flush Stop: 10/06/25 15:18 Last Admin: 10/06/24 21:34 Dose: 10 ml Sodium Zirconium Cyclosilicate (Sodium Zirconium Cyclosilicate 10 Gm Powd.Pack) 10 gm PO DAILY VANE; Protocol Stop: 10/07/25 08:59 Last Admin: 10/07/24 09:45 Dose: 10 gm Allergies aspirin Allergy (Unknown, Verified 10/06/24 15:19) Swelling of Lip/Tongue/Throat, lips turn blue if takes 2 oxycodone (From Percocet) Allergy (Unknown, Verified 10/06/24 15:19) Swelling of Lip/Tongue/Throat, swelling of throat amlodipine Adverse Reaction (Verified 10/06/24 15:19) Edema Results - Nephrology Labs 10/07/24 05:07 10/07/24 05:07 Labs: 10/06/24 10/06/24 10/07/24 15:09 16:39 05:07 BUN 55 H 58 H Creatinine 3.25 H 3.09 H Phosphorus 4.4 Albumin 3.7 3.5 Urine Color Light-yellow Urine Appearance Clear Urine pH 5.0 Ur Specific [place] 1.010 Urine Protein Trace H Urine Glucose (UA) Normal Urine Ketones Negative Urine Occult Blood Negative Urine Nitrite Negative Ur Leukocyte Esterase 4+ H Urine RBC 3-4 Urine WBC 20-49 H Urine Bacteria Rare Radiology Impressions Impressions - last 24 hours: Any impression(s) listed above is documentation that was entered by the reading physician into a diagnostic report(s) for Gage Lugo. I have reviewed the report(s) and am incorporating any findings in the treatment plan of this patient where applicable. A&P - Nephrology Assessment/Plan (1) Acute kidney injury superimposed on CKD: Assessment/Problem Details: Acute kidney injury is likely from prerenal related to better control of blood pressure along being on Lasix l. Kidney function improved with the fluid bolus yesterday. Creatinine peaked at 3.3. Creatinine this morning 3.0. Baseline creatinine around 2.4 mg deciliter. Patient follows with Dr. 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 Patient treated with Lokelma during last admission since yesterday for potassium 5.5. Potassium this morning 5.1 (3) Hypertensive chronic kidney disease with stage 1 through stage 4 chronic kidney disease, or unspecified chronic kidney disease: Assessment/Problem Details: Blood pressure is well-controlled with the current blood pressure medications. (4) Diabetes: Assessment/Problem Details: Patient on glargine insulin twice a day along with insulin as part with meal. Diabetes seems well-controlled this morning Plan * Will reduce clonidine dose to 0.1 mg twice daily * Will continue same other blood pressure medications * Will start Lokelma 10 g p.o. daily * Low potassium diet * Keep blood glucose under good control to avoid osmotic diuresis and worsening hyperkalemia * Patient is on ceftriaxone for UTI treatment.. Urine culture on October 04 grew E. coli * Check CBC renal function panel in a.m. Documented By: Tito Martinez MD 10/07/24 1250 Signed By: <Electronically signed by Tito Martinez MD> 10/07/24 1256 [facility] Work Phone: 1(521) 707-459501-02-20[place] [address] Hospitalist Progress Note Signed Patient: Gage Lugo MR#: [id number] : 1950 Acct:[id number] Age/Sex: 74 / M Adm Date: 5 Loc: Room: [address] [place] [address] Type: ADM IN Attending Dr: Matheus Robison MD Copies to: ~ Date of Service: 10/07/2024 Subjective Subjective Narrative: Patient is lying in the bed comfortably and denies any complaints. Denies any nausea vomiting or any chest pain or shortness of breath. Potassium was 5.1. Creatinine is 3.09 and trending down. Magnesium was 1.6 and replaced. Blood pressure 117/63 mmHg Exam Physical Exam Vital Signs: Temp Pulse Resp BP Pulse Ox O2 Del Method 97.6 F 71 18 113/68 97 Room Air 10/07/24 12:00 10/07/24 12:00 10/07/24 12:00 10/07/24 12:00 10/07/24 12:00 10/07/24 12:00 Narrative: General: Awake alert, no acute distress HEENT: head atraumatic, normocephalic, moist mucous membranes Neck: supple no masses, no lymphadenopathy CVS: regular rate and rhythm, no murmurs or gallops Respiratory: clear to auscultation bilaterally, no wheezing or crackles, symmetric expansion GI: soft, nondistended, nontender, positive bowel sounds with no organomegaly Extremity: moves all extremities, no restrictions of movements, no calf tenderness Neuro: AOx3, CN II-VII intact. Moves all extremities in all planes of motion. Skin: intact no rashes or lesions Objective Lab Results 10/07/24 05:07 10/07/24 05:07 Microbiology Results Microbiology 10/06/24 16:39 Urine - Clean-Voided Midstream Urine Culture - Preliminary <9,000 colonies/ml mixed bacterial skin contaminants 1 Day Meds Allergies and Active Meds Allergies aspirin Allergy (Unknown, Verified 10/06/24 15:19) Swelling of Lip/Tongue/Throat, lips turn blue if takes 2 oxycodone (From Percocet) Allergy (Unknown, Verified 10/06/24 15:19) Swelling of Lip/Tongue/Throat, swelling of throat amlodipine Adverse Reaction (Verified 10/06/24 15:19) Edema Active Meds: Active Medications Generic Name Dose Route Start Last Admin Trade Name Freq PRN Reason Stop Dose Admin Acetaminophen 650 mg 10/06/24 17:30 Acetaminophen 325 Mg Tablet PO 10/06/25 17:29 Q6HR PRN Pain Scale 1 - 3 or fever Aspirin 81 mg 10/07/24 09:00 10/07/24 08:10 Aspirin 81 Mg Tab.Chew PO 10/07/25 08:59 81 mg QAM VANE Administration Atorvastatin Calcium 20 mg 10/06/24 22:00 10/06/24 21:29 Atorvastatin 20 Mg Tablet PO 10/06/25 21:59 20 mg QHS VANE Administration Carvedilol 25 mg 10/07/24 08:00 10/07/24 08:10 Carvedilol 25 Mg Tablet PO 10/07/25 07:59 25 mg BID.WITH.MEALS VANE Administration Clonidine HCl 0.1 mg 10/07/24 09:00 10/07/24 09:45 Clonidine 0.1 Mg Tablet PO 10/07/25 08:59 Not Given Q12HR VANE Cyanocobalamin 1,000 mcg 10/07/24 09:00 10/07/24 08:10 Cyanocobalamin 1,000 Mcg Tablet PO 10/07/25 08:59 1,000 mcg QAM VANE Administration Cyclobenzaprine HCl 10 mg 10/06/24 17:12 Cyclobenzaprine 10 Mg Tablet PO 10/06/25 21:59 QHS PRN spasms Dextrose 0 gm 10/06/24 17:23 Dextrose 50% In Water 25 Gm/50 Ml Syringe IV-PUSH 10/06/25 17:22 PRN PRN Hypoglycemia Enoxaparin Sodium 30 mg 10/07/24 10:00 10/07/24 09:45 Enoxaparin 30 Mg/0.3 Ml Syringe SUBCUT 10/07/25 09:59 30 mg DAILY@10 VANE Administration Ergocalciferol 1,250 mcg 10/12/24 09:00 Ergocalciferol 1,250 Mcg (50,000 Units) Capsule PO 10/12/25 08:59 Tu@0900 [facility]ANE Ferrous Sulfate 324 mg 10/07/24 09:00 10/07/24 08:10 Ferrous Sulfate 324 Mg Tablet.Dr PO 10/07/25 08:59 324 mg DAILY VANE Administration Gabapentin 300 mg 10/06/24 21:00 10/07/24 08:09 Gabapentin 300 Mg Capsule PO 10/06/25 20:59 300 mg BID VANE Administration Glucose 0 gm 10/06/24 17:23 Dextrose 40% Gel 15 Gm Tube PO 10/06/25 17:22 PRN PRN Hypoglycemia Hydralazine HCl 100 mg 10/06/24 22:00 10/07/24 08:10 Hydralazine 50 Mg Tablet PO 10/06/25 21:59 100 mg TID VANE Administration Levofloxacin 500 mg in 100 mls @ 100 mls/hr 10/08/24 18:30 Levaquin IV Q48H VANE Insulin Aspart 0 units 10/06/24 22:00 10/07/24 11:54 Insulin Aspart 300 Units/3 Ml SUBCUT 10/06/25 21:59 1 units TID.WM.HS VANE Administration Protocol Insulin Glargine 10 units 10/06/24 21:00 10/07/24 08:11 Insulin Glargine 300 Units/3 Ml Insuln.Pen SUBCUT 10/06/25 20:59 10 units BID VANE Administration Isosorbide Mononitrate 30 mg 10/07/24 09:00 10/07/24 08:09 Isosorbide Mononitrate 24hr Er 30 Mg Tab.Er.24h PO 10/07/25 08:59 30 mg QAM VANE Administration Loratadine 10 mg 10/06/24 21:00 10/07/24 08:09 Loratadine 10 Mg Tablet PO 10/06/25 20:59 10 mg BID VANE Administration Magnesium Oxide 400 mg 10/07/24 10:30 10/07/24 10:11 Magnesium Oxide 400 Mg Tablet PO 10/09/24 10:29 400 mg BID VANE Administration Multivitamins 1 tab 10/07/24 09:00 10/07/24 08:10 Multivitamin 1 Tab Tablet PO 10/07/25 08:59 1 tab DAILY VANE Administration Nitroglycerin 0.4 mg 10/06/24 17:12 Nitroglycerin 0.4 Mg Tab.Subl SUBLINGUAL 10/06/25 17:11 Q5M PRN Chest Pain Ondansetron HCl 4 mg 10/06/24 17:18 Ondansetron 4 Mg/2 Ml Vial IV-PUSH 10/06/25 17:17 Q8H PRN Nausea And Vomiting Sodium Chloride 0 ml 10/06/24 15:19 10/06/24 21:34 Sodium Chloride 0.9 % 10 Ml Syringe IV-PUSH 10/06/25 15:18 10 ml PRN PRN Administration Flush Sodium Zirconium Cyclosilicate 10 gm 10/07/24 09:00 10/07/24 09:45 Sodium Zirconium Cyclosilicate 10 Gm Powd.Pack PO 10/07/25 08:59 10 gm DAILY VANE Administration Protocol A&P - Hospitalist Assessment/Plan (1) Chronic renal insufficiency: (2) Near syncope: (3) Diabetes mellitus: (4) Acute hyperkalemia: (5) Chronic kidney disease, stage IV (severe): (6) Hypertensive urgency: (7) E. coli UTI: Plan This is a 74-year-old male with significant past medical history of hypertension, CKD stage IV, history of CAD status post stent, diabetes, hyperlipidemia who was admitted here for hyperkalemia on the lab work with hypertensive urgency which was well-controlled and was discharged today. His daughter picked him up and while he was driving back he complained of having some nausea vomiting and lightheadedness and ask her to bring him back to ED. In the ED he was found to be hypertensive. Lab work shows no leukocytosis with stable hemoglobin. Potassium is slightly up to 5.5 from 4.9 and creatinine is uptrending and is 3.25 today. His liver enzymes are unremarkable. Patient got a bolus of IV fluid with Zofran and Lokelma in the ED. during the admission patient was also started on ceftriaxone for E. coli UTI which was pansensitive which was switched to levofloxacin for concern of MEAGHAN. Plan: -Admit in the regular nursing floor with telemetry -Continue to monitor blood pressure and lab work -Monitor urine output -Continue POA medication-aspirin, atorvastatin, carvedilol, clonidine, vitamin B, vitamin D, iron supplement, hydralazine, insulin glargine 10 units twice daily with sliding scale, Imdur -Nephrology consulted-appreciate recommendation-recommended to reduce clonidine to 0.1 mg twice a day and also started on Lokelma and low potassium diet. -Continue on levofloxacin-will give for 2 more days for total of 5 days. -Replace magnesium Full code -DVT prophylaxis with Lovenox Documented By: Matheus Robison MD 10/07/24 1312 Signed By: 10/07/24 1317 [facility]01-02-2025 [place] [address] Nephrology Progress Note Signed Patient: Gage Lugo MR#: [id number] : 1950 Acct:[id number] Age/Sex: 74 / M Adm Date: 5 Loc: Room: [address] [place] [address] Type: ADM IN Attending Dr: Matheus Robison MD Copies to: ~ Date of Service: 10/07/2024 Subjective Subjective Narrative: Narrative: 74-year-old male patient past medical history of chronic kidney disease stage IVfollows with Dr. Holden in the renal office, history of hyperkalemia, diabetes and hypertension, coronary disease statuspost PCI in the past. Patient was sent to the emergency room by his PCP for labs showing hyperkalemia potassium 6.6. In the emergency room potassium was found to be slightly better at 6.1. EKG did not show peaked T wave patient was treated medically with Lokelma, insulin and 1 dose of Lasix. Lab also showed creatinine 2.6 mg deciliter which is close to lab from last month of 2.4 mg deciliter I reviewed the patient's home medications. He is on isosorbide mononitrate, hydralazine, Lasix, andAldactone for hypertension management. Patient stated he has been compliant with low potassium diet Systolic blood pressure when he presented to the hospital was elevated at 200. Patient was given 1 dose of labetalol. Blood pressure this morning 154/82 Patient has no complaint. Denied NSAID use. He stated his blood pressure has been elevated at home.He does monitor blood pressure twice daily Interval history: Patient was discharged yesterday with stable blood pressure. [place] [facility] patient startedto have nausea vomiting and dizziness. Patient reported back to the emergency room where he found to have creatinine 3.2 and potassium 5.5 along with elevated blood pressure. Patient was admitted. Patient was given Lokelma 1 dose. Patient also was found to have UTI and started on ceftriaxone Repeated lab this morning showed creatinine better at 3.0 and potassium down to 5.1. Blood pressureis well-controlled. Patient remains on hydralazine, clonidine, Coreg and isosorbide monitor rate. Patient has no complaint today. Patient was given IV bolus yesterday in the emergency room due to worsening kidney function. Currently off IV fluid Exam Physical Exam Vital Signs: Temp Pulse Resp BP Pulse Ox O2 Del Method 97.6 F 71 18 113/68 97 Room Air 10/07/24 12:10/07/24 12:00 10/07/24 12:00 10/07/24 12:00 10/07/24 12:10/07/24 12:00 Narrative: General: No acute distress Head :atraumatic normocephalic Eyes: PERRLA. Neck: no JVD no bruit. Heart: S1-S2. RRR Respiratory: Clear to auscultation. No wheezing. No crackles Abdomen: Soft, positive bowel sounds,no tenderness. Neurology: Awake alert oriented x3. No focal deficits Extremity. No cyanosis. No edema Skin: No skin rash Objective Intake and Output I&O: Intake & Output 10/04/24 10/05/24 10/06/24 10/07/24 23:59 23:59 23:59 23:59 Intake Total 500 / 500 500 / 500 Output Total 600 / 600 Balance -100 / -100 500 / 500 Weight 80 kg 80 kg Meds and Allergies Meds: Active Medications Acetaminophen (Acetaminophen 325 Mg Tablet) 650 mg PO Q6HR PRN PRN Reason: Pain Scale 1 - 3 or fever Stop: 10/06/25 17:29 Aspirin (Aspirin 81 Mg Tab.Chew) 81 mg PO [facility] Stop: 10/07/25 08:59 Last Admin: 10/07/24 08:10 Dose: 81 mg Atorvastatin Calcium (Atorvastatin 20 Mg Tablet) 20 mg PO QHS [facility] Stop: 10/06/25 21:59 Last Admin: 10/06/24 21:29 Dose: 20 mg Carvedilol (Carvedilol 25 Mg Tablet) 25 mg PO BID.WITH.MEALS [facility] Stop: 10/07/25 07:59 Last Admin: 10/07/24 08:10 Dose: 25 mg Clonidine HCl (Clonidine 0.1 Mg Tablet) 0.1 mg PO Q12HR [facility] Stop: 10/07/25 08:59 Last Admin: 10/07/24 09:45 Dose: Not Given Cyanocobalamin (Cyanocobalamin 1,000 Mcg Tablet) 1,000 mcg PO QAM [facility] Stop: 10/07/25 08:59 Last Admin: 10/07/24 08:10 Dose: 1,000 mcg Cyclobenzaprine HCl (Cyclobenzaprine 10 Mg Tablet) 10 mg PO QHS PRN PRN Reason: spasms Stop: 10/06/25 21:59 Dextrose (Dextrose 50% In Water 25 Gm/50 Ml Syringe) 0 gm IV-PUSH PRN PRN PRN Reason: Hypoglycemia Stop: 10/06/25 17:22 Enoxaparin Sodium (Enoxaparin 30 Mg/0.3 Ml Syringe) 30 mg SUBCUT DAILY@10 [facility] Stop: 10/07/25 09:59 Last Admin: 10/07/24 09:45 Dose: 30 mg Ergocalciferol (Ergocalciferol 1,250 Mcg (50,000 Units) Capsule) 1,250 mcg PO Tu@0900 [facility] Stop: 10/12/25 08:59 Ferrous Sulfate (Ferrous Sulfate 324 Mg Tablet.Dr) 324 mg PO DAILY [facility] Stop: 10/07/25 08:59 Last Admin: 10/07/24 08:10 Dose: 324 mg Gabapentin (Gabapentin 300 Mg Capsule) 300 mg PO BID [facility] Stop: 10/06/25 20:59 Last Admin: 10/07/24 08:09 Dose: 300 mg Glucose (Dextrose 40% Gel 15 Gm Tube) 0 gm PO PRN PRN PRN Reason: Hypoglycemia Stop: 10/06/25 17:22 Hydralazine HCl (Hydralazine 50 Mg Tablet) 100 mg PO TID [facility] Stop: 10/06/25 21:59 Last Admin: 10/07/24 08:10 Dose: 100 mg Levofloxacin (Levaquin) 500 mg in 100 mls @ 100 mls/hr IV Q48H [facility] Insulin Aspart (Insulin Aspart 300 Units/3 Ml) 0 units SUBCUT TID.WM.HS [facility]; Protocol Stop: 10/06/25 21:59 Last Admin: 10/07/24 11:54 Dose: 1 units Insulin Glargine (Insulin Glargine 300 Units/3 Ml Insuln.Pen) 10 units SUBCUT BID [facility] Stop: 10/06/25 20:59 Last Admin: 10/07/24 08:11 Dose: 10 units Isosorbide Mononitrate (Isosorbide Mononitrate 24hr Er 30 Mg Tab.Er.24h) 30 mg PO QAM [facility] Stop: 10/07/25 08:59 Last Admin: 10/07/24 08:09 Dose: 30 mg Loratadine (Loratadine 10 Mg Tablet) 10 mg PO BID [facility] Stop: 10/06/25 20:59 Last Admin: 10/07/24 08:09 Dose: 10 mg Magnesium Oxide (Magnesium Oxide 400 Mg Tablet) 400 mg PO BID [facility] Stop: 10/09/24 10:29 Last Admin: 10/07/24 10:11 Dose: 400 mg Multivitamins (Multivitamin 1 Tab Tablet) 1 tab PO DAILY [facility] Stop: 10/07/25 08:59 Last Admin: 10/07/24 08:10 Dose: 1 tab Nitroglycerin (Nitroglycerin 0.4 Mg Tab.Subl) 0.4 mg SUBLINGUAL Q5M PRN PRN Reason: Chest Pain Stop: 10/06/25 17:11 Ondansetron HCl (Ondansetron 4 Mg/2 Ml Vial) 4 mg IV-PUSH Q8H PRN PRN Reason: Nausea And Vomiting Stop: 10/06/25 17:17 Sodium Chloride (Sodium Chloride 0.9 % 10 Ml Syringe) 0 ml IV-PUSH PRN PRN PRN Reason: Flush Stop: 10/06/25 15:18 Last Admin: 10/06/24 21:34 Dose: 10 ml Sodium Zirconium Cyclosilicate (Sodium Zirconium Cyclosilicate 10 Gm Powd.Pack) 10 gm PO DAILY VANE;Protocol Stop: 10/07/25 08:59 Last Admin: 10/07/24 09:45 Dose: 10 gm Allergies aspirin Allergy (Unknown, Verified 10/06/24 15:19) Swelling of Lip/Tongue/Throat, lips turn blue if takes 2 oxycodone (From Percocet) Allergy (Unknown, Verified 10/06/24 15:19) Swelling of Lip/Tongue/Throat, swelling of throat amlodipine Adverse Reaction (Verified 10/06/24 15:19) Edema Results - Nephrology Labs 10/07/24 05:07 10/07/24 05:07 Labs: 10/06/24 10/06/24 10/07/24 15:09 16:39 05:07 BUN 55 H 58 H Creatinine 3.25 H 3.09 H Phosphorus 4.4 Albumin 3.7 3.5 Urine Color Light-yellow Urine Appearance Clear Urine pH 5.0 Ur Specific [place] 1.010 Urine Protein Trace H Urine Glucose (UA) Normal Urine Ketones Negative Urine Occult Blood Negative Urine Nitrite Negative Ur Leukocyte Esterase 4+ H Urine RBC 3-4 Urine WBC 20-49 H Urine Bacteria Rare Radiology Impressions Impressions - last 24 hours: Any impression(s) listed above is documentation that was entered by the reading physician into a diagnostic report(s) for Gage Young Lugo. I have reviewed the report(s) and am incorporating any findings in the treatment plan of this patient where applicable. A&P - Nephrology Assessment/Plan (1) Acute kidney injury superimposed on CKD: Assessment/Problem Details: Acute kidney injury is likely from prerenal related to better control of blood pressure along beingon Lasix l. Kidney function improved with the fluid bolus yesterday. Creatinine peaked at 3.3. Creatinine this morning 3.0. Baseline creatinine around 2.4 mg deciliter. Patient follows with Dr. 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 Patient treated with Lokelma during last admission since yesterday for potassium 5.5. Potassium this morning 5.1 (3) Hypertensive chronic kidney disease with stage 1 through stage 4 chronic kidney disease, or unspecified chronic kidney disease: Assessment/Problem Details: Blood pressure is well-controlled with the current blood pressure medications. (4) Diabetes: Assessment/Problem Details: Patient on glargine insulin twice a day along with insulin as part with meal. Diabetes seems well-controlled this morning Plan * Will reduce clonidine dose to 0.1 mg twice daily * Will continue same other blood pressure medications * Will start Lokelma 10 g p.o. daily * Low potassium diet * Keep blood glucose under good control to avoid osmotic diuresis and worsening hyperkalemia * Patient is on ceftriaxone for UTI treatment.. Urine culture on October 04 grew E. coli * Check CBC renal function panel in a.m. Documented By: Tito Martinez MD 10/07/24 1250 Signed By: 10/07/24 1256 [facility]01-01-2025 History and physical note Author Matheus Robison [facility] Note Date/Time October 06, 2024 5: 51pm [facility] EN[facility] [address] [place] [address] Hospitalist H&P Signed with Addenda Patient: Gage Lugo MR#: [id number] : 1950 Acct:[id number] Age/Sex: 74 / M Adm Date: 5 Loc: Room: [address] [place] [address] Type: ADM IN Attending Dr: Matheus Robison MD Copies to: MD Lolita Salinas DO~ ADDENDUM1 -Complicated UTI -Recent urinalysis suggestive of UTI with urine culture growing pansensitive E. coli. -Plan: -Patient started on levofloxacin 750 mg daily for total of 5 days. Addendum Documented By: Matheus Robison MD 10/06/241750 Addendum Signed By: <Electronically signed by Matheus Robison MD> 10/06/241750 HPI DATE OF EXAMINATION: 10/06/24 CHIEF COMPLAINT: Nausea vomiting and lightheadedness HISTORY OF PRESENT ILLNESS: This is a 74-year-old male with significant past medical history of hypertension, CKD stage IV, history of CAD status post stent, diabetes, hyperlipidemia who was admitted here for hyperkalemia on the lab work with hypertensive urgency which was well-controlled and was discharged today. His daughter picked him up and while he was driving back he complained of having some nausea vomiting and lightheadedness and ask her to bring him back to ED. In the ED he was found to be hypertensive. Lab work shows no leukocytosis with stable hemoglobin. Potassium is slightly up to 5.5 from 4.9 and creatinine is uptrending and is 3.25 today. His liver enzymes are unremarkable. Patient got a bolus of IV fluid with Zofran and Lokelma in the ED. Review of Systems Review of Systems All other systems reviewed & are negative unless noted below or in HPI [facility] Medical History (Updated 10/06/24 @ 17:38 by Matheus Robison MD) History of cataract Poor historian Smoker Kidney stone Myocardial infarct 2 STENTS Diabetes Hyperlipemia HTN (hypertension) Surgical History History of back surgery Neck History of orthopedic surgery 1st rib removed History of cardiac catheterization H/O heart artery stent Family History Sister Brain aneurysm Brother Myocardial infarction Mother Diabetes mellitus, type 2 Father Diabetes Mother Diabetes Presence of cardiac pacemaker Social History Smoking Status: Current every day smoker Tobacco Type: cigarettes Substance Use Type: None Meds Medications and Allergies Allergies acetaminophen (Percocet) Allergy (Unknown, Verified 10/06/24 15:19) swelling of throat aspirin Allergy (Unknown, Verified 10/06/24 15:19) Swelling of Lip/Tongue/Throat, lips turn blue if takes 2 oxycodone (From Percocet) Allergy (Unknown, Verified 10/06/24 15:19) Swelling of Lip/Tongue/Throat, swelling of throat amlodipine Adverse Reaction (Verified 10/06/24 15:19) Edema Home Medications nitroglycerin 0.4 mg sublingual tablet 0.4 mg sublingual Q5M PRN Chest Pain 30 days #30 tabs 08/26/17 [Rx Confirmed 10/06/24] extrdtzj-irjq-lvccjgv gluconate 9 mg iron/15 mL (15 mL) oral liquid (Centrum) 15ml PO DAILY 08/08/20 [History Confirmed 10/06/24] atorvastatin 20 mg tablet 20 mg PO QHS 08/09/20 [History Confirmed 10/06/24] aspirin 81 mg chewable tablet 81 mg PO QAM 09/18/22 [History Confirmed 10/06/24] cyanocobalamin (vitamin B-12) 1,000 mcg tablet (Vitamin B-12) 1,000 mcg PO QAM 09/18/22 [History Confirmed 10/06/24] isosorbide mononitrate 30 mg tablet,extended release 24 hr 30 mg PO QAM 09/18/22[History Confirmed 10/06/24] carvedilol 25 mg tablet 25 mg PO BID.WITH.MEALS 30 days #60 tabs 10/06/22 [Rx Confirmed 10/06/24] insulin glargine 100 unit/mL (3 mL) subcutaneous pen (Lantus Solostar U-100 Insulin) 10 unit subcut BID 12/25/23 [History Confirmed 10/06/24] cetirizine 10 mg tablet 10 mg PO BID 07/23/24 [History Confirmed 10/06/24] famotidine 20 mg tablet 20 mg PO DAILY 07/23/24 [History Confirmed 10/06/24] gabapentin 300 mg capsule 300 mg PO BID 07/23/24 [History Confirmed 10/06/24] ergocalciferol (vitamin D2) 1,250 mcg (50,000 unit) capsule 1,250 mcg PO QWEEK #14 caps 08/30/24 [Rx Confirmed 10/06/24] hydralazine 100 mg tablet 100 mg PO TID 08/30/24 [History Confirmed 10/06/24] cyclobenzaprine 10 mg tablet See Rx Instructions .Route .COMPLEX #30 tabs 10/04/24 [Rx Confirmed 10/06/24] ferrous sulfate 325 mg (65 mg iron) tablet See Rx Instructions .Route .COMPLEX #90 tabs 10/04/24 [Rx Confirmed 10/06/24] furosemide 40 mg tablet 40 mg PO DAILY 10/04/24 [History Confirmed 10/06/24] glipizide 5 mg tablet 5 mg PO DAILY 10/04/24 [History Confirmed 10/06/24] pantoprazole 40 mg tablet,delayed release 40 mg PO DAILY 10/04/24 [History Confirmed 10/06/24] amoxicillin 500 mg-potassium clavulanate 125 mg tablet (Augmentin) 1 tab PO Q8HR5 days #15 tabs 10/06/24 [Rx Confirmed 10/06/24] clonidine HCl 0.2 mg tablet 0.2 mg PO Q12HR #60 tabs 10/06/24 [Rx Confirmed 10/06/24] Exam Physical Exam Vital Signs: Temp Pulse Resp BP Pulse Ox O2 Del Method 97.7 F 77 18 159/76 H 97 Room Air 10/06/24 15:19 10/06/24 17:00 10/06/24 17:00 10/06/24 17:00 10/06/24 17:00 10/06/24 17:00 Narrative: General: Awake alert, no acute distress HEENT: head atraumatic, normocephalic, moist mucous membranes Neck: supple no masses, no lymphadenopathy CVS: regular rate and rhythm, no murmurs or gallops Respiratory: clear to auscultation bilaterally, no wheezing or crackles, symmetric expansion GI: soft, nondistended, nontender, positive bowel sounds with no organomegaly Extremity: moves all extremities, no restrictions of movements, no calf tenderness Neuro: AOx3, CN II-VII intact. Moves all extremities in all planes of motion. Skin: intact no rashes or lesions Results - Hospitalist H&P Lab Results Labs: Laboratory Last Values Corrected WBC 6.9 X10E3/uL (4.1-10.5) 10/06/24 15:09 Uncorrected WBC Count 6.9 x10E3/uL (4.1-10.5) 10/06/24 15:09 RBC 4.13 x10E6/uL (3.90-5.60) 10/06/24 15:09 Hgb 11.2 g/dL (13.0-17.0) L 10/06/24 15:09 Hct 34.3 % (38.8-50.0) L 10/06/24 15:09 MCV 83.1 fl (83.5-101) L 10/06/24 15:09 MCH 27.2 pg (27.5-35.2) L 10/06/24 15:09 MCHC 32.7 g/dL (32.5-35.6) 10/06/24 15:09 RDW 13.8 % (12.0-14.8) 10/06/24 15:09 Plt Count 182 x10E3/uL (150-450) 10/06/24 15:09 MPV 8.3 fl (6.6-10.1) 10/06/24 15:09 Neut % (Auto) 59.8 % (.) 10/06/24 15:09 Lymph % (Auto) 27.0 % (.) 10/06/24 15:09 Kleberg % (Auto) 9.9 % (.) 10/06/24 15:09 Eos % (Auto) 2.7 % (.) 10/06/24 15:09 Baso % (Auto) 0.6 % (.) 10/06/24 15:09 Nucleat RBC Rel Count 0.1 /100 WBC (0-0.5) 10/06/24 15:09 Neut # (Auto) 4.2 x10E3/uL (1.8-7.7) 10/06/24 15:09 Lymph # (Auto) 1.9 x10E3/uL (1.00-4.8) 10/06/24 15:09 [place] # (Auto) 0.7 x10E3/uL (0.0-0.8) 10/06/24 15:09 Eos # (Auto) 0.2 x10E3/uL (0.0-0.45) 10/06/24 15:09 Baso # (Auto) 0.0 x10E3/uL (0.0-0.2) 10/06/24 15:09 Monocyte Dist Width 17.85 % (0.00-20.00) 10/06/24 15:09 PHA Creatinine Clear 18.85 10/06/24 15:09 Sodium 133 mmol/L (136-145) L 10/06/24 15:09 Potassium 5.5 mmol/L (3.5-5.1) H 10/06/24 15:09 Chloride 101 mmol/L (98-107) 10/06/24 15:09 Carbon Dioxide 24.3 mmol/L (21.0-31.0) 10/06/24 15:09 Anion Gap 13.2 mEq/L (6.0-15.0) 10/06/24 15:09 BUN 55 mg/dL (7-25) H 10/06/24 15:09 Creatinine 3.25 mg/dL (0.70-1.30) H 10/06/24 15:09 Est GFR (CKD-EPI) 19.198 mL/Min 10/06/24 15:09 Glucose 240 mg/dL (70-100) H D 10/06/24 15:09 POC Glucose 225 mg/dl 10/06/24 16:41 Calcium 9.5 mg/dL (8.6-10.3) 10/06/24 15:09 Total Bilirubin 0.4 mg/dl (0.3-1.0) 10/06/24 15:09 AST 13 U/L (13-39) 10/06/24 15:09 ALT 14 U/L (7-52) 10/06/24 15:09 Alkaline Phosphatase 85 U/L (34-104) 10/06/24 15:09 Total Creatine Kinase 55 U/L (30-223) 10/06/24 15:09 Troponin I High Sens 14.0 pg/mL (0.0-20.0) 10/06/24 15:09 Total Protein 6.5 gm/dL (6.4-8.9) 10/06/24 15:09 Albumin 3.7 gm/dL (3.5-5.7) 10/06/24 15:09 Globulin 2.8 gm/dL 10/06/24 15:09 Albumin/Globulin Ratio 1.3 10/06/24 15:09 Urine Color Light-yellow (Yellow) 10/06/24 16:39 Urine Appearance Clear (Clear) 10/06/24 16:39 Urine pH 5.0 (5.0-9.0) 10/06/24 16:39 Ur Specific [place] 1.010 (1.001-1.030) 10/06/24 16:39 Urine Protein Trace mg/dL (Negative) H 10/06/24 16:39 Urine Glucose (UA) Normal mg/dL (Normal) 10/06/24 16:39 Urine Ketones Negative (Negative) 10/06/24 16:39 Urine Occult Blood Negative (Negative) 10/06/24 16:39 Urine Nitrite Negative (Negative) 10/06/24 16:39 Urine Bilirubin Negative (Negative) 10/06/24 16:39 Urine Urobilinogen Normal mg/dL (Normal) 10/06/24 16:39 Ur Leukocyte Esterase 4+ (Negative) H 10/06/24 16:39 Urine RBC 3-4 /HPF (0-4) 10/06/24 16:39 Urine WBC 20-49 /HPF (0-4) H 10/06/24 16:39 Urine WBC Clumps Moderate /LPF (None Seen) H 10/06/24 16:39 Ur Squamous Epith Cells 1-2 /HPF (0-2) 10/06/24 16:39 Urine Bacteria Rare /HPF (None Seen) 10/06/24 16:39 Hyaline Casts 0-8 /LPF (0-8) 10/06/24 16:39 Urine Mucus Rare /LPF 10/06/24 16:39 Assessment & Plan Assessment/Plan (1) Chronic renal insufficiency: (2) Near syncope: (3) Diabetes mellitus: (4) Acute hyperkalemia: (5) Chronic kidney disease, stage IV (severe): (6) Hypertensive urgency: (7) Acute hyperkalemia: (8) E. coli UTI: Plan This is a 74-year-old male with significant past medical history of hypertension, CKD stage IV, history of CAD status post stent, diabetes, hyperlipidemia who was admitted here for hyperkalemia on the lab work with hypertensive urgency which was well-controlled and was discharged today. His daughter picked him up and while he was driving back he complained of having some nausea vomiting and lightheadedness and ask her to bring him back to ED. In the ED he was found to be hypertensive. Lab work shows no leukocytosis with stable hemoglobin. Potassium is slightly up to 5.5 from 4.9 and creatinine is uptrending and is 3.25 today. His liver enzymes are unremarkable. Patient got a bolus of IV fluid with Zofran and Lokelma in the ED. during the admission patient was also started on ceftriaxone for E. coli UTI which was pansensitive Plan: -Admit in the regular nursing floor with telemetry -Continue to monitor blood pressure and lab work -Monitor urine output -Continue POA medication-aspirin, atorvastatin, carvedilol, clonidine, vitamin B, vitamin D, iron supplement, hydralazine, insulin glargine 10 units twice daily with sliding scale, Imdur -Nephrology consulted-appreciate recommendation Full code -DVT prophylaxis with Lovenox IP vs OBS Justification Based on differential dx, clinical care plan, and risk of adverse events, if untreated, in my clinical judgement this patient requires an acute care setting as: INPATIENT because of an expectation of an over 2 midnight stay. Estimated length of stay (# of days): 3 Documented By: Matheus Robison MD 10/06/24 148 Signed By: <Electronically signed by Matheus Robison MD> 10/06/24 9901 [facility] Work Phone: 1(122) 632-898901-01-2025 [place] [address] Hospitalist H&P Signed with Addenda Patient: Gage Lugo MR#: [id number] : 1950 Acct:[id number] Age/Sex: 74 / M Adm Date: 5 Loc: Room: [address] [place] [address] Type: ADM IN Attending Dr: Matheus Robison MD Copies to: MD Lolita Salinas, ~ ADDENDUM1 -Complicated UTI -Recent urinalysis suggestive of UTI with urine culture growing pansensitive E. coli. -Plan: -Patient started on levofloxacin 750 mg daily for total of 5 days. Addendum Documented By: Matheus Robison MD 10/06/241750 Addendum Signed By: 10/06/241750 HPI DATE OF EXAMINATION: 10/06/24 CHIEF COMPLAINT: Nausea vomiting and lightheadedness HISTORY OF PRESENT ILLNESS: This is a 74-year-old male with significant past medical history of hypertension, CKD stage IV, history of CAD status post stent, diabetes, hyperlipidemia who was admitted here for hyperkalemia on the lab work with hypertensive urgency which was well-controlled and was discharged today. His daughter picked him up and while he was driving back he complained of having some nausea vomiting and lightheadedness and ask her to bring him back to ED. In the ED he was found to be hypertensive. Lab work shows no leukocytosis with stable hemoglobin. Potassium is slightly up to 5.5 from 4.9 and creatinine is uptrending and is 3.25 today. His liver enzymes are unremarkable. Patient got a bolus of IV fluid with Zofran and Lokelma in the ED. Review of Systems Review of Systems All other systems reviewed & are negative unless noted below or in HPI [facility] Medical History (Updated 10/06/24 @ 17:38 by Matheus Robison MD) History of cataract Poor historian Smoker Kidney stone Myocardial infarct 2 STENTS Diabetes Hyperlipemia HTN (hypertension) Surgical History History of back surgery Neck History of orthopedic surgery 1st rib removed History of cardiac catheterization H/O heart artery stent Family History Sister Brain aneurysm Brother Myocardial infarction Mother Diabetes mellitus, type 2 Father Diabetes Mother Diabetes Presence of cardiac pacemaker Social History Smoking Status: Current every day smoker Tobacco Type: cigarettes Substance Use Type: None Meds Medications and Allergies Allergies acetaminophen (Percocet) Allergy (Unknown, Verified 10/06/24 15:19) swelling of throat aspirin Allergy (Unknown, Verified 10/06/24 15:19) Swelling of Lip/Tongue/Throat, lips turn blue if takes 2 oxycodone (From Percocet) Allergy (Unknown, Verified 10/06/24 15:19) Swelling of Lip/Tongue/Throat, swelling of throat amlodipine Adverse Reaction (Verified 10/06/24 15:19) Edema Home Medications nitroglycerin 0.4 mg sublingual tablet 0.4 mg sublingual Q5M PRN Chest Pain 30 days #30 tabs 08/26/17 [Rx Confirmed 10/06/24] fzwokrdu-[id number]-pxrrjqr gluconate 9 mg iron/15 mL (15 mL) oral liquid (Centrum) 15ml PO DAILY 08/08/20 [History Confirmed 10/06/24] atorvastatin 20 mg tablet 20 mg PO QHS 08/09/20 [History Confirmed 10/06/24] aspirin 81 mg chewable tablet 81 mg PO QAM 09/18/22 [History Confirmed 10/06/24] cyanocobalamin (vitamin B-12) 1,000 mcg tablet (Vitamin B-12) 1,000 mcg PO QAM 09/18/22 [History Confirmed 10/06/24] isosorbide mononitrate 30 mg tablet,extended release 24 hr 30 mg PO QAM 09/18/22[History Confirmed 10/06/24] carvedilol 25 mg tablet 25 mg PO BID.WITH.MEALS 30 days #60 tabs 10/06/22 [Rx Confirmed 10/06/24] insulin glargine 100 unit/mL (3 mL) subcutaneous pen (Lantus Solostar U-100 Insulin) 10 unit subcutBID 12/25/23 [History Confirmed 10/06/24] cetirizine 10 mg tablet 10 mg PO BID 07/23/24 [History Confirmed 10/06/24] famotidine 20 mg tablet 20 mg PO DAILY 07/23/24 [History Confirmed 10/06/24] gabapentin 300 mg capsule 300 mg PO BID 07/23/24 [History Confirmed 10/06/24] ergocalciferol (vitamin D2) 1,250 mcg (50,000 unit) capsule 1,250 mcg PO QWEEK #14 caps 08/30/24 [Rx Confirmed 10/06/24] hydralazine 100 mg tablet 100 mg PO TID 08/30/24 [History Confirmed 10/06/24] cyclobenzaprine 10 mg tablet See Rx Instructions .Route .COMPLEX #30 tabs 10/04/24 [Rx Confirmed 10/06/24] ferrous sulfate 325 mg (65 mg iron) tablet See Rx Instructions .Route .COMPLEX #90 tabs 10/04/24 [Rx Confirmed 10/06/24] furosemide 40 mg tablet 40 mg PO DAILY 10/04/24 [History Confirmed 10/06/24] glipizide 5 mg tablet 5 mg PO DAILY 10/04/24 [History Confirmed 10/06/24] pantoprazole 40 mg tablet,delayed release 40 mg PO DAILY 10/04/24 [History Confirmed 10/06/24] amoxicillin 500 mg-potassium clavulanate 125 mg tablet (Augmentin) 1 tab PO Q8HR5 days #15 tabs 10/06/24 [Rx Confirmed 10/06/24] clonidine HCl 0.2 mg tablet 0.2 mg PO Q12HR #60 tabs 10/06/24 [Rx Confirmed 10/06/24] Exam Physical Exam Vital Signs: Temp Pulse Resp BP Pulse Ox O2 Del Method 97.7 F 77 18 159/76 H 97 Room Air 10/06/24 15:19 10/06/24 17:00 10/06/24 17:00 10/06/24 17:00 10/06/24 17:00 10/06/24 17:00 Narrative: General: Awake alert, no acute distress HEENT: head atraumatic, normocephalic, moist mucous membranes Neck: supple no masses, no lymphadenopathy CVS: regular rate and rhythm, no murmurs or gallops Respiratory: clear to auscultation bilaterally, no wheezing or crackles, symmetric expansion GI: soft, nondistended, nontender, positive bowel sounds with no organomegaly Extremity: moves all extremities, no restrictions of movements, no calf tenderness Neuro: AOx3, CN II-VII intact. Moves all extremities in all planes of motion. Skin: intact no rashes or lesions Results - Hospitalist H&P Lab Results Labs: Laboratory Last Values Corrected WBC 6.9 X10E3/uL (4.1-10.5) 10/06/24 15:09 Uncorrected WBC Count 6.9 x10E3/uL (4.1-10.5) 10/06/24 15:09 RBC 4.13 x10E6/uL (3.90-5.60) 10/06/24 15:09 Hgb 11.2 g/dL (13.0-17.0) L 10/06/24 15:09 Hct 34.3 % (38.8-50.0) L 10/06/24 15:09 MCV 83.1 fl (83.5-101) L 10/06/24 15:09 MCH 27.2 pg (27.5-35.2) L 10/06/24 15:09 MCHC 32.7 g/dL (32.5-35.6) 10/06/24 15:09 RDW 13.8 % (12.0-14.8) 10/06/24 15:09 Plt Count 182 x10E3/uL (150-450) 10/06/24 15:09 MPV 8.3 fl (6.6-10.1) 10/06/24 15:09 Neut % (Auto) 59.8 % (.) 10/06/24 15:09 Lymph % (Auto) 27.0 % (.) 10/06/24 15:09 Kleberg % (Auto) 9.9 % (.) 10/06/24 15:09 Eos % (Auto) 2.7 % (.) 10/06/24 15:09 Baso % (Auto) 0.6 % (.) 10/06/24 15:09 Nucleat RBC Rel Count 0.1 /100 WBC (0-0.5) 10/06/24 15:09 Neut # (Auto) 4.2 x10E3/uL (1.8-7.7) 10/06/24 15:09 Lymph # (Auto) 1.9 x10E3/uL (1.00-4.8) 10/06/24 15:09 [place] # (Auto) 0.7 x10E3/uL (0.0-0.8) 10/06/24 15:09 Eos # (Auto) 0.2 x10E3/uL (0.0-0.45) 10/06/24 15:09 Baso # (Auto) 0.0 x10E3/uL (0.0-0.2) 10/06/24 15:09 Monocyte Dist Width 17.85 % (0.00-20.00) 10/06/24 15:09 PHA Creatinine Clear 18.85 10/06/24 15:09 Sodium 133 mmol/L (136-145) L 10/06/24 15:09 Potassium 5.5 mmol/L (3.5-5.1) H 10/06/24 15:09 Chloride 101 mmol/L (98-107) 10/06/24 15:09 Carbon Dioxide 24.3 mmol/L (21.0-31.0) 10/06/24 15:09 Anion Gap 13.2 mEq/L (6.0-15.0) 10/06/24 15:09 BUN 55 mg/dL (7-25) H 10/06/24 15:09 Creatinine 3.25 mg/dL (0.70-1.30) H 10/06/24 15:09 Est GFR (CKD-EPI) 19.198 mL/Min 10/06/24 15:09 Glucose 240 mg/dL (70-100) H D 10/06/24 15:09 POC Glucose 225 mg/dl 10/06/24 16:41 Calcium 9.5 mg/dL (8.6-10.3) 10/06/24 15:09 Total Bilirubin 0.4 mg/dl (0.3-1.0) 10/06/24 15:09 AST 13 U/L (13-39) 10/06/24 15:09 ALT 14 U/L (7-52) 10/06/24 15:09 Alkaline Phosphatase 85 U/L (34-104) 10/06/24 15:09 Total Creatine Kinase 55 U/L (30-223) 10/06/24 15:09 Troponin I High Sens 14.0 pg/mL (0.0-20.0) 10/06/24 15:09 Total Protein 6.5 gm/dL (6.4-8.9) 10/06/24 15:09 Albumin 3.7 gm/dL (3.5-5.7) 10/06/24 15:09 Globulin 2.8 gm/dL 10/06/24 15:09 Albumin/Globulin Ratio 1.3 10/06/24 15:09 Urine Color Light-yellow (Yellow) 10/06/24 16:39 Urine Appearance Clear (Clear) 10/06/24 16:39 Urine pH 5.0 (5.0-9.0) 10/06/24 16:39 Ur Specific [place] 1.010 (1.001-1.030) 10/06/24 16:39 Urine Protein Trace mg/dL (Negative) H 10/06/24 16:39 Urine Glucose (UA) Normal mg/dL (Normal) 10/06/24 16:39 Urine Ketones Negative (Negative) 10/06/24 16:39 Urine Occult Blood Negative (Negative) 10/06/24 16:39 Urine Nitrite Negative (Negative) 10/06/24 16:39 Urine Bilirubin Negative (Negative) 10/06/24 16:39 Urine Urobilinogen Normal mg/dL (Normal) 10/06/24 16:39 Ur Leukocyte Esterase 4+ (Negative) H 10/06/24 16:39 Urine RBC 3-4 /HPF (0-4) 10/06/24 16:39 Urine WBC 20-49 /HPF (0-4) H 10/06/24 16:39 Urine WBC Clumps Moderate /LPF (None Seen) H 10/06/24 16:39 Ur Squamous Epith Cells 1-2 /HPF (0-2) 10/06/24 16:39 Urine Bacteria Rare /HPF (None Seen) 10/06/24 16:39 Hyaline Casts 0-8 /LPF (0-8) 10/06/24 16:39 Urine Mucus Rare /LPF 10/06/24 16:39 Assessment & Plan Assessment/Plan (1) Chronic renal insufficiency: (2) Near syncope: (3) Diabetes mellitus: (4) Acute hyperkalemia: (5) Chronic kidney disease, stage IV (severe): (6) Hypertensive urgency: (7) Acute hyperkalemia: (8) E. coli UTI: Plan This is a 74-year-old male with significant past medical history of hypertension, CKD stage IV, history of CAD status post stent, diabetes, hyperlipidemia who was admitted here for hyperkalemia on the lab work with hypertensive urgency which was well-controlled and was discharged today. His daughter picked him up and while he was driving back he complained of having some nausea vomiting and lightheadedness and ask her to bring him back to ED. In the ED he was found to be hypertensive. Lab work shows no leukocytosis with stable hemoglobin. Potassium is slightly up to 5.5 from 4.9 and creatinine is uptrending and is 3.25 today. His liver enzymes are unremarkable. Patient got a bolus of IV fluid with Zofran and Lokelma in the ED. during the admission patient was also started on ceftriaxone for E. coli UTI which was pansensitive Plan: -Admit in the regular nursing floor with telemetry -Continue to monitor blood pressure and lab work -Monitor urine output -Continue POA medication-aspirin, atorvastatin, carvedilol, clonidine, vitamin B, vitamin D, iron supplement, hydralazine, insulin glargine 10 units twice daily with sliding scale, Imdur -Nephrology consulted-appreciate recommendation Full code -DVT prophylaxis with Lovenox IP vs OBS Justification Based on differential dx, clinical care plan, and risk of adverse events, if untreated, in my clinical judgement this patient requires an acute care setting as: INPATIENT because of an expectation ofan over 2 midnight stay. Estimated length of stay (# of days): 3 Documented By: Matheus Robison MD 10/06/24 1733 Signed By: 10/06/24 1740 [facility]01-01-2025 [place] [address] Nephrology Progress Note Signed Patient: Gage Lugo MR#: [id number] : 1950 Acct:[id number] Age/Sex: 74 / M Adm Date: 4 Loc: Room: [address] [place] [address] Type: ADM IN Attending Dr: Matheus Robison MD Copies to: ~ Date of Service: 10/06/2024 Subjective Subjective Narrative: 74-year-old male patient past medical history of chronic kidney disease stage IVfollows with Dr. Holden in the renal office, history of hyperkalemia, diabetes and hypertension, coronary disease statuspost PCI in the past. Patient was sent to the emergency room by his PCP for labs showing hyperkalemia potassium 6.6. In the emergency room potassium was found to be slightly better at 6.1. EKG did not show peaked T wave patient was treated medically with Lokelma, insulin and 1 dose of Lasix. Lab also showed creatinine 2.6 mg deciliter which is close to lab from last month of 2.4 mg deciliter I reviewed the patient's home medications. He is on isosorbide mononitrate, hydralazine, Lasix, andAldactone for hypertension management. Patient stated he has been compliant with low potassium diet Systolic blood pressure when he presented to the hospital was elevated at 200. Patient was given 1 dose of labetalol. Blood pressure this morning 154/82 Patient has no complaint. Denied NSAID use. He stated his blood pressure has been elevated at home.He does monitor blood pressure twice daily Interval history: Patient was seen and examined in his room. Blood pressure improved with adding clonidine and Lasix Potassium is within normal limit. Lab this morning revealed slightly worsening of kidney function with creatinine up to 3.0 with better control of blood pressure and adding diuretics Patient has no complaint. Exam Physical Exam Vital Signs: Temp Pulse Resp BP Pulse Ox O2 Del Method 97.9 F 67 16 111/64 95 Room Air 10/06/24 13:04 10/06/24 13:04 10/06/24 13:04 10/06/24 13:04 10/06/24 13:04 10/06/24 13:04 Narrative: General: No acute distress Head :atraumatic normocephalic Eyes: PERRLA. Neck: no JVD no bruit. Heart: S1-S2. RRR Respiratory: Clear to auscultation. No wheezing. No crackles Abdomen: Soft, positive bowel sounds,no tenderness. Neurology: Awake alert oriented x3. No focal deficits Extremity. No cyanosis. No edema Skin: No skin rash Objective Intake and Output I&O: Intake & Output 10/03/24 10/04/24 10/05/24 10/06/24 23:59 23:59 23:59 23:59 Intake Total 500 / 500 1250 / 1250 200 / 200 Output Total 300 / 300 700 / 700 Balance 200 / 200 550 / 550 200 / 200 Weight 79.3 kg 79.3 kg 75.1 kg Meds and Allergies Meds: Active Medications Aspirin (Aspirin 81 Mg Tab.Chew) [facility] [place]: 10/05/25 08:59 Last Admin: 10/06/24 08:28 Dose: 81 mg Atorvastatin Calcium (Atorvastatin 20 Mg Tablet) 20 mg PO QHS [facility] Stop: 10/04/25 21:59 Last Admin: 10/05/24 20:53 Dose: 20 mg Carvedilol (Carvedilol 25 Mg Tablet) 25 mg PO BID.WITH.MEALS [facility] Stop: 10/05/25 07:59 Last Admin: 10/06/24 08:28 Dose: 25 mg Ceftriaxone Sodium (Ceftriaxone 1 Gm/10 Ml Syringe) 1 gm IV-PUSH DAILY@1630 [facility] Last Admin: 10/05/24 21:14 Dose: 1 gm Clonidine HCl (Clonidine 0.2 Mg Tablet) 0.2 mg PO BID [facility] Stop: 10/05/25 11:44 Last Admin: 10/06/24 08:28 Dose: 0.2 mg Cyanocobalamin (Cyanocobalamin 1,000 Mcg Tablet) 1,000 mcg PO QAM [facility] Stop: 10/05/25 08:59 Last Admin: 10/06/24 08:28 Dose: 1,000 mcg Cyclobenzaprine HCl (Cyclobenzaprine 10 Mg Tablet) 10 mg PO QHS PRN PRN Reason: Back Spasms Stop: 10/04/25 19:10 Last Admin: 10/04/24 21:44 Dose: 10 mg Dextrose (Dextrose 50% In Water 25 Gm/50 Ml Syringe) 25 gm IV-PUSH PRN PRN PRN Reason: Hypoglycemia Stop: 10/04/25 18:21 Last Admin: 10/04/24 18:56 Dose: 25 gm Dextrose (Dextrose 50% In Water 25 Gm/50 Ml Syringe) 0 gm IV-PUSH PRN PRN PRN Reason: Hypoglycemia Stop: 10/04/25 20:29 Enoxaparin Sodium (Enoxaparin 30 Mg/0.3 Ml Syringe) 30 mg SUBCUT DAILY@10 [facility] Stop: 10/05/25 09:59 Last Admin: 10/06/24 09:54 Dose: Not Given Ergocalciferol (Ergocalciferol 1,250 Mcg (50,000 Units) Capsule) 1,250 mcg PO Tu@0900 [facility] Stop: 10/05/25 08:59 Last Admin: 10/05/24 08:13 Dose: 1,250 mcg Ferrous Sulfate (Ferrous Sulfate 324 Mg Tablet.Dr) 324 mg PO DAILY.WITH.LUNCH [facility] Stop: 10/05/25 11:59 Last Admin: 10/06/24 12:31 Dose: 324 mg Furosemide (Furosemide 40 Mg Tablet) 40 mg PO BID@0800,1600 [facility] Stop: 10/05/25 15:59 Last Admin: 10/06/24 08:28 Dose: 40 mg Glucose (Dextrose 40% Gel 15 Gm Tube) 0 gm PO PRN PRN PRN Reason: Hypoglycemia Stop: 10/04/25 20:29 Hydralazine HCl (Hydralazine 50 Mg Tablet) 100 mg PO TID [facility] Stop: 10/04/25 21:59 Last Admin: 10/06/24 08:27 Dose: 100 mg Insulin Aspart (Insulin Aspart 300 Units/3 Ml) 0 units SUBCUT TID.WM.HS [facility]; Protocol Stop: 10/04/25 21:59 Last Admin: 10/06/24 12:32 Dose: 1 units Insulin Glargine (Insulin Glargine 300 Units/3 Ml Insuln.Pen) 10 units SUBCUT BID [facility] Stop: 10/05/25 08:59 Last Admin: 10/06/24 08:28 Dose: 10 units Isosorbide Mononitrate (Isosorbide Mononitrate 24hr Er 30 Mg Tab.Er.24h) 30 mg PO QAM [facility] Stop: 10/05/25 08:59 Last Admin: 10/06/24 08:28 Dose: 30 mg Multivitamins (Multivitamin 1 Tab Tablet) 1 tab PO DAILY [facility] Stop: 10/05/25 08:59 Last Admin: 10/06/24 08:28 Dose: 1 tab Nitroglycerin (Nitroglycerin 0.4 Mg Tab.Subl) 0.4 mg SUBLINGUAL Q5M PRN PRN Reason: Chest Pain Stop: 10/04/25 19:08 Ondansetron HCl (Ondansetron 4 Mg/2 Ml Vial) 4 mg IV-PUSH Q8H PRN PRN Reason: Nausea And Vomiting Stop: 10/04/25 19:13 Sodium Chloride (Sodium Chloride 0.9 % 10 Ml Syringe) 0 ml IV-PUSH PRN PRN PRN Reason: Flush Stop: 10/04/25 17:11 Last Admin: 10/05/24 21:17 Dose: 10 ml Allergies acetaminophen (Percocet) Allergy (Unknown, Verified 10/04/24 17:12) swelling of throat aspirin Allergy (Unknown, Verified 10/04/24 17:12) Swelling of Lip/Tongue/Throat, lips turn blue if takes 2 oxycodone (From Percocet) Allergy (Unknown, Verified 10/04/24 17:12) Swelling of Lip/Tongue/Throat, swelling of throat amlodipine Adverse Reaction (Verified 10/04/24 17:12) Edema Results - Nephrology Labs 10/06/24 06:41 10/06/24 06:41 Labs: 10/06/24 06:41 BUN 50 H Creatinine 3.00 H Albumin 3.4 L Radiology Impressions Impressions - last 24 hours: Any impression(s) listed above is documentation that was entered by the reading physician into a diagnostic report(s) for Gage Lugo. I have reviewed the report(s) and am incorporating any findings in the treatment plan of this patient where applicable. A&P - Nephrology Assessment/Plan (1) Hyperkalemia: Assessment/Problem Details: Is likely related to advanced CKD and being on potassium sparing diuretic namelyAldactone. Patient has been compliant with low potassium diet. Patient presented with potassium 6.6. Hyperkalemia improved with medical treatment of Lokelma, Lasix and insulin (2) Chronic kidney disease, stage IV (severe): Assessment/Problem Details: Patient follows with Dr. 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 Baseline creatinine around 2.4 (3) Hypertensive chronic kidney disease with stage 1 through stage 4 chronic kidney disease, or unspecified chronic kidney disease: Assessment/Problem Details: Patient is on isosorbide mononitrate, hydralazine, Lasix and spironolactone at home for hypertension management. Blood pressure has been out of control at home. Patient said he has been following low-salt diet. Currently Aldactone onhold due to hyperkalemia. Blood pressure remains elevated (4) Type 2 diabetes mellitus with diabetic chronic kidney disease: Assessment/Problem Details: Patient has known history of type 2 diabetes. He is on glargine and glipizide for diabetes management. Patient presented with blood glucose level close to 400 and received insulin in the emergency room Plan * There is no indication for renal placement therapy. Slight increase in serum creatinine likely from better control of blood pressure and adding diuretics * Will stop Lasix * Hyperkalemia corrected with holding home spironolactone and adding Lasix. Will stop Lasix due to worsening kidney function * Please stop spironolactone at discharge * Blood pressure is well-controlled. Will continue same dose of clonidine, Coreg, hydralazine and losartan monitor rate. * Emphasized the need of strict low potassium diet. Patient can be discharged from nephrology standpoint. Please stop Lasix at discharge. Please stop spironolactone. Please add clonidine to the other bloodpressure medications. Please repeat renal function panel in 2 days after hospital discharge. Patient needs follow-up with Dr. Holden in a week after hospital discharge. Plan of care was discussed with the primary hospitalist service Documented By: Tito Martinez MD 10/06/24 142 Signed By: 10/06/24 1424 [facility]01-01-[address] [address] Discharge Summary Signed Patient: Gage Lugo MR#: [id number] : 1950 Acct:[id number] Age/Sex: 74 / M Adm Date: 12/30/2 4 Loc: Room: 6S8110-[address]: Matheus Robison MD Copies to: MD Lolita Salinas, DO~ Providers Date of Discharge: 10/06/24 Discharging Provider: Matheus Robison Primary Care Provider: Lolita Adorno Consults: 10/04/24 19:14 Consult to Nephrology Routine Comment: Consulting Provider: Tito Martinez Has Provider Been Notified: Yes Date of Notification: 10/05/24 Time of Notification: 07:34 Reason for Consult: Hyper/Hypo Kalemia Discharge Diagnosis (1) Acute hyperglycemia: (2) Dyslipidemia: (3) CAD (coronary artery disease): (4) Diabetes: (5) HTN (hypertension): (6) Hypertensive urgency: (7) Acute hyperkalemia: Final Diagnosis Final Discharge Diagnosis: Acute hyperkalemia and hypertensive urgency Summary Hospital Course Hospital course: This is a 74-year-old male with significant past medical history of hypertension, CKD stage IV, history of CAD status post stent, diabetes, hyperlipidemia presented to [facility] ED for hyperkalemia. Patient had had a lab work done at PCP and was recommended to come to [facility] ED for elevated potassium. Patient denied any symptoms like chest pain shortness of breath palpitation. 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 Lab work here shows potassium of 6.1 down from 6.6 done in the lab by PCP. He is bicarb was 19.7 and his creatinine was 2.62. His glucose waselevated to 455. His liver enzymes was within normal limit. EKG bedside shows normal sinus rhythm. Patient got insulin and Lokelma in the ED. his potassium has improved and is currently 4.9. His creatinine has slightly increased. Patient is having good urine output. His blood pressure has also improved significantly and is currently normotensive. Block Paver recommended continuing clonidine and disc ontinuing spironolactone on discharge. He is also recommended to hold on Lasix until seen by PCP/lock and dam operator. He is also recommended to get a outpatient BMP before seeing his PCP/lock and dam operator. His urinalysis was suggestive of UTI with urine culture growing E. coli which was pansensitive. He got ceftriaxone 2 doses here and needs switch to oral antibiotics Augmentin on discharge which she is recommended to continue for 5 more days. Patient is asymptomatic and denies any complaints and is fit for discharge and is going home today Condition Condition at Discharge: Fair Time Spent with Patient Time spent providing/coordinating discharge services (# min): 37 Discharge Plan Discharge Plan Patient Disposition: Home Activity: No Activity Restriction Diet: Diabetic and Other Comment: Low potassium diet Instructions: Know your Meds Prescriptions: New amoxicillin-pot clavulanate [Augmentin] 500-125 mg tablet 1 tab PO Q8HR 5 Days Qty: 15 0RF clonidine HCl 0.2 mg tablet 0.2 mg PO Q12HR Qty: 60 0RF Continued ferrous sulfate 325 mg (65 mg iron) tablet See Rx Instructions .ROUTE .COMPLEX Qty: 90 0RF Dose Instruction: TAKE 1 TABLET EVERY MORNING Rx Instructions: TAKE 1 TABLET EVERY MORNING cyclobenzaprine 10 mg tablet See Rx Instructions .ROUTE .COMPLEX Qty: 30 2RF Dose Instruction: TAKE 1 TABLET BY MOUTH DAILY AT BEDTIME NEEDED FOR BACK SPASMS Rx Instructions: TAKE 1 TABLET BY MOUTH DAILY AT BEDTIME NEEDED FOR BACK SPASMS nitroglycerin 0.4 mg Tablet, Sublingual 0.4 mg Sublingual Q5M PRN (Reason: Chest Pain) 30 Days Qty: 30 2RF Centrum 9 mg iron/ 15 mL (15 mL) Liquid 15 ml PO DAILY atorvastatin 20 mg Tablet 20 mg PO QHS Patient Comments: 20mg filled outpatient, has always received 80mg at this facility with good effect isosorbide mononitrate 30 mg tablet extended release [...] Further refills, or dose adjustment, per PCP pantoprazole 40 mg tablet,delayed release (DR/EC) PO Patient Comments: per pt is taking Pepcid 20 mg daily not this glipizide 5 mg tablet Patient Comments: pt is no longer taking this med per cetirizine 10 mg tablet 10 mg PO BID famotidine 20 mg tablet 20 mg PO DAILY gabapentin 300 mg capsule 300 mg PO BID insulin glargine [Lantus Solostar U-100 Insulin] 100 unit/mL (3 mL) insulin pen 10 unit subcut BID hydralazine 100 mg tablet 100 mg PO TID ergocalciferol (vitamin D2) 1,250 mcg (50,000 unit) capsule 1,250 mcg PO QWEEK Qty: 14 1RF Patient Comments: tuesdays Held furosemide 40 mg tablet 40 mg PO DAILY Hold Instructions: Resume on 10/13/24. Please hold Lasix until seen by your PCP/lock and dam operator. Discontinued spironolactone 25 mg tablet 25 mg PO DAILY Qty: 90 1RF Other Ambulatory Orders: Basic Metabolic Panel (Routine) Timeframe: [id number] Location: Determined by Patient Ordered By: Matheus Robison Follow Up: Nette Holden MD [Active Staff] - 12/20/24 1:00 pm Lolita Adorno DO [Primary Care Provider] - 10/12/24 11:00 am (Post hospital appointment. Please call to reschedule if needed.) Exam Physical Exam Vital Signs: Temp Pulse Resp BP Pulse Ox O2 Del Method 97.9 F 67 16 111/64 95 Room Air 10/06/24 13:04 10/06/24 13:04 10/06/24 13:04 10/06/24 13:04 10/06/24 13:04 10/06/24 13:04 Narrative: General: Awake alert, no acute distress HEENT: head atraumatic, normocephalic, moist mucous membranes Neck: supple no masses, no lymphadenopathy CVS: regular rate and rhythm, no murmurs or gallops Respiratory: clear to auscultation bilaterally, no wheezing or crackles, symmetric expansion GI: soft, nondistended, nontender, positive bowel sounds with no organomegaly Extremity: moves all extremities, no restrictions of movements, no calf tenderness Neuro: AOx3, CN II-VII intact. Moves all extremities in all planes of motion. Skin: intact no rashes or lesions Diagnostic Studies Completed and Pending Studies Pending studies at discharge: 10/07/24 05:00 Complete Blood Count Auto Diff IN AM Comprehensive Metabolic Panel [CHEM] IN AM 10/08/24 05:00 Complete Blood Count Auto Diff IN AM Comprehensive Metabolic Panel [CHEM] IN AM 10/09/24 05:00 Complete Blood Count Auto Diff IN AM 10/10/24 05:00 Complete Blood Count Auto Diff IN AM 10/11/24 05:00 Complete Blood Count Auto Diff IN AM 10/12/24 05:00 Complete Blood Count Auto Diff IN AM 10/13/24 05:00 Complete Blood Count Auto Diff IN AM 10/14/24 05:00 Complete Blood Count Auto Diff IN AM Labs on day of discharge: 10/06/24 11:17: POC Glucose 192, POC Glucose Comment Glu2: cleaned meter 10/06/24 06:41: Corrected WBC 7.5, Uncorrected WBC Count 7.5, RBC 4.00, Hgb 10.9 L, Hct 33.7 L, MCV84.1, MCH 27.2 L, MCHC 32.3 L, RDW 13.4, Plt Count 175, MPV 8.4, Neut % (Auto) 46.0, Lymph % (Auto)37.3, Kleberg % (Auto) 12.9, Eos % (Auto) 3.3, Baso % (Auto) 0.5, Nucleat RBC Rel Count 0.1, Neut # (Auto) 3.5, Lymph # (Auto) 2.8, Kleberg # (Auto) 1.0 H, Eos # (Auto) 0.2, Baso # (Auto) 0.0, PHA Creatinine Clear 19.49, Sodium 136, Potassium 4.9, Chloride 107, Carbon Dioxide 24.1, Anion Gap 9.8, BUN 50 H, Creatinine 3.00 H, Est GFR (CKD-EPI) 21.133, Glucose 79, Calcium 8.9, Total Bilirubin 0.4, AST 12L, ALT 14, Alkaline Phosphatase 79, Total Protein 6.0 L, Albumin 3.4 L, Globulin 2.6, Albumin/Globul in Ratio 1.3 10/06/24 06:08: POC Glucose 89 Documented By: Matheus Robison MD 10/06/24 1339 Signed By: 10/06/24 1349 [facility]12-31-2024 Progress note Author Matheus Robison [facility] Note Date/Time October 05, 2024 4:20pm [facility] EN[facility] [address] [place] [address] Hospitalist Progress Note Signed with Addenda Patient: Gage Lugo MR#: [id number] : 1950 Acct:[id number] Age/Sex: 74 / M Adm Date: 4 Loc: 3T Room: [address] [place] [address] Type: ADM IN Attending Dr: Copies to: ~ ADDENDUM1 Assessment and plan: -Acute UTI Urinalysis suggestive of UTI Urine culture grew E. coli-final report pending Plan: -Start on ceftriaxone and follow-up urine culture. Addendum Documented By: Matheus Robison MD 10/05/241619 Addendum Signed By: <Electronically signed by Matheus Robison MD> 10/05/241619 Date of Service: 10/05/2024 Subjective Subjective Narrative: Patient is currently asymptomatic. His potassium has improved to 5.3. And creatinine is 2.63. His systolic blood pressure has improved today. Exam Physical Exam Vital Signs: Temp Pulse Resp BP Pulse Ox O2 Del Method 98 F 80 16 134/71 97 Room Air 10/05/24 11:35 10/05/24 11:35 10/05/24 11:35 10/05/24 11:35 10/05/24 11:35 10/05/24 11:35 Narrative: General: Awake alert, no acute distress HEENT: head atraumatic, normocephalic, moist mucous membranes Neck: supple no masses, no lymphadenopathy CVS: regular rate and rhythm, no murmurs or gallops Respiratory: clear to auscultation bilaterally, no wheezing or crackles, symmetric expansion GI: soft, nondistended, nontender, positive bowel sounds with no organomegaly Extremity: moves all extremities, no restrictions of movements, no calf tenderness Neuro: AOx3, CN II-VII intact. Moves all extremities in all planes of motion. Skin: intact no rashes or lesions Objective Lab Results 10/05/24 05:18 10/05/24 05:18 Microbiology Results Microbiology 10/04/24 18:49 Urine - Voided Urine Culture - Preliminary Escherichia coli Meds Allergies and Active Meds Allergies acetaminophen (Percocet) Allergy (Unknown, Verified 10/04/24 17:12) swelling of throat aspirin Allergy (Unknown, Verified 10/04/24 17:12) Swelling of Lip/Tongue/Throat, lips turn blue if takes 2 oxycodone (From Percocet) Allergy (Unknown, Verified 10/04/24 17:12) Swelling of Lip/Tongue/Throat, swelling of throat amlodipine Adverse Reaction (Verified 10/04/24 17:12) Edema Active Meds: Active Medications Generic Name Dose Route Start Last Admin Trade Name Freq PRN Reason Stop Dose Admin Aspirin 81 mg 10/05/24 09:00 10/05/24 08:13 Aspirin 81 Mg Tab.Chew PO 10/05/25 08:59 81 mg QAM VANE Administration Atorvastatin Calcium 20 mg 10/04/24 22:00 10/04/24 21:44 Atorvastatin 20 Mg Tablet PO 10/04/25 21:59 20 mg QHS VANE Administration Carvedilol 25 mg 10/05/24 08:00 10/05/24 08:13 Carvedilol 25 Mg Tablet PO 10/05/25 07:59 25 mg BID.WITH.MEALS VANE Administration Clonidine HCl 0.2 mg 10/05/24 11:45 10/05/24 11:41 Clonidine 0.2 Mg Tablet PO 10/05/25 11:44 0.2 mg BID VANE Administration Cyanocobalamin 1,000 mcg 10/05/24 09:00 10/05/24 08:13 Cyanocobalamin 1,000 Mcg Tablet PO 10/05/25 08:59 1,000 mcg QAM VANE Administration Cyclobenzaprine HCl 10 mg 10/04/24 19:14 10/04/24 21:44 Cyclobenzaprine 10 Mg Tablet PO 10/04/25 19:10 10 mg QHS PRN Administration Back Spasms Dextrose 25 gm 10/04/24 18:22 10/04/24 18:56 Dextrose 50% In Water 25 Gm/50 Ml Syringe IV-PUSH 10/04/25 18:21 25 gm PRN PRN Administration Hypoglycemia Dextrose 0 gm 10/04/24 20:30 Dextrose 50% In Water 25 Gm/50 Ml Syringe IV-PUSH 10/04/25 20:29 PRN PRN Hypoglycemia Enoxaparin Sodium 30 mg 10/05/24 10:00 10/05/24 11:37 Enoxaparin 30 Mg/0.3 Ml Syringe SUBCUT 10/05/25 09:59 30 mg DAILY@10 VANE Administration Ergocalciferol 1,250 mcg 10/05/24 09:00 10/05/24 08:13 Ergocalciferol 1,250 Mcg (50,000 Units) Capsule PO 10/05/25 08:59 1,250 mcg Tu@0900 VANE Administration Ferrous Sulfate 324 mg 10/05/24 12:00 10/05/24 11:37 Ferrous Sulfate 324 Mg Tablet.Dr PO 10/05/25 11:59 324 mg DAILY.WITH.LUNCH VANE Administration Furosemide 40 mg 10/05/24 16:00 Furosemide 40 Mg Tablet PO 10/05/25 15:59 BID@0800,1600 VANE Glucose 0 gm 10/04/24 20:30 Dextrose 40% Gel 15 Gm Tube PO 10/04/25 20:29 PRN PRN Hypoglycemia Hydralazine HCl 100 mg 10/04/24 22:00 10/05/24 08:13 Hydralazine 50 Mg Tablet PO 10/04/25 21:59 100 mg TID VANE Administration Insulin Aspart 0 units 10/04/24 22:00 10/05/24 11:38 Insulin Aspart 300 Units/3 Ml SUBCUT 10/04/25 21:59 2 units TID.WM.HS VANE Administration Protocol Insulin Glargine 10 units 10/05/24 09:00 10/05/24 08:14 Insulin Glargine 300 Units/3 Ml Insuln.Pen SUBCUT 10/05/25 08:59 10 units BID VANE Administration Isosorbide Mononitrate 30 mg 10/05/24 09:00 10/05/24 08:13 Isosorbide Mononitrate 24hr Er 30 Mg Tab.Er.24h PO 10/05/25 08:59 30 mg QAM VANE Administration Multivitamins 1 tab 10/05/24 09:00 10/05/24 08:13 Multivitamin 1 Tab Tablet PO 10/05/25 08:59 1 tab DAILY VANE Administration Nitroglycerin 0.4 mg 10/04/24 19:09 Nitroglycerin 0.4 Mg Tab.Subl SUBLINGUAL 10/04/25 19:08 Q5M PRN Chest Pain Ondansetron HCl 4 mg 10/04/24 19:14 Ondansetron 4 Mg/2 Ml Vial IV-PUSH 10/04/25 19:13 Q8H PRN Nausea And Vomiting Sodium Chloride 0 ml 10/04/24 17:12 10/04/24 20:00 Sodium Chloride 0.9 % 10 Ml Syringe IV-PUSH 10/04/25 17:11 10 ml PRN PRN Administration Flush A&P - Hospitalist Assessment/Plan (1) Acute hyperglycemia: (2) Dyslipidemia: (3) CAD (coronary artery disease): (4) Diabetes: (5) HTN (hypertension): (6) Hypertensive urgency: Plan This is a 74-year-old male with significant past medical history of hypertension, CKD stage IV, history of CAD status post stent, diabetes, hyperlipidemia presented to [facility] ED for hyperkalemia. Patient had had a lab work done at PCP and was recommended to come to [facility] ED for elevated potassium. Patient denied any symptoms like chest pain shortness of breath palpitation. 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 Lab work here shows potassium of 6.1 down from 6.6 done in the lab by PCP. He is bicarb was 19.7 and his creatinine was 2.62. His glucose waselevated to 455. His liver enzymes was within normal limit. EKG bedside shows normal sinus rhythm. Patient got insulin and Lokelma in the ED. Assessment-patient was hypertensive on presentation with concern for MEAGHAN with slight increase in creatinine compared to recent creatinine. His blood pressurehas significantly improved and is normotensive. I will check his BMP again tomorrow to see for any improvement to see if it is acute versus chronic kidney disease. Plan: -Admit to the regular nursing floor -Follow-up BMP -Nephrology is consulted appreciate recommendation-recommended to hold spironolactone in setting of hyperkalemia and discontinue on discharge. He alsorecommended adding clonidine 0.2 mg twice a day. And continue on Coreg and hydralazine. And Lasix was resumed. -Continue long-acting insulin with sliding scale -Continuous telemetry -Follow-up morning labs -Continue POA medication-hydralazine, aspirin, Lipitor, carvedilol, Flexeril asneeded, iron pills, multivitamin Full code Documented By: Matheus Robison MD 10/05/24 2863 Signed By: <Electronically signed by Matheus Robison MD> 10/05/24 1520 [facility] Work Phone: [phone]) 646-298912-31-2024 [place] [address] Hospitalist Progress Note Signed with Candie Patient: Gage Lugo MR#: [id number] : 1950 Acct:[id number] Age/Sex: 74 / M Adm Date: 4 Loc: 3T Room: [address] [place] [address] Type: ADM IN Attending Dr: Copies to: ~ ADDENDUM1 Assessment and plan: -Acute UTI Urinalysis suggestive of UTI Urine culture grew E. coli-final report pending Plan: -Start on ceftriaxone and follow-up urine culture. Addendum Documented By: Matheus Robison MD 10/05/241619 Addendum Signed By: 10/05/241619 Date of Service: 10/05/2024 Subjective Subjective Narrative: Patient is currently asymptomatic. His potassium has improved to 5.3. And creatinine is 2.63. His systolic blood pressure has improved today. Exam Physical Exam Vital Signs: Temp Pulse Resp BP Pulse Ox O2 Del Method 98 F 80 16 134/71 97 Room Air 10/05/24 11:35 10/05/24 11:35 10/05/24 11:35 10/05/24 11:35 10/05/24 11:35 10/05/24 11:35 Narrative: General: Awake alert, no acute distress HEENT: head atraumatic, normocephalic, moist mucous membranes Neck: supple no masses, no lymphadenopathy CVS: regular rate and rhythm, no murmurs or gallops Respiratory: clear to auscultation bilaterally, no wheezing or crackles, symmetric expansion GI: soft, nondistended, nontender, positive bowel sounds with no organomegaly Extremity: moves all extremities, no restrictions of movements, no calf tenderness Neuro: AOx3, CN II-VII intact. Moves all extremities in all planes of motion. Skin: intact no rashes or lesions Objective Lab Results 10/05/24 05:18 10/05/24 05:18 Microbiology Results Microbiology 10/04/24 18:49 Urine - Voided Urine Culture - Preliminary Escherichia coli Meds Allergies and Active Meds Allergies acetaminophen (Percocet) Allergy (Unknown, Verified 10/04/24 17:12) swelling of throat aspirin Allergy (Unknown, Verified 10/04/24 17:12) Swelling of Lip/Tongue/Throat, lips turn blue if takes 2 oxycodone (From Percocet) Allergy (Unknown, Verified 10/04/24 17:12) Swelling of Lip/Tongue/Throat, swelling of throat amlodipine Adverse Reaction (Verified 10/04/24 17:12) Edema Active Meds: Active Medications Generic Name Dose Route Start Last Admin Trade Name Freq PRN Reason Stop Dose Admin Aspirin 81 mg 10/05/24 09:00 10/05/24 08:13 Aspirin 81 Mg Tab.Chew PO 10/05/25 08:59 81 mg QAM VANE Administration Atorvastatin Calcium 20 mg 10/04/24 22:00 10/04/24 21:44 Atorvastatin 20 Mg Tablet PO 10/04/25 21:59 20 mg QHS VANE Administration Carvedilol 25 mg 10/05/24 08:00 10/05/24 08:13 Carvedilol 25 Mg Tablet PO 10/05/25 07:59 25 mg BID.WITH.MEALS VANE Administration Clonidine HCl 0.2 mg 10/05/24 11:45 10/05/24 11:41 Clonidine 0.2 Mg Tablet PO 10/05/25 11:44 0.2 mg BID VANE Administration Cyanocobalamin 1,000 mcg 10/05/24 09:00 10/05/24 08:13 Cyanocobalamin 1,000 Mcg Tablet PO 10/05/25 08:59 1,000 mcg QAM VANE Administration Cyclobenzaprine HCl 10 mg 10/04/24 19:14 10/04/24 21:44 Cyclobenzaprine 10 Mg Tablet PO 10/04/25 19:10 10 mg QHS PRN Administration Back Spasms Dextrose 25 gm 10/04/24 18:22 10/04/24 18:56 Dextrose 50% In Water 25 Gm/50 Ml Syringe IV-PUSH 10/04/25 18:21 25 gm PRN PRN Administration Hypoglycemia Dextrose 0 gm 10/04/24 20:30 Dextrose 50% In Water 25 Gm/50 Ml Syringe IV-PUSH 10/04/25 20:29 PRN PRN Hypoglycemia Enoxaparin Sodium 30 mg 10/05/24 10:00 10/05/24 11:37 Enoxaparin 30 Mg/0.3 Ml Syringe SUBCUT 10/05/25 09:59 30 mg DAILY@10 VANE Administration Ergocalciferol 1,250 mcg 10/05/24 09:00 10/05/24 08:13 Ergocalciferol 1,250 Mcg (50,000 Units) Capsule PO 10/05/25 08:59 1,250 mcg Tu@0900 VANE Administration Ferrous Sulfate 324 mg 10/05/24 12:00 10/05/24 11:37 Ferrous Sulfate 324 Mg Tablet.Dr PO 10/05/25 11:59 324 mg DAILY.WITH.LUNCH VANE Administration Furosemide 40 mg 10/05/24 16:00 Furosemide 40 Mg Tablet PO 10/05/25 15:59 BID@0800,1600 [facility] Glucose 0 gm 10/04/24 20:30 Dextrose 40% Gel 15 Gm Tube PO 10/04/25 20:29 PRN PRN Hypoglycemia Hydralazine HCl 100 mg 10/04/24 22:00 10/05/24 08:13 Hydralazine 50 Mg Tablet PO 10/04/25 21:59 100 mg TID VANE Administration Insulin Aspart 0 units 10/04/24 22:00 10/05/24 11:38 Insulin Aspart 300 Units/3 Ml SUBCUT 10/04/25 21:59 2 units TID.WM.HS VANE Administration Protocol Insulin Glargine 10 units 10/05/24 09:00 10/05/24 08:14 Insulin Glargine 300 Units/3 Ml Insuln.Pen SUBCUT 10/05/25 08:59 10 units BID VANE Administration Isosorbide Mononitrate 30 mg 10/05/24 09:00 10/05/24 08:13 Isosorbide Mononitrate 24hr Er 30 Mg Tab.Er.24h PO 10/05/25 08:59 30 mg QAM VANE Administration Multivitamins 1 tab 10/05/24 09:00 10/05/24 08:13 Multivitamin 1 Tab Tablet PO 10/05/25 08:59 1 tab DAILY VANE Administration Nitroglycerin 0.4 mg 10/04/24 19:09 Nitroglycerin 0.4 Mg Tab.Subl SUBLINGUAL 10/04/25 19:08 Q5M PRN Chest Pain Ondansetron HCl 4 mg 10/04/24 19:14 Ondansetron 4 Mg/2 Ml Vial IV-PUSH 10/04/25 19:13 Q8H PRN Nausea And Vomiting Sodium Chloride 0 ml 10/04/24 17:12 10/04/24 20:00 Sodium Chloride 0.9 % 10 Ml Syringe IV-PUSH 10/04/25 17:11 10 ml PRN PRN Administration Flush A&P - Hospitalist Assessment/Plan (1) Acute hyperglycemia: (2) Dyslipidemia: (3) CAD (coronary artery disease): (4) Diabetes: (5) HTN (hypertension): (6) Hypertensive urgency: Plan This is a 74-year-old male with significant past medical history of hypertension, CKD stage IV, history of CAD status post stent, diabetes, hyperlipidemia presented to [facility] ED for hyperkalemia. Patient had had a lab work done at PCP and was recommended to come to [facility]'s ED for elevated potassium. Patient denied any symptoms like chest pain shortness of breath palpitation. 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 Lab work here shows potassium of 6.1 down from 6.6 done in the lab by PCP. He is bicarb was 19.7 and his creatinine was 2.62. His glucose waselevated to 455. His liver enzymes was within normal limit. EKG bedside shows normal sinus rhythm. Patient got insulin and Lokelma in the ED. Assessment-patient was hypertensive on presentation with concern for MEAGHAN with slight increase in creatinine compared to recent creatinine. His blood pressurehas significantly improved and is normotensive. I will check his BMP again tomorrow to see for any improvement to see if it is acute versus chronic kidney disease. Plan: -Admit to the regular nursing floor -Follow-up BMP -Nephrology is consulted appreciate recommendation-recommended to hold spironolactone in setting ofhyperkalemia and discontinue on discharge. He alsorecommended adding clonidine 0.2 mg twice a day. And continue on Coreg and hydralazine. And Lasix was resumed. -Continue long-acting insulin with sliding scale -Continuous telemetry -Follow-up morning labs -Continue POA medication-hydralazine, aspirin, Lipitor, carvedilol, Flexeril asneeded, iron pills, multivitamin Full code Documented By: Matheus Robison MD 10/05/24 1514 Signed By: 10/05/24 1520 [facility]12-31-2024 Consult note Author Tito Martinez [facility] Note Date/Time October 05, 2024 11:41am [facility] ENTER [address] [place] [address] Nephrology Consult Note Signed Patient: Gage Lugo MR#: [id number] : 1950 Acct:[id number] Age/Sex: 74 / M Adm Date: 4 Loc: Room: [address] [place] [address] Type: ADM IN Attending Dr: Matheus Robison MD Copies to: MD Tito Salinas MD Kaitlin E Schwerer, DO~ Providers Consult Date: 10/05/24 Requesting Provider: Matheus Robison MD Primary Care Provider: Lolita Adorno DO HPI Reason for Consult: Acute hyperkalemia with a chronic kidney disease stage IV History of Present Illness: 74-year-old male patient past medical history of chronic kidney disease stage IVfollows with Dr. Holden in the renal office, history of hyperkalemia, diabetes and hypertension, coronary disease status post PCI in the past. Patient was sent to the emergency room by his PCP for labs showing hyperkalemia potassium 6.6. In the emergency room potassium was found to be slightly better at 6.1. EKG did not show peaked T wave patient was treated medically with Lokelma, insulin and 1 dose of Lasix. Lab also showed creatinine 2.6 mg deciliter which is close to lab from last month of 2.4 mg deciliter I reviewed the patient's home medications. He is on isosorbide mononitrate, hydralazine, Lasix, and Aldactone for hypertension management. Patient stated he has been compliant with low potassium diet Systolic blood pressure when he presented to the hospital was elevated at 200. Patient was given 1 dose of labetalol. Blood pressure this morning 154/82 Patient has no complaint. Denied NSAID use. He stated his blood pressure has been elevated at home. He does monitor blood pressure twice daily Review of Systems Review of Systems Review of systems: 12 system review is negative today [facility] Medical History (Updated 10/05/24 @ 11:38 by Tito Martinez MD) History of cataract Poor historian Smoker Kidney stone Myocardial infarct 2 STENTS Diabetes Hyperlipemia HTN (hypertension) Surgical History History of back surgery Neck History of orthopedic surgery 1st rib removed History of cardiac catheterization H/O heart artery stent Family History Sister Brain aneurysm Brother Myocardial infarction Mother Diabetes mellitus, type 2 Father Diabetes Mother Diabetes Presence of cardiac pacemaker Social History Smoking Status: Current every day smoker Tobacco Type: cigarettes Substance Use Type: None Meds Medications & Allergies Allergies acetaminophen (Percocet) Allergy (Unknown, Verified 10/04/24 17:12) swelling of throat aspirin Allergy (Unknown, Verified 10/04/24 17:12) Swelling of Lip/Tongue/Throat, lips turn blue if takes 2 oxycodone (From Percocet) Allergy (Unknown, Verified 10/04/24 17:12) Swelling of Lip/Tongue/Throat, swelling of throat amlodipine Adverse Reaction (Verified 10/04/24 17:12) Edema Home Medications nitroglycerin 0.4 mg sublingual tablet 0.4 mg sublingual Q5M PRN Chest Pain 30 days #30 tabs 08/26/17 [Rx Confirmed 10/04/24] ivveupqy-[id number]-fahhgim gluconate 9 mg iron/15 mL (15 mL) oral liquid (Centrum) 15ml PO DAILY 08/08/20 [History Confirmed 10/04/24] atorvastatin 20 mg tablet 20 mg PO QHS 08/09/20 [History Confirmed 10/04/24] aspirin 81 mg chewable tablet 81 mg PO QAM 09/18/22 [History Confirmed 10/04/24] cyanocobalamin (vitamin B-12) 1,000 mcg tablet (Vitamin B-12) 1,000 mcg PO QAM 09/18/22 [History Confirmed 10/04/24] isosorbide mononitrate 30 mg tablet,extended release 24 hr 30 mg PO QAM 09/18/22[History Confirmed 10/04/24] carvedilol 25 mg tablet 25 mg PO BID.WITH.MEALS 30 days #60 tabs 10/06/22 [Rx Confirmed 10/04/24] insulin glargine 100 unit/mL (3 mL) subcutaneous pen (Lantus Solostar U-100 Insulin) 10 unit subcut BID 12/25/23 [History Confirmed 10/04/24] cetirizine 10 mg tablet 10 mg PO BID 07/23/24 [History Confirmed 10/04/24] famotidine 20 mg tablet 20 mg PO DAILY 07/23/24 [History Confirmed 10/04/24] gabapentin 300 mg capsule 300 mg PO BID 07/23/24 [History Confirmed 10/04/24] ergocalciferol (vitamin D2) 1,250 mcg (50,000 unit) capsule 1,250 mcg PO QWEEK #14 caps 08/30/24 [Rx Confirmed 10/04/24] hydralazine 100 mg tablet 100 mg PO TID 08/30/24 [History Confirmed 10/04/24] cyclobenzaprine 10 mg tablet See Rx Instructions .Route .COMPLEX #30 tabs 10/04/24 [Rx Confirmed 10/04/24] ferrous sulfate 325 mg (65 mg iron) tablet See Rx Instructions .Route .COMPLEX #90 tabs 10/04/24 [Rx Confirmed 10/04/24] furosemide 40 mg tablet 40 mg PO DAILY 10/04/24 [History Confirmed 10/04/24] glipizide 5 mg tablet mg 10/04/24 [History] pantoprazole 40 mg tablet,delayed release mg PO 10/04/24 [History] spironolactone 25 mg tablet 25 mg PO DAILY #90 tabs 10/04/24 [Rx Confirmed 10/04/24] Active Medications: Active Medications Aspirin (Aspirin 81 Mg Tab.Chew) 81 mg PO QAM [facility] Stop: 10/05/25 08:59 Last Admin: 10/05/24 08:13 Dose: 81 mg Atorvastatin Calcium (Atorvastatin 20 Mg Tablet) 20 mg PO QHS VANE Stop: 10/04/25 21:59 Last Admin: 10/04/24 21:44 Dose: 20 mg Carvedilol (Carvedilol 25 Mg Tablet) 25 mg PO BID.WITH.MEALS [facility] Stop: 10/05/25 07:59 Last Admin: 10/05/24 08:13 Dose: 25 mg Cyanocobalamin (Cyanocobalamin 1,000 Mcg Tablet) 1,000 mcg PO QAM [facility] Stop: 10/05/25 08:59 Last Admin: 10/05/24 08:13 Dose: 1,000 mcg Cyclobenzaprine HCl (Cyclobenzaprine 10 Mg Tablet) 10 mg PO QHS PRN PRN Reason: Back Spasms Stop: 10/04/25 19:10 Last Admin: 10/04/24 21:44 Dose: 10 mg Dextrose (Dextrose 50% In Water 25 Gm/50 Ml Syringe) 25 gm IV-PUSH PRN PRN PRN Reason: Hypoglycemia Stop: 10/04/25 18:21 Last Admin: 10/04/24 18:56 Dose: 25 gm Dextrose (Dextrose 50% In Water 25 Gm/50 Ml Syringe) 0 gm IV-PUSH PRN PRN PRN Reason: Hypoglycemia Stop: 10/04/25 20:29 Enoxaparin Sodium (Enoxaparin 30 Mg/0.3 Ml Syringe) 30 mg SUBCUT DAILY@10 [facility] Stop: 10/05/25 09:59 Ergocalciferol (Ergocalciferol 1,250 Mcg (50,000 Units) Capsule) 1,250 mcg PO Tu@0900 [facility] Stop: 10/05/25 08:59 Last Admin: 10/05/24 08:13 Dose: 1,250 mcg Ferrous Sulfate (Ferrous Sulfate 324 Mg Tablet.Dr) 324 mg PO DAILY.WITH.LUNCH [facility] Stop: 10/05/25 11:59 Glucose (Dextrose 40% Gel 15 Gm Tube) 0 gm PO PRN PRN PRN Reason: Hypoglycemia Stop: 10/04/25 20:29 Hydralazine HCl (Hydralazine 50 Mg Tablet) 100 mg PO TID VANE Stop: 10/04/25 21:59 Last Admin: 10/05/24 08:13 Dose: 100 mg Insulin Aspart (Insulin Aspart 300 Units/3 Ml) 0 units SUBCUT TID.WM.[facility]; Protocol Stop: 10/04/25 21:59 Last Admin: 10/05/24 07:50 Dose: Not Given Insulin Glargine (Insulin Glargine 300 Units/3 Ml Insuln.Pen) 10 units SUBCUT BID [facility] Stop: 10/05/25 08:59 Last Admin: 10/05/24 08:14 Dose: 10 units Isosorbide Mononitrate (Isosorbide Mononitrate 24hr Er 30 Mg Tab.Er.24h) 30 mg PO QAM VANE Stop: 10/05/25 08:59 Last Admin: 10/05/24 08:13 Dose: 30 mg Multivitamins (Multivitamin 1 Tab Tablet) 1 tab PO DAILY VANE Stop: 10/05/25 08:59 Last Admin: 10/05/24 08:13 Dose: 1 tab Nitroglycerin (Nitroglycerin 0.4 Mg Tab.Subl) 0.4 mg SUBLINGUAL Q5M PRN PRN Reason: Chest Pain Stop: 10/04/25 19:08 Ondansetron HCl (Ondansetron 4 Mg/2 Ml Vial) 4 mg IV-PUSH Q8H PRN PRN Reason: Nausea And Vomiting Stop: 10/04/25 19:13 Sodium Chloride (Sodium Chloride 0.9 % 10 Ml Syringe) 0 ml IV-PUSH PRN PRN PRN Reason: Flush Stop: 10/04/25 17:11 Last Admin: 10/04/24 20:00 Dose: 10 ml Exam Physical Exam Vital Signs: Temp Pulse Resp BP Pulse Ox O2 Del Method 98.5 F 76 16 163/82 H 98 Room Air 10/05/24 08:00 10/05/24 08:00 10/05/24 08:00 10/05/24 08:00 10/05/24 08:00 10/05/24 08:00 Narrative: General: No acute distress Head :atraumatic normocephalic Eyes: PERRLA. Neck: no JVD no bruit. Heart: S1-S2. RRR Respiratory: Clear to auscultation. No wheezing. No crackles Abdomen: Soft, positive bowel sounds,no tenderness. Neurology: Awake alert oriented x3. No focal deficits Extremity. No cyanosis. No edema Skin: No skin rash Results - Nephrology Labs 10/05/24 05:18 10/05/24 05:18 Labs: 10/04/24 10/04/24 10/05/24 17:30 18:49 05:18 BUN 39 H 40 H Creatinine 2.62 H 2.63 H Phosphorus 3.9 Albumin 4.0 3.5 Urine Color Light-yellow Urine Appearance Cloudy A Urine pH 5.5 Ur Specific [place] 1.011 Urine Protein 20 H Urine Glucose (UA) >=1000 H Urine Ketones Negative Urine Occult Blood Negative Urine Nitrite Negative Ur Leukocyte Esterase 4+ H Urine RBC 1-2 Urine WBC 50-100 H Urine Bacteria Rare Radiology Impressions Impressions - last 24 hours: Any impression(s) listed above is documentation that was entered by the reading physician into a diagnostic report(s) for Gage Lugo. I have reviewed the report(s) and am incorporating any findings in the treatment plan of this patient where applicable. A&P - Nephrology Assessment/Plan (1) Hyperkalemia: Assessment/Problem Details: Is likely related to advanced CKD and being on potassium sparing diuretic namelyAldactone. Patient has been compliant with low potassium diet. Patient presented with potassium 6.6. Hyperkalemia improved with medical treatment of Lokelma, Lasix and insulin (2) Chronic kidney disease, stage IV (severe): Assessment/Problem Details: Patient follows with Dr. 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 Baseline creatinine around 2.4 (3) Hypertensive chronic kidney disease with stage 1 through stage 4 chronic kidney disease, or unspecified chronic kidney disease: Assessment/Problem Details: Patient is on isosorbide mononitrate, hydralazine, Lasix and spironolactone at home for hypertension management. Blood pressure has been out of control at home. Patient said he has been following low-salt diet. Currently Aldactone onhold due to hyperkalemia. Blood pressure remains elevated (4) Type 2 diabetes mellitus with diabetic chronic kidney disease: Assessment/Problem Details: Patient has known history of type 2 diabetes. He is on glargine and glipizide for diabetes management. Patient presented with blood glucose level close to 400 and received insulin in the emergency room Plan * There is no indication for renal placement therapy. Kidney function close to baseline and hyperkalemia improved with medical treatment * Spironolactone currently on hold. Please stop spironolactone at discharge * Blood pressure has been uncontrolled. Will add clonidine 0.2 mg twice daily. Will continue same dose of Coreg, hydralazine and losartan monitor rate. Will continue to monitor blood pressure adjust medication as needed * Hyperkalemia corrected with medical treatment. Emphasized the need of strict low potassium diet. Will resume home Lasix 40 mg p.o. daily to maintain normal potassium level * Check CBC renal function panel in am Documented By: Tito Martinez MD 10/05/24 1135 Signed By: <Electronically signed by Tito Martinez MD> 10/05/24 1141 [facility] Work Phone: [phone] 313-612712-31-2024 [place] [address] Nephrology Consult Note Signed Patient: Gage Lugo MR#: [id number] : 1950 Acct:[id number] Age/Sex: 74 / M Adm Date: 4 Loc: Room: [address] [place] [address] Type: ADM IN Attending Dr: Matheus Robison MD Copies to: MD Tito Salinas MD Kaitlin E Schwerer, DO~ Providers Consult Date: 10/05/24 Requesting Provider: Matheus Robison MD Primary Care Provider: Lolita Adorno DO HPI Reason for Consult: Acute hyperkalemia with a chronic kidney disease stage IV History of Present Illness: 74-year-old male patient past medical history of chronic kidney disease stage IVfollows with Dr. Holden in the renal office, history of hyperkalemia, diabetes and hypertension, coronary disease statuspost PCI in the past. Patient was sent to the emergency room by his PCP for labs showing hyperkalemia potassium 6.6. In the emergency room potassium was found to be slightly better at 6.1. EKG did not show peaked T wave patient was treated medically with Lokelma, insulin and 1 dose of Lasix. Lab also showed creatinine 2.6 mg deciliter which is close to lab from last month of 2.4 mg deciliter I reviewed the patient's home medications. He is on isosorbide mononitrate, hydralazine, Lasix, andAldactone for hypertension management. Patient stated he has been compliant with low potassium diet Systolic blood pressure when he presented to the hospital was elevated at 200. Patient was given 1 dose of labetalol. Blood pressure this morning 154/82 Patient has no complaint. Denied NSAID use. He stated his blood pressure has been elevated at home.He does monitor blood pressure twice daily Review of Systems Review of Systems Review of systems: 12 system review is negative today [facility] Medical History (Updated 10/05/24 @ 11:38 by Tito Martinez MD) History of cataract Poor historian Smoker Kidney stone Myocardial infarct 2 STENTS Diabetes Hyperlipemia HTN (hypertension) Surgical History History of back surgery Neck History of orthopedic surgery 1st rib removed History of cardiac catheterization H/O heart artery stent Family History Sister Brain aneurysm Brother Myocardial infarction Mother Diabetes mellitus, type 2 Father Diabetes Mother Diabetes Presence of cardiac pacemaker Social History Smoking Status: Current every day smoker Tobacco Type: cigarettes Substance Use Type: None Meds Medications & Allergies Allergies acetaminophen (Percocet) Allergy (Unknown, Verified 10/04/24 17:12) swelling of throat aspirin Allergy (Unknown, Verified 10/04/24 17:12) Swelling of Lip/Tongue/Throat, lips turn blue if takes 2 oxycodone (From Percocet) Allergy (Unknown, Verified 10/04/24 17:12) Swelling of Lip/Tongue/Throat, swelling of throat amlodipine Adverse Reaction (Verified 10/04/24 17:12) Edema Home Medications nitroglycerin 0.4 mg sublingual tablet 0.4 mg sublingual Q5M PRN Chest Pain 30 days #30 tabs 08/26/17 [Rx Confirmed 10/04/24] jainyqnt-smms-dpvhtqr gluconate 9 mg iron/15 mL (15 mL) oral liquid (Centrum) 15ml PO DAILY 08/08/20 [History Confirmed 10/04/24] atorvastatin 20 mg tablet 20 mg PO QHS 08/09/20 [History Confirmed 10/04/24] aspirin 81 mg chewable tablet 81 mg PO QAM 09/18/22 [History Confirmed 10/04/24] cyanocobalamin (vitamin B-12) 1,000 mcg tablet (Vitamin B-12) 1,000 mcg PO QAM 09/18/22 [History Confirmed 10/04/24] isosorbide mononitrate 30 mg tablet,extended release 24 hr 30 mg PO QAM 09/18/22[History Confirmed 10/04/24] carvedilol 25 mg tablet 25 mg PO BID.WITH.MEALS 30 days #60 tabs 10/06/22 [Rx Confirmed 10/04/24] insulin glargine 100 unit/mL (3 mL) subcutaneous pen (Lantus Solostar U-100 Insulin) 10 unit subcutBID 12/25/23 [History Confirmed 10/04/24] cetirizine 10 mg tablet 10 mg PO BID 07/23/24 [History Confirmed 10/04/24] famotidine 20 mg tablet 20 mg PO DAILY 07/23/24 [History Confirmed 10/04/24] gabapentin 300 mg capsule 300 mg PO BID 07/23/24 [History Confirmed 10/04/24] ergocalciferol (vitamin D2) 1,250 mcg (50,000 unit) capsule 1,250 mcg PO QWEEK #14 caps 08/30/24 [Rx Confirmed 10/04/24] hydralazine 100 mg tablet 100 mg PO TID 08/30/24 [History Confirmed 10/04/24] cyclobenzaprine 10 mg tablet See Rx Instructions .Route .COMPLEX #30 tabs 10/04/24 [Rx Confirmed 10/04/24] ferrous sulfate 325 mg (65 mg iron) tablet See Rx Instructions .Route .COMPLEX #90 tabs 10/04/24 [Rx Confirmed 10/04/24] furosemide 40 mg tablet 40 mg PO DAILY 10/04/24 [History Confirmed 10/04/24] glipizide 5 mg tablet mg 10/04/24 [History] pantoprazole 40 mg tablet,delayed release mg PO 10/04/24 [History] spironolactone 25 mg tablet 25 mg PO DAILY #90 tabs 10/04/24 [Rx Confirmed 10/04/24] Active Medications: Active Medications Aspirin (Aspirin 81 Mg Tab.Chew) 81 mg PO QAM VANE Stop: 10/05/25 08:59 Last Admin: 10/05/24 08:13 Dose: 81 mg Atorvastatin Calcium (Atorvastatin 20 Mg Tablet) 20 mg PO QHS VANE Stop: 10/04/25 21:59 Last Admin: 10/04/24 21:44 Dose: 20 mg Carvedilol (Carvedilol 25 Mg Tablet) 25 mg PO BID.WITH.MEALS [facility] Stop: 10/05/25 07:59 Last Admin: 10/05/24 08:13 Dose: 25 mg Cyanocobalamin (Cyanocobalamin 1,000 Mcg Tablet) 1,000 mcg PO QAM VANE Stop: 10/05/25 08:59 Last Admin: 10/05/24 08:13 Dose: 1,000 mcg Cyclobenzaprine HCl (Cyclobenzaprine 10 Mg Tablet) 10 mg PO QHS PRN PRN Reason: Back Spasms Stop: 10/04/25 19:10 Last Admin: 10/04/24 21:44 Dose: 10 mg Dextrose (Dextrose 50% In Water 25 Gm/50 Ml Syringe) 25 gm IV-PUSH PRN PRN PRN Reason: Hypoglycemia Stop: 10/04/25 18:21 Last Admin: 10/04/24 18:56 Dose: 25 gm Dextrose (Dextrose 50% In Water 25 Gm/50 Ml Syringe) 0 gm IV-PUSH PRN PRN PRN Reason: Hypoglycemia Stop: 10/04/25 20:29 Enoxaparin Sodium (Enoxaparin 30 Mg/0.3 Ml Syringe) 30 mg SUBCUT DAILY@10 [facility] Stop: 10/05/25 09:59 Ergocalciferol (Ergocalciferol 1,250 Mcg (50,000 Units) Capsule) 1,250 mcg PO Tu@0900 [facility] Stop: 10/05/25 08:59 Last Admin: 10/05/24 08:13 Dose: 1,250 mcg Ferrous Sulfate (Ferrous Sulfate 324 Mg Tablet.Dr) 324 mg PO DAILY.WITH.LUNCH [facility] Stop: 10/05/25 11:59 Glucose (Dextrose 40% Gel 15 Gm Tube) 0 gm PO PRN PRN PRN Reason: Hypoglycemia Stop: 10/04/25 20:29 Hydralazine HCl (Hydralazine 50 Mg Tablet) 100 mg PO TID VANE Stop: 10/04/25 21:59 Last Admin: 10/05/24 08:13 Dose: 100 mg Insulin Aspart (Insulin Aspart 300 Units/3 Ml) 0 units SUBCUT TID.[facility]; Protocol Stop: 10/04/25 21:59 Last Admin: 10/05/24 07:50 Dose: Not Given Insulin Glargine (Insulin Glargine 300 Units/3 Ml Insuln.Pen) 10 units SUBCUT BID [facility] Stop: 10/05/25 08:59 Last Admin: 10/05/24 08:14 Dose: 10 units Isosorbide Mononitrate (Isosorbide Mononitrate 24hr Er 30 Mg Tab.Er.24h) 30 mg PO QAM [facility] Stop: 10/05/25 08:59 Last Admin: 10/05/24 08:13 Dose: 30 mg Multivitamins (Multivitamin 1 Tab Tablet) 1 tab PO DAILY [facility]ANE Stop: 10/05/25 08:59 Last Admin: 10/05/24 08:13 Dose: 1 tab Nitroglycerin (Nitroglycerin 0.4 Mg Tab.Subl) 0.4 mg SUBLINGUAL Q5M PRN PRN Reason: Chest Pain Stop: 10/04/25 19:08 Ondansetron HCl (Ondansetron 4 Mg/2 Ml Vial) 4 mg IV-PUSH Q8H PRN PRN Reason: Nausea And Vomiting Stop: 10/04/25 19:13 Sodium Chloride (Sodium Chloride 0.9 % 10 Ml Syringe) 0 ml IV-PUSH PRN PRN PRN Reason: Flush Stop: 10/04/25 17:11 Last Admin: 10/04/24 20:00 Dose: 10 ml Exam Physical Exam Vital Signs: Temp Pulse Resp BP Pulse Ox O2 Del Method 98.5 F 76 16 163/82 H 98 Room Air 10/05/24 08:00 10/05/24 08:00 10/05/24 08:00 10/05/24 08:00 10/05/24 08:00 10/05/24 08:00 Narrative: General: No acute distress Head :atraumatic normocephalic Eyes: PERRLA. Neck: no JVD no bruit. Heart: S1-S2. RRR Respiratory: Clear to auscultation. No wheezing. No crackles Abdomen: Soft, positive bowel sounds,no tenderness. Neurology: Awake alert oriented x3. No focal deficits Extremity. No cyanosis. No edema Skin: No skin rash Results - Nephrology Labs 10/05/24 05:18 10/05/24 05:18 Labs: 10/04/24 10/04/24 10/05/24 17:30 18:49 05:18 BUN 39 H 40 H Creatinine 2.62 H 2.63 H Phosphorus 3.9 Albumin 4.0 3.5 Urine Color Light-yellow Urine Appearance Cloudy A Urine pH 5.5 Ur Specific [place] 1.011 Urine Protein 20 H Urine Glucose (UA) >=1000 H Urine Ketones Negative Urine Occult Blood Negative Urine Nitrite Negative Ur Leukocyte Esterase 4+ H Urine RBC 1-2 Urine WBC 50-100 H Urine Bacteria Rare Radiology Impressions Impressions - last 24 hours: Any impression(s) listed above is documentation that was entered by the reading physician into a diagnostic report(s) for Gage Lugo. I have reviewed the report(s) and am incorporating any findings in the treatment plan of this patient where applicable. A&P - Nephrology Assessment/Plan (1) Hyperkalemia: Assessment/Problem Details: Is likely related to advanced CKD and being on potassium sparing diuretic namelyAldactone. Patient has been compliant with low potassium diet. Patient presented with potassium 6.6. Hyperkalemia improved with medical treatment of Lokelma, Lasix and insulin (2) Chronic kidney disease, stage IV (severe): Assessment/Problem Details: Patient follows with Dr. 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 Baseline creatinine around 2.4 (3) Hypertensive chronic kidney disease with stage 1 through stage 4 chronic kidney disease, or unspecified chronic kidney disease: Assessment/Problem Details: Patient is on isosorbide mononitrate, hydralazine, Lasix and spironolactone at home for hypertension management. Blood pressure has been out of control at home. Patient said he has been following low-salt diet. Currently Aldactone onhold due to hyperkalemia. Blood pressure remains elevated (4) Type 2 diabetes mellitus with diabetic chronic kidney disease: Assessment/Problem Details: Patient has known history of type 2 diabetes. He is on glargine and glipizide for diabetes management. Patient presented with blood glucose level close to 400 and received insulin in the emergency room Plan * There is no indication for renal placement therapy. Kidney function close to baseline and hyperkalemia improved with medical treatment * Spironolactone currently on hold. Please stop spironolactone at discharge * Blood pressure has been uncontrolled. Will add clonidine 0.2 mg twice daily. Will continue same dose of Coreg, hydralazine and losartan monitor rate. Will continue to monitor blood pressure adjust medication as needed * Hyperkalemia corrected with medical treatment. Emphasized the need of strict low potassium diet. Will resume home Lasix 40 mg p.o. daily to maintain normal potassium level * Check CBC renal function panel in am Documented By: Tito Martinez MD 10/05/24 1135 Signed By: 10/05/24 1141 [facility]12-30-2024 History and physical note Author Matheus Robison [facility] Note Date/Time October 04, 2024 8:38pm [facility] ENTER [address] [place] [address] Hospitalist H&P Signed Patient: Gage Lugo MR#: [id number] : 1950 Acct:[id number] Age/Sex: 74 / M Adm Date: 4 Loc: Room: [address] [place] [address] Type: ADM IN Attending Dr: Matheus Robison MD Copies to: MD Lolita Salinas, DO~ HPI DATE OF EXAMINATION: 10/04/24 CHIEF COMPLAINT: Elevated potassium HISTORY OF PRESENT ILLNESS: This is a 74-year-old male with significant past medical history of hypertension, CKD stage IV, history of CAD status post stent, diabetes, hyperlipidemia presented to [facility] ED for hyperkalemia. Patient had had a lab work done at PCP and was recommended to come to [facility] ED for elevated potassium. Patient denied any symptoms like chest pain shortness of breath palpitation. 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 Lab work here shows potassium of 6.1 down from 6.6 done in the lab by PCP. He is bicarb was 19.7 and his creatinine was 2.62. His glucose waselevated to 455. His liver enzymes was within normal limit. EKG bedside shows normal sinus rhythm. Patient got insulin and Lokelma in the ED. Review of Systems Review of Systems All other systems reviewed & are negative unless noted below or in HPI [facility] Medical History (Updated 10/04/24 @ 20:37 by Matheus Robison MD) History of cataract Poor historian Smoker Kidney stone Myocardial infarct 2 STENTS Diabetes Hyperlipemia HTN (hypertension) Surgical History (Updated 10/04/24 @ 19:06 by Leti Romero RN) History of back surgery Neck History of orthopedic surgery 1st rib removed History of cardiac catheterization H/O heart artery stent Family History Sister Brain aneurysm Brother Myocardial infarction Mother Diabetes mellitus, type 2 Father Diabetes Mother Diabetes Presence of cardiac pacemaker Social History Smoking Status: Current every day smoker Tobacco Type: cigarettes Substance Use Type: None Meds Medications and Allergies Allergies acetaminophen (Percocet) Allergy (Unknown, Verified 10/04/24 17:12) swelling of throat aspirin Allergy (Unknown, Verified 10/04/24 17:12) Swelling of Lip/Tongue/Throat, lips turn blue if takes 2 oxycodone (From Percocet) Allergy (Unknown, Verified 10/04/24 17:12) Swelling of Lip/Tongue/Throat, swelling of throat amlodipine Adverse Reaction (Verified 10/04/24 17:12) Edema Home Medications nitroglycerin 0.4 mg sublingual tablet 0.4 mg sublingual Q5M PRN Chest Pain 30 days #30 tabs 08/26/17 [Rx Confirmed 10/04/24] aihjgorr-vovy-lyhygsh gluconate 9 mg iron/15 mL (15 mL) oral liquid (Centrum) 15ml PO DAILY 08/08/20 [History Confirmed 10/04/24] atorvastatin 20 mg tablet 20 mg PO QHS 08/09/20 [History Confirmed 10/04/24] aspirin 81 mg chewable tablet 81 mg PO QAM 09/18/22 [History Confirmed 10/04/24] cyanocobalamin (vitamin B-12) 1,000 mcg tablet (Vitamin B-12) 1,000 mcg PO QAM 09/18/22 [History Confirmed 10/04/24] isosorbide mononitrate 30 mg tablet,extended release 24 hr 30 mg PO QAM 09/18/22[History Confirmed 10/04/24] carvedilol 25 mg tablet 25 mg PO BID.WITH.MEALS 30 days #60 tabs 10/06/22 [Rx Confirmed 10/04/24] insulin glargine 100 unit/mL (3 mL) subcutaneous pen (Lantus Solostar U-100 Insulin) 10 unit subcut BID 12/25/23 [History Confirmed 10/04/24] cetirizine 10 mg tablet 10 mg PO BID 07/23/24 [History Confirmed 10/04/24] famotidine 20 mg tablet 20 mg PO DAILY 07/23/24 [History Confirmed 10/04/24] gabapentin 300 mg capsule 300 mg PO BID 07/23/24 [History Confirmed 10/04/24] ergocalciferol (vitamin D2) 1,250 mcg (50,000 unit) capsule 1,250 mcg PO QWEEK #14 caps 08/30/24 [Rx Confirmed 10/04/24] hydralazine 100 mg tablet 100 mg PO TID 08/30/24 [History Confirmed 10/04/24] cyclobenzaprine 10 mg tablet See Rx Instructions .Route .COMPLEX #30 tabs 10/04/24 [Rx Confirmed 10/04/24] ferrous sulfate 325 mg (65 mg iron) tablet See Rx Instructions .Route .COMPLEX #90 tabs 10/04/24 [Rx Confirmed 10/04/24] furosemide 40 mg tablet mg 10/04/24 [History] glipizide 5 mg tablet mg 10/04/24 [History] pantoprazole 40 mg tablet,delayed release mg PO 10/04/24 [History] spironolactone 25 mg tablet 25 mg PO DAILY #90 tabs 10/04/24 [Rx Confirmed 10/04/24] Exam Physical Exam Vital Signs: Temp Pulse Resp BP Pulse Ox O2 Del Method 97.7 F 85 18 198/91 H 99 Room Air 10/04/24 17:14 10/04/24 19:59 10/04/24 19:05 10/04/24 19:59 10/04/24 19:05 10/04/24 19:05 Narrative: General: Awake alert, no acute distress HEENT: head atraumatic, normocephalic, moist mucous membranes Neck: supple no masses, no lymphadenopathy CVS: regular rate and rhythm, no murmurs or gallops Respiratory: clear to auscultation bilaterally, no wheezing or crackles, symmetric expansion GI: soft, nondistended, nontender, positive bowel sounds with no organomegaly Extremity: moves all extremities, no restrictions of movements, no calf tenderness Neuro: AOx3, CN II-VII intact. Moves all extremities in all planes of motion. Skin: intact no rashes or lesions Results - Hospitalist H&P Lab Results Labs: Laboratory Last Values Corrected WBC 8.1 X10E3/uL (4.1-10.5) 10/04/24 17:30 Uncorrected WBC Count 8.1 x10E3/uL (4.1-10.5) 10/04/24 17:30 RBC 4.13 x10E6/uL (3.90-5.60) 10/04/24 17:30 Hgb 11.2 g/dL (13.0-17.0) L 10/04/24 17:30 Hct 34.9 % (38.8-50.0) L 10/04/24 17:30 MCV 84.6 fl (83.5-101) 10/04/24 17:30 MCH 27.1 pg (27.5-35.2) L 10/04/24 17:30 MCHC 32.1 g/dL (32.5-35.6) L 10/04/24 17:30 RDW 13.9 % (12.0-14.8) 10/04/24 17:30 Plt Count 197 x10E3/uL (150-450) 10/04/24 17:30 MPV 8.0 fl (6.6-10.1) 10/04/24 17:30 Neut % (Auto) 63.3 % (.) 10/04/24 17:30 Lymph % (Auto) 22.2 % (.) 10/04/24 17:30 [place] % (Auto) 10.1 % (.) 10/04/24 17:30 Eos % (Auto) 3.6 % (.) 10/04/24 17:30 Baso % (Auto) 0.8 % (.) 10/04/24 17:30 Nucleat RBC Rel Count 0.1 /100 WBC (0-0.5) 10/04/24 17:30 Neut # (Auto) 5.1 x10E3/uL (1.8-7.7) 10/04/24 17:30 Lymph # (Auto) 1.8 x10E3/uL (1.00-4.8) 10/04/24 17:30 [place] # (Auto) 0.8 x10E3/uL (0.0-0.8) 10/04/24 17:30 Eos # (Auto) 0.3 x10E3/uL (0.0-0.45) 10/04/24 17:30 Baso # (Auto) 0.1 x10E3/uL (0.0-0.2) 10/04/24 17:30 Monocyte Dist Width 16.61 % (0.00-20.00) 10/04/24 17:30 Sample Site Venous 10/04/24 17:45 VBG pH 7.32 (7.32-7.43) 10/04/24 17:45 VBG pCO2 34.4 mmHg (38.0-50.0) L 10/04/24 17:45 VBG pO2 73.8 mmHg (35.0-45.0) H 10/04/24 17:45 VBG HCO3 17.4 mmol/L (23.0-29.0) L 10/04/24 17:45 VBG Total CO2 18.4 mmol/L (24.0-29.0) L 10/04/24 17:45 VBG O2 Saturation 95.2 % (73.0-76.0) H* 10/04/24 17:45 VBG O2 Content 6.8 mmol/L (6.6-9.7) 10/04/24 17:45 VBG Base Excess -7.8 mmol/L (-3.0-3.0) L 10/04/24 17:45 FiO2 21 % 10/04/24 17:45 Critical Value 10/04/24 17:45 PHA Creatinine Clear 24.49 10/04/24 17:30 Sodium 134 mmol/L (136-145) L 10/04/24 17:30 Potassium 6.1 mmol/L (3.5-5.1) H* 10/04/24 17:30 Chloride 107 mmol/L (98-107) 10/04/24 17:30 Carbon Dioxide 19.7 mmol/L (21.0-31.0) L 10/04/24 17:30 Anion Gap 13.4 mEq/L (6.0-15.0) 10/04/24 17:30 BUN 39 mg/dL (7-25) H 10/04/24 17:30 Creatinine 2.62 mg/dL (0.70-1.30) H 10/04/24 17:30 Est GFR (CKD-EPI) 24.862 mL/Min 10/04/24 17:30 Glucose 455 mg/dL (70-100) H D 10/04/24 17:30 Calcium 9.0 mg/dL (8.6-10.3) 10/04/24 17:30 Total Bilirubin 0.4 mg/dl (0.3-1.0) 10/04/24 17:30 AST 16 U/L (13-39) 10/04/24 17:30 ALT 19 U/L (7-52) 10/04/24 17:30 Alkaline Phosphatase 98 U/L (34-104) 10/04/24 17:30 Total Protein 6.6 gm/dL (6.4-8.9) 10/04/24 17:30 Albumin 4.0 gm/dL (3.5-5.7) 10/04/24 17:30 Globulin 2.6 gm/dL 10/04/24 17:30 Albumin/Globulin Ratio 1.5 10/04/24 17:30 Urine Color Light-yellow (Yellow) 10/04/24 18:49 Urine Appearance Cloudy (Clear) A 10/04/24 18:49 Urine pH 5.5 (5.0-9.0) 10/04/24 18:49 Ur Specific [place] 1.011 (1.001-1.030) 10/04/24 18:49 Urine Protein 20 mg/dL (Negative) H 10/04/24 18:49 Urine Glucose (UA) >=1000 mg/dL (Normal) H 10/04/24 18:49 Urine Ketones Negative (Negative) 10/04/24 18:49 Urine Occult Blood Negative (Negative) 10/04/24 18:49 Urine Nitrite Negative (Negative) 10/04/24 18:49 Urine Bilirubin Negative (Negative) 10/04/24 18:49 Urine Urobilinogen Normal mg/dL (Normal) 10/04/24 18:49 Ur Leukocyte Esterase 4+ (Negative) H 10/04/24 18:49 Urine RBC 1-2 /HPF (0-4) 10/04/24 18:49 Urine WBC 50-100 /HPF (0-4) H 10/04/24 18:49 Urine WBC Clumps Moderate /LPF (None Seen) H 10/04/24 18:49 Ur Squamous Epith Cells 1-2 /HPF (0-2) 10/04/24 18:49 Urine Bacteria Rare /HPF (None Seen) 10/04/24 18:49 Hyaline Casts None /LPF (0-8) 10/04/24 18:49 Urine Mucus Rare /LPF 10/04/24 18:49 ABG Interpretation ABG results: 10/04/24 17:45 VBG pH 7.32 VBG pCO2 34.4 L VBG pO2 73.8 H VBG HCO3 17.4 L VBG Total CO2 18.4 L VBG O2 Saturation 95.2 H* VBG Base Excess -7.8 L Assessment & Plan Assessment/Plan (1) Acute hyperglycemia: (2) Dyslipidemia: (3) CAD (coronary artery disease): (4) Diabetes: (5) HTN (hypertension): (6) Hypertensive urgency: Plan This is a 74-year-old male with significant past medical history of hypertension, CKD stage IV, history of CAD status post stent, diabetes, hyperlipidemia presented to [facility] ED for hyperkalemia. Patient had had a lab work done at PCP and was recommended to come to [facility]'s ED for elevated potassium. Patient denied any symptoms like chest pain shortness of breath palpitation. 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 Lab work here shows potassium of 6.1 down from 6.6 done in the lab by PCP. He is bicarb was 19.7 and his creatinine was 2.62. His glucose waselevated to 455. His liver enzymes was within normal limit. EKG bedside shows normal sinus rhythm. Patient got insulin and Lokelma in the ED. Plan: -Admit to the regular nursing floor -Follow-up BMP -Nephrology is consulted appreciate recommendation -Continue long-acting insulin with sliding scale -Continuous telemetry -Follow-up morning labs -Continue POA medication-hydralazine, aspirin, Lipitor, carvedilol, Flexeril asneeded, iron pills, multivitamin Full code IP vs OBS Justification Based on differential dx, clinical care plan, and risk of adverse events, if untreated, in my clinical judgement this patient requires an acute care setting as: INPATIENT because of an expectation of an over 2 midnight stay. Estimated length of stay (# of days): 3 Documented By: Matheus Robison MD 10/04/242030 Signed By: <Electronically signed by Matheus Robison MD> 10/04/242037 [facility] Work Phone: 1(317) 715-954712-30-2024 [place] [address] Hospitalist H&P Signed Patient: Gage Lugo MR#: [id number] : 1950 Acct:[id number] Age/Sex: 74 / M Adm Date: 4 Loc: Room: [address] [place] [address] Type: ADM IN Attending Dr: Matheus Robison MD Copies to: MD Lolita Salinas, DO~ HPI DATE OF EXAMINATION: 10/04/24 CHIEF COMPLAINT: Elevated potassium HISTORY OF PRESENT ILLNESS: This is a 74-year-old male with significant past medical history of hypertension, CKD stage IV, history of CAD status post stent, diabetes, hyperlipidemia presented to [facility] ED for hyperkalemia. Patient had had a lab work done at PCP and was recommended to come to [facility] ED for elevated potassium. Patient denied any symptoms like chest pain shortness of breath palpitation. 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 Lab work here shows potassium of 6.1 down from 6.6 done in the lab by PCP. He is bicarb was 19.7 and his creatinine was 2.62. His glucose waselevated to 455. His liver enzymes was within normal limit. EKG bedside shows normal sinus rhythm. Patient got insulin and Lokelma in the ED. Review of Systems Review of Systems All other systems reviewed & are negative unless noted below or in HPI [facility] Medical History (Updated 10/04/24 @ 20:37 by Matheus Robison MD) History of cataract Poor historian Smoker Kidney stone Myocardial infarct 2 STENTS Diabetes Hyperlipemia HTN (hypertension) Surgical History (Updated 10/04/24 @ 19:06 by Leti Romero RN) History of back surgery Neck History of orthopedic surgery 1st rib removed History of cardiac catheterization H/O heart artery stent Family History Sister Brain aneurysm Brother Myocardial infarction Mother Diabetes mellitus, type 2 Father Diabetes Mother Diabetes Presence of cardiac pacemaker Social History Smoking Status: Current every day smoker Tobacco Type: cigarettes Substance Use Type: None Meds Medications and Allergies Allergies acetaminophen (Percocet) Allergy (Unknown, Verified 10/04/24 17:12) swelling of throat aspirin Allergy (Unknown, Verified 10/04/24 17:12) Swelling of Lip/Tongue/Throat, lips turn blue if takes 2 oxycodone (From Percocet) Allergy (Unknown, Verified 10/04/24 17:12) Swelling of Lip/Tongue/Throat, swelling of throat amlodipine Adverse Reaction (Verified 10/04/24 17:12) Edema Home Medications nitroglycerin 0.4 mg sublingual tablet 0.4 mg sublingual Q5M PRN Chest Pain 30 days #30 tabs 08/26/17 [Rx Confirmed 10/04/24] rbkeyonn-qqhh-rbzdckx gluconate 9 mg iron/15 mL (15 mL) oral liquid (Centrum) 15ml PO DAILY 08/08/20 [History Confirmed 10/04/24] atorvastatin 20 mg tablet 20 mg PO QHS 08/09/20 [History Confirmed 10/04/24] aspirin 81 mg chewable tablet 81 mg PO QAM 09/18/22 [History Confirmed 10/04/24] cyanocobalamin (vitamin B-12) 1,000 mcg tablet (Vitamin B-12) 1,000 mcg PO QAM 09/18/22 [History Confirmed 10/04/24] isosorbide mononitrate 30 mg tablet,extended release 24 hr 30 mg PO QAM 09/18/22[History Confirmed 10/04/24] carvedilol 25 mg tablet 25 mg PO BID.WITH.MEALS 30 days #60 tabs 10/06/22 [Rx Confirmed 10/04/24] insulin glargine 100 unit/mL (3 mL) subcutaneous pen (Lantus Solostar U-100 Insulin) 10 unit subcutBID 12/25/23 [History Confirmed 10/04/24] cetirizine 10 mg tablet 10 mg PO BID 07/23/24 [History Confirmed 10/04/24] famotidine 20 mg tablet 20 mg PO DAILY 07/23/24 [History Confirmed 10/04/24] gabapentin 300 mg capsule 300 mg PO BID 07/23/24 [History Confirmed 10/04/24] ergocalciferol (vitamin D2) 1,250 mcg (50,000 unit) capsule 1,250 mcg PO QWEEK #14 caps 08/30/24 [Rx Confirmed 10/04/24] hydralazine 100 mg tablet 100 mg PO TID 08/30/24 [History Confirmed 10/04/24] cyclobenzaprine 10 mg tablet See Rx Instructions .Route .COMPLEX #30 tabs 10/04/24 [Rx Confirmed 10/04/24] ferrous sulfate 325 mg (65 mg iron) tablet See Rx Instructions .Route .COMPLEX #90 tabs 10/04/24 [Rx Confirmed 10/04/24] furosemide 40 mg tablet mg 10/04/24 [History] glipizide 5 mg tablet mg 10/04/24 [History] pantoprazole 40 mg tablet,delayed release mg PO 10/04/24 [History] spironolactone 25 mg tablet 25 mg PO DAILY #90 tabs 10/04/24 [Rx Confirmed 10/04/24] Exam Physical Exam Vital Signs: Temp Pulse Resp BP Pulse Ox O2 Del Method 97.7 F 85 18 198/91 H 99 Room Air 10/04/24 17:14 10/04/24 19:59 10/04/24 19:05 10/04/24 19:59 10/04/24 19:05 10/04/24 19:05 Narrative: General: Awake alert, no acute distress HEENT: head atraumatic, normocephalic, moist mucous membranes Neck: supple no masses, no lymphadenopathy CVS: regular rate and rhythm, no murmurs or gallops Respiratory: clear to auscultation bilaterally, no wheezing or crackles, symmetric expansion GI: soft, nondistended, nontender, positive bowel sounds with no organomegaly Extremity: moves all extremities, no restrictions of movements, no calf tenderness Neuro: AOx3, CN II-VII intact. Moves all extremities in all planes of motion. Skin: intact no rashes or lesions Results - Hospitalist H&P Lab Results Labs: Laboratory Last Values Corrected WBC 8.1 X10E3/uL (4.1-10.5) 10/04/24 17:30 Uncorrected WBC Count 8.1 x10E3/uL (4.1-10.5) 10/04/24 17:30 RBC 4.13 x10E6/uL (3.90-5.60) 10/04/24 17:30 Hgb 11.2 g/dL (13.0-17.0) L 10/04/24 17:30 Hct 34.9 % (38.8-50.0) L 10/04/24 17:30 MCV 84.6 fl (83.5-101) 10/04/24 17:30 MCH 27.1 pg (27.5-35.2) L 10/04/24 17:30 MCHC 32.1 g/dL (32.5-35.6) L 10/04/24 17:30 RDW 13.9 % (12.0-14.8) 10/04/24 17:30 Plt Count 197 x10E3/uL (150-450) 10/04/24 17:30 MPV 8.0 fl (6.6-10.1) 10/04/24 17:30 Neut % (Auto) 63.3 % (.) 10/04/24 17:30 Lymph % (Auto) 22.2 % (.) 10/04/24 17:30 Kleberg % (Auto) 10.1 % (.) 10/04/24 17:30 Eos % (Auto) 3.6 % (.) 10/04/24 17:30 Baso % (Auto) 0.8 % (.) 10/04/24 17:30 Nucleat RBC Rel Count 0.1 /100 WBC (0-0.5) 10/04/24 17:30 Neut # (Auto) 5.1 x10E3/uL (1.8-7.7) 10/04/24 17:30 Lymph # (Auto) 1.8 x10E3/uL (1.00-4.8) 10/04/24 17:30 Kleberg # (Auto) 0.8 x10E3/uL (0.0-0.8) 10/04/24 17:30 Eos # (Auto) 0.3 x10E3/uL (0.0-0.45) 10/04/24 17:30 Baso # (Auto) 0.1 x10E3/uL (0.0-0.2) 10/04/24 17:30 Monocyte Dist Width 16.61 % (0.00-20.00) 10/04/24 17:30 Sample Site Venous 10/04/24 17:45 VBG pH 7.32 (7.32-7.43) 10/04/24 17:45 VBG pCO2 34.4 mmHg (38.0-50.0) L 10/04/24 17:45 VBG pO2 73.8 mmHg (35.0-45.0) H 10/04/24 17:45 VBG HCO3 17.4 mmol/L (23.0-29.0) L 10/04/24 17:45 VBG Total CO2 18.4 mmol/L (24.0-29.0) L 10/04/24 17:45 VBG O2 Saturation 95.2 % (73.0-76.0) H* 10/04/24 17:45 VBG O2 Content 6.8 mmol/L (6.6-9.7) 10/04/24 17:45 VBG Base Excess -7.8 mmol/L (-3.0-3.0) L 10/04/24 17:45 FiO2 21 % 10/04/24 17:45 Critical Value 10/04/24 17:45 PHA Creatinine Clear 24.49 10/04/24 17:30 Sodium 134 mmol/L (136-145) L 10/04/24 17:30 Potassium 6.1 mmol/L (3.5-5.1) H* 10/04/24 17:30 Chloride 107 mmol/L (98-107) 10/04/24 17:30 Carbon Dioxide 19.7 mmol/L (21.0-31.0) L 10/04/24 17:30 Anion Gap 13.4 mEq/L (6.0-15.0) 10/04/24 17:30 BUN 39 mg/dL (7-25) H 10/04/24 17:30 Creatinine 2.62 mg/dL (0.70-1.30) H 10/04/24 17:30 Est GFR (CKD-EPI) 24.862 mL/Min 10/04/24 17:30 Glucose 455 mg/dL (70-100) H D 10/04/24 17:30 Calcium 9.0 mg/dL (8.6-10.3) 10/04/24 17:30 Total Bilirubin 0.4 mg/dl (0.3-1.0) 10/04/24 17:30 AST 16 U/L (13-39) 10/04/24 17:30 ALT 19 U/L (7-52) 10/04/24 17:30 Alkaline Phosphatase 98 U/L (34-104) 10/04/24 17:30 Total Protein 6.6 gm/dL (6.4-8.9) 10/04/24 17:30 Albumin 4.0 gm/dL (3.5-5.7) 10/04/24 17:30 Globulin 2.6 gm/dL 10/04/24 17:30 Albumin/Globulin Ratio 1.5 10/04/24 17:30 Urine Color Light-yellow (Yellow) 10/04/24 18:49 Urine Appearance Cloudy (Clear) A 10/04/24 18:49 Urine pH 5.5 (5.0-9.0) 10/04/24 18:49 Ur Specific [place] 1.011 (1.001-1.030) 10/04/24 18:49 Urine Protein 20 mg/dL (Negative) H 10/04/24 18:49 Urine Glucose (UA) >=1000 mg/dL (Normal) H 10/04/24 18:49 Urine Ketones Negative (Negative) 10/04/24 18:49 Urine Occult Blood Negative (Negative) 10/04/24 18:49 Urine Nitrite Negative (Negative) 10/04/24 18:49 Urine Bilirubin Negative (Negative) 10/04/24 18:49 Urine Urobilinogen Normal mg/dL (Normal) 10/04/24 18:49 Ur Leukocyte Esterase 4+ (Negative) H 10/04/24 18:49 Urine RBC 1-2 /HPF (0-4) 10/04/24 18:49 Urine WBC 50-100 /HPF (0-4) H 10/04/24 18:49 Urine WBC Clumps Moderate /LPF (None Seen) H 10/04/24 18:49 Ur Squamous Epith Cells 1-2 /HPF (0-2) 10/04/24 18:49 Urine Bacteria Rare /HPF (None Seen) 10/04/24 18:49 Hyaline Casts None /LPF (0-8) 10/04/24 18:49 Urine Mucus Rare /LPF 10/04/24 18:49 ABG Interpretation ABG results: 10/04/24 17:45 VBG pH 7.32 VBG pCO2 34.4 L VBG pO2 73.8 H VBG HCO3 17.4 L VBG Total CO2 18.4 L VBG O2 Saturation 95.2 H* VBG Base Excess -7.8 L Assessment & Plan Assessment/Plan (1) Acute hyperglycemia: (2) Dyslipidemia: (3) CAD (coronary artery disease): (4) Diabetes: (5) HTN (hypertension): (6) Hypertensive urgency: Plan This is a 74-year-old male with significant past medical history of hypertension, CKD stage IV, history of CAD status post stent, diabetes, hyperlipidemia presented to [facility] ED for hyperkalemia. Patient had had a lab work done at [facility] and was recommended to come to [facility]'s ED for elevated potassium. Patient denied any symptoms like chest pain shortness of breath palpitation. 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 Lab work here shows potassium of 6.1 down from 6.6 done in the lab by PCP. He is bicarb was 19.7 and his creatinine was 2.62. His glucose waselevated to 455. His liver enzymes was within normal limit. EKG bedside shows normal sinus rhythm. Patient got insulin and Lokelma in the ED. Plan: -Admit to the regular nursing floor -Follow-up BMP -Nephrology is consulted appreciate recommendation -Continue long-acting insulin with sliding scale -Continuous telemetry -Follow-up morning labs -Continue POA medication-hydralazine, aspirin, Lipitor, carvedilol, Flexeril asneeded, iron pills, multivitamin Full code IP vs OBS Justification Based on differential dx, clinical care plan, and risk of adverse events, if untreated, in my clinical judgement this patient requires an acute care setting as: INPATIENT because of an expectation ofan over 2 midnight stay. Estimated length of stay (# of days): 3 Documented By: Matheus Robison MD 10/04/242030 Signed By: 10/04/242037 [facility]11-25-2024 Evaluation note* Diagnosis Onset Date Resolution Status Admit Date Anemia of renal disease acute N ov2023 2:45pm Hypertensive chronic kidney disease with stage 1 through stage 4 chronic ki acute August 2:45pm Secondary hyperparathyroidism acute August 30, 2024 2:45pm Type 2 diabetes mellitus wit h diabetic chronic kidney disease acute August 30, 2024 2:45pm Hyperkalemia resolved August 2:45pm Chronic kidney disease, stag e III (moderate) deleted August 30, 024 2:45pm Dyslipidemia deleted August 2:45pm CAD (coronary artery disease) acute October 04, 2024 6:44pm Chronic kidney disease, stag e IV (severe) acute October 04, 024 6:44pm HTN (hypertension) acute Decemb er 2023 6:44pm Hypertensive chronic kidney disease with stage 1 through stage 4 chronic ki acute September 6:44pm Type 2 diabetes mellitus wit h diabetic chronic kidney disease acute October 04, 2024 6:44pm Acute hyperglycemia resolved Decem minnie 2023 6:44pm Acute hyperkalemia resolved Decemb er 2023 6:44pm Hyperkalemia resolved September 6:44pm Hypertensive urgency resolved Dece mber 2023 6:44pm Diabetes deleted October 04, 2024 6:44pm Dyslipidemia deleted September 6:44pm Chronic kidney disease, stag e IV (severe) acute October 06 5:43pm Chronic renal insufficiency acute October 06, 2024 5:43pm Diabetes deleted October 06, 025 5:43pm Hypertensive chronic kidney disease with stage 1 through stage 4 chronic ki acute October 06, 2024 5:43pm Acute hyperkalemia resolved [email or web address] 5:43pm Hypertensive urgency resolved Paulo [email or web address] 5:43pm Near syncope resolved October 06, 2024 5:43pm Acute kidney injury superimp osed on CKD inactive October 06 5:43pm E. coli UTI deleted October 06, 2024 5:43pm Chronic kidney disease, stag e IV (severe) acute October 12 10:58am Diabetes mellitus acute October 12, 2024 10:58am Gynecomastia acute October 12, 2024 10:58am HTN (hypertension) acute 2024 10:58am Hypertensive chronic kidney disease with stage 1 through stage 4 chronic ki acute October 12, 2024 10:58am Type 2 diabetes mellitus wit h diabetic chronic kidney disease acute October 12, 2024 10:58am Acute hyperkalemia resolved 2024 10:58am [facility] Work Phone: 1(460) 444-576711-25-2024 Evaluation note* Diagnosis Onset Date Resolution Status Admit Date Anemia of renal disease acute N ovember 2023 2:45pm Hypertensive chronic kidney disease with stage 1 through stage 4 chronic ki acute August 2:45pm Secondary hyperparathyroidism acute August 30, 2024 2:45pm Type 2 diabetes mellitus wit h diabetic chronic kidney disease acute August 30, 2024 2:45pm Hyperkalemia resolved August 2:45pm Chronic kidney disease, stag e III (moderate) deleted August 30, 2 024 2:45pm Dyslipidemia deleted August 2:45pm CAD (coronary artery disease) acute October 04, 2024 6:44pm Chronic kidney disease, stag e IV (severe) acute October 04, 024 6:44pm HTN (hypertension) acute Decemb er 2023 6:44pm Hypertensive chronic kidney disease with stage 1 through stage 4 chronic ki acute September 6:44pm Type 2 diabetes mellitus wit h diabetic chronic kidney disease acute October 04, 2024 6:44pm Acute hyperglycemia resolved Decem minnie 2023 6:44pm Acute hyperkalemia resolved Decemb er 2023 6:44pm Hyperkalemia resolved September 6:44pm Hypertensive urgency resolved Dece mber 2023 6:44pm Diabetes deleted October 04, 2024 6:44pm Dyslipidemia deleted September 6:44pm Chronic kidney disease, stag e IV (severe) acute October 06 5:43pm Chronic renal insufficiency acute October 06, 2024 5:43pm Diabetes deleted October 06, 025 5:43pm Hypertensive chronic kidney disease with stage 1 through stage 4 chronic ki acute October 06, 2024 5:43pm Acute hyperkalemia resolved 2024 5:43pm Hypertensive urgency resolved 2024 5:43pm Near syncope resolved October 06, 2024 5:43pm Acute kidney injury superimp osed on CKD inactive October 06 5:43pm E. coli UTI deleted October 06, 2024 5:43pm Chronic kidney disease, stag e IV (severe) acute October 12 10:58am Diabetes mellitus acute October 12, 2024 10:58am Gynecomastia acute October 12, 2024 10:58am HTN (hypertension) acute 2024 10:58am Hypertensive chronic kidney disease with stage 1 through stage 4 chronic ki acute October 12, 2024 10:58am Type 2 diabetes mellitus wit h diabetic chronic kidney disease acute October 12, 2024 10:58am Acute hyperkalemia resolved 2024 10:58am Anemia of renal disease acute J anuary 2024 8:31am Hypertensive chronic kidney disease with stage 1 through stage 4 chronic ki acute October 27, 2024 8:31am Secondary hyperparathyroidism acute October 27, 2024 8:31am Type 2 diabetes mellitus wit h diabetic chronic kidney disease acute October 27, 2024 8:31am Chronic kidney disease, stag e III (moderate) deleted October 27 8:31am Dyslipidemia deleted October 8:31am [facility] Work Phone: 1(286) 585-247610-18-2024 Evaluation note* Diagnosis Onset Date Resolution Status Admit Date HTN (hypertension) acute Octobe r 2023 10:35am Type 2 diabetes mellitus wit h diabetic chronic kidney disease acute July 23 10:35am [facility] Work Phone: 1(615) 920-918110-18-2024 Evaluation note* Diagnosis Onset Date Resolution Status Admit Date HTN (hypertension) acute Octobe r 2023 10:35am Type 2 diabetes mellitus wit h diabetic chronic kidney disease acute July 23, 2024 10:35am Anemia of renal disease acute N ov2023 2:45pm Chronic kidney disease, stag e III (moderate) acute August 30, 2 024 2:45pm Dyslipidemia acute August 2:45pm Hyperkalemia acute August 2:45pm Hypertensive chronic kidney disease with stage 1 through stage 4 chronic ki acute August 2:45pm Secondary hyperparathyroidism acute August 30, 2024 2:45pm Type 2 diabetes mellitus wit h diabetic chronic kidney disease acute August 30, 2024 2:45pm Acute hyperglycemia acute Decem minnie 2023 6:44pm Acute hyperkalemia acute Decemb er 2023 6:44pm CAD (coronary artery disease) acute October 04, 2024 6:44pm Chronic kidney disease, stag e IV (severe) acute October 04, 2 024 6:44pm Dyslipidemia acute September 6:44pm HTN (hypertension) acute Decemb er 2023 6:44pm Hyperkalemia acute September 6:44pm Hypertensive chronic kidney disease with stage 1 through stage 4 chronic ki acute September 6:44pm Hypertensive urgency acute Dece mber 2023 6:44pm Type 2 diabetes mellitus wit h diabetic chronic kidney disease acute October 04, 2024 6:44pm Diabetes chronic October 04, 2024 6:44pm [facility] Work Phone: 1([phone] 150-452410-18-2024 Evaluation note* Diagnosis Onset Date Resolution Status Admit Date HTN (hypertension) acute Octobe r 2023 10:35am Type 2 diabetes mellitus wit h diabetic chronic kidney disease acute July 23, 2024 10:35am Anemia of renal disease acute N ov2023 2:45pm Chronic kidney disease, stag e III (moderate) acute August 30, 2 024 2:45pm Dyslipidemia acute August 2:45pm Hyperkalemia acute August 2:45pm Hypertensive chronic kidney disease with stage 1 through stage 4 chronic ki acute August 2:45pm Secondary hyperparathyroidism acute August 30, 2024 2:45pm Type 2 diabetes mellitus wit h diabetic chronic kidney disease acute August 30, 2024 2:45pm Acute hyperglycemia acute Decem minnie 2023 6:44pm Acute hyperkalemia acute Decemb er 2023 6:44pm CAD (coronary artery disease) acute October 04, 2024 6:44pm Chronic kidney disease, stag e IV (severe) acute October 04, 024 6:44pm Dyslipidemia acute September 6:44pm HTN (hypertension) acute Decemb er 2023 6:44pm Hyperkalemia acute September 6:44pm Hypertensive chronic kidney disease with stage 1 through stage 4 chronic ki acute September 6:44pm Hypertensive urgency acute Dece mber 2023 6:44pm Type 2 diabetes mellitus wit h diabetic chronic kidney disease acute October 04, 2024 6:44pm Diabetes chronic October 04, 2024 6:44pm Acute hyperkalemia acute Januar 2024 5:43pm Chronic kidney disease, stag e IV (severe) acute October 06 5:43pm Chronic renal insufficiency acute October 06, 2024 5:43pm Diabetes mellitus acute October 06, 2024 5:43pm E. coli UTI acute October 06, 2024 5:43pm Hypertensive urgency acute Paulo elo 2024 5:43pm Near syncope acute October 06, 2024 5:43pm [facility] Work Phone: 1([phone]) 504-605410-18-2024 Evaluation note* Diagnosis Onset Date Resolution Status Admit Date HTN (hypertension) acute Octobe r 2023 10:35am Type 2 diabetes mellitus wit h diabetic chronic kidney disease acute July 23, 2024 10:35am Anemia of renal disease acute N ov2023 2:45pm Chronic kidney disease, stag e III (moderate) acute August 30, 2 024 2:45pm Dyslipidemia acute August 2:45pm Hyperkalemia acute August 2:45pm Hypertensive chronic kidney disease with stage 1 through stage 4 chronic ki acute August 2:45pm Secondary hyperparathyroidism acute August 30, 2024 2:45pm Type 2 diabetes mellitus wit h diabetic chronic kidney disease acute August 30, 2024 2:45pm Acute hyperglycemia acute Decem minnie 2023 6:44pm Acute hyperkalemia acute Decemb er 2023 6:44pm CAD (coronary artery disease) acute October 04, 2024 6:44pm Chronic kidney disease, stag e IV (severe) acute October 04, 024 6:44pm Dyslipidemia acute September 6:44pm HTN (hypertension) acute Dece er 2023 6:44pm Hyperkalemia acute September 6:44pm Hypertensive chronic kidney disease with stage 1 through stage 4 chronic ki acute September 6:44pm Hypertensive urgency acute Dece er 2023 6:44pm Type 2 diabetes mellitus wit h diabetic chronic kidney disease acute October 04, 2024 6:44pm Diabetes chronic October 04, 2024 6:44pm Acute hyperkalemia acute Januar y 2024 5:43pm Chronic kidney disease, stag e IV (severe) acute October 06 5:43pm Chronic renal insufficiency acute October 06, 2024 5:43pm Diabetes chronic October 06, 2 025 5:43pm E. coli UTI acute October 06, 2024 5:43pm Hypertensive chronic kidney disease with stage 1 through stage 4 chronic ki acute October 06, 2024 5:43pm Hypertensive urgency acute Paulo elo 2024 5:43pm Near syncope acute October 06, 2024 5:43pm Acute kidney injury superimp osed on CKD inactive October 06 5:43pm [facility] Work Phone: 1([phone] 696-203810-18-2024 Evaluation note* Diagnosis Onset Date Resolution Status Admit Date HTN (hypertension) acute Octobe r 2023 10:35am Type 2 diabetes mellitus wit h diabetic chronic kidney disease acute July 23, 2024 10:35am Anemia of renal disease acute N ov2023 2:45pm Chronic kidney disease, stag e III (moderate) acute August 30, 2 024 2:45pm Dyslipidemia acute August 2:45pm Hypertensive chronic kidney disease with stage 1 through stage 4 chronic ki acute August 2:45pm Secondary hyperparathyroidism acute August 30, 2024 2:45pm Type 2 diabetes mellitus wit h diabetic chronic kidney disease acute August 30, 2024 2:45pm Hyperkalemia resolved August 2:45pm CAD (coronary artery disease) acute October 04, 2024 6:44pm Chronic kidney disease, stag e IV (severe) acute October 04, 2 024 6:44pm Dyslipidemia acute September 6:44pm HTN (hypertension) acute Decemb er 2023 6:44pm Hypertensive chronic kidney disease with stage 1 through stage 4 chronic ki acute September 6:44pm Type 2 diabetes mellitus wit h diabetic chronic kidney disease acute October 04, 2024 6:44pm Diabetes chronic October 04, 2024 6:44pm Acute hyperglycemia resolved Decem minnie 2023 6:44pm Acute hyperkalemia resolved Decemb er 2023 6:44pm Hyperkalemia resolved September 6:44pm Hypertensive urgency resolved Dece mber 2023 6:44pm Chronic kidney disease, stag e IV (severe) acute October 06 5:43pm Chronic renal insufficiency acute October 06, 2024 5:43pm Diabetes chronic October 06, 2 025 5:43pm E. coli UTI acute October 06, 2024 5:43pm Hypertensive chronic kidney disease with stage 1 through stage 4 chronic ki acute October 06, 2024 5:43pm Acute hyperkalemia resolved Januar y 2024 5:43pm Hypertensive urgency resolved Paulo elo 2024 5:43pm Near syncope resolved October 06, 2024 5:43pm Acute kidney injury superimp osed on CKD inactive October 06 5:43pm Chronic kidney disease, stag e IV (severe) acute October 12 10:58am Chronic renal insufficiency acute October 12, 2024 10:58am Diabetes mellitus acute October 12, 2024 10:58am [facility] Work Phone: 1([phone]) 981-983210-18-2024 Evaluation note* Diagnosis Onset Date Resolution Status Admit Date HTN (hypertension) acute 2023 10:35am Type 2 diabetes mellitus wit h diabetic chronic kidney disease acute July 23, 2024 10:35am Anemia of renal disease acute N ov2023 2:45pm Hypertensive chronic kidney disease with stage 1 through stage 4 chronic ki acute August 2:45pm Secondary hyperparathyroidism acute August 30, 2024 2:45pm Type 2 diabetes mellitus wit h diabetic chronic kidney disease acute August 30, 2024 2:45pm Hyperkalemia resolved August 2:45pm Chronic kidney disease, stag e III (moderate) deleted August 30, 024 2:45pm Dyslipidemia deleted August 2:45pm CAD (coronary artery disease) acute October 04, 2024 6:44pm Chronic kidney disease, stag e IV (severe) acute October 04, 024 6:44pm HTN (hypertension) acute Decemb er 2023 6:44pm Hypertensive chronic kidney disease with stage 1 through stage 4 chronic ki acute September 6:44pm Type 2 diabetes mellitus wit h diabetic chronic kidney disease acute October 04, 2024 6:44pm Acute hyperglycemia resolved Decem minnie 2023 6:44pm Acute hyperkalemia resolved Decemb er 2023 6:44pm Hyperkalemia resolved September 6:44pm Hypertensive urgency resolved Dece mber 2023 6:44pm Diabetes deleted October 04, 2024 6:44pm Dyslipidemia deleted September 6:44pm Chronic kidney disease, stag e IV (severe) acute October 06 5:43pm Chronic renal insufficiency acute October 06, 2024 5:43pm Diabetes deleted October 06 5:43pm Hypertensive chronic kidney disease with stage 1 through stage 4 chronic ki acute October 06, 2024 5:43pm Acute hyperkalemia resolved 2024 5:43pm Hypertensive urgency resolved [email or web address] 5:43pm Near syncope resolved October 06, 2024 5:43pm Acute kidney injury superimp osed on CKD inactive October 06 5:43pm E. coli UTI deleted October 06, 2024 5:43pm Chronic kidney disease, stag e IV (severe) acute October 12 10:58am Diabetes mellitus acute October 12, 2024 10:58am Gynecomastia acute October 12, 2024 10:58am HTN (hypertension) acute 2024 10:58am Hypertensive chronic kidney disease with stage 1 through stage 4 chronic ki acute October 12, 2024 10:58am Type 2 diabetes mellitus wit h diabetic chronic kidney disease acute October 12, 2024 10:58am Acute hyperkalemia resolved 2024 10:58am [facility] Work Phone: [phone] [id number] History of Present illness Narrative* Annabelle Brooks RN - 06/05/2024 12:06 PM EDT Patient's daughter arrived to pick and shovel man patient. CM and attending notified of discharge. Patient's belongings gathered and patient and family walked down to grab outpatient pharmacy meds. Discharge paperwork given to family for home health care. * Rafat Murillo MD - 06/04/2024 7:39 PM EDT [facility] Neurology IN-PATIENT SERVICE [facility] Progress Note Date: 06/04/2024 Patient name: Gage Lugo Date of admission: 05/23/2024 6:12 PM Account: [id number] Date of : 1950 PCP: Lolita Adorno DO Room: [facility]/0544-01 Code Status: Full Code Chief Complaint: Chief Complaint Patient presents with Pain Bilat shoulders, back and bilat legs Interval hx: The patient was seen and examined at bedside. Is vitally stable, alert and oriented. Alert orientedx 4. Continues to report pain BL shoulders 8/10 severity Family appealed DC. Waiting on placement at snf. Brief History of Present Illness: The patient is a 74 y.o. / male who presents with Pain in the Bilateral shoulders, back and bilateral legs. He has a past medical history significant for CAD s/p PTCA, type 2 diabetesmellitus, CKD stage III, HTN, HLD and is a current smoker. He initially presented to the ED with a chief complaint of pain, worse in his right leg with inability to bear weight on it. Patient states this pain is a radicular pain with movement that starts in his foot and shoots up the back of the leg into the buttocks and lower back. The pain occurred all of a sudden on 05/23 when he woke up and isonly present with movement or touch/pressure on the extremity. It is a sharp 10/10 pain when it does occur. In addition to that, patient is also complaining of pain in the bilateral shoulders that prevents him from raising either arm above 90 degrees. He recently went to [facility] where initial workup was negative except for elevated ESR and CRP. Per the patient, he underwent a lumbar disc surgery L4-L5 with cage placement in 2022 for left footdrop and left leg abnormal sensation. Since the procedure, the weakness has improved but is still present and had increased sensation to touch but still feels like his left foot is always cold. Additionally he had a cervical fusion around ~1984. On presentation, his total CK levels were 31 and myoglobin 65, CRP was elevated at 124, ESR was elevated at 49 and Aldolase was 2.9. His CBC showed hemoglobin 11.0, hematocrit 33.8, WBC 12.5 and platelet count of 290. MRI cervical on 05/24/24 shows stenosis of C3-C5 with T2 hyperintensity at C4-C5 and MRI lumbar shows worse stenosis of L3-L4. Patient taken to the OR on 05/27/2024 for C3-C7 PCDF andextension of the previous lumbar fusion to L3. 06/02/24 Patient continues to report bilateral shoulder pain, but denies weakness or sensory deficits. Receiving PRN dilaudid and Rison. Waiting for placement. Unable to work with PT/OT due to pain. 06/02: Pre-cert for SNF started. VSS PT --continued therapy after discharge Interval History: Insurance denied DC. Pending placement Past Medical History: Past Medical History: Diagnosis Date CAD (coronary artery disease) stents x2 from multiple angiograms Diabetes mellitus (HCC) Hyperlipidemia Hypertension Past Surgical History: Past Surgical History: Procedure Laterality Date CARDIAC CATHETERIZATION , , CERVICAL FUSION with collar bone revision 1983 CERVICAL FUSION N/A 05/27/2024 POSTERIOR CERVICAL DECOMPRESSION FUSION CERVICAL THREE THROUGH SEVEN performed by Edin Bridges DO at [facility] OR CERVICAL SPINE SURGERY 05/27/2024 POSTERIOR CERVICAL DECOMPRESSION FUSION CERVICAL THREE THROUGH SEVEN+EXTENSION OF POSTERIOR LUMBAR FUSION TO LUMBAR THREE LUMBAR DISC SURGERY cage placed 2022 LUMBAR FUSION N/A 05/27/2024 EXTENSION OF POSTERIOR LUMBAR FUSION TO LUMBAR THREE performed by Edin Bridges DO at [facility] OR Medications Prior to Admission: Prior to Admission medications Medication Sig Start Date End Date Taking? Authorizing Provider spironolactone (ALDACTONE) 25 MG tablet Take 1 tablet by mouth daily 06/01/24 Yes Rafat Murillo MD gabapentin (NEURONTIN) 300 MG capsule Take 1 capsule by mouth in the morning and at bedtime for 180days. 05/31/24 11/27/24 Yes Yazan Rainey MD cetirizine (ZYRTEC) 10 MG tablet Take 1 tablet by mouth 2 times daily 05/31/24 Yes Yazan Rainey MD hydrALAZINE (APRESOLINE) 100 MG tablet Take 1 tablet by mouth every 8 hours 05/31/24 Yes Nimesh Rainey MD famotidine (PEPCID) 20 MG tablet Take 1 tablet by mouth daily 06/01/24 Yes Yazan Rainey MD vitamin B-12 (CYANOCOBALAMIN) 1000 MCG tablet Take 1 tablet by mouth daily Yes Mark Ledezma MD insulin glargine (LANTUS) 100 UNIT/ML injection vial Inject 10 Units into the skin 2 times daily Yes Mark Ledezma MD Multiple Vitamins-Minerals (THERAPEUTIC MULTIVITAMIN-MINERALS) tablet Take 1 tablet by mouth daily Yes Mark Ledezma MD aspirin 81 MG chewable tablet Take 1 tablet by mouth daily Yes Mark Ledezma MD atorvastatin (LIPITOR) 20 MG tablet Take 1 tablet by mouth nightly Yes Mark Ledezma MD carvedilol (COREG) 25 MG tablet Take 1 tablet by mouth 2 times daily Yes Mark Ledezma MD cyclobenzaprine (FLEXERIL) 10 MG tablet Take 1 tablet by mouth at bedtime Yes Mark Ledezma MD glipiZIDE (GLUCOTROL) 10 MG tablet Take 1 tablet by mouth daily Yes Mark Ledezma MD isosorbide mononitrate (IMDUR) 30 MG extended release tablet Take 1 tablet by mouth daily Yes Mark Ledezma MD ferrous sulfate (IRON 325) 325 (65 Fe) MG tablet Take 1 tablet by mouth daily Mark Ledezma MD nitroGLYCERIN (NITROSTAT) 0.[address] 1 tablet under the tongue every 5 minutes as needed for Chest pain up to max of 3 total doses. If no relief after 1 dose, call 911. ProviderMark MD Allergies: Asa [aspirin], Norvasc [amlodipine], and Percocet [oxycodone-acetaminophen] Social History: Tobacco: reports that he has been smoking cigarettes. He has never used smokeless tobacco. Alcohol: reports no history of alcohol use. Drug Use: reports no history of drug use. Family History: History reviewed. No pertinent family history. Review of Systems: Review of Systems Constitutional: Negative for activity change, chills, fatigue and fever. Respiratory: Negative for cough, shortness of breath, wheezing and stridor. Cardiovascular: Negative for chest pain, palpitations and leg swelling. Gastrointestinal: Negative for abdominal distention, abdominal pain, constipation, diarrhea, nauseaand vomiting. Musculoskeletal: Positive for myalgias. Bilateral shoulder pain Neurological: Negative for dizziness, tremors, seizures, syncope, speech difficulty, weakness, light-headedness, numbness and headaches. Physical Exam: BP (!) 141/70 Pulse 86 Temp 98.2 F (36.8 C) (Oral) Resp 14 Ht 1.651 m (5' 5 ) Wt 78.3 kg (172 lb 9.9 oz) SpO2 100% BMI 28.73 kg/m Temp (24hrs), Av.3 F (36.8 C), Min:98.1 F (36.7 C), Max:98.6 F (37 C) Recent Labs 06/03/24 1930 06/04/24 0742 06/04/24 1127 06/04/24 1533 POCGLU 181* 102 150* 162* Intake/Output Summary (Last 24 hours) at 06/04/20241938 Last data filed at 06/04/2024 1800 Gross per 24 hour Intake 500 ml Output 2000 ml Net -1500 ml GENERAL Appears comfortable and in no distress HEENT NC/ AT HEART S1 and S2 heard; palpation of pulses: radial pulse NECK Supple and no bruits heard MENTAL STATUS: Alert, oriented x 3, intact memory, no confusion, normal speech, normal language, nohallucination or delusion CRANIAL NERVES: II - Visual ochoa intact to confrontation III,IV, - PERR, EOMs full, no ptosis V - Normal facial sensation VII - Normal facial symmetry VIII - Intact hearing IX,X - Symmetrical palate XI - Symmetrical shoulder shrug XII - Midline tongue, no atrophy MOTOR FUNCTION: RUE: Significant for good strength of grade 5/5 in proximal and distal muscle groups LUE: Significant for good strength of grade 5/5 in proximal and distal muscle groups RLE: Significant for good strength of grade 5/5 in proximal and distal muscle groups LLE: Significant for good strength of grade 5/5 in proximal and distal muscle groups Normal bulk, normal tone and no involuntary movements, no tremor SENSORY FUNCTION: Normal touch, normal pinprick, normal vibration, normal proprioception CEREBELLAR FUNCTION: Intact fine motor control over upper limbs and lower limbs REFLEX FUNCTION: Symmetric in upper and lower extremities STATION and GAIT deferred Investigations: Laboratory Testing: Recent Results (from the past 24 hour(s)) POC Glucose Fingerstick Collection Time: 06/04/24 7:42 AM Result Value Ref Range POC Glucose 102 75 - 110 mg/dL POC Glucose Fingerstick Collection Time: 06/04/24 11:27 AM Result Value Ref Range POC Glucose 150 (H) 75 - 110 mg/dL POC Glucose Fingerstick Collection Time: 06/04/24 3:33 PM Result Value Ref Range POC Glucose 162 (H) 75 - 110 mg/dL Recent Labs 06/02/24 0715 WBC 8.3 RBC 2.81* HGB 7.8* HCT 24.6* MCV 87.5 MCH 27.8 MCHC 31.7 RDW 13.2 PLT 192 MPV 10.4 Recent Labs 06/02/24 0715 NA 138 K 4.2 CL 108* CO2 25 BUN 40* CREATININE 2.2* GLUCOSE 134* CALCIUM 8.0* Hemoglobin A1C Date Value Ref Range Status 05/26/2024 7.4 (H) 4.0 - 6.0 % Final Assessment : Primary Problem Neurogenic pain of right lower extremity Active Hospital Problems Diagnosis Date Noted Coronary artery disease involving [place] coronary artery of [place] heart without angina pectoris [I25.10] 05/26/2024 Priority: High Abnormal ECG [R94.31] 05/26/2024 Priority: High Lumbar stenosis with neurogenic claudication [M48.062] 05/25/2024 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 / male who presented with a chief complaint of right bilateralshoulder and bilateral lower extremity pain with movement or weight bearing. He has a significant past medical history of lumbar spine surgery L4-L5 in 2022 and Cervical fusion around 1984, CAD s/p PTCA, type 2 diabetes mellitus, CKD stage III, HTN, HLD and is a current smoker. MRI cervical spine showed severe spinal canal stenosis at C3-4 and C4-5 with flattening of the spinal cord and abnormal bilateral paracentral cord T2 hyperintensity at the C4-5 level consistent with spondylotic myelomalacia. MRI lumbar showed canal stenosis measuring 6 mm in AP dimension and narrowing of the lateral recesses. Patient taken to the OR on 05/27/24 for C3-C7 posterior cervical decompression and fusion andextension of posterior lumbar fusion to include L3. Plan: Cervical myelopathy s/p C3-C7 posterior cervical decompression and fusion on 05/27/24 Lumbar stenosis s/p extension of posterior lumbar fusion to L3 on 05/27/24 Cyclobenzaprine 10mg PO nightly Gabapentin 300mg PO BiD Neurosurgery recs appreciated Tylenol 650 mg po q 6 Rison 5-325 po q PRN 4 hours, 2 tablets q 4 hours PRN Dilaudid 0.5 mg IV q 3 hours PRN, 1 mg IV q 3 hours PRN Incentive Spirometry PT/OT (unable to work with due to pain, will re-attempt) -Waiting for SNF placement (patient does not feel comfortable going home in current condition) Angioedema - Resolved. Given 1 dose of solumedrol 80 mg and IV Benadryl of 25 mg. Monitor progression Monitor for respiratory changes. Leukocytosis, resolved Post op: WBC 12.6 > 8.9 MEAGHAN on CKD stage III Improving MEAGHAN. eGFR 36, Cr 2.5 on admit > 1.9, BUN 58 Strict I/Os HTN BP goal <140/90 Started hydralazine 50 mg PO Q8h Continue Coreg 25mg BiD Labetalol 10mg IV Q6h PRN Start spironolactone 25 mg po daily CAD TTE - EF 45-50% Continue Lipitor 20mg PO QD Continue imdur 30mg PO QD T2DM Insulin glargine 25 units SC BiD Insulin Lispro as per HDSS Patient or family members expressed understanding on topics that were discussed and all their questions were answered. Follow-up further recommendations after discussing case with the attending. The plan was discussed with the patient, patient's family and the medical staff. Consultations: IP CONSULT TO NEUROLOGY IP CONSULT TO NEUROSURGERY IP CONSULT TO INTERNAL MEDICINE IP CONSULT TO CARDIOLOGY IP CONSULT TO PHYSICAL MEDICINE REHAB Patient is admitted as inpatient status because of co-morbidities listed above, severity of signs and symptoms as outlined, requirement for current medical therapies and most importantly because of direct risk to patient if care not provided in a hospital setting. Rafat Murillo MD Neurology Resident PGY-3 06/04/2024 7:39 PM Copy sent to Lolita Iyer, DO I have discussed the case of Gage Lugo, including pertinent history and exam findings withthe resident. I have seen and examined the patient and the pablo elements of the encounter have been performed by me. I agree with the assessment, plan and orders as documented by the resident with changes made to the note as needed. Associated attestation - Fran Dorantes MD - 06/04/2024 11:20 PM EDT I have discussed the case of Gage Lugo, including pertinent history and exam findings withthe resident. I have seen and examined the patient and the pablo elements of the encounter have been performed by me. I agree with the assessment, plan and orders as documented by the resident with changes made to the note as needed. Fran Dorantes MD Neurology This note is created with the assistance of a speech-recognition program. While intending to generate a document that actually reflects the content of the visit, the document can still have some errors including those of syntax and sound a- like substitutions which may escape proofreading. In such instances, actual meaning can be extrapolated by contextual derivation. * Bill Sanchez, PT - 06/04/2024 2:41 PM EDT Physical Therapy Facility/Department: [address] [place] Physical Therapy Daily Treatment Note Name: Gage Lugo : 1950 Date of Service: 06/04/2024 Discharge Recommendations: Patient would benefit from continued therapy after discharge PT Equipment Recommendations Equipment Needed: No Patient Diagnosis(es): The primary encounter diagnosis was Pain in right lower leg. Diagnoses of Acute pain of both shoulders, Stenosis of cervical spine with myelopathy (HCC), and Lumbar stenosis with neurogenic claudication were also pertinent to this visit. Past Medical History: has a past medical history of CAD (coronary artery disease), Diabetes mellitus (HCC), Hyperlipidemia, and Hypertension. Past Surgical History: has a past surgical history that includes Cardiac catheterization; cervical fusion; Lumbar disc surgery; Cervical spine surgery (05/27/2024); cervical fusion (N/A, 05/27/2024); and lumbar fusion (N/A, 05/27/2024). Assessment Body Structures, Functions, Activity Limitations Requiring Skilled Therapeutic Intervention: Decreased functional mobility ;Decreased ADL status;Decreased body mechanics;Decreased strength;Decreased high-level IADLs;Decreased balance;Decreased endurance;Decreased safe awareness;Increased pain;Decreased coordination Assessment: Pt with modestly improving functional mobility, requiring CGA to ambulate 25 feet with a RW. Pt remains quick to fatigue with standing mobility. Pt would benefit from additional PT upon discharge to further address BLE weakness, impaired endurance and standing balance. Pt will require 24 hour assistance with mobility upon discharge. Therapy Prognosis: Good Requires PT Follow-Up: Yes Activity Tolerance Activity Tolerance: Patient tolerated treatment well Plan Physical Therapy Plan General Plan: (5-6x) Current Treatment Recommendations: Strengthening, Balance training, Functional mobility training, Transfer training, ADL/Self-care training, IADL training, Endurance training, Equipment evaluation, education, & procurement, Patient/Caregiver education & training, Neuromuscular re-education,Safety education & training, Gait training, Stair training, Home exercise program, Therapeutic activities Safety Devices Type of Devices: All fall risk precautions in place, Call light within reach, Gait belt, Nurse notified, Left in chair Restraints Restraints Initially in Place: No Restrictions Restrictions/Precautions Restrictions/Precautions: Fall Risk, Up as Tolerated, Surgical Protocols Required Braces or Orthoses?: Yes Required Braces or Orthoses Cervical: c-collar Position Activity Restriction Spinal Precautions: No Bending, No Twisting, No Lifting Other position/activity restrictions: Activity as tolerated, Posterior decompression fusion C3-7, extension of lumbar fusion to L 3 05/27, Cervical collar out bed, may remove in bed or when eating. Subjective General Patient assessed for rehabilitation services?: Yes Response To Previous Treatment: Patient with no complaints from previous session. Family / Caregiver Present: No Follows Commands: Within Functional Limits General Comment Comments: C-collar donned in supine at the beginning of today's session. Subjective Subjective: Pt supine in bed and agreeable to therapy, RN agreeable to therapy. Pt pleasant and cooperative throughout. Pt reports 7/10 back pain at rest, pt repositioned for comfort following mobility. Cognition Cognition Overall Cognitive Status: Exceptions Arousal/Alertness: Appears intact Following Commands: Follows multistep commands with increased time Attention Span: Appears intact Memory: Appears intact Safety Judgement: Decreased awareness of need for assistance;Decreased awareness of need for safety Problem Solving: Assistance required to identify errors made;Assistance required to generate solutions;Assistance required to correct errors made;Decreased awareness of errors Insights: Decreased awareness of deficits Initiation: Requires cues for some Sequencing: Requires cues for some Objective Bed mobility Supine to Sit: Stand by assistance Sit to Supine: (pt retired up to a chair.) Scooting: Stand by assistance Bed Mobility Comments: HOB elevated ~45 degrees with use of bedrails. Verbal cues to utilize log roll. Transfers Sit to Stand: Contact guard assistance Stand to Sit: Contact guard assistance Comment: Transfers performed multiple times with a RW. Ambulation Surface: Level tile Device: Rolling Walker Assistance: Contact guard assistance Quality of Gait: fair stability, short stride length, decreased gait speed, no LOB. Gait Deviations: Slow [place];Shuffles Distance: 25 feet More Ambulation?: No Stairs/Curb Stairs?: No Balance Posture: Good Sitting - Static: Good Sitting - Dynamic: Good;- Standing - Static: Fair;+ Standing - Dynamic: Fair Comments: standing balance assessed while using a RW. Exercise Treatment: x10 BLE in standing: hip flexion, hip abduction/adduction, calf raises, partialsquats [facility] - Mobility -[facility] Basic Mobility - Inpatient How much help is needed turning from your back to your side while in a flat bed without using bedrails?: A Little How much help is needed moving from lying on your back to sitting on the side of a flat bed withoutusing bedrails?: A Little How much help is needed moving to and from a bed to a chair?: A Little How much help is needed standing up from a chair using your arms?: A Little How much help is needed walking in hospital room?: A Little How much help is needed climbing 3-5 steps with a railing?: A Lot [facility] Inpatient Mobility Raw Score : [facility] T-[facility] Score : 42.13 Mobility Inpatient CMS 0-100% Score: 50.57 Mobility Inpatient CMS G-Code Modifier : CK Goals Short Term Goals Time Frame for Short Term Goals: 14 visits Short Term Goal 1: Complete transfers with RW and mod I Short Term Goal 2: Complete 300 ft of gait with RW and mod I Short Term Goal 3: Participate in 30 minutes of therapy to promote endurance Short Term Goal 4: Complete bed mobility independently with HOB flat Education Patient Education Education Given To: Patient Education Provided: Role of Therapy;Plan of Care;Transfer Training;Precautions Education Method: Verbal Barriers to Learning: None Education Outcome: Verbalized understanding Therapy Time Individual Concurrent Group Co-treatment Time In 1031 Time Out 1056 Minutes 25 Timed Code Treatment Minutes: 25 Minutes Bill Sanchez PT * Rusty Amador, BUILDING INSPECTION ENGINEER - PHOTOGEOLOGIST - 06/04/2024 10:45 AM EDT Neurosurgery SELVIN/Resident Daily Progress Note CC: Chief Complaint Patient presents with Pain Bilat shoulders, back and bilat legs 06/04/2024 10:45 AM Chart reviewed. No acute events overnight. No new complaints. Doing well, tolerating diet, pain controlled. Family appealed Vitals: 06/04/24 0326 06/04/24 0545 06/04/24 0700 06/04/24 1002 BP: 132/63 (!) 155/70 Pulse: 74 80 81 Resp: 14 Temp: 98.6 F (37 C) TempSrc: Oral SpO2: 95% Weight: 78.3 kg (172 lb 9.9 oz) Height: PE: AOx3 Motor L deltoid 5/5; R deltoid 5/5 L biceps 5/5; R biceps 5/5 L triceps 5/5; R triceps 5/5 L wrist extension 5/5; R wrist extension 5/5 L intrinsics 5/5; R intrinsics 5/5 L iliopsoas 5/5 , R iliopsoas 5/5 L quadriceps 5/5; R quadriceps 5/5 L Dorsiflexion 5/5; R dorsiflexion 5/5 L Plantarflexion 4+/5; R plantarflexion 5/5 L EHL 5/5; R EHL 5/5 Sensation: intact Incision: CDI closed with crystal Lab Results Component Value Date WBC 8.3 06/02/2024 HGB 7.8 (L) 06/02/2024 HCT 24.6 (L) 06/02/2024 PLT 192 06/02/2024 ALT 29 05/27/2024 AST 28 05/27/2024 NA 138 06/02/2024 K 4.2 06/02/2024 CL 108 (H) 06/02/2024 CREATININE 2.2 (H) 06/02/2024 BUN 40 (H) 06/02/2024 CO2 25 06/02/2024 LABA1C 7.4 (H) 05/26/2024 CRP 124.0 (H) 05/23/2024 SEDRATE 49 (H) 05/23/2024 A/P 74 y.o. male who presents with lumbar and cervical stenosis POD #9 s/p posterior cervical decompression/fusion C3-7, extension of posterior lumbar fusion to L3 CM working on precert for SNF - family appealed discharge Continue PT and OT Heparin for DVT prophylaxis Collar on while out of bed ok to remove while resting in bed eating and drinking Please contact neurosurgery with any changes in patients neurologic status. Rusty Amador CNP 06/04/24 10:45 AM * Rafat Murillo MD - 06/03/2024 5:34 PM EDT [facility] Neurology IN-PATIENT SERVICE [facility] Progress Note Date: 06/03/2024 Patient name: Gage Lugo Date of admission: 05/23/2024 6:12 PM Account: [id number] Date of : 1950 PCP: Lolita Adorno DO Room: [facility]0544- Code Status: Full Code Chief Complaint: Chief Complaint Patient presents with Pain Bilat shoulders, back and bilat legs Interval hx: The patient was seen and examined at bedside. Is vitally stable, alert and oriented. Alert orientedx 4. Continues to report pain BL shoulders 05/15 severity Insurance denied DC. Pending placement Brief History of Present Illness: The patient is a 74 y.o. / male who presents with Pain in the Bilateral shoulders, back and bilateral legs. He has a past medical history significant for CAD s/p PTCA, type 2 diabetesmellitus, CKD stage III, HTN, HLD and is a current smoker. He initially presented to the ED with a chief complaint of pain, worse in his right leg with inability to bear weight on it. Patient states this pain is a radicular pain with movement that starts in his foot and shoots up the back of the leg into the buttocks and lower back. The pain occurred all of a sudden on 05/23 when he woke up and isonly present with movement or touch/pressure on the extremity. It is a sharp 10/10 pain when it does occur. In addition to that, patient is also complaining of pain in the bilateral shoulders that prevents him from raising either arm above 90 degrees. He recently went to [facility] where initial workup was negative except for elevated ESR and CRP. Per the patient, he underwent a lumbar disc surgery L4-L5 with cage placement in 2022 for left footdrop and left leg abnormal sensation. Since the procedure, the weakness has improved but is still present and had increased sensation to touch but still feels like his left foot is always cold. Additionally he had a cervical fusion around ~1984. On presentation, his total CK levels were 31 and myoglobin 65, CRP was elevated at 124, ESR was elevated at 49 and Aldolase was 2.9. His CBC showed hemoglobin 11.0, hematocrit 33.8, WBC 12.5 and platelet count of 290. MRI cervical on 05/24/24 shows stenosis of C3-C5 with T2 hyperintensity at C4-C5 and MRI lumbar shows worse stenosis of L3-L4. Patient taken to the OR on 05/27/2024 for C3-C7 PCDF andextension of the previous lumbar fusion to L3. 06/02/24 Patient continues to report bilateral shoulder pain, but denies weakness or sensory deficits. Receiving PRN dilaudid and Rison. Waiting for placement. Unable to work with PT/OT due to pain. 06/02: Pre-cert for SNF started. VSS PT --continued therapy after discharge Interval History: Insurance denied DC. Pending placement Past Medical History: Past Medical History: Diagnosis Date CAD (coronary artery disease) stents x2 from multiple angiograms Diabetes mellitus (HCC) Hyperlipidemia Hypertension Past Surgical History: Past Surgical History: Procedure Laterality Date CARDIAC CATHETERIZATION ', 87, CERVICAL FUSION with collar bone revision 1983 CERVICAL FUSION N/A 05/27/2024 POSTERIOR CERVICAL DECOMPRESSION FUSION CERVICAL THREE THROUGH SEVEN performed by Edin Bridges DO at [facility] OR CERVICAL SPINE SURGERY 05/27/2024 POSTERIOR CERVICAL DECOMPRESSION FUSION CERVICAL THREE THROUGH SEVEN+EXTENSION OF POSTERIOR LUMBAR FUSION TO LUMBAR THREE LUMBAR DISC SURGERY cage placed 2022 LUMBAR FUSION N/A 05/27/2024 EXTENSION OF POSTERIOR LUMBAR FUSION TO LUMBAR THREE performed by Edin Bridges DO at [facility] OR Medications Prior to Admission: Prior to Admission medications Medication Sig Start Date End Date Taking? Authorizing Provider spironolactone (ALDACTONE) 25 MG tablet Take 1 tablet by mouth daily 8/27/24 Yes Rafat Murillo MD gabapentin (NEURONTIN) 300 MG capsule Take 1 capsule by mouth in the morning and at bedtime for 180days. 05/31/24 11/27/24 Yes Yazan Rainey MD cetirizine (ZYRTEC) 10 MG tablet Take 1 tablet by mouth 2 times daily 05/31/24 Yes Yazan Rainey MD hydrALAZINE (APRESOLINE) 100 MG tablet Take 1 tablet by mouth every 8 hours 05/31/24 Yes Nimesh Rainey MD famotidine (PEPCID) 20 MG tablet Take 1 tablet by mouth daily 06/01/24 Yes Yazan Rainey MD vitamin B-12 (CYANOCOBALAMIN) 1000 MCG tablet Take 1 tablet by mouth daily Yes Mark Ledezma MD insulin glargine (LANTUS) 100 UNIT/ML injection vial Inject 10 Units into the skin 2 times daily Yes Mark Ledezma MD Multiple Vitamins-Minerals (THERAPEUTIC MULTIVITAMIN-MINERALS) tablet Take 1 tablet by mouth daily Yes Mark Ledezma MD aspirin 81 MG chewable tablet Take 1 tablet by mouth daily Yes Mark Ledezma MD atorvastatin (LIPITOR) 20 MG tablet Take 1 tablet by mouth nightly Yes Mark Ledezma MD carvedilol (COREG) 25 MG tablet Take 1 tablet by mouth 2 times daily Yes Mark Ledezma MD cyclobenzaprine (FLEXERIL) 10 MG tablet Take 1 tablet by mouth at bedtime Yes Mark Ledezma MD glipiZIDE (GLUCOTROL) 10 MG tablet Take 1 tablet by mouth daily Yes Mark Ledezma MD isosorbide mononitrate (IMDUR) 30 MG extended release tablet Take 1 tablet by mouth daily Yes Mark Ledezma MD ferrous sulfate (IRON 325) 325 (65 Fe) MG tablet Take 1 tablet by mouth daily Mark Ledezma MD nitroGLYCERIN (NITROSTAT) 0.[address] 1 tablet under the tongue every 5 minutes as needed for Chest pain up to max of 3 total doses. If no relief after 1 dose, call 911. Mark Ledezma MD Allergies: Asa [aspirin], Norvasc [amlodipine], and Percocet [oxycodone-acetaminophen] Social History: Tobacco: reports that he has been smoking cigarettes. He has never used smokeless tobacco. Alcohol: reports no history of alcohol use. Drug Use: reports no history of drug use. Family History: History reviewed. No pertinent family history. Review of Systems: Review of Systems Constitutional: Negative for activity change, chills, fatigue and fever. Respiratory: Negative for cough, shortness of breath, wheezing and stridor. Cardiovascular: Negative for chest pain, palpitations and leg swelling. Gastrointestinal: Negative for abdominal distention, abdominal pain, constipation, diarrhea, nauseaand vomiting. Musculoskeletal: Positive for myalgias. Bilateral shoulder pain Neurological: Negative for dizziness, tremors, seizures, syncope, speech difficulty, weakness, light-headedness, numbness and headaches. Physical Exam: BP (!) 149/77 Pulse 79 Temp 98.8 F (37.1 C) (Oral) Resp 13 Ht 1.651 m (5' 5 ) Wt 74.6 kg (164 lb 7.4 oz) SpO2 98% BMI 27.37 kg/m Temp (24hrs), Av F (37.2 C), Min:97.9 F (36.6 C), Max:100 F (37.8 C) Recent Labs 06/02/24201106/03/24 0727 06/03/24 1147 06/03/24 1631 POCGLU 256* 115* 138* 173* Intake/Output Summary (Last 24 hours) at 06/03/2024 1734 Last data filed at 06/03/2024 1403 Gross per 24 hour Intake -- Output 2025 ml Net -2025 ml GENERAL Appears comfortable and in no distress HEENT NC/ AT HEART S1 and S2 heard; palpation of pulses: radial pulse NECK Supple and no bruits heard MENTAL STATUS: Alert, oriented x 3, intact memory, no confusion, normal speech, normal language, nohallucination or delusion CRANIAL NERVES: II - Visual ochoa intact to confrontation III,IV, - PERR, EOMs full, no ptosis V - Normal facial sensation VII - Normal facial symmetry VIII - Intact hearing IX,X - Symmetrical palate XI - Symmetrical shoulder shrug XII - Midline tongue, no atrophy MOTOR FUNCTION: RUE: Significant for good strength of grade 5/5 in proximal and distal muscle groups LUE: Significant for good strength of grade 5/5 in proximal and distal muscle groups RLE: Significant for good strength of grade 5/5 in proximal and distal muscle groups LLE: Significant for good strength of grade 5/5 in proximal and distal muscle groups Normal bulk, normal tone and no involuntary movements, no tremor SENSORY FUNCTION: Normal touch, normal pinprick, normal vibration, normal proprioception CEREBELLAR FUNCTION: Intact fine motor control over upper limbs and lower limbs REFLEX FUNCTION: Symmetric in upper and lower extremities STATION and GAIT deferred Investigations: Laboratory Testing: Recent Results (from the past 24 hour(s)) POC Glucose Fingerstick Collection Time: 06/02/24 8:12 PM Result Value Ref Range POC Glucose 256 (H) 75 - 110 mg/dL POC Glucose Fingerstick Collection Time: 06/03/24 7:27 AM Result Value Ref Range POC Glucose 115 (H) 75 - 110 mg/dL POC Glucose Fingerstick Collection Time: 06/03/24 11:47 AM Result Value Ref Range POC Glucose 138 (H) 75 - 110 mg/dL POC Glucose Fingerstick Collection Time: 06/03/24 4:31 PM Result Value Ref Range POC Glucose 173 (H) 75 - 110 mg/dL Recent Labs 06/02/24 0715 WBC 8.3 RBC 2.81* HGB 7.8* HCT 24.6* MCV 87.5 MCH 27.8 MCHC 31.7 RDW 13.2 PLT 192 MPV 10.4 Recent Labs 06/02/24 0715 NA 138 K 4.2 CL 108* CO2 25 BUN 40* CREATININE 2.2* GLUCOSE 134* CALCIUM 8.0* Hemoglobin A1C Date Value Ref Range Status 05/26/2024 7.4 (H) 4.0 - 6.0 % Final Assessment : Primary Problem Neurogenic pain of right lower extremity Active Hospital Problems Diagnosis Date Noted Coronary artery disease involving [place] coronary artery of [place] heart without angina pectoris [I25.10] 05/26/2024 Priority: High Abnormal ECG [R94.31] 05/26/2024 Priority: High Lumbar stenosis with neurogenic claudication [M48.062] 05/25/2024 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 / male who presented with a chief complaint of right bilateralshoulder and bilateral lower extremity pain with movement or weight bearing. He has a significant past medical history of lumbar spine surgery L4-L5 in 2022 and Cervical fusion around 1984, CAD s/p PTCA, type 2 diabetes mellitus, CKD stage III, HTN, HLD and is a current smoker. MRI cervical spine showed severe spinal canal stenosis at C3-4 and C4-5 with flattening of the spinal cord and abnormal bilateral paracentral cord T2 hyperintensity at the C4-5 level consistent with spondylotic myelomalacia. MRI lumbar showed canal stenosis measuring 6 mm in AP dimension and narrowing of the lateral recesses. Patient taken to the OR on 05/27/24 for C3-C7 posterior cervical decompression and fusion andextension of posterior lumbar fusion to include L3. Plan: Cervical myelopathy s/p C3-C7 posterior cervical decompression and fusion on 05/27/24 Lumbar stenosis s/p extension of posterior lumbar fusion to L3 on 05/27/24 Cyclobenzaprine 10mg PO nightly Gabapentin 300mg PO BiD Neurosurgery recs appreciated Tylenol 650 mg po q 6 Rison 5-325 po q PRN 4 hours, 2 tablets q 4 hours PRN Dilaudid 0.5 mg IV q 3 hours PRN, 1 mg IV q 3 hours PRN Incentive Spirometry PT/OT (unable to work with due to pain, will re-attempt) -Waiting for SNF placement (patient does not feel comfortable going home in current condition) Angioedema - Resolved. Given 1 dose of solumedrol 80 mg and IV Benadryl of 25 mg. Monitor progression Monitor for respiratory changes. Leukocytosis, resolved Post op: WBC 12.6 > 8.9 MEAGHAN on CKD stage III Improving MEAGHAN. eGFR 36, Cr 2.5 on admit > 1.9, BUN 58 Strict I/Os HTN BP goal <140/90 Started hydralazine 50 mg PO Q8h Continue Coreg 25mg BiD Labetalol 10mg IV Q6h PRN Start spironolactone 25 mg po daily CAD TTE - EF 45-50% Continue Lipitor 20mg PO QD Continue imdur 30mg PO QD T2DM Insulin glargine 25 units SC BiD Insulin Lispro as per HDSS Patient or family members expressed understanding on topics that were discussed and all their questions were answered. Follow-up further recommendations after discussing case with the attending. The plan was discussed with the patient, patient's family and the medical staff. Consultations: IP CONSULT TO NEUROLOGY IP CONSULT TO NEUROSURGERY IP CONSULT TO INTERNAL MEDICINE IP CONSULT TO CARDIOLOGY IP CONSULT TO PHYSICAL MEDICINE REHAB Patient is admitted as inpatient status because of co-morbidities listed above, severity of signs and symptoms as outlined, requirement for current medical therapies and most importantly because of direct risk to patient if care not provided in a hospital setting. Rafat Murillo MD Neurology Resident PGY-3 06/03/2024 5:34 PM Copy sent to Lolita Iyer DO I have discussed the case of Gage Lugo, including pertinent history and exam findings withthe resident. I have seen and examined the patient and the pablo elements of the encounter have been performed by me. I agree with the assessment, plan and orders as documented by the resident with changes made to the note as needed. Associated attestation - Fran Dorantes MD - 06/03/2024 9:45 PM EDT I have discussed the case of Gage Lugo, including pertinent history and exam findings withthe resident. I have seen and examined the patient and the pablo elements of the encounter have been performed by me. I agree with the assessment, plan and orders as documented by the resident with changes made to the note as needed. Fran Dorantes MD Neurology This note is created with the assistance of a speech-recognition program. While intending to generate a document that actually reflects the content of the visit, the document can still have some errors including those of syntax and sound a- like substitutions which may escape proofreading. In such instances, actual meaning can be extrapolated by contextual derivation. * Eryn Kim, PT - 06/03/2024 3:47 PM EDT Physical Therapy Facility/Department: [address] [facility] Physical Therapy Progress Note Name: Gage Lugo : 1950 Date of Service: 06/03/2024 Discharge Recommendations: Patient would benefit from continued therapy after discharge PT Equipment Recommendations Equipment Needed: No Patient Diagnosis(es): The primary encounter diagnosis was Pain in right lower leg. Diagnoses of Acute pain of both shoulders, Stenosis of cervical spine with myelopathy (HCC), and Lumbar stenosis with neurogenic claudication were also pertinent to this visit. Past Medical History: has a past medical history of CAD (coronary artery disease), Diabetes mellitus (HCC), Hyperlipidemia, and Hypertension. Past Surgical History: has a past surgical history that includes Cardiac catheterization; cervical fusion; Lumbar disc surgery; Cervical spine surgery (05/27/2024); cervical fusion (N/A, 05/27/2024); and lumbar fusion (N/A, 05/27/2024). Assessment Body Structures, Functions, Activity Limitations Requiring Skilled Therapeutic Intervention: Decreased functional mobility ;Decreased ADL status;Decreased body mechanics;Decreased strength;Decreased high-level IADLs;Decreased balance;Decreased endurance;Decreased safe awareness;Increased pain;Decreased coordination Assessment: Pt amb 20 ft with rw and CGA, pain limiting. Pt requires assist with donning C-Collar. Pt could benefit benefit from cont therapy to improve his dynamic funtional mobility. Therapy Prognosis: Good Activity Tolerance Activity Tolerance: Patient tolerated treatment well Plan Physical Therapy Plan General Plan: (5-6x) Current Treatment Recommendations: Strengthening, Balance training, Functional mobility training, Transfer training, ADL/Self-care training, IADL training, Endurance training, Equipment evaluation, education, & procurement, Patient/Caregiver education & training, Neuromuscular re-education,Safety education & training, Gait training, Stair training, Home exercise program, Therapeutic activities Safety Devices Type of Devices: All fall risk precautions in place, Call light within reach, Gait belt, Nurse notified, Left in chair Restraints Restraints Initially in Place: No Restrictions Restrictions/Precautions Restrictions/Precautions: Fall Risk, Up as Tolerated, Surgical Protocols Required Braces or Orthoses?: Yes Required Braces or Orthoses Cervical: c-collar Position Activity Restriction Spinal Precautions: No Bending, No Twisting, No Lifting Other position/activity restrictions: Activity as tolerated, Posterior decompression fusion C3-7, extension of lumbar fusion to L 3 05/27, Cervical collar out bed, may remove in bed or when eating. Subjective General Chart Reviewed: Yes Patient assessed for rehabilitation services?: Yes Family / Caregiver Present: No Follows Commands: Within Functional Limits General Comment Comments: RN and pt agreeable to treatment session Subjective Subjective: Pt reports 9/10 pain in neck and midback, limiting mobiity. Repositioned in bed for comfort after amb Social/Functional History Social/Functional History Lives With: Significant other Type of Home: House Home Layout: Two level, Able to Live on Main level with bedroom/bathroom Home Access: Ramped entrance Bathroom Shower/Tub: Walk-in shower, Curtain Bathroom Toilet: Standard Bathroom Equipment: Grab bars in shower, Built-in shower seat Bathroom Accessibility: Accessible Home Equipment: Walker - Rolling, Cane Has the patient had two or more falls in the past year or any fall with injury in the past year?: No Receives Help From: Family (Significant other and daughter who lives across the street) ADL Assistance: Independent Homemaking Assistance: Independent Ambulation Assistance: Independent Transfer Assistance: Independent Active Med Admin: Yes Mode of Transportation: Truck Occupation: Retired 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 Vision/Hearing Cognition Orientation Overall Orientation Status: Within Functional Limits Orientation Level: Oriented X4 Cognition Overall Cognitive Status: Exceptions Arousal/Alertness: Appears intact Following Commands: Follows multistep commands with increased time Attention Span: Appears intact Memory: Appears intact Safety Judgement: Decreased awareness of need for assistance;Decreased awareness of need for safety Problem Solving: Assistance required to identify errors made;Assistance required to generate solutions;Assistance required to correct errors made;Decreased awareness of errors Insights: Decreased awareness of deficits Initiation: Requires cues for some Sequencing: Requires cues for some Bed mobility Supine to Sit: Stand by assistance Sit to Supine: Stand by assistance Scooting: Stand by assistance Bed Mobility Comments: use of bedrails, cues for log rolling Transfers Sit to Stand: Contact guard assistance Stand to Sit: Contact guard assistance Comment: Assessed with RW, up and down from bed and recliner Ambulation Surface: Level tile Device: Rolling Walker Assistance: Contact guard assistance Quality of Gait: forward lean with pain Gait Deviations: Slow [place];Shuffles Distance: 20 ft x 2 with seated rest break Comments: pain limiting mobility this date More Ambulation?: No Stairs/Curb Stairs?: No Balance Posture: Good Sitting - Static: Good Sitting - Dynamic: Good;- Standing - Static: Fair;+ Standing - Dynamic: Fair Comments: standing with B UE support A/AROM Exercises: Seated LAQ, marches, hamstring curls (orange tband), ankle pumps, hip abd/add x 10-15 reps to improve strength and LE function OutComes Score [facility] - Mobility [facility] Basic Mobility - Inpatient How much help is needed turning from your back to your side while in a flat bed without using bedrails?: A Little How much help is needed moving from lying on your back to sitting on the side of a flat bed withoutusing bedrails?: A Little How much help is needed moving to and from a bed to a chair?: A Little How much help is needed standing up from a chair using your arms?: A Little How much help is needed walking in hospital room?: A Little How much help is needed climbing 3-5 steps with a railing?: A Lot [facility] Inpatient Mobility Raw Score : [facility] T-[facility] Score : 42.13 Mobility Inpatient CMS 0-100% Score: 50.57 Mobility Inpatient [facility] G-Code Modifier : CK Goals Short Term Goals Time Frame for Short Term Goals: 14 visits Short Term Goal 1: Complete transfers with RW and mod I Short Term Goal 2: Complete 300 ft of gait with RW and mod I Short Term Goal 3: Participate in 30 minutes of therapy to promote endurance Short Term Goal 4: Complete bed mobility independently with HOB flat Education Patient Education Education Given To: Patient Education Provided: Role of Therapy Education Provided Comments: no bending, lift, twisting Education Method: Verbal Barriers to Learning: None Education Outcome: Verbalized understanding Therapy Time Individual Concurrent Group Co-treatment Time In 1426 Time Out 1449 Minutes 23 Timed Code Treatment Minutes: 23 Minutes Eryn Kim PT * Breann Gonzalez OTA - 06/03/2024 9:37 AM EDT Occupational Therapy Facility/Department: [facility] 5C STEPDOWN Daily Treatment Note Patient Name: Gage Lugo : 1950 Date of Service: 06/03/2024 Discharge Recommendations Discharge Recommendations: Patient would benefit from continued therapy after discharge Further therapy recommended at discharge.The patient should be able to tolerate at least 3 hours oftherapy per day over 5 days or 15 hours over 7 days. This patient may benefit from a Physical Medicine and Rehab consult. OT Equipment Recommendations Other: CTA Assessment Performance deficits / Impairments: Decreased functional mobility ;Decreased endurance;Decreased coordination;Decreased ADL status;Decreased balance;Decreased safe awareness Assessment: Pt typically IND with functional mobility and ADL care at baseline. Pt would benefit from continued skilled OT to address above deficits to increase independence with ADL/IADLs and to promote overall occupational performance. Prognosis: Good REQUIRES OT FOLLOW-UP: Yes Activity Tolerance Activity Tolerance: Patient Tolerated treatment well;Patient limited by pain Safety Devices Type of Devices: All fall risk precautions in place;Call light within reach;Gait belt;Nurse notified;Left in chair Restraints Restraints Initially in Place: No Restrictions/Precautions Restrictions/Precautions Restrictions/Precautions: Fall Risk;Up as Tolerated;Surgical Protocols Required Braces or Orthoses?: Yes Required Braces or Orthoses Cervical: c-collar Position Activity Restriction Spinal Precautions: No Bending;No Twisting;No Lifting Other position/activity restrictions: Activity as tolerated, Posterior decompression fusion C3-7, extension of lumbar fusion to L 3 05/27, Cervical collar out bed, may remove in bed or when eating. Subjective General Patient assessed for rehabilitation services?: Yes Response to previous treatment: Patient with no complaints from previous session Family / Caregiver Present: No Subjective Subjective: . General Comment Comments: RN ok'd patient for OT treatment this date. Pt agreeable to session and pleasant/cooperative throughout. Pt reporting 9/10 pain to BLE throughout session, pt declined use of ice for pain management. Repositioned in recliner at conclusion of tx to address pain. Objective Orientation Overall Orientation Status: Within Functional Limits Orientation Level: Oriented X4 Cognition Overall Cognitive Status: Exceptions Arousal/Alertness: Appears intact Following Commands: Follows multistep commands with increased time Attention Span: Appears intact Memory: Appears intact Safety Judgement: Decreased awareness of need for assistance;Decreased awareness of need for safety Problem Solving: Assistance required to identify errors made;Assistance required to generate solutions;Assistance required to correct errors made;Decreased awareness of errors Insights: Decreased awareness of deficits Initiation: Requires cues for some Sequencing: Requires cues for some Cognition Comment: Needs continued education in spinal precautions, limited recall and application during session. MAX verbal cues for no bending during LB ADL care. Activities of Daily Living Grooming: Stand by assistance;Verbal cueing;Increased time to complete Grooming Skilled Clinical Factors: Pt completed face washing and donning deodorant while seated on toilet and oral hygiene while standing at sink. MOD I for tasks d/t safety concerns and SBA for standing balance with unilateral UE support of sink. UE Bathing: Maximum assistance;Verbal cueing;Increased time to complete UE Bathing Skilled Clinical Factors: Pt completed UB bathing while seated on toilet, badielos adherence to cervical precautions with no shoulder flexion greater than 90 degrees. Declined washing back this date d/t personal preference. LE Bathing: Stand by assistance;Verbal cueing;Increased time to complete LE Bathing Skilled Clinical Factors: Pt completed front perineal hygiene while standing at sink with SBA for safety. Completed washing BLEs while seated on toilet. Educated on spinal precautions and back safety during LB ADL care, required MAX verbal cues for no bending. Pt educated on figure 4 technique, however pt declined attempting. UE Dressing: Minimal assistance;Increased time to complete;Verbal cueing UE Dressing Skilled Clinical Factors: MIN A to don and adjust c-collar at start of session. Completed hospital gown change while seated on toilet with SBA for snaps/ties, demos adherence to cervical precautions. Additional Comments: Upon arrival of therapist pt supine in bed, agreeable to therapy. Pt engaged in bed mobility, functional transfers/mobility, ADL care, spinal/cervical precautions education, and retired to seated in recliner with all needs met and call light within reach. During seated ADL carept seated on toilet facing sink to adhere to no twisting for back protection. Demos poor adherence to no bending precaution during seated LB ADL care and standing oral hygiene at sink despite max verbal cues. Balance Balance Sitting: Without support (Pt seated EOB during c-collar adjustment and seated on toilet for ADL care with SUP for sitting balance, MAX verbal cues to adhere to no bending with poor return. Overall sitting ~20 minutes.) Standing: With support (Pt standing at sink with close SBA for balance using unilateral UE support for sink during tasks, overall standing ~6 minutes. Required MAX verbal cues for no bending with poor return.) Transfers/Mobility Bed mobility Supine to Sit: Stand by assistance (HOB elevated ~40 degrees, educated on and completed log roll technique for back safety.) Sit to Supine: Unable to assess (Retired to recliner.) Scooting: Stand by assistance (Assessed scoot forward while seated EOB and scoot retro in recliner.) Bed Mobility Comments: Required increased time/effort d/t pain, use of bed rails as needed. Transfers Sit to stand: Contact guard assistance Stand to sit: Stand by assistance Transfer Comments: Use of RW and min verbal cues for body mechanics for back protection. Stand fromEOB, stand<>sit from toilet, and sit onto recliner. Required verbal cues for RW placement prior to descent for safety. Toilet Transfers Toilet - Technique: Ambulating Equipment Used: Standard toilet Toilet Transfer: Stand by assistance Toilet Transfers Comments: Stand<>sit from toilet with use of RW, required increased time to complete. Functional Mobility: Contact guard assistance;Adaptive equipment;Increased time to complete Functional Mobility Skilled Clinical Factors: Pt completed functional mobility with RW CGA from EOB>bathroom>recliner, demos slow steady pace throughout. Required verbal cues for RW management during turns to adhere to spinal precautions. Patient Education Patient Education Education Given To: Patient Education Provided: Role of Therapy;ADL Adaptive Strategies;Transfer Training;Precautions;Fall Prevention Strategies;Mobility Training;Equipment Education Provided Comments: Educated on spinal/cervical precautions, safety awareness, figure 4 technique, log roll technique, activity promotion: poor-fair return Education Method: Demonstration;Verbal;Teach Back Barriers to Learning: None Education Outcome: Verbalized understanding;Continued education needed Goals Short Term Goals Time Frame for Short Term Goals: Prior to discharge Short Term Goal 1: Patient to demonstrate dyanmic sitting balance with supervision for increased independence with LB dressing Short Term Goal 2: Patient to demonstrate static standing balance with supervision 12-15 minutes atsink for increased independence with A.M ADLs. Short Term Goal 3: Patient to perform functional mobility household distances with LRAD with Supervision Short Term Goal 4: Patient to perform bathroom transfers with supervision Short Term Goal 5: Patient to demonstarte LB dressing ADLs with set up Assist following spinal precaution 100% of the time Additional Goals?: No Plan Occupational Therapy Plan Times Per Week: 3-5x/wk AM-PAC Daily Activities Inpatient AM-PAC Daily Activity - Inpatient How much help is needed for putting on and taking off regular lower body clothing?: A Lot How much help is needed for bathing (which includes washing, rinsing, drying)?: A Little How much help is needed for toileting (which includes using toilet, bedpan, or urinal)?: A Little How much help is needed for putting on and taking off regular upper body clothing?: None How much help is needed for taking care of personal grooming?: None How much help for eating meals?: None AM-PAC Inpatient Daily Activity Raw Score: 20 AM-PAC Inpatient ADL T-Scale Score : 42.03 ADL Inpatient CMS 0-100% Score: 38.32 ADL Inpatient CMS G-Code Modifier : CJ Minutes OT Individual Minutes Time In: 833 Time Out: 910 Minutes: 37 Time Code Minutes Timed Code Treatment Minutes: 30 Minutes * Rafat Murillo MD - 06/02/2024 1:51 PM EDT [facility] Neurology IN-PATIENT SERVICE [facility] Progress Note Date: 06/02/2024 Patient name: Gage Lugo Date of admission: 05/23/2024 6:12 PM Account: [id number] Date of : 1950 PCP: Lolita Adorno DO Room: [address] [place] [address] Code Status: Full Code Chief Complaint: Chief Complaint Patient presents with Pain Bilat shoulders, back and bilat legs Interval hx: The patient was seen and examined at bedside. Is vitally stable, alert and oriented. Alert orientedx 4. Continues to report pain BL shoulders 8/10 severity Pre-cert started for SNF. Brief History of Present Illness: The patient is a 74 y.o. / male who presents with Pain in the Bilateral shoulders, back and bilateral legs. He has a past medical history significant for CAD s/p PTCA, type 2 diabetesmellitus, CKD stage III, HTN, HLD and is a current smoker. He initially presented to the ED with a chief complaint of pain, worse in his right leg with inability to bear weight on it. Patient states this pain is a radicular pain with movement that starts in his foot and shoots up the back of the leg into the buttocks and lower back. The pain occurred all of a sudden on 05/23 when he woke up and isonly present with movement or touch/pressure on the extremity. It is a sharp 10/10 pain when it does occur. In addition to that, patient is also complaining of pain in the bilateral shoulders that prevents him from raising either arm above 90 degrees. He recently went to [facility] where initial workup was negative except for elevated ESR and CRP. Per the patient, he underwent a lumbar disc surgery L4-L5 with cage placement in 2022 for left footdrop and left leg abnormal sensation. Since the procedure, the weakness has improved but is still present and had increased sensation to touch but still feels like his left foot is always cold. Additionally he had a cervical fusion around ~1984. On presentation, his total CK levels were 31 and myoglobin 65, CRP was elevated at 124, ESR was elevated at 49 and Aldolase was 2.9. His CBC showed hemoglobin 11.0, hematocrit 33.8, WBC 12.5 and platelet count of 290. MRI cervical on 05/24/24 shows stenosis of C3-C5 with T2 hyperintensity at C4-C5 and MRI lumbar shows worse stenosis of L3-L4. Patient taken to the OR on 05/27/2024 for C3-C7 PCDF andextension of the previous lumbar fusion to L3. 06/02/24 Patient continues to report bilateral shoulder pain, but denies weakness or sensory deficits. Receiving PRN dilaudid and Rison. Waiting for placement. Unable to work with PT/OT due to pain. Interval History: Pre-cert for SNF started. [facility]SS PT --continued therapy after discharge Past Medical History: Past Medical History: Diagnosis Date CAD (coronary artery disease) stents x2 from multiple angiograms Diabetes mellitus (HCC) Hyperlipidemia Hypertension Past Surgical History: Past Surgical History: Procedure Laterality Date CARDIAC CATHETERIZATION ', , CERVICAL FUSION with collar bone revision 1983 CERVICAL FUSION N/A 05/27/2024 POSTERIOR CERVICAL DECOMPRESSION FUSION CERVICAL THREE THROUGH SEVEN performed by Edin Bridges DO at [facility] OR CERVICAL SPINE SURGERY 05/27/2024 POSTERIOR CERVICAL DECOMPRESSION FUSION CERVICAL THREE THROUGH SEVEN+EXTENSION OF POSTERIOR LUMBAR FUSION TO LUMBAR THREE LUMBAR DISC SURGERY cage placed 2022 LUMBAR FUSION N/A 05/27/2024 EXTENSION OF POSTERIOR LUMBAR FUSION TO LUMBAR THREE performed by Edin Bridges DO at [facility] OR Medications Prior to Admission: Prior to Admission medications Medication Sig Start Date End Date Taking? Authorizing Provider spironolactone (ALDACTONE) 25 MG tablet Take 1 tablet by mouth daily 06/01/24 Yes Rafat Murillo MD gabapentin (NEURONTIN) 300 MG capsule Take 1 capsule by mouth in the morning and at bedtime for 180days. 05/31/24 11/27/24 Yes Yazan Rainey MD cetirizine (ZYRTEC) 10 MG tablet Take 1 tablet by mouth 2 times daily 05/31/24 Yes Yazan Rainey MD hydrALAZINE (APRESOLINE) 100 MG tablet Take 1 tablet by mouth every 8 hours 05/31/24 Yes Nimesh Rainey MD famotidine (PEPCID) 20 MG tablet Take 1 tablet by mouth daily 06/01/24 Yes Yazan Rainey MD vitamin B-12 (CYANOCOBALAMIN) 1000 MCG tablet Take 1 tablet by mouth daily Yes Mark Ledezma MD insulin glargine (LANTUS) 100 UNIT/ML injection vial Inject 10 Units into the skin 2 times daily Yes Mark Ledezma MD Multiple Vitamins-Minerals (THERAPEUTIC MULTIVITAMIN-MINERALS) tablet Take 1 tablet by mouth daily Yes Mark Ledezma MD aspirin 81 MG chewable tablet Take 1 tablet by mouth daily Yes Mark Ledezma MD atorvastatin (LIPITOR) 20 MG tablet Take 1 tablet by mouth nightly Yes Mark Ledezma MD carvedilol (COREG) 25 MG tablet Take 1 tablet by mouth 2 times daily Yes Mark Ledezma MD cyclobenzaprine (FLEXERIL) 10 MG tablet Take 1 tablet by mouth at bedtime Yes Mark Ledezma MD glipiZIDE (GLUCOTROL) 10 MG tablet Take 1 tablet by mouth daily Yes Mark Ledezma MD isosorbide mononitrate (IMDUR) 30 MG extended release tablet Take 1 tablet by mouth daily Yes Mark Ledezma MD ferrous sulfate (IRON 325) 325 (65 Fe) MG tablet Take 1 tablet by mouth daily Mark Ledezma MD nitroGLYCERIN (NITROSTAT) 0.[address] 1 tablet under the tongue every 5 minutes as needed for Chest pain up to max of 3 total doses. If no relief after 1 dose, call 911. Provider, Mark, Allergies: Asa [aspirin], Norvasc [amlodipine], and Percocet [oxycodone-acetaminophen] Social History: Tobacco: reports that he has been smoking cigarettes. He has never used smokeless tobacco. Alcohol: reports no history of alcohol use. Drug Use: reports no history of drug use. Family History: History reviewed. No pertinent family history. Review of Systems: Review of Systems Constitutional: Negative for activity change, chills, fatigue and fever. Respiratory: Negative for cough, shortness of breath, wheezing and stridor. Cardiovascular: Negative for chest pain, palpitations and leg swelling. Gastrointestinal: Negative for abdominal distention, abdominal pain, constipation, diarrhea, nauseaand vomiting. Musculoskeletal: Positive for myalgias. Bilateral shoulder pain Neurological: Negative for dizziness, tremors, seizures, syncope, speech difficulty, weakness, light-headedness, numbness and headaches. Physical Exam: BP (!) 120/58 Pulse 71 Temp 98.6 F (37 C) (Oral) Resp 16 Ht 1.651 m (5' 5 ) Wt 71.6 kg (157 lb 13.6 oz) SpO2 99% BMI 26.27 kg/m Temp (24hrs), Av.5 F (36.9 C), Min:97.7 F (36.5 C), Max:98.9 F (37.2 C) Recent Labs 06/01/24 1720 06/01/24 2032 06/02/24 0756 06/02/24 1138 POCGLU 207* 189* 116* 146* Intake/Output Summary (Last 24 hours) at 06/02/2024 1351 Last data filed at 06/02/2024 0819 Gross per 24 hour Intake -- Output 1550 ml Net -1550 ml GENERAL Appears comfortable and in no distress HEENT NC/ AT HEART S1 and S2 heard; palpation of pulses: radial pulse NECK Supple and no bruits heard MENTAL STATUS: Alert, oriented x 3, intact memory, no confusion, normal speech, normal language, nohallucination or delusion CRANIAL NERVES: II - Visual ochoa intact to confrontation III,IV, - PERR, EOMs full, no ptosis V - Normal facial sensation VII - Normal facial symmetry VIII - Intact hearing IX,X - Symmetrical palate XI - Symmetrical shoulder shrug XII - Midline tongue, no atrophy MOTOR FUNCTION: RUE: Significant for good strength of grade 5/5 in proximal and distal muscle groups LUE: Significant for good strength of grade 5/5 in proximal and distal muscle groups RLE: Significant for good strength of grade 5/5 in proximal and distal muscle groups LLE: Significant for good strength of grade 5/5 in proximal and distal muscle groups Normal bulk, normal tone and no involuntary movements, no tremor SENSORY FUNCTION: Normal touch, normal pinprick, normal vibration, normal proprioception CEREBELLAR FUNCTION: Intact fine motor control over upper limbs and lower limbs REFLEX FUNCTION: Symmetric in upper and lower extremities STATION and GAIT deferred Investigations: Laboratory Testing: Recent Results (from the past 24 hour(s)) POC Glucose Fingerstick Collection Time: 06/01/24 5:20 PM Result Value Ref Range POC Glucose 207 (H) 75 - 110 mg/dL POC Glucose Fingerstick Collection Time: 06/01/24 8:32 PM Result Value Ref Range POC Glucose 189 (H) 75 - 110 mg/dL CBC Collection Time: 06/02/24 7:15 AM Result Value Ref Range WBC 8.3 3.5 - 11.3 k/uL RBC 2.81 (L) 4.21 - 5.77 m/uL Hemoglobin 7.8 (L) 13.0 - 17.0 g/dL Hematocrit 24.6 (L) 40.7 - 50.3 % MCV 87.5 82.6 - 102.9 fL MCH 27.8 25.2 - 33.5 pg MCHC 31.7 28.4 - 34.8 g/dL RDW 13.2 11.8 - 14.4 % Platelets 192 138 - 453 k/uL MPV 10.4 8.1 - 13.5 fL NRBC Automated 0.0 0.0 per 100 WBC Basic Metabolic Panel Collection Time: 06/02/24 7:15 AM Result Value Ref Range Sodium 138 136 - 145 mmol/L Potassium 4.2 3.7 - 5.3 mmol/L Chloride 108 (H) 98 - 107 mmol/L CO2 25 20 - 31 mmol/L Anion Gap 5 (L) 9 - 16 mmol/L Glucose 134 (H) 74 - 99 mg/dL BUN 40 (H) 8 - 23 mg/dL Creatinine 2.2 (H) 0.70 - 1.20 mg/dL Est, Glom Filt Rate 30 (L) >60 mL/min/1.73m2 Calcium 8.0 (L) 8.6 - 10.4 mg/dL POC Glucose Fingerstick Collection Time: 06/02/24 7:56 AM Result Value Ref Range POC Glucose 116 (H) 75 - 110 mg/dL POC Glucose Fingerstick Collection Time: 06/02/24 11:38 AM Result Value Ref Range POC Glucose 146 (H) 75 - 110 mg/dL Recent Labs 06/02/24 0715 WBC 8.3 RBC 2.81* HGB 7.8* HCT 24.6* MCV 87.5 MCH 27.8 MCHC 31.7 RDW 13.2 PLT 192 MPV 10.4 Recent Labs 06/02/24 0715 NA 138 K 4.2 CL 108* CO2 25 BUN 40* CREATININE 2.2* GLUCOSE 134* CALCIUM 8.0* Hemoglobin A1C Date Value Ref Range Status 05/26/2024 7.4 (H) 4.0 - 6.0 % Final Assessment : Primary Problem Neurogenic pain of right lower extremity Active Hospital Problems Diagnosis Date Noted Coronary artery disease involving [place] coronary artery of [place] heart without angina pectoris [I25.10] 05/26/2024 Priority: High Abnormal ECG [R94.31] 05/26/2024 Priority: High Lumbar stenosis with neurogenic claudication [M48.062] 05/25/2024 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 / male who presented with a chief complaint of right bilateralshoulder and bilateral lower extremity pain with movement or weight bearing. He has a significant past medical history of lumbar spine surgery L4-L5 in 2022 and Cervical fusion around 1984, CAD s/p PTCA, type 2 diabetes mellitus, CKD stage III, HTN, HLD and is a current smoker. MRI cervical spine showed severe spinal canal stenosis at C3-4 and C4-5 with flattening of the spinal cord and abnormal bilateral paracentral cord T2 hyperintensity at the C4-5 level consistent with spondylotic myelomalacia. MRI lumbar showed canal stenosis measuring 6 mm in AP dimension and narrowing of the lateral recesses. Patient taken to the OR on 05/27/24 for C3-C7 posterior cervical decompression and fusion andextension of posterior lumbar fusion to include L3. Plan: Cervical myelopathy s/p C3-C7 posterior cervical decompression and fusion on 05/27/24 Lumbar stenosis s/p extension of posterior lumbar fusion to L3 on 05/27/24 Cyclobenzaprine 10mg PO nightly Gabapentin 300mg PO BiD Neurosurgery recs appreciated Tylenol 650 mg po q 6 Rison 5-325 po q PRN 4 hours, 2 tablets q 4 hours PRN Dilaudid 0.5 mg IV q 3 hours PRN, 1 mg IV q 3 hours PRN Incentive Spirometry PT/OT (unable to work with due to pain, will re-attempt) -Waiting for SNF placement (patient does not feel comfortable going home in current condition) Angioedema - Resolved. Given 1 dose of solumedrol 80 mg and IV Benadryl of 25 mg. Monitor progression Monitor for respiratory changes. Leukocytosis, resolved Post op: WBC 12.6 > 8.9 MEAGHAN on CKD stage III Improving MEAGHAN. eGFR 36, Cr 2.5 on admit > 1.9, BUN 58 Strict I/Os HTN BP goal <140/90 Started hydralazine 50 mg PO Q8h Continue Coreg 25mg BiD Labetalol 10mg IV Q6h PRN Start spironolactone 25 mg po daily CAD TTE - EF 45-50% Continue Lipitor 20mg PO QD Continue imdur 30mg PO QD T2DM Insulin glargine 25 units SC BiD Insulin Lispro as per HDSS Patient or family members expressed understanding on topics that were discussed and all their questions were answered. Follow-up further recommendations after discussing case with the attending. The plan was discussed with the patient, patient's family and the medical staff. Consultations: IP CONSULT TO NEUROLOGY IP CONSULT TO NEUROSURGERY IP CONSULT TO INTERNAL MEDICINE IP CONSULT TO CARDIOLOGY IP CONSULT TO PHYSICAL MEDICINE REHAB Patient is admitted as inpatient status because of co-morbidities listed above, severity of signs and symptoms as outlined, requirement for current medical therapies and most importantly because of direct risk to patient if care not provided in a hospital setting. Rafat Murillo MD Neurology Resident PGY-3 06/02/2024 1:51 PM Copy sent to Lolita Iyer DO I have discussed the case of Gage Lugo, including pertinent history and exam findings withthe resident. I have seen and examined the patient and the pablo elements of the encounter have been performed by me. I agree with the assessment, plan and orders as documented by the resident with changes made to the note as needed. Fran Dorantes MD Neurology This note is created with the assistance of a speech-recognition program. While intending to generate a document that actually reflects the content of the visit, the document can still have some errors including those of syntax and sound a- like substitutions which may escape proofreading. In such instances, actual meaning can be extrapolated by contextual derivation. Associated attestation - Fran Dorantes MD - 06/02/2024 11:15 PM EDT I have discussed the case of Gage Lugo, including pertinent history and exam findings withthe resident. I have seen and examined the patient and the pablo elements of the encounter have been performed by me. I agree with the assessment, plan and orders as documented by the resident with changes made to the note as needed. Patient reports improved pain control from yesterday. Awaiting disposition. Precertification is initiated for fdc facility. I also discussed with the patient about discharge to home Fran Dorantes MD Neurology This note is created with the assistance of a speech-recognition program. While intending to generate a document that actually reflects the content of the visit, the document can still have some errors including those of syntax and sound a- like substitutions which may escape proofreading. In such instances, actual meaning can be extrapolated by contextual derivation. * Johnna Mitchell PTA - 06/02/2024 12:01 PM EDT Physical Therapy Facility/Department: [address] [place] Physical Therapy Name: Gage Lugo DOB: 1950 Date of Service: 06/02/2024 Discharge Recommendations: Patient would benefit from continued therapy after discharge Patient Diagnosis(es): The primary encounter diagnosis was Pain in right lower leg. Diagnoses of Acute pain of both shoulders, Stenosis of cervical spine with myelopathy (HCC), and Lumbar stenosis with neurogenic claudication were also pertinent to this visit. Past Medical History: has a past medical history of CAD (coronary artery disease), Diabetes mellitus (HCC), Hyperlipidemia, and Hypertension. Past Surgical History: has a past surgical history that includes Cardiac catheterization; cervical fusion; Lumbar disc surgery; Cervical spine surgery (05/27/2024); cervical fusion (N/A, 05/27/2024); and lumbar fusion (N/A, 05/27/2024). Assessment Body Structures, Functions, Activity Limitations Requiring Skilled Therapeutic Intervention: Decreased functional mobility ;Decreased ADL status;Decreased body mechanics;Decreased strength;Decreased high-level IADLs;Decreased balance;Decreased endurance;Decreased safe awareness;Increased pain;Decreased coordination Assessment: pt amb with RW 120 ft with CGA of 1. pt requires assist with donning C-Collar. pt with increased pain during transitional movements. Pt is very cautious & guarded with movements. pt is very cooperative & sindhu therapy well. pt could benefit from cont therapy to improve his dynamicfunctional mobility. Requires PT Follow-Up: Yes Activity Tolerance Activity Tolerance: Patient tolerated treatment well Activity Tolerance Comments: amb 120 ft RW Plan Physical Therapy Plan General Plan: (5-6x) Current Treatment Recommendations: Strengthening, Balance training, Functional mobility training, Transfer training, ADL/Self-care training, IADL training, Endurance training, Equipment evaluation, education, & procurement, Patient/Caregiver education & training, Neuromuscular re-education,Safety education & training, Gait training, Stair training, Home exercise program, Therapeutic activities Safety Devices Type of Devices: All fall risk precautions in place, Call light within reach, Gait belt, Nurse notified, Left in chair Restraints Restraints Initially in Place: No Restrictions Restrictions/Precautions Restrictions/Precautions: Fall Risk, Up as Tolerated, Surgical Protocols Required Braces or Orthoses?: Yes Required Braces or Orthoses Cervical: c-collar Position Activity Restriction Spinal Precautions: No Bending, No Twisting, No Lifting Other position/activity restrictions: Activity as tolerated, Posterior decompression fusion C3-7, extension of lumbar fusion to L 3 05/27, Cervical collar out bed, may remove in bed or when eating Subjective General Chart Reviewed: Yes Response To Previous Treatment: Patient with no complaints from previous session. Family / Caregiver Present: No Follows Commands: Within Functional Limits General Comment Comments: Upon arrival pt in bed Subjective Subjective: pt agreeable to participate with therapy. pt reports 8/ cervical pain with radiating pain down bilat LE to fingers of bilat hands. pt reports LBP @ /10, denies radiating pain to eitherLE. pt given increased time & emotional support to address his pain. pt bilat UE propped under pillow for support while seated in recliner after therapy. Cognition Cognition Following Commands: Follows multistep commands with increased time Attention Span: Appears intact Memory: Appears intact Objective Bed mobility Supine to Sit: Stand by assistance (HOB elevated 30 degrees, log roll technique reinforced) Scooting: Stand by assistance (to sit EOB to place feet onto floor) Transfers Sit to Stand: Contact guard assistance Stand to Sit: Contact guard assistance Comment: Assessed with RW, Pt completed x sit<>stand from EOB to recliner. Ambulation Surface: Level tile Device: Rolling Walker Assistance: Contact guard assistance Quality of Gait: foot drop LLE, anterior trunk lean, unsteady with no true LOB Gait Deviations: Slow [place];Decreased step length;Decreased step height Distance: 120 ft x2 Comments: advances RW in increments, receptive to v.c's to correct use of RW during amb More Ambulation?: No Stairs/Curb Stairs?: No Balance Sitting - Static: Good Sitting - Dynamic: Good;- Standing - Static: Fair;+ Standing - Dynamic: Fair Comments: Assessed sitting EOB and standing with RW. pt keeps posture guarded in sitting & standing Exercise Treatment: 10 reps each bilat LE quad sets, hamstrings sets, gluteal sets, PF/DF with AROM. 10 reps bilat UE elbow flex/ext, shoulder flex (<90 degrees), shoulder abd with elbows bent (<90 degrees) with AROM. AM-PAC - Mobility AM-PAC Basic Mobility - Inpatient How much help is needed turning from your back to your side while in a flat bed without using bedrails?: A Little How much help is needed moving from lying on your back to sitting on the side of a flat bed withoutusing bedrails?: A Little How much help is needed moving to and from a bed to a chair?: A Little How much help is needed standing up from a chair using your arms?: A Little How much help is needed walking in hospital room?: A Little How much help is needed climbing 3-5 steps with a railing?: A Lot AM-[facility] Inpatient Mobility Raw Score : 17 AM-[facility] Inpatient T-Scale Score : 42.13 Mobility Inpatient CMS 0-100% Score: 50.57 Mobility Inpatient CMS G-Code Modifier : CK Goals Short Term Goals Time Frame for Short Term Goals: 14 visits Short Term Goal 1: Complete transfers with RW and mod I Short Term Goal 2: Complete 300 ft of gait with RW and mod I Short Term Goal 3: Participate in 30 minutes of therapy to promote endurance Short Term Goal 4: Complete bed mobility independently with HOB flat Education Patient Education Education Given To: Patient Education Provided: Role of Therapy Education Provided Comments: no bending, lift, twisting. pt educated on scanning a room upon entry d/t cervical restrictions Education Method: Verbal Barriers to Learning: None Education Outcome: Verbalized understanding Therapy Time Individual Concurrent Group Co-treatment Time In 1012 Time Out 1036 Minutes 24 JOHNNA MITCHELL, CIPRIANO * Rusty Amador, BUILDING INSPECTION ENGINEER - PHOTOGEOLOGIST - 06/02/2024 8:35 AM EDT Neurosurgery SELVIN/Resident Daily Progress Note CC: Chief Complaint Patient presents with Pain Bilat shoulders, back and bilat legs 06/02/2024 8:35 AM Chart reviewed. No acute events overnight. No new complaints.pain well controlled, tolerating diet well, urinating without issues, planning for SNF Vitals: 06/01/24 2035 06/01/24 2116 06/01/24 2315 06/02/24 0715 BP: (!) 140/68 135/65 133/62 Pulse: 79 78 74 Resp: 19 16 14 14 Temp: 98.6 F (37 C) 97.7 F (36.5 C) 98.6 F (37 C) TempSrc: Oral Oral Oral SpO2: 97% 97% 99% Weight: Height: PE: AOx3 PERRL, EOMI Motor L deltoid 5/5; R deltoid 5/5 L biceps 5/5; R biceps 5/5 L triceps 5/5; R triceps 5/5 L wrist extension 5/5; R wrist extension 5/5 L intrinsics 5/5; R intrinsics 5/5 L iliopsoas 5/5 , R iliopsoas 5/5 L quadriceps 5/5; R quadriceps 5/5 L Dorsiflexion 4/5; R dorsiflexion 5/5 L Plantarflexion 4+5/5; R plantarflexion 5/5 L EHL 5/5; R EHL 5/5 Sensation: intact Incision: CDI closed with crystal Lab Results Component Value Date WBC 8.3 06/02/2024 HGB 7.8 (L) 06/02/2024 HCT 24.6 (L) 06/02/2024 PLT 192 06/02/2024 ALT 29 05/27/2024 AST 28 05/27/2024 NA 138 06/02/2024 K 4.2 06/02/2024 CL 108 (H) 06/02/2024 CREATININE 2.2 (H) 06/02/2024 BUN 40 (H) 06/02/2024 CO2 25 06/02/2024 LABA1C 7.4 (H) 05/26/2024 CRP 124.0 (H) 05/23/2024 SEDRATE 49 (H) 05/23/2024 A/P 74 y.o. male who presents with lumbar and cervical stenosis POD #7 s/p posterior cervical decompression/fusion C3-7, extension of posterior lumbar fusion to L3 CM working on precert for SNF - Pre-Cert for [employer] for [place] Continue PT and OT Heparin for DVT prophylaxis Collar on while out of bed ok to remove while resting in bed eating and drinking Please contact neurosurgery with any changes in patients neurologic status. Rusty Amador CNP 06/02/24 8:35 AM * Fran Dorantes MD - 06/01/2024 1:39 PM EDT [facility] Neurology IN-PATIENT SERVICE [facility] Progress Note Date: 06/01/2024 Patient name: Gage Lugo Date of admission: 05/23/2024 6:12 PM Account: [id number] Date of : 1950 PCP: Lolita Adorno DO Room: [address] [place] [address] Code Status: Full Code Chief Complaint: Chief Complaint Patient presents with Pain Bilat shoulders, back and bilat legs Interval hx: The patient was seen and examined at bedside. Is vitally stable, alert and oriented x 4. No acute events overnight. The patient stated that he has bilateral should pain. Hypertensive this am (Start spironolactone 25 mg po daily ) Brief History of Present Illness: The patient is a 74 y.o. / male who presents with Pain in the Bilateral shoulders, back and bilateral legs. He has a past medical history significant for CAD s/p PTCA, type 2 diabetesmellitus, CKD stage III, HTN, HLD and is a current smoker. He initially presented to the ED with a chief complaint of pain, worse in his right leg with inability to bear weight on it. Patient states this pain is a radicular pain with movement that starts in his foot and shoots up the back of the leg into the buttocks and lower back. The pain occurred all of a sudden on 05/23 when he woke up and isonly present with movement or touch/pressure on the extremity. It is a sharp 10/10 pain when it does occur. In addition to that, patient is also complaining of pain in the bilateral shoulders that prevents him from raising either arm above 90 degrees. He recently went to [facility] where initial workup was negative except for elevated ESR and CRP. Per the patient, he underwent a lumbar disc surgery L4-L5 with cage placement in 2022 for left footdrop and left leg abnormal sensation. Since the procedure, the weakness has improved but is still present and had increased sensation to touch but still feels like his left foot is always cold. Additionally he had a cervical fusion around ~1984. On presentation, his total CK levels were 31 and myoglobin 65, CRP was elevated at 124, ESR was elevated at 49 and Aldolase was 2.9. His CBC showed hemoglobin 11.0, hematocrit 33.8, WBC 12.5 and platelet count of 290. MRI cervical on 05/24/24 shows stenosis of C3-C5 with T2 hyperintensity at C4-C5 and MRI lumbar shows worse stenosis of L3-L4. Patient taken to the OR on 05/27/2024 for C3-C7 PCDF andextension of the previous lumbar fusion to L3. Interval History: Patient continues to report bilateral shoulder pain, but denies weakness or sensory deficits. Receiving PRN dilaudid and Rison. Waiting for placement. Unable to work with PT/OT due to pain. Past Medical History: Past Medical History: Diagnosis Date CAD (coronary artery disease) stents x2 from multiple angiograms Diabetes mellitus (HCC) Hyperlipidemia Hypertension Past Surgical History: Past Surgical History: Procedure Laterality Date CARDIAC CATHETERIZATION ', , CERVICAL FUSION with collar bone revision 1983 CERVICAL FUSION N/A 05/27/2024 POSTERIOR CERVICAL DECOMPRESSION FUSION CERVICAL THREE THROUGH SEVEN performed by Edin Bridges DO at [facility] OR CERVICAL SPINE SURGERY 05/27/2024 POSTERIOR CERVICAL DECOMPRESSION FUSION CERVICAL THREE THROUGH SEVEN+EXTENSION OF POSTERIOR LUMBAR FUSION TO LUMBAR THREE LUMBAR DISC SURGERY cage placed 2022 LUMBAR FUSION N/A 05/27/2024 EXTENSION OF POSTERIOR LUMBAR FUSION TO LUMBAR THREE performed by Edin Bridges DO at [facility] OR Medications Prior to Admission: Prior to Admission medications Medication Sig Start Date End Date Taking? Authorizing Provider spironolactone (ALDACTONE) 25 MG tablet Take 1 tablet by mouth daily 06/01/24 Yes Rafat Murillo MD gabapentin (NEURONTIN) 300 MG capsule Take 1 capsule by mouth in the morning and at bedtime for 180days. 05/31/24 11/27/24 Yes Yazan Rainey MD cetirizine (ZYRTEC) 10 MG tablet Take 1 tablet by mouth 2 times daily 05/31/24 Yes Yazan Rainey MD hydrALAZINE (APRESOLINE) 100 MG tablet Take 1 tablet by mouth every 8 hours 05/31/24 Yes Nimesh Rainey MD famotidine (PEPCID) 20 MG tablet Take 1 tablet by mouth daily 06/01/24 Yes Yazan Rainey MD vitamin B-12 (CYANOCOBALAMIN) 1000 MCG tablet Take 1 tablet by mouth daily Yes Mark Ledezma MD insulin glargine (LANTUS) 100 UNIT/ML injection vial Inject 10 Units into the skin 2 times daily Yes Mark Ledezma MD Multiple Vitamins-Minerals (THERAPEUTIC MULTIVITAMIN-MINERALS) tablet Take 1 tablet by mouth daily Yes Mark Ledezma MD aspirin 81 MG chewable tablet Take 1 tablet by mouth daily Yes Mark Ledezma MD atorvastatin (LIPITOR) 20 MG tablet Take 1 tablet by mouth nightly Yes Mark Ledezma MD carvedilol (COREG) 25 MG tablet Take 1 tablet by mouth 2 times daily Yes Mark Ledezma MD cyclobenzaprine (FLEXERIL) 10 MG tablet Take 1 tablet by mouth at bedtime Yes Mark Ledezma MD glipiZIDE (GLUCOTROL) 10 MG tablet Take 1 tablet by mouth daily Yes Mark Ledezma MD isosorbide mononitrate (IMDUR) 30 MG extended release tablet Take 1 tablet by mouth daily Yes Mark Ledezma MD ferrous sulfate (IRON 325) 325 (65 Fe) MG tablet Take 1 tablet by mouth daily Mark Ledezma MD nitroGLYCERIN (NITROSTAT) 0.[address] 1 tablet under the tongue every 5 minutes as needed for Chest pain up to max of 3 total doses. If no relief after 1 dose, call 911. Mark Ledezma MD Allergies: Asa [aspirin], Norvasc [amlodipine], and Percocet [oxycodone-acetaminophen] Social History: Tobacco: reports that he has been smoking cigarettes. He has never used smokeless tobacco. Alcohol: reports no history of alcohol use. Drug Use: reports no history of drug use. Family History: History reviewed. No pertinent family history. Review of Systems: Review of Systems Constitutional: Negative for activity change, chills, fatigue and fever. Respiratory: Negative for cough, shortness of breath, wheezing and stridor. Cardiovascular: Negative for chest pain, palpitations and leg swelling. Gastrointestinal: Negative for abdominal distention, abdominal pain, constipation, diarrhea, nauseaand vomiting. Musculoskeletal: Positive for myalgias. Bilateral shoulder pain Neurological: Negative for dizziness, tremors, seizures, syncope, speech difficulty, weakness, light-headedness, numbness and headaches. Physical Exam: BP (!) 101/50 Pulse 74 Temp 99.1 F (37.3 C) (Oral) Resp 13 Ht 1.651 m (5' 5 ) Wt 71.6 kg (157 lb 13.6 oz) SpO2 98% BMI 26.27 kg/m Temp (24hrs), Av.9 F (37.2 C), Min:98.4 F (36.9 C), Max:99.3 F (37.4 C) Recent Labs 05/31/24 1627 05/31/24 2047 06/01/24 0837 06/01/24 1225 POCGLU 137* 209* 130* 154* Intake/Output Summary (Last 24 hours) at 06/01/2024 1340 Last data filed at 06/01/2024 0944 Gross per 24 hour Intake 260 ml Output 1400 ml Net -1140 ml GENERAL Appears comfortable and in no distress HEENT NC/ AT HEART S1 and S2 heard; palpation of pulses: radial pulse NECK Supple and no bruits heard MENTAL STATUS: Alert, oriented x 3, intact memory, no confusion, normal speech, normal language, nohallucination or delusion CRANIAL NERVES: II - Visual ochoa intact to confrontation III,IV, - PERR, EOMs full, no ptosis V - Normal facial sensation VII - Normal facial symmetry VIII - Intact hearing IX,X - Symmetrical palate XI - Symmetrical shoulder shrug XII - Midline tongue, no atrophy MOTOR FUNCTION: RUE: Significant for good strength of grade 5/5 in proximal and distal muscle groups LUE: Significant for good strength of grade 5/5 in proximal and distal muscle groups RLE: Significant for good strength of grade 5/5 in proximal and distal muscle groups LLE: Significant for good strength of grade 5/5 in proximal and distal muscle groups Normal bulk, normal tone and no involuntary movements, no tremor SENSORY FUNCTION: Normal touch, normal pinprick, normal vibration, normal proprioception CEREBELLAR FUNCTION: Intact fine motor control over upper limbs and lower limbs REFLEX FUNCTION: Symmetric in upper and lower extremities STATION and GAIT deferred Investigations: Laboratory Testing: Recent Results (from the past 24 hour(s)) POC Glucose Fingerstick Collection Time: 05/31/24 4:27 PM Result Value Ref Range POC Glucose 137 (H) 75 - 110 mg/dL POC Glucose Fingerstick Collection Time: 05/31/24 8:47 PM Result Value Ref Range POC Glucose 209 (H) 75 - 110 mg/dL CBC Collection Time: 06/01/24 6:46 AM Result Value Ref Range WBC 8.9 3.5 - 11.3 k/uL RBC 2.96 (L) 4.21 - 5.77 m/uL Hemoglobin 8.2 (L) 13.0 - 17.0 g/dL Hematocrit 26.2 (L) 40.7 - 50.3 % MCV 88.5 82.6 - 102.9 fL MCH 27.7 25.2 - 33.5 pg MCHC 31.3 28.4 - 34.8 g/dL RDW 13.0 11.8 - 14.4 % Platelets 222 138 - 453 k/uL MPV 10.9 8.1 - 13.5 fL NRBC Automated 0.0 0.0 per 100 WBC Basic Metabolic Panel Collection Time: 06/01/24 6:46 AM Result Value Ref Range Sodium 137 136 - 145 mmol/L Potassium 4.1 3.7 - 5.3 mmol/L Chloride 107 98 - 107 mmol/L CO2 22 20 - 31 mmol/L Anion Gap 8 (L) 9 - 16 mmol/L Glucose 150 (H) 74 - 99 mg/dL BUN 38 (H) 8 - 23 mg/dL Creatinine 2.2 (H) 0.70 - 1.20 mg/dL Est, Glom Filt Rate 30 (L) >60 mL/min/1.73m2 Calcium 8.1 (L) 8.6 - 10.4 mg/dL POC Glucose Fingerstick Collection Time: 06/01/24 8:37 AM Result Value Ref Range POC Glucose 130 (H) 75 - 110 mg/dL POC Glucose Fingerstick Collection Time: 06/01/24 12:25 PM Result Value Ref Range POC Glucose 154 (H) 75 - 110 mg/dL Recent Labs 06/01/24 0646 WBC 8.9 RBC 2.96* HGB 8.2* HCT 26.2* MCV 88.5 MCH 27.7 MCHC 31.3 RDW 13.0 PLT 222 MPV 10.9 Recent Labs 06/01/24 0646 NA 137 K 4.1 CL 107 CO2 22 BUN 38* CREATININE 2.2* GLUCOSE 150* CALCIUM 8.1* Hemoglobin A1C Date Value Ref Range Status 05/26/2024 7.4 (H) 4.0 - 6.0 % Final Assessment : Primary Problem Neurogenic pain of right lower extremity Active Hospital Problems Diagnosis Date Noted Coronary artery disease involving [place] coronary artery of [place] heart without angina pectoris [I25.10] 05/26/2024 Priority: High Abnormal ECG [R94.31] 05/26/2024 Priority: High Lumbar stenosis with neurogenic claudication [M48.062] 05/25/2024 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 / male who presented with a chief complaint of right bilateralshoulder and bilateral lower extremity pain with movement or weight bearing. He has a significant past medical history of lumbar spine surgery L4-L5 in 2022 and Cervical fusion around 1984, CAD s/p PTCA, type 2 diabetes mellitus, CKD stage III, HTN, HLD and is a current smoker. MRI cervical spine showed severe spinal canal stenosis at C3-4 and C4-5 with flattening of the spinal cord and abnormal bilateral paracentral cord T2 hyperintensity at the C4-5 level consistent with spondylotic myelomalacia. MRI lumbar showed canal stenosis measuring 6 mm in AP dimension and narrowing of the lateral recesses. Patient taken to the OR on 05/27/24 for C3-C7 posterior cervical decompression and fusion andextension of posterior lumbar fusion to include L3. Plan: Cervical myelopathy s/p C3-C7 posterior cervical decompression and fusion on 05/27/24 Lumbar stenosis s/p extension of posterior lumbar fusion to L3 on 05/27/24 Cyclobenzaprine 10mg PO nightly Gabapentin 300mg PO BiD Neurosurgery recs appreciated Tylenol 650 mg po q 6 Rison 5-325 po q PRN 4 hours, 2 tablets q 4 hours PRN Dilaudid 0.5 mg IV q 3 hours PRN, 1 mg IV q 3 hours PRN Incentive Spirometry PT/OT (unable to work with due to pain, will re-attempt) -Waiting for SNF placement (patient does not feel comfortable going home in current condition) Angioedema - Resolved. Given 1 dose of solumedrol 80 mg and IV Benadryl of 25 mg. Monitor progression Monitor for respiratory changes. Leukocytosis, resolved Post op: WBC 12.6 > 8.9 MEAGHAN on CKD stage III Improving MEAGHAN. eGFR 36, Cr 2.5 on admit > 1.9, BUN 58 Strict I/Os HTN BP goal <140/90 Started hydralazine 50 mg PO Q8h Continue Coreg 25mg BiD Labetalol 10mg IV Q6h PRN Start spironolactone 25 mg po daily CAD TTE - EF 45-50% Continue Lipitor 20mg PO QD Continue imdur 30mg PO QD T2DM Insulin glargine 25 units SC BiD Insulin Lispro as per HDSS Patient or family members expressed understanding on topics that were discussed and all their questions were answered. Follow-up further recommendations after discussing case with the attending. The plan was discussed with the patient, patient's family and the medical staff. Consultations: IP CONSULT TO NEUROLOGY IP CONSULT TO NEUROSURGERY IP CONSULT TO INTERNAL MEDICINE IP CONSULT TO CARDIOLOGY IP CONSULT TO PHYSICAL MEDICINE REHAB Patient is admitted as inpatient status because of co-morbidities listed above, severity of signs and symptoms as outlined, requirement for current medical therapies and most importantly because of direct risk to patient if care not provided in a hospital setting. Rafat Murillo MD Neurology Resident PGY-3 06/01/2024 1:40 PM Copy sent to Lolita Iyer DO I have discussed the case of Gage Lugo, including pertinent history and exam findings withthe resident. I have seen and examined the patient and the pablo elements of the encounter have been performed by me. I agree with the assessment, plan and orders as documented by the resident with changes made to the note as needed. Fran Dorantes MD Neurology This note is created with the assistance of a speech-recognition program. While intending to generate a document that actually reflects the content of the visit, the document can still have some errors including those of syntax and sound a- like substitutions which may escape proofreading. In such instances, actual meaning can be extrapolated by contextual derivation. * Edin Bridges DO - 06/01/2024 1:06 PM EDT Progress Note - Neurosurgery Chief Complaint Patient presents with Pain Bilat shoulders, back and bilat legs Subjective: Gage Lugo is a 74 y.o. male. Complaining of stable incisional pain in the neck and back region. Improved sensation to the left foot and states it feels warm whereas previously it was completely cold. Has improved sensation of his hands as well Review of Systems Objective: Blood pressure (!) 101/50, pulse 74, temperature 99.1 F (37.3 C), temperature source Oral, resp. rate 13, height 1.651 m (5' 5 ), weight 71.6 kg (157 lb 13.6 oz), SpO2 98%. Physical Exam Awake alert. Normoxic. Soft nondistended abdomen Neurologic Exam 5 out of 5 bilateral upper extremities Left lower extremity is still 4 - dorsiflexion and 4+ plantarflexion but otherwise 5 out of 5. Abnormal sensation distal greater than proximal left lower extremity Labs: No results found for any previous visit. No results found for this or any previous visit. No results found for this or any previous visit. No results found for this or any previous visit. No results found for this or any previous visit. Assessment and Plan: Cervical stenosis with myelopathy Adjacent level lumbar disease with stenosis Foot drop Status post cervical decompression fixation fusion and lumbar extension of fusion to L3 lysis of adhesions and laminectomy with 3 arthrodesis at L4-L5 Continue aggressive physical therapy, Lovenox, spirometry, medical management, therapy. Awaiting fdc facility placement. Did have an extensive discussion with the patient's daughter who is very apprehensive about the patient going home due to having minimal help and living alone. States that his girlfriend is frail andnot able to help him much. I did directly discuss with the case finishing machine adjuster timeframe for discharge to fdc facility and she stated that records were submitted and pre-CERT has not yet been started. Estimated duration is 3 to 4 days. Edin Bridges DO 06/01/2024 * Shaista Naik, TANK FILLER - 06/01/2024 10:02 AM EDT Images from the original note were not included. Physical Therapy Physical Therapy Cancel Note DATE: 06/01/2024 NAME: Gage Lugo : 1950 Patient not seen this date for Physical Therapy due to: Patient Declined: Pt working with OT when therapist initially arrived. He finished and at breakfast, upon return pt reports being in extreme pain. RN just returned pt to supine. He declines therapy at this time but is open to therapy later if pain is controlled. * Hafsa Richardson OTA - 06/01/2024 9:26 AM EDT Occupational Therapy Facility/Department: [address] [place] Daily Treatment Note Patient Name: Gage Lugo : 1950 Date of Service: 06/01/2024 Discharge Recommendations Discharge Recommendations: Patient would benefit from continued therapy after discharge Assessment Performance deficits / Impairments: Decreased functional mobility ;Decreased endurance;Decreased coordination;Decreased ADL status;Decreased balance;Decreased safe awareness Assessment: Patient is normaly independent with functional mobility, personal ADLs and household tasks. At this time patient requires CGA for functional mobility and SBA to MIN A with ADLs. Patient would benefit from therapy during stay in acute setting. Patient is expected to be safe to return to prior living arrangement with 24/ assistance from spouse and daughter to safely perform personal ADLs and mobility. Prognosis: Good Activity Tolerance Activity Tolerance: Patient Tolerated treatment well;Patient limited by pain Safety Devices Type of Devices: All fall risk precautions in place;Call light within reach;Gait belt;Nurse notified;Left in chair Restraints Restraints Initially in Place: No Restrictions/Precautions Restrictions/Precautions Restrictions/Precautions: Fall Risk;Up as Tolerated;Surgical Protocols Required Braces or Orthoses?: Yes Required Braces or Orthoses Cervical: c-collar (When OOB or eating) Position Activity Restriction Spinal Precautions: No Bending;No Twisting;No Lifting Other position/activity restrictions: Activity as tolerated, Posterior decompression fusion C3-7, extension of lumbar fusion to L 3 05/27, Cervical collar out bed, may remove in bed or when eating Subjective General Patient assessed for rehabilitation services?: Yes Response to previous treatment: Patient with no complaints from previous session Family / Caregiver Present: No General Comment Comments: RN ok'd patient for OT treatment this date. Pt supine in bed upon DICK arrival. Pt agreeable to session with encouragement. Pt reporting 10/10 pain with RN present for medications. Pt positioned for best comfort in chair at end of session. Objective Orientation Overall Orientation Status: Within Functional Limits Orientation Level: Oriented X4 Cognition Overall Cognitive Status: Exceptions Arousal/Alertness: Appears intact Following Commands: Follows multistep commands with increased time Attention Span: Appears intact Safety Judgement: Decreased awareness of need for assistance;Decreased awareness of need for safety Problem Solving: Assistance required to identify errors made;Assistance required to generate solutions;Assistance required to correct errors made;Decreased awareness of errors Insights: Decreased awareness of deficits Initiation: Requires cues for some Activities of Daily Living Grooming: Modified independent Grooming Skilled Clinical Factors: Pt was able to complete oral care, wipe face and wash hands while standing at sink with SBA for balance and safety UE Dressing: Stand by assistance;Verbal cueing UE Dressing Skilled Clinical Factors: Pt was able to don C-collar with SBA and min verbal cues for positioning Toileting: Stand by assistance Toileting Skilled Clinical Factors: Pt stood at toilet for urination this session with SBA for safety and balance. Additional Comments: Pt reports having full shower early this moring with nursing staff but was willing to get up for above tasks with min encouragement. Pt required education on importance of OOB activity and back care promotion to aid in decreasing pain and increasing function. Balance Balance Sitting: Intact (Pt sat EOB 5 minutes unsupported and 5 minutes in recliner supported supervision and independent) Standing: With support (Pt stood with RW CGA for safety. Pt stood at sink ~4-5 minutes for oral care and washing hands with no LOB and one UE support throughout. Pt also stood 2 minutes during functional mobility in room) Transfers/Mobility Bed mobility Supine to Sit: Contact guard assistance Sit to Supine: Unable to assess Scooting: Stand by assistance Bed Mobility Comments: HOB elevated ~35 degrees, bedrail use, increased time and effort to complete. Pt concluded session seated in recliner. Transfers Sit to stand: Contact guard assistance Stand to sit: Stand by assistance Transfer Comments: Use of RW and min verbal cues for body mechanics Toilet Transfers Toilet - Technique: Ambulating Equipment Used: Standard toilet Toilet Transfer: Stand by assistance Toilet Transfers Comments: Pt stood at toilet for urination this session Functional Mobility: Contact guard assistance Functional Mobility Skilled Clinical Factors: Pt completed functional mobility with RW CGA throughout room for ADL tasks. Pt moves slowly and c/o increased pain. Patient Education Patient Education Education Given To: Patient Education Provided: Role of Therapy;ADL Adaptive Strategies;Transfer Training Education Provided Comments: back care/precuations, c-collar, safety, importance of increased activity Education Method: Demonstration;Verbal Barriers to Learning: None Education Outcome: Verbalized understanding;Continued education needed;Demonstrated understanding Goals Short Term Goals Time Frame for Short Term Goals: Prior to discharge Short Term Goal 1: Patient to demonstrate dyanmic sitting balance with supervision for increased independence with LB dressing Short Term Goal 2: Patient to demonstrate static standing balance with supervision 12-15 minutes atsink for increased independence with A.M ADLs. Short Term Goal 3: Patient to perform functional mobility household distances with LRAD with Supervision Short Term Goal 4: Patient to perform bathroom transfers with supervision Short Term Goal 5: Patient to demonstarte LB dressing ADLs with set up Assist following spinal precaution 100% of the time Additional Goals?: No Plan Occupational Therapy Plan Times Per Week: 3-5x/wk AM-[facility] Daily Activities Inpatient AM-[facility] Daily Activity - Inpatient How much help is needed for putting on and taking off regular lower body clothing?: A Little How much help is needed for bathing (which includes washing, rinsing, drying)?: A Little How much help is needed for toileting (which includes using toilet, bedpan, or urinal)?: A Little How much help is needed for putting on and taking off regular upper body clothing?: A Little How much help is needed for taking care of personal grooming?: None How much help for eating meals?: None AM-[facility] Inpatient Daily Activity Raw Score: 20 AM-[facility] Inpatient ADL T-Scale Score : 42.03 ADL Inpatient CMS 0-100% Score: 38.32 ADL Inpatient CMS G-Code Modifier : CJ Minutes OT Individual Minutes Time In: 0844 Time Out: 0908 Minutes: 24 Time Code Minutes Timed Code Treatment Minutes: 24 Minutes * Radha Bryan RN - 06/01/2024 6:33 AM EDT Pt wanted to shower. Messaged MD about dressing, told to remove and leave open to air. * Radha Bryan RN - 06/01/2024 5:05 AM EDT Pt complaining of 8/10 pain. Refusing pain meds. Educated pt on pain management. Pt agreeable to ice. quill machine tender notified. * Pinky Alvarado RD - 05/31/2024 12:12 PM EDT Comprehensive Nutrition Assessment Type and Reason for Visit: Initial, RD Nutrition Re-Screen/LOS Nutrition Recommendations/Plan: Continue current diet as tolerated Monitor PO intake, wt, labs, meds, BM Malnutrition Assessment: Malnutrition Status: No malnutrition (05/31/24 1212) Context: Acute Illness Findings of the 6 clinical characteristics of malnutrition: Energy Intake: No significant decrease in energy intake Weight Loss: No significant weight loss Body Fat Loss: Unable to assess Muscle Mass Loss: Unable to assess Fluid Accumulation: No significant fluid accumulation Resident Buyer Strength: Not Performed Nutrition Assessment: LOS. Adm foruncontrolled pain specifically in his right lower extremity, bilateral shoulders, back,and neck. Was admitted at [place] and had mulltiple tests done. Per chart review, began ~ 2 weeks ago when he woke up from sleeping and he was experiencing bilateral shoulder pain. He is unable to raise his arms past 90 degrees without having significant pain in his bilateral trapezius muscles that radiates into his neck. Regarding the right lower extremity, he states that is his worst symptom and he is unable to move his right lower extremity without significant pain. Pt is hoping ot go home after discharge, is tolerating current diabetic 5 carb diet and consuming 75-100% of his meals. LBM 05/28 without any constipation. Received glycolax today. No edema. Calcium 8.2. Nutrition Related Findings: Meds/labs reviewed Wound Type: None Current Nutrition Intake & Therapies: Average Meal Intake: 76-100% Average Supplements Intake: None Ordered ADULT DIET; Regular; 5 carb choices (75 gm/meal) Anthropometric Measures: Height: 165.1 cm (5' 5 ) [place] Body Weight (IBW): 136 lbs (62 kg) Admission Body Weight: 71.7 kg (158 lb) Current Body Weight: 71.2 kg (157 lb), IBW. Weight Source: Bed Scale Current BMI (kg/m2): 26.1 Usual Body Weight: 71.7 kg (158 lb) % Weight Change (Calculated): -0.6 Weight Adjustment For: No Adjustment BMI Categories: Overweight (BMI 25.0-29.9) Nutrition Diagnosis: No nutrition diagnosis at this time related to as evidenced by Nutrition Interventions: Food and/or Nutrient Delivery: Continue Current Diet Nutrition Education/Counseling: No recommendation at this time Coordination of Nutrition Care: Continue to monitor while inpatient Goals: Previous Goal Met: (Goal set) Goals: Meet at least 75% of estimated needs, prior to discharge Nutrition Monitoring and Evaluation: Behavioral-Environmental Outcomes: None Identified Food/Nutrient Intake Outcomes: Food and Nutrient Intake Physical Signs/Symptoms Outcomes: Biochemical Data, Constipation, Nutrition Focused Physical Findings, Weight Discharge Planning: No discharge needs at this time Pinky Alvarado MS, RDN, LDN Contact: [phone] * Rusty Locke, BUILDING INSPECTION ENGINEER - METHODS TIME ANALYST - 05/31/2024 10:24 AM EDT Neurosurgery SELVIN/Resident Daily Progress Note Chief Complaint Patient presents with Pain Bilat shoulders, back and bilat legs 05/31/2024 10:24 AM Chart reviewed. No acute events overnight. No new complaints. Numbness improved post operatively. Pain well controlled. Vitals: 05/31/24 0432 05/31/24 0502 05/31/24 0603 05/31/24 0845 BP: (!) 149/76 (!) 147/68 Pulse: Resp: 17 16 Temp: 97.7 F (36.5 C) TempSrc: Oral SpO2: Weight: Height: PE: AOx3 Motor L deltoid 5/5; R deltoid 5/5 L biceps 5/5; R biceps 5/5 L triceps 5/5; R triceps 5/5 L wrist extension 5/5; R wrist extension 5/5 L intrinsics 5/5; R intrinsics 5/5 L iliopsoas 5/5 , R iliopsoas 5/5 L quadriceps 5/5; R quadriceps 5/5 L Dorsiflexion 3/5; R dorsiflexion 5/5 L Plantarflexion 3/5; R plantarflexion 5/5 Sensation intact Incision posterior cervical dressing, c/d/i Lab Results Component Value Date WBC 8.4 05/31/2024 HGB 8.9 (L) 05/31/2024 HCT 28.5 (L) 05/31/2024 PLT 196 05/31/2024 ALT 29 05/27/2024 AST 28 05/27/2024 NA 138 05/31/2024 K 4.0 05/31/2024 CL 109 (H) 05/31/2024 CREATININE 2.2 (H) 05/31/2024 BUN 49 (H) 05/31/2024 CO2 21 05/31/2024 LABA1C 7.4 (H) 05/26/2024 CRP 124.0 (H) 05/23/2024 SEDRATE 49 (H) 05/23/2024 A/P 74 y.o. male who presents with lumbar and cervical stenosis POD 5 s/p posterior cervical decompression/fusion C3-7, extension of posterior lumbar fusion to L3 - activity as tolerated with aspen cervical collar, PT and OT - aspen cervical collar while out of bed, okay to remove while eating and showering - pain control - encourage IS - PM&R for IPR Please contact neurosurgery with any changes in patients neurologic status. Rusty Locke CNP 05/31/24 10:24 AM * Yazan Rainey MD - 05/31/2024 7:48 AM EDT [facility] Neurology IN-PATIENT SERVICE [facility] Progress Note Date: 05/31/2024 Patient name: Gage Lugo Date of admission: 05/23/2024 6:12 PM Account: [id number] Date of : 1950 PCP: Lolita Adorno DO Room: [facility]0544-01 Code Status: Full Code Chief Complaint: Chief Complaint Patient presents with Pain Bilat shoulders, back and bilat legs Interval hx: The patient was seen and examined at bedside. Is vitally stable, alert and oriented. No acute events overnight. Is not having any further right lower extremity pain. PM&R consulted for possible ARU placement. Brief History of Present Illness: The patient is a 74 y.o. / male who presents with Pain in the Bilateral shoulders, back and bilateral legs. He has a past medical history significant for CAD s/p PTCA, type 2 diabetesmellitus, CKD stage III, HTN, HLD and is a current smoker. He initially presented to the ED with a chief complaint of pain, worse in his right leg with inability to bear weight on it. Patient states this pain is a radicular pain with movement that starts in his foot and shoots up the back of the leg into the buttocks and lower back. The pain occurred all of a sudden on 05/23 when he woke up and isonly present with movement or touch/pressure on the extremity. It is a sharp 10/10 pain when it does occur. In addition to that, patient is also complaining of pain in the bilateral shoulders that prevents him from raising either arm above 90 degrees. He recently went to [facility] where initial workup was negative except for elevated ESR and CRP. Per the patient, he underwent a lumbar disc surgery L4-L5 with cage placement in 2022 for left footdrop and left leg abnormal sensation. Since the procedure, the weakness has improved but is still present and had increased sensation to touch but still feels like his left foot is always cold. Additionally he had a cervical fusion around ~1984. On presentation, his total CK levels were 31 and myoglobin 65, CRP was elevated at 124, ESR was elevated at 49 and Aldolase was 2.9. His CBC showed hemoglobin 11.0, hematocrit 33.8, WBC 12.5 and platelet count of 290. MRI cervical on 05/24/24 shows stenosis of C3-C5 with T2 hyperintensity at C4-C5 and MRI lumbar shows worse stenosis of L3-L4. Patient taken to the OR on 05/27/2024 for C3-C7 PCDF andextension of the previous lumbar fusion to L3. Past Medical History: Past Medical History: Diagnosis Date CAD (coronary artery disease) stents x2 from multiple angiograms Diabetes mellitus (HCC) Hyperlipidemia Hypertension Past Surgical History: Past Surgical History: Procedure Laterality Date CARDIAC CATHETERIZATION ', 87, CERVICAL FUSION with collar bone revision 1983 CERVICAL FUSION N/A 05/27/2024 POSTERIOR CERVICAL DECOMPRESSION FUSION CERVICAL THREE THROUGH SEVEN performed by Edin Bridges DO at [facility] OR CERVICAL SPINE SURGERY 05/27/2024 POSTERIOR CERVICAL DECOMPRESSION FUSION CERVICAL THREE THROUGH SEVEN+EXTENSION OF POSTERIOR LUMBAR FUSION TO LUMBAR THREE LUMBAR DISC SURGERY cage placed 2022 LUMBAR FUSION N/A 05/27/2024 EXTENSION OF POSTERIOR LUMBAR FUSION TO LUMBAR THREE performed by Edin Bridges DO at [facility] OR Medications Prior to Admission: Prior to Admission medications Medication Sig Start Date End Date Taking? Authorizing Provider vitamin B-12 (CYANOCOBALAMIN) 1000 MCG tablet Take 1 tablet by mouth daily Yes Mark Ledezma MD insulin glargine (LANTUS) 100 UNIT/ML injection vial Inject 10 Units into the skin 2 times daily Yes Mark Ledezma MD Multiple Vitamins-Minerals (THERAPEUTIC MULTIVITAMIN-MINERALS) tablet Take 1 tablet by mouth daily Yes Mark Ledezma MD aspirin 81 MG chewable tablet Take 1 tablet by mouth daily Yes Mark Ledezma MD atorvastatin (LIPITOR) 20 MG tablet Take 1 tablet by mouth nightly Yes Mark Ledezma MD carvedilol (COREG) 25 MG tablet Take 1 tablet by mouth 2 times daily Yes Mark Ledezma MD cyclobenzaprine (FLEXERIL) 10 MG tablet Take 1 tablet by mouth at bedtime Yes Mark Ledezma MD glipiZIDE (GLUCOTROL) 10 MG tablet Take 1 tablet by mouth daily Yes Mark Ledezma MD hydrALAZINE (APRESOLINE) 50 MG tablet Take 1.5 tablets by mouth 2 times daily Yes Mark Ledezma MD isosorbide mononitrate (IMDUR) 30 MG extended release tablet Take 1 tablet by mouth daily Yes Mark Ledezma MD ferrous sulfate (IRON 325) 325 (65 Fe) MG tablet Take 1 tablet by mouth daily Provider, MD Mark nitroGLYCERIN (NITROSTAT) 0.[address] 1 tablet under the tongue every 5 minutes as needed for Chest pain up to max of 3 total doses. If no relief after 1 dose, call 911. Provider, MD Mark Allergies: Asa [aspirin], Norvasc [amlodipine], and Percocet [oxycodone-acetaminophen] Social History: Tobacco: reports that he has been smoking cigarettes. He has never used smokeless tobacco. Alcohol: reports no history of alcohol use. Drug Use: reports no history of drug use. Family History: History reviewed. No pertinent family history. Review of Systems: Review of Systems Constitutional: Negative for chills, diaphoresis, fatigue and fever. HENT: Negative for hearing loss and tinnitus. Eyes: Negative for visual disturbance. Respiratory: Negative for cough, shortness of breath and wheezing. Cardiovascular: Negative for chest pain and palpitations. Gastrointestinal: Negative for abdominal pain, constipation, diarrhea, nausea and vomiting. Musculoskeletal: Positive for neck pain and neck stiffness. Negative for myalgias. Minimal neck pain from surgery Neurological: Negative for dizziness, weakness, light-headedness, numbness and headaches. Chronic left foot weakness Physical Exam: BP (!) 149/76 Pulse 79 Temp 97.5 F (36.4 C) (Oral) Resp 16 Ht 1.651 m (5' 5 ) Wt 71.6 kg (157 lb 13.6 oz) SpO2 98% BMI 26.27 kg/m Temp (24hrs), Av.8 F (36.6 C), Min:97 F (36.1 C), Max:98.4 F (36.9 C) Recent Labs 05/30/24 1141 05/30/24 1255 05/30/24 1640 05/30/24 1948 POCGLU 88 88 143* 157* Intake/Output Summary (Last 24 hours) at 05/31/2024 0704 Last data filed at 05/31/2024 0433 Gross per 24 hour Intake -- Output 740 ml Net -740 ml Neurologic Exam GENERAL Appears comfortable and in no distress HEENT NC/ AT. There is interval improvement and resolution of angioedema MENTAL STATUS: Alert, oriented, no confusion, fluid speech, normal language. Dysarthria sig improved. CRANIAL NERVES: II - Visual ochoa intact to confrontation III,IV, - PERRL, EOMI, no ptosis V - intact facial sensation VII - Intact facial symmetry VIII - Intact hearing IX,X - Symmetrical palate XI - Symmetrical shoulder shrug XII - Midline tongue, no atrophy MOTOR FUNCTION: RUE: Significant for good strength of grade 5/5 in proximal and distal muscle groups LUE: Significant for good strength of grade 5/5 in proximal and distal muscle groups RLE: Significant for good strength of grade 5/5 in proximal and distal muscle groups LLE: Significant for good strength of grade 5/5 in proximal muscles Plantar flexion 5/5 Dorsiflexion 4-/5 Normal bulk, normal tone and no involuntary movements, no tremor SENSORY FUNCTION: Intact sensation to touch in all extremities-Improved since admission. CEREBELLAR FUNCTION: No dysmetria or dysdiadochokinesia REFLEX FUNCTION: L. Biceps 2/4, R. Biceps 2/4 L. Patellar 2/4, R. Patellar 2/4 Negative babinski and negative larson's STATION and GAIT Not assessed Investigations: Laboratory Testing: Recent Results (from the past 24 hour(s)) POC Glucose Fingerstick Collection Time: 05/30/24 7:55 AM Result Value Ref Range POC Glucose 83 75 - 110 mg/dL POC Glucose Fingerstick Collection Time: 05/30/24 11:41 AM Result Value Ref Range POC Glucose 88 75 - 110 mg/dL POC Glucose Fingerstick Collection Time: 05/30/24 12:55 PM Result Value Ref Range POC Glucose 88 75 - 110 mg/dL POC Glucose Fingerstick Collection Time: 05/30/24 4:40 PM Result Value Ref Range POC Glucose 143 (H) 75 - 110 mg/dL POC Glucose Fingerstick Collection Time: 05/30/24 7:48 PM Result Value Ref Range POC Glucose 157 (H) 75 - 110 mg/dL CBC Collection Time: 05/31/24 3:48 AM Result Value Ref Range WBC 8.4 3.5 - 11.3 k/uL RBC 3.17 (L) 4.21 - 5.77 m/uL Hemoglobin 8.9 (L) 13.0 - 17.0 g/dL Hematocrit 28.5 (L) 40.7 - 50.3 % MCV 89.9 82.6 - 102.9 fL MCH 28.1 25.2 - 33.5 pg MCHC 31.2 28.4 - 34.8 g/dL RDW 13.0 11.8 - 14.4 % Platelets 196 138 - 453 k/uL MPV 10.4 8.1 - 13.5 fL NRBC Automated 0.0 0.0 per 100 WBC Basic Metabolic Panel Collection Time: 05/31/24 3:48 AM Result Value Ref Range Sodium 138 136 - 145 mmol/L Potassium 4.0 3.7 - 5.3 mmol/L Chloride 109 (H) 98 - 107 mmol/L CO2 21 20 - 31 mmol/L Anion Gap 8 (L) 9 - 16 mmol/L Glucose 169 (H) 74 - 99 mg/dL BUN 49 (H) 8 - 23 mg/dL Creatinine 2.2 (H) 0.70 - 1.20 mg/dL Est, Glom Filt Rate 30 (L) >60 mL/min/1.73m2 Calcium 8.2 (L) 8.6 - 10.4 mg/dL Recent Labs 05/31/24 0348 WBC 8.4 RBC 3.17* HGB 8.9* HCT 28.5* MCV 89.9 MCH 28.1 MCHC 31.2 RDW 13.0 PLT 196 MPV 10.4 Recent Labs 05/31/24 0348 NA 138 K 4.0 CL 109* CO2 21 BUN 49* CREATININE 2.2* GLUCOSE 169* CALCIUM 8.2* Hemoglobin A1C Date Value Ref Range Status 05/26/2024 7.4 (H) 4.0 - 6.0 % Final Imaging: FLUORO FOR SURGICAL PROCEDURES Result Date: 05/27/2024 EXAMINATION: SPOT FLUOROSCOPIC IMAGES 05/27/2024 5:49 pm TECHNIQUE: CT fluoroscopy was provided by the radiology department for procedure. Radiologist was not present during examination. FLUOROSCOPY DOSE AND TYPE: 27.5 mGy. COMPARISON: None HISTORY: ORDERING SYSTEM PROVIDED HISTORY: POSTERIOR CERVICAL DECOMPRESSION FUSION CERVICAL THREE THROUGH SEVEN - O ARM TECHNOLOGIST PROVIDED HISTORY: POSTERIOR CERVICAL DECOMPRESSION FUSION CERVICAL THREE THROUGH SEVEN - O ARM Intraprocedural imaging. FINDINGS: Intraoperative CT fluoroscopic images are provided for review. The images demonstrate a large surgical defect in the soft tissues posterior to the lower lumbar spine. Bilateral pedicle screws are i n place at L3 and appear to be appropriately positioned. Status post interval explantation of the previously identified pedicle screws and vertical stabilization rods at L4-5. Status post L4-5 discectomy. A surgical wire is present in the posterior aspect of the central canal at the L3-4 interspaceand L4 levels. No fracture or other acute osseous abnormality identified. Intraprocedural CT fluoroscopic images as above. See separate procedure report for more information. Echo (TTE) complete (PRN contrast/bubble/strain/3D) Result Date: 05/26/2024 Left Ventricle: Mildly reduced left ventricular systolic function with a visually estimated EF of 45 - 50%. Left ventricle size is normal. Increased wall thickness. Findings consistent with mild concentric hypertrophy. Normal wall motion. Normal diastolic function. Aortic Valve: Trileaflet valve. Mitral Valve: Mildly thickened leaflets. Moderate regurgitation. MR PISA Radius: 0.8 cm, MR ERO: 0.21cm2, MR Volume: 41 mls. Mild stenosis noted. Image quality is adequate. CT LUMBAR SPINE WO CONTRAST Result Date: 05/25/2024 EXAMINATION: CT OF THE LUMBAR SPINE WITHOUT CONTRAST 05/25/2024 TECHNIQUE: CT of the lumbar spine was performed without the administration of intravenous contrast. Multiplanar reformatted images are provided for review. Adjustment of mA and/or kV according to patient size was utilized. Automated exposure control, iterative reconstruction, and/or weight based adjustment of the mA/kV was utilized toreduce the radiation dose to as low as reasonably achievable. COMPARISON: None HISTORY: ORDERING SYSTEM PROVIDED HISTORY: eval hardware TECHNOLOGIST PROVIDED HISTORY: eval hardware Reason for Exam: PAIN EVAL HARDWARE FINDINGS: BONES/ALIGNMENT: The vertebral body heights are maintained. There is posterior hardware fixation at L4-5 with associated laminectomy. The hardware is intact. There may be minimal lucency developing adjacent to the transpedicular screws at the L5 level. There is no spondylolisthesis. DEGENERATIVE CHANGES: The remaining disc spaces are maintained. There is mild multileveldegenerative facet hypertrophy. There is no significant bony canal stenosis. There is a degree of bilateral bony foraminal narrowing at L5-S1. SOFT TISSUES/RETROPERITONEUM: No paraspinal mass is seen. Posterior fixation at L4-5 with associated laminectomy and hardware is intact. Potential minimal lucency developing adjacent to the transpedicular screws at the L5 level. Multilevel degenerative facet hypertrophy with bilateral bony foraminal narrowing at L5-S1. MRI CERVICAL SPINE WO CONTRAST Result Date: 05/24/2024 EXAMINATION: MRI OF THE CERVICAL SPINE WITHOUT CONTRAST 05/24/2024 10:56 pm TECHNIQUE: Multiplanar multisequence MRI of the cervical spine was performed without the administration of intravenous contrast. COMPARISON: None. HISTORY: ORDERING SYSTEM PROVIDED HISTORY: assess for stenosis TECHNOLOGIST PROVIDED HISTORY: assess for stenosis Reason for Exam: assess for stenosis FINDINGS: Motion limited evaluation. BONES/ALIGNMENT: Vertebral heights are maintained. There is straightening of the cervicallordosis without spondylolisthesis. Edematous degenerative changes are present at C6-7. SPINAL CORD: Abnormal bilateral paracentral spinal cord T2 hyperintensity at the C4-5 level. No mass or abnormal fluid collection within the spinal canal. SOFT TISSUES: Paraspinal soft tissues are unremarkable. C2-C3: Disc height and signal maintained. No significant neural foraminal narrowing or spinal canal stenosis. C3-C4: Mild disc height loss and desiccation. Severe bilateral neural foraminal narrowing s econdary to uncovertebral hypertrophy. Severe spinal canal stenosis secondary to disc bulge and left posterior paracentral disc protrusion with flattening of the spinal cord. C4-C5: Mild disc height loss and desiccation. Severe bilateral neural foraminal narrowing secondary to uncovertebral hypertrophy. Severe spinal canal stenosis secondary to disc bulge with flattening of the spinal cord. C5-C6: Mild disc height loss and desiccation. Severe left and moderate right neural foraminal narrowing secondary to uncovertebral hypertrophy. Mild spinal canal stenosis secondary to disc bulge. C6-C7: Severe disc height loss and desiccation. Severe bilateral neural foraminal narrowing secondary to uncov ertebral hypertrophy. Moderate spinal canal stenosis secondary to disc bulge and ligamentum flavum hypertrophy. C7-T1: Mild disc height loss and desiccation. Mild left neural foraminal narrowing secondary to uncovertebral and facet hypertrophy. No right neural foraminal narrowing. Mild spinal canalstenosis secondary to disc bulge. 1. Motion limited evaluation. 2. Severe spinal canal stenosis at C3-4 and C4-5 with flattening of the spinal cord and abnormal bilateral paracentral cord T2 hyperintensity at the C4-5 level consistent with spondylotic myelomalacia, although a component of cord edema may be present. 3. Moderate spinal canal stenosis at C6-7. 4. Moderate and severe multilevel neural foraminal narrowing as detailed above. Vascular duplex lower extremity arteries right Result Date: 05/24/2024 Patent arteries of the right lower extremity with no evidence of significant stenosis. Vascular duplex lower extremity venous right Result Date: 05/24/2024 No evidence of deep vein or superficial vein thrombosis in the right lower extremity. XR SPINE ENTIRE (2-3 VIEWS) Result Date: 05/24/2024 EXAMINATION: TWO XRAY VIEWS SCOLIOSIS SERIES 05/24/2024 6:50 pm COMPARISON: MRI lumbar spine 05/24/2024. HISTORY: ORDERING SYSTEM PROVIDED HISTORY: standing Ap and lateral full spine -- C2 to pelvix & include both femoral heads TECHNOLOGIST PROVIDED HISTORY: standing Ap and lateral full spine --C2 to pelvix & include both femoral heads FINDINGS: Status post posterior fusion and discectomyat L4-5 without complication identified. Mild levoscoliosis of the lower thoracic spine with a Cobbangle of approximately 6 degrees. Mild dextroscoliosis of the lumbar spine with a Raza angle approximately 8 degrees. Normal alignment is otherwise maintained. The vertebral body heights are preserved. No fracture or other acute osseous abnormality identified. Mild multilevel degenerative disc disease throughout the thoracic and lumbar spine. The bilateral sacroiliac joints are intact. The bilateral hips are grossly unremarkable. The soft tissues are unremarkable. 1. Mild levoscoliosis of the lower thoracic spine and mild dextroscoliosis of the lumbar spine. 2. Status post posterior fusion and discectomy at L4-5 without complication identified. MRI BRAIN WO CONTRAST Result Date: 05/24/2024 EXAMINATION: MRI OF THE BRAIN WITHOUT CONTRAST 05/24/2024 3:24 pm TECHNIQUE: Multiplanar multisequence MRI of the brain was performed without the administration of intravenous contrast. COMPARISON: None. HISTORY: ORDERING SYSTEM PROVIDED HISTORY: Right leg weakness TECHNOLOGIST PROVIDED HISTORY: Right leg weakness What is the sedation requirement?->None Reason for Exam: Right leg weakness FINDINGS: INTRACRANIAL STRUCTURES/VENTRICLES: The sellar and suprasellar structures, optic chiasm, corpuscallosum, pineal gland, tectum, and midline brainstem structures are unremarkable. The craniocervical junction is unremarkable. There is no acute hemorrhage, mass effect, or midline shift. There is satisfactory overall bautista-white matter differentiation. There is chronic microvascular disease. The ventricular structures are symmetric and unremarkable. The infratentorial structures including the cerebellopontine angles and internal auditory canals are unremarkable. There is no abnormal restricteddiffusion. There is no abnormal blooming artifact on susceptibility weighted imaging. ORBITS: The visualized portion of the orbits demonstrate no acute abnormality. SINUSES: There is opacification ofthe left maxillary sinus likely related to chronic sinusitis. The mastoid air cells are normally aerated. BONES/SOFT TISSUES: The bone marrow signal intensity appears normal. The soft tissues demonstrate no acute abnormality. Chronic microvascular disease without acute intracranial abnormality. Chronic sinusitis of the leftmaxillary sinus. MRI LUMBAR SPINE WO CONTRAST Result Date: 05/24/2024 EXAMINATION: MRI OF THE LUMBAR SPINE WITHOUT CONTRAST, 05/24/2024 3:24 pm TECHNIQUE: Multiplanar multisequence MRI of the lumbar spine was performed without the administration of intravenous contrast.COMPARISON: None. HISTORY: ORDERING SYSTEM PROVIDED HISTORY: acute onset RLE severe, radiating pain/ allodynia TECHNOLOGIST PROVIDED HISTORY: acute onset RLE severe, radiating pain / allodynia What is the sedation requirement?->None Reason for Exam: acute onset RLE severe, radiating pain / allodynia FINDINGS: BONES/ALIGNMENT: The vertebral body heights are maintained. There is age-appropriatebone marrow signal. There is posterior fixation at L4-5 without complication. There is multilevel de generative disc disease at the remaining levels with loss of disc signal. There is no spondylolisthesis. SPINAL CORD: The conus terminates normally. SOFT TISSUES: No paraspinal mass identified. L1-L2: There is a circumferential disc bulge with facet hypertrophy. There is no canal stenosis or foraminal narrowing. L2-L3: There is a circumferential disc bulge with facet and ligamentous hypertrophy. There is no canal stenosis or foraminal narrowing. L3-L4: There is a circumferential disc bulge withfacet and ligamentous hypertrophy. There is canal stenosis measuring 6 mm in AP dimension. There isnarrowing of the lateral recesses. There is aeje-vs-mcqbuqbz left and moderate right foraminal narrowing. L4-L5: There is a circumferential disc bulge with posterior laminectomy. There is no canal stenosis. There is moderate foraminal narrowing. L5-S1: There is a circumferential disc bulge with facet hypertrophy. There is no canal stenosis. There is moderate to severe left and severe right foraminal narrowing. Multilevel degenerative change with canal stenosis at L3-4. Foraminal narrowing as described above.Posterior fixation and laminectomy at L4-5 without complication. 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 / male who presented with a chief complaint of right bilateralshoulder and bilateral lower extremity pain with movement or weight bearing. He has a significant past medical history of lumbar spine surgery L4-L5 in 2022 and Cervical fusion around 1984, CAD s/p PTCA, type 2 diabetes mellitus, CKD stage III, HTN, HLD and is a current smoker. MRI cervical spine showed severe spinal canal stenosis at C3-4 and C4-5 with flattening of the spinal cord and abnormal bilateral paracentral cord T2 hyperintensity at the C4-5 level consistent with spondylotic myelomalacia. MRI lumbar showed canal stenosis measuring 6 mm in AP dimension and narrowing of the lateral recesses. Patient taken to the OR on 05/27/24 for C3-C7 posterior cervical decompression and fusion andextension of posterior lumbar fusion to include L3. Plan: Cervical myelopathy s/p C3-C7 posterior cervical decompression and fusion on 05/27/24 Lumbar stenosis s/p extension of posterior lumbar fusion to L3 on 05/27/24 Cyclobenzaprine 10mg PO nightly Gabapentin 300mg PO BiD Neurosurgery recs appreciated Heparin 5k units subQ Q8h PT/OT Angioedema - Resolved. Given 1 dose of solumedrol 80 mg and IV Benadryl of 25 mg. Monitor progression Monitor for respiratory changes. Leukocytosis, resolved Post op: WBC 12.6. Will monitor MEAGHAN on CKD stage III Improving MEAGHAN. eGFR 36, Cr 2.5 on admit > 1.9, BUN 58 Strict I/Os HTN BP goal <140/90 Started hydralazine 50 mg PO Q8h Continue Coreg 25mg BiD Labetalol 10mg IV Q6h PRN CAD TTE - EF 45-50% Continue Lipitor 20mg PO QD Continue imdur 30mg PO QD T2DM Insulin glargine 25 units SC BiD Insulin Lispro as per HDSS Follow-up further recommendations after discussing case with the attending. The plan was discussed with the patient, patient's family and the medical staff. Consultations: IP CONSULT TO NEUROLOGY IP CONSULT TO NEUROSURGERY IP CONSULT TO INTERNAL MEDICINE IP CONSULT TO CARDIOLOGY IP CONSULT TO PHYSICAL MEDICINE REHAB Patient is admitted as inpatient status because of co-morbidities listed above, severity of signs and symptoms as outlined, requirement for current medical therapies and most importantly because of direct risk to patient if care not provided in a hospital setting. Yazan Rainey MD, 05/31/2024 7:48 AM Associated attestation - Fran Dorantes MD - 05/31/2024 9:23 PM EDT I have discussed the case of Gage Lugo, including pertinent history and exam findings withthe resident. I have seen and examined the patient and the pablo elements of the encounter have been performed by me. I agree with the assessment, plan and orders as documented by the resident with changes made to the note as needed. Fran Dorantes MD Neurology This note is created with the assistance of a speech-recognition program. While intending to generate a document that actually reflects the content of the visit, the document can still have some errors including those of syntax and sound a- like substitutions which may escape proofreading. In such instances, actual meaning can be extrapolated by contextual derivation. * Yossi Buchanan PTA - 05/30/2024 3:19 PM EDT Physical Therapy Facility/Department: [address] [place] Physical Therapy Treatment Note Name: Gage Lugo : 1950 Date of Service: 05/30/2024 Discharge Recommendations: Patient would benefit from continued therapy after discharge PT Equipment Recommendations Equipment Needed: No Patient Diagnosis(es): The primary encounter diagnosis was Pain in right lower leg. 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 Past Medical History: has a past medical history of CAD (coronary artery disease), Diabetes mellitus (HCC), Hyperlipidemia, and Hypertension. Past Surgical History: has a past surgical history that includes Cardiac catheterization; cervical fusion; Lumbar disc surgery; Cervical spine surgery (05/27/2024); cervical fusion (N/A, 05/27/2024); and lumbar fusion (N/A, 05/27/2024). Assessment Body Structures, Functions, Activity Limitations Requiring Skilled Therapeutic Intervention: Decreased functional mobility ;Decreased ADL status;Decreased body mechanics;Decreased strength;Decreased high-level IADLs;Decreased balance;Decreased endurance;Decreased safe awareness;Increased pain;Decreased coordination Assessment: Pt ambulated 140 ft with RW and CGA. Pt completed ransfers with CGA and increased time.Pt is demonstrating general unsteadiness without any true LOB. Pt would benefit from continued therapy to promote endurance, balance, and strengthening. Therapy Prognosis: Good Activity Tolerance Activity Tolerance: Patient limited by endurance;Patient limited by fatigue Plan Physical Therapy Plan General Plan: (5-6x) Current Treatment Recommendations: Strengthening, Balance training, Functional mobility training, Transfer training, ADL/Self-care training, IADL training, Endurance training, Equipment evaluation, education, & procurement, Patient/Caregiver education & training, Neuromuscular re-education,Safety education & training, Gait training, Stair training, Home exercise program, Therapeutic activities Safety Devices Type of Devices: All fall risk precautions in place, Call light within reach, Gait belt, Nurse notified, Left in bed Restraints Restraints Initially in Place: No Restrictions Restrictions/Precautions Restrictions/Precautions: Fall Risk, Up as Tolerated Required Braces or Orthoses?: Yes Required Braces or Orthoses Cervical: c-collar ([place]) Position Activity Restriction Spinal Precautions: No Bending, No Twisting, No Lifting Other position/activity restrictions: Activity as tolerated, Posterior decompression fusion C3-7, extension of lumbar fusion to L 3 05/27, Cervical collar out bed, may remove in bed or when eating Subjective General Chart Reviewed: No Patient assessed for rehabilitation services?: Yes Response To Previous Treatment: Patient with no complaints from previous session. Family / Caregiver Present: No Follows Commands: Within Functional Limits General Comment Comments: Pt retired to bed supine per pt request, call light within reach, and RN notified. Subjective Subjective: Pt and RN agreeable to tx session, Pt in recliner upon arrival with c-collar donned, reporting 8/10 pain in cervical and low back, mobilized to decrease pain, pleasant and cooperative t/osession. Cognition Orientation Overall Orientation Status: Within Functional Limits Orientation Level: Oriented X4 Cognition Overall Cognitive Status: Exceptions Following Commands: Follows multistep commands with increased time;Follows multistep commands with repitition Attention Span: Appears intact Memory: Appears intact Safety Judgement: Decreased awareness of need for assistance;Decreased awareness of need for safety Problem Solving: Assistance required to identify errors made;Assistance required to generate solutions;Assistance required to correct errors made Insights: Decreased awareness of deficits Initiation: Requires cues for some Sequencing: Requires cues for some Objective Bed mobility Supine to Sit: Unable to assess Sit to Supine: Minimal assistance (B LE progression) Scooting: Contact guard assistance Bed Mobility Comments: Pt began session in settlement clerk HOB elevated ~30 degrees for sit to supine, Transfers Sit to Stand: Contact guard assistance Stand to Sit: Contact guard assistance Comment: Assessed with RW, Pt completed x sit<>stands, pt demonstrated good recall of UE handplacement. increased time and effort d/t weakness. Ambulation Surface: Level tile Device: Rolling Walker Assistance: Contact guard assistance Quality of Gait: foot drop LLE, anterior trunk lean, unsteady with no true LOB Gait Deviations: Slow [place];Decreased step length;Decreased step height Distance: 140ft Comments: Pt demonstrated L foot drop may benefit from AFO however able to hip compensate to clear LLE. pt reported minimal dizziness with ambulation decreased once finished More Ambulation?: No Stairs/Curb Stairs?: No Balance Posture: Good Sitting - Static: Good Sitting - Dynamic: Good;- Standing - Static: Fair;+ Standing - Dynamic: Fair Comments: Assessed sitting EOB and with RW. Exercise Treatment: Seated LE exercise program: Long Arc Quads, hip abduction/adduction, heel/toe raises, and marches. Reps: x 15 AM-PAC - Mobility AM-PAC Basic Mobility - Inpatient How much help is needed turning from your back to your side while in a flat bed without using bedrails?: A Little How much help is needed moving from lying on your back to sitting on the side of a flat bed withoutusing bedrails?: A Little How much help is needed moving to and from a bed to a chair?: A Little How much help is needed standing up from a chair using your arms?: A Little How much help is needed walking in hospital room?: A Little How much help is needed climbing 3-5 steps with a railing?: A Lot AM-[facility] Inpatient Mobility Raw Score : 17 AM-[facility] Inpatient T-Scale Score : 42.13 Mobility Inpatient CMS 0-100% Score: 50.57 Mobility Inpatient CMS G-Code Modifier : CK Goals Short Term Goals Time Frame for Short Term Goals: 14 visits Short Term Goal 1: Complete transfers with RW and mod I Short Term Goal 2: Complete 300 ft of gait with RW and mod I Short Term Goal 3: Participate in 30 minutes of therapy to promote endurance Short Term Goal 4: Complete bed mobility independently with HOB flat Education Patient Education Education Given To: Patient Education Provided: Role of Therapy;Plan of Care;Transfer Training Education Method: Verbal Barriers to Learning: None Education Outcome: Verbalized understanding;Demonstrated understanding Therapy Time Individual Concurrent Group Co-treatment Time In 1427 Time Out 1455 Minutes 28 Timed Code Treatment Minutes: 25 Minutes Yossi Buchanan PTA * Dorinda Hardin, BUILDING INSPECTION ENGINEER - METHODS TIME ANALYST - 05/30/2024 9:15 AM EDT Images from the original note were not included. [place] Copy Worker Progress Note Date: 05/30/2024 Patient name: Gage uLgo Date of admission: 05/23/2024 6:12 PM Date of : 1950 PCP: Lolita Adorno DO Reason for Admission: Neurogenic pain of right lower extremity [M79.2] Pain in right lower leg [M79.661] Acute pain of both shoulders [M25.511, M25.512] Subjective: Clinical Changes /Abnormalities: Patient seen and examined. Denies chest pain or shortness of breath Pt continues to have slight tongue swelling secondary to norvasc. Tele/vitals/labs reviewed . Medications: Scheduled Meds: insulin glargine 10 Units SubCUTAneous BID hydrALAZINE 100 mg Oral 3 times per day cetirizine 10 mg Oral BID sodium chloride flush 5-40 mL IntraVENous 2 times per day acetaminophen 650 mg Oral Q6H polyethylene glycol 17 g Oral Daily famotidine (PEPCID) injection 20 mg IntraVENous Daily Or famotidine 20 mg Oral Daily heparin (porcine) 5,000 Units SubCUTAneous 3 times per day cyclobenzaprine 10 mg Oral Nightly atorvastatin 20 mg Oral Nightly insulin lispro 0-16 Units SubCUTAneous TID WC insulin lispro 0-4 Units SubCUTAneous Nightly carvedilol 25 mg Oral BID WC isosorbide mononitrate 30 mg Oral Daily gabapentin 300 mg Oral BID sodium chloride flush 5-40 mL IntraVENous 2 times per day Continuous Infusions: sodium chloride dextrose sodium chloride CBC: Recent Labs 05/28/24 0734 05/29/24 0718 05/30/24 0302 WBC 12.6* 10.6 9.7 HGB 9.1* 8.8* 7.8* PLT 189 197 176 BMP: Recent Labs 05/28/24 0734 05/29/24 0718 05/30/24 0302 NA 138 139 135* K 4.8 3.7 3.9 CL 112* 111* 107 CO2 16* 21 20 BUN 58* 52* 53* CREATININE 1.9* 2.0* 2.2* GLUCOSE 198* 72* 128* Hepatic: No results for input(s): AST , ALT , BILITOT , ALKPHOS in the last 72 hours. Invalid input(s): ALB Troponin: No results for input(s): TROPHS in the last 72 hours. BNP: No results for input(s): BNP in the last 72 hours. Lipids: No results for input(s): CHOL , HDL in the last 72 hours. Invalid input(s): LDLCALCU INR: No results for input(s): INR in the last 72 hours. DATA: EKG: Yesterday Sinus rhythm with frequent Premature ventricular complexes in a pattern of bigeminy ECHO: Ordered yesterday. Not yet obtained Stress Test: reviewed. 09/25/20 Abnormal [employer] cardiac perfusion stress test. No myocardial ischemia by perfusion imaging. Moderate-sized inferior wall myocardial infarction by perfusion imaging. Abnormal left ventricular systolic function. Left ventricular ejection fraction 52 %. Inferior wall hypokinesis is noted When compared to study from another lab from 2019 there has been no interval changes. Cardiac Angiography: bare metal stent in the right coronary artery in 2006 with repeat angioplasty of the RCA 2016. Nuclear stress test September 2020 revealed The ASCVD Risk score (Amanda DASH, et al., 2019) failed to calculate for the following reasons: Cannot find a previous HDL lab Cannot find a previous total cholesterol lab Objective: Vitals: BP (!) 142/69 Pulse 71 Temp 97 F (36.1 C) (Oral) Resp 17 Ht 1.651 m (5' 5 ) Wt 71.6 kg (157 lb 13.6 oz) SpO2 100% BMI 26.27 kg/m General appearance: alert and cooperative with exam HEENT: Head: Normocephalic, no lesions, without obvious abnormality. 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 Norvasc stopped. Continue coreg and imdur. PAD Record from outside hospital reviewed - moderate aortiilliac disease - recommend vascular consult as outpatient 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 Florian on discharge Ok for patient to be discharged per CV standpoint and for him to follow up outpatient in 2-4 weeks. [place] Copy Worker [employer]. [phone] * Herminio Hernandez MD - 05/30/2024 8:37 AM EDT Images from the original note were not included. [facility] Neurology IN-PATIENT SERVICE [facility] Progress Note Date: 05/30/2024 Patient name: Gage Lugo Date of admission: 05/23/2024 6:12 PM Account: [id number] Date of : 1950 PCP: Lolita Adorno DO Room: [address] [place] [address] Code Status: Full Code Chief Complaint: Chief Complaint Patient presents with Pain Bilat shoulders, back and bilat legs Interval hx: The patient was seen and examined at bedside. Is vitally stable, alert and oriented. Interval resolution of angioedema. Improved speech therefore. We will get opinion of PMR to assess need for ARU. Brief History of Present Illness: The patient is a 74 y.o. / male who presents with Pain in the Bilateral shoulders, back and bilateral legs. He has a past medical history significant for CAD s/p PTCA, type 2 diabetesmellitus, CKD stage III, HTN, HLD and is a current smoker. He initially presented to the ED with a chief complaint of pain, worse in his right leg with inability to bear weight on it. Patient states this pain is a radicular pain with movement that starts in his foot and shoots up the back of the leg into the buttocks and lower back. The pain occurred all of a sudden on 05/23 when he woke up and isonly present with movement or touch/pressure on the extremity. It is a sharp 10/10 pain when it does occur. In addition to that, patient is also complaining of pain in the bilateral shoulders that prevents him from raising either arm above 90 degrees. He recently went to [facility] where initial workup was negative except for elevated ESR and CRP. Per the patient, he underwent a lumbar disc surgery L4-L5 with cage placement in 2022 for left footdrop and left leg abnormal sensation. Since the procedure, the weakness has improved but is still present and had increased sensation to touch but still feels like his left foot is always cold. Additionally he had a cervical fusion around ~1984. On presentation, his total CK levels were 31 and myoglobin 65, CRP was elevated at 124, ESR was elevated at 49 and Aldolase was 2.9. His CBC showed hemoglobin 11.0, hematocrit 33.8, WBC 12.5 and platelet count of 290. MRI cervical on 05/24/24 shows stenosis of C3-C5 with T2 hyperintensity at C4-C5 and MRI lumbar shows worse stenosis of L3-L4. Patient taken to the OR on 05/27/2024 for C3-C7 PCDF andextension of the previous lumbar fusion to L3. Past Medical History: Past Medical History: Diagnosis Date CAD (coronary artery disease) stents x2 from multiple angiograms Diabetes mellitus (HCC) Hyperlipidemia Hypertension Past Surgical History: Past Surgical History: Procedure Laterality Date CARDIAC CATHETERIZATION ', 87, CERVICAL FUSION with collar bone revision 1983 CERVICAL FUSION N/A 05/27/2024 POSTERIOR CERVICAL DECOMPRESSION FUSION CERVICAL THREE THROUGH SEVEN performed by Edin Bridges DO at [facility] OR CERVICAL SPINE SURGERY 05/27/2024 POSTERIOR CERVICAL DECOMPRESSION FUSION CERVICAL THREE THROUGH SEVEN+EXTENSION OF POSTERIOR LUMBAR FUSION TO LUMBAR THREE LUMBAR DISC SURGERY cage placed 2022 LUMBAR FUSION N/A 05/27/2024 EXTENSION OF POSTERIOR LUMBAR FUSION TO LUMBAR THREE performed by Edin Bridges DO at [facility] OR Medications Prior to Admission: Prior to Admission medications Medication Sig Start Date End Date Taking? Authorizing Provider vitamin B-12 (CYANOCOBALAMIN) 1000 MCG tablet Take 1 tablet by mouth daily Yes Mark Ledezma MD insulin glargine (LANTUS) 100 UNIT/ML injection vial Inject 10 Units into the skin 2 times daily Yes Mark Ledezma MD Multiple Vitamins-Minerals (THERAPEUTIC MULTIVITAMIN-MINERALS) tablet Take 1 tablet by mouth daily Yes Mark Ledezma MD aspirin 81 MG chewable tablet Take 1 tablet by mouth daily Yes Mark Ledezma MD atorvastatin (LIPITOR) 20 MG tablet Take 1 tablet by mouth nightly Yes Mark Ledezma MD carvedilol (COREG) 25 MG tablet Take 1 tablet by mouth 2 times daily Yes Mark Ledezma MD cyclobenzaprine (FLEXERIL) 10 MG tablet Take 1 tablet by mouth at bedtime Yes Mark Ledezma MD glipiZIDE (GLUCOTROL) 10 MG tablet Take 1 tablet by mouth daily Yes Mark Ledezma MD hydrALAZINE (APRESOLINE) 50 MG tablet Take 1.5 tablets by mouth 2 times daily Yes Mark Ledezma MD isosorbide mononitrate (IMDUR) 30 MG extended release tablet Take 1 tablet by mouth daily Yes Mark Ledezma MD ferrous sulfate (IRON 325) 325 (65 Fe) MG tablet Take 1 tablet by mouth daily ProviderMark MD nitroGLYCERIN (NITROSTAT) 0.[address] 1 tablet under the tongue every 5 minutes as needed for Chest pain up to max of 3 total doses. If no relief after 1 dose, call 911. ProviderMark MD Allergies: Asa [aspirin], Norvasc [amlodipine], and Percocet [oxycodone-acetaminophen] Social History: Tobacco: reports that he has been smoking cigarettes. He has never used smokeless tobacco. Alcohol: reports no history of alcohol use. Drug Use: reports no history of drug use. Family History: History reviewed. No pertinent family history. Review of Systems: Review of Systems Constitutional: Negative for chills, diaphoresis, fatigue and fever. HENT: Negative for hearing loss and tinnitus. Eyes: Negative for visual disturbance. Respiratory: Negative for cough, shortness of breath and wheezing. Cardiovascular: Negative for chest pain and palpitations. Gastrointestinal: Negative for abdominal pain, constipation, diarrhea, nausea and vomiting. Musculoskeletal: Positive for neck pain and neck stiffness. Negative for myalgias. Minimal neck pain from surgery Neurological: Positive for weakness. Negative for dizziness, light-headedness, numbness and headaches. Chronic left foot weakness Physical Exam: BP (!) 142/69 Pulse 71 Temp 97 F (36.1 C) (Oral) Resp 17 Ht 1.651 m (5' 5 ) Wt 71.6 kg (157 lb 13.6 oz) SpO2 100% BMI 26.27 kg/m Temp (24hrs), Av.5 F (36.9 C), Min:97 F (36.1 C), Max:98.9 F (37.2 C) Recent Labs 05/29/24 1231 05/29/24 1614 05/29/24 1930 05/30/24 0755 POCGLU 95 96 121* 83 Intake/Output Summary (Last 24 hours) at 05/30/2024 0837 Last data filed at 05/30/2024 0546 Gross per 24 hour Intake 380 ml Output 625 ml Net -245 ml Neurologic Exam GENERAL Appears comfortable and in no distress HEENT NC/ AT. There is interval improvement and resolution of angioedema MENTAL STATUS: Alert, oriented, no confusion, fluid speech, normal language. Dysarthria sig improved. CRANIAL NERVES: II - Visual ochoa intact to confrontation III,IV, - PERRL, EOMI, no ptosis V - intact facial sensation VII - Intact facial symmetry VIII - Intact hearing IX,X - Symmetrical palate XI - Symmetrical shoulder shrug XII - Midline tongue, no atrophy MOTOR FUNCTION: RUE: Significant for good strength of grade 5/5 in proximal and distal muscle groups LUE: Significant for good strength of grade 5/5 in proximal and distal muscle groups RLE: Significant for good strength of grade 5/5 in proximal and distal muscle groups LLE: Significant for good strength of grade 5/5 in proximal muscles Plantar flexion 5/5 Dorsiflexion 4-/5 Normal bulk, normal tone and no involuntary movements, no tremor SENSORY FUNCTION: Intact sensation to touch in all extremities-Improved since admission. CEREBELLAR FUNCTION: No dysmetria or dysdiadochokinesia REFLEX FUNCTION: L. Biceps 2/4, R. Biceps 2/4 L. Patellar 2/4, R. Patellar 2/4 Negative babinski and negative larson's STATION and GAIT Not assessed Investigations: Laboratory Testing: Recent Results (from the past 24 hour(s)) POC Glucose Fingerstick Collection Time: 05/29/24 9:37 AM Result Value Ref Range POC Glucose 90 75 - 110 mg/dL POC Glucose Fingerstick Collection Time: 05/29/24 12:31 PM Result Value Ref Range POC Glucose 95 75 - 110 mg/dL POC Glucose Fingerstick Collection Time: 05/29/24 4:14 PM Result Value Ref Range POC Glucose 96 75 - 110 mg/dL POC Glucose Fingerstick Collection Time: 05/29/24 7:30 PM Result Value Ref Range POC Glucose 121 (H) 75 - 110 mg/dL CBC Collection Time: 05/30/24 3:02 AM Result Value Ref Range WBC 9.7 3.5 - 11.3 k/uL RBC 2.82 (L) 4.21 - 5.77 m/uL Hemoglobin 7.8 (L) 13.0 - 17.0 g/dL Hematocrit 25.2 (L) 40.7 - 50.3 % MCV 89.4 82.6 - 102.9 fL MCH 27.7 25.2 - 33.5 pg MCHC 31.0 28.4 - 34.8 g/dL RDW 13.1 11.8 - 14.4 % Platelets 176 138 - 453 k/uL MPV 10.6 8.1 - 13.5 fL NRBC Automated 0.0 0.0 per 100 WBC Basic Metabolic Panel Collection Time: 05/30/24 3:02 AM Result Value Ref Range Sodium 135 (L) 136 - 145 mmol/L Potassium 3.9 3.7 - 5.3 mmol/L Chloride 107 98 - 107 mmol/L CO2 20 20 - 31 mmol/L Anion Gap 8 (L) 9 - 16 mmol/L Glucose 128 (H) 74 - 99 mg/dL BUN 53 (H) 8 - 23 mg/dL Creatinine 2.2 (H) 0.70 - 1.20 mg/dL Est, Glom Filt Rate 30 (L) >60 mL/min/1.73m2 Calcium 7.9 (L) 8.6 - 10.4 mg/dL POC Glucose Fingerstick Collection Time: 05/30/24 7:55 AM Result Value Ref Range POC Glucose 83 75 - 110 mg/dL Recent Labs 05/30/24 0302 WBC 9.7 RBC 2.82* HGB 7.8* HCT 25.2* MCV 89.4 MCH 27.7 MCHC 31.0 RDW 13.1 PLT 176 MPV 10.6 Recent Labs 05/30/24 0302 NA 135* K 3.9 CL 107 CO2 20 BUN 53* CREATININE 2.2* GLUCOSE 128* CALCIUM 7.9* Hemoglobin A1C Date Value Ref Range Status 05/26/2024 7.4 (H) 4.0 - 6.0 % Final Imaging: FLUORO FOR SURGICAL PROCEDURES Result Date: 05/27/2024 EXAMINATION: SPOT FLUOROSCOPIC IMAGES 05/27/2024 5:49 pm TECHNIQUE: CT fluoroscopy was provided by the radiology department for procedure. Radiologist was not present during examination. FLUOROSCOPY DOSE AND TYPE: 27.5 mGy. COMPARISON: None HISTORY: ORDERING SYSTEM PROVIDED HISTORY: POSTERIOR CERVICAL DECOMPRESSION FUSION CERVICAL THREE THROUGH SEVEN - O ARM TECHNOLOGIST PROVIDED HISTORY: POSTERIOR CERVICAL DECOMPRESSION FUSION CERVICAL THREE THROUGH SEVEN - O ARM Intraprocedural imaging. FINDINGS: Intraoperative CT fluoroscopic images are provided for review. The images demonstrate a large surgical defect in the soft tissues posterior to the lower lumbar spine. Bilateral pedicle screws are i n place at L3 and appear to be appropriately positioned. Status post interval explantation of the previously identified pedicle screws and vertical stabilization rods at L4-5. Status post L4-5 discectomy. A surgical wire is present in the posterior aspect of the central canal at the L3-4 interspaceand L4 levels. No fracture or other acute osseous abnormality identified. Intraprocedural CT fluoroscopic images as above. See separate procedure report for more information. Echo (TTE) complete (PRN contrast/bubble/strain/3D) Result Date: 05/26/2024 Left Ventricle: Mildly reduced left ventricular systolic function with a visually estimated EF of 45 - 50%. Left ventricle size is normal. Increased wall thickness. Findings consistent with mild concentric hypertrophy. Normal wall motion. Normal diastolic function. Aortic Valve: Trileaflet valve. Mitral Valve: Mildly thickened leaflets. Moderate regurgitation. MR PISA Radius: 0.8 cm, MR ERO: 0.21cm2, MR Volume: 41 mls. Mild stenosis noted. Image quality is adequate. CT LUMBAR SPINE WO CONTRAST Result Date: 05/25/2024 EXAMINATION: CT OF THE LUMBAR SPINE WITHOUT CONTRAST 05/25/2024 TECHNIQUE: CT of the lumbar spine was performed without the administration of intravenous contrast. Multiplanar reformatted images are provided for review. Adjustment of mA and/or kV according to patient size was utilized. Automated exposure control, iterative reconstruction, and/or weight based adjustment of the mA/kV was utilized toreduce the radiation dose to as low as reasonably achievable. COMPARISON: None HISTORY: ORDERING SYSTEM PROVIDED HISTORY: eval hardware TECHNOLOGIST PROVIDED HISTORY: eval hardware Reason for Exam: PAIN EVAL HARDWARE FINDINGS: BONES/ALIGNMENT: The vertebral body heights are maintained. There is posterior hardware fixation at L4-5 with associated laminectomy. The hardware is intact. There may be minimal lucency developing adjacent to the transpedicular screws at the L5 level. There is no spondylolisthesis. DEGENERATIVE CHANGES: The remaining disc spaces are maintained. There is mild multileveldegenerative facet hypertrophy. There is no significant bony canal stenosis. There is a degree of bilateral bony foraminal narrowing at L5-S1. SOFT TISSUES/RETROPERITONEUM: No paraspinal mass is seen. Posterior fixation at L4-5 with associated laminectomy and hardware is intact. Potential minimal lucency developing adjacent to the transpedicular screws at the L5 level. Multilevel degenerative facet hypertrophy with bilateral bony foraminal narrowing at L5-S1. MRI CERVICAL SPINE WO CONTRAST Result Date: 05/24/2024 EXAMINATION: MRI OF THE CERVICAL SPINE WITHOUT CONTRAST 05/24/2024 10:56 pm TECHNIQUE: Multiplanar multisequence MRI of the cervical spine was performed without the administration of intravenous contrast. COMPARISON: None. HISTORY: ORDERING SYSTEM PROVIDED HISTORY: assess for stenosis TECHNOLOGIST PROVIDED HISTORY: assess for stenosis Reason for Exam: assess for stenosis FINDINGS: Motion limited evaluation. BONES/ALIGNMENT: Vertebral heights are maintained. There is straightening of the cervicallordosis without spondylolisthesis. Edematous degenerative changes are present at C6-7. SPINAL CORD: Abnormal bilateral paracentral spinal cord T2 hyperintensity at the C4-5 level. No mass or abnormal fluid collection within the spinal canal. SOFT TISSUES: Paraspinal soft tissues are unremarkable. C2-C3: Disc height and signal maintained. No significant neural foraminal narrowing or spinal canal stenosis. C3-C4: Mild disc height loss and desiccation. Severe bilateral neural foraminal narrowing s econdary to uncovertebral hypertrophy. Severe spinal canal stenosis secondary to disc bulge and left posterior paracentral disc protrusion with flattening of the spinal cord. C4-C5: Mild disc height loss and desiccation. Severe bilateral neural foraminal narrowing secondary to uncovertebral hypertrophy. Severe spinal canal stenosis secondary to disc bulge with flattening of the spinal cord. C5-C6: Mild disc height loss and desiccation. Severe left and moderate right neural foraminal narrowing secondary to uncovertebral hypertrophy. Mild spinal canal stenosis secondary to disc bulge. C6-C7: Severe disc height loss and desiccation. Severe bilateral neural foraminal narrowing secondary to uncov ertebral hypertrophy. Moderate spinal canal stenosis secondary to disc bulge and ligamentum flavum hypertrophy. C7-T1: Mild disc height loss and desiccation. Mild left neural foraminal narrowing secondary to uncovertebral and facet hypertrophy. No right neural foraminal narrowing. Mild spinal canalstenosis secondary to disc bulge. 1. Motion limited evaluation. 2. Severe spinal canal stenosis at C3-4 and C4-5 with flattening of the spinal cord and abnormal bilateral paracentral cord T2 hyperintensity at the C4-5 level consistent with spondylotic myelomalacia, although a component of cord edema may be present. 3. Moderate spinal canal stenosis at C6-7. 4. Moderate and severe multilevel neural foraminal narrowing as detailed above. Vascular duplex lower extremity arteries right Result Date: 05/24/2024 Patent arteries of the right lower extremity with no evidence of significant stenosis. Vascular duplex lower extremity venous right Result Date: 05/24/2024 No evidence of deep vein or superficial vein thrombosis in the right lower extremity. XR SPINE ENTIRE (2-3 VIEWS) Result Date: 05/24/2024 EXAMINATION: TWO XRAY VIEWS SCOLIOSIS SERIES 05/24/2024 6:50 pm COMPARISON: MRI lumbar spine 05/24/2024. HISTORY: ORDERING SYSTEM PROVIDED HISTORY: standing Ap and lateral full spine -- C2 to pelvix & include both femoral heads TECHNOLOGIST PROVIDED HISTORY: standing Ap and lateral full spine --C2 to pelvix & include both femoral heads FINDINGS: Status post posterior fusion and discectomyat L4-5 without complication identified. Mild levoscoliosis of the lower thoracic spine with a Cobbangle of approximately 6 degrees. Mild dextroscoliosis of the lumbar spine with a Raza angle approximately 8 degrees. Normal alignment is otherwise maintained. The vertebral body heights are preserved. No fracture or other acute osseous abnormality identified. Mild multilevel degenerative disc disease throughout the thoracic and lumbar spine. The bilateral sacroiliac joints are intact. The bilateral hips are grossly unremarkable. The soft tissues are unremarkable. 1. Mild levoscoliosis of the lower thoracic spine and mild dextroscoliosis of the lumbar spine. 2. Status post posterior fusion and discectomy at L4-5 without complication identified. MRI BRAIN WO CONTRAST Result Date: 05/24/2024 EXAMINATION: MRI OF THE BRAIN WITHOUT CONTRAST 05/24/2024 3:24 pm TECHNIQUE: Multiplanar multisequence MRI of the brain was performed without the administration of intravenous contrast. COMPARISON: None. HISTORY: ORDERING SYSTEM PROVIDED HISTORY: Right leg weakness TECHNOLOGIST PROVIDED HISTORY: Right leg weakness What is the sedation requirement?->None Reason for Exam: Right leg weakness FINDINGS: INTRACRANIAL STRUCTURES/VENTRICLES: The sellar and suprasellar structures, optic chiasm, corpuscallosum, pineal gland, tectum, and midline brainstem structures are unremarkable. The craniocervical junction is unremarkable. There is no acute hemorrhage, mass effect, or midline shift. There is satisfactory overall bautista-white matter differentiation. There is chronic microvascular disease. The ventricular structures are symmetric and unremarkable. The infratentorial structures including the cerebellopontine angles and internal auditory canals are unremarkable. There is no abnormal restricteddiffusion. There is no abnormal blooming artifact on susceptibility weighted imaging. ORBITS: The visualized portion of the orbits demonstrate no acute abnormality. SINUSES: There is opacification ofthe left maxillary sinus likely related to chronic sinusitis. The mastoid air cells are normally aerated. BONES/SOFT TISSUES: The bone marrow signal intensity appears normal. The soft tissues demonstrate no acute abnormality. Chronic microvascular disease without acute intracranial abnormality. Chronic sinusitis of the leftmaxillary sinus. MRI LUMBAR SPINE WO CONTRAST Result Date: 05/24/2024 EXAMINATION: MRI OF THE LUMBAR SPINE WITHOUT CONTRAST, 05/24/2024 3:24 pm TECHNIQUE: Multiplanar multisequence MRI of the lumbar spine was performed without the administration of intravenous contrast.COMPARISON: None. HISTORY: ORDERING SYSTEM PROVIDED HISTORY: acute onset RLE severe, radiating pain/ allodynia TECHNOLOGIST PROVIDED HISTORY: acute onset RLE severe, radiating pain / allodynia What is the sedation requirement?->None Reason for Exam: acute onset RLE severe, radiating pain / allodynia FINDINGS: BONES/ALIGNMENT: The vertebral body heights are maintained. There is age-appropriatebone marrow signal. There is posterior fixation at L4-5 without complication. There is multilevel de generative disc disease at the remaining levels with loss of disc signal. There is no spondylolisthesis. SPINAL CORD: The conus terminates normally. SOFT TISSUES: No paraspinal mass identified. L1-L2: There is a circumferential disc bulge with facet hypertrophy. There is no canal stenosis or foraminal narrowing. L2-L3: There is a circumferential disc bulge with facet and ligamentous hypertrophy. There is no canal stenosis or foraminal narrowing. L3-L4: There is a circumferential disc bulge withfacet and ligamentous hypertrophy. There is canal stenosis measuring 6 mm in AP dimension. There isnarrowing of the lateral recesses. There is [id number] left and moderate right foraminal narrowing. L4-L5: There is a circumferential disc bulge with posterior laminectomy. There is no canal stenosis. There is moderate foraminal narrowing. L5-S1: There is a circumferential disc bulge with facet hypertrophy. There is no canal stenosis. There is moderate to severe left and severe right foraminal narrowing. Multilevel degenerative change with canal stenosis at L3-4. Foraminal narrowing as described above.Posterior fixation and laminectomy at L4-5 without complication. 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 / male who presented with a chief complaint of right bilateralshoulder and bilateral lower extremity pain with movement or weight bearing. He has a significant past medical history of lumbar spine surgery L4-L5 in 2022 and Cervical fusion around 1984, CAD s/p PTCA, type 2 diabetes mellitus, CKD stage III, HTN, HLD and is a current smoker. MRI cervical spine showed severe spinal canal stenosis at C3-4 and C4-5 with flattening of the spinal cord and abnormal bilateral paracentral cord T2 hyperintensity at the C4-5 level consistent with spondylotic myelomalacia. MRI lumbar showed canal stenosis measuring 6 mm in AP dimension and narrowing of the lateral recesses. Patient taken to the OR on 05/27/24 for C3-C7 PCDF and extension of posterior lumbar fusion to include L3. Plan: Cervical myelopathy s/p C3-C7 PCDF on 05/27/24 Lumbar stenosis s/p extension of posterior lumbar fusion to L3 on 05/27/24 POD #3 Cyclobenzaprine 10mg PO nightly Gabapentin 300mg PO BiD Neurosurgery recs appreciated Heparin 5k units subQ Q8h PT/OT Angioedema - Resolved. Given 1 dose of solumedrol 80 mg and IV Benadryl of 25 mg. Monitor progression Monitor for respiratory changes. Leukocytosis POD1. WBC 12.6. Will monitor MEAGHAN on CKD stage III Improving MEAGHAN. eGFR 36, Cr 2.5 on admit > 1.9, BUN 58 Strict I/Os HTN BP goal <140/90 Started hydralazine 50 mg PO Q8h Continue Coreg 25mg BiD Labetalol 10mg IV Q6h PRN CAD TTE - EF 45-50% Continue Lipitor 20mg PO QD Continue imdur 30mg PO QD T2DM Insulin glargine 25 units SC BiD Insulin Lispro as per HDSS Follow-up further recommendations after discussing case with the attending. The plan was discussed with the patient, patient's family and the medical staff. Consultations: IP CONSULT TO NEUROLOGY IP CONSULT TO NEUROSURGERY IP CONSULT TO INTERNAL MEDICINE IP CONSULT TO CARDIOLOGY IP CONSULT TO PHYSICAL MEDICINE REHAB Patient is admitted as inpatient status because of co-morbidities listed above, severity of signs and symptoms as outlined, requirement for current medical therapies and most importantly because of direct risk to patient if care not provided in a hospital setting. HERMINIO Hernandez MD, 05/30/2024 8:37 AM Associated attestation - Lyn Culver DO - 05/30/2024 12:59 PM EDT Attending Physician Statement: I have discussed the case of Gage Lugo, including pertinent history and exam findings withthe resident. I have seen and examined the patient and the pablo elements of the encounter have been performed by me. I have reviewed medications, clinical laboratory, imaging and other diagnostic tests with the residents. I agree with the assessment, plan and orders as documented by the resident with changes made to the note as needed. This is a 74 year old male with history of CAD, DM, CKD, HTN, HLD, current smoker who presents with2 week history of RLE pain. He denies any trauma or falls or recent illness. ESR and CRP elevated, CPK WNL. Aldolase pending. MRI C and L spine completed- showed concern for C-spine compression. MRI L spine with multilevel DJD. Patient states symptoms improving on IV steroids and gabapentin Neurosurgery recs appreciated. Plan for OR. PT/OT. LE doppler negative. Discussed with family at bedside. S/p OR with Neurosurgery. S/p cervical decompression and fusion of C3-C7 and posterior lumbar fusion to L3. Had angioedema after Norvasc. Medication discontinued, listed as allergy. Gave benadryl, steroids, PPI, tongue now back to baseline. Will transfer to neuro stepdown for closer monitoring. yLn Culver, 05/30/2024 12:59 PM * Tammi Rincon MD - 05/30/2024 8:00 AM EDT Images from the original note were not included. [facility] Internal Medicine Teaching Residency Program Inpatient Daily Progress Note Patient: Gage Lugo Date of : 1950 Acct: [id number] Room: 44/0544-01 Admit date: 05/23/2024 Today's date: 05/30/24 Number of days in the hospital: 7 SUBJECTIVE CC: Pain (Bilat shoulders, back and bilat legs) Pt examined at bedside. Chart & results reviewed. -Hemodynamically stable. In no apparent distress -Tongue swelling improved. Small mucosal ulcer on left palat and uvula. - BP readings are within range - Glucose readings improved after stopping steroids -Patient will be signing off. Medication reconciliation done and will speak to PCP about change in medications for blood pressure prior to ROS: General ROS: Neck and back soreness Respiratory ROS: Completed and except as mentioned above were negative Cardiovascular ROS: Completed and except as mentioned above were negative Gastrointestinal ROS: Completed and except as mentioned above were negative Genito-Urinary ROS: Completed and except as mentioned above were negative Musculoskeletal ROS: Completed and except as mentioned above were negative Neurological ROS: Completed and except as mentioned above were negative BRIEF HISTORY The patient is a pleasant 74 y.o. male presents with a chief complaint of neurogenic right foot pain. Patient was admitted under neurosurgery service for surgical management of neuropathic pain. IM was consulted for the management of hypertension, type 2 diabetes mellitus, CKD stage III, chronic tobacco use. Last Echo EF of 50 to 55% in 2020 Last Cath 2006, CAD s/p PCI with 2 stents Repeat RCA stent 2016 Last lipid profile Cholesterol 119, HDL 27, TG 382, LDL 16 (10/2023) Last HbA1C 7.9% Hospital Course: The patient complains of right foot pain from [facility] which is sudden, episodic and intense. It is not related to position of movement of the foot and shoots up the leg all the way to the buttocks. The foot was not tender to touch however he had multiple episodes of this pain and was unable to bear weight on it. The patient also complained of bilateral upper extremity weakness particular ly in the shoulders. Patient had increased ESR and CRP on admission, his other labs were unremarkable. Decision was made to operate on the patient cervical as well as lumbar spine and get medical clearance. The patient uses 10 units of insulin glargine at home twice daily. He is also on glipizide for his blood glucose control. The patient uses CGM to monitor blood glucose levels and states that they fluctuate between 110 to 120 mg/dL. The patient is also on aspirin, Lipitor, Coreg, hydralazine. He is on nitrates as needed for cardiac chest pain. OBJECTIVE Vital Signs: BP (!) 142/69 Pulse 71 Temp 98.7 F (37.1 C) (Oral) Resp 17 Ht 1.651 m (5' 5 ) Wt 71.6 kg (157 lb 13.6 oz) SpO2 100% BMI 26.27 kg/m Temp (24hrs), Av.7 F (37.1 C), Min:98.4 F (36.9 C), Max:98.9 F (37.2 C) In: 380 Out: 705 [Urine:500; Drains:205] PHYSICAL EXAMINATION: Constitutional: This is a well developed, well nourished, 25-29.9 - Overweight 62 y.o. year old male who is alert, oriented, cooperative and in no apparent distress. Head:normocephalic and atraumatic. Post-op drain noted in cervical and lower back region. Head and Neck: Tongue no longer swollen. Small left palatal ulcer. Respiratory: Chest was symmetrical without dullness to percussion. Breath sounds bilaterally were clear to auscultation. There were no wheezes, rhonchi or rales. There is no intercostal retraction oruse of accessory muscles. No egophony noted. Cardiovascular: Regular without murmur, clicks, gallops or rubs. Abdomen: Slightly rounded and soft without organomegaly. No rebound, rigidity or guarding was appreciated. Hypoactive bowel sounds Musculoskeletal: Normal curvature of the spine. No gross muscle weakness. Extremities: No lower extremity edema, ulcerations, tenderness, varicosities or erythema. Muscle size, tone and strength are normal. No involuntary movements are noted. Medications: Scheduled Medications: insulin glargine 10 Units SubCUTAneous BID hydrALAZINE 100 mg Oral 3 times per day cetirizine 10 mg Oral BID sodium chloride flush 5-40 mL IntraVENous 2 times per day acetaminophen 650 mg Oral Q6H polyethylene glycol 17 g Oral Daily famotidine (PEPCID) injection 20 mg IntraVENous Daily Or famotidine 20 mg Oral Daily heparin (porcine) 5,000 Units SubCUTAneous 3 times per day cyclobenzaprine 10 mg Oral Nightly atorvastatin 20 mg Oral Nightly insulin lispro 0-16 Units SubCUTAneous TID WC insulin lispro 0-4 Units SubCUTAneous Nightly carvedilol 25 mg Oral BID WC isosorbide mononitrate 30 mg Oral Daily gabapentin 300 mg Oral BID sodium chloride flush 5-40 mL IntraVENous 2 times per day Continuous Infusions: sodium chloride dextrose sodium chloride PRN Medicationssodium chloride flush, 5-40 mL, PRN sodium chloride, , PRN HYDROmorphone, 0.5 mg, Q3H PRN Or HYDROmorphone, 1 mg, Q3H PRN bisacodyl, 10 mg, Daily PRN cyclobenzaprine, 10 mg, TID PRN HYDROcodone 5 mg - acetaminophen, 1 tablet, Q4H PRN HYDROcodone 5 mg - acetaminophen, 2 tablet, Q4H PRN senna, 1 tablet, Daily PRN metoclopramide, 10 mg, Q6H PRN glucose, 4 tablet, PRN dextrose bolus, 125 mL, PRN Or dextrose bolus, 250 mL, PRN glucagon (rDNA), 1 mg, PRN dextrose, , Continuous PRN labetalol, 10 mg, Q6H PRN sodium chloride flush, 5-40 mL, PRN sodium chloride, , PRN LORazepam, 4 mg, Q5 Min PRN ondansetron, 4 mg, Q8H PRN Or ondansetron, 4 mg, Q6H PRN Diagnostic Labs: CBC: Recent Labs 05/28/24 0734 05/29/24 0718 05/30/24 0302 WBC 12.6* 10.6 9.7 RBC 3.25* 3.15* 2.82* HGB 9.1* 8.8* 7.8* HCT 32.1* 27.6* 25.2* MCV 98.8 87.6 89.4 RDW 12.8 12.9 13.1 PLT 189 197 176 BMP: Recent Labs 05/28/24 0734 05/29/24 0705/30/24 0302 NA 138 139 135* K 4.8 3.7 3.9 CL 112* 111* 107 CO2 16* 21 20 BUN 58* 52* 53* CREATININE 1.9* 2.0* 2.2* BNP: No results for input(s): BNP in the last 72 hours. PT/INR: No results for input(s): PROTIME , INR in the last 72 hours. APTT: No results for input(s): APTT in the last 72 hours. CARDIAC ENZYMES: No results for input(s): CKMB , CKMBINDEX , TROPONINI in the last 72 hours. Invalid input(s): CKTOTAL;3 FASTING LIPID PANEL:No results found for: CHOL , HDL , TRIG LIVER PROFILE: No results for input(s): AST , ALT , BILIDIR , BILITOT , ALKPHOS in the last 72 hours. Invalid input(s): ALB MICROBIOLOGY: Lab Results Component Value Date/Time CULTURE NO GROWTH 05/23/2024 11:26 PM Imaging: XR CERVICAL SPINE (2-3 VIEWS) Result Date: 05/28/2024 Postoperative changes in the lumbar spine. No evidence of complication. Spondylosis of the lumbar spine. XR LUMBAR SPINE (2-3 VIEWS) Result Date: 05/28/2024 Postoperative changes in the lumbar spine. No evidence of complication. Spondylosis of the lumbar spine. FLUORO FOR SURGICAL PROCEDURES Result Date: 05/27/[address] fluoroscopic images as above. See separate procedure report for more information. CT LUMBAR SPINE WO CONTRAST Result Date: 05/25/2024 Posterior fixation at L4-5 with associated laminectomy and hardware is intact. Potential minimal lucency developing adjacent to the transpedicular screws at the L5 level. Multilevel degenerative facet hypertrophy with bilateral bony foraminal narrowing at L5-S1. MRI CERVICAL SPINE WO CONTRAST Result Date: 05/24/2024 1. Motion limited evaluation. 2. Severe spinal canal stenosis at C3-4 and C4-5 with flattening of the spinal cord and abnormal bilateral paracentral cord T2 hyperintensity at the C4-5 level consistent with spondylotic myelomalacia, although a component of cord edema may be present. 3. Moderate spinal canal stenosis at C6-7. 4. Moderate and severe multilevel neural foraminal narrowing as detailed above. XR SPINE ENTIRE (2-3 VIEWS) Result Date: 05/24/2024 1. Mild levoscoliosis of the lower thoracic spine and mild dextroscoliosis of the lumbar spine. 2. Status post posterior fusion and discectomy at L4-5 without complication identified. MRI BRAIN WO CONTRAST Result Date: 05/24/2024 Chronic microvascular disease without acute intracranial abnormality. Chronic sinusitis of the leftmaxillary sinus. MRI LUMBAR SPINE WO CONTRAST Result Date: 05/24/2024 Multilevel degenerative change with canal stenosis at L3-4. Foraminal narrowing as described above.Posterior fixation and laminectomy at L4-5 without complication. 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 * Type 2 diabetes mellitus Was taking Lantus 10 units OD and Glipizide 10 mg OD Lantus 10 u twice daily High-dose sliding scale POCT checks pre meal QID Essential hypertension Hydralazine 50 mg TID CAD s/p PTCA RCA bare metal stent revision 2016, History of [place] Prior echo in 2020 shows EF 50-55% Aspirin 81 mg, Lipitor 20 mg nightly Carvedilol 25 mg BID Imdur 30 mg Isosorbide nitrate PRN Duplex scan of lower extremities negative for any obstruction Chronic kidney disease stage 3b GFR 28 mL/min Creatinine 2.6 Secondary to uncontrolled type 2 diabetes Degenerative disc disease L3-L4 canal stenosis S/p posterior fixation and laminectomy L4-L5 2022 S/p cervical spinal surgery in 1984 Gabapentin 300 mg TID Cyclobenzaprine 10 mg OD Cervical spinal stenosis MRI spine 05/24 showed stenosis at C3-C4 level with flattening of spinal cord and possible cord edema Injection Solu-Medrol 60 mg IV given Plan for cervical as well as lumbar spinal surgery per neurosurgery Diet: Diabetic diet DVT prophylaxis: Heparin subq Tammi Rincon MD PGY-1, Internal Medicine Resident [facility] 05/30/2024, 8:01 AM Associated attestation - Gerard Ramesh MD - 05/30/2024 2:33 PM EDT Attending Physician Statement I have discussed the care of Gage Lugo, including pertinent history and exam findings, with the resident. I have seen and examined the patient and the pablo elements of all parts of the encounter have been performed by me. I agree with the assessment, plan and orders as documented by the resident. (GC Modifier) He is optimized for hypertension and DM We will sign off . Please call us with any questions MD FAUSTINO Garcia Attending Physician Internal Medicine Residency Program, Nephrology [facility] 05/30/2024, 2:31 PM * Patricia Butler, SWEETIE - METHODS TIME ANALYST - 05/29/2024 5:09 PM EDT Images from the original note were not included. Resident Progress Note Date: 05/29/2024 Time: 5:10 PM Patient Name: Gage Lugo Patient : 1950 Room/Bed: 0544/0544-01 Allergies: Allergies Allergen Reactions Asa [Aspirin] Anaphylaxis and Swelling Can take ONE a day more than one causes the allergy Norvasc [Amlodipine] Angioedema Percocet [Oxycodone-Acetaminophen] Anaphylaxis Interval History: POD 3 s/p posterior cervical decompression/fusion C3-7. POD 1 Extension of posterior lumbar fusion to L3. No acute events overnight. Vitally stable. NIC drain x2 in place: back drain: 180 ml in 24 hours, cervical drain: 115 in 24 hours Monitor up trending creatinine. Current Medications: Scheduled Meds: insulin glargine 10 Units SubCUTAneous BID hydrALAZINE 100 mg Oral 3 times per day cetirizine 10 mg Oral BID sodium chloride flush 5-40 mL IntraVENous 2 times per day acetaminophen 650 mg Oral Q6H polyethylene glycol 17 g Oral Daily famotidine (PEPCID) injection 20 mg IntraVENous Daily Or famotidine 20 mg Oral Daily heparin (porcine) 5,000 Units SubCUTAneous 3 times per day cyclobenzaprine 10 mg Oral Nightly atorvastatin 20 mg Oral Nightly insulin lispro 0-16 Units SubCUTAneous TID WC insulin lispro 0-4 Units SubCUTAneous Nightly carvedilol 25 mg Oral BID WC isosorbide mononitrate 30 mg Oral Daily gabapentin 300 mg Oral BID sodium chloride flush 5-40 mL IntraVENous 2 times per day Continuous Infusions: sodium chloride dextrose sodium chloride Vitals: Patient Vitals for the past 8 hrs: BP Temp Temp src Pulse Resp 05/29/24 1600 -- 98.8 F (37.1 C) Oral -- -- 05/29/24 1200 122/60 98.9 F (37.2 C) Oral 86 19 05/29/24 0918 -- -- -- -- 19 Height and Weight Height: 165.1 cm (5' 5 ) Weight - Scale: 71.6 kg (157 lb 13.6 oz) Weight Method: Bed scale BSA (Calculated - sq m): 1.81 sq meters BMI (Calculated): 26.3 Body mass index is 26.27 kg/m . <16 Severe malnutrition 16-16.99 Moderate malnutrition 17-18.49 Mild malnutrition 18.5-24.9 Normal 25-29.9 Overweight (not obese) 30-34.9 Obese class 1 (Low Risk) 35-39.9 Obese class 2 (Moderate Risk) ?40 Obese class 3 (High Risk) Labs (last 48 hours): Recent Results (from the past 48 hour(s)) Calcium, Ionized Collection Time: 05/27/24 5:22 PM Result Value Ref Range Calcium, Ionized 1.21 1.13 - 1.33 mmol/L Lactic Acid Collection Time: 05/27/24 5:22 PM Result Value Ref Range Lactic Acid, Whole Blood 1.4 0.7 - 2.1 mmol/L OPEN HEART PANEL Collection Time: 05/27/24 5:22 PM Result Value Ref Range pH, Arterial 7.284 (L) 7.350 - 7.450 pCO2, Arterial 40.0 32 - 45 mmHg pO2, Arterial 183.0 (H) 75 - 95 mmHg HCO3, Arterial 18.4 (L) 22 - 27 mmol/L Negative Base Excess, Art 7.2 (H) 0.0 - 2.0 mmol/L O2 Sat, Arterial 98.7 94 - 100 % Carboxyhemoglobin 1.9 0 - 5 % Pt Temp 35.6 pH, Art, Temp Adj 7.304 (L) 7.350 - 7.450 pCO2, Art, Temp Adj 37.4 32 - 45 pO2, Art, Temp Adj 177.0 (H) 75 - 95 mmHg Lux Test INFORMATION NOT PROVIDED FIO2 50% Hemoglobin 9.1 (L) 13.0 - 17.0 gm/dL Hematocrit 28.3 (L) 40.7 - 50.3 % POC Glucose 184 (H) 75 - 110 mg/dL Chloride, Whole Blood 116 (H) 98 - 110 mmol/L Potassium, Whole Blood 4.5 3.6 - 5.0 mmol/L Sodium, Whole Blood 138 136 - 145 mmol/L POC Glucose Fingerstick Collection Time: 05/27/24 7:36 PM Result Value Ref Range POC Glucose 215 (H) 75 - 110 mg/dL POC Glucose Fingerstick Collection Time: 05/27/24 9:24 PM Result Value Ref Range POC Glucose 248 (H) 75 - 110 mg/dL Basic Metabolic Panel w/ Reflex to MG Collection Time: 05/28/24 7:34 AM Result Value Ref Range Sodium 138 136 - 145 mmol/L Potassium 4.8 3.7 - 5.3 mmol/L Chloride 112 (H) 98 - 107 mmol/L CO2 16 (L) 20 - 31 mmol/L Anion Gap 10 9 - 16 mmol/L Glucose 198 (H) 74 - 99 mg/dL BUN 58 (H) 8 - 23 mg/dL Creatinine 1.9 (H) 0.70 - 1.20 mg/dL Est, Glom Filt Rate 36 (L) >60 mL/min/1.73m2 Calcium 8.0 (L) 8.6 - 10.4 mg/dL CBC with Auto Differential Collection Time: 05/28/24 7:34 AM Result Value Ref Range WBC 12.6 (H) 3.5 - 11.3 k/uL RBC 3.25 (L) 4.21 - 5.77 m/uL Hemoglobin 9.1 (L) 13.0 - 17.0 g/dL Hematocrit 32.1 (L) 40.7 - 50.3 % MCV 98.8 82.6 - 102.9 fL MCH 28.0 25.2 - 33.5 pg MCHC 28.3 (L) 28.4 - 34.8 g/dL RDW 12.8 11.8 - 14.4 % Platelets 189 138 - 453 k/uL MPV 10.4 8.1 - 13.5 fL NRBC Automated 0.0 0.0 per 100 WBC Immature Granulocytes % 1 (H) 0 % Neutrophils % 81 (H) 36 - 65 % Lymphocytes % 8 (L) 24 - 43 % Monocytes % 10 3 - 12 % Eosinophils % 0 (L) 1 - 4 % Basophils % 0 0 - 2 % Immature Granulocytes Absolute 0.13 0.00 - 0.30 k/uL Neutrophils Absolute 10.20 (H) 1.50 - 8.10 k/uL Lymphocytes Absolute 1.01 (L) 1.10 - 3.70 k/uL Monocytes Absolute 1.26 (H) 0.10 - 1.20 k/uL Eosinophils Absolute 0.00 0.00 - 0.44 k/uL Basophils Absolute 0.00 0.00 - 0.20 k/uL Morphology HYPOCHROMIA PRESENT POC Glucose Fingerstick Collection Time: 05/28/24 8:11 AM Result Value Ref Range POC Glucose 184 (H) 75 - 110 mg/dL POC Glucose Fingerstick Collection Time: 05/28/24 11:26 AM Result Value Ref Range POC Glucose 192 (H) 75 - 110 mg/dL POC Glucose Fingerstick Collection Time: 05/28/24 4:27 PM Result Value Ref Range POC Glucose 192 (H) 75 - 110 mg/dL POC Glucose Fingerstick Collection Time: 05/28/24 8:00 PM Result Value Ref Range POC Glucose 164 (H) 75 - 110 mg/dL CBC Collection Time: 05/29/24 7:18 AM Result Value Ref Range WBC 10.6 3.5 - 11.3 k/uL RBC 3.15 (L) 4.21 - 5.77 m/uL Hemoglobin 8.8 (L) 13.0 - 17.0 g/dL Hematocrit 27.6 (L) 40.7 - 50.3 % MCV 87.6 82.6 - 102.9 fL MCH 27.9 25.2 - 33.5 pg MCHC 31.9 28.4 - 34.8 g/dL RDW 12.9 11.8 - 14.4 % Platelets 197 138 - 453 k/uL MPV 10.8 8.1 - 13.5 fL NRBC Automated 0.0 0.0 per 100 WBC Basic Metabolic Panel Collection Time: 05/29/24 7:18 AM Result Value Ref Range Sodium 139 136 - 145 mmol/L Potassium 3.7 3.7 - 5.3 mmol/L Chloride 111 (H) 98 - 107 mmol/L CO2 21 20 - 31 mmol/L Anion Gap 7 (L) 9 - 16 mmol/L Glucose 72 (L) 74 - 99 mg/dL BUN 52 (H) 8 - 23 mg/dL Creatinine 2.0 (H) 0.70 - 1.20 mg/dL Est, Glom Filt Rate 34 (L) >60 mL/min/1.73m2 Calcium 8.0 (L) 8.6 - 10.4 mg/dL POC Glucose Fingerstick Collection Time: 05/29/24 8:05 AM Result Value Ref Range POC Glucose 63 (L) 75 - 110 mg/dL POC Glucose Fingerstick Collection Time: 05/29/24 9:37 AM Result Value Ref Range POC Glucose 90 75 - 110 mg/dL POC Glucose Fingerstick Collection Time: 05/29/24 12:31 PM Result Value Ref Range POC Glucose 95 75 - 110 mg/dL POC Glucose Fingerstick Collection Time: 05/29/24 4:14 PM Result Value Ref Range POC Glucose 96 75 - 110 mg/dL RADIOLOGY: XR CERVICAL SPINE (2-3 VIEWS) Result Date: 05/28/2024 Postoperative changes in the lumbar spine. No evidence of complication. Spondylosis of the lumbar spine. XR LUMBAR SPINE (2-3 VIEWS) Result Date: 05/28/2024 Postoperative changes in the lumbar spine. No evidence of complication. Spondylosis of the lumbar spine. FLUORO FOR SURGICAL PROCEDURES Result Date: 05/27/[address] fluoroscopic images as above. See separate procedure report for more information. CT LUMBAR SPINE WO CONTRAST Result Date: 05/25/2024 Posterior fixation at L4-5 with associated laminectomy and hardware is intact. Potential minimal lucency developing adjacent to the transpedicular screws at the L5 level. Multilevel degenerative facet hypertrophy with bilateral bony foraminal narrowing at L5-S1. MRI CERVICAL SPINE WO CONTRAST Result Date: 05/24/2024 1. Motion limited evaluation. 2. Severe spinal canal stenosis at C3-4 and C4-5 with flattening of the spinal cord and abnormal bilateral paracentral cord T2 hyperintensity at the C4-5 level consistent with spondylotic myelomalacia, although a component of cord edema may be present. 3. Moderate spinal canal stenosis at C6-7. 4. Moderate and severe multilevel neural foraminal narrowing as detailed above. XR SPINE ENTIRE (2-3 VIEWS) Result Date: 05/24/2024 1. Mild levoscoliosis of the lower thoracic spine and mild dextroscoliosis of the lumbar spine. 2. Status post posterior fusion and discectomy at L4-5 without complication identified. MRI BRAIN WO CONTRAST Result Date: 05/24/2024 Chronic microvascular disease without acute intracranial abnormality. Chronic sinusitis of the leftmaxillary sinus. MRI LUMBAR SPINE WO CONTRAST Result Date: 05/24/2024 Multilevel degenerative change with canal stenosis at L3-4. Foraminal narrowing as described above.Posterior fixation and laminectomy at L4-5 without complication. Labs and imaging reviewed with Dr. Bridges NEUROLOGIC EXAMINATION GENERAL Appears comfortable and in no distress HEENT WNL MENTAL STATUS: Alert, oriented, no confusion, fluid speech, normal language, no aphasia or dysarthria CRANIAL NERVES: II - Visual ochoa intact to confrontation III,IV, - PERRL, EOMI, no ptosis V - intact facial sensation VII - Intact facial symmetry VIII - Intact hearing IX,X - Symmetrical palate XI - Symmetrical shoulder shrug XII - Midline tongue, no atrophy MOTOR FUNCTION: RUE: Significant for good strength of grade 5/5 in proximal and distal muscle groups LUE: Significant for good strength of grade 5/5 in proximal and distal muscle groups RLE: Significant for good strength of grade 5/5 in proximal and distal muscle groups LLE: Significant for good strength of grade 5/5 in proximal muscles Plantar flexion 5/5 Dorsiflexion 4/5 Normal bulk, normal tone and no involuntary movements, no tremor SENSORY FUNCTION: Intact sensation to touch in all extremities CEREBELLAR FUNCTION: No dysmetria or dysdiadochokinesia REFLEX FUNCTION: L. Biceps 2/4, R. Biceps 2/4 L. Patellar 2/4, R. Patellar 2/4 Negative babinski and negative larson's STATION and GAIT Not assessed PLAN: - Pain control - DVT prophylaxis - Continue NIC drains - PT/OT - Incentive spirometry - CBC and BMP daily Thank you for the consult, we will continue to follow with you. Please contact neurosurgery / neuro critical care with any changes. Patricia Butler, SWEETIE - METHODS TIME ANALYST 05/29/2024 5:10 PM * Tammi Rincon MD - 05/29/2024 10:22 AM EDT Images from the original note were not included. [facility] Internal Medicine Teaching Residency Program Inpatient Daily Progress Note Patient: Gage Lugo Date of : 1950 Acct: [id number] Room: 0544/0544-01 Admit date: 05/23/2024 Today's date: 05/29/24 Number of days in the hospital: 6 SUBJECTIVE CC: Pain (Bilat shoulders, back and bilat legs) Patient examined and reviewed at bedside: -S/p posterior cervical decompression fusion C3-C4. Extension of posterior lumbar fusion at L3 -Patient complained of tongue swelling overnight which could be likely due to steroid withdrawal orthe addition of Norvasc 5 mg. Denies any sob, breathing or swallowing difficulties with the tongue swelling. The patient did not describe any new onset rashes or dizziness. Started on cetrizine, solumedrol 80 one dose and iv benadryl to be added -Glucose little low this morning. On Lantus 10 units BID and sliding scale insulin -Continue same treatment for HTN -Recommend stopping fluids ROS: General ROS: Neck and back soreness Respiratory ROS: Completed and except as mentioned above were negative Cardiovascular ROS: Completed and except as mentioned above were negative Gastrointestinal ROS: Completed and except as mentioned above were negative Genito-Urinary ROS: Completed and except as mentioned above were negative Musculoskeletal ROS: Completed and except as mentioned above were negative Neurological ROS: Completed and except as mentioned above were negative BRIEF HISTORY The patient is a pleasant 74 y.o. male presents with a chief complaint of neurogenic right foot pain. Patient was admitted under neurosurgery service for surgical management of neuropathic pain. IM was consulted for the management of hypertension, type 2 diabetes mellitus, CKD stage III, chronic tobacco use. Last Echo EF of 50 to 55% in 2020 Last Cath 2006, CAD s/p PCI with 2 stents Repeat RCA stent 2016 Last lipid profile Cholesterol 119, HDL 27, TG 382, LDL 16 (10/2023) Last HbA1C 7.9% Hospital Course: The patient complains of right foot pain from [facility] which is sudden, episodic and intense. It is not related to position of movement of the foot and shoots up the leg all the way to the buttocks. The foot was not tender to touch however he had multiple episodes of this pain and was unable to bear weight on it. The patient also complained of bilateral upper extremity weakness particular ly in the shoulders. Patient had increased ESR and CRP on admission, his other labs were unremarkable. Decision was made to operate on the patient cervical as well as lumbar spine and get medical clearance. The patient uses 10 units of insulin glargine at home twice daily. He is also on glipizide for his blood glucose control. The patient uses CGM to monitor blood glucose levels and states that they fluctuate between 110 to 120 mg/dL. The patient is also on aspirin, Lipitor, Coreg, hydralazine. He is on nitrates as needed for cardiac chest pain. OBJECTIVE Vital Signs: BP 122/60 Pulse 86 Temp 98.9 F (37.2 C) (Oral) Resp 20 Ht 1.651 m (5' 5 ) Wt 71.6 kg (157lb 13.6 oz) SpO2 95% BMI 26.27 kg/m Temp (24hrs), Av.9 F (37.2 C), Min:98.4 F (36.9 C), Max:99.7 F (37.6 C) In: - Out: 1994 [Urine:1700; Drains:295] PHYSICAL EXAMINATION: Constitutional: This is a well developed, well nourished, 25-29.9 - Overweight 62 y.o. year old male who is alert, oriented, cooperative and in no apparent distress. Head:normocephalic and atraumatic. Post-op drain noted in cervical and lower back region. Head and Neck: Tongue visible swollen, obstructing palatal view. No redness, fluctuance or obvious lesions noted on the tongue Respiratory: Chest was symmetrical without dullness to percussion. Breath sounds bilaterally were clear to auscultation. There were no wheezes, rhonchi or rales. There is no intercostal retraction oruse of accessory muscles. No egophony noted. Cardiovascular: Regular without murmur, clicks, gallops or rubs. Abdomen: Slightly rounded and soft without organomegaly. No rebound, rigidity or guarding was appreciated. Hypoactive bowel sounds Musculoskeletal: Normal curvature of the spine. No gross muscle weakness. Extremities: No lower extremity edema, ulcerations, tenderness, varicosities or erythema. Muscle size, tone and strength are normal. No involuntary movements are noted. Medications: Scheduled Medications: insulin glargine 10 Units SubCUTAneous BID methylPREDNISolone sodium succ (SOLU-MEDROL) 80 mg in sterile water 2 mL injection 80 mg IntraVENous Once hydrALAZINE 100 mg Oral 3 times per day cetirizine 10 mg Oral BID sodium chloride flush 5-40 mL IntraVENous 2 times per day acetaminophen 650 mg Oral Q6H polyethylene glycol 17 g Oral Daily famotidine (PEPCID) injection 20 mg IntraVENous Daily Or famotidine 20 mg Oral Daily heparin (porcine) 5,000 Units SubCUTAneous 3 times per day cyclobenzaprine 10 mg Oral Nightly atorvastatin 20 mg Oral Nightly insulin lispro 0-16 Units SubCUTAneous TID WC insulin lispro 0-4 Units SubCUTAneous Nightly carvedilol 25 mg Oral BID WC isosorbide mononitrate 30 mg Oral Daily gabapentin 300 mg Oral BID sodium chloride flush 5-40 mL IntraVENous 2 times per day Continuous Infusions: sodium chloride 125 mL/hr at 05/28/24 0506 sodium chloride dextrose sodium chloride PRN Medicationssodium chloride flush, 5-40 mL, PRN sodium chloride, , PRN HYDROmorphone, 0.5 mg, Q3H PRN Or HYDROmorphone, 1 mg, Q3H PRN bisacodyl, 10 mg, Daily PRN cyclobenzaprine, 10 mg, TID PRN HYDROcodone 5 mg - acetaminophen, 1 tablet, Q4H PRN HYDROcodone 5 mg - acetaminophen, 2 tablet, Q4H PRN senna, 1 tablet, Daily PRN metoclopramide, 10 mg, Q6H PRN glucose, 4 tablet, PRN dextrose bolus, 125 mL, PRN Or dextrose bolus, 250 mL, PRN glucagon (rDNA), 1 mg, PRN dextrose, , Continuous PRN labetalol, 10 mg, Q6H PRN sodium chloride flush, 5-40 mL, PRN sodium chloride, , PRN LORazepam, 4 mg, Q5 Min PRN ondansetron, 4 mg, Q8H PRN Or ondansetron, 4 mg, Q6H PRN Diagnostic Labs: CBC: Recent Labs 05/27/24 1722 05/28/24 0734 05/29/24 0718 WBC -- 12.6* 10.6 RBC -- 3.25* 3.15* HGB 9.1* 9.1* 8.8* HCT 28.3* 32.1* 27.6* MCV -- 98.8 87.6 RDW -- 12.8 12.9 PLT -- 189 197 BMP: Recent Labs 05/27/24 0552 05/27/24 1722 05/28/24 0734 05/29/24 0718 NA 139 138 138 139 K 4.0 4.5 4.8 3.7 CL 110* -- 112* 111* CO2 20 -- 16* 21 BUN 58* -- 58* 52* CREATININE 1.9* -- 1.9* 2.0* BNP: No results for input(s): BNP in the last 72 hours. PT/INR: No results for input(s): PROTIME , INR in the last 72 hours. APTT: No results for input(s): APTT in the last 72 hours. CARDIAC ENZYMES: No results for input(s): CKMB , CKMBINDEX , TROPONINI in the last 72 hours. Invalid input(s): CKTOTAL;3 FASTING LIPID PANEL:No results found for: CHOL , HDL , TRIG LIVER PROFILE: Recent Labs 05/27/24 0552 AST 28 ALT 29 BILITOT 0.2 ALKPHOS 81 MICROBIOLOGY: Lab Results Component Value Date/Time CULTURE NO GROWTH 05/23/2024 11:26 PM Imaging: XR CERVICAL SPINE (2-3 VIEWS) Result Date: 05/28/2024 Postoperative changes in the lumbar spine. No evidence of complication. Spondylosis of the lumbar spine. XR LUMBAR SPINE (2-3 VIEWS) Result Date: 05/28/2024 Postoperative changes in the lumbar spine. No evidence of complication. Spondylosis of the lumbar spine. FLUORO FOR SURGICAL PROCEDURES Result Date: 05/27/[address] fluoroscopic images as above. See separate procedure report for more information. CT LUMBAR SPINE WO CONTRAST Result Date: 05/25/2024 Posterior fixation at L4-5 with associated laminectomy and hardware is intact. Potential minimal lucency developing adjacent to the transpedicular screws at the L5 level. Multilevel degenerative facet hypertrophy with bilateral bony foraminal narrowing at L5-S1. MRI CERVICAL SPINE WO CONTRAST Result Date: 05/24/2024 1. Motion limited evaluation. 2. Severe spinal canal stenosis at C3-4 and C4-5 with flattening of the spinal cord and abnormal bilateral paracentral cord T2 hyperintensity at the C4-5 level consistent with spondylotic myelomalacia, although a component of cord edema may be present. 3. Moderate spinal canal stenosis at C6-7. 4. Moderate and severe multilevel neural foraminal narrowing as detailed above. XR SPINE ENTIRE (2-3 VIEWS) Result Date: 05/24/2024 1. Mild levoscoliosis of the lower thoracic spine and mild dextroscoliosis of the lumbar spine. 2. Status post posterior fusion and discectomy at L4-5 without complication identified. MRI BRAIN WO CONTRAST Result Date: 05/24/2024 Chronic microvascular disease without acute intracranial abnormality. Chronic sinusitis of the leftmaxillary sinus. MRI LUMBAR SPINE WO CONTRAST Result Date: 05/24/2024 Multilevel degenerative change with canal stenosis at L3-4. Foraminal narrowing as described above.Posterior fixation and laminectomy at L4-5 without complication. 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 * Type 2 diabetes mellitus Serum glucose is 300 to 350 mg/dl Was taking Lantus 10 units OD and Glipizide 10 mg OD [id number] twice daily High-dose sliding scale POCT checks pre meal QID Essential hypertension Hydralazine 50 mg TID CAD s/p PTCA RCA bare metal stent revision 2016, History of NM Prior echo in 2020 shows EF 50-55% Aspirin 81 mg, Lipitor 20 mg nightly Carvedilol 25 mg BID Imdur 30 mg Isosorbide nitrate PRN Duplex scan of lower extremities negative for any obstruction Chronic kidney disease stage 3b GFR 28 mL/min Creatinine 2.6 Secondary to uncontrolled type 2 diabetes Degenerative disc disease L3-L4 canal stenosis S/p posterior fixation and laminectomy L4-L5 2022 S/p cervical spinal surgery in 1984 Gabapentin 300 mg TID Cyclobenzaprine 10 mg OD Cervical spinal stenosis MRI spine 05/24 showed stenosis at C3-C4 level with flattening of spinal cord and possible cord edema Injection Solu-Medrol 60 mg IV given Plan for cervical as well as lumbar spinal surgery per neurosurgery Diet: Diabetic diet DVT prophylaxis: Heparin subq Tammi Rincon MD PGY-1, Internal Medicine Resident [facility] [place], [place] 05/29/2024, 10:22 AM Associated attestation - Gerard Ramesh MD - 05/29/2024 6:58 PM EDT Attending Physician Statement I have discussed the care of Gage Lugo including pertinent history and exam findings, withthe resident. I have reviewed the pablo elements of all parts of the encounter with the resident. I agree with the assessment, plan and orders as documented by the resident. (GE Modifier) MD FAUSTINO Garcia Attending Physician, [facility] Faculty, Internal Medicine Residency Program [facility] 05/29/2024, 6:58 PM * Megan Sotelo APRN - METHODS TIME ANALYST - 05/29/2024 8:53 AM EDT Images from the original note were not included. Marija Copy Worker Progress Note Date: 05/29/2024 Patient name: Gage Lugo Date of admission: 05/23/2024 6:12 PM Date of : 1950 PCP: Lolita Adorno DO Reason for Admission: Neurogenic pain of right lower extremity [M79.2] Pain in right lower leg [M79.661] Acute pain of both shoulders [M25.511, M25.512] Subjective: Clinical Changes /Abnormalities:Patient seen and examined. Denies chest pain or shortness of breathPt continues to have tongue swelling secondary to norvasc given yesterday . Tele/vitals/labs reviewed . Medications: Scheduled Meds: insulin glargine 10 Units SubCUTAneous BID methylPREDNISolone sodium (SOLU-MEDROL) 80 mg in sodium chloride 0.9 % 250 mL IVPB 80 mg IntraVENous Once hydrALAZINE 100 mg Oral 3 times per day cetirizine 10 mg Oral BID sodium chloride flush 5-40 mL IntraVENous 2 times per day acetaminophen 650 mg Oral Q6H polyethylene glycol 17 g Oral Daily famotidine (PEPCID) injection 20 mg IntraVENous Daily Or famotidine 20 mg Oral Daily heparin (porcine) 5,000 Units SubCUTAneous 3 times per day cyclobenzaprine 10 mg Oral Nightly atorvastatin 20 mg Oral Nightly insulin lispro 0-16 Units SubCUTAneous TID WC insulin lispro 0-4 Units SubCUTAneous Nightly carvedilol 25 mg Oral BID WC isosorbide mononitrate 30 mg Oral Daily gabapentin 300 mg Oral BID sodium chloride flush 5-40 mL IntraVENous 2 times per day Continuous Infusions: sodium chloride 125 mL/hr at 05/28/24 0506 sodium chloride dextrose sodium chloride CBC: Recent Labs 05/27/24 1722 05/28/24 0734 05/29/24 0718 WBC -- 12.6* 10.6 HGB 9.1* 9.1* 8.8* PLT -- 189 197 BMP: Recent Labs 05/27/24 0552 05/27/24 1722 05/28/24 0734 05/29/24 0718 NA 139 138 138 139 K 4.0 4.5 4.8 3.7 CL 110* -- 112* 111* CO2 20 -- 16* 21 BUN 58* -- 58* 52* CREATININE 1.9* -- 1.9* 2.0* GLUCOSE 197* -- 198* 72* Hepatic: Recent Labs 05/27/24 0552 AST 28 ALT 29 BILITOT 0.2 ALKPHOS 81 Troponin: No results for input(s): TROPHS in the last 72 hours. BNP: No results for input(s): BNP in the last 72 hours. Lipids: No results for input(s): CHOL , HDL in the last 72 hours. Invalid input(s): LDLCALCU INR: No results for input(s): INR in the last 72 hours. DATA: EKG: Yesterday Sinus rhythm with frequent Premature ventricular complexes in a pattern of bigeminy ECHO: Ordered yesterday. Not yet obtained Stress Test: reviewed. 09/25/20 Abnormal Lexiscan Myoview cardiac perfusion stress test. No myocardial ischemia by perfusion imaging. Moderate-sized inferior wall myocardial infarction by perfusion imaging. Abnormal left ventricular systolic function. Left ventricular ejection fraction 52 %. Inferior wall hypokinesis is noted When compared to study from another lab from 2019 there has been no interval changes. Cardiac Angiography: bare metal stent in the right coronary artery in 2006 with repeat angioplasty of the RCA 2016. Nuclear stress test September 2020 revealed The ASCVD Risk score (Amanda DK, et al., 2019) failed to calculate for the following reasons: Cannot find a previous HDL lab Cannot find a previous total cholesterol lab Objective: Vitals: BP 122/60 Pulse 86 Temp 98.9 F (37.2 C) (Oral) Resp 20 Ht 1.651 m (5' 5 ) Wt 71.6kg (157 lb 13.6 oz) SpO2 95% BMI 26.27 kg/m General appearance: alert and cooperative with exam HEENT: Head: Normocephalic, no lesions, without obvious abnormality. 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 Norvasc stopped. Continue coreg and imdur. 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 Florian on discharge [place] [employer] [facility]. [phone] * Herminio Hernandez MD - 05/29/2024 8:29 AM EDT Images from the original note were not included. [facility] Neurology IN-PATIENT SERVICE [facility] Progress Note Date: 05/29/2024 Patient name: Gage Lugo Date of admission: 05/23/2024 6:12 PM Account: [id number] Date of : 1950 PCP: Lolita Adorno DO Room: 0544/0544-01 Code Status: Full Code Chief Complaint: Chief Complaint Patient presents with Pain Bilat shoulders, back and bilat legs Interval hx: The patient was seen and examined at bedside. Is vitally stable, alert and oriented. Interval development of angioedema after the start of Norvasc. Brief History of Present Illness: The patient is a 74 y.o. / male who presents with Pain in the Bilateral shoulders, back and bilateral legs. He has a past medical history significant for CAD s/p PTCA, type 2 diabetesmellitus, CKD stage III, HTN, HLD and is a current smoker. He initially presented to the ED with a chief complaint of pain, worse in his right leg with inability to bear weight on it. Patient states this pain is a radicular pain with movement that starts in his foot and shoots up the back of the leg into the buttocks and lower back. The pain occurred all of a sudden on 05/23 when he woke up and isonly present with movement or touch/pressure on the extremity. It is a sharp 10/10 pain when it does occur. In addition to that, patient is also complaining of pain in the bilateral shoulders that prevents him from raising either arm above 90 degrees. He recently went to [facility] where initial workup was negative except for elevated ESR and CRP. Per the patient, he underwent a lumbar disc surgery L4-L5 with cage placement in 2022 for left footdrop and left leg abnormal sensation. Since the procedure, the weakness has improved but is still present and had increased sensation to touch but still feels like his left foot is always cold. Additionally he had a cervical fusion around ~1984. On presentation, his total CK levels were 31 and myoglobin 65, CRP was elevated at 124, ESR was elevated at 49 and Aldolase was 2.9. His CBC showed hemoglobin 11.0, hematocrit 33.8, WBC 12.5 and platelet count of 290. MRI cervical on 05/24/24 shows stenosis of C3-C5 with T2 hyperintensity at C4-C5 and MRI lumbar shows worse stenosis of L3-L4. Patient taken to the OR on 05/27/2024 for C3-C7 PCDF andextension of the previous lumbar fusion to L3. Past Medical History: Past Medical History: Diagnosis Date CAD (coronary artery disease) stents x2 from multiple angiograms Diabetes mellitus (HCC) Hyperlipidemia Hypertension Past Surgical History: Past Surgical History: Procedure Laterality Date CARDIAC CATHETERIZATION ', , CERVICAL FUSION with collar bone revision 1983 CERVICAL FUSION N/A 05/27/2024 POSTERIOR CERVICAL DECOMPRESSION FUSION CERVICAL THREE THROUGH SEVEN performed by Edin Brdiges DO at [facility] OR CERVICAL SPINE SURGERY 05/27/2024 POSTERIOR CERVICAL DECOMPRESSION FUSION CERVICAL THREE THROUGH SEVEN+EXTENSION OF POSTERIOR LUMBAR FUSION TO LUMBAR THREE LUMBAR DISC SURGERY cage placed 2022 LUMBAR FUSION N/A 05/27/2024 EXTENSION OF POSTERIOR LUMBAR FUSION TO LUMBAR THREE performed by Edin Bridges DO at [facility] OR Medications Prior to Admission: Prior to Admission medications Medication Sig Start Date End Date Taking? Authorizing Provider vitamin B-12 (CYANOCOBALAMIN) 1000 MCG tablet Take 1 tablet by mouth daily Yes Mark Ledezma MD insulin glargine (LANTUS) 100 UNIT/ML injection vial Inject 10 Units into the skin 2 times daily Yes Mark Ledezma MD Multiple Vitamins-Minerals (THERAPEUTIC MULTIVITAMIN-MINERALS) tablet Take 1 tablet by mouth daily Yes Mark Ledezma MD aspirin 81 MG chewable tablet Take 1 tablet by mouth daily Yes Mark Ledezma MD atorvastatin (LIPITOR) 20 MG tablet Take 1 tablet by mouth nightly Yes Mark Ledezma MD carvedilol (COREG) 25 MG tablet Take 1 tablet by mouth 2 times daily Yes Mark Ledezma MD cyclobenzaprine (FLEXERIL) 10 MG tablet Take 1 tablet by mouth at bedtime Yes Mark Ledezma MD glipiZIDE (GLUCOTROL) 10 MG tablet Take 1 tablet by mouth daily Yes Mark Leedzma MD hydrALAZINE (APRESOLINE) 50 MG tablet Take 1.5 tablets by mouth 2 times daily Yes Mark Ledezma MD isosorbide mononitrate (IMDUR) 30 MG extended release tablet Take 1 tablet by mouth daily Yes Mark Ledezma MD ferrous sulfate (IRON 325) 325 (65 Fe) MG tablet Take 1 tablet by mouth daily Mark Ledezma MD nitroGLYCERIN (NITROSTAT) 0.[address] 1 tablet under the tongue every 5 minutes as needed for Chest pain up to max of 3 total doses. If no relief after 1 dose, call 911. ProviderMark MD Allergies: Asa [aspirin] and Percocet [oxycodone-acetaminophen] Social History: Tobacco: reports that he has been smoking cigarettes. He has never used smokeless tobacco. Alcohol: reports no history of alcohol use. Drug Use: reports no history of drug use. Family History: History reviewed. No pertinent family history. Review of Systems: Review of Systems Constitutional: Negative for chills, diaphoresis, fatigue and fever. HENT: Negative for hearing loss and tinnitus. Eyes: Negative for visual disturbance. Respiratory: Negative for cough, shortness of breath and wheezing. Cardiovascular: Negative for chest pain and palpitations. Gastrointestinal: Negative for abdominal pain, constipation, diarrhea, nausea and vomiting. Musculoskeletal: Positive for neck pain and neck stiffness. Negative for myalgias. Minimal neck pain from surgery Neurological: Positive for weakness. Negative for dizziness, light-headedness, numbness and headaches. Chronic left foot weakness Physical Exam: BP 122/60 Pulse 86 Temp 98.9 F (37.2 C) (Oral) Resp 20 Ht 1.651 m (5' 5 ) Wt 71.6 kg (157lb 13.6 oz) SpO2 95% BMI 26.27 kg/m Temp (24hrs), Av.9 F (37.2 C), Min:98.4 F (36.9 C), Max:99.7 F (37.6 C) Recent Labs 05/28/24 1126 05/28/24 1627 05/28/24199905/29/24 0805 POCGLU 192* 192* 164* 63* Intake/Output Summary (Last 24 hours) at 05/29/2024 0829 Last data filed at 05/28/20242001 Gross per 24 hour Intake -- Output 1550 ml Net -1550 ml Neurologic Exam GENERAL Appears comfortable and in no distress HEENT NC/ AT. Significant tongue swelling MENTAL STATUS: Alert, oriented, no confusion, fluid speech, normal language. Dysarthric CRANIAL NERVES: II - Visual ochoa intact to confrontation III,IV, - PERRL, EOMI, no ptosis V - intact facial sensation VII - Intact facial symmetry VIII - Intact hearing IX,X - Symmetrical palate XI - Symmetrical shoulder shrug XII - Midline tongue, no atrophy MOTOR FUNCTION: RUE: Significant for good strength of grade 5/5 in proximal and distal muscle groups LUE: Significant for good strength of grade 5/5 in proximal and distal muscle groups RLE: Significant for good strength of grade 5/5 in proximal and distal muscle groups LLE: Significant for good strength of grade 5/5 in proximal muscles Plantar flexion 5/5 Dorsiflexion 4/5 Normal bulk, normal tone and no involuntary movements, no tremor SENSORY FUNCTION: Intact sensation to touch in all extremities CEREBELLAR FUNCTION: No dysmetria or dysdiadochokinesia REFLEX FUNCTION: L. Biceps 2/4, R. Biceps 2/4 L. Patellar 2/4, R. Patellar 2/4 Negative babinski and negative larson's STATION and GAIT Not assessed Investigations: Laboratory Testing: Recent Results (from the past 24 hour(s)) POC Glucose Fingerstick Collection Time: 05/28/24 11:26 AM Result Value Ref Range POC Glucose 192 (H) 75 - 110 mg/dL POC Glucose Fingerstick Collection Time: 05/28/24 4:27 PM Result Value Ref Range POC Glucose 192 (H) 75 - 110 mg/dL POC Glucose Fingerstick Collection Time: 05/28/24 8:00 PM Result Value Ref Range POC Glucose 164 (H) 75 - 110 mg/dL CBC Collection Time: 05/29/24 7:18 AM Result Value Ref Range WBC 10.6 3.5 - 11.3 k/uL RBC 3.15 (L) 4.21 - 5.77 m/uL Hemoglobin 8.8 (L) 13.0 - 17.0 g/dL Hematocrit 27.6 (L) 40.7 - 50.3 % MCV 87.6 82.6 - 102.9 fL MCH 27.9 25.2 - 33.5 pg MCHC 31.9 28.4 - 34.8 g/dL RDW 12.9 11.8 - 14.4 % Platelets 197 138 - 453 k/uL MPV 10.8 8.1 - 13.5 fL NRBC Automated 0.0 0.0 per 100 WBC Basic Metabolic Panel Collection Time: 05/29/24 7:18 AM Result Value Ref Range Sodium 139 136 - 145 mmol/L Potassium 3.7 3.7 - 5.3 mmol/L Chloride 111 (H) 98 - 107 mmol/L CO2 21 20 - 31 mmol/L Anion Gap 7 (L) 9 - 16 mmol/L Glucose 72 (L) 74 - 99 mg/dL BUN 52 (H) 8 - 23 mg/dL Creatinine 2.0 (H) 0.70 - 1.20 mg/dL Est, Glom Filt Rate 34 (L) >60 mL/min/1.73m2 Calcium 8.0 (L) 8.6 - 10.4 mg/dL POC Glucose Fingerstick Collection Time: 05/29/24 8:05 AM Result Value Ref Range POC Glucose 63 (L) 75 - 110 mg/dL Recent Labs 05/29/24 0718 WBC 10.6 RBC 3.15* HGB 8.8* HCT 27.6* MCV 87.6 MCH 27.9 MCHC 31.9 RDW 12.9 PLT 197 MPV 10.8 Recent Labs 05/27/24 0552 05/27/24 1722 05/29/24 0718 NA 139 < > 139 K 4.0 < > 3.7 CL 110* < > 111* CO2 20 < > 21 BUN 58* < > 52* CREATININE 1.9* < > 2.0* GLUCOSE 197* < > 72* CALCIUM 8.5* < > 8.0* BILITOT 0.2 -- -- ALKPHOS 81 -- -- AST 28 -- -- ALT 29 -- -- < > = values in this interval not displayed. Hemoglobin A1C Date Value Ref Range Status 05/26/2024 7.4 (H) 4.0 - 6.0 % Final Imaging: FLUORO FOR SURGICAL PROCEDURES Result Date: 05/27/2024 EXAMINATION: SPOT FLUOROSCOPIC IMAGES 05/27/2024 5:49 pm TECHNIQUE: CT fluoroscopy was provided by the radiology department for procedure. Radiologist was not present during examination. FLUOROSCOPY DOSE AND TYPE: 27.5 mGy. COMPARISON: None HISTORY: ORDERING SYSTEM PROVIDED HISTORY: POSTERIOR CERVICAL DECOMPRESSION FUSION CERVICAL THREE THROUGH SEVEN - O ARM TECHNOLOGIST PROVIDED HISTORY: POSTERIOR CERVICAL DECOMPRESSION FUSION CERVICAL THREE THROUGH SEVEN - O ARM Intraprocedural imaging. FINDINGS: Intraoperative CT fluoroscopic images are provided for review. The images demonstrate a large surgical defect in the soft tissues posterior to the lower lumbar spine. Bilateral pedicle screws are i n place at L3 and appear to be appropriately positioned. Status post interval explantation of the previously identified pedicle screws and vertical stabilization rods at L4-5. Status post L4-5 discectomy. A surgical wire is present in the posterior aspect of the central canal at the L3-4 interspaceand L4 levels. No fracture or other acute osseous abnormality identified. Intraprocedural CT fluoroscopic images as above. See separate procedure report for more information. Echo (TTE) complete (PRN contrast/bubble/strain/3D) Result Date: 05/26/2024 Left Ventricle: Mildly reduced left ventricular systolic function with a visually estimated EF of 45 - 50%. Left ventricle size is normal. Increased wall thickness. Findings consistent with mild concentric hypertrophy. Normal wall motion. Normal diastolic function. Aortic Valve: Trileaflet valve. Mitral Valve: Mildly thickened leaflets. Moderate regurgitation. MR PISA Radius: 0.8 cm, MR ERO: 0.21cm2, MR Volume: 41 mls. Mild stenosis noted. Image quality is adequate. CT LUMBAR SPINE WO CONTRAST Result Date: 05/25/2024 EXAMINATION: CT OF THE LUMBAR SPINE WITHOUT CONTRAST 05/25/2024 TECHNIQUE: CT of the lumbar spine was performed without the administration of intravenous contrast. Multiplanar reformatted images are provided for review. Adjustment of mA and/or kV according to patient size was utilized. Automated exposure control, iterative reconstruction, and/or weight based adjustment of the mA/kV was utilized toreduce the radiation dose to as low as reasonably achievable. COMPARISON: None HISTORY: ORDERING SYSTEM PROVIDED HISTORY: eval hardware TECHNOLOGIST PROVIDED HISTORY: eval hardware Reason for Exam: PAIN EVAL HARDWARE FINDINGS: BONES/ALIGNMENT: The vertebral body heights are maintained. There is posterior hardware fixation at L4-5 with associated laminectomy. The hardware is intact. There may be minimal lucency developing adjacent to the transpedicular screws at the L5 level. There is no spondylolisthesis. DEGENERATIVE CHANGES: The remaining disc spaces are maintained. There is mild multileveldegenerative facet hypertrophy. There is no significant bony canal stenosis. There is a degree of bilateral bony foraminal narrowing at L5-S1. SOFT TISSUES/RETROPERITONEUM: No paraspinal mass is seen. Posterior fixation at L4-5 with associated laminectomy and hardware is intact. Potential minimal lucency developing adjacent to the transpedicular screws at the L5 level. Multilevel degenerative facet hypertrophy with bilateral bony foraminal narrowing at L5-S1. MRI CERVICAL SPINE WO CONTRAST Result Date: 05/24/2024 EXAMINATION: MRI OF THE CERVICAL SPINE WITHOUT CONTRAST 05/24/2024 10:56 pm TECHNIQUE: Multiplanar multisequence MRI of the cervical spine was performed without the administration of intravenous contrast. COMPARISON: None. HISTORY: ORDERING SYSTEM PROVIDED HISTORY: assess for stenosis TECHNOLOGIST PROVIDED HISTORY: assess for stenosis Reason for Exam: assess for stenosis FINDINGS: Motion limited evaluation. BONES/ALIGNMENT: Vertebral heights are maintained. There is straightening of the cervicallordosis without spondylolisthesis. Edematous degenerative changes are present at C6-7. SPINAL CORD: Abnormal bilateral paracentral spinal cord T2 hyperintensity at the C4-5 level. No mass or abnormal fluid collection within the spinal canal. SOFT TISSUES: Paraspinal soft tissues are unremarkable. C2-C3: Disc height and signal maintained. No significant neural foraminal narrowing or spinal canal stenosis. C3-C4: Mild disc height loss and desiccation. Severe bilateral neural foraminal narrowing s econdary to uncovertebral hypertrophy. Severe spinal canal stenosis secondary to disc bulge and left posterior paracentral disc protrusion with flattening of the spinal cord. C4-C5: Mild disc height loss and desiccation. Severe bilateral neural foraminal narrowing secondary to uncovertebral hypertrophy. Severe spinal canal stenosis secondary to disc bulge with flattening of the spinal cord. C5-C6: Mild disc height loss and desiccation. Severe left and moderate right neural foraminal narrowing secondary to uncovertebral hypertrophy. Mild spinal canal stenosis secondary to disc bulge. C6-C7: Severe disc height loss and desiccation. Severe bilateral neural foraminal narrowing secondary to uncov ertebral hypertrophy. Moderate spinal canal stenosis secondary to disc bulge and ligamentum flavum hypertrophy. C7-T1: Mild disc height loss and desiccation. Mild left neural foraminal narrowing secondary to uncovertebral and facet hypertrophy. No right neural foraminal narrowing. Mild spinal canalstenosis secondary to disc bulge. 1. Motion limited evaluation. 2. Severe spinal canal stenosis at C3-4 and C4-5 with flattening of the spinal cord and abnormal bilateral paracentral cord T2 hyperintensity at the C4-5 level consistent with spondylotic myelomalacia, although a component of cord edema may be present. 3. Moderate spinal canal stenosis at C6-7. 4. Moderate and severe multilevel neural foraminal narrowing as detailed above. Vascular duplex lower extremity arteries right Result Date: 05/24/2024 Patent arteries of the right lower extremity with no evidence of significant stenosis. Vascular duplex lower extremity venous right Result Date: 05/24/2024 No evidence of deep vein or superficial vein thrombosis in the right lower extremity. XR SPINE ENTIRE (2-3 VIEWS) Result Date: 05/24/2024 EXAMINATION: TWO XRAY VIEWS SCOLIOSIS SERIES 05/24/2024 6:50 pm COMPARISON: MRI lumbar spine 05/24/2024. HISTORY: ORDERING SYSTEM PROVIDED HISTORY: standing Ap and lateral full spine -- C2 to pelvix & include both femoral heads TECHNOLOGIST PROVIDED HISTORY: standing Ap and lateral full spine --C2 to pelvix & include both femoral heads FINDINGS: Status post posterior fusion and discectomyat L4-5 without complication identified. Mild levoscoliosis of the lower thoracic spine with a Cobbangle of approximately 6 degrees. Mild dextroscoliosis of the lumbar spine with a Raza angle approximately 8 degrees. Normal alignment is otherwise maintained. The vertebral body heights are preserved. No fracture or other acute osseous abnormality identified. Mild multilevel degenerative disc disease throughout the thoracic and lumbar spine. The bilateral sacroiliac joints are intact. The bilateral hips are grossly unremarkable. The soft tissues are unremarkable. 1. Mild levoscoliosis of the lower thoracic spine and mild dextroscoliosis of the lumbar spine. 2. Status post posterior fusion and discectomy at L4-5 without complication identified. MRI BRAIN WO CONTRAST Result Date: 05/24/2024 EXAMINATION: MRI OF THE BRAIN WITHOUT CONTRAST 05/24/2024 3:24 pm TECHNIQUE: Multiplanar multisequence MRI of the brain was performed without the administration of intravenous contrast. COMPARISON: None. HISTORY: ORDERING SYSTEM PROVIDED HISTORY: Right leg weakness TECHNOLOGIST PROVIDED HISTORY: Right leg weakness What is the sedation requirement?->None Reason for Exam: Right leg weakness FINDINGS: INTRACRANIAL STRUCTURES/VENTRICLES: The sellar and suprasellar structures, optic chiasm, corpuscallosum, pineal gland, tectum, and midline brainstem structures are unremarkable. The craniocervical junction is unremarkable. There is no acute hemorrhage, mass effect, or midline shift. There is satisfactory overall bautista-white matter differentiation. There is chronic microvascular disease. The ventricular structures are symmetric and unremarkable. The infratentorial structures including the cerebellopontine angles and internal auditory canals are unremarkable. There is no abnormal restricteddiffusion. There is no abnormal blooming artifact on susceptibility weighted imaging. ORBITS: The visualized portion of the orbits demonstrate no acute abnormality. SINUSES: There is opacification ofthe left maxillary sinus likely related to chronic sinusitis. The mastoid air cells are normally aerated. BONES/SOFT TISSUES: The bone marrow signal intensity appears normal. The soft tissues demonstrate no acute abnormality. Chronic microvascular disease without acute intracranial abnormality. Chronic sinusitis of the leftmaxillary sinus. MRI LUMBAR SPINE WO CONTRAST Result Date: 05/24/2024 EXAMINATION: MRI OF THE LUMBAR SPINE WITHOUT CONTRAST, 05/24/2024 3:24 pm TECHNIQUE: Multiplanar multisequence MRI of the lumbar spine was performed without the administration of intravenous contrast.COMPARISON: None. HISTORY: ORDERING SYSTEM PROVIDED HISTORY: acute onset RLE severe, radiating pain/ allodynia TECHNOLOGIST PROVIDED HISTORY: acute onset RLE severe, radiating pain / allodynia What is the sedation requirement?->None Reason for Exam: acute onset RLE severe, radiating pain / allodynia FINDINGS: BONES/ALIGNMENT: The vertebral body heights are maintained. There is age-appropriatebone marrow signal. There is posterior fixation at L4-5 without complication. There is multilevel de generative disc disease at the remaining levels with loss of disc signal. There is no spondylolisthesis. SPINAL CORD: The conus terminates normally. SOFT TISSUES: No paraspinal mass identified. L1-L2: There is a circumferential disc bulge with facet hypertrophy. There is no canal stenosis or foraminal narrowing. L2-L3: There is a circumferential disc bulge with facet and ligamentous hypertrophy. There is no canal stenosis or foraminal narrowing. L3-L4: There is a circumferential disc bulge withfacet and ligamentous hypertrophy. There is canal stenosis measuring 6 mm in AP dimension. There isnarrowing of the lateral recesses. There is [id number] left and moderate right foraminal narrowing. L4-L5: There is a circumferential disc bulge with posterior laminectomy. There is no canal stenosis. There is moderate foraminal narrowing. L5-S1: There is a circumferential disc bulge with facet hypertrophy. There is no canal stenosis. There is moderate to severe left and severe right foraminal narrowing. Multilevel degenerative change with canal stenosis at L3-4. Foraminal narrowing as described above.Posterior fixation and laminectomy at L4-5 without complication. 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 / male who presented with a chief complaint of right bilateralshoulder and bilateral lower extremity pain with movement or weight bearing. He has a significant past medical history of lumbar spine surgery L4-L5 in 2022 and Cervical fusion around 1984, CAD s/p PTCA, type 2 diabetes mellitus, CKD stage III, HTN, HLD and is a current smoker. MRI cervical spine showed severe spinal canal stenosis at C3-4 and C4-5 with flattening of the spinal cord and abnormal bilateral paracentral cord T2 hyperintensity at the C4-5 level consistent with spondylotic myelomalacia. MRI lumbar showed canal stenosis measuring 6 mm in AP dimension and narrowing of the lateral recesses. Patient taken to the OR on 05/27/24 for C3-C7 PCDF and extension of posterior lumbar fusion to include L3. Plan: Cervical myelopathy s/p C3-C7 PCDF on 05/27/24 Lumbar stenosis s/p extension of posterior lumbar fusion to L3 on 05/27/24 POD #2 Cyclobenzaprine 10mg PO nightly Gabapentin 300mg PO BiD Neurosurgery recs appreciated Heparin 5k units subQ Q8h PT/OT Angioedema Given 1 dose of solumedrol 80 mg and IV Benadryl of 25 mg. Monitor progression Monitor for respiratory changes. Leukocytosis POD1. WBC 12.6. Will monitor MEAGHAN on CKD stage III Improving MEAGHAN. eGFR 36, Cr 2.5 on admit > 1.9, BUN 58 Strict I/Os HTN BP goal <140/90 Started hydralazine 50 mg PO Q8h Continue Coreg 25mg BiD Labetalol 10mg IV Q6h PRN CAD TTE - EF 45-50% Continue Lipitor 20mg PO QD Continue imdur 30mg PO QD T2DM Insulin glargine 25 units SC BiD Insulin Lispro as per HDSS Follow-up further recommendations after discussing case with the attending. The plan was discussed with the patient, patient's family and the medical staff. Consultations: IP CONSULT TO NEUROLOGY IP CONSULT TO NEUROSURGERY IP CONSULT TO INTERNAL MEDICINE IP CONSULT TO CARDIOLOGY Patient is admitted as inpatient status because of co-morbidities listed above, severity of signs and symptoms as outlined, requirement for current medical therapies and most importantly because of direct risk to patient if care not provided in a hospital setting. HERMINIO Hernandez MD, 05/29/2024 8:29 AM Associated attestation - Lyn Culver DO - 05/29/2024 12:39 PM EDT Attending Physician Statement: I have discussed the case of Gage Lugo, including pertinent history and exam findings withthe resident. I have seen and examined the patient and the pablo elements of the encounter have been performed by me. I have reviewed medications, clinical laboratory, imaging and other diagnostic tests with the residents. I agree with the assessment, plan and orders as documented by the resident with changes made to the note as needed. This is a 74 year old male with history of CAD, DM, CKD, HTN, HLD, current smoker who presents with2 week history of RLE pain. He denies any trauma or falls or recent illness. ESR and CRP elevated, CPK WNL. Aldolase pending. MRI C and L spine completed- showed concern for C-spine compression. MRI L spine with multilevel DJD. Patient states symptoms improving on IV steroids and gabapentin Neurosurgery recs appreciated. Plan for OR. PT/OT. LE doppler negative. Discussed with family at bedside. S/p OR with Neurosurgery. S/p cervical decompression and fusion of C3-C7 and posterior lumbar fusion to L3. Had angioedema after Norvasc. Medication discontinued, listed as allergy. Gave benadryl, steroids, PPI, tongue slightly decreased today. Will transfer to neuro stepdown for closer monitoring. Lyn Culver DO 05/29/2024 12:38 PM * Radha Bryan RN - 05/29/2024 6:32 AM EDT 0520: Pt was complaining of tongue swelling sating at 90% on RA. Placed on nasal cannula at 2L. Pt denies SOB or chest tightness. MD notified. No new orders at this time. Day team will follow. 0630: Pt speech is garbled with worsening edema. Charge notified. MD aware. 0648: MD at bedside. Will pass along to primary. No new orders at this time. * Solomon Wesley, DO - 05/28/2024 8:06 PM EDT Images from the original note were not included. Resident Progress Note Date: 05/28/2024 Time: 8:06 PM Patient Name: Gage Lugo Patient : 1950 Room/Bed: 44/0544-01 Allergies: Allergies Allergen Reactions Asa [Aspirin] Anaphylaxis and Swelling Can take ONE a day more than one causes the allergy Percocet [Oxycodone-Acetaminophen] Anaphylaxis Interval History: POD 1 s/p posterior cervical decompression/fusion C3-7. And Extension of posterior lumbar fusion toL3. No acute events overnight. Vitally stable. Current Medications: Scheduled Meds: hydrALAZINE 100 mg Oral 3 times per day cetirizine 10 mg Oral BID sodium chloride flush 5-40 mL IntraVENous 2 times per day acetaminophen 650 mg Oral Q6H polyethylene glycol 17 g Oral Daily famotidine (PEPCID) injection 20 mg IntraVENous Daily Or famotidine 20 mg Oral Daily heparin (porcine) 5,000 Units SubCUTAneous 3 times per day insulin glargine 25 Units SubCUTAneous BID cyclobenzaprine 10 mg Oral Nightly atorvastatin 20 mg Oral Nightly insulin lispro 0-16 Units SubCUTAneous TID WC insulin lispro 0-4 Units SubCUTAneous Nightly carvedilol 25 mg Oral BID WC isosorbide mononitrate 30 mg Oral Daily gabapentin 300 mg Oral BID [Held by provider] methylPREDNISolone 60 mg IntraVENous Q6H sodium chloride flush 5-40 mL IntraVENous 2 times per day Continuous Infusions: sodium chloride 125 mL/hr at 05/28/24 0506 sodium chloride dextrose sodium chloride Vitals: Patient Vitals for the past 8 hrs: Temp Temp src 05/28/24 1602 98.7 F (37.1 C) Oral Height and Weight Height: 165.1 cm (5' 5 ) Weight - Scale: 71.6 kg (157 lb 13.6 oz) Weight Method: Bed scale BSA (Calculated - sq m): 1.81 sq meters BMI (Calculated): 26.3 Body mass index is 26.27 kg/m . <16 Severe malnutrition 16-16.99 Moderate malnutrition 17-18.49 Mild malnutrition 18.5-24.9 Normal 25-29.9 Overweight (not obese) 30-34.9 Obese class 1 (Low Risk) 35-39.9 Obese class 2 (Moderate Risk) ?40 Obese class 3 (High Risk) Labs (last 48 hours): Recent Results (from the past 48 hour(s)) Comprehensive Metabolic Panel w/ Reflex to MG Collection Time: 05/27/24 5:52 AM Result Value Ref Range Sodium 139 136 - 145 mmol/L Potassium 4.0 3.7 - 5.3 mmol/L Chloride 110 (H) 98 - 107 mmol/L CO2 20 20 - 31 mmol/L Anion Gap 9 9 - 16 mmol/L Glucose 197 (H) 74 - 99 mg/dL BUN 58 (H) 8 - 23 mg/dL Creatinine 1.9 (H) 0.70 - 1.20 mg/dL Est, Glom Filt Rate 36 (L) >60 mL/min/1.73m2 Calcium 8.5 (L) 8.6 - 10.4 mg/dL Total Protein 5.5 (L) 6.6 - 8.7 g/dL Albumin 3.1 (L) 3.5 - 5.2 g/dL Albumin/Globulin Ratio 1.0 1.0 - 2.5 Total Bilirubin 0.2 0.00 - 1.20 mg/dL Alkaline Phosphatase 81 40 - 129 U/L ALT 29 10 - 50 U/L AST 28 10 - 50 U/L POC Glucose Fingerstick Collection Time: 05/27/24 8:17 AM Result Value Ref Range POC Glucose 174 (H) 75 - 110 mg/dL Calcium, Ionized Collection Time: 05/27/24 5:22 PM Result Value Ref Range Calcium, Ionized 1.21 1.13 - 1.33 mmol/L Lactic Acid Collection Time: 05/27/24 5:22 PM Result Value Ref Range Lactic Acid, Whole Blood 1.4 0.7 - 2.1 mmol/L OPEN HEART PANEL Collection Time: 05/27/24 5:22 PM Result Value Ref Range pH, Arterial 7.284 (L) 7.350 - 7.450 pCO2, Arterial 40.0 32 - 45 mmHg pO2, Arterial 183.0 (H) 75 - 95 mmHg HCO3, Arterial 18.4 (L) 22 - 27 mmol/L Negative Base Excess, Art 7.2 (H) 0.0 - 2.0 mmol/L O2 Sat, Arterial 98.7 94 - 100 % Carboxyhemoglobin 1.9 0 - 5 % Pt Temp 35.6 pH, Art, Temp Adj 7.304 (L) 7.350 - 7.450 pCO2, Art, Temp Adj 37.4 32 - 45 pO2, Art, Temp Adj 177.0 (H) 75 - 95 mmHg Lux Test INFORMATION NOT PROVIDED FIO2 50% Hemoglobin 9.1 (L) 13.0 - 17.0 gm/dL Hematocrit 28.3 (L) 40.7 - 50.3 % POC Glucose 184 (H) 75 - 110 mg/dL Chloride, Whole Blood 116 (H) 98 - 110 mmol/L Potassium, Whole Blood 4.5 3.6 - 5.0 mmol/L Sodium, Whole Blood 138 136 - 145 mmol/L POC Glucose Fingerstick Collection Time: 05/27/24 7:36 PM Result Value Ref Range POC Glucose 215 (H) 75 - 110 mg/dL POC Glucose Fingerstick Collection Time: 05/27/24 9:24 PM Result Value Ref Range POC Glucose 248 (H) 75 - 110 mg/dL Basic Metabolic Panel w/ Reflex to MG Collection Time: 05/28/24 7:34 AM Result Value Ref Range Sodium 138 136 - 145 mmol/L Potassium 4.8 3.7 - 5.3 mmol/L Chloride 112 (H) 98 - 107 mmol/L CO2 16 (L) 20 - 31 mmol/L Anion Gap 10 9 - 16 mmol/L Glucose 198 (H) 74 - 99 mg/dL BUN 58 (H) 8 - 23 mg/dL Creatinine 1.9 (H) 0.70 - 1.20 mg/dL Est, Glom Filt Rate 36 (L) >60 mL/min/1.73m2 Calcium 8.0 (L) 8.6 - 10.4 mg/dL CBC with Auto Differential Collection Time: 05/28/24 7:34 AM Result Value Ref Range WBC 12.6 (H) 3.5 - 11.3 k/uL RBC 3.25 (L) 4.21 - 5.77 m/uL Hemoglobin 9.1 (L) 13.0 - 17.0 g/dL Hematocrit 32.1 (L) 40.7 - 50.3 % MCV 98.8 82.6 - 102.9 fL MCH 28.0 25.2 - 33.5 pg MCHC 28.3 (L) 28.4 - 34.8 g/dL RDW 12.8 11.8 - 14.4 % Platelets 189 138 - 453 k/uL MPV 10.4 8.1 - 13.5 fL NRBC Automated 0.0 0.0 per 100 WBC Immature Granulocytes % 1 (H) 0 % Neutrophils % 81 (H) 36 - 65 % Lymphocytes % 8 (L) 24 - 43 % Monocytes % 10 3 - 12 % Eosinophils % 0 (L) 1 - 4 % Basophils % 0 0 - 2 % Immature Granulocytes Absolute 0.13 0.00 - 0.30 k/uL Neutrophils Absolute 10.20 (H) 1.50 - 8.10 k/uL Lymphocytes Absolute 1.01 (L) 1.10 - 3.70 k/uL Monocytes Absolute 1.26 (H) 0.10 - 1.20 k/uL Eosinophils Absolute 0.00 0.00 - 0.44 k/uL Basophils Absolute 0.00 0.00 - 0.20 k/uL Morphology HYPOCHROMIA PRESENT POC Glucose Fingerstick Collection Time: 05/28/24 8:11 AM Result Value Ref Range POC Glucose 184 (H) 75 - 110 mg/dL POC Glucose Fingerstick Collection Time: 05/28/24 11:26 AM Result Value Ref Range POC Glucose 192 (H) 75 - 110 mg/dL POC Glucose Fingerstick Collection Time: 05/28/24 4:27 PM Result Value Ref Range POC Glucose 192 (H) 75 - 110 mg/dL RADIOLOGY: XR CERVICAL SPINE (2-3 VIEWS) Result Date: 05/28/2024 Postoperative changes in the lumbar spine. No evidence of complication. Spondylosis of the lumbar spine. XR LUMBAR SPINE (2-3 VIEWS) Result Date: 05/28/2024 Postoperative changes in the lumbar spine. No evidence of complication. Spondylosis of the lumbar spine. FLUORO FOR SURGICAL PROCEDURES Result Date: 05/27/[address] fluoroscopic images as above. See separate procedure report for more information. CT LUMBAR SPINE WO CONTRAST Result Date: 05/25/2024 Posterior fixation at L4-5 with associated laminectomy and hardware is intact. Potential minimal lucency developing adjacent to the transpedicular screws at the L5 level. Multilevel degenerative facet hypertrophy with bilateral bony foraminal narrowing at L5-S1. MRI CERVICAL SPINE WO CONTRAST Result Date: 05/24/2024 1. Motion limited evaluation. 2. Severe spinal canal stenosis at C3-4 and C4-5 with flattening of the spinal cord and abnormal bilateral paracentral cord T2 hyperintensity at the C4-5 level consistent with spondylotic myelomalacia, although a component of cord edema may be present. 3. Moderate spinal canal stenosis at C6-7. 4. Moderate and severe multilevel neural foraminal narrowing as detailed above. XR SPINE ENTIRE (2-3 VIEWS) Result Date: 05/24/2024 1. Mild levoscoliosis of the lower thoracic spine and mild dextroscoliosis of the lumbar spine. 2. Status post posterior fusion and discectomy at L4-5 without complication identified. MRI BRAIN WO CONTRAST Result Date: 05/24/2024 Chronic microvascular disease without acute intracranial abnormality. Chronic sinusitis of the leftmaxillary sinus. MRI LUMBAR SPINE WO CONTRAST Result Date: 05/24/2024 Multilevel degenerative change with canal stenosis at L3-4. Foraminal narrowing as described above.Posterior fixation and laminectomy at L4-5 without complication. Labs and imaging reviewed with Dr. Bridges NEUROLOGIC EXAMINATION GENERAL Appears comfortable and in no distress HEENT NC/ AT MENTAL STATUS: Alert, oriented, no confusion, fluid speech, normal language, no aphasia or dysarthria CRANIAL NERVES: II - Visual ochoa intact to confrontation III,IV, - PERRL, EOMI, no ptosis V - intact facial sensation VII - Intact facial symmetry VIII - Intact hearing IX,X - Symmetrical palate XI - Symmetrical shoulder shrug XII - Midline tongue, no atrophy MOTOR FUNCTION: RUE: Significant for good strength of grade 5/5 in proximal and distal muscle groups LUE: Significant for good strength of grade 5/5 in proximal and distal muscle groups RLE: Significant for good strength of grade 5/5 in proximal and distal muscle groups LLE: Significant for good strength of grade 5/5 in proximal muscles Plantar flexion 5/5 Dorsiflexion 4/5 Normal bulk, normal tone and no involuntary movements, no tremor SENSORY FUNCTION: Intact sensation to touch in all extremities CEREBELLAR FUNCTION: No dysmetria or dysdiadochokinesia REFLEX FUNCTION: L. Biceps 2/4, R. Biceps 2/4 L. Patellar 2/4, R. Patellar 2/4 Negative babinski and negative larson's STATION and GAIT Not assessed PLAN: - C/t current management. - Pain control - DVT prophylaxis - CBC and BMP daily Thank you for the consult, we will continue to follow with you. Please contact neurosurgery / neuro critical care with any changes. Solomon Wesley DO, Neurosurgery Pager [phone] 05/28/2024 8:06 PM * Chris Ochoa RN - 05/28/2024 6:23 PM EDT Pt. Developed some angioedema maybe be due to BP med's. The physician came and checked pt. At bedside prescribed zyrtec.. Pt. Stated tongue still feel swollen but he is able to swallow and eat his meals. * Wendy Duenas OT - 05/28/2024 11:45 AM EDT Occupational Therapy Facility/Department: [address] [facility] Occupational Therapy Initial Evaluation Patient Name: Gage Lugo : 1950 Date of Service: 05/28/2024 Chief Complaint Patient presents with Pain Bilat shoulders, back and bilat legs Discharge Recommendations Discharge Recommendations: Patient would benefit from continued therapy after discharge OT Equipment Recommendations Equipment Needed: No Assessment Patient is normaly independent with functional mobility, personal ADLs and household tasks. At thistime patient requires contact guard to min assist with functional mobility and stand by assist to min assist with ADLs. Patient would benefit from therapy during stay in acute setting. Patient is expected to be safe to return to prior living arrangement with 24/ assistance from spouse and daughterto safely perform personal ADLs and mobility. Performance deficits / Impairments: Decreased functional mobility ;Decreased endurance;Decreased coordination;Decreased ADL status;Decreased balance;Decreased safe awareness Prognosis: Good Decision Making: Medium Complexity REQUIRES OT FOLLOW-UP: Yes Activity Tolerance Activity Tolerance: Patient Tolerated treatment well Safety Devices Type of Devices: All fall risk precautions in place;Call light within reach;Gait belt;Nurse notified;Chair alarm in place;Left in chair Restraints Restraints Initially in Place: No Restrictions/Precautions Restrictions/Precautions Restrictions/Precautions: Fall Risk;Up as Tolerated Required Braces or Orthoses?: Yes Required Braces or Orthoses Cervical: c-collar ([place]) Position Activity Restriction Spinal Precautions: No Bending;No Twisting;No Lifting Other position/activity restrictions: Activity as tolerated, Posterior decompression fusion C3-7, extension of lumbar fusion to L 3 05/27, Cervical collar out bed, may remove in bed or when eating Subjective General Patient assessed for rehabilitation services?: Yes Family / Caregiver Present: No Subjective Subjective: Patient seen after cleared by nursing for occupational therapy evaluation. Patient agreeable to evaluation and treatment General Comment Comments: Patient complains no pain at rest, mild discomfort (2/10 pain with mobility), resolved once resting Home Setup/Prior Level of Function Social/Functional History Lives With: Significant other Type of Home: House Home Layout: Two level;Able to Live on Main level with bedroom/bathroom Home Access: Ramped entrance Bathroom Shower/Tub: Walk-in shower;Curtain Bathroom Toilet: Standard Bathroom Equipment: Grab bars in shower;Built-in shower seat Bathroom Accessibility: Accessible Home Equipment: Walker - Rolling;Cane Has the patient had two or more falls in the past year or any fall with injury in the past year?: No Receives Help From: Family (Significant other and daughter who lives across the street) ADL Assistance: Independent Homemaking Assistance: Independent (Shres cooking and housekeeping with girl firend, performs his own laundry) Ambulation Assistance: Independent Transfer Assistance: Independent Active Med Admin: Yes Mode of Transportation: Truck Occupation: Retired 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 Vision/Hearing Vision Vision: Within Functional Limits Hearing Hearing: Within functional limits BUE Assessment Gross Assessment AROM: (With WFLs elbow distal, AROM shoulders limited to 90 degrees due to cervical spinal precautions) Strength: (Shoulders not tested d/t cervical spinal precautions, UB strength grossly 4+/5) Tone: Normal Sensation: Intact (UB sensation intact) Hand Dominance: Right Objective Orientation Overall Orientation Status: Within Functional Limits Cognition Overall Cognitive Status: Exceptions Following Commands: Follows multistep commands with increased time;Follows multistep commands with repitition Attention Span: Appears intact Safety Judgement: Decreased awareness of need for assistance;Good awareness of safety precautions Problem Solving: Assistance required to identify errors made;Assistance required to generate solutions;Assistance required to correct errors made Insights: Decreased awareness of deficits Initiation: Requires cues for some Sequencing: Requires cues for some Cognition Comment: Needs continued education in spinal precautions, limited recall and application during OT evaluation Activities of Daily Living Feeding: Independent;Based on clinical judgement Grooming: Supervision;Setup;Based on clinical judgement UE Bathing: Stand by assistance LE Bathing: Minimal assistance LE Bathing Skilled Clinical Factors: Recomend long handle sponge, reviewed no bending to wash LEs, demo'd figure 4 tech. Patient reports purchasing LB sx kit that includes sock aide and machine sander, unsure if has long handle sponge. UE Dressing: Stand by assistance LE Dressing: Minimal assistance LE Dressing Skilled Clinical Factors: Patient performs in standing at baseline, reviewed no bendingto thread LEs into pants or don socks, demo'd figure 4 tech. Patient reports purchasing LB sx kit that includes sock aide and machine sander, reviewed tech in use for LB dressing Toileting: Based on clinical judgement;Contact guard assistance Balance Balance Sitting: Without support (Seated EOB x8-10 minutes, dynamic balance simulated sock management with CGA, static sitting with supervision) Standing: With support (Sit Stand at EOB with Min A, functional mobility bathroom distances with Min A, sat EOB to rest/recover while bedside chair set up, functional mobility to chair CGA, patient with HBP and some dizziness, defered mobility to bathroom this date.) Transfers/Mobility Bed mobility Supine to Sit: Minimal assistance Scooting: Contact guard assistance Bed Mobility Comments: Log roll technique utilized with HOB elevated Transfers Sit to stand: Minimal assistance Stand to sit: Contact guard assistance Functional Mobility Skilled Clinical Factors: Patient is able to demostrate functional mobility in room with RW support short distances, defered mobility to bathroom this date due to dizziness. Patient Education Patient Education Education Given To: Patient Education Provided: Role of Therapy;ADL Adaptive Strategies Education Method: Verbal;Teach Back;Printed Information/Hand-outs Barriers to Learning: None Education Outcome: Verbalized understanding;Continued education needed Goals Short Term Goals Time Frame for Short Term Goals: Prior to discharge Short Term Goal 1: Patient to demonstrate dyanmic sitting balance with supervision for increased independence with LB dressing Short Term Goal 2: Patient to demonstrate static standing balance with supervision 12-15 minutes atsink for increased independence with A.M ADLs. Short Term Goal 3: Patient to perform functional mobility household distances with LRAD with Supervision Short Term Goal 4: Patient to perform bathroom transfers with supervision Short Term Goal 5: Patient to demonstarte LB dressing ADLs with set up Assist following spinal precaution 100% of the time Additional Goals?: No Plan Occupational Therapy Plan Times Per Week: 3-5x/wk AM-[facility] Daily Activities Inpatient AM-[facility] Daily Activity - Inpatient How much help is needed for putting on and taking off regular lower body clothing?: A Little How much help is needed for bathing (which includes washing, rinsing, drying)?: A Little How much help is needed for toileting (which includes using toilet, bedpan, or urinal)?: A Little How much help is needed for putting on and taking off regular upper body clothing?: A Little How much help is needed for taking care of personal grooming?: None How much help for eating meals?: None AM-[facility] Inpatient Daily Activity Raw Score: 20 AM-[facility] Inpatient ADL T-Scale Score : 42.03 ADL Inpatient CMS 0-100% Score: 38.32 ADL Inpatient CMS G-Code Modifier : CJ Minutes OT Individual Minutes Time In: 0837 Time Out: 0905 Minutes: 28 Time Code Minutes Timed Code Treatment Minutes: 16 Minutes * Sole Son, PT - 05/28/2024 11:25 AM EDT Physical Therapy Facility/Department: [address] [facility] Physical Therapy Initial Assessment Name: Gage Lugo : 1950 Date of Service: 05/28/2024 Discharge Recommendations: Further therapy recommended at discharge.The patient should be able to tolerate at least 3 hours of therapy per day over 5 days or 15 hours over 7 days. This patient may benefit from a Physical Medicine and Rehab consult. Chief Complaint Patient presents with Pain Bilat shoulders, back and bilat legs The patient is a 74 y.o. / male who presents with Pain (Bilat shoulders, back and bilat legs) and he is admitted to the hospital for the management of generalized pain. He has a past medical history significant for CAD s/p PTCA, type 2 diabetes mellitus, CKD stage III, essential hypertension,mixed hyperlipidemia and current smoker. He initially presented to the ED with a chief complaint ofpain in his right leg with inability to bear weight on it. In addition to that, patient is also complaining of pain in bilateral shoulders along with difficulty to raise both arms above 90 degrees. PT Equipment Recommendations Equipment Needed: No (pt owns RW) Patient Diagnosis(es): The primary encounter diagnosis was Pain in right lower leg. 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 Past Medical History: has a past medical history of CAD (coronary artery disease), Diabetes mellitus (HCC), Hyperlipidemia, and Hypertension. Past Surgical History: has a past surgical history that includes Cardiac catheterization; cervical fusion; Lumbar disc surgery; Cervical spine surgery (05/27/2024); cervical fusion (N/A, 05/27/2024); and lumbar fusion (N/A, 05/27/2024). Assessment Body Structures, Functions, Activity Limitations Requiring Skilled Therapeutic Intervention: Decreased functional mobility ;Decreased ADL status;Decreased body mechanics;Decreased strength;Decreased high-level IADLs;Decreased balance;Decreased endurance;Decreased safe awareness;Increased pain;Decreased coordination Assessment: Pt ambulates 30 ft with RW and Susie, and then 20 ft with RW and CGA. pt currently is a high fall risk d/t decreased balance and endurance, requiring 24 hr assistance for functional mobility at this time. pt would benefit from continued therapy to promote endurance, balance, and strengthening. Therapy Prognosis: Good Decision Making: Medium Complexity Barriers to Learning: none Requires PT Follow-Up: Yes Activity Tolerance Activity Tolerance: Patient limited by endurance;Patient limited by fatigue Plan Physical Therapy Plan General Plan: (5-6x) Current Treatment Recommendations: Strengthening, Balance training, Functional mobility training, Transfer training, ADL/Self-care training, IADL training, Endurance training, Equipment evaluation, education, & procurement, Patient/Caregiver education & training, Neuromuscular re-education,Safety education & training, Gait training, Stair training, Home exercise program, Therapeutic activities Safety Devices Type of Devices: All fall risk precautions in place, Call light within reach, Gait belt, Nurse notified, Chair alarm in place, Left in chair Restraints Restraints Initially in Place: No Restrictions Restrictions/Precautions Restrictions/Precautions: Fall Risk, Up as Tolerated Required Braces or Orthoses?: Yes Required Braces or Orthoses Cervical: c-collar ([place]) Position Activity Restriction Spinal Precautions: No Bending, No Twisting, No Lifting Other position/activity restrictions: Activity as tolerated, Posterior decompression fusion C3-7, extension of lumbar fusion to L 3 05/27, Cervical collar out bed, may remove in bed or when eating Subjective General Patient assessed for rehabilitation services?: Yes Response To Previous Treatment: Not applicable Family / Caregiver Present: No Follows Commands: Within Functional Limits Subjective Subjective: RN and pt agreeable to PT. pt agreeable and pleasant. pt supine in bed at start of session. C-collar donned with pt in supine and maintained t/o session. Pt c/o no pain. Social/Functional History Social/Functional History Lives With: Significant other Type of Home: House Home Layout: Two level, Able to Live on Main level with bedroom/bathroom Home Access: Ramped entrance Bathroom Shower/Tub: Walk-in shower, Curtain Bathroom Toilet: Standard Bathroom Equipment: Grab bars in shower, Built-in shower seat Bathroom Accessibility: Accessible Home Equipment: Walker - Rolling, Cane Has the patient had two or more falls in the past year or any fall with injury in the past year?: No Receives Help From: Family (Significant other and daughter who lives across the street) ADL Assistance: Independent Homemaking Assistance: Independent (Shres cooking and housekeeping with girl firend, performs his own laundry) Ambulation Assistance: Independent Transfer Assistance: Independent Active Med Admin: Yes Mode of Transportation: Truck Occupation: Retired 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 Vision/Hearing Cognition Orientation Overall Orientation Status: Within Functional Limits Cognition Overall Cognitive Status: Exceptions Following Commands: Follows multistep commands with increased time;Follows multistep commands with repitition Safety Judgement: Decreased awareness of need for assistance;Good awareness of safety precautions Problem Solving: Assistance required to identify errors made;Assistance required to generate solutions;Assistance required to correct errors made Insights: Decreased awareness of deficits Initiation: Requires cues for some Sequencing: Requires cues for some Gross Assessment Sensation: Intact (pt denies n/t) AROM RLE (degrees) RLE AROM: WFL AROM LLE (degrees) LLE AROM : WFL AROM RUE (degrees) RUE AROM : WFL RUE General AROM: within c-spine precautions AROM LUE (degrees) LUE AROM : WFL LUE General AROM: within c-spine precautions Strength RLE Strength RLE: Exception R Hip Flexion: 4/5 R Knee Flexion: 4+/5 R Knee Extension: 4+/5 R Ankle Dorsiflexion: 4/5 R Ankle Plantar flexion: 4/5 Strength LLE Strength LLE: Exception L Hip Flexion: 4/5 L Knee Flexion: 4/5 L Knee Extension: 4/5 L Ankle Dorsiflexion: 4-/5 L Ankle Plantar Flexion: 4/5 Strength RUE Strength RUE: Exception Comment: appears WFL based on functional mobility, see OT note for details Strength LUE Strength LUE: Exception Comment: appears WFL based on functional mobility, see OT note for details Bed mobility Supine to Sit: Minimal assistance (for trunk/BLE progression) Sit to Supine: (pt ends in recliner) Scooting: Contact guard assistance Bed Mobility Comments: Log roll technique utilized with HOB elevated Transfers Sit to Stand: Minimal Assistance Stand to Sit: Minimal Assistance Comment: RW for UE support. Pt completes two transfers this date. Cues for hand placement with fairreturn Ambulation Surface: Level tile Device: Rolling Walker Assistance: Minimal assistance;Contact guard assistance Gait Deviations: Slow [place];Decreased step length;Decreased step height Distance: 30 ft + 20 ft Comments: Pt requires min A for first bout of ambulation and progresses to CGA for second bout of ambulation. Pt c/o dizziness in sitting, BP prior to functional mobility was WFL. Pt c/o increased lightheadedness post first bout of ambulation, BP taken in sitting after first bout of ambulation was WFL. pt reports dizziness as mild and does state that it improves with sitting rest break. More Ambulation?: No Stairs/Curb Stairs?: No Balance Posture: Good Sitting - Static: Good Sitting - Dynamic: Good;- Standing - Static: Fair Standing - Dynamic: Fair;- Comments: Assessed with RW AM-PAC - Mobility AM-PAC Basic Mobility - Inpatient How much help is needed turning from your back to your side while in a flat bed without using bedrails?: A Little How much help is needed moving from lying on your back to sitting on the side of a flat bed withoutusing bedrails?: A Little How much help is needed moving to and from a bed to a chair?: A Little How much help is needed standing up from a chair using your arms?: A Little How much help is needed walking in hospital room?: A Little How much help is needed climbing 3-5 steps with a railing?: A Lot [facility] Inpatient Mobility Raw Score : 17 AM-[facility] Inpatient T-Scale Score : 42.13 Mobility Inpatient CMS 0-100% Score: 50.57 Mobility Inpatient CMS G-Code Modifier : CK Goals Short Term Goals Time Frame for Short Term Goals: 14 visits Short Term Goal 1: Complete transfers with RW and mod I Short Term Goal 2: Complete 300 ft of gait with RW and mod I Short Term Goal 3: Participate in 30 minutes of therapy to promote endurance Short Term Goal 4: Complete bed mobility independently with HOB flat Education Patient Education Education Given To: Patient Education Provided: Role of Therapy;Plan of Care Education Method: Verbal Barriers to Learning: None Education Outcome: Verbalized understanding;Demonstrated understanding Therapy Time Individual Concurrent Group Co-treatment Time In 08 Time Out 0905 Minutes 28 Timed Code Treatment Minutes: 10 Minutes Sole Son PT * Philip Singh, SWEETIE - PHOTOGEOLOGIST - 05/28/2024 10:51 AM EDT Images from the original note were not included. [employer] Progress Note Date: 05/28/2024 Patient name: Gage Lugo Date of admission: 05/23/2024 6:12 PM Date of : 1950 PCP: Lolita Adorno DO Reason for Admission: Neurogenic pain of right lower extremity [M79.2] Pain in right lower leg [M79.661] Acute pain of both shoulders [M25.511, M25.512] Subjective: Clinical Changes /Abnormalities:Patient seen and examined. Denies chest pain or shortness of breath. Tele/vitals/labs reviewed . Review of Systems Medications: Scheduled Meds: hydrALAZINE 100 mg Oral 3 times per day sodium chloride flush 5-40 mL IntraVENous 2 times per day ceFAZolin (ANCEF) IVPB 2,000 mg IntraVENous Q8H acetaminophen 650 mg Oral Q6H polyethylene glycol 17 g Oral Daily famotidine (PEPCID) injection 20 mg IntraVENous Daily Or famotidine 20 mg Oral Daily heparin (porcine) 5,000 Units SubCUTAneous 3 times per day insulin glargine 25 Units SubCUTAneous BID cyclobenzaprine 10 mg Oral Nightly atorvastatin 20 mg Oral Nightly insulin lispro 0-16 Units SubCUTAneous TID WC insulin lispro 0-4 Units SubCUTAneous Nightly carvedilol 25 mg Oral BID WC isosorbide mononitrate 30 mg Oral Daily gabapentin 300 mg Oral BID [Held by provider] methylPREDNISolone 60 mg IntraVENous Q6H sodium chloride flush 5-40 mL IntraVENous 2 times per day Continuous Infusions: sodium chloride 125 mL/hr at 05/28/24 0506 sodium chloride dextrose sodium chloride CBC: Recent Labs 05/26/24 0553 05/27/24 1722 05/28/24 0734 WBC 17.5* -- 12.6* HGB 10.3* 9.1* 9.1* PLT 225 -- 189 BMP: Recent Labs 05/26/24 0553 05/27/24 0552 05/27/24 1722 05/28/24 0734 NA 136 139 138 138 K 4.2 4.0 4.5 4.8 CL 109* 110* -- 112* CO2 18* 20 -- 16* BUN 55* 58* -- 58* CREATININE 1.9* 1.9* -- 1.9* GLUCOSE 262* 197* -- 198* Hepatic: Recent Labs 05/26/24 0553 05/27/24 0552 AST 25 28 ALT 22 29 BILITOT 0.3 0.2 ALKPHOS 84 81 Troponin: No results for input(s): TROPHS in the last 72 hours. BNP: No results for input(s): BNP in the last 72 hours. Lipids: No results for input(s): CHOL , HDL in the last 72 hours. Invalid input(s): LDLCALCU INR: No results for input(s): INR in the last 72 hours. DATA: EKG: Yesterday Sinus rhythm with frequent Premature ventricular complexes in a pattern of bigeminy ECHO: Ordered yesterday. Not yet obtained Stress Test: reviewed. 09/25/20 Abnormal Lexiscan Myoview cardiac perfusion stress test. No myocardial ischemia by perfusion imaging. Moderate-sized inferior wall myocardial infarction by perfusion imaging. Abnormal left ventricular systolic function. Left ventricular ejection fraction 52 %. Inferior wall hypokinesis is noted When compared to study from another lab from 2019 there has been no interval changes. Cardiac Angiography: bare metal stent in the right coronary artery in 2006 with repeat angioplasty of the RCA 2016. Nuclear stress test September 2020 revealed The ASCVD Risk score (Amanda DK, et al., 2019) failed to calculate for the following reasons: Cannot find a previous HDL lab Cannot find a previous total cholesterol lab Objective: Vitals: BP (!) 156/79 Pulse 68 Temp 98.4 F (36.9 C) (Oral) Resp 13 Ht 1.651 m (5' 5 ) Wt 71.6 kg (157 lb 13.6 oz) SpO2 100% BMI 26.27 kg/m General appearance: alert and cooperative with exam HEENT: Head: Normocephalic, no lesions, without obvious abnormality. 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 Florian on discharge [employer] [phone] * Tammi Rincon MD - 05/28/2024 8:25 AM EDT Images from the original note were not included. [facility] Internal Medicine Teaching Residency Program Inpatient Daily Progress Note Patient: Gage Lugo Date of : 1950 Acct: [id number] Room: 44/0544-01 Admit date: 05/23/2024 Today's date: 05/28/24 Number of days in the hospital: 5 SUBJECTIVE CC: Pain (Bilat shoulders, back and bilat legs) -S/p posterior cervical decompression fusion C3-C4. Extension of posterior lumbar fusion at L3 -Patient is comfortable, no apparent distress. In cervical collar and evaluated by PT/OT. -BP still running high. Could be likely to pain and post anaesthesia. On carvedilol 25 mg BID and hydralazine 100 mg TID -Glucose wnl. Can be started back on home meds -Total drain output 250 ml, u/o 1.1 litres ROS: General ROS: Soreness Respiratory ROS: Completed and except as mentioned above were negative Cardiovascular ROS: Completed and except as mentioned above were negative Gastrointestinal ROS: Completed and except as mentioned above were negative Genito-Urinary ROS: Completed and except as mentioned above were negative Musculoskeletal ROS: Completed and except as mentioned above were negative BRIEF HISTORY The patient is a pleasant 74 y.o. male presents with a chief complaint of neurogenic right foot pain. Patient was admitted under neurosurgery service for surgical management of neuropathic pain. IM was consulted for the management of hypertension, type 2 diabetes mellitus, CKD stage III, chronic tobacco use. Last Echo EF of 50 to 55% in 2020 Last Cath 2006, CAD s/p PCI with 2 stents Repeat RCA stent 2016 Last lipid profile Cholesterol 119, HDL 27, TG 382, LDL 16 (10/2023) Last HbA1C 7.9% Hospital Course: The patient complains of right foot pain from [facility] which is sudden, episodic and intense. It is not related to position of movement of the foot and shoots up the leg all the way to the buttocks. The foot was not tender to touch however he had multiple episodes of this pain and was unable to bear weight on it. The patient also complained of bilateral upper extremity weakness particular ly in the shoulders. Patient had increased ESR and CRP on admission, his other labs were unremarkable. Decision was made to operate on the patient cervical as well as lumbar spine and get medical clearance. The patient uses 10 units of insulin glargine at home twice daily. He is also on glipizide for his blood glucose control. The patient uses CGM to monitor blood glucose levels and states that they fluctuate between 110 to 120 mg/dL. The patient is also on aspirin, Lipitor, Coreg, hydralazine. He is on nitrates as needed for cardiac chest pain. OBJECTIVE Vital Signs: BP (!) 156/79 Pulse 68 Temp 98.4 F (36.9 C) (Oral) Resp 12 Ht 1.651 m (5' 5 ) Wt 71.6 kg (157 lb 13.6 oz) SpO2 100% BMI 26.27 kg/m Temp (24hrs), Av.7 F (36.5 C), Min:96.8 F (36 C), Max:98.4 F (36.9 C) In: 2550 Out: 1635 [Urine:1110; Drains:225] PHYSICAL EXAMINATION: Constitutional: This is a well developed, well nourished, 25-29.9 - Overweight 62 y.o. year old male who is alert, oriented, cooperative and in no apparent distress. Head:normocephalic and atraumatic. Post-op drain noted in cervical and lower back region. Cervical collar in place Respiratory: Chest was symmetrical without dullness to percussion. Breath sounds bilaterally were clear to auscultation. There were no wheezes, rhonchi or rales. There is no intercostal retraction oruse of accessory muscles. No egophony noted. Cardiovascular: Regular without murmur, clicks, gallops or rubs. Abdomen: Slightly rounded and soft without organomegaly. No rebound, rigidity or guarding was appreciated. Hypoactive bowel sounds Musculoskeletal: Normal curvature of the spine. No gross muscle weakness. Extremities: No lower extremity edema, ulcerations, tenderness, varicosities or erythema. Muscle size, tone and strength are normal. No involuntary movements are noted. Medications: Scheduled Medications: hydrALAZINE 100 mg Oral 3 times per day sodium chloride flush 5-40 mL IntraVENous 2 times per day ceFAZolin (ANCEF) IVPB 2,000 mg IntraVENous Q8H acetaminophen 650 mg Oral Q6H polyethylene glycol 17 g Oral Daily famotidine (PEPCID) injection 20 mg IntraVENous Daily Or famotidine 20 mg Oral Daily heparin (porcine) 5,000 Units SubCUTAneous 3 times per day insulin glargine 25 Units SubCUTAneous BID cyclobenzaprine 10 mg Oral Nightly atorvastatin 20 mg Oral Nightly insulin lispro 0-16 Units SubCUTAneous TID WC insulin lispro 0-4 Units SubCUTAneous Nightly carvedilol 25 mg Oral BID WC isosorbide mononitrate 30 mg Oral Daily gabapentin 300 mg Oral BID [Held by provider] methylPREDNISolone 60 mg IntraVENous Q6H sodium chloride flush 5-40 mL IntraVENous 2 times per day Continuous Infusions: sodium chloride 125 mL/hr at 05/28/24 0506 sodium chloride dextrose sodium chloride PRN Medicationssodium chloride flush, 5-40 mL, PRN sodium chloride, , PRN HYDROmorphone, 0.5 mg, Q3H PRN Or HYDROmorphone, 1 mg, Q3H PRN bisacodyl, 10 mg, Daily PRN cyclobenzaprine, 10 mg, TID PRN HYDROcodone 5 mg - acetaminophen, 1 tablet, Q4H PRN HYDROcodone 5 mg - acetaminophen, 2 tablet, Q4H PRN senna, 1 tablet, Daily PRN metoclopramide, 10 mg, Q6H PRN glucose, 4 tablet, PRN dextrose bolus, 125 mL, PRN Or dextrose bolus, 250 mL, PRN glucagon (rDNA), 1 mg, PRN dextrose, , Continuous PRN labetalol, 10 mg, Q6H PRN sodium chloride flush, 5-40 mL, PRN sodium chloride, , PRN LORazepam, 4 mg, Q5 Min PRN ondansetron, 4 mg, Q8H PRN Or ondansetron, 4 mg, Q6H PRN Diagnostic Labs: CBC: Recent Labs 05/26/24 0553 05/27/24 1722 WBC 17.5* -- RBC 3.65* -- HGB 10.3* 9.1* HCT 31.3* 28.3* MCV 85.8 -- RDW 12.2 -- PLT 225 -- BMP: Recent Labs 05/26/24 0553 05/27/24 0552 05/27/24 1722 NA 136 139 138 K 4.2 4.0 4.5 CL 109* 110* -- CO2 18* 20 -- BUN 55* 58* -- CREATININE 1.9* 1.9* -- BNP: No results for input(s): BNP in the last 72 hours. PT/INR: No results for input(s): PROTIME , INR in the last 72 hours. APTT: No results for input(s): APTT in the last 72 hours. CARDIAC ENZYMES: No results for input(s): CKMB , CKMBINDEX , TROPONINI in the last 72 hours. Invalid input(s): CKTOTAL;3 FASTING LIPID PANEL:No results found for: CHOL , HDL , TRIG LIVER PROFILE: Recent Labs 05/26/24 0553 05/27/24 0552 AST 25 28 ALT 22 29 BILITOT 0.3 0.2 ALKPHOS 84 81 MICROBIOLOGY: Lab Results Component Value Date/Time CULTURE NO GROWTH 05/23/2024 11:26 PM Imaging: FLUORO FOR SURGICAL PROCEDURES Result Date: 05/27/[address] fluoroscopic images as above. See separate procedure report for more information. CT LUMBAR SPINE WO CONTRAST Result Date: 05/25/2024 Posterior fixation at L4-5 with associated laminectomy and hardware is intact. Potential minimal lucency developing adjacent to the transpedicular screws at the L5 level. Multilevel degenerative facet hypertrophy with bilateral bony foraminal narrowing at L5-S1. MRI CERVICAL SPINE WO CONTRAST Result Date: 05/24/2024 1. Motion limited evaluation. 2. Severe spinal canal stenosis at C3-4 and C4-5 with flattening of the spinal cord and abnormal bilateral paracentral cord T2 hyperintensity at the C4-5 level consistent with spondylotic myelomalacia, although a component of cord edema may be present. 3. Moderate spinal canal stenosis at C6-7. 4. Moderate and severe multilevel neural foraminal narrowing as detailed above. XR SPINE ENTIRE (2-3 VIEWS) Result Date: 05/24/2024 1. Mild levoscoliosis of the lower thoracic spine and mild dextroscoliosis of the lumbar spine. 2. Status post posterior fusion and discectomy at L4-5 without complication identified. MRI BRAIN WO CONTRAST Result Date: 05/24/2024 Chronic microvascular disease without acute intracranial abnormality. Chronic sinusitis of the leftmaxillary sinus. MRI LUMBAR SPINE WO CONTRAST Result Date: 05/24/2024 Multilevel degenerative change with canal stenosis at L3-4. Foraminal narrowing as described above.Posterior fixation and laminectomy at L4-5 without complication. 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 * Type 2 diabetes mellitus Serum glucose is 300 to 350 mg/dl Was taking Lantus 10 units OD and Glipizide 10 mg OD Lantus 25 twice daily High-dose sliding scale POCT checks pre meal QID Essential hypertension Hydralazine 50 mg TID CAD s/p PTCA RCA bare metal stent revision 2016, History of NM Prior echo in 2020 shows EF 50-55% Aspirin 81 mg, Lipitor 20 mg nightly Carvedilol 25 mg BID Imdur 30 mg Isosorbide nitrate PRN Duplex scan of lower extremities negative for any obstruction Chronic kidney disease stage 3b GFR 28 mL/min Creatinine 2.6 Secondary to uncontrolled type 2 diabetes Degenerative disc disease L3-L4 canal stenosis S/p posterior fixation and laminectomy L4-L5 2022 S/p cervical spinal surgery in 1984 Gabapentin 300 mg TID Cyclobenzaprine 10 mg OD Cervical spinal stenosis MRI spine 05/24 showed stenosis at C3-C4 level with flattening of spinal cord and possible cord edema Injection Solu-Medrol 60 mg IV given Plan for cervical as well as lumbar spinal surgery per neurosurgery Diet: Diabetic diet DVT prophylaxis: Heparin subq Tammi Rincon MD PGY-1, Internal Medicine Resident [facility] 05/28/2024, 8:25 AM Associated attestation - Gerard Ramesh MD - 05/28/2024 1:16 PM EDT Attending Physician Statement I have discussed the care of Gage Lugo, including pertinent history and exam findings, with the resident. I have seen and examined the patient and the pablo elements of all parts of the encounter have been performed by me. I agree with the assessment, plan and orders as documented by the resident. (GC Modifier) MD FAUSTINO Garcia Attending Physician Internal Medicine Residency Program, Nephrology [facility] 05/28/2024, 1:16 PM * Herminio Hernandez MD - 05/28/2024 7:46 AM EDT Images from the original note were not included. [facility] Neurology IN-PATIENT SERVICE [facility] Progress Note Date: 05/28/2024 Patient name: Gage Lugo Date of admission: 05/23/2024 6:12 PM Account: [id number] Date of : 1950 PCP: Lolita Adorno DO Room: 44/0544-01 Code Status: Full Code Chief Complaint: Chief Complaint Patient presents with Pain Bilat shoulders, back and bilat legs Interval hx: The patient was seen and examined at bedside. Is vitally stable, alert and oriented. Patient had vomited after surgery but no episodes since and able to tolerate breakfast. Patient is doing well withno new concerns. Neck pain is 0/10 when laying in bed and up to a 4/10 when moving. Patient has increased feeling of temperature in his left foot which was previously diminished. Brief History of Present Illness: The patient is a 74 y.o. / male who presents with Pain in the Bilateral shoulders, back and bilateral legs. He has a past medical history significant for CAD s/p PTCA, type 2 diabetesmellitus, CKD stage III, HTN, HLD and is a current smoker. He initially presented to the ED with a chief complaint of pain, worse in his right leg with inability to bear weight on it. Patient states this pain is a radicular pain with movement that starts in his foot and shoots up the back of the leg into the buttocks and lower back. The pain occurred all of a sudden on 05/23 when he woke up and isonly present with movement or touch/pressure on the extremity. It is a sharp 10/10 pain when it does occur. In addition to that, patient is also complaining of pain in the bilateral shoulders that prevents him from raising either arm above 90 degrees. He recently went to [facility] where initial workup was negative except for elevated ESR and CRP. Per the patient, he underwent a lumbar disc surgery L4-L5 with cage placement in 2022 for left footdrop and left leg abnormal sensation. Since the procedure, the weakness has improved but is still present and had increased sensation to touch but still feels like his left foot is always cold. Additionally he had a cervical fusion around ~1984. On presentation, his total CK levels were 31 and myoglobin 65, CRP was elevated at 124, ESR was elevated at 49 and Aldolase was 2.9. His CBC showed hemoglobin 11.0, hematocrit 33.8, WBC 12.5 and platelet count of 290. MRI cervical on 05/24/24 shows stenosis of C3-C5 with T2 hyperintensity at C4-C5 and MRI lumbar shows worse stenosis of L3-L4. Patient taken to the OR on 05/27/2024 for C3-C7 PCDF andextension of the previous lumbar fusion to L3. Past Medical History: Past Medical History: Diagnosis Date CAD (coronary artery disease) stents x2 from multiple angiograms Diabetes mellitus (HCC) Hyperlipidemia Hypertension Past Surgical History: Past Surgical History: Procedure Laterality Date CARDIAC CATHETERIZATION ', 87, CERVICAL FUSION with collar bone revision 1983 CERVICAL SPINE SURGERY 05/27/2024 POSTERIOR CERVICAL DECOMPRESSION FUSION CERVICAL THREE THROUGH SEVEN+EXTENSION OF POSTERIOR LUMBAR FUSION TO LUMBAR THREE LUMBAR DISC SURGERY cage placed 2022 Medications Prior to Admission: Prior to Admission medications Medication Sig Start Date End Date Taking? Authorizing Provider vitamin B-12 (CYANOCOBALAMIN) 1000 MCG tablet Take 1 tablet by mouth daily Yes Mark Ledezma MD insulin glargine (LANTUS) 100 UNIT/ML injection vial Inject 10 Units into the skin 2 times daily Yes Mark Ledezma MD Multiple Vitamins-Minerals (THERAPEUTIC MULTIVITAMIN-MINERALS) tablet Take 1 tablet by mouth daily Yes Mark Ledezma MD aspirin 81 MG chewable tablet Take 1 tablet by mouth daily Yes Mark Ledezma MD atorvastatin (LIPITOR) 20 MG tablet Take 1 tablet by mouth nightly Yes Mark Ledezma MD carvedilol (COREG) 25 MG tablet Take 1 tablet by mouth 2 times daily Yes Mark Ledezma MD cyclobenzaprine (FLEXERIL) 10 MG tablet Take 1 tablet by mouth at bedtime Yes Mark Ledezma MD glipiZIDE (GLUCOTROL) 10 MG tablet Take 1 tablet by mouth daily Yes Mark Ledezma MD hydrALAZINE (APRESOLINE) 50 MG tablet Take 1.5 tablets by mouth 2 times daily Yes Mark Ledezma MD isosorbide mononitrate (IMDUR) 30 MG extended release tablet Take 1 tablet by mouth daily Yes Mark Ledezma MD ferrous sulfate (IRON 325) 325 (65 Fe) MG tablet Take 1 tablet by mouth daily Mark Ledezma MD nitroGLYCERIN (NITROSTAT) 0.[address] 1 tablet under the tongue every 5 minutes as needed for Chest pain up to max of 3 total doses. If no relief after 1 dose, call 911. Mark Ledezma MD Allergies: Asa [aspirin] and Percocet [oxycodone-acetaminophen] Social History: Tobacco: reports that he has been smoking cigarettes. He has never used smokeless tobacco. Alcohol: reports no history of alcohol use. Drug Use: reports no history of drug use. Family History: History reviewed. No pertinent family history. Review of Systems: Review of Systems Constitutional: Negative for chills, diaphoresis, fatigue and fever. HENT: Negative for hearing loss and tinnitus. Eyes: Negative for visual disturbance. Respiratory: Negative for cough, shortness of breath and wheezing. Cardiovascular: Negative for chest pain and palpitations. Gastrointestinal: Negative for abdominal pain, constipation, diarrhea, nausea and vomiting. Musculoskeletal: Positive for neck pain and neck stiffness. Negative for myalgias. Minimal neck pain from surgery Neurological: Positive for weakness. Negative for dizziness, light-headedness, numbness and headaches. Chronic left foot weakness Physical Exam: BP (!) 156/79 Pulse 68 Temp 98.4 F (36.9 C) (Oral) Resp 13 Ht 1.651 m (5' 5 ) Wt 71.6 kg (157 lb 13.6 oz) SpO2 100% BMI 26.27 kg/m Temp (24hrs), Av.8 F (36.6 C), Min:96.8 F (36 C), Max:98.4 F (36.9 C) Recent Labs 05/27/24 1722 05/27/24 1936 05/27/24 2124 05/28/24 0811 POCGLU 184* 215* 248* 184* Intake/Output Summary (Last 24 hours) at 05/28/2024 1024 Last data filed at 05/28/2024 0509 Gross per 24 hour Intake 2550 ml Output 1635 ml Net 915 ml Neurologic Exam GENERAL Appears comfortable and in no distress HEENT NC/ AT MENTAL STATUS: Alert, oriented, no confusion, fluid speech, normal language, no aphasia or dysarthria CRANIAL NERVES: II - Visual ochoa intact to confrontation III,IV, - PERRL, EOMI, no ptosis V - intact facial sensation VII - Intact facial symmetry VIII - Intact hearing IX,X - Symmetrical palate XI - Symmetrical shoulder shrug XII - Midline tongue, no atrophy MOTOR FUNCTION: RUE: Significant for good strength of grade 5/5 in proximal and distal muscle groups LUE: Significant for good strength of grade 5/5 in proximal and distal muscle groups RLE: Significant for good strength of grade 5/5 in proximal and distal muscle groups LLE: Significant for good strength of grade 5/5 in proximal muscles Plantar flexion 5/5 Dorsiflexion 4/5 Normal bulk, normal tone and no involuntary movements, no tremor SENSORY FUNCTION: Intact sensation to touch in all extremities CEREBELLAR FUNCTION: No dysmetria or dysdiadochokinesia REFLEX FUNCTION: L. Biceps 2/4, R. Biceps 2/4 L. Patellar 2/4, R. Patellar 2/4 Negative babinski and negative larson's STATION and GAIT Not assessed Investigations: Laboratory Testing: Recent Results (from the past 24 hour(s)) Calcium, Ionized Collection Time: 05/27/24 5:22 PM Result Value Ref Range Calcium, Ionized 1.21 1.13 - 1.33 mmol/L Lactic Acid Collection Time: 05/27/24 5:22 PM Result Value Ref Range Lactic Acid, Whole Blood 1.4 0.7 - 2.1 mmol/L OPEN HEART PANEL Collection Time: 05/27/24 5:22 PM Result Value Ref Range pH, Arterial 7.284 (L) 7.350 - 7.450 pCO2, Arterial 40.0 32 - 45 mmHg pO2, Arterial 183.0 (H) 75 - 95 mmHg HCO3, Arterial 18.4 (L) 22 - 27 mmol/L Negative Base Excess, Art 7.2 (H) 0.0 - 2.0 mmol/L O2 Sat, Arterial 98.7 94 - 100 % Carboxyhemoglobin 1.9 0 - 5 % Pt Temp 35.6 pH, Art, Temp Adj 7.304 (L) 7.350 - 7.450 pCO2, Art, Temp Adj 37.4 32 - 45 pO2, Art, Temp Adj 177.0 (H) 75 - 95 mmHg Lux Test INFORMATION NOT PROVIDED FIO2 50% Hemoglobin 9.1 (L) 13.0 - 17.0 gm/dL Hematocrit 28.3 (L) 40.7 - 50.3 % POC Glucose 184 (H) 75 - 110 mg/dL Chloride, Whole Blood 116 (H) 98 - 110 mmol/L Potassium, Whole Blood 4.5 3.6 - 5.0 mmol/L Sodium, Whole Blood 138 136 - 145 mmol/L POC Glucose Fingerstick Collection Time: 05/27/24 7:36 PM Result Value Ref Range POC Glucose 215 (H) 75 - 110 mg/dL POC Glucose Fingerstick Collection Time: 05/27/24 9:24 PM Result Value Ref Range POC Glucose 248 (H) 75 - 110 mg/dL Basic Metabolic Panel w/ Reflex to MG Collection Time: 05/28/24 7:34 AM Result Value Ref Range Sodium 138 136 - 145 mmol/L Potassium 4.8 3.7 - 5.3 mmol/L Chloride 112 (H) 98 - 107 mmol/L CO2 16 (L) 20 - 31 mmol/L Anion Gap 10 9 - 16 mmol/L Glucose 198 (H) 74 - 99 mg/dL BUN 58 (H) 8 - 23 mg/dL Creatinine 1.9 (H) 0.70 - 1.20 mg/dL Est, Glom Filt Rate 36 (L) >60 mL/min/1.73m2 Calcium 8.0 (L) 8.6 - 10.4 mg/dL CBC with Auto Differential Collection Time: 05/28/24 7:34 AM Result Value Ref Range WBC 12.6 (H) 3.5 - 11.3 k/uL RBC 3.25 (L) 4.21 - 5.77 m/uL Hemoglobin 9.1 (L) 13.0 - 17.0 g/dL Hematocrit 32.1 (L) 40.7 - 50.3 % MCV 98.8 82.6 - 102.9 fL MCH 28.0 25.2 - 33.5 pg MCHC 28.3 (L) 28.4 - 34.8 g/dL RDW 12.8 11.8 - 14.4 % Platelets 189 138 - 453 k/uL MPV 10.4 8.1 - 13.5 fL NRBC Automated 0.0 0.0 per 100 WBC Neutrophils % PENDING % Lymphocytes % PENDING % Monocytes % PENDING % Eosinophils % PENDING % Basophils % PENDING % Immature Granulocytes % PENDING 0 % Neutrophils Absolute PENDING k/uL Lymphocytes Absolute PENDING k/uL Monocytes Absolute PENDING k/uL Eosinophils Absolute PENDING k/uL Basophils Absolute PENDING 0.0 - 0.2 k/uL Immature Granulocytes Absolute PENDING 0.00 - 0.30 k/uL POC Glucose Fingerstick Collection Time: 05/28/24 8:11 AM Result Value Ref Range POC Glucose 184 (H) 75 - 110 mg/dL Recent Labs 05/28/24 0734 WBC 12.6* RBC 3.25* HGB 9.1* HCT 32.1* MCV 98.8 MCH 28.0 MCHC 28.3* RDW 12.8 PLT 189 MPV 10.4 Recent Labs 05/27/24 0552 05/27/24 1722 05/28/24 0734 NA 139 < > 138 K 4.0 < > 4.8 CL 110* -- 112* CO2 20 -- 16* BUN 58* -- 58* CREATININE 1.9* -- 1.9* GLUCOSE 197* -- 198* CALCIUM 8.5* -- 8.0* BILITOT 0.2 -- -- ALKPHOS 81 -- -- AST 28 -- -- ALT 29 -- -- < > = values in this interval not displayed. Hemoglobin A1C Date Value Ref Range Status 05/26/2024 7.4 (H) 4.0 - 6.0 % Final Imaging: FLUORO FOR SURGICAL PROCEDURES Result Date: 05/27/2024 EXAMINATION: SPOT FLUOROSCOPIC IMAGES 05/27/2024 5:49 pm TECHNIQUE: CT fluoroscopy was provided by the radiology department for procedure. Radiologist was not present during examination. FLUOROSCOPY DOSE AND TYPE: 27.5 mGy. COMPARISON: None HISTORY: ORDERING SYSTEM PROVIDED HISTORY: POSTERIOR CERVICAL DECOMPRESSION FUSION CERVICAL THREE THROUGH SEVEN - O ARM TECHNOLOGIST PROVIDED HISTORY: POSTERIOR CERVICAL DECOMPRESSION FUSION CERVICAL THREE THROUGH SEVEN - O ARM Intraprocedural imaging. FINDINGS: Intraoperative CT fluoroscopic images are provided for review. The images demonstrate a large surgical defect in the soft tissues posterior to the lower lumbar spine. Bilateral pedicle screws are i n place at L3 and appear to be appropriately positioned. Status post interval explantation of the previously identified pedicle screws and vertical stabilization rods at L4-5. Status post L4-5 discectomy. A surgical wire is present in the posterior aspect of the central canal at the L3-4 interspaceand L4 levels. No fracture or other acute osseous abnormality identified. Intraprocedural CT fluoroscopic images as above. See separate procedure report for more information. Echo (TTE) complete (PRN contrast/bubble/strain/3D) Result Date: 05/26/2024 Left Ventricle: Mildly reduced left ventricular systolic function with a visually estimated EF of 45 - 50%. Left ventricle size is normal. Increased wall thickness. Findings consistent with mild concentric hypertrophy. Normal wall motion. Normal diastolic function. Aortic Valve: Trileaflet valve. Mitral Valve: Mildly thickened leaflets. Moderate regurgitation. MR PISA Radius: 0.8 cm, MR ERO: 0.21cm2, MR Volume: 41 mls. Mild stenosis noted. Image quality is adequate. CT LUMBAR SPINE WO CONTRAST Result Date: 05/25/2024 EXAMINATION: CT OF THE LUMBAR SPINE WITHOUT CONTRAST 05/25/2024 TECHNIQUE: CT of the lumbar spine was performed without the administration of intravenous contrast. Multiplanar reformatted images are provided for review. Adjustment of mA and/or kV according to patient size was utilized. Automated exposure control, iterative reconstruction, and/or weight based adjustment of the mA/kV was utilized toreduce the radiation dose to as low as reasonably achievable. COMPARISON: None HISTORY: ORDERING SYSTEM PROVIDED HISTORY: eval hardware TECHNOLOGIST PROVIDED HISTORY: eval hardware Reason for Exam: PAIN EVAL HARDWARE FINDINGS: BONES/ALIGNMENT: The vertebral body heights are maintained. There is posterior hardware fixation at L4-5 with associated laminectomy. The hardware is intact. There may be minimal lucency developing adjacent to the transpedicular screws at the L5 level. There is no spondylolisthesis. DEGENERATIVE CHANGES: The remaining disc spaces are maintained. There is mild multileveldegenerative facet hypertrophy. There is no significant bony canal stenosis. There is a degree of bilateral bony foraminal narrowing at L5-S1. SOFT TISSUES/RETROPERITONEUM: No paraspinal mass is seen. Posterior fixation at L4-5 with associated laminectomy and hardware is intact. Potential minimal lucency developing adjacent to the transpedicular screws at the L5 level. Multilevel degenerative facet hypertrophy with bilateral bony foraminal narrowing at L5-S1. MRI CERVICAL SPINE WO CONTRAST Result Date: 05/24/2024 EXAMINATION: MRI OF THE CERVICAL SPINE WITHOUT CONTRAST 05/24/2024 10:56 pm TECHNIQUE: Multiplanar multisequence MRI of the cervical spine was performed without the administration of intravenous contrast. COMPARISON: None. HISTORY: ORDERING SYSTEM PROVIDED HISTORY: assess for stenosis TECHNOLOGIST PROVIDED HISTORY: assess for stenosis Reason for Exam: assess for stenosis FINDINGS: Motion limited evaluation. BONES/ALIGNMENT: Vertebral heights are maintained. There is straightening of the cervicallordosis without spondylolisthesis. Edematous degenerative changes are present at C6-7. SPINAL CORD: Abnormal bilateral paracentral spinal cord T2 hyperintensity at the C4-5 level. No mass or abnormal fluid collection within the spinal canal. SOFT TISSUES: Paraspinal soft tissues are unremarkable. C2-C3: Disc height and signal maintained. No significant neural foraminal narrowing or spinal canal stenosis. C3-C4: Mild disc height loss and desiccation. Severe bilateral neural foraminal narrowing s econdary to uncovertebral hypertrophy. Severe spinal canal stenosis secondary to disc bulge and left posterior paracentral disc protrusion with flattening of the spinal cord. C4-C5: Mild disc height loss and desiccation. Severe bilateral neural foraminal narrowing secondary to uncovertebral hypertrophy. Severe spinal canal stenosis secondary to disc bulge with flattening of the spinal cord. C5-C6: Mild disc height loss and desiccation. Severe left and moderate right neural foraminal narrowing secondary to uncovertebral hypertrophy. Mild spinal canal stenosis secondary to disc bulge. C6-C7: Severe disc height loss and desiccation. Severe bilateral neural foraminal narrowing secondary to uncov ertebral hypertrophy. Moderate spinal canal stenosis secondary to disc bulge and ligamentum flavum hypertrophy. C7-T1: Mild disc height loss and desiccation. Mild left neural foraminal narrowing secondary to uncovertebral and facet hypertrophy. No right neural foraminal narrowing. Mild spinal canalstenosis secondary to disc bulge. 1. Motion limited evaluation. 2. Severe spinal canal stenosis at C3-4 and C4-5 with flattening of the spinal cord and abnormal bilateral paracentral cord T2 hyperintensity at the C4-5 level consistent with spondylotic myelomalacia, although a component of cord edema may be present. 3. Moderate spinal canal stenosis at C6-7. 4. Moderate and severe multilevel neural foraminal narrowing as detailed above. Vascular duplex lower extremity arteries right Result Date: 05/24/2024 Patent arteries of the right lower extremity with no evidence of significant stenosis. Vascular duplex lower extremity venous right Result Date: 05/24/2024 No evidence of deep vein or superficial vein thrombosis in the right lower extremity. XR SPINE ENTIRE (2-3 VIEWS) Result Date: 05/24/2024 EXAMINATION: TWO XRAY VIEWS SCOLIOSIS SERIES 05/24/2024 6:50 pm COMPARISON: MRI lumbar spine 05/24/2024. HISTORY: ORDERING SYSTEM PROVIDED HISTORY: standing Ap and lateral full spine -- C2 to pelvix & include both femoral heads TECHNOLOGIST PROVIDED HISTORY: standing Ap and lateral full spine --C2 to pelvix & include both femoral heads FINDINGS: Status post posterior fusion and discectomyat L4-5 without complication identified. Mild levoscoliosis of the lower thoracic spine with a Cobbangle of approximately 6 degrees. Mild dextroscoliosis of the lumbar spine with a Raza angle approximately 8 degrees. Normal alignment is otherwise maintained. The vertebral body heights are preserved. No fracture or other acute osseous abnormality identified. Mild multilevel degenerative disc disease throughout the thoracic and lumbar spine. The bilateral sacroiliac joints are intact. The bilateral hips are grossly unremarkable. The soft tissues are unremarkable. 1. Mild levoscoliosis of the lower thoracic spine and mild dextroscoliosis of the lumbar spine. 2. Status post posterior fusion and discectomy at L4-5 without complication identified. MRI BRAIN WO CONTRAST Result Date: 05/24/2024 EXAMINATION: MRI OF THE BRAIN WITHOUT CONTRAST 05/24/2024 3:24 pm TECHNIQUE: Multiplanar multisequence MRI of the brain was performed without the administration of intravenous contrast. COMPARISON: None. HISTORY: ORDERING SYSTEM PROVIDED HISTORY: Right leg weakness TECHNOLOGIST PROVIDED HISTORY: Right leg weakness What is the sedation requirement?->None Reason for Exam: Right leg weakness FINDINGS: INTRACRANIAL STRUCTURES/VENTRICLES: The sellar and suprasellar structures, optic chiasm, corpuscallosum, pineal gland, tectum, and midline brainstem structures are unremarkable. The craniocervical junction is unremarkable. There is no acute hemorrhage, mass effect, or midline shift. There is satisfactory overall bautista-white matter differentiation. There is chronic microvascular disease. The ventricular structures are symmetric and unremarkable. The infratentorial structures including the cerebellopontine angles and internal auditory canals are unremarkable. There is no abnormal restricteddiffusion. There is no abnormal blooming artifact on susceptibility weighted imaging. ORBITS: The visualized portion of the orbits demonstrate no acute abnormality. SINUSES: There is opacification ofthe left maxillary sinus likely related to chronic sinusitis. The mastoid air cells are normally aerated. BONES/SOFT TISSUES: The bone marrow signal intensity appears normal. The soft tissues demonstrate no acute abnormality. Chronic microvascular disease without acute intracranial abnormality. Chronic sinusitis of the leftmaxillary sinus. MRI LUMBAR SPINE WO CONTRAST Result Date: 05/24/2024 EXAMINATION: MRI OF THE LUMBAR SPINE WITHOUT CONTRAST, 05/24/2024 3:24 pm TECHNIQUE: Multiplanar multisequence MRI of the lumbar spine was performed without the administration of intravenous contrast.COMPARISON: None. HISTORY: ORDERING SYSTEM PROVIDED HISTORY: acute onset RLE severe, radiating pain/ allodynia TECHNOLOGIST PROVIDED HISTORY: acute onset RLE severe, radiating pain / allodynia What is the sedation requirement?->None Reason for Exam: acute onset RLE severe, radiating pain / allodynia FINDINGS: BONES/ALIGNMENT: The vertebral body heights are maintained. There is age-appropriatebone marrow signal. There is posterior fixation at L4-5 without complication. There is multilevel de generative disc disease at the remaining levels with loss of disc signal. There is no spondylolisthesis. SPINAL CORD: The conus terminates normally. SOFT TISSUES: No paraspinal mass identified. L1-L2: There is a circumferential disc bulge with facet hypertrophy. There is no canal stenosis or foraminal narrowing. L2-L3: There is a circumferential disc bulge with facet and ligamentous hypertrophy. There is no canal stenosis or foraminal narrowing. L3-L4: There is a circumferential disc bulge withfacet and ligamentous hypertrophy. There is canal stenosis measuring 6 mm in AP dimension. There isnarrowing of the lateral recesses. There is [id number] left and moderate right foraminal narrowing. L4-L5: There is a circumferential disc bulge with posterior laminectomy. There is no canal stenosis. There is moderate foraminal narrowing. L5-S1: There is a circumferential disc bulge with facet hypertrophy. There is no canal stenosis. There is moderate to severe left and severe right foraminal narrowing. Multilevel degenerative change with canal stenosis at L3-4. Foraminal narrowing as described above.Posterior fixation and laminectomy at L4-5 without complication. 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 / male who presented with a chief complaint of right bilateralshoulder and bilateral lower extremity pain with movement or weight bearing. He has a significant past medical history of lumbar spine surgery L4-L5 in 2022 and Cervical fusion around 1984, CAD s/p PTCA, type 2 diabetes mellitus, CKD stage III, HTN, HLD and is a current smoker. MRI cervical spine showed severe spinal canal stenosis at C3-4 and C4-5 with flattening of the spinal cord and abnormal bilateral paracentral cord T2 hyperintensity at the C4-5 level consistent with spondylotic myelomalacia. MRI lumbar showed canal stenosis measuring 6 mm in AP dimension and narrowing of the lateral recesses. Patient taken to the OR on 05/27/24 for C3-C7 PCDF and extension of posterior lumbar fusion to include L3. Plan: Cervical myelopathy s/p C3-C7 PCDF on 05/27/24 Lumbar stenosis s/p extension of posterior lumbar fusion to L3 on 05/27/24 POD #1 Cyclobenzaprine 10mg PO nightly Gabapentin 300mg PO BiD Neurosurgery recs appreciated Keep patient in rigid cervical collar. Xray of cervical and lumbar spine pending Heparin 5k units subQ Q8h PT/OT Elevated CRP and ESR CRP 124, ESR 49, Aldolase 2.9, total CK 31 MESHA negative Anti-ds DNA negative ANCA negative Leukocytosis POD1. WBC 12.6. Will monitor MEAGHAN on CKD stage III Improving MEAGHAN. eGFR 36, Cr 2.5 on admit > 1.9, BUN 58 Strict I/Os HTN BP goal <140/90 Started hydralazine 50 mg PO Q8h Continue Coreg 25mg BiD Labetalol 10mg IV Q6h PRN CAD TTE - EF 45-50% Continue Lipitor 20mg PO QD Continue imdur 30mg PO QD T2DM Insulin glargine 25 units SC BiD Insulin Lispro as per HDSS Follow-up further recommendations after discussing case with the attending. The plan was discussed with the patient, patient's family and the medical staff. Consultations: IP CONSULT TO NEUROLOGY IP CONSULT TO NEUROSURGERY IP CONSULT TO INTERNAL MEDICINE IP CONSULT TO CARDIOLOGY Patient is admitted as inpatient status because of co-morbidities listed above, severity of signs and symptoms as outlined, requirement for current medical therapies and most importantly because of direct risk to patient if care not provided in a hospital setting. SHAHIDA Morton IV 05/28/2024 10:24 AM Associated attestation - Lyn Culver DO - 05/28/2024 12:53 PM EDT Attending Physician Statement: I have discussed the case of Gage Lugo, including pertinent history and exam findings withthe resident. I have seen and examined the patient and the pablo elements of the encounter have been performed by me. I have reviewed medications, clinical laboratory, imaging and other diagnostic tests with the residents. I agree with the assessment, plan and orders as documented by the resident with changes made to the note as needed. This is a 74 year old male with history of CAD, DM, CKD, HTN, HLD, current smoker who presents with2 week history of RLE pain. He denies any trauma or falls or recent illness. ESR and CRP elevated, CPK WNL. Aldolase pending. MRI C and L spine completed- showed concern for C-spine compression. MRI L spine with multilevel DJD. Patient states symptoms improving on IV steroids and gabapentin Neurosurgery recs appreciated. Plan for OR. PT/OT. LE doppler negative. Discussed with family at bedside. S/p OR with Neurosurgery. S/p cervical decompression and fusion of C3-C7 and posterior lumbar fusion to L3. Lyn Culver, DO 05/28/2024 12:51 PM * Juan David Sigala RN - 05/27/2024 7:56 PM EDT Vomited with food particles, blood sugar of 215 - Dr. Gray aware and informed. No new orders * Jose Mckenna PA-C - 05/27/2024 7:52 PM EDT Neurosurgery Post op Progress Note SUBJECTIVE: Status post: 1. Posterior cervical decompression/fusion C3-7. 2. Extension of posterior lumbar fusion to L3. Patient seen at bedside. Rigid c-collar in place. Patient is very sleepy and lethargic. He will open his eyes when spoken to but falls asleep quickly thereafter. He moves all 4 extremities upon command. He denies the presence of any numbness, tingling, paralysis or paresthesia type pains to either upper or lower extremity. His pain appears to be well-controlled. Patient states that the problems with weakness, and tingling he has had to both upper and lower extremities appears to be significantly better after surgery than prior to surgery. While in recovery the patient has had 3 episodes of emesis. He appears to have vomitus of formed food. OBJECTIVE Physical exam VITALS: Vitals: 05/27/241927 BP: (!) 168/93 Pulse: 70 Resp: 18 Temp: (!) 96.1 F (35.6 C) SpO2: 99% INTAKE: Intake/Output Summary (Last 24 hours) at 05/27/20241952 Last data filed at 05/27/2024 1847 Gross per 24 hour Intake 2500 ml Output 1280 ml Net 1220 ml URINARY CATHETER OUTPUT (Dejesus): Urinary output contains approximately 100 mL of yellow-colored urine in Dejesus reservoir DRAIN/TUBE OUTPUT: NIC drain to the cervical spine appears to be holding suction and working. Outputis approximately 25 mL of blood. NIC drain to the lumbar spine also appears to be holding suction and working. Output appears to be 50 mL of blood in reservoir. No evidence of DVT seen on physical exam. Neurological exam reveals Responds to voice and Responds to tactile stimuli moves all extremities well, no involuntary movements, and reflexes at knee and ankle intact cranial nerves II through XII intact, motor and sensory grossly normal bilaterally, normal muscle tone, no tremors, strength 5/5. the upper and lower extremities normal 5/5 strength in all tested muscle groups, no fasciculations noted, and normal resting muscle tone normal light touch sensation and normal position sensation Wound Post op wound: posterior cervical spine and lumbar spine well approximated incision clean, dry, and no drainage Closed w/ crystal with overlying bacitracin ointment and island dressing. Data LABS: Lab Results Component Value Date WBC 17.5 (H) 05/26/2024 HGB 9.1 (L) 05/27/2024 HCT 28.3 (L) 05/27/2024 MCV 85.8 05/26/2024 PLT 225 05/26/2024 Lab Results Component Value Date NA 138 05/27/2024 K 4.5 05/27/2024 CL 110 (H) 05/27/2024 CO2 20 05/27/2024 Lab Results Component Value Date BUN 58 (H) 05/27/2024 Lab Results Component Value Date CREATININE 1.9 (H) 05/27/2024 ASSESSMENT AND PLAN 1. Okay to transfer patient from recovery to floor if stable. 2. IV antibiotics for 24 hours and appropriate analgesics for pain. 3. Will obtain radiographs of the cervical spine together with radiographs of the lumbar spine tomorrow. 4. Consultations to physical therapy and Occupational Therapy. 5. Neurology and internal medicine on board. 6. We will start chemical DVT prophylaxis, i.e. Lovenox tomorrow. For now SCDs. 7. Antiemetics as needed for nausea and emesis. Aspiration precautions 8. Patient will need a secondary neurological survey once sedation has worn off. 9. We will continue to closely follow this patient while he remains in house. * Tammi Rincon MD - 05/27/2024 8:45 AM EDT Images from the original note were not included. [facility] Internal Medicine Teaching Residency Program Inpatient Daily Progress Note Patient: Gage Lugo Date of : 1950 Acct: [id number] Room: [facility] RM/NONE Admit date: 05/23/2024 Today's date: 05/27/24 Number of days in the hospital: 4 SUBJECTIVE CC: Pain (Bilat shoulders, back and bilat legs) Per chart review the blood pressure was running high. Blood glucose levels within range for surgical clearance. ROS: Unable to review since patient was in OR at the time of evaluation. BRIEF HISTORY The patient is a pleasant 74 y.o. male presents with a chief complaint of neurogenic right foot pain. Patient was admitted under neurosurgery service for surgical management of neuropathic pain. IM was consulted for the management of hypertension, type 2 diabetes mellitus, CKD stage III, chronic tobacco use. Last Echo EF of 50 to 55% in 2020 Last Cath 2006, CAD s/p PCI with 2 stents Repeat RCA stent 2016 Last lipid profile Cholesterol 119, HDL 27, TG 382, LDL 16 (10/2023) Last HbA1C 7.9% Hospital Course: The patient complains of right foot pain from [facility] which is sudden, episodic and intense. It is not related to position of movement of the foot and shoots up the leg all the way to the buttocks. The foot was not tender to touch however he had multiple episodes of this pain and was unable to bear weight on it. The patient also complained of bilateral upper extremity weakness particular ly in the shoulders. Patient had increased ESR and CRP on admission, his other labs were unremarkable. Decision was made to operate on the patient cervical as well as lumbar spine and get medical clearance. The patient uses 10 units of insulin glargine at home twice daily. He is also on glipizide for his blood glucose control. The patient uses CGM to monitor blood glucose levels and states that they fluctuate between 110 to 120 mg/dL. The patient is also on aspirin, Lipitor, Coreg, hydralazine. He is on nitrates as needed for cardiac chest pain. OBJECTIVE Vital Signs: BP (!) 172/84 Pulse 74 Temp 96.8 F (36 C) (Temporal) Resp 18 Ht 1.651 m (5' 5 ) Wt 71.5 kg (157 lb 10.1 oz) SpO2 97% BMI 26.23 kg/m Temp (24hrs), Av.8 F (36.6 C), Min:96.8 F (36 C), Max:98.3 F (36.8 C) In: 1780 Out: 1800 [Urine:1800] Physical Exam: Unable to perform as patient was in OR. Medications: Scheduled Medications: [Transfer Hold] insulin glargine 25 Units SubCUTAneous BID [Transfer Hold] cyclobenzaprine 10 mg Oral Nightly [Transfer Hold] atorvastatin 20 mg Oral Nightly [Transfer Hold] insulin lispro 0-16 Units SubCUTAneous TID WC [Transfer Hold] insulin lispro 0-4 Units SubCUTAneous Nightly [Transfer Hold] hydrALAZINE 50 mg Oral 3 times per day [Transfer Hold] carvedilol 25 mg Oral BID WC [Transfer Hold] isosorbide mononitrate 30 mg Oral Daily [Transfer Hold] gabapentin 300 mg Oral BID [Held by provider] methylPREDNISolone 60 mg IntraVENous Q6H [Transfer Hold] sodium chloride flush 5-40 mL IntraVENous 2 times per day [Held by provider] heparin (porcine) 5,000 Units SubCUTAneous 3 times per day Continuous Infusions: sod chloride IRR soln [Transfer Hold] dextrose [Transfer Hold] sodium chloride 75 mL/hr at 05/27/24 0225 [Transfer Hold] sodium chloride PRN Medicationssod chloride IRR soln, , Continuous PRN lidocaine-EPINEPHrine, , PRN gelatin adsorbable, , PRN thrombin, , PRN bacitracin, , PRN vancomycin, , PRN BUPivacaine liposome, , PRN sodium chloride flush, , PRN [Transfer Hold] glucose, 4 tablet, PRN [Transfer Hold] dextrose bolus, 125 mL, PRN Or [Transfer Hold] dextrose bolus, 250 mL, PRN [Transfer Hold] glucagon (rDNA), 1 mg, PRN [Transfer Hold] dextrose, , Continuous PRN [Transfer Hold] labetalol, 10 mg, Q6H PRN [Transfer Hold] sodium chloride flush, 5-40 mL, PRN [Transfer Hold] sodium chloride, , PRN [Transfer Hold] LORazepam, 4 mg, Q5 Min PRN [Transfer Hold] ondansetron, 4 mg, Q8H PRN Or [Transfer Hold] ondansetron, 4 mg, Q6H PRN [Transfer Hold] polyethylene glycol, 17 g, Daily PRN Diagnostic Labs: CBC: Recent Labs 05/25/24 0700 05/26/24 0553 WBC 6.9 17.5* RBC 3.93* 3.65* HGB 11.0* 10.3* HCT 33.8* 31.3* MCV 86.0 85.8 RDW 12.2 12.2 PLT 235 225 BMP: Recent Labs 05/25/24 0700 05/26/24 0553 05/27/24 0552 NA 135* 136 139 K 4.2 4.2 4.0 CL 105 109* 110* CO2 17* 18* 20 BUN 60* 55* 58* CREATININE 2.6* 1.9* 1.9* BNP: No results for input(s): BNP in the last 72 hours. PT/INR: No results for input(s): PROTIME , INR in the last 72 hours. APTT: No results for input(s): APTT in the last 72 hours. CARDIAC ENZYMES: No results for input(s): CKMB , CKMBINDEX , TROPONINI in the last 72 hours. Invalid input(s): CKTOTAL;3 FASTING LIPID PANEL:No results found for: CHOL , HDL , TRIG LIVER PROFILE: Recent Labs 05/25/24 0700 05/26/24 0553 05/27/24 0552 AST 26 25 28 ALT 22 22 29 BILITOT 0.4 0.3 0.2 ALKPHOS 94 84 81 MICROBIOLOGY: Lab Results Component Value Date/Time CULTURE NO GROWTH 05/23/2024 11:26 PM Imaging: CT LUMBAR SPINE WO CONTRAST Result Date: 05/25/2024 Posterior fixation at L4-5 with associated laminectomy and hardware is intact. Potential minimal lucency developing adjacent to the transpedicular screws at the L5 level. Multilevel degenerative facet hypertrophy with bilateral bony foraminal narrowing at L5-S1. MRI CERVICAL SPINE WO CONTRAST Result Date: 05/24/2024 1. Motion limited evaluation. 2. Severe spinal canal stenosis at C3-4 and C4-5 with flattening of the spinal cord and abnormal bilateral paracentral cord T2 hyperintensity at the C4-5 level consistent with spondylotic myelomalacia, although a component of cord edema may be present. 3. Moderate spinal canal stenosis at C6-7. 4. Moderate and severe multilevel neural foraminal narrowing as detailed above. XR SPINE ENTIRE (2-3 VIEWS) Result Date: 05/24/2024 1. Mild levoscoliosis of the lower thoracic spine and mild dextroscoliosis of the lumbar spine. 2. Status post posterior fusion and discectomy at L4-5 without complication identified. MRI BRAIN WO CONTRAST Result Date: 05/24/2024 Chronic microvascular disease without acute intracranial abnormality. Chronic sinusitis of the leftmaxillary sinus. MRI LUMBAR SPINE WO CONTRAST Result Date: 05/24/2024 Multilevel degenerative change with canal stenosis at L3-4. Foraminal narrowing as described above.Posterior fixation and laminectomy at L4-5 without complication. 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 * Type 2 diabetes mellitus Serum glucose is 300 to 350 mg/dl Was taking Lantus 10 units OD and Glipizide 10 mg OD Lantus 20 twice daily High-dose sliding scale POCT checks pre meal QID Essential hypertension Hydralazine 50 mg TID CAD s/p PTCA RCA bare metal stent revision 2016, History of NM Prior echo in 2020 shows EF 50-55% Aspirin 81 mg, Lipitor 20 mg nightly Carvedilol 25 mg BID Imdur 30 mg Isosorbide nitrate PRN Duplex scan of lower extremities negative for any obstruction Chronic kidney disease stage 3b GFR 28 mL/min Creatinine 2.6 Secondary to uncontrolled type 2 diabetes Degenerative disc disease L3-L4 canal stenosis S/p posterior fixation and laminectomy L4-L5 2022 S/p cervical spinal surgery in 1984 Gabapentin 300 mg TID Cyclobenzaprine 10 mg OD Cervical spinal stenosis MRI spine 05/24 showed stenosis at C3-C4 level with flattening of spinal cord and possible cord edema Injection Solu-Medrol 60 mg IV given Plan for cervical as well as lumbar spinal surgery per neurosurgery Diet: Diabetic diet DVT prophylaxis: Heparin subq Tammi Rincon MD PGY-1, Internal Medicine Resident [facility], [place] 05/27/2024, 3:30 PM * Rafat Murillo MD - 05/26/2024 8:45 AM EDT [facility] Neurology IN-PATIENT SERVICE [facility] Progress Note Date: 05/26/2024 Patient name: Gage Lugo Date of admission: 05/23/2024 6:12 PM Account: [id number] Date of : 1950 PCP: Loltia Adorno DO Room: [address] [place] [address] Code Status: Full Code Chief Complaint: Chief Complaint Patient presents with Pain Bilat shoulders, back and bilat legs Interval hx: The patient was seen and examined at bedside. Is vitally stable, alert and oriented x . No acute events overnight. Brief History of Present Illness: The patient is a 74 y.o. / male who presents with Pain in the Bilateral shoulders, back and bilateral legs. He has a past medical history significant for CAD s/p PTCA, type 2 diabetesmellitus, CKD stage III, HTN, HLD and is a current smoker. He initially presented to the ED with a chief complaint of pain, worse in his right leg with inability to bear weight on it. Patient states this pain is a radicular pain with movement that starts in his foot and shoots up the back of the leg into the buttocks and lower back. The pain occurred all of a sudden on 05/23 when he woke up and isonly present with movement or touch/pressure on the extremity. It is a sharp 10/10 pain when it does occur. In addition to that, patient is also complaining of pain in the bilateral shoulders that prevents him from raising either arm above 90 degrees. He recently went to [facility] where initial workup was negative except for elevated ESR and CRP. Per the patient, he underwent a lumbar disc surgery L4-L5 with cage placement in 2022 for left footdrop and left leg abnormal sensation. Since the procedure, the weakness has improved but is still present and had increased sensation to touch but still feels like his left foot is always cold. Additionally he had a cervical fusion around ~1984. On presentation, his total CK levels were 31 and myoglobin 65, CRP was elevated at 124, ESR was elevated at 49 and Aldolase was 2.9. His CBC showed hemoglobin 11.0, hematocrit 33.8, WBC 12.5 and platelet count of 290. MRI cervical on 05/24/24 shows stenosis of C3-C5 with T2 hyperintensity at C4-C5 and MRI lumbar shows worse stenosis of L3-L4. Neurosurgery plans for OR on . Past Medical History: Past Medical History: Diagnosis Date CAD (coronary artery disease) stents x2 from multiple angiograms Diabetes mellitus (HCC) Hyperlipidemia Hypertension Past Surgical History: Past Surgical History: Procedure Laterality Date CARDIAC CATHETERIZATION ', , CERVICAL FUSION with collar bone revision 1983 LUMBAR DISC SURGERY cage placed 2022 Medications Prior to Admission: Prior to Admission medications Medication Sig Start Date End Date Taking? Authorizing Provider vitamin B-12 (CYANOCOBALAMIN) 1000 MCG tablet Take 1 tablet by mouth daily Yes Mark Ledezma MD insulin glargine (LANTUS) 100 UNIT/ML injection vial Inject 10 Units into the skin 2 times daily Yes Mark Ledezma MD Multiple Vitamins-Minerals (THERAPEUTIC MULTIVITAMIN-MINERALS) tablet Take 1 tablet by mouth daily Yes Mark Ledezma MD aspirin 81 MG chewable tablet Take 1 tablet by mouth daily Yes Mark Ledezma MD atorvastatin (LIPITOR) 20 MG tablet Take 1 tablet by mouth nightly Yes Mark Ledezma MD carvedilol (COREG) 25 MG tablet Take 1 tablet by mouth 2 times daily Yes Mark Ledezma MD cyclobenzaprine (FLEXERIL) 10 MG tablet Take 1 tablet by mouth at bedtime Yes Mark Ledezma MD glipiZIDE (GLUCOTROL) 10 MG tablet Take 1 tablet by mouth daily Yes Mark Ledezma MD hydrALAZINE (APRESOLINE) 50 MG tablet Take 1.5 tablets by mouth 2 times daily Yes Mark Ledezma MD isosorbide mononitrate (IMDUR) 30 MG extended release tablet Take 1 tablet by mouth daily Yes Mark Ledezma MD ferrous sulfate (IRON 325) 325 (65 Fe) MG tablet Take 1 tablet by mouth daily Mark Ledezma MD nitroGLYCERIN (NITROSTAT) 0.[address] 1 tablet under the tongue every 5 minutes as needed for Chest pain up to max of 3 total doses. If no relief after 1 dose, call 911. Mark Ledezma MD Allergies: Asa [aspirin] and Percocet [oxycodone-acetaminophen] Social History: Tobacco: reports that he has been smoking cigarettes. He has never used smokeless tobacco. Alcohol: reports no history of alcohol use. Drug Use: reports no history of drug use. Family History: History reviewed. No pertinent family history. Review of Systems: Review of Systems Constitutional: Negative for activity change, chills, fatigue and fever. Respiratory: Negative for cough, shortness of breath, wheezing and stridor. Cardiovascular: Negative for chest pain, palpitations and leg swelling. Gastrointestinal: Negative for abdominal distention, abdominal pain, constipation, diarrhea, nauseaand vomiting. Neurological: Negative for dizziness, tremors, seizures, syncope, speech difficulty, weakness, light-headedness, numbness and headaches. Physical Exam: BP (!) 145/83 Pulse 77 Temp (!) 96.6 F (35.9 C) (Oral) Resp 15 Ht 1.651 m (5' 5 ) Wt 71.9kg (158 lb 8.2 oz) SpO2 98% BMI 26.38 kg/m Temp (24hrs), Av.5 F (36.4 C), Min:96.6 F (35.9 C), Max:97.9 F (36.6 C) Recent Labs 05/25/24 1143 05/25/24 1623 05/25/24 1946 05/26/24 0803 POCGLU 386* 295* 232* 268* Intake/Output Summary (Last 24 hours) at 05/26/2024 0846 Last data filed at 05/25/2024 1604 Gross per 24 hour Intake -- Output 600 ml Net -600 ml Neurologic Exam GENERAL Appears comfortable and in no distress HEENT NC/ AT HEART S1 and S2 heard; palpation of pulses: radial pulse NECK Supple and no bruits heard MENTAL STATUS: Alert, oriented, intact memory, no confusion, normal speech, normal language, no hallucination or delusion CRANIAL NERVES: II - Visual ochoa intact to confrontation III,IV, - PERR, EOMs full, no ptosis V - Normal facial sensation VII - Normal facial symmetry VIII - Intact hearing IX,X - Symmetrical palate XI - Symmetrical shoulder shrug XII - Midline tongue, no atrophy MOTOR FUNCTION: RUE: Significant for good strength of grade 5/5 in proximal and distal muscle groups LUE: Significant for good strength of grade 5/5 in proximal and distal muscle groups RLE: Significant for good strength of grade 5/5 in proximal and distal muscle groups LLE: Significant for good strength of grade 5/5 in proximal and distal muscle groups Normal bulk, normal tone and no involuntary movements, no tremor SENSORY FUNCTION: Normal touch, normal pinprick, normal vibration, normal proprioception CEREBELLAR FUNCTION: Intact fine motor control over upper limbs and lower limbs REFLEX FUNCTION: Symmetric in upper and lower extremities STATION and GAIT Deferred Investigations: Laboratory Testing: Recent Results (from the past 24 hour(s)) POC Glucose Fingerstick Collection Time: 05/25/24 9:00 AM Result Value Ref Range POC Glucose 376 (H) 75 - 110 mg/dL POC Glucose Fingerstick Collection Time: 05/25/24 11:43 AM Result Value Ref Range POC Glucose 386 (H) 75 - 110 mg/dL EKG 12 Lead Collection Time: 05/25/24 3:49 PM Result Value Ref Range Ventricular Rate 72 BPM Atrial Rate 72 BPM P-R Interval 118 ms QRS Duration 96 ms Q-T Interval 416 ms QTc Calculation (Bazett) 455 ms P Deal 37 degrees R Deal 27 degrees T Deal -37 degrees POC Glucose Fingerstick Collection Time: 05/25/24 4:23 PM Result Value Ref Range POC Glucose 295 (H) 75 - 110 mg/dL POC Glucose Fingerstick Collection Time: 05/25/24 7:46 PM Result Value Ref Range POC Glucose 232 (H) 75 - 110 mg/dL CBC with Auto Differential Collection Time: 05/26/24 5:53 AM Result Value Ref Range WBC 17.5 (H) 3.5 - 11.3 k/uL RBC 3.65 (L) 4.21 - 5.77 m/uL Hemoglobin 10.3 (L) 13.0 - 17.0 g/dL Hematocrit 31.3 (L) 40.7 - 50.3 % MCV 85.8 82.6 - 102.9 fL MCH 28.2 25.2 - 33.5 pg MCHC 32.9 28.4 - 34.8 g/dL RDW 12.2 11.8 - 14.4 % Platelets 225 138 - 453 k/uL MPV 10.5 8.1 - 13.5 fL NRBC Automated 0.0 0.0 per 100 WBC Neutrophils % 93 (H) 36 - 65 % Lymphocytes % 4 (L) 24 - 43 % Monocytes % 2 (L) 3 - 12 % Eosinophils % 0 (L) 1 - 4 % Basophils % 0 0 - 2 % Immature Granulocytes % 1 (H) 0 % Neutrophils Absolute 16.19 (H) 1.50 - 8.10 k/uL Lymphocytes Absolute 0.72 (L) 1.10 - 3.70 k/uL Monocytes Absolute 0.41 0.10 - 1.20 k/uL Eosinophils Absolute <0.03 0.00 - 0.44 k/uL Basophils Absolute <0.03 0.00 - 0.20 k/uL Immature Granulocytes Absolute 0.16 0.00 - 0.30 k/uL Comprehensive Metabolic Panel w/ Reflex to MG Collection Time: 05/26/24 5:53 AM Result Value Ref Range Sodium 136 136 - 145 mmol/L Potassium 4.2 3.7 - 5.3 mmol/L Chloride 109 (H) 98 - 107 mmol/L CO2 18 (L) 20 - 31 mmol/L Anion Gap 9 9 - 16 mmol/L Glucose 262 (H) 74 - 99 mg/dL BUN 55 (H) 8 - 23 mg/dL Creatinine 1.9 (H) 0.70 - 1.20 mg/dL Est, Glom Filt Rate 37 (L) >60 mL/min/1.73m2 Calcium 8.6 8.6 - 10.4 mg/dL Total Protein 5.8 (L) 6.6 - 8.7 g/dL Albumin 3.0 (L) 3.5 - 5.2 g/dL Albumin/Globulin Ratio 1.0 1.0 - 2.5 Total Bilirubin 0.3 0.00 - 1.20 mg/dL Alkaline Phosphatase 84 40 - 129 U/L ALT 22 10 - 50 U/L AST 25 10 - 50 U/L POC Glucose Fingerstick Collection Time: 05/26/24 8:03 AM Result Value Ref Range POC Glucose 268 (H) 75 - 110 mg/dL Recent Labs 05/26/24 0553 WBC 17.5* RBC 3.65* HGB 10.3* HCT 31.3* MCV 85.8 MCH 28.2 MCHC 32.9 RDW 12.2 PLT 225 MPV 10.5 Recent Labs 05/26/24 0553 NA 136 K 4.2 CL 109* CO2 18* BUN 55* CREATININE 1.9* GLUCOSE 262* CALCIUM 8.6 BILITOT 0.3 ALKPHOS 84 AST 25 ALT 22 No results found for: LABA1C Imaging: CT LUMBAR SPINE WO CONTRAST Result Date: 05/25/2024 EXAMINATION: CT OF THE LUMBAR SPINE WITHOUT CONTRAST 05/25/2024 TECHNIQUE: CT of the lumbar spine was performed without the administration of intravenous contrast. Multiplanar reformatted images are provided for review. Adjustment of mA and/or kV according to patient size was utilized. Automated exposure control, iterative reconstruction, and/or weight based adjustment of the mA/kV was utilized toreduce the radiation dose to as low as reasonably achievable. COMPARISON: None HISTORY: ORDERING SYSTEM PROVIDED HISTORY: eval hardware TECHNOLOGIST PROVIDED HISTORY: eval hardware Reason for Exam: PAIN EVAL HARDWARE FINDINGS: BONES/ALIGNMENT: The vertebral body heights are maintained. There is posterior hardware fixation at L4-5 with associated laminectomy. The hardware is intact. There may be minimal lucency developing adjacent to the transpedicular screws at the L5 level. There is no spondylolisthesis. DEGENERATIVE CHANGES: The remaining disc spaces are maintained. There is mild multileveldegenerative facet hypertrophy. There is no significant bony canal stenosis. There is a degree of bilateral bony foraminal narrowing at L5-S1. SOFT TISSUES/RETROPERITONEUM: No paraspinal mass is seen. Posterior fixation at L4-5 with associated laminectomy and hardware is intact. Potential minimal lucency developing adjacent to the transpedicular screws at the L5 level. Multilevel degenerative facet hypertrophy with bilateral bony foraminal narrowing at L5-S1. MRI CERVICAL SPINE WO CONTRAST Result Date: 05/24/2024 EXAMINATION: MRI OF THE CERVICAL SPINE WITHOUT CONTRAST 05/24/2024 10:56 pm TECHNIQUE: Multiplanar multisequence MRI of the cervical spine was performed without the administration of intravenous contrast. COMPARISON: None. HISTORY: ORDERING SYSTEM PROVIDED HISTORY: assess for stenosis TECHNOLOGIST PROVIDED HISTORY: assess for stenosis Reason for Exam: assess for stenosis FINDINGS: Motion limited evaluation. BONES/ALIGNMENT: Vertebral heights are maintained. There is straightening of the cervicallordosis without spondylolisthesis. Edematous degenerative changes are present at C6-7. SPINAL CORD: Abnormal bilateral paracentral spinal cord T2 hyperintensity at the C4-5 level. No mass or abnormal fluid collection within the spinal canal. SOFT TISSUES: Paraspinal soft tissues are unremarkable. C2-C3: Disc height and signal maintained. No significant neural foraminal narrowing or spinal canal stenosis. C3-C4: Mild disc height loss and desiccation. Severe bilateral neural foraminal narrowing s econdary to uncovertebral hypertrophy. Severe spinal canal stenosis secondary to disc bulge and left posterior paracentral disc protrusion with flattening of the spinal cord. C4-C5: Mild disc height loss and desiccation. Severe bilateral neural foraminal narrowing secondary to uncovertebral hypertrophy. Severe spinal canal stenosis secondary to disc bulge with flattening of the spinal cord. C5-C6: Mild disc height loss and desiccation. Severe left and moderate right neural foraminal narrowing secondary to uncovertebral hypertrophy. Mild spinal canal stenosis secondary to disc bulge. C6-C7: Severe disc height loss and desiccation. Severe bilateral neural foraminal narrowing secondary to uncov ertebral hypertrophy. Moderate spinal canal stenosis secondary to disc bulge and ligamentum flavum hypertrophy. C7-T1: Mild disc height loss and desiccation. Mild left neural foraminal narrowing secondary to uncovertebral and facet hypertrophy. No right neural foraminal narrowing. Mild spinal canalstenosis secondary to disc bulge. 1. Motion limited evaluation. 2. Severe spinal canal stenosis at C3-4 and C4-5 with flattening of the spinal cord and abnormal bilateral paracentral cord T2 hyperintensity at the C4-5 level consistent with spondylotic myelomalacia, although a component of cord edema may be present. 3. Moderate spinal canal stenosis at C6-7. 4. Moderate and severe multilevel neural foraminal narrowing as detailed above. Vascular duplex lower extremity arteries right Result Date: 05/24/2024 Patent arteries of the right lower extremity with no evidence of significant stenosis. Vascular duplex lower extremity venous right Result Date: 05/24/2024 No evidence of deep vein or superficial vein thrombosis in the right lower extremity. XR SPINE ENTIRE (2-3 VIEWS) Result Date: 05/24/2024 EXAMINATION: TWO XRAY VIEWS SCOLIOSIS SERIES 05/24/2024 6:50 pm COMPARISON: MRI lumbar spine 05/24/2024. HISTORY: ORDERING SYSTEM PROVIDED HISTORY: standing Ap and lateral full spine -- C2 to pelvix & include both femoral heads TECHNOLOGIST PROVIDED HISTORY: standing Ap and lateral full spine --C2 to pelvix & include both femoral heads FINDINGS: Status post posterior fusion and discectomyat L4-5 without complication identified. Mild levoscoliosis of the lower thoracic spine with a Cobbangle of approximately 6 degrees. Mild dextroscoliosis of the lumbar spine with a Raza angle approximately 8 degrees. Normal alignment is otherwise maintained. The vertebral body heights are preserved. No fracture or other acute osseous abnormality identified. Mild multilevel degenerative disc disease throughout the thoracic and lumbar spine. The bilateral sacroiliac joints are intact. The bilateral hips are grossly unremarkable. The soft tissues are unremarkable. 1. Mild levoscoliosis of the lower thoracic spine and mild dextroscoliosis of the lumbar spine. 2. Status post posterior fusion and discectomy at L4-5 without complication identified. MRI BRAIN WO CONTRAST Result Date: 05/24/2024 EXAMINATION: MRI OF THE BRAIN WITHOUT CONTRAST 05/24/2024 3:24 pm TECHNIQUE: Multiplanar multisequence MRI of the brain was performed without the administration of intravenous contrast. COMPARISON: None. HISTORY: ORDERING SYSTEM PROVIDED HISTORY: Right leg weakness TECHNOLOGIST PROVIDED HISTORY: Right leg weakness What is the sedation requirement?->None Reason for Exam: Right leg weakness FINDINGS: INTRACRANIAL STRUCTURES/VENTRICLES: The sellar and suprasellar structures, optic chiasm, corpuscallosum, pineal gland, tectum, and midline brainstem structures are unremarkable. The craniocervical junction is unremarkable. There is no acute hemorrhage, mass effect, or midline shift. There is satisfactory overall bautista-white matter differentiation. There is chronic microvascular disease. The ventricular structures are symmetric and unremarkable. The infratentorial structures including the cerebellopontine angles and internal auditory canals are unremarkable. There is no abnormal restricteddiffusion. There is no abnormal blooming artifact on susceptibility weighted imaging. ORBITS: The visualized portion of the orbits demonstrate no acute abnormality. SINUSES: There is opacification ofthe left maxillary sinus likely related to chronic sinusitis. The mastoid air cells are normally aerated. BONES/SOFT TISSUES: The bone marrow signal intensity appears normal. The soft tissues demonstrate no acute abnormality. Chronic microvascular disease without acute intracranial abnormality. Chronic sinusitis of the leftmaxillary sinus. MRI LUMBAR SPINE WO CONTRAST Result Date: 05/24/2024 EXAMINATION: MRI OF THE LUMBAR SPINE WITHOUT CONTRAST, 05/24/2024 3:24 pm TECHNIQUE: Multiplanar multisequence MRI of the lumbar spine was performed without the administration of intravenous contrast.COMPARISON: None. HISTORY: ORDERING SYSTEM PROVIDED HISTORY: acute onset RLE severe, radiating pain/ allodynia TECHNOLOGIST PROVIDED HISTORY: acute onset RLE severe, radiating pain / allodynia What is the sedation requirement?->None Reason for Exam: acute onset RLE severe, radiating pain / allodynia FINDINGS: BONES/ALIGNMENT: The vertebral body heights are maintained. There is age-appropriatebone marrow signal. There is posterior fixation at L4-5 without complication. There is multilevel de generative disc disease at the remaining levels with loss of disc signal. There is no spondylolisthesis. SPINAL CORD: The conus terminates normally. SOFT TISSUES: No paraspinal mass identified. L1-L2: There is a circumferential disc bulge with facet hypertrophy. There is no canal stenosis or foraminal narrowing. L2-L3: There is a circumferential disc bulge with facet and ligamentous hypertrophy. There is no canal stenosis or foraminal narrowing. L3-L4: There is a circumferential disc bulge withfacet and ligamentous hypertrophy. There is canal stenosis measuring 6 mm in AP dimension. There isnarrowing of the lateral recesses. There is hyva-db-pbjrrlgs left and moderate right foraminal narrowing. L4-L5: There is a circumferential disc bulge with posterior laminectomy. There is no canal stenosis. There is moderate foraminal narrowing. L5-S1: There is a circumferential disc bulge with facet hypertrophy. There is no canal stenosis. There is moderate to severe left and severe right foraminal narrowing. Multilevel degenerative change with canal stenosis at L3-4. Foraminal narrowing as described above.Posterior fixation and laminectomy at L4-5 without complication. Assessment : Primary Problem Neurogenic pain of right lower extremity Active Hospital Problems Diagnosis Date Noted Lumbar stenosis with neurogenic claudication [M48.062] 05/25/2024 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 / male who presented with a chief complaint of right bilateralshoulder and bilateral lower extremity pain with movement or weight bearing. He has a significant past medical history of lumbar spine surgery L4-L5 in 2022 and Cervical fusion around 1984, CAD s/p PTCA, type 2 diabetes mellitus, CKD stage III, HTN, HLD and is a current smoker. MRI cervical spine showed severe spinal canal stenosis at C3-4 and C4-5 with flattening of the spinal cord and abnormal bilateral paracentral cord T2 hyperintensity at the C4-5 level consistent with spondylotic myelomalacia. MRI lumbar showed canal stenosis measuring 6 mm in AP dimension and narrowing of the lateral recesses. Plan: Cervical myelopathy and Lumbar radiculopathy Solumedrol on hold Gabapentin 300mg PO BiD Cyclobenzaprine 10mg PO nightly Neurosurgery on board. Planning to take to OR on . PT/OT IM and cardiology consulted for clearance. Elevated CRP and ESR CRP 124, ESR 49, Aldolase 2.9, total CK 31 MESHA negative Anti-ds DNA negative ANCA pending Leukocytosis Likely steroid induced. WBC 6.9 > 17.5 MEAGHAN on CKD stage III Improving MEAGHAN. eGFR 37, Cr 1.9, BUN 55 Strict I/Os HTN BP goal <140/90 Started hydralazine 50 mg PO Q8h Continue Coreg 25mg BiD Labetalol 10mg IV Q6h PRN CAD TTE results pending Continue Lipitor 20mg PO QD Continue imdur 30mg PO QD T2DM On solumedrol 60 mg q6H. POCT glucose checks. Insulin glargine 30 units SC BiD Insulin Lispro as per HDSS Follow-up further recommendations after discussing case with the attending. The plan was discussed with the patient, patient's family and the medical staff. Consultations: IP CONSULT TO NEUROLOGY IP CONSULT TO NEUROSURGERY IP CONSULT TO INTERNAL MEDICINE IP CONSULT TO CARDIOLOGY Patient is admitted as inpatient status because of co-morbidities listed above, severity of signs and symptoms as outlined, requirement for current medical therapies and most importantly because of direct risk to patient if care not provided in a hospital setting. SHAHIDA Morton IV 05/26/2024 8:46 AM Associated attestation - Lyn Culver DO - 05/26/2024 4:37 PM EDT Attending Physician Statement: I have discussed the case of Gage Lugo, including pertinent history and exam findings withthe resident. I have seen and examined the patient and the pablo elements of the encounter have been performed by me. I have reviewed medications, clinical laboratory, imaging and other diagnostic tests with the residents. I agree with the assessment, plan and orders as documented by the resident with changes made to the note as needed. Plan for OR with neurosurgery. Patient improved from a pain perspective. PT/OT. Lyn Culver DO 05/26/2024 4:37 PM * Rusty Amador APRN - PHOTOGEOLOGIST - 05/26/2024 7:49 AM EDT Neurosurgery SELVIN/Resident Daily Progress Note CC: Chief Complaint Patient presents with Pain Bilat shoulders, back and bilat legs 05/26/2024 7:49 AM Chart reviewed. No acute events overnight. No new complaints. Significant improvement in strength from consult note, denies pain in BUe and BLE Denies paresthesias in BUE and BLE Vitals: 05/25/24 1604 05/25/24 1656 05/25/24 1950 05/25/24 2310 BP: (!) 168/81 (!) 159/87 (!) 139/102 Pulse: 72 73 75 77 Resp: 15 13 12 Temp: 97.9 F (36.6 C) 97.9 F (36.6 C) TempSrc: Oral Oral SpO2: 97% 97% 94% Weight: Height: PE: AOx3 PERRL, EOMI Motor L deltoid 5/5; R deltoid 5/5 L biceps 5/5; R biceps 5/5 L triceps 5/5; R triceps 5/5 L wrist extension 5/5; R wrist extension 5/5 L intrinsics 5/5; R intrinsics 5/5 L iliopsoas 5/5 , R iliopsoas 5/5 L quadriceps 5/5; R quadriceps 5/5 L Dorsiflexion 5/5; R dorsiflexion 5/5 L Plantarflexion 5/5; R plantarflexion 5/5 L EHL 5/5; R EHL 5/5 Sensation: intact Lab Results Component Value Date WBC 17.5 (H) 05/26/2024 HGB 10.3 (L) 05/26/2024 HCT 31.3 (L) 05/26/2024 PLT 225 05/26/2024 ALT 22 05/26/2024 AST 25 05/26/2024 NA 136 05/26/2024 K 4.2 05/26/2024 CL 109 (H) 05/26/2024 CREATININE 1.9 (H) 05/26/2024 BUN 55 (H) 05/26/2024 CO2 18 (L) 05/26/2024 CRP 124.0 (H) 05/23/2024 SEDRATE 49 (H) 05/23/2024 A/P 74 y.o. male who presents with sever cervical stenosis with myelopathy, lumbar adjacent segment disease with stenosis and neurogenic claudication along with paraparesis Pending clearance with medicine and cardiology- Moderate to high risk her cardiology Ok for PT and OT Planning surgery on for Cervical spine and Friday for Lumbar spine Consent signed and in chart Elevated blood glucose 200-300 - steroids on hold this morning Please contact neurosurgery with any changes in patients neurologic status. Rusty Amador CNP 05/26/24 7:49 AM Associated attestation - Edin Bridges DO - 05/27/2024 2:46 AM EDT I have seen and examined the patient independently. I reviewed all laboratory and imaging studies that are relevant. I agree with the SELVIN note with the below addendum. Delayed entry - seen 05/26/24 Patient with persistent weakness of the bilateral upper extremities as well as left lower extremity. Strength and sensation have improved from prior. Bilateral upper extremities 5 out of 5 Left lower extremity dorsiflexion and EHL approximately 4-4 minus. Lumbar adjacent segment disease with neurogenic claudication and stenosis Cervical stenosis with myelopathy I did have discussion with the patient regarding the plan for surgical invention to treat the myelopathy involving C3-C7 posterior cervical decompression fusion fixation. Risk and benefit of the procedure were detailed. In addition I did discuss complete decompression of the L3-L4 level considering significant paraparesis and radiating pain preventing patient from being able to mobilize. Despite improvement in strength patient is still having significant symptoms related to mobility. Relayed the possibility of surgical intervention both cervical and lumbar spine on the same day on versus explained the case is open to cervical on and lumbar on Friday. Also explained that lumbar would be more of a elective case and we have the option to delay this till outpatient if the patient is improved and able to ambulate with controlled lower extremity pain. Edin Bridges DO Neurosurgery O: [phone] C: [phone] * Tammi Rincon MD - 05/26/2024 7:37 AM EDT Images from the original note were not included. [facility] Internal Medicine Teaching Residency Program Inpatient Daily Progress Note Patient: Gage Lugo Date of : 1950 Acct: [id number] Room: 0544/0544-01 Admit date: 05/23/2024 Today's date: 05/26/24 Number of days in the hospital: 3 SUBJECTIVE CC: Pain (Bilat shoulders, back and bilat legs) Pt examined at bedside. Chart & results reviewed. -VSS, pt is saturating well on room air -Hemodynamically stable. -Glucose still >250 milligram per deciliter. Lantus 30 unit twice daily. Target glucose less than 180 mg/dL patient is not taking glipizide. -SBP > 150 mmHg. Hydralazine 50 mg 3 times daily, Coreg 25 twice daily ROS: General ROS: Completed and except as mentioned above were negative Respiratory ROS: Completed and except as mentioned above were negative Cardiovascular ROS: Completed and except as mentioned above were negative Gastrointestinal ROS: Completed and except as mentioned above were negative Genito-Urinary ROS: Completed and except as mentioned above were negative Musculoskeletal ROS: Reports improvement in pain after steroid therapy BRIEF HISTORY The patient is a pleasant 74 y.o. male presents with a chief complaint of neurogenic right foot pain. Patient was admitted under neurosurgery service for surgical management of neuropathic pain. IM was consulted for the management of hypertension, type 2 diabetes mellitus, CKD stage III, chronic tobacco use. Last Echo EF of 50 to 55% in 2020 Last Cath 2006, CAD s/p PCI with 2 stents Repeat RCA stent 2016 Last lipid profile Cholesterol 119, HDL 27, TG 382, LDL 16 (10/2023) Last HbA1C 7.9% Hospital Course: The patient complains of right foot pain from [facility] which is sudden, episodic and intense. It is not related to position of movement of the foot and shoots up the leg all the way to the buttocks. The foot was not tender to touch however he had multiple episodes of this pain and was unable to bear weight on it. The patient also complained of bilateral upper extremity weakness particular ly in the shoulders. Patient had increased ESR and CRP on admission, his other labs were unremarkable. Decision was made to operate on the patient cervical as well as lumbar spine and get medical clearance. The patient uses 10 units of insulin glargine at home twice daily. He is also on glipizide for his blood glucose control. The patient uses CGM to monitor blood glucose levels and states that they fluctuate between 110 to 120 mg/dL. The patient is also on aspirin, Lipitor, Coreg, hydralazine. He is on nitrates as needed for cardiac chest pain. OBJECTIVE Vital Signs: BP (!) 139/102 Pulse 77 Temp 97.9 F (36.6 C) (Oral) Resp 12 Ht 1.651 m (5' 5 ) Wt 71.9 kg(158 lb 8.2 oz) SpO2 94% BMI 26.38 kg/m Temp (24hrs), Av.7 F (36.5 C), Min:97.3 F (36.3 C), Max:97.9 F (36.6 C) In: - Out: 1300 [Urine:1300] PHYSICAL EXAMINATION: Constitutional: This is a well developed, well nourished, 25-29.9 - Overweight 62 y.o. year old male who is alert, oriented, cooperative and in no apparent distress. Head:normocephalic and atraumatic. Respiratory: Chest was symmetrical without dullness to percussion. Breath sounds bilaterally were clear to auscultation. There were no wheezes, rhonchi or rales. There is no intercostal retraction oruse of accessory muscles. No egophony noted. Cardiovascular: Regular without murmur, clicks, gallops or rubs. Abdomen: Slightly rounded and soft without organomegaly. No rebound, rigidity or guarding was appreciated. Musculoskeletal: Normal curvature of the spine. No gross muscle weakness. Extremities: No lower extremity edema, ulcerations, tenderness, varicosities or erythema. Muscle size, tone and strength are normal. No involuntary movements are noted. INVESTIGATIONS Medications: Scheduled Medications: cyclobenzaprine 10 mg Oral Nightly atorvastatin 20 mg Oral Nightly insulin lispro 0-16 Units SubCUTAneous TID insulin lispro 0-4 Units SubCUTAneous Nightly hydrALAZINE 50 mg Oral 3 times per day insulin glargine 20 Units SubCUTAneous BID carvedilol 25 mg Oral BID isosorbide mononitrate 30 mg Oral Daily gabapentin 300 mg Oral BID methylPREDNISolone 60 mg IntraVENous Q6H sodium chloride flush 5-40 mL IntraVENous 2 times per day [Held by provider] heparin (porcine) 5,000 Units SubCUTAneous 3 times per day Continuous Infusions: dextrose sodium chloride 75 mL/hr at 05/24/24 0559 sodium chloride PRN Medicationsglucose, 4 tablet, PRN dextrose bolus, 125 mL, PRN Or dextrose bolus, 250 mL, PRN glucagon (rDNA), 1 mg, PRN dextrose, , Continuous PRN labetalol, 10 mg, Q6H PRN sodium chloride flush, 5-40 mL, PRN sodium chloride, , PRN LORazepam, 4 mg, Q5 Min PRN ondansetron, 4 mg, Q8H PRN Or ondansetron, 4 mg, Q6H PRN polyethylene glycol, 17 g, Daily PRN Diagnostic Labs: CBC: Recent Labs 05/24/24 0705/25/24 0705/26/24 0553 WBC 10.4 6.9 17.5* RBC 3.84* 3.93* 3.65* HGB 10.8* 11.0* 10.3* HCT 33.3* 33.8* 31.3* MCV 86.7 86.0 85.8 RDW 12.5 12.2 12.2 PLT 230 235 225 BMP: Recent Labs 05/24/24 0705/25/24 0705/26/24 0553 NA 138 135* 136 K 4.7 4.2 4.2 CL 108* 105 109* CO2 21 17* 18* BUN 48* 60* 55* CREATININE 2.4* 2.6* 1.9* BNP: No results for input(s): BNP in the last 72 hours. PT/INR: No results for input(s): PROTIME , INR in the last 72 hours. APTT: No results for input(s): APTT in the last 72 hours. CARDIAC ENZYMES: No results for input(s): CKMB , CKMBINDEX , TROPONINI in the last 72 hours. Invalid input(s): CKTOTAL;3 FASTING LIPID PANEL:No results found for: CHOL , HDL , TRIG LIVER PROFILE: Recent Labs 05/24/24 0705/25/24 0705/26/24 0553 AST 18 26 25 ALT 12 22 22 BILITOT 0.5 0.4 0.3 ALKPHOS 92 94 84 MICROBIOLOGY: Lab Results Component Value Date/Time CULTURE NO GROWTH 05/23/2024 11:26 PM Imaging: CT LUMBAR SPINE WO CONTRAST Result Date: 05/25/2024 Posterior fixation at L4-5 with associated laminectomy and hardware is intact. Potential minimal lucency developing adjacent to the transpedicular screws at the L5 level. Multilevel degenerative facet hypertrophy with bilateral bony foraminal narrowing at L5-S1. MRI CERVICAL SPINE WO CONTRAST Result Date: 05/24/2024 1. Motion limited evaluation. 2. Severe spinal canal stenosis at C3-4 and C4-5 with flattening of the spinal cord and abnormal bilateral paracentral cord T2 hyperintensity at the C4-5 level consistent with spondylotic myelomalacia, although a component of cord edema may be present. 3. Moderate spinal canal stenosis at C6-7. 4. Moderate and severe multilevel neural foraminal narrowing as detailed above. XR SPINE ENTIRE (2-3 VIEWS) Result Date: 05/24/2024 1. Mild levoscoliosis of the lower thoracic spine and mild dextroscoliosis of the lumbar spine. 2. Status post posterior fusion and discectomy at L4-5 without complication identified. MRI BRAIN WO CONTRAST Result Date: 05/24/2024 Chronic microvascular disease without acute intracranial abnormality. Chronic sinusitis of the leftmaxillary sinus. MRI LUMBAR SPINE WO CONTRAST Result Date: 05/24/2024 Multilevel degenerative change with canal stenosis at L3-4. Foraminal narrowing as described above.Posterior fixation and laminectomy at L4-5 without complication. ASSESSMENT & PLAN Principal Problem: Neurogenic pain of right lower extremity Active Problems: Pain in right lower leg Lumbar stenosis with neurogenic claudication 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) Resolved Problems: * No resolved hospital problems. * Type 2 diabetes mellitus Serum glucose is 300 to 350 mg/dl Was taking Lantus 10 units OD and Glipizide 10 mg OD Lantus 20 twice daily High-dose sliding scale POCT checks pre meal QID Essential hypertension Hydralazine 50 mg TID CAD s/p PTCA RCA bare metal stent revision 2016, History of NM Prior echo in 2020 shows EF 50-55% Aspirin 81 mg, Lipitor 20 mg nightly Carvedilol 25 mg BID Imdur 30 mg Isosorbide nitrate PRN Duplex scan of lower extremities negative for any obstruction Chronic kidney disease stage 3b GFR 28 mL/min Creatinine 2.6 Secondary to uncontrolled type 2 diabetes Degenerative disc disease L3-L4 canal stenosis S/p posterior fixation and laminectomy L4-L5 2022 S/p cervical spinal surgery in 1984 Gabapentin 300 mg TID Cyclobenzaprine 10 mg OD Cervical spinal stenosis MRI spine 05/24 showed stenosis at C3-C4 level with flattening of spinal cord and possible cord edema Injection Solu-Medrol 60 mg IV given Plan for cervical as well as lumbar spinal surgery per neurosurgery Diet: Diabetic diet DVT prophylaxis: Heparin Tammi Rincon MD PGY-1, Internal Medicine Resident [facility] [place], [place] 05/26/2024, 7:37 AM Associated attestation - Gerard Ramesh MD - 05/26/2024 1:29 PM EDT Attending Physician Statement I have discussed the care of Gage Lugo, including pertinent history and exam findings, with the resident. I have seen and examined the patient and the pablo elements of all parts of the encounter have been performed by me. I agree with the assessment, plan and orders as documented by the resident. (GC Modifier) MD FAUSTINO Garcia Attending Physician Internal Medicine Residency Program, Nephrology [facility] 05/26/2024, 1:29 PM * Low Gomez MD - 05/25/2024 9:48 AM EDT [facility] Neurology IN-PATIENT SERVICE [facility] Progress Note Date: 05/25/2024 Patient name: Gage Lugo Date of admission: 05/23/2024 6:12 PM Account: [id number] Date of : 1950 PCP: Lolita Adorno DO Room: 0544/0544-01 Code Status: Full Code Chief Complaint: Chief Complaint Patient presents with Pain Bilat shoulders, back and bilat legs Interval hx: The patient was seen and examined at bedside. Is vitally stable, alert and oriented x 3. No acute events overnight. Today, patient's range of motion and strength in RLE and b/l upper extremities has improved before radicular pain occurs. -Patient has chronic weakness and ROM in the deltoid of the RUE and decreased pain and temp sensation in the LLE in L5/S1 distribution. Neurosurgery on board and planning to take the patient to the OR for the procedure, need medical and cardiac clearance. -Discussed the patient with the RN, no other acute issues noted otherwise. Brief History of Present Illness: The patient is a 74 y.o. / male who presents with Pain in the Bilateral shoulders, back and bilateral legs. He has a past medical history significant for CAD s/p PTCA, type 2 diabetesmellitus, CKD stage III, HTN, HLD and is a current smoker. He initially presented to the ED with a chief complaint of pain, worse in his right leg with inability to bear weight on it. Patient states this pain is a radicular pain with movement that starts in his foot and shoots up the back of the leg into the buttocks and lower back. The pain occurred all of a sudden on 05/23 when he woke up and isonly present with movement or touch/pressure on the extremity. It is a sharp 10/10 pain when it does occur. In addition to that, patient is also complaining of pain in bilateral shoulders that prevents him from raising either arm above 90 degrees. He recently went to [facility] where initialworkup was negative except for elevated ESR and CRP. Per the patient, he underwent a lumbar disc surgery L4-L5 with cage placement in 2022 for left footdrop and left leg abnormal sensation. Since the procedure, the weakness has improved but is still present and had increased sensation to touch but still feels like his left foot is always cold. Additionally he had a cervical fusion around ~1984. On presentation, his total CK levels were 31 and myoglobin 65, CRP was elevated at 124 and ESR was elevated at 49. His CBC showed hemoglobin 11.0, hematocrit 33.8, WBC 12.5 and platelet count of 290.MRI cervical on 05/24/24 shows stenosis of C3-C5 with T2 hyperintensity at C4-C5 and MRI lumbar shows worse stenosis of L3-L4. Neurosurgery has been consulted. Past Medical History: Past Medical History: Diagnosis Date CAD (coronary artery disease) stents x2 from multiple angiograms Diabetes mellitus (HCC) Hyperlipidemia Hypertension Past Surgical History: Past Surgical History: Procedure Laterality Date CARDIAC CATHETERIZATION ', , CERVICAL FUSION with collar bone revision 1983 LUMBAR DISC SURGERY cage placed 2022 Medications Prior to Admission: Prior to Admission medications Medication Sig Start Date End Date Taking? Authorizing Provider vitamin B-12 (CYANOCOBALAMIN) 1000 MCG tablet Take 1 tablet by mouth daily Yes Provider, MD Mark insulin glargine (LANTUS) 100 UNIT/ML injection vial Inject 10 Units into the skin 2 times daily Yes Mark Ledezma MD Multiple Vitamins-Minerals (THERAPEUTIC MULTIVITAMIN-MINERALS) tablet Take 1 tablet by mouth daily Yes Mark Ledezma MD aspirin 81 MG chewable tablet Take 1 tablet by mouth daily Yes Mark Ledezma MD atorvastatin (LIPITOR) 20 MG tablet Take 1 tablet by mouth nightly Yes Mark Ledezma MD carvedilol (COREG) 25 MG tablet Take 1 tablet by mouth 2 times daily Yes Mark Ledezma MD cyclobenzaprine (FLEXERIL) 10 MG tablet Take 1 tablet by mouth at bedtime Yes Mark Ledezma MD glipiZIDE (GLUCOTROL) 10 MG tablet Take 1 tablet by mouth daily Yes Mark Ledezma MD hydrALAZINE (APRESOLINE) 50 MG tablet Take 1.5 tablets by mouth 2 times daily Yes Mark Ledezma MD isosorbide mononitrate (IMDUR) 30 MG extended release tablet Take 1 tablet by mouth daily Yes Mark Ledezma MD ferrous sulfate (IRON 325) 325 (65 Fe) MG tablet Take 1 tablet by mouth daily Mark Ledezma MD nitroGLYCERIN (NITROSTAT) 0.[address] 1 tablet under the tongue every 5 minutes as needed for Chest pain up to max of 3 total doses. If no relief after 1 dose, call 911. Mark Ledezma MD Allergies: Asa [aspirin] and Percocet [oxycodone-acetaminophen] Social History: Tobacco: reports that he has been smoking cigarettes. He has never used smokeless tobacco. Alcohol: reports no history of alcohol use. Drug Use: reports no history of drug use. Family History: History reviewed. No pertinent family history. Review of Systems: Review of Systems HENT: Negative for hearing loss. Eyes: Negative for visual disturbance. Patient mentions chronic vision acuity issue in right eye due to cataracts Respiratory: Negative for cough, shortness of breath and wheezing. Cardiovascular: Negative for chest pain and palpitations. Gastrointestinal: Negative for abdominal pain, constipation, diarrhea, nausea and vomiting. Genitourinary: Negative for difficulty urinating and dysuria. Musculoskeletal: Positive for myalgias. Neurological: Positive for weakness. Negative for dizziness, light-headedness, numbness and headaches. Physical Exam: BP (!) 172/93 Comment: prn bp med given Pulse 73 Temp 97.7 F (36.5 C) (Oral) Resp 15 Ht 1.651 m (5' 5 ) Wt 71.9 kg (158 lb 8.2 oz) SpO2 97% BMI 26.38 kg/m Temp (24hrs), Av.8 F (36.6 C), Min:97.3 F (36.3 C), Max:98.4 F (36.9 C) Recent Labs 05/24/24 1725 05/24/24201505/25/24 0900 05/25/24 1143 POCGLU 192* 238* 376* 386* Intake/Output Summary (Last 24 hours) at 05/25/2024 1326 Last data filed at 05/25/2024 0738 Gross per 24 hour Intake -- Output 875 ml Net -875 ml Neurologic Exam GENERAL Appears comfortable and in no distress HEENT NC/ AT MENTAL STATUS: Alert, oriented, intact memory, no confusion, normal speech, normal language, no hallucination or delusion CRANIAL NERVES: II - Visual ochoa intact to confrontation. III,IV, - EOMI full, no ptosis. Right afferent pupillary defect. Left pupil reactive to light. V - Intact facial sensation VII - Intact facial symmetry VIII - Intact hearing IX,X - Symmetrical palate XI - Symmetrical shoulder shrug XII - Midline tongue, no atrophy MOTOR FUNCTION: RUE: Significant for good strength of grade 5/5 in proximal and distal muscle groups Decreased ROM in RUE, cannot elevate past 90 degrees LUE: Significant for good strength of grade 5/5 in proximal and distal muscle groups RLE: Significant for good strength of grade 5/5 in proximal and distal muscle groups LLE: Significant for good strength of grade 5/5 in proximal muscle groups. 3/5 in dorsiflexion 4/5 in plantar flexion Normal bulk, normal tone and no involuntary movements, no tremor SENSORY FUNCTION: Decreased sensation to pinprick and temperature Left foot in L5/S1 distribution. Sensation to touch intact in all extremities CEREBELLAR FUNCTION: No dysmetria or dysdiadochokinesia REFLEX FUNCTION: L. Biceps 1/4, R. Biceps 1/4 L. Triceps 1/4, R. Triceps 1/4 L. Patellar 1/4, R. Patellar 1/4 L. Achilles 0/4, R. Achilles 0/4 Negative babinski and negative larson's Straight leg raise + on right leg at ~80 degree hip flexion. Straight leg raise negative on left leg STATION and GAIT Not assessed Investigations: Laboratory Testing: Recent Results (from the past 24 hour(s)) Vascular duplex lower extremity venous right Collection Time: 05/24/24 2:40 PM Result Value Ref Range Body Surface Area 1.82 m2 Vascular duplex lower extremity arteries right Collection Time: 05/24/24 3:12 PM Result Value Ref Range Right INTERIOR DESIGN CONSULTANT prox PSV 134.0 cm/s Right Pop A dist PSV 106.0 cm/s Right Pop A prox PSV 105.0 cm/s Right SHAYLA mid PSV 46.2 cm/s Right TANK FILLER mid PSV 90.1 cm/s Right peronal mid PSV 71.9 cm/s Right SFA mid PSV 107.0 cm/s Right SFA prox PSV 115.0 cm/s Right INTERIOR DESIGN CONSULTANT prox PSV 117.0 cm/s Body Surface Area 1.82 m2 Right SFA prox dany ratio 0.9 Right SFA mid dany ratio 0.9 Right EIA dist PSV 68.0 cm/s Right INTERIOR DESIGN CONSULTANT dany ratio 2.0 POC Glucose Fingerstick Collection Time: 05/24/24 5:25 PM Result Value Ref Range POC Glucose 192 (H) 75 - 110 mg/dL POC Glucose Fingerstick Collection Time: 05/24/24 8:16 PM Result Value Ref Range POC Glucose 238 (H) 75 - 110 mg/dL CBC with Auto Differential Collection Time: 05/25/24 7:00 AM Result Value Ref Range WBC 6.9 3.5 - 11.3 k/uL RBC 3.93 (L) 4.21 - 5.77 m/uL Hemoglobin 11.0 (L) 13.0 - 17.0 g/dL Hematocrit 33.8 (L) 40.7 - 50.3 % MCV 86.0 82.6 - 102.9 fL MCH 28.0 25.2 - 33.5 pg MCHC 32.5 28.4 - 34.8 g/dL RDW 12.2 11.8 - 14.4 % Platelets 235 138 - 453 k/uL MPV 10.2 8.1 - 13.5 fL NRBC Automated 0.0 0.0 per 100 WBC Immature Granulocytes % 0 0 % Neutrophils % 90 (H) 36 - 66 % Lymphocytes % 8 (L) 24 - 44 % Monocytes % 2 1 - 7 % Eosinophils % 0 (L) 1 - 4 % Basophils % 0 0 - 2 % Immature Granulocytes Absolute 0.00 0.00 - 0.30 k/uL Neutrophils Absolute 6.21 1.8 - 7.7 k/uL Lymphocytes Absolute 0.55 (L) 1.0 - 4.8 k/uL Monocytes Absolute 0.14 0.1 - 0.8 k/uL Eosinophils Absolute 0.00 0.0 - 0.4 k/uL Basophils Absolute 0.00 0.0 - 0.2 k/uL Morphology Normal Comprehensive Metabolic Panel w/ Reflex to MG Collection Time: 05/25/24 7:00 AM Result Value Ref Range Sodium 135 (L) 136 - 145 mmol/L Potassium 4.2 3.7 - 5.3 mmol/L Chloride 105 98 - 107 mmol/L CO2 17 (L) 20 - 31 mmol/L Anion Gap 13 9 - 16 mmol/L Glucose 388 (H) 74 - 99 mg/dL BUN 60 (H) 8 - 23 mg/dL Creatinine 2.6 (H) 0.70 - 1.20 mg/dL Est, Glom Filt Rate 26 (L) >60 mL/min/1.73m2 Calcium 8.8 8.6 - 10.4 mg/dL Total Protein 6.4 (L) 6.6 - 8.7 g/dL Albumin 3.3 (L) 3.5 - 5.2 g/dL Albumin/Globulin Ratio 1.0 1.0 - 2.5 Total Bilirubin 0.4 0.00 - 1.20 mg/dL Alkaline Phosphatase 94 40 - 129 U/L ALT 22 10 - 50 U/L AST 26 10 - 50 U/L POC Glucose Fingerstick Collection Time: 05/25/24 9:00 AM Result Value Ref Range POC Glucose 376 (H) 75 - 110 mg/dL POC Glucose Fingerstick Collection Time: 05/25/24 11:43 AM Result Value Ref Range POC Glucose 386 (H) 75 - 110 mg/dL Recent Labs 05/25/24 0700 WBC 6.9 RBC 3.93* HGB 11.0* HCT 33.8* MCV 86.0 MCH 28.0 MCHC 32.5 RDW 12.2 PLT 235 MPV 10.2 Recent Labs 05/25/24 0700 NA 135* K 4.2 CL 105 CO2 17* BUN 60* CREATININE 2.6* GLUCOSE 388* CALCIUM 8.8 BILITOT 0.4 ALKPHOS 94 AST 26 ALT 22 No results found for: LABA1C Imaging: CT LUMBAR SPINE WO CONTRAST Result Date: 05/25/2024 EXAMINATION: CT OF THE LUMBAR SPINE WITHOUT CONTRAST 05/25/2024 TECHNIQUE: CT of the lumbar spine was performed without the administration of intravenous contrast. Multiplanar reformatted images are provided for review. Adjustment of mA and/or kV according to patient size was utilized. Automated exposure control, iterative reconstruction, and/or weight based adjustment of the mA/kV was utilized toreduce the radiation dose to as low as reasonably achievable. COMPARISON: None HISTORY: ORDERING SYSTEM PROVIDED HISTORY: eval hardware TECHNOLOGIST PROVIDED HISTORY: eval hardware Reason for Exam: PAIN EVAL HARDWARE FINDINGS: BONES/ALIGNMENT: The vertebral body heights are maintained. There is posterior hardware fixation at L4-5 with associated laminectomy. The hardware is intact. There may be minimal lucency developing adjacent to the transpedicular screws at the L5 level. There is no spondylolisthesis. DEGENERATIVE CHANGES: The remaining disc spaces are maintained. There is mild multileveldegenerative facet hypertrophy. There is no significant bony canal stenosis. There is a degree of bilateral bony foraminal narrowing at L5-S1. SOFT TISSUES/RETROPERITONEUM: No paraspinal mass is seen. Posterior fixation at L4-5 with associated laminectomy and hardware is intact. Potential minimal lucency developing adjacent to the transpedicular screws at the L5 level. Multilevel degenerative facet hypertrophy with bilateral bony foraminal narrowing at L5-S1. MRI CERVICAL SPINE WO CONTRAST Result Date: 05/24/2024 EXAMINATION: MRI OF THE CERVICAL SPINE WITHOUT CONTRAST 05/24/2024 10:56 pm TECHNIQUE: Multiplanar multisequence MRI of the cervical spine was performed without the administration of intravenous contrast. COMPARISON: None. HISTORY: ORDERING SYSTEM PROVIDED HISTORY: assess for stenosis TECHNOLOGIST PROVIDED HISTORY: assess for stenosis Reason for Exam: assess for stenosis FINDINGS: Motion limited evaluation. BONES/ALIGNMENT: Vertebral heights are maintained. There is straightening of the cervicallordosis without spondylolisthesis. Edematous degenerative changes are present at C6-7. SPINAL CORD: Abnormal bilateral paracentral spinal cord T2 hyperintensity at the C4-5 level. No mass or abnormal fluid collection within the spinal canal. SOFT TISSUES: Paraspinal soft tissues are unremarkable. C2-C3: Disc height and signal maintained. No significant neural foraminal narrowing or spinal canal stenosis. C3-C4: Mild disc height loss and desiccation. Severe bilateral neural foraminal narrowing s econdary to uncovertebral hypertrophy. Severe spinal canal stenosis secondary to disc bulge and left posterior paracentral disc protrusion with flattening of the spinal cord. C4-C5: Mild disc height loss and desiccation. Severe bilateral neural foraminal narrowing secondary to uncovertebral hypertrophy. Severe spinal canal stenosis secondary to disc bulge with flattening of the spinal cord. C5-C6: Mild disc height loss and desiccation. Severe left and moderate right neural foraminal narrowing secondary to uncovertebral hypertrophy. Mild spinal canal stenosis secondary to disc bulge. C6-C7: Severe disc height loss and desiccation. Severe bilateral neural foraminal narrowing secondary to uncov ertebral hypertrophy. Moderate spinal canal stenosis secondary to disc bulge and ligamentum flavum hypertrophy. C7-T1: Mild disc height loss and desiccation. Mild left neural foraminal narrowing secondary to uncovertebral and facet hypertrophy. No right neural foraminal narrowing. Mild spinal canalstenosis secondary to disc bulge. 1. Motion limited evaluation. 2. Severe spinal canal stenosis at C3-4 and C4-5 with flattening of the spinal cord and abnormal bilateral paracentral cord T2 hyperintensity at the C4-5 level consistent with spondylotic myelomalacia, although a component of cord edema may be present. 3. Moderate spinal canal stenosis at C6-7. 4. Moderate and severe multilevel neural foraminal narrowing as detailed above. Vascular duplex lower extremity arteries right Result Date: 05/24/2024 Patent arteries of the right lower extremity with no evidence of significant stenosis. Vascular duplex lower extremity venous right Result Date: 05/24/2024 No evidence of deep vein or superficial vein thrombosis in the right lower extremity. XR SPINE ENTIRE (2-3 VIEWS) Result Date: 05/24/2024 EXAMINATION: TWO XRAY VIEWS SCOLIOSIS SERIES 05/24/2024 6:50 pm COMPARISON: MRI lumbar spine 05/24/2024. HISTORY: ORDERING SYSTEM PROVIDED HISTORY: standing Ap and lateral full spine -- C2 to pelvix & include both femoral heads TECHNOLOGIST PROVIDED HISTORY: standing Ap and lateral full spine --C2 to pelvix & include both femoral heads FINDINGS: Status post posterior fusion and discectomyat L4-5 without complication identified. Mild levoscoliosis of the lower thoracic spine with a Cobbangle of approximately 6 degrees. Mild dextroscoliosis of the lumbar spine with a Raza angle approximately 8 degrees. Normal alignment is otherwise maintained. The vertebral body heights are preserved. No fracture or other acute osseous abnormality identified. Mild multilevel degenerative disc disease throughout the thoracic and lumbar spine. The bilateral sacroiliac joints are intact. The bilateral hips are grossly unremarkable. The soft tissues are unremarkable. 1. Mild levoscoliosis of the lower thoracic spine and mild dextroscoliosis of the lumbar spine. 2. Status post posterior fusion and discectomy at L4-5 without complication identified. MRI BRAIN WO CONTRAST Result Date: 05/24/2024 EXAMINATION: MRI OF THE BRAIN WITHOUT CONTRAST 05/24/2024 3:24 pm TECHNIQUE: Multiplanar multisequence MRI of the brain was performed without the administration of intravenous contrast. COMPARISON: None. HISTORY: ORDERING SYSTEM PROVIDED HISTORY: Right leg weakness TECHNOLOGIST PROVIDED HISTORY: Right leg weakness What is the sedation requirement?->None Reason for Exam: Right leg weakness FINDINGS: INTRACRANIAL STRUCTURES/VENTRICLES: The sellar and suprasellar structures, optic chiasm, corpuscallosum, pineal gland, tectum, and midline brainstem structures are unremarkable. The craniocervical junction is unremarkable. There is no acute hemorrhage, mass effect, or midline shift. There is satisfactory overall bautista-white matter differentiation. There is chronic microvascular disease. The ventricular structures are symmetric and unremarkable. The infratentorial structures including the cerebellopontine angles and internal auditory canals are unremarkable. There is no abnormal restricteddiffusion. There is no abnormal blooming artifact on susceptibility weighted imaging. ORBITS: The visualized portion of the orbits demonstrate no acute abnormality. SINUSES: There is opacification ofthe left maxillary sinus likely related to chronic sinusitis. The mastoid air cells are normally aerated. BONES/SOFT TISSUES: The bone marrow signal intensity appears normal. The soft tissues demonstrate no acute abnormality. Chronic microvascular disease without acute intracranial abnormality. Chronic sinusitis of the leftmaxillary sinus. MRI LUMBAR SPINE WO CONTRAST Result Date: 05/24/2024 EXAMINATION: MRI OF THE LUMBAR SPINE WITHOUT CONTRAST, 05/24/2024 3:24 pm TECHNIQUE: Multiplanar multisequence MRI of the lumbar spine was performed without the administration of intravenous contrast.COMPARISON: None. HISTORY: ORDERING SYSTEM PROVIDED HISTORY: acute onset RLE severe, radiating pain/ allodynia TECHNOLOGIST PROVIDED HISTORY: acute onset RLE severe, radiating pain / allodynia What is the sedation requirement?->None Reason for Exam: acute onset RLE severe, radiating pain / allodynia FINDINGS: BONES/ALIGNMENT: The vertebral body heights are maintained. There is age-appropriatebone marrow signal. There is posterior fixation at L4-5 without complication. There is multilevel de generative disc disease at the remaining levels with loss of disc signal. There is no spondylolisthesis. SPINAL CORD: The conus terminates normally. SOFT TISSUES: No paraspinal mass identified. L1-L2: There is a circumferential disc bulge with facet hypertrophy. There is no canal stenosis or foraminal narrowing. L2-L3: There is a circumferential disc bulge with facet and ligamentous hypertrophy. There is no canal stenosis or foraminal narrowing. L3-L4: There is a circumferential disc bulge withfacet and ligamentous hypertrophy. There is canal stenosis measuring 6 mm in AP dimension. There isnarrowing of the lateral recesses. There is [id number] left and moderate right foraminal narrowing. L4-L5: There is a circumferential disc bulge with posterior laminectomy. There is no canal stenosis. There is moderate foraminal narrowing. L5-S1: There is a circumferential disc bulge with facet hypertrophy. There is no canal stenosis. There is moderate to severe left and severe right foraminal narrowing. Multilevel degenerative change with canal stenosis at L3-4. Foraminal narrowing as described above.Posterior fixation and laminectomy at L4-5 without complication. Assessment : Primary Problem Neurogenic pain of right lower extremity Active Hospital Problems Diagnosis Date Noted Lumbar stenosis with neurogenic claudication [M48.062] 05/25/2024 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 / male who presented with a chief complaint of right bilateralshoulder and bilateral lower extremity pain with movement or weight bearing. He has a significant past medical history of lumbar spine surgery L4-L5 in 2022 and Cervical fusion around 1984, CAD s/p PTCA, type 2 diabetes mellitus, CKD stage III, HTN, HLD and is a current smoker. MRI cervical spine showed severe spinal canal stenosis at C3-4 and C4-5 with flattening of the spinal cord and abnormal bilateral paracentral cord T2 hyperintensity at the C4-5 level consistent with spondylotic myelomalacia. MRI lumbar showed canal stenosis measuring 6 mm in AP dimension and narrowing of the lateral recesses. Plan: Cervical myelopathy and Lumbar radiculopathy Solumedrol 60mg IV Q6h Gabapentin 300mg PO BiD Neurosurgery on board. Planning to take to OR on . IM consulted for clearance. Leukocytosis WBC improved from 12.5 > 6.9 Blood and urine cultures show no growth MEAGHAN on CKD stage IV eGFR 26 Cr 2.6, BUN 60 Strict I/Os HTN BP goal <140/90 Continue Coreg 25mg BiD Labetalol 10mg IV Q6h PRN CAD Continue Lipitor 20mg PO QD Continue imdur 30mg PO QD T2DM On solumedrol 60 mg q6H. POCT glucose checks. Insulin glargine 20 units SC nightly Glipizide 10mg PO QD Insulin Lispro as per HDSS Follow-up further recommendations after discussing case with the attending. The plan was discussed with the patient, patient's family and the medical staff. Consultations: IP CONSULT TO NEUROLOGY IP CONSULT TO NEUROSURGERY IP CONSULT TO INTERNAL MEDICINE IP CONSULT TO CARDIOLOGY Patient is admitted as inpatient status because of co-morbidities listed above, severity of signs and symptoms as outlined, requirement for current medical therapies and most importantly because of direct risk to patient if care not provided in a hospital setting. Low Gomez MD, Internal Medicine Resident PGY-2 Neurology Service 05/25/2024 1:26 PM Associated attestation - Lyn Culver DO - 05/25/2024 1:38 PM EDT Attending Physician Statement: I have discussed the case of Gage Lugo, including pertinent history and exam findings withthe resident. I have seen and examined the patient and the pablo elements of the encounter have been performed by me. I have reviewed medications, clinical laboratory, imaging and other diagnostic tests with the residents. I agree with the assessment, plan and orders as documented by the resident with changes made to the note as needed. This is a 74 year old male with history of CAD, DM, CKD, HTN, HLD, current smoker who presents with2 week history of RLE pain. He denies any trauma or falls or recent illness. ESR and CRP elevated, CPK WNL. Aldolase pending. MRI C and L spine completed- showed concern for C-spine compression. MRI L spine with multilevel DJD. Patient states symptoms improving on IV steroids and gabapentin Neurosurgery recs appreciated. Plan for OR. PT/OT. LE doppler negative. Discussed with family at bedside. Lyn Culver DO 05/25/2024 1:36 PM * Elgin Brown [facility] - 05/24/2024 2:13 PM EDT PHARMACY NOTE: The electrolyte replacement protocol for potassium/magnesium has been discontinued per P&T guidelines because the patient has reduced renal function (CrCl < 30 mL/min). The patient's most recent potassium & magnesium levels are: Recent Labs 05/23/24194105/24/24 0712 K 3.9 4.7 Estimated Creatinine Clearance: 23 mL/min (A) (based on SCr of 2.4 mg/dL (H)). For patients with decreased renal function (below 30ml/min) needing potassium/magnesium supplementation, please order individual bolus doses with appropriate monitoring. Please contact the inpatient pharmacy with any concerns. Thank you. * Ligia Castaneda [facility] - 05/24/2024 11:23 AM EDT Images from the original note were not included. Pharmacy Note - Renal dose adjustment made per P/T protocol Original order: Gabapentin 300mg PO TID Estimated Creatinine Clearance: 23 mL/min (A) (based on SCr of 2.4 mg/dL (H)). Recent Labs 05/23/24194105/24/24 0712 BUN 51* 48* CREATININE 2.5* 2.4* Renally adjusted order: Gabapentin 300mg PO BID for CrCl 15-29mL/min Please call pharmacy with any questions. Thank you, Ligia Castaneda RPH 05/24/2024 11:23 AM documented in this encounterBON ELVI [id number] Hospital Discharge instructions* Discharge Instructions* Johnna Carroll APRN - APRIL - 06/03/2024 8:17 AM EDT Images from the original note were not included. Posterior Cervical Surgery Discharge Instructions Thank you for choosing [facility] for your surgical needs. The following instructions will help to ensure your comfort and that you are wellprepared after your surgery. Post-Operative Visit: The office is located at: [facility] [address] [place] [address], [address], [place] [address] Please also call your primary care physician to schedule an appointment for further evaluation and care. Diet: You may resume your regular diet. Be sure to eat a well-balanced diet. Protein promotes wound healing. Pain medication and decreased activity can cause constipation. Drink 8-10 glasses of water a day, eat fresh fruits and vegetables, and add prunes, raisins and bran cereals to your diet if you do become constipated. A stool softener taken 1-2 times a day is helpful. Dulcolax suppositories or Fleets enemas are also available without a prescription. Call our office if the problem continues. Activity and Exercise: No driving until you are seen in the office. Avoid riding in a car for the first two weeks until you come to the office to have your crystal removed. Start taking short, frequent walks in the beginning. [place], more frequent walks throughout the day are more beneficial than one long walk each day. You may gradually increase the distance; as tolerated. If your pain increases, you may be walking too much or too far. Try backing off for a day or two and then resume slowly. If physical therapy has been prescribed, you are not to perform range of motion, flexion, extensionor lateral bending. No lifting greater than 5 lbs (gallon of milk) for first few weeks after surgery. No pushing, pulling, or overhead work. No baths, swimming or hot tub until you discuss this with your doctor. Brace: Wear your cervical collar at all times when out of bed. Okay to remove for eating and hygiene. Incision Care and Hygiene: Your incision may be may be closed with sutures Steri-strips, crystal, or glue. -The crystal or sutures should be removed about 2 weeks after surgery. If they are not removed please call the clinic to have them removed. No ointments or lotions on the incision It is OK to shower 3-4 days after surgery. Let water run over the incision. Gently pat the incisiondry with a clean towel, do not rub. Leave incision site open to air. Pain Management: Do not take NSAID medications (Ibuprofen, Naprosyn, etc.) or Romero-2 inhibitors (Celebrex, etc.) for 1 weeks following surgery. You will be given a prescription for pain medication. Our hope is that you will eventually be weaned off all pain medications. Try not to take the pain medicine unless you need to. If you feel that you do not need something that strong, you may use regular or extra-strength Tylenol instead. DO NOT drink alcohol, drive or operate heavy machinery while taking your pain medications. Notify the office if your pain is not controlled or you need a medication refill before your appointment. Blood Thinning Medication: If you were previously on any blood thinning medications (Clopidogrel, Warfarin, aspirin, etc.) that haven t been restarted, you may resume in 1 weeks following your surgery. YOU SHOULD CALL THE OFFICE AT [phone] IF YOU HAVE ANY OF THE FOLLOWING: Increased pain or pain not relieved with current medications Increased difficulty with swallowing If you notice any signs of infection such as bleeding, redness, swelling, tenderness, odor, drainage or opening of the incision. Please check your incisions twice daily. Fevers greater than 101.5 degrees Flu-like symptoms, chills, shakes, chest pain, shortness of breath, nausea, vomiting, diarrhea New or increased pain, numbness or tingling in the arms or legs, as well as new or increased balance or coordination issues. New difficulty with urinating or holding your bladder or your bowels *If you are unable to contact someone at the office and your symptoms persist or increase, call 911or go to the emergency department. * Discharge Instr - BEN* Fran Dorantes MD - 06/03/2024 11:55 AM EDT Continuity of Care Form Patient Name: Gage Lugo : 1950 Admit date: 05/23/2024 Discharge date: 06/03/2024 Code Status Order: Full Code Advance Directives: Advance Care Flowsheet Documentation Date/Time Healthcare Directive Type of Healthcare Directive Copy in Chart Healthcare Agent Appointed Healthcare Agent's Name Healthcare Agent's Phone Number 05/27/24 0920 No, patient does not have an advance directive for healthcare treatment -- -- -- -- -- Admitting Physician: Chi Ortiz MD PCP: Lolita Adorno DO [facility]ing [facility]/0544-01 Discharging Unit Emergency Contact: Extended Emergency Contact Information Primary Emergency Contact: Catie Doan Mobile Relation: Girlfriend Preferred language: Indonesian Secondary Emergency Contact: Elena Urbano Mobile Relation: Child Preferred language: Indonesian Past Surgical History: Past Surgical History: Procedure Laterality Date CARDIAC CATHETERIZATION ', , CERVICAL FUSION with collar bone revision 1983 CERVICAL FUSION N/A 05/27/2024 POSTERIOR CERVICAL DECOMPRESSION FUSION CERVICAL THREE THROUGH SEVEN performed by Edin Bridges DO at [facility] OR CERVICAL SPINE SURGERY 05/27/2024 POSTERIOR CERVICAL DECOMPRESSION FUSION CERVICAL THREE THROUGH SEVEN+EXTENSION OF POSTERIOR LUMBAR FUSION TO LUMBAR THREE LUMBAR DISC SURGERY cage placed 2022 LUMBAR FUSION N/A 05/27/2024 EXTENSION OF POSTERIOR LUMBAR FUSION TO LUMBAR THREE performed by Edin Bridges DO at [facility] OR Immunization History: Immunization History Administered Date(s) Administered COVID-19, MODERNA BLUE border, Primary or Immunocompromised, (age 12y+), IM, 100 mcg/0.5mL 12/27/2020, 01/24/2021, 09/13/2021 COVID-19, MODERNA Bivalent, (age 12y+), IM, 50 mcg/0.5 mL 07/16/2022 COVID-19, MODERNA, ( formula), (age 12y+), IM, 50mcg/0.5mL 07/09/2023 Active Problems: Patient Active Problem List Diagnosis Code Neurogenic pain of right lower extremity M79.2 Pain in right lower leg M79.661 Lumbar stenosis with neurogenic claudication M48.062 Stenosis of cervical spine with myelopathy ([facility]) M48.02, G99.2 Paraparesis ([facility]) G82.20 Coronary artery disease involving [place] coronary artery of [place] heart without angina pectoris I25.10 Abnormal ECG R94.31 Isolation/Infection: Isolation No Isolation Patient Infection Status None to display Nurse Assessment: Last Vital Signs: BP 139/71 Pulse 75 Temp 98.6 F (37 C) (Oral) Resp 15 Ht 1.651 m (5' 5 ) Wt 74.6 kg (164 lb 7.4 oz) SpO2 99% BMI 27.37 kg/m Last documented pain score (0-10 scale): Pain Level: 9 Last Weight: Wt Readings from Last 1 Encounters: 06/03/24 74.6 kg (164 lb 7.4 oz) Mental Status: oriented and alert IV Access: - None Nursing Mobility/ADLs: Walking Assisted Transfer Assisted Bathing Assisted Dressing Assisted Toileting Assisted Feeding Independent Line Leader Independent Med Delivery whole Wound Care Documentation and Therapy: Incision 05/27/24 Neck Posterior (Active) Dressing Status Clean;Dry;Intact 06/03/24 08 Incision Cleansed Not Cleansed 06/03/24 08 Dressing/Treatment Open to air 06/03/24 0800 Drainage Amount None (dry) 06/03/24 08 Drainage Description Other (Comment) 06/03/24 0800 Odor None 06/03/24 08 Number of days: 6 Incision Neck Posterior (Active) Dressing Status Clean;Dry;Intact 06/03/24 0800 Incision Cleansed Not Cleansed 06/03/24 08 Dressing/Treatment Open to air 06/03/24 0800 Number of days: Incision 05/27/24 Back Lower;Medial (Active) Dressing Status Clean;Dry;Intact 06/03/24 08 Incision Cleansed Not Cleansed 06/03/24 08 Dressing/Treatment Open to air 06/03/24 08 Odor None 06/03/24 08 Number of days: 6 Elimination: Continence: Bowel: No Bladder: No Urinary Catheter: None Colostomy/Ileostomy/Ileal Conduit: No Date of Last BM: 06/03/2024 Intake/Output Summary (Last 24 hours) at 06/03/2024 1153 Last data filed at 06/03/2024 0745 Gross per 24 hour Intake -- Output 1775 ml Net -1775 ml I/O last 3 completed shifts: In: - Out: 2850 [Urine:2850] Safety Concerns: At Risk for Falls Impairments/Disabilities: Left foot drop, left leg weakness, use a walker Nutrition Therapy: Current Nutrition Therapy: - Oral Diet: General 5 carb choices Routes of Feeding: Oral Liquids: No Restrictions Daily Fluid Restriction: no Last Modified Barium Swallow with Video (Video Swallowing Test): swallow assessment 05/23/2024 Treatments at the Time of Hospital Discharge: Respiratory Treatments: Oxygen Therapy: is not on home oxygen therapy. Ventilator: - No ventilator support Rehab Therapies: Physical Therapy and Occupational Therapy Weight Bearing Status/Restrictions: No weight bearing restrictions Other Medical Equipment (for information only, NOT a DME order): walker Other Treatments: fdc eval and treat Patient's personal belongings (please select all that are sent with patient): Personal bag RN SIGNATURE: CASE MANAGEMENT/SOCIAL WORK SECTION Inpatient Status Date: 05-23-2024 Readmission Risk Assessment Score: Readmission Risk Risk of Unplanned Readmission: 22 Discharging to Facility/ Agency Name: [facility] Address: Phone: Fax: Dialysis Facility (if applicable) Name: Address: Dialysis Schedule: Phone: Fax: Bakeshop Cleaner/Medical Office Receptionist signature: PHYSICIAN SECTION Prognosis: {Prognosis:2390980428} Condition at Discharge: { Patient Condition:984326526} Rehab Potential (if transferring to Rehab): {Prognosis:4165846980} Recommended Labs or Other Treatments After Discharge: PT/OT eval and treat, fdc eval and treat Physician Certification: I certify the above information and transfer of Gage Lugo is necessary for the continuing treatment of the diagnosis listed and that he requires Home Care for greater 30 days. Update Admission H&P: {CHP DME Changes in HandP:540869927} PHYSICIAN SIGNATURE: [facility]* Encounter Date Diagnosis Assessment Notes Treatment Notes Treatment Clinical Notes Oct, Chronic kidney disea se, stage III (moderate) (ICD-10 - N18.30) He has a CKD due to longstanding DM and HTN baseline serum creatinine 1.7 to 1.8 mg/dL. CAT scan showed unremarkable kidneys. I discussed with him the importance of good HTN and DM control to slow down the progression of CKD. Advised him to avoid NSAIDs Oct, Diabetes mellitus wi th chronic kidney disease (ICD-10 - E11.22) Advised [...] over 90 mmHg. Oct, Anemia of renal dise ase (ICD-10 - D63.1) Hemoglobin is within the [...] serum and urine immunofixation. Oct, Other This documentat ion is being amended on 11/03/23 due to an internal data corruption event that occurred on 10/30/23. This data corruption event was NOT the result of any breach, fraud, or malicious third democrat actors and no personal patient information was compromised. [facility] Other 01-11-2024 History of Present illness Narrative* Gabriela Florian MD - 10/16/2023 9:10 AM EST Subjective Gage Lugo is a 73 y.o. male Chief [...] tablet, Rfl: 3 Assessment/Plan 1. 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of [place] coronary artery of [place] heart without angina pectoris Follow Up In [...] (Apresoline) 50 mg tablet 3. History of NM (myocardial infarction) isosorbide mononitrate ER (Imdur) 30 mg 24 hr tablet nitroglycerin (Nitrostat) 0.4 mg SL tablet 4. Mixed hyperlipidemia Lipid Panel Alanine Aminotransferase Aspartate Aminotransferase Lipid Panel Alanine Aminotransferase Aspartate Aminotransferase 5. S/P PTCA (percutaneous transluminal coronary angioplasty) 6. Stage 3a chronic kidney disease (CMS/HCC) 7. Current smoker on some days 8. Type 2 diabetes mellitus without complication, with long-term current use of insulin (CMS/HCC) 9. Overweight with body mass index (BMI) of 27 to 27.9 in adult 10. Atherosclerotic heart disease of [place] coronary artery without angina pectoris atorvastatin (Lipitor) 20 mg tablet Scribe Attestation By signing my name below, Magali Snyder LPN , Scribe attest that this documentation has been prepared under the direction and in the presence of Gabriela Florian MD. documented in this [facility] Work Phone: 1(273) 505-544801-11-2024 Instructions* Patient Instructions* Bryanna Avendano LPN - [...] time of your visit. [facility] Work Phone: 1(296) 985-801512-21-2023 Evaluation note* Encounter Date Diagnosis Assessment Notes Treatment Notes Treatment Clinical Notes Sep, History of lumbar fusion (ICD-10 - Z98.1) Sep, Degenerative lumbar disc (ICD-10 - M51.36) Reviewed xray from 05/06/23 good bony alignment and harware placement. Discusion to continue with home exercise program. Follow up in 1 year with xray [facility] Other 12-19-2023 Evaluation note* Encounter Date Diagnosis [...] him to continu until he sees GI. [facility] Other 12-14-2023 Evaluation note* Encounter Date Diagnosis [...] continue with the treatment plan per Dr. Snato, who initiated this treatment plan. Dr. Santo is present in the office today and providing supervision. [facility] Other 12-07-2023 Progress note Author Nette Holden [facility] September 11, 2023 11:30am Note Date/Time September 11, 2023 1 1:23am [facility] ENTER [address] [place] [address] Nephrology Progress Note Signed Patient: Gage Lugo MR#: [id number] : 1950 Acct:[id number] Age/Sex: 73 / M Adm Date: 3 Loc: Room: 9J3789-2 Type: ADM IN Attending Dr: Barbie Osborn [...] Skin: No rashes , warm to touch STRAP CUTTER: Awake,Alert, following simple command Musculoskeletal: No [...] 81 Mg Tab.Chew) 81 mg PO QAM [facility] Stop: 09/08/24 08:59 Last Admin: 09/11/23 08:34 Dose: 81 mg Atorvastatin Calcium (Atorvastatin 20 Mg Tablet) 20 mg PO QHS [facility] Stop: 09/07/24 21:59 Last Admin: 09/10/23 21:16 Dose: 20 mg Carvedilol (Carvedilol 25 Mg Tablet) 25 mg PO BID.WITH.MEALS [facility] Stop: 09/07/24 16:59 Last Admin: 09/11/23 08:34 Dose: 25 mg Cyanocobalamin (Cyanocobalamin 1,000 Mcg Tablet) 1,000 mcg PO QAM [facility] Stop: 09/08/24 08:59 Last Admin: 09/11/23 08:33 Dose: 1,000 mcg Dextrose (Dextrose 50% In Water 25 Gm/50 Ml Syringe) 0 gm IV-PUSH PRN PRN PRN Reason: Hypoglycemia Stop: 09/07/24 13:52 Enoxaparin Sodium (Enoxaparin 30 Mg/0.3 Ml Syringe) 30 mg SUBCUT DAILY@1000 [facility] Stop: 09/08/24 09:59 Last Admin: 09/11/23 11:04 Dose: 30 mg Ferrous Sulfate (Ferrous Sulfate 324 Mg Tablet.Dr) [facility] [place]: 09/08/24 08:59 Last Admin: 09/11/23 08:33 Dose: 324 mg Glucose (Dextrose 40% Gel 15 Gm Tube) 0 gm PO PRN PRN PRN Reason: Hypoglycemia Stop: 09/07/24 13:52 Hydralazine HCl (Hydralazine 50 Mg Tablet) 50 mg PO BID [facility] Stop: 09/07/24 15:14 Last Admin: 09/11/23 08:34 Dose: 50 mg Insulin Aspart (Insulin Aspart 300 Units/3 Ml Insuln.Pen) 0 units SUBCUT TID.[facility]; Protocol Stop: 09/07/24 16:59 Last Admin: 09/11/23 08:31 Dose: Not Given Insulin Glargine (Insulin Glargine 300 Units/3 Ml Insuln.Pen) 8 units SUBCUT DAILY [facility] Stop: 09/08/24 08:59 Last Admin: 09/11/23 08:34 Dose: 8 units Isosorbide Mononitrate (Isosorbide Mononitrate 24hr Er 30 Mg Tab.Er.24h) 30 mg PO QAM [facility] Stop: 09/08/24 08:59 Last Admin: 09/11/23 08:34 Dose: 30 mg Morphine Sulfate (Morphine Sulfate 2 Mg/Ml Vial) 2 mg IV-PUSH Q3H PRN PRN Reason: Severe Pain Last Admin: 09/08/23 23:35 Dose: 2 mg Nitroglycerin (Nitroglycerin 0.4 Mg Tab.Subl) 0.4 mg SUBLINGUAL Q5M PRN PRN Reason: Chest Pain Stop: 09/07/24 15:10 Pantoprazole Sodium (Pantoprazole 40 Mg Tablet.Dr) 40 mg PO BID [facility] Stop: 09/09/24 08:59 Last Admin: 09/11/23 08:33 [...] reading physician into a diagnostic report(s) for Gage Lugo. I have reviewed the report(s) and [...] signed by Nette Holden MD> 09/11/23 1130 [facility] Work Phone: [phone] 277-666112-07-2023 Progress note Author Joao Coley [facility] September 11, 2023 8:54am Note Date/Time September 11, 2023 8 :55am [facility] ENTER [address] [place] [address] Gastroenterology PN Signed Patient: Gage Lugo MR#: [id number] : 1950 Acct:[id number] Age/Sex: 73 / M Adm Date: 3 Loc: Room: [address] [place] [address] Type: ADM IN Attending Dr: Barbie Osborn [...] 09:00 09/11/23 08:33 Ferrous Sulfate 324 Mg Tablet.Dr PO 09/08/24 08:59 324 mg QAM [facility] [...] Ml Insuln.Pen SUBCUT 09/07/24 16:59 Not Given TID.[facility] Protocol Insulin Glargine 8 units 09/09/23 [...] 09/10/23 09:00 09/11/23 08:33 Pantoprazole 40 Mg Tablet. PO 09/09/24 08:59 [...] Status: Acute Documented By: Joao Coley MD 09/11/2353 Signed By: <Electronically signed by MD Joao Coley> 09/11/23 0[address] [facility] Work Phone: [phone] Progress note Author Nette Holden [facility] September 10, 2023 12:09pm Note Date/Time September 10, 2023 1 2:09pm [facility] ENTER [address] [place] [address] Nephrology Progress Note Signed Patient: Gage Lugo MR#: [id number] : 1950 Acct:[id number] Age/Sex: 73 / M Adm Date: 3 Loc: Room: [address] [place] [address] Type: ADM IN Attending Dr: Barbie Osborn [...] Skin: No rashes , warm to touch STRAP CUTTER: Awake,Alert, following simple command Musculoskeletal: No [...] 81 Mg Tab.Chew) 81 mg PO QAM [facility] Stop: 09/08/24 08:59 Last Admin: 09/10/23 08:43 Dose: 81 mg Atorvastatin Calcium (Atorvastatin 20 Mg Tablet) 20 mg PO QHS [facility] Stop: 09/07/24 21:59 Last Admin: 09/09/23 21:18 Dose: 20 mg Carvedilol (Carvedilol 25 Mg Tablet) 25 mg PO BID.WITH.MEALS [facility] Stop: 09/07/24 16:59 Last Admin: 09/10/23 08:43 Dose: 25 mg Cyanocobalamin (Cyanocobalamin 1,000 Mcg Tablet) 1,000 mcg PO QAM [facility] Stop: 09/08/24 08:59 Last Admin: 09/10/23 08:43 Dose: 1,000 mcg Dextrose (Dextrose 50% In Water 25 Gm/50 Ml Syringe) 0 gm IV-PUSH PRN PRN PRN Reason: Hypoglycemia Stop: 09/07/24 13:52 Enoxaparin Sodium (Enoxaparin 30 Mg/0.3 Ml Syringe) 30 mg SUBCUT DAILY@1000 [facility] Stop: 09/08/24 09:59 Last Admin: 09/10/23 11:30 Dose: 30 mg Ferrous Sulfate (Ferrous Sulfate 324 Mg Tablet.Dr) 324 mg PO QAM [facility] Stop: 09/08/24 08:59 Last Admin: 09/10/23 08:43 Dose: 324 mg Glucose (Dextrose 40% Gel 15 Gm Tube) 0 gm PO PRN PRN PRN Reason: Hypoglycemia Stop: 09/07/24 13:52 Hydralazine HCl (Hydralazine 50 Mg Tablet) 50 mg PO BID [facility] Stop: 09/07/24 15:14 Last Admin: 09/10/23 08:43 Dose: 50 mg Insulin Aspart (Insulin Aspart 300 Units/3 Ml Insuln.Pen) 0 units SUBCUT TID.[facility]; Protocol Stop: 09/07/24 16:59 Last Admin: 09/10/23 11:27 Dose: 3 units Insulin Glargine (Insulin Glargine 300 Units/3 Ml Insuln.Pen) 8 units SUBCUT DAILY [facility] Stop: 09/08/24 08:59 Last Admin: 09/10/23 08:43 Dose: 8 units Isosorbide Mononitrate (Isosorbide Mononitrate 24hr Er 30 Mg Tab.Er.24h) 30 mg PO QAM [facility] Stop: 09/08/24 08:59 Last Admin: 09/10/23 08:43 Dose: 30 mg Morphine Sulfate (Morphine Sulfate 2 Mg/Ml Vial) 2 mg IV-PUSH Q3H PRN PRN Reason: Severe Pain Last Admin: 09/08/23 23:35 Dose: 2 mg Nitroglycerin (Nitroglycerin 0.4 Mg Tab.Subl) 0.4 mg SUBLINGUAL Q5M PRN PRN Reason: Chest Pain Stop: 09/07/24 15:10 Pantoprazole Sodium (Pantoprazole 40 Mg Tablet.Dr) 40 mg PO BID [facility] Stop: 09/09/24 08:59 Last Admin: 09/10/23 08:43 [...] reading physician into a diagnostic report(s) for Gage Lugo. I have reviewed the report(s) and [...] function daily. Documented By: Nette Holden MD 09/10/231205 Signed By: <Electronically signed by Nette Holden MD> 09/10/23 120 [facility] Work Phone: 1(509) 308-147212-06-2023 Progress note Author Barbie Osborn [facility] September 10, 2023 10:13am Note Date/Time September 10, 2023 1 0:13am [facility] ENTER [address] [place] [address] Hospitalist Progress Note Signed Patient: Gage Lugo MR#: [id number] : 1950 Acct:[id number] Age/Sex: 73 / M Adm Date: 3 Loc: Room: [address] [place] [address] Type: ADM IN Attending Dr: Barbie Osborn [...] Dose Route Start Last Admin Trade Name Yue PRN Reason Stop Dose Admin Aspirin 81 [...] 09:00 09/10/23 08:43 Ferrous Sulfate 324 Mg Tablet.Dr PO 09/08/24 08:59 324 mg QAM [facility] [...] 09/10/23 09:00 09/10/23 08:43 Pantoprazole 40 Mg Tablet.Dr PO 09/09/24 08:59 [...] signed by Barbie Osborn MD> 09/10/23 1013 [facility] Work Phone: [phone] Progress note Author Barbie Osborn [facility] September 09, 2023 4:54pm Note Date/Time September 09, 2023 4 :54pm [facility] ENTER [address] [place] [address] Hospitalist Progress Note Signed Patient: Gage Lugo MR#: [id number] : 1950 Acct:[id number] Age/Sex: 73 / M Adm Date: 3 Loc: Room: [address] [place] [address] Type: ADM IN Attending Dr: Barbie Osborn [...] Mg Tab.Chew PO 09/08/24 08:59 Not Given QAM [facility] Atorvastatin Calcium 20 mg 09/08/23 22:00 09/08/23 21:58 Atorvastatin 20 Mg Tablet PO 09/07/24 21:59 20 mg QHS [facility] Administration Carvedilol 25 mg 09/08/23 17:00 09/09/23 07:57 Carvedilol 25 Mg Tablet PO 09/07/24 16:59 25 mg BID.WITH.MEALS [facility] Administration Cyanocobalamin 1,000 mcg 09/09/23 09:00 09/09/23 08:00 Cyanocobalamin 1,000 Mcg Tablet PO 09/08/24 08:59 Not Given QAM [facility] Dextrose 0 gm 09/08/23 13:53 Dextrose 50% In Water 25 Gm/50 Ml Syringe IV-PUSH 09/07/24 13:52 PRN PRN Hypoglycemia Enoxaparin Sodium 40 mg 09/09/23 10:00 09/09/23 09:21 Enoxaparin 40 Mg/0.4 Ml Syringe SUBCUT 09/08/24 09:59 Not Given DAILY@1000 [facility] Ferrous Sulfate 324 mg 09/09/23 09:00 09/09/23 08:00 Ferrous Sulfate 324 Mg Tablet.Dr PO 09/08/24 08:59 Not Given QAM [facility] Glucose 0 gm 09/08/23 13:53 Dextrose 40% Gel 15 Gm Tube PO 09/07/24 13:52 PRN PRN Hypoglycemia Hydralazine HCl 50 mg 09/08/23 15:15 09/09/23 08:00 Hydralazine 50 Mg Tablet PO 09/07/24 15:14 Not Given BID [facility] Clevidipine 50 mg in 100 mls @ 2 mls/hr 09/08/23 12:00 09/09/23 11:15 Cleviprex IV 09/07/24 11:59 Not Given .Q24H [facility] Protocol 1 MG/HR Insulin Aspart 0 units 09/08/23 17:00 09/09/23 12:44 Insulin Aspart 300 Units/3 Ml Insuln.Pen SUBCUT 09/07/24 16:59 2 units TID.WM.HS [facility] Administration Protocol Insulin Glargine 8 units 09/09/23 09:00 09/09/23 08:00 Insulin Glargine 300 Units/3 Ml Insuln.Pen SUBCUT 09/08/24 08:59 Not Given DAILY [facility] Isosorbide Mononitrate 30 mg 09/09/23 09:00 09/09/23 08:19 Isosorbide Mononitrate 24hr Er 30 Mg Tab.Er.24h PO 09/08/24 08:59 Not Given QAM [facility] Morphine Sulfate 2 mg 09/08/23 13:53 09/08/23 [...] Syringe IV-PUSH 09/08/24 13:59 Not Given QSHIFT [facility] A&P - Hospitalist Assessment/Plan (1) Hypertensive emergency: [...] prophylaxis. Documented By: Barbie Osborn MD 09/09/23 1649 Signed By: <Electronically signed by Barbie Osborn MD> 09/09/23 6541 [facility] Work Phone: [phone] Progress note Author Gabriela Florian [facility] September 09, 2023 4:22pm Note Date/Time September 09, 2023 4 :21pm [facility] ENTER [address] [place] [address] Cardiology Progress Note Signed Patient: Gage Lugo MR#: [id number] : 1950 Acct:[id number] Age/Sex: 73 / M Adm Date: 3 Loc: Room: [address] [place] [address] Type: ADM IN Attending Dr: Barbie Osborn [...] MPV Neut % (Auto) Lymph % (Auto) Kleberg % (Auto) Eos % (Auto) Baso % (Auto) Nucleat RBC Rel Count Neut # (Auto) Lymph # (Auto) Kleberg # (Auto) Eos # (Auto) Baso # [...] % (Auto) 60.8 Lymph % (Auto) 23.8 Kleberg % (Auto) 12.2 Eos % (Auto) 2.4 Baso % (Auto) 0.8 Nucleat RBC Rel Count 0.0 Neut # (Auto) 5.7 Lymph # (Auto) 2.3 Kleberg # (Auto) 1.1 H Eos # (Auto) [...] MPV Neut % (Auto) Lymph % (Auto) Kleberg % (Auto) Eos % (Auto) Baso % (Auto) Nucleat RBC Rel Count Neut # (Auto) Lymph # (Auto) Kleberg # (Auto) Eos # (Auto) Baso # [...] Status: Acute Documented By: Gabriela Florian MD, [facility] 3 1619 Signed By: <Electronically signed by [facility] Gabriela Florian> 09/09/23 1624 [facility] Work Phone: [phone]) 149-371712-05-2023 Consult note Author Nette Holden [facility] September 09, 2023 1:41pm Note Date/Time September 09, 2023 1 :25pm [facility] ENTER [address] [place] [address] Nephrology Consult Note Signed Patient: Gage Lugo MR#: [id number] : 1950 Acct:[id number] Age/Sex: 73 / M Adm Date: 3 Loc: Room: [address] [place] [address] Type: ADM IN Attending Dr: Barbie Osborn MD Copies to: MD Lolita Hyde DO Mazhar Rahman, MD~ Providers Consult Date: 09/09/23 Requesting Provider: Barbie Osborn MD Primary Care Provider: Lolita Adorno DO [facility] Reason for Consult: CKD and proteinuria History [...] mg PO BID 08/08/20 [History Confirmed 09/08/23] [id number] gluconate 9 mg iron/15 mL (15 mL) [...] 81 Mg Tab.Chew) 81 mg PO QAM [facility] Stop: 09/08/24 08:59 Last Admin: 09/09/23 08:00 Dose: Not Given Atorvastatin Calcium (Atorvastatin 20 Mg Tablet) 20 mg PO QHS [facility] Stop: 09/07/24 21:59 Last Admin: 09/08/23 21:58 Dose: 20 mg Carvedilol (Carvedilol 25 Mg Tablet) 25 mg PO BID.WITH.MEALS [facility] Stop: 09/07/24 16:59 Last Admin: 09/09/23 07:57 Dose: 25 mg Cyanocobalamin (Cyanocobalamin 1,000 Mcg Tablet) 1,000 mcg PO QAM [facility] Stop: 09/08/24 08:59 Last Admin: 09/09/23 08:00 Dose: Not Given Dextrose (Dextrose 50% In Water 25 Gm/50 Ml Syringe) 0 gm IV-PUSH PRN PRN PRN Reason: Hypoglycemia Stop: 09/07/24 13:52 Enoxaparin Sodium (Enoxaparin 40 Mg/0.4 Ml Syringe) 40 mg SUBCUT DAILY@1000 [facility] Stop: 09/08/24 09:59 Last Admin: 09/09/23 09:21 Dose: Not Given Ferrous Sulfate (Ferrous Sulfate 324 Mg Tablet.Dr) 324 mg PO QAM [facility] Stop: 09/08/24 08:59 Last Admin: 09/09/23 08:00 Dose: Not Given Glucose (Dextrose 40% Gel 15 Gm Tube) 0 gm PO PRN PRN PRN Reason: Hypoglycemia Stop: 09/07/24 13:52 Hydralazine HCl (Hydralazine 50 Mg Tablet) 50 mg PO BID [facility] Stop: 09/07/24 15:14 Last Admin: 09/09/23 08:00 Dose: Not Given Clevidipine (Cleviprex) 50 mg in 100 mls @ 2 mls/hr IV .Q24H [facility]; Protocol Stop: 09/07/24 11:59 Last Admin: 09/09/23 11:15 Dose: Not Given Insulin Aspart (Insulin Aspart 300 Units/3 Ml Insuln.Pen) 0 units SUBCUT TID.WM.HS [facility]; Protocol Stop: 09/07/24 16:59 Last Admin: 09/09/23 12:44 Dose: 2 units Insulin Glargine (Insulin Glargine 300 Units/3 Ml Insuln.Pen) 8 units SUBCUT DAILY [facility] Stop: 09/08/24 08:59 Last Admin: 09/09/23 08:00 Dose: Not Given Isosorbide Mononitrate (Isosorbide Mononitrate 24hr Er 30 Mg Tab.Er.24h) 30 mg PO QAM [facility] Stop: 09/08/24 08:59 Last Admin: 09/09/23 08:19 Dose: Not Given Morphine Sulfate (Morphine Sulfate 2 Mg/Ml Vial) 2 mg IV-PUSH Q3H PRN PRN Reason: Severe Pain Last Admin: 09/08/23 23:35 Dose: 2 mg Nitroglycerin (Nitroglycerin 0.4 Mg Tab.Subl) 0.4 mg SUBLINGUAL Q5M PRN PRN Reason: Chest Pain Stop: 09/07/24 15:10 Pantoprazole Sodium (Pantoprazole 40 Mg Vial) 40 mg IV-PUSH BID [facility] Stop: 09/07/24 13:59 Last Admin: 09/09/23 08:02 [...] 10 Ml Syringe) 0 ml IV-PUSH QSHIFT [facility] Stop: 09/08/24 13:59 Exam Physical Exam Vital [...] Skin: No rashes , warm to touch STRAP CUTTER: Awake,Alert, following simple command Musculoskeletal: No joint swelling or limitation of movement Psychiatric: Cooperative, normal mood and affect Results Labs 09/09/23 03:54 09/09/23 03:54 Labs: 09/09/23 03:54 BUN 23 Creatinine 1.84 H Radiology Impressions Impressions - last 24 hours: Any impression(s) listed above is documentation that was entered by the reading physician into a diagnostic report(s) for Gage Lugo. I have reviewed the report(s) and [...] <Electronically signed by Nette Holden MD> 09/09/23 1341 [facility] Work Phone: [phone] Consult note Author Joao Coley [facility] September 09, 2023 12:03pm Note Date/Time September 08, 2023 4 :16pm [facility] ENTER [address] [place] [address] Gastroenterology Consult Note Signed Patient: Gage Lugo MR#: [id number] : 1950 Acct:[id number] Age/Sex: 73 / M Adm Date: 3 Loc: Room: [address] [place] [address] Type: ADM IN Attending Dr: Barbie Osborn [...] negative unless noted below or in HPI [facility] Medical History Chronic kidney disease, stage 3a [...] mg PO BID 08/08/20 [History Confirmed 09/08/23] zolvktrm-npfx-cimhtwo gluconate 9 mg iron/15 mL (15 mL) [...] % (Auto) 63.3 Lymph % (Auto) 21.4 [place] % (Auto) 10.2 Eos % (Auto) 4.4 Baso % (Auto) 0.7 Nucleat RBC Rel Count 0.1 Neut # (Auto) 5.5 Lymph # (Auto) 1.9 Kleberg # (Auto) 0.9 H Eos # (Auto) [...] MPV Neut % (Auto) Lymph % (Auto) [place] % (Auto) Eos % (Auto) Baso % (Auto) Nucleat RBC Rel Count Neut # (Auto) Lymph # (Auto) Kle[place] # (Auto) Eos # (Auto) Baso # [...] MPV Neut % (Auto) Lymph % (Auto) [place] % (Auto) Eos % (Auto) Baso % (Auto) Nucleat RBC Rel Count Neut # (Auto) Lymph # (Auto) Kle[place] # (Auto) Eos # (Auto) Baso # [...] <Electronically signed by MD Joao Coley> 09/09/23 5009 [facility] Work Phone: 1(997) 343-368012-05-2023 [facility] Consult note Author Gabriela Florian [facility] September 08, 2023 3:25pm Note Date/Time September 08, 2023 3 :23pm [facility] [address] [place] [address] Cardiology Consult Note Signed Patient: Gage Lugo MR#: [id number] : 1950 Acct:[id number] Age/Sex: 73 / M Adm Date: 3 Loc: Room: [address] [place] [address] Type: ADM IN Attending Dr: Barbie Osborn MD Copies to: Gabriela Florian MD, [facility] DO Barbie Roca MD~ Cardiology HPI History of Present Illness Consult Date: 09/08/23 Reason for Consult: Uncontrolled hypertension HPI: Mr. Lugo is a 73 year old male who is being seen at request of the hospitalist for management of hypertension. Patient is known to myself. He hashistory of PCI of the RCA in 2006 and 2016, last nuclear stress test 2020 was unremarkable, he is known to have [...] obstruction. All other review of systems unremarkable. [facility] Medical History Chronic kidney disease, stage 3a [...] mg PO BID 08/08/20 [History Confirmed 09/08/23] jshqcwvm-lley-rexpdzi gluconate 9 mg iron/15 mL (15 mL) [...] x10E3/uL Lymph # (Auto) 1.9 (1.00-4.8) x10E3/uL Kleberg # (Auto) 0.9 H (0.0-0.8) x10E3/uL Eos [...] abdominal pain Documented By: Gabriela Florian MD, [facility] 3 1519 Signed By: <Electronically signed by [facility] Gabriela Florian> 09/08/23 1525 [facility] Work Phone: 1(366) 308-188712-04-2023 Progress note Author Martínez Briceño [facility] September 08, 2023 3:14pm Note Date/Time September 08, 2023 3 :14pm [facility] [address] [place] [address] Progress Note Signed Patient: Gage Lugo MR#: [id number] : 1950 Acct:[id number] Age/Sex: 73 / M Adm Date: 3 Loc: Room: [address] [place] [address] Type: ADM IN Attending Dr: Barbie Osborn [...] <Electronically signed by MD Martínez Briceño> 09/08/23 5975 [facility] Work Phone: 1([phone] 682-394712-04-2023 History and physical note Author Barbie Osborn [facility] September 08, 2023 2:39pm Note Date/Time September 08, 2023 2 :39pm [facility] [address] [place] [address] Hospitalist H&P Signed Patient: Gage Lugo MR#: [id number] : 1950 Acct:[id number] Age/Sex: 73 / M Adm Date: 3 Loc: Room: [address] [place] [address] Type: ADM IN Attending Dr: Barbie Osborn [...] negative unless noted below or in HPI [facility] Medical History Chronic kidney disease, stage 3a [...] mg PO BID 08/08/20 [History Confirmed 12/31/22] zvzbonsi-phhv-nhryvxw gluconate 9 mg iron/15 mL (15 mL) [...] % (Auto) 21.4 % (.) 09/08/23 06:30 Kleberg % (Auto) 10.2 % (.) 09/08/23 06:30 Eos % (Auto) 4.4 % (.) 09/08/23 06:30 Baso % (Auto) 0.7 % (.) 09/08/23 06:30 Nucleat RBC Rel Count 0.1 /100 WBC (0-0.5) 09/08/23 06:30 Neut # (Auto) 5.5 x10E3/uL (1.8-7.7) 09/08/23 06:30 Lymph # (Auto) 1.9 x10E3/uL (1.00-4.8) 09/08/23 06:30 Kleberg # (Auto) 0.9 x10E3/uL (0.0-0.8) H 09/08/23 [...] <Electronically signed by Barbie Osborn MD> 09/08/23 1433 [facility] Work Phone: 1(756) 468-473611-16-2023 Evaluation note* Encounter Date Diagnosis Assessment Notes [...] wean from splint and slowly progress activity [facility] Other 10-26-2023 Evaluation note* Encounter Date Diagnosis [...] the splint for activities. Call with questions/concerns. [facility] Other 10-19-2023 Evaluation note* Encounter Date Diagnosis [...] and elevate to decrease pain and swelling. [facility] Other 09-13-2023 Evaluation note* Encounter Date Diagnosis Assessment Notes Treatment Notes Treatment Clinical Notes Jun, Spinal stenosis at L4-L5 level (ICD-10 - M48.061) Mr Lugo is doing well Status post 9 months PLIF. Xray reviewed which shows good hardware placement and bony alignment. Advised to follow up in 3 months. Jun, History of fusion of lumbar spine (ICD-10 - Z98.1) [facility] Other 08-28-2023 Evaluation note* Encounter Date Diagnosis Assessment Notes Treatment Notes Treatment Clinical Notes May, Type 2 diabetes mellitus with diabetic chronic kidney disease (ICD-10 - E11.22) over all doing well. continue as is. no lows. May, Stage 3b chronic kidney disease (CKD) (ICD-10 - N18.32) up to date with labs. May, Other encouraged flu, covid booster, RSV vaccines at pharmacy this fall. [facility] Other 08-17-2023 History general Narrative - Reported* Type Description Date Medical History High blood pressure Medical History T2DM Medical History NM Medical History 05/22 EGD and Colonos copy-2 [...] attack 08/24/20 17 Hospitalization History see above [facility] Other 08-17-2023 History general Narrative - Reported* Type Description Date Medical History High blood pressure Medical History T2DM Medical History NM Medical History 05/22 EGD and Colonos copy-2 [...] History see above Hospitalization History stomach pain [facility] Other 08-01-2023 Evaluation note* Encounter Date Diagnosis [...] 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 Follow up in 6 months. [facility] Other 02-20-2023 Evaluation note* Encounter Date Diagnosis Assessment Notes Treatment Notes Treatment Clinical Notes Nov, Lumbar radiculopathy (ICD-10 - M54.16) doing much better since surgery. Nov, Type 2 diabetes mellitus with diabetic chronic kidney disease (ICD-10 - E11.22) 1 month too early for a1c, checking sugars which have been good. will recheck in 3 months-he is in agreement. [facility] Other 01-12-2023 Evaluation note* Encounter Date Diagnosis [...] History of lumbar fusion (ICD-10 - Z98.1) [facility] Other 01-01-2023 Progress note Author Kali Isaac [facility] October 06, 2022 2:31pm Note Date/Time October 06, 2022 10 :42am [facility] [address] [place] [address] Hospitalist Progress Note Signed Patient: Gage Lugo MR#: [id number] : 1950 Acct:[id number] Age/Sex: 72 / M Adm Date: 2 Loc: 4N Room: [address] [place] [address] Type: REG [facility] Attending Dr: Clemente Miller MD Copies to: ~ Date of Service: 10/06/2022 Subjective Subjective Narrative: Originally plans were in place for the patient to go to the acute inpatient rehabilitation unit on [address]. However the patient tells me that today [...] Ml Insuln.Pen SUBCUT 10/02/23 14:12 Not Given TID.WM.[facility] Protocol Insulin Glargine 10 units 10/06/22 [...] signed by Kali Isaac, > 10/06/22 1431 [facility] Work Phone: 1(667) 856-215101-01-2023 Progress note Author Clemente Miller [facility] October 06, 2022 8:55am Note Date/Time October 06, 2022 8: 55am [facility] [address] [place] [address] Neurosurgery Progress Note Signed Patient: Gage Lugo MR#: [id number] : 1950 Acct:[id number] Age/Sex: 72 / M Adm Date: 2 Loc: Room: [address] [place] [address] Type: REG SDC Attending Dr: Clemente Miller [...] signed by MD Clemente Miller> 10/06/22 0855 [facility] Work Phone: 1(771) 628-520212-31-2022 Progress note Author Roberto Cullen [facility] October 05, 2022 11:34am Note Date/Time October 05, 2022 11:34am [facility] [address] [place] [address] Hospitalist Progress Note Signed Patient: Gage Lugo MR#: [id number] : 1950 Acct:[id number] Age/Sex: 72 / M Adm Date: 2 Loc: 4N Room: 6M6524-6 Type: REG SDC Attending Dr: Clemente Miller [...] Insuln.Pen SUBCUT 10/02/23 14:12 Not Given TID.WM.[facility] Protocol Insulin Glargine 20 units 10/03/22 21:00 [...] regimen ?Continue PT OT Documented By: Roberto Cullen, DO 10/05/22 1130 Signed By: <Electronically signed by Roberto Cullen, DO> 10/05/22 1134 [facility] Work Phone: [phone] Progress note Author Clemente Miller [facility] October 05, 2022 9:34am Note Date/Time October 05, 2022 9:34am [facility] [address] [place] [address] Neurosurgery Progress Note Signed Patient: Gage Lugo MR#: [id number] : 1950 Acct:[id number] Age/Sex: 72 / M Adm Date: 2 Loc: Room: [address] [place] [address] Type: REG SDC Attending Dr: Clemente Miller [...] Amer) 43, Glucose 93 D, Calcium 8.5 12/31/22 01:51: POC Glucose 118 10/04/22 21:02: POC [...] Code(s): I25.10 - Atherosclerotic heart disease of [place] coronary artery without angina pectoris Status: Acute (6) Hyperlipemia: Code(s): E78.5 - Hyperlipidemia, unspecified Status: Acute (7) Leg weakness, bilateral: Code(s): R29.898 - Other symptoms and signs involving the musculoskeletal system Status: Acute Documented By: Clemente Miller MD 10/05/22931 Signed By: <Electronically signed by MD Clemente Miller> 10/05/22 0934 [facility] Work Phone: 1(954) 408-313012-30-2022 Progress note Author Beth Lowe [facility] October 04, 2022 11:41am Note Date/Time October 04, 2022 11:36am [facility] [address] [place] [address] Neurosurgery Progress Note Signed Patient: Gage Lugo MR#: [id number] : 1950 Acct:[id number] Age/Sex: 72 / M Adm Date: 2 Loc: 4N Room: [id number] Type: REG SDC Attending Dr: Clemente Miller [...] % (Auto) 87.1, Lymph % (Auto) 6.1, Kleberg % (Auto) 6.6, Eos % (Auto)0.0, Baso % (Auto) 0.2, Nucleat RBC Rel Count 0.0, Neut # (Auto) 14.0 H, Lymph #(Auto) 1.0, Kle[place] # (Auto) 1.1 H, Eos # (Auto) [...] Code(s): I25.10 - Atherosclerotic heart disease of [place] coronary artery without angina pectoris Status: Acute (6) Hyperlipemia: Code(s): E78.5 - Hyperlipidemia, unspecified Status: Acute (7) Leg weakness, bilateral: Code(s): R29.898 - Other symptoms and signs involving the musculoskeletal system Status: Acute Documented By: DEREK Ohara 10/04/22 1134 Signed By: <Electronically signed by DEREK Lowe> 10/04/22 1141 [facility] Work Phone: [phone]) 639-146112-30-2022 Progress note Author Kali Isaac [facility] October 04, 2022 10:20am Note Date/Time October 04, 2022 10:20am [facility] [address] [place] [address] Hospitalist Progress Note Signed Patient: Gage Lugo MR#: [id number] : 1950 Acct:[id number] Age/Sex: 72 / M Adm Date: 2 Loc: 4N Room: 9V2701-5 Type: REG SDC Attending Dr: Clemente Miller [...] signed by Kali Isaac DO> 10/04/22 1020 [facility] Work Phone: [phone] 330-535712-29-2022 Consult note Author Kali Isaac [facility] October 03, 2022 9:46am Note Date/Time October 03, 2022 9:46am [facility] [address] [place] [address] Hospitalist Consult Note Signed Patient: Gage Lugo MR#: [id number] : 1950 Acct:[id number] Age/Sex: 72 / M Adm Date: 2 Loc: 4N Room: 1B0549-9 Type: REG RIC Attending Dr: Clemente Miller MD Copies to: [...] except as mentioned elsewhere in the documentation. [facility]?: Yes Medical History Diabetes [...] mg PO BID 08/08/20 [History Confirmed 10/02/22] ymwdmhgx-sssf-uesrvnr gluconate 9 mg iron/15 mL (15 mL) [...] Dose Route Start Last Admin Trade Name Toniq PRN Reason Stop Dose Admin Acetaminophen 650 [...] By: <Electronically signed by Kali Isaac DO> 10/03/2246 [facility] Work Phone: [phone]) 595-486112-29-2022 Progress note Author Beth Lowe [facility] October 03, 2022 7:40am Note Date/Time October 03, 2022 7:38am [facility] [address] [place] [address] Neurosurgery Progress Note Signed Patient: Gage Lugo MR#: [id number] : 1950 Acct:[id number] Age/Sex: 72 / M Adm Date: 2 Loc: 4N Room: [id number] Type: REG SDC Attending Dr: Clemente Miller [...] <Electronically signed by DEREK Lowe> 10/03/22 0740 [facility] Work Phone: [phone] Evaluation note* Encounter Date Diagnosis Assessment Notes [...] in agreement. reliable at checking sugars. Aug, MCFP (current) use of insulin (ICD-10 - Z79.4) Aug, Hypertension, essential (ICD-10 - I10) controlled 14 Aug, 2022 Spinal stenosis at L4-L5 level (ICD-10 - M48.061) is to have surgery with Dr. Miller, apparently waiting cardiac clearance. [facility] Other 11-10-2022 Evaluation note* Encounter Date Diagnosis Assessment Notes Treatment Notes Treatment Clinical Notes Aug, Coronary artery disease involving [place] coronary artery of [place] heart without angina pectoris (ICD-10 - I25.10) [...] Aug, Foot drop, left (ICD-10 - M21.372) [facility] Other 09-15-2022 Evaluation note* Encounter Date Diagnosis Assessment Notes Treatment Notes Treatment Clinical Notes Jun, Coronary artery disease involving [place] coronary artery of [place] heart without angina pectoris (ICD-10 - I25.10) [...] Jun, Foot drop, left (ICD-10 - M21.372) [facility] Other 08-29-2022 Evaluation note* Encounter Date Diagnosis Assessment Notes Treatment Notes Treatment Clinical Notes May, Spinal stenosis at L4-L5 level (ICD-10 - M48.061) May, Spinal stenosis of lumbar region with neurogenic claudication (ICD-10 - M48.062) [facility] Other 08-17-2022 History general Narrative - Reported* Type Description Date Medical History High blood pressure Medical History T2DM Medical History NM Medical History 05/22 EGD and Colonos copy-2 cm tubular adenoma removed Medical History injections - back pain Surgical History neck Surgical History first rib removed Surgical History lower back - injections Surgical History cardiac stents - Dr. Florian Surgical History Colonoscopy 09/12/21 Hospitalization History heart attack 08/24/20 17 Hospitalization History see above [facility] Other 08-17-2022 History general Narrative - Reported* Type Description Date Medical History High blood pressure Medical History T2DM Medical History NM Medical History 05/22 EGD and Colonos copy-2 [...] attack 08/24/20 17 Hospitalization History see above [facility] Other 08-09-2022 Evaluation note* Encounter Date Diagnosis [...] Z12.5) May, Hypertension, essential (ICD-10 - I10) [facility] Other 05-09-2022 Evaluation note* Encounter Date Diagnosis [...] chronic kidney disease (CKD) (ICD-10 - N18.32) [facility] Other 02-08-2022 Evaluation note* Encounter Date Diagnosis [...] - E04.1) had been monitored by Dr. Dmuont- will set up with ENT for potential biopsy. Nov, Left lumbar radiculopathy (ICD-10 - M54.16) offered to update MRI to go to PM or neurosurgery, he declined. offered PT he also declined. will call if he changes his mind. no red flag symptoms. [facility] Other 01-27-2022 Evaluation note* Encounter Date Diagnosis Assessment Notes Treatment Notes Treatment Clinical Notes Oct, Type 2 diabetes mellitus with diabetic chronic kidney disease (ICD-10 - E11.22) [facility] Other 01-27-2022 Evaluation note* Encounter Date Diagnosis Assessment Notes Treatment Notes Treatment Clinical Notes Oct, Thyroid nodule (ICD-10 - E04.1) [facility] Other 01-26-2022 Evaluation note* Encounter Date Diagnosis Assessment Notes Treatment Notes Treatment Clinical Notes Oct, Hemorrhoids (ICD-10 - K64.9) Oct, Diverticulosis (ICD-10 - K57.90) Oct, Gas (ICD-10 - R14.3) REASSURED CAN USE OTC PROBIOTIC Oct, Other REPEAT COLON IN 5 YEARS [facility] Other 11-23-2021 Evaluation note* Encounter Date Diagnosis Assessment Notes Treatment Notes Treatment Clinical Notes Aug, Screening for colon cancer (ICD-10 - Z12.11) [facility] Other 11-04-2021 Evaluation note* Encounter Date Diagnosis [...] back. did not discuss this in office. [facility] Other discharge summary Author Barbie Osborn [facility] September 11, 2023 12:46pm Note Date/Time September 11, 2023 1 2:34pm [facility] [address] [place] [address] Discharge Summary Signed Patient: Gage Lugo MR#: [id number] : 1950 Acct:[id number] Age/Sex: 73 / M Adm Date: 3 Loc: Room: [address] [place] [address]: Barbie Osborn MD Copies to: [...] % (Auto) 60.7, Lymph % (Auto) 21.8, Kleberg % (Auto) 12.6, Eos % (Auto) 4.4, Baso % (Auto) 0.5, Nucleat RBC Rel Count 0.0, Neut # (Auto) 4.8, Lymph # (Auto) 1.7, [place] # (Auto) 1.0 H, Eos # (Auto) 0.4, Baso # (Auto) 0.0 09/10/23 21:16: POC Glucose 183 09/10/23 16:12: POC Glucose 193 09/10/23 04:39: CA 19-9 Antigen 23 09/09/23 13:43: Serum Total Protein 5.6 L, Albumin (Send Out) 3.2, Globulin (PEP) 2.4, Albumin/Globulin (PEP) 1.3, Nlxtr-2-Jeithvpce 0.2, Cbzpo-8-Xoiglacfv 0.7, Beta Globulins 0.7, Gamma Globulins 0.8, M-Donaldo Not observed, PEP Note , IgG 793, IgA 159, IgM 47, Serum Immunofixation , Free [place] LC, Quant 52.6 H, Free Lambda LC, Quant 28.0 H, Free [place]/Lambda Ratio 1.88 H Exam Physical Exam Vital [...] Chest Pain) 30 Days Qty: 30 2RF xkesoreq-ebf-dzutarb gluconate [Centrum] 9 mg iron/ 15 mL [...] - 10/16/23 9:10 am Documented By: Barbie Osbron MD 09/11/23 1232 Signed By: <Electronically signed by Barbie Osborn MD> 09/11/23 1246 [facility] Work Phone: Discharge summary Author Matheus Robison [facility] Note Date/Time October 06, 2024 1: 49pm [facility] [address] [place] [address] Discharge Summary Signed Patient: Gage Lugo MR#: [id number] : 1950 Acct:[id number] Age/Sex: 74 / M Adm Date: 4 Loc: Room: [address] [place] [address]: Matheus Robison MD Copies to: MD Lolita Salinas, DO~ Providers Date of Discharge: 10/06/24 Discharging Provider: Matheus Robison Primary Care Provider: Lolita Adorno Consults: 10/04/24 19:14 Consult to Nephrology Routine Comment: Consulting Provider: Tito Martinez Has Provider Been Notified: Yes Date of Notification: 10/05/24 Time of Notification: 07:34 Reason for Consult: Hyper/Hypo Kalemia Discharge Diagnosis (1) Acute hyperglycemia: (2) Dyslipidemia: (3) CAD (coronary artery disease): (4) Diabetes: (5) HTN (hypertension): (6) Hypertensive urgency: (7) Acute hyperkalemia: Final Diagnosis Final Discharge Diagnosis: Acute hyperkalemia and hypertensive urgency Summary Hospital Course Hospital course: This is a 74-year-old male with significant past medical history of hypertension, CKD stage IV, history of CAD status post stent, diabetes, hyperlipidemia presented to [facility] ED for hyperkalemia. Patient had had a lab work done at PCP and was recommended to come to [facility] ED for elevated potassium. Patient denied any symptoms like chest pain shortness of breath palpitation. 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 Lab work here shows potassium of 6.1 down from 6.6 done in the lab by PCP. He is bicarb was 19.7 and his creatinine was 2.62. His glucose waselevated to 455. His liver enzymes was within normal limit. EKG bedside shows normal sinus rhythm. Patient got insulin and Lokelma in the ED. his potassium has improved and is currently 4.9. His creatinine has slightly increased. Patient is having good urine output. His blood pressure has also improved significantly and is currently normotensive. Block Paver recommended continuing clonidine and discontinuing spironolactone on discharge. He is also recommended to hold on Lasix until seen by PCP/lock and dam operator. He is also recommended to get a outpatient BMP before seeing his PCP/lock and dam operator. His urinalysis was suggestive of UTI with urine culture growing E. coli which was pansensitive. He got ceftriaxone 2 doses here and needs switch to oral antibiotics Augmentin on discharge which she is recommended to continue for 5 more days. Patient is asymptomatic and denies any complaints and is fit for discharge and is going home today Condition Condition at Discharge: Fair Time Spent with Patient Time spent providing/coordinating discharge services (# min): 37 Discharge Plan Discharge Plan Patient Disposition: Home Activity: No Activity Restriction Diet: Diabetic and Other Comment: Low potassium diet Instructions: Know your Meds Prescriptions: New amoxicillin-pot clavulanate [Augmentin] 500-125 mg tablet 1 tab PO Q8HR 5 Days Qty: 15 0RF clonidine HCl 0.2 mg tablet 0.2 mg PO Q12HR Qty: 60 0RF Continued ferrous sulfate 325 mg (65 mg iron) tablet See Rx Instructions .ROUTE .COMPLEX Qty: 90 0RF Dose Instruction: TAKE 1 TABLET EVERY MORNING Rx Instructions: TAKE 1 TABLET EVERY MORNING cyclobenzaprine 10 mg tablet See Rx Instructions .ROUTE .COMPLEX Qty: 30 2RF Dose Instruction: TAKE 1 TABLET BY MOUTH DAILY AT BEDTIME NEEDED FOR BACK SPASMS Rx Instructions: TAKE 1 TABLET BY MOUTH DAILY AT BEDTIME NEEDED FOR BACK SPASMS nitroglycerin 0.4 mg Tablet, Sublingual 0.4 mg Sublingual Q5M PRN (Reason: Chest Pain) 30 Days Qty: 30 2RF Centrum 9 mg iron/ 15 mL (15 mL) Liquid 15 ml PO DAILY atorvastatin 20 mg Tablet 20 mg PO QHS Patient Comments: 20mg filled outpatient, has always received 80mg at this facility with good effect isosorbide mononitrate 30 mg tablet extended release [...] Further refills, or dose adjustment, per PCP pantoprazole 40 mg tablet,delayed release (DR/EC) PO Patient Comments: per pt is taking Pepcid 20 mg daily not this glipizide 5 mg tablet Patient Comments: pt is no longer taking this med per cetirizine 10 mg tablet 10 mg PO BID famotidine 20 mg tablet 20 mg PO DAILY gabapentin 300 mg capsule 300 mg PO BID insulin glargine [Lantus Solostar U-100 Insulin] 100 unit/mL (3 mL) insulin pen 10 unit subcut BID hydralazine 100 mg tablet 100 mg PO TID ergocalciferol (vitamin D2) 1,250 mcg (50,000 unit) capsule 1,250 mcg PO QWEEK Qty: 14 1RF Patient Comments: tuesdays Held furosemide 40 mg tablet 40 mg PO DAILY Hold Instructions: Resume on 10/13/24. Please hold Lasix until seen by your PCP/lock and dam operator. Discontinued spironolactone 25 mg tablet 25 mg PO DAILY Qty: 90 1RF Other Ambulatory Orders: Basic Metabolic Panel (Routine) Timeframe: 20241008 Location: Determined by Patient Ordered By: Matheus Robison Follow Up: Nette Holden MD [Active Staff] - 12/20/24 1:00 pm Lolita Adorno DO [Primary Care Provider] - 10/12/24 11:00 am (Post hospital appointment. Please call to reschedule if needed.) Exam Physical Exam Vital Signs: Temp Pulse Resp BP Pulse Ox O2 Del Method 97.9 F 67 16 111/64 95 Room Air 10/06/24 13:04 10/06/24 13:04 10/06/24 13:04 10/06/24 13:04 10/06/24 13:04 10/06/24 13:04 Narrative: General: Awake alert, no acute distress HEENT: head atraumatic, normocephalic, moist mucous membranes Neck: supple no masses, no lymphadenopathy CVS: regular rate and rhythm, no murmurs or gallops Respiratory: clear to auscultation bilaterally, no wheezing or crackles, symmetric expansion GI: soft, nondistended, nontender, positive bowel sounds with no organomegaly Extremity: moves all extremities, no restrictions of movements, no calf tenderness Neuro: AOx3, CN II-VII intact. Moves all extremities in all planes of motion. Skin: intact no rashes or lesions Diagnostic Studies Completed and Pending Studies Pending studies at discharge: 10/07/24 05:00 Complete Blood Count Auto Diff IN AM Comprehensive Metabolic Panel [CHEM] IN AM 10/08/24 05:00 Complete Blood Count Auto Diff IN AM Comprehensive Metabolic Panel [CHEM] IN AM 10/09/24 05:00 Complete Blood Count Auto Diff IN AM 10/10/24 05:00 Complete Blood Count Auto Diff IN AM 10/11/24 05:00 Complete Blood Count Auto Diff IN AM 10/12/24 05:00 Complete Blood Count Auto Diff IN AM 10/13/24 05:00 Complete Blood Count Auto Diff IN AM 10/14/24 05:00 Complete Blood Count Auto Diff IN AM Labs on day of discharge: 10/06/24 11:17: POC Glucose 192, POC Glucose Comment Glu2: cleaned meter 10/06/24 06:41: Corrected WBC 7.5, Uncorrected WBC Count 7.5, RBC 4.00, Hgb 10.9 L, Hct 33.7 L, MCV 84.1, MCH 27.2 L, MCHC 32.3 L, RDW 13.4, Plt Count 175, MPV 8.4, Neut % (Auto) 46.0, Lymph % (Auto) 37.3, [place] % (Auto) 12.9, Eos % (Auto) 3.3, Baso % (Auto) 0.5, Nucleat RBC Rel Count 0.1, Neut # (Auto) 3.5, Lymph # (Auto) 2.8, Kleberg # (Auto) 1.0 H, Eos # (Auto) 0.2, Baso # (Auto) 0.0, PHA Creatinine Clear 19.49, Sodium 136, Potassium 4.9, Chloride 107, Carbon Dioxide 24.1, Anion Gap 9.8, BUN 50 H, Creatinine 3.00 H, Est GFR (CKD-EPI) 21.133, Glucose 79, Calcium 8.9, Total Bilirubin 0.4, AST 12 L, ALT 14, Alkaline Phosphatase 79, Total Protein 6.0 L, Albumin 3.4 L, Globulin 2.6, Albumin/Globulin Ratio 1.3 10/06/24 06:08: POC Glucose 89 Documented By: Matheus Robison MD 10/06/24 1339 Signed By: <Electronically signed by Matheus Robison MD> 10/06/24 1349 [facility] Work Phone: Discharge summary Author Matheus Robison [facility] Note Date/Time October 08, 2024 12 :41pm [facility] ENTER [address] [place] [address] Discharge Summary Signed with Addenda Patient: Gage Lugo MR#: [id number] : 1950 Acct:[id number] Age/Sex: 74 / M Adm Date: 5 Loc: Room: [address] [place] [address]: Matheus Robison MD Copies to: MD Lolita Salinas, DO~ ADDENDUM1 Discharge summary-nephrology is also recommended [facility] daily for hyperkalemia and outpatient BMP and 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 Addendum Documented By: Matheus Robison MD 10/08/24 1241 Addendum Signed By: <Electronically signed by Matheus Robison MD> 10/08/24 1241 Providers Date of Discharge: 10/08/24 Discharging Provider: Matheus Robison Primary Care Provider: Lolita Adorno Consults: 10/06/24 17:18 Consult to Nephrology Routine Comment: Consulting Provider: Tito Martinez Has Provider Been Notified: Yes Date of Notification: 10/06/24 Time of Notification: 18:14 Reason for Consult: Acute Kidney Injury Hyper/Hypo Kalemia Discharge Diagnosis (1) Chronic renal insufficiency: (2) Near syncope: (3) Diabetes mellitus: (4) Acute hyperkalemia: (5) Chronic kidney disease, stage IV (severe): (6) Hypertensive urgency: (7) E. coli UTI: Final Diagnosis Final Discharge Diagnosis: Acute hyperkalemia and MEAGHAN Summary Hospital Course Hospital course: 1) Chronic renal insufficiency: (2) Near syncope: (3) Diabetes mellitus: (4) Acute hyperkalemia: (5) Chronic kidney disease, stage IV (severe): (6) Hypertensive urgency: (7) E. coli UTI: This is a 74-year-old male with significant past medical history of hypertension, CKD stage IV, history of CAD status post stent, diabetes, hyperlipidemia who was admitted here for hyperkalemia on the lab work with hypertensive urgency which was well-controlled and was discharged today. His daughter picked him up and while he was driving back he complained of having some nausea vomiting and lightheadedness and ask her to bring him back to ED. In the ED he was found to be hypertensive. Lab work shows no leukocytosis with stable hemoglobin. Potassium is slightly up to 5.5 from 4.9 and creatinine is uptrending and is 3.25 today. His liver enzymes are unremarkable. Patient got a bolus of IV fluid with Zofran and Lokelma in the ED. during the admission patient was also started on ceftriaxone for E. coli UTI which was pansensitive which was switched to levofloxacin for concern of MEAGHAN. During his hospital admission his symptoms improved. His potassium is down to 4.2. 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 He is also recommended low potassium diet. He has completed 5-day course of antibiotics during this and last Hospital admission Condition Condition at Discharge: Stable Time Spent with Patient Time spent providing/coordinating discharge services (# min): 38 Discharge Plan Discharge Plan Patient Disposition: Home Activity: No Activity Restriction Diet: Renal and Other Comment: Low potassium diet Instructions: Know your Meds Prescriptions: New clonidine HCl 0.1 mg Tablet 0.1 mg PO Q12HR 60 Days Qty: 120 0RF Continued ferrous sulfate 325 mg (65 mg iron) tablet See Rx Instructions .ROUTE .COMPLEX Qty: 90 0RF Dose Instruction: TAKE 1 TABLET EVERY MORNING Rx Instructions: TAKE 1 TABLET EVERY MORNING cyclobenzaprine 10 mg tablet See Rx Instructions .ROUTE .COMPLEX Qty: 30 2RF Dose Instruction: TAKE 1 TABLET BY MOUTH DAILY AT BEDTIME NEEDED FOR BACK SPASMS Rx Instructions: TAKE 1 TABLET BY MOUTH DAILY AT BEDTIME NEEDED FOR BACK SPASMS nitroglycerin 0.4 mg Tablet, Sublingual 0.4 mg Sublingual Q5M PRN (Reason: Chest Pain) 30 Days Qty: 30 2RF Centrum 9 mg iron/ 15 mL (15 mL) Liquid 15 ml PO DAILY atorvastatin 20 mg Tablet 20 mg PO QHS Patient Comments: 20mg filled outpatient, has always received 80mg at this facility with good effect isosorbide mononitrate 30 mg tablet extended release [...] Further refills, or dose adjustment, per PCP furosemide 40 mg tablet 40 mg PO DAILY pantoprazole 40 mg tablet,delayed release (DR/EC) 40 mg PO DAILY Patient Comments: per pt is taking Pepcid 20 mg daily not this glipizide 5 mg tablet 5 mg PO DAILY Patient Comments: pt is no longer taking this med per cetirizine 10 mg tablet 10 mg PO BID famotidine 20 mg tablet 20 mg PO DAILY gabapentin 300 mg capsule 300 mg PO BID insulin glargine [Lantus Solostar U-100 Insulin] 100 unit/mL (3 mL) insulin pen 10 unit subcut BID hydralazine 100 mg tablet 100 mg PO TID ergocalciferol (vitamin D2) 1,250 mcg (50,000 unit) capsule 1,250 mcg PO QWEEK Qty: 14 1RF Patient Comments: tuesdays Discontinued amoxicillin-pot clavulanate [Augmentin] 500-125 mg tablet 1 tab PO Q8HR 5 Days Qty: 15 0RF clonidine HCl 0.2 mg tablet 0.2 mg PO Q12HR Qty: 60 0RF Other Ambulatory Orders: Basic Metabolic Panel (Routine) Timeframe: 20241012 Location: Determined by Patient Ordered By: Tito Martinez Basic Metabolic Panel (Routine) Timeframe: 3 Days Location: Determined by Patient Ordered By: Matheus Robison Follow Up: Nette Holden MD [Active Staff] - 12/20/24 1:00 pm (Please keep your appointment as scheduled.) Lolita Adorno DO [Primary Care Provider] - 10/12/24 11:00 am (Post hospital appointment. Please call to reschedule if needed.) Exam Physical Exam Vital Signs: Temp Pulse Resp BP Pulse Ox O2 Del Method 97.3 F L 66 18 126/68 95 Room Air 10/08/24 07:37 10/08/24 07:37 10/08/24 07:37 10/08/24 07:37 10/08/24 07:37 10/08/24 07:37 Narrative: General: Awake alert, no acute distress HEENT: head atraumatic, normocephalic, moist mucous membranes Neck: supple no masses, no lymphadenopathy CVS: regular rate and rhythm, no murmurs or gallops Respiratory: clear to auscultation bilaterally, no wheezing or crackles, symmetric expansion GI: soft, nondistended, nontender, positive bowel sounds with no organomegaly Extremity: moves all extremities, no restrictions of movements, no calf tenderness Neuro: AOx3, CN II-VII intact. Moves all extremities in all planes of motion. Skin: intact no rashes or lesions Diagnostic Studies Completed and Pending Studies Pending studies at discharge: 10/09/24 05:00 Complete Blood Count Auto Diff IN AM Comprehensive Metabolic Panel [CHEM] IN AM 10/10/24 05:00 Complete Blood Count Auto Diff IN AM Comprehensive Metabolic Panel [CHEM] IN AM 10/11/24 05:00 Complete Blood Count Auto Diff IN AM 10/12/24 05:00 Complete Blood Count Auto Diff IN AM 10/13/24 05:00 Complete Blood Count Auto Diff IN AM 10/14/24 05:00 Complete Blood Count Auto Diff IN AM 10/15/24 05:00 Complete Blood Count Auto Diff IN AM 10/16/24 05:00 Complete Blood Count Auto Diff IN AM Labs on day of discharge: 10/08/24 11:13: POC Glucose 246 10/08/24 06:33: POC Glucose 70 10/08/24 05:51: Corrected WBC 7.5, Uncorrected WBC Count 7.5, RBC 4.01, Hgb 10.9 L, Hct 33.0 L, MCV 82.3 L, MCH 27.2 L, MCHC 33.1, RDW 13.4, Plt Count 188, MPV 8.3, Neut % (Auto) 49.3, Lymph % (Auto) 34.9, Kleberg % (Auto) 12.6, Eos % (Auto) 2.7, Baso % (Auto) 0.5, Nucleat RBC Rel Count 0.1, Neut # (Auto) 3.7, Lymph # (Auto) 2.6, Kleberg # (Auto) 0.9 H, Eos # (Auto) 0.2, Baso # (Auto) 0.0, PHA Creatinine Clear 20.20, Sodium 137, Potassium 4.2, Chloride 104, Carbon Dioxide 24.1, Anion Gap 13.1, BUN 63 H, Creatinine 3.16 H, Est GFR (CKD-EPI) 19.856, Glucose 57 L, Calcium 8.7, Total Bilirubin 0.5, AST 12 L, ALT 11, Alkaline Phosphatase 84, Total Protein 5.9 L, Albumin 3.6, Globulin 2.3, Albumin/Globulin Ratio 1.6 10/07/24 20:34: POC Glucose 188 10/07/24 16:21: POC Glucose 134 Documented By: Matheus Robison MD 10/08/24 1230 Signed By: <Electronically signed by Matheus Robison MD> 10/08/24 1235 [facility] Work Phone: Evaluation noteNo InformationNort [employer] Other Evaluation noteNo assessment information available [facility] Work Phone: Evaluation note* Diagnosis Onset Date Resolution Status Accelerated hypertension acu te CAD (coronary artery disease) acute Diabetes mellitus with hyperglycemia acute Hyperlipemia acute Leg weakness, bilateral acut e Lumbar stenosis with neurogenic claudication acute Nausea acute Spondylolisthesis, lumbar region acute [facility] Work Phone: Evaluation note* Diagnosis Onset Date Resolution Status Abdominal pain acute Accelerated hypertension acu te Acute kidney injury superimposed on CKD acute MEAGHAN (acute kidney injury) ac ivan Anemia of renal disease acut e Atypical chest pain acute CAD (coronary artery disease) acute Chronic kidney disease, stage III (moderate) acute Chronic pancreatitis acute Duodenitis acute Dyslipidemia acute Elevated troponin acute [id number] acute Hypertensive emergency acute Proteinuria acute Stented coronary artery acut e Type 2 diabetes mellitus wit h diabetic chronic kidney disease acute Diabetes [facility] Work Phone: Evaluation note* Diagnosis 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of [place] coronary artery of [place] heart without angina pectoris Essential hypertension Unspecified essential hypertension History of NM (myocardial infarction) Old myocardial infarction Mixed hyperlipidemia S/P PTCA (percutaneous transluminal coronary angioplasty) Postsurgical percutaneous transluminal coronary angioplasty status Stage 3a chronic kidney disease (CMS/HCC) Current smoker on some days Type 2 diabetes mellitus without complication, with long-term current use of insulin ([facility]) Overweight with body mass index (BMI) of 27 to 27.9 in adult Atherosclerotic heart disease of [place] coronary artery without angina pectoris documented in this encounter [facility] Work Phone: Evaluation note* Diagnosis Onset Date Resolution Status Chronic kidney disease, stage III (moderate) acute Hyperlipemia acute Type 2 diabetes mellitus wit h diabetic chronic kidney disease [facility] Work Phone: evaluation note* Diagnosis Onset Date Resolution Status Chronic kidney disease, stage III (moderate) acute Hyperlipemia acute Type 2 diabetes mellitus wit h diabetic chronic kidney disease acute Acute kidney injury superimposed on CKD acute Epigastric pain acute [facility] Work Phone: Evaluation note* Diagnosis Onset Date Resolution Status Chronic kidney disease, stage III (moderate) acute Hyperlipemia acute Type 2 diabetes mellitus wit h diabetic chronic kidney disease acute Acute kidney injury superimposed on CKD acute Epigastric pain acute Type 2 diabetes mellitus wit h diabetic chronic kidney disease [facility] Work Phone: evaluation note* Diagnosis Onset Date Resolution Status Chronic kidney disease, stage III (moderate) acute Hyperlipemia acute Type 2 diabetes mellitus wit h diabetic chronic kidney disease acute Acute kidney injury superimposed on CKD acute Epigastric pain acute Chronic kidney disease, stage III (moderate) acute HTN (hypertension) acute Medicare annual wellness visit, subsequent acute Type 2 diabetes mellitus wit h diabetic chronic kidney disease acute [facility] Work Phone: Evaluation note* Diagnosis Onset Date Resolution Status Chronic kidney disease, stage III (moderate) acute HTN (hypertension) acute Medicare annual wellness visit, subsequent acute Type 2 diabetes mellitus wit h diabetic chronic kidney disease acute Anemia of renal disease acut e Chronic kidney disease, stage III (moderate) acute Dyslipidemia acute [id number] acute Secondary hyperparathyroidism acute Type 2 diabetes mellitus wit h diabetic chronic kidney disease acute [facility] Work Phone: Evaluation note* Diagnosis Onset Date Resolution Status Anemia of renal disease acut e Chronic kidney disease, stage III (moderate) acute Dyslipidemia acute [id number] acute Secondary hyperparathyroidism acute Type 2 diabetes mellitus wit h diabetic chronic kidney disease acute Type 2 diabetes mellitus wit h diabetic chronic kidney disease acute [facility] Work Phone: Evaluation note* Diagnosis Multiple thyroid nodules (CMS/HCC)- Primary Nontoxic multinodular goiter [facility] Diagnosis Neurogenic pain of right lower extremity- Primary Pain in right lower leg Acute pain of both shoulders Stenosis of cervical spine with myelopathy (HCC) Lumbar stenosis with neurogenic claudication Spinal stenosis, lumbar region, with neurogenic claudication Pain in right lower leg Lumbar stenosis with neurogenic claudication Spinal stenosis, lumbar region, with neurogenic claudication 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) Paralysis, unspecified Coronary artery disease involving [place] coronary artery of [place] heart without angina pectoris Abnormal ECG Nonspecific abnormal electrocardiogram (ECG) (EKG) documented in this [facility] Author Matheus Robison [facility] Note Date/Time October 06, 2024 5: 51pm [facility] EN[facility] [address] [place] [address] Hospitalist H&P Signed with Addenda Patient: Gage Lugo MR#: [id number] : 1950 Acct:[id number] Age/Sex: 74 / M Adm Date: 5 Loc: 3T Room: 4Q7227-2 Type: ADM IN Attending Dr: Matheus Robison MD Copies to: MD Lolita Salinas, ~ ADDENDUM1 -Complicated UTI -Recent urinalysis suggestive of UTI with urine culture growing pansensitive E. coli. -Plan: -Patient started on levofloxacin 750 mg daily for total of 5 days. Addendum Documented By: Matheus Robison MD 10/06/241750 Addendum Signed By: <Electronically signed by Matheus Robison MD> 10/06/241750 HPI DATE OF EXAMINATION: 10/06/24 CHIEF COMPLAINT: Nausea vomiting and lightheadedness HISTORY OF PRESENT ILLNESS: This is a 74-year-old male with significant past medical history of hypertension, CKD stage IV, history of CAD status post stent, diabetes, hyperlipidemia who was admitted here for hyperkalemia on the lab work with hypertensive urgency which was well-controlled and was discharged today. His daughter picked him up and while he was driving back he complained of having some nausea vomiting and lightheadedness and ask her to bring him back to ED. In the ED he was found to be hypertensive. Lab work shows no leukocytosis with stable hemoglobin. Potassium is slightly up to 5.5 from 4.9 and creatinine is uptrending and is 3.25 today. His liver enzymes are unremarkable. Patient got a bolus of IV fluid with Zofran and Lokelma in the ED. Review of Systems Review of Systems All other systems reviewed & are negative unless noted below or in HPI [facility] Medical History (Updated 10/06/24 @ 17:38 by Matheus Robison MD) History of cataract Poor historian Smoker Kidney stone Myocardial infarct 2 STENTS Diabetes Hyperlipemia HTN (hypertension) Surgical History History of back surgery Neck History of orthopedic surgery 1st rib removed History of cardiac catheterization H/O heart artery stent Family History Sister Brain aneurysm Brother Myocardial infarction Mother Diabetes mellitus, type 2 Father Diabetes Mother Diabetes Presence of cardiac pacemaker Social History Smoking Status: Current every day smoker Tobacco Type: cigarettes Substance Use Type: None Meds Medications and Allergies Allergies acetaminophen (Percocet) Allergy (Unknown, Verified 10/06/24 15:19) swelling of throat aspirin Allergy (Unknown, Verified 10/06/24 15:19) Swelling of Lip/Tongue/Throat, lips turn blue if takes 2 oxycodone (From Percocet) Allergy (Unknown, Verified 10/06/24 15:19) Swelling of Lip/Tongue/Throat, swelling of throat amlodipine Adverse Reaction (Verified 10/06/24 15:19) Edema Home Medications nitroglycerin 0.4 mg sublingual tablet 0.4 mg sublingual Q5M PRN Chest Pain 30 days #30 tabs 08/26/17 [Rx Confirmed 10/06/24] dtfdwogg-edds-kdpeydk gluconate 9 mg iron/15 mL (15 mL) oral liquid (Centrum) 15ml PO DAILY 08/08/20 [History Confirmed 10/06/24] atorvastatin 20 mg tablet 20 mg PO QHS 08/09/20 [History Confirmed 10/06/24] aspirin 81 mg chewable tablet 81 mg PO QAM 09/18/22 [History Confirmed 10/06/24] cyanocobalamin (vitamin B-12) 1,000 mcg tablet (Vitamin B-12) 1,000 mcg PO QAM 09/18/22 [History Confirmed 10/06/24] isosorbide mononitrate 30 mg tablet,extended release 24 hr 30 mg PO QAM 09/18/22[History Confirmed 10/06/24] carvedilol 25 mg tablet 25 mg PO BID.WITH.MEALS 30 days #60 tabs 10/06/22 [Rx Confirmed 10/06/24] insulin glargine 100 unit/mL (3 mL) subcutaneous pen (Lantus Solostar U-100 Insulin) 10 unit subcut BID 12/25/23 [History Confirmed 10/06/24] cetirizine 10 mg tablet 10 mg PO BID 07/23/24 [History Confirmed 10/06/24] famotidine 20 mg tablet 20 mg PO DAILY 07/23/24 [History Confirmed 10/06/24] gabapentin 300 mg capsule 300 mg PO BID 07/23/24 [History Confirmed 10/06/24] ergocalciferol (vitamin D2) 1,250 mcg (50,000 unit) capsule 1,250 mcg PO QWEEK #14 caps 08/30/24 [Rx Confirmed 10/06/24] hydralazine 100 mg tablet 100 mg PO TID 08/30/24 [History Confirmed 10/06/24] cyclobenzaprine 10 mg tablet See Rx Instructions .Route .COMPLEX #30 tabs 10/04/24 [Rx Confirmed 10/06/24] ferrous sulfate 325 mg (65 mg iron) tablet See Rx Instructions .Route .COMPLEX #90 tabs 10/04/24 [Rx Confirmed 10/06/24] furosemide 40 mg tablet 40 mg PO DAILY 10/04/24 [History Confirmed 10/06/24] glipizide 5 mg tablet 5 mg PO DAILY 10/04/24 [History Confirmed 10/06/24] pantoprazole 40 mg tablet,delayed release 40 mg PO DAILY 10/04/24 [History Confirmed 10/06/24] amoxicillin 500 mg-potassium clavulanate 125 mg tablet (Augmentin) 1 tab PO Q8HR5 days #15 tabs 10/06/24 [Rx Confirmed 10/06/24] clonidine HCl 0.2 mg tablet 0.2 mg PO Q12HR #60 tabs 10/06/24 [Rx Confirmed 10/06/24] Exam Physical Exam Vital Signs: Temp Pulse Resp BP Pulse Ox O2 Del Method 97.7 F 77 18 159/76 H 97 Room Air 10/06/24 15:19 10/06/24 17:00 10/06/24 17:00 10/06/24 17:00 10/06/24 17:00 10/06/24 17:00 Narrative: General: Awake alert, no acute distress HEENT: head atraumatic, normocephalic, moist mucous membranes Neck: supple no masses, no lymphadenopathy CVS: regular rate and rhythm, no murmurs or gallops Respiratory: clear to auscultation bilaterally, no wheezing or crackles, symmetric expansion GI: soft, nondistended, nontender, positive bowel sounds with no organomegaly Extremity: moves all extremities, no restrictions of movements, no calf tenderness Neuro: AOx3, CN II-VII intact. Moves all extremities in all planes of motion. Skin: intact no rashes or lesions Results - Hospitalist H&P Lab Results Labs: Laboratory Last Values Corrected WBC 6.9 X10E3/uL (4.1-10.5) 10/06/24 15:09 Uncorrected WBC Count 6.9 x10E3/uL (4.1-10.5) 10/06/24 15:09 RBC 4.13 x10E6/uL (3.90-5.60) 10/06/24 15:09 Hgb 11.2 g/dL (13.0-17.0) L 10/06/24 15:09 Hct 34.3 % (38.8-50.0) L 10/06/24 15:09 MCV 83.1 fl (83.5-101) L 10/06/24 15:09 MCH 27.2 pg (27.5-35.2) L 10/06/24 15:09 MCHC 32.7 g/dL (32.5-35.6) 10/06/24 15:09 RDW 13.8 % (12.0-14.8) 10/06/24 15:09 Plt Count 182 x10E3/uL (150-450) 10/06/24 15:09 MPV 8.3 fl (6.6-10.1) 10/06/24 15:09 Neut % (Auto) 59.8 % (.) 10/06/24 15:09 Lymph % (Auto) 27.0 % (.) 10/06/24 15:09 Kleberg % (Auto) 9.9 % (.) 10/06/24 15:09 Eos % (Auto) 2.7 % (.) 10/06/24 15:09 Baso % (Auto) 0.6 % (.) 10/06/24 15:09 Nucleat RBC Rel Count 0.1 /100 WBC (0-0.5) 10/06/24 15:09 Neut # (Auto) 4.2 x10E3/uL (1.8-7.7) 10/06/24 15:09 Lymph # (Auto) 1.9 x10E3/uL (1.00-4.8) 10/06/24 15:09 [place] # (Auto) 0.7 x10E3/uL (0.0-0.8) 10/06/24 15:09 Eos # (Auto) 0.2 x10E3/uL (0.0-0.45) 10/06/24 15:09 Baso # (Auto) 0.0 x10E3/uL (0.0-0.2) 10/06/24 15:09 Monocyte Dist Width 17.85 % (0.00-20.00) 10/06/24 15:09 PHA Creatinine Clear 18.85 10/06/24 15:09 Sodium 133 mmol/L (136-145) L 10/06/24 15:09 Potassium 5.5 mmol/L (3.5-5.1) H 10/06/24 15:09 Chloride 101 mmol/L (98-107) 10/06/24 15:09 Carbon Dioxide 24.3 mmol/L (21.0-31.0) 10/06/24 15:09 Anion Gap 13.2 mEq/L (6.0-15.0) 10/06/24 15:09 BUN 55 mg/dL (7-25) H 10/06/24 15:09 Creatinine 3.25 mg/dL (0.70-1.30) H 10/06/24 15:09 Est GFR (CKD-EPI) 19.198 mL/Min 10/06/24 15:09 Glucose 240 mg/dL (70-100) H D 10/06/24 15:09 POC Glucose 225 mg/dl 10/06/24 16:41 Calcium 9.5 mg/dL (8.6-10.3) 10/06/24 15:09 Total Bilirubin 0.4 mg/dl (0.3-1.0) 10/06/24 15:09 AST 13 U/L (13-39) 10/06/24 15:09 ALT 14 U/L (7-52) 10/06/24 15:09 Alkaline Phosphatase 85 U/L (34-104) 10/06/24 15:09 Total Creatine Kinase 55 U/L (30-223) 10/06/24 15:09 Troponin I High Sens 14.0 pg/mL (0.0-20.0) 10/06/24 15:09 Total Protein 6.5 gm/dL (6.4-8.9) 10/06/24 15:09 Albumin 3.7 gm/dL (3.5-5.7) 10/06/24 15:09 Globulin 2.8 gm/dL 10/06/24 15:09 Albumin/Globulin Ratio 1.3 10/06/24 15:09 Urine Color Light-yellow (Yellow) 10/06/24 16:39 Urine Appearance Clear (Clear) 10/06/24 16:39 Urine pH 5.0 (5.0-9.0) 10/06/24 16:39 Ur Specific [place] 1.010 (1.001-1.030) 10/06/24 16:39 Urine Protein Trace mg/dL (Negative) H 10/06/24 16:39 Urine Glucose (UA) Normal mg/dL (Normal) 10/06/24 16:39 Urine Ketones Negative (Negative) 10/06/24 16:39 Urine Occult Blood Negative (Negative) 10/06/24 16:39 Urine Nitrite Negative (Negative) 10/06/24 16:39 Urine Bilirubin Negative (Negative) 10/06/24 16:39 Urine Urobilinogen Normal mg/dL (Normal) 10/06/24 16:39 Ur Leukocyte Esterase 4+ (Negative) H 10/06/24 16:39 Urine RBC 3-4 /HPF (0-4) 10/06/24 16:39 Urine WBC 20-49 /HPF (0-4) H 10/06/24 16:39 Urine WBC Clumps Moderate /LPF (None Seen) H 10/06/24 16:39 Ur Squamous Epith Cells 1-2 /HPF (0-2) 10/06/24 16:39 Urine Bacteria Rare /HPF (None Seen) 10/06/24 16:39 Hyaline Casts 0-8 /LPF (0-8) 10/06/24 16:39 Urine Mucus Rare /LPF 10/06/24 16:39 Assessment & Plan Assessment/Plan (1) Chronic renal insufficiency: (2) Near syncope: (3) Diabetes mellitus: (4) Acute hyperkalemia: (5) Chronic kidney disease, stage IV (severe): (6) Hypertensive urgency: (7) Acute hyperkalemia: (8) E. coli UTI: Plan This is a 74-year-old male with significant past medical history of hypertension, CKD stage IV, history of CAD status post stent, diabetes, hyperlipidemia who was admitted here for hyperkalemia on the lab work with hypertensive urgency which was well-controlled and was discharged today. His daughter picked him up and while he was driving back he complained of having some nausea vomiting and lightheadedness and ask her to bring him back to ED. In the ED he was found to be hypertensive. Lab work shows no leukocytosis with stable hemoglobin. Potassium is slightly up to 5.5 from 4.9 and creatinine is uptrending and is 3.25 today. His liver enzymes are unremarkable. Patient got a bolus of IV fluid with Zofran and Lokelma in the ED. during the admission patient was also started on ceftriaxone for E. coli UTI which was pansensitive Plan: -Admit in the regular nursing floor with telemetry -Continue to monitor blood pressure and lab work -Monitor urine output -Continue POA medication-aspirin, atorvastatin, carvedilol, clonidine, vitamin B, vitamin D, iron supplement, hydralazine, insulin glargine 10 units twice daily with sliding scale, Imdur -Nephrology consulted-appreciate recommendation Full code -DVT prophylaxis with Lovenox IP vs OBS Justification Based on differential dx, clinical care plan, and risk of adverse events, if untreated, in my clinical judgement this patient requires an acute care setting as: INPATIENT because of an expectation of an over 2 midnight stay. Estimated length of stay (# of days): 3 Documented By: Matheus Robison MD 10/06/24 1733 Signed By: <Electronically signed by Matheus Robison MD> 10/06/24 1740 [facility] Work Phone: [facility] general Narrative - Reported* Type Description Date Medical History High blood pressure Medical History DM T Medical History Heart attack Medical History 05/22 EGD and Colonos copy-2 cm tubular adenoma removed Medical History injections - back pain Surgical History neck Surgical History first rib removed Surgical History lower back Surgical History cardiac stents - Dr. Florian Hospitalization History heart attack 08/24/20 17 Hospitalization History see above [facility] Other [facility] general Narrative - Reported* Type Description Date [...] attack 08/24/20 17 Hospitalization History see above [facility] Other [facility] general Narrative - Reported* Type Description Date Medical History High blood pressure Medical History T2DM Medical History NM Medical History 05/22 EGD and Colonos copy-2 cm tubular adenoma removed Medical History injections - back pain Surgical History neck Surgical History first rib removed Surgical History lower back - injections Surgical History cardiac stents - Dr. Florian Surgical History Colonoscopy 09/12/21 Hospitalization History heart attack 08/24/20 17 Hospitalization History see above [facility] Other [facility] general Narrative - Reported* Type Description Date Medical History High blood pressure Medical History T2DM Medical History NM Medical History 05/22 EGD and Colonos copy-2 [...] attack 08/24/20 17 Hospitalization History see above [facility] Other [facility] general Narrative - Reported* Type Description Date Medical History High blood pressure Medical History T2DM Medical History NM Medical History 05/22 EGD and Colonos copy-2 [...] History see above Hospitalization History stomach pain [facility] [place] [facility] Other History of Present illness Narrative* Rai Alex Rmrubén, DO - 06/23/2024 1:15 PM EDT Subjective Patient ID: [id number] Presents today to do surveillance thyroid ultrasound on previously biopsied benign thyroid nodules.He has no complaints. Review of Systems ROS The specialty specific review of systems is noncontributory except for that recorded in the intake questionnaire and /or described in the history of present illness. Objective ENT Physical Exam Physical Exam Constitutional: Appearance: Normal appearance. HENT: Head: Atraumatic. Ears: External ear shows no abnormality Bilateral ear canals are clear Tympanic membranes intact, no evidence of middle ear fluid or other pathology. Nose: External nose appears to be normal Nares patent. Septal deviation to the right No evidence of polyp, mass or pus bilaterally. Oral Cavity: No evidence of trismus Lips appear normal Dental good Tongue of normal size and configuration, floor of mouth mucosa clear. Buccal mucosa shows no evidence of ulceration, mass or other abnormality Hard palate soft palate mucosa intact with no evidence of mass, ulceration or other abnormality Uvula of normal size and configuration Oropharynx: Tonsils Posterior pharyngeal wall Neck: No evidence of palpable abnormality Thyroid without evidence of thyromegaly or mass. No cervical lymphadenopathy present. Cardiovascular: Rate and Rhythm: Normal rate and regular rhythm. . Skin: General: Skin is warm and dry. Neurological: General: No focal deficit present. Mental Status: alert and oriented to person, place, and time. THYROID ULTRASOUND EXAMINATION Indication: Thyroid nodule After informed consent was obtained the patient was placed supine on the examining table. Patient was asked to extend the neck. Topical ultrasound jelly was used. The right lobe of the thyroid gland measures ___ 4.9 ____ cm in greatest dimension. There are a couple of subcentimeter hypoechoic nodule superiorly measuring up to about 8 mm with no internal vascular microcalcification. The previously biopsied large inferior nodule now measures 1.89 cm in greatest dimension with no internal vascularity microcalcification. The isthmus is unremarkable. The left lobe of the thyroid gland measures ___ 4.8 ____ cm greatest dimension. Very few scattered very very small hypoechoic lesions scattered throughout the parenchyma measuring up to about 3 mm. There is no adenopathy in the central compartment. There is no appreciable adenopathy in either lateral neck. Assessment/Plan Gage was seen today for thyroid nodule. Diagnoses and all orders for this visit: Multiple thyroid nodules (CMS/HCC) (Primary) Comments: We have been doing this now for a few years, there has been no appreciable change in the nodules. Previously benign. We do not need to do any further surveillance, I will see him back as needed [facility] Additional Instructions Take the antibiotic [...] swelling pain fever [facility]ills [facility] Work [facility] Discharge instructionsAmbulatory Orders* PT/OT/SP [...] it does not do not use the [facility]one[facility] Work Phone: Hospital Discharge instructions Additional Instructions Rest ice elevate your hand and knee Keep the splint on the hand do not remove apply ice keep it clean and dry Wear the knee immobilizer anytime you are up moving around to support and stabilize the knee Take 1 hydrocodone every 6 hours for severe pain Follow-up with [facility] Return to the ER for worsening pain additional injuries or any other concerns [facility] Work Phone: Hospital Discharge instructions Additional Instructions Monitor glucose levels as before.[facility] Work Phone: Progress note Author Tito Martinez [facility] Note Date/Time October 06, 2024 2: 24pm [facility] [address] [place] [address] Nephrology Progress Note Signed Patient: Gage Lugo MR#: [id number] : 1950 Acct:[id number] Age/Sex: 74 / M Adm Date: 4 Loc: 3T Room: [address] [place] [address] Type: ADM IN Attending Dr: Matheus Robison MD Copies to: ~ Date of Service: 10/06/2024 Subjective Subjective Narrative: 74-year-old male patient past medical history of chronic kidney disease stage IVfollows with Dr. Holden in the renal office, history of hyperkalemia, diabetes and hypertension, coronary disease status post PCI in the past. Patient was sent to the emergency room by his PCP for labs showing hyperkalemia potassium 6.6. In the emergency room potassium was found to be slightly better at 6.1. EKG did not show peaked T wave patient was treated medically with Lokelma, insulin and 1 dose of Lasix. Lab also showed creatinine 2.6 mg deciliter which is close to lab from last month of 2.4 mg deciliter I reviewed the patient's home medications. He is on isosorbide mononitrate, hydralazine, Lasix, and Aldactone for hypertension management. Patient stated he has been compliant with low potassium diet Systolic blood pressure when he presented to the hospital was elevated at 200. Patient was given 1 dose of labetalol. Blood pressure this morning 154/82 Patient has no complaint. Denied NSAID use. He stated his blood pressure has been elevated at home. He does monitor blood pressure twice daily Interval history: Patient was seen and examined in his room. Blood pressure improved with adding clonidine and Lasix Potassium is within normal limit. Lab this morning revealed slightly worsening of kidney function with creatinine up to 3.0 with better control of blood pressure and adding diuretics Patient has no complaint. Exam Physical Exam Vital Signs: Temp Pulse Resp BP Pulse Ox O2 Del Method 97.9 F 67 16 111/64 95 Room Air 10/06/24 13:04 10/06/24 13:04 10/06/24 13:04 10/06/24 13:04 10/06/24 13:04 10/06/24 13:04 Narrative: General: No acute distress Head :atraumatic normocephalic Eyes: PERRLA. Neck: no JVD no bruit. Heart: S1-S2. RRR Respiratory: Clear to auscultation. No wheezing. No crackles Abdomen: Soft, positive bowel sounds,no tenderness. Neurology: Awake alert oriented x3. No focal deficits Extremity. No cyanosis. No edema Skin: No skin rash Objective Intake and Output I&O: Intake & Output 10/03/24 10/04/24 10/05/24 10/06/24 23:59 23:59 23:59 23:59 Intake Total 500 / 500 1250 / 1250 200 / 200 Output Total 300 / 300 700 / 700 Balance 200 / 200 550 / 550 200 / 200 Weight 79.3 kg 79.3 kg 75.1 kg Meds and Allergies Meds: Active Medications Aspirin (Aspirin 81 Mg Tab.Chew) [facility] [place]: 10/05/25 08:59 Last Admin: 10/06/24 08:28 Dose: 81 mg Atorvastatin Calcium (Atorvastatin 20 Mg Tablet) 20 mg PO QHS [facility] Stop: 10/04/25 21:59 Last Admin: 10/05/24 20:53 Dose: 20 mg Carvedilol (Carvedilol 25 Mg Tablet) 25 mg PO BID.WITH.MEALS [facility] Stop: 10/05/25 07:59 Last Admin: 10/06/24 08:28 Dose: 25 mg Ceftriaxone Sodium (Ceftriaxone 1 Gm/10 Ml Syringe) 1 gm IV-PUSH DAILY@1630 [facility] Last Admin: 10/05/24 21:14 Dose: 1 gm Clonidine HCl (Clonidine 0.2 Mg Tablet) 0.2 mg PO BID [facility] Stop: 10/05/25 11:44 Last Admin: 10/06/24 08:28 Dose: 0.2 mg Cyanocobalamin (Cyanocobalamin 1,000 Mcg Tablet) 1,000 mcg PO QAM [facility] Stop: 10/05/25 08:59 Last Admin: 10/06/24 08:28 Dose: 1,000 mcg Cyclobenzaprine HCl (Cyclobenzaprine 10 Mg Tablet) 10 mg PO QHS PRN PRN Reason: Back Spasms Stop: 10/04/25 19:10 Last Admin: 10/04/24 21:44 Dose: 10 mg Dextrose (Dextrose 50% In Water 25 Gm/50 Ml Syringe) 25 gm IV-PUSH PRN PRN PRN Reason: Hypoglycemia Stop: 10/04/25 18:21 Last Admin: 10/04/24 18:56 Dose: 25 gm Dextrose (Dextrose 50% In Water 25 Gm/50 Ml Syringe) 0 gm IV-PUSH PRN PRN PRN Reason: Hypoglycemia Stop: 10/04/25 20:29 Enoxaparin Sodium (Enoxaparin 30 Mg/0.3 Ml Syringe) 30 mg SUBCUT DAILY@10 [facility] Stop: 10/05/25 09:59 Last Admin: 10/06/24 09:54 Dose: Not Given Ergocalciferol (Ergocalciferol 1,250 Mcg (50,000 Units) Capsule) 1,250 mcg PO Tu@0900 [facility] Stop: 10/05/25 08:59 Last Admin: 10/05/24 08:13 Dose: 1,250 mcg Ferrous Sulfate (Ferrous Sulfate 324 Mg Tablet.Dr) 324 mg PO DAILY.WITH.LUNCH [facility] Stop: 10/05/25 11:59 Last Admin: 10/06/24 12:31 Dose: 324 mg Furosemide (Furosemide 40 Mg Tablet) 40 mg PO BID@0800,1600 [facility] Stop: 10/05/25 15:59 Last Admin: 10/06/24 08:28 Dose: 40 mg Glucose (Dextrose 40% Gel 15 Gm Tube) 0 gm PO PRN PRN PRN Reason: Hypoglycemia Stop: 10/04/25 20:29 Hydralazine HCl (Hydralazine 50 Mg Tablet) 100 mg PO TID [facility] Stop: 10/04/25 21:59 Last Admin: 10/06/24 08:27 Dose: 100 mg Insulin Aspart (Insulin Aspart 300 Units/3 Ml) 0 units SUBCUT TID.[facility]; Protocol Stop: 10/04/25 21:59 Last Admin: 10/06/24 12:32 Dose: 1 units Insulin Glargine (Insulin Glargine 300 Units/3 Ml Insuln.Pen) 10 units SUBCUT BID [facility] Stop: 10/05/25 08:59 Last Admin: 10/06/24 08:28 Dose: 10 units Isosorbide Mononitrate (Isosorbide Mononitrate 24hr Er 30 Mg Tab.Er.24h) 30 mg PO QAM [facility] Stop: 10/05/25 08:59 Last Admin: 10/06/24 08:28 Dose: 30 mg Multivitamins (Multivitamin 1 Tab Tablet) 1 tab PO DAILY [facility] Stop: 10/05/25 08:59 Last Admin: 10/06/24 08:28 Dose: 1 tab Nitroglycerin (Nitroglycerin 0.4 Mg Tab.Subl) 0.4 mg SUBLINGUAL Q5M PRN PRN Reason: Chest Pain Stop: 10/04/25 19:08 Ondansetron HCl (Ondansetron 4 Mg/2 Ml Vial) 4 mg IV-PUSH Q8H PRN PRN Reason: Nausea And Vomiting Stop: 10/04/25 19:13 Sodium Chloride (Sodium Chloride 0.9 % 10 Ml Syringe) 0 ml IV-PUSH PRN PRN PRN Reason: Flush Stop: 10/04/25 17:11 Last Admin: 10/05/24 21:17 Dose: 10 ml Allergies acetaminophen (Percocet) Allergy (Unknown, Verified 10/04/24 17:12) swelling of throat aspirin Allergy (Unknown, Verified 10/04/24 17:12) Swelling of Lip/Tongue/Throat, lips turn blue if takes 2 oxycodone (From Percocet) Allergy (Unknown, Verified 10/04/24 17:12) Swelling of Lip/Tongue/Throat, swelling of throat amlodipine Adverse Reaction (Verified 10/04/24 17:12) Edema Results - Nephrology Labs 10/06/24 06:41 10/06/24 06:41 Labs: 10/06/24 06:41 BUN 50 H Creatinine 3.00 H Albumin 3.4 L Radiology Impressions Impressions - last 24 hours: Any impression(s) listed above is documentation that was entered by the reading physician into a diagnostic report(s) for Gage Lugo. I have reviewed the report(s) and am incorporating any findings in the treatment plan of this patient where applicable. A&P - Nephrology Assessment/Plan (1) Hyperkalemia: Assessment/Problem Details: Is likely related to advanced CKD and being on potassium sparing diuretic namelyAldactone. Patient has been compliant with low potassium diet. Patient presented with potassium 6.6. Hyperkalemia improved with medical treatment of Lokelma, Lasix and insulin (2) Chronic kidney disease, stage IV (severe): Assessment/Problem Details: Patient follows with Dr. 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 Baseline creatinine around 2.4 (3) Hypertensive chronic kidney disease with stage 1 through stage 4 chronic kidney disease, or unspecified chronic kidney disease: Assessment/Problem Details: Patient is on isosorbide mononitrate, hydralazine, Lasix and spironolactone at home for hypertension management. Blood pressure has been out of control at home. Patient said he has been following low-salt diet. Currently Aldactone onhold due to hyperkalemia. Blood pressure remains elevated (4) Type 2 diabetes mellitus with diabetic chronic kidney disease: Assessment/Problem Details: Patient has known history of type 2 diabetes. He is on glargine and glipizide for diabetes management. Patient presented with blood glucose level close to 400 and received insulin in the emergency room Plan * There is no indication for renal placement therapy. Slight increase in serum creatinine likely from better control of blood pressure and adding diuretics * Will stop Lasix * Hyperkalemia corrected with holding home spironolactone and adding Lasix. Will stop Lasix due to worsening kidney function * Please stop spironolactone at discharge * Blood pressure is well-controlled. Will continue same dose of clonidine, Coreg, hydralazine and losartan monitor rate. * Emphasized the need of strict low potassium diet. Patient can be discharged from nephrology standpoint. Please stop Lasix at discharge. Please stop spironolactone. Please add clonidine to the other bloodpressure medications. Please repeat renal function panel in 2 days after hospital discharge. Patient needs follow-up with Dr. Holden in a week after hospital discharge. Plan of care was discussed with the primary hospitalist service Documented By: Tito Martinez MD 10/06/24 1421 Signed By: <Electronically signed by Tito Martinez MD> 10/06/24 1424 [facility] Work Phone: Progress note Author Tito Martinez [facility] Note Date/Time October 07, 2024 12 :56pm [facility] [address] [place] [address] Nephrology Progress Note Signed Patient: Gage Lugo MR#: [id number] : 1950 Acct:[id number] Age/Sex: 74 / M Adm Date: 5 Loc: Room: 8B8605-1 Type: ADM IN Attending Dr: Mathues Robison MD Copies to: ~ Date of Service: 10/07/2024 Subjective Subjective Narrative: Narrative: 74-year-old male patient past medical history of chronic kidney disease stage IVfollows with Dr. Holden in the renal office, history of hyperkalemia, diabetes and hypertension, coronary disease status post PCI in the past. Patient was sent to the emergency room by his PCP for labs showing hyperkalemia potassium 6.6. In the emergency room potassium was found to be slightly better at 6.1. EKG did not show peaked T wave patient was treated medically with Lokelma, insulin and 1 dose of Lasix. Lab also showed creatinine 2.6 mg deciliter which is close to lab from last month of 2.4 mg deciliter I reviewed the patient's home medications. He is on isosorbide mononitrate, hydralazine, Lasix, and Aldactone for hypertension management. Patient stated he has been compliant with low potassium diet Systolic blood pressure when he presented to the hospital was elevated at 200. Patient was given 1 dose of labetalol. Blood pressure this morning 154/82 Patient has no complaint. Denied NSAID use. He stated his blood pressure has been elevated at home. He does monitor blood pressure twice daily Interval history: Patient was discharged yesterday with stable blood pressure. [facility] started to have nausea vomiting and dizziness. Patient reported back to the emergency room where he found to have creatinine 3.2 and potassium 5.5 along with elevated blood pressure. Patient was admitted. Patient was given Lokelma 1 dose. Patient also was found to have UTI and started on ceftriaxone Repeated lab this morning showed creatinine better at 3.0 and potassium down to 5.1. Blood pressure is well-controlled. Patient remains on hydralazine, clonidine, Coreg and isosorbide monitor rate. Patient has no complaint today. Patient was given IV bolus yesterday in the emergency room due to worsening kidney function. Currently off IV fluid Exam Physical Exam Vital Signs: Temp Pulse Resp BP Pulse Ox O2 Del Method 97.6 F 71 18 113/68 97 Room Air 10/07/24 12:00 10/07/24 12:00 10/07/24 12:00 10/07/24 12:00 10/07/24 12:10/07/24 12:00 Narrative: General: No acute distress Head :atraumatic normocephalic Eyes: PERRLA. Neck: no JVD no bruit. Heart: S1-S2. RRR Respiratory: Clear to auscultation. No wheezing. No crackles Abdomen: Soft, positive bowel sounds,no tenderness. Neurology: Awake alert oriented x3. No focal deficits Extremity. No cyanosis. No edema Skin: No skin rash Objective Intake and Output I&O: Intake & Output 10/04/24 10/05/24 10/06/24 10/07/24 23:59 23:59 23:59 23:59 Intake Total 500 / 500 500 / 500 Output Total 600 / 600 Balance -100 / -100 500 / 500 Weight 80 kg 80 kg Meds and Allergies Meds: Active Medications Acetaminophen (Acetaminophen 325 Mg Tablet) 650 mg PO Q6HR PRN PRN Reason: Pain Scale 1 - 3 or fever Stop: 10/06/25 17:29 Aspirin (Aspirin 81 Mg Tab.Chew) 81 mg PO [facility] Stop: 10/07/25 08:59 Last Admin: 10/07/24 08:10 Dose: 81 mg Atorvastatin Calcium (Atorvastatin 20 Mg Tablet) 20 mg PO QHS [facility] Stop: 10/06/25 21:59 Last Admin: 10/06/24 21:29 Dose: 20 mg Carvedilol (Carvedilol 25 Mg Tablet) 25 mg PO BID.WITH.MEALS [facility] Stop: 10/07/25 07:59 Last Admin: 10/07/24 08:10 Dose: 25 mg Clonidine HCl (Clonidine 0.1 Mg Tablet) 0.1 mg PO Q12HR [facility] Stop: 10/07/25 08:59 Last Admin: 10/07/24 09:45 Dose: Not Given Cyanocobalamin (Cyanocobalamin 1,000 Mcg Tablet) 1,000 mcg PO QAM [facility] Stop: 10/07/25 08:59 Last Admin: 10/07/24 08:10 Dose: 1,000 mcg Cyclobenzaprine HCl (Cyclobenzaprine 10 Mg Tablet) 10 mg PO QHS PRN PRN Reason: spasms Stop: 10/06/25 21:59 Dextrose (Dextrose 50% In Water 25 Gm/50 Ml Syringe) 0 gm IV-PUSH PRN PRN PRN Reason: Hypoglycemia Stop: 10/06/25 17:22 Enoxaparin Sodium (Enoxaparin 30 Mg/0.3 Ml Syringe) 30 mg SUBCUT DAILY@10 [facility] Stop: 10/07/25 09:59 Last Admin: 10/07/24 09:45 Dose: 30 mg Ergocalciferol (Ergocalciferol 1,250 Mcg (50,000 Units) Capsule) 1,250 mcg PO Tu@0900 [facility] Stop: 10/12/25 08:59 Ferrous Sulfate (Ferrous Sulfate 324 Mg Tablet.Dr) 324 mg PO DAILY [facility] Stop: 10/07/25 08:59 Last Admin: 10/07/24 08:10 Dose: 324 mg Gabapentin (Gabapentin 300 Mg Capsule) 300 mg PO BID [facility] Stop: 10/06/25 20:59 Last Admin: 10/07/24 08:09 Dose: 300 mg Glucose (Dextrose 40% Gel 15 Gm Tube) 0 gm PO PRN PRN PRN Reason: Hypoglycemia Stop: 10/06/25 17:22 Hydralazine HCl (Hydralazine 50 Mg Tablet) 100 mg PO TID [facility] Stop: 10/06/25 21:59 Last Admin: 10/07/24 08:10 Dose: 100 mg Levofloxacin (Levaquin) 500 mg in 100 mls @ 100 mls/hr IV Q48H [facility] Insulin Aspart (Insulin Aspart 300 Units/3 Ml) 0 units SUBCUT TID.WM.HS [facility]; Protocol Stop: 10/06/25 21:59 Last Admin: 10/07/24 11:54 Dose: 1 units Insulin Glargine (Insulin Glargine 300 Units/3 Ml Insuln.Pen) 10 units SUBCUT BID [facility] Stop: 10/06/25 20:59 Last Admin: 10/07/24 08:11 Dose: 10 units Isosorbide Mononitrate (Isosorbide Mononitrate 24hr Er 30 Mg Tab.Er.24h) 30 mg PO QAM [facility] Stop: 10/07/25 08:59 Last Admin: 10/07/24 08:09 Dose: 30 mg Loratadine (Loratadine 10 Mg Tablet) 10 mg PO BID [facility] Stop: 10/06/25 20:59 Last Admin: 10/07/24 08:09 Dose: 10 mg Magnesium Oxide (Magnesium Oxide 400 Mg Tablet) 400 mg PO BID [facility] Stop: 10/09/24 10:29 Last Admin: 10/07/24 10:11 Dose: 400 mg Multivitamins (Multivitamin 1 Tab Tablet) 1 tab PO DAILY [facility] Stop: 10/07/25 08:59 Last Admin: 10/07/24 08:10 Dose: 1 tab Nitroglycerin (Nitroglycerin 0.4 Mg Tab.Subl) 0.4 mg SUBLINGUAL Q5M PRN PRN Reason: Chest Pain Stop: 10/06/25 17:11 Ondansetron HCl (Ondansetron 4 Mg/2 Ml Vial) 4 mg IV-PUSH Q8H PRN PRN Reason: Nausea And Vomiting Stop: 10/06/25 17:17 Sodium Chloride (Sodium Chloride 0.9 % 10 Ml Syringe) 0 ml IV-PUSH PRN PRN PRN Reason: Flush Stop: 10/06/25 15:18 Last Admin: 10/06/24 21:34 Dose: 10 ml Sodium Zirconium Cyclosilicate (Sodium Zirconium Cyclosilicate 10 Gm Powd.Pack) 10 gm PO DAILY [facility]; Protocol Stop: 10/07/25 08:59 Last Admin: 10/07/24 09:45 Dose: 10 gm Allergies aspirin Allergy (Unknown, Verified 10/06/24 15:19) Swelling of Lip/Tongue/Throat, lips turn blue if takes 2 oxycodone (From Percocet) Allergy (Unknown, Verified 10/06/24 15:19) Swelling of Lip/Tongue/Throat, swelling of throat amlodipine Adverse Reaction (Verified 10/06/24 15:19) Edema Results - Nephrology Labs 10/07/24 05:07 10/07/24 05:07 Labs: 10/06/24 10/06/24 10/07/24 15:09 16:39 05:07 BUN 55 H 58 H Creatinine 3.25 H 3.09 H Phosphorus 4.4 Albumin 3.7 3.5 Urine Color Light-yellow Urine Appearance Clear Urine pH 5.0 Ur Specific [place] 1.010 Urine Protein Trace H Urine Glucose (UA) Normal Urine Ketones Negative Urine Occult Blood Negative Urine Nitrite Negative Ur Leukocyte Esterase 4+ H Urine RBC 3-4 Urine WBC 20-49 H Urine Bacteria Rare Radiology Impressions Impressions - last 24 hours: Any impression(s) listed above is documentation that was entered by the reading physician into a diagnostic report(s) for Gage Lugo. I have reviewed the report(s) and am incorporating any findings in the treatment plan of this patient where applicable. A&P - Nephrology Assessment/Plan (1) Acute kidney injury superimposed on CKD: Assessment/Problem Details: Acute kidney injury is likely from prerenal related to better control of blood pressure along being on Lasix l. Kidney function improved with the fluid bolus yesterday. Creatinine peaked at 3.3. Creatinine this morning 3.0. Baseline creatinine around 2.4 mg deciliter. Patient follows with Dr. 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 Patient treated with Lokelma during last admission since yesterday for potassium 5.5. Potassium this morning 5.1 (3) Hypertensive chronic kidney disease with stage 1 through stage 4 chronic kidney disease, or unspecified chronic kidney disease: Assessment/Problem Details: Blood pressure is well-controlled with the current blood pressure medications. (4) Diabetes: Assessment/Problem Details: Patient on glargine insulin twice a day along with insulin as part with meal. Diabetes seems well-controlled this morning Plan * Will reduce clonidine dose to 0.1 mg twice daily * Will continue same other blood pressure medications * Will start Lokelma 10 g p.o. daily * Low potassium diet * Keep blood glucose under good control to avoid osmotic diuresis and worsening hyperkalemia * Patient is on ceftriaxone for UTI treatment.. Urine culture on October 04 grew E. coli * Check CBC renal function panel in a.m. Documented By: Tito Martinez MD 10/07/24 1250 Signed By: <Electronically signed by Tito Martinez MD> 10/07/24 1256 [facility] Work Phone: Progress note Author Matheus Robison [facility] Note Date/Time October 07, 2024 1: 17pm [facility] EN[facility] [address] [place] [address] Hospitalist Progress Note Signed Patient: Gage Lugo MR#: [id number] : 1950 Acct:[id number] Age/Sex: 74 / M Adm Date: 01/01/2 5 Loc: 3T Room: 9D1681-0 Type: ADM IN Attending Dr: Matheus Robisno MD Copies to: ~ Date of Service: 10/07/2024 Subjective Subjective Narrative: Patient is lying in the bed comfortably and denies any complaints. Denies any nausea vomiting or any chest pain or shortness of breath. Potassium was 5.1. Creatinine is 3.09 and trending down. Magnesium was 1.6 and replaced. Blood pressure 117/63 mmHg Exam Physical Exam Vital Signs: Temp Pulse Resp BP Pulse Ox O2 Del Method 97.6 F 71 18 113/68 97 Room Air 10/07/24 12:00 10/07/24 12:00 10/07/24 12:00 10/07/24 12:00 10/07/24 12:10/07/24 12:00 Narrative: General: Awake alert, no acute distress HEENT: head atraumatic, normocephalic, moist mucous membranes Neck: supple no masses, no lymphadenopathy CVS: regular rate and rhythm, no murmurs or gallops Respiratory: clear to auscultation bilaterally, no wheezing or crackles, symmetric expansion GI: soft, nondistended, nontender, positive bowel sounds with no organomegaly Extremity: moves all extremities, no restrictions of movements, no calf tenderness Neuro: AOx3, CN II-VII intact. Moves all extremities in all planes of motion. Skin: intact no rashes or lesions Objective Lab Results 10/07/24 05:07 10/07/24 05:07 Microbiology Results Microbiology 10/06/24 16:39 Urine - Clean-Voided Midstream Urine Culture - Preliminary <9,000 colonies/ml mixed bacterial skin contaminants 1 Day Meds Allergies and Active Meds Allergies aspirin Allergy (Unknown, Verified 10/06/24 15:19) Swelling of Lip/Tongue/Throat, lips turn blue if takes 2 oxycodone (From Percocet) Allergy (Unknown, Verified 10/06/24 15:19) Swelling of Lip/Tongue/Throat, swelling of throat amlodipine Adverse Reaction (Verified 10/06/24 15:19) Edema Active Meds: Active Medications Generic Name Dose Route Start Last Admin Trade Name Freq PRN Reason Stop Dose Admin Acetaminophen 650 mg 10/06/24 17:30 Acetaminophen 325 Mg Tablet PO 10/06/25 17:29 Q6HR PRN Pain Scale 1 - 3 or fever Aspirin 81 mg 10/07/24 09:00 10/07/24 08:10 Aspirin 81 Mg Tab.Chew PO 10/07/25 08:59 81 mg QAM VAEN Administration Atorvastatin Calcium 20 mg 10/06/24 22:00 10/06/24 21:29 Atorvastatin 20 Mg Tablet PO 10/06/25 21:59 20 mg QHS VANE Administration Carvedilol 25 mg 10/07/24 08:00 10/07/24 08:10 Carvedilol 25 Mg Tablet PO 10/07/25 07:59 25 mg BID.WITH.MEALS VANE Administration Clonidine HCl 0.1 mg 10/07/24 09:00 10/07/24 09:45 Clonidine 0.1 Mg Tablet PO 10/07/25 08:59 Not Given Q12HR [facility] Cyanocobalamin 1,000 mcg 10/07/24 09:00 10/07/24 08:10 Cyanocobalamin 1,000 Mcg Tablet PO 10/07/25 08:59 1,000 mcg QAM VANE Administration Cyclobenzaprine HCl 10 mg 10/06/24 17:12 Cyclobenzaprine 10 Mg Tablet PO 10/06/25 21:59 QHS PRN spasms Dextrose 0 gm 10/06/24 17:23 Dextrose 50% In Water 25 Gm/50 Ml Syringe IV-PUSH 10/06/25 17:22 PRN PRN Hypoglycemia Enoxaparin Sodium 30 mg 10/07/24 10:00 10/07/24 09:45 Enoxaparin 30 Mg/0.3 Ml Syringe SUBCUT 10/07/25 09:59 30 mg DAILY@10 VANE Administration Ergocalciferol 1,250 mcg 10/12/24 09:00 Ergocalciferol 1,250 Mcg (50,000 Units) Capsule PO 10/12/25 08:59 Tu@0900 VANE Ferrous Sulfate 324 mg 10/07/24 09:00 10/07/24 08:10 Ferrous Sulfate 324 Mg Tablet.Dr PO 10/07/25 08:59 324 mg DAILY VANE Administration Gabapentin 300 mg 10/06/24 21:00 10/07/24 08:09 Gabapentin 300 Mg Capsule PO 10/06/25 20:59 300 mg BID VANE Administration Glucose 0 gm 10/06/24 17:23 Dextrose 40% Gel 15 Gm Tube PO 10/06/25 17:22 PRN PRN Hypoglycemia Hydralazine HCl 100 mg 10/06/24 22:00 10/07/24 08:10 Hydralazine 50 Mg Tablet PO 10/06/25 21:59 100 mg TID VANE Administration Levofloxacin 500 mg in 100 mls @ 100 mls/hr 10/08/24 18:30 Levaquin IV Q48H VANE Insulin Aspart 0 units 10/06/24 22:00 10/07/24 11:54 Insulin Aspart 300 Units/3 Ml SUBCUT 10/06/25 21:59 1 units TID.WM.HS VANE Administration Protocol Insulin Glargine 10 units 10/06/24 21:00 10/07/24 08:11 Insulin Glargine 300 Units/3 Ml Insuln.Pen SUBCUT 10/06/25 20:59 10 units BID VANE Administration Isosorbide Mononitrate 30 mg 10/07/24 09:00 10/07/24 08:09 Isosorbide Mononitrate 24hr Er 30 Mg Tab.Er.24h PO 10/07/25 08:59 30 mg QAM VANE Administration Loratadine 10 mg 10/06/24 21:00 10/07/24 08:09 Loratadine 10 Mg Tablet PO 10/06/25 20:59 10 mg BID VANE Administration Magnesium Oxide 400 mg 10/07/24 10:30 10/07/24 10:11 Magnesium Oxide 400 Mg Tablet PO 10/09/24 10:29 400 mg BID VANE Administration Multivitamins 1 tab 10/07/24 09:00 10/07/24 08:10 Multivitamin 1 Tab Tablet PO 10/07/25 08:59 1 tab DAILY VANE Administration Nitroglycerin 0.4 mg 10/06/24 17:12 Nitroglycerin 0.4 Mg Tab.Subl SUBLINGUAL 10/06/25 17:11 Q5M PRN Chest Pain Ondansetron HCl 4 mg 10/06/24 17:18 Ondansetron 4 Mg/2 Ml Vial IV-PUSH 10/06/25 17:17 Q8H PRN Nausea And Vomiting Sodium Chloride 0 ml 10/06/24 15:19 10/06/24 21:34 Sodium Chloride 0.9 % 10 Ml Syringe IV-PUSH 10/06/25 15:18 10 ml PRN PRN Administration Flush Sodium Zirconium Cyclosilicate 10 gm 10/07/24 09:00 10/07/24 09:45 Sodium Zirconium Cyclosilicate 10 Gm Powd.Pack PO 10/07/25 08:59 10 gm DAILY VANE Administration Protocol A&P - Hospitalist Assessment/Plan (1) Chronic renal insufficiency: (2) Near syncope: (3) Diabetes mellitus: (4) Acute hyperkalemia: (5) Chronic kidney disease, stage IV (severe): (6) Hypertensive urgency: (7) E. coli UTI: Plan This is a 74-year-old male with significant past medical history of hypertension, CKD stage IV, history of CAD status post stent, diabetes, hyperlipidemia who was admitted here for hyperkalemia on the lab work with hypertensive urgency which was well-controlled and was discharged today. His daughter picked him up and while he was driving back he complained of having some nausea vomiting and lightheadedness and ask her to bring him back to ED. In the ED he was found to be hypertensive. Lab work shows no leukocytosis with stable hemoglobin. Potassium is slightly up to 5.5 from 4.9 and creatinine is uptrending and is 3.25 today. His liver enzymes are unremarkable. Patient got a bolus of IV fluid with Zofran and Lokelma in the ED. during the admission patient was also started on ceftriaxone for E. coli UTI which was pansensitive which was switched to levofloxacin for concern of MEAGHAN. Plan: -Admit in the regular nursing floor with telemetry -Continue to monitor blood pressure and lab work -Monitor urine output -Continue POA medication-aspirin, atorvastatin, carvedilol, clonidine, vitamin B, vitamin D, iron supplement, hydralazine, insulin glargine 10 units twice daily with sliding scale, Imdur -Nephrology consulted-appreciate recommendation-recommended to reduce clonidine to 0.1 mg twice a day and also started on Lokelma and low potassium diet. -Continue on levofloxacin-will give for 2 more days for total of 5 days. -Replace magnesium Full code -DVT prophylaxis with Lovenox Documented By: Matheus Robison MD 10/07/24 1312 Signed By: <Electronically signed by Matheus Robison MD> 10/07/24 1318 [facility] Work Phone: Progress note [facility] Note Date/Time October 08, 2024 1: 44pm [facility] [address] [place] [address] Nephrology Progress Note Signed Patient: Gage Lugo MR#: [id number] : 1950 Acct:[id number] Age/Sex: 74 / M Adm Date: 5 Loc: Room: [address] [place] [address] Type: ADM IN Attending Dr: Matheus Robison MD Copies to: ~ Date of Service: 10/08/2024 Subjective Subjective Narrative: Narrative: 74-year-old male patient past medical history of chronic kidney disease stage IVfollows with Dr. Holden in the renal office, history of hyperkalemia, diabetes and hypertension, coronary disease status post PCI in the past. Patient was sent to the emergency room by his PCP for labs showing hyperkalemia potassium 6.6. In the emergency room potassium was found to be slightly better at 6.1. EKG did not show peaked T wave patient was treated medically with Lokelma, insulin and 1 dose of Lasix. Lab also showed creatinine 2.6 mg deciliter which is close to lab from last month of 2.4 mg deciliter I reviewed the patient's home medications. He is on isosorbide mononitrate, hydralazine, Lasix, and Aldactone for hypertension management. Patient stated he has been compliant with low potassium diet Systolic blood pressure when he presented to the hospital was elevated at 200. Patient was given 1 dose of labetalol. Blood pressure this morning 154/82 Patient has no complaint. Denied NSAID use. He stated his blood pressure has been elevated at home. He does monitor blood pressure twice daily Interval history: Patient was seen and examined in his room. I had an extensive talk with the patient daughter about discharge planning .I explained the daughter the necessity of keeping low potassium diet Blood pressure has been well-controlled . Serum creatinine today 3.19 mg deciliter which is remain higher than baseline creatinine .GFR 19 mL/min No fluid overload. Patient denies nausea vomiting .no shortness of breath. No dizziness. Exam Physical Exam Vital Signs: Temp Pulse Resp BP Pulse Ox O2 Del Method 97.3 F L 71 18 115/63 96 Room Air 10/08/24 07:37 10/08/24 11:27 10/08/24 11:27 10/08/24 11:27 10/08/24 11:27 10/08/24 11:27 Narrative: General: No acute distress Head :atraumatic normocephalic Eyes: PERRLA. Neck: no JVD no bruit. Heart: S1-S2. RRR Respiratory: Clear to auscultation. No wheezing. No crackles Abdomen: Soft, positive bowel sounds,no tenderness. Neurology: Awake alert oriented x3. No focal deficits Extremity. No cyanosis. No edema Skin: No skin rash Objective Intake and Output I&O: Intake & Output 10/05/24 10/06/24 10/07/24 10/08/24 23:59 23:59 23:59 23:59 Intake Total 500 / 500 1250 / 1250 700 / 700 Output Total 600 / 600 Balance -100 / -100 1250 / 1250 700 / 700 Weight 80 kg 80 kg 81.8 kg Meds and Allergies Meds: Active Medications Acetaminophen (Acetaminophen 325 Mg Tablet) 650 mg PO Q6HR PRN PRN Reason: Pain Scale 1 - 3 or fever Stop: 10/06/25 17:29 Aspirin (Aspirin 81 Mg Tab.Chew) 81 mg PO [facility] Stop: 10/07/25 08:59 Last Admin: 10/08/24 08:15 Dose: 81 mg Atorvastatin Calcium (Atorvastatin 20 Mg Tablet) 20 mg PO QHS [facility] Stop: 10/06/25 21:59 Last Admin: 10/07/24 21:19 Dose: 20 mg Carvedilol (Carvedilol 25 Mg Tablet) 25 mg PO BID.WITH.MEALS [facility] Stop: 10/07/25 07:59 Last Admin: 10/08/24 08:15 Dose: 25 mg Clonidine HCl (Clonidine 0.1 Mg Tablet) 0.1 mg PO Q12HR [facility] Stop: 10/07/25 08:59 Last Admin: 10/08/24 08:15 Dose: 0.1 mg Cyanocobalamin (Cyanocobalamin 1,000 Mcg Tablet) 1,000 mcg PO QAM [facility] Stop: 10/07/25 08:59 Last Admin: 10/08/24 08:15 Dose: 1,000 mcg Cyclobenzaprine HCl (Cyclobenzaprine 10 Mg Tablet) 10 mg PO QHS PRN PRN Reason: spasms Stop: 10/06/25 21:59 Dextrose (Dextrose 50% In Water 25 Gm/50 Ml Syringe) 0 gm IV-PUSH PRN PRN PRN Reason: Hypoglycemia Stop: 10/06/25 17:22 Enoxaparin Sodium (Enoxaparin 30 Mg/0.3 Ml Syringe) 30 mg SUBCUT DAILY@10 [facility] Stop: 10/07/25 09:59 Last Admin: 10/08/24 09:37 Dose: Not Given Ergocalciferol (Ergocalciferol 1,250 Mcg (50,000 Units) Capsule) 1,250 mcg PO Tu@0900 [facility] Stop: 10/12/25 08:59 Ferrous Sulfate (Ferrous Sulfate 324 Mg Tablet.Dr) 324 mg PO DAILY [facility] Stop: 10/07/25 08:59 Last Admin: 10/08/24 08:15 Dose: 324 mg Gabapentin (Gabapentin 300 Mg Capsule) 300 mg PO BID [facility] Stop: 10/06/25 20:59 Last Admin: 10/08/24 08:15 Dose: 300 mg Glucose (Dextrose 40% Gel 15 Gm Tube) 0 gm PO PRN PRN PRN Reason: Hypoglycemia Stop: 10/06/25 17:22 Hydralazine HCl (Hydralazine 50 Mg Tablet) 100 mg PO TID [facility] Stop: 10/06/25 21:59 Last Admin: 10/08/24 08:15 Dose: 100 mg Insulin Aspart (Insulin Aspart 300 Units/3 Ml) 0 units SUBCUT TID.WM.[facility]; Protocol Stop: 10/06/25 21:59 Last Admin: 10/08/24 11:52 Dose: 2 units Insulin Glargine (Insulin Glargine 300 Units/3 Ml Insuln.Pen) 10 units SUBCUT BID [facility] Stop: 10/06/25 20:59 Last Admin: 10/08/24 08:15 Dose: 10 units Isosorbide Mononitrate (Isosorbide Mononitrate 24hr Er 30 Mg Tab.Er.24h) 30 mg PO QAM [facility] Stop: 10/07/25 08:59 Last Admin: 10/08/24 08:15 Dose: 30 mg Loratadine (Loratadine 10 Mg Tablet) 10 mg PO BID [facility] Stop: 10/06/25 20:59 Last Admin: 10/08/24 08:15 Dose: 10 mg Magnesium Oxide (Magnesium Oxide 400 Mg Tablet) 400 mg PO BID [facility] Stop: 10/09/24 10:29 Last Admin: 10/08/24 08:15 Dose: 400 mg Multivitamins (Multivitamin 1 Tab Tablet) 1 tab PO DAILY [facility] Stop: 10/07/25 08:59 Last Admin: 10/08/24 08:15 Dose: 1 tab Nitroglycerin (Nitroglycerin 0.4 Mg Tab.Subl) 0.4 mg SUBLINGUAL Q5M PRN PRN Reason: Chest Pain Stop: 10/06/25 17:11 Ondansetron HCl (Ondansetron 4 Mg/2 Ml Vial) 4 mg IV-PUSH Q8H PRN PRN Reason: Nausea And Vomiting Stop: 10/06/25 17:17 Sodium Chloride (Sodium Chloride 0.9 % 10 Ml Syringe) 0 ml IV-PUSH PRN PRN PRN Reason: Flush Stop: 10/06/25 15:18 Last Admin: 10/06/24 21:34 Dose: 10 ml Sodium Zirconium Cyclosilicate (Sodium Zirconium Cyclosilicate 10 Gm Powd.Pack) 10 gm PO DAILY [facility]; Protocol Stop: 10/07/25 08:59 Last Admin: 10/08/24 08:14 Dose: 10 gm Allergies aspirin Allergy (Unknown, Verified 10/06/24 15:19) Swelling of Lip/Tongue/Throat, lips turn blue if takes 2 oxycodone (From Percocet) Allergy (Unknown, Verified 10/06/24 15:19) Swelling of Lip/Tongue/Throat, swelling of throat amlodipine Adverse Reaction (Verified 10/06/24 15:19) Edema Results - Nephrology Labs 10/08/24 05:51 10/08/24 05:51 Labs: 10/08/24 05:51 BUN 63 H Creatinine 3.16 H Albumin 3.6 Radiology Impressions Impressions - last 24 hours: Any impression(s) listed above is documentation that was entered by the reading physician into a diagnostic report(s) for Gage Lugo. I have reviewed the report(s) and am incorporating any findings in the treatment plan of this patient where applicable. A&P - Nephrology Assessment/Plan (1) Acute kidney injury superimposed on CKD: Assessment/Problem Details: Acute kidney injury is likely from prerenal related to better control of blood pressure along being on Lasix l. Kidney function improved with the fluid bolus yesterday. Creatinine peaked at 3.3. Creatinine this morning 3.0. Baseline creatinine around 2.4 mg deciliter. Patient follows with Dr. 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 Patient treated with Lokelma during last admission since yesterday for potassium 5.5. Potassium this morning 5.1 (3) Hypertensive chronic kidney disease with stage 1 through stage 4 chronic kidney disease, or unspecified chronic kidney disease: Assessment/Problem Details: Blood pressure is well-controlled with the current blood pressure medications. (4) Diabetes: Assessment/Problem Details: Patient on glargine insulin twice a day along with insulin as part with meal. Diabetes seems well-controlled this morning Plan * Blood pressure has been well-controlled over the last 24 hours with no episodes of hypo or hypertension. * Will continue blood pressure medications * No need for diuretics. No fluid overload * Will continue Lokelma 10 g p.o. daily * Low potassium diet * Keep blood glucose under good control to avoid osmotic diuresis and worsening hyperkalemia * Patient is on ceftriaxone for UTI treatment.. Urine culture on October 04 grew E. coli * Check CBC renal function panel in a.m. Patient can be discharged from nephrology standpoint with the current dose of blood pressure medications. Please discharge patient with Lokelma 10 mg p.o. daily. Please repeat renal function panel next Friday.. Please arrange follow-up with Dr. Holden in renal office in 1 to 2 weeks Plan of care was discussed with patient's, his daughter over phone and the primary hospitalist team Documented By: Tito Martinez MD 10/08/24 1342 Signed By: <Electronically signed by Tito Martinez MD> 10/08/24 1344 [facility] Work Phone: Reason for referral (narrative)* Consultation (Routine) - Authorized Specialty Diagnoses / Procedures Referred By Contac t Referred To Contact Cardiology Diagnoses 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of [place] coronary artery of [place] heart without angina pectoris Procedures Follow Up In Cardiology Gabriela Florian MD [address] [facility] [address], [address] [address] Gabriela Florian MD [address] [facility], [address] [place] [address] Referral ID Status Reason Start Date Expiration Date V isits Requested Visits Authorized [id number] Authorized 10/16/2023 10/15/2024 1 1 [facility] Work Phone: Summary Purpose Family History No Family History Records FoundUnknown Family Member Name Dates Details Family history [...] Presence of cardiac pacemaker Unknown Advance Directives No Advanced Directives Records Found Advance Directive Response Recorded Date/ Time Advance Directives No August 12:39pm Advance Directive Response Recorded Date/ Time Advance Directives No August 11:39am Date Activated Date Inactivated Comments 05/23/2024 10:26 PM Healthcare Agents on File Name Relationship Healthcare Agent Relationship Communication Elenathaddeus Urbano Child Primary Decision Maker Chief Complaint * GAGE LUGO is being seen for a 6 [...] the patient to quit smoking completely * GAGE LUGO is being seen for a 6 [...] the patient to quit smoking completely * GAGE LUGO is being seen for a 6 month follow-up of. * Patient is in the office for follow-up for the problems noted below accompanied by his karon travis. He recently underwent lumbar spinal surgery by Dr. Miller at [facility] with no complication he continuesto wear his [...] the patient to quit smoking completely * GAGE LUGO is being seen for a 6 [...] ARB due to his kidney disease * GAGE LUGO is being seen for a 6 [...] in 2006 with repeat angioplasty of theRCA 2017. 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 Comments The patient can be scheduled with any member of the group, including the provider with the first available appointments. Specialty Diagnoses / Procedures Referred By Hammad solano Referred To Contact Physical Therapy Diagnoses Stenosis of cervical spine with myelopathy (HCC) Lumbar stenosis with neurogenic claudication Yazan Rainey MD [address] [address] [facility] [address] [place] [phone] Referral ID Status Reason Start Date Expiration Date V isits Requested Visits Authorized [id number] Open Specialty Services Required 05/31/2024 05/31/2025 1 1 Scheduling Instructions [facility] Physical Medicine and Rehabilitation Please call within 48 hours to schedule your appointment. Reason Evaluate and Treat B ack and Leg Pain Diagnosis 1 Spinal stenosis at L 4-L5 level (M48.061) Referral Organization [facility] Ne urosurgery Referring Provider First Name Clemente Referring Provider Last Name Angela Referring Provider Specialty Neurologica l Surgery Referred Organization [facility] [place] or Physical Therapy Referred Address [address] [place] [id number] Referred Provider Specialty Physical The rapist Referral Priority Routine Reason left lumbar radiculo riana, spinal stenosis Diagnosis 1 Spinal stenosis of l umbar region with neurogenic claudication (M48.062) Referral Organization [facility] Family Martha Buchanan Referring Provider First Name Lolita Referring Provider Last Name Kyree Referring Provider Specialty [facility] Referred Organization Unknown Facility Referred Provider Specialty Neurological Surgery Referral Priority Routine Reason thyroid nodule 2. 2cm, has been monitoring with with previous PCP Diagnosis 1 Thyroid nodule (E04. 1) Referral Organization [facility] Dhirajfabrice thaddeus MauricioRogers Referring Provider First Name Lolita Referring Provider Last Name Kyree Referring Provider Specialty [facility] Referred Organization [facility] Referred Provider Rai Badillo Referred Address ,[place], [place],[address] Referred Provider Specialty Otolaryngolo gy Referral Priority Routine General Notes Ligia Amaro 03:38:42 PM >waiting for labs to be drawn prior to sending. [employer] per cert #[id number] per [employer]. Chief Complaint and Reason for [...] (moderate) Chronic pancreatitis Duodenitis Dyslipidemia Elevated troponin [id number] Hypertensive emergency Proteinuria Stented coronary artery Type [...] (moderate) Chronic pancreatitis Duodenitis Dyslipidemia Elevated troponin [id number] Hypertensive emergency Proteinuria Stented coronary artery Type [...] (moderate) Chronic pancreatitis Duodenitis Dyslipidemia Elevated troponin [id number] Hypertensive emergency Proteinuria Stented coronary artery Type [...] 3 month follow-up FOLLOW UP SCOPE [id number] Reason for Visit Chronic kidney disea se, [...] Chronic kidney disease, stage III (moderate) Dyslipidemia [id number] Secondary hyperparathyroidism Type 2 diabetes mellitus with diabetic chronic kidney disease Chief Complaint RENAL 6 month follow up 4 month Reason for Visit Anemia of renal dise ase Chronic kidney disease, stage III (moderate) Dyslipidemia [id number] Secondary hyperparathyroidism Type 2 diabetes mellitus with diabetic chronic kidney disease Type 2 diabetes mellitus with diabetic chronic kidney disease Chief Complaint Admit Date 4 month July 23, 2024 1 0:35am N25.81 D63.1 I12.9 August 23, 2024 10:32am Reason for Visit Admit Date HTN (hypertension) July 23, 2024 1 0:35am Type 2 diabetes mellitus wit h diabetic chronic kidney disease July 23, 2024 10:35am Chief Complaint Admit Date 4 month July 23, 2024 1 0:35am N25.81 D63.1 I12.9 August 23, 2024 10:32am RENAL 4 MONTH F/U August 30, 2024 2:45pm E87.5 - Hyperkalemia October 04, 2024 1:05pm high potassium October 04, 2024 6:44pm high potassium October 05, 2024 11:35am Reason for Visit Admit Date HTN (hypertension) July 23, 2024 1 0:35am Type 2 diabetes mellitus wit h diabetic chronic kidney disease July 23, 2024 10:35am Anemia of renal disease August 30, 2 024 2:45pm Chronic kidney disease, stage III (moder ate) August 30, 2024 2:45pm Dyslipidemia August 30, 2024 2:45pm Hyperkalemia August 30, 2024 2:45pm Hypertensive chronic kidney disease with stage 1 through stage 4 chronic ki August 30, 2024 2:45pm Secondary hyperparathyroidism August 072023 2:45pm Type 2 diabetes mellitus wit h diabetic chronic kidney disease August 30, 2024 2:45pm Acute hyperglycemia October 04, 2024 6:44pm Acute hyperkalemia October 04, 2024 6:44pm CAD (coronary artery disease) September 072023 6:44pm Chronic kidney disease, stage IV (severe ) October 04, 2024 6:44pm Dyslipidemia October 04, 2024 6:44pm HTN (hypertension) October 04, 2024 6:44pm Hyperkalemia October 04, 2024 6:44pm Hypertensive chronic kidney disease with stage 1 through stage 4 chronic ki October 04, 2024 6:44pm Hypertensive urgency October 04, 2024 6:44pm Type 2 diabetes mellitus wit h diabetic chronic kidney disease October 04, 2024 6:44pm Diabetes October 04, 2024 6:44pm Chief Complaint Admit Date 4 month July 23, 2024 1 0:35am N25.81 D63.1 I12.9 August 23, 2024 10:32am RENAL 4 MONTH F/U August 30, 2024 2:45pm E87.5 - Hyperkalemia October 04, 2024 1:05pm high potassium October 04, 2024 6:44pm high potassium October 05, 2024 11:35am feeling faint October 06, 2024 5: 43pm Reason for Visit Admit Date HTN (hypertension) July 23, 2024 1 0:35am Type 2 diabetes mellitus wit h diabetic chronic kidney disease July 23, 2024 10:35am Anemia of renal disease August 30, 2 024 2:45pm Chronic kidney disease, stage III (moder ate) August 30, 2024 2:45pm Dyslipidemia August 30, 2024 2:45pm Hyperkalemia August 30, 2024 2:45pm Hypertensive chronic kidney disease with stage 1 through stage 4 chronic ki August 30, 2024 2:45pm Secondary hyperparathyroidism August 072023 2:45pm Type 2 diabetes mellitus wit h diabetic chronic kidney disease August 30, 2024 2:45pm Acute hyperglycemia October 04, 2024 6:44pm Acute hyperkalemia October 04, 2024 6:44pm CAD (coronary artery disease) September 072023 6:44pm Chronic kidney disease, stage IV (severe ) October 04, 2024 6:44pm Dyslipidemia October 04, 2024 6:44pm HTN (hypertension) October 04, 2024 6:44pm Hyperkalemia October 04, 2024 6:44pm Hypertensive chronic kidney disease with stage 1 through stage 4 chronic ki October 04, 2024 6:44pm Hypertensive urgency October 04, 2024 6:44pm Type 2 diabetes mellitus wit h diabetic chronic kidney disease October 04, 2024 6:44pm Diabetes October 04, 2024 6:44pm Acute hyperkalemia October 06, 2024 5: 43pm Chronic kidney disease, stage IV (severe ) October 06, 2024 5:43pm Chronic renal insufficiency October 06, 2024 5:43pm Diabetes mellitus October 06, 2024 5: 43pm E. coli UTI October 06, 2024 5: 43pm Hypertensive urgency October 06, 2024 5 :43pm Near syncope October 06, 2024 5: 43pm Chief Complaint Admit Date 4 month July 23, 2024 1 0:35am N25.81 D63.1 I12.9 August 23, 2024 10:32am RENAL 4 MONTH F/U August 30, 2024 2:45pm E87.5 - Hyperkalemia October 04, 2024 1:05pm high potassium October 04, 2024 6:44pm high potassium October 05, 2024 11:35am feeling faint October 06, 2024 5: 43pm feeling faint October 07, 2024 12 :50pm Reason for Visit Admit Date HTN (hypertension) July 23, 2024 1 0:35am Type 2 diabetes mellitus wit h diabetic chronic kidney disease July 23, 2024 10:35am Anemia of renal disease August 30, 2 024 2:45pm Chronic kidney disease, stage III (moder ate) August 30, 2024 2:45pm Dyslipidemia August 30, 2024 2:45pm Hyperkalemia August 30, 2024 2:45pm Hypertensive chronic kidney disease with stage 1 through stage 4 chronic ki August 30, 2024 2:45pm Secondary hyperparathyroidism August 072023 2:45pm Type 2 diabetes mellitus wit h diabetic chronic kidney disease August 30, 2024 2:45pm Acute hyperglycemia October 04, 2024 6:44pm Acute hyperkalemia October 04, 2024 6:44pm CAD (coronary artery disease) September 072023 6:44pm Chronic kidney disease, stage IV (severe ) October 04, 2024 6:44pm Dyslipidemia October 04, 2024 6:44pm HTN (hypertension) October 04, 2024 6:44pm Hyperkalemia October 04, 2024 6:44pm Hypertensive chronic kidney disease with stage 1 through stage 4 chronic ki October 04, 2024 6:44pm Hypertensive urgency October 04, 2024 6:44pm Type 2 diabetes mellitus wit h diabetic chronic kidney disease October 04, 2024 6:44pm Diabetes October 04, 2024 6:44pm Acute hyperkalemia October 06, 2024 5: 43pm Chronic kidney disease, stage IV (severe ) October 06, 2024 5:43pm Chronic renal insufficiency October 06, 2024 5:43pm Diabetes October 06, 2024 5: 43pm E. coli UTI October 06, 2024 5: 43pm Hypertensive chronic kidney disease with stage 1 through stage 4 chronic ki October 06, 2024 5:43pm Hypertensive urgency October 06, 2024 5 :43pm Near syncope October 06, 2024 5: 43pm Acute kidney injury superimposed on CKD October 06, 2024 5:43pm Chief Complaint Admit Date 4 month July 23, 2024 1 0:35am N25.81 D63.1 I12.9 August 23, 2024 10:32am RENAL 4 MONTH F/U August 30, 2024 2:45pm E87.5 - Hyperkalemia October 04, 2024 1:05pm high potassium October 04, 2024 6:44pm high potassium October 05, 2024 11:35am feeling faint October 06, 2024 5: 43pm feeling faint October 07, 2024 12 :50pm Hyperkalemia October 12, 2024 10 :58am Reason for Visit Admit Date HTN (hypertension) July 23, 2024 1 0:35am Type 2 diabetes mellitus wit h diabetic chronic kidney disease July 23, 2024 10:35am Anemia of renal disease August 30, 2 024 2:45pm Chronic kidney disease, stage III (moder ate) August 30, 2024 2:45pm Dyslipidemia August 30, 2024 2:45pm Hypertensive chronic kidney disease with stage 1 through stage 4 chronic ki August 30, 2024 2:45pm Secondary hyperparathyroidism August 072023 2:45pm Type 2 diabetes mellitus wit h diabetic chronic kidney disease August 30, 2024 2:45pm Hyperkalemia August 30, 2024 2:45pm CAD (coronary artery disease) September 072023 6:44pm Chronic kidney disease, stage IV (severe ) October 04, 2024 6:44pm Dyslipidemia October 04, 2024 6:44pm HTN (hypertension) October 04, 2024 6:44pm Hypertensive chronic kidney disease with stage 1 through stage 4 chronic ki October 04, 2024 6:44pm Type 2 diabetes mellitus wit h diabetic chronic kidney disease October 04, 2024 6:44pm Diabetes October 04, 2024 6:44pm Acute hyperglycemia October 04, 2024 6:44pm Acute hyperkalemia October 04, 2024 6:44pm Hyperkalemia October 04, 2024 6:44pm Hypertensive urgency October 04, 2024 6:44pm Chronic kidney disease, stage IV (severe ) October 06, 2024 5:43pm Chronic renal insufficiency October 06, 2024 5:43pm Diabetes October 06, 2024 5: 43pm E. coli UTI October 06, 2024 5: 43pm Hypertensive chronic kidney disease with stage 1 through stage 4 chronic ki October 06, 2024 5:43pm Acute hyperkalemia October 06, 2024 5: 43pm Hypertensive urgency October 06, 2024 5 :43pm Near syncope October 06, 2024 5: 43pm Acute kidney injury superimposed on CKD October 06, 2024 5:43pm Chronic kidney disease, stage IV (severe ) October 12, 2024 10:58am Chronic renal insufficiency October 12, 2024 10:58am Diabetes mellitus October 12, 2024 10 :58am Chief Complaint Admit Date 4 month July 23, 2024 1 0:35am N25.81 D63.1 I12.9 August 23, 2024 10:32am RENAL 4 MONTH F/U August 30, 2024 2:45pm E87.5 - Hyperkalemia October 04, 2024 1:05pm high potassium October 04, 2024 6:44pm high potassium October 05, 2024 11:35am feeling faint October 06, 2024 5: 43pm feeling faint October 07, 2024 12 :50pm Hyperkalemia October 12, 2024 10 :58am N18.9 E11.9 N18.4 E87.5 N25.81 R80.9 D63 .1 I12.9 October 12, 2024 11:50am Reason for Visit Admit Date HTN (hypertension) July 23, 2024 1 0:35am Type 2 diabetes mellitus wit h diabetic chronic kidney disease July 23, 2024 10:35am Anemia of renal disease August 30, 2 024 2:45pm Hypertensive chronic kidney disease with stage 1 through stage 4 chronic ki August 30, 2024 2:45pm Secondary hyperparathyroidism August 072023 2:45pm Type 2 diabetes mellitus wit h diabetic chronic kidney disease August 30, 2024 2:45pm Hyperkalemia August 30, 2024 2:45pm Chronic kidney disease, stage III (moder ate) August 30, 2024 2:45pm Dyslipidemia August 30, 2024 2:45pm CAD (coronary artery disease) September 072023 6:44pm Chronic kidney disease, stage IV (severe ) October 04, 2024 6:44pm HTN (hypertension) October 04, 2024 6:44pm Hypertensive chronic kidney disease with stage 1 through stage 4 chronic ki October 04, 2024 6:44pm Type 2 diabetes mellitus wit h diabetic chronic kidney disease October 04, 2024 6:44pm Acute hyperglycemia October 04, 2024 6:44pm Acute hyperkalemia October 04, 2024 6:44pm Hyperkalemia October 04, 2024 6:44pm Hypertensive urgency October 04, 2024 6:44pm Diabetes October 04, 2024 6:44pm Dyslipidemia October 04, 2024 6:44pm Chronic kidney disease, stage IV (severe ) October 06, 2024 5:43pm Chronic renal insufficiency October 06, 2024 5:43pm Diabetes October 06, 2024 5: 43pm Hypertensive chronic kidney disease with stage 1 through stage 4 chronic ki October 06, 2024 5:43pm Acute hyperkalemia October 06, 2024 5: 43pm Hypertensive urgency October 06, 2024 5 :43pm Near syncope October 06, 2024 5: 43pm Acute kidney injury superimposed on CKD October 06, 2024 5:43pm E. coli UTI October 06, 2024 5: 43pm Chronic kidney disease, stage IV (severe ) October 12, 2024 10:58am Diabetes mellitus Radha 7th, 2025 10 :58am Gynecomastia October 12, 2024 10 :58am HTN (hypertension) October 12, 2024 10 :58am Hypertensive chronic kidney disease with stage 1 through stage 4 chronic ki October 12, 2024 10:58am Type 2 diabetes mellitus wit h diabetic chronic kidney disease October 12, 2024 10:58am Acute hyperkalemia October 12, 2024 10 :58am Chief Complaint Admit Date N25.81 D63.1 I12.9 August 23, 2024 10:32am RENAL 4 MONTH F/U August 30, 2024 2:45pm E87.5 - Hyperkalemia October 04, 2024 1:05pm high potassium October 04, 2024 6:44pm high potassium October 05, 2024 11:35am feeling faint October 06, 2024 5: 43pm feeling faint October 07, 2024 12 :50pm Hyperkalemia October 12, 2024 10 :58am N18.9 E11.9 N18.4 E87.5 N25.81 R80.9 D63 .1 I12.9 October 12, 2024 11:50am E11.9 Z12.5 N18.4 October 20, 2024 1 1:21am E87.6 October 25, 2024 1 0:46am Reason for Visit Admit Date Anemia of renal disease August 30, 2 024 2:45pm Hypertensive chronic kidney disease with stage 1 through stage 4 chronic ki August 30, 2024 2:45pm Secondary hyperparathyroidism August 072023 2:45pm Type 2 diabetes mellitus wit h diabetic chronic kidney disease August 30, 2024 2:45pm Hyperkalemia August 30, 2024 2:45pm Chronic kidney disease, stage III (moder ate) August 30, 2024 2:45pm Dyslipidemia August 30, 2024 2:45pm CAD (coronary artery disease) September 072023 6:44pm Chronic kidney disease, stage IV (severe ) October 04, 2024 6:44pm HTN (hypertension) October 04, 2024 6:44pm Hypertensive chronic kidney disease with stage 1 through stage 4 chronic ki October 04, 2024 6:44pm Type 2 diabetes mellitus wit h diabetic chronic kidney disease October 04, 2024 6:44pm Acute hyperglycemia October 04, 2024 6:44pm Acute hyperkalemia October 04, 2024 6:44pm Hyperkalemia October 04, 2024 6:44pm Hypertensive urgency October 04, 2024 6:44pm Diabetes October 04, 2024 6:44pm Dyslipidemia October 04, 2024 6:44pm Chronic kidney disease, stage IV (severe ) October 06, 2024 5:43pm Chronic renal insufficiency October 06, 2024 5:43pm Diabetes October 06, 2024 5: 43pm Hypertensive chronic kidney disease with stage 1 through stage 4 chronic ki October 06, 2024 5:43pm Acute hyperkalemia October 06, 2024 5: 43pm Hypertensive urgency October 06, 2024 5 :43pm Near syncope October 06, 2024 5: 43pm Acute kidney injury superimposed on CKD October 06, 2024 5:43pm E. coli UTI October 06, 2024 5: 43pm Chronic kidney disease, stage IV (severe ) October 12, 2024 10:58am Diabetes mellitus October 12, 2024 10 :58am Gynecomastia October 12, 2024 10 :58am HTN (hypertension) October 12, 2024 10 :58am Hypertensive chronic kidney disease with stage 1 through stage 4 chronic ki October 12, 2024 10:58am Type 2 diabetes mellitus wit h diabetic chronic kidney disease October 12, 2024 10:58am Acute hyperkalemia October 12, 2024 10 :58am Chief Complaint Admit Date N25.81 D63.1 I12.9 August 23, 2024 10:32am RENAL 4 MONTH F/U August 30, 2024 2:45pm E87.5 - Hyperkalemia October 04, 2024 1:05pm high potassium October 04, 2024 6:44pm high potassium October 05, 2024 11:35am feeling faint October 06, 2024 5: 43pm feeling faint October 07, 2024 12 :50pm Hyperkalemia October 12, 2024 10 :58am N18.9 E11.9 N18.4 E87.5 N25.81 R80.9 D63 .1 I12.9 October 12, 2024 11:50am E11.9 Z12.5 N18.4 October 20, 2024 1 1:21am E87.6 October 25, 2024 1 0:46am RENAL HOSP F/U / HYPOKALEMIA October 8:31am Reason for Visit Admit Date Anemia of renal disease August 30, 2 024 2:45pm Hypertensive chronic kidney disease with stage 1 through stage 4 chronic ki August 30, 2024 2:45pm Secondary hyperparathyroidism August 072023 2:45pm Type 2 diabetes mellitus wit h diabetic chronic kidney disease August 30, 2024 2:45pm Hyperkalemia August 30, 2024 2:45pm Chronic kidney disease, stage III (moder ate) August 30, 2024 2:45pm Dyslipidemia August 30, 2024 2:45pm CAD (coronary artery disease) September 072023 6:44pm Chronic kidney disease, stage IV (severe ) October 04, 2024 6:44pm HTN (hypertension) October 04, 2024 6:44pm Hypertensive chronic kidney disease with stage 1 through stage 4 chronic ki October 04, 2024 6:44pm Type 2 diabetes mellitus wit h diabetic chronic kidney disease October 04, 2024 6:44pm Acute hyperglycemia October 04, 2024 6:44pm Acute hyperkalemia October 04, 2024 6:44pm Hyperkalemia October 04, 2024 6:44pm Hypertensive urgency October 04, 2024 6:44pm Diabetes October 04, 2024 6:44pm Dyslipidemia October 04, 2024 6:44pm Chronic kidney disease, stage IV (severe ) October 06, 2024 5:43pm Chronic renal insufficiency October 06, 2024 5:43pm Diabetes October 06, 2024 5: 43pm Hypertensive chronic kidney disease with stage 1 through stage 4 chronic ki October 06, 2024 5:43pm Acute hyperkalemia October 06, 2024 5: 43pm Hypertensive urgency October 06, 2024 5 :43pm Near syncope October 06, 2024 5: 43pm Acute kidney injury superimposed on CKD October 06, 2024 5:43pm E. coli UTI October 06, 2024 5: 43pm Chronic kidney disease, stage IV (severe ) October 12, 2024 10:58am Diabetes mellitus October 12, 2024 10 :58am Gynecomastia October 12, 2024 10 :58am HTN (hypertension) October 12, 2024 10 :58am Hypertensive chronic kidney disease with stage 1 through stage 4 chronic ki October 12, 2024 10:58am Type 2 diabetes mellitus wit h diabetic chronic kidney disease October 12, 2024 10:58am Acute hyperkalemia October 12, 2024 10 :58am Anemia of renal disease October 27 8:31am Hypertensive chronic kidney disease with stage 1 through stage 4 chronic ki October 27, 2024 8:31am Secondary hyperparathyroidism October 272024 8:31am Type 2 diabetes mellitus wit h diabetic chronic kidney disease October 27, 2024 8:31am Chronic kidney disease, stage III (moder ate) October 27, 2024 8:31am Dyslipidemia October 27, 2024 8 :31am Additional Source Comments (unrecognized sect ion and content) No Status Records FoundNo Status Records FoundNo Status Records FoundNo Status Records FoundNo Status Records FoundNo Status Records FoundNo Status Records FoundNo Status Records FoundNo Status Records Found INFORMATION SOURCE (unrecogn ized section and content) DATE CREATED AUTHOR 03/31/2018 [facility] DATE CREATED AUTHOR AUTHOR'S ORGANIZ ATION 09/27/2020 [facility] DATE CREATED AUTHOR AUTHOR'S ORGANIZ ATION 04/23/2023 [facility] DATE CREATED AUTHOR AUTHOR'S ORGANIZ ATION 04/23/2023 [facility] DATE CREATED AUTHOR AUTHOR'S ORGANIZ ATION 10/19/2023 [facility] DATE CREATED AUTHOR AUTHOR'S ORGANIZ ATION 06/25/2024 [facility] EPIC DATE CREATED AUTHOR AUTHOR'S ORGANIZ ATION 09/18/2024 [facility] DATE CREATED AUTHOR AUTHOR'S ORGANIZ ATION 09/22/2024 [facility] DATE CREATED AUTHOR AUTHOR'S ORGANIZ ATION 11/01/2024 [facility] REASON FOR VISIT (unrecogniz ed section and content) Reason Comments Follow-up 6m Reason Comments Thyroid Nodule Yearly US Reason Comments Pain Bilat shoulders, sarbjit k and bilat legs Specialty Diagnoses / Procedures Referred By Hammad t Referred To Contact Diagnoses Neurogenic pain of right lower extremity Pain in right lower leg [place] [address] [place] [address] [facility] [id number] [place] [address] Referral ID Status Reason Start Date Expiration Date Visits Re quested Visits Authorized [id number] 1 1 Care Teams (unrecognized sec tion and content) Team Status: Inactive Member Role Status Dates Lolita Adorno , DO Primary Care Provider Active Joycelyn Waggoner , [employer]- Emergency Provider Active Team Status: Active Member Role Status Dates Lolita Adorno , DO Primary Care Provider Active Clemente Miller MD Attending Provider Active Team Status: Inactive Member Role Status Dates Lolita Adorno , DO Primary Care Provider, Attendi ng Provider Active Team Status: Active Member Role [...] Cervantes , [place] Other Provider Active Yesica Rboledo , [place] Other Provider Active Kylee Santos , [place] Other Provider Active Ligia Vidal , [place] Other Provider Active Margaret Hunter , [place] Other Provider Active Saskia Washington , [place] Other Provider Active Fercho Guillermo MD Other Provider Active Wu Nieto MD Other Provider Active Daly King APRN Other Provider Active Troy Mendoza , DO Other Provider Active Rusty Gore MD Other Provider Active Kali Isaac , DO Other Provider Active Reyes Patino MD Other Provider Active Sallie Braga MD Other Provider Active Kay Redman , [facility]- Other Provider Active Leon Royal MD Other Provider Active Linus Nash MD Other Provider Active Barbie Osborn MD Other Provider Active Benjy Vernon MD Other Provider Active Nellie Santos , DO Other Provider Active Beth Soto MD Other Provider Active Ronnell Fletcher MD Other Provider Active Lea Jett , PHOTOGEOLOGIST-C Other Provider Active Kamron Small MD Other Provider Active Alejandro Pastrana MD Other Provider Active Adrien Orona MD Other Provider Active Barbara Watts , DO Other Provider Active Stephane Rodrigez , DO Other Provider Active Jose Oscar , DO Other Provider Active Dayanna Wayne , BUILDING INSPECTION ENGINEER Other Provider Active Roberto Cullen , DO Other Provider Active Cem Murillo MD Other Provider Active Ruthann Dickson , BUILDING INSPECTION ENGINEER Other Provider Active Ro Hart , [place] Other Provider Active Team Status: Inactive Member Role Status Dates Lolita Adorno , DO Primary Care Provider Active Gabriela Florian MD Attending Provider Active Team Status: Inactive Member Role Status Dates Lolita Adorno , DO Primary Care Provider Active Beth Lowe NP-C Attending Provider Active Team Status: Inactive Member Role Status Dates Lolita Adorno , DO Primary Care Provider Active Prieto Santo MD Attending Provider Active Team Status: Inactive Member Role Status Dates Lolita dAorno , DO Primary Care Provider Active Wyatt Chaparro , DO Emergency Provider Active Barbie Osborn MD Admit Provider, Attending Provider Active Joao Coley MD Other Provider Active Govind Jim , DO Other Provider Active Yohannes Granda MD Other Provider Active Darian Peters MD Other Provider Active Milo Mena MD Other Provider Active Maxx Gonzalez MD Other Provider Active Yossi Rodriguez , BUILDING INSPECTION ENGINEER Other Provider Active Kevin Li MD Other Provider Active Omar Strong MD Other Provider Active Khushboo Hines MD Other Provider Active Nette Holden MD Other Provider Active Mirza Causey MD Other Provider Active David Mcleod MD Other Provider Active Tito Martinez MD Other Provider Active Dolores Ramirez , BUILDING INSPECTION ENGINEER ACNP-BC Other Provider Active Parrish Mendosa MD Other Provider Active Martínez Briceño MD Other Provider Active Sonja Laird MD Other Provider Active Tej Reynoso , DO Other Provider Active Daly Giraldo MD Other Provider Active Juan David Bustamante MD Other Provider Active Clement Campa MD Other Provider Active Donta Ochoa , DO Other Provider Active Team Status: Inactive Member Role Status Dates Lolita Adorno , DO Primary Care Provider, Attendi ng Provider Active Barbie Osborn MD Referring Provider Active Statistics Manager Relationship Specialty Start Date End Date Lolita Adorno DO [address] [place] [address] PCP - General 10/06/99 Team Status: Inactive [...] Adorno , DO Primary Care Provider Active Start: December [...] April 26, 2024 End: April 26, 2024 Team Status: Active Member Role Status Dates Lolita Adorno DO Primary Care Provider Active Start: May 22, 2024 Rai Ghotra DO Attending Provider Active Sta rt: May 22, 2024 Team Status: Inactive Member Role Status Dates Lolita Adorno DO Primary Care Pro vider, Attending Provider Active Start: July 23, 2024 End: July 23, 2024 Team Status: Inactive Member Role Status Dates Lolita Adorno DO Primary Care Provider Active Start: August 23, 2024 End: August 23, 2024 Nette Holden MD Attending Provider Active Start : August 23, 2024 End: August 23, 2024 Statistics Manager Relationship Specialty Start Date End Date Lolita Adorno DO [address] [place] [id number] PCP - General Family Medicine 06/23/23 Statistics Manager Relationship Specialty Start Date End Date Lolita Adonro DO [address] [place] [phone] PCP - General Family Medicine 06/23/23 Statistics Manager Relationship Specialty Start Date End Date Lolita Adorno DO [address] [place] [phone] PCP - General Family Medicine 06/23/23 Team Status: Inactive Member Role Status Dates Lolita Adorno DO Primary Care Provider Active Start: August 30, 2024 End: August 30, 2024 Nette Holden MD Attending Provider Active Start : August 30, 2024 End: August 30, 2024 Team Status: Inactive Member Role Status Dates Lolita Adorno DO Primary Care Pro vider, Attending Provider Active Start: October 04, 2024 End: October 04, 2024 Team Status: Inactive Member Role Status Dates Lolita Adorno DO Primary Care Provider Active Start: October 04, 2024 End: October 06, 2024 Ernie Vargas DO Emergency Provider Active Start: October 04, 2024 End: October 06, 2024 Matheus Robison MD Admit Provider, Atte nding Provider Active Start: October 04, 2024 End: October 06, 2024 Tito Martinez MD Other Provider Active Start: 2023 End: October 06, 2024 Team Status: Active Member Role Status Dates Lolita Adorno DO Primary Care Provider Active Start: October 05, 2024 Ernie Vargas DO Emergency Provider Active Start: October 05, 2024 Matheus Robison MD Admit Provider, Othe r Provider Active Start: October 05, 2024 Tito Martinez MD Attending Provider, Other Provider Active Start: October 05, 2024 Team Status: Active Member Role Status Dates Lolita Adorno DO Primary Care Provider Active Start: October 06, 2024 Nellie Wynne MD Emergency Provider Active St art: October 06, 2024 Matheus Robison MD Admit Provider, Atte nding Provider Active Start: October 06, 2024 Team Status: Inactive Member Role Status Dates Lolita Adorno , DO Primary Care Provider Active Start: October 06, 2024 End: October 08, 2024 Nellie Wynne MD Emergency Provider Active St art: October 06, 2024 End: October 08, 2024 Matheus Robison MD Admit Provider, Atte nding Provider Active Start: October 06, 2024 End: October 08, 2024 Tito Martinez MD Other Provider Active Start: [facility] 2024 End: October 08, 2024 Team Status: Active Member Role Status Dates Lolita Adorno DO Primary Care Provider Active Start: October 07, 2024 Nellie Wynne MD Emergency Provider Active St art: October 07, 2024 Matheus Robison MD Admit Provider, Othe r Provider Active Start: October 07, 2024 Tito Martinez MD Attending Provider, Other Provider Active Start: October 07, 2024 Team Status: Inactive Member Role Status Dates Lolita Adorno DO Primary Care Pro vider, Attending Provider Active Start: October 12, 2024 End: October 12, 2024 Team Status: Inactive Member Role Status Dates Lolita Adorno DO Primary Care Pro vider, Attending Provider Active Start: October 12, 2024 End: October 12, 2024 Nette Holden MD Referring Provider Active Start : October 12, 2024 End: October 12, 2024 Matheus Robison MD Other Provider Active Start: [facility] 2024 End: October 12, 2024 Team Status: Inactive Member Role Status Dates Lolita Adorno , DO Primary Care Pro vider, Attending Provider Active Start: October 20, 2024 End: October 20, 2024 Team Status: Inactive Member Role Status Dates Lolita Adorno , DO Primary Care Pro vider, Attending Provider Active Start: October 25, 2024 End: October 25, 2024 Team Status: Inactive Member Role Status Dates Lolita Adorno DO Primary Care Provider Active Start: October 27, 2024 End: October 27, 2024 Nette Holden MD Attending Provider Active Start : October 27, 2024 End: October 27, 2024 Statistics Manager Relationship Specialty Start Date End Date Lolita Adorno DO [address] [place] [address] PCP - General 05/24/24 Goals (unrecognized section and content) Goals may be documented in a n alternate section Ordered Prescriptions (unrec ognized section and content) Prescription Sig Dispensed Refills Start Date End Da te spironolactone (ALDACTONE) 25 MG tablet Take 1 tablet by mouth daily 30 tablet 3 06/01/2024 famotidine (PEPCID) 20 MG tablet Take 1 tablet by mouth daily 60 tablet 3 06/01/2024 hydrALAZINE (APRESOLINE) 100 MG tablet Take 1 tablet by mouth every 8 hours 90 tablet 3 05/31/2024 cetirizine (ZYRTEC) 10 MG tablet Take 1 tablet by mouth 2 times daily 30 tablet 3 05/31/2024 gabapentin (NEURONTIN) 300 MG capsule Take 1 capsule by mouth in the morning and at bedtime for 180 days. 90 capsule 3 05/31/2024 11/27/2024 Scheduled Active and Recently Administ ered Medications (unrecognized section and content) Medication Order 06/03/2024 06/04/2024 06/05/2024 acetaminophen (TYLENOL) tablet 650 mg 650 mg, Oral, EVERY 6 HOURS, First dose on Sanjuana 05/27/24 at 2115, Until Discontinued, Maximum dose of acetaminophen is 4000 mg from all sources in 24 hours., Post-op 0030 (Not Given - Provider: Ian Xiao RN - Reason: Order parameters not met)0535 (Given - Provider: Ian Xiao RN)1149 (Given - Provider: Anne Marie Carreon RN)1716 (Given - Provider: Rebecca Norris RN)2304 (Given - Provider: Ian Xiao RN) 0534 (Given - Provider: Ian Xiao RN)1002 (Given - Provider: Anne Marie Carreon RN)175 (Given - Provider: Anne Marie Carreon RN)224 (Not Given - Provider: Salome Garcia RN - Reason: Other - Comment: pt received 2 tabs of norco pt will exceed the tylenol max dosage for today) 0541 (Not Given - Provider: Salome Garcia RN - Reason: Other - Comment: norco given)0958 (Given - Provider: Annabelle Brooks RN)170 (Due - Provider: Yazan Mcclendon [facility])230 (Due - Provider: Yazan Mcclendon RP) atorvastatin (LIPITOR) tablet 20 mg 20 mg, Oral, NIGHTLY, First dose on Fri05/25/24 at 2100, Until Discontinued 2029 (Given - Provider: Ian Xiao RN) 2136 (Given - Provider: Salome Garcia RN) 2099 (Due) carvedilol (COREG) tablet 25 mg 25 mg, Oral, 2 TIMES DAILY WITH MEALS, First dose on Fri05/24/24 at 0800, Until Discontinued, Administer with food to minimize the risk of orthostatic hypotension 0808 (Given - Provider: Anne Marie Carreon RN)1716 (Given - Provider: Rebecca Norris RN) 1003 (Given - Provider: Anne Marie Carreon RN)175 (Given - Provider: Anne Marie Carreon RN) 0958 (Given - Provider: Annabelle Brooks RN)170 (Due) cetirizine (ZYRTEC) tablet 10 mg 10 mg, Oral, 2 TIMES DAILY, First dose on Fri05/28/24 at 2100, Until Discontinued 0808 (Given - Provider: Anne Marie Carreon RN)2029 (Given - Provider: Ian Xiao RN) 1008 (Given - Provider: Anne Marie Carreon RN)224 (Given - Provider: Salome Garcia RN) 0958 (Given - Provider: Annabelle Brooks RN)2099 (Due) cyclobenzaprine (FLEXERIL) tablet 10 mg 10 mg, Oral, Nightly, First dose on Fri05/25/24 at 2100, Until Discontinued 2029 (Given - Provider: Ian Xiao RN) 2007 (Not Given - Provider: Salome Garcia RN - Reason: Other - Comment: prn dose given) 2100 (Due) famotidine (PEPCID) 20 mg in sodium chloride (PF) 0.9 % 10 mL injection(Linked Group 1) 20 mg, IntraVENous, DAILY, First dose on Fri05/28/24 at 0900, Until Discontinued, IV Push over minimum of 2 minutes - Dilute with 10 mL NS Administer if oral route cannot be used 08 (See Alternative - Provider: Anne Marie Carreon RN) 100 (See Alternative - Provider: Anne Marie Carreon RN) 0958 (See Alternative - Provider: Annabelle Brooks RN) famotidine (PEPCID) tablet 20 mg(Linked Group 1) 20 mg, Oral, DAILY, First dose on Fri05/28/24 at 0900, Until Discontinued 08 (Given - Provider: Anne Marie Carreon RN) 100 (Given - Provider: Anne Marie Carreon RN) 09 (Given - Provider: Annabelle Brooks RN) gabapentin (NEURONTIN) capsule 300 mg 300 mg, Oral, 2 times daily, First dose on Fri05/24/24 at 1130, Until Discontinued 0812 (Given - Provider: Anne Marie Carreon RN)2029 (Given - Provider: Ian Xiao RN) 100 (Given - Provider: Anne Marie Carreon RN)2136 (Given - Provider: Salome Garcia RN) 0958 (Given - Provider: Annabelle Brooks, VALENTINA)2099 (Due) heparin (porcine) injection 5,000 Units 5,000 Units, SubCUTAneous, EVERY 8 HOURS SCHEDULED (3 times per day), First dose on Fri05/28/24 at 0600, Until Discontinued 0536 (Given - Provider: Ian Xioa RN)1403 (Given - Provider: Rebecca Norris RN)2029 (Given - Provider: Ian Xiao RN) 0534 (Given - Provider: Ian Xiao RN)133 (Given - Provider: Anne Marie Carreon RN)213 (Given - Provider: Salome Garcia RN) 0542 (Given - Provider: Salome Garcia RN)1400 (Due)2200 (Due) hydrALAZINE (APRESOLINE) tablet 100 mg 100 mg, Oral, EVERY 8 HOURS SCHEDULED (3 times per day), First dose (after last modification) on Fri05/28/24 at 1400, Until Discontinued 0535 (Given - Provider: Ian Xiao RN)1403 (Given - Provider: Rebecca Norris, RN)2030 (Given - Provider: Ian Xiao RN) 0534 (Given - Provider: Ian Xiao RN)1336 (Given - Provider: Anne Marie Carreon RN)2137 (Given - Provider: Salome Garcia, VALENTINA) 0541 (Given - Provider: Salome Garcia RN)1400 (Due)2199 (Due) insulin glargine (LANTUS) injection vial 10 Units 10 Units, SubCUTAneous, 2 TIMES DAILY, First dose (after last modification) on Fri05/29/24 at 2100, Until Discontinued 0811 (Given - Provider: Anne Marie Carreon RN)2030 (Given - Provider: Ian Xiao RN) 1003 (Given - Provider: Anne Marie Carreon RN)213 (Given - Provider: Salome Gracia RN) 1000 (Not Given - Provider: Annabelle Brooks RN - Reason: Order parameters not met - Comment: bs 93)2100 (Due) insulin lispro (HUMALOG,ADMELOG) injection vial 0-16 Units 0-16 Units, SubCUTAneous, 3 TIMES DAILY WITH MEALS, First dose on Fri05/25/24 at 1230, Until Discontinued, High Dose Corrective Algorithm Glucose: Dose: 70-199 No Insulin 200-249 4 Units 250-299 8 Units 300-349 12 Units Over 349 16 Units and notify physician 0754 (Not Given - Provider: Anne Marie Carreon RN - Reason: Order parameters not met)1152 (Not Given - Provider: Anne Marie Carreon RN - Reason: Order parameters not met)1709 (Not Given - Provider: Rebecca Norris RN - Reason: Order parameters not met - Comment: bs 173) 0904 (Not Given - Provider: Anne Marie Carreon RN - Reason: Order parameters not met)1230 (Not Given - Provider: Anne Marie Carreon RN - Reason: Order parameters not met)1627 (Not Given - Provider: Anne Marie Carreon RN - Reason: Order parameters not met) 1001 (Not Given - Provider: Annabelle Brooks RN - Reason: Order parameters not met - Comment: bs [phone])1200 (Due)1700 (Due) insulin lispro (HUMALOG,ADMELOG) injection vial 0-4 Units 0-4 Units, SubCUTAneous, NIGHTLY, First dose on Fri05/25/24 at 2100, Until Discontinued, If continuous tube feedings/TPN/NPO, give correction dose based on result, no reduction in dose. If eating or bolus tube feeding: Corrective Bedtime Algorithm Glucose: Dose: 70-299 No Insulin 300-349 4 Units Over 349 4 Units and notify physician 2011 (Not Given - Provider: Ian Xiao RN - Reason: Order parameters not met) 2030 (Not Given - Provider: Salome Garcia RN - Reason: Order parameters not met) 2100 (Due) isosorbide mononitrate (IMDUR) extended release tablet 30 mg 30 mg, Oral, DAILY, First dose on Fri05/24/24 at 0900, Until Discontinued, Do not crush or chew. 0813 (Given - Provider: Anne Marie Carreon RN) 1004 (Given - Provider: Anne Marie Carreon RN) 0958 (Given - Provider: Annabelle Brooks RN) polyethylene glycol (GLYCOLAX) packet 17 g 17 g, Oral, DAILY, First dose on Fri05/28/24 at 0900, Until Discontinued, Post-op 0809 (Given - Provider: Anne Marie Carreon RN) 1008 (Not Given - Provider: Anne Marie Carreon RN - Reason: Patient/family refused) 1001 (Not Given - Provider: Annabelle Brooks RN - Reason: Patient/family refused) sodium chloride flush 0.9 % injection 5-40 mL 5-40 mL, IntraVENous, EVERY 12 HOURS SCHEDULED (2 times per day), First dose on Fri05/23/24 at 2230, Until Discontinued, For Line Patency: Peripheral IV = 5 mL; Midline or Central Line = 10 mL/lumen. If following IV push medication, administer flush at same rate as the IV push. Flush volume is determined by type of infusion therapy being given. For non-viscous solutions use: Peripheral IV = 5 mL Midline or Central Line = 10 mL/lumen For viscous solutions (i.e. blood components, parenteral nutrition, contrast media, or after obtaining blood sample) use: Peripheral IV = 10 mL Midline or Central Line = 20 mL/lumen 0851 (Given - Provider: Anne Marie Carreon RN)203 (Given - Provider: Ian Xiao RN) 100 (Given - Provider: Anne Marie Carreon RN)220 (Given - Provider: Salome Garcia, RN) 100 (Given - Provider: Annabelle Brooks, RN)2100 (Due) sodium chloride flush 0.9 % injection 5-40 mL 5-40 mL, IntraVENous, EVERY 12 HOURS SCHEDULED (2 times per day), First dose on Fri05/27/24 at 2115, Until Discontinued, For Line Patency: Peripheral IV = 5 mL; Midline or Central Line = 10 mL/lumen. If following IV push medication, administer flush at same rate as the IV push. Flush volume is determined by type of infusion therapy being given. For non-viscous solutions use: Peripheral IV = 5 mL Midline or Central Line = 10 mL/lumen For viscous solutions (i.e. blood components, parenteral nutrition, contrast media, or after obtaining blood sample) use: Peripheral IV = 10 mL Midline or Central Line = 20 mL/lumen, Post-op 0815 (Given - Provider: Anne Marie Carroen RN)2043 (Given - Provider: Ian Xiao RN) 1123 (Given - Provider: Anne Marie Carreon RN)213 (Given - Provider: Salome Garcia, VALENTINA) 1001 (Given - Provider: Annabelle Brooks, VALENTINA)2100 (Due) spironolactone (ALDACTONE) tablet 25 mg 25 mg, Oral, DAILY, First dose on Fri06/01/24 at 1030, Until Discontinued 0808 (Given - Provider: Anne Marie Carreon RN) 1003 (Given - Provider: Anne Marie Carreon RN) 0958 (Given - Provider: Annabelle Brooks, RN) PRN Medication Order 06/03/2024 06/04/2024 06/05/2024 0.9 % sodium chloride infusion IntraVENous, at 5-250 mL/hr, PRN, if patient receiving piggyback infusions and maintenance fluids are not ordered OR KVO fluids to protect IV site / prevent frequent line interruptions/ long duration, Starting on Enigma 05/23/24 at 2216, For piggyback infusion, administer at same rate as piggyback for a total of 25 mL. Enter 25 mL into dose field and piggyback rate into rate field of order. If piggyback is infusing at a rate less than 100 mL/hr, enter 25 mL into dose field and 100 mL/hr into rate field of order. For KVO fluids, enter rate of 20 mL/hr or less into rate field of order. 0.9 % sodium chloride infusion IntraVENous, at 5-250 mL/hr, PRN, if patient receiving piggyback infusions and maintenance fluids are not ordered OR KVO fluids to protect IV site / prevent frequent line interruptions/ long duration, Starting on [facility] 05/27/24 at 2051, For piggyback infusion, administer at same rate as piggyback for a total of 25 mL. Enter 25 mL into dose field and piggyback rate into rate field of order. If piggyback is infusing at a rate less than 100 mL/hr, enter 25 mL into dose field and 100 mL/hr into rate field of order. For KVO fluids, enter rate of 20 mL/hr or less into rate field of order., Post-op bisacodyl (DULCOLAX) suppository 10 mg 10 mg, Rectal, DAILY PRN, Starting on Sanjuana 05/27/24 at 2051, Until Discontinued, Constipation, Second line therapy for constipation, After 24 hours, if no result from first line PRN therapy, give second line therapy in combination with first line therapy., Post-op cyclobenzaprine (FLEXERIL) tablet 10 mg 10 mg, Oral, 3 TIMES DAILY PRN, Starting on Sanjuana 05/27/24 at 2051, Until Discontinued, Muscle spasms, Post-op 0808 (Given - Provider: Anne Marie Carreon RN)1308 (Given - Provider: Anne Marie Carreon RN) 1003 (Given - Provider: Anne Marie Carreon RN)1336 (Given - Provider: Anne Marie Carreon RN)1943 (Given - Provider: Salome Garcia RN) dextrose 10 % infusion IntraVENous, at 100 mL/hr, CONTINUOUS PRN, if blood glucose remains LESS THAN 70 mg/dL after 2 dextrose 10% intravenous boluses or administration of glucagon, Starting on Fri05/24/24 at 0430, If blood glucose fails to stabilize after 2 dextrose 10% intravenous boluses or glucagon administration, start dextrose 10% infusion at 100 mL/hour and repeat blood glucose at 30 and 60 minutes. If blood glucose is GREATER THAN 70 mg/dL after 60 minutes, discontinue dextrose 10% infusion. dextrose bolus 10% 125 mL(Linked Group 2) 125 mL, IntraVENous, at 937.5 mL/hr, Administer over 8 Minutes, PRN, Other, Blood glucose 40 - 69 mg/dL and patient NOT ALERT or NPO, Starting on Fri05/24/24 at 0430, Repeat blood glucose in 15 minutes. If blood glucose remains LESS THAN 70 mg/dL, repeat treatment and recheck blood glucose in 15 minutes x 2. If using glycemic management system, dose as instructed per system. If blood glucose remains LESS THAN 70 mg/dL after 2 intravenous boluses start dextrose 10% at 100 mL/hour and notify provider. dextrose bolus 10% 250 mL(Linked Group 2) 250 mL, IntraVENous, at 937.5 mL/hr, Administer over 16 Minutes, PRN, Other, Blood glucose LESS THAN 40 mg/dL and patient NOT ALERT or NPO, Starting on Fri05/24/24 at 0430, Repeat blood glucose in 15 minutes. If blood glucose remains LESS THAN 70 mg/dL, repeat treatment and recheck blood glucose in 15 minutes x 2. If using glycemic management system, dose as instructed per system. If blood glucose remains LESS THAN 70 mg/dL after 2 intravenous boluses start dextrose 10% at 100 mL/hour and notify provider. glucagon injection 1 mg 1 mg, SubCUTAneous, PRN, Starting on Fri05/24/24 at 0430, Until Discontinued, Low blood sugar, Blood glucose LESS THAN 70 mg/dL and patient NOT ALERT or NPO and does not have IV access., After administration, attempt intravenous access and start dextrose 10% at 100 mL/hr. Repeat blood glucose in 15 minutes x 2 and notify provider. glucose chewable tablet 16 g 16 g (4 tablet), Oral, PRN, Starting on 8/19/24 at 0430, Until Discontinued, Low blood sugar, If blood glucose is LESS THAN 70 mg/dL and patient is alert and tolerating oral. Give 4 tablets (16g) Repeat blood glucose in 15 minutes. If blood glucose is LESS THAN 70 mg/dL, repeat treatment and recheck blood glucose in 15 minutes x 2. If blood glucose remains LESS THAN 70 mg/dL, notify provider. HYDROcodone-acetaminophen (NORCO) 5-325 MG per tablet 1 tablet 1 tablet, Oral, EVERY 4 HOURS PRN, Starting on Fri05/27/24 at 2052, Until Discontinued, Pain Moderate (4-6), Maximum dose of acetaminophen is 4000 mg from all sources in 24 hours., Post-op 1148 (Given - Provider: Anne Marie Carreon RN) 1003 (Given - Provider: Anne Marie Carreon RN)1756 (Given - Provider: Anne Marie Carreon RN) HYDROcodone-acetaminophen (NORCO) 5-325 MG per tablet 2 tablet 2 tablet, Oral, EVERY 4 HOURS PRN, Starting on Fri05/27/24 at 205, Until Discontinued, Pain Severe (7-10), Maximum dose of acetaminophen is 4000 mg from all sources in 24 hours., Post-op 2242 (Given - Provider: Salome Garcia, VALENTINA) 0540 (Given - Provider: aSlome Garcia, VALENTINA) labetalol (NORMODYNE;TRANDATE) injection 10 mg 10 mg, IntraVENous, EVERY 6 HOURS PRN, Starting on Fri05/24/24 at 0602, Until Discontinued, High Blood Pressure, For SBP >160 mmHg. Hold if heart rate less than 60 bpm. LORazepam (ATIVAN) injection 4 mg 4 mg, IntraVENous, EVERY 5 MIN PRN, Starting on Fri05/23/24 at 2216, Until Discontinued, Seizures, May repeat dose (4 mg) X 1 for seizures lasting more than 5 minutes. Notify provider if administered for seizure. magic (miracle) mouthwash 5 mL, Mouth/Throat, Once as needed, 1 dose, Starting on Fri05/30/24 at 0809, Until Discontinued, Irritation metoclopramide (REGLAN) injection 10 mg 10 mg, IntraVENous, EVERY 6 HOURS PRN, Starting on Sanjuana 05/27/24 at 2056, Until Discontinued, Heartburn, Nausea, IV Push: Max 10 mg over 1-2 minutes. ondansetron (ZOFRAN) injection 4 mg(Linked Group 3) 4 mg, IntraVENous, EVERY 6 HOURS PRN, Starting on 05/23/24 at 2216, Until Discontinued, Nausea, Vomiting, Administer if oral route cannot be used. ondansetron (ZOFRAN-ODT) disintegrating tablet 4 mg(Linked Group 3) 4 mg, Oral, EVERY 8 HOURS PRN, Starting on 05/23/24 at 2216, Until Discontinued, Nausea, Vomiting senna (SENOKOT) tablet 8.6 mg 8.6 mg (1 tablet), Oral, DAILY PRN, Starting on Sanjuana 05/27/24 at 2051, Until Discontinued, Constipation, First line therapy for constipation, Post-op sodium chloride flush 0.9 % injection 5-40 mL 5-40 mL, IntraVENous, PRN, Starting on 05/23/24 at 2216, Until Discontinued, Line Care, After every IV line use, For Line Patency: Peripheral IV = 5 mL; Midline or Central Line = 10 mL/lumen. If following IV push medication, administer flush at same rate as the IV push. Flush volume is determined by type of infusion therapy being given. For non-viscous solutions use: Peripheral IV = 5 mL Midline or Central Line = 10 mL/lumen For viscous solutions (i.e. blood components, parenteral nutrition, contrast media, or after obtaining blood sample) use: Peripheral IV = 10 mL Midline or Central Line = 20 mL/lumen sodium chloride flush 0.9 % injection 5-40 mL 5-40 mL, IntraVENous, PRN, Starting on Sanjuana 05/27/24 at 2051, Until Discontinued, Line Care, After every IV line use, For Line Patency: Peripheral IV = 5 mL; Midline or Central Line = 10 mL/lumen. If following IV push medication, administer flush at same rate as the IV push. Flush volume is determined by type of infusion therapy being given. For non-viscous solutions use: Peripheral IV = 5 mL Midline or Central Line = 10 mL/lumen For viscous solutions (i.e. blood components, parenteral nutrition, contrast media, or after obtaining blood sample) use: Peripheral IV = 10 mL Midline or Central Line = 20 mL/lumen, Post-op sodium phosphate (FLEET) rectal enema 1 enema 1 enema, Rectal, ONCE PRN, 1 dose, Starting on Fri06/04/24 at 1618, Until 06/05/24 at 1618, Constipation Linked Groups Order Group 1: famotidine (PEPCID) 20 mg in sodium chloride (PF) 0.9 % 10 mL injectionJump to med 20 mg, IntraVENous, DAILY, First dose on Fri05/28/24 at 0900, Until Discontinued, IV Push over minimum of 2 minutes - Dilute with 10 mL NS Administer if oral route cannot be used Or famotidine (PEPCID) tablet 20 mgJump to med 20 mg, Oral, DAILY, First dose on Fri05/28/24 at 0900, Until Discontinued Group 2: dextrose bolus 10% 125 mLJump to med 125 mL, IntraVENous, at 937.5 mL/hr, Administer over 8 Minutes, PRN, Other, Blood glucose 40 - 69 mg/dL and patient NOT ALERT or NPO, Starting on Fri05/24/24 at 0430, Repeat blood glucose in 15 minutes. If blood glucose remains LESS THAN 70 mg/dL, repeat treatment and recheck blood glucose in 15 minutes x 2. If using glycemic management system, dose as instructed per system. If blood glucose remains LESS THAN 70 mg/dL after 2 intravenous boluses start dextrose 10% at 100 mL/hour and notify provider. Or dextrose bolus 10% 250 mLJump to med 250 mL, IntraVENous, at 937.5 mL/hr, Administer over 16 Minutes, PRN, Other, Blood glucose LESS THAN 40 mg/dL and patient NOT ALERT or NPO, Starting on Fri05/24/24 at 0430, Repeat blood glucose in 15 minutes. If blood glucose remains LESS THAN 70 mg/dL, repeat treatment and recheck blood glucose in 15 minutes x 2. If using glycemic management system, dose as instructed per system. If blood glucose remains LESS THAN 70 mg/dL after 2 intravenous boluses start dextrose 10% at 100 mL/hour and notify provider. Group 3: ondansetron (ZOFRAN-ODT) disintegrating tablet 4 mgJump to med 4 mg, Oral, EVERY 8 HOURS PRN, Starting on Fri05/23/24 at 2216, Until Discontinued, Nausea, Vomiting Or ondansetron (ZOFRAN) injection 4 mgJump to med 4 mg, IntraVENous, EVERY 6 HOURS PRN, Starting on 05/23/24 at 2216, Until Discontinued, Nausea, Vomiting, Administer if oral route cannot be used. FOR RECORDS PERTAINING TO PATIENTS WHO ARE [...] BE BASED ON THE PRIMARY CLINICAL RECORDS. [facility]. provides no warranty or guarantee of the accuracy or completeness of information in this document."
[2024-11-11 11:50] LABS: Albumin Level 3.7 g/dL (3.4-5.0); Anion Gap 14.5; BUN Creatinine Ratio 16.2; Carbon Dioxide 27.4 mmol/L (21.0-32.0); Chloride 102 mmol/L (98-107); Estimated GFR (African America 25 (>=60 mL/min/1.73m^2); Estimated GFR (Non-African Ame 20 (>=60 mL/min/1.73m^2); Glucose 256 mg/dL (74-106); Phosphorus 4.4 mg/dL (2.6-4.7); Potassium 4.9 mmol/L (3.5-5.1); Sodium 139 mmol/L (136-145)
== END 2024-11-11 11:04 | disposition home or self-care (01) ==
PROVIDERS: Visit Provider Internal Medicine
DX: E87.6 Hypokalemia (principal); N18.9 Chronic kidney disease, unspecified; N18.4 Chronic kidney disease, stage 4 (severe)
CPT/HCPCS: 36415; 80069

== ENCOUNTER 2025-06-07 09:14 | Outpatient (OUT) | payer MEDICARE, SELFPAY ==
--- OUTSIDE RECORDS SUMMARY | 2021-09-13 04:45 | XMS_ITS | Continuity of Care Document ---
Author Organization [facility] Address [address] [place] [address] Phone Care Team Providers Care Vp Lab Name Role Phone Carl Browning Unavailable Unavailable Allergies, Adverse Reactions, Alerts Substance Reaction Status Criticality aspirin Active No Information Medications Medication Instructions Dosage Effective Dates (start - stop) Status Comments Demerol 50 mg tablet take 1 tablet (50MG ) by oral route every 4 hours as needed - Active sumatriptan 25 mg tablet take 1 tablet (25MG) by oral route once with fluids as early as possible after the onset of a migraine attack;may repeat after 2 hours if headache returns, not to exceed 200mg in 24hrs 25 MG - Active Procedures Procedure Date Moderna Booster Moderna Booster Moderna COVID Vaccine Admin Dose 2 Moderna COVID-19 Vaccine Moderna COVID Vaccine Admin Dose 1 Moderna COVID-19 Vaccine Extract; Erupted Th/exposted Rt 014 Intraoral-periapical 1st Film 4 Limited Oral Eval Oral Hygiene Instruction Advance Directives Directive Yes / No Effective Date File Name No Information Encounters Encounter Description Practice Location Reason(s) For Visit Diagnoses Date Provider Providers Copied on Encounter [facility], [address], [place], [id number], tel:[phone] COVID [facility] No Information Jasmine Peres. [address], [place], [id number], [place]. tel:[phone] [facility], [address], [place], [id number], [place] tel:[phone] COVID [facility] No Information Jasmine Peres. [address], [place], [id number], [place]. tel:[phone] [facility], [address], [place], [id number], [place] tel:[phone] COVID [facility] No Information Jasmine Peres. [address], [place], [id number], [place]. tel:[phone] [facility], [address] [place] [address], [id number], [place] tel:[phone] Dental Clinic Dental examination Johnathan DMD January. [address], [place], [id number], [place]. tel:[phone] [facility], [address] [place] [address], [id number], [place] tel:[phone] Dental Clinic Dental examination Johnathan DMD January. [address], [place], [id number], [place]. tel:[phone] Family History Family Member Type Diagnosis Age At Onset No Information Immunizations Vaccine Date Status Comments Moderna Booster administered Source: New Immunization Record Moderna COVID administered Source: New Im munization Record Moderna COVID administered Source: New Im munization Record Payers Payer name Insurance type Covered green party ID Authoriza tion(s) Medicare PPS MB [id number] Medicare PPS MB [id number] Medicare PPS MB [id number] Medicare PPS MB [id number] Social History Type Description Quantity Date Captured Comments Alcohol Use Details Unknown Caffeine Use Details Unknown Tobacco Use Status No Information Smoking Status No Information Sex Male Sexual Orientation Straight or heterosexual Gender Identity Male Chief Complaint And Reason For Visit No Information Reason For Referral Reason For Referral No Information History Of Present Illness Encounter Date Complaint History Of Prese nt Illness No Information Functional Status Date Functional Assessmen t No Information Instructions Date Instruction Additional Infor mation No Information Assessments Type Assessment Date No Information Patient Care Teams Name Effective Dates (start - stop) Status Members No Information
--- OUTSIDE RECORDS SUMMARY | 2025-05-24 10:26 | XMS_ITS | Continuity of Care Document ---
Author Organization [facility] Address [address] [place] [address] Phone Care Team Providers Care Commodity Supervisor Name Role Phone Bronwyn Adorno E DO Primary Care Provider Bronwyn Adorno E DO Attending Provider Lizette Alanis APRN Attending Provider Alex Reeves II, MD Attending Provider Care Teams Patient Care Team Team Status: Active Member Role Status Dates Bronwyn Adorno DO Primary Care Provider Active Visit Care Team Team Status: Inactive Member Role Status Dates Bronwyn Adorno , DO Primary Care Provider Active Start: March 09, 2025 End: March 09, 2025 Bronwyn Adorno , DO Attending Provider Active Start: March 09, 2025 End: March 09, 2025 Visit Care Team Team Status: Inactive Member Role Status Dates Bronwyn Adorno , DO Primary Care Provider Active Start: April 28, 2025 End: April 28, 2025 Lizette Alanis APRN Attending Provider Active Start: April 28, 2025 End: April 28, 2025 Visit Care Team Team Status: Inactive Member Role Status Dates Bronwyn Adorno DO Primary Care Provider Active Start: April 28, 2025 End: April 28, 2025 Lizette Alanis APRN Attending Provider Active Start: April 28, 2025 End: April 28, 2025 Visit Care Team Team Status: Inactive Member Role Status Dates Bronwyn Adorno DO Primary Care Provider Active Start: May 11, 2025 End: May 11, 2025 Alex Reeves II, MD Attending Provider Active Start: May 11, 2025 End: May 11, 2025 Visit Care Team Team Status: Inactive Member Role Status Dates Bronwyn Adorno DO Primary Care Provider Active Start: May 11, 2025 End: May 11, 2025 Alex Reeves II, MD Attending Provider Active Start: May 11, 2025 End: May 11, 2025 Patient Care Team Team Status: Inactive Member Role Status Dates Bronwyn Adorno DO Primary Care Provider Active Start: May 24, 2025 End: May 24, 2025 Bronwyn Adorno DO Attending Provider Active Start: May 24, 2025 End: May 24, 2025 Chief Complaint and Reason for Visit Chief Complaint Admit Date E11.9 E87.6 E11.22 E78.5 I10 N18.4 March 09, 2025 9:04am knee pain after fall April 28, 2025 11: 50am m25.562 April 28, 2025 12:5 5pm M25.562 - Pain in left knee May 11, 2025 9:04am UC DAIANA LT KNEE PAIN AFTER FALL WX Augu 2024 11:29am [id number] May 24, 2025 1: 25pm Reason for Visit Admit Date MCL sprain of left knee April 28, 2025 11:50am MCL sprain of left knee May 11, 2025 11:29am Anemia of renal disease May 24 1:25pm CAD (coronary artery disease) May 1:25pm Chronic kidney disease, stage IV (severe ) May 24, 2025 1:25pm Chronic pancreatitis May 24, 2025 1 :25pm HTN (hypertension) May 24, 2025 1: 25pm Hyperlipemia May 24, 2025 1: 25pm Hypertensive chronic kidney disease with stage 1 through stage 4 chronic ki May 24, 2025 1:25pm Lumbar stenosis with neurogenic claudica tion May 24, 2025 1:25pm MCL sprain of left knee May 24 1:25pm Medicare annual wellness visit, debbie villanueva May 24, 2025 1:25pm Type 2 diabetes mellitus wit h diabetic chronic kidney disease May 24, 2025 1:25pm Allergies, Adverse Reactions, Alerts Allergen Type Severity Reaction Last Updated Verified Status Comments aspirin Allergy Unknown Swelling of Lip/Tongue/ Throat, lips turn blue if takes 2 May 24, 2025 1:44pm Yes Active Pt states, I can take 1 aspirin but anymore than that my lips swell. Pt confirmed that currently taking 81mg PO daily safely. oxycodone Allergy Unknown Swelling of Lip/Tongue/ Throat, swelling of throat May 24, 2025 1:44pm Yes Active Has tolerated hydromorphone in this hospital amlodipine Adverse Reaction Unknown Edema May 24, 2025 1:44pm Yes Active Social History Smoking Status Status Start Date End Date Date of Observa tion Smokes tobacco daily (finding) October 06, 2024 6:32pm Observation Status Observation Response Date of Response Legal Sex Male (finding) Sex Assigned At Male 1950 Family History Relationship Condition Age at Onset Recorded Date/T tony sister Cerebral aneurysm Unknown brother Myocardial infarction Unknown mother Type 2 diabetes mellitus Unknown father Diabetes mellitus Unknown Unknown mother Diabetes mellitus Unknown Presence of cardiac pacemaker Unknown Unknown Problems Active Problems Medical Problem Onset Date Status Bilateral cataracts Unknown Active Gynecomastia Unknown Active Medicare annual wellness visit, subsequent Unkno wn Active Type 2 diabetes mellitus with diabetic chronic k idney disease Unknown Active MCL sprain of left knee Unknown Active History of ST elevation myocardial infarction (S VIVI) Unknown Active Stented coronary artery Unknown Active Spondylolisthesis, lumbar region Unknown Active Thyroid nodule Unknown Active Secondary hyperparathyroidism Unknown Ac tive Secondary hyperparathyroidism Unknown Ac tive Diabetes mellitus Unknown Active Chronic kidney disease, stage IV (severe) Unknow n Active CAD (coronary artery disease) Unknown Ac tive Tubular adenoma Unknown Active Arthritis Unknown Active Hypertensive chronic kidney disease with stage 1 through stage 4 chronic kidney disease, or unspecified chronic kidney disease Unknown Active Hyperlipemia Unknown Active Diabetes mellitus with hyperglycemia Unknown Active Spinal stenosis at L4-L5 level Unknown A ctive Proteinuria Unknown Active Chronic pancreatitis Unknown Active Chronic renal insufficiency Unknown Acti ve Left knee pain Unknown Active Abnormal thyroid scan Unknown Active Anemia of renal disease Unknown Active HTN (hypertension) Unknown Active Thyroid disease Unknown Active Lumbar stenosis with neurogenic claudication Unk nown Active Hypokalemia Unknown Active Inactive/Resolved Problems Medical Problem Onset Date Status Acute kidney injury Unknown Resolved MEAGHAN (acute kidney injury) Unknown Resolv ed Hypertensive urgency Unknown Resolved Acute flank pain Unknown Resolved Right knee sprain Unknown Resolved Fracture of fifth metacarpal bone of right hand Unknown Resolved Hypertensive emergency Unknown Resolved CKD (chronic kidney disease) stage 3, GFR 30-59 ml/min Unknown Resolved Acute hyperglycemia Unknown Resolved CKD (chronic kidney disease) Unknown Res olved STEMI (ST elevation myocardial infarction) Unkno wn Resolved Perinephritis Unknown Resolved Near syncope Unknown Resolved Pyelonephritis Unknown Resolved Acute kidney injury superimposed on CKD Unknown Resolved CRI (chronic renal insufficiency) Unknown Resolved Abdominal pain Unknown Resolved Fall Unknown Resolved Hyperkalemia Unknown Resolved Acute hyperkalemia Unknown Resolved Acute hyperkalemia Unknown Resolved Medications Medication Status Dose Units Route Directions Qty Days St art Date Stop Date End Date Instructions Adherence Dapaglifloz in Propanediol (Farxiga) 5 mg tablet Discont inued 5 MG PO Daily 2023 1:00am December 25, 2023 11:03 am Insulin Glargine (Lantus Solostar U-100 Insulin) 100 unit/mL (3 mL) insulin pen Discont inued 10 UNIT SUBCUT Daily 2023 1:42pm December 25, 2023 10:40 am Ferrous Sulfate 325 mg (65 mg iron) tablet Discont inued 325 MG PO Every morning January 16, 2024 9:15am 2024 8:37a m Cyclobenzap rine 10 mg tablet Discont inued 10 MG PO Daily at bedtime as needed for back spasms January 22, 2024 10:30a m January 22, 2024 11:16 am Cyclobenzap rine 10 mg tablet Discont inued 10 MG PO Daily at bedtime as needed for back spasms January 22, 2024 11:16a m Octob er 2023 11:21 am Pantoprazol e 40 mg tablet,parul yed release (DR/EC) Discont inued 40 MG PO Daily March 15, 2024 10:56a m Octob er 2023 10:55 am Ferrous Sulfate 325 mg (65 mg iron) tablet Discont inued 325 MG PO Every morning 2024 8:37am April 22, 2024 1:47p m Ferrous Sulfate 325 mg (65 mg iron) tablet Discont inued 0 .ROUTE .COMPLEX April 22, 2024 1:47pm minnie 2023 1:18p m TAKE 1 TABLET EVERY MORNING Cyclobenzap rine 10 mg tablet Discont inued 10 MG PO Daily at bedtime as needed for back spasms Julobe r 2023 11:21a m Decem minnie 2023 1:03p m Ferrous Sulfate 325 mg (65 mg iron) tablet Discont inued 0 .ROUTE .COMPLEX 90 Novemb er 2023 1:18pm minnie 2023 3:59p m TAKE 1 TABLET EVERY MORNING Spironolact one 25 mg tablet Discont inued 25 MG PO Daily Dece er 2023 1:01pm Octua ry 2024 2:48p m Ferrous Sulfate 325 mg (65 mg iron) tablet Discont inued 0 .ROUTE .COMPLEX 90 [facility] er 2023 1:03pm Febru elo2024 9:56a m TAKE 1 TABLET EVERY MORNING Cyclobenzap rine 10 mg tablet Discont inued 0 .ROUTE .COMPLEX 30 Dece er 2023 1:03pm Febru elo 2024 9:51a m TAKE 1 TABLET BY MOUTH DAILY AT BEDTIME NEEDED FOR BACK SPASMS Insulin Glargine (Lantus Solostar U-100 Insulin) 100 unit/mL (3 mL) insulin pen Discont inued 10 UNIT SUBCUT Twice daily 2024 8:54am February 21, 2025 2:17p m Pen Needle, Diabetic (Bd Ultra-Fine Short Pen Needle) 31 gauge x 5/16 needle Discont inued 0 .MEDSUPPLY 200 2024 1:00am 2024 2:38p m us to administer insulin up to 2x daily Potassium Chloride 20 mEq tablet extended release Discont inued 60 MEQ PO Once 2024 1:00am 2024 5:40p m Pen Needle, Diabetic (Bd Rachelle 2nd Gen Pen Needle) 32 gauge x 5/32 needle Active 0 .ROUTE .COMPLEX 200 2024 2:38pm use to administer insulin 2x per day. Complies with drug therapy Potassium Chloride 20 mEq tablet extended release Discont inued 60 MEQ PO .COMPLEX 15 y 2024 5:36pm Febru elo 2024 10:02 am 60 mEq orally for three days; Clonidine Hcl 0.1 mg tablet Active 0.1 MG PO Every 12 hours December 09, 2024 8:59am Complies with drug therapy Cyclobenzap rine 10 mg tablet Discont inued 10 MG PO Daily at bedtime as needed for muscle spasm February 07, 2025 7:39am May 02, 2025 7:55a m Ergocalcife rol (Vitamin D2) 1,250 mcg (50,000 unit) capsule Discont inued 0 .ROUTE .COMPLEX February 18, 2025 8:31am Augus t 2024 1:45p m TAKE 1 CAPSULE BY MOUTH ONCE EVERY WEEK Ferrous Sulfate 325 mg (65 mg iron) tablet Discont inued 325 MG PO Daily March 04, 2025 1:53pm May 05, 2025 1:18p m Cyclobenzap rine 10 mg tablet Active 10 MG PO Daily at bedtime as needed for muscle spasm May 02, 2025 7:55am Complies with drug therapy Ferrous Sulfate 325 mg (65 mg iron) tablet Active 325 MG PO Daily May 05, 2025 1:17pm Complies with drug therapy Atorvastati n 80 mg Tablet Discont inued 80 MG PO Daily 30 b er 2016 1:00am Novem 2019 11:48 am Nitroglycer in 0.4 mg Tablet, Sublingual Active 0.4 MG SUBLIN GUAL Q5M as needed for Chest Pain 30 Novemb er 2016 1:00am Complies with drug therapy Aspirin 81 mg Tablet,Chew able Discont inued 81 MG PO Daily 0 30 Novemb er 2016 1:00am Decem minnie 2021 12:11 pm Levofloxaci n 750 mg Tablet Discont inued 750 MG PO Q48H 0 b er 2016 1:00am Decem minnie 2016 9:01p m Metoprolol Tartrate 25 mg Tablet Discont inued 25 MG PO Twice daily 60 Novemb er 2016 1:00am Decem minnie 2016 9:01p m Ticagrelor (Brilinta) 90 mg Tablet Discont inued 90 MG PO Twice daily 360 180 Novemb er 2016 1:00am Novem minnie 2019 8:33a m Insulin Glargine (Lantus U-100 Insulin) 100 unit/mL Solution Discont inued 50 UNIT SUBCUT Daily 0 Novemb er 2016 1:59pm Febru elo 2021 11:04 am Metformin 500 mg tablet Discont inued 500 MG PO Twice daily Novemb er 2019 1:00am December 25, 2023 10:39 am On Hold: Until renal function improves Isosorbide Mononitrate 60 mg tablet extended release 24 hr Discont inued 60 MG PO Daily Novemb er 2019 1:00am Dece minnie 2021 12:10 pm Multivit-Mi n-Ferrous Gluconate (Centrum) 9 mg iron/ 15 mL (15 mL) Liquid Discont inued 15 ML PO Daily Novemb er 2019 1:00am 2024 9:42a m Atorvastati n 20 mg Tablet Active 20 MG PO Daily at bedtime Novemb er 2019 1:00am Complies with drug therapy Cefdinir 300 mg capsule Discont inued 300 MG PO Twice daily 14 7 Novemb er 2019 1:00am Decem minnie 2019 12:24 pm Saccharomyc es Boulardii (Florastor) 250 mg capsule Discont inued 250 MG PO Twice daily 60 Novemb er 2019 1:00am Dece minnie 2020 10:01 am open capsule; add to semi-solid food (e.g., applesauce, oatmeal, yogurt) or drink (e.g., water, juice, milk, formula) Hydralazine 50 mg tablet Discont inued 50 MG PO Twice daily 60 Novemb er 2019 1:00am 2022 11:40 am Multivit-Mi n-Ferrous Gluconate (Centrum) 9 mg iron/ 15 mL (15 mL) liquid Active 15 ML PO Daily y 2024 9:39am Complies with drug therapy Clopidogrel 75 mg Tablet Discont inued 75 MG PO Daily 30 30 Decemb er 2019 1:00am Decem minnie 2020 10:01 am Carisoprodo l 350 mg tablet Discont inued 350 MG PO Daily April 25, 2021 12:00a m [facility] 2020 10:20 am Ferrous Sulfate 325 mg (65 mg iron) tablet Discont inued 325 MG PO Every morning April 25, 2021 12:00a m January 16, 2024 9:15a m Clindamycin Hcl 150 mg capsule Discont inued 450 MG PO Three times daily 90 10 Octobe r 2021 12:00a m [facility] minnie 2021 12:04 pm Prednisone 20 mg tablet Discont inued 20 MG PO Twice daily 10 5 Octobe r 2021 12:00a m [facility] minnie 2021 12:04 pm Isosorbide Mononitrate 30 mg tablet extended release 24 hr Active 30 MG PO Every morning [facility] er 2021 1:00am Complies with drug therapy Cyanocobala min (Vitamin B-12) (Vitamin B-12) 1,000 mcg Tablet Active 1000 MCG PO Every morning [facility] er 2021 1:00am Complies with drug therapy Aspirin 81 mg tablet,chew able Active 81 MG PO Every morning [facility] er 2021 12:10p m Complies with drug therapy Hydrocodone -Acetaminop hen 5-325 mg tablet Discont inued 1 - 2 TAB PO Q6H as needed for pain 40 10 [facility] er 2021 Octob er 2022 2:35p m Cyclobenzap rine 10 mg tablet Discont inued 10 MG PO Three times daily as needed for back spasms 40 [facility] er 2021 1:00am [facility] 2022 3:50p m Prednisone 10 mg tablets,dos e pack Discont inued 1 dose pk PO per package directions 30 [facility] er 2021 1:00am [facility] 2022 3:57p m take 4 tabs for 3 days then take 3 tabs for 3 days then take 2 tabs for 3 days then take 1 tab for 3 days Carvedilol 25 mg Tablet Active 25 MG PO Twice daily with meals 60 30 y 2022 1:00am Further refills, or dose adjustment, per PCP Complies with drug therapy Hydralazine 50 mg Tablet Discont inued 100 MG PO Twice daily 120 30 2022 1:00am Dece 2022 3:47p m Further refills, or dose adjustment, per PCP Insulin Glargine (Lantus U-100 Insulin) 100 unit/mL solution Discont inued 10 UNIT SUBCUT Every morning 2022 11:41a m Decem 2022 3:59p m Further refills per PCP Amlodipine 10 mg Tablet Discont inued 10 [facility] 1:00[facility] December 14, 2020 12:29 pm Furosemide (Lasix) 40 mg Tablet Discont inued 40 MG PO Daily as needed for Edema [facility] er 2016 1:00am April 25, 2021 10:48 pm Atorvastati n (Lipitor) 20 mg Tablet Discont inued 20 MG PO Daily [facility] 1:00am Novem minnie 2016 1:50p m Insulin Glargine (Lantus) 100 unit/mL Solution Discont inued 50 UNITS SUBCUT Daily [facility] er 2016 1:00am [facility] minnie 2016 1:59p m Glipizide 10 mg Tablet Discont inued 10 MG PO Twice daily [facility] 2016 1:00am [facility] minnie 2019 10:11 am Ropinirole 1 mg Tablet Discont inued 1 MG PO Bedtime [facility] 1:00am December 10, 2018 7:50p m Lisinopril 40 mg Tablet Discont inued 40 MG PO Daily [facility] 2016 1:00am [facility] minnie 2019 10:11 am Carisoprodo l 350 mg Tablet Discont inued 350 MG PO Bedtime [facility] 1:00am [facility] minnie 2016 9:01p m Prednisone 20 mg tablet Discont inued 40 MG PO Daily b er 2016 1:00am Novem minnie 2016 1:00a m Novem minnie 2016 3:31p m administer with food or milk Levofloxaci n (Levaquin) 750 mg tablet Discont inued 750 MG PO Daily 10 b er 2016 1:00am Novem minnie 2016 1:00a m Novem minnie 2016 3:31p m Albuterol Sulfate 90 mcg/actuati on HFA aerosol inhaler Discont inued 2 INH INHALA TION Every 4 hours as needed for shortness of breath or wheezing [facility] er 2016 1:00am [facility] minnie 2016 3:31p m administer with spacer Carvedilol 12.5 mg tablet Discont inued 12.5 MG PO Twice daily [facility] er 2016 1:00am [facility] ry 2022 11:40 am Lisinopril 20 mg tablet Discont inued 40 MG PO Daily [facility] er 2016 1:00am December 10, 2018 7:50p m Amlodipine 5 mg Tablet Discont inued 5 MG PO Daily December 13, 2020 1:00am [facility] minnie 2020 10:01 am Chlorhexidi ne Gluconate (Peridex) 0.12 % mouthwash Discont inued 15 ML MUCOUS MEM Twice daily April 22, 2021 12:00a m [facility] minnie 2020 10:19 am Penicillin V Potassium 500 mg tablet Discont inued 500 MG PO Twice daily 25 07April 22, 2021 12:00a m Septe mber 2020 7:24a m Furosemide 40 mg tablet Discont inued 40 MG PO Daily [facility] er 2020 1:00am Febru elo 2021 11:03 am Cyclobenzap rine 10 mg tablet Discont inued 10 MG PO Daily at bedtime [facility] er 2020 1:00am [facility] minnie 2021 10:36 am Sitagliptin Phosphate (Januvia) 100 mg tablet Discont inued 50 MG PO Twice daily [facility] er 2020 1:00am December 25, 2023 11:03 am Insulin Glargine (Lantus U-100 Insulin) 100 unit/mL solution Discont inued 10 UNIT SUBCUT Every morning ry 2021 11:04a m Jan ry 2022 11:41 am Hydrocodone -Acetaminop hen 5-325 mg tablet Discont inued 1 - 2 TAB PO EVERY 4-6 HOURS as needed for pain 14 3 ry 2021 [facility] 2021 12:11 pm Hydrocodone -Acetaminop hen 5-325 mg tablet Discont inued 1 TAB PO Q6H as needed for pain 10 3 Octobe r 2022 [facility] 2022 3:59p m Hydralazine 50 mg tablet Discont inued 50 MG PO Twice daily [facility] 2022 3:47pm April 26, 2024 1:59p m Further refills, or dose adjustment, per PCP Cyclobenzap rine 10 mg tablet Discont inued 10 MG PO Daily at bedtime as needed for back spasms [facility] er 2022 3:50pm January 22, 2024 10:30 am Insulin Glargine (Lantus U-100 Insulin) 100 unit/mL solution Discont inued 8 UNIT SUBCUT Twice daily [facility] 2022 3:59pm Febru 2023 1:42p m Further refills per PCP Pantoprazol e 40 mg Tablet,Parul yed Release (Dr/Ec) Discont inued 40 MG PO Daily 14 14 [facility] 2022 1:00am March 15, 2024 10:56 am Furosemide 40 mg tablet Discont inued MG [facility] 2023 1:00am [facility] 2023 8:46p m Pantoprazol e 40 mg tablet,parul yed release (DR/EC) Discont inued MG PO [facility] 2023 1:00am [facility] 2023 8:54p m Furosemide 40 mg tablet Active 40 MG PO Daily [facility] 2023 1:00am Complies with drug therapy Pantoprazol e 40 mg tablet,parul yed release (DR/EC) Discont inued 40 MG PO Daily [facility] 2023 1:00am [facility] 12:38 pm Glipizide 5 mg tablet Discont inued 5 MG PO Daily [facility] er 2023 1:00am [facility] ry 2024 12:27 pm Amoxicillin -Pot Clavulanate (Augmentin) 500-125 mg tablet Discont inued 1 TAB PO Every 8 hours 15 5 Octua y 2024 1:00am Octua ry 2024 1:25p m Clonidine Hcl 0.2 mg tablet Discont inued 0.2 MG PO Every 12 hours 60 Octua y 2024 1:00am Octua ry 2024 1:25p m Clonidine Hcl 0.1 mg Tablet Discont inued 0.1 MG PO Every 12 hours 120 60 2024 1:00am December 09, 2024 9:00a m Sodium Zirconium Cyclosilica te (Lokelma) 10 gram powder in packet Discont inued 10 GM PO Daily 2024 1:00am Octua ry 2024 9:42a m Cetirizine 10 mg tablet Discont inued 10 MG PO Twice daily Octobe r 2023 12:00a m Janua ry 2024 12:38 pm Spironolact one 25 mg tablet Discont inued 25 MG PO Daily Octobe r 2023 12:00a m Decem minnie 2023 1:02p m Famotidine 20 mg tablet Active 20 MG PO Daily Octobe r 2023 12:00a m Complies with drug therapy Gabapentin 300 mg capsule Discont inued 300 MG PO Twice daily Octobe r 2023 12:00a m [facility] 12:28 pm Sodium Zirconium Cyclosilica te (Lokelma) 10 gram powder in packet Discont inued 10 GM PO Every 48 hours y 2024 9:41am Febru elo 2024 10:07 am Insulin Glargine (Lantus Solostar U-100 Insulin) 100 unit/mL (3 mL) insulin pen Active 11 UNIT SUBCUT Twice daily February 21, 2025 2:16pm Complies with drug therapy Ergocalcife rol (Vitamin D2) 1,250 mcg (50,000 unit) capsule Active 82351 UNIT PO every week May 24, 2025 1:44pm Complies with drug therapy Meloxicam 15 mg tablet Active 15 MG PO daily May 11, 2025 12:00a m Complies with drug therapy Diclofenac Sodium 1 % gel Active 2 GM TOPICA L as directed as needed for knee pain 11 04May 11, 2025 12:00a m up to 5x's a day Complies with drug therapy Insulin Glargine (Lantus Solostar U-100 Insulin) 100 unit/mL (3 mL) insulin pen Discont inued 10 UNIT SUBCUT Twice daily December 25, 2023 10:39a m Janua 2024 8:54a m Glipizide 5 mg tablet Discont inued 5 MG PO Daily December 25, 2023 12:00a m March 22, 2024 11:01 am Furosemide 40 mg tablet Discont inued MG PO April 26, 2024 12:00a m Octob er 2023 10:54 am Hydralazine 50 mg tablet Discont inued 75 MG PO Twice daily April 26, 2024 1:58pm April 26, 2024 1:59p m Hydralazine 50 mg tablet Discont inued 75 MG PO Twice daily 270 April 26, 2024 1:59pm Octob er 2023 10:55 am Hydralazine 100 mg tablet Active 100 MG PO Three [facility] 1:00am Complies with drug therapy Ferrous Sulfate 325 mg (65 mg iron) tablet Discont inued 325 MG PO Daily [facility] 2023 3:59pm Dece 2023 1:03p m Ergocalcife rol (Vitamin D2) 1,250 mcg (50,000 unit) capsule Discont inued 1250 MCG PO every week 14 [facility] 1:00am February 18, 2025 8:31a m Cyclobenzap rine 10 mg tablet Discont inued 10 MG PO Daily at bedtime as needed 2024 9:51am February 07, 2025 7:39a m Ferrous Sulfate 325 mg (65 mg iron) tablet Discont inued 325 MG PO Daily 2024 9:56am March 04, 2025 1:53p m Knee Immobilizer unit Active 0 .Route 1 April 28, 2025 12:00a m As directed Immunizations Immunization Event Date Not Given Reason Dose Number Farrowing Worker Lot Number Vaccine Information Statement (VIS) Detail Administration Location COVID-19 mRNA-1273 (Moderna) December 27, 2020 COVID-19 mRNA-1273 (Moderna) January 24, 2021 COVID-19 mRNA-1273 (Moderna) September 13, 2021 COVID-19 (MODERNA) 12Y and older July 09, 2023 COVID-19 mRNA Bivalent Booster (Moderna) July 16, 2022 COVID-19 mRNA Bivalent Booster (Pfizer) April 17, 2025 Fluzone QIV High-Dose 65YR+ May 21, 2023 Pneumococcal Conjugate Vaccine, 13 valent June 21, 2019 Pneumococcal Conjugate Vaccine, 20 valent February 28, 2023 Pneumococcal Polysacc. Vaccine, 23 valent June 22, 2016 Zoster Vaccine Recombinant, Adjuvanted June 14, 2020 Zoster Vaccine Recombinant, Adjuvanted August 19, 2020 Tetanus, Diphtheria, Pertussis (Tdap) February 28, 2023 Trivalent Influenza Vaccine June 18, 2021 Trivalent Influenza Vaccine June 26, 2022 Shingles (Zoster) August 05, 2017 Medical Equipment Device Date Implanted Device Details CL STENT PROMUS REGAN 4.0 X 16 August 24, 7 CL STENT XIENCE ALP 4.0 X 08 August 24, 2017 CANCELLOUS 15CC CRUSHED October 02, 2022 Spinal fusion graft kit October 02, 2022 CM: [id number] Issuing Agency: [facility] Device Id: [id number] Expiration Date: 2024-04-04 Lot Number: [id number] Polymeric spinal fusion cage , sterile October 02, 2022 CM: [id number] Issuing Agency: [facility] Device Id: [id number] Expiration Date: 2030-02-06 Lot Number: [id number] Bone-screw internal spinal fixation system, non-sterile October 02, 2022 CM: [id number] Issuing Agency: [facility] Device Id: [id number] Bone-screw internal spinal fixation system, non-sterile October 02, 2022 CM: [id number] Issuing Agency: [facility] Device Id: [id number] Bone-screw internal spinal fixation system, non-sterile October 02, 2022 CM: [id number] Issuing Agency: [facility] Device Id: [id number] Bone-screw internal spinal fixation system, non-sterile October 02, 2022 CM: [id number] Issuing Agency: [facility] Device Id: [id number] Bone-screw internal spinal fixation system, non-sterile October 02, 2022 CM: [id number] Issuing Agency: [facility] Device Id: [id number] Bone-screw internal spinal fixation system, non-sterile October 02, 2022 CM: [id number] Issuing Agency: [facility] Device Id: [id number] Bone-screw internal spinal fixation system, non-sterile October 02, 2022 CM: [id number] Issuing Agency: [facility] Device Id: [id number] Bone-screw internal spinal fixation system, non-sterile October 02, 2022 CM: [id number] Issuing Agency: [facility] Device Id: [id number] Bone-screw internal spinal fixation system, non-sterile October 02, 2022 CM: +[id number] Issuing Agency: [facility] Device Id: [id number] Bone-screw internal spinal fixation system, non-sterile October 02, 2022 CM: [id number] Issuing Agency: [facility] Device Id: [id number] Procedures Procedure Date Performed Status XR knee LT 4V* May 11, 2025 9:05am complete d XR pelvis 1-2V May 11, 2025 9:05am complete d XR knee LT 4V* April 28, 2025 12:00am complete d Relevant Diagnostic Tests and/or Laboratory Data Laboratory Results Test Collection Date/Time Result Date/Time Result Interpretation Reference Range Result Comment Performing Site Corrected White Blood Count March 09, 2025 9:18am March 09, 2025 10:15am 6.9 10*3/uL 4.1-10.5 [facility] [id number] [address] [facility] [address] Uncorrect ed WBC Count March 09, 2025 9:18am March 09, 2025 10:15am 6.9 10*3/uL 4.1-10.5 [facility] [id number] [address] [place] [address] 28182 Red Blood Count March 09, 2025 9:18am March 09, 2025 10:15am 4.31 10*6/uL 3.90-5.60 [facility] [id number] [address] [facility] [address] Hemoglobi n March 09, 2025 9:18am March 09, 2025 10:15am 12.3 g/dL Below low normal 13.0-17.0 [facility] [id number] [address] [place] [address] 97375 Hematocri t March 09, 2025 9:18am March 09, 2025 10:15am 36.3 % Below low normal 38.8-50.0 [facility] [id number] [address] [place] [address] 39166 Mean Corpuscul ar Volume March 09, 2025 9:18am March 09, 2025 10:15am 84.1 fL 83.5-101 [facility] [id number] [address] [place] [address] 63029 Mean Corpuscul ar Hemoglobi n March 09, 2025 9:18am March 09, 2025 10:15am 28.5 pg 27.5-35.2 [facility] [id number] [address] [place] [address] 10897 Mean Corpuscul ar Hemoglobi n Concent March 09, 2025 9:18am March 09, 2025 10:15am 33.9 g/dL 32.5-35.6 [facility] [id number] [address] [place] [address] 32798 Red Cell Distribut ion Width March 09, 2025 9:18am March 09, 2025 10:15am 13.4 % 12.0-14.8 [facility] [id number] [address] [facility] [address] Platelet Count March 09, 2025 9:18am March 09, 2025 10:15am 161 10*3/uL 150-450 [facility] [id number] [address] [place] [address] 38793 Mean Platelet Volume March 09, 2025 9:18am March 09, 2025 10:15am 8.7 fL 6.6-10.1 [facility] [id number] [address] [facility] [address] Neutrophi ls (%) (Auto) March 09, 2025 9:18am March 09, 2025 10:15am 56.9 % . [facility] [id number] [address] [facility] [address] Lymphocyt es (%) (Auto) March 09, 2025 9:18am March 09, 2025 10:15am 28.6 % . [facility] [id number] [address] [facility] 12342 Monocytes (%) (Auto) March 09, 2025 9:18am March 09, 2025 10:15am 10.2 % . [facility] [id number] [address] [place] 2623070 Eosinophi ls (%) (Auto) March 09, 2025 9:18am March 09, 2025 10:15am 3.8 % . [facility] [id number] [address] [facility] [address] Basophils (%) (Auto) March 09, 2025 9:18am March 09, 2025 10:15am 0.5 % . [facility] [id number] [address] [facility] 8[address] Nucleated RBC Relative Count (auto) March 09, 2025 9:18am March 09, 2025 10:15am 0.1 /100{WB C} 0-0.5 [facility] [id number] [address] [place] 2623070 Neutrophi ls # (Auto) March 09, 2025 9:18am March 09, 2025 10:15am 3.9 10*3/uL 1.8-7.7 [facility] [id number] [address] [facility] [address] Lymphocyt es # (Auto) March 09, 2025 9:18am March 09, 2025 10:15am 2.0 10*3/uL 1.00-4.8 [facility] [id number] [address] [facility] [address] Monocytes # (Auto) March 09, 2025 9:18am March 09, 2025 10:15am 0.7 10*3/uL 0.0-0.8 [facility] [id number] [address] [place] 2623070 Eosinophi ls # (Auto) March 09, 2025 9:18am March 09, 2025 10:15am 0.3 10*3/uL 0.0-0.45 [facility] [id number] [address] [facility] [address] Basophils # (Auto) March 09, 2025 9:18am March 09, 2025 10:15am 0.0 10*3/uL 0.0-0.2 [facility] [id number] [address] [place] 2623070 Glucose Level March 09, 2025 9:18am March 09, 2025 10:48am 212 mg/dL Above high normal 70-100 ADA recommended reference rangeRandom Glucose Reference Range is dependent on time and content of last meal. Glucose of more than 200 mg/dL in a nonstressed, ambulatory subject supports the diagnosis of Diabetes Mellitus. [facility] [id number] [address] [place] 2623070 Blood Urea Nitrogen March 09, 2025 9:18am March 09, 2025 10:48am 39 mg/dL Above high normal 7-25 [facility] [id number] [address] [place], [place] 8354[address] Creatinin e March 09, 2025 9:18am March 09, 2025 10:48am 2.31 mg/dL Above high normal 0.70-1.30 [facility] [id number] [address] [place] [address] 90308 Estimated GFR (CKD-EPI) March 09, 2025 9:18am March 09, 2025 10:48am 28.918 mL/Min [facility] [id number] [address] [place], [place] 8354[address] Sodium Level March 09, 2025 9:18am March 09, 2025 10:48am 138 mmol/L 136-145 [facility] [id number] [address] [place], [place] 8[address]170 Potassium Level March 09, 2025 9:18am March 09, 2025 10:48am 4.4 mmol/L 3.5-5.1 [facility] [id number] [address] [place], [place] 8354170 Chloride Level March 09, 2025 9:18am March 09, 2025 10:48am 105 mmol/L 98-107 [facility] [id number] [address] [facility] [address] Carbon Dioxide Level March 09, 2025 9:18am March 09, 2025 10:48am 28.2 mmol/L 21.0-31.0 [facility] [id number] [address] [facility] [address] Anion Gap March 09, 2025 9:18am March 09, 2025 10:48am 9.2 mEq/L 6.0-15.0 [facility] [id number] [address] [facility] [address] Calcium Level March 09, 2025 9:18am March 09, 2025 10:48am 8.8 mg/dL 8.6-10.3 [facility] [id number] [address] [place], [place] 8354[address] Total Protein March 09, 2025 9:18am March 09, 2025 10:48am 6.1 g/dL Below low normal 6.4-8.9 [facility] [id number] [address] [facility] [address] Albumin March 09, 2025 9:18am March 09, 2025 10:48am 4.0 g/dL 3.5-5.7 [facility] [id number] [address] [facility] [address] Globulin March 09, 2025 9:18am March 09, 2025 10:48am 2.1 g/dL [facility] [id number] [address] [place] [address] 14468 Albumin/G lobulin Ratio March 09, 2025 9:18am March 09, 2025 10:48am 1.9 [facility] [id number] [address] [place] [address] 43181 Total Bilirubin March 09, 2025 9:18am March 09, 2025 10:48am 0.5 mg/dL 0.3-1.0 [facility] [id number] [address] [place] [address] 63935 Aspartate Amino Transf (AST/SGOT ) March 09, 2025 9:18am March 09, 2025 10:48am 11 U/L Below low normal 13-39 [facility] [id number] [address] [place] 2623070 Alanine Aminotran sferase (ALT/SGPT ) March 09, 2025 9:18am March 09, 2025 10:48am 11 U/L 7-52 [facility] [id number] [address] [facility] [address] Alkaline Phosphata se March 09, 2025 9:18am March 09, 2025 10:48am 108 U/L Above high normal 34-104 [facility] [id number] [address] [facility] [address] Cholester ol Level March 09, 2025 9:18am March 09, 2025 10:48am 121 mg/dL Below low normal 140-200 Chol less than 200 mg/dl low riskChol 201-239 mg/dl borderline riskChol 240 mg/dl and greater high risk [facility] [id number] [address] [place] [address] 8[address]11 HDL Cholester ol March 09, 2025 9:18am March 09, 2025 10:48am 30 mg/dL 23-92 HDL CHOL ATP-III CLASSIFICATI ON Cardiovascul ar RiskHDL > or equal to 60 mg/dL LOWHDL < 40 mg/dL HIGH [facility] [id number] [address] [place] [address] 22973 Triglycer ides Level March 09, 2025 9:18am March 09, 2025 10:48am 147 mg/dL 0-149 TRIG ATP III CLASSIFICATI ONTRIG less than 150 mg/dL NormalTRIG 150-199 mg/dL Borderline highTRIG 200-500 mg/dL High TRIG greater than 500 mg/dL Very highStandard traceable to the Center for Disease Conrtrol and Prevention (CDC) test method. [facility] [id number] [address] [facility] [address] LDL Cholester ol, Calculate d March 09, 2025 9:18am March 09, 2025 10:48am 62 mg/dL 0-100 LDL ATP III CLASSIFICATI ONLDL less than 100 mg/dL OptimalLDL 100-129 mg/dL Near or above optimalLDL 130-159 mg/dL Borderline highLDL 160-189 mg/dL HighLDL greater than 189 mg/dL Very high [facility] [id number] [address] [facility] [address] VLDL Cholester ol March 09, 2025 9:18am Susan 4th, 2025 10:48am 29 mg/dL [facility] [id number] [address] [place] [address] Cholester ol/HDL Ratio March 09, 2025 9:18am March 09, 2025 10:48am 4.0 <5.0 [facility] [id number] [address] [place], [place] [address] Pharmacy Creatinin e Clearance (Chem March 09, 2025 9:18am March 09, 2025 10:48am N/A [facility] [id number] [address] [place] [address] Diagnostic Imaging Reports Author Sagar Caraballo [facility] Authored April 28, 2025 1:24 pm Report Dictated Date/Time Dictated By Status Radiology Report April 28, 2025 1:24pm Sagar andino Jr DO completed [facility] [place] [address] XRay Report Signed Patient: Dave Lugo MR#: [id number] : 1950 Acct:[id number] Age/Sex: 75 / M ADM Date: 5 [facility] Type[facility] Attending Dr: Lizette Alanis EXPERIMENTAL DISPLAY BUILDER Copies to: Lizette Alanis APRN~ Ordering Provider: Lizette Alanis APRN Date of Service: 04/28/25 XR/XR knee LT 4V*: LEFT KNEE PAIN LEFT KNEE - 4 views CLINICAL HISTORY: Fall yesterday. Now with pain COMPARISON: None FINDINGS: Vascular calcifications. Small joint effusion. Mild degenerative changes with chondrocalcinosis of the lateral meniscus. No acute bony process. XR/XR knee LT 4V* IMPRESSION: MILD DEGENERATIVE CHANGES WITHOUT ACUTE BONY PROCESS. Impression dictated by: Sagar Caraballo Jr., D.O. 04/28/2025 1:24 PM Dictation Location: [place] [address] Transcribed By: [facility] 04/28/25 1324 Dictated By: Sagar Caraballo Jr, DO 04/28/25 1324 Signed By: <Electronically signed by Sagar Caraballo Jr, DO in OV> 04/28/25 1324 Author Robin Hernandez [facility] Authored May 11, 2025 5:0 8pm Report Dictated Date/Time Dictated By Status Radiology Report May 11, 2025 5:08pm Robin Hernandez II MD completed [facility] [address] [place] [address] XRay Report Signed Patient: Dave Lugo MR#: [id number] : 1950 Acct:[id number] Age/Sex: 75 / M ADM Date: 5 Loc: [facility] Room: Type: [facility] Attending Dr: Alex Reeves II, MD Copies to: Alex Reeves MD~ Ordering Provider: Alex Reeves MD Date of Service: 05/11/25 XR/XR knee LT 4V*: M25.562 - Pain in left knee XR knee LT 4V* 05/11/2025 12:04 PM SIGNS AND SYMPTOMS: ^M25.562 - Pain in left knee PROTOCOL: Frontal, lateral, oblique, and sunrise views of the left knee COMPARISON: 04/28/2025 FINDINGS: There is narrowing of the weightbearing joint spaces greatest laterally. The patella femoral joint space is grossly preserved. There is a small joint effusion. There is no fracture or dislocation. There is chondrocalcinosis of menisci suggesting underlying CPPD. Vascular calcifications are present in the soft tissues. XR/XR knee LT 4V* IMPRESSION: No fracture or dislocation. There is a small joint effusion. Degenerative changes are noted greatest along the lateral weightbearing joint space with findings suggesting underlying CPPD. Impression dictated by: Robin Hernandez M.D. 05/11/2025 5:10 PM Dictation Location: [place] [address] Transcribed By: [facility] 05/11/25 1710 Dictated By: Robin Hernandez II, MD 05/11/25 1708 Signed By: <Electronically signed by Robin Hernandez II, MD in OV> 05/11/25 1710 Author Robin Hernandez [facility] Authored May 11, 2025 5:1 0pm Report Dictated Date/Time Dictated By Status Radiology Report May 11, 2025 5:10pm Robin peña II MD completed [facility] [address] [place] [address] XRay Report Signed Patient: Dave Lugo MR#: [id number] : 1950 Acct:[id number] Age/Sex: 75 / M ADM Date: 5 Loc: [facility] Room: Type: [facility] Attending Dr: Alex Reeves II, MD Copies to: Alex Reeves MD~ Ordering Provider: Alex Reeves MD Date of Service: 05/11/25 XR/XR pelvis 1-2V: M25.562 - Pain in left knee XR pelvis 1-2V 05/11/2025 12:04 PM SIGNS AND SYMPTOMS: Left knee pain PROTOCOL: Frontal radiograph of the pelvis COMPARISON: None FINDINGS: The bones are in anatomic alignment. There is narrowing of the joint spaces of the hips. Degenerative changes are noted in the sacroiliac joints. There is posterior fusion hardware in the lumbar spine. No fracture or dislocation. Vascular calcifications are present in the soft tissues. XR/XR pelvis 1-2V IMPRESSION: No fracture or dislocation. Degenerative changes are noted in the sacroiliac joints and hips. Impression dictated by: Robin Hernandez M.D. 05/11/2025 5:10 PM Dictation Location: [place] [address] Transcribed By: [facility] 05/11/251709 Dictated By: Robin Hernandez II, MD 05/11/251709 Signed By: <Electronically signed by Robin Hernandez II, MD in OV> 05/11/251709 Vital Signs Vital Reading Result Reference Range Collection Date/Time Height 64 [in_i] April 28, 2025 12:01pm Weight 72.12 kg April 28, 2025 12:01pm Body Temperature 98.2 [degF] 97.6-99.0 April 28, 2025 12:01pm Heart Rate 67 /min 60-100 April 28, 2025 12:01pm Respiratory rate 16 /min 12-April 28, 2025 12:01pm Oxygen saturation by Pulse oximetry 97 % 95-100 April 28, 2025 12:0 1pm BP Systolic 122 mm[Hg] 100-140 April 28, 2025 12:01pm BP Diastolic 68 mm[Hg] 60-100 April 28, 2025 12:01pm BMI (Body Mass Index) 27.3 kg/m2 April 062024 12:01pm Height 64 [in_i] May 11 12:07pm Weight 71.21 kg May 11 12:07pm BP Systolic 130 mm[Hg] 100-140 May 11 12:07pm BP Diastolic 78 mm[Hg] 60-100 May 11 12:07pm BMI (Body Mass Index) 26.9 kg/m2 May 11, 2025 12:07pm Height 64 [in_i] May 24 1:57pm Weight 74.16 kg May 24 1:57pm Body Temperature 98.1 [degF] 97.6-99.0 May 1:57pm Heart Rate 72 /min 60-100 May 24 1:57pm Oxygen saturation by Pulse oximetry 98 % 95-100 May 24, 2025 1: 57pm BP Systolic 86 mm[Hg] 100-140 May 24 2:23pm BP Diastolic 64 mm[Hg] 60-100 May 24 2:23pm BMI (Body Mass Index) 28.0 kg/m2 May 24, 2025 1:57pm Advance Directives Advance Directive Response Recorded Date/ Time Advance Directives No August 12:39pm Insurance Providers Guarantor Dave Lugo Address [address] [place] [phone] Contact Info. Home Phone: Payer Policy Id Subscriber's Name Subscriber Id Effectiv e Date Expiration Date Medicare [id number] Dave Lugo [id number] Aena [facility] [id number] Dave Lugo [id number] 2024 Encounters Encounter Location(s) Arrival/Admit Date Discharge/Depart Date Provider(s) Departed Clinical -Lab [facility] March 09, 2025 9:04am March 09, 2025 9:05am Bronwyn Adorno DO Departed Physician/Prov ider Office Visit -[facility] April 28, 2025 11:50am April 28, 2025 1:45pm Fabiola Mirza EXPERIMENTAL DISPLAY BUILDER Departed Clinical -[facility] April 28, 2025 12:55pm April 28, 2025 12:56pm Fabiola Mirza EXPERIMENTAL DISPLAY BUILDER Departed Clinical -[facility] May 11, 2025 9:04am May 11, 2025 9:05am Fabiola Rider MD Departed Physician/Prov ider Office Visit -[facility] May 11, 2025 11:29am May 11, 2025 12:28pm Fabiola Rider MD Departed Physician/Prov ider Office Visit -[facility] May 24, 2025 1:25pm May 24, 2025 2:25pm Bronwyn Adorno DO Recent Diagnosis Onset Date Admit Date MCL sprain of left knee Unknown April 11:50am MCL sprain of left knee Unknown May 112024 11:29am Anemia of renal disease Unknown May 062024 1:25pm CAD (coronary artery disease) Unknown Au 2024 1:25pm Chronic kidney disease, stage IV (severe) Unknow n May 24, 2025 1:25pm Chronic pancreatitis Unknown May 1:25pm HTN (hypertension) Unknown May 24, 2025 1:25pm Hyperlipemia Unknown May 24 1:25pm Hypertensive chronic kidney disease with stage 1 through stage 4 chronic ki Unknown May 24, 2025 1:25pm Lumbar stenosis with neurogenic claudication Unk nown May 24, 2025 1:25pm MCL sprain of left knee Unknown May 062024 1:25pm Medicare annual wellness visit, subsequent Unkno wn May 24, 2025 1:25pm Type 2 diabetes mellitus wit h diabetic chronic kidney disease Unknown May 24, 2025 1:25pm Assessments Diagnosis Onset Date Resolution Status Admit Date MCL sprain of left knee acute J gallo 2024 11:50am MCL sprain of left knee acute A ugust 2024 11:29am Anemia of renal disease acute A ugust 2024 1:25pm CAD (coronary artery disease) acute May 24, 2025 1:25pm Chronic kidney disease, stag e IV (severe) acute May 24 1:25pm Chronic pancreatitis acute Augu st 2024 1:25pm HTN (hypertension) acute May 24, 2025 1:25pm Hyperlipemia acute May 24, 2025 1:25pm Hypertensive chronic kidney disease with stage 1 through stage 4 chronic ki acute May 24, 2025 1:25pm Lumbar stenosis with neuroge abdoulaye claudication acute May 24 1:25pm MCL sprain of left knee acute A ugust 2024 1:25pm Medicare annual wellness vis it, subsequent acute May 24 1:25pm Type 2 diabetes mellitus wit h diabetic chronic kidney disease acute May 24, 2025 1:25pm Plan of Treatment Author Lizette Alanis [facility] Authored April 28, 2025 3:46 pm X ray negative for acute fin dings-mild degenerative changes, joint effusion present. Exam consistent with MCL sprain. Patient placed in a knee immobilizer and sent a referral to ortho - as cannot exclude possibility of tear and patient is in considerable discomfort. Patient to use ice as needed. Elevate leg as much as possible. Refrain from strenuous activity. Follow up with ortho as soon as possible. Patient with allergy to opiates, chronic kidney disease so he cannot take NSAIDs. Will use Tylenol. Future Tests Future scheduled test information is unavailable Pending Tests Test Name Ordered Date Scheduled Date XR knee LT 4V* April 28, 2025 12:29pm Future Visits Future appointment information is unavailable Referrals to Other Providers Referral information is unavailable Future Procedures Future procedure information is unavailable Future Medications Future medication information is unavailable Patient Instructions Patient instructions are unavailable
--- OUTSIDE RECORDS SUMMARY | 2025-06-07 09:21 | XMS_ITS | Encounter Summary ---
Author Organization [facility] Address [address] [place] [address] Phone Care Team Providers Care Electric Stove Mechanic Name Role Phone Bronwyn Adorno DO Primary Care Provider [phone] Encounter Details Date Type Department Care Team (Late st Contact Info) Description 10/21/2019 Orders Only [facility] [address] [place] [address] Conversion, Onbase Social History Tobacco Use Types Packs/Day Years Used Date Smoking Tobacco: Never Assessed Sex and Gender Information Value Date Recorded Sex Assigned at Not on file Legal Sex Male 8:45 AM EST Gender Identity Not on file Sexual Orientation Not on file documented as of this encounter Plan of Treatment Upcoming Encounters Date Type Department Care Team (Late st Contact Info) Description 06/30/2025 9:40 AM EDT Office Visit [facility] [address] [facility] [address] [place] [phone] Gabriela Alamo MD [address] [facility] 2, [place] [address] [place] [address] [phone] Scheduled Orders Name Type Priority Associated Diagnoses Orde r Schedule OUTSIDE LAB SCAN Lab Ordered: 10/21/2019 documented as of this encounter Visit Diagnoses Not on filedocumented in this encounter Care Teams Electric Stove Mechanic Relationship Specialty Start Date End Date Bronwyn Adorno DO PCP - General 10/06/99 documented as of this encounter
--- OUTSIDE RECORDS SUMMARY | 2025-06-07 09:21 | XMS_ITS | Encounter Summary ---
Author Organization [facility] Address [address] [place] [address] Phone Care Team Providers Care Communications Professor Name Role Phone Bronwyn Adrono DO Primary Care Provider [phone] Encounter Details Date Type Department Care Team (Late st Contact Info) Description 09/15/2020 Orders Only [facility] [address] [place] [address] Conversion, Onbase Social History Tobacco Use Types [...] Description 06/30/2025 9:40 AM EDT Office Visit [facility] [address] [facility] [address] [place] [phone] Gabriela Alamo MD [address] [facility] 2, [place] [address] [place] [address] [phone] Scheduled Orders Name Type Priority Associated Diagnoses Orde r Schedule OUTSIDE LAB SCAN Lab Ordered: 09/15/2020 documented as of this encounter Visit Diagnoses Not on filedocumented in this encounter Care Teams Communications Professor Relationship Specialty Start Date End Date Bronwyn Adorno DO PCP - General 10/06/99 documented as of this encounter
--- OUTSIDE RECORDS SUMMARY | 2025-06-07 09:21 | XMS_ITS | Clinical Summary ---
Author Organization [facility] Address [address] [place] [address] Care Team Providers Care Cash Applications Representative Name Role Phone Bronwyn Adorno DO Primary Care Provider Allergies Active Allergy Reactions Criticality Noted Date Comments Wan Inhibitors 09/24/2023 Other Reaction(s): Other Renal insuffiency Acetaminophen 04/26/2024 Other Reaction(s): swelling of throat Amlodipine Angioedema,Swelling High 09/24/2023 Other Reaction(s): Edema Aspirin Unknown 10/31/2015 Oxycodone-Acetaminophen Unknown 10/31/2015 Medications aspirin 81 MG EC tablet Take 81 mg by mouth 1 (one) time each day at the same time. Active atorvastatin (Lipitor) 20 MG tablet Take 20 mg by mouth at bedtime. Active carvedilol (Coreg) 12.5 MG tablet Take 12.5 mg by mouth every 12 (twelve) hours. Active carvedilol (Coreg) 25 MG tablet Take 25 mg by mouth in the morning and 25 mg in the evening. Take with meals. 3 Active clindamycin (Cleocin) 150 MG capsule Take 150 mg by mouth in the morning and 150 mg in the evening and 150 mg before bedtime. 2 Active cyclobenzaprine (Flexeril) 10 MG tablet Take 10 mg by mouth as needed at bedtime. Active ferrous sulfate 325 (65 Fe) MG tablet Take 1 tablet by mouth in the morning. Active furosemide (Lasix) 40 MG tablet Take 40 mg by mouth in the morning. 3 Active hydrALAZINE (Apresoline) 50 MG tablet Take 50 mg by mouth in the morning and 50 mg before bedtime. Active HYDROcodone-acet aminophen ([place]) 5-325 MG tablet Take 1 tablet by mouth every 6 (six) hours if needed. 3 Active insulin glargine (Lantus) 100 UNIT/ML injection Inject under the skin. Active Lantus SoloStar 100 UNIT/ML pen Inject under the skin Daily. 3 Active BD Pen Needle Rachelle 2nd Gen 32G X 4 MM misc Inject under the skin if needed. 3 Active isosorbide mononitrate ER (Imdur) 30 MG 24 hr tablet Take 30 mg by mouth in the morning. Active lidocaine (Lidoderm) 5 % patch Apply 1 patch topically in the morning. 3 Active metFORMIN (Glucophage) 500 MG tablet Take 500 mg by mouth in the morning and 500 mg before bedtime. Active multivitamin-iro g-mzancbee-vxvyh acid (Centrum Silver, geriatric,) tablet Take 1 tablet by mouth in the morning. Active nitroglycerin (Nitrostat) 0.[address] 0.4 mg under the tongue every 5 (five) minutes if needed. Active Januvia 100 MG tablet Take 100 mg by mouth in the morning. Active baclofen (Lioresal) 10 MG tablet Take 5 mg by mouth as needed at bedtime 4 Active pantoprazole (ProtoNix) 40 MG EC tablet Daily 4 Active Farxiga 5 MG Take 5 mg by mouth Daily 3 Active cetirizine (ZyrTEC) 10 MG tablet Take 1 tablet by mouth in the morning and 1 tablet before bedtime. 4 Active cyanocobalamin (Vitamin B-12) 1000 MCG tablet Take 1,000 mcg by mouth in the morning. Active cyanocobalamin (Vitamin B-12) 1000 MCG tablet Take 1 tablet by mouth Daily Active gabapentin (Neurontin) 300 MG capsule Take 300 mg by mouth in the morning and 300 mg in the evening. 4 Active glipiZIDE (Glucotrol) 5 MG tablet Take 5 mg by mouth Daily 4 Active Multiple Vitamin (Multi Vitamin Daily) tablet Take 1 tablet by mouth in the morning. Active nabumetone (Relafen) 750 MG tablet Take 750 mg by mouth 2 (two) times a day as needed Active Active Problems Problem Noted Date Diagnosed Date Multiple thyroid nodules 06/23/2023 Nontoxic single thyroid nodule 06/23/2023 Resolved Problems Problem Noted Date Diagnosed Date Resolved Date Abnormal thyroid scan 06/23/20242023 Accelerated hypertension 06/23/2024 Hypertensive emergency 06/23/202406/23 Acute bronchitis 06/23/2024 06/23/2024 Acute neck pain 06/23/2024 06/23/2024 Acute renal failure 06/23/2024 06/23/20 24 Anemia of renal disease 06/23/202406/06 Arm paresthesia, left 06/23/20242023 Abdominal pain 06/23/2024 06/23/2024 Acute flank pain 06/23/2024 06/23/2024 Back pain 06/23/2024 06/23/2024 Bilateral edema of lower extremity 06/23/2024 06/23/2024 Cellulitis, face 06/23/2024 06/23/2024 Chronic pancreatitis 06/23/2024 024 Diabetes 06/23/2024 06/23/2024 Hypoglycemia 06/23/2024 06/23/2024 Diabetes mellitus with hyperglycemia 06/23/2024 06/23/2024 Duodenitis 06/23/2024 06/23/2024 Dyslipidemia 06/23/2024 06/23/2024 Elevated troponin 06/23/2024 06/23/2024 Epigastric pain 06/23/2024 06/23/2024 Fall 06/23/2024 06/23/2024 Fracture of fifth metacarpal bone of right hand 06/23/2024 06/23/2024 Heart disease 06/23/2024 06/23/2024 High blood pressure 06/23/2024 06/23/20 24 Leg weakness, bilateral 06/23/202406/06 Dizziness 06/23/2024 06/23/2024 Light-headed 06/23/2024 06/23/2024 Medicare annual wellness visit, subsequent 06/23/2024 06/23/2024 Acute angina 06/23/2024 06/23/2024 Nausea 06/23/2024 06/23/2024 Obesity 06/23/2024 06/23/2024 Pain, dental 06/23/2024 06/23/2024 Perinephritis 06/23/2024 06/23/2024 Proteinuria 06/23/2024 06/23/2024 Pyelonephritis 06/23/2024 06/23/2024 Right knee sprain 06/23/2024 06/23/2024 Secondary hyperparathyroidism 06/23/2024 06/23/2024 Shingles 06/23/2024 06/23/2024 Spondylolisthesis, lumbar region 06/23/2024 06/23/2024 Stented coronary artery 06/23/202406/06 Swelling of left lower extremity 06/23/2024 06/23/2024 Stage 3 chronic kidney disease 06/23/2024 06/23/2024 CRI (chronic renal insufficiency) 06/23/2024 06/23/2024 Hypertensive chronic kidney disease with stage 1 through stage 4 chronic kidney disease, or unspecified chronic kidney disease 06/23/2024 06/23/2024 Abnormal ECG 05/26/2024 06/23/2024 Stenosis of cervical spine with myelopathy 05/25/2024 06/23/2024 Paraparesis 05/25/2024 06/23/2024 Pain in right lower leg 05/24/202406/06 Neurogenic pain of right lower extremity 05/23/2024 06/23/2024 WAN inhibitor intolerance 04/29/2024 Overweight with body mass in dex (BMI) of 27 to 27.9 in adult 10/16/2023 06/23/2024 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of three affiliated co ronary artery of three affiliated heart without angina pectoris 09/24/2023 Current smoker on some days 09/24/2023 06/23/2024 Essential hypertension 09/24/202306/23 History of KS (myocardial infarction) 09/24/2023 06/23/2024 Hyperlipidemia 09/24/2023 06/23/2024 S/P PTCA (percutaneous trans luminal coronary angioplasty) 09/24/2023 06/23/2024 Lumbar stenosis with neurogenic claudication 6 06/23/2024 S/P lumbar discectomy 10/31/20152023 Immunizations Immunization Administration Dates Next Due Influenza, High Dose Seasona l, Preservative Free 06/14/2019,06/19/2018,05/14/2017,05/23 Influenza, High-dose Seasona l, Quadrivalent, Preservative Free 05/21/2023,06/26/2022,06/14/2020 Influenza, Seasonal, Quadriv alent, Adjuvanted 06/08/2021 Influenza, seasonal, injectable 06/18/2021,06/27 Pneumococcal Conjugate PCV 13 06/21/2019 Pneumococcal Conjugate PCV 20 02/28/2023 Pneumococcal Polysaccharide PPSV23 07/06/2017, SARS-COV-2 (COVID-19) vaccin e, mRNA, spike protein, LNP, PF, 50 mcg/0.5 mL 07/09/2023 SARS-COV-2 (COVID-19) vaccin e, mRNA, spike protein, LNP, bivalent, PF 07/16/2022 Tdap 02/28/2023 Zoster, Recombinant 08/19/2020,06/14/2020 Zoster, live 08/05/2017 Social History Tobacco Use Types Packs/Day Years Used Date Smoking Tobacco: Unknown Tobacco Cessation:Counseling Given: Not Answered Alcohol Use Standard Drinks/Week Comments Not Currently 0 (1 standard drink = 0.6 oz pur e alcohol) Sex and Gender Information Value Date Recorded Sex Assigned at Not on file Legal Sex Male 7:01 PM EDT Gender Identity Not on file Sexual Orientation Not on file Last Filed Vital Signs Vital Sign Reading Time Taken Comments Blood Pressure - - Pulse - - Temperature - - Respiratory Rate - - Oxygen Saturation - - Inhaled Oxygen Concentration - - Weight 77.1 kg (170 lb) 06/23/2024 12:48 PM EDT Height 170.2 cm (5' 7 ) 06/23/2024 12:48 PM EDT Body Mass Index 26.63 06/23/2024 12:48 PM EDT Plan of Treatment Health Maintenance Due Date Last Done Comments CT Colonography 1950 Colonoscopy 1950 Colorectal Cancer Screening 1950 FIT-DNA 1950 FIT 1950 FOBT 1950 Sigmoidoscopy 1950 Influenza Vaccine (#1) 2025 3, 06/26/2022, 06/18/2021, Additional history exists Pneumococcal Vaccine: 65+ Years Completed 02/28/2023, 06/21/2019, 07/06/2017, Additional history exists Insurance [employer] Care Teams Cash Applications Representative Relationship Specialty Start Date End Date Bronwyn Adorno DO PCP - General Family Medicine 06/23/23
--- OUTSIDE RECORDS SUMMARY | 2025-06-07 09:21 | XMS_ITS | Encounter Summary ---
Author Organization [facility] Address [address] [place] [address] Care Team Providers Care Tractor Mechanic Apprentice Name Role Phone Bronwyn Adorno DO Primary Care Provider [phone] Encounter Details Date Type Department Care Team (Late st Contact Info) Description 06/24/2023 Abstract [facility] [address] [place] [address] Jose Badillo DO [address] [place] [address] Social History Tobacco Use Types Packs/Day Years Used Date Smoking Tobacco: Unknown Alcohol Use Standard Drinks/Week Comments Not Currently 0 (1 standard drink = 0.6 oz pur e alcohol) Sex and Gender Information Value Date Recorded Sex Assigned at Not on file Legal Sex Male 7:01 PM EDT Gender Identity Not on file Sexual Orientation Not on file documented as of this encounter Plan of Treatment Not on file documented as of this encounter Visit Diagnoses Not on filedocumented in this encounter Care Teams Tractor Mechanic Apprentice Relationship Specialty Start Date End Date Bronwyn Adorno DO PCP - General Family Medicine 06/23/23 documented as of this encounter
--- OUTSIDE RECORDS SUMMARY | 2025-06-07 09:21 | XMS_ITS | Encounter Summary ---
Author Organization [facility] Address [address] [place] [address] Phone Care Team Providers Care Children'S Literature Professor Name Role Phone Bronwyn Adorno DO Primary Care Provider +1- [phone] Encounter Details Date Type Department Care Team (Late st Contact Info) Description 05/04/2020 Orders Only [facility] [address] [place] [address] Conversion, Onbase Social History Tobacco Use Types [...] Description 06/30/2025 9:40 AM EDT Office Visit [facility] 703 [facility] [address] [place] [phone] Gabriela Alamo MD [address] [facility] 2, [address] [place] [phone] Scheduled Orders Name Type Priority Associated Diagnoses Orde r Schedule OUTSIDE LAB SCAN Lab Ordered: 05/04/2020 documented as of this encounter Visit Diagnoses Not on filedocumented in this encounter Care Teams Children'S Literature Professor Relationship Specialty Start Date End Date Bronwyn Adorno DO PCP - General 10/06/99 documented as of this encounter
--- OUTSIDE RECORDS SUMMARY | 2025-06-07 09:21 | XMS_ITS | Encounter Summary ---
Author Organization [facility] Address [address] [place] [address] Phone Care Team Providers Care Radiation Oncology Therapist Name Role Phone Bronwyn Adorno DO Primary Care Provider +1- [phone] Encounter Details Date Type Department Care Team (Late st Contact Info) Description 12/14/2020 Orders Only [facility] [address] [place] [address] Conversion, Onbase Social History Tobacco Use Types [...] Description 06/30/2025 9:40 AM EDT Office Visit [facility] [address] [phone] Gabriela Alamo MD 703 [facility] [address], [address] [place] [phone] Scheduled Orders Name Type Priority Associated Diagnoses Orde r Schedule OUTSIDE LAB SCAN Lab Ordered: 12/14/2020 documented as of this encounter Visit Diagnoses Not on filedocumented in this encounter Care Teams Radiation Oncology Therapist Relationship Specialty Start Date End Date Bronwyn Adorno DO PCP - General 10/06/99 documented as of this encounter
--- OUTSIDE RECORDS SUMMARY | 2025-06-07 09:21 | XMS_ITS | Encounter Summary ---
Author Organization [facility] Address [address] [place] [address] Phone Care Team Providers Care Tank House Operator Helper Name Role Phone Bronwyn Adorno DO Primary Care Provider +1- [phone] Encounter Details Date Type Department Care Team (Late st Contact Info) Description 12/09/2020 Orders Only [facility] [address] [place] [address] Conversion, Onbase Social History Tobacco Use Types [...] Description 06/30/2025 9:40 AM EDT Office Visit [facility] [address] [phone] Gabriela Alamo MD 703 [facility] 2, [address] [place] [address] [phone] Scheduled Orders Name Type Priority Associated Diagnoses Orde r Schedule OUTSIDE LAB SCAN Lab Ordered: 12/09/2020 documented as of this encounter Visit Diagnoses Not on filedocumented in this encounter Care Teams Tank House Operator Helper Relationship Specialty Start Date End Date Bronwyn Adorno DO PCP - General 10/06/99 documented as of this encounter
--- OUTSIDE RECORDS SUMMARY | 2025-06-07 09:22 | XMS_ITS | Encounter Summary ---
Author Organization [facility] Address [address] [facility], [address] [place] [address] Care Team Providers Care Ceramic Restorer Name Role Phone Bronwyn Adorno Primary Care Provider + [phone] Reason for Visit * Reason Comments Medication Refill Encounter Details Date Type Department Care Team (Late st Contact Info) Description 10/04/2024 Refill [facility] [address] [place] [address] [address] Floor, [address] [place], [place] [phone] Rafat Murillo MD [facility], [address] [place] [address]. [place], [place] [phone] Medication Refill Social History Tobacco Use Types Packs/Day Years Used Date Smoking Tobacco: Every Day Cigarettes 0.3 11.7 Started: 2013 Smokeless Tobacco: Never Passive Exposure Comments:1/ 2 pack per day Alcohol Use Standard Drinks/Week Comments Never 0 (1 standard drink = 0.6 oz pur e alcohol) [facility] Utilities Answer Date Recorded In the past 12 months has [employer], gas, oil, or water company threatened to shut off services in your home? No 05/24/2024 AUDIT-C Answer Date Recorded Q1: How often do you have a drink containing alcohol? Never 05/24/2024 Q2: How many drinks containi ng alcohol do you have on a typical day when you are drinking? Patient does not drink Q3: How often do you have si x or more drinks on one occasion? Never 05/24/2024 Hunger Vital Sign Answer Date Recorded Within the past 12 months, y ou worried that your food would run out before you got the money to buy more. Sometimes true Within the past 12 months, t he food you bought just didn't last and you didn't have money to get more. Never true PRAPARE - Transportation Answer Date Re corded In the past 12 months, has l ack of transportation kept you from medical appointments or from getting medications? No 05/06 In the past 12 months, has l ack of transportation kept you from meetings, work, or from getting things needed for daily living? No 05/24/2024 Housing Stability Vital Sign Answer Cameron e Recorded In the last 12 months, was t here a time when you were not able to pay the mortgage or rent on time? No 05/24/2024 In the past 12 months, how m any times have you moved where you were living? 1 05/24/2024 At any time in the past 12 m [place], were you homeless or living in a assisted (including now)? No 05/24/2024 Food Insecurity Answer Date Recorded Within the past 12 months, y ou worried that your food would run out before you got the money to buy more. 2 05/24/2024 Within the past 12 months, t he food you bought just didn't last and you didn't have money to get more. 1 05/24/2024 Interpersonal Safety Domain Source: IP Abuse Scr eening Answer Date Recorded Physical abuse Denies 05/24/2024 Verbal abuse Denies 05/24/2024 Emotional abuse Denies 05/24/2024 Financial abuse Denies 05/24/2024 Sexual abuse Denies 05/24/2024 Sex and Gender Information Value Date Recorded Sex Assigned at Male 05/23/2024 6:43 PM EDT Legal Sex Male 5:19 PM EST Gender Identity Male 05/23/2024 6:43 PM EDT Sexual Orientation Straight 05/23/2024 6: 43 PM EDT documented as of this encounter Plan of Treatment Not on file documented as of this encounter Visit Diagnoses Not on filedocumented in this encounter Care Teams Ceramic Restorer Relationship Specialty Start Date End Date Bronwyn Adorno DO [address] [facility] [address] [place] [address] PCP - General 05/24/24 documented as of this encounter
--- OUTSIDE RECORDS SUMMARY | 2025-06-07 09:22 | XMS_ITS | Encounter Summary ---
Author Organization [facility] Address [address] [place] [address] Phone Care Team Providers Care Slasher Machine Operator Name Role Phone Bronwyn Adorno DO Primary Care Provider +1- [phone] Encounter Details Date Type Department Care Team (Late st Contact Info) Description 11/23/2021 Orders Only [facility] [address] [place] [address] Conversion, Onbase Social History Tobacco Use Types [...] Description 06/30/2025 9:40 AM EDT Office Visit [facility] [address] [phone] Gabriela Alamo MD 703 [facility] 2, [address] [place] [address] Scheduled Orders Name Type Priority Associated Diagnoses Orde r Schedule OUTSIDE LAB SCAN Lab Ordered: 11/23/2021 OUTSIDE LAB SCAN Lab Ordered: 11/23/2021 OUTSIDE LAB SCAN Lab Ordered: 11/23/2021 documented as of this encounter Visit Diagnoses Not on filedocumented in this encounter Care Teams Slasher Machine Operator Relationship Specialty Start Date End Date Bronwyn Adorno DO PCP - General 10/06/99 documented as of this encounter
--- OUTSIDE RECORDS SUMMARY | 2025-06-07 09:22 | XMS_ITS | Encounter Summary ---
Author Organization [facility] Address [address] [place] [address] Phone Care Team Providers Care Plant Protection Guard Name Role Phone Bronwyn Adorno DO Primary Care Provider +1- [phone] Encounter Details Date Type Department Care Team (Late st Contact Info) Description 10/04/2022 Orders Only [facility] [address] [place] [address] Conversion, Onbase Social History Tobacco Use Types [...] Description 06/30/2025 9:40 AM EDT Office Visit [facility] [address] [phone] Gabriela Alamo MD 703 [facility] 2, [address] [place] [address] Scheduled Orders Name Type Priority Associated Diagnoses Orde r Schedule OUTSIDE LAB SCAN Lab Ordered: 10/04/2022 documented as of this encounter Visit Diagnoses Not on filedocumented in this encounter Care Teams Plant Protection Guard Relationship Specialty Start Date End Date Bronwyn Adorno DO PCP - General 10/06/99 documented as of this encounter
--- OUTSIDE RECORDS SUMMARY | 2025-06-07 09:22 | XMS_ITS | Clinical Summary ---
Author Organization [employer] [facility] Address [id number] [address] [place] [address] Care Team Providers Care Stretch Machine Operator Name Role Phone KyreeTrishBronwyntoy CADE Primary Care Provider [phone] Social History Tobacco Use Types Packs/Day Years Used Date Smoking Tobacco: Never Assessed Sex and Gender Information Value Date Recorded Sex Assigned at Not on file Legal Sex Male 7:59 AM EDT Gender Identity Not on file Sexual Orientation Not on file Plan of Treatment Health Maintenance Due Date Last Done Comments Depression Screening 1962 Tobacco Screening 1962 Fall Risk Screening 2015 COVID-19 Vaccine (2023-2 5 season) 2025 07/23/2024, 07/09/2023, 07/16/2022, Additional history exists Influenza Vaccine 06/06/2025 07/23/2024, , 06/26/2022, Additional history exists DTaP,Tdap and Td Vaccines (2 - Td or Tdap) 02/28/2033 02/28/2023 Zoster (Shingles) Vaccine Completed 2019, 06/14/2020, 08/05/2017 Medical Devices Not on file Insurance [facility] MEDICARE Care Teams Stretch Machine Operator Relationship Specialty Start Date End Date Bronwyn Adorno DO [address] [place] [address] PCP - General Family Medicine 07/21/24
--- OUTSIDE RECORDS SUMMARY | 2025-06-07 09:22 | XMS_ITS | Encounter Summary ---
Author Organization [facility] Address [address] [place] [address] Phone Care Team Providers Care Impregnator Name Role Phone Bronwyn Adorno DO Primary Care Provider +1- [phone] Encounter Details Date Type Department Care Team (Late st Contact Info) Description 09/08/2023 Scanned Document [facility] [address] [place] [phone] Scanning, Generic Provider Social History Tobacco Use Types Packs/Day Years [...] Description 06/30/2025 9:40 AM EDT Office Visit [facility] [address] [facility] [address] [place] [phone] Gabriela Alamo MD [address] [facility] [address], [address] [place] [address] documented as of this encounter Visit Diagnoses Not on filedocumented in this encounter Care Teams Impregnator Relationship Specialty Start Date End Date Bronwyn Adorno DO PCP - General 10/06/99 documented as of this encounter
--- OUTSIDE RECORDS SUMMARY | 2025-06-07 09:22 | XMS_ITS | Encounter Summary ---
Author Organization [facility] Address [address] [place] [address] Phone Care Team Providers Care Resort Housekeeper Name Role Phone Bronwyn Adorno DO Primary Care Provider +1- [phone] Encounter Details Date Type Department Care Team (Late st Contact Info) Description 10/04/2024 Scanned Document [facility] [address] [place] [phone] Scanning, Generic Provider Social History Tobacco Use Types Packs/Day Years Used Date Smoking Tobacco: Every Day Cigarettes Smokeless Tobacco: Never Alcohol Use Standard Drinks/Week Comments Never 0 [...] Description 06/30/2025 9:40 AM EDT Office Visit [facility] [address] [facility] [address] [place] [address] Gabriela Alamo MD 703 [facility] 2, [address] [place], [place] [phone] documented as of this encounter Visit Diagnoses Not on filedocumented in this encounter Additional Health Concerns Assessment Noted Time A fall risk assessment has been complete d for the patient 10/16/2023 9:03 AM EST documented as of this encounter Care Teams Resort Housekeeper Relationship Specialty Start Date End Date Bronwyn Adorno DO PCP - General 10/06/99 documented as of this encounter
--- OUTSIDE RECORDS SUMMARY | 2025-06-07 09:22 | XMS_ITS | Clinical Summary ---
Author Organization [facility] Address [address], [address] [place] [address] Care Team Providers Care Plastic Cutter Name Role Phone Bronwyn Adorno Primary Care Provider Allergies Active Allergy Reactions Criticality Noted Date Comments Aspirin Anaphylaxis,Swelling High 05/23/2024 Can take ONE a day more than one causes the allergy Amlodipine Angioedema High 05/29/2024 Oxycodone-Acetaminophe n Anaphylaxis High 05/23/2024 Medications vitamin B-12 (CYANOCOBALAMIN) 1000 MCG tablet Take 1 tablet by mouth daily Active insulin glargine (LANTUS) 100 UNIT/ML injection vial Inject 10 Units into the skin 2 times daily Active Multiple Vitamins-Minerals (THERAPEUTIC MULTIVITAMIN-MINE RALS) tablet Take 1 tablet by mouth daily Active aspirin 81 MG chewable tablet Take 1 tablet by mouth daily Active atorvastatin (LIPITOR) 20 MG tablet Take 1 tablet by mouth nightly Active carvedilol (COREG) 25 MG tablet Take 1 tablet by mouth 2 times daily Active cyclobenzaprine (FLEXERIL) 10 MG tablet Take 1 tablet by mouth at bedtime Active ferrous sulfate (IRON 325) 325 (65 Fe) MG tablet Take 1 tablet by mouth daily Active glipiZIDE (GLUCOTROL) 10 MG tablet Take 1 tablet by mouth daily Active isosorbide mononitrate (IMDUR) 30 MG extended release tablet Take 1 tablet by mouth daily Active nitroGLYCERIN (NITROSTAT) 0.[address] 1 tablet under the tongue every 5 minutes as needed for Chest pain up to max of 3 total doses. If no relief after 1 dose, call 911. Active gabapentin (NEURONTIN) 300 MG capsule Take 1 capsule by mouth in the morning and at bedtime for 180 days. 90 capsule 3 4 Active spironolactone (ALDACTONE) 25 MG tablet Take 1 tablet by mouth daily 30 tablet 3 4 Active baclofen (LIORESAL) 10 MG tabletIndications :Lumbar stenosis with neurogenic claudication,Sten osis of cervical spine with myelopathy (HCC),S/P cervical spinal fusion Take 0.5 tablets by mouth nightly as needed (muscle spasms) 15 tablet 4 Active cetirizine (ZYRTEC) 10 MG tablet TAKE 1 TABLET BY MOUTH TWICE A DAY 30 tablet 2 5 Active famotidine (PEPCID) 20 MG tabletIndications :Gastroesophageal reflux disease, unspecified whether esophagitis present TAKE 1 TABLET BY MOUTH EVERY DAY 90 tablet 1 5 Active hydrALAZINE (APRESOLINE) 100 MG tabletIndications :Primary hypertension TAKE 1 TABLET BY MOUTH EVERY 8 HOURS 270 tablet 5 Active Active Problems Problem Noted Date Diagnosed Date Coronary artery disease invo lving [place] coronary artery of [place] heart without angina pectoris 05/26/2024 Abnormal ECG 05/26/2024 Lumbar stenosis with neurogenic claudication Stenosis of cervical spine with myelopathy 05/25 Paraparesis 05/25/2024 Pain in right lower leg 05/24/2024 Neurogenic pain of right lower extremity 024 Encounters Date Type Department Care Team Description 03/31/2025 Refill [facility] [address], [address] [place] [address] Yazan Rainey MD Medication Refill from Last 3 Months Social History Tobacco Use Types Packs/Day Years Used Date Smoking Tobacco: Every Day Cigarettes 0.3 11.7 Started: 2013 Smokeless Tobacco: Never Passive Exposure Comments:1/ 2 pack per day Alcohol Use Standard Drinks/Week Comments Never 0 (1 standard drink = 0.6 oz pur e alcohol) [facility] Utilities Answer Date Recorded In the past 12 months has th e electric, gas, oil, or water company threatened to [...] any time in the past 12 m [facility], were you homeless or living in a senior living (including now)? No 05/24/2024 Food Insecurity Answer [...] Orientation Straight 05/23/2024 6: 43 PM EDT Last Filed Vital Signs Vital Sign Reading Time Taken Comments Blood Pressure 156/71 09/20/2024 9:44 AM EST Pulse 76 09/20/2024 9:44 AM EST Temperature 36.8 C (98.3 F) 07/26/2024 3:18 PM EDT Respiratory Rate 10 06/05/2024 8:10 AM EDT Oxygen Saturation 99% 06/05/2024 8:10 AM EDT Inhaled Oxygen Concentration - - Weight 78 kg (172 lb) 09/20/2024 9:44 AM EST Height 165.1 cm (5' 5 ) 09/20/2024 9:44 AM EST Body Mass Index 28.62 09/20/2024 9:44 AM EST Plan of Treatment Health Maintenance Due Date Last Done Comments Lipids 1960 Depression Screen 1962 Hepatitis C screen 1968 Colonoscopy 1995 Colorectal Cancer Screen 1995 FIT/FOBT: Average risk 1995 Fecal-DNA (Cologuard): Average risk 1995 Sigmoidoscopy/CT colonography 1995 AAA screen 2015 A1C test (Diabetic or Prediabetic) 08/26/2024 05/26/2024 Annual Wellness Visit (Medicare Advantage) 10/06/2024 COVID-19 Vaccine ( season) 2025 07/23/2024, 07/09/2023, 07/16/2022, Additional history exists Respiratory Syncytial Virus (RSV) or age 60 yrs+ (1 - 1-dose 75+ series) 2025 Flu vaccine (#1) 05/06/2025 07/23/2024, , 06/26/2022, Additional history exists DTaP/Tdap/Td vaccine (2 - Td or Tdap) 02/28/2033 02/28/2023 Shingles vaccine Completed 08/19/2020, 06/2020, 08/05/2017 Pneumococcal 50+ years Vaccine Completed 02/28/2023, 06/21/2019, 07/06/2017, Additional history exists GFR test (Diabetes, CKD 3-4, OR last GFR 15-59) Discontinued 06/02/2024, 06/01/2024, 05/31/2024, Additional history exists Hepatitis A vaccine Aged Out No longe r eligible based on patient's age to complete this topic Hepatitis B vaccine Aged Out No longe r eligible based on patient's age to complete this topic Hib vaccine Aged Out No longer eligi ble based on patient's age to complete this topic Meningococcal (ACWY) vaccine Aged Out No longer eligible based on patient's age to complete this topic Meningococcal B vaccine Aged Out No l onger eligible based on patient's age to complete this topic Polio vaccine Aged Out No longer elig ible based on patient's age to complete this topic Medical Devices Implanted Type Area Certified Medical Aide Device Identifier Shelf Expiration Date Model / Serial / Lot Impl Spine Luther Symphony 4.0mm 70mm - [id number] Implanted:Qt y: 2 on 05/27/2024 by Vicki Bridges DO at [facility] Spine N/A: Spine Lumbar JNJ: [facility]-P MM [id number] / / Stent:Coker ry Stent:Mikhail hyde N/A: Coronary Description:Stents x 2 Screw Spnl Multaxl 6.5x50 Mm For 4.75 Mm Luther Ats - [id number] Implanted:Qt y: 4 on 05/27/2024 by Vicki Bridges DO at [facility] N/A: Spine Lumbar [employer] SOFAMOR DANEK-WD [id number] / / Luther Spnl L70mm Dia4.75mm Co Chrom Prebent Cdh Solera - [id number] Implanted:Qt y: 1 on 05/27/2024 by Vicki Bridges DO at [facility] N/A: Spine Lumbar [employer] SOFAMOR DANEK-WD [id number] / / Luther Spnl L60mm Dia4.75mm Co Chrom Prebent Cdh Solera - [id number] Implanted:Qt y: 1 on 05/27/2024 by Vicki Bridges DO at [facility] N/A: Spine Lumbar [employer] SOFAMOR DANEK-WD [id number] / / Set Scr Spnl Dia4.75mm Ti Brk Off Cdh Solera - [id number] Implanted:Qt y: 6 on 05/27/2024 by Vicki Bridges DO at [facility] N/A: Spine Lumbar [employer] SOFAMOR DANEK-WD [id number] / / Screw Spnl 3.5x14mm Symphony - [id number] Implanted:Qt y: 10 on 05/27/2024 by Vicki Bridges DO at [facility] N/A: Spine Lumbar JNJ DEPUY SYNTHES SPINE-WD [id number] / / Screw Spinal F/Symphony Oct System - [id number] Implanted:Qt y: 10 on 05/27/2024 by Vicki Bridges DO at [facility] N/A: Spine Lumbar JNJ DEPUY SYNTHES SPINE-WD [id number] / / Kit Bne Grft Xsm 1.4cc Rhbmp-2 Absrb Cllgn Spng Infuse - [id number] Implanted:Qt y: 1 on 05/27/2024 by Vicki Bridges DO at [facility] N/A: Spine Lumbar [employer] SPINALGRAFT TECH-WD [id number] 11/05/2025 [id number] / / [id number] Kit Bne Grft Xsm 1.4cc Rhbmp-2 Absrb Cllgn Spng Infuse - [id number] Implanted:Qt y: 1 on 05/27/2024 by Vicki Bridges DO at [facility] N/A: Spine Lumbar [employer] SPINALGRAFT TECH-WD [id number] 11/05/2025 [id number] / / [id number] Spacer [id number] 12w 35mm X 11mm 10 Dg Ti - [id number] Implanted:Qt y: 1 on 05/27/2024 by Vicki Bridges DO at [facility] N/A: Spine Lumbar [employer] SOFAMOR DANEK-WD 08/13/2031 [id number] / / [id number] Graft Bne Sub [id number] Spnl Deformity Magnifuse Sc - [id number] Implanted:Qt y: 1 on 05/27/2024 by Vicki Bridges DO at [facility] N/A: Epidural Space [employer] SPINALGRAFT TECH-WD [id number] / / Screw Spnl Multaxl 6.5x45 Mm For 4.75 Mm Luther Ats - [id number] Implanted:Qt y: 2 on 05/27/2024 by Vicki Bridges DO at [facility] N/A: Spine Lumbar [employer] GLOG-WD [id number] / / Explanted Type Area Certified Medical Aide Device Identifier Shelf Expiration Date Model / Serial / Lot Other Explanted:Qty: 4 on 05/27/2024 at [facility] Other N/A: Spine Lumbar Description:Lumbar spinal ca ge Screws: L L5 5.5X50 ; R L4 5.5X50; L L4 5.5X50; R L5 5.5X50 RODS; 2 SET SCREWS Procedures Procedure Name Priority Date/Time Associated Diagnosis Comments BASIC METABOLIC PANEL Routine 06/02/2024 7:15 AM EDT HEMOGLOBIN A1C Routine 05/26/2024 5:53 AM EDT from Last 3 Months or Most Recently Relevant to Health Maintenance Results * (ABNORMAL) Basic Metabolic Panel (06/02/2024 7:15 AM EDT) Sodium 138 136 - 145 mmol/L 06/02/2024 7:15 AM EDT [facility] Potassium 4.2 3.7 - 5.3 mmol/L 06/02/2024 7:15 AM EDT [facility] Chloride 108(H) 98 - 107 mmol/L 06/02/2024 7:15 AM EDT [facility] CO2 25 20 - 31 mmol/L 06/02/2024 7:15 AM EDT [facility] Anion Gap 5(L) 9 - 16 mmol/L 06/02/2024 7:15 AM EDT [facility] Glucose 134(H) 74 - 99 mg/dL 06/02/2024 7:15 AM EDT [facility] BUN 40(H) 8 - 23 mg/dL 06/02/2024 7:15 AM EDT [facility] Creatinine 2.2(H) 0.70 - 1.20 mg/dL 06/02/2024 7:15 AM EDT [facility] Est, Glom Filt Rate 30(L) >60 mL/min/1. 73m2 06/02/2024 7:15 AM EDT [facility] Comment: These results are not intended for [...] following therapy that affects renal tubular secretion. Calcium 8.0(L) 8.6 - 10.4 mg/dL 06/02/2024 7:15 AM EDT [facility] Blood BLOOD SPECIMEN / Unknown 06/02/2024 7:15 AM EDT 06/02/2024 7:27 AM EDT Solomon Wesley DO CHEMISTRY ORDERABLES Final Resul t [facility] [address] [phone] * (ABNORMAL) Hemoglobin A1C (05/26/2024 5:53 AM EDT) Hemoglobin A1C 7.4(H) 4.0 - 6.0 % 05/26/2024 5:53 AM EDT [facility] Estimated Avg Glucose 166 mg/dL 05/26/2024 5:53 AM EDT [facility] Comment: The ADA and AACC recommend providing the estimated average glucose result to permit better patient understanding of their HBA1c result. 05/26/2024 5:53 AM EDT 05/26/2024 6:09 AM EDT Jaime Ortiz MD CHEMISTRY ORDERABLES Final Resu lt [facility] [address] [place] [id number], [facility] [phone] from Last 3 Months or Most Recently Relevant to Health Maintenance Insurance [facility] MEDICARE Advance Directives * Full Code (Latest Code Status on File) Date Activated Date Inactivated Comments 05/23/2024 10:26 PM 06/05/2024 2:14 PM Healthcare Agents on File Name Relationship Healthcare Agent Relationship Communication Elena Urbano Child Primary Decision Maker Care Teams Plastic Cutter Relationship Specialty Start Date End Date Bronwyn Adorno DO [address] [facility] [address] [place] [address] PCP - General 05/24/24
--- OUTSIDE RECORDS SUMMARY | 2025-06-07 09:22 | XMS_ITS | Encounter Summary ---
Author Organization [facility] Address [address] [place] [address] Phone Care Team Providers Care Theater Manager Name Role Phone Bronwyn Adorno DO Primary Care Provider +1- [phone] Encounter Details Date Type Department Care Team (Late st Contact Info) Description 10/06/2024 Scanned Document [facility] [address] [place] [phone] Scanning, Generic Provider Social History Tobacco Use [...] Description 06/30/2025 9:40 AM EDT Office Visit [facility] [address] [facility] [address] [place] [address] Gabriela Alamo MD [address] [facility] [address] [place], [place] [phone] documented as of this encounter Visit Diagnoses Not on filedocumented in this encounter Additional Health Concerns Assessment Noted Time A fall risk assessment has been complete d for the patient 10/16/2023 9:03 AM EST documented as of this encounter Care Teams Theater Manager Relationship Specialty Start Date End Date Bronwyn Adorno DO PCP - General 10/06/99 documented as of this encounter
--- OUTSIDE RECORDS SUMMARY | 2025-06-07 09:22 | XMS_ITS | Encounter Summary ---
Author Organization [facility] Address [address] [place] [address] Phone Care Team Providers Care Delivery Professional Name Role Phone Bronwyn Adorno DO Primary Care Provider +1- [phone] Encounter Details Date Type Department Care Team (Late st Contact Info) Description 10/20/2024 Scanned Document [facility] [address] [place] [phone] Scanning, Generic Provider Social History Tobacco Use [...] Description 06/30/2025 9:40 AM EDT Office Visit [facility] [address] [facility] [address] [place] [address] Gabriela Alamo MD [address] [facility] [address] [place], [place] [id number] documented as of this encounter Visit Diagnoses Not on filedocumented in this encounter Additional Health Concerns Assessment Noted Time A fall risk assessment has been complete d for the patient 10/16/2023 9:03 AM EST documented as of this encounter Care Teams Delivery Professional Relationship Specialty Start Date End Date Bronwyn Adorno DO PCP - General 10/06/99 documented as of this encounter
--- OUTSIDE RECORDS SUMMARY | 2025-06-07 09:22 | XMS_ITS | Encounter Summary ---
Author Organization [facility] Address [address] [place] [address] Phone Care Team Providers Care Senior Microsoft Net Developer Name Role Phone Bronwyn Adorno DO Primary Care Provider +1- [phone] Encounter Details Date Type Department Care Team (Late st Contact Info) Description 03/22/2024 Scanned Document [facility] [address] [place] [phone] Scanning, Generic Provider Social History Tobacco Use [...] Office Visit [facility] [address] [facility] [address] [place] [address] Gabriela Alamo MD [address] [facility] [address] [place], [place] [phone] documented as of this encounter Visit Diagnoses Not on filedocumented in this encounter Additional Health Concerns Assessment Noted Time A fall risk assessment has been complete d for the patient 10/16/2023 9:03 AM EST documented as of this encounter Care Teams Senior Microsoft Net Developer Relationship Specialty Start Date End Date Bronwyn Adorno DO PCP - General 10/06/99 documented as of this encounter
--- OUTSIDE RECORDS SUMMARY | 2025-06-07 09:22 | XMS_ITS | Patient Health Record ---
Author Organization [facility] Address [address] [place] [address] Care Team Providers Care Economic Analyst Name Role Phone Ignacio Dempsey Primary Care Provider Reason For Referral No Information Medications Medication SIG (Take, Route, Frequency, Duration) Notes Start Date End Date Status Carisoprodol 350 MG 1 tablet Orally twic e a day (bid) THEN 2 TABLETS AT BEDTIME Active Meperidine HCl 50 mg 2 tablet Orally onc e EVERY AM AND THEN 1 TABLET AT BEDTIME Active HumuLIN N 100 UNIT/ML 30 UNITS Subcutane ous twice a day (bid) Active Insulin Syringe-Needle U-100 31G X 5/16 Active Lisinopril 20 MG 1 tablet Orally Once a day Active Lipitor 20 MG 1 tablet Orally Once a day Active glipiZIDE 10 MG 1 tablet Orally Once a day Active Aspirin 325 mg 325 mg one tab orally daily Active Plan Of Treatment No Information Insurance Providers Payer Name Payer Address Payer Phone Subscriber Number Group Number Insured Name Patient Relationship to Insured Coverage Start Date Coverage End Date MEDICARE CGS 1 [facility] [place] [phone] [phone] [id number] GAGE HENDRIX Self - patient is the insured Medical (General) History Medical History History ICD Code DM II HTN Surgical History Surgery Date(Month/Year) RIB [id number]
--- OUTSIDE RECORDS SUMMARY | 2025-06-07 09:22 | XMS_ITS | Encounter Summary ---
Author Organization [facility] Address [address] [place] [address] Phone Care Team Providers Care Aeronautical Products Sales Engineer Name Role Phone Bronwyn Adorno DO Primary Care Provider +1- [phone] Encounter Details Date Type Department Care Team (Late st Contact Info) Description 09/23/2023 Scanned Document [facility] [address] [place] [phone] Scanning, Generic Provider Social History Tobacco Use [...] Description 06/30/2025 9:40 AM EDT Office Visit [facility] [address] [facility] [address] [place] [phone] Gabriela Alamo MD [address] [facility] [address] [place] [address] documented as of this encounter Visit Diagnoses Not on filedocumented in this encounter Care Teams Aeronautical Products Sales Engineer Relationship Specialty Start Date End Date Bronwyn Adorno DO PCP - General 10/06/99 documented as of this encounter
--- OUTSIDE RECORDS SUMMARY | 2025-06-07 09:22 | XMS_ITS | Clinical Summary ---
Author Organization [facility] Address [address] [place] [address] Phone Care Team Providers Care Oracle Ebs Developer Name Role Phone Bronwyn Adorno Thaddeus CADE Primary Care Provider [phone]- [phone] Allergies Active Allergy Reactions Criticality Noted Date Comments Wan Inhibitors Other 09/24/2023 Renal insuffiency Amlodipine Swelling 09/24/2023 Aspirin Unknown 09/24/2023 Sodium Zirconium Cyclosilicate Constipation 11/18/2024 Oxycodone-Acetaminophen Anaphylaxis High 09/24/2023 Medications cyanocobalamin (Vitamin B-12) 1,000 mcg tablet Take 1 tablet (1,000 mcg) by mouth once daily. Active cyclobenzaprine (Flexeril) 10 mg tablet Take 1 tablet (10 mg) by mouth as needed at bedtime. Active ferrous sulfate, 325 mg ferrous sulfate, tablet Take 1 tablet (325 mg) by mouth once daily. Active Lantus Solostar U-100 Insulin 100 unit/mL (3 mL) pen INJECT 10 UNITS SUBCUTANEOUSLY DAILY 08/11/20 23 Active multivitamin (Daily Multi-Vitamin) tablet Take 1 tablet by mouth once daily. Active aspirin 81 mg EC tabletIndication s:Atheroscleroti c heart disease of [place] coronary artery without angina pectoris TAKE 1 TABLET BY MOUTH EVERY DAY DIRECTED 90 tablet 3 12/29/19 24 Active cloNIDine (Catapres) 0.1 mg tablet Take 1 tablet (0.1 mg) by mouth 2 times a day. 10/08/19 25 Active famotidine (Pepcid) 20 mg tablet Take 1 tablet (20 mg) by mouth once daily. Active ergocalciferol (Vitamin D-2) 1.25 MG (57955 UT) capsule Take 1 capsule (1,250 mcg) by mouth 1 (one) time per week. Active atorvastatin (Lipitor) 20 mg tabletIndication s:Atherosclerosi s of [place] coronary artery of [place] heart without angina pectoris Take 1 tablet (20 mg) by mouth once daily at bedtime. 90 tablet 3 11/18/19 25 Active carvedilol (Coreg) 25 mg tabletIndication s:Atherosclerosi s of [place] coronary artery of [place] heart without angina pectoris Take 1 tablet (25 mg) by mouth 2 times daily (morning and late afternoon). 180 tablet 3 11/18/19 25 026 Active hydrALAZINE (Apresoline) 50 mg tabletIndication s:Atherosclerosi s of [place] coronary artery of [place] heart without angina pectoris,Essenti al hypertension Take 1.5 tablets (75 mg) by mouth 2 times a day. Take with food. 270 tablet 3 11/18/19 25 026 Active isosorbide mononitrate ER (Imdur) 30 mg 24 hr tabletIndication s:Atherosclerosi s of [place] coronary artery of [place] heart without angina pectoris,History of MA (myocardial infarction) Take 1 tablet (30 mg) by mouth once daily. 90 tablet 3 11/18/19 25 Active nitroglycerin (Nitrostat) 0.4 mg SL tabletIndication s:Atherosclerosi s of [place] coronary artery of [place] heart without angina pectoris,History of MA (myocardial infarction) Place 1 tablet (0.4 mg) under the tongue every 5 minutes if needed for chest pain. 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 BMI 26.0-26.9,adult 10/16/2023 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of [place] co ronary artery of [place] heart without angina pectoris 09/24/2023 Current smoker on some days 09/24/2023 Type 2 diabetes mellitus wit h kidney complication, with long-term current use of insulin 09/24/2023 Essential hypertension 09/24/2023 History of MA (myocardial infarction) 09/24/2023 Hyperlipidemia 09/24/2023 S/P PTCA (percutaneous transluminal coronary ang ioplasty) 09/24/2023 Stage 3b chronic kidney disease (Multi) 09/24/20 23 Immunizations Immunization Administration Dates Next Due Influenza, seasonal, injectable 07/06/2024,06/26 Moderna SARS-CoV-2 Vaccination 4,09/13/2021,01/24/2021,12/27 Pneumococcal conjugate vacci ne, 13-valent (PREVNAR 13) 06/21/2019 Pneumococcal polysaccharide vaccine, 23-valent, age 2 years and older (PNEUMOVAX 23) 07/06/2017 Family History Medical History Relation Name Comments Diabetes Brother Pacemaker Mother Diabetes Sister Relation Name Status Comments Brother Mother Sister Social History Tobacco Use Types Packs/Day Years Used Date Smoking Tobacco: Every Day Cigarettes Smokeless Tobacco: Never Tobacco Cessation:Ready to Q uit: Not Asked; Counseling Given: Not Answered Alcohol Use Standard Drinks/Week Comments Never 0 (1 standard drink = 0.6 oz pur e alcohol) Sex and Gender Information Value Date Recorded Sex Assigned at Not on file Legal Sex Male 8:45 AM EST Gender Identity Not on file Sexual Orientation Not on file Last Filed Vital Signs Vital Sign Reading Time Taken Comments Blood Pressure 112/66 11/18/2024 9:10 AM EST Pulse 72 11/18/2024 9:10 AM EST Temperature - - Respiratory Rate - - Oxygen Saturation - - Inhaled Oxygen Concentration - - Weight 72.6 kg (160 lb) 11/18/2024 9:10 AM EST Height 165.1 cm (5' 5 ) 11/18/2024 9:10 AM EST Body Mass Index 26.63 11/18/2024 9:10 AM EST Plan of Treatment Upcoming Encounters Date Type Department Care Team (Late st Contact Info) Description 06/30/2025 9:40 AM EDT Office Visit [facility] [address] [facility] [address] [place] [address] Gabriela Alamo MD [address] [facility] [address] [place] [address] Health Maintenance Due Date Last Done Comments CT Colonography 1950 Colonoscopy 1950 Colorectal Cancer Screening 1950 FIT-DNA (Cologuard) 1950 FIT 1950 Lipid Panel 1950 Medicare Annual Wellness Visit (AWV) 1950 Sigmoidoscopy 1950 MMR Vaccines (1 of 1 - Standard series) 1951 Diabetes: Retinopathy Screening 1960 Hepatitis C Screening 1968 Abdominal Aortic Aneurysm (AAA) Screening 2015 Diabetes: Hemoglobin A1C 08/26/2024 05/26/2024 COVID-19 Vaccine ( season) 2024 07/23/2024, 07/06/2024, 07/09/2023, Additional history exists RSV High Risk: (Elderly (60+) or Population) (1 - 1-dose 75+ series) 2025 Influenza Vaccine (#1) 2025 , 07/06/2024, 05/21/2023, Additional history exists DTaP/Tdap/Td Vaccines (2 - Td or Tdap) 02/28/2033 02/28/2023 Zoster Vaccines Completed 08/19/2020, 06/2020, 08/05/2017 Pneumococcal Vaccine Completed 02/28/2023, 06/21/2019, 07/06/2017, Additional history exists HIB Vaccines Aged Out No longer eligi ble based on patient's age to complete this topic HPV Vaccines Aged Out No longer eligi ble based on patient's age to complete this topic Hepatitis A Vaccines Aged Out No long er eligible based on patient's age to complete this topic Hepatitis B Vaccines Aged Out No long er eligible based on patient's age to complete this topic IPV Vaccines Aged Out No longer eligi ble based on patient's age to complete this topic Meningococcal Vaccine Aged Out No jered cynthia eligible based on patient's age to complete this topic Rotavirus Vaccines Aged Out No longer eligible based on patient's age to complete this topic Insurance [employer] [place] [address] [employer] Care Teams [employer] Ebs Developer Relationship Specialty Start Date End Date Bronwyn Adorno DO PCP - General 10/06/99
--- OUTSIDE RECORDS SUMMARY | 2025-06-07 09:22 | XMS_ITS | Encounter Summary ---
Author Organization [facility] Address [address] [place] [address] Phone Care Team Providers Care Legal Officer Name Role Phone Bronwyn Adorno DO Primary Care Provider +1- [phone] Encounter Details Date Type Department Care Team (Late st Contact Info) Description 09/11/2023 Scanned Document [facility] [address] [place] [id number] Scanning, Generic Provider Social History Tobacco Use [...] Description 06/30/2025 9:40 AM EDT Office Visit [facility] [address] [facility] [address] [place] [phone] Gabriela Alamo MD [address] [facility] [address] [place] [address] documented as of this encounter Visit Diagnoses Not on filedocumented in this encounter Care Teams Legal Officer Relationship Specialty Start Date End Date Bronwyn Adorno DO PCP - General 10/06/99 documented as of this encounter
--- OUTSIDE RECORDS SUMMARY | 2025-06-07 09:22 | XMS_ITS | Encounter Summary ---
Author Organization [facility] Address [address] [place] [address] Phone Care Team Providers Care Historiographer Name Role Phone Bronwyn Adorno DO Primary Care Provider +1- [phone] Encounter Details Date Type Department Care Team (Late st Contact Info) Description 09/16/2020 Orders Only [facility] [address] [place] [address] Conversion, Onbase Social History Tobacco Use Types [...] Description 06/30/2025 9:40 AM EDT Office Visit [facility] [address] [facility] [address] [place] [phone] Gabriela Alamo MD [address] [facility] [address] [place] [phone] Scheduled Orders Name Type Priority Associated Diagnoses Orde r Schedule OUTSIDE LAB SCAN Lab Ordered: 09/16/2020 documented as of this encounter Visit Diagnoses Not on filedocumented in this encounter Care Teams Historiographer Relationship Specialty Start Date End Date Bronwyn Adorno DO PCP - General 10/06/99 documented as of this encounter
--- OUTSIDE RECORDS SUMMARY | 2025-06-07 09:44 | XMS_ITS | CCD ---
Author Organization [facility] Care Team Providers Care Deposit Clerk Name Role Phone BHARATHI COLMENARES Unavailable Unavailable [id number] Unavailable Unavailable August Dumont Unavailable [phone] Unavailable Unavailable Lolita Adorno E Unavailable Schwidar Lolita Unavailable Yohannes Granda Unavailable Schwanmol Lolita Unavailable Clemente Miller Unavailable DO Kyree Lolita E Primary Care Provider DO Kyree Lolita E Attending Provider MD Clemente Miller Attending Provider Rosaline [facility] Joycelyn E Emergency Provider DO Kyree Lolita E Primary Care Provider MD Clemente Miller Attending Provider Rosaline [facility] Joycelyn E Emergency Provider DO Kyree Lolita E Primary Care Provider MD Clemente Miller Attending Provider [phone] VALENTINA Cervantes Other Provider Unavailable VALENTINA Robledo Other Provider Unavailable VALENTINA Santos Other Provider Unavailable VALENTINA Vidal Other Provider Unavailable VALENTINA Hunter Other Provider Unavailable VALENTINA Washington Other Provider Unavailable MD Fercho Guillermo Other Provider Emilia, MD Wu K Other Provider SWEETIE King Daly M Other Provider DO Troy Mendoza Other [...] Provider MD Ronnell Fletcher Other Provider Maliha, NOVELTY CHAIN MAKER-C Lea Grullon Other Provider MD Kamron Small [...] Care Provider MD Gabriela Florian Attending Provider [phone] Florian, Dr. Gabriela Murillo Referring Eleni vailable Florian, Dr. Gabriela Murillo Attending Eleni vailable Florian, Dr. Gabriela Murillo Referring Eleni vailable Florian, Dr. Gabriela Murillo Attending Eleni vailable Lowe, NOVELTY CHAIN MAKER-C Beht Attending Provider DO Kyree Lolita E Attending Provider DO Kyree Lolita E Primary Care Provider [phone] MD Gabriela Florian [facility] Provider [phone] Prieto Santo Unavailable DO Kyree Lolita E Primary Care Provider [phone] MD Prieto Santo Attending Provider DO Kyree Lolita E Primary Care Provider Rosaline [facility] Joycelyn E Emergency Provider [phone] MD Prieto Santo Attending Provider Lyudmila White Unavailable DO Wyatt Chaparro Emergency Provider MD Barbie Osborn Admit Provider MD Barbie Osborn Attending Provider MD Joao Coley Other Provider [phone] DO Govind Jim Other Provider MD Yohannes Granda Other Provider MD Darian Peters Other Provider MD Milo Mena Other Provider [phone] MD Maxx Gonzalez Other Provider Scovanner, FILTERER Yossi M Other Provider MD Kevin Li Other Provider MD Omar Strong Other Provider MD Khushboo Hines Other Provider MD Nette Holden Other Provider MD Mirza Causey Other Provider MD David Mcleod Other Provider MD Tito Martinez Other Provider Ashley, FILTERERParker Bernal Other Provider MD Parrish Mendosa Other Provider MD Martínez Briceño Other Provider MD Sonja Laird Other Provider DO Tej Reynoso Other Provider MD Daly Giraldo Other Provider MD Juan David Bustamante Other Provider [phone] MD Clement Campa Other Provider DO Donta Ochoa Other Provider DO Lolita Adorno E Attending Provider MD Barbie Osborn Referring Provider Margor Lolita CADE Primary Care Prov ider MD Gabriela Florian Attending Provider Nette Holden Unavailable DO Kyree Lolita E Primary Care Provider [phone] MD Gabriela Florian Attending Provider [phone] DO Kyree Lolita E Primary Care Provider [phone] DO Kyree Lolita E Attending Provider RAI BADILLO Attending Unavailable RAI BADILLO Referring Unavailable Kyree CADE, Lolita E Primary Care Provider [phone] Nette Holden MD Attending Provider Schwerer DO, Lolita Primary Care Provider [phone] TAOHannah, KRISTIE W Referring Unavailable SCHWERER, LOLITA Primary Care Unavailable JACKS, KRISTIE W Referring Unavailable SCHWERER, LOLITA Primary Care [...] Attending Provider Ernie Vargas DO Emergency Provider Enriqueta CADENA, Matheus Admit Provider Enriqueta CADENA, Matheus Attending Provider Juan CADENA, Tito Other Provider Nellie Wynne MD Emergency Provider [phone] Nette Holden MD Referring Provider Enriqueta CADENA, Matheus Other Provider Schwerer DO, Lolita Primary Care Provider Schwerer DO, Lolita E Primary Care Provider GABRIELA FLORIAN Attending Unavailable GABRIELA FLORIAN Referring Unavailable SCHWERER, LOLITA E Primary Care Unavailable GABRIELA FLORIAN Attending Unavailable GABRIELA FLORIAN Referring Unavailable SCHWERER, LOLITA E Primary Care Unavailable Schwerer DO, Lolita E Primary Care Provider [phone] Schwerer DO, Lolita E Attending Provider Ernie Vargas DO Emergency Provider Enriqueta CADENA, Matheus Admit Provider Enriqueta CADENA, Matheus Attending Provider [phone] Juan CADENA, Tito Other Provider Nellie Wynne MD Emergency Provider Adina CADENA, Nette Referring Provider Enriqueta CADENA, Matheus Other Provider Schwerer DO, Lolita E Primary Care Provider Schwerer DO, Lolita E Attending Provider Ernie Vargas DO Emergency Provider Enriqueta CADENA, Matheus Admit Provider Enriqueta CADENA, Matheus Attending Provider [phone] Juan CADENA, Tito Other Provider Nellie Wynne MD Emergency Provider Adina CADENA, Nette Referring Provider Enriqueta CADENA, Matheus Other Provider Adina CADENA, Nette Attending Provider Schwerer DO, Lolita E Primary Care Provider Adina CADENA, Nette Attending Provider [phone] Schwerer DO, Lolita E Attending Provider Schwerer DO, Lolita E Primary Care Provider Schwerer DO, Lolita E Attending Provider Lizette Alanis APRN Attending Provider Alex Reeves MD Attending Provider Schwerer, Lolita E Primary Care Unavailable Schwerer, Lolita E Attending Unavailable Schwerer, Lolita E Admitting Unavailable Schwerer, Lolita E Primary Care Unavailable Schwerer, Lolita E Attending Unavailable Schwerer, Lolita E Admitting Unavailable Schwerer, Lolita E Attending Unavailable Schwerer, Lolita E Admitting Unavailable Schwerer, Lolita E Primary Care Unavailable Adina, Nette Admitting Unavailable Adina, Nette Attending Unavailable Schwerer, Lolita E Primary Care Unavailable Schwerer, Lolita E Attending Unavailable Schwerer, Lolita E Admitting Unavailable Schwerer, Lolita E Primary Care Unavailable Lizette Alanis Admitting Unavailable Lizette Alanis Attending Unavailable Schwerer, Lolita E Primary Care Unavailable Reno II, Alex Hicks Admitting Unavailabl e Reno II, Alex M Attending Unavailabl e Schwerer, Lolita E Primary Care Unavailable Adina, Nette Admitting Unavailable Adina, Nette Attending Unavailable Schwerer, Lolita E Primary Care Unavailable Enriqueta, Matheus Admitting Unavailable Enriqueta, Matheus Attending Unavailable Schwerer, Lolita E Primary Care Unavailable Bakhous, Aziz Consulting Unavailable Enriqueta, Matheus Admitting Unavailable Enriqueta, Matheus Attending Unavailable Schwerer, Lolita E Primary Care Unavailable Bakhous, Aziz Consulting Unavailable Schwerer, Lolita E Primary Care Unavailable Schwerer, Lolita E Attending Unavailable Schwerer, Lolita E Admitting Unavailable Schwerer, Lolita E Primary Care Unavailable Enriqueta, Matheus Consulting Unavailable Adina, Nette Referring Unavailable Schwerer, Lolita E Attending Unavailable Schwerer, Lolita E Admitting Unavailable Schwerer DO, Loltia E Primary Care Provider Allergies Allergy Classification Reported Allergen(s) Allergy Type Date of Onset Reaction(s) Facility Acetaminophen (1 source) Acetaminophen Drug Allergy 03-22-20 24 swelling of throat [facility] amLODIPine (1 source) amLODIPine Drug Allergy 03-22-20 24 Edema [facility] Aspirin (1 source) Aspirin Drug Allergy 03-22-20 24 Swelling of Lip/Tongue/Thro at, lips turn blue if takes 2 [facility] Opioid Agonists (1 source) oxyCODONE Drug Allergy 03-22-20 24 Swelling of Lip/Tongue/Thro at, swelling of throat [facility] (20 sources) Acetaminophen / oxyCODONE; Translations: [Percocet TABS] Drug Allergy 09-24-20 23 Anaphylaxis Th[facility] [employer] Other (20 sources) amLODIPine; Translations: [amlodipine] Drug Allergy 09-18-20 22 Swelling, Angioedema [facility] (20 sources) Aspirin; Translations: [Aspirin TABS] Drug Allergy 09-24-20 23 Unknown [employer] Other (20 sources) Aspirin; Translations: [ASPIRIN] Drug Allergy 10-31-19 16 Unknown, Anaphylaxis, Swelling [facility] Comment on above: Pt states, I can ta ke 1 aspirin but anymore than that my lips swell. Pt confirmed that currently taking 81mg PO daily safely. (20 sources) oxyCODONE; Translations: [oxycodone] Drug Allergy 04-25-20 21 Swelling of Lip/Tongue/Thro at, Swelling of Lip/Tongue/Thro at, swelling of throat [facility] Comment on above: Has tolerated hydrom orphone in this hospital (6 sources) Angiotensin Converting Enzyme (Titi) Inhibitors; Translations: [TITI Inhibitors] Allergy to drug (finding) 09-24-20 23 Other [facility] 3 Repository (2 sources) Angiotensin-conv erting enzyme inhibitor agent Propensity to adverse reactions 09-24-20 23 Other [facility] (12 sources) Acetaminophen; Translations: [acetaminophen] Drug Allergy 12-25-19 24 swelling of throat [facility] (6 sources) Acetaminophen / oxyCODONE; Translations: [OXYCODONE-ACETA MINOPHEN] Drug Allergy 10-31-19 16 Unknown, Anaphylaxis [facility] (3 sources) Angiotensin-conv erting enzyme inhibitor agent Drug Intolerance 09-24-20 [facility] (2 sources) sodium zirconium cyclosilicate; Translations: [SODIUM ZIRCONIUM CYCLOSILICATE] Drug Allergy 11-18-19 Constipation [facility] (1 source) amLODIPine Drug Allergy 05-11-20 [facility] Repository Medications Current Medications Medication Drug [...] PO Q6H as needed for pain 10 July 22, 2023 September 08, 2023 3:59pm Start: 10-05-2022 End: 09-08-2023 Start: 11-23-2021 End: 09-18-2022 take 1 tablet by mouth every four to six hours as needed for pain Hydrocodone-Acetaminophen 5-325 mg table t Discontinued 1 - 2 TAB PO EVERY 4-6 HOURS as needed for pain 14 November 23, 2021 September 18, 2022 12:11pm Start: 11-23-2021 End: 09-18-2022 aspirin 81 mg delayed release oral tablet (20 sources) Platelet Aggregation Inhibitor, Nonsteroidal Anti-inflammatory Drug Start: 12-29-2023 take 1 tablet by mouth once daily aspirin 81 mg EC tablet Indications: Atherosclerotic heart disease of [place] coronary artery without angina pectoris TAKE 1 TABLET BY MOUTH EVERY DAY DIRECTED 90 tablet 3 12/29/2023 Active Start: 08-26-2017 End: 09-18-2022 take 1 tablet by mouth once daily in the morning Aspirin 81 mg tablet,chewable Active 81 MG PO Every morning September 18, 2022 12:10pm Complies with drug therapy atorvastatin 20 mg oral tablet (20 sources) HMG-CoA Reductase Inhibitor Start: 11-18-2024 take 1 tablet by mouth once daily at bedtime atorvastatin (Lipitor) 20 mg tablet Indications: 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of [place] coronary artery of [place] heart without angina pectoris Take 1 tablet (20 mg) by mouth once daily at bedtime. 90 tablet 3 11/18/2024 Active Start: 04-29-2024 End: 11-18-2024 Start: 10-16-2023 take 1 tablet by garrick th once daily at bedtime atorvastatin (Lipitor) 20 mg tablet Indications: 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of [place] coronary artery of [place] heart without angina pectoris , Atherosclerotic heart disease of [place] coronary artery without angina pectoris Take 1 tablet (20 mg) by mouth once daily at bedtime. 90 tablet 3 10/16/2023 Active Start: 08-26-2017 End: 08-09-2020 take 1 tablet by mouth once daily Atorvastatin 80 mg Tablet Discontinued 80 MG PO Daily August 26, 2017 1:00am August 09, 2020 11:48am Start: 08-23-2017 End: 10-16-2023 take 1 tablet by mouth once daily at bedtime Atorvastatin 20 mg Tablet Active 20 MG PO Daily at bedtime August 09, 2020 1:00am Complies with drug therapy baclofen 10 mg oral tablet (3 sources) [...] alpha-Adrenergic Sima, beta-Adrenergic Sima Start: 10-06-2022 End: 11-18-2025 take 1 tablet by mouth twice daily at mealtime Carvedilol 25 mg Tablet Active 25 MG PO Twice daily with meals October 06, 2022 1:00am Further refills, or dose adjustment, per PCP Complies with drug therapy Start: 10-02-2017 End: 10-06-2022 take 1 tablet by mouth twice daily Carvedilol 12.5 mg tablet Discontinued 12.5 MG PO Twice daily October 02, 2017 1:00am October 06, 2022 11:40am take 1 tablet by garrick th every [...] 2022 12:00am September 18, 2022 12:04pm Start: 07-14-2022 End: 09-18-2022 take 450 mg by mouth three times daily Clindamycin Hcl Discontinued 450 MG PO Three times daily 90 July 14, 2022 12:00am September 18, 2022 12:04pm cloNIDine hydrochloride 0.1 mg oral tablet (20 sources) Central alpha-2 Adrenergic Agonist Start: 10-08-2024 End: 12-09-2024 take 1 tablet by mouth every twelve hours Clonidine Hcl 0.1 mg tablet Active 0.1 MG PO Every 12 hours 180 December 09, 2024 8:59am Complies with drug therapy Start: 10-08-2024 End: 12-09-2024 Start: 10-06-2024 End: 10-08-2024 take 1 tablet by mouth every twelve hours Clonidine Hcl 0.2 mg tablet Discontinued 0.2 MG PO Every 12 hours 60 October 06, 2024 1:00am October 08, 2024 1:25pm diclofenac sodium 0.01 mg/mg topical gel (3 sources) Nonsteroidal Anti-inflammatory Drug Start: 05-11-2025 apply 2 g topically once as needed for pain Diclofenac Sodium 1 % gel Active 2 GM TOPICAL as directed as needed for knee pain 11 04May 11, 2025 12:00am up to 5x's a day Complies with drug therapy Drug or medicament (substance) (1 source) Start: 05-30-2024 ergocalciferol 1.25 mg oral capsule (20 sources) Provitamin D2 Compound Start: 05-24-2025 Ergocalciferol (Vitamin D2) 1,250 mcg (50,000 unit) capsule Active 20599 UNIT PO every week May 24, 2025 1:44pm Complies with drug therapy Start: 02-18-2025 End: 05-24-2025 take 1 capsule by mouth every week Ergocalciferol (Vitamin D2) 1,250 mcg (50,000 unit) capsule Discontinued 0 .ROUTE .COMPLEX February 18, 2025 8:31am May 24, 2025 1:45pm TAKE 1 CAPSULE BY MOUTH ONCE EVERY WEEK Start: 08-30-2024 End: 02-18-2025 take 1 capsule by mouth every week Ergocalciferol (Vitamin D2) 1,250 mcg (50,000 unit) capsule Discontinued 1250 MCG PO every week 14 August 30, 2024 1:00am February 18, 2025 8:31am famotidine 20 mg oral tablet (20 sources) Histamine-2 Receptor Antagonist Start: 06-01-2024 take 1 tablet by mouth once daily Famotidine 20 mg tablet Active 20 MG PO Daily July 23, 2024 12:00am Complies with drug therapy glucagon (rdna) 1 mg injection (1 source) [...] PO Three times daily August 30, 2024 1:00am Complies with drug therapy Start: 05-31-2024 Start: 08-10-2020 End: 10-15-2024 take 1 tablet by mouth twice daily Hydralazine 50 mg tablet Discontinued 50 MG PO Twice daily September 08, 2023 3:47pm April 26, 2024 1:59pm Further refills, or dose adjustment, per PCP Start: 08-10-2020 End: 07-23-2024 Hydralazine 50 mg tablet Dis continued 75 MG PO Twice daily 270 April 26, 2024 1:59pm July 23, 2024 10:55am Start: 08-10-2020 End: 07-23-2024 Start: 08-10-2020 End: 07-23-2024 Start: 08-10-2020 End: 11-18-2025 take 1.5 tablets by mouth twice daily at mealtime hydrALAZINE (Apresoline) 50 mg tablet Indications: 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of [place] coronary artery of [place] heart without angina pectoris , Essential hypertension Take 1.5 tablets (75 mg) by mouth 2 times a day. Take with food. 270 tablet 3 11/18/2024 11/18/2025 Active take 1 tablet by garrick th twice daily hydrALAZINE HCl - 100 MG Oral Tablet TAKE 1 TABLET TWICE DAILY DIRECTED. Quantity: 180 Refills: 3 Ordered: 16-Oct-2022 DO Active 3 ml insulin glargine 100 unt/ml pen injector (20 sources) Insulin Analog Start: 02-21-2025 Insulin Glargi ne (Lantus Solostar U-100 Insulin) 100 unit/mL (3 mL) insulin pen Active 11 UNIT SUBCUT Twice daily February 21, 2025 2:16pm Complies with drug therapy Start: 05-25-2024 End: 05-25-2024 Start: 11-25-2023 End: 02-21-2025 inject 10 [IU] by subcutaneous injection twice daily Insulin Glargine (Lantus Solostar U-100 Insulin) 100 unit/mL (3 mL) insulin pen Discontinued 10 UNIT SUBCUT Twice daily December 25, 2023 10:39am October 14, 2024 8:54am Start: 09-08-2023 End: 11-25-2023 inject 8 [IU] by subcutaneous injection twice daily Insulin Glargine (Lantus U-100 Insulin) 100 unit/mL solution Discontinued 8 UNIT SUBCUT Twice daily September 08, 2023 3:59pm November 25, 2023 1:42pm Further refills per PCP Start: 08-19-2022 End: 12-25-2023 inject 10 [IU] by subcutaneous injection once daily Insulin Glargine (Lantus Solostar U-100 Insulin) 100 unit/mL (3 mL) insulin pen Discontinued 10 UNIT SUBCUT Daily November 25, 2023 1:42pm December 25, 2023 10:40am Start: 08-19-2022 Lantus SoloSta r 100 UNIT/ML 8 U Subcutaneous bid Aug, Active Start: 08-19-2022 Lantus SoloSta r 100 UNIT/ML 10 U Subcutaneous Aug, Active Start: 11-23-2021 End: 09-08-2023 inject 10 [IU] by subcutaneous injection once daily in the morning Insulin Glargine (Lantus U-100 Insulin) 100 unit/mL solution Discontinued 10 UNIT SUBCUT Every morning October 06, 2022 11:41am September 08, 2023 3:59pm Further refills per PCP Start: 08-23-2017 End: 11-23-2021 inject 50 [IU] by subcutaneous injection once daily Insulin Glargine (Lantus U-100 Insulin) 100 unit/mL Solution Discontinued 50 UNIT SUBCUT Daily 0 August 26, 2017 1:59pm November 23, 2021 11:04am Start: 08-23-2017 End: 05-29-2024 insulin lispro 100 unt/ml injectable solution (3 sources) Insulin Analog Start: 05-24-2024 End: 05-25-2024 Iron (3 sources) Start: 04-17-2021 take 1 tablet by mouth once daily Iron (Ferrous Sulfate) 325 (65 Fe) MG 1 tablet Orally Once a day Apr, Active 24 hr isosorbide mononitrate 30 mg extended release oral tablet (20 sources) Nitrate Vasodilator Start: 11-18-2024 take 1 tablet by mouth once daily isosorbide mononitrate ER (Imdur) 30 mg 24 hr tablet Indications: 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of [place] coronary artery of [place] heart without angina pectoris , History of IA (myocardial infarction) Take 1 tablet (30 mg) by mouth once daily. 90 tablet 3 11/18/2024 Active Start: 03-28-2022 End: 11-18-2024 take 1 tablet by mouth once daily in the morning, then take 1 tablet by mouth every twenty-four hours Isosorbide Mononitrate 30 mg tablet extended release 24 hr Active 30 MG PO Every morning September 18, 2022 1:00am Complies with drug therapy Start: 08-08-2020 End: 09-18-2022 take 1 tablet [...] 0 Refills: 0 Ordered: 19-Sep-2021 DO Active Knee Immobilizer unit (4 sources) Start: 04-28-2025 Knee Immobiliz er unit Active 0 .Route 1 April 28, 2025 12:00am As directed labetalol hydrochloride 5 mg/ml injectable solution (1 [...] mg/ml injection (1 source) Benzodiazepine Start: 05-23-2024 meloxicam 15 mg oral tablet (3 sources) Nonsteroidal Anti-inflammatory Drug Start: 05-11-2025 take 1 tablet by mouth once daily Meloxicam 15 mg tablet Active 15 MG PO daily May 11, 2025 12:00am Complies with drug therapy 2 ml metoclopramide 5 mg/ml prefilled syringe (1 source) Dopamine-2 Receptor Antagonist Start: 05-27-2024 Multiple Vitamin (Multi Vitamin Daily) tablet (3 sources) take 1 tablet by mouth once daily in the morning Multiple Vitamin (Multi Vitamin Daily) tablet Take 1 tablet by mouth in the morning. Active Lzofedft-Dvd-Hlpolon Gluconate (Centrum) 9 mg iron/ 15 mL (15 mL) liquid (7 sources) Start: 10-27-2024 Wfocozjc-Smz-Is rrous Gluconate (Centrum) 9 mg iron/ 15 mL (15 mL) liquid Active 15 ML PO Daily October 27, 2024 9:39am Complies with drug therapy Start: 10-27-2024 Start: 10-27-2024 Sevlhiyt-Tqt-E errous Gluconate (Centrum) 9 mg iron/ 15 mL (15 mL) liquid Active 15 ML PO Daily October 27, 2024 9:39am Start: 10-27-2024 Rhyacjre-Mxw-C errous Gluconate (Centrum) 9 mg iron/ 15 mL (15 mL) liquid Active 15 ML PO Daily October 27, 2024 8:39am multivitamin (Daily Multi-Vitamin) tablet (2 sources) take 1 tablet by garrick th once daily multivitamin (Daily Multi-Vitamin) tablet Take 1 tablet by mouth once daily. Active take 1 tablet by mouth once loulou y multivitamin (Daily Multi-Vitamin) tablet Take 1 tablet by mouth once daily. 0 Active ojsgepajbpon-bomm-jbdwdyyl-f olic acid (Centrum Silver, geriatric,) tablet (4 sources) take 1 tablet by mouth in the morning ecluipyzbppg-imtd-pwafzuux-folic acid (Centrum Silver, geriatric,) tablet Take 1 tablet by mouth in the morning. Active nabumetone 750 mg oral table t (3 sources) Nonsteroid al Anti-infla mmatory Drug S t a r t : 0 1 - 3 0 - 2 0 2 4 take 1 tablet by mouth twice daily as needed nabumetone (Relafen) 750 MG tablet Take 750 mg by mouth 2 (two) times a day as needed 11/04/2023 Active nitroglycerin 0.4 mg subling ual tablet (20 sources) Nitrate Vasodilato r S t a r t : 1 1 - 2 1 - 2 0 1 7 E n d : 0 3 - 1 5 - 2 0 2 5 Nitroglycerin 0.4 mg Tablet, Sublingual Active 0.4 MG SUBLINGUAL Q5M as needed for Chest Pain August 26, 2017 1:00am Complies with drug therapy Nitroglycerin 0. [address] 1 TABLET UNDER THE TONGUE EVERY 5 MINUTES UP TO 3 DOSES NEEDED FOR CHEST PAIN. Sublingual for 8 Active polyethylene glycol 3350 66103 mg powder for oral solution (1 source) [...] for 3 days Start: 10-05-2022 End: 09-08-2023 Start: 10-05-2022 End: 09-08-2023 Prednisone Discontinued 1 [...] 2022 12:04pm Start: 08-23-2017 End: 08-24-2017 take 2 tablets by mouth once daily at mealtime Prednisone 20 mg tablet Discontinued 40 MG PO Daily 07 10August 23, 2017 1:00am August 27, 2017 1:00am August 24, 2017 3:31pm administer with food or milk Start: 08-23-2017 End: 08-24-2017 Start: 08-23-2017 End: 08-24-2017 take 40 mg by mouth once daily at mealtime Prednisone Discontinued 40 MG PO Daily 10 August 23, 2017 1:00am August 24, 2017 3:31pm administer with food or milk sennosides, fdc 8.6 mg oral tablet (1 source) Start: 05-27-2024 sodium phosphate, dibasic 35.5 mg/ml / sodium phosphate, monobasic 96.4 mg/ml enema (1 source) Start: 06-04-2024 End: 06-05-2024 vitamin b12 1 mg oral tablet (20 sources) Vitamin B12 Start: 09-18-2022 take 1 tablet by mouth once daily in the morning Cyanocobalamin (Vitamin B-12) (Vitamin B-12) 1,000 mcg Tablet Active 1000 MCG PO Every morning September 18, 2022 1:00am Complies with drug therapy Vitamin B 12 Act les (1 source) (20 sources) Start: 11-22-2024 Start: 10-29-2024 Start: 10-27-2024 Start: 10-14-2024 End: 10-29-2024 Start: 08-30-2024 End: 10-04-2024 Start: 05-29-2024 End: 05-29-2024 Start: 05-28-2024 [Order [...] IntraVENous, EVERY 6 HOURS PRN, Starting on Fri05/23/24 at 2216, Until Discontinued, Nausea, Vomiting, Administer if oral route cannot be used. [Order 2 End] Start: 2024 End: 04-22-2024 Start: 01-16-2024 End: 2024 Start: 11-24-2023 End: 12-25-2023 Start: 09-08-2023 End: 11-25-2023 Start: 10-06-2022 End: 09-08-2023 Start: 11-23-2021 End: 10-06-2022 Start: 08-08-2020 End: 10-27-2024 (1 source) Start: 05-24-2024 Completed/Discontinued Medications Medication Drug Class(es) Dates Sig (Normalized) Sig (Original) [id number] actuat albuterol 0.09 mg/actuat metered dose inhaler (20 sources) beta2-Adrenergic Agonist Start: 08-23-2017 End: 08-24-2017 Albuterol Sulfate 90 mcg/actuation HFA aerosol inhaler Discontinued 2 INH INHALATION Every 4 hours as needed for shortness of breath or wheezing August 23, 2017 1:00am August 24, 2017 3:31pm administer with spacer Start: 08-23-2017 End: 08-24-2017 amLODIPine 5 mg oral tablet (20 sources) Dihydropyridine Calcium Channel Sima Start: 05-28-2024 End: 05-28-2024 Start: 12-13-2020 End: 09-12-2021 take 1 tablet by mouth once daily Amlodipine 5 mg Tablet Discontinued 5 MG PO Daily 30 December 13, 2020 1:00am September 12, 2021 10:01am Start: 08-23-2017 End: 12-14-2020 take 1 tablet by mouth once daily Amlodipine 10 mg Tablet Discontinued 10 MG PO Daily August 23, 2017 1:00am December 14, 2020 12:29pm amoxicillin 500 mg / clavulanate 125 mg oral tablet (18 sources) Penicillin-class Antibacterial Start: 10-06-2024 End: 10-08-2024 take 1 tablet by mouth every eight hours Amoxicillin-Pot Clavulanate (Augmentin) 500-125 mg tablet Discontinued 1 TAB PO Every 8 hours 15 October 06, 2024 1:00am October 08, 2024 1:25pm Start: 10-06-2024 End: 10-08-2024 B-12 TABS (7 sources) B-12 TABS TAKE 1 TABLET DAILY DIRECTED. Quantity: 0 Refills: 0 Ordered: 28-Mar-2022 DO Active carisoprodol 350 mg oral tablet (20 sources) Muscle Relaxant Start: 04-25-2021 End: 09-12-2021 take 1 tablet by mouth once daily Carisoprodol 350 mg tablet Discontinued 350 MG PO Daily April 25, 2021 12:00am September 12, 2021 10:20am Start: 08-23-2017 End: 10-02-2017 take 1 tablet by mouth at bedtime Carisoprodol 350 mg Tablet Discontinued 350 MG PO Bedtime August 23, 2017 1:00am October 02, 2017 9:01pm ceFAZolin (ANCEF) 2000 mg in sterile water 20 mL IV syringe (1 source) Start: 05-28-2024 End: 05-28-2024 cefdinir 300 mg oral capsule (20 sources) Cephalosporin Antibacterial Start: 08-10-2020 End: 09-16-2020 take 1 capsule by mouth twice daily Cefdinir 300 mg capsule Discontinued 300 MG PO Twice daily 14 August 10, 2020 1:00am September 16, 2020 12:24pm cetirizine hydrochloride 10 mg oral tablet (20 sources) Histamine-1 Receptor Antagonist Start: 07-23-2024 End: 10-12-2024 take 1 tablet by mouth twice daily Cetirizine 10 mg tablet Discontinued 10 MG PO Twice daily July 23, 2024 12:00am October 12, 2024 12:38pm Start: 05-28-2024 take 1 tablet by garrick th in the morning cetirizine (ZyrTEC) 10 MG tablet Take 1 tablet by mouth in the morning and 1 tablet before bedtime. 05/31/2024 Active chlorhexidine gluconate 1.2 mg/ml mouthwash (20 sources) Start: 04-22-2021 End: 09-12-2021 Chlorhexidine Gluconate (Peridex) 0.12 % mouthwash Discontinued 15 ML MUCOUS MEM Twice daily April 22, 2021 12:00am September 12, 2021 10:19am clopidogrel 75 mg oral tablet (20 sources) P2Y12 Platelet Inhibitor Start: 09-16-2020 End: 09-12-2021 take 1 tablet by mouth once daily Clopidogrel 75 mg Tablet Discontinued 75 MG PO Daily September 16, 2020 1:00am September 12, 2021 10:01am cyclobenzaprine hydrochloride 10 mg oral tablet (20 sources) Muscle Relaxant Start: 11-22-2024 End: 05-02-2025 take 1 tablet by mouth once daily at bedtime as needed for muscle spasms Cyclobenzaprine 10 mg tablet Discontinued 10 MG PO Daily at bedtime as needed for muscle spasm February 07, 2025 7:39am May 02, 2025 7:55am Start: 10-04-2024 End: 11-22-2024 take 1 tablet by mouth once daily at bedtime as needed for muscle spasms Cyclobenzaprine 10 mg tablet Discontinued 0 .ROUTE .COMPLEX October 04, 2024 1:03pm November 22, 2024 9:51am TAKE 1 TABLET BY MOUTH DAILY AT BEDTIME NEEDED FOR BACK SPASMS Start: 09-12-2021 End: 10-04-2024 take 1 tablet by mouth three times daily as needed for muscle spasms Cyclobenzaprine 10 mg tablet Discontinued 10 MG PO Three times daily as needed for back spasms October 05, 2022 1:00am September 08, 2023 3:50pm Start: 06-18-2021 End: 10-04-2024 take 1 tablet by mouth once daily at bedtime as needed for muscle spasms Cyclobenzaprine 10 mg tablet Discontinued 10 MG PO Daily at bedtime as needed for back spasms September 08, 2023 3:50pm January 22, 2024 10:30am dapagliflozin 5 mg oral tablet (20 sources) Sodium-Glucose Cotransporter 2 Inhibitor Start: 09-23-2023 End: 12-25-2023 take 1 tablet by mouth once daily Dapagliflozin Propanediol (Farxiga) 5 mg tablet Discontinued 5 MG PO Daily November 24, 2023 1:00am December 25, 2023 11:03am 1 ml diphenhydrAMINE hydrochloride 50 mg/ml cartridge (1 source) Histamine-1 Receptor Antagonist Start: 05-29-2024 End: 05-29-2024 ferrous sulfate 325 mg oral tablet (20 sources) Start: 11-22-2024 End: 05-05-2025 take 1 tablet by mouth once daily Ferrous Sulfate 325 mg (65 mg iron) tablet Discontinued 325 MG PO Daily March 04, 2025 1:53pm May 05, 2025 1:18pm Start: 10-04-2024 End: 11-22-2024 Ferrous Sulfate 325 mg (65 m g iron) tablet Discontinued 0 .ROUTE .COMPLEX October 04, 2024 1:03pm November 22, 2024 9:56am TAKE 1 TABLET EVERY MORNING Start: 10-04-2024 End: 11-22-2024 Start: 08-30-2024 End: 10-04-2024 take 1 tablet by mouth once daily Ferrous Sulfate 325 mg (65 mg iron) tablet Discontinued 325 MG PO Daily August 30, 2024 3:59pm October 04, 2024 1:03pm Start: 04-22-2024 End: 08-30-2024 Ferrous Sulfate 325 mg (65 m g iron) tablet Discontinued 0 .ROUTE .COMPLEX August 06, 2024 1:18pm August 30, 2024 3:59pm TAKE 1 TABLET EVERY MORNING Start: 04-22-2024 End: 08-30-2024 Start: 04-22-2024 Ferrous Sulfat e Active 0 [...] mg tablet Disc ontinued MG PO April 26, 2024 12:00am July 23, 2024 10:54am Start: 09-12-2021 End: 11-23-2021 take 1 tablet by mouth once daily Furosemide 40 mg tablet Discontinued 40 MG PO Daily September 12, 2021 1:00am November 23, 2021 11:03am Start: 08-23-2017 End: 04-25-2021 take 1 tablet by mouth once daily as needed for edema Furosemide (Lasix) 40 mg Tablet Discontinued 40 MG PO Daily as needed for Edema August 23, 2017 1:00am April 25, 2021 10:48pm gabapentin 300 mg oral capsule (20 sources) Anti-epileptic Agent Start: 05-24-2024 End: 11-27-2024 take 1 capsule by mouth twice daily Gabapentin 300 mg capsule Discontinued 300 MG PO Twice daily July 23, 2024 12:00am October 12, 2024 12:28pm glipiZIDE 5 mg oral tablet (20 sources) Sulfonylurea Start: 10-04-2024 End: 10-12-2024 take 1 tablet by mouth once daily Glipizide 5 mg tablet Discontinued 5 MG PO Daily October 04, 2024 1:00am October 12, 2024 12:27pm Start: 05-25-2024 End: 05-25-2024 Start: 12-25-2023 End: 03-22-2024 take 1 tablet by mouth once daily Glipizide 5 mg tablet Discontinued 5 MG PO Daily December 25, 2023 12:00am March 22, 2024 11:01am Start: 08-23-2017 End: 08-10-2020 take 1 tablet [...] mg tablet Discontinued 750 MG PO Daily 07 15August 23, 2017 1:00am September 01, 2017 1:00am August 24, 2017 3:31pm Start: 08-23-2017 End: 08-24-2017 lisinopril 20 mg oral tablet (20 sources) Angiotensin Converting Enzyme Inhibitor Start: 10-02-2017 End: 12-10-2018 take 2 tablets by mouth once daily Lisinopril 20 mg tablet Discontinued 40 MG PO Daily October 02, 2017 1:00am December 10, 2018 7:50pm Start: 10-02-2017 End: 12-10-2018 take 40 mg by mouth once daily Lisinopril Discontinued 40 MG PO Daily October 02, 2017 1:00am December 10, 2018 7:50pm Start: 08-23-2017 End: 08-10-2020 take 1 tablet by mouth once daily Lisinopril 40 mg Tablet Discontinued 40 MG PO Daily August 23, 2017 1:00am August 10, 2020 10:11am metFORMIN hydrochloride 500 mg oral tablet (20 sources) Biguanide Start: 08-08-2020 End: 12-25-2023 take 1 tablet by mouth twice daily Metformin 500 mg tablet Discontinued 500 MG PO Twice daily August 08, 2020 1:00am December 25, 2023 10:39am On Hold: Until renal function improves take [...] Discontinued 25 MG PO Twice daily 60 August 26, 2017 1:00am October 02, 2017 9:01pm 1 ml morphine sulfate 4 mg/ml cartridge [...] 0 Refills: 0 Ordered: 28-Mar-2022 DO Active Moookorq-Kfd-Occe ous Gluconate (Centrum) 9 mg iron/ 15 mL (15 mL) Liquid (20 sources) Start: 08-08-2020 End: 10-27-2024 Mhnutmiz-Zcc-Ndbdc us Gluconate (Centrum) 9 mg iron/ 15 mL (15 mL) Liquid Discontinued 15 ML PO Daily August 08, 2020 1:00am October 27, 2024 9:42am Start: 08-08-2020 End: 10-27-2024 Oezriaow-Oix-Jycbyec Glucona te (Centrum) 9 mg iron/ 15 mL (15 mL) Liquid Discontinued 15 ML PO Daily August 08, 2020 12:00am October 27, 2024 8:42am Start: 08-08-2020 Zdczpoxh-Sht-V errous Gluconate (Centrum) 9 mg iron/ 15 mL (15 mL) Liquid Active 15 ML PO Daily August 08, 2020 12:00am Start: 08-08-2020 Ucpmpaoh-Dhw-M errous Gluconate (Centrum) 9 mg iron/ 15 [...] (DR/EC) Discontinued MG PO October 04, 2024 1:00am October 04, 2024 8:54pm Start: 09-11-2023 End: 07-23-2024 take 1 tablet by mouth once daily Pantoprazole 40 mg tablet,delayed release (DR/EC) Discontinued 40 MG PO Daily March 15, 2024 10:56am July 23, 2024 10:55am penicillin v potassium 500 mg oral tablet (20 sources) Start: 04-22-2021 End: 06-21-2021 take 1 tablet by mouth twice daily Penicillin V Potassium 500 mg tablet Discontinued 500 MG PO Twice daily 25 07April 22, 2021 12:00am June 21, 2021 7:24am potassium chloride 20 meq extended release oral tablet (20 sources) Start: 11-01-2024 End: 11-22-2024 Potassium Chloride 20 mEq tablet extended release Discontinued 60 MEQ PO .COMPLEX November 01, 2024 5:36pm November 22, 2024 10:02am 60 mEq orally for three days; Start: 10-29-2024 End: 11-01-2024 take 3 tablets by mouth once Potassium Chloride 20 mEq tablet extended release Discontinued 60 MEQ PO Once October 29, 2024 1:00am November 01, 2024 5:40pm Start: 10-29-2024 End: 11-22-2024 rOPINIRole 1 mg oral tablet (20 sources) Nonergot Dopamine Agonist Start: 08-23-2017 End: 12-10-2018 take 1 tablet by mouth at bedtime Ropinirole 1 mg Tablet Discontinued 1 MG PO Bedtime August 23, 2017 1:00am December 10, 2018 7:50pm Start: 08-23-2017 End: 12-10-2018 saccharomyces boulardii 250 mg oral capsule (20 [...] 05-29-2024 Start: 05-23-2024 Start: 05-23-2024 End: 05-31-2024 sodium zirconium cyclosilica [place] 85122 mg powder for oral suspension (20 sources) Start: 10-08-2024 End: 10-27-2024 Sodium Zirconium Cyclosilica te (Lokelma) 10 gram powder in packet Discontinued 10 GM PO Daily October 08, 2024 1:00am October 27, 2024 9:42am Start: 10-08-2024 End: 11-22-2024 Sodium Zirconium Cyclosilica te (Lokelma) 10 gram powder in packet Discontinued 10 GM PO Every 48 hours October 27, 2024 9:41am November 22, 2024 10:07am spironolactone 25 mg oral tablet (20 sources) Aldosterone Antagonist Start: 07-23-2024 End: 10-06-2024 take 1 tablet by mouth once daily Spironolactone 25 mg tablet Discontinued 25 MG PO Daily October 04, 2024 1:01pm October 06, 2024 2:48pm Start: 06-01-2024 ticagrelor 90 mg oral tablet [...] myocardial infarction of unspecified site] 08-25-2017 Chronic Cataract (5 sources) Bilateral cataracts; Translations: [Unspecified cataract] 04-28-2025 Chronic Chronic kidney disease (20 sources) Chronic kidney disease stage 3A ; Translations: [Chronic kidney disease, Stage III (moderate)] Onset: 3 Resolved: 4 09-15-2020 Chronic Chronic kidney disease (13 sources) Chronic kidney disease; Translations: [Stage 3b chronic kidney disease (CKD)] Onset: 2 Resolved: 2 Conditions associated with dizziness or vertigo (20 sources) Lightheadedness; Translations: [Dizziness and giddiness] Onset: 4 Resolved: 4 04-26-2021 Episodic Coronary atherosclerosis and other heart disease (20 sources) Coronary atherosclerosis; Translations: [Coronary atherosclerosis of [place] coronary artery] Onset: 2 Resolved: 4 Chronic [...] 4 09-15-2020 Chronic Diabetes mellitus without complication (20 sources) Acute hyperglycemia; Translations: [Hyperglycemia, unspecified] 10-04-2024 [...] Resolved: 4 10-03-2022 Episodic Nonmalignant breast conditions (20 sources) Gynecomastia; Translations: [Hypertrophy of breast] Onset: 5 10-12-2024 Episodic Nonspecific chest pain (20 sources) Chest pain, unspecified; Translations: [Musculoskeletal chest pain] Onset: 7 11-23-2021 Episodic Osteoarthritis (5 sources) Arthritis; Translations: [Unspecified osteoarthritis, unspecified site] 04-28-2025 Chronic Other acquired deformities (20 sources) Lumbar spondylolisthesis; Translations: [Spondylolisthesis, lumbar region] Onset: 4 Resolved: 4 10-03-2022 Episodic Other acquired deformities (6 sources) Spondylolisthesis, lumbar region; Translations: [Acquired spondylolisthesis] Onset: 2 Resolved: 2 Episodic Other aftercare (20 sources) Long-term current use of insulin; Translations: [intermediate project manager (current) use of insulin] Episodic Other aftercare (1 source) Encounter for follow-up examination after completed treatment for conditions other than malignant neoplasm Episodic Other and unspecified benign neoplasm (20 sources) Tubular adenoma ; Translations: [Benign neoplasm, unspecified site] 04-28-2025 Episodic Other connective tissue disease (20 sources) [...] Chronic Other diseases of kidney and ureters (20 sources) Secondary hyperparathyroidism; Translations: [Secondary hyperparathyroidism of renal origin] Onset: 4 Resolved: 4 04-24-2024 Chronic Other diseases of kidney and ureters (20 sources) Secondary hyperparathyroidism of renal origin; Translations: [...] Onset: 4 Resolved: 4 10-02-2017 Episodic Other non-traumatic joint disorders (6 sources) Pain in left knee; Translations: [Left knee pain] Onset: 5 04-28-2025 Episodic Other nutritional; endocrine; and metabolic disorders (20 sources) Obesity; Translations: [Obesity, unspecified] Onset: 4 Resolved: 4 09-15-2020 Chronic Other nutritional; endocrine; and metabolic disorders (20 sources) Overweight in adulthood with body mass index of 25 or more but less than 30; Translations: [Overweight] Onset: 4 Resolved: 4 10-16-2023 Episodic Other nutritional; endocrine; and metabolic disorders (2 sources) Body mass index (BMI) 26.0-26.9, adult; Translations: [Body mass index (BMI) 26.0-26.9, adult] Onset: 5 Episodic Other screening for suspected conditions (not [...] encounter] Onset: 4 Resolved: 4 07-22-2023 Episodic Substance-related disorders (17 sources) Occasional tobacco smoker; Translations: [Tobacco use disorder] Onset: 3 Resolved: 4 10-16-2023 Chronic Comment on above: 1-2 packs weekly; 1 pack every 2 weeks ; Syncope (20 sources) Near syncope; Translations: [Syncope and collapse] Onset: 5 10-06-2024 Episodic Thyroid disorders (20 sources) Thyroid nodule; Translations: [Nontoxic single thyroid nodule] Onset: 2 Resolved: 2 Chronic Thyroid disorders (5 sources) Disorder of thyroid gland; Translations: [Disorder of thyroid, unspecified] 04-28-2025 Episodic Unclassified (2 sources) Chest pain, unspecified / R07.9(ICD-9) Onset: 7 Urinary tract infections (20 sources) Pyelonephritis; Translations: [Tubulo-interstitial nephritis, not specified as acute or chronic] Onset: Resolved: 08-08-2020 Episodic Past or Other Problems Problem Classification Problem Date Documented Da te Episodic/Chronic Bacterial infection; unspecified site (1 source) Unspecified Escherichia coli [E. coli] as the cause of diseases classified elsewhere; Translations: [Unspecified Escherichia coli [E. coli] as the cause of diseases classified elsewhere] Onset: 10-06-2024 Episodic Other aftercare (3 sources) assisted (current) use of insulin; Translations: [assisted (current) use of insulin (Multi)] Onset: 04-29-2024 Episodic Other and ill-defined heart disease (3 sources) [...] disorders (2 sources) Overweight; Translations: [Overweight] Onset: 10-16-2023 Episodic Other nutritional; endocrine; and metabolic disorders (2 sources) Body mass index (BMI) 27.0-27.9, adult; Translations: [Body mass index (BMI) 27.0-27.9, adult] Onset: 10-16-2023 Episodic Paralysis (5 sources) Paraparesis; Translations: [Paraplegia, unspecified] Onset: 05-25-2024 Resolved: 06-23-2024 06-23-2024 Chronic Residual codes; unclassified (6 sources) Other specified health status; Translations: [Other drug allergy] Onset: 04-29-2024 Resolved: 06-23-2024 06-23-2024 Episodic Residual codes; unclassified (3 sources) History of lumbar discectomy; Translations: [Other specified postprocedural states] Onset: 10-31-2015 Resolved: 06-23-2024 06-23-2024 Episodic Unclassified (2 sources) Onset: 10-16-2023 Resolved: 11-18-2024 10-16-2023 Viral infection (3 sources) Herpes zoster; Translations: [Zoster without complications] Onset: 06-23-2024 Resolved: 06-23-2024 06-23-2024 Episodic Results Test Name Value Interpretation Reference Range Facility X-ray reportOrdered By: Robin Hernandez on 05-11-2025 Study report [facility] [address] [place] [address] XRay Report Signed Patient: Gage Lugo MR#: [id number] : 1950 Acct:[id number] Age/Sex: 75 / M ADM Date: 08/06/2 5 Loc: SOXD Room: Type: REG CLI Attending Dr: Alex Reeves II, MD Copies [...] Hernandez M.D. 05/11/2025 5:10 PM Dictation Location: [place] [address] Transcribed By: [facility] 05/11/25 1710 Dictated By: Robin Hernandez II, MD 05/11/25 1708 Signed By: 05/11/25 171 [facility] Work Phone: Study report [facility] [address] [place] [address] XRay Report Signed Patient: Gage Lugo MR#: [id number] : 1950 Acct:[id number] Age/Sex: 75 / M ADM Date: 5 Loc: SOXD Room: Type: REG CLI Attending Dr: Alex Reeves II, MD Copies [...] Hernandez M.D. 05/11/2025 5:10 PM Dictation Location: [facility]-- Transcribed By: [facility] 05/11/251709 Dictated By: oRbin Hernandez II, MD 05/11/251709 Signed By: 05/11/251709 [facility] Work Phone: XR knee LT 4V*on 05-11-2025 XR knee LT 4V* [facility] [address] [place] [address] XRay Report Signed Patient: Gage Lugo MR#: [id number] : 1950 Acct:[id number] Age/Sex: 75 / M ADM Date: 05/11/25 Loc: [facility] Room: Type: [facility] Attending Dr: Alex Reeves II, MD Copies to: Alex Reeves MD Ordering Provider: Alex Reeves MD Date of Service: 05/11/25 XR/XR knee LT 4V*: M25.562 - Pain in left knee XR knee LT 4V* 05/11/2025 12:04 PM SIGNS AND SYMPTOMS: M25.562 - Pain in left knee PROTOCOL: Frontal, [...] Hernandez M.D. 05/11/2025 5:10 PM Dictation Location: [facility] Transcribed By: LOBITO 05/11/251709 Dictated By: Robin Hernandez II, MD 05/11/251707 Signed By: 05/11/251709 Normal [facility] XR pelvis 1-2Von 05-11-2025 XR pelvis 1-2V [facility] [address] [place] [id number] XRay Report Signed Patient: Gage Lugo MR#: [id number] : 1950 Acct:[id number] Age/Sex: 75 / M ADM Date: 05/11/25 Loc: [facility] Room: Type: [facility] Attending Dr: Alex Reeves II, MD Copies to: Alex Reeves MD Ordering Provider: Alex Reeves MD Date of [...] Hernandez M.D. 05/11/2025 5:10 PM [facility]ictation [facility] Transcribed By: LOBITO 05/11/251709 Dictated By: Robin Hernandez II, MD 05/11/251709 Signed By: 08/06/25 1710 Normal [facility] X-ray reportOrdered By: Samuel Caraballo on 04-28-2025 Study report [address] [address] XRay Report Signed Patient: Gage Lugo MR#: [id number] : 1950 Acct:[id number] Age/Sex: 75 / M ADM Date: 5 Loc: XDUCLY Room: Type: REG CLI Attending Dr: Lizette Alanis FILTERER Copies to: Lizette Alanis APRN~ Ordering Provider: [...] PROCESS. Impression dictated by: Sagar Caraballo Jr., DHeatherOHeather 04/28/2025 1:24 PM Dictation Location: [place] [address] Transcribed By: [facility] 04/28/25 1324 Dictated By: Sagar Caraballo Jr, DO 04/28/25 1324 Signed By: 04/28/25 1324 [facility] XR knee LT 4V*on 04-28-2025 XR knee LT 4V* [facility] [address] [address] XRay Report Signed Patient: Gage Lugo MR#: [id number] : 1950 Acct:[id number] Age/Sex: 75 / M ADM Date: 04/28/25 Loc: XDUCLY Room: Type: REG CLI Attending Dr: Lizette Alanis FILTERER Copies to: Lizette Alanis APRN Ordering Provider: Lizette Alanis APRN Date of [...] PROCESS. Impression dictated by: Sagar Caraballo Jr., D.OHeather 04/28/2025 1:24 PM Dictation Location: [place] [address] Transcribed By: [facility] 04/28/25 1324 Dictated By: Sagar Caraballo Jr, DO 04/28/25 1324 Signed By: 04/28/25 1324 Normal [facility] Alanine aminotransferase [En zymatic activity/volume] in Serum or PlasmaOrdered By: Lolita Adorno on 03-09-2025 ALT [Catalytic activity/Vol] Alanine aminotransferase [Enzymatic activity/volume] in Serum or Plasma [facility] ALT [Catalytic activity/Vol] 11 U/L [facility] Comment on above: Performed By: #### C KAREN ADDONUAPLUS #### [facility] [address] [place] [address] Albumin [Mass/volume] in Ser um or Plasma by Bromocresol green (BCG) dye binding methoOrdered By: Lolita Adorno on 03-09-2025 Albumin BCG dye [Mass/Vol] Albumin [Mass/volume] in Serum or Plasma by Bromocresol green (BCG) dye binding metho 3.5-5.7 [facility] Albumin BCG dye [Mass/Vol] 4.0 g/dL 3.5-5.7 [facility] Alkaline phosphatase [Enzyma tic activity/volume] in Serum or PlasmaOrdered By: Lolita Adorno on 03-09-2025 ALP [Catalytic activity/Vol] Alkaline phosphatase [Enzymatic activity/volume] in Serum or Plasma High 34-104 [facility] ALP [Catalytic activity/Vol] 108 U/L High 34-104 [facility] Comment on above: Performed By: #### C UU, ADDONUAPLUS #### [facility] [address] [place] [address] [place] Aspartate aminotransferase [ Enzymatic activity/volume] in Serum or PlasmaOrdered By: Lolita Aragonr on 03-09-2025 AST [Catalytic activity/Vol] Aspartate aminotransferase [Enzymatic activity/volume] in Serum or Plasma Low 13-39 [facility] AST [Catalytic activity/Vol] 11 U/L Low 13-39 [facility] Comment on above: Performed By: #### C UU, ADDONUAPLUS #### [facility] [address] [place] [address] Basophils Auto (Bld) [#/Vol] Ordered By: Lolita Aragonr on 03-09-2025 Basophils (Bld) [#/Vol] Automated basophil count 0.0-0.2 [facility] Basophils [#/volume] in Bloo d by Automated countOrdered By: Lolita Aragonr on 03-09-2025 Basophils (Bld) [#/Vol] 0.0 10*3/uL 0.0-0.2 [facility] Comment on above: Result Comment: PERF ORMED BY: [place] [address] PATHOLOGIST [employer] WORKER WOOD JANG M.D. Performed By: #### C UU, ADDONUAPLUS #### [address] Basophils/100 WBC Auto (Bld) Ordered By: Lolita Adorno on 03-09-2025 Basophils/100 WBC (Bld) Automated basophil % . [facility] Basophils/100 leukocytes in Blood by Automated countOrdered By: Lolita Adorno on 03-09-2025 Basophils/100 WBC (Bld) 0.5 % . [facility] Comment on above: Performed By: #### C UU, ADDONUAPLUS #### [facility] [address] [place] [address] Bilirubin.total [Mass/volume ] in Serum or PlasmaOrdered By: Lolita Schwidar on 03-09-2025 Bilirubin [Mass/Vol] Bilirubin.total [Mass/volume] in Serum or Plasma 0.3-1.0 [facility] Bilirubin [Mass/Vol] 0.5 mg/dL 0.3-1.0 [facility] Comment on above: Performed By: #### C UU, ADDONUAPLUS #### [facility] [address] [place] [address] [place] Calcium [Mass/volume] in Ser um or PlasmaOrdered By: Lolita Adorno on 03-09-2025 Calcium [Mass/Vol] Calcium [Mass/volume ] in Serum or Plasma 8.6-10.3 [facility] Calcium [Mass/Vol] 8.8 mg/dL 8.6-10.3 [facility] Comment on above: Performed By: #### C UU, ADDONUAPLUS #### [facility] [address] Carbon dioxide, total [Moles /volume] in Serum or PlasmaOrdered By: Lolita Adorno on 03-09-2025 CO2 [Moles/Vol] Carbon dioxide, tota l [Moles/volume] in Serum or Plasma 21.0-31.0 [facility] CO2 [Moles/Vol] 28.2 mmol/L 21.0-31.0 [facility] Comment on above: Performed By: #### C UU, ADDONUAPLUS #### [facility] [address] [place] [address] [place] Chloride [Moles/volume] in S antolin or PlasmaOrdered By: Lolita Adorno on 03-09-2025 Chloride [Moles/Vol] Chloride [Moles/vol ume] in Serum or Plasma 98-107 [facility] Chloride [Moles/Vol] 105 mmol/L 98-107 [facility] Comment on above: Performed By: #### C UU, ADDONUAPLUS #### [facility] [address] [place] [address] [place] Cholesterol [Mass/volume] in Serum or PlasmaOrdered By: Lolita Mendeserecasey on 03-09-2025 Cholesterol [Mass/Vol] Cholesterol [Mass/volume] in Serum or Plasma Low 140-200 [facility] Comment on above: Chol less than 200 m g/dl low riskChol 201-239 mg/dl borderline riskChol 240 mg/dl and greater high risk Cholesterol [Mass/Vol] 121 mg/dL Low 140-200 [facility] Comment on above: Chol less than 200 m g/dl low riskChol 201-239 mg/dl borderline riskChol 240 mg/dl and greater high risk Result Comment: Chol less than 200 mg/dl low risk Chol 201-239 mg/dl borderline risk Chol 240 mg/dl and greater high risk Performed By: #### C KAREN, ADDONUAPLUS #### [facility] [address] [id number] [facility] Cholesterol in HDL [Mass/vol ume] in Serum or PlasmaOrdered By: Lolita Adorno on 03-09-2025 Cholesterol in HDL [Mass/Vol] Serum or plasma high density lipoprotein (HDL) cholesterol measurement [facility] Comment on above: HDL CHOL ATP-III CLA SSIFICATION Cardiovascular RiskHDL > or equal to 60 mg/dL LOWHDL < 40 mg/dL HIGH Cholesterol in HDL [Mass/Vol] 30 mg/dL [facility] Comment on above: HDL CHOL ATP-III CLA SSIFICATION Cardiovascular RiskHDL > or equal to 60 mg/dL LOWHDL < 40 mg/dL HIGH Result Comment: HDL CHOL ATP-III CLASSIFICATION Cardiovascular Risk HDL > or equal to 60 mg/dL LOW HDL < 40 mg/dL HIGH Performed By: #### C KAREN, ADDONUAPLUS #### [facility] [address] [place], [place] [id number] [place] Cholesterol in LDL Calc [Mas s/Vol]Ordered By: Lolita Adorno on 03-09-2025 Cholesterol in LDL [Mass/Vol] Cholesterol in LDL [Mass/volume] in Serum or Plasma by calculation 0-100 [facility] Comment on above: LDL ATP III CLASSIFI CATIONLDL less than 100 mg/dL OptimalLDL 100-129 mg/dL Near or above optimalLDL 130-159 mg/dL Borderline highLDL 160-189 mg/dL HighLDL greater than 189 mg/dL Very high Cholesterol in LDL [Mass/Vol] 62 mg/dL 0-100 [facility] Comment on above: LDL ATP III CLASSIFI CATIONLDL less than 100 mg/dL OptimalLDL 100-129 mg/dL Near or above optimalLDL 130-159 mg/dL Borderline highLDL 160-189 mg/dL HighLDL greater than 189 mg/dL Very high Cholesterol in VLDL Calc [Ma ss/Vol]Ordered By: Lolita Adorno on 03-09-2025 Cholesterol in VLDL [Mass/Vol] Cholesterol in VLDL [Mass/volume] in Serum or Plasma by calculation [facility] Cholesterol in VLDL [Mass/Vol] 29 mg/dL [facility] Complete Blood Count Auto Di ffon 03-09-2025 Mean Corpuscular HGB Conc 33.9 g/dL Normal 32.5-35.6 [facility] Comment on above: Performed By: #### C UU, ADDONUAPLUS #### [facility] [address] [place] [address] NRBC% 0.1 /100{WBC} Normal 0-0.5 [facility] Comment on above: Performed By: #### C UU, ADDONUAPLUS #### [facility] [address] [place] [address] Comprehensive Metabolic Pane jered 03-09-2025 Albumin [Mass/Vol] 4.0 g/dL Normal 3.5-5.7 [facility] Comment on above: Performed By: #### C UAngus ADDONUAPLUS #### [address] Estimated GFR 28.918 mL/Min Normal [facility] Comment on above: Performed By: #### C UU, ADDONUAPLUS #### [address] Creatinine [Mass/volume] in Serum or PlasmaOrdered By: Lolita Adorno on 03-09-2025 Creatinine [Mass/Vol] Creatinine [Mass/v olume] in Serum or Plasma High 0.70-1.30 [facility] Creatinine [Mass/Vol] 2.31 mg/dL High 0.70-1.30 [facility] Comment on above: Performed By: #### C UU, ADDONUAPLUS #### [facility] [address] [place] [address] Eosinophils Auto (Bld) [#/Vo l]Ordered By: Lolita Adorno on 03-09-2025 Eosinophils (Bld) [#/Vol] Automated eosinophil count 0.0-0.45 [facility] Eosinophils [#/volume] in Bl ood by Automated countOrdered By: Lolita Adorno on 03-09-2025 Eosinophils (Bld) [#/Vol] 0.3 10*3/uL 0.0-0.45 [facility] Comment on above: Performed By: #### C UU, ADDONUAPLUS #### [facility] [address] [place] [address] Eosinophils/100 WBC Auto (Bl d)Ordered By: Lolita Adorno on 03-09-2025 Eosinophils/100 WBC (Bld) Automated eosinophil % . [facility] Eosinophils/100 leukocytes i n Blood by Automated countOrdered By: Lolita Adorno on 03-09-2025 Eosinophils/100 WBC (Bld) 3.8 % . [facility] Comment on above: Performed By: #### C UU, ADDONUAPLUS #### [facility] [address] [place] [address] Erythrocyte distribution wid th Auto (RBC) [Ratio]Ordered By: Lolita Adorno on 03-09-2025 Erythrocyte distribution width (RBC) [Ratio] Erythrocyte distribution width [Ratio] by Automated count 12.0-14.8 [facility] Erythrocyte distribution wid th [Ratio] by Automated countOrdered By: Lolita Adorno on 03-09-2025 Erythrocyte distribution width (RBC) [Ratio] 13.4 % 12.0-14.8 [facility] Comment on above: Performed By: #### C UU, ADDONUAPLUS #### [facility] [address] [place] [address] [place] Erythrocytes [#/volume] in B lood by Automated countOrdered By: Lolita Adorno on 03-09-2025 RBC (Bld) [#/Vol] 4.31 10*6/uL 3.90-5.60 [facility] Comment on above: Performed By: #### C UU, ADDONUAPLUS #### [facility] [address] Globulin Calc (S) [Mass/Vol] Ordered By: Lolita Adorno on 03-09-2025 Globulin (S) [Mass/Vol] Serum globulin measurement by calculation (mass/volume) [facility] Glucose [Mass/volume] in Ser um or PlasmaOrdered By: Lolita Adorno on 03-09-2025 Glucose [Mass/Vol] Glucose [Mass/volume ] in Serum or Plasma High 70-100 [facility] Comment on above: ADA recommended refe rence rangeRandom Glucose Reference Range is dependent on time and content of last meal. Glucose of more than 200 mg/dL in a nonstressed, ambulatory subject supports the diagnosis of Diabetes Mellitus. Glucose [Mass/Vol] 212 mg/dL High 70-100 [facility] Comment on above: ADA recommended refe rence rangeRandom Glucose Reference Range is dependent on time and content of last meal. Glucose of more than 200 mg/dL in a nonstressed, ambulatory subject supports the diagnosis of Diabetes Mellitus. Result Comment: [place] om Glucose Reference Range is dependent on time and content of last meal. Glucose of more than 200 mg/dL in a nonstressed, ambulatory subject supports the diagnosis of Diabetes Mellitus. ADA recommended reference range Performed By: #### C KAREN, MARILYNPLUS #### [facility] [address] [place] [address] Hematocrit Auto (Bld) [Volum e fraction]Ordered By: Lolita Adorno on 03-09-2025 Hematocrit (Bld) [Volume fraction] Hematocrit [Volume Fraction] of Blood by Automated count Low 38.8-50.0 [facility] Hematocrit [Volume Fraction] of Blood by Automated countOrdered By: Lolita Adorno on 03-09-2025 Hematocrit (Bld) [Volume fraction] 36.3 % Low 38.8-50.0 [facility] Comment on above: Performed By: #### C KAREN, ADDONUAPLUS #### [facility] [address] Hemoglobin [Mass/volume] in BloodOrdered By: Lolita Adorno on 03-09-2025 Hemoglobin (Bld) [Mass/Vol] Hemoglobin [Mass/volume] in Blood Low 13.0-17.0 [facility] Hemoglobin (Bld) [Mass/Vol] 12.3 g/dL Low 13.0-17.0 [facility] Comment on above: Performed By: #### C KAREN, OSCARONUAPLUS #### [facility] [address] [place] [address] Leukocytes [#/volume] correc ruben for nucleated erythrocytes in Blood by Automated counOrdered By: Lolita Adorno on 03-09-2025 WBC corrected for nucl RBC Auto (Bld) [#/Vol] Leukocytes [#/volume] corrected for nucleated erythrocytes in Blood by Automated coun 4.1-10.5 [facility] WBC corrected for nucl RBC Auto (Bld) [#/Vol] 6.9 10*3/uL 4.1-10.5 [facility] Leukocytes [#/volume] in Blo od by Automated countOrdered By: Lolita Adorno on 03-09-2025 WBC (Bld) [#/Vol] 6.9 10*3/uL 4.1-10.5 [facility] Comment on above: Performed By: #### C JASMINE JONESUAPLUS #### [address] Lipid Panelon 03-09-2025 LDL Cholesterol,Calculated 62 mg/dL Normal 0-100 [facility] Comment on above: Result Comment: LDL ATP III CLASSIFICATION LDL less than 100 mg/dL Optimal LDL 100-129 mg/dL Near or above optimal LDL 130-159 mg/dL Borderline high LDL 160-189 mg/dL High LDL greater than 189 mg/dL Very high Performed By: #### C KAREN, ADDONUAPLUS #### [address] Triglyceride w/Reflex 147 mg/dL Normal 0-149 [facility] Comment on above: Result Comment: TRIG ATP III CLASSIFICATION TRIG less than 150 mg/dL Normal TRIG 150-199 mg/dL Borderline high TRIG 200-500 mg/dL High TRIG greater than 500 mg/dL Very high Standard traceable to the Center for Disease Conrtrol and Prevention (CDC) test method. Performed By: #### C UU, ADDONUAPLUS #### [address] VLDL CHOLESTEROL 29 mg/dL Normal [facility] Comment on above: Performed By: #### C UU, ADDONUAPLUS #### [address] Lymphocytes Auto (Bld) [#/Vo l]Ordered By: Lolita Adorno on 03-09-2025 Lymphocytes (Bld) [#/Vol] Lymphocytes [#/volume] in Blood by Automated count 1.00-4.8 [facility] Lymphocytes [#/volume] in Bl ood by Automated countOrdered By: Lolita Adorno on 03-09-2025 Lymphocytes (Bld) [#/Vol] 2.0 10*3/uL 1.00-4.8 [facility] Comment on above: Performed By: #### C UU, ADDONUAPLUS #### [address] Lymphocytes/100 WBC Auto (Bl d)Ordered By: Lolita Adorno on 03-09-2025 Lymphocytes/100 WBC (Bld) Lymphocytes/100 leukocytes in Blood by Automated count . [facility] Lymphocytes/100 leukocytes i n Blood by Automated countOrdered By: Lolita Adorno on 03-09-2025 Lymphocytes/100 WBC (Bld) 28.6 % . [facility] Comment on above: Performed By: #### C UU, ADDONUAPLUS #### [address] MCH Auto (RBC) [Entitic mass ]Ordered By: Lolita Adorno on 03-09-2025 MCH (RBC) [Entitic mass] MCH [Entitic mass] by Automated count 27.5-35.2 [facility] MCH [Entitic mass] by Automa ruben countOrdered By: Lolita Adorno on 03-09-2025 MCH (RBC) [Entitic mass] 28.5 pg 27.5-35.2 [facility] Comment on above: Performed By: #### C UU, OSCARONUAPLUS #### [facility] [address] MCHC Auto (RBC) [Mass/Vol]Or dered By: Lolita Adorno on 03-09-2025 MCHC (RBC) [Mass/Vol] MCHC [Mass/volume] by Automated count 32.5-35.6 [facility] MCHC (RBC) [Mass/Vol] 33.9 g/dL 32.5-35.6 [facility] MCV Auto (RBC) [Entitic vol] Ordered By: Lolita Adorno on 03-09-2025 MCV (RBC) [Entitic vol] MCV [Entitic vol ume] by Automated count 83.5-101 [facility] MCV [Entitic volume] by Auto mated countOrdered By: Lolita Adorno on 03-09-2025 MCV (RBC) [Entitic vol] 84.1 fL 83.5-101 [facility] Comment on above: Performed By: #### C UU, ADDONUAPLUS #### [facility] [address] [place] [address] Monocytes Auto (Bld) [#/Vol] Ordered By: Lolita Adorno on 03-09-2025 Monocytes (Bld) [#/Vol] Automated blood monocyte count 0.0-0.8 [facility] Monocytes [#/volume] in Bloo d by Automated countOrdered By: Lolita Adorno on 03-09-2025 Monocytes (Bld) [#/Vol] 0.7 10*3/uL 0.0-0.8 [facility] Comment on above: Performed By: #### C UU, ADDONUAPLUS #### [facility] [address] [place] [address] Monocytes/100 WBC Auto (Bld) Ordered By: Lolita Adorno on 03-09-2025 Monocytes/100 WBC (Bld) Automated monocyte % . [facility] Monocytes/100 leukocytes in Blood by Automated countOrdered By: Lolita Adorno on 03-09-2025 Monocytes/100 WBC (Bld) 10.2 % . [facility] Comment on above: Performed By: #### C KAREN, OSCARONUAPLUS #### [facility] [address] Neutrophils Auto (Bld) [#/Vo l]Ordered By: Lolita Adorno on 03-09-2025 Neutrophils (Bld) [#/Vol] Neutrophils [#/volume] in Blood by Automated count 1.8-7.7 [facility] Neutrophils [#/volume] in Bl ood by Automated countOrdered By: Lolita Adorno on 03-09-2025 Neutrophils (Bld) [#/Vol] 3.9 10*3/uL 1.8-7.7 [facility] Comment on above: Performed By: #### C UU, ADDONUAPLUS #### [facility] [address] [place] [address] Neutrophils/100 WBC Auto (Bl d)Ordered By: Lolita Adorno on 03-09-2025 Neutrophils/100 WBC (Bld) Automated neutrophil % . [facility] Neutrophils/100 leukocytes i n Blood by Automated countOrdered By: Lolita Adorno on 03-09-2025 Neutrophils/100 WBC (Bld) 56.9 % . [facility] Comment on above: Performed By: #### C UU, OSCARONUAPLUS #### [facility] [address] [place] [address] No Panel InformationOrdered By: Lolita Adorno on 03-09-2025 Estimated GFR (CKD-EPI) 28.918 mL/Min [facility] Creatinine Clearance (Chem N/A [facility] Nucleated erythrocytes [Pres ence] in Blood by Automated countOrdered By: Lolita Adorno on 03-09-2025 Nucleated RBC Auto Ql (Bld) Nucleated erythrocytes [Presence] in Blood by Automated count 0-0.5 [facility] Nucleated RBC Auto Ql (Bld) 0.1 /100{WBC} 0-0.5 [facility] Platelet mean volume Auto (B ld) [Entitic vol]Ordered By: Lolita Adorno on 03-09-2025 Platelet mean volume (Bld) [Entitic vol] Platelet mean volume [Entitic volume] in Blood by Automated count 6.6-10.1 [facility] Platelet mean volume [Entiti c volume] in Blood by Automated countOrdered By: Lolita Adorno on 03-09-2025 Platelet mean volume (Bld) [Entitic vol] 8.7 fL 6.6-10.1 [facility] Comment on above: Performed By: #### C UU, ADDONUAPLUS #### [facility] [address] Platelets Auto (Bld) [#/Vol] Ordered By: Lolita Adorno on 03-09-2025 Platelets (Bld) [#/Vol] Platelets [#/vol ume] in Blood by Automated count 150-450 [facility] Platelets [#/volume] in Bloo d by Automated countOrdered By: Lolita Adorno on 03-09-2025 Platelets (Bld) [#/Vol] 161 10*3/uL 150-450 [facility] Comment on above: Performed By: #### C UU, OSCARONUAPLUS #### [facility] [address] [place] [address] [place] Potassium [Moles/volume] in Serum or PlasmaOrdered By: Lolita Adorno on 03-09-2025 Potassium [Moles/Vol] Potassium [Moles/v olume] in Serum or Plasma 3.5-5.1 [facility] Potassium [Moles/Vol] 4.4 mmol/L 3.5-5.1 [facility] Comment on above: Performed By: #### C UU, ADDONUAPLUS #### [facility] [address] [place] [address] [place] Protein [Mass/volume] in Ser um or PlasmaOrdered By: Lolita Adorno on 03-09-2025 Protein [Mass/Vol] Protein [Mass/volume ] in Serum or Plasma Low 6.4-8.9 [facility] Protein [Mass/Vol] 6.1 g/dL Low 6.4-8.9 [facility] Comment on above: Performed By: #### C MARILYN JONESPLUS #### [facility] [address] [place] [address] RBC Auto (Bld) [#/Vol]Ordere d By: Lolita Adorno on 03-09-2025 RBC (Bld) [#/Vol] Erythrocytes [#/volu me] in Blood by Automated count 3.90-5.60 [facility] Serum globulin measurement b y calculation (mass/volume)Ordered By: Lolita Adorno on 03-09-2025 Globulin (S) [Mass/Vol] 2.1 g/dL [facility] Comment on above: Performed By: #### C MARILYN JONESPLUS #### [facility] [address] [place] [address] Serum or plasma albumin/glob ulin mass ratioOrdered By: Lolita Adorno on 03-09-2025 Albumin/Globulin [Mass ratio] Serum or plasma albumin/globulin mass ratio [facility] Albumin/Globulin [Mass ratio] 1.9 {ratio} [facility] Comment on above: Performed By: #### C MARILYN JONESPLUS #### [facility] [address] [place] [address] Serum or plasma anion gap de terminationOrdered By: Loliat Adorno on 03-09-2025 Anion gap [Moles/Vol] Serum or plasma an ion gap determination 6.0-15.0 [facility] Anion gap [Moles/Vol] 9.2 mmol/L 6.0-15.0 [facility] Comment on above: Performed By: #### C MARILYN JONESPLUS #### [facility] [address] [place] [address] Serum or plasma total choles terol/high density lipoprotein (HDL) cholesterol mass ratOrdered By: Lolita Adorno on 03-09-2025 Cholesterol.total/Flavia sterol in HDL [Mass ratio] Serum or plasma total cholesterol/high density lipoprotein (HDL) cholesterol mass rat <5.0 [facility] Cholesterol.total/Flavia sterol in HDL [Mass ratio] 4.0 {ratio} <5.0 [facility] Comment on above: Result Comment: PERF ORMED BY: [place] [address] PATHOLOGIST [employer] WOOD JANG M.D. Performed By: #### C UU, ADDONUAPLUS #### [facility] [address] Sodium [Moles/volume] in Ser um or PlasmaOrdered By: Lolita Adorno on 03-09-2025 Sodium [Moles/Vol] Sodium [Moles/volume ] in Serum or Plasma 136-145 [facility] Sodium [Moles/Vol] 138 mmol/L 136-145 [facility] Comment on above: Performed By: #### C UU, ADDONUAPLUS #### [facility] [address] Triglyceride [Mass/volume] i n Serum or PlasmaOrdered By: Lolita Adorno on 03-09-2025 Triglyceride [Mass/Vol] Triglyceride [Mass/volume] in Serum or Plasma 0-149 [facility] Comment on above: TRIG ATP III CLASSIF ICATIONTRIG less than 150 mg/dL NormalTRIG 150-199 mg/dL Borderline highTRIG 200-500 mg/dL High TRIG greater than 500 mg/dL Very highStandard traceable to the Center for Disease Conrtrol and Prevention (CDC) test method. Triglyceride [Mass/Vol] 147 mg/dL 0-149 [facility] Comment on above: TRIG ATP III CLASSIF ICATIONTRIG less than 150 mg/dL NormalTRIG 150-199 mg/dL Borderline highTRIG 200-500 mg/dL High TRIG greater than 500 mg/dL Very highStandard traceable to the Center for Disease Conrtrol and Prevention (CDC) test method. Urea nitrogen [Mass/volume] in Serum or PlasmaOrdered By: Lolita Adorno on 03-09-2025 Urea nitrogen [Mass/Vol] Urea nitrogen [Mass/volume] in Serum or Plasma High 7-25 [facility] Urea nitrogen [Mass/Vol] 39 mg/dL High 7-25 [facility] Comment on above: Performed By: #### C OSCAR JONESELIZABENIGNO #### [facility] [address] WBC Auto (Bld) [#/Vol]Ordere d By: Lolita Adorno on 03-09-2025 WBC (Bld) [#/Vol] Leukocytes [#/volume ] in Blood by Automated count 4.1-10.5 [facility] HbA1c HPLC (Bld) [Mass fract ion]on 02-21-2025 HbA1c (Bld) [Mass fraction] Hemoglobin A1c/Hemoglobin.total in Blood by HPLC [facility] HbA1c (Bld) [Mass fraction] 9.5 % [facility] Albumin [Mass/volume] in Ser um or Plasma by Bromocresol green (BCG) dye binding methoOrdered By: Nette Holden on 12-13-2024 Albumin BCG dye [Mass/Vol] Albumin [Mass/volume] in Serum or Plasma by Bromocresol green (BCG) dye binding metho 3.5-5.7 [facility] Appearance of UrineOrdered B y: Nette Holden on 12-13-2024 Appearance (U) Urine appearance Clear [facility] Bacteria [Presence] in Urine by AutomatedOrdered By: Nette Holden on 12-13-2024 Bacteria Auto Ql (U) Bacteria [Presence] in Urine by Automated None Seen [facility] Bilirubin Test strip Ql (U)O rdered By: Nette Holden on 12-13-2024 Bilirubin Ql (U) Bilirubin.total [Presence] in Urine by Test strip Negative [facility] Calcium [Mass/volume] in Ser um or PlasmaOrdered By: Nette Adina on 12-13-2024 Calcium [Mass/Vol] Calcium [Mass/volume ] in Serum or Plasma 8.6-10.3 [facility] Carbon dioxide, total [Moles /volume] in Serum or PlasmaOrdered By: Nette Adina on 12-13-2024 CO2 [Moles/Vol] Carbon dioxide, tota l [Moles/volume] in Serum or Plasma 21.0-31.0 [facility] Chloride [Moles/volume] in S antolin or PlasmaOrdered By: Nette Adina on 12-13-2024 Chloride [Moles/Vol] Chloride [Moles/vol ume] in Serum or Plasma 98-107 [facility] Color Auto (U)Ordered By: Ab emanuel Holden on 12-13-2024 Color (U) Color of Urine by Auto Yellow [facility] Creatinine [Mass/volume] in Serum or PlasmaOrdered By: Nette Adina on 12-13-2024 Creatinine [Mass/Vol] Creatinine [Mass/v olume] in Serum or Plasma High 0.70-1.30 [facility] Creatinine [Mass/volume] in UrineOrdered By: Nette Adina on 12-13-2024 Creatinine (U) [Mass/Vol] Creatinine [Mass/volume] in Urine [facility] Comment on above: No reference range e stablished Dipstick and Microscopicon 0 12-13-2024 Appearance (U) Clear Normal Clear [facility] Comment on above: Order Comment: Name Collection Type:: Clean-Voided Midstream Performed By: #### G LULS #### Point of Care testing , Bacteria,Urine None Seen Normal None Seen [facility] Comment on above: Order Comment: Name Collection Type:: Clean-Voided Midstream Performed By: #### G LULS #### Point of Care testing , Bilirubin,Urine Negative Normal Negative [facility] Comment on above: Order Comment: Name Collection Type:: Clean-Voided Midstream Performed By: #### G LULS #### Point of Care testing , Color (U) Light-Yellow Normal Yellow [facility] Comment on above: Order Comment: Name Collection Type:: Clean-Voided Midstream Performed By: #### G LULS #### Point of Care testing , Glucose Ql (U) 70 mg/dL High Normal [facility] Comment on above: Order Comment: Name Collection Type:: Clean-Voided Midstream Performed By: #### G LULS #### Point of Care testing , Hyaline Casts,Urine 9-19 High 0-8 [facility] Comment on above: Order Comment: Name Collection Type:: Clean-Voided Midstream Result Comment: PERF ORMED BY: [facility] [address] PATHOLOGIST [employer] SONJA FALLON M.D. Performed By: #### G LULS #### Point of Care testing , Ketones Ql (U) Negative Normal Negative [facility] Comment on above: Order Comment: Name Collection Type:: Clean-Voided Midstream Performed By: #### G LULS #### Point of Care testing , Leukocyte esterase Test strip Ql (U) Negative Normal Negative [facility] Comment on above: Order Comment: Name Collection Type:: Clean-Voided Midstream Performed By: #### G LULS #### Point of Care testing , Nitrite,Urine Negative Normal Negative [facility] Comment on above: Order Comment: Name Collection Type:: Clean-Voided Midstream Performed By: #### G LULS #### Point of Care testing , Occult Blood,Urine Negative Normal Negative [facility] Comment on above: Order Comment: Name Collection Type:: Clean-Voided Midstream Performed By: #### G LULS #### Point of Care testing , pH (U) 5.5 [pH] Normal 5.0-9.0 [facility] Comment on above: Order Comment: Name Collection Type:: Clean-Voided Midstream Performed By: #### G LULS #### Point of Care testing , Protein (U) [Mass/Vol] 20 mg/dL High Negative [facility] Comment on above: Order Comment: Name Collection Type:: Clean-Voided Midstream Performed By: #### G LULS #### Point of Care testing , RBC,Urine 1-2 Normal 0-4 [facility] Comment on above: Order Comment: Name Collection Type:: Clean-Voided Midstream Performed By: #### G LULS #### Point of Care testing , Specificy [place],Urine 1.014 Normal 1.00 1-1.03 0 [facility] Comment on above: Order Comment: Name Collection Type:: Clean-Voided Midstream Performed By: #### G LULS #### Point of Care testing , Squamous Epithelial Cell,Urine 1-2 Normal 0-2 [facility] Comment on above: Order Comment: Name Collection Type:: Clean-Voided Midstream Performed By: #### G LULS #### Point of Care testing , Urobilinogen,Urine Normal Normal Normal [facility] Comment on above: Order Comment: Name Collection Type:: Clean-Voided Midstream Performed By: #### G LULS #### Point of Care testing , WBC,Urine None Seen Normal 0-4 [facility] Comment on above: Order Comment: Name Collection Type:: Clean-Voided Midstream Performed By: #### G LULS #### Point of Care testing , Epithelial cells.squamous [# /area] in Urine sediment by Automated countOrdered By: Nette Burnettr on 12-13-2024 Epithelial cells.squamous Auto (Urine sed) [#/Area] Epithelial cells.squamous [#/area] in Urine sediment by Automated count 0-2 [facility] Erythrocyte distribution wid th Auto (RBC) [Ratio]Ordered By: Nette Adina on 12-13-2024 Erythrocyte distribution width (RBC) [Ratio] Erythrocyte distribution width [Ratio] by Automated count 12.0-14.8 [facility] Erythrocytes [#/area] in Uri ne sediment by Automated countOrdered By: Nette Adina on 12-13-2024 RBC Auto (Urine sed) [#/Area] Erythrocytes [#/area] in Urine sediment by Automated count 0-4 [facility] Ferritinon 12-13-2024 Ferritin [Mass/Vol] 72.2 ng/mL Normal 23.9-336.2 [facility] Comment on above: Performed By: #### G LULS #### Point of Care testing , Ferritin [Mass/volume] in Se rum or PlasmaOrdered By: Nette Adina on 12-13-2024 Ferritin [Mass/Vol] Ferritin [Mass/volum e] in Serum or Plasma 23.9-336.2 [facility] Glucose [Mass/volume] in Ser um or PlasmaOrdered By: Nette Holden on 12-13-2024 Glucose [Mass/Vol] Glucose [Mass/volume ] in Serum or Plasma High 70-100 [facility] Comment on above: ADA recommended refe rence rangeRandom Glucose Reference Range is dependent on time and content of last meal. Glucose of more than 200 mg/dL in a nonstressed, ambulatory subject supports the diagnosis of Diabetes Mellitus. Glucose [Mass/volume] in Uri ne by Test stripOrdered By: Nette Holden on 12-13-2024 Glucose Test strip (U) [Mass/Vol] Glucose [Mass/volume] in Urine by Test strip High Normal [facility] Hematocrit Auto (Bld) [Volum e fraction]Ordered By: Nette Holden on 12-13-2024 Hematocrit (Bld) [Volume fraction] Hematocrit [Volume Fraction] of Blood by Automated count Low 38.8-50.0 [facility] Hemoglobin Test strip Ql (U) Ordered By: Nette Holden on 12-13-2024 Hemoglobin Ql (U) Hemoglobin [Presence ] in Urine by Test strip Negative [facility] Hemoglobin [Mass/volume] in BloodOrdered By: Nette Holden on 12-13-2024 Hemoglobin (Bld) [Mass/Vol] Hemoglobin [Mass/volume] in Blood Low 13.0-17.0 [facility] Hemogram CBC Without Diffon 12-13-2024 Erythrocyte distribution width (RBC) [Ratio] 13.8 % Normal 12.0-14.8 [facility] Comment on above: Performed By: #### G LULS #### Point of Care testing , Hematocrit (Bld) [Volume fraction] 34.4 % Low 38.8-50.0 [facility] Comment on above: Performed By: #### G LULS #### Point of Care testing , Hemoglobin (Bld) [Mass/Vol] 11.5 g/dL Low 13.0-17.0 [facility] Comment on above: Performed By: #### G LULS #### Point of Care testing , MCH (RBC) [Entitic mass] 28.3 pg Normal 27.5-35.2 [facility] Comment on above: Performed By: #### G LULS #### Point of Care testing , MCV (RBC) [Entitic vol] 85.0 fL Normal 83.5-101 [facility] Comment on above: Performed By: #### G LULS #### Point of Care testing , Mean Corpuscular HGB Conc 33.3 g/dL Normal 32.5-35.6 [facility] Comment on above: Performed By: #### G LULS #### Point of Care testing , Platelet mean volume (Bld) [Entitic vol] 8.8 fL Normal 6.6-10.1 [facility] Comment on above: Result Comment: PERF ORMED BY: [facility] [address] [place] [address] PATHOLOGIST [employer] WORK[employer] SONJA FALLON M.D. Performed By: #### G LULS #### Point of Care testing , Platelets (Bld) [#/Vol] 204 10*3/uL Normal 150-450 [facility] Comment on above: Performed By: #### G LULS #### Point of Care testing , RBC (Bld) [#/Vol] 4.05 10*6/uL Normal 3.90-5.60 [facility] Comment on above: Performed By: #### G LULS #### Point of Care testing , WBC (Bld) [#/Vol] 7.5 10*3/uL Normal 4.1-10.5 [facility] Comment on above: Performed By: #### G LULS #### Point of Care testing , Hyaline casts [#/area] in Ur ine sediment by Automated countOrdered By: Nette Holden on 12-13-2024 Hyaline casts Auto (Urine sed) [#/Area] Hyaline casts [#/area] in Urine sediment by Automated count High 0-8 [facility] Iron [Mass/volume] in Serum or PlasmaOrdered By: Nette Holden on 12-13-2024 Iron [Mass/Vol] Iron [Mass/volume] i n Serum or Plasma 50-212 [facility] Iron and TIBC Profileon 12-04 0-2024 % Iron Saturation 21.0 % Normal 20-50 [facility] Comment on above: Performed By: #### G LULS #### Point of Care testing , Iron [Mass/Vol] 63 ug/dL Normal 50-212 [facility] Comment on above: Performed By: #### G LULS #### Point of Care testing , Total Iron Binding Capacity 300 ug/dL Normal 255-450 [facility] Comment on above: Performed By: #### G LULS #### Point of Care testing , Transferrin [Mass/Vol] 214 mg/dL Normal 203-362 [facility] Comment on above: Performed By: #### G LULS #### Point of Care testing , Ketones Test strip Ql (U)Ord ered By: Nette Holden on 12-13-2024 Ketones Ql (U) Ketones [Presence] i n Urine by Test strip Negative [facility] Leukocyte esterase [Presence ] in Urine by Test stripOrdered By: Nette Holden on 12-13-2024 Leukocyte esterase Test strip Ql (U) Leukocyte esterase [Presence] in Urine by Test strip Negative [facility] Leukocytes [#/area] in Urine sediment by Automated countOrdered By: Nette Holden on 12-13-2024 WBC Auto (Urine sed) [#/Area] Leukocytes [#/area] in Urine sediment by Automated count 0-4 [facility] Leukocytes [#/volume] correc ruben for nucleated erythrocytes in Blood by Automated counOrdered By: Nette Holden on 12-13-2024 WBC corrected for nucl RBC Auto (Bld) [#/Vol] Leukocytes [#/volume] corrected for nucleated erythrocytes in Blood by Automated coun 4.1-10.5 [facility] MCH Auto (RBC) [Entitic mass ]Ordered By: Nette Holden on 12-13-2024 MCH (RBC) [Entitic mass] MCH [Entitic mass] by Automated count 27.5-35.2 [facility] MCHC Auto (RBC) [Mass/Vol]Or dered By: Nette Holden on 12-13-2024 MCHC (RBC) [Mass/Vol] MCHC [Mass/volume] by Automated count 32.5-35.6 [facility] MCV Auto (RBC) [Entitic vol] Ordered By: Nette Holden on 12-13-2024 MCV (RBC) [Entitic vol] MCV [Entitic vol ume] by Automated count 83.5-101 [facility] Magnesiumon 12-13-2024 Magnesium [Mass/Vol] 2.1 mg/dL Normal 1.9-2.7 [facility] Comment on above: Performed By: #### G LULS #### Point of Care testing , Magnesium [Mass/volume] in S antolin or PlasmaOrdered By: Nette Holden on 12-13-2024 Magnesium [Mass/Vol] Magnesium [Mass/vol ume] in Serum or Plasma 1.9-2.7 [facility] Nitrite Test strip Ql (U)Ord ered By: Nette Holden on 12-13-2024 Nitrite Ql (U) Nitrite [Presence] i n Urine by Test strip Negative [facility] No Panel InformationOrdered By: Nette Holden on 12-13-2024 Estimated GFR (CKD-EPI) 28.042 mL/Min [facility] Creatinine Clearance (Chem N/A [facility] 28.042 mL/Min [facility] N/A [facility] Parathyrin.intact [Mass/volu me] in Serum or PlasmaOrdered By: Nette Holden on 12-13-2024 Parathyrin.intact [Mass/Vol] Parathyrin.intact [Mass/volume] in Serum or Plasma High 12-88 [facility] Parathyroid Hormone Intacton 12-13-2024 Parathyroid Hormone Intact 116.6 pg/mL High 1288 [facility] Comment on above: Result Comment: PERF ORMED BY: [facility] [address] [place] [address] PATHOLOGIST [employer] WORKER SONJA FALLON M.D. Performed By: #### G LUWALE #### Point of Care testing , Phosphate [Mass/volume] in S antolin or PlasmaOrdered By: Nette Holden on 12-13-2024 Phosphate [Mass/Vol] Phosphate [Mass/vol ume] in Serum or Plasma 2.5-4.5 [facility] Platelet mean volume Auto (B ld) [Entitic vol]Ordered By: Nette Holden on 12-13-2024 Platelet mean volume (Bld) [Entitic vol] Platelet mean volume [Entitic volume] in Blood by Automated count 6.6-10.1 [facility] Platelets Auto (Bld) [#/Vol] Ordered By: Nette Holden on 12-13-2024 Platelets (Bld) [#/Vol] Platelets [#/vol ume] in Blood by Automated count 150-450 [facility] Potassium [Moles/volume] in Serum or PlasmaOrdered By: Nette Holden on 12-13-2024 Potassium [Moles/Vol] Potassium [Moles/v olume] in Serum or Plasma 3.5-5.1 [facility] Protein Creat Ratio Ur Rando mon 12-13-2024 Creatinine, Urine (Random) 94.00 mg/dL Normal [facility] Comment on above: Result Comment: No r eference range established Performed By: #### G LULS #### Point of Care testing , Protein (U) [Mass/Vol] 36 mg/dL High 0-9 [facility] Comment on above: Performed By: #### G LULS #### Point of Care testing , Urine Protein/Creatinine Ratio 383 mg/g{Cre} High 0-200 [facility] Comment on above: Result Comment: PERF ORMED BY: [address] [place] [address] PATHOLOGIST [employer] WORKER SONJA FALLON M.D. Performed By: #### G LULS #### Point of Care testing , Protein Test strip (U) [Mass /Vol]Ordered By: Nette Holden on 12-13-2024 Protein (U) [Mass/Vol] Protein [Mass/vol ume] in Urine by Test strip High Negative [facility] Protein [Mass/volume] in Uri neOrdered By: Nette Holden on 12-13-2024 Protein (U) [Mass/Vol] Protein [Mass/vol ume] in Urine High 0-9 [facility] RBC Auto (Bld) [#/Vol]Ordere d By: Nette Holden on 12-13-2024 RBC (Bld) [#/Vol] Erythrocytes [#/volu me] in Blood by Automated count 3.90-5.60 [facility] Renal Function Panelon 12-13 Albumin [Mass/Vol] 4.0 g/dL Normal 3.5-5.7 [facility] Comment on above: Performed By: #### G LULS #### Point of Care testing , Anion gap [Moles/Vol] 9.0 mmol/L Normal 6.0-15.0 [facility] Comment on above: Performed By: #### G LULS #### Point of Care testing , Calcium [Mass/Vol] 9.2 mg/dL Normal 8.6-10.3 [facility] Comment on above: Performed By: #### G LULS #### Point of Care testing , Chloride [Moles/Vol] 104 mmol/L Normal 98-107 [facility] Comment on above: Performed By: #### G LULS #### Point of Care testing , CO2 [Moles/Vol] 30.1 mmol/L Normal 21.0-31.0 [facility] Comment on above: Performed By: #### G LULS #### Point of Care testing , Creatinine [Mass/Vol] 2.37 mg/dL High 0.70-1.30 [facility] Comment on above: Performed By: #### G LULS #### Point of Care testing , Estimated GFR 28.042 mL/Min Normal [facility] Comment on above: Performed By: #### G LULS #### Point of Care testing , Glucose [Mass/Vol] 197 mg/dL High 70-100 [facility] Comment on above: Result Comment: [place] om Glucose Reference Range is dependent on time and content of last meal. Glucose of more than 200 mg/dL in a nonstressed, ambulatory subject supports the diagnosis of Diabetes Mellitus. ADA recommended reference range Performed By: #### G LULS #### Point of Care testing , Phosphate [Mass/Vol] 3.3 mg/dL Normal 2.5-4.5 [facility] Comment on above: Performed By: #### G LULS #### Point of Care testing , Potassium [Moles/Vol] 4.1 mmol/L Normal 3.5-5.1 [facility] Comment on above: Performed By: #### G LULS #### Point of Care testing , Sodium [Moles/Vol] 139 mmol/L Normal 136-145 [facility] Comment on above: Performed By: #### G LULS #### Point of Care testing , Urea nitrogen [Mass/Vol] 38 mg/dL High 7-25 [facility] Comment on above: Performed By: #### G LULS #### Point of Care testing , Serum or plasma anion gap de terminationOrdered By: Nette Holden on 12-13-2024 Anion gap [Moles/Vol] Serum or plasma an ion gap determination 6.0-15.0 [facility] Serum or plasma iron binding capacity measurement (mass/volume)Ordered By: Nette Holden on 12-13-2024 Iron binding capacity [Mass/Vol] Iron binding capacity [Mass/volume] in Serum or Plasma 255-450 [facility] Serum or plasma iron saturat ion measurement (mass fraction)Ordered By: Nette Holden on 12-13-2024 Iron saturation [Mass fraction] Iron saturation [Mass Fraction] in Serum or Plasma 20-50 [facility] Sodium [Moles/volume] in Ser um or PlasmaOrdered By: Nette Holden on 12-13-2024 Sodium [Moles/Vol] Sodium [Moles/volume ] in Serum or Plasma 136-145 [facility] Specific gravity Test strip (U) [Rel density]Ordered By: Nette Holden on 12-13-2024 Specific gravity (U) [Rel density] Specific gravity of Urine by Test strip 1.001-1.03 0 [facility] Transferrin [Mass/volume] in Serum or PlasmaOrdered By: Nette Holden on 12-13-2024 Transferrin [Mass/Vol] Transferrin [Mass/volume] in Serum or Plasma 203-362 [facility] Urate [Mass/volume] in Serum or PlasmaOrdered By: Nette Holden on 12-13-2024 Urate [Mass/Vol] Urate [Mass/volume] in Serum or Plasma High 4.4-7.6 [facility] Urea nitrogen [Mass/volume] in Serum or PlasmaOrdered By: Nette Holden on 12-13-2024 Urea nitrogen [Mass/Vol] Urea nitrogen [Mass/volume] in Serum or Plasma High 7-25 [facility] Uric Acidon 12-13-2024 Urate [Mass/Vol] 8.0 mg/dL High 4.4-7.6 [facility] Comment on above: Performed By: #### G LULS #### Point of Care testing , Urine protein/creatinine rat ioOrdered By: Nette Holden on 12-13-2024 Protein/Creatinine (U) [Ratio] Urine protein/creatinine ratio High 0-200 [facility] Urobilinogen Test strip (U) [Mass/Vol]Ordered By: Nette Holden on 12-13-2024 Urobilinogen (U) [Mass/Vol] Urobilinogen [Mass/volume] in Urine by Test strip Normal [facility] Vitamin D 25 Hydroxy Totalon 12-13-2024 Vitamin D 25 Hydroxy Total 60.0 ng/mL Normal 30-100 [facility] Comment on above: Result Comment: [place] MIN D STATUS 25([place])VITAMIN D RANGE (ng/mL) Deficient <20 Insufficient 20 to <30 Sufficient 30 to 100 Reference: Jovan MF,Jazmyn NC, Darrion MARKS, et al. Evaluation,treatment, and prevention of vitamin D deficiency; an Endocrine Society clinical practice guideline. JCEM. 2010; 96(7):1911-30. PERFORMED BY: [place] [address] [place] [address] PATHOLOGIST [employer] WORKER SONJA FALLON M.D. Performed By: #### G LULS #### Point of Care testing , Vitamin D+Metabolites [Mass/ volume] in Serum or PlasmaOrdered By: Nette Holden on 12-13-2024 Vitamin D+Metabolites [Mass/Vol] Vitamin D+Metabolites [Mass/volume] in Serum or Plasma 30-100 [facility] Comment on above: VITAMIN D STATUS 25( [place])VITAMIN D RANGE (ng/mL) Deficient <20 Insufficient 20 to <30Sufficient 30 to 100Reference: Jovan MF,Jazmyn NC, Darrion MARKS, et al. Evaluation,treatment, and prevention of vitamin D deficiency; an Endocrine Society clinical practice guideline. JCEM. 2010; 96(7):1911-30. pH Test strip (U)Ordered By: Nette Holden on 12-13-2024 pH (U) pH of Urine by Test strip 5.0-9.0 [facility] Mammography reportOrdered By : Rob Chung on 11-23-2024 Diagnostic imaging study [facility] US breast LT limitedon 11-23 US breast LT limited [facility] [place] [address] Mammography Report Signed Patient: Gage Lugo MR#: [id number] : 1950 Acct:[id number] Age/Sex: 74 / M ADM Date: 11/23/24 Loc: IN Room: Type: [facility] Attending Dr: Lolita Adorno DO Copies to: Lolita Adorno DO Ordering Provider: Lolita Adorno DO Date of Service: 11/23/24 US/US breast LT limited: N62 - Hypertrophy of breast ([id number]) MM/MM diagnostic mammo BI w/CAD: N62 - Hypertrophy of breast Revised document-correction BILATERAL Screening Full Field digital mammogram with 3-D imaging. Full field digital CC and MLO imaging performed. CAD utilized. COMPARISON: None HISTORY: Bilateral gynecomastia BREAST COMPOSITION: The breast parenchyma is heterogeneously dense. Asymmetrical gynecomastia greater on the left BREAST CALCIFICATIONS: Benign calcifications present. VASCULAR CALCIFICATIONS: None ARCHITECTURAL DISTORTION: None BREAST NODULE: None AXILLARY LYMPH NODES: Normal POSTSURGICAL CHANGES: None Targeted left breast ultrasound with right obtained for comparison and no focal mass identified. Heterogeneous breast parenchyma bilaterally greater on the left. Consistent with gynecomastia MM/MM diagnostic mammo BI w/CAD IMPRESSION: Asymmetrical bilateral gynecomastia greater on the left. No mammographic evidence of malignancy. No focal abnormality with targeted breast ultrasound for a male patient with gynecomastia, yearly follow-up assessment not indicated unless risk factors or condition changes dictate otherwise. RESULT CODE: 2 Benign Findings(s) DENSITY CODE: 2 (approximately 25-50% glandular) FOLLOW UP: 1YR THE FALSE-NEGATIVE RATE OF MAMMOGRAPHY IS APPROXIMATELY 10%. IMAGING OF A PALPABLE ABNORMALITY MUST BE BASED ON CLINICAL GROUNDS. PATIENT WAS ENTERED INTO A REMINDER SYSTEM WITH A TARGET DUE DATE FOR THE NEXT MAMMOGRAM. Impression dictated by: Rob Chung M.D.11/23/2024 1:10 PM Dictation Location: [facility] Transcribed By: [facility] 11/23/24 1310 Dictated By: Rob Chung DO 11/23/24 1054 Signed By: 11/23/24 1310 Normal [facility] HbA1c HPLC (Bld) [Mass fract ion]on 11-22-2024 HbA1c (Bld) [Mass fraction] Hemoglobin A1c/Hemoglobin.total in Blood by HPLC [facility] Estimated glomerular filtrat ion rate (GFR) non- Americanon 11-11-2024 GFR/1.73 sq M.predicted among non-blacks MDRD (S/P/Bld) [Vol rate/Area] Estimated glomerular filtration rate (GFR) non- Low >=60 mL/min/1.7 3m 2 [facility] No Panel Informationon 11-11 3.7 g/dL 3.4-5.0 [facility] 16.2 [facility] 49.0 mg/dL High 7.0-18.0 [facility] 9.0 mg/dL 8.5-10.1 [facility] 102 mmol/L 98-107 [facility] 27.4 mmol/L 21.0-32.0 [facility] 3.02 mg/dL High 0.70-1.30 [facility] 25 Low >=60 mL/min/1.7 3m 2 [facility] 256 mg/dL High 74-106 [facility] 4.9 mmol/L 3.5-5.1 [facility] 139 mmol/L 136-145 [facility] 4.4 mg/dL 2.6-4.7 [facility] Serum or plasma anion gap de terminationon 11-11-2024 Anion gap [Moles/Vol] Serum or plasma an ion gap determination [facility] Estimated glomerular filtrat ion rate (GFR) non- Americanon 11-04-2024 GFR/1.73 sq M.predicted among non-blacks MDRD (S/P/Bld) [Vol rate/Area] Estimated glomerular filtration rate (GFR) non- Low >=60 mL/min/1.7 3m 2 [facility] No Panel Informationon 11-04 3.7 g/dL 3.4-5.0 [facility] 18.7 [facility] 46.0 mg/dL High 7.0-18.0 [facility] 9.3 mg/dL 8.5-10.1 [facility] 105 mmol/L 98-107 [facility] 28.5 mmol/L 21.0-32.0 [facility] 2.46 mg/dL High 0.70-1.30 [facility] 31 Low >=60 mL/min/1.7 3m 2 [facility] 183 mg/dL High 74-106 [facility] 4.5 mmol/L 3.5-5.1 [facility] 140 mmol/L 136-145 [facility] 2.8 mg/dL 2.6-4.7 [facility] Serum or plasma anion gap de terminationon 11-04-2024 Anion gap [Moles/Vol] Serum or plasma an ion gap determination [facility] Estimated glomerular filtrat ion rate (GFR) non- Americanon 11-01-2024 GFR/1.73 sq M.predicted among non-blacks MDRD (S/P/Bld) [Vol rate/Area] Estimated glomerular filtration rate (GFR) non- Low >=60 mL/min/1.7 3m 2 [facility] No Panel Informationon 11-01 2.0 mg/dL 1.8-2.4 [facility] 3.6 g/dL 3.4-5.0 [facility] 19.4 [facility] 53.0 mg/dL High 7.0-18.0 [facility] 9.3 mg/dL 8.5-10.1 [facility] 101 mmol/L 98-107 [facility] 30.8 mmol/L 21.0-32.0 [facility] 2.73 mg/dL High 0.70-1.30 [facility] 28 Low >=60 mL/min/1.7 3m 2 [facility] 185 mg/dL High 74-106 [facility] 2.9 mmol/L Critically low 3.5-5.1 [facility] 139 mmol/L 136-145 [facility] 4.0 mg/dL 2.6-4.7 [facility] Serum or plasma anion gap de terminationon 11-01-2024 Anion gap [Moles/Vol] Serum or plasma an ion gap determination [facility] Estimated glomerular filtrat ion rate (GFR) non- Americanon 10-29-2024 GFR/1.73 sq M.predicted among non-blacks MDRD (S/P/Bld) [Vol rate/Area] Estimated glomerular filtration rate (GFR) non- Low >=60 mL/min/1.7 3m 2 [facility] No Panel Informationon 10-29 2.1 mg/dL 1.8-2.4 [facility] 3.5 g/dL 3.4-5.0 [facility] 19.0 [facility] 54.0 mg/dL High 7.0-18.0 [facility] 8.8 mg/dL 8.5-10.1 [facility] 103 mmol/L 98-107 [facility] 30.8 mmol/L 21.0-32.0 [facility] 2.84 mg/dL High 0.70-1.30 [facility] 27 Low >=60 mL/min/1.7 3m 2 [facility] 232 mg/dL High 74-106 [facility] 2.8 mmol/L Critically low 3.5-5.1 [facility] 142 mmol/L 136-145 [facility] 3.4 mg/dL 2.6-4.7 [facility] Serum or plasma anion gap de terminationon 10-29-2024 Anion gap [Moles/Vol] Serum or plasma an ion gap determination [facility] Potassiumon 10-25-2024 Potassium [Moles/Vol] 3.2 mmol/L Low 3.5-5.1 [facility] Comment on above: Result Comment: PERF ORMED BY: [facility] [address] [place] [address] PATHOLOGIST [employer] WORK[employer] SONJA FALLON M.D. Performed By: #### G LULS #### Point of Care testing , Potassium [Moles/volume] in Serum or PlasmaOrdered By: Lolita Adorno on 10-25-2024 Potassium [Moles/Vol] Potassium [Moles/v olume] in Serum or Plasma Low 3.5-5.1 [facility] Alanine aminotransferase [En zymatic activity/volume] in Serum or PlasmaOrdered By: Lolita Adorno on 10-20-2024 ALT [Catalytic activity/Vol] Alanine aminotransferase [Enzymatic activity/volume] in Serum or Plasma 7-52 [facility] Albumin [Mass/volume] in Ser um or Plasma by Bromocresol green (BCG) dye binding methoOrdered By: Lolita Adorno on 10-20-2024 Albumin BCG dye [Mass/Vol] Albumin [Mass/volume] in Serum or Plasma by Bromocresol green (BCG) dye binding metho 3.5-5.7 [facility] Alkaline phosphatase [Enzyma tic activity/volume] in Serum or PlasmaOrdered By: Lolita Adorno on 10-20-2024 ALP [Catalytic activity/Vol] Alkaline phosphatase [Enzymatic activity/volume] in Serum or Plasma 34-104 [facility] Aspartate aminotransferase [ Enzymatic activity/volume] in Serum or PlasmaOrdered By: Lolita Adorno on 10-20-2024 AST [Catalytic activity/Vol] Aspartate aminotransferase [Enzymatic activity/volume] in Serum or Plasma 13-39 [facility] Basophils Auto (Bld) [#/Vol] Ordered By: Lolita Adorno on 10-20-2024 Basophils (Bld) [#/Vol] Automated basophil count 0.0-0.2 [facility] Basophils/100 WBC Auto (Bld) Ordered By: Lolita Adorno on 10-20-2024 Basophils/100 WBC (Bld) Automated basophil % . [facility] Bilirubin.total [Mass/volume ] in Serum or PlasmaOrdered By: Lolita Adorno on 10-20-2024 Bilirubin [Mass/Vol] Bilirubin.total [Mass/volume] in Serum or Plasma 0.3-1.0 [facility] Calcium [Mass/volume] in Ser um or PlasmaOrdered By: Lolita Adorno on 10-20-2024 Calcium [Mass/Vol] Calcium [Mass/volume ] in Serum or Plasma 8.6-10.3 [facility] Carbon dioxide, total [Moles /volume] in Serum or PlasmaOrdered By: Lolita Kyree on 10-20-2024 CO2 [Moles/Vol] Carbon dioxide, tota l [Moles/volume] in Serum or Plasma 21.0-31.0 [facility] Chloride [Moles/volume] in S antolin or PlasmaOrdered By: Lolita Adorno on 10-20-2024 Chloride [Moles/Vol] Chloride [Moles/vol ume] in Serum or Plasma 98-107 [facility] Complete Blood Count Auto Di ffon 10-20-2024 Basophils (Bld) [#/Vol] 0.0 10*3/uL Normal 0.0-0.2 [facility] Comment on above: Result Comment: PERF ORMED BY: [address] [place] [address] PATHOLOGIST GLASS WORKER SONJA FALLON M.D. Performed By: #### C UU, ADDONUAPLUS #### [facility] [address] Basophils/100 WBC (Bld) 0.4 % Normal . [facility] Comment on above: Performed By: #### C UU, ADDONUAPLUS #### [facility] [address] [place] [address] [place] Eosinophils (Bld) [#/Vol] 0.3 10*3/uL Normal 0.0-0.45 [facility] Comment on above: Performed By: #### C UU, ADDONUAPLUS #### [address] Eosinophils/100 WBC (Bld) 2.8 % Normal . [facility] Comment on above: Performed By: #### C UU, ADDONUAPLUS #### [address] Erythrocyte distribution width (RBC) [Ratio] 13.2 % Normal 12.0-14.8 [facility] Comment on above: Performed By: #### C UU, ADDONUAPLUS #### [address] Hematocrit (Bld) [Volume fraction] 36.0 % Low 38.8-50.0 [facility] Comment on above: Performed By: #### C UU, ADDONUAPLUS #### [address] Hemoglobin (Bld) [Mass/Vol] 12.2 g/dL Low 13.0-17.0 [facility] Comment on above: Performed By: #### C UU, ADDONUAPLUS #### [address] Lymphocytes (Bld) [#/Vol] 2.2 10*3/uL Normal 1.00-4.8 [facility] Comment on above: Performed By: #### C UU, ADDONUAPLUS #### [address] Lymphocytes/100 WBC (Bld) 21.6 % Normal . [facility] Comment on above: Performed By: #### C UU, ADDONUAPLUS #### [address] MCH (RBC) [Entitic mass] 27.8 pg Normal 27.5-35.2 [facility] Comment on above: Performed By: #### C UU, ADDONUAPLUS #### [place] [address] [place] MCV (RBC) [Entitic vol] 82.3 fL Low 83.5-101 [facility] Comment on above: Performed By: #### C UU, ADDONUAPLUS #### [address] Mean Corpuscular HGB Conc 33.8 g/dL Normal 32.5-35.6 [facility] Comment on above: Performed By: #### C UU, ADDONUAPLUS #### [address] Monocytes (Bld) [#/Vol] 0.8 10*3/uL Normal 0.0-0.8 [facility] Comment on above: Performed By: #### C UU, ADDONUAPLUS #### [address] Monocytes/100 WBC (Bld) 8.1 % Normal . [facility] Comment on above: Performed By: #### C UU, ADDONUAPLUS #### [address] Neutrophils (Bld) [#/Vol] 7.0 10*3/uL Normal 1.8-7.7 [facility] Comment on above: Performed By: #### C UU, ADDONUAPLUS #### [address] Neutrophils/100 WBC (Bld) 67.1 % Normal . [facility] Comment on above: Performed By: #### C UU, ADDONUAPLUS #### [address] NRBC% 0.1 /100{WBC} Normal 0-0.5 [facility] Comment on above: Performed By: #### C UU, ADDONUAPLUS #### [address] Platelet mean volume (Bld) [Entitic vol] 9.1 fL Normal 6.6-10.1 [facility] Comment on above: Performed By: #### C UU, ADDONUAPLUS #### [address] Platelets (Bld) [#/Vol] 194 10*3/uL Normal 150-450 [facility] Comment on above: Performed By: #### C UU, ADDONUAPLUS #### [address] RBC (Bld) [#/Vol] 4.38 10*6/uL Normal 3.90-5.60 [facility] Comment on above: Performed By: #### C UU, ADDONUAPLUS #### [address] WBC (Bld) [#/Vol] 10.4 10*3/uL Normal 4.1-10.5 [facility] Comment on above: Performed By: #### C UU, ADDONUAPLUS #### [address] Comprehensive Metabolic Pane [facility] 10-20-2024 Albumin [Mass/Vol] 4.3 g/dL Normal 3.5-5.7 [facility] Comment on above: Performed By: #### C UU, ADDONUAPLUS #### [address] Albumin/Globulin [Mass ratio] 1.7 {ratio} Normal [facility] Comment on above: Performed By: #### C UU, ADDONUAPLUS #### [address] ALP [Catalytic activity/Vol] 87 U/L Normal 34-104 [facility] Comment on above: Result Comment: PERF ORMED BY: [place] [address] PATHOLOGIST GLASS WORKER SONJA FALLON M.D. Performed By: #### C UU, ADDONUAPLUS #### [address] ALT [Catalytic activity/Vol] 10 U/L Normal 7-52 [facility] Comment on above: Performed By: #### C UU, ADDONUAPLUS #### [facility] [address] [place] [address] Anion gap [Moles/Vol] 14.8 mmol/L Normal 6.0-15.0 [facility] Comment on above: Performed By: #### C UU, ADDONUAPLUS #### [address] AST [Catalytic activity/Vol] 17 U/L Normal 13-39 [facility] Comment on above: Performed By: #### C UU, ADDONUAPLUS #### [address] Bilirubin [Mass/Vol] 0.8 mg/dL Normal 0.3-1.0 [facility] Comment on above: Performed By: #### C UU, ADDONUAPLUS #### [place] [address] [place] Calcium [Mass/Vol] 9.3 mg/dL Normal 8.6-10.3 [facility] Comment on above: Performed By: #### C UU, ADDONUAPLUS #### [place] [address] [place] Chloride [Moles/Vol] 99 mmol/L Normal 98-107 [facility] Comment on above: Performed By: #### C UU, ADDONUAPLUS #### [place] [address] [place] CO2 [Moles/Vol] 29.2 mmol/L Normal 21.0-31.0 [facility] Comment on above: Performed By: #### C UU, ADDONUAPLUS #### [place] [address] [place] Creatinine [Mass/Vol] 2.85 mg/dL High 0.70-1.30 [facility] Comment on above: Performed By: #### C UU, ADDONUAPLUS #### [address] Estimated GFR 22.474 mL/Min Normal [facility] Comment on above: Performed By: #### C UU, ADDONUAPLUS #### [facility] [address] [place] [address] [place] Globulin (S) [Mass/Vol] 2.5 g/dL Normal [facility] Comment on above: Performed By: #### C UU, ADDONUAPLUS #### [place] [address] [place] Glucose [Mass/Vol] 198 mg/dL High 70-100 [facility] Comment on above: Result Comment: [place] Glucose Reference Range is dependent on time and content of last meal. Glucose of more than 200 mg/dL in a nonstressed, ambulatory subject supports the diagnosis of Diabetes Mellitus. ADA recommended reference range Performed By: #### C UU, ADDONUAPLUS #### [address] Potassium [Moles/Vol] 3.0 mmol/L Low 3.5-5.1 [facility] Comment on above: Performed By: #### C UU, ADDONUAPLUS #### [place] [address] [place] Protein [Mass/Vol] 6.8 g/dL Normal 6.4-8.9 [facility] Comment on above: Performed By: #### C UU, ADDONUAPLUS #### [place] [address] [place] Sodium [Moles/Vol] 140 mmol/L Normal 136-145 [facility] Comment on above: Performed By: #### C UU, ADDONUAPLUS #### [facility] [address] [place] [address] [place] Urea nitrogen [Mass/Vol] 68 mg/dL High 7-25 [facility] Comment on above: Performed By: #### C UU, ADDONUAPLUS #### [place] [address] [place] Creatinine [Mass/volume] in Serum or PlasmaOrdered By: Lolita Adorno on 10-20-2024 Creatinine [Mass/Vol] Creatinine [Mass/v olume] in Serum or Plasma High 0.70-1.30 [facility] Eosinophils Auto (Bld) [#/Vo l]Ordered By: Lolita Adorno on 10-20-2024 Eosinophils (Bld) [#/Vol] Automated eosinophil count 0.0-0.45 [facility] Eosinophils/100 WBC Auto (Bl d)Ordered By: Lolita Adorno on 10-20-2024 Eosinophils/100 WBC (Bld) Automated eosinophil % . [facility] Erythrocyte distribution wid th Auto (RBC) [Ratio]Ordered By: Lolita Adorno on 10-20-2024 Erythrocyte distribution width (RBC) [Ratio] Erythrocyte distribution width [Ratio] by Automated count 12.0-14.8 [facility] Globulin Calc (S) [Mass/Vol] Ordered By: Lolita Adorno on 10-20-2024 Globulin (S) [Mass/Vol] Serum globulin measurement by calculation (mass/volume) [facility] Glucose [Mass/volume] in Ser um or PlasmaOrdered By: Lolita Adorno on 10-20-2024 Glucose [Mass/Vol] Glucose [Mass/volume ] in Serum or Plasma High 70-100 [facility] Comment on above: ADA recommended refe rence rangeRandom Glucose Reference Range is dependent on time and content of last meal. Glucose of more than 200 mg/dL in a nonstressed, ambulatory subject supports the diagnosis of Diabetes Mellitus. Hematocrit Auto (Bld) [Volum e fraction]Ordered By: Lolita Adorno on 10-20-2024 Hematocrit (Bld) [Volume fraction] Hematocrit [Volume Fraction] of Blood by Automated count Low 38.8-50.0 [facility] Hemoglobin [Mass/volume] in BloodOrdered By: Lolita Adorno on 10-20-2024 Hemoglobin (Bld) [Mass/Vol] Hemoglobin [Mass/volume] in Blood Low 13.0-17.0 [facility] Leukocytes [#/volume] correc ruben for nucleated erythrocytes in Blood by Automated counOrdered By: Lolita Adorno on 10-20-2024 WBC corrected for nucl RBC Auto (Bld) [#/Vol] Leukocytes [#/volume] corrected for nucleated erythrocytes in Blood by Automated coun 4.1-10.5 [facility] Lymphocytes Auto (Bld) [#/Vo l]Ordered By: Lolita Adorno on 10-20-2024 Lymphocytes (Bld) [#/Vol] Lymphocytes [#/volume] in Blood by Automated count 1.00-4.8 [facility] Lymphocytes/100 WBC Auto (Bl d)Ordered By: Lolita Adorno on 10-20-2024 Lymphocytes/100 WBC (Bld) Lymphocytes/100 leukocytes in Blood by Automated count . [facility] MCH Auto (RBC) [Entitic mass ]Ordered By: Lolita Adorno on 10-20-2024 MCH (RBC) [Entitic mass] MCH [Entitic mass] by Automated count 27.5-35.2 [facility] MCHC Auto (RBC) [Mass/Vol]Or dered By: Lolita Adorno on 10-20-2024 MCHC (RBC) [Mass/Vol] MCHC [Mass/volume] by Automated count 32.5-35.6 [facility] MCV Auto (RBC) [Entitic vol] Ordered By: Lolita Adorno on 10-20-2024 MCV (RBC) [Entitic vol] MCV [Entitic vol ume] by Automated count Low 83.5-101 [facility] Monocytes Auto (Bld) [#/Vol] Ordered By: Lolita Adorno on 10-20-2024 Monocytes (Bld) [#/Vol] Automated blood monocyte count 0.0-0.8 [facility] Monocytes/100 WBC Auto (Bld) Ordered By: Lolita Adorno on 10-20-2024 Monocytes/100 WBC (Bld) Automated monocyte % . [facility] Neutrophils Auto (Bld) [#/Vo l]Ordered By: Lolita Adorno on 10-20-2024 Neutrophils (Bld) [#/Vol] Neutrophils [#/volume] in Blood by Automated count 1.8-7.7 [facility] Neutrophils/100 WBC Auto (Bl d)Ordered By: Lolita Adorno on 10-20-2024 Neutrophils/100 WBC (Bld) Automated neutrophil % . [facility] No Panel InformationOrdered By: Lolita Adorno on 10-20-2024 Estimated GFR (CKD-EPI) 22.474 mL/Min [facility] Creatinine Clearance (Chem N/A [facility] 22.474 mL/Min [facility] N/A [facility] Nucleated erythrocytes [Pres ence] in Blood by Automated countOrdered By: Lolita Adorno on 10-20-2024 Nucleated RBC Auto Ql (Bld) Nucleated erythrocytes [Presence] in Blood by Automated count 0-0.5 [facility] PSA Screen (Yearly) w/Reflex on 10-20-2024 PSA Screen (Yearly) w/Reflex 1.900 ng/mL Normal 0.000-4.00 0 [facility] Comment on above: Order Comment: Name Collection Type:: Voided Result Comment: Seri al tumor marker results determined by assays using different manufacturers or methods may not be comparable. [facility] roving court reporter and method: Tujia DXI, CHEMILUMINESCENT IMMUNOASSAY. PERFORMED BY: [place] [address] PATHOLOGIST GLASS WORKER SONJA FALLON M.D. Performed By: #### C KAREN, LAMONTE #### [address] Platelet mean volume Auto (B ld) [Entitic vol]Ordered By: Lolita Adorno on 10-20-2024 Platelet mean volume (Bld) [Entitic vol] Platelet mean volume [Entitic volume] in Blood by Automated count 6.6-10.1 [facility] Platelets Auto (Bld) [#/Vol] Ordered By: Lolita Adorno on 10-20-2024 Platelets (Bld) [#/Vol] Platelets [#/vol ume] in Blood by Automated count 150-450 [facility] Potassium [Moles/volume] in Serum or PlasmaOrdered By: Lolita Adorno on 10-20-2024 Potassium [Moles/Vol] Potassium [Moles/v olume] in Serum or Plasma Low 3.5-5.1 [facility] Prostate specific Ag [Mass/v olume] in Serum or PlasmaOrdered By: Lolita Adorno on 10-20-2024 Prostate specific Ag [Mass/Vol] Prostate specific Ag [Mass/volume] in Serum or Plasma 0.000-4.00 0 [facility] Comment on above: Serial tumor marker results determined by assays using different manufacturers or methods may not be comparable.[facility] roving court reporter and method:JUAN UNICEL DXI, CHEMILUMINESCENT IMMUNOASSAY. Protein [Mass/volume] in Ser um or PlasmaOrdered By: Lolita Adorno on 10-20-2024 Protein [Mass/Vol] Protein [Mass/volume ] in Serum or Plasma 6.4-8.9 [facility] RBC Auto (Bld) [#/Vol]Ordere d By: Lolita Adorno on 10-20-2024 RBC (Bld) [#/Vol] Erythrocytes [#/volu me] in Blood by Automated count 3.90-5.60 [facility] Serum or plasma albumin/glob ulin mass ratioOrdered By: Lolita Adorno on 10-20-2024 Albumin/Globulin [Mass ratio] Serum or plasma albumin/globulin mass ratio [facility] Serum or plasma anion gap de terminationOrdered By: Lolita Adorno on 10-20-2024 Anion gap [Moles/Vol] Serum or plasma an ion gap determination 6.0-15.0 [facility] Sodium [Moles/volume] in Ser um or PlasmaOrdered By: Lolita Adorno on 10-20-2024 Sodium [Moles/Vol] Sodium [Moles/volume ] in Serum or Plasma 136-145 [facility] Urea nitrogen [Mass/volume] in Serum or PlasmaOrdered By: Lolita Adorno on 10-20-2024 Urea nitrogen [Mass/Vol] Urea nitrogen [Mass/volume] in Serum or Plasma High 7-25 [facility] WBC Auto (Bld) [#/Vol]Ordere d By: Lolita Adorno on 10-20-2024 WBC (Bld) [#/Vol] Leukocytes [#/volume ] in Blood by Automated count 4.1-10.5 [facility] Alanine aminotransferase [En zymatic activity/volume] in Serum or PlasmaOrdered By: Lolita Adorno on 10-12-2024 ALT [Catalytic activity/Vol] Alanine aminotransferase [Enzymatic activity/volume] in Serum or Plasma 7-52 [facility] Albumin [Mass/volume] in Ser um or Plasma by Bromocresol green (BCG) dye binding methoOrdered By: Lolita Adorno on 10-12-2024 Albumin BCG dye [Mass/Vol] Albumin [Mass/volume] in Serum or Plasma by Bromocresol green (BCG) dye binding metho 3.5-5.7 [facility] Alkaline phosphatase [Enzyma tic activity/volume] in Serum or PlasmaOrdered By: Lolita Adorno on 10-12-2024 ALP [Catalytic activity/Vol] Alkaline phosphatase [Enzymatic activity/volume] in Serum or Plasma 34-104 [facility] Appearance of UrineOrdered B y: Nette Holden on 10-12-2024 Appearance (U) Urine appearance Clear [facility] Aspartate aminotransferase [ Enzymatic activity/volume] in Serum or PlasmaOrdered By: Lolita Adorno on 10-12-2024 AST [Catalytic activity/Vol] Aspartate aminotransferase [Enzymatic activity/volume] in Serum or Plasma 13-39 [facility] Bacteria [Presence] in Urine by AutomatedOrdered By: Nette Holden on 10-12-2024 Bacteria Auto Ql (U) Bacteria [Presence] in Urine by Automated None Seen [facility] Beta HCG (MALE Tumor Marker) on 10-12-2024 Beta HCG (MALE Tumor Marker) <1 Normal 0-3 [facility] Comment on above: Result Comment: Elie travis ECLIA methodology PERFORMED BY: [place] [address] PATHOLOGIST GLASS WORKER SONJA FALLON M.D. Performed By: #### C #### [address] Beta-human chorionic gonadot ropin (BhCG) detectionOrdered By: Lolita Adorno on 10-12-2024 HCG.beta subunit Ql (Unsp spec) Beta-human chorionic gonadotropin (BhCG) detection 0-3 [facility] Comment on above: Marianne ECLIA methodol ogy Bilirubin Test strip Ql (U)O rdered By: Nette Holden on 10-12-2024 Bilirubin Ql (U) Bilirubin.total [Presence] in Urine by Test strip Negative [facility] Bilirubin.total [Mass/volume ] in Serum or PlasmaOrdered By: Lolita Adorno on 10-12-2024 Bilirubin [Mass/Vol] Bilirubin.total [Mass/volume] in Serum or Plasma 0.3-1.0 [facility] Calcium [Mass/volume] in Ser um or PlasmaOrdered By: Lolita Adorno on 10-12-2024 Calcium [Mass/Vol] Calcium [Mass/volume ] in Serum or Plasma 8.6-10.3 [facility] Carbon dioxide, total [Moles /volume] in Serum or PlasmaOrdered By: Lolita Adorno on 10-12-2024 CO2 [Moles/Vol] Carbon dioxide, tota l [Moles/volume] in Serum or Plasma 21.0-31.0 [facility] Chloride [Moles/volume] in S antolin or PlasmaOrdered By: Lolita Adorno on 10-12-2024 Chloride [Moles/Vol] Chloride [Moles/vol ume] in Serum or Plasma 98-107 [facility] Color Auto (U)Ordered By: Ab emanuel Holden on 10-12-2024 Color (U) Color of Urine by Auto Yellow [facility] Comprehensive Metabolic Pane jered 10-12-2024 Albumin [Mass/Vol] 4.2 g/dL Normal 3.5-5.7 [facility] Comment on above: Order Comment: NONFA STING.JKW Performed By: #### C MP #### [facility] [address] [place] [address] [place] Albumin/Globulin [Mass ratio] 1.8 {ratio} Normal [facility] Comment on above: Order Comment: NONFA STING.JKW Performed By: #### C MP #### [facility] [address] [place] [id number] [place] ALP [Catalytic activity/Vol] 84 U/L Normal 34-104 [facility] Comment on above: Order Comment: NONFA STING.JKW Result Comment: PERF ORMED BY: [place] [address] PATHOLOGIST GLASS WORKER SONJA FALLON M.D. Performed By: #### C MP #### [address] ALT [Catalytic activity/Vol] 11 U/L Normal 7-52 [facility] Comment on above: Order Comment: NONFA STING.JKW Performed By: #### C MP #### [address] Anion gap [Moles/Vol] 12.9 mmol/L Normal 6.0-15.0 [facility] Comment on above: Order Comment: NONFA STING.JKW Performed By: #### C MP #### [address] AST [Catalytic activity/Vol] 16 U/L Normal 13-39 [facility] Comment on above: Order Comment: NONFA STING.JKW Performed By: #### C MP #### [place] [address] [place] Bilirubin [Mass/Vol] 0.6 mg/dL Normal 0.3-1.0 [facility] Comment on above: Order Comment: NONFA STING.JKW Performed By: #### C MP #### [place] [address] [place] Calcium [Mass/Vol] 9.1 mg/dL Normal 8.6-10.3 [facility] Comment on above: Order Comment: NONFA STING.JKW Performed By: #### C MP #### [place] [address] [place] Chloride [Moles/Vol] 100 mmol/L Normal 98-107 [facility] Comment on above: Order Comment: NONFA STING.JKW Performed By: #### C MP #### [place] [address] [place] CO2 [Moles/Vol] 25.9 mmol/L Normal 21.0-31.0 [facility] Comment on above: Order Comment: NONFA STING.JKW Performed By: #### C MP #### [address] Creatinine [Mass/Vol] 3.45 mg/dL High 0.70-1.30 [facility] Comment on above: Order Comment: NONFA STING.JKW Performed By: #### C MP #### [address] Estimated GFR 17.870 mL/Min Normal [facility] Comment on above: Order Comment: NONFA STING.JKW Performed By: #### C MP #### [address] Globulin (S) [Mass/Vol] 2.4 g/dL Normal T [facility] Comment on above: Order Comment: NONFA STING.JKW Performed By: #### C MP #### [address] Glucose [Mass/Vol] 183 mg/dL High 70-100 [facility] Comment on above: Order Comment: NONFA STING.JKW Result Comment: [place] Glucose Reference Range is dependent on time and content of last meal. Glucose of more than 200 mg/dL in a nonstressed, ambulatory subject supports the diagnosis of Diabetes Mellitus. ADA recommended reference range Performed By: #### C MP #### [address] Potassium [Moles/Vol] 3.8 mmol/L Normal 3.5-5.1 [facility] Comment on above: Order Comment: NONFA STING.JKW Performed By: #### C MP #### [address] Protein [Mass/Vol] 6.6 g/dL Normal 6.4-8.9 [facility] Comment on above: Order Comment: NONFA STING.JKW Performed By: #### C MP #### [address] [address] [place] Sodium [Moles/Vol] 135 mmol/L Low 136-145 [facility] Comment on above: Order Comment: NONFA STING.JKW Performed By: #### C MP #### [facility] [address] [place] [address] [place] Urea nitrogen [Mass/Vol] 69 mg/dL High 7-25 [facility] Comment on above: Order Comment: NONFA STING.JKW Performed By: #### C MP #### [facility] [address] [place] [address] [place] Creatinine [Mass/volume] in Serum or PlasmaOrdered By: Lolita Adorno on 10-12-2024 Creatinine [Mass/Vol] Creatinine [Mass/v olume] in Serum or Plasma High 0.70-1.30 [facility] Creatinine [Mass/volume] in UrineOrdered By: Nette Holden on 10-12-2024 Creatinine (U) [Mass/Vol] Creatinine [Mass/volume] in Urine [facility] Comment on above: No reference range e stablished Dipstick and Microscopicon 0 10-12-2024 Appearance (U) Clear Normal Clear [facility] Comment on above: Order Comment: Reaso n for Exam Chronic kidney disease, stage III (moderate);Diabetes mellit Name Collection Type:: Clean-Voided Midstream Performed By: #### G LULS #### Point of Care testing , Bacteria,Urine None Seen Normal None Seen [facility] Comment on above: Order Comment: Reaso n for Exam Chronic kidney disease, stage III (moderate);Diabetes mellit Name Collection Type:: Clean-Voided Midstream Performed By: #### G LULS #### Point of Care testing , Bilirubin,Urine Negative Normal Negative [facility] Comment on above: Order Comment: Reaso n for Exam Chronic kidney disease, stage III (moderate);Diabetes mellit Name Collection Type:: Clean-Voided Midstream Performed By: #### G LULS #### Point of Care testing , Color (U) Light-Yellow Normal Yellow [facility] Comment on above: Order Comment: Reaso n for Exam Chronic kidney disease, stage III (moderate);Diabetes mellit Name Collection Type:: Clean-Voided Midstream Performed By: #### G LULS #### Point of Care testing , Glucose Ql (U) Normal Normal Normal [facility] Comment on above: Order Comment: Reaso n for Exam Chronic kidney disease, stage III (moderate);Diabetes mellit Name Collection Type:: Clean-Voided Midstream Performed By: #### G LULS #### Point of Care testing , Hyaline Casts,Urine 0 [LPF] Normal 0-8 [facility] Comment on above: Order Comment: Reaso n for Exam Chronic kidney disease, stage III (moderate);Diabetes mellit Name Collection Type:: Clean-Voided Midstream Result Comment: PERF ORMED BY: [place] [address] [address] [place] [address] PATHOLOGIST GLASS WORKER SONJA FALLON M.D. Performed By: #### G LULS #### Point of Care testing , Ketones Ql (U) Negative Normal Negative [facility] Comment on above: Order Comment: Reaso n for Exam Chronic kidney disease, stage III (moderate);Diabetes mellit Name Collection Type:: Clean-Voided Midstream Performed By: #### G LULS #### Point of Care testing , Leukocyte esterase Test strip Ql (U) Negative Normal Negative [facility] Comment on above: Order Comment: Reaso n for Exam Chronic kidney disease, stage III (moderate);Diabetes mellit Name Collection Type:: Clean-Voided Midstream Performed By: #### G LULS #### Point of Care testing , Nitrite,Urine Negative Normal Negative [facility] Comment on above: Order Comment: Reaso n for Exam Chronic kidney disease, stage III (moderate);Diabetes mellit Name Collection Type:: Clean-Voided Midstream Performed By: #### G LULS #### Point of Care testing , Occult Blood,Urine Negative Normal Negative [facility] Comment on above: Order Comment: Reaso n for Exam Chronic kidney disease, stage III (moderate);Diabetes mellit Name Collection Type:: Clean-Voided Midstream Performed By: #### G LULS #### Point of Care testing , pH (U) 5.0 [pH] Normal 5.0-9.0 [facility] Comment on above: Order Comment: Reaso n for Exam Chronic kidney disease, stage III (moderate);Diabetes mellit Name Collection Type:: Clean-Voided Midstream Performed By: #### G LULS #### Point of Care testing , Protein (U) [Mass/Vol] 20 mg/dL High Negative [facility] Comment on above: Order Comment: Reaso n for Exam Chronic kidney disease, stage III (moderate);Diabetes mellit Name Collection Type:: Clean-Voided Midstream Performed By: #### G LULS #### Point of Care testing , RBC,Urine 1 [HPF] Normal 0-4 [facility] Comment on above: Order Comment: Reaso n for Exam Chronic kidney disease, stage III (moderate);Diabetes mellit Name Collection Type:: Clean-Voided Midstream Performed By: #### G LULS #### Point of Care testing , Specificy [place],Urine 1.012 Normal 1.00 1-1.03 0 [facility] Comment on above: Order Comment: Reaso n for Exam Chronic kidney disease, stage III (moderate);Diabetes mellit Name Collection Type:: Clean-Voided Midstream Performed By: #### G LULS #### Point of Care testing , Squamous Epithelial Cell,Urine 3 [HPF] High 0-2 [facility] Comment on above: Order Comment: Reaso n for Exam Chronic kidney disease, stage III (moderate);Diabetes mellit Name Collection Type:: Clean-Voided Midstream Performed By: #### G LULS #### Point of Care testing , Urobilinogen,Urine Normal Normal Normal [facility] Comment on above: Order Comment: Reaso n for Exam Chronic kidney disease, stage III (moderate);Diabetes mellit Name Collection Type:: Clean-Voided Midstream Performed By: #### G LULS #### Point of Care testing , WBC,Urine 1 [HPF] Normal 0-4 [facility] Comment on above: Order Comment: Reaso n for Exam Chronic kidney disease, stage III (moderate);Diabetes mellit Name Collection Type:: Clean-Voided Midstream Performed By: #### G LULS #### Point of Care testing , Epithelial cells.squamous [# /area] in Urine sediment by Automated countOrdered By: Nette Holden on 10-12-2024 Epithelial cells.squamous Auto (Urine sed) [#/Area] Epithelial cells.squamous [#/area] in Urine sediment by Automated count High 0-2 [facility] Erythrocyte distribution wid th Auto (RBC) [Ratio]Ordered By: Nette Holden on 10-12-2024 Erythrocyte distribution width (RBC) [Ratio] Erythrocyte distribution width [Ratio] by Automated count 12.0-14.8 [facility] Erythrocytes [#/area] in Uri ne sediment by Automated countOrdered By: Nette Holden on 10-12-2024 RBC Auto (Urine sed) [#/Area] Erythrocytes [#/area] in Urine sediment by Automated count 0-4 [facility] Estradiolon 10-12-2024 Estradiol 29.4 pg/mL Normal 7.6-42.6 [facility] Comment on above: Result Comment: Elie travis ECLIA methodology Performed at: [place] [facility] [place] [id number] Absorber Operator: Chidi Hernandes PhD, Phone: [phone] Performed By: #### C MP #### [address] FE PROon 10-12-2024 % Iron Saturation 20.5 % Normal 20-50 [facility] Comment on above: Performed By: #### G LULS #### Point of Care testing , Ferritin [Mass/Vol] 77.1 ng/mL Normal 23.9-336.2 [facility] Comment on above: Result Comment: PERF ORMED BY: [place] [address] PATHOLOGIST GLASS WORKER SONJA FALLON M.D. Performed By: #### G LULS #### Point of Care testing , Iron [Mass/Vol] 59 ug/dL Normal 50-212 [facility] Comment on above: Performed By: #### G GIRMA #### Point of Care testing , Total Iron Binding Capacity 288 ug/dL Normal 255-450 [facility] Comment on above: Performed By: #### G GIRMA #### Point of Care testing , Transferrin [Mass/Vol] 206 mg/dL Normal 203-362 [facility] Comment on above: Performed By: #### G GIRMA #### Point of Care testing , Ferritin [Mass/volume] in Se rum or PlasmaOrdered By: Lolita Adorno on 10-12-2024 Ferritin [Mass/Vol] Ferritin [Mass/volum e] in Serum or Plasma 23.9-336.2 [facility] Globulin Calc (S) [Mass/Vol] Ordered By: Lolita Adorno on 10-12-2024 Globulin (S) [Mass/Vol] Serum globulin measurement by calculation (mass/volume) [facility] Glucose [Mass/volume] in Ser um or PlasmaOrdered By: Lolita Adorno on 10-12-2024 Glucose [Mass/Vol] Glucose [Mass/volume ] in Serum or Plasma High 70-100 [facility] Comment on above: ADA recommended refe [...] [Mass/volume] in Urine by Test strip Normal [facility] Hematocrit Auto (Bld) [Volum e fraction]Ordered By: Nette Holden on 10-12-2024 Hematocrit (Bld) [Volume fraction] Hematocrit [Volume Fraction] of Blood by Automated count Low 38.8-50.0 [facility] Hemoglobin Test strip Ql (U) Ordered By: Nette Holedn on 10-12-2024 Hemoglobin Ql (U) Hemoglobin [Presence ] in Urine by Test strip Negative [facility] Hemoglobin [Mass/volume] in BloodOrdered By: Nette Holden on 10-12-2024 Hemoglobin (Bld) [Mass/Vol] Hemoglobin [Mass/volume] in Blood Low 13.0-17.0 [facility] Hemogram CBC Without Diffon 10-12-2024 Erythrocyte distribution width (RBC) [Ratio] 13.4 % Normal 12.0-14.8 [facility] Comment on above: Order Comment: Reaso n for Exam Chronic kidney disease, stage III (moderate);Diabetes mellit Performed By: #### G LULS #### Point of Care testing , Hematocrit (Bld) [Volume fraction] 35.5 % Low 38.8-50.0 [facility] Comment on above: Order Comment: Reaso n for Exam Chronic kidney disease, stage III (moderate);Diabetes mellit Performed By: #### G LULS #### Point of Care testing , Hemoglobin (Bld) [Mass/Vol] 11.6 g/dL Low 13.0-17.0 [facility] Comment on above: Order Comment: Reaso n for Exam Chronic kidney disease, stage III (moderate);Diabetes mellit Performed By: #### G LULS #### Point of Care testing , MCH (RBC) [Entitic mass] 27.3 pg Low 27.5-35.2 [facility] Comment on above: Order Comment: Reaso n for Exam Chronic kidney disease, stage III (moderate);Diabetes mellit Performed By: #### G LULS #### Point of Care testing , MCV (RBC) [Entitic vol] 83.5 fL Normal 83.5-101 [facility] Comment on above: Order Comment: Reaso n for Exam Chronic kidney disease, stage III (moderate);Diabetes mellit Performed By: #### G LULS #### Point of Care testing , Mean Corpuscular HGB Conc 32.7 g/dL Normal 32.5-35.6 [facility] Comment on above: Order Comment: Reaso n for Exam Chronic kidney disease, stage III (moderate);Diabetes mellit Performed By: #### G LULS #### Point of Care testing , Platelet mean volume (Bld) [Entitic vol] 9.4 fL Normal 6.6-10.1 [facility] Comment on above: Order Comment: Reaso n for Exam Chronic kidney disease, stage III (moderate);Diabetes mellit Result Comment: PERF ORMED BY: [facility] [place] [address] PATHOLOGIST GLASS WORKER SONJA FALLON M.D. Performed By: #### G LULS #### Point of Care testing , Platelets (Bld) [#/Vol] 187 10*3/uL Normal 150-450 [facility] Comment on above: Order Comment: Reaso n for Exam Chronic kidney disease, stage III (moderate);Diabetes mellit Performed By: #### G LULS #### Point of Care testing , RBC (Bld) [#/Vol] 4.26 10*6/uL Normal 3.90-5.60 [facility] Comment on above: Order Comment: Reaso n for Exam Chronic kidney disease, stage III (moderate);Diabetes mellit Performed By: #### G LULS #### Point of Care testing , WBC (Bld) [#/Vol] 8.5 10*3/uL Normal 4.1-10.5 [facility] Comment on above: Order Comment: Reaso n for Exam Chronic kidney disease, stage III (moderate);Diabetes mellit Performed By: #### G LULS #### Point of Care testing , Hyaline casts [#/area] in Ur ine sediment by Automated countOrdered By: Nette Holden on 10-12-2024 Hyaline casts Auto (Urine sed) [#/Area] Hyaline casts [#/area] in Urine sediment by Automated count 0-8 [facility] Iron [Mass/volume] in Serum or PlasmaOrdered By: Lolita Adorno on 10-12-2024 Iron [Mass/Vol] Iron [Mass/volume] i n Serum or Plasma 50-212 [facility] Ketones Test strip Ql (U)Ord ered By: Nette Holden on 10-12-2024 Ketones Ql (U) Ketones [Presence] i n Urine by Test strip Negative [facility] Leukocyte esterase [Presence ] in Urine by Test stripOrdered By: Nette Holden on 10-12-2024 Leukocyte esterase Test strip Ql (U) Leukocyte esterase [Presence] in Urine by Test strip Negative [facility] Leukocytes [#/area] in Urine sediment by Automated countOrdered By: Nette Holden on 10-12-2024 WBC Auto (Urine sed) [#/Area] Leukocytes [#/area] in Urine sediment by Automated count 0-4 [facility] Leukocytes [#/volume] correc ruben for nucleated erythrocytes in Blood by Automated counOrdered By: Nette Holden on 10-12-2024 WBC corrected for nucl RBC Auto (Bld) [#/Vol] Leukocytes [#/volume] corrected for nucleated erythrocytes in Blood by Automated coun 4.1-10.5 [facility] Luteinizing Hormoneon 2024 Luteinizing Hormone 36.4 m[iU]/mL High 1.7-8.6 [facility] Comment on above: Performed By: #### C MP #### [facility] [address] MCH Auto (RBC) [Entitic mass ]Ordered By: Nette Holden on 10-12-2024 MCH (RBC) [Entitic mass] MCH [Entitic mass] by Automated count Low 27.5-35.2 [facility] MCHC Auto (RBC) [Mass/Vol]Or dered By: Nette Holden on 10-12-2024 MCHC (RBC) [Mass/Vol] MCHC [Mass/volume] by Automated count 32.5-35.6 [facility] MCV Auto (RBC) [Entitic vol] Ordered By: Nette Holden on 10-12-2024 MCV (RBC) [Entitic vol] MCV [Entitic vol ume] by Automated count 83.5-101 [facility] Magnesiumon 10-12-2024 Magnesium [Mass/Vol] 2.2 mg/dL Normal 1.9-2.7 [facility] Comment on above: Order Comment: Reaso n for Exam Chronic kidney disease, stage III (moderate);Diabetes mellit Reason for Exam Chronic kidney disease, stage 3 unspecified;Anemia of renal Performed By: #### P HOS, MG, [id number], URIC #### [facility] [address] [place] [id number] [facility] Magnesium [Mass/volume] in S antolin or PlasmaOrdered By: Nette Holden on 10-12-2024 Magnesium [Mass/Vol] Magnesium [Mass/vol ume] in Serum or Plasma 1.9-2.7 [facility] Nitrite Test strip Ql (U)Ord ered By: Nette Holden on 10-12-2024 Nitrite Ql (U) Nitrite [Presence] i n Urine by Test strip Negative [facility] No Panel InformationOrdered By: Lolita Adorno on 10-12-2024 370 ng/dL 264-916 [facility] Estimated GFR (CKD-EPI) 17.870 mL/Min [facility] Creatinine Clearance (Chem N/A [facility] 17.870 mL/Min [facility] N/A [facility] Parathyrin.intact [Mass/volu me] in Serum or PlasmaOrdered By: Nette Holden on 10-12-2024 Parathyrin.intact [Mass/Vol] Parathyrin.intact [Mass/volume] in Serum or Plasma High 12-88 [facility] Parathyroid Hormone Intacton 10-12-2024 Parathyroid Hormone Intact 167.3 pg/mL High 1288 [facility] Comment on above: Order Comment: NONFA [email or web address].JKW Result Comment: PERF ORMED BY: [address] [place] [address] PATHOLOGIST GLASS WORKER SONJA FALLON M.D. Performed By: #### C MP #### [place] [id number] [facility] Phosphate [Mass/volume] in S antolin or PlasmaOrdered By: Nette Holden on 10-12-2024 Phosphate [Mass/Vol] Phosphate [Mass/vol ume] in Serum or Plasma High 2.5-4.5 [facility] Phosphoruson 10-12-2024 Phosphate [Mass/Vol] 4.9 mg/dL High 2.5-4.5 [facility] Comment on above: Order Comment: Reaso n for Exam Chronic kidney disease, stage III (moderate);Diabetes mellit Reason for Exam Chronic kidney disease, stage 3 unspecified;Anemia of renal Performed By: #### P HOS, MG, [id number], URIC #### [facility] [address] Platelet mean volume Auto (B ld) [Entitic vol]Ordered By: Nette Holden on 10-12-2024 Platelet mean volume (Bld) [Entitic vol] Platelet mean volume [Entitic volume] in Blood by Automated count 6.6-10.1 [facility] Platelets Auto (Bld) [#/Vol] Ordered By: Nette Holden on 10-12-2024 Platelets (Bld) [#/Vol] Platelets [#/vol ume] in Blood by Automated count 150-450 [facility] Potassium [Moles/volume] in Serum or PlasmaOrdered By: Lolita Adorno on 10-12-2024 Potassium [Moles/Vol] Potassium [Moles/v olume] in Serum or Plasma 3.5-5.1 [facility] Protein Creat Ratio Ur Rando mon 10-12-2024 Creatinine, Urine (Random) 99.00 mg/dL Normal [facility] Comment on above: Order Comment: Reaso n for Exam Chronic kidney disease, stage III (moderate);Diabetes mellit Result Comment: No r eference range established Performed By: #### C UU, ADDONUAPLUS #### [facility] [address] [place] [address] [place] Protein (U) [Mass/Vol] 33 mg/dL High 0-9 [facility] Comment on above: Order Comment: Reaso n for Exam Chronic kidney disease, stage III (moderate);Diabetes mellit Performed By: #### C UU, ADDONUAPLUS #### [facility] [address] [place] [id number] [facility] Urine Protein/Creatinine Ratio 333 mg/g{Cre} High 0-200 [facility] Comment on above: Order Comment: Reaso n for Exam Chronic kidney disease, stage III (moderate);Diabetes mellit Result Comment: PERF ORMED BY: [address] [place] [address] PATHOLOGIST GLASS WORKER SONJA FALLON M.D. Performed By: #### C UU, ADDONUAPLUS #### [facility] [address] Protein Test strip (U) [Mass /Vol]Ordered By: Nette Holden on 10-12-2024 Protein (U) [Mass/Vol] Protein [Mass/vol ume] in Urine by Test strip High Negative [facility] Protein [Mass/volume] in Ser um or PlasmaOrdered By: Lolita Adorno on 10-12-2024 Protein [Mass/Vol] Protein [Mass/volume ] in Serum or Plasma 6.4-8.9 [facility] Protein [Mass/volume] in Uri neOrdered By: Nette Holden on 10-12-2024 Protein (U) [Mass/Vol] Protein [Mass/vol ume] in Urine High 0-9 [facility] RBC Auto (Bld) [#/Vol]Ordere d By: Nette Holden on 10-12-2024 RBC (Bld) [#/Vol] Erythrocytes [#/volu me] in Blood by Automated count 3.90-5.60 [facility] Serum or plasma albumin/glob ulin mass ratioOrdered By: Lolita Adorno on 10-12-2024 Albumin/Globulin [Mass ratio] Serum or plasma albumin/globulin mass ratio [facility] Serum or plasma anion gap de terminationOrdered By: Lolita Adorno on 10-12-2024 Anion gap [Moles/Vol] Serum or plasma an ion gap determination 6.0-15.0 [facility] Serum or plasma estradiol (E 2) measurement (mass/volume)Ordered By: Lolita Adorno on 10-12-2024 E2 [Mass/Vol] Serum or plasma estradiol (E2) measurement (mass/volume) 7.6-42.6 [facility] Comment on above: Marianne ECLIA methodol ogyPerformed at: - [facility] [id number] Director: Chidi Hernandes PhD, Phone: [phone] Serum or plasma free testost erone measurement (mass/volume)Ordered By: Lolita Adorno on 10-12-2024 Testosterone Free [Mass/Vol] Free testosterone measurement by LC-MS/MS Low 6.6-18.1 [facility] Comment on above: Performed at: CB - L [address] [id number] Director: Chidi Hernandes PhD, Phone: [phone] at: - [facility] [id number] Director: Fawn Hogan MD, Phone: [phone] Serum or plasma iron binding capacity measurement (mass/volume)Ordered By: Lolita Adorno on 10-12-2024 Iron binding capacity [Mass/Vol] Iron binding capacity [Mass/volume] in Serum or Plasma 255-450 [facility] Serum or plasma iron saturat ion measurement (mass fraction)Ordered By: Lolita Adorno on 10-12-2024 Iron saturation [Mass fraction] Iron saturation [Mass Fraction] in Serum or Plasma 20-50 [facility] Serum or plasma lutropin tammy surement (units/volume)Ordered By: Lolita Adorno on 10-12-2024 Lutropin Qn Serum or plasma lutr opin measurement (units/volume) High 1.7-8.6 [facility] Sodium [Moles/volume] in Ser um or PlasmaOrdered By: Lolita Adorno on 10-12-2024 Sodium [Moles/Vol] Sodium [Moles/volume ] in Serum or Plasma Low 136-145 [facility] Specific gravity Test strip (U) [Rel density]Ordered By: Nette Holden on 10-12-2024 Specific gravity (U) [Rel density] Specific gravity of Urine by Test strip 1.001-1.03 0 [facility] Testosterone Free and TotalO rdered By: Lolita Adorno on 10-12-2024 Testosterone [Mass/Vol] 370 ng/dL Normal 264-916 [facility] Comment on above: Adult male reference interval is based on a population ofhealthy nonobese males (BMI <30) between 19 and 39 yearsold. Princess et.al. JCEM 2017,102;8446-2517. PMID:[id number]. Result Comment: Adul t male reference interval is based on a population of healthy nonobese males (BMI <30) between 19 and 39 years old. triny Sánchez. [facility] 2017,102;3732-2655. PMID: [id number]. Performed By: #### C MP #### [address] Testosterone Free and Totalo n 10-12-2024 Testosterone,Free 3.7 pg/mL Low 6.6-18.1 [facility] Comment on above: Result Comment: Perf ormed at: - [facility] [address] [id number] Absorber Operator: Chidi Hernandes PhD, Phone: [phone] Performed at: - [facility] [address] [id number] Absorber Operator: Fawn Hogan MD, Phone: [phone] Performed By: #### C MP #### [address] Thyroid Stim Hormone w/Rflxo n 10-12-2024 Thyroid Stim Hormone w/Rflx 1.31 u[iU]/mL Normal 0.45-5.33 [facility] Comment on above: Result Comment: PERF ORMED BY: [place] [address] PATHOLOGIST GLASS WORKER SONJA FALLON M.D. Performed By: #### C MP #### [address] Thyrotropin [Units/volume] i n Serum or PlasmaOrdered By: Lolita Adorno on 10-12-2024 TSH Qn Thyrotropin [Units/volume] in Serum or Plasma 0.45-5.33 [facility] Transferrin [Mass/volume] in Serum or PlasmaOrdered By: Lolita Adorno on 10-12-2024 Transferrin [Mass/Vol] Transferrin [Mass/volume] in Serum or Plasma 203-362 [facility] Urate [Mass/volume] in Serum or PlasmaOrdered By: Nette Burnettr on 10-12-2024 Urate [Mass/Vol] Urate [Mass/volume] in Serum or Plasma High 4.4-7.6 [facility] Urea nitrogen [Mass/volume] in Serum or PlasmaOrdered By: Lolita Adorno on 10-12-2024 Urea nitrogen [Mass/Vol] Urea nitrogen [Mass/volume] in Serum or Plasma High 7-25 [facility] Uric Acidon 10-12-2024 Urate [Mass/Vol] 8.4 mg/dL High 4.4-7.6 [facility] Comment on above: Order Comment: Reaso n for Exam Chronic kidney disease, stage III (moderate);Diabetes mellit Reason for Exam Chronic kidney disease, stage 3 unspecified;Anemia of renal Performed By: #### P HOS, MG, [id number], URIC #### [address] Urine protein/creatinine rat ioOrdered By: Nette Holden on 10-12-2024 Protein/Creatinine (U) [Ratio] Urine protein/creatinine ratio High 0-200 [facility] Urobilinogen Test strip (U) [Mass/Vol]Ordered By: Nette Holden on 10-12-2024 Urobilinogen (U) [Mass/Vol] Urobilinogen [Mass/volume] in Urine by Test strip Normal [facility] Vitamin D 25 Hydroxy Totalon 10-12-2024 Vitamin D 25 Hydroxy Total 45.4 ng/mL Normal 30-100 [facility] Comment on above: Order [...] practice guideline. JCEM. 2010; 96(7):1911-30. PERFORMED BY: [place] [phone] PATHOLOGIST GLASS WORKER SONJA FALLON M.D. Performed By: #### P HOS, MG, [id number], URIC #### [facility] [address] Vitamin D+Metabolites [Mass/ volume] in Serum or PlasmaOrdered By: Nette Holden on 10-12-2024 Vitamin D+Metabolites [Mass/Vol] Vitamin D+Metabolites [Mass/volume] in Serum or Plasma 30-100 [facility] Comment on above: VITAMIN D STATUS 25( [place])VITAMIN D RANGE (ng/mL) Deficient <20 Insufficient 20 to <30Sufficient 30 to 100Reference: Jovan MF,Jazmyn HARDEN, Darrion MAKRS, et al. Evaluation,treatment, and prevention of vitamin D deficiency; an Endocrine Society clinical practice guideline. JCEM. 2010; 96(7):1911-30. pH Test strip (U)Ordered By: Nette Holden on 10-12-2024 pH (U) pH of Urine by Test strip 5.0-9.0 [facility] Alanine aminotransferase [En zymatic activity/volume] in Serum or PlasmaOrdered By: Matheus Robison on 10-08-2024 ALT [Catalytic activity/Vol] Alanine aminotransferase [Enzymatic activity/volume] in Serum or Plasma 7-52 [facility] Albumin [Mass/volume] in Ser um or Plasma by Bromocresol green (BCG) dye binding methoOrdered By: Matheus Robison on 10-08-2024 Albumin BCG dye [Mass/Vol] Albumin [Mass/volume] in Serum or Plasma by Bromocresol green (BCG) dye binding metho 3.5-5.7 [facility] Alkaline phosphatase [Enzyma tic activity/volume] in Serum or PlasmaOrdered By: Matheus Robison on 10-08-2024 ALP [Catalytic activity/Vol] Alkaline phosphatase [Enzymatic activity/volume] in Serum or Plasma 34-104 [facility] Aspartate aminotransferase [ Enzymatic activity/volume] in Serum or PlasmaOrdered By: Matheus Robison on 10-08-2024 AST [Catalytic activity/Vol] Aspartate aminotransferase [Enzymatic activity/volume] in Serum or Plasma Low 13-39 [facility] Basophils Auto (Bld) [#/Vol] Ordered By: Matheus Robison on 10-08-2024 Basophils (Bld) [#/Vol] Automated basophil count 0.0-0.2 [facility] Basophils/100 WBC Auto (Bld) Ordered By: Matheus Robison on 10-08-2024 Basophils/100 WBC (Bld) Automated basophil % . [facility] Bilirubin.total [Mass/volume ] in Serum or PlasmaOrdered By: Matheus Robison on 10-08-2024 Bilirubin [Mass/Vol] Bilirubin.total [Mass/volume] in Serum or Plasma 0.3-1.0 [facility] Calcium [Mass/volume] in Ser um or PlasmaOrdered By: Matheus Robison on 10-08-2024 Calcium [Mass/Vol] Calcium [Mass/volume ] in Serum or Plasma 8.6-10.3 [facility] Carbon dioxide, total [Moles /volume] in Serum or PlasmaOrdered By: Matheus Robison on 10-08-2024 CO2 [Moles/Vol] Carbon dioxide, tota l [Moles/volume] in Serum or Plasma 21.0-31.0 [facility] Chloride [Moles/volume] in S antolin or PlasmaOrdered By: Matheus Robison on 10-08-2024 Chloride [Moles/Vol] Chloride [Moles/vol ume] in Serum or Plasma 98-107 [facility] Complete Blood Count Auto Di ffon 10-08-2024 Basophils (Bld) [#/Vol] 0.0 10*3/uL Normal 0.0-0.2 [facility] Comment on above: Result Comment: PERF ORMED BY: [place] [address] PATHOLOGIST [employer] WORKER SONJA FALLON M.D. Performed By: #### C MP, CBC #### [facility] [address] Basophils/100 WBC (Bld) 0.5 % Normal . [facility] Comment on above: Performed By: #### C MP, CBC #### [address] Eosinophils (Bld) [#/Vol] 0.2 10*3/uL Normal 0.0-0.45 [facility] Comment on above: Performed By: #### C MP, CBC #### [address] Eosinophils/100 WBC (Bld) 2.7 % Normal . [facility] Comment on above: Performed By: #### C MP, CBC #### [address] Erythrocyte distribution width (RBC) [Ratio] 13.4 % Normal 12.0-14.8 [facility] Comment on above: Performed By: #### C MP, CBC #### [address] Hematocrit (Bld) [Volume fraction] 33.0 % Low 38.8-50.0 [facility] Comment on above: Performed By: #### C MP, CBC #### [address] Hemoglobin (Bld) [Mass/Vol] 10.9 g/dL Low 13.0-17.0 [facility] Comment on above: Performed By: #### C MP, CBC #### [address] Lymphocytes (Bld) [#/Vol] 2.6 10*3/uL Normal 1.00-4.8 [facility] Comment on above: Performed By: #### C MP, CBC #### [address] Lymphocytes/100 WBC (Bld) 34.9 % Normal . [facility] Comment on above: Performed By: #### C MP, CBC #### [address] MCH (RBC) [Entitic mass] 27.2 pg Low 27.5-35.2 [facility] Comment on above: Performed By: #### C MP, CBC #### [place] [address] [place] MCV (RBC) [Entitic vol] 82.3 fL Low 83.5-101 [facility] Comment on above: Performed By: #### C MP, CBC #### [address] Mean Corpuscular HGB Conc 33.1 g/dL Normal 32.5-35.6 [facility] Comment on above: Performed By: #### C MP, CBC #### [address] Monocytes (Bld) [#/Vol] 0.9 10*3/uL High 0.0-0.8 [facility] Comment on above: Performed By: #### C MP, CBC #### [address] Monocytes/100 WBC (Bld) 12.6 % Normal . [facility] Comment on above: Performed By: #### C MP, CBC #### [address] Neutrophils (Bld) [#/Vol] 3.7 10*3/uL Normal 1.8-7.7 [facility] Comment on above: Performed By: #### C MP, CBC #### [address] Neutrophils/100 WBC (Bld) 49.3 % Normal . [facility] Comment on above: Performed By: #### C MP, CBC #### [address] NRBC% 0.1 /100{WBC} Normal 0-0.5 [facility] Comment on above: Performed By: #### C MP, CBC #### [address] Platelet mean volume (Bld) [Entitic vol] 8.3 fL Normal 6.6-10.1 [facility] Comment on above: Performed By: #### C MP, CBC #### [address] Platelets (Bld) [#/Vol] 188 10*3/uL Normal 150-450 [facility] Comment on above: Performed By: #### C MP, CBC #### [address] RBC (Bld) [#/Vol] 4.01 10*6/uL Normal 3.90-5.60 [facility] Comment on above: Performed By: #### C MP, CBC #### [address] WBC (Bld) [#/Vol] 7.5 10*3/uL Normal 4.1-10.5 [facility] Comment on above: Performed By: #### C MP, CBC #### [address] Comprehensive Metabolic Pane jered 10-08-2024 Albumin [Mass/Vol] 3.6 g/dL Normal 3.5-5.7 [facility] Comment on above: Performed By: #### P HOS, MG, [id number], URIC #### [address] Albumin/Globulin [Mass ratio] 1.6 {ratio} Normal [facility] Comment on above: Performed By: #### P HOS, MG, [id number], URIC #### [address] ALP [Catalytic activity/Vol] 84 U/L Normal 34-104 [facility] Comment on above: Performed By: #### P HOS, MG, [id number], URIC #### [address] ALT [Catalytic activity/Vol] 11 U/L Normal 7-52 [facility] Comment on above: Performed By: #### P HOS, MG, [id number], URIC #### [address] Anion gap [Moles/Vol] 13.1 mmol/L Normal 6.0-15.0 [facility] Comment on above: Performed By: #### P HOS, MG, [id number], URIC #### [address] AST [Catalytic activity/Vol] 12 U/L Low 13-39 [facility] Comment on above: Performed By: #### P HOS, MG, [id number], URIC #### [address] Bilirubin [Mass/Vol] 0.5 mg/dL Normal 0.3-1.0 [facility] Comment on above: Performed By: #### P HOS, MG, [id number], URIC #### [address] Calcium [Mass/Vol] 8.7 mg/dL Normal 8.6-10.3 [facility] Comment on above: Performed By: #### P HOS, MG, [id number], URIC #### [address] Chloride [Moles/Vol] 104 mmol/L Normal 98-107 [facility] Comment on above: Performed By: #### P HOS, MG, [id number], URIC #### [address] CO2 [Moles/Vol] 24.1 mmol/L Normal 21.0-31.0 [facility] Comment on above: Performed By: #### P HOS, MG, [id number], URIC #### [address] Creatinine [Mass/Vol] 3.16 mg/dL High 0.70-1.30 [facility] Comment on above: Performed By: #### P HOS, MG, [id number], URIC #### [address] Creatinine Clr Calc Pharmacy 20.20 Normal [facility] Comment on above: Result Comment: PERF ORMED BY: [place] [address] PATHOLOGIST [employer] WORKER SONJA FALLON M.D. Performed By: #### P HOS, MG, [id number], URIC #### [facility] [address] Estimated GFR 19.856 mL/Min Normal [facility] Comment on above: Performed By: #### P HOS, MG, [id number], URIC #### [facility] [address] [place] [id number] [facility] Globulin (S) [Mass/Vol] 2.3 g/dL Normal [facility] Comment on above: Performed By: #### P HOS, MG, [id number], URIC #### [facility] [address] Glucose [Mass/Vol] 57 mg/dL Low 70-100 [facility] Comment on above: Result Comment: [facility] Glucose Reference Range is dependent on time and content of last meal. Glucose of more than 200 mg/dL in a nonstressed, ambulatory subject supports the diagnosis of Diabetes Mellitus. ADA recommended reference range Performed By: #### P HOS, MG, [id number], URIC #### [facility] [address] [place] [id number] [facility] Potassium [Moles/Vol] 4.2 mmol/L Normal 3.5-5.1 [facility] Comment on above: Performed By: #### P HOS, MG, [id number], URIC #### [facility] [address] [place] [id number] [place] Protein [Mass/Vol] 5.9 g/dL Low 6.4-8.9 [facility] Comment on above: Performed By: #### P HOS, MG, [id number], URIC #### [facility] [address] [place] [id number] [facility] Sodium [Moles/Vol] 137 mmol/L Normal 136-145 [facility] Comment on above: Performed By: #### P HOS, MG, [id number], URIC #### [facility] [address] [place] [id number] [facility] Urea nitrogen [Mass/Vol] 63 mg/dL High 7-25 [facility] Comment on above: Performed By: #### P HOS, MG, [id number], URIC #### [facility] [address] [place] [address] [facility] Creatinine [Mass/volume] in Serum or PlasmaOrdered By: Matheus Robison on 10-08-2024 Creatinine [Mass/Vol] Creatinine [Mass/v olume] in Serum or Plasma High 0.70-1.30 [facility] Eosinophils Auto (Bld) [#/Vo l]Ordered By: Matheus Robison on 10-08-2024 Eosinophils (Bld) [#/Vol] Automated eosinophil count 0.0-0.45 [facility] Eosinophils/100 WBC Auto (Bl d)Ordered By: Matheus Robison on 10-08-2024 Eosinophils/100 WBC (Bld) Automated eosinophil % . [facility] Erythrocyte distribution wid th Auto (RBC) [Ratio]Ordered By: Matheus Robison on 10-08-2024 Erythrocyte distribution width (RBC) [Ratio] Erythrocyte distribution width [Ratio] by Automated count 12.0-14.8 [facility] Globulin Calc (S) [Mass/Vol] Ordered By: Matheus Robison on 10-08-2024 Globulin (S) [Mass/Vol] Serum globulin measurement by calculation (mass/volume) [facility] Glucose Glucometer (BldC) [M ass/Vol]Ordered By: Matheus Robison on 10-08-2024 Glucose [Mass/Vol] Capillary blood gluc ose measurement by glucometer (mass/volume) [facility] Comment on above: Random Glucose Refer ence Range is dependent on time and content of last meal. Glucose of more than 200 mg/dL in a nonstressed, ambulatory subject supports the diagnosis of Diabetes Mellitus. Glucose Poct Glucometerson 0 10-08-2024 Glucose [Mass/Vol] 245 mg/dL Normal [facility] Comment on above: Result Comment: [place] Glucose Reference Range is dependent on time and content of last meal. Glucose of more than 200 mg/dL in a nonstressed, ambulatory subject supports the diagnosis of Diabetes Mellitus. PERFORMED BY: [facility] [address] [place] [address] PATHOLOGIST [employer] WORKER SONJA FALLON M.D. Performed By: #### G LULS #### Point of Care testing , Glucose [Mass/Vol] 246 mg/dL Normal [facility] Comment on above: Result Comment: [place] om Glucose Reference Range is dependent on time and content of last meal. Glucose of more than 200 mg/dL in a nonstressed, ambulatory subject supports the diagnosis of Diabetes Mellitus. PERFORMED BY: [place] [phone] PATHOLOGIST GL[employer] WORKER SONJA FALLON M.D. Performed By: #### G LULS #### Point of Care testing , Glucose [Mass/Vol] 70 mg/dL Normal [facility] Comment on above: Result Comment: [place] om Glucose Reference Range is dependent on time and content of last meal. Glucose of more than 200 mg/dL in a nonstressed, ambulatory subject supports the diagnosis of Diabetes Mellitus. PERFORMED BY: [place] [phone] PATHOLOGIST [employer] WORKER SONJA FALLON M.D. Performed By: #### C MP #### [address] Glucose [Mass/volume] in Ser um or PlasmaOrdered By: Matheus Robison on 10-08-2024 Glucose [Mass/Vol] Glucose [Mass/volume ] in Serum or Plasma Low 70-100 [facility] Comment on above: ADA recommended refe rence rangeRandom Glucose Reference Range is dependent on time and content of last meal. Glucose of more than 200 mg/dL in a nonstressed, ambulatory subject supports the diagnosis of Diabetes Mellitus. Hematocrit Auto (Bld) [Volum e fraction]Ordered By: Matheus Robison on 10-08-2024 Hematocrit (Bld) [Volume fraction] Hematocrit [Volume Fraction] of Blood by Automated count Low 38.8-50.0 [facility] Hemoglobin [Mass/volume] in BloodOrdered By: Matheus Robison on 10-08-2024 Hemoglobin (Bld) [Mass/Vol] Hemoglobin [Mass/volume] in Blood Low 13.0-17.0 [facility] Leukocytes [#/volume] correc ruben for nucleated erythrocytes in Blood by Automated counOrdered By: Matheus Robison on 10-08-2024 WBC corrected for nucl RBC Auto (Bld) [#/Vol] Leukocytes [#/volume] corrected for nucleated erythrocytes in Blood by Automated coun 4.1-10.5 [facility] Lymphocytes Auto (Bld) [#/Vo l]Ordered By: Matheus Robison on 10-08-2024 Lymphocytes (Bld) [#/Vol] Lymphocytes [#/volume] in Blood by Automated count 1.00-4.8 [facility] Lymphocytes/100 WBC Auto (Bl d)Ordered By: Matheus Robison on 10-08-2024 Lymphocytes/100 WBC (Bld) Lymphocytes/100 leukocytes in Blood by Automated count . [facility] MCH Auto (RBC) [Entitic mass ]Ordered By: Matheus Robison on 10-08-2024 MCH (RBC) [Entitic mass] MCH [Entitic mass] by Automated count Low 27.5-35.2 [facility] MCHC Auto (RBC) [Mass/Vol]Or dered By: Matheus Robison on 10-08-2024 MCHC (RBC) [Mass/Vol] MCHC [Mass/volume] by Automated count 32.5-35.6 [facility] MCV Auto (RBC) [Entitic vol] Ordered By: Matheus Robison on 10-08-2024 MCV (RBC) [Entitic vol] MCV [Entitic vol ume] by Automated count Low 83.5-101 [facility] Monocytes Auto (Bld) [#/Vol] Ordered By: Matheus Robison on 10-08-2024 Monocytes (Bld) [#/Vol] Automated blood monocyte count High 0.0-0.8 [facility] Monocytes/100 WBC Auto (Bld) Ordered By: Matheus Robison on 10-08-2024 Monocytes/100 WBC (Bld) Automated monocyte % . [facility] Neutrophils Auto (Bld) [#/Vo l]Ordered By: Matheus Robison on 10-08-2024 Neutrophils (Bld) [#/Vol] Neutrophils [#/volume] in Blood by Automated count 1.8-7.7 [facility] Neutrophils/100 WBC Auto (Bl d)Ordered By: Matheus Robison on 10-08-2024 Neutrophils/100 WBC (Bld) Automated neutrophil % . [facility] No Panel InformationOrdered By: Matheus Robison on 10-08-2024 Estimated GFR (CKD-EPI) 19.856 mL/Min [facility] Creatinine Clearance (Chem 20.20 [facility] 19.856 mL/Min [facility] 20.20 [facility] Nucleated erythrocytes [Pres ence] in Blood by Automated countOrdered By: Matheus Robison on 10-08-2024 Nucleated RBC Auto Ql (Bld) Nucleated erythrocytes [Presence] in Blood by Automated count 0-0.5 [facility] Platelet mean volume Auto (B ld) [Entitic vol]Ordered By: Mathues Robison on 10-08-2024 Platelet mean volume (Bld) [Entitic vol] Platelet mean volume [Entitic volume] in Blood by Automated count 6.6-10.1 [facility] Platelets Auto (Bld) [#/Vol] Ordered By: Matheus Robison on 10-08-2024 Platelets (Bld) [#/Vol] Platelets [#/vol ume] in Blood by Automated count 150-450 [facility] Potassium [Moles/volume] in Serum or PlasmaOrdered By: Matheus Robison on 10-08-2024 Potassium [Moles/Vol] Potassium [Moles/v olume] in Serum or Plasma 3.5-5.1 [facility] Protein [Mass/volume] in Ser um or PlasmaOrdered By: Matheus Robison on 10-08-2024 Protein [Mass/Vol] Protein [Mass/volume ] in Serum or Plasma Low 6.4-8.9 [facility] RBC Auto (Bld) [#/Vol]Ordere d By: Matheus Robison on 10-08-2024 RBC (Bld) [#/Vol] Erythrocytes [#/volu me] in Blood by Automated count 3.90-5.60 [facility] Serum or plasma albumin/glob ulin mass ratioOrdered By: Matheus Robison on 10-08-2024 Albumin/Globulin [Mass ratio] Serum or plasma albumin/globulin mass ratio [facility] Serum or plasma anion gap de terminationOrdered By: Matheus Robison on 10-08-2024 Anion gap [Moles/Vol] Serum or plasma an ion gap determination 6.0-15.0 [facility] Sodium [Moles/volume] in Ser um or PlasmaOrdered By: Matheus Robison on 10-08-2024 Sodium [Moles/Vol] Sodium [Moles/volume ] in Serum or Plasma 136-145 [facility] Urea nitrogen [Mass/volume] in Serum or PlasmaOrdered By: Matheus Robison on 10-08-2024 Urea nitrogen [Mass/Vol] Urea nitrogen [Mass/volume] in Serum or Plasma High 7-25 [facility] WBC Auto (Bld) [#/Vol]Ordere d By: Matheus Robison on 10-08-2024 WBC (Bld) [#/Vol] Leukocytes [#/volume ] in Blood by Automated count 4.1-10.5 [facility] Complete Blood Count Auto Di ffon 10-07-2024 Basophils (Bld) [#/Vol] 0.0 10*3/uL Normal 0.0-0.2 [facility] Comment on above: Result Comment: PERF ORMED BY: [place] [address] PATHOLOGIST [employer] WORKER SONJA FALLON M.D. Performed By: #### P HOS, MG, [id number], URIC #### [facility] [address] [place] [address] [place] Basophils/100 WBC (Bld) 0.6 % Normal . [facility] Comment on above: Performed By: #### P HOS, MG, [id number], URIC #### [facility] [address] [place] [address] [place] Eosinophils (Bld) [#/Vol] 0.2 10*3/uL Normal 0.0-0.45 [facility] Comment on above: Performed By: #### P HOS, MG, [id number], URIC #### [facility] [address] [place] [address] [place] Eosinophils/100 WBC (Bld) 2.7 % Normal . [facility] Comment on above: Performed By: #### P HOS, MG, [id number], URIC #### [address] Erythrocyte distribution width (RBC) [Ratio] 13.1 % Normal 12.0-14.8 [facility] Comment on above: Performed By: #### P HOS, MG, [id number], URIC #### [address] Hematocrit (Bld) [Volume fraction] 32.9 % Low 38.8-50.0 [facility] Comment on above: Performed By: #### P HOS, MG, [id number], URIC #### [address] Hemoglobin (Bld) [Mass/Vol] 10.7 g/dL Low 13.0-17.0 [facility] Comment on above: Performed By: #### P HOS, MG, [id number], URIC #### [address] Lymphocytes (Bld) [#/Vol] 2.3 10*3/uL Normal 1.00-4.8 [facility] Comment on above: Performed By: #### P HOS, MG, [id number], URIC #### [address] Lymphocytes/100 WBC (Bld) 31.0 % Normal . [facility] Comment on above: Performed By: #### P HOS, MG, [id number], URIC #### [address] MCH (RBC) [Entitic mass] 27.4 pg Low 27.5-35.2 [facility] Comment on above: Performed By: #### P HOS, MG, [id number], URIC #### [address] MCV (RBC) [Entitic vol] 83.8 fL Normal 83.5-101 [facility] Comment on above: Performed By: #### P HOS, MG, [id number], URIC #### [address] Mean Corpuscular HGB Conc 32.7 g/dL Normal 32.5-35.6 [facility] Comment on above: Performed By: #### P HOS, MG, [id number], URIC #### [address] Monocytes (Bld) [#/Vol] 1.0 10*3/uL High 0.0-0.8 [facility] Comment on above: Performed By: #### P HOS, MG, [id number], URIC #### [address] Monocytes/100 WBC (Bld) 13.5 % Normal . [facility] Comment on above: Performed By: #### P HOS, MG, [id number], URIC #### [address] Neutrophils (Bld) [#/Vol] 3.9 10*3/uL Normal 1.8-7.7 [facility] Comment on above: Performed By: #### P HOS, MG, [id number], URIC #### [address] Neutrophils/100 WBC (Bld) 52.2 % Normal . [facility] Comment on above: Performed By: #### P HOS, MG, [id number], URIC #### [address] NRBC% 0.1 /100{WBC} Normal 0-0.5 [facility] Comment on above: Performed By: #### P HOS, MG, [id number], URIC #### [address] Platelet mean volume (Bld) [Entitic vol] 8.6 fL Normal 6.6-10.1 [facility] Comment on above: Performed By: #### P HOS, MG, [id number], URIC #### [address] Platelets (Bld) [#/Vol] 164 10*3/uL Normal 150-450 [facility] Comment on above: Performed By: #### P HOS, MG, [id number], URIC #### [address] RBC (Bld) [#/Vol] 3.92 10*6/uL Normal 3.90-5.60 [facility] Comment on above: Performed By: #### P HOS, MG, [id number], URIC #### [address] WBC (Bld) [#/Vol] 7.4 10*3/uL Normal 4.1-10.5 [facility] Comment on above: Performed By: #### P HOS, MG, [id number], URIC #### [address] Comprehensive Metabolic Pane jered 10-07-2024 Albumin [Mass/Vol] 3.5 g/dL Normal 3.5-5.7 [facility] Comment on above: Performed By: #### P HOS, MG, [id number], URIC #### [address] Albumin/Globulin [Mass ratio] 1.3 {ratio} Normal [facility] Comment on above: Performed By: #### P HOS, MG, [id number], URIC #### [address] ALP [Catalytic activity/Vol] 83 U/L Normal 34-104 [facility] Comment on above: Performed By: #### P HOS, MG, [id number], URIC #### [address] ALT [Catalytic activity/Vol] 11 U/L Normal 7-52 [facility] Comment on above: Performed By: #### P HOS, MG, [id number], URIC #### [address] [place] [address] [place] Anion gap [Moles/Vol] 13.6 mmol/L Normal 6.0-15.0 [facility] Comment on above: Performed By: #### P HOS, MG, [id number], URIC #### [facility] [address] AST [Catalytic activity/Vol] 10 U/L Low 13-39 [facility] Comment on above: Performed By: #### P HOS, MG, [id number], URIC #### [address] Bilirubin [Mass/Vol] 0.4 mg/dL Normal 0.3-1.0 [facility] Comment on above: Performed By: #### P HOS, MG, [id number], URIC #### [address] Calcium [Mass/Vol] 8.8 mg/dL Normal 8.6-10.3 [facility] Comment on above: Performed By: #### P HOS, MG, [id number], URIC #### [place] [address] [place] Chloride [Moles/Vol] 103 mmol/L Normal 98-107 [facility] Comment on above: Performed By: #### P HOS, MG, [id number], URIC #### [facility] [address] [place] [address] [place] CO2 [Moles/Vol] 23.5 mmol/L Normal 21.0-31.0 [facility] Comment on above: Performed By: #### P HOS, MG, [id number], URIC #### [facility] [address] [place] [address] [place] Creatinine [Mass/Vol] 3.09 mg/dL High 0.70-1.30 [facility] Comment on above: Performed By: #### P HOS, MG, [id number], URIC #### [facility] [address] [place] [address] [place] Creatinine Clr Calc Pharmacy 20.44 Normal [facility] Comment on above: Performed By: #### P HOS, MG, [id number], URIC #### [facility] [address] Estimated GFR 20.396 mL/Min Normal [facility] Comment on above: Performed By: #### P HOS, MG, [id number], URIC #### [facility] [address] Globulin (S) [Mass/Vol] 2.6 g/dL Normal [facility] Comment on above: Performed By: #### P HOS, MG, [id number], URIC #### [facility] [address] Glucose [Mass/Vol] 126 mg/dL Significant change up 70-100 [facility] Comment on above: Result Comment: [facility] Glucose Reference Range is dependent on time and content of last meal. Glucose of more than 200 mg/dL in a nonstressed, ambulatory subject supports the diagnosis of Diabetes Mellitus. ADA recommended reference range Performed By: #### P HOS, MG, [id number], URIC #### [address] Potassium [Moles/Vol] 5.1 mmol/L Normal 3.5-5.1 [facility] Comment on above: Performed By: #### P HOS, MG, [id number], URIC #### [facility] [address] Protein [Mass/Vol] 6.1 g/dL Low 6.4-8.9 [facility] Comment on above: Performed By: #### P HOS, MG, [id number], URIC #### [facility] [address] [place] [id number] [facility] Sodium [Moles/Vol] 135 mmol/L Low 136-145 [facility] Comment on above: Performed By: #### P HOS, MG, [id number], URIC #### [facility] [address] Urea nitrogen [Mass/Vol] 58 mg/dL High 7-25 [facility] Comment on above: Performed By: #### P HOS, MG, [id number], URIC #### [address] Glucose Poct Glucometerson 0 10-07-2024 Glucose [Mass/Vol] 188 mg/dL Normal [facility] Comment on above: Result Comment: [place] Glucose Reference Range is dependent on time and content of last meal. Glucose of more than 200 mg/dL in a nonstressed, ambulatory subject supports the diagnosis of Diabetes Mellitus. PERFORMED BY: [place] [address] PATHOLOGIST GLASS WORKER SONJA FALLON M.D. Performed By: #### C MP #### [address] Glucose [Mass/Vol] 134 mg/dL Normal [facility] Comment on above: Result Comment: [place] Glucose Reference Range is dependent on time and content of last meal. Glucose of more than 200 mg/dL in a nonstressed, ambulatory subject supports the diagnosis of Diabetes Mellitus. PERFORMED BY: [place] [address] PATHOLOGIST GLASS WORKER SONJA FALLON M.D. Performed By: #### G LULS #### Point of Care testing , Glucose [Mass/Vol] 164 mg/dL Normal [facility] Comment on above: Result Comment: [place] Glucose Reference Range is dependent on time and content of last meal. Glucose of more than 200 mg/dL in a nonstressed, ambulatory subject supports the diagnosis of Diabetes Mellitus. PERFORMED BY: [place] [address] PATHOLOGIST GLASS WORKER SONJA FALLON M.D. Performed By: #### P HOS, MG, [id number], URIC #### [address] Glucose [Mass/Vol] 118 mg/dL Normal [facility] Comment on above: Result Comment: [place] Glucose Reference Range is dependent on time and content of last meal. Glucose of more than 200 mg/dL in a nonstressed, ambulatory subject supports the diagnosis of Diabetes Mellitus. PERFORMED BY: [facility] [address] [place] [address] PATHOLOGIST GLASS WORKER SONJA FALLON M.D. Performed By: #### P HOS, MG, [id number], URIC #### [facility] [address] [place] [address] [facility] Magnesiumon 10-07-2024 Magnesium [Mass/Vol] 1.6 mg/dL Low 1.9-2.7 [facility] Comment on above: Result Comment: PERF ORMED BY: [place] [address] PATHOLOGIST GLASS WORKER SONJA FALLON M.D. Performed By: #### P HOS, MG, [id number], URIC #### [place] [id number] [facility] Magnesium [Mass/volume] in S antolin or PlasmaOrdered By: Matheus Robison on 10-07-2024 Magnesium [Mass/Vol] Magnesium [Mass/vol ume] in Serum or Plasma Low 1.9-2.7 [facility] Phosphate [Mass/volume] in S antolin or PlasmaOrdered By: Matheus Robison on 10-07-2024 Phosphate [Mass/Vol] Phosphate [Mass/vol ume] in Serum or Plasma 2.5-4.5 [facility] Phosphoruson 10-07-2024 Phosphate [Mass/Vol] 4.4 mg/dL Normal 2.5-4.5 [facility] Comment on above: Performed By: #### P HOS, MG, [id number], URIC #### [facility] [address] [place] [address] [place] Alanine aminotransferase [En zymatic activity/volume] in Serum or PlasmaOrdered By: Nellie Wynne on 10-06-2024 ALT [Catalytic activity/Vol] Alanine aminotransferase [Enzymatic activity/volume] in Serum or Plasma 7-52 [facility] Alanine aminotransferase [En zymatic activity/volume] in Serum or PlasmaOrdered By: Matheus Robison on 10-06-2024 ALT [Catalytic activity/Vol] Alanine aminotransferase [Enzymatic activity/volume] in Serum or Plasma 7-52 [facility] Albumin [Mass/volume] in Ser um or Plasma by Bromocresol green (BCG) dye binding methoOrdered By: Nellie Wynne on 10-06-2024 Albumin BCG dye [Mass/Vol] Albumin [Mass/volume] in Serum or Plasma by Bromocresol green (BCG) dye binding metho 3.5-5.7 [facility] Albumin [Mass/volume] in Ser um or Plasma by Bromocresol green (BCG) dye binding methoOrdered By: Matheus Robison on 10-06-2024 Albumin BCG dye [Mass/Vol] Albumin [Mass/volume] in Serum or Plasma by Bromocresol green (BCG) dye binding metho Low 3.5-5.7 [facility] Alkaline phosphatase [Enzyma tic activity/volume] in Serum or PlasmaOrdered By: Nellie Wynne on 10-06-2024 ALP [Catalytic activity/Vol] Alkaline phosphatase [Enzymatic activity/volume] in Serum or Plasma [address] [facility] Alkaline phosphatase [Enzyma tic activity/volume] in Serum or PlasmaOrdered By: Matheus Robison on 10-06-2024 ALP [Catalytic activity/Vol] Alkaline phosphatase [Enzymatic activity/volume] in Serum or Plasma [address] [facility] Appearance of UrineOrdered B y: Nellie Wynne on 10-06-2024 Appearance (U) Urine appearance Clear [facility] Aspartate aminotransferase [ Enzymatic activity/volume] in Serum or PlasmaOrdered By: Nellie Wynne on 10-06-2024 AST [Catalytic activity/Vol] Aspartate aminotransferase [Enzymatic activity/volume] in Serum or Plasma 13-39 [facility] Aspartate aminotransferase [ Enzymatic activity/volume] in Serum or PlasmaOrdered By: Matheus Robison on 10-06-2024 AST [Catalytic activity/Vol] Aspartate aminotransferase [Enzymatic activity/volume] in Serum or Plasma Low 13-39 [facility] Bacteria [Presence] in Urine by AutomatedOrdered By: Nellie Wynne on 10-06-2024 Bacteria Auto Ql (U) Bacteria [Presence] in Urine by Automated None Seen [facility] Basophils Auto (Bld) [#/Vol] Ordered By: PROVIDER TEMP on 10-06-2024 Basophils (Bld) [#/Vol] Automated basophil count 0.0-0.2 [facility] Basophils Auto (Bld) [#/Vol] Ordered By: Matheus Robison on 10-06-2024 Basophils (Bld) [#/Vol] Automated basophil count 0.0-0.2 [facility] Basophils/100 WBC Auto (Bld) Ordered By: PROVIDER TEMP on 10-06-2024 Basophils/100 WBC (Bld) Automated basophil % . [facility] Basophils/100 WBC Auto (Bld) Ordered By: Matheus Robison on 10-06-2024 Basophils/100 WBC (Bld) Automated basophil % . [facility] Bilirubin Test strip Ql (U)O rdered By: Nellie Wynne on 10-06-2024 Bilirubin Ql (U) Bilirubin.total [Presence] in Urine by Test strip Negative [facility] Bilirubin.total [Mass/volume ] in Serum or PlasmaOrdered By: Nellie Wynne on 10-06-2024 Bilirubin [Mass/Vol] Bilirubin.total [Mass/volume] in Serum or Plasma 0.3-1.0 [facility] Bilirubin.total [Mass/volume ] in Serum or PlasmaOrdered By: Matheus Robison on 10-06-2024 Bilirubin [Mass/Vol] Bilirubin.total [Mass/volume] in Serum or Plasma 0.3-1.0 [facility] Calcium [Mass/volume] in Ser um or PlasmaOrdered By: Nellie Wynne on 10-06-2024 Calcium [Mass/Vol] Calcium [Mass/volume ] in Serum or Plasma 8.6-10.3 [facility] Calcium [Mass/volume] in Ser um or PlasmaOrdered By: Matheus Robison on 10-06-2024 Calcium [Mass/Vol] Calcium [Mass/volume ] in Serum or Plasma 8.6-10.3 [facility] Carbon dioxide, total [Moles /volume] in Serum or PlasmaOrdered By: Nellie Wynne on 10-06-2024 CO2 [Moles/Vol] Carbon dioxide, tota l [Moles/volume] in Serum or Plasma 21.0-31.0 [facility] Carbon dioxide, total [Moles /volume] in Serum or PlasmaOrdered By: Matheus Robison on 10-06-2024 CO2 [Moles/Vol] Carbon dioxide, tota l [Moles/volume] in Serum or Plasma 21.0-31.0 [facility] Chloride [Moles/volume] in S antolin or PlasmaOrdered By: Nellie Wynne on 10-06-2024 Chloride [Moles/Vol] Chloride [Moles/vol ume] in Serum or Plasma 98-107 [facility] Chloride [Moles/volume] in S antolin or PlasmaOrdered By: Matheus Robison on 10-06-2024 Chloride [Moles/Vol] Chloride [Moles/vol ume] in Serum or Plasma 98-107 [facility] Color Auto (U)Ordered By: Rosie Wynne on 10-06-2024 Color (U) Color of Urine by Auto Yellow [facility] Complete Blood Count Auto Di ffon 10-06-2024 Basophils (Bld) [#/Vol] 0.0 10*3/uL Normal 0.0-0.2 [facility] Comment on above: Result Comment: PERF ORMED BY: [place] [address] PATHOLOGIST GL[employer] WORKER SONJA FALLON M.D. Performed By: #### P HOS, MG, [id number], URIC #### [facility] [address] [place] [address] [place] Basophils/100 WBC (Bld) 0.6 % Normal . Joni bustos [facility] Comment on above: Performed By: #### P HOS, MG, [id number], URIC #### [facility] [address] [place] [address] [place] Eosinophils (Bld) [#/Vol] 0.2 10*3/uL Normal 0.0-0.45 [facility] Comment on above: Performed By: #### P HOS, MG, [id number], URIC #### [facility] [address] [place] [address] [place] Eosinophils/100 WBC (Bld) 2.7 % Normal . [facility] Comment on above: Performed By: #### P HOS, MG, [id number], URIC #### [address] Erythrocyte distribution width (RBC) [Ratio] 13.8 % Normal 12.0-14.8 [facility] Comment on above: Performed By: #### P HOS, MG, [id number], URIC #### [address] Hematocrit (Bld) [Volume fraction] 34.3 % Low 38.8-50.0 [facility] Comment on above: Performed By: #### P HOS, MG, [id number], URIC #### [address] Hemoglobin (Bld) [Mass/Vol] 11.2 g/dL Low 13.0-17.0 [facility] Comment on above: Performed By: #### P HOS, MG, [id number], URIC #### [address] Lymphocytes (Bld) [#/Vol] 1.9 10*3/uL Normal 1.00-4.8 [facility] Comment on above: Performed By: #### P HOS, MG, [id number], URIC #### [address] Lymphocytes/100 WBC (Bld) 27.0 % Normal . [facility] Comment on above: Performed By: #### P HOS, MG, [id number], URIC #### [address] MCH (RBC) [Entitic mass] 27.2 pg Low 27.5-35.2 [facility] Comment on above: Performed By: #### P HOS, MG, [id number], URIC #### [address] MCV (RBC) [Entitic vol] 83.1 fL Low 83.5-101 [facility] Comment on above: Performed By: #### P HOS, MG, [id number], URIC #### [address] [place] [address] [place] Mean Corpuscular HGB Conc 32.7 g/dL Normal 32.5-35.6 [facility] Comment on above: Performed By: #### P HOS, MG, [id number], URIC #### [address] Monocytes (Bld) [#/Vol] 0.7 10*3/uL Normal 0.0-0.8 [facility] Comment on above: Performed By: #### P HOS, MG, [id number], URIC #### [address] Monocytes/100 WBC (Bld) 17.85 % Normal 0.00-20.00 [facility] Comment on above: Performed By: #### P HOS, MG, [id number], URIC #### [address] Monocytes/100 WBC (Bld) 9.9 % Normal . [facility] Comment on above: Performed By: #### P HOS, MG, [id number], URIC #### [address] Neutrophils (Bld) [#/Vol] 4.2 10*3/uL Normal 1.8-7.7 [facility] Comment on above: Performed By: #### P HOS, MG, [id number], URIC #### [address] Neutrophils/100 WBC (Bld) 59.8 % Normal . [facility] Comment on above: Performed By: #### P HOS, MG, [id number], URIC #### [address] NRBC% 0.1 /100{WBC} Normal 0-0.5 [facility] Comment on above: Performed By: #### P HOS, MG, [id number], URIC #### [address] Platelet mean volume (Bld) [Entitic vol] 8.3 fL Normal 6.6-10.1 [facility] Comment on above: Performed By: #### P HOS, MG, [id number], URIC #### [address] Platelets (Bld) [#/Vol] 182 10*3/uL Normal 150-450 [facility] Comment on above: Performed By: #### P HOS, MG, [id number], URIC #### [address] RBC (Bld) [#/Vol] 4.13 10*6/uL Normal 3.90-5.60 [facility] Comment on above: Performed By: #### P HOS, MG, [id number], URIC #### [facility] [address] WBC (Bld) [#/Vol] 6.9 10*3/uL Normal 4.1-10.5 [facility] Comment on above: Performed By: #### P HOS, MG, [id number], URIC #### [place] [address] [place] Basophils (Bld) [#/Vol] 0.0 10*3/uL Normal 0.0-0.2 [facility] Comment on above: Result Comment: PERF ORMED BY: [place] [address] PATHOLOGIST GLASS WORKER SONJA FALLON M.D. Performed By: #### P HOS, MG, [id number], URIC #### [address] Basophils/100 WBC (Bld) 0.5 % Normal . T juli [facility] Comment on above: Performed By: #### P HOS, MG, [id number], URIC #### [place] [address] [place] Eosinophils (Bld) [#/Vol] 0.2 10*3/uL Normal 0.0-0.45 [facility] Comment on above: Performed By: #### P HOS, MG, [id number], URIC #### [address] Eosinophils/100 WBC (Bld) 3.3 % Normal . [facility] Comment on above: Performed By: #### P HOS, MG, [id number], URIC #### [address] Erythrocyte distribution width (RBC) [Ratio] 13.4 % Normal 12.0-14.8 [facility] Comment on above: Performed By: #### P HOS, MG, [id number], URIC #### [address] Hematocrit (Bld) [Volume fraction] 33.7 % Low 38.8-50.0 [facility] Comment on above: Performed By: #### P HOS, MG, [id number], URIC #### [address] Hemoglobin (Bld) [Mass/Vol] 10.9 g/dL Low 13.0-17.0 [facility] Comment on above: Performed By: #### P HOS, MG, [id number], URIC #### [address] Lymphocytes (Bld) [#/Vol] 2.8 10*3/uL Normal 1.00-4.8 [facility] Comment on above: Performed By: #### P HOS, MG, [id number], URIC #### [address] Lymphocytes/100 WBC (Bld) 37.3 % Normal . [facility] Comment on above: Performed By: #### P HOS, MG, [id number], URIC #### [address] MCH (RBC) [Entitic mass] 27.2 pg Low 27.5-35.2 [facility] Comment on above: Performed By: #### P HOS, MG, [id number], URIC #### [address] MCV (RBC) [Entitic vol] 84.1 fL Normal 83.5-101 [facility] Comment on above: Performed By: #### P HOS, MG, [id number], URIC #### [address] Mean Corpuscular HGB Conc 32.3 g/dL Low 32.5-35.6 [facility] Comment on above: Performed By: #### P HOS, MG, [id number], URIC #### [address] Monocytes (Bld) [#/Vol] 1.0 10*3/uL High 0.0-0.8 [facility] Comment on above: Performed By: #### P HOS, MG, [id number], URIC #### [address] Monocytes/100 WBC (Bld) 12.9 % Normal . [facility] Comment on above: Performed By: #### P HOS, MG, [id number], URIC #### [address] Neutrophils (Bld) [#/Vol] 3.5 10*3/uL Normal 1.8-7.7 [facility] Comment on above: Performed By: #### P HOS, MG, [id number], URIC #### [address] Neutrophils/100 WBC (Bld) 46.0 % Normal . [facility] Comment on above: Performed By: #### P HOS, MG, [id number], URIC #### [address] NRBC% 0.1 /100{WBC} Normal 0-0.5 [facility] Comment on above: Performed By: #### P HOS, MG, [id number], URIC #### [address] Platelet mean volume (Bld) [Entitic vol] 8.4 fL Normal 6.6-10.1 [facility] Comment on above: Performed By: #### P HOS, MG, [id number], URIC #### [address] Platelets (Bld) [#/Vol] 175 10*3/uL Normal 150-450 [facility] Comment on above: Performed By: #### P HOS, MG, [id number], URIC #### [address] RBC (Bld) [#/Vol] 4.00 10*6/uL Normal 3.90-5.60 [facility] Comment on above: Performed By: #### P HOS, MG, [id number], URIC #### [address] WBC (Bld) [#/Vol] 7.5 10*3/uL Normal 4.1-10.5 [facility] Comment on above: Performed By: #### P HOS, MG, [id number], URIC #### [address] Comprehensive Metabolic Pane jered 10-06-2024 Albumin [Mass/Vol] 3.7 g/dL Normal 3.5-5.7 [facility] Comment on above: Performed By: #### P HOS, MG, [id number], URIC #### [address] Albumin/Globulin [Mass ratio] 1.3 {ratio} Normal [facility] Comment on above: Performed By: #### P HOS, MG, [id number], URIC #### [address] ALP [Catalytic activity/Vol] 85 U/L Normal 34-104 [facility] Comment on above: Performed By: #### P HOS, MG, [id number], URIC #### [address] ALT [Catalytic activity/Vol] 14 U/L Normal 7-52 [facility] Comment on above: Performed By: #### P HOS, MG, [id number], URIC #### [address] Anion gap [Moles/Vol] 13.2 mmol/L Normal 6.0-15.0 [facility] Comment on above: Performed By: #### P HOS, MG, [id number], URIC #### [address] AST [Catalytic activity/Vol] 13 U/L Normal 13-39 [facility] Comment on above: Performed By: #### P HOS, MG, [id number], URIC #### [address] Bilirubin [Mass/Vol] 0.4 mg/dL Normal 0.3-1.0 [facility] Comment on above: Performed By: #### P HOS, MG, [id number], URIC #### [address] Calcium [Mass/Vol] 9.5 mg/dL Normal 8.6-10.3 [facility] Comment on above: Performed By: #### P HOS, MG, [id number], URIC #### [address] Chloride [Moles/Vol] 101 mmol/L Normal 98-107 [facility] Comment on above: Performed By: #### P HOS, MG, [id number], URIC #### [address] CO2 [Moles/Vol] 24.3 mmol/L Normal 21.0-31.0 [facility] Comment on above: Performed By: #### P HOS, MG, [id number], URIC #### [address] Creatinine [Mass/Vol] 3.25 mg/dL High 0.70-1.30 [facility] Comment on above: Performed By: #### P HOS, MG, [id number], URIC #### [address] Creatinine Clr Calc Pharmacy 18.85 Normal [facility] Comment on above: Result Comment: PERF ORMED BY: [place] [address] PATHOLOGIST [employer] WORKER SONJA FALLON M.D. Performed By: #### P HOS, MG, [id number], URIC #### [address] Estimated GFR 19.198 mL/Min Normal [facility] Comment on above: Performed By: #### P HOS, MG, [id number], URIC #### [address] Globulin (S) [Mass/Vol] 2.8 g/dL Normal T [facility] Comment on above: Performed By: #### P HOS, MG, [id number], URIC #### [address] Glucose [Mass/Vol] 240 mg/dL Significant change up 70-100 [facility] Comment on above: Result Comment: [facility] Glucose Reference Range is dependent on time and content of last meal. Glucose of more than 200 mg/dL in a nonstressed, ambulatory subject supports the diagnosis of Diabetes Mellitus. ADA recommended reference range Performed By: #### P HOS, MG, [id number], URIC #### [address] Potassium [Moles/Vol] 5.5 mmol/L High 3.5-5.1 [facility] Comment on above: Performed By: #### P HOS, MG, [id number], URIC #### [address] Protein [Mass/Vol] 6.5 g/dL Normal 6.4-8.9 [facility] Comment on above: Performed By: #### P HOS, MG, [id number], URIC #### [address] Sodium [Moles/Vol] 133 mmol/L Low 136-145 [facility] Comment on above: Performed By: #### P HOS, MG, [id number], URIC #### [address] Urea nitrogen [Mass/Vol] 55 mg/dL High 7-25 [facility] Comment on above: Performed By: #### P HOS, MG, [id number], URIC #### [address] Albumin [Mass/Vol] 3.4 g/dL Low 3.5-5.7 [facility] Comment on above: Performed By: #### P HOS, MG, [id number], URIC #### [address] Albumin/Globulin [Mass ratio] 1.3 {ratio} Normal [facility] Comment on above: Performed By: #### P HOS, MG, [id number], URIC #### [address] ALP [Catalytic activity/Vol] 79 U/L Normal 34-104 [facility] Comment on above: Performed By: #### P HOS, MG, [id number], URIC #### [address] ALT [Catalytic activity/Vol] 14 U/L Normal 7-52 [facility] Comment on above: Performed By: #### P HOS, MG, [id number], URIC #### [address] Anion gap [Moles/Vol] 9.8 mmol/L Normal 6.0-15.0 [facility] Comment on above: Performed By: #### P HOS, MG, [id number], URIC #### [address] AST [Catalytic activity/Vol] 12 U/L Low 13-39 [facility] Comment on above: Performed By: #### P HOS, MG, [id number], URIC #### [address] Bilirubin [Mass/Vol] 0.4 mg/dL Normal 0.3-1.0 [facility] Comment on above: Performed By: #### P HOS, MG, [id number], URIC #### [address] Calcium [Mass/Vol] 8.9 mg/dL Normal 8.6-10.3 [facility] Comment on above: Performed By: #### P HOS, MG, [id number], URIC #### [address] Chloride [Moles/Vol] 107 mmol/L Normal 98-107 [facility] Comment on above: Performed By: #### P HOS, MG, [id number], URIC #### [address] CO2 [Moles/Vol] 24.1 mmol/L Normal 21.0-31.0 [facility] Comment on above: Performed By: #### P HOS, MG, [id number], URIC #### [address] Creatinine [Mass/Vol] 3.00 mg/dL High 0.70-1.30 [facility] Comment on above: Performed By: #### P HOS, MG, [id number], URIC #### [address] Creatinine Clr Calc Pharmacy 19.49 Normal [facility] Comment on above: Result Comment: PERF ORMED BY: [place] [address] PATHOLOGIST [employer] WORKER SONJA FALLON M.D. Performed By: #### P HOS, MG, [id number], URIC #### [address] Estimated GFR 21.133 mL/Min Normal [facility] Comment on above: Performed By: #### P HOS, MG, [id number], URIC #### [facility] [address] Globulin (S) [Mass/Vol] 2.6 g/dL Normal [facility] Comment on above: Performed By: #### P HOS, MG, [id number], URIC #### [address] Glucose [Mass/Vol] 79 mg/dL Normal 70-100 [facility] Comment on above: Result Comment: [place] Glucose Reference Range is dependent on time and content of last meal. Glucose of more than 200 mg/dL in a nonstressed, ambulatory subject supports the diagnosis of Diabetes Mellitus. ADA recommended reference range Performed By: #### P HOS, MG, [id number], URIC #### [address] Potassium [Moles/Vol] 4.9 mmol/L Normal 3.5-5.1 [facility] Comment on above: Performed By: #### P HOS, MG, [id number], URIC #### [address] Protein [Mass/Vol] 6.0 g/dL Low 6.4-8.9 [facility] Comment on above: Performed By: #### P HOS, MG, [id number], URIC #### [address] Sodium [Moles/Vol] 136 mmol/L Normal 136-145 [facility] Comment on above: Performed By: #### P HOS, MG, [id number], URIC #### [address] Urea nitrogen [Mass/Vol] 50 mg/dL High 7-25 [facility] Comment on above: Performed By: #### P HOS, MG, [id number], URIC #### [place] [id number] [facility] Creatine Kinaseon 10-06-2024 CK [Catalytic activity/Vol] 55 U/L Normal 30-223 [facility] Comment on above: Performed By: #### P HOS, MG, [id number], URIC #### [facility] [address] Creatine kinase [Enzymatic a ctivity/volume] in Serum or PlasmaOrdered By: Nellie Wynne on 10-06-2024 CK [Catalytic activity/Vol] Creatine kinase [Enzymatic activity/volume] in Serum or Plasma 30-223 [facility] Creatinine [Mass/volume] in Serum or PlasmaOrdered By: Nellie Wynne on 10-06-2024 Creatinine [Mass/Vol] Creatinine [Mass/v olume] in Serum or Plasma High 0.70-1.30 [facility] Creatinine [Mass/volume] in Serum or PlasmaOrdered By: Matheus Robison on 10-06-2024 Creatinine [Mass/Vol] Creatinine [Mass/v olume] in Serum or Plasma High 0.70-1.30 [facility] Dipstick and Microscopicon 0 10-06-2024 Appearance (U) Clear Normal Clear [facility] Comment on above: Order Comment: [email or web address] Performed By: #### C MP #### [address] Bacteria,Urine Rare Normal None Seen [facility] Comment on above: Order Comment: [email or web address] Performed By: #### C MP #### [address] Bilirubin,Urine Negative Normal Negative [facility] Comment on above: Order Comment: [email or web address] Performed By: #### C MP #### [address] Color (U) Light-Yellow Normal Yellow [facility] Comment on above: Order Comment: NONFA STING.JKW Performed By: #### C MP #### [address] Glucose Ql (U) Normal Normal Normal [facility] Comment on above: Order Comment: NONFA STING.JKW Performed By: #### C MP #### [address] Hyaline Casts,Urine 0 [LPF] Normal 0-8 [facility] Comment on above: Order Comment: NONFA STING.JKW Performed By: #### C MP #### [facility] [address] Ketones Ql (U) Negative Normal Negative [facility] Comment on above: Order Comment: NONFA STING.JKW Performed By: #### C MP #### [facility] [address] Leukocyte esterase Test strip Ql (U) 4+ High Negative [facility] Comment on above: Order Comment: NONFA STING.JKW Performed By: #### C MP #### [address] Mucus,Urine Rare Normal [facility] Comment on above: Order Comment: NONFA STING.JKW Result Comment: PERF ORMED BY: [place] [address] PATHOLOGIST GLASS WORKER SONJA FALLON M.D. Performed By: #### C MP #### [address] Nitrite,Urine Negative Normal Negative [facility] Comment on above: Order Comment: NONFA STING.JKW Performed By: #### C MP #### [address] Occult Blood,Urine Negative Normal Negative [facility] Comment on above: Order Comment: NONFA STING.JKW Result Comment: PERF ORMED BY: [place] [address] PATHOLOGIST [employer] WORKER SONJA FALLON M.D. Performed By: #### C MP #### [address] pH (U) 5.0 [pH] Normal 5.0-9.0 [facility] Comment on above: Order Comment: NONFA STING.JKW Performed By: #### C MP #### [place] [address] [place] Protein,Urine Trace High Negative [facility] Comment on above: Order Comment: NONFA STING.JKW Performed By: #### C MP #### [address] RBC,Urine 3 [HPF] Normal 0-4 [facility] Comment on above: Order Comment: NONFA STING.JKW Performed By: #### C MP #### [address] Specificy [place],Urine 1.010 Normal 1.00 1-1.03 0 [facility] Comment on above: Order Comment: NONFA STING.JKW Performed By: #### C MP #### [address] Squamous Epithelial Cell,Urine 1 [HPF] Normal 0-2 [facility] Comment on above: Order Comment: NONFA STING.JKW Performed By: #### C MP #### [address] Urobilinogen,Urine Normal Normal Normal [facility] Comment on above: Order Comment: NONFA STING.JKW Performed By: #### C MP #### [address] WBC CLUMP, Urine Moderate High None Seen [facility] Comment on above: Order Comment: NONFA STING.JKW Performed By: #### C MP #### [address] WBC,Urine 20 [HPF] High 0-4 [facility] Comment on above: Order Comment: NONFA STING.JKW Performed By: #### C MP #### [address] ECG 12 lead ECGon 10-06-2024 ECG 12 lead ECG [facility] [place] [address] [place] [address] Electrocardiograph Report Signed Patient: Gage Lugo MR#: [id number] : 1950 Acct:[id number] Age/Sex: 74 / M ADM Date: 10/06/24 Loc: Room: [address] [place] [address] Type: ADM IN Attending Dr: Matheus Robison [...] Nellie Wynne MD 11/30 0148 Normal [facility] Eosinophils Auto (Bld) [#/Vo l]Ordered By: PROVIDER MARIE on 10-06-2024 Eosinophils (Bld) [#/Vol] Automated eosinophil count 0.0-0.45 [facility] Eosinophils Auto (Bld) [#/Vo l]Ordered By: Matheus Robison on 10-06-2024 Eosinophils (Bld) [#/Vol] Automated eosinophil count 0.0-0.45 [facility] Eosinophils/100 WBC Auto (Bl d)Ordered By: PROVIDER MARIE on 10-06-2024 Eosinophils/100 WBC (Bld) Automated eosinophil % . [facility] Eosinophils/100 WBC Auto (Bl d)Ordered By: Matheus Robison on 10-06-2024 Eosinophils/100 WBC (Bld) Automated eosinophil % . [facility] Epithelial cells.squamous [# /area] in Urine sediment by Automated countOrdered By: Nellie Wynne on 10-06-2024 Epithelial cells.squamous Auto (Urine sed) [#/Area] Epithelial cells.squamous [#/area] in Urine sediment by Automated count 0-2 [facility] Erythrocyte distribution wid th Auto (RBC) [Ratio]Ordered By: PROVIDER TEMP on 10-06-2024 Erythrocyte distribution width (RBC) [Ratio] Erythrocyte distribution width [Ratio] by Automated count 12.0-14.8 [facility] Erythrocyte distribution wid th Auto (RBC) [Ratio]Ordered By: Matheus Robison on 10-06-2024 Erythrocyte distribution width (RBC) [Ratio] Erythrocyte distribution width [Ratio] by Automated count 12.0-14.8 [facility] Erythrocytes [#/area] in Uri ne sediment by Automated countOrdered By: Nellie Wynne on 10-06-2024 RBC Auto (Urine sed) [#/Area] Erythrocytes [#/area] in Urine sediment by Automated count 0-4 [facility] Globulin Calc (S) [Mass/Vol] Ordered By: Nellie Wynne on 10-06-2024 Globulin (S) [Mass/Vol] Serum globulin measurement by calculation (mass/volume) [facility] Globulin Calc (S) [Mass/Vol] Ordered By: Matheus Robison on 10-06-2024 Globulin (S) [Mass/Vol] Serum globulin measurement by calculation (mass/volume) [facility] Glucose Glucometer (BldC) [M ass/Vol]Ordered By: Nellie Wynne on 10-06-2024 Glucose [Mass/Vol] Capillary blood gluc ose measurement by glucometer (mass/volume) [facility] Comment on above: Random Glucose Refer ence Range is dependent on time and content of last meal. Glucose of more than 200 mg/dL in a nonstressed, ambulatory subject supports the diagnosis of Diabetes Mellitus. Glucose Glucometer (BldC) [M ass/Vol]Ordered By: Matheus Robison on 10-06-2024 Glucose [Mass/Vol] Capillary blood gluc ose measurement by glucometer (mass/volume) [facility] Comment on above: Random Glucose Refer ence Range is dependent on time and content of last meal. Glucose of more than 200 mg/dL in a nonstressed, ambulatory subject supports the diagnosis of Diabetes Mellitus. Glucose Poct Glucometerson 0 10-06-2024 Glucose [Mass/Vol] 231 mg/dL Normal [facility] Comment on above: Result Comment: [place] Glucose Reference Range is dependent on time and content of last meal. Glucose of more than 200 mg/dL in a nonstressed, ambulatory subject supports the diagnosis of Diabetes Mellitus. PERFORMED BY: [place] [address] PATHOLOGIST GLASS WORKER SONJA FALLON M.D. Performed By: #### P HOS, MG, [id number], URIC #### [address] Glucose [Mass/Vol] 223 mg/dL Normal [facility] Comment on above: Result Comment: [place] om Glucose Reference Range is dependent on time and content of last meal. Glucose of more than 200 mg/dL in a nonstressed, ambulatory subject supports the diagnosis of Diabetes Mellitus. PERFORMED BY: [place] [address] PATHOLOGIST GL[employer] WORKER SONJA FALLON M.D. Performed By: #### P HOS, MG, [id number], URIC #### [address] Glucose [Mass/Vol] 225 mg/dL Normal [facility] Comment on above: Result Comment: [place] om Glucose Reference Range is dependent on time and content of last meal. Glucose of more than 200 mg/dL in a nonstressed, ambulatory subject supports the diagnosis of Diabetes Mellitus. PERFORMED BY: [place] [address] PATHOLOGIST GLASS WORKER SONJA FALLON M.D. Performed By: #### C UU, ADDONUAPLUS #### [address] Commemt1 Glu2: Cleaned Meter Normal [facility] Comment on above: Result Comment: PERF ORMED BY: [place] [address] PATHOLOGIST GLASS WORKER SONJA FALLON M.D. Performed By: #### P HOS, MG, [id number], URIC #### [address] Glucose [Mass/Vol] 192 mg/dL Normal [facility] Comment on above: Result Comment: [place] om Glucose Reference Range is dependent on time and content of last meal. Glucose of more than 200 mg/dL in a nonstressed, ambulatory subject supports the diagnosis of Diabetes Mellitus. Performed By: #### P HOS, MG, [id number], URIC #### [facility] [address] Glucose [Mass/Vol] 89 mg/dL Normal [facility] Comment on above: Result Comment: [place] om Glucose Reference Range is dependent on time and content of last meal. Glucose of more than 200 mg/dL in a nonstressed, ambulatory subject supports the diagnosis of Diabetes Mellitus. PERFORMED BY: [place] [address] PATHOLOGIST GLASS WORKER SONJA FALLON M.D. Performed By: #### P HOS, MG, [id number], URIC #### [facility] [address] Glucose [Mass/volume] in Ser um or PlasmaOrdered By: Nellie Wynne on 10-06-2024 Glucose [Mass/Vol] Glucose [Mass/volume ] in Serum or Plasma Invalid Interpretation Code 70-100 [facility] Comment on above: Delta: 79 on [id number] recommended reference rangeRandom Glucose Reference Range is dependent on time and content of last meal. Glucose of more than 200 mg/dL in a nonstressed, ambulatory subject supports the diagnosis of Diabetes Mellitus. Glucose [Mass/volume] in Ser um or PlasmaOrdered By: Matheus Robison on 10-06-2024 Glucose [Mass/Vol] Glucose [Mass/volume ] in Serum or Plasma 70-100 [facility] Comment on above: ADA recommended refe [...] [Mass/volume] in Urine by Test strip Normal [facility] Hematocrit Auto (Bld) [Volum e fraction]Ordered By: PROVIDER MARIE on 10-06-2024 Hematocrit (Bld) [Volume fraction] Hematocrit [Volume Fraction] of Blood by Automated count Low 38.8-50.0 [facility] Hematocrit Auto (Bld) [Volum e fraction]Ordered By: Matheus Robison on 10-06-2024 Hematocrit (Bld) [Volume fraction] Hematocrit [Volume Fraction] of Blood by Automated count Low 38.8-50.0 [facility] Hemoglobin Test strip Ql (U) Ordered By: Nellie Wynne on 10-06-2024 Hemoglobin Ql (U) Hemoglobin [Presence ] in Urine by Test strip Negative [facility] Hemoglobin [Mass/volume] in BloodOrdered By: PROVIDER MARIE on 10-06-2024 Hemoglobin (Bld) [Mass/Vol] Hemoglobin [Mass/volume] in Blood Low 13.0-17.0 [facility] Hemoglobin [Mass/volume] in BloodOrdered By: Matheus Robison on 10-06-2024 Hemoglobin (Bld) [Mass/Vol] Hemoglobin [Mass/volume] in Blood Low 13.0-17.0 [facility] Hyaline casts [#/area] in Ur ine sediment by Automated countOrdered By: Nellie Wynne on 10-06-2024 Hyaline casts Auto (Urine sed) [#/Area] Hyaline casts [#/area] in Urine sediment by Automated count 0-8 [facility] Ketones Test strip Ql (U)Ord ered By: Nellie Wynne on 10-06-2024 Ketones Ql (U) Ketones [Presence] i n Urine by Test strip Negative [facility] Leukocyte clumps [Presence] in Urine by AutomatedOrdered By: Nellie Wynne on 10-06-2024 Leukocyte clumps Auto Ql (U) Leukocyte clumps [Presence] in Urine by Automated High None Seen [facility] Leukocyte esterase [Presence ] in Urine by Test stripOrdered By: Nellie Wynne on 10-06-2024 Leukocyte esterase Test strip Ql (U) Leukocyte esterase [Presence] in Urine by Test strip High Negative [facility] Leukocytes [#/area] in Urine sediment by Automated countOrdered By: Nellie Wynne on 10-06-2024 WBC Auto (Urine sed) [#/Area] Leukocytes [#/area] in Urine sediment by Automated count High 0-4 [facility] Leukocytes [#/volume] correc ruben for nucleated erythrocytes in Blood by Automated counOrdered By: PROVIDER TEMP on 10-06-2024 WBC corrected for nucl RBC Auto (Bld) [#/Vol] Leukocytes [#/volume] corrected for nucleated erythrocytes in Blood by Automated coun 4.1-10.5 [facility] Leukocytes [#/volume] correc ruben for nucleated erythrocytes in Blood by Automated counOrdered By: Matheus Robison on 10-06-2024 WBC corrected for nucl RBC Auto (Bld) [#/Vol] Leukocytes [#/volume] corrected for nucleated erythrocytes in Blood by Automated coun 4.1-10.5 [facility] Lymphocytes Auto (Bld) [#/Vo l]Ordered By: PROVIDER TEMMurray on 10-06-2024 Lymphocytes (Bld) [#/Vol] Lymphocytes [#/volume] in Blood by Automated count 1.00-4.8 [facility] Lymphocytes Auto (Bld) [#/Vo l]Ordered By: Matheus Robison on 10-06-2024 Lymphocytes (Bld) [#/Vol] Lymphocytes [#/volume] in Blood by Automated count 1.00-4.8 [facility] Lymphocytes/100 WBC Auto (Bl d)Ordered By: ANTWON SALAZAR on 10-06-2024 Lymphocytes/100 WBC (Bld) Lymphocytes/100 leukocytes in Blood by Automated count . [facility] Lymphocytes/100 WBC Auto (Bl d)Ordered By: Matheus Robison on 10-06-2024 Lymphocytes/100 WBC (Bld) Lymphocytes/100 leukocytes in Blood by Automated count . [facility] MCH Auto (RBC) [Entitic mass ]Ordered By: PROVIDER TEMP on 10-06-2024 MCH (RBC) [Entitic mass] MCH [Entitic mass] by Automated count Low 27.5-35.2 [facility] MCH Auto (RBC) [Entitic mass ]Ordered By: Matheus Robison on 10-06-2024 MCH (RBC) [Entitic mass] MCH [Entitic mass] by Automated count Low 27.5-35.2 [facility] MCHC Auto (RBC) [Mass/Vol]Or dered By: PROVIDER TEMP on 10-06-2024 MCHC (RBC) [Mass/Vol] MCHC [Mass/volume] by Automated count 32.5-35.6 [facility] MCHC Auto (RBC) [Mass/Vol]Or dered By: Matheus Robison on 10-06-2024 MCHC (RBC) [Mass/Vol] MCHC [Mass/volume] by Automated count Low 32.5-35.6 [facility] MCV Auto (RBC) [Entitic vol] Ordered By: PROVIDER TEMP on 10-06-2024 MCV (RBC) [Entitic vol] MCV [Entitic vol ume] by Automated count Low 83.5-101 [facility] MCV Auto (RBC) [Entitic vol] Ordered By: Matheus Robison on 10-06-2024 MCV (RBC) [Entitic vol] MCV [Entitic vol ume] by Automated count 83.5-101 [facility] Monocyte distribution width [Entitic volume] in Blood by AutomatedOrdered By: PROVIDER TEMP on 10-06-2024 Monocyte distribution width Auto (Bld) [Entitic vol] Monocyte distribution width [Entitic volume] in Blood by Automated 0.00-20.00 [facility] Monocytes Auto (Bld) [#/Vol] Ordered By: PROVIDER TEMP on 10-06-2024 Monocytes (Bld) [#/Vol] Automated blood monocyte count 0.0-0.8 [facility] Monocytes Auto (Bld) [#/Vol] Ordered By: Matheus Robison on 10-06-2024 Monocytes (Bld) [#/Vol] Automated blood monocyte count High 0.0-0.8 [facility] Monocytes/100 WBC Auto (Bld) Ordered By: PROVIDER TEMP on 10-06-2024 Monocytes/100 WBC (Bld) Automated monocyte % . [facility] Monocytes/100 WBC Auto (Bld) Ordered By: Matheus Robison on 10-06-2024 Monocytes/100 WBC (Bld) Automated monocyte % . [facility] Mucus [Presence] in Urine by AutomatedOrdered By: Nellie Wynne on 10-06-2024 Mucus Auto Ql (U) Mucus [Presence] in Urine by Automated [facility] Neutrophils Auto (Bld) [#/Vo l]Ordered By: PROVIDER TEMP on 10-06-2024 Neutrophils (Bld) [#/Vol] Neutrophils [#/volume] in Blood by Automated count 1.8-7.7 [facility] Neutrophils Auto (Bld) [#/Vo l]Ordered By: Matheus Robison on 10-06-2024 Neutrophils (Bld) [#/Vol] Neutrophils [#/volume] in Blood by Automated count 1.8-7.7 [facility] Neutrophils/100 WBC Auto (Bl d)Ordered By: PROVIDER TEMP on 10-06-2024 Neutrophils/100 WBC (Bld) Automated neutrophil % . [facility] Neutrophils/100 WBC Auto (Bl d)Ordered By: Matheus Robison on 10-06-2024 Neutrophils/100 WBC (Bld) Automated neutrophil % . [facility] Nitrite Test strip Ql (U)Ord ered By: Nellie Wynne on 10-06-2024 Nitrite Ql (U) Nitrite [Presence] i n Urine by Test strip Negative [facility] No Panel InformationOrdered By: Nellie Wynne on 10-06-2024 Estimated GFR (CKD-EPI) 19.198 mL/Min [facility] Creatinine Clearance (Chem 18.85 [facility] No Panel InformationOrdered By: Matheus Robison on 10-06-2024 Bedside Glucose Comment Glu2: cleaned meter [facility] Glu2: cleaned meter [facility] Estimated GFR (CKD-EPI) 21.133 mL/Min [facility] Creatinine Clearance (Chem 19.49 [facility] 21.133 mL/Min [facility] 19.49 [facility] Nucleated erythrocytes [Pres ence] in Blood by Automated countOrdered By: PROVIDER TEMP on 10-06-2024 Nucleated RBC Auto Ql (Bld) Nucleated erythrocytes [Presence] in Blood by Automated count 0-0.5 [facility] Nucleated erythrocytes [Pres ence] in Blood by Automated countOrdered By: Matheus Robison on 10-06-2024 Nucleated RBC Auto Ql (Bld) Nucleated erythrocytes [Presence] in Blood by Automated count 0-0.5 [facility] Platelet mean volume Auto (B ld) [Entitic vol]Ordered By: PROVIDER TEMP on 10-06-2024 Platelet mean volume (Bld) [Entitic vol] Platelet mean volume [Entitic volume] in Blood by Automated count 6.6-10.1 [facility] Platelet mean volume Auto (B ld) [Entitic vol]Ordered By: Matheus Robison on 10-06-2024 Platelet mean volume (Bld) [Entitic vol] Platelet mean volume [Entitic volume] in Blood by Automated count 6.6-10.1 [facility] Platelets Auto (Bld) [#/Vol] Ordered By: PROVIDER TEMP on 10-06-2024 Platelets (Bld) [#/Vol] Platelets [#/vol ume] in Blood by Automated count 150-450 [facility] Platelets Auto (Bld) [#/Vol] Ordered By: Matheus Robison on 10-06-2024 Platelets (Bld) [#/Vol] Platelets [#/vol ume] in Blood by Automated count 150-450 [facility] Potassium [Moles/volume] in Serum or PlasmaOrdered By: Nellie Wynne on 10-06-2024 Potassium [Moles/Vol] Potassium [Moles/v olume] in Serum or Plasma High 3.5-5.1 [facility] Potassium [Moles/volume] in Serum or PlasmaOrdered By: Matheus Robison on 10-06-2024 Potassium [Moles/Vol] Potassium [Moles/v olume] in Serum or Plasma 3.5-5.1 [facility] Protein Test strip (U) [Mass /Vol]Ordered By: Nellie Wynne on 10-06-2024 Protein (U) [Mass/Vol] Protein [Mass/vol ume] in Urine by Test strip High Negative [facility] Protein [Mass/volume] in Ser um or PlasmaOrdered By: Nellie Wynne on 10-06-2024 Protein [Mass/Vol] Protein [Mass/volume ] in Serum or Plasma 6.4-8.9 [facility] Protein [Mass/volume] in Ser um or PlasmaOrdered By: Matheus Robison on 10-06-2024 Protein [Mass/Vol] Protein [Mass/volume ] in Serum or Plasma Low 6.4-8.9 [facility] RBC Auto (Bld) [#/Vol]Ordere d By: ANTWON SALAZAR on 10-06-2024 RBC (Bld) [#/Vol] Erythrocytes [#/volu me] in Blood by Automated count 3.90-5.60 [facility] RBC Auto (Bld) [#/Vol]Ordere d By: Matheus Robison on 10-06-2024 RBC (Bld) [#/Vol] Erythrocytes [#/volu me] in Blood by Automated count 3.90-5.60 [facility] Serum or plasma albumin/glob ulin mass ratioOrdered By: Nellie Wynne on 10-06-2024 Albumin/Globulin [Mass ratio] Serum or plasma albumin/globulin mass ratio [facility] Serum or plasma albumin/glob ulin mass ratioOrdered By: Matheus Robison on 10-06-2024 Albumin/Globulin [Mass ratio] Serum or plasma albumin/globulin mass ratio [facility] Serum or plasma anion gap de terminationOrdered By: Nellie Wynne on 10-06-2024 Anion gap [Moles/Vol] Serum or plasma an ion gap determination 6.0-15.0 [facility] Serum or plasma anion gap de terminationOrdered By: Matheus Robison on 10-06-2024 Anion gap [Moles/Vol] Serum or plasma an ion gap determination 6.0-15.0 [facility] Sodium [Moles/volume] in Ser um or PlasmaOrdered By: Nellie Wynne on 10-06-2024 Sodium [Moles/Vol] Sodium [Moles/volume ] in Serum or Plasma Low 136-145 [facility] Sodium [Moles/volume] in Ser um or PlasmaOrdered By: Matheus Robison on 10-06-2024 Sodium [Moles/Vol] Sodium [Moles/volume ] in Serum or Plasma 136-145 [facility] Specific gravity Test strip (U) [Rel density]Ordered By: Nellie Wynne on 10-06-2024 Specific gravity (U) [Rel density] Specific gravity of Urine by Test strip 1.001-1.03 0 [facility] Troponin I High Sensitivityo n 10-06-2024 Troponin I High Sensitivity 14.0 pg/mL Normal 0.0-20.0 [facility] Comment on above: Result Comment: PERF ORMED BY: [place] [address] PATHOLOGIST [employer] WORKER SONJA FALLON M.D. Performed By: #### P HOS, MG, [id number], URIC #### [facility] [address] [place], [place] [id number] [facility] Troponin I.cardiac [Mass/vol ume] in Serum or Plasma by Detection limit <= 0.01 ng/Ordered By: Nellie Wynne on 10-06-2024 Troponin I.cardiac DL <= 0.01 ng/mL [Mass/Vol] Troponin I.cardiac [Mass/volume] in Serum or Plasma by Detection limit <= 0.01 ng/ 0.0-20.0 [facility] Urea nitrogen [Mass/volume] in Serum or PlasmaOrdered By: Nellie Wynne on 10-06-2024 Urea nitrogen [Mass/Vol] Urea nitrogen [Mass/volume] in Serum or Plasma [address] [facility] Urea nitrogen [Mass/volume] in Serum or PlasmaOrdered By: Matheus Robison on 10-06-2024 Urea nitrogen [Mass/Vol] Urea nitrogen [Mass/volume] in Serum or Plasma [address] Urine Cultureon 10-06-2024 Bacteria identified Cx Nom (U) <9,000 colonies/ml mixed bacterial skin contaminants 2 Days PERFORMED BY: [place] [address] PATHOLOGIST [employer] WORKER SONJA FALLON M.D. Normal [facility] Comment on above: Performed By: #### C UU, ADDONUAPLUS #### [place] [id number] [facility] Urine cultureOrdered By: Treasure Wynne on 10-06-2024 Bacteria identified Cx Nom (U) Urine culture [facility] Bacteria identified Cx Nom (U) Urine culture [facility] Urobilinogen Test strip (U) [Mass/Vol]Ordered By: Nellie Wynne on 10-06-2024 Urobilinogen (U) [Mass/Vol] Urobilinogen [Mass/volume] in Urine by Test strip Normal [facility] WBC Auto (Bld) [#/Vol]Ordere d By: ANTWON SALAZAR on 10-06-2024 WBC (Bld) [#/Vol] Leukocytes [#/volume ] in Blood by Automated count 4.1-10.5 [facility] WBC Auto (Bld) [#/Vol]Ordere d By: Matheus Robison on 10-06-2024 WBC (Bld) [#/Vol] Leukocytes [#/volume ] in Blood by Automated count 4.1-10.5 [facility] pH Test strip (U)Ordered By: Nellie Wynne on 10-06-2024 pH (U) pH of Urine by Test strip 5.0-9.0 [facility] Complete Blood Count Auto Di ffon 10-05-2024 Basophils (Bld) [#/Vol] 0.0 10*3/uL Normal 0.0-0.2 [facility] Comment on above: Result Comment: PERF ORMED BY: [place] [address] PATHOLOGIST [employer] WORKER SONJA FALLON M.D. Performed By: #### C UU, ADDONUAPLUS #### [address] Basophils/100 WBC (Bld) 0.5 % Normal . Joni bustos [facility] Comment on above: Performed By: #### C UU, ADDONUAPLUS #### [facility] [address] [place] [address] [place] Eosinophils (Bld) [#/Vol] 0.3 10*3/uL Normal 0.0-0.45 [facility] Comment on above: Performed By: #### C UU, ADDONUAPLUS #### [facility] [address] [place] [address] [place] Eosinophils/100 WBC (Bld) 3.6 % Normal . [facility] Comment on above: Performed By: #### C UU, ADDONUAPLUS #### [address] Erythrocyte distribution width (RBC) [Ratio] 13.8 % Normal 12.0-14.8 [facility] Comment on above: Performed By: #### C UU, ADDONUAPLUS #### [address] Hematocrit (Bld) [Volume fraction] 33.5 % Low 38.8-50.0 [facility] Comment on above: Performed By: #### C UU, ADDONUAPLUS #### [address] Hemoglobin (Bld) [Mass/Vol] 11.0 g/dL Low 13.0-17.0 [facility] Comment on above: Performed By: #### C UU, ADDONUAPLUS #### [address] Lymphocytes (Bld) [#/Vol] 2.3 10*3/uL Normal 1.00-4.8 [facility] Comment on above: Performed By: #### C UU, ADDONUAPLUS #### [address] Lymphocytes/100 WBC (Bld) 27.9 % Normal . [facility] Comment on above: Performed By: #### C UU, ADDONUAPLUS #### [address] MCH (RBC) [Entitic mass] 27.6 pg Normal 27.5-35.2 [facility] Comment on above: Performed By: #### C UU, ADDONUAPLUS #### [address] MCV (RBC) [Entitic vol] 83.9 fL Normal 83.5-101 [facility] Comment on above: Performed By: #### C UU, ADDONUAPLUS #### [address] Mean Corpuscular HGB Conc 32.8 g/dL Normal 32.5-35.6 [facility] Comment on above: Performed By: #### C UU, ADDONUAPLUS #### [address] Monocytes (Bld) [#/Vol] 1.1 10*3/uL High 0.0-0.8 [facility] Comment on above: Performed By: #### C UU, ADDONUAPLUS #### [address] Monocytes/100 WBC (Bld) 13.5 % Normal . [facility] Comment on above: Performed By: #### C UU, ADDONUAPLUS #### [address] Neutrophils (Bld) [#/Vol] 4.5 10*3/uL Normal 1.8-7.7 [facility] Comment on above: Performed By: #### C UU, ADDONUAPLUS #### [address] Neutrophils/100 WBC (Bld) 54.5 % Normal . [facility] Comment on above: Performed By: #### C UU, ADDONUAPLUS #### [place] [address] [place] NRBC% 0.1 /100{WBC} Normal 0-0.5 [facility] Comment on above: Performed By: #### C UU, ADDONUAPLUS #### [address] Platelet mean volume (Bld) [Entitic vol] 8.1 fL Normal 6.6-10.1 [facility] Comment on above: Performed By: #### C UU, ADDONUAPLUS #### [place] [address] [place] Platelets (Bld) [#/Vol] 185 10*3/uL Normal 150-450 [facility] Comment on above: Performed By: #### C UU, ADDONUAPLUS #### [place] [address] [place] RBC (Bld) [#/Vol] 3.99 10*6/uL Normal 3.90-5.60 [facility] Comment on above: Performed By: #### C UU, ADDONUAPLUS #### [address] WBC (Bld) [#/Vol] 8.2 10*3/uL Normal 4.1-10.5 [facility] Comment on above: Performed By: #### C UU ADDONUAPLUS #### [address] Comprehensive Metabolic Pane jered 10-05-2024 Albumin [Mass/Vol] 3.5 g/dL Normal 3.5-5.7 [facility] Comment on above: Performed By: #### C UAngus ADDONUAPLUS #### [address] Albumin/Globulin [Mass ratio] 1.3 {ratio} Normal [facility] Comment on above: Performed By: #### C UU ADDONUAPLUS #### [address] ALP [Catalytic activity/Vol] 89 U/L Normal 34-104 [facility] Comment on above: Performed By: #### C UAngus ADDONUAPLUS #### [address] ALT [Catalytic activity/Vol] 18 U/L Normal 7-52 [facility] Comment on above: Performed By: #### C UU, ADDONUAPLUS #### [address] Anion gap [Moles/Vol] 10.4 mmol/L Normal 6.0-15.0 [facility] Comment on above: Performed By: #### C UU ADDONUAPLUS #### [address] AST [Catalytic activity/Vol] 16 U/L Normal 13-39 [facility] Comment on above: Performed By: #### C UU ADDONUAPLUS #### [address] [place] [address] [place] Bilirubin [Mass/Vol] 0.3 mg/dL Normal 0.3-1.0 [facility] Comment on above: Performed By: #### C KAREN ADDONUAPLUS #### [address] Calcium [Mass/Vol] 8.8 mg/dL Normal 8.6-10.3 [facility] Comment on above: Performed By: #### C UAngus ADDONUAPLUS #### [address] Chloride [Moles/Vol] 111 mmol/L High 98-107 [facility] Comment on above: Performed By: #### C KAREN ADDONUAPLUS #### [address] CO2 [Moles/Vol] 21.9 mmol/L Normal 21.0-31.0 [facility] Comment on above: Performed By: #### C KAREN ADDONUAPLUS #### [address] Creatinine [Mass/Vol] 2.63 mg/dL High 0.70-1.30 [facility] Comment on above: Performed By: #### C KAREN ADDONUAPLUS #### [address] Creatinine Clr Calc Pharmacy 24.40 Normal [facility] Comment on above: Performed By: #### C KAREN ADDONUAPLUS #### [address] Estimated GFR 24.749 mL/Min Normal [facility] Comment on above: Performed By: #### C UAngus ADDONUAPLUS #### [address] Globulin (S) [Mass/Vol] 2.6 g/dL Normal [facility] Comment on above: Performed By: #### C UAngus ADDONUAPLUS #### [address] Glucose [Mass/Vol] 160 mg/dL Significant change up 70-100 [facility] Comment on above: Result Comment: [facility] Glucose Reference Range is dependent on time and content of last meal. Glucose of more than 200 mg/dL in a nonstressed, ambulatory subject supports the diagnosis of Diabetes Mellitus. ADA recommended reference range Performed By: #### C UU, ADDONUAPLUS #### [facility] [address] Potassium [Moles/Vol] 5.3 mmol/L High 3.5-5.1 [facility] Comment on above: Performed By: #### C UU, ADDONUAPLUS #### [address] Protein [Mass/Vol] 6.1 g/dL Low 6.4-8.9 [facility] Comment on above: Performed By: #### C UU, ADDONUAPLUS #### [address] Sodium [Moles/Vol] 138 mmol/L Normal 136-145 [facility] Comment on above: Performed By: #### C UU, ADDONUAPLUS #### [address] Urea nitrogen [Mass/Vol] 40 mg/dL High 7-25 [facility] Comment on above: Performed By: #### C UU, ADDONUAPLUS #### [address] ECG 12 lead ECGon 10-05-2024 ECG 12 lead ECG [facility] [place] [address] [place] [address] Electrocardiograph Report Signed Patient: Gage Lugo MR#: [id number] : 1950 Acct:[id number] Age/Sex: 74 / M ADM Date: 10/04/24 Loc: Room: [address] [place] [address] Type: ADM IN Attending Dr: Matheus Robison MD Ordering Provider: Matheus Robison MD Date of Service: 10/05/24 ECG/ECG [...] in Inferior leads Confirmed by Ernie Allison ([id number]) on 10/05/2024 9:54:37 AM Referred By: Electronically Signed By: Ernie Allison Transcribed By: MUS Signed By Ernie Allison MD 10/05/24 0954 Normal [facility] Glucose Poct Glucometerson 1 Glucose [Mass/Vol] 171 mg/dL Normal [facility] Comment on above: Result Comment: [facility] Glucose Reference Range is dependent on time and content of last meal. Glucose of more than 200 mg/dL in a nonstressed, ambulatory subject supports the diagnosis of Diabetes Mellitus. PERFORMED BY: [place] [address] PATHOLOGIST [employer] WORK[employer] SONJA FALLON M.D. Performed By: #### P HOS, MG, [id number], URIC #### [place] [id number] [facility] Glucose [Mass/Vol] 244 mg/dL Normal [facility] Comment on above: Result Comment: [facility] Glucose Reference Range is dependent on time and content of last meal. Glucose of more than 200 mg/dL in a nonstressed, ambulatory subject supports the diagnosis of Diabetes Mellitus. PERFORMED BY: [address] [address] PATHOLOGIST [employer] WORK[employer] SONJA FALLON M.D. Performed By: #### P HOS, MG, [id number], URIC #### [place] [id number] [facility] Glucose [Mass/Vol] 146 mg/dL Normal [facility] Comment on above: Result Comment: [facility] Glucose Reference Range is dependent on time and content of last meal. Glucose of more than 200 mg/dL in a nonstressed, ambulatory subject supports the diagnosis of Diabetes Mellitus. PERFORMED BY: [place] [address] PATHOLOGIST [employer] WORKER SONJA FALLON M.D. Performed By: #### C KAREN, ADDONUAPLUS #### [address] [address] [facility] Magnesiumon 10-05-2024 Magnesium [Mass/Vol] 1.7 mg/dL Low 1.9-2.7 [facility] Comment on above: Result Comment: PERF ORMED BY: [address] [address] PATHOLOGIST [employer] WORK[employer] SONJA FALLON M.D. Performed By: #### C KAREN, ADDONUAPLUS #### [address] [address] [facility] Magnesium [Mass/volume] in S antolin or PlasmaOrdered By: Matheus Robison on 10-05-2024 Magnesium [Mass/Vol] Magnesium [Mass/vol ume] in Serum or Plasma Low 1.9-2.7 [facility] Phosphate [Mass/volume] in S antolin or PlasmaOrdered By: Matheus Robison on 10-05-2024 Phosphate [Mass/Vol] Phosphate [Mass/vol ume] in Serum or Plasma 2.5-4.5 [facility] Phosphoruson 10-05-2024 Phosphate [Mass/Vol] 3.9 mg/dL Normal 2.5-4.5 [facility] Comment on above: Performed By: #### C KAREN, ADDONUAPLUS #### [address] [address] [facility] Alanine aminotransferase [En zymatic activity/volume] in Serum or PlasmaOrdered By: Lolita Adorno on 10-04-2024 ALT [Catalytic activity/Vol] Alanine aminotransferase [Enzymatic activity/volume] in Serum or Plasma [facility] Albumin [Mass/volume] in Ser um or Plasma by Bromocresol green (BCG) dye binding methoOrdered By: Lolita Adorno on 10-04-2024 Albumin BCG dye [Mass/Vol] Albumin [Mass/volume] in Serum or Plasma by Bromocresol green (BCG) dye binding metho 3.5-5.7 [facility] Alkaline phosphatase [Enzyma tic activity/volume] in Serum or PlasmaOrdered By: Lolita Adorno on 10-04-2024 ALP [Catalytic activity/Vol] Alkaline phosphatase [Enzymatic activity/volume] in Serum or Plasma 34-104 [facility] Appearance of UrineOrdered B y: Ernie Vargas on 10-04-2024 Appearance (U) Urine appearance Abnormal Clear [facility] Aspartate aminotransferase [ Enzymatic activity/volume] in Serum or PlasmaOrdered By: Lolita Adorno on 10-04-2024 AST [Catalytic activity/Vol] Aspartate aminotransferase [Enzymatic activity/volume] in Serum or Plasma 13-39 [facility] Bacteria [Presence] in Urine by AutomatedOrdered By: Ernie Vargas on 10-04-2024 Bacteria Auto Ql (U) Bacteria [Presence] in Urine by Automated None Seen [facility] Bilirubin Test strip Ql (U)O rdered By: Ernie Vargas on 10-04-2024 Bilirubin Ql (U) Bilirubin.total [Presence] in Urine by Test strip Negative [facility] Bilirubin.total [Mass/volume ] in Serum or PlasmaOrdered By: Lolita Adorno on 10-04-2024 Bilirubin [Mass/Vol] Bilirubin.total [Mass/volume] in Serum or Plasma 0.3-1.0 [facility] Calcium [Mass/volume] in Ser um or PlasmaOrdered By: Lolita Adorno on 10-04-2024 Calcium [Mass/Vol] Calcium [Mass/volume ] in Serum or Plasma 8.6-10.3 [facility] Carbon dioxide, total [Moles /volume] in Serum or PlasmaOrdered By: Lolita Adorno on 10-04-2024 CO2 [Moles/Vol] Carbon dioxide, tota l [Moles/volume] in Serum or Plasma 21.0-31.0 [facility] Chloride [Moles/volume] in S antolin or PlasmaOrdered By: Lolita Adorno on 10-04-2024 Chloride [Moles/Vol] Chloride [Moles/vol ume] in Serum or Plasma High 98-107 [facility] Color Auto (U)Ordered By: Celso Vargas on 10-04-2024 Color (U) Color of Urine by Auto Yellow [facility] Complete Blood Count Auto Di ffon 10-04-2024 Basophils (Bld) [#/Vol] 0.1 10*3/uL Normal 0.0-0.2 [facility] Comment on above: Result Comment: PERF ORMED BY: [place] [address] PATHOLOGIST [employer] WORKER SONJA FALLON M.D. Performed By: #### P HOS, MG, [id number], URIC #### [address] Basophils/100 WBC (Bld) 0.8 % Normal . [facility] Comment on above: Performed By: #### P HOS, MG, [id number], URIC #### [address] Eosinophils (Bld) [#/Vol] 0.3 10*3/uL Normal 0.0-0.45 [facility] Comment on above: Performed By: #### P HOS, MG, [id number], URIC #### [address] Eosinophils/100 WBC (Bld) 3.6 % Normal . [facility] Comment on above: Performed By: #### P HOS, MG, [id number], URIC #### [address] Erythrocyte distribution width (RBC) [Ratio] 13.9 % Normal 12.0-14.8 [facility] Comment on above: Performed By: #### P HOS, MG, [id number], URIC #### [address] Hematocrit (Bld) [Volume fraction] 34.9 % Low 38.8-50.0 [facility] Comment on above: Performed By: #### P HOS, MG, [id number], URIC #### [address] Hemoglobin (Bld) [Mass/Vol] 11.2 g/dL Low 13.0-17.0 [facility] Comment on above: Performed By: #### P HOS, MG, [id number], URIC #### [address] Lymphocytes (Bld) [#/Vol] 1.8 10*3/uL Normal 1.00-4.8 [facility] Comment on above: Performed By: #### P HOS, MG, [id number], URIC #### [address] Lymphocytes/100 WBC (Bld) 22.2 % Normal . [facility] Comment on above: Performed By: #### P HOS, MG, [id number], URIC #### [address] MCH (RBC) [Entitic mass] 27.1 pg Low 27.5-35.2 [facility] Comment on above: Performed By: #### P HOS, MG, [id number], URIC #### [address] MCV (RBC) [Entitic vol] 84.6 fL Normal 83.5-101 [facility] Comment on above: Performed By: #### P HOS, MG, [id number], URIC #### [address] Mean Corpuscular HGB Conc 32.1 g/dL Low 32.5-35.6 [facility] Comment on above: Performed By: #### P HOS, MG, [id number], URIC #### [address] Monocytes (Bld) [#/Vol] 0.8 10*3/uL Normal 0.0-0.8 [facility] Comment on above: Performed By: #### P HOS, MG, [id number], URIC #### [place] [address] [place] Monocytes/100 WBC (Bld) 16.61 % Normal 0.00-20.00 [facility] Comment on above: Performed By: #### P HOS, MG, [id number], URIC #### [place] [address] [place] Monocytes/100 WBC (Bld) 10.1 % Normal . [facility] Comment on above: Performed By: #### P HOS, MG, [id number], URIC #### [place] [address] [place] Neutrophils (Bld) [#/Vol] 5.1 10*3/uL Normal 1.8-7.7 [facility] Comment on above: Performed By: #### P HOS, MG, [id number], URIC #### [place] [address] [place] Neutrophils/100 WBC (Bld) 63.3 % Normal . [facility] Comment on above: Performed By: #### P HOS, MG, [id number], URIC #### [place] [address] [place] NRBC% 0.1 /100{WBC} Normal 0-0.5 [facility] Comment on above: Performed By: #### P HOS, MG, [id number], URIC #### [facility] [address] [place] [address] [place] Platelet mean volume (Bld) [Entitic vol] 8.0 fL Normal 6.6-10.1 [facility] Comment on above: Performed By: #### P HOS, MG, [id number], URIC #### [place] [address] [place] Platelets (Bld) [#/Vol] 197 10*3/uL Normal 150-450 [facility] Comment on above: Performed By: #### P HOS, MG, [id number], URIC #### [address] RBC (Bld) [#/Vol] 4.13 10*6/uL Normal 3.90-5.60 [facility] Comment on above: Performed By: #### P HOS, MG, [id number], URIC #### [address] WBC (Bld) [#/Vol] 8.1 10*3/uL Normal 4.1-10.5 [facility] Comment on above: Performed By: #### P HOS, MG, [id number], URIC #### [address] Comprehensive Metabolic Pane jered 10-04-2024 Albumin [Mass/Vol] 4.0 g/dL Normal 3.5-5.7 [facility] Comment on above: Performed By: #### P HOS, MG, [id number], URIC #### [address] Albumin/Globulin [Mass ratio] 1.5 {ratio} Normal [facility] Comment on above: Performed By: #### P HOS, MG, [id number], URIC #### [address] ALP [Catalytic activity/Vol] 98 U/L Normal 34-104 [facility] Comment on above: Performed By: #### P HOS, MG, [id number], URIC #### [address] ALT [Catalytic activity/Vol] 19 U/L Normal 7-52 [facility] Comment on above: Performed By: #### P HOS, MG, [id number], URIC #### [address] Anion gap [Moles/Vol] 13.4 mmol/L Normal 6.0-15.0 [facility] Comment on above: Performed By: #### P HOS, MG, [id number], URIC #### [address] AST [Catalytic activity/Vol] 16 U/L Normal 13-39 [facility] Comment on above: Performed By: #### P HOS, MG, [id number], URIC #### [address] Bilirubin [Mass/Vol] 0.4 mg/dL Normal 0.3-1.0 [facility] Comment on above: Performed By: #### P HOS, MG, [id number], URIC #### [address] Calcium [Mass/Vol] 9.0 mg/dL Normal 8.6-10.3 [facility] Comment on above: Performed By: #### P HOS, MG, [id number], URIC #### [address] Chloride [Moles/Vol] 107 mmol/L Normal 98-107 [facility] Comment on above: Performed By: #### P HOS, MG, [id number], URIC #### [address] CO2 [Moles/Vol] 19.7 mmol/L Low 21.0-31.0 [facility] Comment on above: Performed By: #### P HOS, MG, [id number], URIC #### [address] Creatinine [Mass/Vol] 2.62 mg/dL High 0.70-1.30 [facility] Comment on above: Performed By: #### P HOS, MG, [id number], URIC #### [address] Creatinine Clr Calc Pharmacy 24.49 Normal [facility] Comment on above: Result Comment: PERF ORMED BY: [place] [address] PATHOLOGIST [employer] WORKER SONJA FALLON M.D. Performed By: #### P HOS, MG, [id number], URIC #### [facility] [address] Estimated GFR 24.862 mL/Min Normal [facility] Comment on above: Performed By: #### P HOS, MG, [id number], URIC #### [facility] [address] Globulin (S) [Mass/Vol] 2.6 g/dL Normal [facility] Comment on above: Performed By: #### P HOS, MG, [id number], URIC #### [address] Glucose [Mass/Vol] 455 mg/dL Significant change up 70-100 [facility] Comment on above: Result Comment: [facility] Glucose Reference Range is dependent on time and content of last meal. Glucose of more than 200 mg/dL in a nonstressed, ambulatory subject supports the diagnosis of Diabetes Mellitus. ADA recommended reference range Performed By: #### P HOS, MG, [id number], URIC #### [address] Potassium [Moles/Vol] 6.1 mmol/L Off scale high 3.5-5.1 [facility] Comment on above: Result Comment: Crit ical Result Called to and read back by: PRECIOUS CH at: 10/04/2024 18:21:29 by:[id number] Performed By: #### P HOS, MG, [id number], URIC #### [address] Protein [Mass/Vol] 6.6 g/dL Normal 6.4-8.9 [facility] Comment on above: Performed By: #### P HOS, MG, [id number], URIC #### [address] Sodium [Moles/Vol] 134 mmol/L Low 136-145 [facility] Comment on above: Performed By: #### P HOS, MG, [id number], URIC #### [facility] [address] Urea nitrogen [Mass/Vol] 39 mg/dL High 7-25 [facility] Comment on above: Performed By: #### P HOS, MG, [id number], URIC #### [address] Albumin [Mass/Vol] 3.9 g/dL Normal 3.5-5.7 [facility] Comment on above: Order Comment: NONFA STING.JKW Performed By: #### C MP #### [address] Albumin/Globulin [Mass ratio] 1.5 {ratio} Normal [facility] Comment on above: Order Comment: NONFA STING.JKW Performed By: #### C MP #### [address] ALP [Catalytic activity/Vol] 97 U/L Normal 34-104 [facility] Comment on above: Order Comment: NONFA STING.JKW Result Comment: PERF ORMED BY: [place] [address] PATHOLOGIST [employer] WORKER SONJA FALLON M.D. Performed By: #### C MP #### [address] ALT [Catalytic activity/Vol] 20 U/L Normal 7-52 [facility] Comment on above: Order Comment: NONFA STING.JKW Performed By: #### C MP #### [address] Anion gap [Moles/Vol] 10.3 mmol/L Normal 6.0-15.0 [facility] Comment on above: Order Comment: NONFA STING.JKW Performed By: #### C MP #### [address] AST [Catalytic activity/Vol] 15 U/L Normal 13-39 [facility] Comment on above: Order Comment: NONFA STING.JKW Performed By: #### C MP #### [address] Bilirubin [Mass/Vol] 0.5 mg/dL Normal 0.3-1.0 [facility] Comment on above: Order Comment: NONFA STING.JKW Performed By: #### C MP #### [address] Calcium [Mass/Vol] 9.1 mg/dL Normal 8.6-10.3 [facility] Comment on above: Order Comment: NONFA STING.JKW Performed By: #### C MP #### [address] Chloride [Moles/Vol] 110 mmol/L High 98-107 [facility] Comment on above: Order Comment: NONFA STING.JKW Performed By: #### C MP #### [address] CO2 [Moles/Vol] 22.3 mmol/L Normal 21.0-31.0 [facility] Comment on above: Order Comment: NONFA STING.JKW Performed By: #### C MP #### [address] Creatinine [Mass/Vol] 2.62 mg/dL High 0.70-1.30 [facility] Comment on above: Order Comment: NONFA STING.JKW Performed By: #### C MP #### [address] Estimated GFR 24.862 mL/Min Normal [facility] Comment on above: Order Comment: NONFA STING.JKW Performed By: #### C MP #### [address] Globulin (S) [Mass/Vol] 2.6 g/dL Normal [facility] Comment on above: Order Comment: NONFA STING.JKW Performed By: #### C MP #### [address] Glucose [Mass/Vol] 327 mg/dL High 70-100 [facility] Comment on above: Order Comment: NONFA STING.JKW Result Comment: [place] [facility] Glucose Reference Range is dependent on time and content of last meal. Glucose of more than 200 mg/dL in a nonstressed, ambulatory subject supports the diagnosis of Diabetes Mellitus. ADA recommended reference range Performed By: #### C MP #### [facility] [address] [place] [address] [place] Potassium [Moles/Vol] 6.6 mmol/L Off scale high 3.5-5.1 [facility] Comment on above: Order Comment: NONFA STING.JKW Result Comment: Crit ical Result Called to and read back by: SARAH BETH GOMEZ at: 10/04/2024 16:01:19 by:[id number] Performed By: #### C MP #### [facility] [address] [place] [address] [place] Protein [Mass/Vol] 6.5 g/dL Normal 6.4-8.9 [facility] Comment on above: Order Comment: NONFA STING.JKW Performed By: #### C MP #### [facility] [address] [place] [id number] [place] Sodium [Moles/Vol] 136 mmol/L Normal 136-145 [facility] Comment on above: Order Comment: NONFA STING.JKW Performed By: #### C MP #### [facility] [address] [place] [id number] [place] Urea nitrogen [Mass/Vol] 39 mg/dL High 7-25 [facility] Comment on above: Order Comment: NONFA STING.JKW Performed By: #### C MP #### [facility] [address] [place] [id number] [place] Creatinine [Mass/volume] in Serum or PlasmaOrdered By: Lolita Adorno on 10-04-2024 Creatinine [Mass/Vol] Creatinine [Mass/v olume] in Serum or Plasma High 0.70-1.30 [facility] Dipstick and Microscopicon 1 Appearance (U) Cloudy Critically abnormal Clear [facility] Comment on above: Order Comment: Name Collection Type:: Voided Performed By: #### C UU, ADDONUAPLUS #### [address] Bacteria,Urine Rare Normal None Seen [facility] Comment on above: Order Comment: Name Collection Type:: Voided Performed By: #### C UU, ADDONUAPLUS #### [address] Bilirubin,Urine Negative Normal Negative [facility] Comment on above: Order Comment: Name Collection Type:: Voided Performed By: #### C UU, ADDONUAPLUS #### [address] Color (U) Light-Yellow Normal Yellow [facility] Comment on above: Order Comment: Name Collection Type:: Voided Performed By: #### C UU, ADDONUAPLUS #### [address] Glucose Ql (U) >= High Normal [facility] Comment on above: Order Comment: Name Collection Type:: Voided Performed By: #### C UU, ADDONUAPLUS #### [address] Hyaline Casts,Urine None Normal 0-8 [facility] Comment on above: Order Comment: Name Collection Type:: Voided Performed By: #### C UU, ADDONUAPLUS #### [address] Ketones Ql (U) Negative Normal Negative [facility] Comment on above: Order Comment: Name Collection Type:: Voided Performed By: #### C UU, ADDONUAPLUS #### [address] Leukocyte esterase Test strip Ql (U) 4+ High Negative [facility] Comment on above: Order Comment: Name Collection Type:: Voided Performed By: #### C UU, ADDONUAPLUS #### [place] [address] Mucus,Urine Rare Normal [facility] Comment on above: Order Comment: Name Collection Type:: Voided Result Comment: PERF ORMED BY: [place] [address] PATHOLOGIST GLASS WORKER SONJA FALLON M.D. Performed By: #### C UU, ADDONUAPLUS #### [place] [address] [place] Nitrite,Urine Negative Normal Negative [facility] Comment on above: Order Comment: Name Collection Type:: Voided Performed By: #### C UU, ADDONUAPLUS #### [address] Occult Blood,Urine Negative Normal Negative [facility] Comment on above: Order Comment: Name Collection Type:: Voided Result Comment: PERF ORMED BY: [place] [address] PATHOLOGIST GLASS WORKER SONJA FALLON M.D. Performed By: #### C UU, ADDONUAPLUS #### [address] pH (U) 5.5 [pH] Normal 5.0-9.0 [facility] Comment on above: Order Comment: Name Collection Type:: Voided Performed By: #### C UU, ADDONUAPLUS #### [address] Protein (U) [Mass/Vol] 20 mg/dL High Negative [facility] Comment on above: Order Comment: Name Collection Type:: Voided Performed By: #### C UU, ADDONUAPLUS #### [address] RBC,Urine 1 [HPF] Normal 0-4 [facility] Comment on above: Order Comment: Name Collection Type:: Voided Performed By: #### C UU, ADDONUAPLUS #### [address] Specificy [place],Urine 1.011 Normal 1.00 1-1.03 0 [facility] Comment on above: Order Comment: Name Collection Type:: Voided Performed By: #### C UU, ADDONUAPLUS #### [address] Squamous Epithelial Cell,Urine 1 [HPF] Normal 0-2 [facility] Comment on above: Order Comment: Name Collection Type:: Voided Performed By: #### C UU, ADDONUAPLUS #### [address] Urobilinogen,Urine Normal Normal Normal [facility] Comment on above: Order Comment: Name Collection Type:: Voided Performed By: #### C UU, ADDONUAPLUS #### [address] WBC CLUMP, Urine Moderate High None Seen [facility] Comment on above: Order Comment: Name Collection Type:: Voided Performed By: #### C UU, ADDONUAPLUS #### [address] WBC,Urine 50 [HPF] High 0-4 [facility] Comment on above: Order Comment: Name Collection Type:: Voided Performed By: #### C UU, ADDONUAPLUS #### [address] ECG 12 lead ECGon 10-04-2024 ECG 12 lead ECG [facility] [place] [address] [place] [address] Electrocardiograph Report Signed Patient: Gage Lugo MR#: [id number] : 1950 Acct:[id number] Age/Sex: 74 / M ADM Date: 10/04/24 Loc: ER Room: Type: [facility] ER Attending Dr: Ordering Provider: Ernie Vargas [...] Inferior leads Confirmed by Silvio Klein DO ([id number]) on 10/04/2024 7:03:36 PM Referred By: Electronically Signed By: Silvio Klein DO Transcribed By: MUS Signed By Silvio Klein DO 4 [phone] Normal [facility] Epithelial cells.squamous [# /area] in Urine sediment by Automated countOrdered By: Ernie Vargas on 10-04-2024 Epithelial cells.squamous Auto (Urine sed) [#/Area] Epithelial cells.squamous [#/area] in Urine sediment by Automated count 0-2 [facility] Erythrocytes [#/area] in Uri ne sediment by Automated countOrdered By: Ernie Vargas on 10-04-2024 RBC Auto (Urine sed) [#/Area] Erythrocytes [#/area] in Urine sediment by Automated count 0-4 [facility] Globulin Calc (S) [Mass/Vol] Ordered By: Lolita Adorno on 10-04-2024 Globulin (S) [Mass/Vol] Serum globulin measurement by calculation (mass/volume) [facility] Glucose Poct Glucometerson 1 Glucose [Mass/Vol] 236 mg/dL Normal [facility] Comment on above: Result Comment: [facility] Glucose Reference Range is dependent on time and content of last meal. Glucose of more than 200 mg/dL in a nonstressed, ambulatory subject supports the diagnosis of Diabetes Mellitus. PERFORMED BY: [place] [address] PATHOLOGIST GLASS WORKER SONJA FALLON M.D. Performed By: #### C UU, ADDONUAPLUS #### [address] Glucose [Mass/volume] in Ser um or PlasmaOrdered By: Lolita Adorno on 10-04-2024 Glucose [Mass/Vol] Glucose [Mass/volume ] in Serum or Plasma High 70-100 [facility] Comment on above: ADA recommended refe [...] in Urine by Test strip High Normal [facility] Hemoglobin Test strip Ql (U) Ordered By: Ernie Vargas on 10-04-2024 Hemoglobin Ql (U) Hemoglobin [Presence ] in Urine by Test strip Negative [facility] Hyaline casts [#/area] in Ur ine sediment by Automated countOrdered By: Ernie Vargas on 10-04-2024 Hyaline casts Auto (Urine sed) [#/Area] Hyaline casts [#/area] in Urine sediment by Automated count 0-8 [facility] Ketones Test strip Ql (U)Ord ered By: Ernie Vargas on 10-04-2024 Ketones Ql (U) Ketones [Presence] i n Urine by Test strip Negative [facility] Leukocyte clumps [Presence] in Urine by AutomatedOrdered By: Ernie Vargas on 10-04-2024 Leukocyte clumps Auto Ql (U) Leukocyte clumps [Presence] in Urine by Automated High None Seen [facility] Leukocyte esterase [Presence ] in Urine by Test stripOrdered By: Ernie Vargas on 10-04-2024 Leukocyte esterase Test strip Ql (U) Leukocyte esterase [Presence] in Urine by Test strip High Negative [facility] Leukocytes [#/area] in Urine sediment by Automated countOrdered By: Ernie Vargas on 10-04-2024 WBC Auto (Urine sed) [#/Area] Leukocytes [#/area] in Urine sediment by Automated count High 0-4 [facility] Monocyte distribution width [Entitic volume] in Blood by AutomatedOrdered By: Ernie Vargas on 10-04-2024 Monocyte distribution width Auto (Bld) [Entitic vol] Monocyte distribution width [Entitic volume] in Blood by Automated 0.00-20.00 [facility] Mucus [Presence] in Urine by AutomatedOrdered By: Ernie Vargas on 10-04-2024 Mucus Auto Ql (U) Mucus [Presence] in Urine by Automated [facility] Nitrite Test strip Ql (U)Ord ered By: Ernie Vargas on 10-04-2024 Nitrite Ql (U) Nitrite [Presence] i n Urine by Test strip Negative [facility] No Panel InformationOrdered By: Ernie Vargas on 10-04-2024 Blood Gas Critical Value See comment [facility] Comment on above: Critical Value stu kumar on: 10/04/2024 at 17:47 Blood Gas Sample Site Venous [facility] FiO2 21 % [facility] Venous Blood Base Excess -7.8 mmol/L Low -3.0-3.0 [facility] Venous Blood Oxygen Content 6.8 mmol/L 6.6-9.7 [facility] Venous Blood Oxygen Saturation 95.2 % Critically high 73.0-76.0 [facility] Venous Blood Partial Pressure CO2 34.4 mm[Hg] Low 38.0-50.0 [facility] Venous Blood Partial Pressure O2 73.8 mm[Hg] High 35.0-45.0 [facility] Venous Blood pH 7.32 7.32-7.43 [facility] 7.32 7.32-7.43 [facility] 34.4 mm[Hg] Low 38.0-50.0 [facility] 73.8 mm[Hg] High 35.0-45.0 [facility] 17.4 mmol/L Low 23.0-29.0 [facility] -7.8 mmol/L Low -3.0-3.0 [facility] 95.2 % Critically high 73.0-76.0 [facility] 6.8 mmol/L 6.6-9.7 [facility] 18.4 mmol/L Low 24.0-29.0 [facility] 21 % [facility] Venous [facility] See comment [facility] No Panel InformationOrdered By: Lolita Adorno on 10-04-2024 Estimated GFR (CKD-EPI) 24.862 mL/Min [facility] Creatinine Clearance (Chem N/A [facility] 24.862 mL/Min [facility] N/A [facility] Potassium [Moles/volume] in Serum or PlasmaOrdered By: Lolita Adorno on 10-04-2024 Potassium [Moles/Vol] Potassium [Moles/v olume] in Serum or Plasma Critically high 3.5-5.1 [facility] Comment on above: Critical Result Call ed to and read back by: SARAH BETH GOMEZ at: 10/04/2024 16:01:19 by:[id number] Protein Test strip (U) [Mass /Vol]Ordered By: Ernie Vargas on 10-04-2024 Protein (U) [Mass/Vol] Protein [Mass/vol ume] in Urine by Test strip High Negative [facility] Protein [Mass/volume] in Ser um or PlasmaOrdered By: Lolita Adorno on 10-04-2024 Protein [Mass/Vol] Protein [Mass/volume ] in Serum or Plasma 6.4-8.9 [facility] Serum or plasma albumin/glob ulin mass ratioOrdered By: Lolita Adorno on 10-04-2024 Albumin/Globulin [Mass ratio] Serum or plasma albumin/globulin mass ratio [facility] Serum or plasma anion gap de terminationOrdered By: Lolita Adorno on 10-04-2024 Anion gap [Moles/Vol] Serum or plasma an ion gap determination 6.0-15.0 [facility] Sodium [Moles/volume] in Ser um or PlasmaOrdered By: Lolita Adorno on 10-04-2024 Sodium [Moles/Vol] Sodium [Moles/volume ] in Serum or Plasma 136-145 [facility] Specific gravity Test strip (U) [Rel density]Ordered By: Ernie Vargas on 10-04-2024 Specific gravity (U) [Rel density] Specific gravity of Urine by Test strip 1.001-1.03 0 [facility] Urea nitrogen [Mass/volume] in Serum or PlasmaOrdered By: Lolita Adorno on 10-04-2024 Urea nitrogen [Mass/Vol] Urea nitrogen [Mass/volume] in Serum or Plasma High 7-25 [facility] Urine Cultureon 10-04-2024 Bacteria identified Cx Nom (U) ORGANISM: Escherichia coli (O:ESCCOL) [place] Count >100,000 Aerobic TREASURE Charge (NMIC56) - [...] RESISTANT TO ALL B-LACTAM DRUGS. PERFORMED BY: [facility] [address] [place] [address] PATHOLOGIST GLASS WORKER SONJA FALLON M.D. Normal [facility] Comment on above: Performed By: #### C LAMONTE JONES #### [place] [id number] [facility] Urine cultureOrdered By: Micheal maxwellthaddeus Alicia on 10-04-2024 Bacteria identified Cx Nom (U) Escherichia coli Abnormal [facility] Escherichia coli Escherichia coli Abnormal [facility] Escherichia coli Escherichia coli Abnormal [facility] Urobilinogen Test strip (U) [Mass/Vol]Ordered By: Ernie Vargas on 10-04-2024 Urobilinogen (U) [Mass/Vol] Urobilinogen [Mass/volume] in Urine by Test strip Normal [facility] Venous Blood GasOrdered By: Ernie Vargas on 10-04-2024 CO2 [Moles/Vol] 18.4 mmol/L Low 24.0-29.0 [facility] Comment on above: Performed By: #### P HOS, MG, [id number], URIC #### [address] HCO3 (Bld) [Moles/Vol] 17.4 mmol/L Low 23.0-29.0 [facility] Comment on above: Performed By: #### P HOS, MG, [id number], URIC #### [address] Venous Blood Gason Respiratory Critical Normal [facility] Comment on above: Result Comment: Crit ical Value called on: 10/04/2024 at 17:47 PERFORMED BY: [place] [address] PATHOLOGIST GLASS WORKER SONJA FALLON M.D. Performed By: #### P HOS, MG, [id number], URIC #### [address] VBG Base Excess -7.8 mmol/L Low -3.0-3.0 [facility] Comment on above: Performed By: #### P HOS, MG, [id number], URIC #### [address] VBG Draw Site Venous Normal [facility] Comment on above: Performed By: #### P HOS, MG, [id number], URIC #### [address] VBG Frac Inspired O2 21 % Normal [facility] Comment on above: Performed By: #### P HOS, MG, [id number], URIC #### [address] VBG O2 Content 6.8 mmol/L Normal 6.6-9.7 [facility] Comment on above: Performed By: #### P HOS, MG, [id number], URIC #### [address] VBG Oxygen Saturation 95.2 % Off scale high 73.0-76.0 [facility] Comment on above: Performed By: #### P HOS, MG, [id number], URIC #### [address] VBG PCO2 34.4 mm[Hg] Low 38.0-50.0 [facility] Comment on above: Performed By: #### P HOS, MG, [id number], URIC #### [address] VBG PH Venous PH 7.32 Normal 7.32-7.43 [facility] Comment on above: Performed By: #### P HOS, MG, [id number], URIC #### [address] VBG PO2 73.8 mm[Hg] High 35.0-45.0 [facility] Comment on above: Performed By: #### P HOS, MG, [id number], URIC #### [address] pH Test strip (U)Ordered By: Ernie Vargas on 10-04-2024 pH (U) pH of Urine by Test strip 5.0-9.0 [facility] XR SPINE CERVICAL 3 VWS OR L ESSon 12-12-2024 XR SPINE CERVICAL 3 VWS OR LESS XR SPINE CERVICAL 3 VWS OR LESS XR SPINE CERVICAL 3 VWS OR LESS History: Stenosis of cervical spine with myelopathy ([facility]) Findings: There is no fracture or destructive lesion. Impression: * No acute findings. * Diffuse disc disease and facet arthritis hardware unchanged from July 21, 2024. * Consider MRI if you would like to assess for stenosis and/or radiculopathy or other occult process. Finalized by Ricci Herbert MD on 09/16/2024 4:42 PM Normal [facility] XR SPINE LUMBAR 2 OR 3 VWSon [...] Herbert MD on 09/16/2024 4:41 PM Normal [facility] Albumin [Mass/volume] in Ser um or Plasma by Bromocresol green (BCG) dye binding methoOrdered By: Nette Holden on 08-23-2024 Albumin BCG dye [Mass/Vol] Albumin [Mass/volume] in Serum or Plasma by Bromocresol green (BCG) dye binding metho 3.5-5.7 [facility] Appearance of UrineOrdered B y: Nette Holden on 08-23-2024 Appearance (U) Urine appearance Abnormal Clear [facility] Bacteria [Presence] in Urine by AutomatedOrdered By: Nette Holden on 08-23-2024 Bacteria Auto Ql (U) Bacteria [Presence] in Urine by Automated High None Seen [facility] Bilirubin Test strip Ql (U)O rdered By: Nette Holden on 08-23-2024 Bilirubin Ql (U) Bilirubin.total [Presence] in Urine by Test strip Negative [facility] Calcium [Mass/volume] in Ser um or PlasmaOrdered By: Nette Holden on 08-23-2024 Calcium [Mass/Vol] Calcium [Mass/volume ] in Serum or Plasma 8.6-10.3 [facility] Carbon dioxide, total [Moles /volume] in Serum or PlasmaOrdered By: Nette Holden on 08-23-2024 CO2 [Moles/Vol] Carbon dioxide, tota l [Moles/volume] in Serum or Plasma 21.0-31.0 [facility] Chloride [Moles/volume] in S antolin or PlasmaOrdered By: Nette Holden on 08-23-2024 Chloride [Moles/Vol] Chloride [Moles/vol ume] in Serum or Plasma High 98-107 [facility] Color Auto (U)Ordered By: Ab emanuel Holden on 08-23-2024 Color (U) Color of Urine by Auto [facility] Creatinine [Mass/volume] in Serum or PlasmaOrdered By: Nette Holden on 08-23-2024 Creatinine [Mass/Vol] Creatinine [Mass/v olume] in Serum or Plasma High 0.70-1.30 [facility] Creatinine [Mass/volume] in UrineOrdered By: Nette Holden on 08-23-2024 Creatinine (U) [Mass/Vol] Creatinine [Mass/volume] in Urine [facility] Comment on above: No reference range e stablished Dipstick and Microscopicon 1 10-23-2023 Appearance (U) Cloudy Critically abnormal Clear [facility] Comment on above: Order Comment: Reaso n for Exam Chronic kidney disease, stage III (moderate);Diabetes mellit Reason for Exam Chronic kidney disease, stage 3 unspecified;Anemia of renal Performed By: #### P HOS, MG, [id number], URIC #### [facility] [address] [place] [address] [place] Bacteria,Urine 4+ High None Seen [facility] Comment on above: Order Comment: Reaso n for Exam Chronic kidney disease, stage III (moderate);Diabetes mellit Reason for Exam Chronic kidney disease, stage 3 unspecified;Anemia of renal Performed By: #### P HOS, MG, [id number], URIC #### [facility] [address] [place] [id number] [place] Bilirubin,Urine Negative Normal Negative [facility] Comment on above: Order Comment: Reaso n for Exam Chronic kidney disease, stage III (moderate);Diabetes mellit Reason for Exam Chronic kidney disease, stage 3 unspecified;Anemia of renal Performed By: #### P HOS, MG, [id number], URIC #### [facility] [address] [place] Yeast,Urine 2+ High None Seen [facility] Comment on above: Order Comment: Reaso n for Exam Chronic kidney disease, stage III (moderate);Diabetes mellit Reason for Exam Chronic kidney disease, stage 3 unspecified;Anemia of renal Result Comment: PERF ORMED BY: [place] [address] PATHOLOGIST GLASS WORKER SONJA FALLON M.D. Performed By: #### P HOS, MG, [id number], URIC #### [facility] [address] Color (U) Light-Yellow Normal Yellow [facility] Comment on above: Order Comment: Reaso n for Exam Chronic kidney disease, stage III (moderate);Diabetes mellit Reason for Exam Chronic kidney disease, stage 3 unspecified;Anemia of renal Performed By: #### P HOS, MG, [id number], URIC #### [address] Glucose Ql (U) Normal Normal Normal [facility] Comment on above: Order Comment: Reaso n for Exam Chronic kidney disease, stage III (moderate);Diabetes mellit Reason for Exam Chronic kidney disease, stage 3 unspecified;Anemia of renal Performed By: #### P HOS, MG, [id number], URIC #### [facility] [address] Hyaline Casts,Urine None Normal 0-8 [facility] Comment on above: Order Comment: Reaso n for Exam Chronic kidney disease, stage III (moderate);Diabetes mellit Reason for Exam Chronic kidney disease, stage 3 unspecified;Anemia of renal Performed By: #### P HOS, MG, [id number], URIC #### [facility] [address] Ketones Ql (U) Negative Normal Negative [facility] Comment on above: Order Comment: Reaso n for Exam Chronic kidney disease, stage III (moderate);Diabetes mellit Reason for Exam Chronic kidney disease, stage 3 unspecified;Anemia of renal Performed By: #### P HOS, MG, [id number], URIC #### [facility] [address] Leukocyte esterase Test strip Ql (U) 4+ High Negative [facility] Comment on above: Order Comment: Reaso n for Exam Chronic kidney disease, stage III (moderate);Diabetes mellit Reason for Exam Chronic kidney disease, stage 3 unspecified;Anemia of renal Performed By: #### P HOS, MG, [id number], URIC #### [facility] [address] Mucus,Urine Rare Normal [facility] Comment on above: Order Comment: Reaso n for Exam Chronic kidney disease, stage III (moderate);Diabetes mellit Reason for Exam Chronic kidney disease, stage 3 unspecified;Anemia of renal Performed By: #### P HOS, MG, [id number], URIC #### [facility] [address] Nitrite,Urine Negative Normal Negative [facility] Comment on above: Order Comment: Reaso n for Exam Chronic kidney disease, stage III (moderate);Diabetes mellit Reason for Exam Chronic kidney disease, stage 3 unspecified;Anemia of renal Performed By: #### P HOS, MG, [id number], URIC #### [facility] [address] [place] [id number] [facility] Occult Blood,Urine Negative Normal Negative [facility] Comment on above: Order Comment: Reaso n for Exam Chronic kidney disease, stage III (moderate);Diabetes mellit Reason for Exam Chronic kidney disease, stage 3 unspecified;Anemia of renal Performed By: #### P HOS, MG, [id number], URIC #### [facility] [address] [place] [id number] [facility] pH (U) 5.5 [pH] Normal 5.0-9.0 [facility] Comment on above: Order Comment: Reaso n for Exam Chronic kidney disease, stage III (moderate);Diabetes mellit Reason for Exam Chronic kidney disease, stage 3 unspecified;Anemia of renal Performed By: #### P HOS, MG, [id number], URIC #### [facility] [address] Protein (U) [Mass/Vol] 50 mg/dL High Negative [facility] Comment on above: Order Comment: Reaso n for Exam Chronic kidney disease, stage III (moderate);Diabetes mellit Reason for Exam Chronic kidney disease, stage 3 unspecified;Anemia of renal Performed By: #### P HOS, MG, [id number], URIC #### [address] RBC,Urine 5 [HPF] High 0-4 [facility] Comment on above: Order Comment: Reaso n for Exam Chronic kidney disease, stage III (moderate);Diabetes mellit Reason for Exam Chronic kidney disease, stage 3 unspecified;Anemia of renal Performed By: #### P HOS, MG, [id number], URIC #### [address] Specificy [place],Urine 1.012 Normal 1.00 1-1.03 0 [facility] Comment on above: Order Comment: Reaso n for Exam Chronic kidney disease, stage III (moderate);Diabetes mellit Reason for Exam Chronic kidney disease, stage 3 unspecified;Anemia of renal Performed By: #### P HOS, MG, [id number], URIC #### [facility] [address] Squamous Epithelial Cell,Urine 1 [HPF] Normal 0-2 [facility] Comment on above: Order Comment: Reaso n for Exam Chronic kidney disease, stage III (moderate);Diabetes mellit Reason for Exam Chronic kidney disease, stage 3 unspecified;Anemia of renal Performed By: #### P HOS, MG, [id number], URIC #### [address] Urobilinogen,Urine Normal Normal Normal [facility] Comment on above: Order Comment: Reaso n for Exam Chronic kidney disease, stage III (moderate);Diabetes mellit Reason for Exam Chronic kidney disease, stage 3 unspecified;Anemia of renal Performed By: #### P HOS, MG, [id number], URIC #### [facility] [address] WBC CLUMP, Urine Many High None Seen [facility] Comment on above: Order Comment: Reaso n for Exam Chronic kidney disease, stage III (moderate);Diabetes mellit Reason for Exam Chronic kidney disease, stage 3 unspecified;Anemia of renal Performed By: #### P HOS, MG, [id number], URIC #### [facility] [address] WBC,Urine Innumerable High 0-4 [facility] Comment on above: Order Comment: Reaso n for Exam Chronic kidney disease, stage III (moderate);Diabetes mellit Reason for Exam Chronic kidney disease, stage 3 unspecified;Anemia of renal Performed By: #### P HOS, MG, [id number], URIC #### [facility] [address] Epithelial cells.squamous [# /area] in Urine sediment by Automated countOrdered By: Nette Adina on 08-23-2024 Epithelial cells.squamous Auto (Urine sed) [#/Area] Epithelial cells.squamous [#/area] in Urine sediment by Automated count 0-2 [facility] Erythrocyte distribution wid th Auto (RBC) [Ratio]Ordered By: Nette Adina on 08-23-2024 Erythrocyte distribution width (RBC) [Ratio] Erythrocyte distribution width [Ratio] by Automated count 12.0-14.8 [facility] Erythrocytes [#/area] in Uri ne sediment by Automated countOrdered By: Nette Adina on 08-23-2024 RBC Auto (Urine sed) [#/Area] Erythrocytes [#/area] in Urine sediment by Automated count High 0-4 [facility] Glucose [Mass/volume] in Ser um or PlasmaOrdered By: Nette Adina on 08-23-2024 Glucose [Mass/Vol] Glucose [Mass/volume ] in Serum or Plasma High 70-100 [facility] Comment on above: ADA recommended refe [...] [Mass/volume] in Urine by Test strip Normal [facility] Hematocrit Auto (Bld) [Volum e fraction]Ordered By: Nette Holden on 08-23-2024 Hematocrit (Bld) [Volume fraction] Hematocrit [Volume Fraction] of Blood by Automated count Low 38.8-50.0 [facility] Hemoglobin Test strip Ql (U) Ordered By: Nette Holden on 08-23-2024 Hemoglobin Ql (U) Hemoglobin [Presence ] in Urine by Test strip Negative [facility] Hemoglobin [Mass/volume] in BloodOrdered By: Nette Holden on 08-23-2024 Hemoglobin (Bld) [Mass/Vol] Hemoglobin [Mass/volume] in Blood Low 13.0-17.0 [facility] Hemogram CBC Without Diffon 08-23-2024 Erythrocyte distribution width (RBC) [Ratio] 14.0 % Normal 12.0-14.8 [facility] Comment on above: Performed By: #### P HOS, MG, [id number], URIC #### [facility] [address] Hematocrit (Bld) [Volume fraction] 36.7 % Low 38.8-50.0 [facility] Comment on above: Performed By: #### P HOS, MG, [id number], URIC #### [facility] [address] Hemoglobin (Bld) [Mass/Vol] 11.8 g/dL Low 13.0-17.0 [facility] Comment on above: Performed By: #### P HOS, MG, [id number], URIC #### [facility] [address] MCH (RBC) [Entitic mass] 27.7 pg Normal 27.5-35.2 [facility] Comment on above: Performed By: #### P HOS, MG, [id number], URIC #### [address] MCV (RBC) [Entitic vol] 86.2 fL Normal 83.5-101 [facility] Comment on above: Performed By: #### P HOS, MG, [id number], URIC #### [address] Mean Corpuscular HGB Conc 32.1 g/dL Low 32.5-35.6 [facility] Comment on above: Performed By: #### P HOS, MG, [id number], URIC #### [address] Platelet mean volume (Bld) [Entitic vol] 8.5 fL Normal 6.6-10.1 [facility] Comment on above: Result Comment: PERF ORMED BY: [place] [address] PATHOLOGIST GLASS WORKER SONJA FALLON M.D. Performed By: #### P HOS, MG, [id number], URIC #### [address] Platelets (Bld) [#/Vol] 189 10*3/uL Normal 150-450 [facility] Comment on above: Performed By: #### P HOS, MG, [id number], URIC #### [address] RBC (Bld) [#/Vol] 4.26 10*6/uL Normal 3.90-5.60 [facility] Comment on above: Performed By: #### P HOS, MG, [id number], URIC #### [address] WBC (Bld) [#/Vol] 8.7 10*3/uL Normal 4.1-10.5 [facility] Comment on above: Performed By: #### P HOS, MG, [id number], URIC #### [facility] [id number] [facility] Hyaline casts [#/area] in Ur ine sediment by Automated countOrdered By: Nette Holden on 08-23-2024 Hyaline casts Auto (Urine sed) [#/Area] Hyaline casts [#/area] in Urine sediment by Automated count 0-8 [facility] Ketones Test strip Ql (U)Ord ered By: Nette Holden on 08-23-2024 Ketones Ql (U) Ketones [Presence] i n Urine by Test strip Negative [facility] Leukocyte clumps [Presence] in Urine by AutomatedOrdered By: Nette Holden on 08-23-2024 Leukocyte clumps Auto Ql (U) Leukocyte clumps [Presence] in Urine by Automated High None Seen [facility] Leukocyte esterase [Presence ] in Urine by Test stripOrdered By: Nette Holden on 08-23-2024 Leukocyte esterase Test strip Ql (U) Leukocyte esterase [Presence] in Urine by Test strip High Negative [facility] Leukocytes [#/area] in Urine sediment by Automated countOrdered By: Nette Holden on 08-23-2024 WBC Auto (Urine sed) [#/Area] Leukocytes [#/area] in Urine sediment by Automated count High 0-4 [facility] Leukocytes [#/volume] correc ruben for nucleated erythrocytes in Blood by Automated counOrdered By: Nette Holden on 08-23-2024 WBC corrected for nucl RBC Auto (Bld) [#/Vol] Leukocytes [#/volume] corrected for nucleated erythrocytes in Blood by Automated coun 4.1-10.5 [facility] MCH Auto (RBC) [Entitic mass ]Ordered By: Nette Burnettr on 08-23-2024 MCH (RBC) [Entitic mass] MCH [Entitic mass] by Automated count 27.5-35.2 [facility] MCHC Auto (RBC) [Mass/Vol]Or dered By: Nette Burnettr on 08-23-2024 MCHC (RBC) [Mass/Vol] MCHC [Mass/volume] by Automated count Low 32.5-35.6 [facility] MCV Auto (RBC) [Entitic vol] Ordered By: Nette Holden on 08-23-2024 MCV (RBC) [Entitic vol] MCV [Entitic vol ume] by Automated count 83.5-101 [facility] Magnesiumon 08-23-2024 Magnesium [Mass/Vol] 1.8 mg/dL Low 1.9-2.7 [facility] Comment on above: Performed By: #### G LULS #### Point of Care testing , Magnesium [Mass/volume] in S antolin or PlasmaOrdered By: Nette Holden on 08-23-2024 Magnesium [Mass/Vol] Magnesium [Mass/vol ume] in Serum or Plasma Low 1.9-2.7 [facility] Mucus [Presence] in Urine by AutomatedOrdered By: Nette Holden on 08-23-2024 Mucus Auto Ql (U) Mucus [Presence] in Urine by Automated [facility] Nitrite Test strip Ql (U)Ord ered By: Nette Holden on 08-23-2024 Nitrite Ql (U) Nitrite [Presence] i n Urine by Test strip Negative [facility] No Panel InformationOrdered By: Nette Holden on 08-23-2024 Estimated GFR (CKD-EPI) 27.348 mL/Min [facility] Creatinine Clearance (Chem N/A [facility] Parathyrin.intact [Mass/volu me] in Serum or PlasmaOrdered By: Nette Holden on 08-23-2024 Parathyrin.intact [Mass/Vol] Parathyrin.intact [Mass/volume] in Serum or Plasma High 12 [facility] Parathyroid Hormone Intacton 08-23-2024 Parathyroid Hormone Intact 98.2 pg/mL High [facility] Comment on above: Result Comment: PERF ORMED BY: [facility] [address] [place] [address] PATHOLOGIST GL[employer] WORKER SONJA FALLON M.D. Performed By: #### P HOS, MG, [id number], URIC #### [facility] [address] Phosphate [Mass/volume] in S antolin or PlasmaOrdered By: Nette Holden on 08-23-2024 Phosphate [Mass/Vol] Phosphate [Mass/vol ume] in Serum or Plasma 2.5-4.5 [facility] Platelet mean volume Auto (B ld) [Entitic vol]Ordered By: Nette Holden on 08-23-2024 Platelet mean volume (Bld) [Entitic vol] Platelet mean volume [Entitic volume] in Blood by Automated count 6.6-10.1 [facility] Platelets Auto (Bld) [#/Vol] Ordered By: Nette Holden on 08-23-2024 Platelets (Bld) [#/Vol] Platelets [#/vol ume] in Blood by Automated count 150-450 [facility] Potassium [Moles/volume] in Serum or PlasmaOrdered By: Nette Holden on 08-23-2024 Potassium [Moles/Vol] Potassium [Moles/v olume] in Serum or Plasma High 3.5-5.1 [facility] Protein Creat Ratio Ur Rando mon 08-23-2024 Creatinine, Urine (Random) 68.00 mg/dL Normal [facility] Comment on above: Result Comment: No r eference range established Performed By: #### P HOS, MG, [id number], URIC #### [facility] [address] [place] [address] Protein (U) [Mass/Vol] 76 mg/dL High 0-9 [facility] Comment on above: Performed By: #### P HOS, MG, [id number], URIC #### [facility] [address] [place] [address] Urine Protein/Creatinine Ratio 1118 mg/g{Cre} High 0-200 [facility] Comment on above: Result Comment: PERF ORMED BY: [place] [address] PATHOLOGIST GL[employer] WORKER SONJA FALLON M.D. Performed By: #### P HOS, MG, [id number], URIC #### [address] Protein Test strip (U) [Mass /Vol]Ordered By: Nette Holden on 08-23-2024 Protein (U) [Mass/Vol] Protein [Mass/vol ume] in Urine by Test strip High Negative [facility] Protein [Mass/volume] in Uri neOrdered By: Nette Holden on 08-23-2024 Protein (U) [Mass/Vol] Protein [Mass/vol ume] in Urine High 0-9 [facility] RBC Auto (Bld) [#/Vol]Ordere d By: Nette Holden on 08-23-2024 RBC (Bld) [#/Vol] Erythrocytes [#/volu me] in Blood by Automated count 3.90-5.60 [facility] Renal Function Panelon 08-23 Albumin [Mass/Vol] 4.0 g/dL Normal 3.5-5.7 [facility] Comment on above: Performed By: #### G LULS #### Point of Care testing , Anion gap [Moles/Vol] 10.9 mmol/L Normal 6.0-15.0 [facility] Comment on above: Performed By: #### G LULS #### Point of Care testing , Calcium [Mass/Vol] 9.1 mg/dL Normal 8.6-10.3 [facility] Comment on above: Performed By: #### G LULS #### Point of Care testing , Chloride [Moles/Vol] 109 mmol/L High 98-107 [facility] Comment on above: Performed By: #### G LULS #### Point of Care testing , CO2 [Moles/Vol] 23.7 mmol/L Normal 21.0-31.0 [facility] Comment on above: Performed By: #### G LULS #### Point of Care testing , Creatinine [Mass/Vol] 2.42 mg/dL High 0.70-1.30 [facility] Comment on above: Performed By: #### G LULS #### Point of Care testing , Estimated GFR 27.348 mL/Min Normal [facility] Comment on above: Performed By: #### G LULS #### Point of Care testing , Glucose [Mass/Vol] 187 mg/dL High 70-100 [facility] Comment on above: Result Comment: [place] Glucose Reference Range is dependent on time and content of last meal. Glucose of more than 200 mg/dL in a nonstressed, ambulatory subject supports the diagnosis of Diabetes Mellitus. ADA recommended reference range Performed By: #### G LULS #### Point of Care testing , Phosphate [Mass/Vol] 4.0 mg/dL Normal 2.5-4.5 [facility] Comment on above: Performed By: #### G LULS #### Point of Care testing , Potassium [Moles/Vol] 5.6 mmol/L High 3.5-5.1 [facility] Comment on above: Performed By: #### G LULS #### Point of Care testing , Sodium [Moles/Vol] 138 mmol/L Normal 136-145 [facility] Comment on above: Performed By: #### G LULS #### Point of Care testing , Urea nitrogen [Mass/Vol] 41 mg/dL High 7-25 [facility] Comment on above: Performed By: #### G LULS #### Point of Care testing , Serum or plasma anion gap de terminationOrdered By: Nette Holden on 08-23-2024 Anion gap [Moles/Vol] Serum or plasma an ion gap determination 6.0-15.0 [facility] Sodium [Moles/volume] in Ser um or PlasmaOrdered By: Nette Holden on 08-23-2024 Sodium [Moles/Vol] Sodium [Moles/volume ] in Serum or Plasma 136-145 [facility] Specific gravity Test strip (U) [Rel density]Ordered By: Nette Holden on 08-23-2024 Specific gravity (U) [Rel density] Specific gravity of Urine by Test strip 1.001-1.03 0 [facility] Urate [Mass/volume] in Serum or PlasmaOrdered By: Nette Holden on 08-23-2024 Urate [Mass/Vol] Urate [Mass/volume] in Serum or Plasma 4.4-7.6 [facility] Urea nitrogen [Mass/volume] in Serum or PlasmaOrdered By: Nette Burnettr on 08-23-2024 Urea nitrogen [Mass/Vol] Urea nitrogen [Mass/volume] in Serum or Plasma High 7-25 [facility] Uric Acidon 08-23-2024 Urate [Mass/Vol] 5.8 mg/dL Normal 4.4-7.6 [facility] Comment on above: Performed By: #### G LULS #### Point of Care testing , Urine Cultureon 08-23-2024 Bacteria identified Cx Nom (U) >100,000 colonies/ml mixed bacterial skin contaminants including mixed gram negative bacilli - 2 Days PERFORMED BY: [address] [address] PATHOLOGIST GL[employer] WORKER SONJA FALLON M.D. Normal [facility] Comment on above: Performed By: #### G LULS #### Point of Care testing , Urine cultureOrdered By: Abd ul Adina on 08-23-2024 Bacteria identified Cx Nom (U) Urine culture [facility] Urine protein/creatinine rat ioOrdered By: Nette Adina on 08-23-2024 Protein/Creatinine (U) [Ratio] Urine protein/creatinine ratio High 0-200 [facility] Urobilinogen Test strip (U) [Mass/Vol]Ordered By: Nette Adina on 08-23-2024 Urobilinogen (U) [Mass/Vol] Urobilinogen [Mass/volume] in Urine by Test strip Normal [facility] Vitamin D 25 Hydroxy Totalon 08-23-2024 Vitamin D 25 Hydroxy Total 22.6 ng/mL Low 30-100 [facility] Comment on above: Result Comment: [place] MIN D STATUS 25(OH)VITAMIN D RANGE (ng/mL) Deficient <20 Insufficient 20 to <30 Sufficient 30 to 100 Reference: Jovan MF,Jazmyn NC, Darrion MARKS, et al. Evaluation,treatment, and prevention of vitamin D deficiency; an Endocrine Society clinical practice guideline. JCEM. 2010; 96(7):1911-30. PERFORMED BY: [facility] [address] [place] [address] PATHOLOGIST GL[employer] WORKER SONJA FALLON M.D. Performed By: #### G LUWALE #### Point of Care testing , Vitamin D+Metabolites [Mass/ volume] in Serum or PlasmaOrdered By: Nette Holden on 08-23-2024 Vitamin D+Metabolites [Mass/Vol] Vitamin D+Metabolites [Mass/volume] in Serum or Plasma Low 30-100 [facility] Comment on above: VITAMIN D STATUS [...] by Computer assisted method High None Seen [facility] pH Test strip (U)Ordered By: Nette Holden on 08-23-2024 pH (U) pH of Urine by Test strip 5.0-9.0 [facility] HbA1c HPLC (Bld) [Mass fract ion]on 07-23-2024 HbA1c (Bld) [Mass fraction] Hemoglobin A1c/Hemoglobin.total in Blood by HPLC [facility] XR SPINE CERVICAL 3 VWS OR [...] Garcia MD on 07/21/2024 1:15 PM Normal [facility] XR SPINE LUMBAR 2 OR 3 VWSon [...] Garcia MD on 07/21/2024 1:06 PM Normal [facility] Glucose,Whole Bloodon 2023 Glucose [Mass/Vol] 93 mg/dL Normal 75-110 [facility] POC Glucose Fingerstickon Glucose [Mass/Vol] 93 mg/dL 75 - 110 mg/dL [facility] [employer] [facility] Glucose,Whole Bloodon 2023 Glucose [Mass/Vol] 222 mg/dL High 75-110 [facility] Glucose [Mass/Vol] 162 mg/dL High 75-110 [facility] Glucose [Mass/Vol] 150 mg/dL High 75-110 [facility] Glucose [Mass/Vol] 102 mg/dL Normal 75-110 [facility] POC Glucose Fingerstickon Glucose [Mass/Vol] 222 mg/dL High 75 - 110 mg/dL [facility] Interpretation and review of laboratory results Abnormal [facility] [employer] HEALTH [facility] [employer] HEALTH Glucose [Mass/Vol] 162 mg/dL High 75 - 110 mg/dL [facility] Interpretation and review of laboratory results Abnormal [facility] Glucose [Mass/Vol] 150 mg/dL High 75 - 110 mg/dL [facility] [employer] [facility] Interpretation and review of laboratory results Abnormal [facility] [employer] [facility] Glucose [Mass/Vol] 102 mg/dL 75 - 110 mg/dL [facility] [employer] [facility] Glucose,Whole Bloodon 2023 Glucose [Mass/Vol] 181 mg/dL High 75-110 [facility] Glucose [Mass/Vol] 173 mg/dL High 75-110 [facility] Glucose [Mass/Vol] 138 mg/dL High 75-110 [facility] Glucose [Mass/Vol] 115 mg/dL High 75-110 [facility] POC Glucose Fingerstickon Glucose [Mass/Vol] 181 mg/dL High 75 - 110 mg/dL [facility] Interpretation and review of laboratory results Abnormal [facility] Glucose [Mass/Vol] 173 mg/dL High 75 - 110 mg/dL [facility] Interpretation and review of laboratory results Abnormal [facility] Glucose [Mass/Vol] 138 mg/dL High 75 - 110 mg/dL [facility] Interpretation and review of laboratory results Abnormal [facility] Glucose [Mass/Vol] 115 mg/dL High 75 - 110 mg/dL [facility] Interpretation and review of laboratory results Abnormal [facility] Basic Metabolic Panelon 05-07 Anion gap [Moles/Vol] 5 mmol/L Low 9 - 16 mmol/L [facility] Calcium [Mass/Vol] 8.0 mg/dL Low 8.6 - 10. 4 mg/dL [facility] Chloride [Moles/Vol] 108 mmol/L High 98 - 10 7 mmol/L [facility] CO2 [Moles/Vol] 25 mmol/L 20 - 31 mmol/L [facility] Creatinine [Mass/Vol] 2.2 mg/dL High 0.70 - 1.20 mg/dL [facility] Est, Glom Filt Rate 30 Low - [facility] Glucose [Mass/Vol] 134 mg/dL High 74 - 99 mg/dL [facility] Interpretation and review of laboratory results Abnormal [facility] Potassium [Moles/Vol] 4.2 mmol/L 3.7 - 5.3 mmol/L [facility] Sodium [Moles/Vol] 138 mmol/L 136 - 145 mmol/L [facility] Urea nitrogen [Mass/Vol] 40 mg/dL High 8 - 23 mg/dL [facility] Basic Metabolic Profon 06-02 Anion gap [Moles/Vol] 5 mmol/L Low 9-16 [facility] Comment on above: Performed By: #### C BC, BMP ####[facility] [address] [place] [address] Lab Director: Kelechi Dueñas MD Calcium [Mass/Vol] 8.0 mg/dL Low 8.6-10.4 [facility] Comment on above: Performed By: #### C BC, BMP ####[facility] [address] [place], [place] [phone] Director: Kelechi Dueñas MD Chloride [Moles/Vol] 108 mmol/L High 98-107 [facility] Comment on above: Performed By: #### C BC, BMP ####[facility] [address] [place], [place] [phone] Director: Kelechi Dueñas MD CO2 [Moles/Vol] 25 mmol/L Normal 20-31 [facility] Comment on above: Performed By: #### C BC, BMP ####[facility] [address] [place], [place] [phone] Director: Kelechi Dueñas MD Creatinine [Mass/Vol] 2.2 mg/dL High 0.70-1.20 [facility] Comment on above: Performed By: #### C BC, BMP ####[facility] [address] [place], [place] [phone] Director: Kelechi Dueñas MD GFR/1.73 sq M.predicted among non-blacks MDRD (S/P/Bld) [Vol rate/Area] 30 mL/min/{1.73_m2} Low >60 [facility] Comment on above: Result Comment: These results [...] secretion. Performed By: #### C ZAIDA, BMP ####[address] [place], [place] [phone] Director: Kelechi Dueñas MD Glucose [Mass/Vol] 134 mg/dL High 74-99 [facility] Comment on above: Performed By: #### C ZAIDA, BMP ####[address] [place], [place] [phone] Director: Kelechi Dueñas MD Potassium [Moles/Vol] 4.2 mmol/L Normal 3.7-5.3 [facility] Comment on above: Performed By: #### C ZAIDA, BMP ####[facility] [address] [place] [address] [phone] Director: Kelechi Dueñas MD Sodium [Moles/Vol] 138 mmol/L Normal 136-145 [facility] Comment on above: Performed By: #### C ZAIDA, BMP ####[facility] [address] [place], [place] [phone] Director: Kelechi Dueñas MD Urea nitrogen [Mass/Vol] 40 mg/dL High 8-23 [facility] Comment on above: Performed By: #### C ZAIDA, BMP ####[facility] [address] [place], [place] [phone] Director: Kelechi Dueñas MD [facility] Erythrocyte distribution width (RBC) [Ratio] 13.2 % 11.8 - 14.4 % [facility] Hematocrit (Bld) [Volume fraction] 24.6 % Low 40.7 - 50.3 % [facility] Hemoglobin (Bld) [Mass/Vol] 7.8 g/dL Low 13.0 - 17.0 g/dL [facility] Interpretation and review of laboratory results Abnormal [facility] MCH (RBC) [Entitic mass] 27.8 pg 25.2 - 33.5 pg [facility] MCHC (RBC) [Mass/Vol] 31.7 g/dL 28.4 - 34.8 g/dL [facility] MCV (RBC) [Entitic vol] 87.5 fL 82.6 - 102.9 fL [facility] Nucleated RBC/100 WBC (Bld) [Ratio] 0.0 % 0.0 per 100 WBC [facility] Platelet mean volume (Bld) [Entitic vol] 10.4 fL 8.1 - 13.5 fL [facility] Platelets (Bld) [#/Vol] 192 10*3/uL [facility] RBC (Bld) [#/Vol] 2.81 10*6/uL Low 4.21 - 5.77 m/uL [facility] WBC other (Bld) [#/Vol] 8.3 B [facility] Erythrocyte distribution width (RBC) [Ratio] 13.2 % Normal 11.8-14.4 [facility] Comment on above: Performed By: #### C BC, BMP ####[facility] [address] [place] [address] Lab Director: Kelechi Dueñas MD Hematocrit (Bld) [Volume fraction] 24.6 % Low 40.7-50.3 [facility] Comment on above: Performed By: #### C BC, BMP ####[facility] [address] [place], [place] [phone] Lab Director: Kelechi Dueñas MD Hemoglobin (Bld) [Mass/Vol] 7.8 g/dL Low 13.0-17.0 [facility] Comment on above: Performed By: #### C BC, BMP ####[employer] [address] [place], [place] [phone] Lab Director: Kelechi Dueñas MD MCH (RBC) [Entitic mass] 27.8 pg Normal 25.2-33.5 [facility] Comment on above: Performed By: #### C BC, BMP ####[address] [place], [place] [phone] Director: Kelechi Dueñas MD MCHC (RBC) [Mass/Vol] 31.7 g/dL Normal 28.4-34.8 [facility] Comment on above: Performed By: #### C BC, BMP ####[facility] [address] [place] [address] [phone] Director: Kelechi Dueñas MD MCV (RBC) [Entitic vol] 87.5 fL Normal 82.6-102.9 [facility] Comment on above: Performed By: #### C BC, BMP ####[address] [phone] Director: Kelechi Dueñas MD NRBC Automated 0.0 per 100 WBC Normal 0.0 [facility] Comment on above: Performed By: #### C BC, BMP ####[address] [phone] Director: Kelechi Dueñas MD Platelet mean volume (Bld) [Entitic vol] 10.4 fL Normal 8.1-13.5 [facility] Comment on above: Performed By: #### C BC, BMP ####[facility] [address] [place] [address] [phone] Director: Kelechi Dueñas MD Platelets (Bld) [#/Vol] 192 10*3/uL Normal 138-453 [facility] Comment on above: Performed By: #### C BC, BMP ####[facility] [address] [place] [address] [phone] Director: Kelechi Dueñas MD RBC (Bld) [#/Vol] 2.81 10*6/uL Low 4.21-5.77 [facility] Comment on above: Performed By: #### C BC, BMP ####[facility] [address] [place] [address] Lab Director: eKlechi Dueñas MD WBC (Bld) [#/Vol] 8.3 10*3/uL Normal 3.5-11.3 [facility] [facility] Comment on above: Performed By: #### C BC, BMP ####[facility] [address] [place] [address] lab Director: Kelechi Dueñas MD Glucose,Whole Bloodon 2023 Glucose [Mass/Vol] 256 mg/dL High 75-110 [facility] Glucose [Mass/Vol] 216 mg/dL High 75-110 [facility] Glucose [Mass/Vol] 146 mg/dL High 75-110 [facility] Glucose [Mass/Vol] 116 mg/dL High 75-110 [facility] POC Glucose Fingerstickon Glucose [Mass/Vol] 256 mg/dL High 75 - 110 mg/dL [facility] Interpretation and review of laboratory results Abnormal [facility] Glucose [Mass/Vol] 216 mg/dL High 75 - 110 mg/dL [facility] Interpretation and review of laboratory results Abnormal [facility] Glucose [Mass/Vol] 146 mg/dL High 75 - 110 mg/dL [facility] Interpretation and review of laboratory results Abnormal [facility] Glucose [Mass/Vol] 116 mg/dL High 75 - 110 mg/dL [facility] Interpretation and review of laboratory results Abnormal [facility] Basic Metabolic Panelon 05-07 Anion gap [Moles/Vol] 8 mmol/L Low 9 - 16 mmol/L [facility] Calcium [Mass/Vol] 8.1 mg/dL Low 8.6 - 10. 4 mg/dL [facility] Chloride [Moles/Vol] 107 mmol/L 98 - 10 7 mmol/L [facility] CO2 [Moles/Vol] 22 mmol/L 20 - 31 mmol/L [facility] Creatinine [Mass/Vol] 2.2 mg/dL High 0.70 - 1.20 mg/dL [facility] Est, Glom Filt Rate 30 Low - [facility] Glucose [Mass/Vol] 150 mg/dL High 74 - 99 mg/dL [facility] Interpretation and review of laboratory results Abnormal [facility] Potassium [Moles/Vol] 4.1 mmol/L 3.7 - 5.3 mmol/L [facility] Sodium [Moles/Vol] 137 mmol/L 136 - 145 mmol/L [facility] Urea nitrogen [Mass/Vol] 38 mg/dL High 8 - 23 mg/dL [facility] Basic Metabolic Profon 06-01 Anion gap [Moles/Vol] 8 mmol/L Low 9-16 [facility] Comment on above: Performed By: #### B MP, CBC ####[facility] [address]uyool4572 [place] [address] Lab Director: Kelechi Dueñas MD Calcium [Mass/Vol] 8.1 mg/dL Low 8.6-10.4 [facility] Comment on above: Performed By: #### B MP, CBC ####[facility] [address] [place] [address] Lab Director: Kelechi Dueñas MD Chloride [Moles/Vol] 107 mmol/L Normal 98-107 [facility] Comment on above: Performed By: #### B MP, CBC ####[facility] [address] [place] [address] Lab Director: Kelechi Dueñas MD CO2 [Moles/Vol] 22 mmol/L Normal 20-31 [facility] Comment on above: Performed By: #### B MP, CBC ####[facility] [address] [place] [address] Lab Director: Kelechi Dueñas MD Creatinine [Mass/Vol] 2.2 mg/dL High 0.70-1.20 [facility] Comment on above: Performed By: #### B RUTHIE, CBC ####[facility] [address] [place] [address] [phone] Director: Kelechi Dueñas MD GFR/1.73 sq M.predicted among non-blacks MDRD (S/P/Bld) [Vol rate/Area] 30 mL/min/{1.73_m2} Low >60 [facility] Comment on above: Result Comment: These results [...] secretion. Performed By: #### B RUTHIE, CBC ####[facility] [address] [place] [address] [phone] Director: Kelechi Dueñas MD Glucose [Mass/Vol] 150 mg/dL High 74-99 [facility] Comment on above: Performed By: #### B MP, CBC ####[facility] [address] [place] [address] [phone] Director: Kelechi Dueñas MD Potassium [Moles/Vol] 4.1 mmol/L Normal 3.7-5.3 [facility] Comment on above: Performed By: #### B MP, CBC ####[facility] [address]tfkcdrnlczi3453 [place], [place] [phone] Director: Kelechi Dueñas MD Sodium [Moles/Vol] 137 mmol/L Normal 136-145 [facility] Comment on above: Performed By: #### B RUTHIE, CBC ####[facility] [address] [place], [place] [phone] Director: Kelechi Dueñas MD Urea nitrogen [Mass/Vol] 38 mg/dL High 8- [facility] Comment on above: Performed By: #### B RUTHIE, CBC ####[employer] [address]fr[address] [place], [place] [phone] lab Director: Kelechi Dueñas MD CBCon 06-01-2024 Erythrocyte distribution width (RBC) [Ratio] 13.0 % 11.8 - 14.4 % [facility] Hematocrit (Bld) [Volume fraction] 26.2 % Low 40.7 - 50.3 % [facility] Hemoglobin (Bld) [Mass/Vol] 8.2 g/dL Low 13.0 - 17.0 g/dL [facility] Interpretation and review of laboratory results Abnormal [facility] MCH (RBC) [Entitic mass] 27.7 pg 25.2 - 33.5 pg [facility] MCHC (RBC) [Mass/Vol] 31.3 g/dL 28.4 - 34.8 g/dL [facility] MCV (RBC) [Entitic vol] 88.5 fL 82.6 - 102.9 fL [facility] Nucleated RBC/100 WBC (Bld) [Ratio] 0.0 % 0.0 per 100 WBC [facility] Platelet mean volume (Bld) [Entitic vol] 10.9 fL 8.1 - 13.5 fL [facility] Platelets (Bld) [#/Vol] 222 10*3/uL [facility] RBC (Bld) [#/Vol] 2.96 10*6/uL Low 4.21 - 5.77 m/uL [facility] WBC other (Bld) [#/Vol] 8.9 B ON [facility] Erythrocyte distribution width (RBC) [Ratio] 13.0 % Normal 11.8-14.4 [facility] Comment on above: Performed By: #### B MP, CBC ####[employer] [address] [place], [place] [phone] lab Director: Kelechi Dueñas MD Hematocrit (Bld) [Volume fraction] 26.2 % Low 40.7-50.3 [facility] Comment on above: Performed By: #### B MP, CBC ####[facility] [address] [place] [address] Lab Director: Kelechi Dueñas MD Hemoglobin (Bld) [Mass/Vol] 8.2 g/dL Low 13.0-17.0 [facility] Comment on above: Performed By: #### B MP, CBC ####[facility] [address] [place] [address] Lab Director: Kelechi Dueñas MD MCH (RBC) [Entitic mass] 27.7 pg Normal 25.2-33.5 [facility] Comment on above: Performed By: #### B MP, CBC ####[address] [address] lab Director: Kelechi Dueñas MD MCHC (RBC) [Mass/Vol] 31.3 g/dL Normal 28.4-34.8 [facility] Comment on above: Performed By: #### B MP, CBC ####[address] [address] Lab Director: Kelechi Dueñas MD MCV (RBC) [Entitic vol] 88.5 fL Normal 82.6-102.9 [facility] Comment on above: Performed By: #### B MP, CBC ####[facility] [address] [place] [address] lab Director: Kelechi Dueñas MD NRBC Automated 0.0 per 100 WBC Normal 0.0 [facility] Comment on above: Performed By: #### B MP, CBC ####[facility] [address] [place] [address] lab Director: Kelechi Dueñas MD Platelet mean volume (Bld) [Entitic vol] 10.9 fL Normal 8.1-13.5 [facility] Comment on above: Performed By: #### B MP, CBC ####[facility] [address] [place] [address] Lab Director: Kelechi Dueñas MD Platelets (Bld) [#/Vol] 222 10*3/uL Normal 138-453 [facility] Comment on above: Performed By: #### B MP, CBC ####[facility] [address] [place], [place] [phone] Director: Kelechi Dueñas MD RBC (Bld) [#/Vol] 2.96 10*6/uL Low 4.21-5.77 [facility] Comment on above: Performed By: #### B MP, CBC ####[facility] [address] [place], [place] [phone] Director: Kelechi Dueñas MD WBC (Bld) [#/Vol] 8.9 10*3/uL Normal 3.5-11.3 [facility] Comment on above: Performed By: #### B MP, CBC ####[facility] [address] [place], [place] [phone] Director: Kelechi Dueñas MD Glucose,Whole Bloodon 2023 Glucose [Mass/Vol] 189 mg/dL High 75-110 [facility] Glucose [Mass/Vol] 207 mg/dL High 75-110 [facility] Glucose [Mass/Vol] 154 mg/dL High 75-110 [facility] Glucose [Mass/Vol] 130 mg/dL High 75-110 [facility] POC Glucose Fingerstickon Glucose [Mass/Vol] 189 mg/dL High 75 - 110 mg/dL [facility] [employer] Interpretation and review of laboratory results Abnormal [facility]US[facility] [employer] Glucose [Mass/Vol] 207 mg/dL High 75 - 110 mg/dL [facility] [employer] Interpretation and review of laboratory results Abnormal [facility] [employer] [facility] Glucose [Mass/Vol] 154 mg/dL High 75 - 110 mg/dL [facility] Interpretation and review of laboratory results Abnormal [facility] Glucose [Mass/Vol] 130 mg/dL High 75 - 110 mg/dL [facility] Interpretation and review of laboratory results Abnormal [facility] Basic Metabolic Panelon - Anion gap [Moles/Vol] 8 mmol/L Low 9 - 16 mmol/L [facility] Calcium [Mass/Vol] 8.2 mg/dL Low 8.6 - 10. 4 mg/dL [facility] Chloride [Moles/Vol] 109 mmol/L High 98 - 10 7 mmol/L [facility] CO2 [Moles/Vol] 21 mmol/L 20 - 31 mmol/L [facility] Creatinine [Mass/Vol] 2.2 mg/dL High 0.70 - 1.20 mg/dL [facility] Est, Glom Filt Rate 30 Low - [facility] Glucose [Mass/Vol] 169 mg/dL High 74 - 99 mg/dL [facility] Interpretation and review of laboratory results Abnormal [facility] Potassium [Moles/Vol] 4.0 mmol/L 3.7 - 5.3 mmol/L [facility] Sodium [Moles/Vol] 138 mmol/L 136 - 145 mmol/L [facility] Urea nitrogen [Mass/Vol] 49 mg/dL High 8 - 23 mg/dL [facility] Basic Metabolic Profon 05-31 Anion gap [Moles/Vol] 8 mmol/L Low 9-16 [facility] Comment on above: Performed By: #### B RUTHIE CBC ####[facility] [address] [place] [address] lab Director: Kelechi Dueñas MD Calcium [Mass/Vol] 8.2 mg/dL Low 8.6-10.4 [facility] Comment on above: Performed By: #### B MP, CBC ####[facility] [address] [place], [place] [phone] Director: Kelechi Dueñas MD Chloride [Moles/Vol] 109 mmol/L High 98-107 [facility] Comment on above: Performed By: #### B MP, CBC ####[facility] Iugrchbdfkvs[address]6 [place], [place] [phone] Director: Kelechi Dueñas MD CO2 [Moles/Vol] 21 mmol/L Normal 20-31 [facility] Comment on above: Performed By: #### B MP, CBC ####[facility] [address] [place] [address] [phone] Director: Kelechi Dueñas MD Creatinine [Mass/Vol] 2.2 mg/dL High 0.70-1.20 [facility] Comment on above: Performed By: #### B MP, CBC ####[address] [phone] Director: Kelechi Dueñas MD GFR/1.73 sq M.predicted among non-blacks MDRD (S/P/Bld) [Vol rate/Area] 30 mL/min/{1.73_m2} Low >60 [facility] Comment on above: Result Comment: These results [...] renal tubular secretion. Performed By: #### B MP, CBC ####[facility] [address] [place] [address] [phone] Director: Kelechi Dueñas MD Glucose [Mass/Vol] 169 mg/dL High 74-99 [facility] Comment on above: Performed By: #### B MP, CBC ####[facility] [address] [place] [address] [phone] Lab Director: Kelechi Dueñas MD Potassium [Moles/Vol] 4.0 mmol/L Normal 3.7-5.3 [facility] Comment on above: Performed By: #### B MP, CBC ####[facility] [address] [place] [address] Lab Director: Kelechi Dueñas MD Sodium [Moles/Vol] 138 mmol/L Normal 136-145 [facility] Comment on above: Performed By: #### B MP, CBC ####[facility] [address] [place] [address] lab Director: Kelechi Dueñas MD Urea nitrogen [Mass/Vol] 49 mg/dL High 8-23 [facility] Comment on above: Performed By: #### B MP, CBC ####[facility] [address]ufbiis[address] [place] [address] Lab Director: Kelechi Dueñas MD [facility] 05-31-2024 Erythrocyte distribution width (RBC) [Ratio] 13.0 % 11.8 - 14.4 % [facility] Hematocrit (Bld) [Volume fraction] 28.5 % Low 40.7 - 50.3 % [facility] Hemoglobin (Bld) [Mass/Vol] 8.9 g/dL Low 13.0 - 17.0 g/dL [facility] Interpretation and review of laboratory results Abnormal [facility] MCH (RBC) [Entitic mass] 28.1 pg 25.2 - 33.5 pg [facility] MCHC (RBC) [Mass/Vol] 31.2 g/dL 28.4 - 34.8 g/dL [facility] MCV (RBC) [Entitic vol] 89.9 fL 82.6 - 102.9 fL [facility] Nucleated RBC/100 WBC (Bld) [Ratio] 0.0 % 0.0 per 100 WBC [facility] Platelet mean volume (Bld) [Entitic vol] 10.4 fL 8.1 - 13.5 fL [facility] Platelets (Bld) [#/Vol] 196 10*3/uL [facility] RBC (Bld) [#/Vol] 3.17 10*6/uL Low 4.21 - 5.77 m/uL [facility] WBC other (Bld) [#/Vol] 8.4 B ON [facility] Erythrocyte distribution width (RBC) [Ratio] 13.0 % Normal 11.8-14.4 [facility] Comment on above: Performed By: #### B MP, CBC ####[facility] [address] [place] [address] Lab Director: Kelechi Dueñas MD Hematocrit (Bld) [Volume fraction] 28.5 % Low 40.7-50.3 [facility] Comment on above: Performed By: #### B MP, CBC ####[facility] [address] [place] [address] Lab Director: Kelechi Dueñas MD Hemoglobin (Bld) [Mass/Vol] 8.9 g/dL Low 13.0-17.0 [facility] Comment on above: Performed By: #### B MP, CBC ####[facility] [address] [place] [address] Lab Director: Kelechi Dueñas MD MCH (RBC) [Entitic mass] 28.1 pg Normal 25.2-33.5 [facility] Comment on above: Performed By: #### B MP, CBC ####[facility] [address]yrjj[address] [place] [address] Lab Director: Kelechi Dueñas MD MCHC (RBC) [Mass/Vol] 31.2 g/dL Normal 28.4-34.8 [facility] Comment on above: Performed By: #### B MP, CBC ####[facility] [address]msxsszer[address] [place] [address] Lab Director: Kelechi Dueñas MD MCV (RBC) [Entitic vol] 89.9 fL Normal 82.6-102.9 [facility] Comment on above: Performed By: #### B MP, CBC ####[facility] [address] [place], [place] [phone] Director: Kelechi Dueñas MD NRBC Automated 0.0 per 100 WBC Normal 0.0 [facility] Comment on above: Performed By: #### B MP, CBC ####[facility] [address] [place], [place] [phone] Director: Kelechi Dueñas MD Platelet mean volume (Bld) [Entitic vol] 10.4 fL Normal 8.1-13.5 [facility] Comment on above: Performed By: #### B MP, CBC ####[address] [phone] Director: Kelechi Dueñas MD Platelets (Bld) [#/Vol] 196 10*3/uL Normal 138-453 [facility] Comment on above: Performed By: #### B MP, CBC ####[facility] [address] [place], [place] [phone] Director: Kelechi Dueñas MD RBC (Bld) [#/Vol] 3.17 10*6/uL Low 4.21-5.77 [facility] Comment on above: Performed By: #### B MP, CBC ####[facility] [address] [place], [place] [address])[phone] Director: Kelechi Dueñas MD WBC (Bld) [#/Vol] 8.4 10*3/uL Normal 3.5-11.3 [facility] Comment on above: Performed By: #### B MP, CBC ####[facility] [address] [place], [place] [phone] Director: Kelechi Dueñas MD Glucose,Whole Bloodon 2023 Glucose [Mass/Vol] 209 mg/dL High 75-110 [facility] Glucose [Mass/Vol] 137 mg/dL High 75-110 [facility] Glucose [Mass/Vol] 85 mg/dL Normal 75-110 [facility] Glucose [Mass/Vol] 110 mg/dL Normal 75-110 [facility] POC Glucose Fingerstickon Glucose [Mass/Vol] 209 mg/dL High 75 - 110 mg/dL [facility] Interpretation and review of laboratory results Abnormal [facility] Glucose [Mass/Vol] 137 mg/dL High 75 - 110 mg/dL [facility] Interpretation and review of laboratory results Abnormal [facility] Glucose [Mass/Vol] 85 mg/dL 75 - 110 mg/dL [facility] Glucose [Mass/Vol] 110 mg/dL 75 - 110 mg/dL [facility] Basic Metabolic Panelon 05-07 Anion gap [Moles/Vol] 8 mmol/L Low 9 - 16 mmol/L [facility] Calcium [Mass/Vol] 7.9 mg/dL Low 8.6 - 10. 4 mg/dL [facility] Chloride [Moles/Vol] 107 mmol/L 98 - 10 7 mmol/L [facility] CO2 [Moles/Vol] 20 mmol/L 20 - 31 mmol/L [facility] Creatinine [Mass/Vol] 2.2 mg/dL High 0.70 - 1.20 mg/dL [facility] Est, Glom Filt Rate 30 Low - [facility] Glucose [Mass/Vol] 128 mg/dL High 74 - 99 mg/dL [facility] Interpretation and review of laboratory results Abnormal [facility] Potassium [Moles/Vol] 3.9 mmol/L 3.7 - 5.3 mmol/L [facility] Sodium [Moles/Vol] 135 mmol/L Low 136 - 145 mmol/L [facility] Urea nitrogen [Mass/Vol] 53 mg/dL High 8 - 23 mg/dL [facility] Basic Metabolic Profon 05-30 Anion gap [Moles/Vol] 8 mmol/L Low 9-16 [facility] Comment on above: Performed By: #### C BC, BMP ####[facility] [address] [place], [place] [phone] Director: Kelechi Dueñas MD Calcium [Mass/Vol] 7.9 mg/dL Low 8.6-10.4 [facility] Comment on above: Performed By: #### C BC, BMP ####[facility] [address] [place], [place] [phone] Director: Kelechi Dueñas MD Chloride [Moles/Vol] 107 mmol/L Normal 98-107 [facility] Comment on above: Performed By: #### C BC, BMP ####[place] [place], [place] [phone] Director: Kelechi Dueñas MD CO2 [Moles/Vol] 20 mmol/L Normal 20-31 [facility] Comment on above: Performed By: #### C BC, BMP ####[facility] [address]ql[address] [place], [place] [phone] Director: Kelechi Dueñas MD Creatinine [Mass/Vol] 2.2 mg/dL High 0.70-1.20 [facility] Comment on above: Performed By: #### C BC, BMP ####[facility] [address] [place] [address] [phone] Director: Kelechi Dueñas MD GFR/1.73 sq M.predicted among non-blacks MDRD (S/P/Bld) [Vol rate/Area] 30 mL/min/{1.73_m2} Low >60 [facility] Comment on above: Result Comment: These results [...] secretion. Performed By: #### C ZAIDA, BMP ####[address] [place], [place] [phone] Director: Kelechi Dueñas MD Glucose [Mass/Vol] 128 mg/dL High 74-99 [facility] Comment on above: Performed By: #### C ZAIDA, BMP ####[address] [place], [place] [phone] Director: Kelechi Dueñas MD Potassium [Moles/Vol] 3.9 mmol/L Normal 3.7-5.3 [facility] Comment on above: Performed By: #### C ZAIDA, BMP ####[address] [phone] Director: Kelechi Dueñas MD Sodium [Moles/Vol] 135 mmol/L Low 136-145 [facility] Comment on above: Performed By: #### C ZAIDA, BMP ####[address] [phone] Director: Kelechi Dueñas MD Urea nitrogen [Mass/Vol] 53 mg/dL High 8-23 [facility] Comment on above: Performed By: #### C ZAIDA, BMP ####[address] [phone] Director: Kelechi Dueñas MD CBCon 05-30-2024 Erythrocyte distribution width (RBC) [Ratio] 13.1 % 11.8 - 14.4 % [facility] [employer] Hematocrit (Bld) [Volume fraction] 25.2 % Low 40.7 - 50.3 % [facility] Hemoglobin (Bld) [Mass/Vol] 7.8 g/dL Low 13.0 - 17.0 g/dL [facility] Interpretation and review of laboratory results Abnormal [facility] [employer] MCH (RBC) [Entitic mass] 27.7 pg 25.2 - 33.5 pg [facility] MCHC (RBC) [Mass/Vol] 31.0 g/dL 28.4 - 34.8 g/dL [facility] MCV (RBC) [Entitic vol] 89.4 fL 82.6 - 102.9 fL [facility] Nucleated RBC/100 WBC (Bld) [Ratio] 0.0 % 0.0 per 100 WBC [facility] Platelet mean volume (Bld) [Entitic vol] 10.6 fL 8.1 - 13.5 fL [facility] Platelets (Bld) [#/Vol] 176 10*3/uL [facility] RBC (Bld) [#/Vol] 2.82 10*6/uL Low 4.21 - 5.77 m/uL [facility] WBC other (Bld) [#/Vol] 9.7 B [facility] Erythrocyte distribution width (RBC) [Ratio] 13.1 % Normal 11.8-14.4 [facility] Comment on above: Performed By: #### C BC, BMP ####[facility] [address] [place] [address] Lab Director: Kelechi Dueñas MD Hematocrit (Bld) [Volume fraction] 25.2 % Low 40.7-50.3 [facility] Comment on above: Performed By: #### C BC, BMP ####[facility] [address] [place] [address] Lab Director: Kelechi Dueñas MD Hemoglobin (Bld) [Mass/Vol] 7.8 g/dL Low 13.0-17.0 [facility] Comment on above: Performed By: #### C BC, BMP ####[facility] [address]kvuttf[address]4 [place] [address] lab Director: Kelechi Dueñas MD MCH (RBC) [Entitic mass] 27.7 pg Normal 25.2-33.5 [facility] Comment on above: Performed By: #### C BC, BMP ####[employer] [address] [place] [address] Lab Director: Kelechi Dueñas MD MCHC (RBC) [Mass/Vol] 31.0 g/dL Normal 28.4-34.8 [facility] Comment on above: Performed By: #### C BC, BMP ####[facility] [address] [place] [address] [phone] Director: Kelechi Dueñas MD MCV (RBC) [Entitic vol] 89.4 fL Normal 82.6-102.9 [facility] Comment on above: Performed By: #### C BC, BMP ####[address] [phone] Director: Kelechi Dueñas MD NRBC Automated 0.0 per 100 WBC Normal 0.0 [facility] Comment on above: Performed By: #### C BC, BMP ####[address] [phone] Director: Kelechi Dueñas MD Platelet mean volume (Bld) [Entitic vol] 10.6 fL Normal 8.1-13.5 [facility] Comment on above: Performed By: #### C BC, BMP ####[address] [phone] Director: Kelechi Dueñas MD Platelets (Bld) [#/Vol] 176 10*3/uL Normal 138-453 [facility] Comment on above: Performed By: #### C BC, BMP ####[address] [phone] Director: Kelechi Dueñas MD RBC (Bld) [#/Vol] 2.82 10*6/uL Low 4.21-5.77 [facility] Comment on above: Performed By: #### C BC, BMP ####[address] [place] [address] Lab Director: Kelechi Dueñas MD WBC (Bld) [#/Vol] 9.7 10*3/uL Normal 3.5-11.3 [facility] Comment on above: Performed By: #### C BC, BMP ####[facility] [id number] [place] [address] lab Director: Kelechi Dueñas MD Glucose,Whole Bloodon 2023 Glucose [Mass/Vol] 157 mg/dL High 75-110 [facility] Glucose [Mass/Vol] 143 mg/dL High 75-110 [facility] Glucose [Mass/Vol] 88 mg/dL Normal 75-110 [facility] [facility] Glucose [Mass/Vol] 88 mg/dL Normal 75-110 [facility] Glucose [Mass/Vol] 83 mg/dL Normal 75-110 [facility] POC Glucose Fingerstickon Glucose [Mass/Vol] 157 mg/dL High 75 - 110 mg/dL [facility] Interpretation and review of laboratory results Abnormal [facility] Glucose [Mass/Vol] 143 mg/dL High 75 - 110 mg/dL [facility] Interpretation and review of laboratory results Abnormal [facility] Glucose [Mass/Vol] 88 mg/dL 75 - 110 mg/dL [facility] Glucose [Mass/Vol] 88 mg/dL 75 - 110 mg/dL [facility] Glucose [Mass/Vol] 83 mg/dL 75 - 110 mg/dL [facility] [employer] Basic Metabolic Panelon 05-07 Anion gap [Moles/Vol] 7 mmol/L Low 9 - 16 mmol/L [facility] [employer] Calcium [Mass/Vol] 8.0 mg/dL Low 8.6 - 10. 4 mg/dL [facility] [employer] Chloride [Moles/Vol] 111 mmol/L High 98 - 10 7 mmol/L [facility] CO2 [Moles/Vol] 21 mmol/L 20 - 31 mmol/L [facility] Creatinine [Mass/Vol] 2.0 mg/dL High 0.70 - 1.20 mg/dL [facility] Est, Glom Filt Rate 34 Low - [facility] Glucose [Mass/Vol] 72 mg/dL Low 74 - 99 mg/dL [facility] Interpretation and review of laboratory results Abnormal [facility] Potassium [Moles/Vol] 3.7 mmol/L 3.7 - 5.3 mmol/L [facility] Sodium [Moles/Vol] 139 mmol/L 136 - 145 mmol/L [facility] Urea nitrogen [Mass/Vol] 52 mg/dL High 8 - 23 mg/dL [facility] Basic Metabolic Profon 05-29 Anion gap [Moles/Vol] 7 mmol/L Low 9-16 [facility] Comment on above: Performed By: #### C BC, BMP ####[facility] [address] [place] [address] Lab Director: Kelechi Dueñas MD Calcium [Mass/Vol] 8.0 mg/dL Low 8.6-10.4 [facility] Comment on above: Performed By: #### C BC, BMP ####[facility] [address]ymxhmuio[address] [place] [address] Lab Director: Kelechi Dueñas MD Chloride [Moles/Vol] 111 mmol/L High 98-107 [facility] Comment on above: Performed By: #### C BC, BMP ####[facility] Xtx[address]was[address] [place], [place] [phone] Lab Director: Kelehci Dueñas MD CO2 [Moles/Vol] 21 mmol/L Normal 20-31 [facility] Comment on above: Performed By: #### C BC, BMP ####[facility] N[address]zak[address] [place], [place] [phone] Lab Director: Kelechi Dueñas MD Creatinine [Mass/Vol] 2.0 mg/dL High 0.70-1.20 [facility] Comment on above: Performed By: #### C ZAIDA, BMP ####[address] [address] Lab Director: Kelechi Dueñas MD GFR/1.73 sq M.predicted among non-blacks MDRD (S/P/Bld) [Vol rate/Area] 34 mL/min/{1.73_m2} Low >60 [facility] Comment on above: Result Comment: These results [...] secretion. Performed By: #### C ZAIDA, BMP ####[facility] [address] [place] [address] [phone] Director: Kelechi Dueñas MD Glucose [Mass/Vol] 72 mg/dL Low 74-99 [facility] Comment on above: Performed By: #### C ZAIDA, BMP ####[address] [phone] Director: Kelechi Dueñas MD Potassium [Moles/Vol] 3.7 mmol/L Normal 3.7-5.3 [facility] Comment on above: Performed By: #### C ZAIDA, BMP ####[facility] [address]lnkeervdt[address]38 [place] [address] Lab Director: Kelechi Dueñas MD Sodium [Moles/Vol] 139 mmol/L Normal 136-145 [facility] Comment on above: Performed By: #### C ZAIDA, BMP ####[facility] [address]649 [place] [address] Lab Director: Kelechi Dueñas MD Urea nitrogen [Mass/Vol] 52 mg/dL High 8- [facility] Comment on above: Performed By: #### C JOSH CERDA ####[employer] T[address]suv[address] [place], [place] [phone] lab Director: Kelechi Dueñas MD CBCon 05-29-2024 Erythrocyte distribution width (RBC) [Ratio] 12.9 % 11.8 - 14.4 % [facility] Hematocrit (Bld) [Volume fraction] 27.6 % Low 40.7 - 50.3 % [facility] Hemoglobin (Bld) [Mass/Vol] 8.8 g/dL Low 13.0 - 17.0 g/dL [facility] Interpretation and review of laboratory results Abnormal [facility] MCH (RBC) [Entitic mass] 27.9 pg 25.2 - 33.5 pg [facility] MCHC (RBC) [Mass/Vol] 31.9 g/dL 28.4 - 34.8 g/dL [facility] MCV (RBC) [Entitic vol] 87.6 fL 82.6 - 102.9 fL [facility] Nucleated RBC/100 WBC (Bld) [Ratio] 0.0 % 0.0 per 100 WBC [facility] Platelet mean volume (Bld) [Entitic vol] 10.8 fL 8.1 - 13.5 fL [facility] Platelets (Bld) [#/Vol] 197 10*3/uL [facility] RBC (Bld) [#/Vol] 3.15 10*6/uL Low 4.21 - 5.77 m/uL [facility] WBC other (Bld) [#/Vol] 10.6 B ON [facility] Erythrocyte distribution width (RBC) [Ratio] 12.9 % Normal 11.8-14.4 [facility] Comment on above: Performed By: #### C JOSH CERDA ####[employer] Erfsmnpigmmj2868 [place], [place] [phone] lab Director: Kelechi Dueñas MD Hematocrit (Bld) [Volume fraction] 27.6 % Low 40.7-50.3 [facility] Comment on above: Performed By: #### C BC, BMP ####[facility] [address] [place] [address] lab Director: Kelechi Dueñas MD Hemoglobin (Bld) [Mass/Vol] 8.8 g/dL Low 13.0-17.0 [facility] Comment on above: Performed By: #### C BC, BMP ####[facility] [address]mp[address]tx[address]40 [place] [address] lab Director: Kelechi Dueñas MD MCH (RBC) [Entitic mass] 27.9 pg Normal 25.2-33.5 [facility] Comment on above: Performed By: #### C BC, BMP ####[address] [address] lab Director: Kelechi Dueñas MD MCHC (RBC) [Mass/Vol] 31.9 g/dL Normal 28.4-34.8 [facility] Comment on above: Performed By: #### C BC, BMP ####[address] [address] lab Director: Kelechi Dueñas MD MCV (RBC) [Entitic vol] 87.6 fL Normal 82.6-102.9 [facility] Comment on above: Performed By: #### C BC, BMP ####[facility] [address]stdxmb[address]24 [place] [address] lab Director: Kelechi Dueñas MD NRBC Automated 0.0 per 100 WBC Normal 0.0 [facility] Comment on above: Performed By: #### C BC, BMP ####[facility] Xspgeedzzdfo9485 [place] [address] lab Director: Kelechi Dueñas MD Platelet mean volume (Bld) [Entitic vol] 10.8 fL Normal 8.1-13.5 [facility] Comment on above: Performed By: #### C BC, BMP ####[facility] [address]uj[address]bl[address] [place], [place] [phone] Director: Kelechi Dueñas MD Platelets (Bld) [#/Vol] 197 10*3/uL Normal 138-453 [facility] Comment on above: Performed By: #### C BC, BMP ####[facility] Ytpoelyqiyjb08[address] [place], [place] [phone] Director: Kelechi Dueñas MD RBC (Bld) [#/Vol] 3.15 10*6/uL Low 4.21-5.77 [facility] Comment on above: Performed By: #### C BC, BMP ####[facility] [address]toxquanmw5[address] [place], [place] [phone] Director: Kelechi Dueñas MD WBC (Bld) [#/Vol] 10.6 10*3/uL Normal 3.5-11.3 [facility] Comment on above: Performed By: #### C BC, BMP ####[facility] Fbwjuiebrwyr28[address] [place], [place] [phone] Director: Kelechi Dueñas MD Cult, Bloodon 05-29-2024 Cult, Blood Specimen Description .BLOOD Special Requests R FOREARM 10ML Culture NO GROWTH 5 DAYS Report Status FINAL 05/29/2024 Normal [facility] Comment on above: Performed By: #### B CUL2 ####[facility] Gmfmsksmhkqe0738 [place], [place] [phone] Director: Kelechi Dueñas MD Culture, Blood 2on Microorganism identified Cx Nom (Unsp spec) NO GROWTH 5 DAYS [facility] Service comment (Unsp spec) [Interp] R FOREARM 10ML [facility] Specimen Description .BLOOD [facility] Glucose,Whole Bloodon 2023 Glucose [Mass/Vol] 121 mg/dL High 75-110 [facility] Glucose [Mass/Vol] 96 mg/dL Normal 75-110 [facility] Glucose [Mass/Vol] 95 mg/dL Normal 75-110 [facility] Glucose [Mass/Vol] 90 mg/dL Normal 75-110 [facility] Glucose [Mass/Vol] 63 mg/dL Low 75-110 [facility] POC Glucose Fingerstickon Glucose [Mass/Vol] 121 mg/dL High 75 - 110 mg/dL [facility] Interpretation and review of laboratory results Abnormal [facility] Glucose [Mass/Vol] 96 mg/dL 75 - 110 mg/dL [facility] Glucose [Mass/Vol] 95 mg/dL 75 - 110 mg/dL [facility] Glucose [Mass/Vol] 90 mg/dL 75 - 110 mg/dL [facility] Glucose [Mass/Vol] 63 mg/dL Low 75 - 110 mg/dL [facility] Interpretation and review of laboratory results Abnormal [facility] [employer] Basic Metab w/rfx MGon 05-28 Anion gap [Moles/Vol] 10 mmol/L Normal 9-16 [facility] Comment on above: Performed By: #### B MPX, CDP ####[employer] [address]tr[address]zmsr7442 [place] [address] Lab Director: Kelechi Dueñas MD Calcium [Mass/Vol] 8.0 mg/dL Low 8.6-10.4 [facility] Comment on above: Performed By: #### B MPX, CDP ####[employer] Gufsnwhtgfma8216 [place], [place] [phone] Lab Director: Kelechi Dueñas MD Chloride [Moles/Vol] 112 mmol/L High 98-107 [facility] Comment on above: Performed By: #### B MPX, CDP ####[employer] Njdjdsnhvisj4298 [place], [place] [phone] Lab Director: Kelechi Dueñas MD CO2 [Moles/Vol] 16 mmol/L Low 20-31 [facility] Comment on above: Performed By: #### B MPX, CDP ####[facility] Sm[address]ph[address]rsbbx[address]99 [place], [place] [phone] Director: Kelechi Dueñas MD Creatinine [Mass/Vol] 1.9 mg/dL High 0.70-1.20 [facility] Comment on above: Performed By: #### B MPX, CDP ####[facility] [address] [place] [address] [phone] Director: Kelechi Dueñas MD GFR/1.73 sq M.predicted among non-blacks MDRD (S/P/Bld) [Vol rate/Area] 36 mL/min/{1.73_m2} Low >60 [facility] Comment on above: Result Comment: These results [...] secretion. Performed By: #### B MPX, CDP ####[address] [phone] Director: Kelechi Dueñas MD Glucose [Mass/Vol] 198 mg/dL High 74-99 [facility] Comment on above: Performed By: #### B MPX, CDP ####[facility] [address] [place] [address] [phone] Director: Kelechi Dueñas MD Potassium [Moles/Vol] 4.8 mmol/L Normal 3.7-5.3 [facility] Comment on above: Performed By: #### B MPX, CDP ####[facility] [address] [place] [address] lab Director: Kelechi Dueñas MD Sodium [Moles/Vol] 138 mmol/L Normal 136-145 [facility] Comment on above: Performed By: #### B MPX, CDP ####[facility] [address]tt[address]up[address] [place], [place] [phone] lab Director: Kelechi Dueñas MD Urea nitrogen [Mass/Vol] 58 mg/dL High 8-23 [facility] Comment on above: Performed By: #### B MPX, CDP ####[facility] [address] [place], [place] [phone] lab Director: Kelechi Dueñas MD Basic Metabolic Panel w/ Ref ervin to MGon 05-28-2024 Anion gap [Moles/Vol] 10 mmol/L 9 - 16 mmol/L [facility] Calcium [Mass/Vol] 8.0 mg/dL Low 8.6 - 10. 4 mg/dL [facility] Chloride [Moles/Vol] 112 mmol/L High 98 - 10 7 mmol/L [facility] CO2 [Moles/Vol] 16 mmol/L Low 20 - 31 mmol/L [facility] Creatinine [Mass/Vol] 1.9 mg/dL High 0.70 - 1.20 mg/dL [facility] Est, Glom Filt Rate 36 Low - [facility] Glucose [Mass/Vol] 198 mg/dL High 74 - 99 mg/dL [facility] Interpretation and review of laboratory results Abnormal [facility] Potassium [Moles/Vol] 4.8 mmol/L 3.7 - 5.3 mmol/L [facility] Sodium [Moles/Vol] 138 mmol/L 136 - 145 mmol/L [facility] Urea nitrogen [Mass/Vol] 58 mg/dL High 8 - 23 mg/dL [facility] CBC with Auto Differentialon 05-28-2024 Basophils (Bld) [#/Vol] 0.00 10*3/uL [facility] Basophils/100 WBC (Bld) 0 % 0 - 2 % B [facility] Eosinophils (Bld) [#/Vol] 0.00 10*3/uL [facility] Eosinophils/100 WBC (Bld) 0 % Low 1 - 4 % [facility] Erythrocyte distribution width (RBC) [Ratio] 12.8 % 11.8 - 14.4 % [facility] Hematocrit (Bld) [Volume fraction] 32.1 % Low 40.7 - 50.3 % [facility] Hemoglobin (Bld) [Mass/Vol] 9.1 g/dL Low 13.0 - 17.0 g/dL [facility] Immature granulocytes (Bld) [#/Vol] 0.13 10*3/uL [facility] Immature granulocytes/100 WBC (Bld) 1 % High 0 [facility] Interpretation and review of laboratory results Abnormal [facility] Lymphocytes/100 WBC (Bld) 8 % Low 24 - 43 % [facility] Lymphocytes/100 WBC (Bld) 1.01 % Low [facility] MCH (RBC) [Entitic mass] 28.0 pg 25.2 - 33.5 pg [facility] MCHC (RBC) [Mass/Vol] 28.3 g/dL Low 28.4 - 34.8 g/dL [facility] MCV (RBC) [Entitic vol] 98.8 fL 82.6 - 102.9 fL [facility] Monocytes/100 WBC (Bld) 10 % 3 - 12 % B [facility] Monocytes/100 WBC (Bld) 1.26 % High B [facility] Morphology Gerardo (Bld) [Interp] HYPOCHROMIA PRESENT [facility] Neutrophils/100 WBC (Bld) 81 % High 36 - 65 % [facility] Nucleated RBC/100 WBC (Bld) [Ratio] 0.0 % 0.0 per 100 WBC [facility] Platelet mean volume (Bld) [Entitic vol] 10.4 fL 8.1 - 13.5 fL [facility] Platelets (Bld) [#/Vol] 189 10*3/uL [facility] RBC (Bld) [#/Vol] 3.25 10*6/uL Low 4.21 - 5.77 m/uL [facility] Segmented neutrophils/100 WBC (Bld) 10.20 % High [facility] WBC other (Bld) [#/Vol] 12.6 High B [facility] CBC with Diffon 05-28-2024 Abs. Basophil 0.00 k/uL Normal 0.00-0.20 [facility] Comment on above: Performed By: #### B MPX, CDP ####[facility] [address]esuzbi[address] [place] [address] Lab Director: Kelechi Dueñas MD Abs.Imm.Granulocyte 0.13 k/uL Normal 0.00-0.30 [facility] Comment on above: Performed By: #### B MPX, CDP ####[facility] [address] [place] [address] Lab Director: Kelechi Dueñas MD Abs.Neutrophil (Seg) 10.20 k/uL High 1.50-8.10 [facility] Comment on above: Performed By: #### B MPX, CDP ####[facility] [address] [place] [address] [phone] Director: Kelechi Dueñas MD Basophils/100 WBC (Bld) 0 % Normal 0-2 [facility] Comment on above: Performed By: #### B MPX, CDP ####[facility] [address] [place] [phone])[phone] Director: Kelechi Dueñas MD Eosinophils (Bld) [#/Vol] 0.00 10*3/uL Normal 0.00-0.44 [facility] Comment on above: Performed By: #### B MPX, CDP ####[facility] [address] [place] [address] [phone] Director: Kelechi Dueñas MD Eosinophils/100 WBC (Bld) 0 % Low 1-4 [facility] Comment on above: Performed By: #### B MPX, CDP ####[facility] [address]26[address] [place], [place] [phone] Director: Kelechi Dueñas MD Immature granulocytes/100 WBC (Bld) 1 % High 0 [facility] Comment on above: Performed By: #### B MPX, CDP ####[facility] [address]fwls9963 [place], [place] [phone] Director: Kelechi Dueñas MD Lymphocytes (Bld) [#/Vol] 1.01 10*3/uL Low 1.10-3.70 [facility] Comment on above: Performed By: #### B MPX, CDP ####[address] [phone] Director: Kelechi Dueñas MD Lymphocytes/100 WBC (Bld) 8 % Low 24-43 [facility] Comment on above: Performed By: #### B MPX, CDP ####[address] [phone] Director: Kelechi Dueñas MD Monocytes (Bld) [#/Vol] 1.26 10*3/uL High 0.10-1.20 [facility] Comment on above: Performed By: #### B MPX, CDP ####[address] [phone] Director: Kelechi Dueñas MD Monocytes/100 WBC (Bld) 10 % Normal 3-12 [facility] Comment on above: Performed By: #### B MPX, CDP ####[facility] [address] [place] [address] [phone] Director: Kelechi Dueñas MD Morphology Gerardo (Bld) [Interp] HYPOCHROMIA PRESENT Normal [facility] Comment on above: Performed By: #### B MPX, CDP ####[facility] [address] [place] [address] Lab Director: Kelechi Dueñas MD Neutrophil (Seg) 81 % High 36-65 [facility] Comment on above: Performed By: #### B MPX, CDP ####[facility] [address] [place], [place] [phone] Director: Kelechi Dueñas MD Erythrocyte distribution width (RBC) [Ratio] 12.8 % Normal 11.8-14.4 [facility] Comment on above: Performed By: #### B MPX, CDP ####[facility] Jdlqetkjgejb1702 [place], [place] [phone] Director: Kelechi Dueñas MD Hematocrit (Bld) [Volume fraction] 32.1 % Low 40.7-50.3 [facility] Comment on above: Performed By: #### B MPX, CDP ####[facility] [address] [place] [address] [phone] Director: Kelechi Dueñas MD Hemoglobin (Bld) [Mass/Vol] 9.1 g/dL Low 13.0-17.0 [facility] Comment on above: Performed By: #### B MPX, CDP ####[facility] V[address] [place], [place] [phone] Director: Kelechi Dueñas MD MCH (RBC) [Entitic mass] 28.0 pg Normal 25.2-33.5 [facility] Comment on above: Performed By: #### B MPX, CDP ####[facility] Myjqkwkdricm5966 [place], [place] [phone] Director: Kelechi Dueñas MD MCHC (RBC) [Mass/Vol] 28.3 g/dL Low 28.4-34.8 [facility] Comment on above: Performed By: #### B MPX, CDP ####[facility] Fesjxumkgcso4430 [place], [place] [phone] Director: Kelechi Dueñas MD MCV (RBC) [Entitic vol] 98.8 fL Normal 82.6-102.9 [facility] Comment on above: Performed By: #### B MPX, CDP ####[address] [phone] Director: Kelechi Dueñas MD NRBC Automated 0.0 per 100 WBC Normal 0.0 [facility] Comment on above: Performed By: #### B MPX, CDP ####[facility] [address] [place] [address] [phone] Director: Kelechi Dueñas MD Platelet mean volume (Bld) [Entitic vol] 10.4 fL Normal 8.1-13.5 [facility] Comment on above: Performed By: #### B MPX, CDP ####[address] [phone] Director: Kelechi Dueñas MD Platelets (Bld) [#/Vol] 189 10*3/uL Normal 138-453 [facility] Comment on above: Performed By: #### B MPX, CDP ####[address] [address] Lab Director: Kelechi Dueñas MD RBC (Bld) [#/Vol] 3.25 10*6/uL Low 4.21-5.77 [facility] Comment on above: Performed By: #### B MPX, CDP ####[facility] [address] [place] [address] Lab Director: Kelechi Dueñas MD WBC (Bld) [#/Vol] 12.6 10*3/uL High 3.5-11.3 [facility] Comment on above: Performed By: #### B MPX, CDP ####[address] [place], [place] [phone] Director: Kelechi Dueñas MD Cult,Bloodon 05-28-2024 Cult,Blood Specimen Description .BLOOD Special Requests L FOREARM 10ML Culture NO GROWTH 5 DAYS Report Status FINAL 05/28/2024 Normal [facility] Comment on above: Performed By: #### B C ####[employer] [address]rp[address] [place] [address] lab Director: Kelechi Dueñas MD Culture, Blood 1on 4 Microorganism identified Cx Nom (Unsp spec) NO GROWTH 5 DAYS [facility] [employer] Service comment (Unsp spec) [Interp] L FOREARM 10ML [facility] Specimen Description .BLOOD [facility] [employer] [facility] [employer] Glucose,Whole Bloodon 2023 Glucose [Mass/Vol] 164 mg/dL High 75-110 [facility] Glucose [Mass/Vol] 192 mg/dL High 75-110 [facility] Glucose [Mass/Vol] 192 mg/dL High 75-110 [facility] Glucose [Mass/Vol] 184 mg/dL High 75-110 [facility] No Panel Informationon 05-28 MHPN RIS CONSOLIDATED PN RIS CONSOLIDATED [facility] [employer] [facility] Radiology Study observation (narrative) [facility] [employer] No Panel InformationOrdered By: Patricio Avery on 05-28-2024 Dot Work Phone: POC Glucose Fingerstickon Glucose [Mass/Vol] 164 mg/dL High 75 - 110 mg/dL [employer] [facility] Interpretation and review of laboratory results Abnormal [facility] [employer] [facility] Glucose [Mass/Vol] 192 mg/dL High 75 - 110 mg/dL [facility] [employer] Interpretation and review of laboratory results Abnormal [facility] [employer] Glucose [Mass/Vol] 192 mg/dL High 75 - 110 mg/dL [facility] [employer] Interpretation and review of laboratory results Abnormal [facility] [employer] [facility] [employer] Glucose [Mass/Vol] 184 mg/dL High 75 - 110 mg/dL [facility] Interpretation and review of laboratory results Abnormal [facility] XR CERVICAL SPINE (2-3 VIEWS )on 05-28-2024 [...] Patricio Avery MD 05/28/24 Final result Normal [facility] XR LUMBAR SPINE (2-3 VIEWS)o n 05-28-2024 [...] Patricio Avery MD 05/28/24 Final result Normal [facility] Calcium, Ionicon 05-27-2024 Calcium [Moles/Vol] 1.21 mmol/L Normal 1.13-1.33 [facility] Comment on above: Performed By: #### O HP, LACTIC, IOCAL ####[facility] [address] [place], [place] [phone] Director: Kelechi Dueñas MD Calcium, Ionizedon Calcium.ionized (Bld) [Moles/Vol] 1.21 mmol/L 1.13 - 1.33 mmol/L [facility] Comp Metabolic Pr/rfx MGon 0 05-27-2024 Albumin [Mass/Vol] 3.1 g/dL Low 3.5-5.2 [facility] Comment on above: Performed By: #### C MPX ####[id number] [place], [place] [id number])[phone] Director: Kelechi Dueñas MD Albumin/Glob Ratio 1.0 Normal 1.0-2.5 [facility] Comment on above: Performed By: #### C MPX ####[facility] [id number] [place], [place] [phone] Director: Kelechi Dueñas MD Alkaline Phos 81 U/L Normal 40-129 [facility] Comment on above: Performed By: #### C MPX ####[facility] [address] [place] [address] Lab Director: Kelechi Dueñas MD ALT [Catalytic activity/Vol] 29 U/L Normal 10-50 [facility] Comment on above: Performed By: #### C MPX ####[facility] [id number] [place] [address] Lab Director: Kelechi Dueñas MD Anion gap [Moles/Vol] 9 mmol/L Normal 9-16 [facility] Comment on above: Performed By: #### C MPX ####[facility] [address] [place], [place] [phone] Director: Kelechi Dueñas MD AST [Catalytic activity/Vol] 28 U/L Normal 10-50 [facility] Comment on above: Performed By: #### C MPX ####[facility] [address] [place], [place] [phone] Director: Kelechi Dueñas MD Bilirubin [Mass/Vol] 0.2 mg/dL Normal 0.00-1.20 [facility] Comment on above: Performed By: #### C MPX ####[address] [address])[phone] Director: Kelechi Dueñas MD Calcium [Mass/Vol] 8.5 mg/dL Low 8.6-10.4 [facility] Comment on above: Performed By: #### C MPX ####[address] [id number])[phone] Director: Kelechi Dueñas MD Chloride [Moles/Vol] 110 mmol/L High 98-107 [facility] Comment on above: Performed By: #### C MPX ####[facility] [address]it[address] [place], [place] [phone])[phone] Director: Kelechi Dueñas MD CO2 [Moles/Vol] 20 mmol/L Normal 20-31 [facility] Comment on above: Performed By: #### C MPX ####[facility] [address] [place] [address])[phone] Director: Kelechi Dueñas MD Creatinine [Mass/Vol] 1.9 mg/dL High 0.70-1.20 [facility] Comment on above: Performed By: #### C MPX ####[address] [address] Lab Director: Kelechi Dueñas MD GFR/1.73 sq M.predicted among non-blacks MDRD (S/P/Bld) [Vol rate/Area] 36 mL/min/{1.73_m2} Low >60 [facility] Comment on above: Result Comment: These results [...] tubular secretion. Performed By: #### C MPX ####[address] [address] Lab Director: Kelechi Dueñas MD Glucose [Mass/Vol] 197 mg/dL High 74-99 [facility] Comment on above: Performed By: #### C MPX ####[address] [address] Lab Director: Kelechi Dueñas MD Potassium [Moles/Vol] 4.0 mmol/L Normal 3.7-5.3 [facility] Comment on above: Performed By: #### C MPX ####[address] [phone] Director: Kelechi Dueñas MD Protein [Mass/Vol] 5.5 g/dL Low 6.6-8.7 [facility] Comment on above: Performed By: #### C MPX ####[address] [phone] Director: Kelechi Dueñas MD Sodium [Moles/Vol] 139 mmol/L Normal 136-145 [facility] Comment on above: Performed By: #### C MPX ####[facility] [address] [place] [address] Lab Director: Kelechi Dueñas MD Urea nitrogen [Mass/Vol] 58 mg/dL High 05-28 [facility] Comment on above: Performed By: #### C MPX ####[facility] [address] [place] [address] lab Director: Kelechi Dueñas MD Comprehensive Metabolic Pane l w/ Reflex to MGon 05-27-2024 Albumin [Mass/Vol] 3.1 g/dL Low 3.5 - 5.2 g/dL [facility] Albumin/Globulin [Mass ratio] 1.0 {ratio} 1.0 - 2.5 [facility] ALP [Catalytic activity/Vol] 81 U/L 40 - 129 U/L [facility] ALT [Catalytic activity/Vol] 29 U/L 10 - 50 U/L [facility] Anion gap [Moles/Vol] 9 mmol/L 9 - 16 mmol/L [facility] AST [Catalytic activity/Vol] 28 U/L 10 - 50 U/L [facility] Bilirubin [Mass/Vol] 0.2 mg/dL 0.00 - 1.20 mg/dL [facility] Calcium [Mass/Vol] 8.5 mg/dL Low 8.6 - 10. 4 mg/dL [facility] Chloride [Moles/Vol] 110 mmol/L High 98 - 10 7 mmol/L [facility] CO2 [Moles/Vol] 20 mmol/L 20 - 31 mmol/L [facility] Creatinine [Mass/Vol] 1.9 mg/dL High 0.70 - 1.20 mg/dL [facility] Est, Glom Filt Rate 36 Low - [facility] Glucose [Mass/Vol] 197 mg/dL High 74 - 99 mg/dL [facility] Interpretation and review of laboratory results Abnormal [facility] Potassium [Moles/Vol] 4.0 mmol/L 3.7 - 5.3 mmol/L [facility] Protein [Mass/Vol] 5.5 g/dL Low 6.6 - 8.7 g/dL [facility] Sodium [Moles/Vol] 139 mmol/L 136 - 145 mmol/L [facility] Urea nitrogen [Mass/Vol] 58 mg/dL High 8 - 23 mg/dL [facility] FLUORO FOR SURGICAL PROCEDUR ESon 05-27-2024 FLUORO [...] Ascencion Dickson MD 05/27/24 Final result Normal [facility] FLUORO FOR SURGICAL PROCEDURES Radiology exam is complete. No Radiologist dictation. Please follow up with ordering provider. Final result Normal [facility] FLUORO FOR SURGICAL PROCEDURES Radiology exam is complete. No Radiologist dictation. Please follow up with ordering provider. Final result Normal [facility] Glucose,Whole Bloodon 2023 Glucose [Mass/Vol] 248 mg/dL High 75-110 [facility] Glucose [Mass/Vol] 215 mg/dL High 75-110 [facility] Glucose [Mass/Vol] 174 mg/dL High 75-110 [facility] Guidance-- during surgeryon 05-27-2024 [facility] RIS CONSOLIDATED [facility] RIS CONSOLIDATED Radiology Study observation (narrative) [facility] Lactic Acidon 05-27-2024 Lactic Acid, Whole Blood 1.4 mmol/L 0.7 - 2.1 mmol/L [facility] Lactic Acid,Whole Bl 1.4 mmol/L Normal 0.7-2.1 [facility] Comment on above: Performed By: #### O HP, LACTIC, IOCAL ####[facility] [address]bwhuriclua64[address] [place] [address] lab Director: Kelechi Dueñas MD No Panel Informationon 05-27 [facility] OPEN HEART PANELon Arterial patency Wrist artery --pre arterial puncture INFORMATION NOT PROVIDED [facility] Carboxyhemoglobin (Bld) [Mass fraction] 1.9 % 0 - 5 % [facility] Chloride [Moles/Vol] 116 mmol/L High 98 - 11 0 mmol/L [facility] Glucose [Mass/Vol] 184 mg/dL High 75 - 110 mg/dL [facility] HCO3 (Bld) [Moles/Vol] 18.4 mmol/L Low 22 - 27 mmol/L [facility] Hematocrit (Bld) [Volume fraction] 28.3 % Low 40.7 - 50.3 % [facility] Hemoglobin (Bld) [Mass/Vol] 9.1 g/dL Low [facility] Interpretation and review of laboratory results Abnormal [facility] Negative Base Excess, Art 7.2 mmol/L High 0.0 - 2.0 mmol/L [facility] Oxygen saturation in Blood 98.7 % 94 - 100 % [facility] Oxygen/Inspired gas Respiratory system --on ventilator 50% [facility] pCO2, Art, Temp Adj 37.4 32 - 45 [facility] pCO2, Arterial 40.0 [facility] pH, Art, Temp Adj 7.304 Low 7.350 - 7.450 [facility] pH, Arterial 7.284 Low 7.350 - 7.450 [facility] pO2, Art, Temp Adj 177.0 High [facility] pO2, Arterial 183.0 High [facility] Potassium [Moles/Vol] 4.5 mmol/L 3.6 - 5.0 mmol/L [facility] Sodium [Moles/Vol] 138 mmol/L 136 - 145 mmol/L [facility] Open Heart Panelon 4 Lux Test INFORMATION NOT PROVIDED [facility] Comment on above: Performed By: #### O HP, LACTIC, IOCAL ####[facility] [address] [place] [address] Lab Director: Kelechi Dueñas MD Body Temp. 35.6 Normal [facility] Comment on above: Performed By: #### O HP, LACTIC, IOCAL ####[facility] [address] [place] [address] Lab Director: Kelechi Dueñas MD Carboxy Hgb 1.9 % Normal 0-5 [facility] Comment on above: Result Comment: Reference Range: Non-Smokers 0-2% Average Smoker 2-4% Heavy Smoker <10% Performed By: #### O HP, LACTIC, IOCAL ####[facility] [address] [place] [address] Lab Director: Kelechi Dueñas MD Chloride [Moles/Vol] 116 mmol/L High 98-110 [facility] Comment on above: Performed By: #### O HP, LACTIC, IOCAL ####[facility] [address] [place] [address] Lab Director: Kelechi Dueñas MD FIO2 50% Normal [facility] Comment on above: Performed By: #### O HP, LACTIC, IOCAL ####[facility] [address] [place] [address] Lab Director: Kelechi Dueñas MD Glucose [Mass/Vol] 184 mg/dL High 75-110 [facility] Comment on above: Performed By: #### O HP, LACTIC, IOCAL ####[facility] [address] [place], [place] [address])[phone] Director: Kelechi Dueñas MD HCO3 (Bld) [Moles/Vol] 18.4 mmol/L Low 22-27 [facility] Comment on above: Performed By: #### O HP, LACTIC, IOCAL ####[facility] [address]luxxwosqgke[address] [place], [place] [address])[phone] Director: Kelechi Dueñas MD Hematocrit (Bld) [Volume fraction] 28.3 % Low 40.7-50.3 [facility] Comment on above: Performed By: #### O HP, LACTIC, IOCAL ####[facility] [address] [place], [place] [address])[phone] Director: Kelechi Dueñas MD Hemoglobin (Bld) [Mass/Vol] 9.1 g/dL Low 13.0-17.0 [facility] Comment on above: Performed By: #### O HP, LACTIC, IOCAL ####[facility] [address] [place], [place] [address])[phone] Director: Kelechi Dueñas MD Negative Base Excess 7.2 mmol/L High 0.0-2.0 [facility] Comment on above: Performed By: #### O HP, LACTIC, IOCAL ####[facility] [address]ex[address] [place], [place] [address])[phone] Director: Kelechi Dueñas MD Oxygen (Bld) [Partial pressure] 183.0 mm[Hg] High 75-95 [facility] Comment on above: Performed By: #### O HP, LACTIC, IOCAL ####[facility] [address] [place], [place] [address])[phone] Director: Kelechi Dueñas MD Oxygen saturation in Blood 98.7 % Normal 94-100 [facility] Comment on above: Performed By: #### O HP, LACTIC, IOCAL ####[facility] [address] [place], [place] [phone] Director: Kelechi Dueñas MD pCO2 40.0 mmHg Normal 32-45 [facility] Comment on above: Performed By: #### O HP, LACTIC, IOCAL ####[facility] [address] [place] [address] Lab Director: Kelechi Dueñas MD pCO2 Adj'd for Temp 37.4 Normal 32-45 [facility] Comment on above: Performed By: #### O HP, LACTIC, IOCAL ####[facility] [address]ws[address]96[address] [place], [place] [phone] Director: Kelechi Dueñas MD pH (Bld) 7.284 [pH] Low 7.350-7.45 0 [facility] Comment on above: Performed By: #### O HP, LACTIC, IOCAL ####[facility] [address] [place] [address] [id number])[phone] Director: Kelechi Dueñas MD pH Adjst'd for Temp. 7.304 Low 7.350-7 .45 0 [facility] Comment on above: Performed By: #### O HP, LACTIC, IOCAL ####[facility] [address]cbhcd495[address] [place] [address] Lab Director: Kelechi Dueñas MD pO2 Adjst'd for Temp 177.0 mmHg High 75-95 [facility] Comment on above: Performed By: #### O HP, LACTIC, IOCAL ####[facility] [address]af[address] [place] [address] Lab Director: Kelechi Dueñas MD Potassium [Moles/Vol] 4.5 mmol/L Normal 3.6-5.0 [facility] Comment on above: Performed By: #### O HP, LACTIC, IOCAL ####[facility] [address] [place] [address] Lab Director: Kelechi Dueñas MD Sodium [Moles/Vol] 138 mmol/L Normal 136-145 [facility] Comment on above: Performed By: #### O HP, LACTIC, IOCAL ####[facility] [address] [place] [address] lab Director: Kelechi Dueñas MD POC Glucose Fingerstickon Glucose [Mass/Vol] 248 mg/dL High 75 - 110 mg/dL [facility] Interpretation and review of laboratory results Abnormal [facility] Glucose [Mass/Vol] 215 mg/dL High 75 - 110 mg/dL [facility] Interpretation and review of laboratory results Abnormal [facility] Glucose [Mass/Vol] 174 mg/dL High 75 - 110 mg/dL [facility] Interpretation and review of laboratory results Abnormal [facility] ALDOLASEon 05-26-2024 Aldolase [Catalytic activity/Vol] 2.9 mU/mL 1.2 - 7.6 U/L [facility] Aldolaseon 05-26-2024 Aldolase 2.9 U/L Normal 1.2-7.6 [facility] Comment on above: Result Comment: (NOT E) REFERENCE INTERVAL: Aldolase Access complete set of age- and/or gender-specific reference intervals for this test in the [facility] Test Directory ([employer]). Performed By: [employer] [address] [place] [address] Overseamer: Grady Avery MD, PhD CLIA Number: [id number] Performed By: #### C K ####[facility] [address] [place] [address] Lab Director: Kelechi Dueñas MD#### AALDO ####[employer] [address] [place] [phone] lab Director: Yanick Wilcox MD Anti-Neutrophilic Cytoplasmi c Antibodyon 05-26-2024 ANCA Myeloperoxidase 0.9 AU/mL 0.0 - 3 .5 AU/mL [facility] ANCA Proteinase 3 AU/mL 0.0 - 2.0 AU/mL [facility] CBC with Auto Differentialon 05-26-2024 Basophils (Bld) [#/Vol] B ON [facility] Eosinophils (Bld) [#/Vol] [facility] Erythrocyte distribution width (RBC) [Ratio] 12.2 % 11.8 - 14.4 % [facility] Hematocrit (Bld) [Volume fraction] 31.3 % Low 40.7 - 50.3 % [facility] Hemoglobin (Bld) [Mass/Vol] 10.3 g/dL Low 13.0 - 17.0 g/dL [facility] Immature granulocytes (Bld) [#/Vol] 0.16 10*3/uL [facility] Interpretation and review of laboratory results Abnormal [facility] Lymphocytes/100 WBC (Bld) 0.72 % Low [facility] MCH (RBC) [Entitic mass] 28.2 pg 25.2 - 33.5 pg [facility] MCHC (RBC) [Mass/Vol] 32.9 g/dL 28.4 - 34.8 g/dL [facility] MCV (RBC) [Entitic vol] 85.8 fL 82.6 - 102.9 fL [facility] Monocytes/100 WBC (Bld) 0.41 % B ON [facility] Neutrophils/100 WBC (Bld) 93 % High 36 - 65 % [facility] Nucleated RBC/100 WBC (Bld) [Ratio] 0.0 % 0.0 per 100 WBC [facility] Platelet mean volume (Bld) [Entitic vol] 10.5 fL 8.1 - 13.5 fL [facility] Platelets (Bld) [#/Vol] 225 10*3/uL [facility] RBC (Bld) [#/Vol] 3.65 10*6/uL Low 4.21 - 5.77 m/uL [facility] Segmented neutrophils/100 WBC (Bld) 16.19 % High [facility] WBC other (Bld) [#/Vol] 17.5 High B ON [facility] CBC with Diffon 05-26-2024 Abs. Basophil <0.03 Normal 0.00-0.20 [facility] Comment on above: Performed By: #### C DP, CMPX, GLYHGB ####[facility] [address] [place], [place] [address])[phone] Director: Kelechi Dueñas MD Abs. Eosinophil <0.03 Normal 0.00-0.44 [facility] Comment on above: Performed By: #### C DP, CMPX, GLYHGB ####[facility] [address]ub[address] [place], [place] [address])[phone] Director: Kelechi Dueñas MD Abs.Imm.Granulocyte 0.16 k/uL Normal 0.00-0.30 [facility] Comment on above: Performed By: #### C DP, CMPX, GLYHGB ####[facility] [address] [place], [place] [address])[phone] Director: Kelechi Dueñas MD Abs.Neutrophil (Seg) 16.19 k/uL High 1.50-8.10 [facility] Comment on above: Performed By: #### C DP, CMPX, GLYHGB ####[facility] [address] [place], [place] [address])[phone] Director: Kelechi Dueñas MD Basophils/100 WBC (Bld) 0 % Normal 0-2 [facility] Comment on above: Performed By: #### C DP, CMPX, GLYHGB ####[facility] [address] [place], [place] [address])[phone] Director: Kelechi Dueñas MD Eosinophils/100 WBC (Bld) 0 % Low 1-4 [facility] Comment on above: Performed By: #### C DP, CMPX, GLYHGB ####[facility] [address] [place], [place] [address])[phone] Director: Kelechi Dueñas MD Immature granulocytes/100 WBC (Bld) 1 % High 0 [facility] Comment on above: Performed By: #### C DP, CMPX, GLYHGB ####[facility] [address]urkhu[address] [place], [place] [phone] Director: Kelechi Dueñas MD Lymphocytes (Bld) [#/Vol] 0.72 10*3/uL Low 1.10-3.70 [facility] Comment on above: Performed By: #### C DP, CMPX, GLYHGB ####[facility] [address] [place], [place] [address])[phone] Director: Kelechi Dueñas MD Lymphocytes/100 WBC (Bld) 4 % Low 24-43 [facility] Comment on above: Performed By: #### C DP, CMPX, GLYHGB ####[facility] [address] [place], [place] [address])[phone] Director: Kelechi Dueñas MD Monocytes (Bld) [#/Vol] 0.41 10*3/uL Normal 0.10-1.20 [facility] Comment on above: Performed By: #### C DP, CMPX, GLYHGB ####[facility] [address] [place], [place] [address])[phone] Director: Kelechi Dueñas MD Monocytes/100 WBC (Bld) 2 % Low 3-12 [facility] Comment on above: Performed By: #### C DP, CMPX, GLYHGB ####[facility] [address]veycnb[address] [place], [place] [address])[phone] Director: Kelechi Dueñas MD Neutrophil (Seg) 93 % High 36-65 [facility] Comment on above: Performed By: #### C DP, CMPX, GLYHGB ####[facility] [address] [place], [place] [address])[phone] Director: Kelechi Dueñas MD Erythrocyte distribution width (RBC) [Ratio] 12.2 % Normal 11.8-14.4 [facility] Comment on above: Performed By: #### C DP, CMPX, GLYHGB ####[facility] [address]fe[address] [place] [address] Lab Director: Kelechi Dueñas MD Hematocrit (Bld) [Volume fraction] 31.3 % Low 40.7-50.3 [facility] Comment on above: Performed By: #### C DP, CMPX, GLYHGB ####[facility] [address] [place], [place] [address])[phone] Director: Kelechi Dueñas MD Hemoglobin (Bld) [Mass/Vol] 10.3 g/dL Low 13.0-17.0 [facility] Comment on above: Performed By: #### C DP, CMPX, GLYHGB ####[facility] [address] [place], [place] [address])[phone] Director: Kelechi Dueñas MD MCH (RBC) [Entitic mass] 28.2 pg Normal 25.2-33.5 [facility] Comment on above: Performed By: #### C DP, CMPX, GLYHGB ####[facility] [address] [place] [address] Lab Director: Kelechi Dueñas MD MCHC (RBC) [Mass/Vol] 32.9 g/dL Normal 28.4-34.8 [facility] Comment on above: Performed By: #### C DP, CMPX, GLYHGB ####[facility] [address] [place] [address] Lab Director: Kelechi Dueñas MD MCV (RBC) [Entitic vol] 85.8 fL Normal 82.6-102.9 [facility] Comment on above: Performed By: #### C DP, CMPX, GLYHGB ####[facility] [address] [place], [place] 45403419)[phone] Director: Kelechi Dueñas MD NRBC Automated 0.0 per 100 WBC Normal 0.0 [facility] Comment on above: Performed By: #### C DP, CMPX, GLYHGB ####[facility] Mkegqohkrddz[address]2 [place], [place] [id number])[phone] Director: Kelechi Dueñas MD Platelet mean volume (Bld) [Entitic vol] 10.5 fL Normal 8.1-13.5 [facility] Comment on above: Performed By: #### C DP, CMPX, GLYHGB ####[facility] [address] [place], [place] 54905419)[phone] Director: Kelechi Dueñas MD Platelets (Bld) [#/Vol] 225 10*3/uL Normal 138-453 [facility] Comment on above: Performed By: #### C DP, CMPX, GLYHGB ####[facility] [address]fccl[address] [place], [place] [id number])[phone] Director: Kelechi Dueñas MD RBC (Bld) [#/Vol] 3.65 10*6/uL Low 4.21-5.77 [facility] Comment on above: Performed By: #### C DP, CMPX, GLYHGB ####[facility] [address] [place], [place] 55589419)[phone] Director: Kelechi Dueñas MD WBC (Bld) [#/Vol] 17.5 10*3/uL High 3.5-11.3 [facility] Comment on above: Performed By: #### C DP, CMPX, GLYHGB ####[facility] [address] [place], [place] 63530419)[phone] Director: Kelechi Dueñas MD Cardiac echo study Procedure on 05-26-2024 Ao Root Index 1.96 cm/m2 [facility] Aortic Root 3.5 cm [facility] [employer] Ascending Aorta 3.5 cm [facility] Ascending Aorta Index 1.96 cm/m2 [facility]CA[facility] Area by Peak Velocity 1.7 cm2 [facility] [employer] AV Area by VTI 2.1 cm2 [facility] [employer] HEALTH AV Mean Gradient 6 mmHg [facility] AV Mean Velocity 1.2 m/s [facility] AV Peak Gradient 14 mmHg [facility] AV Peak Velocity 1.9 m/s [facility] AV Velocity Ratio 0.47 [facility] AV VTI 37.9 cm [facility] [employer] HEALTH KARLY/BSA Peak Velocity 0.9 cm2/m2 [facility] [employer] KARLY/BSA VTI 1.2 cm2/m2 [facility] [employer] Body surface area Derived from formula 1.81 m2 [facility] [employer] E/E' Lateral 15.63 [facility] HEALTH E/E' Ratio (Averaged) 18.23 [facility] [employer] E/E' Septal 20.83 [facility] [employer] EF Physician 47 % [facility] [employer] Fractional Shortening 2D 21 % 28 - 44 % [facility] [employer] Interpretation and review of laboratory results Abnormal [facility] [employer] IVSd 1.2 cm Abnormal 0.6 - 1.0 cm [facility] [employer] LA Area 2C 26.2 cm2 [facility] [employer] [place] Area 4C 22.9 cm2 [facility] [employer] [place] Diameter 4.1 cm [facility] [employer] [place] Major Mulberry 7.1 cm [facility] [employer] [place] Minor [place] 6.0 cm [facility] [employer] [place] Size Index 2.29 cm/m2 [facility] [employer] LA Volume BP 82 mL Abnormal 18 - 58 mL [facility]ALTH [place] Volume Index BP 46 ml/m2 Abnormal 16 - 34 ml/m2 [facility] [place] Volume Index MOD A2C 53 ml/m2 Abnormal 16 - 34 ml/m2 [facility] [employer] [place] Volume Index MOD A4C 35 ml/m2 Abnormal 16 - 34 ml/m2 [facility] [employer] [place] Volume MOD A2C 95 mL Abnormal 18 - 58 mL [facility] [employer] [place] Volume MOD A4C 62 mL Abnormal 18 - 58 mL [facility] [employer] [place]/AO Root Ratio 1.17 [facility] [facility] [employer] [place] E' Lateral Velocity 8 cm/s [place] [facility] [employer] [place] E' Septal Velocity 6 cm/s [facility] EDV A2C 141 mL [facility] [facility] A4C 101 mL [facility] Index A2C 79 mL/m2 [facility] Index A4C 56 mL/m2 [facility] [facility] Ejection Fraction A2C 48 % [facility] Ejection Fraction A4C 30 % [facility] ESV A2C 73 mL [facility] ESV A4C 70 mL [facility] [employer] LV ESV Index A2C 41 mL/m2 [facility] [employer] LV ESV Index A4C 39 mL/m2 [facility] [employer] LV Mass 2D 234.6 g Abnormal 88 - 224 g [facility] [employer] LV Mass 2D Index 131.1 g/m2 Abnormal 49 - 115 g/m2 [facility] [employer] LV RWT Ratio 0.42 [facility] LVIDd 5.2 cm 4.2 - 5.9 cm [facility] LVIDd Index 2.91 cm/m2 [facility] [employer] LVIDs 4.1 cm [facility] LVIDs Index 2.29 cm/m2 [facility] [employer] LVOT Area 3.5 cm2 [facility] [employer] LVOT Diameter 2.1 cm [facility] [employer] LVOT Mean Gradient 2 mmHg [facility] [employer] LVOT Peak Gradient 3 mmHg [facility] [employer] LVOT Peak Velocity 0.9 m/s [facility] [employer] LVOT Stroke Volume Index 44.7 mL/m2 [facility] [employer] LVOT SV 80.0 ml [facility] [employer] LVOT VTI 23.1 cm [facility] [employer] LVOT:AV VTI Index 0.61 [facility] [employer] LVPWd 1.1 cm Abnormal 0.6 - 1.0 cm [facility] [employer] MR Peak Gradient 108 mmHg [facility] [employer] MR Peak Velocity 5.2 m/s [facility] [employer] MR Radius PISA 0.80 cm [facility] [employer] MR VTI 195.0 cm [facility] [employer] MV A Velocity 1.45 m/s [facility] MV Area by VTI 2.1 cm2 [facility] MV E Velocity 1.25 m/s [facility] E Wave Deceleration Time 155.0 ms [facility] MV E/A 0.86 [facility] MV Max Velocity 1.6 m/s [facility] HE[facility] MV Mean Gradient 5 mmHg [facility] HE[facility] MV Mean Velocity 1.1 m/s [facility] SECO URS [facility] HE[facility] MV Nyquist Velocity 27 cm/s [facility] S [facility] HEALTH MV Peak Gradient 10 mmHg [facility] SECO URS [facility] HEALTH MV VTI 38.0 cm [facility] MV:LVOT VTI Index 1.65 [facility] SEC [facility]S [facility] HEALTH PV Max Velocity 1.1 m/s [facility] SECOU RS [facility] HEALTH PV Peak Gradient 5 mmHg [facility] SECO [facility]PS [facility] RA Area 4C 16.4 cm2 [facility] RA Volume 43 ml [facility] RA Volume Index A4C 24 mL/m2 [facility] S [facility] HEALTH RV Basal Dimension 3.7 cm [facility] HEALTH RV Free Wall Peak S' 15 cm/s [facility] TAPSE 2.9 cm 1.7 cm [facility] B[facility] CV CPACS [facility] Radiology Study observation (narrative) [facility] Chloride, Random Urineon Chloride (U) [Moles/Vol] 35 mmol/L [facility] Chloride,Random Uron 024 Chloride [Moles/Vol] 35 mmol/L Normal [facility] Comment on above: Result Comment: No n ormal range established. Performed By: #### U RCL, URNA, URTPRT ####[employer] [address] [place] [address] [facility] Director: Kelechi Dueñas MD Comp Metabolic Pr/rfx MGon 0 05-26-2024 Albumin [Mass/Vol] 3.0 g/dL Low 3.5-5.2 [facility] Comment on above: Performed By: #### C DP, CMPX, GLYHGB ####[facility] [address] [place], [place] [id number])[phone] Director: Kelechi Dueñas MD Albumin/Glob Ratio 1.0 Normal 1.0-2.5 [facility] Comment on above: Performed By: #### C DP, CMPX, GLYHGB ####[facility] [address]tircati[address] [place], [place] [id number])[phone] Director: Kelechi Dueñas MD Alkaline Phos 84 U/L Normal 40-129 [facility] Comment on above: Performed By: #### C DP, CMPX, GLYHGB ####[facility] [address]tyryjxiuaxt[address] [place], [place] [id number])[phone] Director: Kelechi Dueñas MD ALT [Catalytic activity/Vol] 22 U/L Normal 10-50 [facility] Comment on above: Performed By: #### C DP, CMPX, GLYHGB ####[facility] [address] [place] [address] Lab Director: Kelechi Dueñas MD Anion gap [Moles/Vol] 9 mmol/L Normal 9-16 [facility] Comment on above: Performed By: #### C DP, CMPX, GLYHGB ####[facility] [address] [place], [place] [phone])[phone] Director: Kelechi Dueñas MD AST [Catalytic activity/Vol] 25 U/L Normal 10-50 [facility] Comment on above: Performed By: #### C DP, CMPX, GLYHGB ####[facility] A[address]wmqbveiox[address] [place], [place] [id number])[phone] Director: Kelechi Dueñas MD Bilirubin [Mass/Vol] 0.3 mg/dL Normal 0.00-1.20 [facility] Comment on above: Performed By: #### C DP, CMPX, GLYHGB ####[facility] [address]afsy[address] [place], [place] [id number])[phone] Director: Kelechi Dueñas MD Calcium [Mass/Vol] 8.6 mg/dL Normal 8.6-10.4 [facility] Comment on above: Performed By: #### C DP, CMPX, GLYHGB ####[facility] [address] [place], [place] [id number])[phone] Director: Kelechi Dueñas MD Chloride [Moles/Vol] 109 mmol/L High 98-107 [facility] Comment on above: Performed By: #### C DP, CMPX, GLYHGB ####[facility] [address] [place], [place] [address])[phone] Director: Kelechi Dueñas MD CO2 [Moles/Vol] 18 mmol/L Low 20-31 [facility] Comment on above: Performed By: #### C DP, CMPX, GLYHGB ####[facility] [address] [place], [place] [address])[phone] Director: Kelechi Dueñas MD Creatinine [Mass/Vol] 1.9 mg/dL High 0.70-1.20 [facility] Comment on above: Performed By: #### C DP, CMPX, GLYHGB ####[facility] [address]qfc[address] [place], [place] [address])[phone] Director: Kelechi Dueñas MD GFR/1.73 sq M.predicted among non-blacks MDRD (S/P/Bld) [Vol rate/Area] 37 mL/min/{1.73_m2} Low >60 [facility] Comment on above: Result Comment: These results [...] Performed By: #### C DP, CMPX, GLYHGB ####[facility] [address] [place], [place] [id number])[phone] Director: Kelechi Dueañs MD Glucose [Mass/Vol] 262 mg/dL High 74-99 [facility] Comment on above: Performed By: #### C DP, CMPX, GLYHGB ####[facility] [address] [place], [place] [phone])[phone] Director: Kelechi Dueñas MD Potassium [Moles/Vol] 4.2 mmol/L Normal 3.7-5.3 [facility] Comment on above: Performed By: #### C DP, CMPX, GLYHGB ####[facility] [address]op[address]67[address] [place], [place] [phone] Director: Kelechi Dueñas MD Protein [Mass/Vol] 5.8 g/dL Low 6.6-8.7 [facility] Comment on above: Performed By: #### C DP, CMPX, GLYHGB ####[facility] [address]resumy[address] [place], [place] [id number])[phone] Director: Kelechi Dueñas MD Sodium [Moles/Vol] 136 mmol/L Normal 136-145 [facility] Comment on above: Performed By: #### C DP, CMPX, GLYHGB ####[facility] [address] [place], [place] [id number])[phone] Director: Kelechi Dueñas MD Urea nitrogen [Mass/Vol] 55 mg/dL High 8-23 [facility] Comment on above: Performed By: #### C DP, CMPX, GLYHGB ####[facility] [address]hbdropn57[address] [place], [place] [id number])[phone] Director: Kelechi Dueñas MD Comprehensive Metabolic Pane l w/ Reflex to MGon 05-26-2024 Albumin [Mass/Vol] 3.0 g/dL Low 3.5 - 5.2 g/dL [facility] Albumin/Globulin [Mass ratio] 1.0 {ratio} 1.0 - 2.5 [facility] ALP [Catalytic activity/Vol] 84 U/L 40 - 129 U/L [facility] ALT [Catalytic activity/Vol] 22 U/L 10 - 50 U/L [facility] Anion gap [Moles/Vol] 9 mmol/L 9 - 16 mmol/L [facility] AST [Catalytic activity/Vol] 25 U/L 10 - 50 U/L [facility] Bilirubin [Mass/Vol] 0.3 mg/dL 0.00 - 1.20 mg/dL [facility] Calcium [Mass/Vol] 8.6 mg/dL 8.6 - 10. 4 mg/dL [facility] Chloride [Moles/Vol] 109 mmol/L High 98 - 10 7 mmol/L [facility] CO2 [Moles/Vol] 18 mmol/L Low 20 - 31 mmol/L [facility] Creatinine [Mass/Vol] 1.9 mg/dL High 0.70 - 1.20 mg/dL [facility] Est, Glom Filt Rate 37 Low - [facility] Glucose [Mass/Vol] 262 mg/dL High 74 - 99 mg/dL [facility] Interpretation and review of laboratory results Abnormal [facility] Potassium [Moles/Vol] 4.2 mmol/L 3.7 - 5.3 mmol/L [facility] Protein [Mass/Vol] 5.8 g/dL Low 6.6 - 8.7 g/dL [facility] Sodium [Moles/Vol] 136 mmol/L 136 - 145 mmol/L [facility] Urea nitrogen [Mass/Vol] 55 mg/dL High 8 - 23 mg/dL [facility] EKG 12 LeadOrdered By: Vinny Kinsey on 05-26-2024 Atrial Rate 72 BPM [facility] Work Phone: P [place] 37 degrees [facility] Work Phone: P-R Interval 118 ms [facility] Work Phone: Q-T Interval 416 ms [facility] Work Phone: QRS Duration 96 ms [facility] [email or web address] Work Phone: QTc Calculation (Bazett) 455 ms [employer] Work Phone: R [place] 27 degrees [facility] [email or web address] Work Phone: T [place]berry -37 degrees [employer] Work Phone: Ventricular Rate 72 BPM [facility] [employer] Work Phone: [facility] [email or web address] Work Phone: EKG 12 Leadon 05-26-2024 [facility] [address] MUSE Dot EKG Rhythm Stripon 4 [facility] [employer] [facility] Glucose,Whole Bloodon 2023 Glucose [Mass/Vol] 197 mg/dL High 75-110 [facility] Glucose [Mass/Vol] 198 mg/dL High 75-110 [facility] Glucose [Mass/Vol] 247 mg/dL High 75-110 [facility] Glucose [Mass/Vol] 268 mg/dL High 75-110 [facility] Hemoglobin A1Con 05-26-2024 Average glucose Estimated from glycated hemoglobin (Bld) [Mass/Vol] 166 mg/dL [facility] HbA1c (Bld) [Mass fraction] 7.4 % High 4.0 - 6.0 % [facility] Interpretation and review of laboratory results Abnormal [facility] [email or web address] [facility] Glucose [Mass/Vol] 166 mg/dL Normal [facility] Comment on above: Result Comment: The ADA and AACC recommend providing the estimated average glucose result to permit better patient understanding of their HBA1c result. Performed By: #### C SIMONA BACA, GLYHGB ####[address] [place] [address] lab Director: Kelechi Dueñas MD HbA1c (Bld) [Mass fraction] 7.4 % High 4.0-6.0 [facility] Comment on above: Performed By: #### C SIMONA BACA, GLYHGB ####[facility] [address]mz[address] [place], [place] [phone] lab Director: Kelechi Dueñas MD Neutrophil Cytopl Abon 05-26 MPO-ANCA 0.9 AU/mL Normal 0.0-3.5 [facility] Comment on above: Result Comment: Reference Range: <3.5 Negative 3.5-5.0 Equivocal >5.0 Positive Performed By: #### A NCACP ####[facility] [address]fsrfjt[address] [place], [place] [id number] lab Director: Kelechi Dueñas MD PR3-ANCA <0.7 Normal 0.0-2.0 [facility] Comment on above: Result Comment: Reference Range: <2.0 Negative 2.0-3.0 Equivocal >3.0 Positive Performed By: #### A NCACP ####[facility] [address] [place] [address] lab Director: Kelehci Dueñas MD No Panel Informationon 05-26 [facility] POC Glucose Fingerstickon Glucose [Mass/Vol] 197 mg/dL High 75 - 110 mg/dL [facility] Interpretation and review of laboratory results Abnormal [facility] Glucose [Mass/Vol] 198 mg/dL High 75 - 110 mg/dL [facility] Interpretation and review of laboratory results Abnormal [facility] Glucose [Mass/Vol] 247 mg/dL High 75 - 110 mg/dL [facility] Interpretation and review of laboratory results Abnormal [facility] Glucose [Mass/Vol] 268 mg/dL High 75 - 110 mg/dL [facility] Interpretation and review of laboratory results Abnormal [facility] Protein / creatinine ratio, urineon 05-26-2024 Creatinine (U) [Mass/Vol] 53.1 mg/dL 39.0 - 259.0 mg/dL [facility] Protein (U) [Mass/Vol] 55 mg/dL [facility] Urine Total Protein Creatinine Ratio 1.03 [facility] Protein,Tot,[place] Uron 2023 Creatinine [Mass/Vol] 53.1 mg/dL Normal 39.0-259.0 [facility] Comment on above: Performed By: #### U RCL, URNA, URTPRT ####[facility] [address] [place] [address] Lab Director: Kelechi Dueñas MD Tot Prot. Conc. 55 mg/dL Normal [facility] Comment on above: Result Comment: No n ormal range established. Performed By: #### U RCL, URNA, URTPRT ####[facility] [address] [place] [address] Lab Director: Kelechi Dueñas MD TP/Cre Ratio 1.03 [facility] Comment on above: Performed By: #### U RCL, URNA, URTPRT ####[facility] [address]wfvv[address] [place] [address] Lab Director: Kelechi Dueñas MD Sodium, Random Uron 05-26-20 Sodium (U) [Moles/Vol] 31 mmol/L Normal [facility] Comment on above: Result Comment: No n ormal range established. Performed By: #### U RCL, URNA, URTPRT ####[facility] [address]riz[address] [place] [address] Lab Director: Kelechi Dueñas MD Sodium, urine, randomon 05-07 Sodium (U) [Moles/Vol] 31 mmol/L [facility] MESHA SCREEN WITH REFLEXon DNA double strand IgG IA Ql (S) NINF [facility] Nuclear Ab IA Ql (S) Negative NEGATIVE [facility] Nuclear IgG IA (S) [Ratio] U/mL NINF - 0.7 U/mL [facility] MESHA Screen w/reflexon 2023 MESHA Screen Negative Normal NEG [facility] Comment on above: Performed By: #### A NAX ####[facility] Center[facility] OpinionJbdttnbluzxw4769 [place], [place] [id number] lab Director: Kelechi Dueñas MD Anti-dsDNA <0.5 Normal <10.0 [facility] Comment on above: Result Comment: Reference Range: <10.0 Negative 10.0-15.0 Equivocal >15.0 Positive Performed By: #### A NAX ####[facility] OpinionYvbtednojwpo6988 [place], [place] [id number] lab Director: Kelechi Dueñas MD MAXWELL Screen <0.1 Normal <0.7 [facility] Comment on above: Result Comment: Reference Range: <0.7 Negative 0.7-1.0 Equivocal >1.0 Positive [facility] Screen includes U1RNP,RNP70,Sm,Ro(SS-A),La(SS-B),CENP,Scl-70,Karolina-1 Performed By: #### A NAX ####[facility] [address] [place] [address] [id number] lab Director: Kelechi Dueñas MD CBC with Auto Differentialon 05-25-2024 Basophils (Bld) [#/Vol] 0.00 10*3/uL [facility] Basophils/100 WBC (Bld) 0 % 0 - 2 % [facility] Eosinophils (Bld) [#/Vol] 0.00 10*3/uL [facility] Eosinophils/100 WBC (Bld) 0 % Low 1 - 4 % [facility] Erythrocyte distribution width (RBC) [Ratio] 12.2 % 11.8 - 14.4 % [facility] Hematocrit (Bld) [Volume fraction] 33.8 % Low 40.7 - 50.3 % [facility] Hemoglobin (Bld) [Mass/Vol] 11.0 g/dL Low 13.0 - 17.0 g/dL [facility] Immature granulocytes (Bld) [#/Vol] 0.00 10*3/uL [facility] Immature granulocytes/100 WBC (Bld) 0 % 0 [facility] Interpretation and review of laboratory results Abnormal [facility] Lymphocytes/100 WBC (Bld) 8 % Low 24 - 44 % [facility] Lymphocytes/100 WBC (Bld) 0.55 % Low [facility] MCH (RBC) [Entitic mass] 28.0 pg 25.2 - 33.5 pg [facility] MCHC (RBC) [Mass/Vol] 32.5 g/dL 28.4 - 34.8 g/dL [facility] MCV (RBC) [Entitic vol] 86.0 fL 82.6 - 102.9 fL [facility] Monocytes/100 WBC (Bld) 2 % 1 - 7 % B ON [facility] Monocytes/100 WBC (Bld) 0.14 % [facility] Morphology Gerardo (Bld) [Interp] Normal [facility] Neutrophils/100 WBC (Bld) 90 % High 36 - 66 % [facility] Nucleated RBC/100 WBC (Bld) [Ratio] 0.0 % 0.0 per 100 WBC [facility] Platelet mean volume (Bld) [Entitic vol] 10.2 fL 8.1 - 13.5 fL [facility] Platelets (Bld) [#/Vol] 235 10*3/uL [facility] RBC (Bld) [#/Vol] 3.93 10*6/uL Low 4.21 - 5.77 m/uL [facility] Segmented neutrophils/100 WBC (Bld) 6.21 % [facility] WBC other (Bld) [#/Vol] 6.9 B ON [facility] CBC with Diffon 05-25-2024 Abs. Basophil 0.00 k/uL Normal 0.0-0.2 [facility] Comment on above: Performed By: #### C DP, CMPX ####[facility] [address] [place] [id number] [facility] Director: Kelechi Dueñas MD Abs.Imm.Granulocyte 0.00 k/uL Normal 0.00-0.30 [facility] Comment on above: Performed By: #### C DP, CMPX ####[place], [place] [address])[phone] Director: Kelechi Dueñas MD Abs.Neutrophil (Seg) 6.21 k/uL Normal 1.8-7.7 [facility] Comment on above: Performed By: #### C DP, CMPX ####[place], [place] [address])[phone] Director: Kelechi Dueñas MD Basophils/100 WBC (Bld) 0 % Normal 0-[address] [facility] Comment on above: Performed By: #### C DP, CMPX ####[place], [place] [address])[phone] Director: Kelechi Dueñas MD Eosinophils (Bld) [#/Vol] 0.00 10*3/uL Normal 0.0-0.4 [facility] Comment on above: Performed By: #### C DP, CMPX ####[place], [place] [address])[phone] Director: Kelechi Dueñas MD Eosinophils/100 WBC (Bld) 0 % Low 1-4 [facility] Comment on above: Performed By: #### C DP, CMPX ####[place], [place] [address])[phone] Director: Kelechi Dueñas MD Immature granulocytes/100 WBC (Bld) 0 % Normal 0 [facility] Comment on above: Performed By: #### C DP, CMPX ####[place], [place] [address])[phone] Director: Kelechi Dueñas MD Lymphocytes (Bld) [#/Vol] 0.55 10*3/uL Low 1.0-4.8 [facility] Comment on above: Performed By: #### C DP, CMPX ####[facility] [address] [place], [place] [phone] Director: Kelechi Dueñas MD Lymphocytes/100 WBC (Bld) 8 % Low 24-44 [facility] Comment on above: Performed By: #### C DP, CMPX ####[address] [id number])[phone] Director: Kelechi Dueñas MD Monocytes (Bld) [#/Vol] 0.14 10*3/uL Normal 0.1-0.8 [facility] Comment on above: Performed By: #### C DP, CMPX ####[address] [id number])[phone] Director: Kelechi Dueñas MD Monocytes/100 WBC (Bld) 2 % Normal 1-7 [facility] Comment on above: Performed By: #### C DP, CMPX ####[address] [id number])[phone] Director: Kelechi Dueñas MD Morphology Gerardo (Bld) [Interp] Normal Normal [facility] Comment on above: Performed By: #### C DP, CMPX ####[address] [id number])[phone] Director: Kelechi Dueñas MD Neutrophil (Seg) 90 % High 36-66 [facility] Comment on above: Performed By: #### C DP, CMPX ####[facility] [address] [place] [address] [id number])[phone] Director: Kelechi Dueñas MD Erythrocyte distribution width (RBC) [Ratio] 12.2 % Normal 11.8-14.4 [facility] Comment on above: Performed By: #### C DP, CMPX ####[address] [id number])[phone] Director: Kelechi Dueñas MD Hematocrit (Bld) [Volume fraction] 33.8 % Low 40.7-50.3 [facility] Comment on above: Performed By: #### C DP, CMPX ####[address] [id number])[phone] Director: Kelechi Dueñas MD Hemoglobin (Bld) [Mass/Vol] 11.0 g/dL Low 13.0-17.0 [facility] Comment on above: Performed By: #### C DP, CMPX ####[address] [id number])[phone] Director: Kelechi Dueñas MD MCH (RBC) [Entitic mass] 28.0 pg Normal 25.2-33.5 [facility] Comment on above: Performed By: #### C DP, CMPX ####[place], [place] [address])[phone] Director: Kelechi Dueñas MD MCHC (RBC) [Mass/Vol] 32.5 g/dL Normal 28.4-34.8 [facility] Comment on above: Performed By: #### C DP, CMPX ####[place], [place] [phone] Director: Kelechi Dueñas MD MCV (RBC) [Entitic vol] 86.0 fL Normal 82.6-102.[address] [facility] Comment on above: Performed By: #### C DP, CMPX ####[address] [phone])[phone] Director: Kelechi Dueñas MD NRBC Automated 0.0 per 100 WBC Normal 0.0 [facility] Comment on above: Performed By: #### C DP, CMPX ####[address] [address] Lab Director: Kelechi Dueñas MD Platelet mean volume (Bld) [Entitic vol] 10.2 fL Normal 8.1-13.5 [facility] Comment on above: Performed By: #### C DP, CMPX ####[facility] [address] [place] [address] Lab Director: Kelechi Dueñas MD Platelets (Bld) [#/Vol] 235 10*3/uL Normal 138-453 [facility] Comment on above: Performed By: #### C DP, CMPX ####[facility] [address] [place], [place] [id number])[phone] Director: Kelechi Dueñas MD RBC (Bld) [#/Vol] 3.93 10*6/uL Low 4.21-5.77 [facility] Comment on above: Performed By: #### C DP, CMPX ####[place] [address] [place], [place] [phone])[phone] Director: Kelechi Dueñas MD WBC (Bld) [#/Vol] 6.9 10*3/uL Normal 3.5-11.3 [facility] Comment on above: Performed By: #### C DP, CMPX ####[address] [phone])[phone] Director: Kelechi Dueñas MD CT LUMBAR SPINE [...] bony foraminal narrowing at L5-S1. Interpreted by: Samir Chavez MD Signed by: Samir Chavez MD 05/25/24 Final result Normal [facility] CT Lumbar spine WO contrasto n 05-25-2024 MHPN RIS CONSOLIDATED PN RIS CONSOLIDATED [facility] Radiology Study observation (narrative) [facility] Comp Metabolic Pr/rfx MGon 0 05-25-2024 Albumin [Mass/Vol] 3.3 g/dL Low 3.5-5.2 [facility] Comment on above: Performed By: #### C DP, CMPX ####[address] [address] Lab Director: Kelechi Dueñas MD Albumin/Glob Ratio 1.0 Normal 1.0-2.5 [facility] Comment on above: Performed By: #### C DP, CMPX ####[facility] [address] [place] [id number] Lab Director: Kelechi Dueñas MD Alkaline Phos 94 U/L Normal 40-129 [facility] Comment on above: Performed By: #### C DP, CMPX ####[facility] [address] [place] [address] [id number] Lab Director: Kelechi Dueñas MD ALT [Catalytic activity/Vol] 22 U/L Normal 10-50 [facility] Comment on above: Performed By: #### C DP, CMPX ####[facility] [address] [place] [address] [phone] Director: Kelechi Dueñas MD Anion gap [Moles/Vol] 13 mmol/L Normal 9-16 [facility] Comment on above: Performed By: #### C DP, CMPX ####[facility] Yxyfkiiqczow8[address] [place], [place] [id number])[phone] Director: Kelechi Dueñas MD AST [Catalytic activity/Vol] 26 U/L Normal 10-50 [facility] Comment on above: Performed By: #### C DP, CMPX ####[facility] Tgncuorgfqcs1180 [place], [place] [id number])[phone] Director: Kelechi Dueñas MD Bilirubin [Mass/Vol] 0.4 mg/dL Normal 0.00-1.20 [facility] Comment on above: Performed By: #### C DP, CMPX ####[facility] Tyntjtctrryc3248 [place], [place] [address])[phone] Director: Kelechi Dueñas MD Calcium [Mass/Vol] 8.8 mg/dL Normal 8.6-10.4 [facility] Comment on above: Performed By: #### C DP, CMPX ####[facility] Qmjsconzqdmv0392 [place], [place] [phone])[phone] Director: Kelechi Dueñas MD Chloride [Moles/Vol] 105 mmol/L Normal 98-107 [facility] Comment on above: Performed By: #### C DP, CMPX ####[facility] Typogfixakfz0895 [place], [place] [id number])[phone] Director: Kelechi Dueñas MD CO2 [Moles/Vol] 17 mmol/L Low 20-31 [facility] Comment on above: Performed By: #### C DP, CMPX ####[facility] Tndkwvikymdp1062 [place], [place] [id number])[phone] Director: Kelechi Dueñas MD Creatinine [Mass/Vol] 2.6 mg/dL High 0.70-1.20 [facility] Comment on above: Performed By: #### C DP, CMPX ####[facility] [address] [place] [address])[phone] Director: Kelechi Dueñas MD GFR/1.73 sq M.predicted among non-blacks MDRD (S/P/Bld) [Vol rate/Area] 26 mL/min/{1.73_m2} Low >60 [facility] Comment on above: Result Comment: These results [...] secretion. Performed By: #### C DP, CMPX ####[facility] [address] [place] [address])[phone] Director: Kelechi Dueñas MD Glucose [Mass/Vol] 388 mg/dL High 74-99 [facility] Comment on above: Performed By: #### C DP, CMPX ####[facility] [address] [place] [address])[phone] Director: Kelechi Dueñas MD Potassium [Moles/Vol] 4.2 mmol/L Normal 3.7-5.3 [facility] Comment on above: Performed By: #### C DP, CMPX ####[facility] Cpdthsmuapom8514 [place], [place] [id number])[phone] Director: Kelechi Dueñas MD Protein [Mass/Vol] 6.4 g/dL Low 6.6-8.7 [facility] Comment on above: Performed By: #### C DP, CMPX ####[facility] [address]17[address] [place] [address] Lab Director: Kelechi Dueñas MD Sodium [Moles/Vol] 135 mmol/L Low 136-145 [facility] Comment on above: Performed By: #### C DP, CMPX ####[facility] Ez[address]vfnzeapp38[address] [place], [place] [phone] lab Director: Kelechi Dueñas MD Urea nitrogen [Mass/Vol] 60 mg/dL High 8-23 [facility] Comment on above: Performed By: #### C DP, CMPX ####[facility] V[address]qgops[address]tg4359 [place], [place] [id number] lab Director: Kelechi Dueñas MD Comprehensive Metabolic Pane l w/ Reflex to MGon 05-25-2024 Albumin [Mass/Vol] 3.3 g/dL Low 3.5 - 5.2 g/dL [facility] Albumin/Globulin [Mass ratio] 1.0 {ratio} 1.0 - 2.5 [facility] ALP [Catalytic activity/Vol] 94 U/L 40 - 129 U/L [facility] ALT [Catalytic activity/Vol] 22 U/L 10 - 50 U/L [facility] Anion gap [Moles/Vol] 13 mmol/L 9 - 16 mmol/L [facility] AST [Catalytic activity/Vol] 26 U/L 10 - 50 U/L [facility] Bilirubin [Mass/Vol] 0.4 mg/dL 0.00 - 1.20 mg/dL [facility] Calcium [Mass/Vol] 8.8 mg/dL 8.6 - 10. 4 mg/dL [facility] Chloride [Moles/Vol] 105 mmol/L 98 - 10 7 mmol/L [facility] CO2 [Moles/Vol] 17 mmol/L Low 20 - 31 mmol/L [facility] Creatinine [Mass/Vol] 2.6 mg/dL High 0.70 - 1.20 mg/dL [facility] Est, Glom Filt Rate 26 Low - [facility] Glucose [Mass/Vol] 388 mg/dL High 74 - 99 mg/dL [facility] Interpretation and review of laboratory results Abnormal [facility] Potassium [Moles/Vol] 4.2 mmol/L 3.7 - 5.3 mmol/L [facility] Protein [Mass/Vol] 6.4 g/dL Low 6.6 - 8.7 g/dL [facility] Sodium [Moles/Vol] 135 mmol/L Low 136 - 145 mmol/L [facility] Urea nitrogen [Mass/Vol] 60 mg/dL High 8 - 23 mg/dL [facility] Glucose,Whole Bloodon 2023 Glucose [Mass/Vol] 232 mg/dL High 75-110 [facility] Glucose [Mass/Vol] 295 mg/dL High 75-110 [facility] Glucose [Mass/Vol] 386 mg/dL High 75-110 [facility] Glucose [Mass/Vol] 376 mg/dL High 75-110 [facility] POC Glucose Fingerstickon Glucose [Mass/Vol] 232 mg/dL High 75 - 110 mg/dL [facility] Interpretation and review of laboratory results Abnormal [facility] Glucose [Mass/Vol] 295 mg/dL High 75 - 110 mg/dL [facility] Interpretation and review of laboratory results Abnormal [facility] Glucose [Mass/Vol] 386 mg/dL High 75 - 110 mg/dL [facility] Interpretation and review of laboratory results Abnormal [facility] Glucose [Mass/Vol] 376 mg/dL High 75 - 110 mg/dL [facility] Interpretation and review of laboratory results Abnormal [facility] CBC with Auto Differentialon 05-24-2024 Basophils (Bld) [#/Vol] 0.04 10*3/uL [facility] Basophils/100 WBC (Bld) 0 % 0 - 2 % B [facility] Eosinophils (Bld) [#/Vol] 0.11 10*3/uL [facility] Eosinophils/100 WBC (Bld) 1 % 1 - 4 % [facility] Erythrocyte distribution width (RBC) [Ratio] 12.5 % 11.8 - 14.4 % [facility] Hematocrit (Bld) [Volume fraction] 33.3 % Low 40.7 - 50.3 % [facility] Hemoglobin (Bld) [Mass/Vol] 10.8 g/dL Low 13.0 - 17.0 g/dL [facility] Immature granulocytes (Bld) [#/Vol] 0.03 10*3/uL [facility] Immature granulocytes/100 WBC (Bld) 0 % 0 [facility] Interpretation and review of laboratory results Abnormal [facility] Lymphocytes/100 WBC (Bld) 12 % Low 24 - 43 % [facility] Lymphocytes/100 WBC (Bld) 1.25 % [facility] MCH (RBC) [Entitic mass] 28.1 pg 25.2 - 33.5 pg [facility] MCHC (RBC) [Mass/Vol] 32.4 g/dL 28.4 - 34.8 g/dL [facility] MCV (RBC) [Entitic vol] 86.7 fL 82.6 - 102.9 fL [facility] Monocytes/100 WBC (Bld) 12 % 3 - 12 % [facility] Monocytes/100 WBC (Bld) 1.22 % High [facility] Neutrophils/100 WBC (Bld) 75 % High 36 - 65 % [facility] Nucleated RBC/100 WBC (Bld) [Ratio] 0.0 % 0.0 per 100 WBC [facility] Platelet mean volume (Bld) [Entitic vol] 10.2 fL 8.1 - 13.5 fL [facility] Platelets (Bld) [#/Vol] 230 10*3/uL [facility] RBC (Bld) [#/Vol] 3.84 10*6/uL Low 4.21 - 5.77 m/uL [facility] Segmented neutrophils/100 WBC (Bld) 7.72 % [facility] WBC other (Bld) [#/Vol] 10.4 [facility] CBC with Diffon 05-24-2024 Abs. Basophil 0.04 k/uL Normal 0.00-0.20 [facility] Comment on above: Performed By: #### C MPX, CDP, LACTIC ####[facility] [address] [place] [address])[phone] Director: Kelechi Deuñas MD Abs.Imm.Granulocyte 0.03 k/uL Normal 0.00-0.30 [facility] Comment on above: Performed By: #### C MPX, CDP, LACTIC ####[place], [place] [address])[phone] Director: Kelechi Dueñas MD Abs.Neutrophil (Seg) 7.72 k/uL Normal 1.50-8.10 [facility] Comment on above: Performed By: #### C MPX, CDP, LACTIC ####[place], [place] [address])[phone] Director: Kelechi Dueñas MD Basophils/100 WBC (Bld) 0 % Normal 0-[address] [facility] Comment on above: Performed By: #### C MPX, CDP, LACTIC ####[place], [place] [address])[phone] Director: Kelechi Dueñas MD Eosinophils (Bld) [#/Vol] 0.11 10*3/uL Normal 0.00-0.44 [facility] Comment on above: Performed By: #### C MPX, CDP, LACTIC ####[facility] [address] [place], [place] [address])[phone] Director: Kelechi Dueñas MD Eosinophils/100 WBC (Bld) 1 % Normal 1-4 [facility] Comment on above: Performed By: #### C MPX, CDP, LACTIC ####[facility] [address] [place], [place] [address])[phone] Director: Kelechi Dueñas MD Erythrocyte distribution width (RBC) [Ratio] 12.5 % Normal 11.8-14.4 [facility] Comment on above: Performed By: #### C MPX, CDP, LACTIC ####[facility] [address]csffjkx12[address] [place], [place] [address])[phone] Director: Kelechi Dueñas MD Hematocrit (Bld) [Volume fraction] 33.3 % Low 40.7-50.3 [facility] Comment on above: Performed By: #### C MPX, CDP, LACTIC ####[facility] [address]tr[address]vncmva13[address] [place], [place] [address])[phone] Director: Kelechi Dueñas MD Hemoglobin (Bld) [Mass/Vol] 10.8 g/dL Low 13.0-17.0 [facility] Comment on above: Performed By: #### C MPX, CDP, LACTIC ####[facility] Jrbozfslaone5973 [place], [place] [address])[phone] Director: Kelechi Dueñas MD Immature granulocytes/100 WBC (Bld) 0 % Normal 0 [facility] Comment on above: Performed By: #### C MPX, CDP, LACTIC ####[facility] [address]mf7186 [place], [place] [address])[phone] Director: Kelechi Dueñas MD Lymphocytes (Bld) [#/Vol] 1.25 10*3/uL Normal 1.10-3.70 [facility] Comment on above: Performed By: #### C MPX, CDP, LACTIC ####[facility] Ftezqzxuygzo4620 [place], [place] [address])[phone] Director: Kelechi Dueñas MD Lymphocytes/100 WBC (Bld) 12 % Low 24-43 [facility] Comment on above: Performed By: #### C MPX, CDP, LACTIC ####[facility] Q[address]msqscrjws[address] [place], [place] [address])[phone] Director: Kelechi Dueñas MD MCH (RBC) [Entitic mass] 28.1 pg Normal 25.2-33.5 [facility] Comment on above: Performed By: #### C MPX, CDP, LACTIC ####[facility] Txu[address]ayf[address]ugw[address]2 [place], [place] [id number])[phone] Director: Kelechi Dueñas MD MCHC (RBC) [Mass/Vol] 32.4 g/dL Normal 28.4-34.8 [facility] Comment on above: Performed By: #### C MPX, CDP, LACTIC ####[facility] [address] [place] [address] [id number])[phone] Director: Kelechi Dueñas MD MCV (RBC) [Entitic vol] 86.7 fL Normal 82.6-102.[address] [facility] Comment on above: Performed By: #### C MPX, CDP, LACTIC ####[facility] [address]fl[address]32[address] [place], [place] [id number])[phone] Director: Kelechi Dueñas MD Monocytes (Bld) [#/Vol] 1.22 10*3/uL High 0.10-1.20 [facility] Comment on above: Performed By: #### C MPX, CDP, LACTIC ####[facility] [address] [place] [address] [id number])[phone] Director: Kelechi Dueñas MD Monocytes/100 WBC (Bld) 12 % Normal 3-[address] [facility] Comment on above: Performed By: #### C MPX, CDP, LACTIC ####[facility] [address] [place] [address] [id number])[phone] Director: Kelechi Dueñas MD Neutrophil (Seg) 75 % High 36-65 [facility] Comment on above: Performed By: #### C MPX, CDP, LACTIC ####[facility] [address]wt[address]te[address] [place], [place] [phone])[phone] Director: Kelechi Dueñas MD NRBC Automated 0.0 per 100 WBC Normal 0.0 [facility] Comment on above: Performed By: #### C MPX, CDP, LACTIC ####[facility] Rfrbmxptchxq0367 [place], [place] [id number])[phone] Director: Kelechi Dueñas MD Platelet mean volume (Bld) [Entitic vol] 10.2 fL Normal 8.1-13.5 [facility] Comment on above: Performed By: #### C MPX, CDP, LACTIC ####[facility] [address]csr[address] [place], [place] [phone])[phone] Director: Kelechi Dueñas MD Platelets (Bld) [#/Vol] 230 10*3/uL Normal 138-453 [facility] Comment on above: Performed By: #### C MPX, CDP, LACTIC ####[address] [id number])[phone] Director: Kelechi Dueñas MD RBC (Bld) [#/Vol] 3.84 10*6/uL Low 4.21-5.77 [facility] Comment on above: Performed By: #### C MPX, CDP, LACTIC ####[address] [id number])[phone] Director: Kelechi Dueñas MD WBC (Bld) [#/Vol] 10.4 10*3/uL Normal 3.5-11.3 [facility] Comment on above: Performed By: #### C MPX, CDP, LACTIC ####[address] [id number])[phone] Director: Kelechi Dueñas MD Comp Metabolic Pr/rfx MGon 0 - Albumin [Mass/Vol] 3.5 g/dL Normal 3.5-5.2 [facility] Comment on above: Performed By: #### C MPX, CDP, LACTIC ####[address] [id number])[phone] Director: Kelechi Dueñas MD Albumin/Glob Ratio 1.0 Normal 1.0-2.5 [facility] Comment on above: Performed By: #### C MPX, CDP, LACTIC ####[facility] [address]zz[address]gh[address] [place], [place] [phone])[phone] Director: Kelechi Dueñas MD Alkaline Phos 92 U/L Normal 40-129 [facility] Comment on above: Performed By: #### C MPX, CDP, LACTIC ####[facility] Leu[address]ntxxfr8885 [place], [place] [id number])[phone] Director: Kelechi Dueñas MD ALT [Catalytic activity/Vol] 12 U/L Normal 10-50 [facility] Comment on above: Performed By: #### C MPX, CDP, LACTIC ####[facility] [address]yjfocy4[address] [place], [place] [id number])[phone] Director: Kelechi Dueñas MD Anion gap [Moles/Vol] 9 mmol/L Normal 9-16 [facility] Comment on above: Performed By: #### C MPX, CDP, LACTIC ####[facility] Dyvdshjmbtxx2329 [place], [place] [id number])[phone] Director: Kelechi Dueñas MD AST [Catalytic activity/Vol] 18 U/L Normal 10-50 [facility] Comment on above: Performed By: #### C MPX, CDP, LACTIC ####[facility] Qsdwspbateoi2291 [place], [place] [phone])[phone] Director: Kelechi Dueñas MD Bilirubin [Mass/Vol] 0.5 mg/dL Normal 0.00-1.20 [facility] Comment on above: Performed By: #### C MPX, CDP, LACTIC ####[facility] Swdmxgdehvbj2952 [place], [place] [phone])[phone] Director: Kelechi Dueñas MD Calcium [Mass/Vol] 9.1 mg/dL Normal 8.6-10.4 [facility] Comment on above: Performed By: #### C MPX, CDP, LACTIC ####[facility] [address]adnvqg0704 [place] [address] Lab Director: Kelechi Dueñas MD Chloride [Moles/Vol] 108 mmol/L High 98-107 [facility] Comment on above: Performed By: #### C MPX, CDP, LACTIC ####[facility] [address]vo24[address] [place] [address] Lab Director: Kelechi Dueñas MD CO2 [Moles/Vol] 21 mmol/L Normal 20-31 [facility] Comment on above: Performed By: #### C MPX, CDP, LACTIC ####[facility] [address]wwmj3325 [place] [address] Lab Director: Kelechi Dueñas MD Creatinine [Mass/Vol] 2.4 mg/dL High 0.70-1.20 [facility] Comment on above: Performed By: #### C MPX, CDP, LACTIC ####[facility] [address] [place] [address] Lab Director: Kelechi Dueñas MD GFR/1.73 sq M.predicted among non-blacks MDRD (S/P/Bld) [Vol rate/Area] 28 mL/min/{1.73_m2} Low >60 [facility] Comment on above: Result Comment: These results [...] Performed By: #### C MPX, CDP, LACTIC ####[facility] [address]mr[address] [place] [address] Lab Director: Kelechi Dueñas MD Glucose [Mass/Vol] 97 mg/dL Normal 74-99 [facility] Comment on above: Performed By: #### C MPX, CDP, LACTIC ####[facility] [address]ml[address]mubp4[address] [place] [address] Lab Director: Kelechi Dueñas MD Potassium [Moles/Vol] 4.7 mmol/L Normal 3.7-5.3 [facility] Comment on above: Performed By: #### C MPX, CDP, LACTIC ####[facility] [address] [place] [address] Lab Director: Kelechi Dueñas MD Protein [Mass/Vol] 6.3 g/dL Low 6.6-8.7 [facility] Comment on above: Performed By: #### C MPX, CDP, LACTIC ####[facility] [address]plmr4[address] [place] [address] Lab Director: Kelechi Dueñas MD Sodium [Moles/Vol] 138 mmol/L Normal 136-145 [facility] Comment on above: Performed By: #### C MPX, CDP, LACTIC ####[facility] Y[address]phbxh01[address] [place] [address] Lab Director: Kelechi Dueñas MD Urea nitrogen [Mass/Vol] 48 mg/dL High 8-23 [facility] Comment on above: Performed By: #### C MPX, CDP, LACTIC ####[facility] X[address]ithife8801 [place] [address] Lab Director: Kelechi Dueñas MD Comprehensive Metabolic Pane l w/ Reflex to MGon 05-24-2024 Albumin [Mass/Vol] 3.5 g/dL 3.5 - 5.2 g/dL [facility] Albumin/Globulin [Mass ratio] 1.0 {ratio} 1.0 - 2.5 [facility] ALP [Catalytic activity/Vol] 92 U/L 40 - 129 U/L [facility] ALT [Catalytic activity/Vol] 12 U/L 10 - 50 U/L [facility] Anion gap [Moles/Vol] 9 mmol/L 9 - 16 mmol/L [facility] AST [Catalytic activity/Vol] 18 U/L 10 - 50 U/L [facility] Bilirubin [Mass/Vol] 0.5 mg/dL 0.00 - 1.20 mg/dL [facility] Calcium [Mass/Vol] 9.1 mg/dL 8.6 - 10. 4 mg/dL [facility] Chloride [Moles/Vol] 108 mmol/L High 98 - 10 7 mmol/L [facility] CO2 [Moles/Vol] 21 mmol/L 20 - 31 mmol/L [facility] Creatinine [Mass/Vol] 2.4 mg/dL High 0.70 - 1.20 mg/dL [facility] Est, Glom Filt Rate 28 Low - [facility] Glucose [Mass/Vol] 97 mg/dL 74 - 99 mg/dL [facility] Interpretation and review of laboratory results Abnormal [facility] Potassium [Moles/Vol] 4.7 mmol/L 3.7 - 5.3 mmol/L [facility] Protein [Mass/Vol] 6.3 g/dL Low 6.6 - 8.7 g/dL [facility] Sodium [Moles/Vol] 138 mmol/L 136 - 145 mmol/L [facility] Urea nitrogen [Mass/Vol] 48 mg/dL High 8 - 23 mg/dL [facility] Cult,Urineon 05-24-2024 Cult,Urine Specimen Description .CLEAN CATCH URINE Special Requests Site: Urine Culture NO GROWTH Report Status FINAL 05/24/2024 Normal [facility] Comment on above: Performed By: #### U ####[facility] [address] [place] [address] lab Director: Kelechi Dueñas MD Culture, Urineon 05-24-2024 Microorganism identified Cx Nom (Unsp spec) NO GROWTH [facility] Service comment (Unsp spec) [Interp] Site: Urine [facility] Specimen Description .CLEAN CATCH URINE [facility] Glucose,Whole Bloodon 2023 Glucose [Mass/Vol] 238 mg/dL High 75-110 [facility] Glucose [Mass/Vol] 192 mg/dL High 75-110 [facility] Glucose [Mass/Vol] 103 mg/dL Normal 75-110 [facility] Glucose [Mass/Vol] 101 mg/dL Normal 75-110 [facility] Lactic Acidon 05-24-2024 Lactic Acid, Whole Blood 0.8 mmol/L 0.7 - 2.1 mmol/L [facility] Lactic Acid,Whole Bl 0.8 mmol/L Normal 0.7-2.1 [facility] Comment on above: Performed By: #### C MPX, CDP, LACTIC ####[facility] [address] [place] [address] lab Director: Kelechi Dueñas MD MR Brain WO contraston 05-24 [facility] RIS CONSOLIDATED [facility] RIS CONSOLIDATED [facility] MR Cervical spine WO contras ton 05-24-2024 [facility] RIS CONSOLIDATED [facility] Radiology Study observation (narrative) [facility] MR Cervical spine WO contras tOrdered By: Hema Chavez on 05-24-2024 [facility] Work Phone: MR Lumbar spine WO contrasto n 05-24-2024 [facility] RIS CONSOLIDATED [facility] RIS [facility] MR Lumbar spine WO contrastO rdered By: Samir Chavez on 05-24-2024 [facility] Work Phone: MRI BRAIN WO CONTRASTon 05-06 [...] Samir Chavez MD 05/24/24 Final result Normal [facility] MRI CERVICAL SPINE WO CONTRA STon 05-24-2024 [...] Hema Chavez MD 05/24/24 Final result Normal [facility] MRI LUMBAR SPINE WO CONTRAST on 05-24-2024 [...] narrowing of the lateral recesses. There is fced-eg-ebiwgeff left and moderate right foraminal narrowing. L4-L5: [...] at L4-5 without complication. Interpreted by: Samir Chavez MD Signed by: Samir Chavez MD 05/24/24 Final result Normal [facility] No Panel Informationon 05-24 Radiology Study observation (narrative) [facility] POC Glucose Fingerstickon Glucose [Mass/Vol] 238 mg/dL High 75 - 110 mg/dL [facility] Interpretation and review of laboratory results Abnormal [facility] Glucose [Mass/Vol] 192 mg/dL High 75 - 110 mg/dL [facility] Interpretation and review of laboratory results Abnormal [facility] Glucose [Mass/Vol] 103 mg/dL 75 - 110 mg/dL [facility] Glucose [Mass/Vol] 101 mg/dL 75 - 110 mg/dL [facility] Vascular duplex lower extrem ity arteries righton 05-24-2024 Body surface area Derived from formula 1.82 m2 [facility] Right SHAYLA mid PSV 46.2 cm/s [facility] Right DIRECTOR OF COMMUNITY SERVICES prox PSV 134.0 cm/s [facility] Right DIRECTOR OF COMMUNITY SERVICES prox PSV 117.0 cm/s [facility] Right DIRECTOR OF COMMUNITY SERVICES dany ratio 2.0 [facility] Right EIA dist PSV 68.0 cm/s [facility] Right peronal mid PSV 71.9 cm/s [facility] Right Pop A dist PSV 106.0 cm/s [facility] Right Pop A prox PSV 105.0 cm/s [facility] Right SALES & SERVICE ASSOCIATE mid PSV 90.1 cm/s [facility] Right SFA mid PSV 107.0 cm/s [facility] Right SFA mid dany ratio 0.9 [facility] Right SFA prox PSV 115[facility]0 cm/s [facility] Right SFA prox dany ratio 0.9 [facility] CV CPACS [facility] Radiology Study observation (narrative) [facility] Vascular duplex lower extrem ity venous rightOrdered By: Kenny Lindsay on 05-24-2024 Body surface area Derived from formula 1.82 m2 [facility] Work Phone: [facility] Work Phone: Vascular duplex lower extrem ity venous righton 05-24-2024 [facility] CV CPACS Radiology Study observation (narrative) [facility] XR SPINE ENTIRE (2-3 VIEWS)o [...] dextroscoliosis of the lumbar spine with a Arza angle approximately 8 degrees. Normal alignment is [...] Ascencion Dickson MD 05/24/24 Final result Normal [facility] XR Spine 2 Viewson [facility] Radiology Study observation (narrative) [facility] XR Spine 2 ViewsOrdered By: Ascencion Dickson on 05-24-2024 [facility] Work Phone: C-Reactive Proteinon 024 CRP High sensitivity method [Mass/Vol] 124.0 mg/L High 0.0 - 5.0 mg/L [facility] Interpretation and review of laboratory results Abnormal [facility] CRP [Mass/Vol] 124.0 mg/L High 0.0-5.0 [facility] Comment on above: Performed By: #### S ED, CDP, CRP, CP ####[facility] [address] [place] [address] lab Director: Kelechi Dueñas MD CBC with Auto Differentialon 05-23-2024 Basophils (Bld) [#/Vol] 0.00 10*3/uL [facility] Basophils/100 WBC (Bld) 0 % 0 - 2 % B [facility] Eosinophils (Bld) [#/Vol] 0.13 10*3/uL [facility] Eosinophils/100 WBC (Bld) 1 % 1 - 4 % [facility] Erythrocyte distribution width (RBC) [Ratio] 12.6 % 11.8 - 14.4 % [facility] Hematocrit (Bld) [Volume fraction] 33.8 % Low 40.7 - 50.3 % [facility] Hemoglobin (Bld) [Mass/Vol] 11.0 g/dL Low 13.0 - 17.0 g/dL [facility] Immature granulocytes (Bld) [#/Vol] 0.00 10*3/uL [facility] Immature granulocytes/100 WBC (Bld) 0 % 0 [facility] Interpretation and review of laboratory results Abnormal [facility] Lymphocytes/100 WBC (Bld) 10 % Low 24 - 43 % [facility] Lymphocytes/100 WBC (Bld) 1.25 % [facility] MCH (RBC) [Entitic mass] 28.1 pg 25.2 - 33.5 pg [facility] MCHC (RBC) [Mass/Vol] 32.5 g/dL 28.4 - 34.8 g/dL [facility] MCV (RBC) [Entitic vol] 86.2 fL 82.6 - 102.9 fL [facility] Monocytes/100 WBC (Bld) 13 % High 3 - 12 % B [facility] Monocytes/100 WBC (Bld) 1.63 % High B [facility] Morphology Gerardo (Bld) [Interp] Normal [facility] Neutrophils/100 WBC (Bld) 76 % High 36 - 65 % [facility] Nucleated RBC/100 WBC (Bld) [Ratio] 0.0 % 0.0 per 100 WBC [facility] Platelet mean volume (Bld) [Entitic vol] 10.0 fL 8.1 - 13.5 fL [facility] Platelets (Bld) [#/Vol] 220 10*3/uL [facility] RBC (Bld) [#/Vol] 3.92 10*6/uL Low 4.21 - 5.77 m/uL [facility] Segmented neutrophils/100 WBC (Bld) 9.49 % High [facility] WBC other (Bld) [#/Vol] 12.5 High B [facility] CBC with Diffon 05-23-2024 Abs. Basophil 0.00 k/uL Normal 0.00-0.20 [facility] Comment on above: Performed By: #### S ED, CDP, CRP, CP ####[facility] [address] [place], [place] [id number] Lab Director: Kelechi Dueñas MD Abs.Imm.Granulocyte 0.00 k/uL Normal 0.00-0.30 [facility] Comment on above: Performed By: #### S ED, CDP, CRP, CP ####[facility] [address] [place], [place] [id number] Lab Director: Kelechi Dueñas MD Abs.Neutrophil (Seg) 9.49 k/uL High 1.50-8.10 [facility] Comment on above: Performed By: #### S ED, CDP, CRP, CP ####[address] [id number])[phone] Director: Kelechi Dueñas MD Basophils/100 WBC (Bld) 0 % Normal 0-2 [facility] Comment on above: Performed By: #### S ED, CDP, CRP, CP ####[address] [address])[phone] Director: Kelechi Dueñas MD Eosinophils (Bld) [#/Vol] 0.13 10*3/uL Normal 0.00-0.44 [facility] Comment on above: Performed By: #### S ED, CDP, CRP, CP ####[address] [address])[phone] Director: Kelechi Dueñas MD Eosinophils/100 WBC (Bld) 1 % Normal 1-4 [facility] Comment on above: Performed By: #### S ED, CDP, CRP, CP ####[address] [address])[phone] Director: Kelechi Dueñas MD Immature granulocytes/100 WBC (Bld) 0 % Normal 0 [facility] Comment on above: Performed By: #### S ED, CDP, CRP, CP ####[facility] [address] [place] [address])[phone] Director: Kelechi Dueñas MD Lymphocytes (Bld) [#/Vol] 1.25 10*3/uL Normal 1.10-3.70 [facility] Comment on above: Performed By: #### S ED, CDP, CRP, CP ####[address] [id number])[phone] Director: Kelechi Dueñas MD Lymphocytes/100 WBC (Bld) 10 % Low 24-43 [facility] Comment on above: Performed By: #### S ED, CDP, CRP, CP ####[facility] [address] [place] [address] [phone])[phone] Director: Kelechi Dueñas MD Monocytes (Bld) [#/Vol] 1.63 10*3/uL High 0.10-1.20 [facility] Comment on above: Performed By: #### S ED, CDP, CRP, CP ####[facility] [address] [place] [address] [phone])[phone] Director: Kelechi Dueñas MD Monocytes/100 WBC (Bld) 13 % High 3-12 [facility] Comment on above: Performed By: #### S ED, CDP, CRP, CP ####[address] [address])[phone] Director: Kelechi Dueñas MD Morphology Gerardo (Bld) [Interp] Normal Normal [facility] Comment on above: Performed By: #### S ED, CDP, CRP, CP ####[address] [id number])[phone] Director: Kelechi Dueñas MD Neutrophil (Seg) 76 % High 36-65 [facility] Comment on above: Performed By: #### S ED, CDP, CRP, CP ####[facility] [address] [place], [place] [phone])[phone] Director: Kelechi Dueñas MD Erythrocyte distribution width (RBC) [Ratio] 12.6 % Normal 11.8-14.4 [facility] Comment on above: Performed By: #### S ED, CDP, CRP, CP ####[facility] [address] [place], [place] [phone])[phone] Director: Kelechi Dueñas MD Hematocrit (Bld) [Volume fraction] 33.8 % Low 40.7-50.3 [facility] Comment on above: Performed By: #### S ED, CDP, CRP, CP ####[facility] [address] [place] [address] Lab Director: Kelechi Dueñas MD Hemoglobin (Bld) [Mass/Vol] 11.0 g/dL Low 13.0-17.0 [facility] Comment on above: Performed By: #### S ED, CDP, CRP, CP ####[facility] [address] [place] [address] [phone])[phone] Director: Kelechi Dueñas MD MCH (RBC) [Entitic mass] 28.1 pg Normal 25.2-33.5 [facility] Comment on above: Performed By: #### S ED, CDP, CRP, CP ####[facility] [address] [place] [address])[phone] Director: Kelechi Dueñas MD MCHC (RBC) [Mass/Vol] 32.5 g/dL Normal 28.4-34.8 [facility] Comment on above: Performed By: #### S ED, CDP, CRP, CP ####[facility] [address] [place] [address])[phone] Director: Kelechi Dueñas MD MCV (RBC) [Entitic vol] 86.2 fL Normal 82.6-102.9 [facility] Comment on above: Performed By: #### S ED, CDP, CRP, CP ####[facility] [address] [place] [address] Lab Director: Kelechi Dueñas MD NRBC Automated 0.0 per 100 WBC Normal 0.0 [facility] Comment on above: Performed By: #### S ED, CDP, CRP, CP ####[facility] [address] [place] [address] Lab Director: Kelechi Dueñas MD Platelet mean volume (Bld) [Entitic vol] 10.0 fL Normal 8.1-13.5 [facility] Comment on above: Performed By: #### S ED, CDP, CRP, CP ####[facility] [address] [place], [place] [phone])[phone] Director: Kelechi Dueñas MD Platelets (Bld) [#/Vol] 220 10*3/uL Normal 138-453 [facility] Comment on above: Performed By: #### S ED, CDP, CRP, CP ####[facility] [address] [place], [place] [id number])[phone] Director: Kelechi Dueñas MD RBC (Bld) [#/Vol] 3.92 10*6/uL Low 4.21-5.77 [facility] Comment on above: Performed By: #### S ED, CDP, CRP, CP ####[facility] [address] [place], [place] [phone] Director: Kelechi Dueñas MD WBC (Bld) [#/Vol] 12.5 10*3/uL High 3.5-11.3 [facility] Comment on above: Performed By: #### S ED, CDP, CRP, CP ####[facility] [address] [place], [place] [phone])[phone] Director: Kelechi Dueñas MD [facility] 05-23-2024 CK [Catalytic activity/Vol] 31 U/L Low 39 - 308 U/L [facility] Interpretation and review of laboratory results Abnormal [facility] CK [Catalytic activity/Vol] 31 U/L Low 39 - 308 U/L [facility] Interpretation and review of laboratory results Abnormal [facility] Comp Metabolic Profon 2023 Albumin [Mass/Vol] 3.5 g/dL Normal 3.5-5.2 [facility] Comment on above: Performed By: #### S ED, CDP, CRP, CP ####[facility] [address] [place], [place] [id number])[phone] Director: Kelechi Dueñas MD Albumin/Glob Ratio 1.0 Normal 1.0-2.5 [facility] Comment on above: Performed By: #### S ED, CDP, CRP, CP ####[facility] [address] [place], [place] [id number])[phone] Director: Kelechi Dueñas MD Alkaline Phos 90 U/L Normal 40-129 [facility] Comment on above: Performed By: #### S ED, CDP, CRP, CP ####[facility] [address] [place], [place] [phone])[phone] Director: Kelechi Dueñas MD ALT [Catalytic activity/Vol] 15 U/L Normal 10-50 [facility] Comment on above: Performed By: #### S ED, CDP, CRP, CP ####[facility] [address] [place] [address] [id number])[phone] Director: Kelechi Dueñas MD Anion gap [Moles/Vol] 13 mmol/L Normal 9-16 [facility] Comment on above: Performed By: #### S ED, CDP, CRP, CP ####[facility] [address] [place], [place] [phone])[phone] Director: Kelechi Dueñas MD AST [Catalytic activity/Vol] 22 U/L Normal 10-50 [facility] Comment on above: Performed By: #### S ED, CDP, CRP, CP ####[facility] [address] [place], [place] [id number])[phone] Director: Kelechi Dueñas MD Bilirubin [Mass/Vol] 0.5 mg/dL Normal 0.00-1.20 [facility] Comment on above: Performed By: #### S ED, CDP, CRP, CP ####[facility] [address] [place], [place] [phone])[phone] Director: Kelechi Dueñas MD Calcium [Mass/Vol] 8.9 mg/dL Normal 8.6-10.4 [facility] Comment on above: Performed By: #### S ED, CDP, CRP, CP ####[facility] [address] [place] [address] Lab Director: Kelechi Dueñas MD Chloride [Moles/Vol] 105 mmol/L Normal 98-107 [facility] Comment on above: Performed By: #### S ED, CDP, CRP, CP ####[facility] [address] [place], [place] [phone] Director: Kelechi Dueñas MD CO2 [Moles/Vol] 17 mmol/L Low 20-31 [facility] Comment on above: Performed By: #### S ED, CDP, CRP, CP ####[facility] [address] [place], [place] [phone] Director: Kelechi Dueñas MD Creatinine [Mass/Vol] 2.5 mg/dL High 0.70-1.20 [facility] Comment on above: Performed By: #### S ED, CDP, CRP, CP ####[facility] [address] [place] [address] Lab Director: Kelechi Dueñas MD GFR/1.73 sq M.predicted among non-blacks MDRD (S/P/Bld) [Vol rate/Area] 26 mL/min/{1.73_m2} Low >60 [facility] Comment on above: Result Comment: These results [...] #### S ED, CDP, CRP, CP ####[facility] [address] [place], [place] [phone])[phone] Director: Kelechi Dueñas MD Glucose [Mass/Vol] 127 mg/dL High 74-99 [facility] Comment on above: Performed By: #### S ED, CDP, CRP, CP ####[facility] [address] [place] [address] Lab Director: Kelechi Dueñas MD Potassium [Moles/Vol] 3.9 mmol/L Normal 3.7-5.3 [facility] Comment on above: Performed By: #### S ED, CDP, CRP, CP ####[facility] [address] [place], [place] [phone] Director: Kelechi Dueñas MD Protein [Mass/Vol] 6.3 g/dL Low 6.6-8.7 [facility] Comment on above: Performed By: #### S ED, CDP, CRP, CP ####[facility] [address] [place] [address] Lab Director: Kelechi Dueñas MD Sodium [Moles/Vol] 135 mmol/L Low 136-145 [facility] Comment on above: Performed By: #### S ED, CDP, CRP, CP ####[facility] [address] [place], [place] [phone])[phone] Director: Kelechi Dueñas MD Urea nitrogen [Mass/Vol] 51 mg/dL High 8-23 [facility] Comment on above: Performed By: #### S ED, CDP, CRP, CP ####[facility] [address] [place], [place] [address])[phone] Director: Kelechi Dueñas MD Comprehensive Metabolic Pane [facility] 05-23-2024 Albumin [Mass/Vol] 3.5 g/dL 3.5 - 5.2 g/dL [facility] Albumin/Globulin [Mass ratio] 1.0 {ratio} 1.0 - 2.5 [facility] [employer] ALP [Catalytic activity/Vol] 90 U/L 40 - 129 U/L [facility] [employer] ALT [Catalytic activity/Vol] 15 U/L 10 - 50 U/L [facility] Anion gap [Moles/Vol] 13 mmol/L 9 - 16 mmol/L [facility] AST [Catalytic activity/Vol] 22 U/L 10 - 50 U/L [facility] Bilirubin [Mass/Vol] 0.5 mg/dL 0.00 - 1.20 mg/dL [facility] Calcium [Mass/Vol] 8.9 mg/dL 8.6 - 10. 4 mg/dL [facility] Chloride [Moles/Vol] 105 mmol/L 98 - 10 7 mmol/L [facility] CO2 [Moles/Vol] 17 mmol/L Low 20 - 31 mmol/L [facility] Creatinine [Mass/Vol] 2.5 mg/dL High 0.70 - 1.20 mg/dL [facility] Est, Glom Filt Rate 26 Low - [facility] Glucose [Mass/Vol] 127 mg/dL High 74 - 99 mg/dL [facility] Interpretation and review of laboratory results Abnormal [facility] Potassium [Moles/Vol] 3.9 mmol/L 3.7 - 5.3 mmol/L [facility] Protein [Mass/Vol] 6.3 g/dL Low 6.6 - 8.7 g/dL [facility] Sodium [Moles/Vol] 135 mmol/L Low 136 - 145 mmol/L [facility] Urea nitrogen [Mass/Vol] 51 mg/dL High 8 - 23 mg/dL [facility] Creatine Kinaseon 05-23-2024 CK [Catalytic activity/Vol] 31 U/L Low 39-308 [facility] Comment on above: Performed By: #### C K ####[facility] [address] [place], [place] 0473908 Lab Director: Kelechi Dueñas MD#### AALDO ####[address] [place] [address] Lab Director: Yanick Wilcox MD CK [Catalytic activity/Vol] 31 U/L Low 39-308 [facility] Comment on above: Performed By: #### C K, WALESKA ####[facility] [address] [place] [address] Lab Director: Kelechi Dueñas MD Myoglobinon 05-23-2024 Myoglobin [Mass/Vol] 65 ng/mL Normal 28-72 [facility] Comment on above: Performed By: #### C K, WALESKA ####[facility] [address] [place] [address] Lab Director: Kelechi Dueñas MD Myoglobin, Bloodon Myoglobin [Mass/Vol] 65 ng/mL 28 - 72 ng/mL [facility] [employer] No Panel Informationon 05-23 [facility] Sedimentation Rateon 024 ESR Photometric method (Bld) [Velocity] 49 High [facility] Interpretation and review of laboratory results Abnormal [facility] Sedimentation Rate 49 mm/Hr High 0-20 [facility] Comment on above: Performed By: #### S ED, CDP, CRP, CP ####[facility] [address] [place] [address])[phone] Director: Kelechi Dueñas MD Urinalysis w/ Microon 2023 Bacteria None Normal NONE [facility] Comment on above: Performed By: #### U AMIC ####[facility] [address] [place] [address] Lab Director: Kelechi Dueñas MD Bilirubin, SemiQt,Ur Negative Normal NEG [facility] Comment on above: Performed By: #### U AMIC ####[facility] [address]fr[address]dxsywz[address] [place] [address] Lab Director: Kelechi Dueñas MD Blood, Urine Negative Normal NEG [facility] Comment on above: Performed By: #### U AMIC ####[facility] [address] [place] [address] Lab Director: Kelechi Dueñas MD Casts 2 TO 5 HYALINE Normal 0-8 [facility] Comment on above: Result Comment: Refe rence range defined for non-centrifuged specimen. Performed By: #### U AMIC ####[address] [id number])[phone] Director: Kelechi Dueñas MD Clarity (U) Clear Normal CLEAR [facility] Comment on above: Performed By: #### U AMIC ####[address] [id number])[phone] Director: Kelechi Dueñas MD Color (U) Yellow Normal YEL [facility] Comment on above: Performed By: #### U AMIC ####[address] [id number])[phone] Director: Kelechi Dueñas MD Epithelial cells LM Ql (Urine sed) 0 TO 2 Normal 0-5 [facility] Comment on above: Performed By: #### U AMIC ####[address] [id number])[phone] Director: Kelechi Dueñas MD Glucose Ql (U) Negative Normal NEG [facility] Comment on above: Performed By: #### U AMIC ####[address] [id number])[phone] Director: Kelechi Dueñas MD Ketones Ql (U) TRACE Abnormal NEG [facility] Comment on above: Performed By: #### U AMIC ####[address] [id number])[phone] Director: Kelechi Dueñas MD Leukocyte esterase Test strip Ql (U) Negative Normal NEG [facility] Comment on above: Performed By: #### U AMIC ####[address] [id number])[phone] Director: Kelechi Dueñas MD Nitrite,Ur Negative Normal NEG [facility] Comment on above: Performed By: #### U AMIC ####[address] [address])[phone] Director: Kelechi Dueñas MD PH,Ur 5.0 Normal 5.0-8.0 [facility] Comment on above: Performed By: #### U AMIC ####[address] [address])[phone] Director: Kelechi Dueñas MD Protein Ql (U) 2+ mg/dL Abnormal NEG [facility] Comment on above: Performed By: #### U AMIC ####[address] [address])[phone] Director: Kelechi Dueñas MD Spec. [place],Ur 1.014 Normal 1.005-1.03 0 [facility] Comment on above: Performed By: #### U AMIC ####[address] [address])[phone] Director: Kelechi Dueñas MD Urine RBC's 2 TO 5 Normal 0-4 [facility] Comment on above: Result Comment: Refe rence range defined for non-centrifuged specimen. Performed By: #### U AMIC ####[address] [address])[phone] Director: Kelechi Dueñas MD Urine WBC's 0 TO 2 Normal 0-5 [facility] Comment on above: Performed By: #### U AMIC ####[address] [address])[phone] Director: Kelechi Dueñas MD Urobilinogen,Ur Normal Normal 0.0-1.0 [facility] Comment on above: Performed By: #### U AMIC ####[address] [address] Lab Director: Kelechi Dueñas MD Urinalysis with Microscopico n 05-23-2024 Bacteria LM Ql (Urine sed) None None [facility] Bilirubin Ql (U) Negative NEGATIVE [facility] Casts LM.LPF (Urine sed) [#/Area] 2 TO 5 HYALINE Reference range defined for non-centrifuged specimen. [facility] Clarity (U) Clear Clear [facility] Color (U) Yellow Yellow [facility] Epithelial cells LM.HPF (Urine sed) [#/Area] 0 TO 2 [facility] Glucose Test strip (U) [Mass/Vol] Negative NEGATIVE mg/dL [facility] Hemoglobin Auto test strip Ql (U) Negative NEGATIVE [facility] Interpretation and review of laboratory results Abnormal [facility] Ketones (U) [Mass/Vol] TRACE Abnormal NEGAT LES mg/dL [facility] Leukocyte esterase Test strip Ql (U) Negative NEGATIVE [facility] Nitrite Ql (U) Negative NEGATIVE [facility] pH (U) 5.0 [pH] 5.0 - 8.0 [facility] Protein (U) [Mass/Vol] 2+ Abnormal NEGAT LES mg/dL [facility] RBC LM.HPF (Urine sed) [#/Area] 2 TO 5 [facility] Specific gravity (U) [Rel density] 1.014 1.005 - 1.030 [facility] Urobilinogen Qn (U) Normal 0.0 - 1. 0 EU/dL [facility] WBC LM.HPF (Urine sed) [#/Area] 0 TO 2 [facility] Alanine aminotransferase [En zymatic activity/volume] in Serum or PlasmaOrdered By: Lolita Adorno on 03-22-2024 ALT [Catalytic activity/Vol] 19 U/L 7-52 [facility] Albumin [Mass/volume] in Ser um or Plasma by Bromocresol green (BCG) dye binding methoOrdered By: Lolita Adorno on 03-22-2024 Albumin BCG dye [Mass/Vol] 4.3 g/dL 3.5-5.7 [facility] Alkaline phosphatase [Enzyma tic activity/volume] in Serum or PlasmaOrdered By: Lolita Adorno on 03-22-2024 ALP [Catalytic activity/Vol] 102 U/L 34-104 [facility] Aspartate aminotransferase [ Enzymatic activity/volume] in Serum or PlasmaOrdered By: Lolita Adorno on 03-22-2024 AST [Catalytic activity/Vol] 19 U/L 13-39 [facility] Basophils Auto (Bld) [#/Vol] Ordered By: Lolita Adorno on 03-22-2024 Basophils (Bld) [#/Vol] 0.0 10*3/uL 0.0-0.2 [facility] Basophils/100 WBC Auto (Bld) Ordered By: Lolita Adorno on 03-22-2024 Basophils/100 WBC (Bld) 0.5 % . [facility] Bilirubin.total [Mass/volume ] in Serum or PlasmaOrdered By: Lolita Adorno on 03-22-2024 Bilirubin [Mass/Vol] 0.6 mg/dL 0.3-1.0 [facility] Calcium [Mass/volume] in Ser um or PlasmaOrdered By: Lolita Adorno on 03-22-2024 Calcium [Mass/Vol] 9.2 mg/dL 8.6-10.3 [facility] Carbon dioxide, total [Moles /volume] in Serum or PlasmaOrdered By: Lolita Adorno on 03-22-2024 CO2 [Moles/Vol] 25.9 mmol/L 21.0-31.0 [facility] Chloride [Moles/volume] in S antolin or PlasmaOrdered By: Lolita Adorno on 03-22-2024 Chloride [Moles/Vol] 109 mmol/L High 98-107 [facility] Cholesterol [Mass/volume] in Serum or PlasmaOrdered By: Lolita Adorno on 03-22-2024 Cholesterol [Mass/Vol] 132 mg/dL Low 140-200 [facility] Comment on above: Chol less than 200 m g/dl low riskChol 201-239 mg/dl borderline riskChol 240 mg/dl and greater high risk Cholesterol in LDL Calc [Mas s/Vol]Ordered By: Lolita Adorno on 03-22-2024 Cholesterol in LDL [Mass/Vol] 52 mg/dL 0-100 [facility] Comment on above: LDL ATP III CLASSIFI CATIONLDL less than 100 mg/dL OptimalLDL 100-129 mg/dL Near or above optimalLDL 130-159 mg/dL Borderline highLDL 160-189 mg/dL HighLDL greater than 189 mg/dL Very high Cholesterol in VLDL Calc [Ma ss/Vol]Ordered By: Lolita Adorno on 03-22-2024 Cholesterol in VLDL [Mass/Vol] 47 mg/dL [facility] Creatinine [Mass/volume] in Serum or PlasmaOrdered By: Lolita Adorno on 03-22-2024 Creatinine [Mass/Vol] 2.25 mg/dL High 0.70-1.30 [facility] Eosinophils Auto (Bld) [#/Vo l]Ordered By: Lolita Adorno on 03-22-2024 Eosinophils (Bld) [#/Vol] 0.3 10*3/uL 0.0-0.45 [facility] Eosinophils/100 WBC Auto (Bl d)Ordered By: Lolita Adorno on 03-22-2024 Eosinophils/100 WBC (Bld) 4.4 % . [facility] Erythrocyte distribution wid th Auto (RBC) [Ratio]Ordered By: Lolita Adorno on 03-22-2024 Erythrocyte distribution width (RBC) [Ratio] 13.9 % 12.0-14.8 [facility] Globulin Calc (S) [Mass/Vol] Ordered By: Lolita Adorno on 03-22-2024 Globulin (S) [Mass/Vol] 2.4 g/dL [facility] Glucose [Mass/volume] in Ser um or PlasmaOrdered By: Lolita Adorno on 03-22-2024 Glucose [Mass/Vol] 145 mg/dL High 70-100 [facility] Comment on above: ADA recommended refe rence rangeRandom Glucose Reference Range is dependent on time and content of last meal. Glucose of more than 200 mg/dL in a nonstressed, ambulatory subject supports the diagnosis of Diabetes Mellitus. HbA1c HPLC (Bld) [Mass fract ion]on 03-22-2024 HbA1c (Bld) [Mass fraction] 7.9 % [facility] Hematocrit Auto (Bld) [Volum e fraction]Ordered By: Lolita Adorno on 03-22-2024 Hematocrit (Bld) [Volume fraction] 39.7 % 38.8-50.0 [facility] Hemoglobin [Mass/volume] in BloodOrdered By: Lolita Adorno on 03-22-2024 Hemoglobin (Bld) [Mass/Vol] 13.1 g/dL 13.0-17.0 [facility] Leukocytes [#/volume] correc ruben for nucleated erythrocytes in Blood by Automated counOrdered By: Lolita Adorno on 03-22-2024 WBC corrected for nucl RBC Auto (Bld) [#/Vol] 7.6 10*3/uL 4.1-10.5 [facility] Lymphocytes Auto (Bld) [#/Vo l]Ordered By: Lolita Adorno on 03-22-2024 Lymphocytes (Bld) [#/Vol] 2.1 10*3/uL 1.00-4.8 [facility] Lymphocytes/100 WBC Auto (Bl d)Ordered By: Lolita Adorno on 03-22-2024 Lymphocytes/100 WBC (Bld) 28.1 % . [facility] MCH Auto (RBC) [Entitic mass ]Ordered By: Lolita Adorno on 03-22-2024 MCH (RBC) [Entitic mass] 28.1 pg 27.5-35.2 [facility] MCHC Auto (RBC) [Mass/Vol]Or dered By: Lolita Adorno on 03-22-2024 MCHC (RBC) [Mass/Vol] 33.1 g/dL 32.5-35.6 [facility] MCV Auto (RBC) [Entitic vol] Ordered By: Lolita Adorno on 03-22-2024 MCV (RBC) [Entitic vol] 85.0 fL 83.5-101 [facility] Monocytes Auto (Bld) [#/Vol] Ordered By: Lolita Adorno on 03-22-2024 Monocytes (Bld) [#/Vol] 0.8 10*3/uL 0.0-0.8 [facility] Monocytes/100 WBC Auto (Bld) Ordered By: Lolita Adorno on 03-22-2024 Monocytes/100 WBC (Bld) 10.6 % . [facility] Neutrophils Auto (Bld) [#/Vo l]Ordered By: Lolita Adorno on 03-22-2024 Neutrophils (Bld) [#/Vol] 4.3 10*3/uL 1.8-7.7 [facility] Neutrophils/100 WBC Auto (Bl d)Ordered By: Lolita Adorno on 03-22-2024 Neutrophils/100 WBC (Bld) 56.4 % . [facility] No Panel InformationOrdered By: Lolita Adorno on 03-22-2024 Estimated GFR (CKD-EPI) 30.032 mL/Min [facility] Creatinine Clearance (Chem N/A [facility] Nucleated erythrocytes [Pres ence] in Blood by Automated countOrdered By: Lolita Adorno on 03-22-2024 Nucleated RBC Auto Ql (Bld) 0.2 /100{WBC} 0-0.5 [facility] Platelet mean volume Auto (B ld) [Entitic vol]Ordered By: Lolita Adorno on 03-22-2024 Platelet mean volume (Bld) [Entitic vol] 9.0 fL 6.6-10.1 [facility] Platelets Auto (Bld) [#/Vol] Ordered By: Lolita Adorno on 03-22-2024 Platelets (Bld) [#/Vol] 182 10*3/uL 150-450 [facility] Potassium [Moles/volume] in Serum or PlasmaOrdered By: Lolita Adorno on 03-22-2024 Potassium [Moles/Vol] 4.8 mmol/L 3.5-5.1 [facility] Protein [Mass/volume] in Ser um or PlasmaOrdered By: Lolita Adorno on 03-22-2024 Protein [Mass/Vol] 6.7 g/dL 6.4-8.9 [facility] RBC Auto (Bld) [#/Vol]Ordere d By: Lolita Adorno on 03-22-2024 RBC (Bld) [#/Vol] 4.67 10*6/uL 3.90-5.60 [facility] Serum or plasma albumin/glob ulin mass ratioOrdered By: Lolita Adorno on 03-22-2024 Albumin/Globulin [Mass ratio] 1.8 {ratio} [facility] Serum or plasma anion gap de terminationOrdered By: Lolita Adorno on 03-22-2024 Anion gap [Moles/Vol] 10.9 mmol/L 6.0-15.0 [facility] Serum or plasma high density lipoprotein (HDL) cholesterol measurementOrdered By: Lolita Adorno on 03-22-2024 Cholesterol in HDL [Mass/Vol] 32 mg/dL 23-92 [facility] Comment on above: HDL CHOL ATP-III CLA SSIFICATION Cardiovascular RiskHDL > or equal to 60 mg/dL LOWHDL < 40 mg/dL HIGH Serum or plasma total choles terol/high density lipoprotein (HDL) cholesterol mass ratOrdered By: Lolita Adorno on 03-22-2024 Cholesterol.total/Flavia sterol in HDL [Mass ratio] 4.1 {ratio} <5.0 [facility] Sodium [Moles/volume] in Ser um or PlasmaOrdered By: Lolita Adorno on 03-22-2024 Sodium [Moles/Vol] 141 mmol/L 136-145 [facility] Triglyceride [Mass/volume] i n Serum or PlasmaOrdered By: Lolita Adorno on 03-22-2024 Triglyceride [Mass/Vol] 238 mg/dL High 0-149 [facility] Comment on above: TRIG ATP III CLASSIF ICATIONTRIG less than 150 mg/dL NormalTRIG 150-199 mg/dL Borderline highTRIG 200-500 mg/dL High TRIG greater than 500 mg/dL Very highStandard traceable to the Center for Disease Conrtrol and Prevention (CDC) test method. Urea nitrogen [Mass/volume] in Serum or PlasmaOrdered By: Lolita Adorno on 03-22-2024 Urea nitrogen [Mass/Vol] 38 mg/dL High 7-25 [facility] WBC Auto (Bld) [#/Vol]Ordere d By: Lolita Adorno on 03-22-2024 WBC (Bld) [#/Vol] 7.6 10*3/uL 4.1-10.5 [facility] HbA1c HPLC (d) [Mass fract ion]on 12-25-2023 HbA1c (Bld) [Mass fraction] 10.4 % [facility] Alanine aminotransferase [En zymatic activity/volume] in Serum or PlasmaOrdered By: Gabriela Florian on 10-17-2023 ALT [Catalytic activity/Vol] 14 U/L 7-52 [facility] Aspartate aminotransferase [ Enzymatic activity/volume] in Serum or PlasmaOrdered By: Gabriela Florian on 10-17-2023 AST [Catalytic activity/Vol] 15 U/L 13-39 [facility] Cholesterol [Mass/volume] in Serum or PlasmaOrdered By: Gabriela Florian on 10-17-2023 Cholesterol [Mass/Vol] 119 mg/dL 140-200 [facility] Comment on above: Chol less than 200 m g/dl low riskChol 201-239 mg/dl borderline riskChol 240 mg/dl and greater high risk Cholesterol in LDL Calc [Mas s/Vol]Ordered By: Gabriela Florian on 10-17-2023 Cholesterol in LDL [Mass/Vol] 16 mg/dL 0-100 [facility] Comment on above: LDL ATP III CLASSIFI CATIONLDL less than 100 mg/dL OptimalLDL 100-129 mg/dL Near or above optimalLDL 130-159 mg/dL Borderline highLDL 160-189 mg/dL HighLDL greater than 189 mg/dL Very high Cholesterol in VLDL Calc [Ma ss/Vol]Ordered By: Gabriela Florian on 10-17-2023 Cholesterol in VLDL [Mass/Vol] 76 mg/dL [facility] Serum or plasma high density lipoprotein (HDL) cholesterol measurementOrdered By: Gabriela Florian on 10-17-2023 Cholesterol in HDL [Mass/Vol] 27 mg/dL 23-92 [facility] Comment on above: HDL CHOL ATP-III CLA SSIFICATION Cardiovascular RiskHDL > or equal to 60 mg/dL LOWHDL < 40 mg/dL HIGH Serum or plasma total choles terol/high density lipoprotein (HDL) cholesterol mass ratOrdered By: Gabriela Florian on 10-17-2023 Cholesterol.total/Flavia sterol in HDL [Mass ratio] 4.4 {ratio} <5.0 [facility] Triglyceride [Mass/volume] i n Serum or PlasmaOrdered By: Gabriela Florian on 10-17-2023 Triglyceride [Mass/Vol] 382 mg/dL 0-149 [facility] Comment on above: TRIG ATP III CLASSIF ICATIONTRIG less than 150 mg/dL NormalTRIG 150-199 mg/dL Borderline highTRIG 200-500 mg/dL High TRIG greater than 500 mg/dL Very highStandard traceable to the Center for Disease Conrtrol and Prevention (CDC) test method. A1C HEMOGLOBINon 09-23-2023 HbA1c (Bld) [Mass fraction] 7.5 % [employer] Other Alanine aminotransferase [En zymatic activity/volume] in Serum or PlasmaOrdered By: Lolita Adorno on 09-23-2023 ALT [Catalytic activity/Vol] 20 U/L 7-52 [facility] Albumin [Mass/volume] in Ser um or Plasma by Bromocresol green (BCG) dye binding methoOrdered By: Lolita Adorno on 09-23-2023 Albumin BCG dye [Mass/Vol] 3.9 g/dL 3.5-5.7 [facility] Alkaline phosphatase [Enzyma tic activity/volume] in Serum or PlasmaOrdered By: Lolita Adorno on 09-23-2023 ALP [Catalytic activity/Vol] 117 U/L 34-104 [facility] Aspartate aminotransferase [ Enzymatic activity/volume] in Serum or PlasmaOrdered By: Lolita Adorno on 09-23-2023 AST [Catalytic activity/Vol] 15 U/L 13-39 [facility] Basophils Auto (Bld) [#/Vol] Ordered By: Lolita Adorno on 09-23-2023 Basophils (Bld) [#/Vol] 0.1 10*3/uL 0.0-0.2 [facility] Basophils/100 WBC Auto (Bld) Ordered By: Lolita Adorno on 09-23-2023 Basophils/100 WBC (Bld) 0.8 % . [facility] Bilirubin.total [Mass/volume ] in Serum or PlasmaOrdered By: Lolita Schwerer on 09-23-2023 Bilirubin [Mass/Vol] 0.5 mg/dL 0.3-1.0 [facility] Calcium [Mass/volume] in Ser um or PlasmaOrdered By: Lolita Schwerer on 09-23-2023 Calcium [Mass/Vol] 8.9 mg/dL 8.6-10.3 [facility] Carbon dioxide, total [Moles /volume] in Serum or PlasmaOrdered By: Lolita Schwerer on 09-23-2023 CO2 [Moles/Vol] 28.9 mmol/L 21.0-31.0 [facility] Chloride [Moles/volume] in S antolin or PlasmaOrdered By: Lolita Schwerer on 09-23-2023 Chloride [Moles/Vol] 107 mmol/L 98-107 [facility] Complete Blood Count Auto Di ffon 09-23-2023 Basophils (Bld) [#/Vol] 0.298016193 10*3/uL Normal 0.0-0.2 10*3/uL [employer] Other Basophils/100 WBC (Bld) 0.800 % . % [facility] [employer] Other Eosinophils (Bld) [#/Vol] 0.919348431 10*3/uL Normal 0.0-0.45 10*3/uL [employer] Other Eosinophils/100 WBC (Bld) 3.700 % . % [employer] Other Erythrocyte distribution width (RBC) [Ratio] 13.400 % Normal 12.0-14.8 % [employer] Other Hematocrit (Bld) [Volume fraction] 36.300 % Low 38.8-50.0 % [employer] Other Hemoglobin (Bld) [Mass/Vol] 12.822849 g/dL Low 13.0-17.0 g/dL [employer] Other Lymphocytes (Bld) [#/Vol] 1.450253802 10*3/uL Normal 1.00-4.8 10*3/uL [employer] Other Lymphocytes/100 WBC (Bld) 19.300 % . % [employer] Other MCH (RBC) [Entitic mass] 28.1000 pg Normal 27.5-35.2 pg [employer] Other MCV (RBC) [Entitic vol] 84.8000 fL Normal 83.5 -101 fL [employer] Other Monocytes (Bld) [#/Vol] 0.365782955 10*3/uL Normal 0.0-0.8 10*3/uL [employer] Other Monocytes/100 WBC (Bld) 9.500 % . % [facility] [employer] Other Neutrophils (Bld) [#/Vol] 5.063792543 10*3/uL Normal 1.8-7.7 10*3/uL [employer] Other Neutrophils/100 WBC (Bld) 66.700 % . % [employer] Other Platelet mean volume (Bld) [Entitic vol] 8.8000 fL Normal 6.6-10.1 fL [employer] Other WBC (Bld) [#/Vol] 8.989289334 10*3/uL Normal 4.1 -10.5 10*3/uL [employer] Other Complete Blood Count Auto Diff 8.2 10*3/uL Normal 4.1-10.5 10*3/uL [employer] Other Complete Blood Count Auto Diff 33.2 g/dL Normal 32.5-35.6 g/dL [employer] Other Complete Blood Count Auto Diff 0.1 /100{WBC} Normal 0-0.5 /100{WBC} [employer] Other Creatinine [Mass/volume] in Serum or PlasmaOrdered By: Lolita Adorno on 09-23-2023 Creatinine [Mass/Vol] 1.71 mg/dL 0.70-1.30 [facility] Eosinophils Auto (Bld) [#/Vo l]Ordered By: Lolita Adorno on 09-23-2023 Eosinophils (Bld) [#/Vol] 0.3 10*3/uL 0.0-0.45 [facility] Eosinophils/100 WBC Auto (Bl d)Ordered By: Lolita Adorno on 09-23-2023 Eosinophils/100 WBC (Bld) 3.7 % . [facility] Erythrocyte distribution wid th Auto (RBC) [Ratio]Ordered By: Lolita Adorno on 09-23-2023 Erythrocyte distribution width (RBC) [Ratio] 13.4 % 12.0-14.8 [facility] Erythrocytes [#/volume] in B lood by Automated countOrdered By: Lolita Adorno on 09-23-2023 RBC (Bld) [#/Vol] 4.28 10*6/uL 3.90-5.60 [facility] Globulin Calc (S) [Mass/Vol] Ordered By: Lolita Adorno on 09-23-2023 Globulin (S) [Mass/Vol] 2.3 g/dL [facility] Glucose [Mass/volume] in Ser um or PlasmaOrdered By: Lolita Adorno on 09-23-2023 Glucose [Mass/Vol] 212 mg/dL 70-100 [facility] Comment on above: ADA recommended refe rence rangeRandom Glucose Reference Range is dependent on time and content of last meal. Glucose of more than 200 mg/dL in a nonstressed, ambulatory subject supports the diagnosis of Diabetes Mellitus. HbA1c (Bld) [Mass fraction]o n 09-23-2023 A1C HEMOGLOBIN [facility] [employer] Other Hematocrit Auto (Bld) [Volum e fraction]Ordered By: Lolita Adorno on 09-23-2023 Hematocrit (Bld) [Volume fraction] 36.3 % 38.8-50.0 [facility] Hemoglobin [Mass/volume] in BloodOrdered By: Lolita Adorno on 09-23-2023 Hemoglobin (Bld) [Mass/Vol] 12.0 g/dL 13.0-17.0 [facility] Leukocytes [#/volume] correc ruben for nucleated erythrocytes in Blood by Automated counOrdered By: Lolita Adorno on 09-23-2023 WBC corrected for nucl RBC Auto (Bld) [#/Vol] 8.2 10*3/uL 4.1-10.5 [facility] Lymphocytes Auto (Bld) [#/Vo l]Ordered By: Lolita Adorno on 09-23-2023 Lymphocytes (Bld) [#/Vol] 1.6 10*3/uL 1.00-4.8 [facility] Lymphocytes/100 WBC Auto (Bl d)Ordered By: Lolita Adorno on 09-23-2023 Lymphocytes/100 WBC (Bld) 19.3 % . [facility] MCH Auto (RBC) [Entitic mass ]Ordered By: Lolita Adorno on 09-23-2023 MCH (RBC) [Entitic mass] 28.1 pg 27.5-35.2 [facility] MCHC Auto (RBC) [Mass/Vol]Or dered By: Lolita Adorno on 09-23-2023 MCHC (RBC) [Mass/Vol] 33.2 g/dL 32.5-35.6 [facility] MCV Auto (RBC) [Entitic vol] Ordered By: Lolita Adorno on 09-23-2023 MCV (RBC) [Entitic vol] 84.8 fL 83.5-101 [facility] Monocytes Auto (Bld) [#/Vol] Ordered By: Lolita Adorno on 09-23-2023 Monocytes (Bld) [#/Vol] 0.8 10*3/uL 0.0-0.8 [facility] Monocytes/100 WBC Auto (Bld) Ordered By: Lolita Adorno on 09-23-2023 Monocytes/100 WBC (Bld) 9.5 % . [facility] Neutrophils Auto (Bld) [#/Vo l]Ordered By: Lolita Adorno on 09-23-2023 Neutrophils (Bld) [#/Vol] 5.5 10*3/uL 1.8-7.7 [facility] Neutrophils/100 WBC Auto (Bl d)Ordered By: Lolita Adorno on 09-23-2023 Neutrophils/100 WBC (Bld) 66.7 % . [facility] No Panel InformationOrdered By: Lolita Adorno on 09-23-2023 Estimated GFR (CKD-EPI) 41.746 mL/Min [facility] Creatinine Clearance (Chem N/A [facility] Nucleated erythrocytes [Pres ence] in Blood by Automated countOrdered By: Lolita Adorno on 09-23-2023 Nucleated RBC Auto Ql (Bld) 0.1 /100{WBC} 0-0.5 [facility] Platelet mean volume Auto (B ld) [Entitic vol]Ordered By: Lolita Adorno on 09-23-2023 Platelet mean volume (Bld) [Entitic vol] 8.8 fL 6.6-10.1 [facility] Platelets [#/volume] in Bloo d by Automated countOrdered By: Lolita Adorno on 09-23-2023 Platelets (Bld) [#/Vol] 194 10*3/uL 150-450 [facility] Potassium [Moles/volume] in Serum or PlasmaOrdered By: Lolita Adorno on 09-23-2023 Potassium [Moles/Vol] 4.3 mmol/L 3.5-5.1 [facility] Protein [Mass/volume] in Ser um or PlasmaOrdered By: Lolita Adorno on 09-23-2023 Protein [Mass/Vol] 6.2 g/dL 6.4-8.9 [facility] Serum or plasma albumin/glob ulin mass ratioOrdered By: Lolita Adorno on 09-23-2023 Albumin/Globulin [Mass ratio] 1.7 {ratio} [facility] Serum or plasma anion gap de terminationOrdered By: Lolita Adorno on 09-23-2023 Anion gap [Moles/Vol] 9.4 mmol/L 6.0-15.0 [facility] Sodium [Moles/volume] in Ser um or PlasmaOrdered By: Lolita Adorno on 09-23-2023 Sodium [Moles/Vol] 141 mmol/L 136-145 [facility] Urea nitrogen [Mass/volume] in Serum or PlasmaOrdered By: Lolita Adorno on 09-23-2023 Urea nitrogen [Mass/Vol] 20 mg/dL 7-25 [facility] WBC Auto (Bld) [#/Vol]Ordere d By: Lolita Adorno on 09-23-2023 WBC (Bld) [#/Vol] 8.2 10*3/uL 4.1-10.5 [facility] Basophils Auto (Bld) [#/Vol] Ordered By: Barbie Osborn on 09-11-2023 Basophils (Bld) [#/Vol] 0.0 10*3/uL 0.0-0.2 [facility] Basophils/100 WBC Auto (Bld) Ordered By: Barbie Osborn on 09-11-2023 Basophils/100 WBC (Bld) 0.5 % . [facility] Calcium [Mass/volume] in Ser um or PlasmaOrdered By: Barbie Osborn on 09-11-2023 Calcium [Mass/Vol] 8.4 mg/dL 8.6-10.3 [facility] Carbon dioxide, total [Moles /volume] in Serum or PlasmaOrdered By: Barbie Osborn on 09-11-2023 CO2 [Moles/Vol] 24.0 mmol/L 21.0-31.0 [facility] Chloride [Moles/volume] in S antolin or PlasmaOrdered By: Barbie Osborn on 09-11-2023 Chloride [Moles/Vol] 109 mmol/L 98-107 [facility] Creatinine [Mass/volume] in Serum or PlasmaOrdered By: Barbie Osborn on 09-11-2023 Creatinine [Mass/Vol] 2.18 mg/dL 0.70-1.30 [facility] Eosinophils Auto (Bld) [#/Vo l]Ordered By: Barbie Osborn on 09-11-2023 Eosinophils (Bld) [#/Vol] 0.4 10*3/uL 0.0-0.45 [facility] Eosinophils/100 WBC Auto (Bl d)Ordered By: Barbie Osborn on 09-11-2023 Eosinophils/100 WBC (Bld) 4.4 % . [facility] Erythrocyte distribution wid th Auto (RBC) [Ratio]Ordered By: Barbie Osborn on 09-11-2023 Erythrocyte distribution width (RBC) [Ratio] 13.2 % 12.0-14.8 [facility] Glucose Glucometer (dC) [M ass/Vol]Ordered By: Barbie Osborn on 09-11-2023 Glucose [Mass/Vol] 304 mg/dL [facility] Comment on above: Random Glucose Refer ence Range is dependent on time and content of last meal. Glucose of more than 200 mg/dL in a nonstressed, ambulatory subject supports the diagnosis of Diabetes Mellitus. Glucose [Mass/volume] in Ser um or PlasmaOrdered By: Barbie Osborn on 09-11-2023 Glucose [Mass/Vol] 136 mg/dL 70-100 [facility] Comment on above: ADA recommended refe rence rangeRandom Glucose Reference Range is dependent on time and content of last meal. Glucose of more than 200 mg/dL in a nonstressed, ambulatory subject supports the diagnosis of Diabetes Mellitus. Hematocrit Auto (Bld) [Volum e fraction]Ordered By: Barbie Osborn on 09-11-2023 Hematocrit (Bld) [Volume fraction] 30.6 % 38.8-50.0 [facility] Hemoglobin [Mass/volume] in BloodOrdered By: Barbie Osborn on 09-11-2023 Hemoglobin (Bld) [Mass/Vol] 10.5 g/dL 13.0-17.0 [facility] Leukocytes [#/volume] correc ruben for nucleated erythrocytes in Blood by Automated counOrdered By: Barbie Osborn on 09-11-2023 WBC corrected for nucl RBC Auto (Bld) [#/Vol] 8.0 10*3/uL 4.1-10.5 [facility] Lymphocytes Auto (Bld) [#/Vo l]Ordered By: Barbie Osborn on 09-11-2023 Lymphocytes (Bld) [#/Vol] 1.7 10*3/uL 1.00-4.8 [facility] Lymphocytes/100 WBC Auto (Bl d)Ordered By: Barbie Osborn on 09-11-2023 Lymphocytes/100 WBC (Bld) 21.8 % . [facility] MCH Auto (RBC) [Entitic mass ]Ordered By: Barbie Osborn on 09-11-2023 MCH (RBC) [Entitic mass] 28.9 pg 27.5-35.2 [facility] MCHC Auto (RBC) [Mass/Vol]Or dered By: Barbie Osborn on 09-11-2023 MCHC (RBC) [Mass/Vol] 34.3 g/dL 32.5-35.6 [facility] MCV Auto (RBC) [Entitic vol] Ordered By: Barbie Osborn on 09-11-2023 MCV (RBC) [Entitic vol] 84.1 fL 83.5-101 [facility] Monocytes Auto (Bld) [#/Vol] Ordered By: Barbie Osborn on 09-11-2023 Monocytes (Bld) [#/Vol] 1.0 10*3/uL 0.0-0.8 [facility] Monocytes/100 WBC Auto (Bld) Ordered By: Barbie Osborn on 09-11-2023 Monocytes/100 WBC (Bld) 12.6 % . [facility] Neutrophils Auto (Bld) [#/Vo l]Ordered By: Barbie Osborn on 09-11-2023 Neutrophils (Bld) [#/Vol] 4.8 10*3/uL 1.8-7.7 [facility] Neutrophils/100 WBC Auto (Bl d)Ordered By: Barbie Osborn on 09-11-2023 Neutrophils/100 WBC (Bld) 60.7 % . [facility] No Panel InformationOrdered By: Barbie Osborn on 09-11-2023 Estimated GFR (CKD-EPI) 31.193 mL/Min [facility] Creatinine Clearance (Chem 27.23 [facility] Nucleated erythrocytes [Pres ence] in Blood by Automated countOrdered By: Barbie Osborn on 09-11-2023 Nucleated RBC Auto Ql (Bld) 0.0 /100{WBC} 0-0.5 [facility] Platelet mean volume Auto (B ld) [Entitic vol]Ordered By: Barbie Osborn on 09-11-2023 Platelet mean volume (Bld) [Entitic vol] 9.0 fL 6.6-10.1 [facility] Platelets Auto (Bld) [#/Vol] Ordered By: Barbie Osborn on 09-11-2023 Platelets (Bld) [#/Vol] 158 10*3/uL 150-450 [facility] Potassium [Moles/volume] in Serum or PlasmaOrdered By: Barbie Osborn on 09-11-2023 Potassium [Moles/Vol] 4.2 mmol/L 3.5-5.1 [facility] RBC Auto (Bld) [#/Vol]Ordere d By: Barbie Osborn on 09-11-2023 RBC (Bld) [#/Vol] 3.64 10*6/uL 3.90-5.60 [facility] Serum or plasma anion gap de terminationOrdered By: Barbie Osborn on 09-11-2023 Anion gap [Moles/Vol] 10.2 mmol/L 6.0-15.0 [facility] Sodium [Moles/volume] in Ser um or PlasmaOrdered By: Barbie Osborn on 09-11-2023 Sodium [Moles/Vol] 139 mmol/L 136-145 [facility] Urea nitrogen [Mass/volume] in Serum or PlasmaOrdered By: Barbie Osborn on 09-11-2023 Urea nitrogen [Mass/Vol] 38 mg/dL 7-25 [facility] WBC Auto (Bld) [#/Vol]Ordere d By: Barbie Osborn on 09-11-2023 WBC (Bld) [#/Vol] 8.0 10*3/uL 4.1-10.5 [facility] Amylase [Enzymatic activity/ volume] in Serum or PlasmaOrdered By: Joao Coley on 09-10-2023 Amylase [Catalytic activity/Vol] 37 U/L 29-103 [facility] Lipase [Enzymatic activity/v olume] in Serum or PlasmaOrdered By: Joao Coley on 09-10-2023 Lipase [Catalytic activity/Vol] 25.0 U/L 11.0-82.0 [facility] No Panel InformationOrdered By: Barbie Osborn on 09-10-2023 Bedside Glucose Comment Glu2: cleaned meter [facility] Serum or plasma cancer antig en 19-9 measurement (units/volume)Ordered By: Joao Coley on 09-10-2023 Cancer Ag 19-9 Qn 23 [arb'U]/mL 0-35 [facility] Comment on above: Marianne [employer] El ectrochemiluminescence Immunoassay(ECLIA)Values obtained with different assay methods or kits cannotbe used interchangeably. Results cannot be interpreted asabsolute evidence of the presence or absence of malignantdisease.Performed at: [employer] Director: Chidi Hernandes PhD, Phone: [phone] Albumin [Mass/volume] in Ser um or PlasmaOrdered By: Nette Holden on 09-09-2023 Albumin [Mass/Vol] 3.2 g/dL 2.9-4.4 [facility] Albumin/Protein.total in 24 hour Urine by ElectrophoresisOrdered By: Nette Holden on 09-09-2023 Albumin Elph (24H U) [Mass fraction] 64.4 % . [facility] Folate [Mass/volume] in Seru m or PlasmaOrdered By: Nette Holden on 09-09-2023 Folate [Mass/Vol] 27.0 ng/mL >5.9 [facility] Comment on above: Folate reference ran ge: >5.9 ng/mlThe WHO technical consultation on folate and vitamin [id number] has determined that folate concentrations lessthan 4 ng/ml are considered deficient. Gamma globulin/Protein.total in 24 hour Urine by ElectrophoresisOrdered By: Nette Holden on 09-09-2023 Gamma globulin Elph (24H U) [Mass fraction] 13.1 % . [facility] IgA [Mass/volume] in Serum o r PlasmaOrdered By: Nette Adina on 09-09-2023 IgA [Mass/Vol] 159 mg/dL 61-437 [facility] IgG [Mass/volume] in Serum o r PlasmaOrdered By: Nette Adina on 09-09-2023 IgG [Mass/Vol] 793 mg/dL 603-1613 [facility] IgM [Mass/volume] in Serum o r PlasmaOrdered By: Nette Adina on 09-09-2023 IgM [Mass/Vol] 47 mg/dL 15-143 [facility] Immunofixation for UrineOrde red By: Nette Adina on 09-09-2023 Interpretation Immunofixation (U) [Interp] See comment . [facility] Comment on above: No monoclonality det ected.Performed at: [facility] [facility] [address] [id number] Director: Chidi Hernandes PhD, Phone: [phone] Immunoglobulin light chains. kappa.free [Mass/volume] in SerumOrdered By: Nette Adina on 09-09-2023 Immunoglobulin light chains.kappa.free (S) [Mass/Vol] 52.6 mg/L 3.3-19.4 [facility] Immunoglobulin light chains. kappa.free/Immunoglobulin light chains.lambda.free [MassOrdered By: Nette Adina on 09-09-2023 Immunoglobulin light chains.kappa.free/Immun oglobulin light chains.lambda.free (S) [Mass ratio] 1.88 0.26-1.65 [facility] Comment on above: Performed at: [facility] [address] [id number] Director: Chidi Hernandes PhD, Phone: [phone] Immunoglobulin light chains. lambda.free [Mass/volume] in Serum or PlasmaOrdered By: Nette Adina on 09-09-2023 Immunoglobulin light chains.lambda.free [Mass/Vol] 28.0 mg/L 5.7-26.3 [facility] Iron [Mass/volume] in Serum or PlasmaOrdered By: Nette Holden on 09-09-2023 Iron [Mass/Vol] 53 ug/dL 50-212 [facility] Iron binding capacity [Mass/ volume] in Serum or PlasmaOrdered By: Nette Adina on 09-09-2023 Iron binding capacity [Mass/Vol] 260 ug/dL 255-450 [facility] Iron saturation [Mass Fracti on] in Serum or PlasmaOrdered By: Nette Holden on 09-09-2023 Iron saturation [Mass fraction] 20.4 % 20-50 [facility] No Panel InformationOrdered By: Nette Holden on 09-09-2023 Urine Random Prot Electrophor Note See comment . [facility] Comment on above: Protein electrophore sis scan will follow via computer,mail, or rubber compounder supervisor delivery. Protein Electrophoresis M-Donaldo Not observed g/dL Not Observed [facility] Protein Electrophoresis Note See comment . [facility] Comment on above: Protein electrophore sis scan will follow via computer,mail, or rubber compounder supervisor delivery. Serum Immunofixation See comment . [facility] Comment on above: No monoclonality det ected. Protein [Mass/volume] in Ser um or PlasmaOrdered By: Nette Holden on 09-09-2023 Protein [Mass/Vol] 5.6 g/dL 6.0-8.5 [facility] Protein [Mass/volume] in Uri neOrdered By: Nette Holden on 09-09-2023 Protein (U) [Mass/Vol] 76.1 mg/dL Not Estab. [facility] Protein.monoclonal/Protein.t otal in 24 hour Urine by ElectrophoresisOrdered By: Nette Holden on 09-09-2023 Protein.monoclonal Elph (24H U) [Mass fraction] Not observed % Not Observed [facility] Serum globulin measurement ( mass/volume)Ordered By: Nette Holden on 09-09-2023 Globulin (S) [Mass/Vol] 2.4 g/dL 2.2-3.9 [facility] Serum or plasma albumin/glob ulin mass ratioOrdered By: Nette Holden on 09-09-2023 Albumin/Globulin [Mass ratio] 1.3 {ratio} 0.7-1.7 [facility] Serum or plasma alpha 1 glob ulin measurement by electrophoresis (mass/volume)Ordered By: Nette Holden on 09-09-2023 Alpha 1 globulin Elph [Mass/Vol] 0.2 g/dL 0.0-0.4 [facility] Serum or plasma alpha 2 glob ulin measurement by electrophoresis (mass/volume)Ordered By: Nette Holden on 09-09-2023 Alpha 2 globulin Elph [Mass/Vol] 0.7 g/dL 0.4-1.0 [facility] Serum or plasma beta globuli n measurement by electrophoresis (mass/volume)Ordered By: Nette Holden on 09-09-2023 Beta globulin Elph [Mass/Vol] 0.7 g/dL 0.7-1.3 [facility] Serum or plasma gamma globul in measurement by electrophoresis (mass/volume)Ordered By: Nette Holden on 09-09-2023 Gamma globulin Elph [Mass/Vol] 0.8 g/dL 0.4-1.8 [facility] Transferrin [Mass/volume] in Serum or PlasmaOrdered By: Nette Holden on 09-09-2023 Transferrin [Mass/Vol] 186 mg/dL 203-362 [facility] Urine alpha 1 globulin/total protein by electrophoresisOrdered By: Nette Holden on 09-09-2023 Alpha 1 globulin Elph (U) [Mass fraction] 2.5 % . [facility] Urine alpha 2 globulin/total protein ratio by electrophoresisOrdered By: Nette Holden on 09-09-2023 Alpha 2 globulin Elph (U) [Mass fraction] 7.7 % . [facility] Urine beta globulin measurem ent by electrophoresis (mass/volume)Ordered By: Nette Holden on 09-09-2023 Beta globulin Elph (U) [Mass/Vol] 12.3 % . [facility] Vitamin B12 ser/plasOrdered By: Nette Holden on 09-09-2023 Cobalamin (Vitamin B12) [Mass/Vol] 1320 pg/mL 180-914 [facility] Alanine aminotransferase [En zymatic activity/volume] in Serum or PlasmaOrdered By: Wyatt Chaparro on 09-08-2023 ALT [Catalytic activity/Vol] 9 U/L 7-52 [facility] Albumin [Mass/volume] in Ser um or Plasma by Bromocresol green (BCG) dye binding methoOrdered By: Wyatt Chaparro on 09-08-2023 Albumin BCG dye [Mass/Vol] 4.1 g/dL 3.5-5.7 [facility] Alkaline phosphatase [Enzyma tic activity/volume] in Serum or PlasmaOrdered By: Wyatt Chaparro on 09-08-2023 ALP [Catalytic activity/Vol] 96 U/L 34-104 [facility] Aspartate aminotransferase [ Enzymatic activity/volume] in Serum or PlasmaOrdered By: Wyatt Chaparro on 09-08-2023 AST [Catalytic activity/Vol] 16 U/L 13-39 [facility] Bilirubin.total [Mass/volume ] in Serum or PlasmaOrdered By: Wyatt Chaparro on 09-08-2023 Bilirubin [Mass/Vol] 0.4 mg/dL 0.3-1.0 [facility] Globulin Calc (S) [Mass/Vol] Ordered By: Wyatt Chaparro on 09-08-2023 Globulin (S) [Mass/Vol] 2.7 g/dL [facility] INR in Platelet poor plasma by Coagulation assayOrdered By: Wyatt Chaparro on 09-08-2023 INR Coag (PPP) [Relative time] 1.0 {INR} [facility] Comment on above: INR Therapeutic Rang [...] pyruvate reaction [Catalytic activity/Vol] 222 U/L 140-271 [facility] Monocyte distribution width [Entitic volume] in Blood by AutomatedOrdered By: Wyatt Chaparro on 12-04-2023 Monocyte distribution width Auto (Bld) [Entitic vol] 19.22 % 0.00-20.00 [facility] Protein [Mass/volume] in Ser um or PlasmaOrdered By: Wyatt Chaparro on 09-08-2023 Protein [Mass/Vol] 6.8 g/dL 6.4-8.9 [facility] Prothrombin time (PT)Ordered By: Wyatt Chaparro on 09-08-2023 PT Coag (PPP) [Time] 11.5 s 9.0-12.9 [facility] Comment on above: A hematocrit value g reater than 55% may lead to inaccurate results in coagulation testing. Patients having hematocrit values >55% require a special collection tube for coagulation studies. Please contact the laboratory at [phone] for redraw instructions. Serum or plasma albumin/glob ulin mass ratioOrdered By: Wyatt Chaparro on 09-08-2023 Albumin/Globulin [Mass ratio] 1.5 {ratio} [facility] Troponin I.cardiac [Mass/vol ume] in Serum or Plasma by Detection limit <= 0.01 ng/Ordered By: Barbie Osborn on 09-08-2023 Troponin I.cardiac DL <= 0.01 ng/mL [Mass/Vol] 61.9 pg/mL 0.0-20.0 [facility] Comment on above: Critical Result : Ca lled to and read back by: SANDRA KOWALSKI at: 09/08/2023 17:42:57 by:JUSTINE A1C HEMOGLOBINon 06-02-2023 HbA1c (Bld) [Mass fraction] 5.9 % [employer] Other HbA1c (Bld) [Mass fraction]o n 06-02-2023 A1C HEMOGLOBIN [employer] Other Prostate specific Ag [Mass/v olume] in Serum or PlasmaOrdered By: Lolita Adorno on 05-16-2023 Prostate specific Ag [Mass/Vol] 1.450 ng/mL 0.000-4.00 0 [facility] XR lumbar spine 6V w bending on 05-06-2023 XR lumbar spine 6V w bending [facility] [place] [employer] Other XR lumbar spine 6V w bending [facility] [place] [employer]) Other XR lumbar spine 6V w bending [address] [facility] [employer] Other XR lumbar spine 6[place] [address] [employer] Other XR lumbar spine 6V w bending XRay Report [employer]) Other XR lumbar spine 6V w bending Signed [employer] Other XR lumbar spine 6V w bending Patient: Gage Lugo MR#: [id number] [employer] Other XR lumbar spine 6V w bending [id number] [employer] Other XR lumbar spine 6V w bending : 1950 Acct:[id number] [employer] Other XR lumbar spine 6V w bending Age/Sex: 73 / M ADM Date: 05/06/23 [employer] Other XR lumbar spine 6V w bending Loc: XD Room: Type: REG [facility] [employer]) Other XR lumbar spine 6V w bending Attending Dr: Beth REED [employer]) Other XR lumbar spine 6V w bending Copies to: DEREK Ohara [employer] Other XR lumbar spine 6V w bending Ordering Provider: DEREK Ohara [employer] Other XR lumbar spine 6V w bending Date of Service: 05/06/23 [employer] Other XR lumbar spine 6V w bending XR/XR lumbar spine 6V w bending: M43.16 [employer] Other XR lumbar spine 6V w bending 6 views of the Lumbar Spinewith bending [employer] Other XR lumbar spine 6V w bending HISTORY: LEFT back pain since Friday [employer] Other XR lumbar spine 6V w bending COMPARISON: 12/23/22 [employer] Other XR lumbar spine 6V w bending POSTSURGICAL CHANGES: Stable postsurgical changes. No hardware failure. [employer] Other XR lumbar spine 6V w bending BONY ALIGNMENT: No hypermobility. Minor degenerative listhesis. Mild straightening of lumbar [employer] Other XR lumbar spine 6V w bending lordosis. Mild scoliosis [employer] Other XR lumbar spine 6V w bending FRACTURE: None [employer] Other XR lumbar spine 6V w bending DEGENERATIVE CHANGES: Similar moderate degenerative changes. [employer] Other XR lumbar spine 6V w bending SOFT TISSUES: Unremarkable [employer] Other XR lumbar spine 6V w bending BONY MINERALIZATION:Adequate [employer] Other XR lumbar spine 6V w bending XR/XR lumbar spine 6V w bending [employer] Other XR lumbar spine 6V w bending IMPRESSION: No hypermobility. Stable postsurgical and degenerative change. [employer] Other XR lumbar spine 6V w bending Impression dictated by: Rob Chung M.D.05/06/2023 2:57 PM [employer] Other XR lumbar spine 6V w bending Dictation Location: [place] [address] [employer] Other XR lumbar spine 6V w bending Transcribed By: LOBITO 05/06/23 [facility] [employer] Other XR lumbar spine 6V w bending Dictated By: Rob Chung DO 05/06/23 [facility] [employer] Other XR lumbar spine 6V w bending Signed By: [employer] Other XR lumbar spine 6V w bending 05/06/23 [id number] [employer] Other Alanine aminotransferase [En zymatic activity/volume] in Serum or PlasmaOrdered By: Lolita Adorno on 04-30-2023 ALT [Catalytic activity/Vol] 18 U/L 7-52 [facility] Albumin [Mass/volume] in Ser um or Plasma by Bromocresol green (BCG) dye binding methoOrdered By: Lolita Adorno on 04-30-2023 Albumin BCG dye [Mass/Vol] 4.1 g/dL 3.5-5.7 [facility] Alkaline phosphatase [Enzyma tic activity/volume] in Serum or PlasmaOrdered By: Lolita Adorno on 04-30-2023 ALP [Catalytic activity/Vol] 87 U/L 34-104 [facility] Aspartate aminotransferase [ Enzymatic activity/volume] in Serum or PlasmaOrdered By: Lolita Adorno on 04-30-2023 AST [Catalytic activity/Vol] 18 U/L 13-39 [facility] Basophils Auto (Bld) [#/Vol] Ordered By: Lolita Adorno on 04-30-2023 Basophils (Bld) [#/Vol] 0.0 10*3/uL 0.0-0.2 [facility] Basophils/100 WBC Auto (Bld) Ordered By: Lolita Adorno on 04-30-2023 Basophils/100 WBC (Bld) 0.6 % . [facility] Bilirubin.total [Mass/volume ] in Serum or PlasmaOrdered By: Lolita Adorno on 04-30-2023 Bilirubin [Mass/Vol] 0.4 mg/dL 0.3-1.0 [facility] Calcium [Mass/volume] in Ser um or PlasmaOrdered By: Lolita Adorno on 04-30-2023 Calcium [Mass/Vol] 8.8 mg/dL 8.6-10.3 [facility] Carbon dioxide, total [Moles /volume] in Serum or PlasmaOrdered By: Lolita Adorno on 04-30-2023 CO2 [Moles/Vol] 25.4 mmol/L 21.0-31.0 [facility] Chloride [Moles/volume] in S antolin or PlasmaOrdered By: Lolita Adorno on 04-30-2023 Chloride [Moles/Vol] 110 mmol/L 98-107 [facility] Cholesterol [Mass/volume] in Serum or PlasmaOrdered By: Lolita Adorno on 04-30-2023 Cholesterol [Mass/Vol] 114 mg/dL 140-200 [facility] Comment on above: Chol less than 200 m g/dl low riskChol 201-239 mg/dl borderline riskChol 240 mg/dl and greater high risk Cholesterol in LDL Calc [Mas s/Vol]Ordered By: Lolita Adorno on 04-30-2023 Cholesterol in LDL [Mass/Vol] 42 mg/dL 0-100 [facility] Comment on above: LDL ATP III CLASSIFI CATIONLDL less than 100 mg/dL OptimalLDL 100-129 mg/dL Near or above optimalLDL 130-159 mg/dL Borderline highLDL 160-189 mg/dL HighLDL greater than 189 mg/dL Very high Cholesterol in VLDL Calc [Ma ss/Vol]Ordered By: Lolita Adorno on 04-30-2023 Cholesterol in VLDL [Mass/Vol] 40 mg/dL [facility] Creatinine [Mass/volume] in Serum or PlasmaOrdered By: Lolita Adorno on 04-30-2023 Creatinine [Mass/Vol] 1.75 mg/dL 0.70-1.30 [facility] Eosinophils Auto (Bld) [#/Vo l]Ordered By: Lolita Adorno on 04-30-2023 Eosinophils (Bld) [#/Vol] 0.3 10*3/uL 0.0-0.45 [facility] Eosinophils/100 WBC Auto (Bl d)Ordered By: Lolita Adorno on 04-30-2023 Eosinophils/100 WBC (Bld) 4.9 % . [facility] Erythrocyte distribution wid th Auto (RBC) [Ratio]Ordered By: Lolita Adorno on 04-30-2023 Erythrocyte distribution width (RBC) [Ratio] 14.0 % 12.0-14.8 [facility] Ferritin [Mass/volume] in Se rum or PlasmaOrdered By: Lolita Adorno on 04-30-2023 Ferritin [Mass/Vol] 44.2 ng/mL 23.9-336.2 [facility] Folate [Mass/volume] in Seru m or PlasmaOrdered By: Lolita Adorno on 04-30-2023 Folate [Mass/Vol] 28.0 ng/mL >5.9 [facility] Comment on above: Folate reference ran ge: >5.9 ng/mlThe WHO technical consultation on folate and vitamin [id number] has determined that folate concentrations lessthan 4 ng/ml are considered deficient. Globulin Calc (S) [Mass/Vol] Ordered By: Lolita Adorno on 04-30-2023 Globulin (S) [Mass/Vol] 2.2 g/dL [facility] Glucose [Mass/volume] in Ser um or PlasmaOrdered By: Lolita Adorno on 04-30-2023 Glucose [Mass/Vol] 103 mg/dL 70-100 [facility] Comment on above: ADA recommended refe rence rangeRandom Glucose Reference Range is dependent on time and content of last meal. Glucose of more than 200 mg/dL in a nonstressed, ambulatory subject supports the diagnosis of Diabetes Mellitus. Hematocrit Auto (Bld) [Volum e fraction]Ordered By: Lolita Adorno on 04-30-2023 Hematocrit (Bld) [Volume fraction] 36.3 % 38.8-50.0 [facility] Hemoglobin [Mass/volume] in BloodOrdered By: Lolita Adorno on 04-30-2023 Hemoglobin (Bld) [Mass/Vol] 12.1 g/dL 13.0-17.0 [facility] Iron [Mass/volume] in Serum or PlasmaOrdered By: Lolita Adorno on 04-30-2023 Iron [Mass/Vol] 58 ug/dL 50-212 [facility] Iron binding capacity [Mass/ volume] in Serum or PlasmaOrdered By: Lolita Adorno on 04-30-2023 Iron binding capacity [Mass/Vol] 293 ug/dL 255-450 [facility] Iron saturation [Mass Fracti on] in Serum or PlasmaOrdered By: Lolita Adorno on 04-30-2023 Iron saturation [Mass fraction] 19.8 % 20-50 [facility] Leukocytes [#/volume] correc ruben for nucleated erythrocytes in Blood by Automated counOrdered By: Lolita Adorno on 04-30-2023 WBC corrected for nucl RBC Auto (Bld) [#/Vol] 7.1 10*3/uL 4.1-10.5 [facility] Lymphocytes Auto (Bld) [#/Vo l]Ordered By: Lolita Adorno on 04-30-2023 Lymphocytes (Bld) [#/Vol] 1.7 10*3/uL 1.00-4.8 [facility] Lymphocytes/100 WBC Auto (Bl d)Ordered By: Lolita Adorno on 04-30-2023 Lymphocytes/100 WBC (Bld) 24.4 % . [facility] MCH Auto (RBC) [Entitic mass ]Ordered By: Lolita Adorno on 04-30-2023 MCH (RBC) [Entitic mass] 28.1 pg 27.5-35.2 [facility] MCHC Auto (RBC) [Mass/Vol]Or dered By: Lolita Adorno on 04-30-2023 MCHC (RBC) [Mass/Vol] 33.4 g/dL 32.5-35.6 [facility] MCV Auto (RBC) [Entitic vol] Ordered By: Lolita Adorno on 04-30-2023 MCV (RBC) [Entitic vol] 84.0 fL 83.5-101 [facility] Monocytes Auto (Bld) [#/Vol] Ordered By: Lolita Adorno on 04-30-2023 Monocytes (Bld) [#/Vol] 0.9 10*3/uL 0.0-0.8 [facility] Monocytes/100 WBC Auto (Bld) Ordered By: Lolita Adorno on 04-30-2023 Monocytes/100 WBC (Bld) 12.5 % . [facility] Neutrophils Auto (Bld) [#/Vo l]Ordered By: Lolita Adorno on 04-30-2023 Neutrophils (Bld) [#/Vol] 4.1 10*3/uL 1.8-7.7 [facility] Neutrophils/100 WBC Auto (Bl d)Ordered By: Lolita Adorno on 04-30-2023 Neutrophils/100 WBC (Bld) 57.6 % . [facility] No Panel InformationOrdered By: Lolita Adorno on 04-30-2023 Estimated GFR (CKD-EPI) 40.603 mL/Min [facility] Creatinine Clearance (Chem N/A [facility] Nucleated erythrocytes [Pres ence] in Blood by Automated countOrdered By: Lolita Adorno on 04-30-2023 Nucleated RBC Auto Ql (Bld) 0.1 /100{WBC} 0-0.5 [facility] Platelet mean volume Auto (B ld) [Entitic vol]Ordered By: Lolita Adorno on 04-30-2023 Platelet mean volume (Bld) [Entitic vol] 8.2 fL 6.6-10.1 [facility] Platelets Auto (Bld) [#/Vol] Ordered By: Lolita Adorno on 04-30-2023 Platelets (Bld) [#/Vol] 185 10*3/uL 150-450 [facility] Potassium [Moles/volume] in Serum or PlasmaOrdered By: Lolita Adorno on 04-30-2023 Potassium [Moles/Vol] 4.5 mmol/L 3.5-5.1 [facility] Protein [Mass/volume] in Ser um or PlasmaOrdered By: Lolita Adorno on 04-30-2023 Protein [Mass/Vol] 6.3 g/dL 6.4-8.9 [facility] RBC Auto (Bld) [#/Vol]Ordere d By: Lolita Adorno on 04-30-2023 RBC (Bld) [#/Vol] 4.32 10*6/uL 3.90-5.60 [facility] Serum or plasma albumin/glob ulin mass ratioOrdered By: Lolita Adorno on 04-30-2023 Albumin/Globulin [Mass ratio] 1.9 {ratio} [facility] Serum or plasma anion gap de terminationOrdered By: Lolita Adorno on 04-30-2023 Anion gap [Moles/Vol] 11.1 mmol/L 6.0-15.0 [facility] Serum or plasma high density lipoprotein (HDL) cholesterol measurementOrdered By: Lolita Adorno on 04-30-2023 Cholesterol in HDL [Mass/Vol] 32 mg/dL 23-92 [facility] Comment on above: HDL CHOL ATP-III CLA SSIFICATION Cardiovascular RiskHDL > or equal to 60 mg/dL LOWHDL < 40 mg/dL HIGH Serum or plasma total choles terol/high density lipoprotein (HDL) cholesterol mass ratOrdered By: Lolita Adorno on 04-30-2023 Cholesterol.total/Flavia sterol in HDL [Mass ratio] 3.6 {ratio} <5.0 [facility] Sodium [Moles/volume] in Ser um or PlasmaOrdered By: oLlita Adorno on 04-30-2023 Sodium [Moles/Vol] 142 mmol/L 136-145 [facility] Transferrin [Mass/volume] in Serum or PlasmaOrdered By: Lolita Adorno on 04-30-2023 Transferrin [Mass/Vol] 209 mg/dL 203-362 [facility] Triglyceride [Mass/volume] i n Serum or PlasmaOrdered By: Lolita Adorno on 04-30-2023 Triglyceride [Mass/Vol] 202 mg/dL 0-149 [facility] Comment on above: TRIG ATP III CLASSIF ICATIONTRIG less than 150 mg/dL NormalTRIG 150-199 mg/dL Borderline highTRIG 200-500 mg/dL High TRIG greater than 500 mg/dL Very highStandard traceable to the Center for Disease Conrtrol and Prevention (CDC) test method. Urea nitrogen [Mass/volume] in Serum or PlasmaOrdered By: Lolita Adorno on 04-30-2023 Urea nitrogen [Mass/Vol] 29 mg/dL 7- [facility] Vitamin B12 ser/plasOrdered By: Lolita Adorno on 04-30-2023 Cobalamin (Vitamin B12) [Mass/Vol] 1086 pg/mL 180-914 [facility] WBC Auto (Bld) [#/Vol]Ordere d By: Lolita Adorno on 04-30-2023 WBC (Bld) [#/Vol] 7.1 10*3/uL 4.1-10.5 [facility] Office Visit (Cardiology)on 04-22-2023 Follow-up visit Diagnoses/Problems Assessed 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of [place] coronary artery of [place] heart without angina pectoris (414.01) (I25.10) S/P PTCA (percutaneous transluminal coronary angioplasty) (V45.82) (Z98.61) 2017 RCA History of IA (myocardial infarction) (412) (I25.2) Essential hypertension (401.9) (I10) Hyperlipidemia (272.4) (E78.5) Diabetes mellitus (250.00) (E11.9) Stage 3a chronic kidney disease (585.3) (N18.31) Current some day smoker (305.1) (F17.200) 1 pack every 2 weeks Overweight with body mass index (BMI) of 26 to 26.9 in adult (278.02,V85.22) (E66.3,Z68.26) At risk for falls (V15.88) (Z91.81) Orders 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of [place] coronary artery of [place] heart without angina pectoris Changed: From Aspirin EC 81 MG TBEC TAKE 1 TABLET DAILY DIRECTED To Aspirin 81 MG Oral Tablet Delayed Release TAKE 1 TABLET DAILY Essential hypertension Renew: hydrALAZINE HCl - 50 MG Oral Tablet; TAKE 1 TABLET TWICE DAILY Overweight with body mass index (BMI) of 26 to 26.9 in adult Healthy Weight Tips; Status:Complete - Retrospective Authorization; Done: [id number] Some eating tips that can help you lose weight.; Status:Complete - Retrospective Authorization; Done: [id number] SocHx: Current some day smoker You need to stop smoking. Though it is not easy, more than half of all adult smokers have quit. We encourage you to write down all the reasons you should quit smoking and set a quit date for yourself. Ask us how we can help. You may also call 5-843-XPMA-NOW for free resources and assistance.; Status:Complete - Retrospective Authorization; Done: [id number] Tobacco Use Screening; Status:Complete; Done: [id number] Patient Instructions Please bring all medicines, vitamins, [...] in 6 months Same meds Chief Complaint GAGE LUGO is being seen [...] Oral TabletTAK (more content not included)... Normal [employer] Tobacco Screening.on 023 Fall risk assessment b) One or more fall s in the last year [facility] 250 DO Work Phone: Tobacco use status [facility] a) Yes [facility] 250 DO Work Phone: Tobacco Screening. Yes [facility] 250 DO Work Phone: Alanine aminotransferase [En zymatic activity/volume] in Serum or PlasmaOrdered By: Gabriela Florian on 04-15-2023 ALT [Catalytic activity/Vol] 19 U/L 7-52 [facility] Aspartate aminotransferase [ Enzymatic activity/volume] in Serum or PlasmaOrdered By: Gabriela Florian on 04-15-2023 AST [Catalytic activity/Vol] 19 U/L 13-39 [facility] Basophils Auto (Bld) [#/Vol] Ordered By: Gabriela Florian on 04-15-2023 Basophils (Bld) [#/Vol] 0.0 10*3/uL 0.0-0.2 [facility] Basophils/100 WBC Auto (Bld) Ordered By: Gabriela Florian on 04-15-2023 Basophils/100 WBC (Bld) 0.6 % . [facility] Calcium [Mass/volume] in Ser um or PlasmaOrdered By: Gabriela Florian on 04-15-2023 Calcium [Mass/Vol] 9.1 mg/dL 8.6-10.3 [facility] Carbon dioxide, total [Moles /volume] in Serum or PlasmaOrdered By: Gabriela Florian on 04-15-2023 CO2 [Moles/Vol] 26.2 mmol/L 21.0-31.0 [facility] Chloride [Moles/volume] in S antolin or PlasmaOrdered By: Gabriela Florian on 04-15-2023 Chloride [Moles/Vol] 109 mmol/L 98-107 [facility] Cholesterol [Mass/volume] in Serum or PlasmaOrdered By: Gabriela Florian on 04-15-2023 Cholesterol [Mass/Vol] 104 mg/dL 140-200 [facility] Comment on above: Chol less than 200 m g/dl low riskChol 201-239 mg/dl borderline riskChol 240 mg/dl and greater high risk Cholesterol in LDL Calc [Mas s/Vol]Ordered By: Gabriela Florian on 04-15-2023 Cholesterol in LDL [Mass/Vol] 43 mg/dL 0-100 [facility] Comment on above: LDL ATP III CLASSIFI CATIONLDL less than 100 mg/dL OptimalLDL 100-129 mg/dL Near or above optimalLDL 130-159 mg/dL Borderline highLDL 160-189 mg/dL HighLDL greater than 189 mg/dL Very high Cholesterol in VLDL Calc [Ma ss/Vol]Ordered By: Gabriela Florian on 04-15-2023 Cholesterol in VLDL [Mass/Vol] 30 mg/dL [facility] Creatinine [Mass/volume] in Serum or PlasmaOrdered By: Gabriela Florian on 04-15-2023 Creatinine [Mass/Vol] 1.71 mg/dL 0.70-1.30 [facility] Eosinophils Auto (Bld) [#/Vo l]Ordered By: Gabriela Florian on 04-15-2023 Eosinophils (Bld) [#/Vol] 0.3 10*3/uL 0.0-0.45 [facility] Eosinophils/100 WBC Auto (Bl d)Ordered By: Gabriela Florian on 04-15-2023 Eosinophils/100 WBC (Bld) 4.2 % . [facility] Erythrocyte distribution wid th Auto (RBC) [Ratio]Ordered By: Gabriela Florian on 04-15-2023 Erythrocyte distribution width (RBC) [Ratio] 13.9 % 12.0-14.8 [facility] Glucose [Mass/volume] in Ser um or PlasmaOrdered By: Gabriela Florian on 04-15-2023 Glucose [Mass/Vol] 141 mg/dL 70-100 [facility] Comment on above: ADA recommended refe rence rangeRandom Glucose Reference Range is dependent on time and content of last meal. Glucose of more than 200 mg/dL in a nonstressed, ambulatory subject supports the diagnosis of Diabetes Mellitus. Hematocrit Auto (Bld) [Volum e fraction]Ordered By: Gabriela Florian on 04-15-2023 Hematocrit (Bld) [Volume fraction] 35.7 % 38.8-50.0 [facility] Hemoglobin [Mass/volume] in BloodOrdered By: Gabriela Florian on 04-15-2023 Hemoglobin (Bld) [Mass/Vol] 11.8 g/dL 13.0-17.0 [facility] Laboratory - Chemistry and C hemistry - challengeon 04-15-2023 Cholesterol [Mass/Vol] 104\S\104 below low threshold 140-200 -[facility] 600 DO Work Phone: Comment on above: Chol less than 200 m g/dl low risk Chol 201-239 mg/dl borderline risk Chol 240 mg/dl and greater high risk Cholesterol in LDL [Mass/Vol] 43\S\43 Normal 0-100 -[facility] 600 DO Work Phone: Comment on [...] RBC Auto (Bld) [#/Vol] 8.2 10*3/uL 4.1-10.5 [facility] Lymphocytes Auto (Bld) [#/Vo l]Ordered By: Gabriela Florian on 04-15-2023 Lymphocytes (Bld) [#/Vol] 1.6 10*3/uL 1.00-4.8 [facility] Lymphocytes/100 WBC Auto (Bl d)Ordered By: Gabriela Florian on 04-15-2023 Lymphocytes/100 WBC (Bld) 19.9 % . [facility] MCH Auto (RBC) [Entitic mass ]Ordered By: Gabriela Florian on 04-15-2023 MCH (RBC) [Entitic mass] 27.6 pg 27.5-35.2 [facility] MCHC Auto (RBC) [Mass/Vol]Or dered By: Gabriela Florian on 04-15-2023 MCHC (RBC) [Mass/Vol] 33.0 g/dL 32.5-35.6 [facility] MCV Auto (RBC) [Entitic vol] Ordered By: Gabriela Florian on 04-15-2023 MCV (RBC) [Entitic vol] 83.6 fL 83.5-101 [facility] Monocytes Auto (Bld) [#/Vol] Ordered By: Gabriela Florian on 04-15-2023 Monocytes (Bld) [#/Vol] 0.9 10*3/uL 0.0-0.8 [facility] Monocytes/100 WBC Auto (Bld) Ordered By: Gabriela Florian on 04-15-2023 Monocytes/100 WBC (Bld) 10.4 % . [facility] Neutrophils Auto (Bld) [#/Vo l]Ordered By: Gabrieal Florian on 04-15-2023 Neutrophils (Bld) [#/Vol] 5.3 10*3/uL 1.8-7.7 [facility] Neutrophils/100 WBC Auto (Bl d)Ordered By: Gabriela Florian on 04-15-2023 Neutrophils/100 WBC (Bld) 64.9 % . [facility] No Panel InformationOrdered By: Gabriela Florian on 04-15-2023 Estimated GFR (CKD-EPI) 41.746 mL/Min [facility]acy Creatinine Clearance (Chem N/A [facility] No Panel Informationon 04-15 64.9\S\64.9 Normal . [facility] 600 DO Work Phone: 8.8\S\8.8 Normal 6.6-10.1 [facility] 600 DO Work Phone: 165\S\165 Normal 150-450 -[facility] 600 DO Work Phone: 13.9\S\13.9 Normal 12.0-14.8 -[facility] 600 DO Work Phone: 33.0\S\33.0 Normal 32.5-35.6 -[facility] 600 DO Work Phone: 27.6\S\27.6 Normal 27.5-35.2 -[facility] 600 DO Work Phone: 5.3\S\5.3 Normal 1.8-7.7 -[facility] 600 DO Work Phone: 0.0\S\0.0 Normal 0.0-0.2 -[facility] 600 DO Work Phone: Comment on above: PERFORMED BY:[place] [address] [place] [place], [place] [phone] MEDICAL DIRECTORLAZARUS MILLER M.D. 0.6\S\0.6 Normal . [facility] 600 DO Work Phone: 4.2\S\4.2 Normal . -[facility] 600 DO Work Phone: 10.4\S\10.4 Normal . [facility] 600 DO Work Phone: 19.9\S\19.9 Normal . [facility] 600 DO Work Phone: 0.3\S\0.3 Normal 0.0-0.45 -[facility] 600 DO Work Phone: 0.9\S\0.9 above high threshold 0.0-0.8 -[facility] 600 DO Work Phone: 1.6\S\1.6 Normal 1.00-4.8 [facility] 600 DO Work Phone: 83.6\S\83.6 Normal 83.5-101 -[facility] 600 DO Work Phone: 35.7\S\35.7 below low threshold 38.8-50.0 [facility] 600 DO Work Phone: 11.8\S\11.8 below low threshold 13.0-17.0 [facility] 600 DO Work Phone: 4.27\S\4.27 Normal 3.90-5.60 [facility] 600 DO Work Phone: 8.2\S\8.2 Normal 4.1-10.5 [facility] 600 DO Work Phone: 41.746\S\41.746 Normal [facility] 600 DO Work Phone: 10.2\S\10.2 Normal 6.0-15.0 [facility] 600 DO Work Phone: 9.1\S\9.1 Normal 8.6-10.3 [facility] 600 DO Work Phone: 26.2\S\26.2 Normal 21.0-31.0 [facility] 600 DO Work Phone: 109\S\109 above high threshold 98-107 -[facility] [employer] 600 DO Work Phone: 5.4\S\5.4 above high threshold 3.5-5.1 -[facility] 600 DO Work Phone: [phone] 140\S\140 Normal 136-145 [facility] [employer] DO Work Phone: 1.71\S\1.71 above high threshold 0.70-1.30 [facility] [employer] DO Work Phone: 33\S\33 above high threshold 7-25 [facility] [employer] DO Work Phone: 141\S\141 above high threshold 70-100 [facility] [employer] DO Work Phone: Comment on above: Random Glucose Refer ence Range is dependent on time and content of last meal. Glucose of more than 200 mg/dL in a nonstressed, ambulatory subject supports the diagnosis of Diabetes Mellitus. ADA recommended reference range 19\S\19 Normal 7-52 [facility] [employer] DO Work Phone: 3.5\S\3.5 Normal <5.0 [facility] [employer] DO Work Phone: Comment on above: PERFORMED BY:[address] [place], [place] [phone] MEDICAL DIRECTORLAZARUS MILLER M.D. 30\S\30 Normal 23-92 [facility] [employer] DO Work Phone: Comment on above: HDL CHOL ATP-III CLA SSIFICATION Cardiovascular Risk HDL > or equal to 60 mg/dL LOW HDL < 40 mg/dL HIGH 154\S\154 above high threshold 0-149 [facility] [employer] DO Work Phone: Comment on above: TRIG [...] RBC Auto Ql (Bld) 0.0 /100{WBC} 0-0.5 [facility] Platelet mean volume Auto (B ld) [Entitic vol]Ordered By: Gabriela Florian on 04-15-2023 Platelet mean volume (Bld) [Entitic vol] 8.8 fL 6.6-10.1 [facility] Platelets Auto (Bld) [#/Vol] Ordered By: Gabriela Florian on 04-15-2023 Platelets (Bld) [#/Vol] 165 10*3/uL 150-450 [facility] Potassium [Moles/volume] in Serum or PlasmaOrdered By: Gabriela Florian on 04-15-2023 Potassium [Moles/Vol] 5.4 mmol/L 3.5-5.1 [facility] RBC Auto (Bld) [#/Vol]Ordere d By: Gabriela Florian on 04-15-2023 RBC (Bld) [#/Vol] 4.27 10*6/uL 3.90-5.60 [facility] Serum or plasma anion gap de terminationOrdered By: Gabriela Florian on 04-15-2023 Anion gap [Moles/Vol] 10.2 mmol/L 6.0-15.0 [facility] Serum or plasma high density lipoprotein (HDL) cholesterol measurementOrdered By: Gabriela Florian on 04-15-2023 Cholesterol in HDL [Mass/Vol] 30 mg/dL 23-92 [facility] Comment on above: HDL CHOL ATP-III CLA SSIFICATION Cardiovascular RiskHDL > or equal to 60 mg/dL LOWHDL < 40 mg/dL HIGH Serum or plasma total choles terol/high density lipoprotein (HDL) cholesterol mass ratOrdered By: Gabriela Florian on 04-15-2023 Cholesterol.total/Flavia sterol in HDL [Mass ratio] 3.5 {ratio} <5.0 [facility] Sodium [Moles/volume] in Ser um or PlasmaOrdered By: Gabriela Florian on 04-15-2023 Sodium [Moles/Vol] 140 mmol/L 136-145 [facility] Triglyceride [Mass/volume] i n Serum or PlasmaOrdered By: Gabriela Florian on 04-15-2023 Triglyceride [Mass/Vol] 154 mg/dL 0-149 [facility] Comment on above: TRIG ATP III CLASSIF ICATIONTRIG less than 150 mg/dL NormalTRIG 150-199 mg/dL Borderline highTRIG 200-500 mg/dL High TRIG greater than 500 mg/dL Very highStandard traceable to the Center for Disease Conrtrol and Prevention (CDC) test method. Urea nitrogen [Mass/volume] in Serum or PlasmaOrdered By: Gabriela Florian on 04-15-2023 Urea nitrogen [Mass/Vol] 33 mg/dL 7-25 [facility] WBC Auto (Bld) [#/Vol]Ordere d By: Gabriela Florian on 04-15-2023 WBC (Bld) [#/Vol] 8.2 10*3/uL 4.1-10.5 [facility] Office Visit (Cardiology)on 10-16-2022 Follow-up visit Diagnoses/Problems Assessed 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of [place] coronary artery of [place] heart without angina pectoris (414.01) (I25.10) Hyperlipidemia (272.4) (E78.5) S/P PTCA (percutaneous transluminal coronary angioplasty) (V45.82) (Z98.61) 2017 RCA History of IA (myocardial infarction) (412) (I25.2) Essential hypertension (401.9) (I10) Stage 3a chronic kidney disease (585.3) (N18.31) Diabetes mellitus (250.00) (E11.9) Current some day smoker (305.1) (F17.200) 1 pack every 2 weeks Overweight with body mass index (BMI) of 27 to 27.9 in adult (278.02,V85.23) (E66.3,Z68.27) Orders 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of [place] coronary artery of [place] heart without angina pectoris Renew: Aspirin EC 81 MG Oral Tablet Delayed Release; TAKE 1 TABLET DAILY DIRECTED 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of [place] coronary artery of [place] heart without angina pectoris, Essential hypertension, History of IA (myocardial infarction), Hyperlipidemia, S/P PTCA (percutaneous transluminal coronary angioplasty) ALT - Alanine Aminotransferase, Serum; Status:Active - Retrospective Authorization; Requested for:15Apr2023; AST; Status:Active - Retrospective Authorization; Requested for:15Apr2023; Basic Metabolic Panel; Status:Active - Retrospective Authorization; Requested for:15Apr2023; Complete Blood Count; Status:Active - Retrospective Authorization; Requested for:15Apr2023; Lipid Panel; Status:Active - Retrospective Authorization; Requested for:15Apr2023; 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of [place] coronary artery of [place] heart without angina pectoris, Hyperlipidemia Renew: Atorvastatin [...] we can help. You may also call [phone] for free resources and assistance.; Status:Complete - [...] lumbar spinal surgery by Dr. Miller at [facility] with no complication he continues to wear [...] MG Ora (more content not included)... Normal [employer] Tobacco Screening.on 023 Adult depression screening assessment No [facility] 250 DO Work Phone: Fall risk assessment a) No falls within the last year [facility] [employer] [facility] 250 DO Work Phone: Tobacco use status CPHS b) No M [facility] [employer] 250 DO Work Phone: Creatinine and Glomerular fi ltration rate.predicted panel (S/P/Bld)Ordered By: Roberto Cullen on 10-06-2022 Creatinine [Mass/Vol] 1.57 mg/dL 0.64-1.27 [facility] Estimated glomerular filtrat ion rate (GFR) non- AmericanOrdered By: Roberto Cullen on 10-06-2022 GFR/1.73 sq M.predicted among non-blacks MDRD (S/P/Bld) [Vol rate/Area] 44 mL/Min [facility] Glucose Glucometer (BldC) [M ass/Vol]Ordered By: Clemente Miller on 10-06-2022 Glucose [Mass/Vol] 163 mg/dL [facility] Comment on above: Random Glucose Refer ence Range is dependent on time and content of last meal. Glucose of more than 200 mg/dL in a nonstressed, ambulatory subject supports the diagnosis of Diabetes Mellitus. No Panel InformationOrdered By: Roberto Cullen on 10-06-2022 Estimated GFR () 53 mL/Min [facility] Comment on above: GFR estimated refere nce range: According to KDOQI guidelines, <60 ml/min/1.73m2 is sufficient to diagnose a patient with chronic kidney disease. Pharmacy Creatinine Clearance (Chem 38.38 [facility] No Panel InformationOrdered By: Clemente Miller on 10-06-2022 Bedside Glucose Comment Glu2: cleaned meter [facility] Serum or plasma anion gap de terminationOrdered By: Roberto Cullen on 10-06-2022 Anion gap [Moles/Vol] 11.2 mmol/L 6.0-15.0 [facility] Serum or plasma calcium kirk urement (mass/volume)Ordered By: Roberto Cullen on 10-06-2022 Calcium [Mass/Vol] 8.5 mg/dL 8.2-10.2 [facility] Serum or plasma chloride tammy surement (moles/volume)Ordered By: Roberto Cullen on 10-06-2022 Chloride [Moles/Vol] 105 mmol/L 95-114 [facility] Serum or plasma glucose kirk urement (mass/volume)Ordered By: Roberto Cullen on 10-06-2022 Glucose [Mass/Vol] 114 mg/dL 70-100 [facility] Comment on above: ADA recommended refe rence rangeRandom Glucose Reference Range is dependent on time and content of last meal. Glucose of more than 200 mg/dL in a nonstressed, ambulatory subject supports the diagnosis of Diabetes Mellitus. Serum or plasma potassium me asurement (moles/volume)Ordered By: Roberto Cullen on 10-06-2022 Potassium [Moles/Vol] 4.0 mmol/L 3.5-5.1 [facility] Serum or plasma sodium measu rement (moles/volume)Ordered By: Roberto Cullen on 10-06-2022 Sodium [Moles/Vol] 135 mmol/L 136-146 [facility] Serum or plasma total carbon dioxide measurement (moles/volume)Ordered By: Roberto Cullen on 10-06-2022 CO2 [Moles/Vol] 22.8 mmol/L 22.0-30.0 [facility] Serum or plasma urea nitroge n measurement (mass/volume)Ordered By: Roberto Cullen on 10-06-2022 Urea nitrogen [Mass/Vol] 49 mg/dL 9-23 [facility] Basophils Auto (Bld) [#/Vol] Ordered By: Kali Isaac on 10-04-2022 Basophils (Bld) [#/Vol] 0.0 10*3/uL 0.0-0.2 [facility] Basophils/100 WBC Auto (Bld) Ordered By: Kali Isaac on 10-04-2022 Basophils/100 WBC (Bld) 0.2 % . [facility] Eosinophils Auto (Bld) [#/Vo l]Ordered By: Kali Isaac on 10-04-2022 Eosinophils (Bld) [#/Vol] 0.0 10*3/uL 0.0-0.45 [facility] Eosinophils/100 WBC Auto (Bl d)Ordered By: Kali Isaac on 10-04-2022 Eosinophils/100 WBC (Bld) 0.0 % . [facility] Erythrocyte distribution wid th Auto (RBC) [Ratio]Ordered By: Kali Isaac on 10-04-2022 Erythrocyte distribution width (RBC) [Ratio] 13.3 % 12.0-14.8 [facility] Hematocrit Auto (Bld) [Volum e fraction]Ordered By: Kali Isaac on 10-04-2022 Hematocrit (Bld) [Volume fraction] 34.3 % 38.8-50.0 [facility] Hemoglobin [Mass/volume] in BloodOrdered By: Kali Isaac on 10-04-2022 Hemoglobin (Bld) [Mass/Vol] 11.3 g/dL 13.0-17.0 [facility] Laboratory - Chemistry and C hemistry - challengeOrdered By: Kali Isaac on 10-04-2022 Magnesium [Mass/Vol] 2.2 mg/dL 1.6-2.6 [facility] Leukocytes [#/volume] correc ruben for nucleated erythrocytes in Blood by Automated counOrdered By: Kali Isaac on 10-04-2022 WBC corrected for nucl RBC Auto (Bld) [#/Vol] 16.0 10*3/uL 4.1-10.5 [facility] Lymphocytes Auto (Bld) [#/Vo l]Ordered By: Kali Isaac on 10-04-2022 Lymphocytes (Bld) [#/Vol] 1.0 10*3/uL 1.00-4.8 [facility] Lymphocytes/100 WBC Auto (Bl d)Ordered By: Kali Isaac on 10-04-2022 Lymphocytes/100 WBC (Bld) 6.1 % . [facility] MCH Auto (RBC) [Entitic mass ]Ordered By: Kali Isaac on 10-04-2022 MCH (RBC) [Entitic mass] 28.1 pg 27.5-35.2 [facility] MCHC Auto (RBC) [Mass/Vol]Or dered By: Kali Isaac on 10-04-2022 MCHC (RBC) [Mass/Vol] 33.0 g/dL 32.5-35.6 [facility] MCV Auto (RBC) [Entitic vol] Ordered By: Kali Isaac on 10-04-2022 MCV (RBC) [Entitic vol] 85.3 fL 83.5-101 [facility] Monocytes Auto (Bld) [#/Vol] Ordered By: Kali Isaac on 10-04-2022 Monocytes (Bld) [#/Vol] 1.1 10*3/uL 0.0-0.8 [facility] Monocytes/100 WBC Auto (Bld) Ordered By: Kali Isaac on 10-04-2022 Monocytes/100 WBC (Bld) 6.6 % . [facility] Neutrophils Auto (Bld) [#/Vo l]Ordered By: Kali Isaac on 10-04-2022 Neutrophils (Bld) [#/Vol] 14.0 10*3/uL 1.8-7.7 [facility] Neutrophils/100 WBC Auto (Bl d)Ordered By: Kali Yam on 10-04-2022 Neutrophils/100 WBC (Bld) 87.1 % . [facility] Nucleated erythrocytes [Pres ence] in Blood by Automated countOrdered By: Kali Isaac on 10-04-2022 Nucleated RBC Auto Ql (Bld) 0.0 /100{WBC} 0-0.5 [facility] Platelet mean volume Auto (B ld) [Entitic vol]Ordered By: Kali Isaac on 10-04-2022 Platelet mean volume (Bld) [Entitic vol] 8.3 fL 6.6-10.1 [facility] Platelets Auto (Bld) [#/Vol] Ordered By: Kali Isaac on 10-04-2022 Platelets (Bld) [#/Vol] 159 10*3/uL 150-450 [facility] RBC Auto (Bld) [#/Vol]Ordere d By: Kali Yam on 10-04-2022 RBC (Bld) [#/Vol] 4.03 10*6/uL 3.90-5.60 [facility] WBC Auto (Bld) [#/Vol]Ordere d By: Kali Yam on 10-04-2022 WBC (Bld) [#/Vol] 16.0 10*3/uL 4.1-10.5 [facility] Glucose mean value [Mass/vol ume] in Blood Estimated from glycated hemoglobinOrdered By: Kali Isaac on 10-03-2022 Average glucose Estimated from glycated hemoglobin (Bld) [Mass/Vol] 154 mg/dL [facility] Hemoglobin A1c percentageOrd ered By: Kali Isaac on 10-03-2022 HbA1c (Bld) [Mass fraction] 7.0 % 4.3-5.6 [facility] Comment on above: Increased risk for d iabetes: 5.7 - 6.4diabetes: >6.4glycemic control for adults with diabetes: <7.0 COVID-19 SOFIAOrdered By: Ag Johnson on 10-01-2022 SARS-CoV+SARS-CoV-2 (COVID-19) Ag IA.rapid Ql (Resp) Negative Negative [facility] Comment on above: This is a duplicate Yelena SARS Antigen (SALIMA) result to be used for statistical tracking purpose only. No Panel InformationOrdered By: Clemente Miller on 10-01-2022 SARS Antigen (LFIA) [facility] Basophils Auto (Bld) [#/Vol] Ordered By: Clemente Miller on 09-18-2022 Basophils (Bld) [#/Vol] 0.0 10*3/uL 0.0-0.2 [facility] Basophils/100 WBC Auto (Bld) Ordered By: Clemente Miller on 09-18-2022 Basophils/100 WBC (Bld) 0.3 % . [facility] Creatinine and Glomerular fi ltration rate.predicted panel (S/P/Bld)Ordered By: Clemente Miller on 09-18-2022 Creatinine [Mass/Vol] 1.41 mg/dL 0.64-1.27 [facility] Eosinophils Auto (Bld) [#/Vo l]Ordered By: Clemente Miller on 09-18-2022 Eosinophils (Bld) [#/Vol] 0.2 10*3/uL 0.0-0.45 [facility] Eosinophils/100 WBC Auto (Bl d)Ordered By: Clemente Miller on 09-18-2022 Eosinophils/100 WBC (Bld) 3.0 % . [facility] Erythrocyte distribution wid th Auto (RBC) [Ratio]Ordered By: Clemente Miller on 09-18-2022 Erythrocyte distribution width (RBC) [Ratio] 13.5 % 12.0-14.8 [facility] Estimated glomerular filtrat ion rate (GFR) non- AmericanOrdered By: Clemente Miller on 09-18-2022 GFR/1.73 sq M.predicted among non-blacks MDRD (S/P/Bld) [Vol rate/Area] 49 mL/Min [facility] Hematocrit Auto (Bld) [Volum e fraction]Ordered By: Clemente Miller on 09-18-2022 Hematocrit (Bld) [Volume fraction] 40.4 % 38.8-50.0 [facility] Hemoglobin [Mass/volume] in BloodOrdered By: Clemente Miller on 09-18-2022 Hemoglobin (Bld) [Mass/Vol] 13.2 g/dL 13.0-17.0 [facility] Leukocytes [#/volume] correc ruben for nucleated erythrocytes in Blood by Automated counOrdered By: Clemente Miller on 09-18-2022 WBC corrected for nucl RBC Auto (Bld) [#/Vol] 7.4 10*3/uL 4.1-10.5 [facility] Lymphocytes Auto (Bld) [#/Vo l]Ordered By: Clemente Miller on 09-18-2022 Lymphocytes (Bld) [#/Vol] 1.9 10*3/uL 1.00-4.8 [facility] Lymphocytes/100 WBC Auto (Bl d)Ordered By: Clemente Miller on 09-18-2022 Lymphocytes/100 WBC (Bld) 26.3 % . [facility] MCH Auto (RBC) [Entitic mass ]Ordered By: Clemente Miller on 09-18-2022 MCH (RBC) [Entitic mass] 28.0 pg 27.5-35.2 [facility] MCHC Auto (RBC) [Mass/Vol]Or dered By: Clemente Miller on 09-18-2022 MCHC (RBC) [Mass/Vol] 32.8 g/dL 32.5-35.6 [facility] MCV Auto (RBC) [Entitic vol] Ordered By: Clemente Miller on 09-18-2022 MCV (RBC) [Entitic vol] 85.4 fL 83.5-101 [facility] Monocytes Auto (Bld) [#/Vol] Ordered By: Clemente Miller on 09-18-2022 Monocytes (Bld) [#/Vol] 0.8 10*3/uL 0.0-0.8 [facility] Monocytes/100 WBC Auto (Bld) Ordered By: Clemente Miller on 09-18-2022 Monocytes/100 WBC (Bld) 10.7 % . [facility] Neutrophils Auto (Bld) [#/Vo l]Ordered By: Clemente Miller on 09-18-2022 Neutrophils (Bld) [#/Vol] 4.4 10*3/uL 1.8-7.7 [facility] Neutrophils/100 WBC Auto (Bl d)Ordered By: Clemente Miller on 09-18-2022 Neutrophils/100 WBC (Bld) 59.7 % . [facility] No Panel InformationOrdered By: Clemente Miller on 09-18-2022 Estimated GFR () 60 mL/Min [facility] Comment on above: GFR estimated refere nce range: According to KDOQI guidelines, <60 ml/min/1.73m2 is sufficient to diagnose a patient with chronic kidney disease. Pharmacy Creatinine Clearance (Chem N/A [facility] Nucleated erythrocytes [Pres ence] in Blood by Automated countOrdered By: Clemente Miller on 09-18-2022 Nucleated RBC Auto Ql (Bld) 0.1 /100{WBC} 0-0.5 [facility] Platelet mean volume Auto (B ld) [Entitic vol]Ordered By: Clemente Miller on 09-18-2022 Platelet mean volume (Bld) [Entitic vol] 8.5 fL 6.6-10.1 [facility] Platelets Auto (Bld) [#/Vol] Ordered By: Clemente Miller on 09-18-2022 Platelets (Bld) [#/Vol] 184 10*3/uL 150-450 [facility] RBC Auto (Bld) [#/Vol]Ordere d By: Clemente Miller on 09-18-2022 RBC (Bld) [#/Vol] 4.73 10*6/uL 3.90-5.60 [facility] Serum or plasma anion gap de terminationOrdered By: Clemente Miller on 09-18-2022 Anion gap [Moles/Vol] 17.5 mmol/L 6.0-15.0 [facility] Serum or plasma calcium kirk urement (mass/volume)Ordered By: Clemente Miller on 09-18-2022 Calcium [Mass/Vol] 9.2 mg/dL 8.2-10.2 [facility] Serum or plasma chloride tammy surement (moles/volume)Ordered By: Clemente Miller on 09-18-2022 Chloride [Moles/Vol] 102 mmol/L 95-114 [facility] Serum or plasma glucose kirk urement (mass/volume)Ordered By: Clemente Miller on 09-18-2022 Glucose [Mass/Vol] 130 mg/dL 70-100 [facility] Comment on above: ADA recommended refe rence rangeRandom Glucose Reference Range is dependent on time and content of last meal. Glucose of more than 200 mg/dL in a nonstressed, ambulatory subject supports the diagnosis of Diabetes Mellitus. Serum or plasma potassium me asurement (moles/volume)Ordered By: Clemente Miller on 09-18-2022 Potassium [Moles/Vol] 4.6 mmol/L 3.5-5.1 [facility] Serum or plasma sodium measu rement (moles/volume)Ordered By: Clemente Miller on 09-18-2022 Sodium [Moles/Vol] 139 mmol/L 136-146 [facility] Serum or plasma total carbon dioxide measurement (moles/volume)Ordered By: Clemente Miller on 09-18-2022 CO2 [Moles/Vol] 24.1 mmol/L 22.0-30.0 [facility] Serum or plasma urea nitroge n measurement (mass/volume)Ordered By: Clemente Miller on 09-18-2022 Urea nitrogen [Mass/Vol] 17 mg/dL 9-23 [facility] WBC Auto (Bld) [#/Vol]Ordere d By: Clemente Miller on 09-18-2022 WBC (Bld) [#/Vol] 7.4 10*3/uL 4.1-10.5 [facility] A1C HEMOGLOBINon 08-19-2022 HbA1c (Bld) [Mass fraction] 6.5 % [facility] [employer] Other HbA1c (Bld) [Mass fraction]o n 08-19-2022 A1C HEMOGLOBIN [facility] [employer] Other Basophils Auto (Bld) [#/Vol] Ordered By: Lolita Adorno on 05-15-2022 Basophils (Bld) [#/Vol] 0.0 10*3/uL 0.0-0.2 [facility] Basophils/100 WBC Auto (Bld) Ordered By: Lolita Adorno on 05-15-2022 Basophils/100 WBC (Bld) 0.6 % . [facility] Blood hemoglobin measurement (mass/volume)Ordered By: Lolita Adorno on 05-15-2022 Hemoglobin (Bld) [Mass/Vol] 13.3 g/dL 13.0-17.0 [facility] Blood leukocytes automated c ount (number/volume)Ordered By: Lolita Adorno on 05-15-2022 WBC (Bld) [#/Vol] 8.3 10*3/uL 4.5-11.0 [facility] Body fluid albumin measureme nt (mass/volume)Ordered By: Lolita Adorno on 05-15-2022 Albumin (Body fld) [Mass/Vol] 4.1 g/dL 3.2-5.5 [facility] Cholesterol [Mass/volume] in Serum or PlasmaOrdered By: Lolita Adorno on 05-15-2022 Cholesterol [Mass/Vol] 102 mg/dL 140-200 [facility] Comment on above: Chol less than 200 m g/dl low riskChol 201-239 mg/dl borderline riskChol 240 mg/dl and greater high risk Cholesterol in LDL Calc [Mas s/Vol]Ordered By: Lolita Adorno on 05-15-2022 Cholesterol in LDL [Mass/Vol] 45 mg/dL 0-100 [facility] Comment on above: LDL ATP III CLASSIFI CATIONLDL less than 100 mg/dL OptimalLDL 100-129 mg/dL Near or above optimalLDL 130-159 mg/dL Borderline highLDL 160-189 mg/dL HighLDL greater than 189 mg/dL Very high Cholesterol in VLDL Calc [Ma ss/Vol]Ordered By: Lolita Adorno on 05-15-2022 Cholesterol in VLDL [Mass/Vol] 24 mg/dL [facility] Creatinine and Glomerular fi ltration rate.predicted panel (S/P/Bld)Ordered By: Lolita Adorno on 05-15-2022 Creatinine [Mass/Vol] 1.46 mg/dL 0.64-1.27 [facility] Eosinophils Auto (Bld) [#/Vo l]Ordered By: Lolita Adorno on 05-15-2022 Eosinophils (Bld) [#/Vol] 0.3 10*3/uL 0.0-0.45 [facility] Eosinophils/100 WBC Auto (Bl d)Ordered By: Lolita Adorno on 05-15-2022 Eosinophils/100 WBC (Bld) 3.5 % . [facility] Erythrocyte distribution wid th Auto (RBC) [Ratio]Ordered By: Lolita Adorno on 05-15-2022 Erythrocyte distribution width (RBC) [Ratio] 13.4 % 12.0-14.8 [facility] Estimated glomerular filtrat ion rate (GFR) non- AmericanOrdered By: Lolita Adorno on 05-15-2022 GFR/1.73 sq M.predicted among non-blacks MDRD (S/P/Bld) [Vol rate/Area] 47 mL/Min [facility] Globulin Calc (S) [Mass/Vol] Ordered By: Lolita Adorno on 05-15-2022 Globulin (S) [Mass/Vol] 2.8 g/dL [facility] Hematocrit Auto (Bld) [Volum e fraction]Ordered By: Lolita Adorno on 05-15-2022 Hematocrit (Bld) [Volume fraction] 40.9 % 38.8-50.0 [facility] Laboratory - Hematology and Cell countsOrdered By: Lolita Adorno on 05-15-2022 Nucleated RBC/100 WBC (Bld) [Ratio] 0.2 % 0-0.5 [facility] Lymphocytes Auto (Bld) [#/Vo l]Ordered By: Lolita Adorno on 05-15-2022 Lymphocytes (Bld) [#/Vol] 1.5 10*3/uL 1.00-4.8 [facility] Lymphocytes/100 WBC Auto (Bl d)Ordered By: Lolita Adorno on 05-15-2022 Lymphocytes/100 WBC (Bld) 18.2 % . [facility] MCH Auto (RBC) [Entitic mass ]Ordered By: Lolita Adorno on 05-15-2022 MCH (RBC) [Entitic mass] 28.3 pg 27.5-35.2 [facility] MCHC Auto (RBC) [Mass/Vol]Or dered By: Lolita Adorno on 05-15-2022 MCHC (RBC) [Mass/Vol] 32.6 g/dL 32.5-35.6 [facility] MCV Auto (RBC) [Entitic vol] Ordered By: Lolita Adorno on 05-15-2022 MCV (RBC) [Entitic vol] 86.9 fL 83.5-101 [facility] Monocytes Auto (Bld) [#/Vol] Ordered By: Lolita Adorno on 05-15-2022 Monocytes (Bld) [#/Vol] 0.9 10*3/uL 0.0-0.8 [facility] Monocytes/100 WBC Auto (Bld) Ordered By: Lolita Adorno on 05-15-2022 Monocytes/100 WBC (Bld) 10.5 % . [facility] Neutrophils Auto (Bld) [#/Vo l]Ordered By: Lolita Adorno on 05-15-2022 Neutrophils (Bld) [#/Vol] 5.6 10*3/uL 1.8-7.7 [facility] Neutrophils/100 WBC Auto (Bl d)Ordered By: Lolita Adorno on 05-15-2022 Neutrophils/100 WBC (Bld) 67.2 % . [facility] No Panel InformationOrdered By: Lolita Adorno on 05-15-2022 Estimated GFR () 57 mL/Min [facility] Comment on above: GFR estimated refere nce range: According to KDOQI guidelines, <60 ml/min/1.73m2 is sufficient to diagnose a patient with chronic kidney disease. Pharmacy Creatinine Clearance (Chem N/A [facility] Prostate Specific Antigen Screen 1.710 ng/mL 0.000-4.00 0 [facility] Platelet mean volume Auto (B ld) [Entitic vol]Ordered By: Lolita Adorno on 05-15-2022 Platelet mean volume (Bld) [Entitic vol] 8.8 fL 6.6-10.1 [facility] Platelets Auto (Bld) [#/Vol] Ordered By: Lolita Adorno on 05-15-2022 Platelets (Bld) [#/Vol] 221 10*3/uL 150-450 [facility] Protein [Mass/volume] in Ser um or PlasmaOrdered By: Lolita Adorno on 05-15-2022 Protein [Mass/Vol] 6.9 g/dL 6.1-7.9 [facility] RBC Auto (Bld) [#/Vol]Ordere d By: Lolita Adorno on 05-15-2022 RBC (Bld) [#/Vol] 4.71 10*6/uL 3.90-5.60 [facility] Serum or plasma alanine lujan otransferase measurement without P-5'-P (enzymatic activiOrdered By: Lolita Adorno on 05-15-2022 ALT No additional P-5'-P [Catalytic activity/Vol] 21 U/L 10-60 [facility] Serum or plasma albumin/glob ulin mass ratioOrdered By: Lolita Adorno on 05-15-2022 Albumin/Globulin [Mass ratio] 1.5 {ratio} [facility] Serum or plasma alkaline nata sphatase measurement (enzymatic activity/volume)Ordered By: Lolita Adorno on 05-15-2022 ALP [Catalytic activity/Vol] 86 U/L 32-92 [facility] Serum or plasma aspartate am inotransferase measurement (enzymatic activity/volume)Ordered By: Lolita Adorno on 05-15-2022 AST [Catalytic activity/Vol] 20 U/L 10-42 [facility] Serum or plasma calcium kirk urement (mass/volume)Ordered By: Lolita Adorno on 05-15-2022 Calcium [Mass/Vol] 9.4 mg/dL 8.2-10.2 [facility] Serum or plasma chloride tammy surement (moles/volume)Ordered By: Lolita Adorno on 05-15-2022 Chloride [Moles/Vol] 103 mmol/L 95-114 [facility] Serum or plasma glucose kirk urement (mass/volume)Ordered By: Lolita Adorno on 05-15-2022 Glucose [Mass/Vol] 131 mg/dL 70-100 [facility] Comment on above: ADA recommended refe rence rangeRandom Glucose Reference Range is dependent on time and content of last meal. Glucose of more than 200 mg/dL in a nonstressed, ambulatory subject supports the diagnosis of Diabetes Mellitus. Serum or plasma high density lipoprotein (HDL) cholesterol measurementOrdered By: Lolita Adorno on 05-15-2022 Cholesterol in HDL [Mass/Vol] 33 mg/dL 29-71 [facility] Comment on above: HDL CHOL ATP-III CLA SSIFICATION Cardiovascular RiskHDL > or equal to 60 mg/dL LOWHDL < 40 mg/dL HIGH Serum or plasma potassium me asurement (moles/volume)Ordered By: Lolita Adorno on 05-15-2022 Potassium [Moles/Vol] 4.4 mmol/L 3.5-5.1 [facility] Serum or plasma sodium measu rement (moles/volume)Ordered By: Lolita Adorno on 05-15-2022 Sodium [Moles/Vol] 139 mmol/L 136-146 [facility] Serum or plasma total biliru bin measurement (mass/volume)Ordered By: Lolita Adorno on 05-15-2022 Bilirubin [Mass/Vol] 0.4 mg/dL 0.3-1.2 [facility] Serum or plasma total carbon dioxide measurement (moles/volume)Ordered By: Lolita Adorno on 05-15-2022 CO2 [Moles/Vol] 25.4 mmol/L 22.0-30.0 [facility] Serum or plasma total choles terol/high density lipoprotein (HDL) cholesterol mass ratOrdered By: Lolita Adorno on 05-15-2022 Cholesterol.total/Flavia sterol in HDL [Mass ratio] 3.1 {ratio} <5.0 [facility] Serum or plasma urea nitroge n measurement (mass/volume)Ordered By: Lolita Adorno on 05-15-2022 Urea nitrogen [Mass/Vol] 23 mg/dL 06-28 [facility] TSH DL <= 0.005 mIU/L QnOrde red By: Lolita Kyree on 05-15-2022 TSH Qn 2.88 m[IU]/L 0.45-5.33 [facility] Triglyceride [Mass/volume] i n Serum or PlasmaOrdered By: Lolita Adorno on 05-15-2022 Triglyceride [Mass/Vol] 122 mg/dL 35-149 [facility] Comment on above: TRIG ATP III CLASSIF ICATIONTRIG less than 150 mg/dL NormalTRIG 150-199 mg/dL Borderline highTRIG 200-500 mg/dL High TRIG greater than 500 mg/dL Very highStandard traceable to the Center for Disease Conrtrol and Prevention (CDC) test method. A1C HEMOGLOBINon 05-14-2022 HbA1c (Bld) [Mass fraction] 6.5 % [facility] [employer] Other HbA1c (Bld) [Mass fraction]o n 05-14-2022 A1C HEMOGLOBIN [facility] [employer] Other Tobacco Screening.on 022 Adult depression screening assessment No [facility] DO Work Phone: Fall risk assessment a) No falls within the last year [facility] DO Work Phone: Tobacco use status CPHS a) Yes M [facility] DO Work Phone: Tobacco Screening. Yes [facility] DO Work Phone: A1C HEMOGLOBINon 02-11-2022 HbA1c (Bld) [Mass fraction] 6.3 % [employer] Other HbA1c (Bld) [Mass fraction]o n 02-11-2022 A1C HEMOGLOBIN [employer] Other A1C HEMOGLOBINon 11-13-2021 HbA1c (Bld) [Mass fraction] 6.8 % [employer] Other HbA1c (Bld) [Mass fraction]o n 11-13-2021 A1C HEMOGLOBIN [employer] Other Tobacco Screening.on 021 Fall risk assessment b) One or more fall s in the last year -[facility] [employer] DO Work Phone: Tobacco use status CP a) Yes M -[facility] [employer] [facility] DO Work Phone: Tobacco Screening. Yes -[facility] [employer] DO Work Phone: [facility] CARDIAC STRESS/REST ([place] CARDIAL PERFUSION/MIBI)on 09-25-2020 NO CARDIAC STRESS/REST (MYOCARDIAL PERFUSION/MIBI) Patient Name: AGGE LUGO STUDY: MYOCARDIAL PERFUSION STRESS TEST WITH LEXISCAN Performing facility: [facility], \[address], [address], \[place] [id number] [facility] Provider: Jesse Morrissey MD PCP: Dr. Kristopher Dumont Supervising provider: Adalberto Tom MD, FACC INDICATION: CAD; Chest Pain; Diabetes Essential HTN Hyperlipidemia HISTORY: Gender: M; Age: 70 y/o ; Height: 170.18 cm; Weight: 82.2703222 kg. High Cholesterol; CAD; Diabetes; Previous IA; HTN; Chest Pain; Quit smoking 3 years ago. PTCA on 2017. COMPARISON: Previous nuclear testing completed [id number] [facility] at [facility]. ACCESSION NUMBER(S): [id number]; [id number]; [id number] ORDERING CLINICIAN: JESSE MORRISSEY TECHNIQUE: ONE DAY [...] Electronically signed by: GABRIELA FLORIAN MD Normal [facility] CARDIAC STRESS/REST INJE CTIONon 09-25-2020 [facility] CARDIAC STRESS/REST INJECTION Patient Name: GAGE LUGO STUDY: MYOCARDIAL PERFUSION STRESS TEST WITH LEXISCAN Performing facility: [facility], [address], [address], \[place] [address] [facility] Provider: Jesse Morrissey MD PCP: Dr. Kristopher Dumont Supervising provider: Adalberto Tom MD, FACC INDICATION: CAD; Chest Pain; Diabetes Essential HTN Hyperlipidemia HISTORY: Gender: M; Age: 70 y/o ; Height: 170.18 cm; Weight: 82.0002419 kg. High Cholesterol; CAD; Diabetes; Previous IA; HTN; Chest Pain; Quit smoking 3 years ago. PTCA on 2016. COMPARISON: Previous nuclear testing completed [id number] [facility] at [facility]. ACCESSION NUMBER(S): [id number]; [id number]; [id number] ORDERING CLINICIAN: JESSE MORRISSEY TECHNIQUE: ONE DAY [...] changes. Electronically signed by: GABRIELA FLORIAN MD [facility] PART 2 STRESS OR REST (N O CHARGE)on 09-25-2020 [facility] PART 2 STRESS OR REST (NO CHARGE) Patient Name: GAGE LUGO STUDY: MYOCARDIAL PERFUSION STRESS TEST WITH LEXISCAN Performing facility: [facility], [address], [address], \[place] [address] [facility] Provider: Jesse Morrissey MD PCP: Dr. Kristopher Dumont Supervising provider: Adalberto Tom MD, [facility] INDICATION: CAD; Chest Pain; Diabetes Essential HTN Hyperlipidemia HISTORY: Gender: M; Age: 70 y/o ; Height: 170.18 cm; Weight: 82.3556049 kg. High Cholesterol; CAD; Diabetes; Previous IA; HTN; Chest Pain; Quit smoking 3 years ago. PTCA on 2016. COMPARISON: Previous nuclear testing completed [id number] [facility] at [facility]. ACCESSION NUMBER(S): [id number]; [id number]; [id number] ORDERING CLINICIAN: JESSE MORRISSEY TECHNIQUE: ONE DAY [...] changes. Electronically signed by: GABRIELA FLORIAN MD [facility] Vital Signs Date Time Vital Sign Value Performing Clinician Facility 05-24-2025 14:23-0400 Diastolic blood pressure 64 mm[Hg] Lolita Schwerer DO Work Phone: [facility] 05-24-2025 14:23-0400 Systolic blood pressure 86 mm[Hg] Lolita Schwerer DO Work Phone: [facility] 05-24-2025 13:57-0400 Body height 162.56 cm Lolita Schwerer DO Work Phone: [facility] 05-24-2025 13:57-0400 Body mass index (BMI) [Ratio] 28 kg/m2 Lolita Schwerer DO Work Phone: [facility] 05-24-2025 13:57-0400 Body temperature 98.1 [degF] Lolita Schwerer DO Work Phone: [facility] 05-24-2025 13:57-0400 Body weight 74.16 kg Lolita Schwerer DO Work Phone: [facility] 05-24-2025 13:57-0400 Heart rate 72 /min Lolita Schwerer DO Work Phone: [facility] 05-24-2025 13:57-0400 SaO2% (BldA) [Mass fraction] 98 % Lolita Schwerer DO Work Phone: [facility] 05-11-2025 12:07-0400 Body height 162.56 cm Lolita Schwerer DO Work Phone: [facility] 05-11-2025 12:07-0400 Body mass index (BMI) [Ratio] 26.9 kg/m2 Lolita Schwerer DO Work Phone: [facility] 05-11-2025 12:07-0400 Body weight 71.21 kg Lolita Schwerer DO Work Phone: [facility] 05-11-2025 12:07-0400 Diastolic blood pressure 78 mm[Hg] Lolita Schwerer DO Work Phone: [facility] 05-11-2025 12:07-0400 Systolic blood pressure 130 mm[Hg] Lolita Schwerer DO Work Phone: [facility] 04-28-2025 12:01-0400 Body height 162.56 cm Lolita Schwerer DO Work Phone: [facility] 04-28-2025 12:01-0400 Body mass index (BMI) [Ratio] 27.3 kg/m2 Lolita Schwerer DO Work Phone: [facility] 04-28-2025 12:01-0400 Body temperature 98.2 [degF] Lolita Schwerer DO Work Phone: [facility] 04-28-2025 12:01-0400 Body weight 72.12 kg Lolita Schwerer DO Work Phone: [facility] 04-28-2025 12:01-0400 Diastolic blood pressure 68 mm[Hg] Lolita Schwerer DO Work Phone: [facility] 04-28-2025 12:01-0400 Heart rate 67 /min Lolita Schwerer DO Work Phone: [facility] 04-28-2025 12:01-0400 Respiratory rate 16 /min Lolita Schwerer DO Work Phone: [facility] 04-28-2025 12:01-0400 SaO2% (BldA) [Mass fraction] 97 % Lolita Schwerer DO Work Phone: [facility] 04-28-2025 12:01-0400 Systolic blood pressure 122 mm[Hg] Lolita Schwerer DO Work Phone: [facility] 02-21-2025 13:44-0400 Body height 162.56 cm Lolita Schwerer DO Work Phone: [facility] 02-21-2025 13:44-0400 Body mass index (BMI) [Ratio] 27.3 kg/m2 Lolita Schwerer DO Work Phone: [facility] 02-21-2025 13:44-0400 Body temperature 98.1 [degF] Lolita Schwerer DO Work Phone: [facility] 02-21-2025 13:44-0400 Body weight 72.12 kg Lolita Schwerer DO Work Phone: [facility] 02-21-2025 13:44-0400 Diastolic blood pressure 68 mm[Hg] Lolita Schwerer DO Work Phone: [facility] 02-21-2025 13:44-0400 Heart rate 54 /min Lolita Schwerer DO Work Phone: [facility] 02-21-2025 13:44-0400 SaO2% (BldA) [Mass fraction] 96 % Lolita Schwerer DO Work Phone: [facility] 02-21-2025 13:44-0400 Systolic blood pressure 128 mm[Hg] Lolita Schwerer DO Work Phone: [facility] 12-20-2024 13:00-0400 Body temperature 97.2 [degF] Lolita Schwerer DO Work Phone: [facility] 12-20-2024 13:00-0400 Body weight 74.84 kg Lolita Schwerer DO Work Phone: [facility] 12-20-2024 13:00-0400 Diastolic blood pressure 83 mm[Hg] Lolita Schwerer DO Work Phone: [facility] 12-20-2024 13:00-0400 Heart rate 56 /min Lolita Schwerer DO Work Phone: [facility] 12-20-2024 13:00-0400 Systolic blood pressure 138 mm[Hg] Lolita Schwerer DO Work Phone: [facility] 11-22-2024 08:55-0500 Body height 162.56 cm Lolita Schwerer DO Work Phone: [facility] 11-22-2024 08:55-0500 Body mass index (BMI) [Ratio] 27.8 kg/m2 Lolita Schwerer DO Work Phone: [facility] 11-22-2024 08:55-0500 Body temperature 97.8 [degF] Lolita Schwerer DO Work Phone: [facility] 11-22-2024 08:55-0500 Body weight 73.7 kg Lolita Schwerer DO Work Phone: [facility] 11-22-2024 08:55-0500 Diastolic blood pressure 74 mm[Hg] Lolita Schwerer DO Work Phone: [facility] 11-22-2024 08:55-0500 Heart rate 68 /min Lolita Schwerer DO Work Phone: [facility] 11-22-2024 08:55-0500 SaO2% (BldA) [Mass fraction] 97 % Lolita Schwerer DO Work Phone: [facility] 11-22-2024 08:55-0500 Systolic blood pressure 128 mm[Hg] Lolita Schwerer DO Work Phone: [facility] 11-18-2024 09:10-0500 Body height 165.1 cm Gabriela Florian MD Work Phone: [facility] 11-18-2024 09:10-0500 Body mass index (BMI) [Ratio] 26.63 kg/m2 Gabriela Florian MD Work Phone: [facility] 11-18-2024 09:10-0500 Body weight 72.58 kg Gabriela Florian MD Work Phone: [facility] 11-18-2024 09:10-0500 Diastolic blood pressure 66 mm[Hg] Gabriela Florian MD Work Phone: [facility] 11-18-2024 09:10-0500 Heart rate 72 /min Gabriela Florian MD Work Phone: [facility] 11-18-2024 09:10-0500 Systolic blood pressure 112 mm[Hg] Gabriela Florian MD Work Phone: [facility] 10-27-2024 08:35-0500 Body height 162.56 cm Lolita Schwerer DO Work Phone: [facility] 10-27-2024 08:35-0500 Body mass index (BMI) [Ratio] 27.5 kg/m2 Lolita Schwerer DO Work Phone: [facility] 10-27-2024 08:35-0500 Body weight 72.68 kg Lolita Schwerer DO Work Phone: [facility] 10-27-2024 08:35-0500 Diastolic blood pressure 64 mm[Hg] Lolita Schwerer DO Work Phone: [facility] 10-27-2024 08:35-0500 Heart rate 60 /min Lolita Schwerer DO Work Phone: [facility] 10-27-2024 08:35-0500 Respiratory rate 16 /min Lolita Schwerer DO Work Phone: [facility] 10-27-2024 08:35-0500 SaO2% (BldA) [Mass fraction] 96 % Lolita Schwerer DO Work Phone: [facility] 10-27-2024 08:35-0500 Systolic blood pressure 110 mm[Hg] Lolita Schwerer DO Work Phone: [facility] 10-12-2024 11:08-0500 Body height 165.1 cm Lolita Schwerer DO Work Phone: [facility] 10-12-2024 11:08-0500 Body mass index (BMI) [Ratio] 27.6 kg/m2 Lolita Schwerer DO Work Phone: [facility] 10-12-2024 11:08-0500 Body temperature 96.9 [degF] Lolita Schwerer DO Work Phone: [facility] 10-12-2024 11:08-0500 Body weight 75.38 kg Lolita Schwerer DO Work Phone: [facility] 10-12-2024 11:08-0500 Diastolic blood pressure 62 mm[Hg] Lolita Schwerer DO Work Phone: [facility] 10-12-2024 11:08-0500 Heart rate 64 /min Lolita Schwerer DO Work Phone: [facility] 10-12-2024 11:08-0500 SaO2% (BldA) [Mass fraction] 97 % Lolita Schwerer DO Work Phone: [facility] 10-12-2024 11:08-0500 Systolic blood pressure 104 mm[Hg] Lolita Schwerer DO Work Phone: [facility] 10-08-2024 11:27-0500 Diastolic blood pressure 63 mm[Hg] Lolita Schwerer DO Work Phone: [facility] 10-08-2024 11:27-0500 Heart rate 71 /min Lolita Schwerer DO Work Phone: [facility] 10-08-2024 11:27-0500 Respiratory rate 18 /min Lolita Schwerer DO Work Phone: [facility] 10-08-2024 11:27-0500 SaO2% (BldA) [Mass fraction] 96 % Lolita Schwerer DO Work Phone: [facility] 10-08-2024 11:27-0500 Systolic blood pressure 115 mm[Hg] Lolita Schwerer DO Work Phone: [facility] 10-08-2024 07:37-0500 Body temperature 97.3 [degF] Lolita Schwerer DO Work Phone: [facility] 10-08-2024 06:49-0500 Body weight 81.8 kg Lolita Schwerer DO Work Phone: [facility] 10-06-2024 18:24-0500 Body height 165.1 cm Lolita Schwerer DO Work Phone: [facility] 10-06-2024 17:00-0500 Diastolic blood pressure 76 mm[Hg] Lolita Schwerer DO Work Phone: [facility] 10-06-2024 17:00-0500 Heart rate 77 /min Lolita Schwerer DO Work Phone: [facility] 10-06-2024 17:00-0500 Respiratory rate 18 /min Lolita Schwerer DO Work Phone: [facility] 10-06-2024 17:00-0500 SaO2% (BldA) [Mass fraction] 97 % Lolita Schwerer DO Work Phone: [facility] 10-06-2024 17:00-0500 Systolic blood pressure 159 mm[Hg] Lolita Schwerer DO Work Phone: [facility] 10-06-2024 15:19-0500 Body height 165.1 cm Lolita Schwerer DO Work Phone: [facility] 10-06-2024 15:19-0500 Body temperature 97.7 [degF] Lolita Schwerer DO Work Phone: [facility] 10-06-2024 15:19-0500 Body weight 74.84 kg Lolita Schwerer DO Work Phone: [facility] 10-06-2024 14:58-0500 Body temperature 97.9 [degF] Lolita Schwerer DO Work Phone: [facility] 10-06-2024 14:58-0500 Diastolic blood pressure 91 mm[Hg] Lolita Schwerer DO Work Phone: [facility] 10-06-2024 14:58-0500 Heart rate 85 /min Lolita Schwerer DO Work Phone: [facility] 10-06-2024 14:58-0500 Respiratory rate 16 /min Lolita Schwerer DO Work Phone: [facility] 10-06-2024 14:58-0500 SaO2% (BldA) [Mass fraction] 95 % Lolita Schwerer DO Work Phone: [facility] 10-06-2024 14:58-0500 Systolic blood pressure 198 mm[Hg] Lolita Schwerer DO Work Phone: [facility] 10-06-2024 05:23-0500 Body weight 75.1 kg Lolita Schwerer DO Work Phone: [facility] 10-05-2024 12:43-0500 Body height 167.64 cm Lolita Schwerer DO Work Phone: [facility] 08-30-2024 14:53-0500 Body height 167.64 cm Lolita Schwerer DO Work Phone: [phone] [place] [address] 08-30-2024 14:53-0500 Body mass index (BMI) [Ratio] 27.6 kg/m2 Lolita Schwerer DO Work Phone: [facility] 08-30-2024 14:53-0500 Body temperature 97.2 [degF] Lolita Schwerer DO Work Phone: [facility] 08-30-2024 14:53-0500 Body weight 77.73 kg Lolita Schwerer DO Work Phone: [facility] 08-30-2024 14:53-0500 Diastolic blood pressure 81 mm[Hg] Lolita Schwerer DO Work Phone: [facility] 08-30-2024 14:53-0500 Heart rate 78 /min Lolita Schwerer DO Work Phone: [facility] 08-30-2024 14:53-0500 Respiratory rate 16 /min Lolita Schwerer DO Work Phone: [facility] 08-30-2024 14:53-0500 SaO2% (BldA) [Mass fraction] 97 % Lolita Schwerer DO Work Phone: [facility] 08-30-2024 14:53-0500 Systolic blood pressure 171 mm[Hg] Lolita Schwerer DO Work Phone: [facility] 07-23-2024 10:54-0400 Body height 167.64 cm [facility] 07-23-2024 10:54-0400 Body mass index (BMI) [Ratio] 26.6 kg/m2 [facility] 07-23-2024 10:54-0400 Body temperature 97.4 [degF] [facility] 07-23-2024 10:54-0400 Body weight 74.92 kg [facility] 07-23-2024 10:54-0400 Diastolic blood pressure 68 mm[Hg] [facility] 07-23-2024 10:54-0400 Heart rate 52 /min [facility] 07-23-2024 10:54-0400 SaO2% (BldA) [Mass fraction] 96 % [facility] 07-23-2024 10:54-0400 Systolic blood pressure 116 mm[Hg] [facility] 06-23-2024 12:48-0400 Body height 170.2 cm Rai Badillo DO Work Phone: [facility] 06-23-2024 12:48-0400 Body mass index (BMI) [Ratio] 26.63 kg/m2 Rai Badillo DO Work Phone: [facility] 06-23-2024 12:48-0400 Body weight 77.11 kg Rai Badillo DO Work Phone: [facility] 06-05-2024 08:10-0400 Body temperature 97.9 [degF] Juan David Murphy MD [facility] [employer] 06-05-2024 08:10-0400 Diastolic blood pressure 74 mm[Hg] Juan David Murphy MD [facility] [email or web address] 06-05-2024 08:10-0400 Heart rate 78 /min Juan David Murphy MD [facility] [employer] 06-05-2024 08:10-0400 Respiratory rate 10 /min Juan David Murphy MD [facility] [employer] 06-05-2024 08:10-0400 SaO2% (BldA) [Mass fraction] 99 % Juan David Murphy MD [facility] 06-05-2024 08:10-0400 Systolic blood pressure 154 mm[Hg] Juan David Murphy MD [facility] 06-05-2024 04:43-0400 Body mass index (BMI) [Ratio] 28.73 kg/m2 Juan David Murphy MD [facility] 06-05-2024 04:43-0400 Body weight 78.3 kg Juan David Murphy MD [facility] 05-27-2024 17:30-0400 Body temperature 35.6 Juan [facility] 05-26-2024 09:33-0400 Body height 165.1 cm Juan David Murphy MD [facility] 04-26-2024 13:46-0400 Body height 167.64 cm DO Lolita Schwerer Work Phone: [facility] 04-26-2024 13:46-0400 Body mass index (BMI) [Ratio] 27.4 kg/m2 DO Lolita Schwerer Work Phone: [facility] 04-26-2024 13:46-0400 Body temperature 97.2 [degF] DO Lolita Schwerer Work Phone: [facility] 04-26-2024 13:46-0400 Body weight 77.11 kg DO Lolita Schwerer Work Phone: [facility] 04-26-2024 13:46-0400 Diastolic blood pressure 88 mm[Hg] DO Lolita Schwerer Work Phone: [facility] 04-26-2024 13:46-0400 Heart rate 74 /min DO Lolita Schwerer Work Phone: [facility] 04-26-2024 13:46-0400 Respiratory rate 18 /min DO Lolita Schwerer Work Phone: [facility] 04-26-2024 13:46-0400 SaO2% (BldA) [Mass fraction] 97 % DO Lolita Schwerer Work Phone: [facility] 04-26-2024 13:46-0400 Systolic blood pressure 204 mm[Hg] DO Lolita Schwerer Work Phone: [facility] 03-22-2024 10:54-0400 Body height 167.64 cm [facility] 03-22-2024 10:54-0400 Body mass index (BMI) [Ratio] 26.9 kg/m2 [facility] 03-22-2024 10:54-0400 Body weight 75.8 kg [facility] 03-22-2024 10:54-0400 Diastolic blood pressure 72 mm[Hg] [facility] 03-22-2024 10:54-0400 Heart rate 76 /min [facility] 03-22-2024 10:54-0400 Respiratory rate 18 /min [facility] 03-22-2024 10:54-0400 SaO2% (BldA) [Mass fraction] 95 % [facility] 03-22-2024 10:54-0400 Systolic blood pressure 138 mm[Hg] [facility] 12-26-2023 10:13-0400 Body weight 76.2 kg DO Lolita Schwerer Work Phone: [facility] 12-26-2023 10:13-0400 Diastolic blood pressure 86 mm[Hg] DO Lolita Schwerer Work Phone: [facility] 12-26-2023 10:13-0400 Heart rate 69 /min DO Lolita Schwerer Work Phone: [facility] 12-26-2023 10:13-0400 Systolic blood pressure 168 mm[Hg] DO Lolita Schwerer Work Phone: [facility] 12-25-2023 10:46-0400 Body height 167.64 cm DO Lolita Schwerer Work Phone: [facility] 12-25-2023 10:46-0400 Body mass index (BMI) [Ratio] 27.1 kg/m2 DO Lolita Schwerer Work Phone: [facility] 12-25-2023 10:46-0400 Body temperature 98 [degF] DO Lolita Schwerer Work Phone: [facility] 12-25-2023 10:46-0400 Body weight 76.37 kg DO Lolita Schwerer Work Phone: [facility] 12-25-2023 10:46-0400 Diastolic blood pressure 76 mm[Hg] DO Lolita Schwerer Work Phone: [facility] 12-25-2023 10:46-0400 Heart rate 70 /min DO Lolita Schwerer Work Phone: [facility] 12-25-2023 10:46-0400 SaO2% (BldA) [Mass fraction] 99 % DO Lolita Schwerer Work Phone: [facility] 12-25-2023 10:46-0400 Systolic blood pressure 132 mm[Hg] DO Lolita Schwerer Work Phone: [facility] 10-16-2023 09:03-0500 Body height 165.1 cm Gabriela Florian MD Work Phone: [facility] 10-16-2023 09:03-0500 Body mass index (BMI) [Ratio] 27.12 kg/m2 Gabriela Florian MD Work Phone: [facility] 10-16-2023 09:03-0500 Body weight 73.94 kg Gabriela Florian MD Work Phone: [facility] 10-16-2023 09:03-0500 Diastolic blood pressure 60 mm[Hg] Gabriela Florian MD Work Phone: [facility] 10-16-2023 09:03-0500 Heart rate 62 /min Gabriela Florian MD Work Phone: [facility] 10-16-2023 09:03-0500 Systolic blood pressure 102 mm[Hg] Gabriela Florian MD Work Phone: [facility] 09-25-2023 09:00-0500 Body height 167.64 cm [employer] Other [employer] Other 09-25-2023 09:00-0500 Body mass index (BMI) [Ratio] 26.95 kg/m2 [employer] Other [employer] Other 09-25-2023 09:00-0500 Body weight 75.75 kg [employer] Other [employer] Other 09-23-2023 10:45-0500 Body height 167.64 cm Lolita Schwerer Other [employer] Other 09-23-2023 10:45-0500 Body mass index (BMI) [Ratio] 26.97 kg/m2 Lolita Schwerer Other [employer] Other 09-23-2023 10:45-0500 Body temperature 98.1 [degF] Lolita Schwerer Other [employer] Other 09-23-2023 10:45-0500 Body weight 75.8 kg Lolita Schwerer Other [employer] Other 09-23-2023 10:45-0500 Diastolic blood pressure 88 mm[Hg] Lolita Schwerer Other [employer] Other 09-23-2023 10:45-0500 SaO2% (BldA) [Mass fraction] 99 % Lolita Schwerer Other [employer] Other 09-23-2023 10:45-0500 Systolic blood pressure 158 mm[Hg] Lolita Schwerer Other [employer] Other 09-18-2023 09:15-0500 Body height 167.64 cm Lyudmila White Other [facility] [employer] Other 09-11-2023 11:37-0500 Diastolic blood pressure 58 mm[Hg] DO Lolita Schwerer Work Phone: [facility] 09-11-2023 11:37-0500 Heart rate 74 /min DO Lolita Schwerer Work Phone: [facility] 09-11-2023 11:37-0500 Respiratory rate 18 /min DO Lolita Schwerer Work Phone: [facility] 09-11-2023 11:37-0500 SaO2% (BldA) [Mass fraction] 95 % DO Lolita Schwerer Work Phone: [facility] 09-11-2023 11:37-0500 Systolic blood pressure 128 mm[Hg] DO Lolita Schwerer Work Phone: [facility] 09-11-2023 08:00-0500 Body temperature 98.1 [degF] DO Lolita Schwerer Work Phone: [facility] 09-11-2023 06:00-0500 Body weight 74.5 kg DO Lolita Schwerer Work Phone: [facility] 09-09-2023 14:30-0500 Body height 167.64 cm DO Lolita Schwerer Work Phone: [facility] 08-21-2023 09:15-0500 Body height 167.64 cm Lyudmila White Other [employer] Other 08-21-2023 09:15-0500 Body mass index (BMI) [Ratio] 26.63 kg/m2 Lyudmila White Other [employer] Other 08-21-2023 09:15-0500 Body weight 74.84 kg Lyudmila White Other [employer] Other 07-31-2023 11:15-0400 Body height 167.64 cm Prieto Olexa Other [employer] Other 07-24-2023 11:00-0400 Body height 167.64 cm [employer]eto [employer] Other [employer] Other 07-22-2023 13:39-0400 Body height 165.1 cm DO Lolita Schwerer Work Phone: [facility] 07-22-2023 13:39-0400 Body temperature 97.7 [degF] DO Lolita Schwerer Work Phone: [facility] 07-22-2023 13:39-0400 Body weight 74.84 kg DO Lolita Schwerer Work Phone: [facility] 07-22-2023 13:39-0400 Diastolic blood pressure 79 mm[Hg] DO Lolita Schwerer Work Phone: [facility] 07-22-2023 13:39-0400 Heart rate 72 /min DO Lolita Schwerer Work Phone: [facility] 07-22-2023 13:39-0400 Respiratory rate 18 /min DO Lolita Schwerer Work Phone: [facility] 07-22-2023 13:39-0400 SaO2% (BldA) [Mass fraction] 96 % DO Lolita Schwerer Work Phone: [facility] 07-22-2023 13:39-0400 Systolic blood pressure 155 mm[Hg] DO Lolita Schwerer Work Phone: [facility] 06-18-2023 09:30-0400 Body height 167.64 cm [employer] Other [employer] Other 06-18-2023 09:30-0400 Body mass index (BMI) [Ratio] 26.63 kg/m2 [employer] Other [employer] Other 06-18-2023 09:30-0400 Body weight 74.84 kg [employer] Other [employer] Other 06-02-2023 13:45-0400 Body height 167.64 cm Lolita Mendeserecasey Other [employer] Other 06-02-2023 13:45-0400 Body mass index (BMI) [Ratio] 26.47 kg/m2 Lolita Mendeserer Other [employer] Other 06-02-2023 13:45-0400 Body weight 74.39 kg Lolita Schwerer Other [employer] Other 06-02-2023 13:45-0400 Diastolic blood pressure 72 mm[Hg] Lolita Schwerer Other [employer] Other 06-02-2023 13:45-0400 Respiratory rate 18 /min Lolita Schwerer Other [employer] Other 06-02-2023 13:45-0400 SaO2% (BldA) [Mass fraction] 96 % Lolita Mendesidacasey Other [employer] Other 06-02-2023 13:45-0400 Systolic blood pressure 142 mm[Hg] Lolita Vaughnanmol Other [employer] Other 05-06-2023 10:40-0400 Body height 167.64 cm [employer] Other [employer] Other 05-06-2023 10:40-0400 Body mass index (BMI) [Ratio] 26.63 kg/m2 [employer] Other [employer] Other 05-06-2023 10:40-0400 Body weight 74.84 kg [employer] Other [employer] Other 05-06-2023 10:40-0400 Diastolic blood pressure 76 mm[Hg] [employer] Other [employer] Other 05-06-2023 10:40-0400 Systolic blood pressure 138 mm[Hg] [employer] Other [employer] Other 04-22-2023 09:28-0400 Body height 167.64 cm Lolita Mendeserer Work Phone: [employer] DO Work Phone: 04-22-2023 09:28-0400 Body mass index (BMI) [Ratio] 26.63 kg/m2 Lolita Travis Schwerer Work Phone: [employer] DO Work Phone: 04-22-2023 09:28-0400 Body surface area Derived from formula 1.84 m2 Lolita Travis Schwerer Work Phone: [facility] 250 DO Work Phone: 04-22-2023 09:28-0400 Body weight 74.84 kg Lolita Thaddeus Schwerer Work Phone: [facility] 250 DO Work Phone: 04-22-2023 09:28-0400 Diastolic blood pressure 68 mm[Hg] Lolita Thaddeus Schwerer Work Phone: [facility] 250 DO Work Phone: 04-22-2023 09:28-0400 Heart rate 76 /min Lolita Thaddeus Schwerer Work Phone: [facility] 250 DO Work Phone: 04-22-2023 09:28-0400 Systolic blood pressure 124 mm[Hg] Lolita Thaddeus Schwerer Work Phone: [facility] 250 DO Work Phone: 12-25-2022 10:30-0400 Body height 167.64 cm Beth Lowe Other [employer] [facility] [employer] Other 12-25-2022 10:30-0400 Body mass index (BMI) [Ratio] 26.47 kg/m2 Beth Lowe Other [employer] Other 12-25-2022 10:30-0400 Body weight 74.39 kg Beth Lowe Other [employer] Other 12-25-2022 10:30-0400 Diastolic blood pressure 72 mm[Hg] Beth Lowe Other [employer] Other 12-25-2022 10:30-0400 Systolic blood pressure 126 mm[Hg] Beth Lowe Other [employer] Other 11-25-2022 14:30-0500 Body height 167.64 cm Lolita Schwerer Other [employer] Other 11-25-2022 14:30-0500 Body mass index (BMI) [Ratio] 26.56 kg/m2 Lolita Schwerer Other [employer] Other 11-25-2022 14:30-0500 Body weight 74.66 kg Lolita Schwerer Other [employer] Other 11-25-2022 14:30-0500 Diastolic blood pressure 80 mm[Hg] Lolita Schwerer Other [employer] Other 11-25-2022 14:30-0500 Respiratory rate 18 /min Lolita Schwerer Other [employer] Other 11-25-2022 14:30-0500 SaO2% (BldA) [Mass fraction] 98 % Lolita Schwerer Other [employer] Other 11-25-2022 14:30-0500 Systolic blood pressure 138 mm[Hg] Lolita Schwerer Other [employer] Other 10-17-2022 10:00-0500 Body height 167.64 cm [employer] Other [employer] Other 10-17-2022 10:00-0500 Body mass index (BMI) [Ratio] 27.11 kg/m2 [employer] Other [employer] Other 10-17-2022 10:00-0500 Body weight 76.2 kg [employer] Other [facility] [employer] Other 10-16-2022 10:17-0500 Body height 167.64 cm Lolita Thaddeus Schwerer Work Phone: [facility] 250 DO Work Phone: 10-16-2022 10:17-0500 Body mass index (BMI) [Ratio] 27.44 kg/m2 Lolita E Schwerer Work Phone: [facility] 250 DO Work Phone: 10-16-2022 10:17-0500 Body surface area Derived from formula 1.87 m2 Lolita E Schwerer Work Phone: [facility] 250 DO Work Phone: 10-16-2022 10:17-0500 Body weight 77.11 kg Lolita E Schwerer Work Phone: [facility] 250 DO Work Phone: 10-16-2022 10:17-0500 Diastolic blood pressure 64 mm[Hg] Lolita E Schwerer Work Phone: [facility] 250 DO Work Phone: 10-16-2022 10:17-0500 Heart rate 88 /min Lolita E Schwerer Work Phone: [facility] 250 DO Work Phone: 10-16-2022 10:17-0500 Systolic blood pressure 122 mm[Hg] Lolita E Schwerer Work Phone: [facility] 250 DO Work Phone: 10-06-2022 11:15-0500 Body temperature 98.1 [degF] DO Lolita Schwerer Work Phone: [facility] 10-06-2022 11:15-0500 Diastolic blood pressure 88 mm[Hg] DO Lolita Schwerer Work Phone: [facility] 10-06-2022 11:15-0500 Heart rate 80 /min DO Lolita Schwerer Work Phone: [facility] 10-06-2022 11:15-0500 Respiratory rate 18 /min DO Lolita Schwerer Work Phone: [facility] 10-06-2022 11:15-0500 SaO2% (BldA) [Mass fraction] 98 % DO Lolita Schwerer Work Phone: [facility] 10-06-2022 11:15-0500 Systolic blood pressure 155 mm[Hg] DO Lolita Schwerer Work Phone: [facility] 10-06-2022 03:30-0500 Body weight 76 kg DO Lolita Schwerer Work Phone: [facility] 10-04-2022 10:45-0500 Body height 168.91 cm DO Lolita Schwerer Work Phone: [facility] 10-02-2022 10:14-0500 Inhaled oxygen flow rate 8 L/min DO Lolita Schwerer Work Phone: [facility] 10-02-2022 08:15-0500 Body mass index (BMI) [Ratio] 26.7 kg/m2 DO Lolita Schwerer Work Phone: [facility] 08-19-2022 16:00-0500 Body height 167.64 cm Lolita Schwerer Other [employer] Other 08-19-2022 16:00-0500 Body mass index (BMI) [Ratio] 27.19 kg/m2 Lolita Schwerer Other [employer] Other 08-19-2022 16:00-0500 Body weight 76.43 kg Lolita Schwerer Other [employer] Other 08-19-2022 16:00-0500 Diastolic blood pressure 88 mm[Hg] Lolita Schwerer Other [employer] Other 08-19-2022 16:00-0500 Respiratory rate 18 /min Lolita Schwerer Other [employer] Other 08-19-2022 16:00-0500 SaO2% (BldA) [Mass fraction] 98 % Lolita Schwerer Other [employer] Other 08-19-2022 16:00-0500 Systolic blood pressure 122 mm[Hg] Lolita Schwerer Other [employer] Other 07-14-2022 09:32-0400 Diastolic blood pressure 85 mm[Hg] DO Lolita Schwerer Work Phone: [facility] 07-14-2022 09:32-0400 Heart rate 78 /min DO Lolita Schwerer Work Phone: [facility] 07-14-2022 09:32-0400 Respiratory rate 16 /min DO Lolita Schwerer Work Phone: [facility] 07-14-2022 09:32-0400 SaO2% (BldA) [Mass fraction] 98 % DO Lolita Schwerer Work Phone: [facility] 07-14-2022 09:32-0400 Systolic blood pressure 158 mm[Hg] DO Lolita Schwerer Work Phone: [facility] 07-14-2022 09:03-0400 Body height 165.1 cm DO Lolita Schwerer Work Phone: [facility] 07-14-2022 09:03-0400 Body temperature 97 [degF] DO Lolita Schwerer Work Phone: [facility] 07-14-2022 09:03-0400 Body weight 79.37 kg DO Lolita Schwerer Work Phone: [facility] 06-20-2022 09:20-0400 Body height 167.64 cm Clemente Miller Other [employer] Other 06-20-2022 09:20-0400 Body mass index (BMI) [Ratio] 26.47 kg/m2 Clemente Miller Other [employer] Other 06-20-2022 09:20-0400 Body weight 74.39 kg Clemente Miller Other [employer] Other 05-14-2022 15:00-0400 Body height 167.64 cm Lolita Schwerer Other [employer] Other 05-14-2022 15:00-0400 Body mass index (BMI) [Ratio] 26.6 kg/m2 Lolita Schwerer Other [employer] Other 05-14-2022 15:00-0400 Body weight 74.75 kg Lolita Schwerer Other [employer] Other 05-14-2022 15:00-0400 Diastolic blood pressure 78 mm[Hg] Lolita Schwerer Other [employer] Other 05-14-2022 15:00-0400 Respiratory rate 18 /min Lolita Schwerer Other [employer] Other 05-14-2022 15:00-0400 SaO2% (BldA) [Mass fraction] 98 % Lolita Mendeserecasey Other [employer] Other 05-14-2022 15:00-0400 Systolic blood pressure 118 mm[Hg] Lolita Mendeserecasey Other [employer] Other 03-28-2022 10:52-0400 Body height 167.64 cm Lolita Travis Schwerer Work Phone: [facility] 250 DO Work Phone: 03-28-2022 10:52-0400 Body mass index (BMI) [Ratio] 26.63 kg/m2 Lolita Travis Schwerer Work Phone: [facility] [employer] 250 DO Work Phone: 03-28-2022 10:52-0400 Body surface area Derived from formula 1.84 m2 Lolita Travis Schwerer Work Phone: [facility] 250 DO Work Phone: 03-28-2022 10:52-0400 Body weight 74.84 kg Lolita Travis Schwerer Work Phone: [facility] 250 DO Work Phone: 03-28-2022 10:52-0400 Diastolic blood pressure 70 mm[Hg] Lolita Travis Schwerer Work Phone: [facility] 250 DO Work Phone: 03-28-2022 10:52-0400 Heart rate 78 /min Lolita Travis Schwerer Work Phone: [facility] 250 DO Work Phone: 03-28-2022 10:52-0400 Systolic blood pressure 132 mm[Hg] Lolita E Schwerer Work Phone: [facility] 250 DO Work Phone: 02-11-2022 15:15-0400 Body height 167.64 cm Lolita Schwerer Other [employer] Other 02-11-2022 15:15-0400 Body mass index (BMI) [Ratio] 26.74 kg/m2 Lolita Schwerer Other [employer] Other 02-11-2022 15:15-0400 Body weight 75.16 kg Lolita Schwerer Other [employer] Other 02-11-2022 15:15-0400 Diastolic blood pressure 72 mm[Hg] Lolita Schwerer Other [employer] Other 02-11-2022 15:15-0400 Respiratory rate 18 /min Lolita Schwerer Other [employer] Other 02-11-2022 15:15-0400 SaO2% (BldA) [Mass fraction] 99 % Lolita Schwerer Other [employer] Other 02-11-2022 15:15-0400 Systolic blood pressure 118 mm[Hg] Lolita Schwerer Other [employer] Other 11-13-2021 10:00-0500 Body height 167.64 cm Lolita Schwerer Other [employer] Other 11-13-2021 10:00-0500 Body mass index (BMI) [Ratio] 27.19 kg/m2 Lolita Schwerer Other [employer] Other 11-13-2021 10:00-0500 Body weight 76.43 kg Lolita Schwerer Other [employer] Other 11-13-2021 10:00-0500 Diastolic blood pressure 78 mm[Hg] Lolita Schwerer Other [employer] Other 11-13-2021 10:00-0500 Respiratory rate 18 /min Lolita Schwerer Other [employer] Other 11-13-2021 10:00-0500 SaO2% (BldA) [Mass fraction] 98 % Lolita Schwerer Other [employer] Other 11-13-2021 10:00-0500 Systolic blood pressure 130 mm[Hg] Lolita Schwerer Other [employer] Other 10-31-2021 16:30-0500 Body height 167.64 cm Yohannes Granda Other [employer] Other 10-31-2021 16:30-0500 Body mass index (BMI) [Ratio] 28.08 kg/m2 Yohannes Granda Other [employer] Other 10-31-2021 16:30-0500 Body temperature 98.2 [degF] Yohannes Granda Other [employer] Other 10-31-2021 16:30-0500 Body weight 78.93 kg Yohannes Granda Other [employer] Other 10-31-2021 16:30-0500 Diastolic blood pressure 84 mm[Hg] Yohannes Gregoraleida Other [facility] [employer] Other 10-31-2021 16:30-0500 Respiratory rate 18 /min Yohannes Bundyaleida Other [facility] [employer] Other 10-31-2021 16:30-0500 SaO2% (BldA) [Mass fraction] 98 % Yohannes Bundyaleida Other [facility] [employer] Other 10-31-2021 16:30-0500 Systolic blood pressure 144 mm[Hg] Yohannes Mariesandy Other [facility] [employer] Other 09-19-2021 10:07-0500 Diastolic blood pressure 60 mm[Hg] Lolita E Schwerer Work Phone: [facility] [employer] 250 DO Work Phone: 09-19-2021 10:07-0500 Systolic blood pressure 132 mm[Hg] Lolita E Schwerer Work Phone: [facility] [employer] 250 DO Work Phone: 09-19-2021 09:51-0500 Diastolic blood pressure 80 mm[Hg] Lolita E Schwerer Work Phone: [facility] [employer] 250 DO Work Phone: 09-19-2021 09:51-0500 Systolic blood pressure 150 mm[Hg] Lolita E Schwerer Work Phone: [facility] [employer] 250 DO Work Phone: 09-19-2021 09:47-0500 Body height 167.64 cm Lolita E Schwerer Work Phone: [facility] videoNEXT 250 DO Work Phone: 09-19-2021 09:47-0500 Body mass index (BMI) [Ratio] 27.6 kg/m2 Lolita E Schwerer Work Phone: [facility] [place] 250 DO Work Phone: 09-19-2021 09:47-0500 Body surface area Derived from formula 1.87 m2 Lolita E Schwerer Work Phone: [facility] [place] 250 DO Work Phone: 09-19-2021 09:47-0500 Body weight 77.57 kg Lolita E Schwerer Work Phone: [facility] 250 DO Work Phone: 09-19-2021 09:47-0500 Diastolic blood pressure 92 mm[Hg] Lolita E Schwerer Work Phone: [facility] 250 DO Work Phone: 09-19-2021 09:47-0500 Heart rate 73 /min Lolita E Schwerer Work Phone: [facility] 250 DO Work Phone: 09-19-2021 09:47-0500 Systolic blood pressure 162 mm[Hg] [facility] E [facility] Work Phone: 08-09-2021 10:00-0400 Body height 167.64 cm Lolita Schwerer Other [employer] Other 08-09-2021 10:00-0400 Body mass index (BMI) [Ratio] 27.44 kg/m2 Lolita Schwerer Other [employer] Other 08-09-2021 10:00-0400 Body weight 77.11 kg Lolita Schwerer Other [employer] Other 08-09-2021 10:00-0400 Diastolic blood pressure 94 mm[Hg] Lolita Schwerer Other [employer] Other 08-09-2021 10:00-0400 Respiratory rate 18 /min Lolita Schwerer Other [employer] Other 08-09-2021 10:00-0400 SaO2% (BldA) [Mass fraction] 96 % Lolita Schwerer Other [employer] Other 08-09-2021 10:00-0400 Systolic blood pressure 142 mm[Hg] Lolita Schwerer Other [employer] Other Encounters Encounter Date Encounter Type Care Provider Facility Start: 05-24-2025 End: 05-24-2025 ambulatory Lolita E Schwerer DO Work Phone: [facility] Work Phone: Start: 05-24-2025 End: 05-24-2025 Patient encounter procedure Lolita E Schwerer DO -[facility] [place] Work Phone: Start: 05-11-2025 End: 05-11-2025 ambulatory Lolita E Schwerer DO Work Phone: [facility] Work Phone: Start: 05-11-2025 End: 05-11-2025 Patient encounter procedure Alex Hicks MD -[facility] Work Phone: Start: 05-11-2025 End: 05-11-2025 Patient encounter procedure Alex Hicks MD -[facility] Start: 05-11-2025 End: 05-11-2025 ambulatory Lolita E Schwerer DO Work Phone: [facility] Work Phone: Start: 04-28-2025 End: 04-28-2025 Patient encounter procedure Lizette Hicks FILTERER -[facility] Work Phone: Start: 04-28-2025 End: 04-28-2025 ambulatory Lolita E Schwerer DO Work Phone: [facility] Work Phone: Start: 04-28-2025 End: 04-28-2025 ambulatory Lolita E Schwerer DO Work Phone: [facility] Work Phone: Start: 04-28-2025 End: 04-28-2025 Patient encounter procedure Lizette Hicks FILTERER -[facility] Work Phone: Start: 03-09-2025 End: 03-09-2025 Patient encounter procedure Lolita Schwerer DO Work Phone: [facility] [place] Work Phone: Start: 03-09-2025 End: 03-09-2025 ambulatory Lolita E Schwerer DO Work Phone: [facility] Work Phone: Start: 02-21-2025 End: 02-21-2025 Patient encounter procedure Lolita Schwerer DO Work Phone: [facility] [place] Work Phone: Start: 12-20-2024 End: 12-20-2024 ambulatory Lolita E Schwerer DO Work Phone: [facility] Work Phone: Start: 12-20-2024 End: 12-20-2024 Patient encounter procedure Lolita Schwerer DO Work Phone: [facility] [place] Work Phone: Start: 12-20-2024 End: 12-20-2024 Lolita Schwerer DO Work Phone: [facility] Work Phone: Start: 12-13-2024 End: 12-13-2024 Patient encounter procedure Lolita Schwerer DO Work Phone: [facility] [place] Work Phone: Start: 12-13-2024 End: 12-13-2024 Lolita Schwerer DO Work Phone: [facility] [place] Work Phone: Start: 12-13-2024 End: 12-13-2024 ambulatory Lolita E Schwerer DO Work Phone: [facility] Work Phone: Start: 11-23-2024 End: 11-23-2024 Lolita Schwerer DO Work Phone: [facility] Work Phone: Start: 11-23-2024 End: 11-23-2024 ambulatory Lolita E Schwerer DO Work Phone: [facility] Work Phone: Start: 11-22-2024 End: 11-22-2024 ambulatory Lolita E Schwerer DO Work Phone: [facility] Work Phone: Start: 11-22-2024 End: 11-22-2024 Lolita Schwerer DO Work Phone: [facility] [place] Work Phone: Start: 11-18-2024 End: 11-18-2024 Office outpatient visit 25 minutes Gabriela Florian MD Work Phone: [facility] Comment on above: 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of n ative coronary artery of [place] heart without angina pectoris; Essential hypertension; History of IA (myocardial infarction); Mixed hyperlipidemia; S/P PTCA (percutaneous transluminal coronary angioplasty); Type 2 diabetes mellitus with stage 3a chronic kidney disease, with long-term current use of insulin (Multi); Stage 4 chronic kidney disease (Multi); Current smoker on some days; BMI 26.0-26.9,adult Start: 11-18-2024 End: 11-18-2024 ambulatory GABRIELA Hicks [facility] Ambulatory Start: 11-11-2024 Lolita Schwer er DO Work Phone: [facility] Work Phone: Start: 11-04-2024 Lolita Schwer er DO Work Phone: [facility] Work Phone: Start: 11-01-2024 Lolita Schwer er DO Work Phone: [facility] Work Phone: Start: 10-29-2024 Lolita Schwer er DO Work Phone: [facility] Work Phone: Start: 10-27-2024 End: 10-27-2024 ambulatory Lolita E Schwerer DO Work Phone: [facility] Work Phone: Start: 10-27-2024 End: 10-27-2024 Patient encounter procedure Lolita Schwerer DO Work Phone: [facility] Work Phone: Start: 10-27-2024 End: 10-27-2024 Lolita Schwerer DO Work Phone: [facility] Work Phone: Start: 10-25-2024 End: 10-25-2024 Patient encounter procedure Lolita Schwerer DO Work Phone: [facility] [place] Work Phone: Start: 10-25-2024 End: 10-25-2024 Lolita Schwerer DO Work Phone: [facility] [place] Work Phone: Start: 10-25-2024 End: 10-25-2024 ambulatory Lolita E Schwerer DO Work Phone: [facility] Work Phone: Start: 10-20-2024 End: 10-20-2024 Patient encounter procedure Lolita Schwerer DO Work Phone: [facility] [place] Work Phone: Start: 10-20-2024 End: 10-20-2024 Lolita Schwerer DO Work Phone: [facility] [place] Work Phone: Start: 10-20-2024 End: 10-20-2024 ambulatory Lolita E Schwerer DO Work Phone: [facility] Work Phone: Start: 10-12-2024 End: 10-12-2024 ambulatory Lolita E Schwerer DO Work Phone: [facility] Work Phone: Start: 10-12-2024 End: 10-12-2024 Patient encounter procedure Lolita Schwerer DO Work Phone: [facility] [place] Work Phone: Start: 10-12-2024 End: 10-12-2024 Lolita Schwerer DO Work Phone: [facility] Start: 10-07-2024 Non-patient / Non-visit Kaitli n Schwerer DO Work Phone: [facility] Work Phone: Start: 10-07-2024 Lolita Schwer er DO Work Phone: [facility] Work Phone: Start: 10-06-2024 End: 10-08-2024 Evaluation and management of inpatient Lolita Schwerer DO Work Phone: [facility] Work Phone: Start: 10-06-2024 End: 10-08-2024 Lolita Schwerer DO Work Phone: [facility] Work Phone: Start: 10-06-2024 End: 10-08-2024 ambulatory Matheus Enriqueta Facility:[facility] Start: 10-05-2024 Non-patient / Non-visit Kaitli n Schwerer DO Work Phone: [facility] [place] Work Phone: Start: 10-05-2024 Lolita Schwer er DO Work Phone: [facility] Work Phone: Start: 10-04-2024 End: 10-06-2024 ambulatory Matheus Enriqueta Facility:[facility] Start: 10-04-2024 End: 10-06-2024 Evaluation and management of inpatient Lolita Schwerer DO Work Phone: [facility] Work Phone: Start: 10-04-2024 End: 10-06-2024 Lolita Schwerer DO Work Phone: [facility] Work Phone: Start: 10-04-2024 End: 10-04-2024 Patient encounter procedure Lolita Schwerer DO Work Phone: [facility] Start: 10-04-2024 End: 10-04-2024 Lolita Schwerer DO Work Phone: [facility] Start: 10-04-2024 End: 10-04-2024 ambulatory Lolita E Schwerer Facility:[facility] Start: 09-15-2024 End: 09-15-2024 ambulatory [facility] Start: 08-30-2024 End: 08-30-2024 Patient encounter procedure Lolita Schwerer DO Work Phone[facility] Work Phone: Start: 08-30-2024 End: 08-30-2024 Lolita Schwerer DO Work Phone: [facility] Work Phone: Start: 08-23-2024 End: 08-23-2024 Patient encounter procedure Lolita Schwerer DO Work Phone: [facility] [place] Work Phone: Start: 08-23-2024 End: 08-23-2024 ambulatory Lolita E Schwerer DO Work Phone: [facility] Work Phone: Start: 07-23-2024 End: 07-23-2024 ambulatory [facility] Work Phone: Start: 07-23-2024 End: 07-23-2024 Patient encounter procedure [facility] [place] Work Phone: Start: 07-21-2024 End: 07-21-2024 [facility] Start: 06-23-2024 End: 06-23-2024 Bamboo flowsheet Rai Badillo DO Work Phone: [facility] [place] Start: 06-23-2024 End: 06-23-2024 Bamboo flowsheet Rai Badillo DO Work Phone: [facility] Start: 06-23-2024 End: 06-23-2024 Patient encounter procedure Rai Abdallarubén DO Work Phone: [facility] Start: 06-23-2024 End: 06-23-2024 Office outpatient visit 25 minutes Rai Abi Justino CADE Work Phone: [facility] Comment on above: Multiple thyroid nod ules (CMS/HCC) (Primary Dx) Start: 06-23-2024 End: 06-23-2024 ambulatory RAI Alex AMOLRUBÉN Not Available Start: 05-23-2024 End: 06-05-2024 Evaluation and management of inpatient [facility] Start: 05-22-2024 Non-patient / Non-visit [facility] Work Phone: Start: 05-21-2024 End: 05-24-2024 Clinisync Result Encounter [place] BALTAZAR Work Phone: [facility] Unsolicited Start: 05-21-2024 End: 05-24-2024 Clinisync Result Encounter [place] BALTAZAR Work Phone: [facility] Unsolicited Start: 04-29-2024 End: 04-29-2024 ambulatory [facility] Ambulatory Start: 04-26-2024 End: 04-26-2024 ambulatory DO Lolita Adorno Work Phone: [facility] Work Phone: Start: 04-26-2024 End: 04-26-2024 Patient encounter procedure DO Lolita Schwerer Work Phone: [facility] Work Phone: Start: 03-22-2024 End: 03-22-2024 ambulatory DO Lolita E Schwerer Work Phone: [facility] Work Phone: Start: 03-22-2024 End: 03-22-2024 Patient encounter procedure [facility] [place] Work Phone: Start: 12-26-2023 End: 12-26-2023 ambulatory DO Lolita E Schwerer Work Phone: [facility] Work Phone: Start: 12-26-2023 End: 12-26-2023 Patient encounter procedure DO Lolita Schwerer Work Phone: [facility] Gastroenterology Work Phone: Start: 12-25-2023 End: 12-25-2023 ambulatory DO Lolita E Schwerer Work Phone: [facility] Work Phone: Start: 12-25-2023 End: 12-25-2023 Patient encounter procedure DO Lolita Schwerer Work Phone: [facility] [place] Work Phone: Start: 12-01-2023 Non-patient / Non-visit DO Med tlin Schwerer Work Phone: [facility] Work Phone: Start: 11-17-2023 End: 11-17-2023 ambulatory Lolita Schwerer Other [facility] [employer] Other Start: 11-17-2023 Telephone encounter Lolita Aragonr [facility] [place] Start: 10-30-2023 End: 10-30-2023 ambulatory Nette Adina Other [employer] Other Start: 10-30-2023 Office outpatient vi sit 25 minutes Nette Adina [facility] Nephrology Start: 10-17-2023 End: 10-17-2023 ambulatory DO Lolita E Schwerer Work Phone: [facility] Work Phone: Start: 10-17-2023 End: 10-17-2023 Patient encounter procedure DO Lolita Schwerer Work Phone: [facility] [place] Work Phone: Start: 10-16-2023 End: 10-16-2023 Office outpatient visit 25 minutes Gabriela Florian MD Work Phone: [facility] Comment on above: 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of n ative coronary artery of [place] heart without angina pectoris; Essential hypertension; History of IA (myocardial infarction); Mixed hyperlipidemia; S/P PTCA (percutaneous transluminal coronary angioplasty); Stage 3a chronic kidney disease (CMS/HCC); Current smoker on some days; Type 2 diabetes mellitus without complication, with long-term current use of insulin ([facility]); Overweight with body mass index (BMI) of 27 to 27.9 in adult; Atherosclerotic heart disease of [place] coronary artery without angina pectoris Start: 09-25-2023 End: 09-25-2023 ambulatory Beth Lowe Other [employer] Other Start: 09-25-2023 Office outpatient vi sit 15 minutes Beth Lowe [facility] Neuro[facility] Start: 09-23-2023 Office outpatient vi sit 25 minutes Lolita Adorno [facility] [place] Start: 09-23-2023 End: 09-23-2023 ambulatory DO Lolita E Schwerer Work Phone: [employer] Other Start: 09-23-2023 End: 09-23-2023 Patient encounter procedure DO Lolita Schwerer Work Phone: [facility] Start: 09-18-2023 Postop follow up vis it related to original px Lyudmila White [facility] Orthopedics Start: 09-18-2023 End: 09-18-2023 ambulatory DO Lolita E Schwerer Work Phone: [facility] Work Phone: Start: 09-18-2023 End: 09-18-2023 Patient encounter procedure DO Lolita Schwerer Work Phone: [facility] [place] [facility] Start: 09-12-2023 End: 09-12-2023 ambulatory Ollita Schwerer Other [employer] Other Start: 09-12-2023 Telephone encounter Lolita Schwerer [facility] Start: 09-08-2023 End: 09-11-2023 Evaluation and management of inpatient DO Lolita Schwerer Work Phone: [facility]-[address] [place] [address] Critical Care Work Phone: Start: 08-21-2023 Office outpatient vi sit 15 minutes Lyudmila White [facility] Orthopedics Start: 08-21-2023 End: 08-21-2023 ambulatory DO Lolita E Schwerer Work Phone: [facility] Work Phone: Start: 08-21-2023 End: 08-21-2023 Patient encounter procedure DO Lolita Schwerer Work Phone: [facility] [place] [facility] Start: 07-31-2023 Postop follow up vis it related to original px Preito Olexa [facility] Orthopedics Start: 07-31-2023 End: 07-31-2023 ambulatory DO Lolita E Schwerer Work Phone: [facility] Work Phone: Start: 07-31-2023 End: 07-31-2023 Patient encounter procedure DO Lolita Schwerer Work Phone: [facility] [place] [facility] Start: 07-24-2023 End: 07-24-2023 ambulatory Prieto Santo Other [facility] [employer] Other Start: 07-24-2023 FQHC visit new patient Prieto Santo [facility] [place] [facility] Start: 07-23-2023 End: 07-23-2023 ambulatory Lolita Schwerer Other [facility] [employer] Other Start: 07-23-2023 Telephone encounter Lolita Schwerer [facility] Start: 07-22-2023 End: 07-22-2023 Emergency department patient visit DO Lolita Schwerer Work Phone: [facility]-Emergency Room Work Phone: Start: 06-18-2023 End: 06-18-2023 ambulatory Beth Lowe Other [employer] Other Start: 06-18-2023 Office outpatient vi sit 15 minutes Beth Lowe [facility] Neuro[facility] Start: 06-02-2023 End: 06-02-2023 ambulatory Lolita Schwerer Other [employer] Other Start: 06-02-2023 Office outpatient vi sit 15 minutes Lolita Schwerer [facility] [place] Start: 05-16-2023 End: 05-16-2023 ambulatory DO Lolita E Schwerer Work Phone: [facility] Work Phone: Start: 05-16-2023 End: 05-16-2023 Patient encounter procedure DO Lolita Schwerer Work Phone: [facility] [place] Work Phone: Start: 05-06-2023 End: 05-06-2023 ambulatory Beth Lowe Other [facility] [employer] Other Start: 05-06-2023 Office outpatient vi sit 15 minutes Beth Chrissy [facility] Neuro[facility] Start: 05-06-2023 End: 05-06-2023 Patient encounter procedure DO Lolita Schwerer Work Phone: [facility] [place] Work Phone: Start: 04-30-2023 End: 04-30-2023 ambulatory DO Lolita E Schwerer Work Phone: [facility] Work Phone: Start: 04-30-2023 End: 04-30-2023 Patient encounter procedure DO Lolita Schwerer Work Phone: [facility] [place] Work Phone: Start: 04-22-2023 Office outpatient vi sit 25 minutes Lolita E Schwerer Work Phone: [facility] 250 DO Work Phone: Start: 04-22-[address] Gabriela Florian Facility: Start: 04-15-2023 Patient encounter procedure Lolita E Schwerer Work Phone: [facility] 600 DO Work Phone: Start: 04-15-2023 Chart Update Lolita E Schw erer Work Phone: [facility]-[place] 600 DO Work Phone: Start: 04-15-2023 End: 04-15-2023 ambulatory DO Lolita E Schwerer Work Phone: [facility] Work Phone: Start: 04-15-2023 End: 04-15-2023 Patient encounter procedure DO Lolita Mendeserer Work Phone: [facility] [place] Work Phone: Start: 02-17-2023 Rx Renewal Lolita Thaddeus Schw erer Work Phone: [facility] 250 DO Work Phone: Start: 01-01-2023 End: 01-01-2023 ambulatory Lolita Mendeserer Other [employer] Other Start: 01-01-2023 Telephone encounter Lolita Mendeserer [facility] Start: 12-25-2022 End: 12-25-2022 ambulatory Beth Lowe Other [employer] Other Start: 12-25-2022 Postop follow up vis it related to original px Beth Lowe [facility] Start: 11-25-2022 End: 11-25-2022 ambulatory Lolita Mendeserer Other [employer] Other Start: 11-25-2022 Office outpatient vi sit 25 minutes Lolita Schwidar [facility] Start: 10-17-2022 End: 10-17-2022 ambulatory Beth Lowe Other [employer] Other Start: 10-17-2022 Postop follow up vis it related to original px Beth Lowe [facility] Start: 10-16-2022 Office outpatient vi sit 25 minutes Lolita E Schwerer Work Phone: [facility] 250 DO Work Phone: Start: 10-16-[address] Gabriela Florian Facility: Start: 10-02-2022 End: 10-06-2022 Admission to same day surgery center DO Lolita Schwerer Work Phone: [facility] [place] Start: 10-02-2022 End: 10-06-2022 ambulatory DO Lolita E Schwerer Work Phone: [facility] Work Phone: Start: 10-01-2022 End: 10-01-2022 ambulatory DO Lolita E Schwerer Work Phone: [facility] Work Phone: Start: 10-01-2022 End: 10-01-2022 Patient encounter procedure DO Lolita Schwerer Work Phone: [facility] [facility] Work Phone: Start: 09-18-2022 End: 09-18-2022 ambulatory DO Lolita E Schwerer Work Phone: [facility] Work Phone: Start: 09-18-2022 End: 09-18-2022 Patient encounter procedure DO Lolita Schwerer Work Phone: [facility]xx[facility] Testing Start: 08-19-2022 End: 08-19-2022 ambulatory Lolita Schwerer Other [facility] [employer] Other Start: 08-19-2022 Office outpatient vi sit 25 minutes Lolita Schwerer [facility] Start: 08-15-2022 End: 08-15-2022 ambulatory Clemente Miller Other [facility] [employer] Other Start: 08-15-2022 Office outpatient vi sit 40 minutes Clemente Miller [facility] [facility] Start: 07-15-2022 End: 07-15-2022 ambulatory Lolita Schwerer Other [employer] Other Start: 07-15-2022 Telephone encounter Lolita Aragonr [facility] [place] Start: 07-14-2022 End: 07-14-2022 Emergency department patient visit DO Lolita Schwerer Work Phone: [facility]Emergency [facility] Start: 07-08-2022 End: 07-08-2022 ambulatory DO Lolita Travis Schwerer Work Phone: [facility] Work Phone: Start: 07-08-2022 End: 07-08-2022 Discharged Recurring DO Lolita Schwerer Work Phone: [facility]-Physical Therapy [address] Start: 07-08-2022 Registered Recurring DO Araceli rush Schwerer Work Phone: [facility]-Physical Therapy [address] Start: 06-21-2022 End: 06-21-2022 ambulatory Clemente Miller Other [employer] Other Start: 06-21-2022 Telephone encounter Clemente Miller [facility] Manager Finance Start: 06-20-2022 End: 06-20-2022 ambulatory Clemente Miller Other [employer] Other Start: 06-20-2022 Office outpatient ne w 45 minutes Clemente Miller [facility] [facility] Start: 06-03-2022 End: 06-03-2022 ambulatory Lolita Schwerer Other [employer] Other Start: 06-03-2022 Telephone encounter Lolita Adorno [facility] [place] Start: 05-29-2022 End: 05-29-2022 Patient encounter procedure DO Lolita Schwerer Work Phone: [facility]-MRI [address] Start: 05-15-2022 End: 05-15-2022 Patient encounter procedure DO Lolita Schwerer Work Phone: [facility] Start: 05-14-2022 End: 05-14-2022 ambulatory Lolita Schwerer Other [employer] Other Start: 05-14-2022 Office outpatient vi sit 25 minutes Lolita Schwerer [facility] Start: 04-25-2022 End: 04-25-2022 ambulatory Lolita Schwerer Other [employer] Other Start: 04-25-2022 Telephone encounter Lolita Schwerer [facility] Start: 03-28-2022 Office outpatient vi sit 25 minutes Lolita E Schwerer Work Phone: [facility] 250 DO Work Phone: Start: 02-11-2022 End: 02-11-2022 ambulatory Lolita Schwerer Other [employer] Other Start: 02-11-2022 Office outpatient vi sit 25 minutes Lolita Schwerer [facility] Start: 11-26-2021 End: 11-26-2021 ambulatory Lolita Schwerer Other [employer] Other Start: 11-26-2021 Telephone encounter Lolita Schwerer [facility] Start: 11-13-2021 End: 11-13-2021 ambulatory Lolita Schwerer Other [employer] Other Start: 11-13-2021 Office outpatient vi sit 25 minutes Lolita Schwerer [facility] Start: 11-13-2021 Telephone encounter Lolita Schwerer [facility] Start: 11-02-2021 End: 11-02-2021 ambulatory Lolita Schwerer Other [employer] Other Start: 11-02-2021 Telephone encounter Lolita Schwerer [facility] [place] Start: 11-01-2021 End: 11-01-2021 ambulatory Lolita Schwerer Other [employer]) Other Start: 11-01-2021 Telephone encounter Lolita Mendeserer [facility] [place] Start: 10-31-2021 End: 10-31-2021 ambulatory Yohannes Mariesandy Other [employer]) Other Start: 10-31-2021 Patient encounter procedure Yohannes Granda [facility] Gastroenterology Start: 10-31-2021 Telephone encounter Lolita Schwerer [facility] [place] Start: 09-19-2021 Office outpatient vi sit 25 minutes Lolita Travis Schwerer Work Phone: [facility] 250 DO Work Phone: Start: 09-10-2021 Rx Renewal August Fontanez her Work Phone: [facility] [address] [place] Work Phone: Start: 08-28-2021 End: 08-28-2021 ambulatory Yohannes Granda Other [employer]) Other Start: 08-28-2021 Telephone encounter Yohannes PENN G Manager Finance Start: 08-09-2021 End: 08-09-2021 ambulatory Lolita Schwerer Other [employer]) Other Start: 08-09-2021 Office outpatient vi sit 25 minutes Lolita Schwerer [facility] [place] Start: 08-09-2021 Telephone encounter Lolita Schwerer [facility] [place] Start: 09-18-2017 Ambulatory BHARATHI COLMENARES Facility :[id number] Procedures Date Procedure Procedure Detail Performing Clinician Start: 05-11-2025 Plain radiography of pelvis Lolita Mendes erer DO Work Phone: Start: 05-11-2025 X-ray of left knee, four views Lolita Young chwerer DO Work Phone: Start: 04-28-2025 X-ray of left knee, four views Lolita Young chwerer DO Work Phone: Start: 11-23-2024 Bilateral mammography Lolita Mendeserer DO Work Phone: Start: 11-23-2024 Ultrasonography of left breast Lolita Young chwerer DO Work Phone: Start: 10-06-2024 Urine culture Lolita Mendeserer DO Work Phone: Start: 10-04-2024 Urine culture Lolita Mendeserer DO Work Phone: Start: 08-23-2024 Urine culture Lolita Mendeserer DO Work Phone: Start: 06-05-2024 Glucose blood [...] Chi pederson MD Work Phone: Start: 05-31-2024 Basic [...] 05-30-2024 Basic metabolic panel calcium total Solomon Wesley DO Work Phone: Start: 05-29-2024 Glucose blood [...] compl spec&colr d Rusty Amador APRN - [employer] Work Phone: Start: 05-26-2024 Glucose blood reagent strip Chi pederson MD Work Phone: Start: 05-26-2024 Hemoglobin glycosylated a1c Chi pederson MD Work Phone: Start: 05-25-2024 Ecg routine ecg w/least 12 lds trcg only w/o i&r Rusty Amador APRN - [employer] Work Phone: Start: 05-25-2024 Fluorescent nonnfct agt antb screen ea antibody Low Gomez MD Work Phone: Start: 05-25-2024 Ct lumbar spine w/o contrast material Edin Ahammad DO Work Phone: Start: 05-25-2024 End: 05-25-2024 Blood count complete auto&auto difrntl wbc Chi Ortiz MD Work Phone: Start: 05-24-2024 Mri spinal canal cervical w/o contrast matrl Rusty Amador APRN - [employer] Work Phone: Start: 05-24-2024 Glucose blood reagent [...] CULTURE 1 [place] BALTAZAR Work Phone: Start: 09-18-2023 Plain X-ray of right hand [...] Laminectomy w/Fix Implants (Not Applicable) DO Lolita Mendeserer Work Phone: Start: 10-02-2022 X-ray of lumbar [...] DTaP/Tdap/Td Vaccines (2 - Td or Tdap) [facility] Start: 02-28-2033 [facility] Start: 06-30-2025 End: 06-30-2025 Patient encounter procedure 06/30/2025 9:40 AM EDT Office Visit [place] [id number] [id number] Gabriela Florian MD [address] [facility], [address] [place] [address] [facility] Start: 06-02-2025 [facility] Start: 05-11-2025 Plain radiography of pelvis XR pelvis 1-2V [facility] Start: 05-11-2025 X-ray of left knee, four views XR knee LT 4V* [facility] Start: 05-11-2025 XR Knee - left 4 Views [facility] Start: 05-11-2025 XR Pelvis 1 or 2 Views [facility] Start: 10-16-2024 [facility] Start: 10-15-2024 [facility] Start: 10-14-2024 [facility] Start: 10-13-2024 [facility] Start: 10-12-2024 Choriogonadotropin.beta subunit [Presence] in Unspecified specimen [facility] Start: 10-12-2024 Estradiol (E2) [Mass/volume] in Serum or Plasma [facility] Start: 10-12-2024 Lutropin [Units/volume] in Serum or Plasma [facility] Start: 10-12-2024 End: 10-12-2024 [facility] Start: 10-11-2024 [facility] Start: 10-10-2024 Comprehensive metabolic 1999 panel - Serum or Plasma [facility] Start: 10-10-2024 [facility] Start: 10-09-2024 Comprehensive metabolic 1999 panel - Serum or Plasma [facility] Start: 10-09-2024 [facility] Start: 10-08-2024 Comprehensive metabolic 1999 panel - Serum or Plasma [facility] Start: 10-08-2024 End: 10-08-2024 [facility] Start: 10-07-2024 Comprehensive metabolic 1999 panel - Serum or Plasma [facility] Start: 10-07-2024 [facility] Start: 10-06-2024 Referral to peripheral vascular tech [facility] Start: 10-06-2024 [facility] Start: 10-06-2024 Hospital admission [facility] Start: 10-06-2024 Urine culture [facility] Start: 10-06-2024 Bacteria identified in Urine by Culture Urine Culture [facility] Start: 10-06-2024 [facility] Start: 10-04-2024 Referral to peripheral vascular tech [facility] Start: 10-04-2024 Hospital admission [facility] Start: 09-17-2024 COVID-19 Vaccine ( season) COVID-19 Vaccine () [facility] Start: 08-26-2024 Hemoglobin A1c measurement [employer] Start: 08-23-2024 Bacteria identified in Urine by Culture Urine Culture [facility] Start: 08-23-2024 Urine culture [facility] Start: 06-23-2024 End: 06-23-2024 Patient encounter procedure [facility] Comment on above: Arrived Start: 06-06-2024 Influenza vaccination Influenza Vaccine (#1) [facility] Start: 05-06-2024 Dot Start: 04-29-2024 End: 04-29-2024 Patient encounter procedure 04/29/2024 9:10 AM EDT Office Visit [facility] [address] [id number] Gabriela Florian MD 703 [facility] 2, [address] [address] [facility] Start: 11-09-2023 Dot Start: 10-16-2023 End: 10-16-2024 Alanine aminotransferase [Enzymatic activity/volume] in Serum or Plasma by With P-5'-P Alanine Aminotransferase Lab Routine 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[place] coronary artery of [place] heart without angina pectoris Mixed hyperlipidemia Expected: 10/16/2023 (Approximate), Expires: 10/16/2024 [facility] Work Phone: Comment on above: Expected: 10/16/2023 (Approximate), Expi res: 10/16/2024 Start: 10-16-2023 End: 10-16-2024 Aspartate aminotransferase [Enzymatic activity/volume] in Serum or Plasma by With P-5'-P Aspartate Aminotransferase Lab Routine 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of [place] coronary artery of [place] heart without angina pectoris Mixed hyperlipidemia Expected: 10/16/2023 (Approximate), Expires: 10/16/2024 [facility] Work Phone: Comment on above: Expected: 10/16/2023 (Approximate), Expi res: 10/16/2024 Start: 10-16-2023 End: 10-16-2024 Lipid 1996 panel - Serum or Plasma Lipid Panel Lab Routine 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of [place] coronary artery of [place] heart without angina pectoris Mixed hyperlipidemia Expected: 10/16/2023 (Approximate), Expires: 10/16/2024 [facility] Service Area Work Phone: Comment on above: Expected: 10/16/2023 (Approximate), Expi res: 10/16/2024 Start: 10-16-2023 FUV, Provider: Gabriela Florian, Status: Pen, Time: 9:10 AM FUV, Provider: Gabriela Florian, Status: Pen, Time: 9:10 AM -[facility] 250 DO Work Phone: Start: 10-06-2023 [facility] Start: 09-11-2023 [facility] Start: 09-09-2023 [facility] Start: 09-09-2023 Referral to peripheral vascular tech [facility] Start: 09-08-2023 Referral to explosive technician [facility] Start: 09-08-2023 Excision of Duodenum, Via Natural or Artificial Opening Endoscopic, Diagnostic Excision of Duodenum, Via Natural or Artificial Opening Endoscopic, Diagnostic [facility] Start: 09-08-2023 Excision of Stomach, Pylorus, Via Natural or Artificial Opening Endoscopic, Diagnostic Excision of Stomach, Pylorus, Via Natural or Artificial Opening Endoscopic, Diagnostic [facility] Start: 09-08-2023 Consultation [facility] Start: 09-08-2023 Hospital admission [facility] Start: 09-03-2023 COVID-19 Vaccine (4 - Moderna series) COVID-19 Vaccine (4 - Moderna series) [facility] Start: 04-22-2023 FUV, Provider: Gabriela Florian, Status: Pen, Time: 9:20 AM FUV, Provider: Gabriela Florian, Status: Pen, Time: 9:20 AM -[facility] 250 DO Work Phone: Start: 10-16-2022 FUV, Provider: Gabriela Florian, Status: Pen, Time: 10:20 AM FUV, Provider: Gabriela Florian, Status: Pen, Time: 10:20 AM -[facility] 250 DO Work Phone: Start: 10-06-2022 [facility] Start: 10-03-2022 Referral to clinical diagnostic medical sonographer [facility] Start: 03-28-2022 FUV, Provider: Gabriela Florian, Status: Pen, Time: 10:40 AM FUV, Provider: Gabriela Florian, Status: Pen, Time: 10:40 AM [facility] 250 DO Work Phone: Start: 09-19-2021 FUV, Provider: Gabriela Florian, Status: Pen, Time: 10:00 AM FUV, Provider: Gabriela Florian, Status: Pen, Time: 10:00 AM -[facility] 250[address] [place] Work Phone: Start: 2015 Abdominal aortic aneurysm screening [facility] Start: 2010 RSV High Risk: (Elderly (60+) or Population) (1 - Risk 60-74 years 1-dose series) RSV High Risk: (Elderly (60+) or Population) (1 - Risk 60-74 years 1-dose series) [facility] Start: 2010 [facility]: 1995 Screening for malignant neoplasm of colon [facility] Start: 1969 Urine screening for protein Diabetes: Urine Protein Screening [facility] Start: 1968 Hepatitis C screening [facility] Start: 1962 [email or web address] Start: 1960 Diabetic foot examination Diabetes: Foot Exam [facility] Start: 1960 Glaucoma screening Diabetes: Retinopathy Screening [facility] Start: 1960 Lipid panel [facility] [email or web address] Start: 1950 Hemoglobin A1c measurement Diabetes: Hemoglobin A1C [facility] Start: 1950 Lipid panel Lipid Panel [facility] Start: 1950 Medicare Annual Wellness Visit Medicare Annual Wellness Visit (AWV) [facility] Start: 1950 Screening for malignant neoplasm of colon [facility] 24 hour urine measurement [facility] Blood chemistry [facility] BLOOD CULTURE 1 BLOOD CULTURE 1 Lab Routine 05/21/2024 7:55 PM EDT [facility] Work Phone: BLOOD CULTURE 2 BLOOD CULTURE 2 Lab Routine 05/21/2024 8:23 PM EDT [facility] Comprehensive metabo lic 1999 panel - Serum or Plasma [facility] Continuous pulse oximetry LORENA N [email or web address] Elastase.pancreatic [Mass/mass] in Stool [facility] Electrophoresis: [id number] [facility] Electrophoresis: [id number] [facility] Electrophoresis: beta-globulin [facility] Glucose [Mass/volume ] in Serum or Plasma [facility] [email or web address] Glucose [Mass/volume ] in Serum or Plasma [facility] [email or web address] Immunofixation for Urine [facility] Measurement of monoc lonal protein concentration [facility] Oxygen therapy [Mini mum Data Set] [facility] [email or web address] Oxygen therapy [Mini mum Data Set] [facility] [email or web address] Patient Education [facility] Work Phone: Patient referral [facility] Work Phone: Protein [Mass/volume ] in Urine [facility] Renal function 1999 panel - Serum or Plasma [facility] Renal function 1999 panel - Serum or Plasma [facility] Renal function 2000 panel - Serum or Plasma [facility] Renal function 1999 panel - Serum or Plasma [facility] Spirometry panel [facility] [email or web address] Testosterone Free [Mass/volume] in Serum or Plasma [facility] XR Knee - left 4 Views [facility] Immunizations Immunization Date Immunization Notes Care Provider Frank bravo 04-17-2025 COVID-19 mRNA Bivale nt Booster (Pfizer) Lolita Schwerer DO Work Phone: [facility] 07-06-2024 influenza, seasonal, injectable Gabriela Florian MD Work Phone: [facility] Work Phone: 07-06-2024 Moderna SARS-CoV-2 Vaccination Gabriela Florian MD Work Phone: [facility] Work Phone: 07-09-2023 COVID-19 Moderna (SPIKEVAX) Lolita Schwerer Other [facility] 05-21-2023 Fluzone QIV High-Dos e 65YR+ [facility] 05-21-2023 influenza virus vaccine, unspecified formulation [place] BALTAZAR Work Phone: [facility] 02-28-2023 Prevnar 20 0.5 ML Intramuscular Suspension Prefilled Syringe Lolita E Schwerer Work Phone: [facility] 02-28-2023 tetanus toxoid, redu michel diphtheria toxoid, and acellular pertussis vaccine, adsorbed Lolita E Schwerer Work Phone: [facility] 07-16-2022 COVID-19 Moderna (BIvalent) Clemente Miller Other [facility] 06-26-2022 Fluzone High-Dose Quadrivalent 0.7 ML Intramuscular Suspension Prefilled Syringe Lolita E Schwerer Work Phone: [facility] 250 DO Work Phone: 06-26-2022 influenza, seasonal, injectable Lolita Schwerer Other [facility] [employer] Other 09-13-2021 Moderna COVID-19 Vaccine 100 MCG/0.5ML Intramuscular Suspension Lolita E Schwerer Work Phone: [facility] 06-18-2021 influenza, seasonal, injectable Lolita Schwerer Other [facility] 06-08-2021 Fluad Quadrivalent 0 .5 ML Intramuscular Prefilled Syringe Lolita E Schwerer Work Phone: [facility] 250 DO Work Phone: 01-24-2021 COVID-19 Vaccine Moderna - Documentation Purposes Only Lolita Schwerer Other [facility] 12-27-2020 COVID-19 Vaccine Moderna - Documentation Purposes Only Lolita Schwerer Other [facility] 08-19-2020 zoster vaccine recombinant Lolita Schwerer Other [facility] 06-27-2020 influenza, seasonal, injectable Lolita E Schwerer Work Phone: [facility] 250 DO Work Phone: 06-14-2020 Fluzone High-Dose Quadrivalent 0.7 ML Intramuscular Suspension Prefilled Syringe Lolita E Schwerer Work Phone: [facility] 250 DO Work Phone: 06-14-2020 zoster vaccine recombinant Lolita Schwerer Other [facility] 07-06-2019 influenza virus vaccine, unspecified formulation Lolita E Schwerer Work Phone: [facility] 250 DO Work Phone: 06-21-2019 pneumococcal conjuga te vaccine, 13 valent Lolita Schwerer Other [facility] 06-14-2019 influenza, high dose seasonal, preservative-free Lolita E Schwerer Work Phone: [facility] 250 DO Work Phone: 06-19-2018 influenza virus vaccine, unspecified formulation Lolita E Schwerer Work Phone: [facility] 250 DO Work Phone: 06-19-2018 influenza, high dose seasonal, preservative-free Lolita E Schwerer Work Phone: [facility] 250 DO Work Phone: 08-05-2017 zoster vaccine, live Lolita Schwerer Other [facility] 07-06-2017 influenza, high dose seasonal, preservative-free Lolita E Schwerer Work Phone: [place] [address] DO Work Phone: 07-06-2017 pneumococcal polysaccharide vaccine, 23 valent Lolita E Schwerer Work Phone: [facility] 250 DO Work Phone: 07-06-2017 zoster vaccine, live Lolita E Schwerer Work Phone: [facility] 250 DO Work Phone: 05-14-2017 influenza, high dose seasonal, preservative-free Lolita E Schwerer Work Phone: [facility] 250 DO Work Phone: 06-22-2016 pneumococcal polysaccharide vaccine, 23 valent Lolita Schwerer Other [facility] 05-23-2016 influenza, high dose seasonal, preservative-free Lolita E Schwerer Work Phone: [facility] 250 DO Work Phone: influenza virus vaccine, unspecified formulation Lolita E Schwerer Work Phone: -[facility] 250 DO Work Phone: Comment on above: 2010 2008 Payers Date Payer Category Payer Medicare (Managed Care) PILO Hicks [employer] [id number] 2024 Medicare [id number] 2024 Unknown [id number] 2024 Self-pay [id number] 2023 Medicare HUMANA MEDICARE HUMANA GOLD CHOICE [id number] 2023-Present [address] [address] [place] [address] [id number] 2022 Private Health Insurance HUMANA HUMANA HMO/POS [id number] 2022-Present [address] [address] [place] [address] [id number] 2022 Medicare [id number] 2022 Medicare [id number] 2..[id number] 1950 Unknown [id number] 2.16.840.1.266837.3.579.2. 356 1950 Unknown [id number] 2.16.840.1.594115.3.579.2. 356 1950 Unknown [id number] 2.16.840.1.719415.3.579.2. 1259 1950 Unknown [id number] 2.16.840.1.286944.3.579.2. 1286 1950 Unknown [id number] 2.16.840.1.561886.3.579.2. 1286 1950 Unknown [id number] 2.16.840.1.764697.3.579.2. 1286 1950 Unknown [id number] 2..840.1.885380.3.579.2. 1286 1950 Unknown [id number] 2..840.1.695128.3.579.2. 175 1950 Unknown [id number] 2.840.1.874626.3.579.2. 1244 1950 Unknown [id number] 2..840.1.642689.3.579.2. 1244 Medicare [id number] Medicare [id number] Unknown Unknown [id number] 2..840.1.917913.3.579.2. 531 Unknown [id number] 2.840.1.271954.3.579.2. 531 Unknown [id number] 2.840.1.113474.3.579.2. 531 Unknown [id number] 2..840.1.883660.3.579.2. 531 Unknown [id number] 2.16.840.1.821967.3.579.2. 531 Unknown [id number] 2.16.840.1.135300.3.579.2. 531 Unknown [id number] 2..840.1.296995.3.579.2. 531 Unknown [id number] 2.16.840.1.025215.3.579.2. 531 Unknown [id number] 2.16.840.1.071251.3.579.2. 531 Unknown [id number] 2.16.840.1.682262.3.579.2. 531 Unknown [id number] 2.16.840.1.665765.3.579.2. 531 Unknown [id number] 2.16.840.1.232414.3.579.2. 531 Social History Date Type Detail Facility Start: 09-24-2023 End: 11-18-2024 No illicit drug use No illicit drug use [facility] [employer] Other Comment on above: 2 cups of coffee philippe ly; 1-2 packs weekly; 1 pack every 2 weeks ; Start: 09-24-2023 End: 11-18-2024 Sex Assigned At [facility] [employer] Other Start: 07-14-2022 End: 10-06-2024 Tobacco smoking status NHIS Smoker (finding) [facility] Start: 1950 Sex Assigned At Male [facility] Start: 09-24-2023 End: 10-06-2024 Tobacco smoking status NHIS Smokes tobacco daily [facility] Work Phone: History of tobacco use Cigarette Smoker [facility] Work Phone: Start: 09-24-2023 End: 05-24-2024 Tobacco use and exposure Smokeless tobacco non-user [facility] Work Phone: Start: 10-16-2023 End: 11-18-2024 Alcohol intake Lifetime non-drinker (finding) [facility] Work Phone: Start: 1950 Sex Assigned At Not on file [facility] Work Phone: Start: 10-06-2023 End: 11-18-2024 Exposure to SARS-CoV-2 (event) Not sure [facility] Start: 11-06-2023 [facility] Start: 08-24-2024 End: 03-10-2025 Sex Male (finding) [facility] Start: 06-23-2023 [facility] consumption unknown [facility] Start: 06-23-2023 End: 06-23-2024 Alcoholic beverage intake Ex-drinker (finding) [facility] Has the [employer], or [employer] threatened to shut off services in your home in past 12Mo No Dot How often to you hav e a drink containing alcohol? Never Dot How many standard drinks containing alcohol do you have on a typical day? Dot (I/We) worried eyad er (my/our) food would run out before (I/we) got money to buy more. Sometimes true Dot The food that (I/we) bought just didn't last, and (I/we) didn't have money to get more. Never true Dot Start: 05-23-2024 Gender identity Identifies as male gender (finding) Dot Start: 05-23-2024 Sexual orientation Heterosexual (steven ball) Dot Medical Equipment Procedure Code Equipment Code Equipment [...] 08-24-2017 CANCELLOUS 15CC CRUSHED FDA Start: 10-02-2022 [id number] FDA Start: 10-02-2022 [id number] FDA Start: 10-02-2022 [id number] FDA Start: 10-02-2022 [id number] FDA Start: 10-02-2022 [id number] FDA Start: 10-02-2022 CL STENT PROMUS REGAN [...] 05-27-2024 [id number] Start: 05-27-2024 [id number] Start: 05-27-2024 [id number], [id number] FDA Start: 05-27-2024 [id number], [id number] FDA Start: 05-27-2024 [id number] Start: 05-27-2024 [id number] Start: 05-27-2024 [id number] Start: 05-27-2024 [id number] Start: 05-27-2024 [id number] Start: 05-27-2024 FDA Start: 08-24-2017 FDA Start: 08-24-2017 FDA Start: 10-02-2022 FDA Start: 08-24-2017 FDA Start: 08-24-2017 FDA Start: 10-02-2022 FDA Start: 08-24-2017 FDA Start: 08-24-2017 FDA Start: 10-02-2022 FDA Start: 08-24-2017 FDA Start: 08-24-2017 FDA Start: 10-02-2022 CL STENT PROMUS REGAN 4.0 X 16 FDA Start: 08-24-2017 CL STENT XIENCE ALP 4.0 X 08 FDA Start: 08-24-2017 CANCELLOUS 15CC CRUSHED FDA Start: 10-02-2022 Pen Needle, Diab etic (Bd Rachelle 2nd Gen Pen Needle) 32 gauge x 5/32 needle Start: 10-29-2024 Pen Needle, Diab etic (Bd Ultra-Fine Short Pen Needle) 31 gauge x 5/16 needle Start: 10-14-2024 End: 10-29-2024 CL STENT PROMUS REGAN 4.0 X 16 FDA Start: 08-24-2017 CL STENT XIENCE ALP 4.0 X 08 FDA Start: 08-24-2017 CANCELLOUS 15CC CRUSHED FDA Start: 10-02-2022 Pen Needle, Diab etic (Bd Rachelle 2nd Gen Pen Needle) 32 gauge x 5/32 needle Start: 10-29-2024 Pen Needle, Diab etic (Bd Ultra-Fine Short Pen Needle) 31 gauge x 5/16 needle Start: 10-14-2024 End: 10-29-2024 CL STENT PROMUS REGAN 4.0 X 16 FDA Start: 08-24-2017 CL STENT XIENCE ALP 4.0 X 08 FDA Start: 08-24-2017 CANCELLOUS 15CC CRUSHED FDA Start: 10-02-2022 Pen Needle, Diab etic (Bd Rachelle 2nd Gen Pen Needle) 32 gauge x 5/32 needle Start: 10-29-2024 Pen Needle, Diab etic (Bd Ultra-Fine Short Pen Needle) 31 gauge x 5/16 needle Start: 10-14-2024 End: 10-29-2024 CL STENT PROMUS REGAN 4.0 X 16 FDA Start: 08-24-2017 CL STENT XIENCE ALP 4.0 X 08 FDA Start: 08-24-2017 CANCELLOUS 15CC CRUSHED FDA Start: 10-02-2022 Pen Needle, Diab etic (Bd Rachelle 2nd Gen Pen Needle) 32 gauge x 5/32 needle Start: 10-29-2024 Pen Needle, Diab etic (Bd Ultra-Fine Short Pen Needle) 31 gauge x 5/16 needle Start: 10-14-2024 End: 10-29-2024 CL STENT PROMUS REGAN 4.0 X 16 FDA Start: 08-24-2017 CL STENT XIENCE ALP 4.0 X 08 FDA Start: 08-24-2017 CANCELLOUS 15CC CRUSHED FDA Start: 10-02-2022 Pen Needle, Diab etic (Bd Rachelle 2nd Gen Pen Needle) 32 gauge x 5/32 needle Start: 10-29-2024 Pen Needle, Diab etic (Bd Ultra-Fine Short Pen Needle) 31 gauge x 5/16 needle Start: 10-14-2024 End: 10-29-2024 CL STENT PROMUS REGAN 4.0 X 16 FDA Start: 08-24-2017 CL STENT XIENCE ALP 4.0 X 08 FDA Start: 08-24-2017 CANCELLOUS 15CC CRUSHED FDA Start: 10-02-2022 Pen Needle, Diab etic (Bd Rachelle 2nd Gen Pen Needle) 32 gauge x 5/32 needle Start: 10-29-2024 Pen Needle, Diab etic (Bd Ultra-Fine Short Pen Needle) 31 gauge x 5/16 needle Start: 10-14-2024 End: 10-29-2024 Goals Date Patient Goal Desired Activity /State Functional Status Date Assessment Result Facility 10-08-2024 Functional status Patient at Baseline [facility] Work Phone: 10-06-2024 Functional status Patient at Baseline [facility] Work Phone: 09-11-2023 Functional status Patient at Baseline [facility] Work Phone: 10-06-2022 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 status 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 [facility] Work Phone: Mental Status Date Assessment Result Facility 10-08-2024 Cognitive function Patient at Baseline [facility] Work Phone: 10-06-2024 Cognitive function Patient at Baseline [facility] Work Phone: 09-11-2023 Cognitive function Cognitive Sta tus Patient at Baseline [facility] Work Phone: 10-06-2022 Cognitive function Cognitive Sta tus Patient at Baseline [facility] Work Phone: Clinical Notes 08-09-2021 to 04-28-2025 Note Date & Type Note Facility 04-28-2025 Evaluation note Diagnosis Onset Date Resolution MCL sprain of left knee acute J gallo 2024 11:50am MCL sprain of left knee acute A ugust 2024 11:29am Anemia of renal disease acute A ugust 2024 1:25pm CAD (coronary artery disease) acute May 24 1:25pm Chronic kidney disease, stage IV (severe) acute May 24, 025 1:25pm Chronic pancreatitis acute Augu 2024 1:25pm HTN (hypertension) acute May 24, 2025 1:25pm Hyperlipemia acute May 24, 2025 1:25pm Hypertensive chronic kidney disease with stage 1 through stage 4 chronic ki acute May 24 1:25pm Lumbar stenosis with neurogenic claudication acute May 062024 1:25pm MCL sprain of left knee acute A ugust 2024 1:25pm Medicare annual wellness visit, subsequent acute May 24 1:25pm Type 2 diabetes mellitus with diabetic chronic kidney disease acute May 242024 1:25pm [facility] Work Phone: 1(501) 408-336205-19-2025 Evaluation note* Diagnosis Onset Date Resolution Status Admit Date Chronic kidney disease, stag e IV (severe) acute February 21, 2025 1 :09pm Diabetes mellitus acute February 1:09pm HTN (hypertension) acute February 212024 1:09pm Hyperlipemia acute February 21 1:09pm Hypokalemia acute February 21 1:09pm Type 2 diabetes mellitus wit h diabetic chronic kidney disease acute February 21, 2025 1:09pm MCL sprain of left knee acute J gallo 2024 11:50am [facility] Work Phone: 1(988) 521-167205-19-2025 Evaluation note* Diagnosis Onset Date Resolution Status Admit Date Chronic kidney disease, stag e IV (severe) acute February 21, 2025 1 :09pm Diabetes mellitus acute February 1:09pm HTN (hypertension) acute February 212024 1:09pm Hyperlipemia acute February 21 1:09pm Hypokalemia acute February 21 1:09pm Type 2 diabetes mellitus wit h diabetic chronic kidney disease acute February 21, 2025 1:09pm MCL sprain of left knee acute J gallo 2024 11:50am MCL sprain of left knee acute A ugust 2024 11:29am [facility] Work Phone: 1(986) 508-499303-17-2025 Evaluation note* Diagnosis Onset Date Resolution Status Admit Date Anemia of renal disease acute M arch 2024 12:58pm Hypertensive chronic kidney disease with stage 1 through stage 4 chronic ki acute December 20, 2024 12:58pm Secondary hyperparathyroidism acute December 20, 2024 12:58pm Type 2 diabetes mellitus wit h diabetic chronic kidney disease acute December 20, 2024 12:58pm Chronic kidney disease, stag e III (moderate) deleted December 20, 2024 12:58pm Dyslipidemia deleted December 20, 2024 12:58pm Chronic kidney disease, stag e IV (severe) acute February 21, 2025 1:09pm Diabetes mellitus acute February, 2024 1:09pm HTN (hypertension) acute February 212024 1:09pm Hyperlipemia acute February 21 1:09pm Hypokalemia acute February 21 1:09pm Type 2 diabetes mellitus wit h diabetic chronic kidney disease acute February 21, 2025 1:09pm [facility] Work Phone: 1(551) 850-134002-13-2025 History of Present illness Narrative* Gabriela Florian MD - 11/18/2024 9:10 AM EST Subjective Gage Lugo is a 74 y.o. male Chief Complaint Follow-up HPI Patient is in the office for follow-up for the problems noted below. Since his last visit last Aprilhe had couple admissions to hospitals. He was [facility] in [place] for back and neck pain underwent surgery without cardiac complications, the records from the admission were reviewed. Also in October 2024 he was admitted to [facility] with hypertensive crisis and severe hyperkalemia and worsening renal function. There was no cardiac events during the visit. The records were reviewed as well. He is presently doing well and denies any symptoms suggestive angina pectoris. His pressure is under control. Blood work from mid October 2024 were reviewed and his potassium is below normal. He follows closely with nephrology. His weight is several pounds below his previous weight. He continues smoke nearly half a pack of cigarettes per day. I discussed with the patient the necessity of stopping tobacco use as soon as possible. He does not have COPD. He has not needed nitroglycerin use. ASSESSMENT AND PLAN: 1. Coronary artery disease, stable. No cardiac investigations are needed continue aggressive risk factors modifications. Emphasized the need for tobacco cessation 2. Status post bare metal stent in the right coronary artery in 2006 with repeat angioplasty of theRCA 2016. Nuclear stress test September 2020 revealed inferolateral infarction EF 52%, no ischemia, risk factors are under control except for tobacco use 3. Stage IV chronic kidney disease followed by nephrology, had recent admission to the [facility] 4. Hyperlipidemia, under excellent control 5. Essential hypertension, under control. 6. Overweight, encouraged patient to cut back calorie intake and exercise on regular basis. 7. 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 No heart failure or LV systolic dysfunction. Secondary preventive measures are in place 8. Left ventricle ejection fraction 50-55% by echo 2020, present medical therapy will be left unchanged 9. active tobacco use, encouraged the patient to quit smoking completely. Review of Systems All other systems reviewed and are negative. Vitals: 11/18/24 0910 BP: 112/66 BP Location: Left arm Patient Position: Sitting Pulse: 72 Weight: 72.6 kg (160 lb) Height: 1.651 m (5' 5 ) Objective Physical Exam Constitutional: Appearance: Normal appearance. HENT: Nose: Nose normal. Neck: Vascular: No carotid bruit. Cardiovascular: Rate and Rhythm: Normal rate. Pulses: Normal pulses. Heart sounds: Normal heart sounds. Pulmonary: Effort: Pulmonary effort is normal. Abdominal: General: Bowel sounds are normal. Palpations: Abdomen is soft. Musculoskeletal: General: Normal range of motion. Cervical back: Normal range of motion. Right lower leg: No edema. Left lower leg: No edema. Skin: General: Skin is warm and dry. Neurological: General: No focal deficit present. Mental Status: He is alert. Psychiatric: Mood and Affect: Mood normal. Behavior: Behavior normal. Thought Content: Thought content normal. Judgment: Judgment normal. Allergies Oxycodone-acetaminophen, Titi inhibitors, Amlodipine, Aspirin, and Lokelma [sodium zirconium cyclosilicate] Current Medications Current Outpatient Medications: aspirin 81 mg EC tablet, TAKE 1 TABLET BY MOUTH EVERY DAY DIRECTED, Disp: 90 tablet, Rfl: 3 cloNIDine (Catapres) 0.1 mg tablet, Take 1 tablet (0.1 mg) by mouth 2 times a day., Disp: , Rfl: cyanocobalamin (Vitamin B-12) 1,000 mcg tablet, Take 1 tablet (1,000 mcg) by mouth once daily., Disp: , Rfl: cyclobenzaprine (Flexeril) 10 mg tablet, Take 1 tablet (10 mg) by mouth as needed at bedtime., Disp: , Rfl: ergocalciferol (Vitamin D-2) 1.25 MG (33540 UT) capsule, Take 1 capsule (1,250 mcg) by mouth 1 (one) time per week., Disp: , Rfl: famotidine (Pepcid) 20 mg tablet, Take 1 tablet (20 mg) by mouth once daily., Disp: , Rfl: ferrous sulfate, 325 mg ferrous sulfate, tablet, Take 1 tablet (325 mg) by mouth once daily., Disp:, Rfl: furosemide (Lasix) 40 mg tablet, Take 1 tablet (40 mg) by mouth early in the morning.., Disp: , Rfl: Lantus Solostar U-100 Insulin [...] mouth 2 times daily (morning and late afternoon)., Disp: 180 tablet, Rfl: 3 hydrALAZINE (Apresoline) 50 mg tablet, Take 1.5 tablets (75 mg) by mouth 2 times a day. Take with food., Disp: 270 tablet, Rfl: 3 isosorbide mononitrate ER (Imdur) 30 mg 24 hr tablet, Take 1 tablet (30 mg) by mouth once daily., Disp: 90 tablet, Rfl: 3 nitroglycerin (Nitrostat) 0.4 mg SL tablet, Place 1 tablet (0.4 mg) under the tongue every 5 minutes if needed for chest pain., Disp: 25 tablet, Rfl: 3 Assessment/Plan 1. 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of [place] coronary artery of [place] heart without angina pectoris Follow Up In Cardiology Follow Up In Cardiology atorvastatin (Lipitor) 20 mg tablet carvedilol (Coreg) 25 mg tablet hydrALAZINE (Apresoline) 50 mg tablet isosorbide mononitrate ER (Imdur) 30 mg 24 hr tablet nitroglycerin (Nitrostat) 0.4 mg SL tablet 2. Essential hypertension hydrALAZINE (Apresoline) 50 mg tablet 3. History of IA (myocardial infarction) isosorbide mononitrate ER (Imdur) 30 mg 24 hr tablet nitroglycerin (Nitrostat) 0.4 mg SL tablet 4. Mixed hyperlipidemia 5. S/P PTCA (percutaneous transluminal coronary angioplasty) 6. Type 2 diabetes mellitus with stage 3a chronic kidney disease, with long-term current use of insulin (Multi) 7. Stage 4 chronic kidney disease (Multi) 8. Current smoker on some days 9. BMI 26.0-26.9,adult Scribe Attestation By signing my name below, I, Jennifer Bellamy RN , Scribe attest that this documentation has been prepared under the direction and in the presence of Gabriela Florian MD. Provider Attestation - Scribe documentation All medical record entries made by the Scribe were at my direction and personally dictated by me. Ihave reviewed the chart and agree that the record accurately reflects my personal performance of the history, physical exam, discussion and plan. [facility] Phone: 1(607) 701-394202-13-2025 Instructions* Patient Instructions* Jennifer Londono RN - 11/18/2024 9:10 AM EST Please bring all medicines, vitamins, and herbal supplements with you when you come to the office. Prescriptions will not be filled unless you are compliant with your follow up appointments or have a follow up appointment scheduled as per instruction of your physician. Refills should be requested at the time of your visit. BMI was above normal measurement. Current weight: 72.6 kg (160 lb) Weight change since last visit (-) denotes wt loss -8 lbs Weight loss needed to achieve BMI 25: 10.1 Lbs Weight loss needed to achieve BMI 30: -19.9 Lbs Provided instructions on dietary changes Provided instructions on exercise. [facility] Work Phone: 1(178) 495-340601-03-2025 Progress note Author iTto Martinez [facility] Note Date/Time October 08, 2024 1: 44pm [facility] [address] [place] [address] Nephrology Progress Note Signed Patient: Gage Lugo MR#: [id number] : 1950 Acct:[id number] Age/Sex: 74 / M Adm Date: 5 Loc: 3T Room: [address] [place] [address] Type: ADM IN Attending Dr: Matheus Robison [...] (Aspirin 81 Mg Tab.Chew) [facility] Stop: 10/07/25 08:59 Last Admin: 10/08/24 08:15 Dose: 81 mg Atorvastatin Calcium (Atorvastatin 20 Mg Tablet) 20 mg PO QHS [facility] Stop: 10/06/25 21:59 Last Admin: 10/07/24 21:19 Dose: 20 mg Carvedilol (Carvedilol 25 Mg Tablet) 25 mg PO BID.WITH.MEALS [facility] Stop: 10/07/25 07:59 Last Admin: 10/08/24 08:15 Dose: 25 mg Clonidine HCl (Clonidine 0.1 Mg Tablet) 0.1 mg PO Q12HR [facility] Stop: 10/07/25 08:59 Last Admin: 10/08/24 08:15 Dose: 0.1 mg Cyanocobalamin (Cyanocobalamin 1,000 Mcg Tablet) 1,000 mcg PO QAM [facility] Stop: 10/07/25 08:59 Last Admin: 10/08/24 08:15 Dose: 1,000 mcg Cyclobenzaprine HCl (Cyclobenzaprine 10 Mg Tablet) 10 mg PO QHS PRN PRN Reason: spasms Stop: 10/06/25 21:59 Dextrose (Dextrose 50% In Water 25 Gm/50 Ml Syringe) 0 gm IV-PUSH PRN PRN PRN Reason: Hypoglycemia Stop: 10/06/25 17:22 Enoxaparin Sodium (Enoxaparin 30 Mg/0.3 Ml Syringe) 30 mg SUBCUT DAILY@10 [facility] Stop: 10/07/25 09:59 Last Admin: 10/08/24 09:37 Dose: Not Given Ergocalciferol (Ergocalciferol 1,250 Mcg (50,000 Units) Capsule) 1,250 mcg PO Tu@0900 [facility] Stop: 10/12/25 08:59 Ferrous Sulfate (Ferrous Sulfate 324 Mg Tablet.Dr) 324 mg PO DAILY [facility] Stop: 10/07/25 08:59 Last Admin: 10/08/24 08:15 Dose: 324 mg Gabapentin (Gabapentin 300 Mg Capsule) 300 mg PO BID [facility] Stop: 10/06/25 20:59 Last Admin: 10/08/24 08:15 Dose: 300 mg Glucose (Dextrose 40% Gel 15 Gm Tube) 0 gm PO PRN PRN PRN Reason: Hypoglycemia Stop: 10/06/25 17:22 Hydralazine HCl (Hydralazine 50 Mg Tablet) 100 mg PO TID [facility] Stop: 10/06/25 21:59 Last Admin: 10/08/24 08:15 Dose: 100 mg Insulin Aspart (Insulin Aspart 300 Units/3 Ml) 0 units SUBCUT TID.[facility]; Protocol Stop: 10/06/25 21:59 Last Admin: 10/08/24 11:52 Dose: 2 units Insulin Glargine (Insulin Glargine 300 Units/3 Ml Insuln.Pen) 10 units SUBCUT BID [facility] Stop: 10/06/25 20:59 Last Admin: 10/08/24 08:15 Dose: 10 units Isosorbide Mononitrate (Isosorbide Mononitrate 24hr Er 30 Mg Tab.Er.24h) 30 mg PO QAM [facility] Stop: 10/07/25 08:59 Last Admin: 10/08/24 08:15 Dose: 30 mg Loratadine (Loratadine 10 Mg Tablet) 10 mg PO BID [facility] Stop: 10/06/25 20:59 Last Admin: 10/08/24 08:15 Dose: 10 mg Magnesium Oxide (Magnesium Oxide 400 Mg Tablet) 400 mg PO BID [facility] Stop: 10/09/24 10:29 Last Admin: 10/08/24 08:15 Dose: 400 mg Multivitamins (Multivitamin 1 Tab Tablet) 1 tab PO DAILY [facility] Stop: 10/07/25 08:59 Last Admin: 10/08/24 08:15 [...] 10 Gm Powd.Pack) 10 gm PO DAILY [facility]; Protocol Stop: 10/07/25 08:59 Last Admin: 10/08/24 [...] <Electronically signed by Tito Martinez MD> 10/08/24 0990 [facility] Work Phone: 1(877) 779-359901-03-2025 Discharge summary Author Matheus Robison [facility] Note Date/Time October 08, 2024 12 :41pm [facility] [address] [place] [address] Discharge Summary Signed with Addenda Patient: Gage Lugo MR#: [id number] : 1950 Acct:[id number] Age/Sex: 74 / M Adm Date: 5 Loc: Room: [address] [place] [address]: Matheus Robison MD Copies to: MD Lolita Salinas, DO~ ADDENDUM1 Discharge summary-nephrology is also recommended Lokelma daily for hyperkalemia and outpatient BMP and follow-up with peripheral vascular tech. Addendum Documented By: Matheus Robison MD 10/08/24 [...] improved. His potassium is down to 4.2. 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 He is also recommended low potassium diet. [...] % (Auto) 49.3, Lymph % (Auto) 34.9, Camp % (Auto) 12.6, Eos % (Auto) 2.7, Baso % (Auto) 0.5, Nucleat RBC Rel Count 0.1, Neut # (Auto) 3.7, Lymph # (Auto) 2.6, Camp # (Auto) 0.9 H, Eos # (Auto) [...] signed by Matheus Robison MD> 10/08/24 1235 [facility] Work Phone: 1(165) 245-359101-03-2025 [place] [address] Nephrology Progress Note Signed Patient: Gage Lugo MR#: [id number] : 1950 Acct:[id number] Age/Sex: 74 / M Adm Date: 5 Loc: Room: [address] [place] [address] Type: ADM IN Attending Dr: Matheus Robison [...] 81 Mg Tab.Chew) 81 mg PO QAM [facility] Stop: 10/07/25 08:59 Last Admin: 10/08/24 08:15 Dose: 81 mg Atorvastatin Calcium (Atorvastatin 20 Mg Tablet) 20 mg PO QHS [facility] Stop: 10/06/25 21:59 Last Admin: 10/07/24 21:19 Dose: 20 mg Carvedilol (Carvedilol 25 Mg Tablet) 25 mg PO BID.WITH.MEALS [facility] Stop: 10/07/25 07:59 Last Admin: 10/08/24 08:15 Dose: 25 mg Clonidine HCl (Clonidine 0.1 Mg Tablet) 0.1 mg PO Q12HR [facility] Stop: 10/07/25 08:59 Last Admin: 10/08/24 08:15 Dose: 0.1 mg Cyanocobalamin (Cyanocobalamin 1,000 Mcg Tablet) 1,000 mcg PO QAM [facility] Stop: 10/07/25 08:59 Last Admin: 10/08/24 08:15 Dose: 1,000 mcg Cyclobenzaprine HCl (Cyclobenzaprine 10 Mg Tablet) 10 mg PO QHS PRN PRN Reason: spasms Stop: 10/06/25 21:59 Dextrose (Dextrose 50% In Water 25 Gm/50 Ml Syringe) 0 gm IV-PUSH PRN PRN PRN Reason: Hypoglycemia Stop: 10/06/25 17:22 Enoxaparin Sodium (Enoxaparin 30 Mg/0.3 Ml Syringe) 30 mg SUBCUT DAILY@10 [facility] Stop: 10/07/25 09:59 Last Admin: 10/08/24 09:37 Dose: Not Given Ergocalciferol (Ergocalciferol 1,250 Mcg (50,000 Units) Capsule) 1,250 mcg PO Tu@0900 [facility] Stop: 10/12/25 08:59 Ferrous Sulfate (Ferrous Sulfate 324 Mg Tablet.Dr) 324 mg PO DAILY [facility] Stop: 10/07/25 08:59 Last Admin: 10/08/24 08:15 Dose: 324 mg Gabapentin (Gabapentin 300 Mg Capsule) 300 mg PO BID [facility] Stop: 10/06/25 20:59 Last Admin: 10/08/24 08:15 Dose: 300 mg Glucose (Dextrose 40% Gel 15 Gm Tube) 0 gm PO PRN PRN PRN Reason: Hypoglycemia Stop: 10/06/25 17:22 Hydralazine HCl (Hydralazine 50 Mg Tablet) 100 mg PO TID [facility] Stop: 10/06/25 21:59 Last Admin: 10/08/24 08:15 Dose: 100 mg Insulin Aspart (Insulin Aspart 300 Units/3 Ml) 0 units SUBCUT TID.WM.HS [facility]; Protocol Stop: 10/06/25 21:59 Last Admin: 10/08/24 11:52 Dose: 2 units Insulin Glargine (Insulin Glargine 300 Units/3 Ml Insuln.Pen) 10 units SUBCUT BID [facility] Stop: 10/06/25 20:59 Last Admin: 10/08/24 08:15 Dose: 10 units Isosorbide Mononitrate (Isosorbide Mononitrate 24hr Er 30 Mg Tab.Er.24h) 30 mg PO QAM [facility] Stop: 10/07/25 08:59 Last Admin: 10/08/24 08:15 Dose: 30 mg Loratadine (Loratadine 10 Mg Tablet) 10 mg PO BID [facility] Stop: 10/06/25 20:59 Last Admin: 10/08/24 08:15 Dose: 10 mg Magnesium Oxide (Magnesium Oxide 400 Mg Tablet) 400 mg PO BID [facility] Stop: 10/09/24 10:29 Last Admin: 10/08/24 08:15 Dose: 400 mg Multivitamins (Multivitamin 1 Tab Tablet) 1 tab PO DAILY [facility] Stop: 10/07/25 08:59 Last Admin: 10/08/24 08:15 [...] 10 Gm Powd.Pack) 10 gm PO DAILY [facility];Protocol Stop: 10/07/25 08:59 Last Admin: 10/08/24 08:14 [...] team Documented By: Tito Martinez MD 10/08/24 134 Signed By: 10/08/24 1385 [facility]01-03-[address] [address] Discharge Summary Signed with Addenda Patient: Gage Lugo MR#: [id number] : 1950 Acct:[id number] Age/Sex: 74 / M Adm Date: 5 Loc: Room: [address] [place] [address]: Matheus Robison MD Copies to: MD Lolita Salinas, DO~ ADDENDUM1 Discharge summary-nephrology is also recommended [facility] daily for hyperkalemia and outpatient BMP and follow-up with peripheral vascular tech. Addendum Documented By: Matheus Robison MD 10/08/24 [...] improved. His potassium is down to 4.2. 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 He is also recommended low potassium diet. [...] Neut % (Auto) 49.3, Lymph % (Auto)34.9, Camp % (Auto) 12.6, Eos % (Auto) 2.7, Baso % (Auto) 0.5, Nucleat RBC Rel Count 0.1, Neut # (Auto) 3.7, Lymph # (Auto) 2.6, Camp # (Auto) 0.9 H, Eos # (Auto) [...] MD 10/08/24 1230 Signed By: 10/08/24 1235 [facility]01-02-2025 Progress note Author Matheus Robison [facility] Note Date/Time October 07, 2024 1: 17pm [facility] EN[facility] [address] [place] [address] Hospitalist Progress Note Signed Patient: Gage Lugo MR#: [id number] : 1950 Acct:[id number] Age/Sex: 74 / M Adm Date: 5 Loc: Room: [address] [place] [address] Type: ADM IN Attending Dr: Matheus Robison [...] signed by Matheus Robison MD> 10/07/24 1317 [facility] Work Phone: 1(685) 155-499901-02-2025 Progress note Author Tito Martinez [facility] Note Date/Time October 07, 2024 12 :56pm [facility] [address] [place] [address] Nephrology Progress Note Signed Patient: Gage Lugo MR#: [id number] : 1950 Acct:[id number] Age/Sex: 74 / M Adm Date: 5 Loc: Room: [address] [place] [address] Type: ADM IN Attending Dr: Matheus Robison [...] yesterday with stable blood pressure. [place] started to have nausea vomiting and [...] (Aspirin 81 Mg Tab.Chew) [facility] Stop: 10/07/25 08:59 Last Admin: 10/07/24 08:10 Dose: 81 mg Atorvastatin Calcium (Atorvastatin 20 Mg Tablet) 20 mg PO QHS [facility] Stop: 10/06/25 21:59 Last Admin: 10/06/24 21:29 Dose: 20 mg Carvedilol (Carvedilol 25 Mg Tablet) 25 mg PO BID.WITH.MEALS [facility] Stop: 10/07/25 07:59 Last Admin: 10/07/24 08:10 Dose: 25 mg Clonidine HCl (Clonidine 0.1 Mg Tablet) 0.1 mg PO Q12HR [facility] Stop: 10/07/25 08:59 Last Admin: 10/07/24 09:45 Dose: Not Given Cyanocobalamin (Cyanocobalamin 1,000 Mcg Tablet) 1,000 mcg PO QAM [facility] Stop: 10/07/25 08:59 Last Admin: 10/07/24 08:10 Dose: 1,000 mcg Cyclobenzaprine HCl (Cyclobenzaprine 10 Mg Tablet) 10 mg PO QHS PRN PRN Reason: spasms Stop: 10/06/25 21:59 Dextrose (Dextrose 50% In Water 25 Gm/50 Ml Syringe) 0 gm IV-PUSH PRN PRN PRN Reason: Hypoglycemia Stop: 10/06/25 17:22 Enoxaparin Sodium (Enoxaparin 30 Mg/0.3 Ml Syringe) 30 mg SUBCUT DAILY@10 [facility] Stop: 10/07/25 09:59 Last Admin: 10/07/24 09:45 Dose: 30 mg Ergocalciferol (Ergocalciferol 1,250 Mcg (50,000 Units) Capsule) 1,250 mcg PO Tu@0900 [facility] Stop: 10/12/25 08:59 Ferrous Sulfate (Ferrous Sulfate 324 Mg Tablet.Dr) 324 mg PO DAILY [facility] Stop: 10/07/25 08:59 Last Admin: 10/07/24 08:10 Dose: 324 mg Gabapentin (Gabapentin 300 Mg Capsule) 300 mg PO BID [facility] Stop: 10/06/25 20:59 Last Admin: 10/07/24 08:09 Dose: 300 mg Glucose (Dextrose 40% Gel 15 Gm Tube) 0 gm PO PRN PRN PRN Reason: Hypoglycemia Stop: 10/06/25 17:22 Hydralazine HCl (Hydralazine 50 Mg Tablet) 100 mg PO TID [facility] Stop: 10/06/25 21:59 Last Admin: 10/07/24 08:10 Dose: 100 mg Levofloxacin (Levaquin) 500 mg in 100 mls @ 100 mls/hr IV Q48H [facility] Insulin Aspart (Insulin Aspart 300 Units/3 Ml) 0 units SUBCUT TID.WM.HS [facility]; Protocol Stop: 10/06/25 21:59 Last Admin: 10/07/24 11:54 Dose: 1 units Insulin Glargine (Insulin Glargine 300 Units/3 Ml Insuln.Pen) 10 units SUBCUT BID [facility] Stop: 10/06/25 20:59 Last Admin: 10/07/24 08:11 Dose: 10 units Isosorbide Mononitrate (Isosorbide Mononitrate 24hr Er 30 Mg Tab.Er.24h) 30 mg PO QAM [facility] Stop: 10/07/25 08:59 Last Admin: 10/07/24 08:09 Dose: 30 mg Loratadine (Loratadine 10 Mg Tablet) 10 mg PO BID [facility] Stop: 10/06/25 20:59 Last Admin: 10/07/24 08:09 Dose: 10 mg Magnesium Oxide (Magnesium Oxide 400 Mg Tablet) 400 mg PO BID [facility] Stop: 10/09/24 10:29 Last Admin: 10/07/24 10:11 Dose: 400 mg Multivitamins (Multivitamin 1 Tab Tablet) 1 tab PO DAILY [facility] Stop: 10/07/25 08:59 Last Admin: 10/07/24 08:10 [...] 10 Gm Powd.Pack) 10 gm PO DAILY [facility]; Protocol Stop: 10/07/25 08:59 Last Admin: 10/07/24 [...] Appearance Clear Urine pH 5.0 Ur Specific [place] 1.010 Urine Protein Trace H Urine Glucose [...] signed by Tito Martinez MD> 10/07/24 1256 [facility] Work Phone: 1(574) 726-364101-02-2025 [place] [address] Hospitalist Progress Note Signed Patient: Gage Lugo MR#: [id number] : 1950 Acct:[id number] Age/Sex: 74 / M Adm Date: 5 Loc: 3T Room: [address] [place] [address] Type: ADM IN Attending Dr: Matheus Robison [...] Room Air 10/07/24 12:00 10/07/24 12:00 10/07/24 12:10/07/24 12:10/07/24 12:10/07/24 12:00 Narrative: General: Awake alert, no [...] MD 10/07/24 1312 Signed By: 10/07/24 1317 [facility]01-02-2025 [place] [address] Nephrology Progress Note Signed Patient: Gage Lugo MR#: [id number] : 1950 Acct:[id number] Age/Sex: 74 / M Adm Date: 5 Loc: Room: [address] [place] [address] Type: ADM IN Attending Dr: Matheus Robison [...] stable blood pressure. While driving [place]home patient startedto have nausea vomiting and dizziness. [...] 81 Mg Tab.Chew) 81 mg PO QAM [facility] Stop: 10/07/25 08:59 Last Admin: 10/07/24 08:10 Dose: 81 mg Atorvastatin Calcium (Atorvastatin 20 Mg Tablet) 20 mg PO QHS [facility] Stop: 10/06/25 21:59 Last Admin: 10/06/24 21:29 Dose: 20 mg Carvedilol (Carvedilol 25 Mg Tablet) 25 mg PO BID.WITH.MEALS [facility] Stop: 10/07/25 07:59 Last Admin: 10/07/24 08:10 Dose: 25 mg Clonidine HCl (Clonidine 0.1 Mg Tablet) 0.1 mg PO Q12HR [facility] Stop: 10/07/25 08:59 Last Admin: 10/07/24 09:45 Dose: Not Given Cyanocobalamin (Cyanocobalamin 1,000 Mcg Tablet) 1,000 mcg PO QAM [facility] Stop: 10/07/25 08:59 Last Admin: 10/07/24 08:10 Dose: 1,000 mcg Cyclobenzaprine HCl (Cyclobenzaprine 10 Mg Tablet) 10 mg PO QHS PRN PRN Reason: spasms Stop: 10/06/25 21:59 Dextrose (Dextrose 50% In Water 25 Gm/50 Ml Syringe) 0 gm IV-PUSH PRN PRN PRN Reason: Hypoglycemia Stop: 10/06/25 17:22 Enoxaparin Sodium (Enoxaparin 30 Mg/0.3 Ml Syringe) 30 mg SUBCUT DAILY@10 [facility] Stop: 10/07/25 09:59 Last Admin: 10/07/24 09:45 Dose: 30 mg Ergocalciferol (Ergocalciferol 1,250 Mcg (50,000 Units) Capsule) 1,250 mcg PO Tu@0900 [facility] Stop: 10/12/25 08:59 Ferrous Sulfate (Ferrous Sulfate 324 Mg Tablet.Dr) 324 mg PO DAILY [facility] Stop: 10/07/25 08:59 Last Admin: 10/07/24 08:10 Dose: 324 mg Gabapentin (Gabapentin 300 Mg Capsule) 300 mg PO BID [facility] Stop: 10/06/25 20:59 Last Admin: 10/07/24 08:09 Dose: 300 mg Glucose (Dextrose 40% Gel 15 Gm Tube) 0 gm PO PRN PRN PRN Reason: Hypoglycemia Stop: 10/06/25 17:22 Hydralazine HCl (Hydralazine 50 Mg Tablet) 100 mg PO TID [facility] Stop: 10/06/25 21:59 Last Admin: 10/07/24 08:10 Dose: 100 mg Levofloxacin (Levaquin) 500 mg in 100 mls @ 100 mls/hr IV Q48H [facility] Insulin Aspart (Insulin Aspart 300 Units/3 Ml) 0 units SUBCUT TID.WM.HS [facility]; Protocol Stop: 10/06/25 21:59 Last Admin: 10/07/24 11:54 Dose: 1 units Insulin Glargine (Insulin Glargine 300 Units/3 Ml Insuln.Pen) 10 units SUBCUT BID [facility] Stop: 10/06/25 20:59 Last Admin: 10/07/24 08:11 Dose: 10 units Isosorbide Mononitrate (Isosorbide Mononitrate 24hr Er 30 Mg Tab.Er.24h) 30 mg PO QAM [facility] Stop: 10/07/25 08:59 Last Admin: 10/07/24 08:09 Dose: 30 mg Loratadine (Loratadine 10 Mg Tablet) 10 mg PO BID [facility] Stop: 10/06/25 20:59 Last Admin: 10/07/24 08:09 Dose: 10 mg Magnesium Oxide (Magnesium Oxide 400 Mg Tablet) 400 mg PO BID [facility] Stop: 10/09/24 10:29 Last Admin: 10/07/24 10:11 Dose: 400 mg Multivitamins (Multivitamin 1 Tab Tablet) 1 tab PO DAILY [facility] Stop: 10/07/25 08:59 Last Admin: 10/07/24 08:10 [...] Reason: Flush Stop: 10/06/25 15:18 Last Admin: 01/01/25 21:34 Dose: 10 ml Sodium Zirconium Cyclosilicate (Sodium Zirconium Cyclosilicate 10 Gm Powd.Pack) 10 gm PO DAILY [facility];Protocol Stop: 10/07/25 08:59 Last Admin: 10/07/24 09:45 [...] Appearance Clear Urine pH 5.0 Ur Specific [place] 1.010 Urine Protein Trace H Urine Glucose [...] in a.m. Documented By: Tito Martinez MD 10/07/241249 Signed By: 10/07/24 1256 [facility]01-01-2025 History and physical note Author Matheus Robison [facility] Note Date/Time October 06, 2024 5: 51pm [facility] ENTER [address] [place] [address] Hospitalist H&P Signed with Addenda Patient: Gage Lugo MR#: [id number] : 1950 Acct:[id number] Age/Sex: 74 / M Adm Date: 5 Loc: Room: [address] [place] [address] Type: ADM IN Attending Dr: Matheus Robison MD Copies to: MD Lolita Salinas, DO~ ADDENDUM1 -Complicated UTI -Recent urinalysis suggestive [...] negative unless noted below or in HPI [facility] Medical History (Updated 10/06/24 @ 17:38 by [...] days #30 tabs 08/26/17 [Rx Confirmed 10/06/24] lyftcbex-ycug-kwawjui gluconate 9 mg iron/15 mL (15 mL) [...] % (Auto) 27.0 % (.) 10/06/24 15:09 Camp % (Auto) 9.9 % (.) 10/06/24 15:09 Eos % (Auto) 2.7 % (.) 10/06/24 15:09 Baso % (Auto) 0.6 % (.) 10/06/24 15:09 Nucleat RBC Rel Count 0.1 /100 WBC (0-0.5) 10/06/24 15:09 Neut # (Auto) 4.2 x10E3/uL (1.8-7.7) 10/06/24 15:09 Lymph # (Auto) 1.9 x10E3/uL (1.00-4.8) 10/06/24 15:09 Camp # (Auto) 0.7 x10E3/uL (0.0-0.8) 10/06/24 15:09 [...] pH 5.0 (5.0-9.0) 10/06/24 16:39 Ur Specific [place] 1.010 (1.001-1.030) 10/06/24 16:39 Urine Protein Trace [...] signed by Matheus Robison MD> 10/06/24 1740 [facility] Work Phone: 1(943) 673-201301-01-2025 [place] [address] Hospitalist H&P Signed with Addenda Patient: Gage Lugo MR#: [id number] : 1950 Acct:[id number] Age/Sex: 74 / M Adm Date: 5 Loc: Room: [address] [place] [address] Type: ADM IN Attending Dr: Matheus Robison MD Copies to: MD Lolita Salinas, DO~ ADDENDUM1 -Complicated UTI -Recent urinalysis suggestive [...] negative unless noted below or in HPI [facility] Medical History (Updated 10/06/24 @ 17:38 by [...] days #30 tabs 08/26/17 [Rx Confirmed 10/06/24] mbwpyuac-fwmp-haotrwx gluconate 9 mg iron/15 mL (15 mL) [...] % (Auto) 27.0 % (.) 10/06/24 15:09 Camp % (Auto) 9.9 % (.) 10/06/24 15:09 Eos % (Auto) 2.7 % (.) 10/06/24 15:09 Baso % (Auto) 0.6 % (.) 10/06/24 15:09 Nucleat RBC Rel Count 0.1 /100 WBC (0-0.5) 10/06/24 15:09 Neut # (Auto) 4.2 x10E3/uL (1.8-7.7) 10/06/24 15:09 Lymph # (Auto) 1.9 x10E3/uL (1.00-4.8) 10/06/24 15:09 Camp # (Auto) 0.7 x10E3/uL (0.0-0.8) 10/06/24 15:09 [...] pH 5.0 (5.0-9.0) 10/06/24 16:39 Ur Specific [place] 1.010 (1.001-1.030) 10/06/24 16:39 Urine Protein Trace [...] MD 10/06/24 1733 Signed By: 10/06/24 1740 [facility]01-01-2025 [id number] Nephrology Progress Note Signed Patient: Gage Lugo MR#: [id number] : 1950 Acct:[id number] Age/Sex: 74 / M Adm Date: 4 Loc: Room: [address] [place] [address] Type: ADM IN Attending Dr: Matheus Robison [...] (Aspirin 81 Mg Tab.Chew) [facility] Stop: 10/05/25 08:59 Last Admin: 10/06/24 08:28 Dose: 81 mg Atorvastatin Calcium (Atorvastatin 20 Mg Tablet) 20 mg PO QHS [facility] Stop: 10/04/25 21:59 Last Admin: 10/05/24 20:53 Dose: 20 mg Carvedilol (Carvedilol 25 Mg Tablet) 25 mg PO BID.WITH.MEALS [facility] Stop: 10/05/25 07:59 Last Admin: 10/06/24 08:28 Dose: 25 mg Ceftriaxone Sodium (Ceftriaxone 1 Gm/10 Ml Syringe) 1 gm IV-PUSH DAILY@1630 [facility] Last Admin: 10/05/24 21:14 Dose: 1 gm Clonidine HCl (Clonidine 0.2 Mg Tablet) 0.2 mg PO BID [facility] Stop: 10/05/25 11:44 Last Admin: 10/06/24 08:28 Dose: 0.2 mg Cyanocobalamin (Cyanocobalamin 1,000 Mcg Tablet) 1,000 [facility]cg [facility] Stop: 10/05/25 08:59 Last Admin: 10/06/24 08:28 [...] Mg/0.3 Ml Syringe) 30 mg SUBCUT DAILY@10 [facility] Stop: 10/05/25 09:59 Last Admin: 10/06/24 09:54 Dose: Not Given Ergocalciferol (Ergocalciferol 1,250 Mcg (50,000 Units) Capsule) 1,250 mcg PO Tu@0900 [facility] Stop: 10/05/25 08:59 Last Admin: 10/05/24 08:13 Dose: 1,250 mcg Ferrous Sulfate (Ferrous Sulfate 324 Mg Tablet.Dr) 324 mg PO DAILY.WITH.LUNCH [facility] Stop: 10/05/25 11:59 Last Admin: 10/06/24 12:31 Dose: 324 mg Furosemide (Furosemide 40 Mg Tablet) 40 mg PO BID@0800,1600 [facility] Stop: 10/05/25 15:59 Last Admin: 10/06/24 08:28 Dose: 40 mg Glucose (Dextrose 40% Gel 15 Gm Tube) 0 gm PO PRN PRN PRN Reason: Hypoglycemia Stop: 10/04/25 20:29 Hydralazine HCl (Hydralazine 50 Mg Tablet) 100 mg PO TID [facility] Stop: 10/04/25 21:59 Last Admin: 10/06/24 08:27 Dose: 100 mg Insulin Aspart (Insulin Aspart 300 Units/3 Ml) 0 units SUBCUT TID.WM.HS [facility]; Protocol Stop: 10/04/25 21:59 Last Admin: 10/06/24 12:32 Dose: 1 units Insulin Glargine (Insulin Glargine 300 Units/3 Ml Insuln.Pen) 10 units SUBCUT BID [facility] Stop: 10/05/25 08:59 Last Admin: 10/06/24 08:28 Dose: 10 units Isosorbide Mononitrate (Isosorbide Mononitrate 24hr Er 30 Mg Tab.Er.24h) 30 mg PO QAM [facility] Stop: 10/05/25 08:59 Last Admin: 10/06/24 08:28 [...] hospitalist service Documented By: Tito Martinez MD 10/06/241420 Signed By: 10/06/24 1424 [facility]01-01-2025 [place] [address] Discharge Summary Signed Patient: Gage Lugo MR#: [id number] : 1950 Acct:[id number] Age/Sex: 74 / M Adm Date: 4 Loc: Room: [address] [place] [address]: Matheus Robison MD Copies to: MD Lolita Salinas DO~ Providers Date of Discharge: 10/06/24 Discharging [...] status post stent, diabetes, hyperlipidemia presented to [facility] ED for hyperkalemia. Patient had had a lab work done at PCP and was recommended to come to [facility]'s ED for elevated potassium. Patient denied any symptoms like chest pain shortness of breath palpitation. Patient follows with peripheral vascular tech here for CKD. Lab work here shows [...] also improved significantly and is currently normotensive. [employer]ter recommended continuing clonidine and disc ontinuing spironolactone on discharge. He is also recommended to hold on Lasix until seen by PCP/peripheral vascular tech. He is also recommended to get a outpatient BMP before seeing his PCP/peripheral vascular tech. His urinalysis was suggestive of UTI with [...] Please hold Lasix until seen by your PCP/peripheral vascular tech. Discontinued spironolactone 25 mg tablet 25 mg [...] Neut % (Auto) 46.0, Lymph % (Auto)37.3, Camp % (Auto) 12.9, Eos % (Auto) 3.3, Baso % (Auto) 0.5, Nucleat RBC Rel Count 0.1, Neut # (Auto) 3.5, Lymph # (Auto) 2.8, Camp # (Auto) 1.0 H, Eos # (Auto) [...] 06:08: POC Glucose 89 Documented By: Matheus Robsion MD 10/06/24 1339 Signed By: 10/06/24 1349 [facility]12-31-2024 Progress note Author Matheus Robison [facility] Note Date/Time October 05, 2024 4:20pm [facility] ENTER [address] [place] [address] Hospitalist Progress Note Signed with Addenda Patient: Gage Lugo MR#: [id number] : 1950 Acct:[id number] Age/Sex: 74 / M Adm Date: 4 Loc: Room: [address] [place] [address] Type: ADM IN Attending Dr: Copies to: ~ ADDENDUM1 Assessment and plan: -Acute UTI Urinalysis suggestive of UTI Urine culture grew E. coli-final report pending Plan: -Start on ceftriaxone and follow-up urine culture. Addendum Documented By: Matheus Robison MD 10/05/24 1620 Addendum Signed By: <Electronically signed by Matheus Robison MD> 10/05/24 4930 Date of Service: 10/05/2024 Subjective Subjective Narrative: [...] 40 Mg Tablet PO 10/05/25 15:59 BID@0800,1600 [facility] Glucose 0 gm 10/04/24 20:30 Dextrose 40% [...] status post stent, diabetes, hyperlipidemia presented to [facility] ED for hyperkalemia. Patient had had a lab work done at PCP and was recommended to come to [facility] for elevated potassium. Patient denied any symptoms like chest pain shortness of breath palpitation. Patient follows with peripheral vascular tech here for CKD. Lab work here shows [...] Matheus Robison MD 10/05/24 1514 Signed By: <Electronically signed by Matheus Robison MD> 10/05/24 1525 [facility] Work Phone: 1(752) 322-661712-31-2024 [place] [address] Hospitalist Progress Note Signed with Addenda Patient: Gage Lugo MR#: [id number] : 1950 Acct:[id number] Age/Sex: 74 / M Adm Date: 4 Loc: Room: [address] [place] [address] Type: ADM IN Attending Dr: Copies to: [...] 40 Mg Tablet PO 10/05/25 15:59 BID@0800,1600 [facility] Glucose 0 gm 10/04/24 20:30 Dextrose 40% [...] status post stent, diabetes, hyperlipidemia presented to [facility] ED for hyperkalemia. Patient had had a lab work done at PCP and was recommended to come to [facility]'s ED for elevated potassium. Patient denied any symptoms like chest pain shortness of breath palpitation. Patient follows with peripheral vascular tech here for CKD. Lab work here shows [...] MD 10/05/24 1514 Signed By: 10/05/24 1520 [facility]12-31-2024 Consult note Author Tito Martinez [facility] Note Date/Time October 05, 2024 11:41am [facility] [address] [place] [address] Nephrology Consult Note Signed Patient: Gage Lugo MR#: [id number] : 1950 Acct:[id number] Age/Sex: 74 / M Adm Date: 4 Loc: Room: [address] [place] [address] Type: ADM IN Attending Dr: Matheus Robison [...] systems: 12 system review is negative today [facility] Medical History (Updated 10/05/24 @ 11:38 by [...] days #30 tabs 08/26/17 [Rx Confirmed 10/04/24] hrtqcxkr-hmzx-wpbyfnd gluconate 9 mg iron/15 mL (15 mL) [...] 81 Mg Tab.Chew) 81 mg PO QAM [facility] Stop: 10/05/25 08:59 Last Admin: 10/05/24 08:13 Dose: 81 mg Atorvastatin Calcium (Atorvastatin 20 Mg Tablet) 20 mg PO QHS [facility] Stop: 10/04/25 21:59 Last Admin: 10/04/24 21:44 Dose: 20 mg Carvedilol (Carvedilol 25 Mg Tablet) 25 mg PO BID.WITH.MEALS [facility] Stop: 10/05/25 07:59 Last Admin: 10/05/24 08:13 [...] Mg/0.3 Ml Syringe) 30 mg SUBCUT DAILY@10 [facility] Stop: 10/05/25 09:59 Ergocalciferol (Ergocalciferol 1,250 Mcg (50,000 Units) Capsule) 1,250 mcg PO Tu@0900 [facility] Stop: 10/05/25 08:59 Last Admin: 10/05/24 08:13 Dose: 1,250 mcg Ferrous Sulfate (Ferrous Sulfate 324 Mg Tablet.Dr) 324 mg PO DAILY.WITH.LUNCH [facility] Stop: 10/05/25 11:59 Glucose (Dextrose 40% Gel 15 Gm Tube) 0 gm PO PRN PRN PRN Reason: Hypoglycemia Stop: 10/04/25 20:29 Hydralazine HCl (Hydralazine 50 Mg Tablet) 100 mg PO TID [facility] Stop: 10/04/25 21:59 Last Admin: 10/05/24 08:13 Dose: 100 mg Insulin Aspart (Insulin Aspart 300 Units/3 Ml) 0 units SUBCUT TID.WM.HS [facility]; Protocol Stop: 10/04/25 21:59 Last Admin: 10/05/24 07:50 Dose: Not Given Insulin Glargine (Insulin Glargine 300 Units/3 Ml Insuln.Pen) 10 units SUBCUT BID [facility] Stop: 10/05/25 08:59 Last Admin: 10/05/24 08:14 Dose: 10 units Isosorbide Mononitrate (Isosorbide Mononitrate 24hr Er 30 Mg Tab.Er.24h) 30 mg PO QAM [facility] Stop: 10/05/25 08:59 Last Admin: 10/05/24 08:13 Dose: 30 mg Multivitamins (Multivitamin 1 Tab Tablet) 1 tab PO DAILY [facility] Stop: 10/05/25 08:59 Last Admin: 10/05/24 08:13 [...] Cloudy A Urine pH 5.5 Ur Specific [place] 1.011 Urine Protein 20 H Urine Glucose [...] <Electronically signed by Tito Martinez MD> 10/05/24 1143 [facility] Work Phone: 1(608) 727-765412-31-2024 [place] [address] Nephrology Consult Note Signed Patient: Gage Lugo MR#: [id number] : 1950 Acct:[id number] Age/Sex: 74 / M Adm Date: 4 Loc: Room: [address] [place] [address] Type: ADM IN Attending Dr: Matheus Robison [...] systems: 12 system review is negative today [facility] Medical History (Updated 10/05/24 @ 11:38 by [...] days #30 tabs 08/26/17 [Rx Confirmed 10/04/24] qscopdti-bjei-cqtjtou gluconate 9 mg iron/15 mL (15 mL) [...] 81 Mg Tab.Chew) 81 mg PO QAM [facility] Stop: 10/05/25 08:59 Last Admin: 10/05/24 08:13 Dose: 81 mg Atorvastatin Calcium (Atorvastatin 20 Mg Tablet) 20 mg PO QHS [facility] Stop: 10/04/25 21:59 Last Admin: 10/04/24 21:44 Dose: 20 mg Carvedilol (Carvedilol 25 Mg Tablet) 25 mg PO BID.WITH.MEALS [facility] Stop: 10/05/25 07:59 Last Admin: 10/05/24 08:13 Dose: 25 mg Cyanocobalamin (Cyanocobalamin 1,000 Mcg Tablet) 1,000 mcg PO QAM [facility] Stop: 10/05/25 08:59 Last Admin: 10/05/24 08:13 [...] Mg/0.3 Ml Syringe) 30 mg SUBCUT DAILY@10 [facility] Stop: 10/05/25 09:59 Ergocalciferol (Ergocalciferol 1,250 Mcg (50,000 Units) Capsule) 1,250 mcg PO Tu@0900 [facility] Stop: 10/05/25 08:59 Last Admin: 10/05/24 08:13 Dose: 1,250 mcg Ferrous Sulfate (Ferrous Sulfate 324 Mg Tablet.Dr) 324 mg PO DAILY.WITH.LUNCH [facility] Stop: 10/05/25 11:59 Glucose (Dextrose 40% Gel 15 Gm Tube) 0 gm PO PRN PRN PRN Reason: Hypoglycemia Stop: 10/04/25 20:29 Hydralazine HCl (Hydralazine 50 Mg Tablet) 100 mg PO TID [facility] Stop: 10/04/25 21:59 Last Admin: 10/05/24 08:13 Dose: 100 mg Insulin Aspart (Insulin Aspart 300 Units/3 Ml) 0 units SUBCUT TID.WM.[facility]; Protocol Stop: 10/04/25 21:59 Last Admin: 10/05/24 07:50 Dose: Not Given Insulin Glargine (Insulin Glargine 300 Units/3 Ml Insuln.Pen) 10 units SUBCUT BID [facility] Stop: 10/05/25 08:59 Last Admin: 10/05/24 08:14 Dose: 10 units Isosorbide Mononitrate (Isosorbide Mononitrate 24hr Er 30 Mg Tab.Er.24h) 30 mg PO QAM [facility] Stop: 10/05/25 08:59 Last Admin: 10/05/24 08:13 Dose: 30 mg Multivitamins (Multivitamin 1 Tab Tablet) 1 tab PO DAILY [facility] Stop: 10/05/25 08:59 Last Admin: 10/05/24 08:13 [...] Cloudy A Urine pH 5.5 Ur Specific [place] 1.011 Urine Protein 20 H Urine Glucose [...] MD 10/05/24 1135 Signed By: 10/05/24 1141 [facility]12-30-2024 History and physical note Author Matheus Robison [facility] Note Date/Time October 04, 2024 8:38pm [facility] EN[facility] [address] [place] [address] Hospitalist H&P Signed Patient: Gage Lugo MR#: [id number] : 1950 Acct:[id number] Age/Sex: 74 / M Adm Date: 4 Loc: Room: [address] [place] [address] Type: ADM IN Attending Dr: Matheus Robison MD Copies to: MD Lolita Salinas, DO~ HPI DATE OF EXAMINATION: 10/04/24 CHIEF COMPLAINT: Elevated potassium HISTORY OF PRESENT ILLNESS: This is a 74-year-old male with significant past medical history of hypertension, CKD stage IV, history of CAD status post stent, diabetes, hyperlipidemia presented to [facility] ED for hyperkalemia. Patient had had a lab work done at PCP and was recommended to come to [facility]'s ED for elevated potassium. Patient denied any symptoms like chest pain shortness of breath palpitation. Patient follows with peripheral vascular tech here for CKD. Lab work here shows [...] negative unless noted below or in HPI [facility] Medical History (Updated 10/04/24 @ 20:37 by [...] days #30 tabs 08/26/17 [Rx Confirmed 10/04/24] hdgvymxy-rjrw-wtioohv gluconate 9 mg iron/15 mL (15 mL) [...] 17:30 MCHC 32.1 g/dL (32.5-35.6) L 10/04/24 17: RDW 13.9 % (12.0-14.8) 10/04/24 17: Plt Count 197 x10E3/uL (150-450) 10/04/24 17: MPV 8.0 fl (6.6-10.1) 10/04/24 17: Neut % (Auto) 63.3 % (.) 10/04/24 17:30 Lymph % (Auto) 22.2 % (.) 10/04/24 17:30 Camp % (Auto) 10.1 % (.) 10/04/24 17:30 Eos % (Auto) 3.6 % (.) 10/04/24 17:30 Baso % (Auto) 0.8 % (.) 10/04/24 17:30 Nucleat RBC Rel Count 0.1 /100 WBC (0-0.5) 10/04/24 17:30 Neut # (Auto) 5.1 x10E3/uL (1.8-7.7) 10/04/24 17:30 Lymph # (Auto) 1.8 x10E3/uL (1.00-4.8) 10/04/24 17:30 Camp # (Auto) 0.8 x10E3/uL (0.0-0.8) 10/04/24 17:30 [...] pH 5.5 (5.0-9.0) 10/04/24 18:49 Ur Specific [place] 1.011 (1.001-1.030) 10/04/24 18:49 Urine Protein 20 [...] status post stent, diabetes, hyperlipidemia presented to [facility] ED for hyperkalemia. Patient had had a lab work done at [facility] and was recommended to come to [facility]'s ED for elevated potassium. Patient denied any symptoms like chest pain shortness of breath palpitation. Patient follows with peripheral vascular tech here for CKD. Lab work here shows [...] <Electronically signed by Matheus Robison MD> 10/04/242037 [facility] Work Phone: 1(102) 461-319812-30-2024 Evaluation note* Diagnosis Onset Date Resolution Status Admit Date CAD (coronary artery disease) acute October 04, 2024 6:44pm Chronic kidney disease, stag e IV (severe) acute October 04, 2 024 6:44pm HTN (hypertension) acute [facility] er 2023 6:44pm Hypertensive chronic kidney disease with stage 1 through stage 4 chronic ki acute September 6:44pm Type 2 diabetes mellitus wit h diabetic chronic kidney disease acute October 04, 2024 6:44pm Acute hyperglycemia resolved Decem minnie 2023 6:44pm Acute hyperkalemia resolved [facility] er 2023 6:44pm Hyperkalemia resolved September 6:44pm Hypertensive urgency resolved Dece mber 2023 6:44pm Diabetes deleted October 04, 2024 6:44pm Dyslipidemia deleted September 6:44pm Chronic kidney disease, stag e IV (severe) acute October 06 5:43pm Chronic renal insufficiency acute October 06, 2024 5:43pm Diabetes deleted October 06 025 5:43pm Hypertensive chronic kidney disease with [...] October 27 8:31am Dyslipidemia deleted October 8:31am Chronic kidney disease, stag e IV (severe) acute November 22 025 8:43am Chronic renal insufficiency acute November 22, 2024 8:43am Diabetes mellitus acute 2024 8:43am Gynecomastia acute November 8:43am HTN (hypertension) acute 2024 8:43am Hypokalemia acute November 8:43am [facility] Work Phone: [phone]) [phone] Evaluation note* Diagnosis Onset Date Resolution Status Admit Date CAD (coronary artery disease) acute October 04, 2024 6:44pm Chronic kidney disease, stag e IV (severe) acute October 04 024 6:44pm HTN (hypertension) acute Decemb er [...] wit h diabetic chronic kidney disease acute Radha 22nd, 2025 8:31am Chronic kidney disease, stag e III (moderate) deleted October 27 8:31am Dyslipidemia deleted October 8:31am Chronic kidney disease, stag e IV (severe) acute November 22 8:43am Chronic renal insufficiency acute November 22, 2024 8:43am Diabetes mellitus acute 2024 8:43am Gynecomastia acute November 8:43am HTN (hypertension) acute 2024 8:43am Hypokalemia acute November 8:43am Anemia of renal disease acute M 2024 12:58pm Hypertensive chronic kidney disease with stage 1 through stage 4 chronic ki acute December 20 12:58pm Secondary hyperparathyroidism acute December 20, 2024 12:58pm Type 2 diabetes mellitus wit h diabetic chronic kidney disease acute December 20, 2024 12:58pm Chronic kidney disease, stag e III (moderate) deleted December 20, 2024 12:58pm Dyslipidemia deleted December 20, 2024 12:58pm [facility] Work Phone: 1(918) 346-574812-30-2024 [place] [address] Hospitalist H&P Signed Patient: Gage Lugo MR#: [id number] : 1950 Acct:[id number] Age/Sex: 74 / M Adm Date: 4 Loc: Room: [address] [place] [address] Type: ADM IN Attending Dr: Matheus Robison MD Copies to: MD Lolita Salinas, DO~ HPI DATE OF EXAMINATION: 10/04/24 CHIEF COMPLAINT: Elevated potassium HISTORY OF PRESENT ILLNESS: This is a 74-year-old male with significant past medical history of hypertension, CKD stage IV, history of CAD status post stent, diabetes, hyperlipidemia presented to [facility] ED for hyperkalemia. Patient had had a lab work done at [facility] and was recommended to come to [facility]'s ED for elevated potassium. Patient denied any symptoms like chest pain shortness of breath palpitation. Patient follows with peripheral vascular tech here for CKD. Lab work here shows [...] negative unless noted below or in HPI [facility] Medical History (Updated 10/04/24 @ 20:37 by [...] days #30 tabs 08/26/17 [Rx Confirmed 10/04/24] ajfcpmcr-dmit-llzhuje gluconate 9 mg iron/15 mL (15 mL) [...] % (Auto) 22.2 % (.) 10/04/24 17:30 Camp % (Auto) 10.1 % (.) 10/04/24 17: Eos % (Auto) 3.6 % (.) 10/04/24 17:30 Baso % (Auto) 0.8 % (.) 10/04/24 17:30 Nucleat RBC Rel Count 0.1 /100 WBC (0-0.5) 10/04/24 17:30 Neut # (Auto) 5.1 x10E3/uL (1.8-7.7) 10/04/24 17:30 Lymph # (Auto) 1.8 x10E3/uL (1.00-4.8) 10/04/24 17:30 Camp # (Auto) 0.8 x10E3/uL (0.0-0.8) 10/04/24 17:30 [...] pH 5.5 (5.0-9.0) 10/04/24 18:49 Ur Specific [place] 1.011 (1.001-1.030) 10/04/24 18:49 Urine Protein 20 [...] status post stent, diabetes, hyperlipidemia presented to [facility] ED for hyperkalemia. Patient had had a lab work done at [facility] and was recommended to come to [facility]'s ED for elevated potassium. Patient denied any symptoms like chest pain shortness of breath palpitation. Patient follows with peripheral vascular tech here for CKD. Lab work here shows [...] Matheus Robison MD 10/04/242030 Signed By: 10/04/242037 [facility]11-25-2024 Evaluation note* Diagnosis Onset Date Resolution [...] October 04, 024 6:44pm HTN (hypertension) acute Dece er 2023 6:44pm Hypertensive chronic kidney disease [...] 2024 10:58am Acute hyperkalemia resolved 2024 10:58am [facility] Work Phone: 1(747) 895-304111-25-2024 Evaluation note* Diagnosis Onset Date Resolution Status [...] (severe) acute October 04, 2 024 6:44pm HTN (hypertension) acute Decemb er [...] hyperkalemia resolved 2024 5:43pm Hypertensive urgency resolved Paulo [email or web address] 5:43pm [...] October 27 8:31am Dyslipidemia deleted October 8:31am [facility] Work Phone: 1(742) 704-897811-25-2024 Evaluation note* Diagnosis Onset Date Resolution Status [...] hyperkalemia resolved 2024 5:43pm Hypertensive urgency resolved Paulo [email or web address] 5:43pm [...] October 27 8:31am Dyslipidemia deleted October 8:31am Diabetes mellitus acute 2024 8:43am [facility] Work Phone: 1(491) 360-746011-25-2024 Evaluation note* Diagnosis Onset Date Resolution Status [...] (severe) acute October 04, 2 024 6:44pm HTN (hypertension) acute Decemb er [...] October 27 8:31am Dyslipidemia deleted October 8:31am Chronic kidney disease, stag e IV (severe) acute November 22 8:43am Chronic renal insufficiency acute November 22, 2024 8:43am Diabetes mellitus acute 2024 8:43am Gynecomastia acute November 8:43am HTN (hypertension) acute 2024 8:43am Hypokalemia acute November 8:43am [facility] Work Phone: 1(253) 531-342510-18-2024 Evaluation note* Diagnosis Onset Date Resolution Status Admit Date HTN (hypertension) acute Octobe r 2023 10:35am Type 2 diabetes mellitus wit h diabetic chronic kidney disease acute July 23 10:35am [facility] Work Phone: 1(247) 348-504310-18-2024 Evaluation note* Diagnosis Onset Date Resolution Status [...] 6:44pm Diabetes chronic October 04, 2024 6:44pm [facility] Work Phone: 1(897) 158-493710-18-2024 Evaluation note* Diagnosis Onset Date Resolution Status [...] 06, 2024 5:43pm Hypertensive urgency acute Paulo [email or web address] 5:43pm Near syncope acute October 06, 2024 5:43pm [facility] Work Phone: 1(557) 918-932810-18-2024 Evaluation note* Diagnosis Onset Date Resolution Status [...] osed on CKD inactive October 06 5:43pm [facility] Work Phone: 1(281) 837-553810-18-2024 Evaluation note* Diagnosis Onset Date Resolution Status [...] resolved September 6:44pm Hypertensive urgency resolved Dece er 2023 6:44pm Chronic kidney disease, stag e [...] Diabetes mellitus acute October 12, 2024 10:58am [facility] Work Phone: 1(552) 125-511310-18-2024 Evaluation note* Diagnosis Onset Date Resolution Status Admit Date HTN (hypertension) acute Octobe 2023 10:35am Type 2 diabetes mellitus wit [...] October 04, 024 6:44pm HTN (hypertension) acute Dece er 2023 6:44pm Hypertensive chronic kidney disease with stage 1 through stage 4 chronic ki acute September 6:44pm Type 2 diabetes mellitus wit h diabetic chronic kidney disease acute October 04, 2024 6:44pm Acute hyperglycemia resolved Dece minnie 2023 6:44pm Acute hyperkalemia resolved Decemb er 2023 6:44pm Hyperkalemia resolved September 6:44pm Hypertensive urgency resolved Dece er 2023 6:44pm Diabetes deleted October 04, 2024 6:44pm Dyslipidemia deleted September 6:44pm Chronic kidney disease, stag e IV (severe) acute October 06 5:43pm Chronic renal insufficiency acute October 06, 2024 5:43pm Diabetes deleted October 06, 025 5:43pm Hypertensive chronic kidney disease with stage 1 through stage 4 chronic ki acute October 06, 2024 5:43pm Acute hyperkalemia resolved 2024 5:43pm Hypertensive urgency resolved Paulo elo [...] 2024 10:58am Acute hyperkalemia resolved 2024 10:58am [facility] Work Phone: 1(671) 334-726208-31-2024 History of Present illness Narrative* Annabelle Brooks RN - 06/05/2024 12:06 PM EDT Patient's daughter arrived to scrap picker patient. CM and attending notified of discharge. Patient's belongings gathered and patient and family walked down to grab outpatient pharmacy meds. Discharge paperwork given to family for home health care. * Rafat Murillo MD - 06/04/2024 7:[address] [facility] Neurology IN-PATIENT SERVICE [facility] Progress Note Date: 06/04/2024 Patient name: Gage Lugo Date of admission: 05/23/2024 6:12 PM Account: [id number] Date of : 1950 PCP: Lolita Adorno DO Room: [address] [place] [address] Code Status: Full Code Chief Complaint: Chief Complaint Patient presents with Pain Bilat shoulders, back and bilat legs Interval hx: The patient was seen and examined at bedside. Is vitally stable, alert and oriented. Alert orientedx 4. Continues to report pain BL shoulders 05/15 severity Family appealed DC. Waiting on placement [...] above 90 degrees. He recently went to [facility] where initial workup was negative except for [...] or sensory deficits. Receiving PRN dilaudid and [place]. Waiting for placement. Unable to work with [...] SEVEN performed by Edin Bridges DO at [facility] OR CERVICAL SPINE SURGERY 05/27/2024 POSTERIOR CERVICAL DECOMPRESSION FUSION CERVICAL THREE THROUGH SEVEN+EXTENSION OF POSTERIOR LUMBAR FUSION TO LUMBAR THREE LUMBAR DISC SURGERY cage placed 2022 LUMBAR FUSION N/A 05/27/2024 EXTENSION OF POSTERIOR LUMBAR FUSION TO LUMBAR THREE performed by Edin Bridges DO at [facility] OR Medications Prior to Admission: Prior [...] 162* Intake/Output Summary (Last 24 hours) at 06/04/2024 1939 Last data filed at 06/04/2024 1800 Gross [...] Diagnosis Date Noted Coronary artery disease involving [place] coronary artery of [place] heart without angina pectoris [I25.10] 05/26/2024 Priority: [...] appreciated Tylenol 650 mg po q 6 [place] 5-325 po q PRN 4 hours, 2 [...] 7:39 PM Copy sent to Lolita Iyer, I have discussed the case of Gage [...] 06/04/2024 2:41 PM EDT Physical Therapy Facility/Department: [address] [place] Physical Therapy Daily Treatment Note [...] gait speed, no LOB. Gait Deviations: Slow [place];Shuffles Distance: 25 feet More Ambulation?: No Stairs/Curb Stairs?: No Balance Posture: Good Sitting - Static: Good Sitting - Dynamic: Good;- Standing - Static: Fair;+ Standing - Dynamic: Fair Comments: standing balance assessed while using a RW. Exercise Treatment: x10 BLE in standing: hip flexion, hip abduction/adduction, calf raises, partialsquats [facility] - Mobility [facility] Basic Mobility - Inpatient How much [...] 3-5 steps with a railing?: A Lot [facility] Inpatient Mobility Raw Score : 17 [facility] Inpatient T-Scale Score : 42.13 Mobility [...] 25 Minutes Bill Sanchez PT * Rusty Amador APRN - [place] - 06/04/2024 10:45 AM EDT Neurosurgery SELVIN/Resident [...] Murillo MD - 06/03/2024 5:[address] [facility] Neurology IN-PATIENT SERVICE [facility] Progress Note Date: 06/03/2024 Patient name: Gage Lugo Date of admission: 05/23/2024 6:12 PM Account: [id number] Date of : 1950 PCP: Lolita Adorno [...] above 90 degrees. He recently went to [facility] where initial workup was negative except for [...] or sensory deficits. Receiving PRN dilaudid and [place]. Waiting for placement. Unable to work with [...] SEVEN performed by Edin Bridges DO at [facility] OR CERVICAL SPINE SURGERY 05/27/2024 POSTERIOR CERVICAL DECOMPRESSION FUSION CERVICAL THREE THROUGH SEVEN+EXTENSION OF POSTERIOR LUMBAR FUSION TO LUMBAR THREE LUMBAR DISC SURGERY cage placed 2022 LUMBAR FUSION N/A 05/27/2024 EXTENSION OF POSTERIOR LUMBAR FUSION TO LUMBAR THREE performed by Edin Bridges DO at [facility] OR Medications Prior to Admission: Prior [...] Gross per 24 hour Intake -- Output 5 ml Net -2025 ml GENERAL Appears comfortable [...] Diagnosis Date Noted Coronary artery disease involving [place] coronary artery of [place] heart without angina pectoris [I25.10] 05/26/2024 Priority: [...] appreciated Tylenol 650 mg po q 6 [place] 5-325 po q PRN 4 hours, 2 [...] 06/03/2024 5:34 PM Copy sent to Lolita Iyer, I have discussed the case of Gage [...] 06/03/2024 3:47 PM EDT Physical Therapy Facility/Department: [address] [place] Physical Therapy Progress Note Name: [...] Ambulation Assistance: Independent Transfer Assistance: Independent Active Plaster Foreman: Yes Mode of Transportation: Truck Occupation: Retired [...] improve strength and LE function OutComes Score [facility] - Mobility [facility] Basic Mobility - Inpatient How much [...] 3-5 steps with a railing?: A Lot [facility] Inpatient Mobility Raw Score : 17 [facility] Inpatient T-Scale Score : 42.13 Mobility [...] 06/03/2024 9:37 AM EDT Occupational Therapy Facility/Department: [facility] 5C [facility] Daily Treatment Note Patient [...] completed UB bathing while seated on toilet, demos adherence to cervical precautions with no shoulder [...] Individual Minutes Time In: 833 Time Out: 09 Minutes: 37 Time Code Minutes Timed Code Treatment Minutes: 30 Minutes * Rafat Murillo MD - 06/02/2024 1:[address] [facility] Neurology IN-PATIENT SERVICE [facility] Progress Note Date: 06/02/2024 Patient name: Gage Lugo Date of admission: 05/23/2024 6:12 PM Account: [id number] Date of : 1950 PCP: Lolita Adorno DO Room: [address] [place], [place] [address] Code Status: Full Code Chief Complaint: Chief [...] above 90 degrees. He recently went to [facility] where initial workup was negative except for [...] or sensory deficits. Receiving PRN dilaudid and [place]. Waiting for placement. Unable to work with [...] SEVEN performed by Edin Bridges DO at [facility] OR CERVICAL SPINE SURGERY 05/27/2024 POSTERIOR CERVICAL DECOMPRESSION FUSION CERVICAL THREE THROUGH SEVEN+EXTENSION OF POSTERIOR LUMBAR FUSION TO LUMBAR THREE LUMBAR DISC SURGERY cage placed 2022 LUMBAR FUSION N/A 05/27/2024 EXTENSION OF POSTERIOR LUMBAR FUSION TO LUMBAR THREE performed by Edin Bridges DO at [facility] OR Medications Prior to Admission: Prior [...] Take 1 tablet by mouth daily Mark eLdezma MD nitroGLYCERIN (NITROSTAT) 0.4 MG SL tablet [...] Diagnosis Date Noted Coronary artery disease involving [place] coronary artery of [place] heart without angina pectoris [I25.10] 05/26/2024 Priority: [...] appreciated Tylenol 650 mg po q 6 [place] 5-325 po q PRN 4 hours, 2 [...] 06/02/2024 1:51 PM Copy sent to Lolita Iyer, DO [...] yesterday. Awaiting disposition. Precertification is initiated for group home facility. I also discussed with the patient [...] 06/02/2024 12:01 PM EDT Physical Therapy Facility/Department: [address] [place] Physical Therapy Name: Gage Lugo : 1950 Date of Service: 06/02/2024 Discharge Recommendations: [...] agreeable to participate with therapy. pt reports 8/10 cervical pain with radiating pain down bilat LE to fingers of bilat hands. pt reports LBP @ 4/10, denies radiating pain to eitherLE. pt given [...] 3-5 steps with a railing?: A Lot [facility] Inpatient Mobility Raw Score : 17 [facility] Inpatient T-Scale Score : 42.13 Mobility [...] Time Out 1036 Minutes 24 JOHNNA MITCHELL, SALES & SERVICE ASSOCIATE * Rusty Amador, FILTERER - NOVELTY CHAIN MAKER - 06/02/2024 8:35 AM EDT Neurosurgery SELVIN/Resident [...] for SNF - Pre-Cert for [employer] for [place] Continue PT and OT Heparin for DVT prophylaxis Collar on while out of bed ok to remove while resting in bed eating and drinking Please contact neurosurgery with any changes in patients neurologic status. Rusty Amador CNP 06/02/24 8:35 AM * Fran Dorantes MD - 06/01/2024 1:[address] [facility] Neurology IN-PATIENT SERVICE [facility] Progress Note Date: 06/01/2024 Patient name: Gage Lugo Date of admission: 05/23/2024 6:12 PM Account: [id number] Date of : 1950 PCP: Lolita Adorno [...] above 90 degrees. He recently went to [facility] where initial workup was negative except for [...] or sensory deficits. Receiving PRN dilaudid and [place]. Waiting for placement. Unable to work with [...] SEVEN performed by Edin Bridges DO at [facility] OR CERVICAL SPINE SURGERY 05/27/2024 POSTERIOR CERVICAL DECOMPRESSION FUSION CERVICAL THREE THROUGH SEVEN+EXTENSION OF POSTERIOR LUMBAR FUSION TO LUMBAR THREE LUMBAR DISC SURGERY cage placed 2022 LUMBAR FUSION N/A 05/27/2024 EXTENSION OF POSTERIOR LUMBAR FUSION TO LUMBAR THREE performed by Edin Bridges DO at [facility] OR Medications Prior to Admission: Prior [...] Diagnosis Date Noted Coronary artery disease involving [place] coronary artery of [place] heart without angina pectoris [I25.10] 05/26/2024 Priority: [...] appreciated Tylenol 650 mg po q 6 [place] 5-325 po q PRN 4 hours, 2 [...] therapy, Lovenox, spirometry, medical management, therapy. Awaiting group home facility placement. Did have an extensive discussion with the patient's daughter who is very apprehensive about the patient going home due to having minimal help and living alone. States that his girlfriend is frail andnot able to help him much. I did directly discuss with the insurance case manager timeframe for discharge to group home facility and she stated that records were submitted and pre-CERT has not yet been started. Estimated duration is 3 to 4 days. Edin Bridges DO 06/01/2024 * Shaista Naik, SALES & SERVICE ASSOCIATE - 06/01/2024 10:02 AM EDT Images from [...] later if pain is controlled. * Hafsa RichardsonELISSA - 06/01/2024 9:26 AM EDT Occupational Therapy Facility/Department: [address] [place] Daily Treatment Note Patient Name: Gage uLgo : 1950 Date of Service: 06/01/2024 Discharge [...] to return to prior living arrangement with 28/04 assistance from spouse and daughter to safely [...] Occupational Therapy Plan Times Per Week: 3-5x/wk [facility] Daily Activities Inpatient [facility] Daily Activity - Inpatient How much help [...] How much help for eating meals?: None [facility] Inpatient Daily Activity Raw Score: 20 [facility] Inpatient ADL T-Scale Score : 42.03 ADL Inpatient CMS 0-100% Score: 38.32 ADL Inpatient CMS G-Code Modifier : CJ Minutes OT Individual Minutes Time In: 843 Time Out: 907 Minutes: 24 Time Code Minutes Timed Code Treatment Minutes: 24 Minutes * Radha Bryan RN - 06/01/2024 6:33 AM EDT Pt wanted to shower. Messaged about dressing, told to remove and leave open to air. * Radha Bryan RN - 06/01/2024 5:05 AM EDT Pt complaining of 8/10 pain. Refusing pain meds. Educated pt on pain management. Pt agreeable to ice. supervisor farm equipment maintenance notified. * Pinky Alvarado RD - 05/31/2024 [...] assess Fluid Accumulation: No significant fluid accumulation Radar Repairer Strength: Not Performed Nutrition Assessment: LOS. Adm foruncontrolled pain specifically in his right lower extremity, bilateral shoulders, back,and neck. Was admitted at [facility] and had mulltiple tests done. Per chart [...] Measures: Height: 165.1 cm (5' 5 ) [place] Body Weight (IBW): 136 lbs (62 kg) [...] time Pinky Alvarado MS, RDN, LDN Contact: [phone] * Rusty Locke, FILTERER - PRISON LIBRARIAN - 05/31/2024 10:24 AM EDT Neurosurgery SELVIN/Resident [...] Rainey MD - 05/31/2024 7:[address] [facility] Neurology IN-PATIENT SERVICE [facility] Progress Note Date: 05/31/2024 Patient name: Gage Lugo Date of admission: 05/23/2024 6:12 PM Account: [id number] Date of : 1950 PCP: Lolita Adorno DO Room: [facility]- Code Status: Full Code Chief Complaint: Chief [...] above 90 degrees. He recently went to [facility] where initial workup was negative except for [...] SEVEN performed by Edin Bridges DO at [facility] OR CERVICAL SPINE SURGERY 05/27/2024 POSTERIOR CERVICAL DECOMPRESSION FUSION CERVICAL THREE THROUGH SEVEN+EXTENSION OF POSTERIOR LUMBAR FUSION TO LUMBAR THREE LUMBAR DISC SURGERY cage placed 2022 LUMBAR FUSION N/A 05/27/2024 EXTENSION OF POSTERIOR LUMBAR FUSION TO LUMBAR THREE performed by Edin Bridges DO at [facility] OR Medications Prior to Admission: Prior [...] Intake/Output Summary (Last 24 hours) at 05/31/2024 0748 Last data filed at 05/31/2024 0433 Gross [...] isnarrowing of the lateral recesses. There is [id number] left and moderate right foraminal narrowing. L4-L5: [...] Diagnosis Date Noted Coronary artery disease involving [place] coronary artery of [place] heart without angina pectoris [I25.10] 05/26/2024 Priority: [...] 05/30/2024 3:19 PM EDT Physical Therapy Facility/Department: [address] [place] Physical Therapy Treatment Note Name: [...] Yes Required Braces or Orthoses Cervical: c-collar ([place]) Position Activity Restriction Spinal Precautions: No Bending, [...] Bed Mobility Comments: Pt began session in dispatch coordinator HOB elevated ~30 degrees for sit to [...] 3-5 steps with a railing?: A Lot [facility] Inpatient Mobility Raw Score : 17 [facility] Inpatient T-Scale Score : 42.13 Mobility [...] Minutes Yossi Buchanan PTA * Dorinda Hardin, FILTERER - PRISON LIBRARIAN - 05/30/2024 9:15 AM EDT Images from the original note were not included. Marija Poleyard Supervisor Progress Note Date: 05/30/2024 Patient name: Gage [...] TID insulin lispro 0-4 Units SubCUTAneous Nightly carvedilol 25 mg Oral BID isosorbide mononitrate [...] (HCC) Paraparesis (HCC) Coronary artery disease involving [place] coronary artery of [place] heart without angina pectoris Abnormal ECG Plan of Treatment: Stable no chest pain -continue imdur BB and statin , add asa when ok with surgery BP stable this am. Norvasc stopped. Continue coreg and imdur. PAD Record from outside hospital reviewed - moderate aortiilliac disease - recommend vascular consult as outpatient Follow up with his search engine marketing strategist Dr. Florian on discharge Ok for patient to be discharged per CV standpoint and for him to follow up outpatient in 2-4 weeks. [employer] [phone] * Herminio Hernandez MD - 05/30/2024 8:37 AM EDT Images from the original note were not included. [facility] Neurology IN-PATIENT SERVICE [facility] Progress Note Date: 05/30/2024 Patient name: Gage Lugo Date of admission: 05/23/2024 6:12 PM Account: [id number] Date of : 1950 PCP: Lolita Adorno [...] above 90 degrees. He recently went to [facility] where initial workup was negative except for [...] Surgical History: Procedure Laterality Date CARDIAC CATHETERIZATION 85', 87, CERVICAL FUSION with collar bone revision 1983 CERVICAL FUSION N/A 05/27/2024 POSTERIOR CERVICAL DECOMPRESSION FUSION CERVICAL THREE THROUGH SEVEN performed by Edin Bridges DO at [facility] OR CERVICAL SPINE SURGERY 05/27/2024 POSTERIOR CERVICAL DECOMPRESSION FUSION CERVICAL THREE THROUGH SEVEN+EXTENSION OF POSTERIOR LUMBAR FUSION TO LUMBAR THREE LUMBAR DISC SURGERY cage placed 2022 LUMBAR FUSION N/A 05/27/2024 EXTENSION OF POSTERIOR LUMBAR FUSION TO LUMBAR THREE performed by Edin Bridges DO at [facility] OR Medications Prior to Admission: Prior [...] isnarrowing of the lateral recesses. There is [id number] left and moderate right foraminal narrowing. L4-L5: [...] Diagnosis Date Noted Coronary artery disease involving [place] coronary artery of [place] heart without angina pectoris [I25.10] 05/26/2024 Priority: [...] to neuro stepdown for closer monitoring. Lyn Culver, DO 05/30/2024 12:59 PM * Tammi Rincon MD - 05/30/2024 8:00 AM EDT Images from the original note were not included. [facility] Internal Medicine Teaching Residency Program Inpatient Daily Progress Note Patient: Gage Lugo Date of : 1950 Acct: [id number] Room: [address] [place] [address] Admit date: 05/23/2024 Today's date: 05/30/24 Number [...] patient complains of right foot pain from [facility] which is sudden, episodic and intense. It [...] extremity Active Problems: Coronary artery disease involving [place] coronary artery of [place] heart without angina pectoris Abnormal ECG Pain [...] bare metal stent revision 2016, History of [place] Prior echo in 2020 shows EF 50-55% [...] Tammi Rincon MD PGY-1, Internal Medicine Resident [facility] [place] 05/30/2024, 8:01 AM Associated attestation - Gerard [...] Attending Physician Internal Medicine Residency Program, Nephrology [facility] 05/30/2024, 2:31 PM * Patricia Butler APRN - PRISON LIBRARIAN - 05/29/2024 5:09 PM EDT Images from the original note were not included. Resident Progress Note Date: 05/29/2024 Time: 5:10 PM Patient Name: Gage Lugo Patient : 1950 Room/Bed: [facility]/0544- Allergies: Allergies Allergen Reactions Asa [Aspirin] Anaphylaxis [...] with any changes. Patricia Butler, SWEETIE - PRISON LIBRARIAN 05/29/2024 5:10 PM * Tammi Rincon MD - 05/29/2024 10:22 AM EDT Images from the original note were not included. [facility] Internal Medicine Teaching Residency Program Inpatient Daily Progress Note Patient: Gage Lugo Date of : 1950 Acct: [id number] Room: 0544/0544-01 Admit date: 05/23/2024 Today's date: [...] patient complains of right foot pain from [facility] which is sudden, episodic and intense. It [...] extremity Active Problems: Coronary artery disease involving [place] coronary artery of [place] heart without angina pectoris Abnormal ECG Pain in right lower leg Lumbar stenosis with neurogenic claudication 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) Resolved Problems: * No resolved hospital problems. * Type 2 diabetes mellitus Serum glucose is 300 to 350 mg/dl Was taking Lantus 10 units OD and Glipizide 10 mg OD [id number] twice daily High-dose sliding scale POCT checks pre meal QID Essential hypertension Hydralazine 50 mg TID CAD s/p PTCA RCA bare metal stent revision 2016, History of IA Prior echo in 2020 shows EF 50-55% [...] Tammi Rincon MD PGY-1, Internal Medicine Resident [facility] 05/29/2024, 10:22 AM Associated attestation - Gerard Ramesh MD - 05/29/2024 6:58 PM EDT Attending Physician Statement I have discussed the care of Gage Lugo including pertinent history and exam findings, withthe resident. I have reviewed the pablo elements of all parts of the encounter with the resident. I agree with the assessment, plan and orders as documented by the resident. (GE Modifier) Gerard Ramesh MD [facility] Attending Physician, [facility] Faculty, Internal Medicine Residency Program [facility] 05/29/2024, 6:58 PM * Jessy Sotelo APRN - PRISON LIBRARIAN - 05/29/2024 8:53 AM EDT Images from the original note were not included. 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 Norvasc stopped. Continue coreg and imdur. Will give benadryl today for swelling PAD Record from outside hospital reviewed - moderate aortiilliac disease - recommend vascular consult as outpatient Follow up with his search engine marketing strategist Dr. Florian on discharge [place] Poleyard Supervisor [facility]. [phone] * Herminio Hernandez MD - 05/29/2024 8:29 AM EDT Images from the original note were not included. [facility] Neurology IN-PATIENT SERVICE [facility] Progress Note Date: 05/29/2024 Patient name: Gage Lugo Date of admission: 05/23/2024 6:12 PM Account: [id number] Date of : 1950 PCP: Lolita Adorno [...] pain occurred all of a sudden on 8/18 when he woke up and isonly present with movement or touch/pressure on the extremity. It is a sharp 10/10 pain when it does occur. In addition to that, patient is also complaining of pain in the bilateral shoulders that prevents him from raising either arm above 90 degrees. He recently went to [facility] where initial workup was negative except for [...] Surgical History: Procedure Laterality Date CARDIAC CATHETERIZATION 85', 87, CERVICAL FUSION with collar bone revision 1983 CERVICAL FUSION N/A 05/27/2024 POSTERIOR CERVICAL DECOMPRESSION FUSION CERVICAL THREE THROUGH SEVEN performed by Edin Bridges DO at [facility] OR CERVICAL SPINE SURGERY 05/27/2024 POSTERIOR CERVICAL DECOMPRESSION FUSION CERVICAL THREE THROUGH SEVEN+EXTENSION OF POSTERIOR LUMBAR FUSION TO LUMBAR THREE LUMBAR DISC SURGERY cage placed 2022 LUMBAR FUSION N/A 05/27/2024 EXTENSION OF POSTERIOR LUMBAR FUSION TO LUMBAR THREE performed by Edin Bridges DO at [facility] OR Medications Prior to Admission: Prior to Admission medications Medication Sig Start Date End Date Taking? Authorizing Provider vitamin B-12 (CYANOCOBALAMIN) 1000 MCG tablet Take 1 tablet by mouth daily Yes Provider, MD Mark insulin glargine (LANTUS) 100 UNIT/ML injection vial Inject 10 Units into the skin 2 times daily Yes Mrak Ledezma MD Multiple Vitamins-Minerals (THERAPEUTIC MULTIVITAMIN-MINERALS) tablet [...] tablets by mouth 2 times daily Yes aMrk Ledezma MD isosorbide mononitrate (IMDUR) 30 MG [...] isnarrowing of the lateral recesses. There is ulgi-ta-zqapzitr left and moderate right foraminal narrowing. L4-L5: [...] Diagnosis Date Noted Coronary artery disease involving [place] coronary artery of [place] heart without angina pectoris [I25.10] 05/26/2024 Priority: [...] to neuro stepdown for closer monitoring. Lyn Culver, 05/29/2024 12:38 PM * Radha Bryan, VALENTINA - 05/29/2024 6:32 AM EDT 0520: Pt [...] new orders at this time. * Solomon Wesley DO - 05/28/2024 8:06 PM EDT Images [...] for the past 8 hrs: Temp Temp [facility] 05/28/24 1602 98.7 F (37.1 C) Oral [...] any changes. Solomon Wesley DO, Neurosurgery Pager [phone] 05/28/2024 8:06 PM * Chris Ochoa RN - 05/28/2024 6:23 PM EDT Pt. Developed some angioedema maybe be due to BP med's. The physician came and checked pt. At bedside prescribed zyrtec.. Pt. Stated tongue still feel swollen but he is able to swallow and eat his meals. * Wendy Duenas OT - 05/28/2024 11:45 AM EDT Occupational Therapy Facility/Department: [address] [place] Occupational Therapy Initial Evaluation Patient [...] to return to prior living arrangement with 24/7 assistance from spouse and daughterto safely perform [...] Yes Required Braces or Orthoses Cervical: c-collar ([place]) Position Activity Restriction Spinal Precautions: No Bending;No [...] Ambulation Assistance: Independent Transfer Assistance: Independent Active Plaster Foreman: Yes Mode of Transportation: Truck Occupation: Retired [...] sponge, reviewed no bending to wash LEs, dwayne'stacy figure 4 tech. Patient reports purchasing LB sx kit that includes sock aide and wardrobe specialty worker, unsure if has long handle sponge. UE Dressing: Stand by assistance LE Dressing: Minimal assistance LE Dressing Skilled Clinical Factors: Patient performs in standing at baseline, reviewed no bendingto thread LEs into pants or don socks, dwayne'stacy figure 4 tech. Patient reports purchasing LB sx kit that includes sock aide and wardrobe specialty worker, reviewed tech in use for LB dressing [...] CJ Minutes OT Individual Minutes Time In: 08 Time Out: 09 Minutes: 28 Time Code Minutes Timed Code Treatment Minutes: 16 Minutes * Sole Son, PT - 05/28/2024 11:25 AM EDT Physical Therapy Facility/Department: [address] [place] Physical Therapy Initial Assessment Name: [...] Yes Required Braces or Orthoses Cervical: c-collar ([place]) Position Activity Restriction Spinal Precautions: No Bending, [...] Ambulation Assistance: Independent Transfer Assistance: Independent Active Plaster Foreman: Yes Mode of Transportation: Truck Occupation: Retired [...] 3-5 steps with a railing?: A Lot [facility] Inpatient Mobility Raw Score : 17 [facility] Inpatient T-Scale Score : 42.13 Mobility [...] Time Individual Concurrent Group Co-treatment Time In 0837 Time Out 0905 Minutes 28 Timed Code Treatment Minutes: 10 Minutes Sole Son PT * Philip Singh APRN - NOVELTY CHAIN MAKER - 05/28/2024 10:51 AM EDT Images from the original note were not included. Marija Poleyard Supervisor Progress Note Date: 05/28/2024 Patient name: Gage [...] SubCUTAneous Nightly carvedilol 25 mg Oral BID isosorbide mononitrate [...] (HCC) Paraparesis (HCC) Coronary artery disease involving [place] coronary artery of [place] heart without angina pectoris Abnormal ECG Plan of Treatment: Stable no chest pain -continue imdur BB and statin , add asa when ok with surgery blood pressure elevated heplock iv saline - will add norvasc PAD ???Record from outside hospital reviewed - moderate aortiilliac disease - recommend vascular consult as outpatient Follow up with his search engine marketing strategist Dr. Florian on discharge [place] Poleyard Supervisor [facility]. [phone] * Tammi Rincon MD - 05/28/2024 8:25 AM EDT Images from the original note were not included. [facility] Internal Medicine Teaching Residency Program Inpatient Daily Progress Note Patient: Gage Lugo Date of : 1950 Acct: [id number] Room: [facility]0544- Admit date: 05/23/2024 Today's date: 05/28/24 Number [...] patient complains of right foot pain from [facility] which is sudden, episodic and intense. It [...] extremity Active Problems: Coronary artery disease involving [place] coronary artery of [place] heart without angina pectoris Abnormal ECG Pain [...] bare metal stent revision 2016, History of IA Prior echo in 2020 shows EF 50-55% [...] Tammi Rincon MD PGY-1, Internal Medicine Resident [facility] 05/28/2024, 8:25 AM Associated attestation - Gerard [...] Attending Physician Internal Medicine Residency Program, Nephrology [facility] 05/28/2024, 1:16 PM * Herminio Hernandez MD - 05/28/2024 7:46 AM EDT Images from the original note were not included. [facility] Neurology IN-PATIENT SERVICE [facility] Progress Note Date: 05/28/2024 Patient name: Gage Lugo Date of admission: 05/23/2024 6:12 PM Account: [id number] Date of : 1950 PCP: Lolita Adorno [...] above 90 degrees. He recently went to [facility] where initial workup was negative except for [...] Surgical History: Procedure Laterality Date CARDIAC CATHETERIZATION 85', 87, CERVICAL FUSION with collar bone revision [...] isnarrowing of the lateral recesses. There is potm-jd-etmdiiqy left and moderate right foraminal narrowing. L4-L5: [...] Diagnosis Date Noted Coronary artery disease involving [place] coronary artery of [place] heart without angina pectoris [I25.10] 05/26/2024 Priority: [...] DO 05/28/2024 12:51 PM * Juan David Sigala, VALENTINA - 05/27/2024 7:56 PM EDT Vomited with [...] working. Outputis approximately 25 mL of blood. INC drain to the lumbar spine also appears [...] from the original note were not included. [facility] Internal Medicine Teaching Residency Program Inpatient Daily Progress Note Patient: Gage Lugo Date of : 1950 Acct: [id number] Room: [facility] RM/NONE Admit date: 05/23/2024 Today's date: 05/27/24 [...] patient complains of right foot pain from [facility] which is sudden, episodic and intense. It [...] extremity Active Problems: Coronary artery disease involving [place] coronary artery of [place] heart without angina pectoris Abnormal ECG Pain [...] bare metal stent revision 2016, History of IA Prior echo in 2020 shows EF 50-55% [...] Tammi Rincon MD PGY-1, Internal Medicine Resident [facility], [place] 05/27/2024, 3:30 PM * Rafat Murillo MD - 05/26/2024 8:[address] [facility] Neurology IN-PATIENT SERVICE [facility] Progress Note Date: 05/26/2024 Patient name: Gage Lugo Date of admission: 05/23/2024 6:12 PM Account: [id number] Date of : 1950 PCP: Lolita Adorno DO Room: [address] [place], [place] [address] Code Status: Full Code Chief Complaint: Chief [...] above 90 degrees. He recently went to [facility] where initial workup was negative except for [...] ms QTc Calculation (Bazett) 455 ms P [place] 37 degrees R [place] 27 degrees T [place] -37 degrees POC Glucose Fingerstick Collection Time: [...] isnarrowing of the lateral recesses. There is dnvq-bc-sktghjcu left and moderate right foraminal narrowing. L4-L5: [...] care not provided in a hospital setting. Karan Melyssa, OMS IV 05/26/2024 8:46 AM Associated attestation - [...] 4:37 PM * Rusty Amador APRN - JEROME - 05/26/2024 7:49 AM EDT Neurosurgery SELVIN/Resident [...] extremity pain. Edin Bridges DO Neurosurgery O: [phone] C: [phone] * Tammi Rincon MD - 05/26/2024 7:37 AM EDT Images from the original note were not included. [facility] Internal Medicine Teaching Residency Program Inpatient Daily Progress Note Patient: Gage Lugo Date of : 1950 Acct: [id number] Room: 0544/0544-01 Admit date: 05/23/2024 Today's date: [...] patient complains of right foot pain from [facility] which is sudden, episodic and intense. It [...] WC insulin lispro 0-4 Units SubCUTAneous Nightly hydrALAZINE [...] bare metal stent revision 2016, History of IA Prior echo in 2020 shows EF 50-55% [...] Tammi Rincon MD PGY-1, Internal Medicine Resident [facility] 05/26/2024, 7:37 AM Associated attestation - Gerard [...] Attending Physician Internal Medicine Residency Program, Nephrology [facility] 05/26/2024, 1:29 PM * Low Gomez MD - 05/25/2024 9:[address] [facility] Neurology IN-PATIENT SERVICE [facility] Progress Note Date: 05/25/2024 Patient name: Gaeg Lugo Date of admission: 05/23/2024 6:12 PM Account: [id number] Date of : 1950 PCP: Lolita Adorno [...] above 90 degrees. He recently went to [facility] where initialworkup was negative except for elevated [...] 3:12 PM Result Value Ref Range Right DIRECTOR OF COMMUNITY SERVICES prox PSV 134.0 cm/s Right Pop A dist PSV 106.0 cm/s Right Pop A prox PSV 105.0 cm/s Right SHAYLA mid PSV 46.2 cm/s Right SALES & SERVICE ASSOCIATE mid PSV 90.1 cm/s Right peronal mid PSV 71.9 cm/s Right SFA mid PSV 107.0 cm/s Right SFA prox PSV 115.0 cm/s Right DIRECTOR OF COMMUNITY SERVICES prox PSV 117.0 cm/s Body Surface Area 1.82 m2 Right SFA prox dany ratio 0.9 Right SFA mid dany ratio 0.9 Right EIA dist PSV 68.0 cm/s Right DIRECTOR OF COMMUNITY SERVICES dany ratio 2.0 POC Glucose Fingerstick Collection [...] isnarrowing of the lateral recesses. There is qggj-ye-ygwwavih left and moderate right foraminal narrowing. L4-L5: [...] negative. Discussed with family at bedside. Lyn Culver, 05/25/2024 1:36 PM * Elgin Brown [facility] - 05/24/2024 2:13 PM EDT PHARMACY NOTE: [...] any concerns. Thank you. * Ligia Castaneda RPH - 05/24/2024 11:23 AM EDT Images from [...] 11:23 AM documented in this encounterBON ELVI JO[facility] [id number] Hospital Discharge instructions* Discharge Instructions* Johnna Carroll APRN - APRIL - 06/03/2024 8:17 AM EDT Images from the original note were not included. Posterior Cervical Surgery Discharge Instructions Thank you for choosing [facility] for your surgical needs. The following instructions will help to ensure your comfort and that you are wellprepared after your surgery. Post-Operative Visit: The office is located at: [facility] [address], [address], [place] [address] Please also call your primary care physician [...] taking short, frequent walks in the beginning. [place], more frequent walks throughout the day are [...] surgery. YOU SHOULD CALL THE OFFICE AT [phone] IF YOU HAVE ANY OF THE FOLLOWING: [...] PCP: Lolita Adorno DO Discharging Nurse: Loyda Discharging Hospital Unit/Room#: 0544/0544-01 Discharging Unit Emergency Contact: Extended Emergency Contact Information Primary Emergency Contact: DoanCatie Mobile Relation: Girlfriend Preferred language: Citizen Of [place] Secondary Emergency Contact: Elena Urbano Mobile Relation: Child Preferred language: Citizen Of [place] Past Surgical History: Past Surgical History: Procedure Laterality Date CARDIAC CATHETERIZATION ', 87, CERVICAL FUSION with collar bone revision 1983 CERVICAL FUSION N/A 05/27/2024 POSTERIOR CERVICAL DECOMPRESSION FUSION CERVICAL THREE THROUGH SEVEN performed by Edin Bridges DO at [facility] OR CERVICAL SPINE SURGERY 05/27/2024 POSTERIOR CERVICAL DECOMPRESSION FUSION CERVICAL THREE THROUGH SEVEN+EXTENSION OF POSTERIOR LUMBAR FUSION TO LUMBAR THREE LUMBAR DISC SURGERY cage placed 2022 LUMBAR FUSION N/A 05/27/2024 EXTENSION OF POSTERIOR LUMBAR FUSION TO LUMBAR THREE performed by Edin Bridges DO at [facility] OR Immunization History: Immunization History Administered [...] M48.062 Stenosis of cervical spine with myelopathy (HCC) M48.02, G99.2 Paraparesis ([facility]) G82.20 Coronary artery disease involving [place] coronary artery of [place] heart without angina pectoris I25.10 Abnormal ECG [...] Assisted Dressing Assisted Toileting Assisted Feeding Independent Cold Roll Operator Independent Med Delivery whole Wound Care Documentation and Therapy: Incision 05/27/24 Neck Posterior (Active) Dressing Status Clean;Dry;Intact 06/03/24 08 Incision Cleansed Not Cleansed 06/03/24 08 Dressing/Treatment Open to air 06/03/24 0800 Drainage Amount None (dry) 06/03/24 08 Drainage Description Other (Comment) 06/03/24 08 Odor None 06/03/24 08 Number of days: 6 Incision Neck Posterior (Active) Dressing Status Clean;Dry;Intact 06/03/24 08 Incision Cleansed Not Cleansed 06/03/24 08 Dressing/Treatment Open to air 06/03/24 0800 Number of days: Incision 05/27/24 Back Lower;Medial (Active) Dressing Status Clean;Dry;Intact 06/03/24 0800 Incision Cleansed Not Cleansed 06/03/24 08 Dressing/Treatment Open to air 06/03/24 0800 Odor None 06/03/24 0800 Number of days: 6 Elimination: Continence: Bowel: [...] NOT a DME order): walker Other Treatments: group home eval and treat Patient's personal belongings (please select all that are sent with patient): Personal bag RN SIGNATURE: CASE MANAGEMENT/SOCIAL WORK SECTION Inpatient Status Date: 05-23-2024 Readmission Risk Assessment Score: Readmission Risk Risk of Unplanned Readmission: 22 Discharging to Facility/ Agency Name: [address] Address: Phone: Fax: Dialysis Facility (if applicable) Name: Address: Dialysis Schedule: Phone: Fax: Acid Operator/Switchboard Clerk signature: PHYSICIAN SECTION Prognosis: {Prognosis:3323830394} Condition at Discharge: { Patient Condition:826188565} Rehab Potential (if transferring to Rehab): {Prognosis:9744864987} Recommended Labs or Other Treatments After Discharge: PT/OT eval and treat, group home eval and treat Physician Certification: I certify the above information and transfer of Gage Lugo is necessary for the continuing treatment of the diagnosis listed and that he requires Home Care for greater 30 days. Update Admission H&P: {CHP DME Changes in HandP:256641478} PHYSICIAN SIGNATURE: documented in this encounterBON [facility]01-[facility] Evaluation note* Encounter Date Diagnosis Assessment Notes [...] and no personal patient information was compromised. [employer] (mytaxi) Other 01-11-2024 History of Present illness Narrative* [...] tablet, Rfl: 3 Assessment/Plan 1. 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of [place] coronary artery of [place] heart without angina pectoris Follow Up In [...] (Apresoline) 50 mg tablet 3. History of IA (myocardial infarction) isosorbide mononitrate ER (Imdur) 30 [...] in adult 10. Atherosclerotic heart disease of [place] coronary artery without angina pectoris atorvastatin (Lipitor) 20 mg tablet Scribe Attestation By signing my name below, Magali Snyder LPN , Sidra attest that this documentation has been prepared under the direction and in the presence of Gabriela Florian MD. documented in this [facility] Work Phone: 1(371) 559-228301-11-2024 Instructions* Patient Instructions* Bryanna Avendano LPN - [...] time of your visit. documented in [facility]Sub[facility] Work Phone: 1(207) 673-530712-21-2023 Evaluation note* Encounter Date Diagnosis Assessment Notes Treatment Notes Treatment Clinical Notes Sep, History of lumbar fusion (ICD-10 - Z98.1) Sep, Degenerative lumbar disc (ICD-10 - M51.36) Reviewed xray from 05/06/23 good bony alignment and harware placement. Discusion to continue with home exercise program. Follow up in 1 year with xray [employer] (mytaxi) Other 12-19-2023 Evaluation note* Encounter Date Diagnosis [...] him to continu until he sees GI. [employer] (mytaxi) Other 12-14-2023 Evaluation note* Encounter Date Diagnosis [...] in the office today and providing supervision. [employer] ([employer]xi) Other 12-07-2023 Progress note Author Nette Holden [facility] September 11, 2023 11:30am Note Date/Time September 11, 2023 1 1:23am [facility] [address] [place] [address] Nephrology Progress Note Signed Patient: Gage Lugo MR#: [id number] : 1950 Acct:[id number] Age/Sex: 73 / M Adm Date: 3 Loc: Room: [address] [place] [address] Type: ADM IN Attending Dr: Barbie Osborn [...] Skin: No rashes , warm to touch AUTOMOTIVE MACHINIST APPRENTICE: Awake,Alert, following simple command Musculoskeletal: No joint [...] 81 Mg Tab.Chew) 81 mg PO QAM [facility] Stop: 09/08/24 08:59 Last Admin: 09/11/23 08:34 Dose: 81 mg Atorvastatin Calcium (Atorvastatin 20 Mg Tablet) 20 mg PO QHS [facility] Stop: 09/07/24 21:59 Last Admin: 09/10/23 21:16 Dose: 20 mg Carvedilol (Carvedilol 25 Mg Tablet) 25 mg PO BID.WITH.MEALS [facility] Stop: 09/07/24 16:59 Last Admin: 09/11/23 08:34 Dose: 25 mg Cyanocobalamin (Cyanocobalamin 1,000 Mcg Tablet) 1,000 mcg PO QAM [facility] Stop: 09/08/24 08:59 Last Admin: 09/11/23 08:33 Dose: 1,000 mcg Dextrose (Dextrose 50% In Water 25 Gm/50 Ml Syringe) 0 gm IV-PUSH PRN PRN PRN Reason: Hypoglycemia Stop: 09/07/24 13:52 Enoxaparin Sodium (Enoxaparin 30 Mg/0.3 Ml Syringe) 30 mg SUBCUT DAILY@1000 [facility] Stop: 09/08/24 09:59 Last Admin: 09/11/23 11:04 Dose: 30 mg Ferrous Sulfate (Ferrous Sulfate 324 Mg Tablet.Dr) 324 [facility] Stop: 09/08/24 08:59 Last Admin: 09/11/23 08:33 Dose: 324 mg Glucose (Dextrose 40% Gel 15 Gm Tube) 0 gm PO PRN PRN PRN Reason: Hypoglycemia Stop: 09/07/24 13:52 Hydralazine HCl (Hydralazine 50 Mg Tablet) 50 mg PO BID [facility] Stop: 09/07/24 15:14 Last Admin: 09/11/23 08:34 Dose: 50 mg Insulin Aspart (Insulin Aspart 300 Units/3 Ml Insuln.Pen) 0 units SUBCUT TID.[facility]; Protocol Stop: 09/07/24 16:59 Last Admin: 09/11/23 08:31 Dose: Not Given Insulin Glargine (Insulin Glargine 300 Units/3 Ml Insuln.Pen) 8 units SUBCUT DAILY [facility] Stop: 09/08/24 08:59 Last Admin: 09/11/23 08:34 [...] signed by Nette Holden MD> 09/11/23 1130 [facility] Work Phone: 1(123) 655-969012-07-2023 Progress note Author Joao Coley [facility] September 11, 2023 8:54am Note Date/Time September 11, 2023 8 :55am [facility] [address] [place] [address] Gastroenterology PN Signed Patient: Gage Lugo MR#: [id number] : 1950 Acct:[id number] Age/Sex: 73 / M Adm Date: 3 Loc: Room: [address] [place] [address] Type: ADM IN Attending Dr: Barbie Osborn [...] Insuln.Pen SUBCUT 09/07/24 16:59 Not Given TID.WM.HS [facility] Protocol Insulin Glargine 8 units 09/09/23 09:00 [...] Administration Sodium Chloride 0 ml 09/08/23 06:24 12/04/23 23:36 Sodium Chloride 0.9 % 10 Ml [...] Other chronic pancreatitis Status: Acute Documented By: oJao Coley MD 09/11/23 0853 Signed By: <Electronically signed by MD Joao Coley> 09/11/23 0854 [facility] Work Phone: 1(291) 387-689512-06-2023 Progress note Author Nette Holden [facility] September 10, 2023 12:09pm Note Date/Time September 10, 2023 1 2:09pm [facility] [address] [place] [address] Nephrology Progress Note Signed Patient: Gage Lugo MR#: [id number] : 1950 Acct:[id number] Age/Sex: 73 / M Adm Date: 3 Loc: Room: 2A1729-2 Type: ADM IN Attending Dr: Barbie Osborn [...] Skin: No rashes , warm to touch AUTOMOTIVE MACHINIST APPRENTICE: Awake,Alert, following simple command Musculoskeletal: No joint [...] 81 Mg Tab.Chew) 81 mg PO QAM [facility] [place] Stop: 09/08/24 08:59 Last Admin: 09/10/23 08:43 Dose: 81 mg Atorvastatin Calcium (Atorvastatin 20 Mg Tablet) 20 mg PO QHS [facility] [place] Stop: 09/07/24 21:59 Last Admin: 09/09/23 21:18 Dose: 20 mg Carvedilol (Carvedilol 25 Mg Tablet) 25 mg PO BID.WITH.MEALS [facility] [place] Stop: 09/07/24 16:59 Last Admin: 09/10/23 08:43 Dose: 25 mg Cyanocobalamin (Cyanocobalamin 1,000 Mcg Tablet) 1,000 mcg PO QAM [facility] [place] Stop: 09/08/24 08:59 Last Admin: 09/10/23 08:43 Dose: 1,000 mcg Dextrose (Dextrose 50% In Water 25 Gm/50 Ml Syringe) 0 gm IV-PUSH PRN PRN PRN Reason: Hypoglycemia Stop: 09/07/24 13:52 Enoxaparin Sodium (Enoxaparin 30 Mg/0.3 Ml Syringe) 30 mg SUBCUT DAILY@1000 [facility] [place] Stop: 09/08/24 09:59 Last Admin: 09/10/23 11:30 Dose: 30 mg Ferrous Sulfate (Ferrous Sulfate 324 Mg Tablet.Dr) 324 mg PO QAM [facility] [place] Stop: 09/08/24 08:59 Last Admin: 09/10/23 08:43 Dose: 324 mg Glucose (Dextrose 40% Gel 15 Gm Tube) 0 gm PO PRN PRN PRN Reason: Hypoglycemia Stop: 09/07/24 13:52 Hydralazine HCl (Hydralazine 50 Mg Tablet) 50 mg PO BID [facility] [place] Stop: 09/07/24 15:14 Last Admin: 09/10/23 08:43 Dose: 50 mg Insulin Aspart (Insulin Aspart 300 Units/3 Ml Insuln.Pen) 0 units SUBCUT TID.WM.HS [facility] [place]; Protocol Stop: 09/07/24 16:59 Last Admin: 09/10/23 11:27 Dose: 3 units Insulin Glargine (Insulin Glargine 300 Units/3 Ml Insuln.Pen) 8 units SUBCUT DAILY [facility] [place] Stop: 09/08/24 08:59 Last Admin: 09/10/23 08:43 [...] function daily. Documented By: Nette Holden MD 09/10/236 Signed By: <Electronically signed by Nette Holden MD> 09/10/23 120 [facility] Work Phone: 1([phone] 228-274112-06-2023 Progress note Author Barbie Osborn [facility] September 10, 2023 10:13am Note Date/Time September 10, 2023 1 0:13am [facility] [address] [place] [address] Hospitalist Progress Note Signed Patient: Gage Lugo MR#: [id number] : 1950 Acct:[id number] Age/Sex: 73 / M Adm Date: 3 Loc: Room: [address] [place] [address] Type: ADM IN Attending Dr: Barbie Osborn [...] Tablet.Dr PO 09/08/24 08:59 324 mg QAM [facility] [place] Administration Glucose 0 gm 09/08/23 13:53 Dextrose 40% Gel 15 Gm Tube PO 09/07/24 13:52 PRN PRN Hypoglycemia Hydralazine HCl 50 mg 09/08/23 15:15 09/10/23 08:43 Hydralazine 50 Mg Tablet PO 09/07/24 15:14 50 mg BID [facility] Administration Insulin Aspart 0 units 09/08/23 17:00 09/10/23 08:43 Insulin Aspart 300 Units/3 Ml Insuln.Pen SUBCUT 09/07/24 16:59 2 units TID.WM.HS [facility] [place] Administration Protocol Insulin Glargine 8 units 09/09/23 [...] signed by Barbie Osborn MD> 09/10/23 1013 [facility] Work Phone: [phone] 933-536312-05-2023 Progress note Author Barbie Osborn [facility] September 09, 2023 4:54pm Note Date/Time September 09, 2023 4 :54pm [facility] [address] [place] [address] Hospitalist Progress Note Signed Patient: Gage Lugo MR#: [id number] : 1950 Acct:[id number] Age/Sex: 73 / M Adm Date: 3 Loc: Room: [address] [place] [address] Type: ADM IN Attending Dr: Barbie Osborn [...] Tab.Chew PO 09/08/24 08:59 Not Given QAM [facility] Atorvastatin Calcium 20 mg 09/08/23 22:00 09/08/23 21:58 Atorvastatin 20 Mg Tablet PO 09/07/24 21:59 20 mg QHS [facility] Administration Carvedilol 25 mg 09/08/23 17:00 09/09/23 07:57 Carvedilol 25 Mg Tablet PO 09/07/24 16:59 25 mg BID.WITH.MEALS [facility] [place] Administration Cyanocobalamin 1,000 mcg 09/09/23 09:00 09/09/23 08:00 Cyanocobalamin 1,000 Mcg Tablet PO 09/08/24 08:59 Not Given QAM [facility] [place] Dextrose 0 gm 09/08/23 13:53 Dextrose 50% In Water 25 Gm/50 Ml Syringe IV-PUSH 09/07/24 13:52 PRN PRN Hypoglycemia Enoxaparin Sodium 40 mg 09/09/23 10:00 09/09/23 09:21 Enoxaparin 40 Mg/0.4 Ml Syringe SUBCUT 09/08/24 09:59 Not Given DAILY@1000 [facility] [place] Ferrous Sulfate 324 mg 09/09/23 09:00 09/09/23 08:00 Ferrous Sulfate 324 Mg Tablet. PO 09/08/24 08:59 Not Given QAM [facility] [place] Glucose 0 gm 09/08/23 13:53 Dextrose 40% Gel 15 Gm Tube PO 09/07/24 13:52 PRN PRN Hypoglycemia Hydralazine HCl 50 mg 09/08/23 15:15 09/09/23 08:00 Hydralazine 50 Mg Tablet PO 09/07/24 15:14 Not Given BID [facility] [place] Clevidipine 50 mg in 100 mls @ 2 mls/hr 09/08/23 12:00 09/09/23 11:15 Cleviprex IV 09/07/24 11:59 Not Given .Q24H [facility] [place] Protocol 1 MG/HR Insulin Aspart 0 units [...] Syringe IV-PUSH 09/08/24 13:59 Not Given QSHIFT [facility] [place] A&P - Hospitalist Assessment/Plan (1) Hypertensive emergency: [...] prophylaxis. Documented By: Barbie Osborn MD 09/09/23 1645 Signed By: <Electronically signed by Barbie Osborn MD> 09/09/23 1836 [facility] Work Phone: [phone] 536-676912-05-2023 Progress note Author Gabriela Florian [facility] September 09, 2023 4:22pm Note Date/Time September 09, 2023 4 :21pm [facility] [address] [place] [address] Cardiology Progress Note Signed Patient: Gage Lugo MR#: [id number] : 1950 Acct:[id number] Age/Sex: 73 / M Adm Date: 3 Loc: Room: [id number] Type: ADM IN Attending Dr: Barbie Osborn [...] MPV Neut % (Auto) Lymph % (Auto) Camp % (Auto) Eos % (Auto) Baso % (Auto) Nucleat RBC Rel Count Neut # (Auto) Lymph # (Auto) [place] # (Auto) Eos # (Auto) Baso # [...] % (Auto) 60.8 Lymph % (Auto) 23.8 Camp % (Auto) 12.2 Eos % (Auto) 2.4 Baso % (Auto) 0.8 Nucleat RBC Rel Count 0.0 Neut # (Auto) 5.7 Lymph # (Auto) 2.3 Camp # (Auto) 1.1 H Eos # (Auto) [...] MPV Neut % (Auto) Lymph % (Auto) Camp % (Auto) Eos % (Auto) Baso % (Auto) Nucleat RBC Rel Count Neut # (Auto) Lymph # (Auto) Camp # (Auto) Eos # (Auto) Baso # [...] Status: Acute Documented By: Gabriela Florian MD, [facility] 3 1619 Signed By: <Electronically signed by MD AYAAN Florian> 09/09/23 0680 [facility] Work Phone: [phone] 879-290812-05-2023 Consult note Author Nette Holden [facility] September 09, 2023 1:41pm Note Date/Time September 09, 2023 1 :25pm [facility] [address] [place] [address] Nephrology Consult Note Signed Patient: Gage Lugo MR#: [id number] : 1950 Acct:[id number] Age/Sex: 73 / M Adm Date: 3 Loc: Room: [address] [place] [address] Type: ADM IN Attending Dr: Barbie Osborn [...] mg PO BID 08/08/20 [History Confirmed 09/08/23] cejvuopu-hzwi-joaafuy gluconate 9 mg iron/15 mL (15 mL) [...] 81 Mg Tab.Chew) 81 mg PO QAM [facility] [place] Stop: 09/08/24 08:59 Last Admin: 09/09/23 08:00 Dose: Not Given Atorvastatin Calcium (Atorvastatin 20 Mg Tablet) 20 mg PO QHS [facility] [place] Stop: 09/07/24 21:59 Last Admin: 09/08/23 21:58 Dose: 20 mg Carvedilol (Carvedilol 25 Mg Tablet) 25 mg PO BID.WITH.MEALS [facility] [place] Stop: 09/07/24 16:59 Last Admin: 09/09/23 07:57 Dose: 25 mg Cyanocobalamin (Cyanocobalamin 1,000 Mcg Tablet) 1,000 mcg PO QAM [facility] [place] Stop: 09/08/24 08:59 Last Admin: 09/09/23 08:00 Dose: Not Given Dextrose (Dextrose 50% In Water 25 Gm/50 Ml Syringe) 0 gm IV-PUSH PRN PRN PRN Reason: Hypoglycemia Stop: 09/07/24 13:52 Enoxaparin Sodium (Enoxaparin 40 Mg/0.4 Ml Syringe) 40 mg SUBCUT DAILY@1000 [facility] [place] Stop: 09/08/24 09:59 Last Admin: 09/09/23 09:21 Dose: Not Given Ferrous Sulfate (Ferrous Sulfate 324 Mg Tablet.Dr) 324 mg PO QAM [facility] [place] Stop: 09/08/24 08:59 Last Admin: 09/09/23 08:00 Dose: Not Given Glucose (Dextrose 40% Gel 15 Gm Tube) 0 gm PO PRN PRN PRN Reason: Hypoglycemia Stop: 09/07/24 13:52 Hydralazine HCl (Hydralazine 50 Mg Tablet) 50 mg PO BID [facility] [place] Stop: 09/07/24 15:14 Last Admin: 09/09/23 08:00 Dose: Not Given Clevidipine (Cleviprex) 50 mg in 100 mls @ 2 mls/hr IV .Q24H [facility] [place]; Protocol Stop: 09/07/24 11:59 Last Admin: 09/09/23 11:15 Dose: Not Given Insulin Aspart (Insulin Aspart 300 Units/3 Ml Insuln.Pen) 0 units SUBCUT TID.WM.HS [facility] [place]; Protocol Stop: 09/07/24 16:59 Last Admin: 09/09/23 12:44 Dose: 2 units Insulin Glargine (Insulin Glargine 300 Units/3 Ml Insuln.Pen) 8 units SUBCUT DAILY [facility] [place] Stop: 09/08/24 08:59 Last Admin: 09/09/23 08:00 Dose: Not Given Isosorbide Mononitrate (Isosorbide Mononitrate 24hr Er 30 Mg Tab.Er.24h) [facility] Stop: 09/08/24 08:59 Last Admin: 09/09/23 08:19 Dose: Not Given Morphine Sulfate (Morphine Sulfate 2 Mg/Ml Vial) 2 mg IV-PUSH Q3H PRN PRN Reason: Severe Pain Last Admin: 09/08/23 23:35 Dose: 2 mg Nitroglycerin (Nitroglycerin 0.4 Mg Tab.Subl) 0.4 mg SUBLINGUAL Q5M PRN PRN Reason: Chest Pain Stop: 09/07/24 15:10 Pantoprazole Sodium (Pantoprazole 40 Mg Vial) 40 mg IV-PUSH BID [facility] [place] Stop: 09/07/24 13:59 Last Admin: 09/09/23 08:02 [...] Skin: No rashes , warm to touch [employer]ICE: Awake,Alert, following simple command Musculoskeletal: No joint [...] <Electronically signed by Nette Holden MD> 09/09/23 134 [facility] Work Phone: [phone] 231-739312-05-2023 Consult note Author Joao Coley [facility] September 09, 2023 12:03pm Note Date/Time September 08, 2023 4 :16pm [facility] [address] [place] [address] Gastroenterology Consult Note Signed Patient: Gage Lugo MR#: [id number] : 1950 Acct:[id number] Age/Sex: 73 / M Adm Date: 3 Loc: Room: [address] [place] [address] Type: ADM IN Attending Dr: Barbie Osborn [...] negative unless noted below or in HPI [facility] Medical History Chronic kidney disease, stage [...] mg PO BID 08/08/20 [History Confirmed 09/08/23] sqkxzwvq-qskg-itwllbu gluconate 9 mg iron/15 mL (15 mL) [...] % (Auto) 63.3 Lymph % (Auto) 21.4 Camp % (Auto) 10.2 Eos % (Auto) 4.4 Baso % (Auto) 0.7 Nucleat RBC Rel Count 0.1 Neut # (Auto) 5.5 Lymph # (Auto) 1.9 Camp # (Auto) 0.9 H Eos # (Auto) [...] MPV Neut % (Auto) Lymph % (Auto) [place] % (Auto) Eos % (Auto) Baso % (Auto) Nucleat RBC Rel Count Neut # (Auto) Lymph # (Auto) [place] # (Auto) Eos # (Auto) Baso # [...] MPV Neut % (Auto) Lymph % (Auto) [place] % (Auto) Eos % (Auto) Baso % (Auto) Nucleat RBC Rel Count Neut # (Auto) Lymph # (Auto) [place] # (Auto) Eos # (Auto) Baso # [...] Acute Documented By: Joao Coley MD 09/08/23 2572 Signed By: <Electronically signed by MD Joao Coley> 09/09/23 120 [facility] Work Phone: [phone] 299-233512-05-2023 Procedure [facility]12-04-2023 Consult note Author Gabriela Florian [facility] September 08, 2023 3:25pm Note Date/Time September 08, 2023 3 :23pm [facility] [address] [place] [address] Cardiology Consult Note Signed Patient: Gage Lugo MR#: [id number] : 1950 Acct:[id number] Age/Sex: 73 / M Adm Date: 3 Loc: Room: [address] [place] [address] Type: ADM IN Attending Dr: Barbie Osborn MD Copies to: Gabriela Florian MD, [facility] DO Barbie Roca MD~ Cardiology HPI [...] obstruction. All other review of systems unremarkable. [facility] Medical History Chronic kidney disease, stage [...] mg PO BID 08/08/20 [History Confirmed 09/08/23] chcqdhpc-kijl-fdwvvds gluconate 9 mg iron/15 mL (15 mL) [...] x10E3/uL Lymph # (Auto) 1.9 (1.00-4.8) x10E3/uL [place] # (Auto) 0.9 H (0.0-0.8) x10E3/uL Eos [...] abdominal pain Documented By: Gabriela Florian MD, [facility] 3 151 Signed By: <Electronically signed by MD AYAAN Florian> 09/08/23 1525 [facility] Work Phone: [phone] Progress note Author Martínez Briceño [facility] September 08, 2023 3:14pm Note Date/Time September 08, 2023 3 :14pm [facility] [address] [place] [address] Progress Note Signed Patient: Gage Lugo MR#: [id number] : 1950 Acct:[id number] Age/Sex: 73 / M Adm Date: 3 Loc: Room: [address] [place] [address] Type: ADM IN Attending Dr: Barbie Osborn [...] signed by MD Martínez Briceño> 09/08/23 1514 [facility] Work Phone: [phone] 174-355112-04-2023 History and physical note Author Barbie Osborn [facility] September 08, 2023 2:39pm Note Date/Time September 08, 2023 2 :39pm [facility] [address] [place] [address] Hospitalist H&P Signed Patient: Gage Lugo MR#: [id number] : 1950 Acct:[id number] Age/Sex: 73 / M Adm Date: 3 Loc: Room: [address] [place] [address] Type: ADM IN Attending Dr: Barbie Osborn MD Copies to: Lolita Adorno, DO Barbie Osborn MD~ HPI DATE OF EXAMINATION: 09/08/23 CHIEF [...] negative unless noted below or in HPI [facility] Medical History Chronic kidney disease, stage [...] mg PO BID 08/08/20 [History Confirmed 12/31/22] sgzxcyos-tosd-yaiwedc gluconate 9 mg iron/15 mL (15 mL) [...] % (Auto) 21.4 % (.) 09/08/23 06:30 Camp % (Auto) 10.2 % (.) 09/08/23 06:30 Eos % (Auto) 4.4 % (.) 09/08/23 06:30 Baso % (Auto) 0.7 % (.) 09/08/23 06:30 Nucleat RBC Rel Count 0.1 /100 WBC (0-0.5) 09/08/23 06:30 Neut # (Auto) 5.5 x10E3/uL (1.8-7.7) 09/08/23 06:30 Lymph # (Auto) 1.9 x10E3/uL (1.00-4.8) 09/08/23 06:30 Camp # (Auto) 0.9 x10E3/uL (0.0-0.8) H 09/08/23 [...] signed by Barbie Osborn MD> 09/08/23 1439 [facility] Work Phone: [phone]) 972-534211-16-2023 Evaluation note* Encounter Date Diagnosis Assessment Notes [...] wean from splint and slowly progress activity [employer] Other 10-26-2023 Evaluation note* Encounter Date Diagnosis [...] the splint for activities. Call with questions/concerns. [employer] Other 10-19-2023 Evaluation note* Encounter Date Diagnosis [...] and elevate to decrease pain and swelling. [employer] Other 09-13-2023 Evaluation note* Encounter Date Diagnosis Assessment Notes Treatment Notes Treatment Clinical Notes Jun, Spinal stenosis at L4-L5 level (ICD-10 - M48.061) Mr Lugo is doing well Status post 9 months PLIF. Xray reviewed which shows good hardware placement and bony alignment. Advised to follow up in 3 months. 13 Jun, 2023 History of fusion of lumbar spine (ICD-10 - Z98.1) [employer] Other 08-28-2023 Evaluation note* Encounter Date Diagnosis Assessment Notes Treatment Notes Treatment Clinical Notes May, Type 2 diabetes mellitus with diabetic chronic kidney disease (ICD-10 - E11.22) over all doing well. continue as is. no lows. May, Stage 3b chronic kidney disease (CKD) (ICD-10 - N18.32) up to date with labs. May, Other encouraged flu, covid booster, RSV vaccines at pharmacy this fall. [employer] Other 08-17-2023 History general Narrative - Reported* Type Description Date Medical History High blood pressure Medical History T2DM Medical History IA Medical History 05/22 EGD and [facility] copy-2 [...] heart attack 08/24/20 Hospitalization History see above [employer] Other 08-17-2023 History general Narrative - Reported* Type Description Date Medical History High blood pressure Medical History T2DM Medical History IA Medical History 05/22 EGD and [facility] copy-2 [...] History see above Hospitalization History stomach pain [facility] [employer] Other 08-01-2023 Evaluation note* Encounter Date Diagnosis [...] 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 Follow up in 6 months. [employer] Other 02-20-2023 Evaluation note* Encounter Date Diagnosis Assessment Notes Treatment Notes Treatment Clinical Notes Nov, Lumbar radiculopathy (ICD-10 - M54.16) doing much better since surgery. Nov, Type 2 diabetes mellitus with diabetic chronic kidney disease (ICD-10 - E11.22) 1 month too early for a1c, checking sugars which have been good. will recheck in 3 months-he is in agreement. [employer] Other 01-12-2023 Evaluation note* Encounter Date Diagnosis [...] History of lumbar fusion (ICD-10 - Z98.1) [employer] Other 01-01-2023 Progress note Author Kali Isaac [facility] October 06, 2022 2:31pm Note Date/Time October 06, 2022 10 :42am [facility] [address] [place] [address] Hospitalist Progress Note Signed Patient: Gage Lugo MR#: [id number] : 1950 Acct:[id number] Age/Sex: 72 / M Adm Date: 2 Loc: Room: [address] [place] [address] Type: REG SDC Attending Dr: Clemente Miller [...] Insuln.Pen SUBCUT 10/02/23 14:12 Not Given TID.WM.HS [facility] [place] Protocol Insulin Glargine 10 units 10/06/22 09:00 [...] signed by Kali Isaac, > 10/06/22 1431 [facility] Work Phone: 1([phone]) 742-735501-01-2023 Progress note Author Clemente Miller [facility] October 06, 2022 8:55am Note Date/Time October 06, 2022 8: 55am [facility] [address] [place] [address] Neurosurgery Progress Note Signed Patient: Gage Lugo MR#: [id number] : 1950 Acct:[id number] Age/Sex: 72 / M Adm Date: 2 Loc: Room: [address] [place] [address] Type: REG [facility] Attending Dr: Clemente [...] signed by MD Clemente Miller> 10/06/22 0855 [facility] Work Phone: [phone] 444-426112-31-2022 Progress note Author Roberto Cullen [facility] October 05, 2022 11:34am Note Date/Time October 05, 2022 11:34am [facility] [address] [place] [address] Hospitalist Progress Note Signed Patient: Gage Lugo MR#: [id number] : 1950 Acct:[id number] Age/Sex: 72 / M Adm Date: 2 Loc: Room: [address] [place] [address] Type: REG [facility] Attending Dr: Clemente [...] Insuln.Pen SUBCUT 10/02/23 14:12 Not Given TID.WM.HS [facility] [place] Protocol Insulin Glargine 20 units 10/03/22 21:00 [...] ?Continue PT OT Documented By: Roberto Cullen, 10/05/22 1130 Signed By: <Electronically signed by Roberto Cullen, DO> 10/05/22 1134 [facility] Work Phone: [phone] Progress note Author Clemente Miller [facility] October 05, 2022 9:34am Note Date/Time October 05, 2022 9:34am [facility] [address] [place] [address] Neurosurgery Progress Note Signed Patient: Gage Lugo MR#: [id number] : 1950 Acct:[id number] Age/Sex: 72 / M Adm Date: 2 Loc: 4 Room: [id number] Type: REG SDC Attending Dr: Clemente Miller [...] Code(s): I25.10 - Atherosclerotic heart disease of [place] coronary artery without angina pectoris Status: Acute (6) Hyperlipemia: Code(s): E78.5 - Hyperlipidemia, unspecified Status: Acute (7) Leg weakness, bilateral: Code(s): R29.898 - Other symptoms and signs involving the musculoskeletal system Status: Acute Documented By: Clemente Miller MD 10/05/22931 Signed By: <Electronically signed by MD Clemente Miller> 10/05/2234 [facility] Work Phone: [phone]) 875-485012-30-2022 Progress note Author Beth Lowe [facility] October 04, 2022 11:41am Note Date/Time October 04, 2022 11:36am [facility] [address] [place] [address] Neurosurgery Progress Note Signed Patient: Gage Lugo MR#: [id number] : 1950 Acct:[id number] Age/Sex: 72 / M Adm Date: 2 Loc: 4N Room: [address] [place] [address] Type: REG SDC Attending Dr: Clemente Miller [...] % (Auto) 87.1, Lymph % (Auto) 6.1, Camp % (Auto) 6.6, Eos % (Auto)0.0, Baso % (Auto) 0.2, Nucleat RBC Rel Count 0.0, Neut # (Auto) 14.0 H, Lymph #(Auto) 1.0, Camp # (Auto) 1.1 H, Eos # (Auto) [...] Code(s): I25.10 - Atherosclerotic heart disease of [place] coronary artery without angina pectoris Status: Acute (6) Hyperlipemia: Code(s): E78.5 - Hyperlipidemia, unspecified Status: Acute (7) Leg weakness, bilateral: Code(s): R29.898 - Other symptoms and signs involving the musculoskeletal system Status: Acute Documented By: DEREK Ohara 10/04/22 1134 Signed By: <Electronically signed by DEREK Lowe> 10/04/22 1141 [facility] Work Phone: [phone]) 449-945812-30-2022 Progress note Author Kali Isaac [facility] October 04, 2022 10:20am Note Date/Time October 04, 2022 10:20am [facility] [address] [place] [address] Hospitalist Progress Note Signed Patient: Gage Lugo MR#: [id number] : 1950 Acct:[id number] Age/Sex: 72 / M Adm Date: 2 Loc: 4N Room: [address] [place] [address] Type: [facility] Attending Dr: Clemente Miller MD Copies to: [...] signed by Kali Isaac DO> 10/04/22 1020 [facility] Work Phone: [phone] Consult note Author Kali Isaac [facility] October 03, 2022 9:46am Note Date/Time October 03, 2022 9:46am [facility] [address] [place] [address] Hospitalist Consult Note Signed Patient: Gage Lugo MR#: [id number] : 1950 Acct:[id number] Age/Sex: 72 / M Adm Date: 2 Loc: 4N Room: [address] [place] [address] Type: REG SDC Attending Dr: Clemente Miller MD Copies to: MD Lolita Herman DO Kristopher L Lindbloom, DO~ HPI DATE OF CONSULTATION: 10/03/22 REQUESTING [...] except as mentioned elsewhere in the documentation. [facility] Vaccinated for COVID-19?: Yes Medical History Diabetes [...] mg PO BID 08/08/20 [History Confirmed 10/02/22] mvezfura-dyrv-uuwvlrx gluconate 9 mg iron/15 mL (15 mL) [...] tomorrow morning. Documented By: Kali Isaac DO 937 Signed By: <Electronically signed by Kali Isaac, > 10/03/22945 [facility] Work Phone: 1([phone]) 455-813912-29-2022 Progress note Author Beth Lowe [facility] October 03, 2022 7:40am Note Date/Time October 03, 2022 7:38am [facility] [address] [place] [address] Neurosurgery Progress Note Signed Patient: Gage Lugo MR#: [id number] : 1950 Acct:[id number] Age/Sex: 72 / M Adm Date: 2 Loc: Room: [address] [place] [address] Type: REG SDC Attending Dr: Clemente Miller [...] Patient (min): 20 Documented By: DEREK Ohara 10/03/22728 Signed By: <Electronically signed by DEREK Lowe> 10/03/22 0740 [facility] Work Phone: [phone]) [phone] Evaluation note* Encounter Date Diagnosis Assessment Notes [...] in agreement. reliable at checking sugars. Aug, assisted (current) use of insulin (ICD-10 - Z79.4) Aug, Hypertension, essential (ICD-10 - I10) controlled Aug, Spinal stenosis at L4-L5 level (ICD-10 - M48.061) is to have surgery with Dr. Miller, apparently waiting cardiac clearance. [employer] Other 11-10-2022 Evaluation note* Encounter Date Diagnosis Assessment Notes Treatment Notes Treatment Clinical Notes Aug, Coronary artery disease involving [place] coronary artery of [place] heart without angina pectoris (ICD-10 - I25.10) [...] Aug, Foot drop, left (ICD-10 - M21.372) [employer] Other 09-15-2022 Evaluation note* Encounter Date Diagnosis Assessment Notes Treatment Notes Treatment Clinical Notes Jun, Coronary artery disease involving [place] coronary artery of [place] heart without angina pectoris (ICD-10 - I25.10) [...] Jun, Foot drop, left (ICD-10 - M21.372) [employer] Other 08-29-2022 Evaluation note* Encounter Date Diagnosis Assessment Notes Treatment Notes Treatment Clinical Notes May, Spinal stenosis at L4-L5 level (ICD-10 - M48.061) May, Spinal stenosis of lumbar region with neurogenic claudication (ICD-10 - M48.062) [employer] Other 08-17-2022 History general Narrative - Reported* Type Description Date Medical History High blood pressure Medical History T2DM Medical History IA Medical History 05/22 EGD and [facility] copy-2 cm tubular adenoma removed Medical History injections - back pain Surgical History neck Surgical History first rib removed Surgical History lower back - injections Surgical History cardiac stents - Dr. Florian Surgical History Colonoscopy 09/12/21 Hospitalization History heart attack 08/24/20 17 Hospitalization History see above [employer] Other 08-17-2022 History general Narrative - Reported* Type Description Date Medical History High blood pressure Medical History T2DM Medical History IA Medical History 05/22 EGD and Colonos copy-2 [...] attack 08/24/20 17 Hospitalization History see above [employer] Other 08-09-2022 Evaluation note* Encounter Date Diagnosis [...] Z12.5) May, Hypertension, essential (ICD-10 - I10) [employer] Other 05-09-2022 Evaluation note* Encounter Date Diagnosis [...] chronic kidney disease (CKD) (ICD-10 - N18.32) [employer] Other 02-08-2022 Evaluation note* Encounter Date Diagnosis [...] changes his mind. no red flag symptoms. [employer] Other 01-27-2022 Evaluation note* Encounter Date Diagnosis Assessment Notes Treatment Notes Treatment Clinical Notes Oct, Type 2 diabetes mellitus with diabetic chronic kidney disease (ICD-10 - E11.22) [employer] Other 01-27-2022 Evaluation note* Encounter Date Diagnosis Assessment Notes Treatment Notes Treatment Clinical Notes Oct, Thyroid nodule (ICD-10 - E04.1) [employer] Other 01-26-2022 Evaluation note* Encounter Date Diagnosis Assessment Notes Treatment Notes Treatment Clinical Notes Oct, Hemorrhoids (ICD-10 - K64.9) Oct, Diverticulosis (ICD-10 - K57.90) Oct, Gas (ICD-10 - R14.3) REASSURED CAN USE OTC PROBIOTIC Oct, Other REPEAT COLON IN 5 YEARS [employer] Other 11-23-2021 Evaluation note* Encounter Date Diagnosis Assessment Notes Treatment Notes Treatment Clinical Notes Aug, Screening for colon cancer (ICD-10 - Z12.11) [employer] Other 11-04-2021 Evaluation note* Encounter Date Diagnosis [...] back. did not discuss this in office. [employer] Other discharge summary Author Barbie Osborn [facility] September 11, 2023 12:46pm Note Date/Time September 11, 2023 1 2:34pm [facility] [address] [place] [address] Discharge Summary Signed Patient: Gage Lugo MR#: [id number] : 1950 Acct:[id number] Age/Sex: 73 / M Adm Date: 3 Loc: Room: [address] [place] [address]: Barbie Osborn MD Copies to: [...] % (Auto) 60.7, Lymph % (Auto) 21.8, Camp % (Auto) 12.6, Eos % (Auto) 4.4, Baso % (Auto) 0.5, Nucleat RBC Rel Count 0.0, Neut # (Auto) 4.8, Lymph # (Auto) 1.7, Camp # (Auto) 1.0 H, Eos # (Auto) 0.4, Baso # (Auto) 0.0 09/10/23 21:16: POC Glucose 183 09/10/23 16:12: POC Glucose 193 09/10/23 04:39: CA 19-9 Antigen 23 09/09/23 13:43: Serum Total Protein 5.6 L, Albumin (Send Out) 3.2, Globulin (PEP) 2.4, Albumin/Globulin (PEP) 1.3, Igufa-9-Tqqmqauhb 0.2, Ijbmo-2-Lybjwqdho 0.7, Beta Globulins 0.7, Gamma Globulins 0.8, M-Donaldo Not observed, PEP Note , IgG 793, IgA 159, IgM 47, Serum Immunofixation , Free [place] LC, Quant 52.6 H, Free Lambda LC, Quant 28.0 H, Free [place]/Lambda Ratio 1.88 H Exam Physical Exam Vital [...] Chest Pain) 30 Days Qty: 30 2RF oazuixil-nbs-faptozo gluconate [Centrum] 9 mg iron/ 15 mL [...] signed by Barbie Osborn MD> 09/11/23 1246 [facility] Work Phone: Discharge summary Author Matheus Robison [facility] Note Date/Time October 06, 2024 1: 49pm [facility] [address] [place] [address] Discharge Summary Signed Patient: Gage Lugo MR#: [id number] : 1950 Acct:[id number] Age/Sex: 74 / M Adm Date: 4 Loc: Room: [address] [place] [address]: Matheus Robison MD Copies to: [...] status post stent, diabetes, hyperlipidemia presented to [facility] ED for hyperkalemia. Patient had had a lab work done at [facility] and was recommended to come to [facility]'s ED for elevated potassium. Patient denied any symptoms like chest pain shortness of breath palpitation. Patient follows with peripheral vascular tech here for CKD. Lab work here shows [...] also improved significantly and is currently normotensive. Overlock Collar Setter recommended continuing clonidine and discontinuing spironolactone on discharge. He is also recommended to hold on Lasix until seen by PCP/peripheral vascular tech. He is also recommended to get a outpatient BMP before seeing his PCP/peripheral vascular tech. His urinalysis was suggestive of UTI with [...] Please hold Lasix until seen by your PCP/peripheral vascular tech. Discontinued spironolactone 25 mg tablet 25 mg [...] % (Auto) 46.0, Lymph % (Auto) 37.3, Camp % (Auto) 12.9, Eos % (Auto) 3.3, Baso % (Auto) 0.5, Nucleat RBC Rel Count 0.1, Neut # (Auto) 3.5, Lymph # (Auto) 2.8, Camp # (Auto) 1.0 H, Eos # (Auto) [...] signed by Matheus Robison MD> 10/06/24 1349 [facility] Work Phone: Discharge summary Author Matheus Robison [facility] Note Date/Time October 08, 2024 12 :41pm [facility] [address] [place] [address] Discharge Summary Signed with Addenda Patient: Gage Lugo MR#: [id number] : 1950 Acct:[id number] Age/Sex: 74 / M Adm Date: 5 Loc: Room: [address] [place] [address]: Matheus Robison MD Copies to: MD Lolita Salinas, DO~ ADDENDUM1 Discharge summary-[facility] and outpatient BMP and follow-up with peripheral vascular tech. Addendum Documented By: Matheus Robison MD 10/08/24 [...] improved. His potassium is down to 4.2. 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 He is also recommended low potassium diet. [...] % (Auto) 49.3, Lymph % (Auto) 34.9, Camp % (Auto) 12.6, Eos % (Auto) 2.7, Baso % (Auto) 0.5, Nucleat RBC Rel Count 0.1, Neut # (Auto) 3.7, Lymph # (Auto) 2.6, Camp # (Auto) 0.9 H, Eos # (Auto) [...] signed by Matheus Robison MD> 10/08/24 1235 [facility] Work Phone: Evaluation noteNo InformationNort [employer] Other Evaluation noteNo assessment information available [facility] Work Phone: Evaluation note* Diagnosis Onset Date Resolution Status Accelerated hypertension acu te CAD (coronary artery disease) acute Diabetes mellitus with hyperglycemia acute Hyperlipemia acute Leg weakness, bilateral acut e Lumbar stenosis with neurogenic claudication acute Nausea acute Spondylolisthesis, lumbar region acute [facility] Work Phone: Evaluation note* Diagnosis Onset Date Resolution Status Abdominal pain acute Accelerated hypertension acu te Acute kidney injury superimposed on CKD acute MEAGHAN (acute kidney injury) ac ivan Anemia of renal disease acut e Atypical chest pain acute CAD (coronary artery disease) acute Chronic kidney disease, stage III (moderate) acute Chronic pancreatitis acute Duodenitis acute Dyslipidemia acute Elevated troponin acute [id number] acute Hypertensive emergency acute Proteinuria acute Stented coronary artery acut e Type 2 diabetes mellitus wit h diabetic chronic kidney disease acute Diabetes chronic [facility] Work Phone: Evaluation note* Diagnosis 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of [place] coronary artery of [place] heart without angina pectoris Essential hypertension Unspecified essential hypertension History of IA (myocardial infarction) Old myocardial infarction Mixed hyperlipidemia S/P PTCA (percutaneous transluminal coronary angioplasty) Postsurgical percutaneous transluminal coronary angioplasty status Stage 3a chronic kidney disease ([facility]) Current smoker on some days Type 2 diabetes mellitus without complication, with long-term current use of insulin ([facility]) Overweight with body mass index (BMI) of 27 to 27.9 in adult Atherosclerotic heart disease of [place] coronary artery without angina pectoris documented in this encounter [facility] Work Phone: Evaluation note* Diagnosis Onset Date Resolution Status Chronic kidney disease, stage III (moderate) acute Hyperlipemia acute Type 2 diabetes mellitus wit h diabetic chronic kidney disease [facility] Work Phone: Evaluation note* Diagnosis Onset Date Resolution Status Chronic kidney disease, stage III (moderate) acute Hyperlipemia acute Type 2 diabetes mellitus wit h diabetic chronic kidney disease acute Acute kidney injury superimposed on CKD acute Epigastric pain acute [facility] Work Phone: Evaluation note* Diagnosis Onset Date Resolution Status Chronic kidney disease, stage III (moderate) acute Hyperlipemia acute Type 2 diabetes mellitus wit h diabetic chronic kidney disease acute Acute kidney injury superimposed on CKD acute Epigastric pain acute Type 2 diabetes mellitus wit h diabetic chronic kidney disease acute [facility] Work Phone: Evaluation note* Diagnosis Onset [...] wit h diabetic chronic kidney disease acute [facility] Work Phone: Evaluation note* Diagnosis Onset Date Resolution Status Chronic kidney disease, stage III (moderate) acute HTN (hypertension) acute Medicare annual wellness visit, subsequent acute Type 2 diabetes mellitus wit h diabetic chronic kidney disease acute Anemia of renal disease acut e Chronic kidney disease, stage III (moderate) acute Dyslipidemia acute [id number] acute Secondary hyperparathyroidism acute Type 2 diabetes mellitus wit h diabetic chronic kidney disease acute [facility] Work Phone: Evaluation note* Diagnosis Onset Date Resolution Status Anemia of renal disease acut e Chronic kidney disease, stage III (moderate) acute Dyslipidemia acute [id number] acute Secondary hyperparathyroidism acute Type 2 diabetes mellitus wit h diabetic chronic kidney disease acute Type 2 diabetes mellitus wit h diabetic chronic kidney disease acute [facility] Work Phone: Evaluation note* Diagnosis Multiple thyroid nodules (CMS/HCC)- Primary Nontoxic multinodular goiter [facility] Diagnosis Neurogenic pain of right lower [...] (HCC) Paralysis, unspecified Coronary artery disease involving [place] coronary artery of [place] heart without angina pectoris Abnormal ECG Nonspecific abnormal electrocardiogram (ECG) (EKG) documented in this [facility] [place] [facility] Diagnosis 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of [place] coronary artery of [place] heart without angina pectoris Essential hypertension Unspecified essential hypertension History of IA (myocardial infarction) Old myocardial infarction Mixed hyperlipidemia S/P PTCA (percutaneous transluminal coronary angioplasty) Postsurgical percutaneous transluminal coronary angioplasty status Type 2 diabetes mellitus with stage 3a chronic kidney disease, with long-term current use of insulin (Multi) Stage 4 chronic kidney disease (Multi) Current smoker on some days BMI 26.0-26.9,adult documented in this encounter [facility] Work Phone: History and physical note Author Matheus Robison [facility] Note Date/Time October 06, 2024 5: 51pm [facility] EN[facility] [address] [place], [place] [address]ist H&P Signed with Addenda Patient: Gage Lugo MR#: [id number] : 1950 Acct:[id number] Age/Sex: 74 / M Adm Date: 5 Loc: Room: 2A0372-0 Type: ADM IN Attending Dr: Matheus Robison MD Copies to: MD Lolita Salinas, DO~ ADDENDUM1 -Complicated UTI -Recent urinalysis suggestive [...] negative unless noted below or in HPI [facility] Medical History (Updated 10/06/24 @ 17:38 by [...] days #30 tabs 08/26/17 [Rx Confirmed 10/06/24] kxvfdrok-npnt-awwmlop gluconate 9 mg iron/15 mL (15 mL) [...] % (Auto) 27.0 % (.) 10/06/24 15:09 Camp % (Auto) 9.9 % (.) 10/06/24 15:09 Eos % (Auto) 2.7 % (.) 10/06/24 15:09 Baso % (Auto) 0.6 % (.) 10/06/24 15:09 Nucleat RBC Rel Count 0.1 /100 WBC (0-0.5) 10/06/24 15:09 Neut # (Auto) 4.2 x10E3/uL (1.8-7.7) 10/06/24 15:09 Lymph # (Auto) 1.9 x10E3/uL (1.00-4.8) 10/06/24 15:09 Camp # (Auto) 0.7 x10E3/uL (0.0-0.8) 10/06/24 15:09 [...] pH 5.0 (5.0-9.0) 10/06/24 16:39 Ur Specific [place] 1.010 (1.001-1.030) 10/06/24 16:39 Urine Protein Trace [...] 3 Documented By: Matheus Robison MD 10/06/24 173 Signed By: <Electronically signed by Matheus Robison MD> 10/06/24 1746 [facility] Work Phone: History general Narrative - Reported* Type Description [...] attack 08/24/20 17 Hospitalization History see above [employer] Other History general Narrative - Reported* Type Description [...] attack 08/24/20 17 Hospitalization History see above [employer] Other [place] general Narrative - Reported* Type Description Date Medical History High blood pressure Medical History T2DM Medical History IA Medical History 05/22 EGD and Colonos copy-2 cm tubular adenoma removed Medical History injections - back pain Surgical History neck Surgical History first rib removed Surgical History lower back - injections Surgical History cardiac stents - Dr. Florian Surgical History Colonoscopy 09/12/21 Hospitalization History heart attack 08/24/20 17 Hospitalization History see above [employer] Other Hisnexm general Narrative - Reported* Type Description Date Medical History High blood pressure Medical History T2DM Medical History IA Medical History 05/22 EGD and Colonos copy-2 [...] attack 08/24/20 17 Hospitalization History see above [employer] Other Hislrii general Narrative - Reported* Type Description Date Medical History High blood pressure Medical History T2DM Medical History IA Medical History 05/22 EGD and Colonos copy-2 [...] History see above Hospitalization History stomach pain [facility] [employer]) Other History of Present illness Narrative* Rai Alex Justino, DO - 06/23/2024 1:15 PM EDT Subjective [...] him back as needed [facility] Additional Instructions Take the antibiotic [...] swelling pain fever chills or any [facility] Work Phone: Hospital Discharge instructionsAmbulatory Orders* PT/OT/SP [...] it does not do not use the [facility]one[facility] Work Phone: Hospital Discharge instructions Additional Instructions Rest ice elevate your hand and knee Keep the splint on the hand do not remove apply ice keep it clean and dry Wear the knee immobilizer anytime you are up moving around to support and stabilize the knee Take 1 hydrocodone every 6 hours for severe pain Follow-up with [facility] Return to the ER for worsening pain additional injuries or any other concerns [facility] Work Phone: Hospital Discharge instructions Additional Instructions Monitor glucose levels as before.[facility] Work Phone: Progress note Author Tito Martinez [facility] Note Date/Time October 06, 2024 2: 24pm [facility] [address] [place] [address] Nephrology Progress Note Signed Patient: Gage Lugo MR#: [id number] : 1950 Acct:[id number] Age/Sex: 74 / M Adm Date: 4 Loc: Room: [address] [place] [address] Type: ADM IN Attending Dr: Matheus Robison [...] (Aspirin 81 Mg Tab.Chew) 81 mg PO [facility] Stop: 10/05/25 08:59 Last Admin: 10/06/24 08:28 Dose: 81 mg Atorvastatin Calcium (Atorvastatin 20 Mg Tablet) 20 mg PO QHS [facility] Stop: 10/04/25 21:59 Last Admin: 10/05/24 20:53 Dose: 20 mg Carvedilol (Carvedilol 25 Mg Tablet) 25 mg PO BID.WITH.MEALS [facility] Stop: 10/05/25 07:59 Last Admin: 10/06/24 08:28 Dose: 25 mg Ceftriaxone Sodium (Ceftriaxone 1 Gm/10 Ml Syringe) 1 gm IV-PUSH DAILY@1630 [facility] Last Admin: 10/05/24 21:14 Dose: 1 gm Clonidine HCl (Clonidine 0.2 Mg Tablet) 0.2 mg PO BID [facility] Stop: 10/05/25 11:44 Last Admin: 10/06/24 08:28 Dose: 0.2 mg Cyanocobalamin (Cyanocobalamin 1,000 Mcg Tablet) 1,000 mcg PO QAM [facility] Stop: 10/05/25 08:59 Last Admin: 10/06/24 08:28 [...] Mg/0.3 Ml Syringe) 30 mg SUBCUT DAILY@10 [facility] Stop: 10/05/25 09:59 Last Admin: 10/06/24 09:54 Dose: Not Given Ergocalciferol (Ergocalciferol 1,250 Mcg (50,000 Units) Capsule) 1,250 mcg PO Tu@0900 [facility] Stop: 10/05/25 08:59 Last Admin: 10/05/24 08:13 Dose: 1,250 mcg Ferrous Sulfate (Ferrous Sulfate 324 Mg Tablet.Dr) 324 mg PO DAILY.WITH.LUNCH [facility] Stop: 10/05/25 11:59 Last Admin: 10/06/24 12:31 Dose: 324 mg Furosemide (Furosemide 40 Mg Tablet) 40 mg PO BID@0800,1600 [facility] Stop: 10/05/25 15:59 Last Admin: 10/06/24 08:28 Dose: 40 mg Glucose (Dextrose 40% Gel 15 Gm Tube) 0 gm PO PRN PRN PRN Reason: Hypoglycemia Stop: 10/04/25 20:29 Hydralazine HCl (Hydralazine 50 Mg Tablet) 100 mg PO TID [facility] Stop: 10/04/25 21:59 Last Admin: 10/06/24 08:27 Dose: 100 mg Insulin Aspart (Insulin Aspart 300 Units/3 Ml) 0 units SUBCUT TID.WM.HS [facility]; Protocol Stop: 10/04/25 21:59 Last Admin: 10/06/24 12:32 Dose: 1 units Insulin Glargine (Insulin Glargine 300 Units/3 Ml Insuln.Pen) 10 units SUBCUT BID [facility] Stop: 10/05/25 08:59 Last Admin: 10/06/24 08:28 [...] Tito Martinez MD 10/06/24 142 Signed By: <Electronically signed by Tito Martinez MD> 10/06/24 1426 [facility] Work Phone: Progress note Author Tito Martinez [facility] Note Date/Time October 07, 2024 12 :56pm [facility] [address] [place] [address] Nephrology Progress Note Signed Patient: Gage Lugo MR#: [id number] : 1950 Acct:[id number] Age/Sex: 74 / M Adm Date: 5 Loc: Room: [address] [place] [address] Type: ADM IN Attending Dr: Matheus Robison [...] yesterday with stable blood pressure. [place] started to have nausea vomiting and [...] 12:00 10/07/24 12:00 10/07/24 12:00 Narrative: General: No acute distress Head [...] 81 Mg Tab.Chew) 81 mg PO QAM [facility] Stop: 10/07/25 08:59 Last Admin: 10/07/24 08:10 Dose: 81 mg Atorvastatin Calcium (Atorvastatin 20 Mg Tablet) 20 mg PO QHS [facility] Stop: 10/06/25 21:59 Last Admin: 10/06/24 21:29 Dose: 20 mg Carvedilol (Carvedilol 25 Mg Tablet) 25 mg PO BID.WITH.MEALS [facility] Stop: 10/07/25 07:59 Last Admin: 10/07/24 08:10 Dose: 25 mg Clonidine HCl (Clonidine 0.1 Mg Tablet) 0.1 mg PO Q12HR [facility] Stop: 10/07/25 08:59 Last Admin: 10/07/24 09:45 Dose: Not Given Cyanocobalamin (Cyanocobalamin 1,000 Mcg Tablet) 1,000 mcg PO QAM [facility] Stop: 10/07/25 08:59 Last Admin: 10/07/24 08:10 Dose: 1,000 mcg Cyclobenzaprine HCl (Cyclobenzaprine 10 Mg Tablet) 10 mg PO QHS PRN PRN Reason: spasms Stop: 10/06/25 21:59 Dextrose (Dextrose 50% In Water 25 Gm/50 Ml Syringe) 0 gm IV-PUSH PRN PRN PRN Reason: Hypoglycemia Stop: 10/06/25 17:22 Enoxaparin Sodium (Enoxaparin 30 Mg/0.3 Ml Syringe) 30 mg SUBCUT DAILY@10 [facility] Stop: 10/07/25 09:59 Last Admin: 10/07/24 09:45 Dose: 30 mg Ergocalciferol (Ergocalciferol 1,250 Mcg (50,000 Units) Capsule) 1,250 mcg PO Tu@0900 [facility] Stop: 10/12/25 08:59 Ferrous Sulfate (Ferrous Sulfate 324 Mg Tablet.Dr) 324 mg PO DAILY [facility] Stop: 10/07/25 08:59 Last Admin: 10/07/24 08:10 Dose: 324 mg Gabapentin (Gabapentin 300 Mg Capsule) 300 mg PO BID [facility] Stop: 10/06/25 20:59 Last Admin: 10/07/24 08:09 Dose: 300 mg Glucose (Dextrose 40% Gel 15 Gm Tube) 0 gm PO PRN PRN PRN Reason: Hypoglycemia Stop: 10/06/25 17:22 Hydralazine HCl (Hydralazine 50 Mg Tablet) 100 mg PO TID [facility] Stop: 10/06/25 21:59 Last Admin: 10/07/24 08:10 Dose: 100 mg Levofloxacin (Levaquin) 500 mg in 100 mls @ 100 mls/hr IV Q48H [facility] Insulin Aspart (Insulin Aspart 300 Units/3 Ml) 0 units SUBCUT TID.WM.HS [facility]; Protocol Stop: 10/06/25 21:59 Last Admin: 10/07/24 11:54 Dose: 1 units Insulin Glargine (Insulin Glargine 300 Units/3 Ml Insuln.Pen) 10 units SUBCUT BID [facility] Stop: 10/06/25 20:59 Last Admin: 10/07/24 08:11 Dose: 10 units Isosorbide Mononitrate (Isosorbide Mononitrate 24hr Er 30 Mg Tab.Er.24h) 30 mg PO QAM [facility] Stop: 10/07/25 08:59 Last Admin: 10/07/24 08:09 Dose: 30 mg Loratadine (Loratadine 10 Mg Tablet) 10 mg PO BID [facility] Stop: 10/06/25 20:59 Last Admin: 10/07/24 08:09 Dose: 10 mg Magnesium Oxide (Magnesium Oxide 400 Mg Tablet) 400 mg PO BID [facility] Stop: 10/09/24 10:29 Last Admin: 10/07/24 10:11 Dose: 400 mg Multivitamins (Multivitamin 1 Tab Tablet) 1 tab PO DAILY [facility] Stop: 10/07/25 08:59 Last Admin: 10/07/24 08:10 [...] 10 Gm Powd.Pack) 10 gm PO DAILY [facility]; Protocol Stop: 10/07/25 08:59 Last Admin: 10/07/24 [...] Appearance Clear Urine pH 5.0 Ur Specific [place] 1.010 Urine Protein Trace H Urine Glucose [...] <Electronically signed by Tito Martinez MD> 10/07/24 1254 [facility] Work Phone: Progress note Author Matheus Robison [facility] Note Date/Time October 07, 2024 1: 17pm [facility] [address] [place] [address] Hospitalist Progress Note Signed Patient: Gage Lugo MR#: [id number] : 1950 Acct:[id number] Age/Sex: 74 / M Adm Date: 5 Loc: 3T Room: [address] [place] [address] Type: ADM IN Attending Dr: Matheus Robison [...] Tablet PO 10/07/25 08:59 Not Given Q12HR [facility] Cyanocobalamin 1,000 mcg 10/07/24 09:00 10/07/24 08:10 [...] Tablet PO 10/07/25 08:59 1 tab DAILY VAEN Administration Nitroglycerin 0.4 mg 10/06/24 17:12 Nitroglycerin [...] <Electronically signed by Matheus Robison MD> 10/07/24 3714 [facility] Work Phone: Progress note Author Tito Martinez [facility] Note Date/Time October 08, 2024 1: 44pm [facility] [address] [place] [address] Nephrology Progress Note Signed Patient: Gage Lugo MR#: [id number] : 1950 Acct:[id number] Age/Sex: 74 / M Adm Date: 5 Loc: Room: [address] [place] [address] Type: ADM IN Attending Dr: Matheus Robison [...] 81 Mg Tab.Chew) 81 mg PO QAM [facility] Stop: 10/07/25 08:59 Last Admin: 10/08/24 08:15 Dose: 81 mg Atorvastatin Calcium (Atorvastatin 20 Mg Tablet) 20 mg PO QHS [facility] Stop: 10/06/25 21:59 Last Admin: 10/07/24 21:19 Dose: 20 mg Carvedilol (Carvedilol 25 Mg Tablet) 25 mg PO BID.WITH.MEALS [facility] Stop: 10/07/25 07:59 Last Admin: 10/08/24 08:15 Dose: 25 mg Clonidine HCl (Clonidine 0.1 Mg Tablet) 0.1 mg PO Q12HR [facility] Stop: 10/07/25 08:59 Last Admin: 10/08/24 08:15 Dose: 0.1 mg Cyanocobalamin (Cyanocobalamin 1,000 Mcg Tablet) 1,000 mcg PO QAM [facility] Stop: 10/07/25 08:59 Last Admin: 10/08/24 08:15 Dose: 1,000 mcg Cyclobenzaprine HCl (Cyclobenzaprine 10 Mg Tablet) 10 mg PO QHS PRN PRN Reason: spasms Stop: 10/06/25 21:59 Dextrose (Dextrose 50% In Water 25 Gm/50 Ml Syringe) 0 gm IV-PUSH PRN PRN PRN Reason: Hypoglycemia Stop: 10/06/25 17:22 Enoxaparin Sodium (Enoxaparin 30 Mg/0.3 Ml Syringe) 30 mg SUBCUT DAILY@10 [facility] Stop: 10/07/25 09:59 Last Admin: 10/08/24 09:37 Dose: Not Given Ergocalciferol (Ergocalciferol 1,250 Mcg (50,000 Units) Capsule) 1,250 mcg PO Tu@0900 [facility] Stop: 10/12/25 08:59 Ferrous Sulfate (Ferrous Sulfate 324 Mg Tablet.Dr) 324 mg PO DAILY [facility] Stop: 10/07/25 08:59 Last Admin: 10/08/24 08:15 Dose: 324 mg Gabapentin (Gabapentin 300 Mg Capsule) 300 mg PO BID [facility] Stop: 10/06/25 20:59 Last Admin: 10/08/24 08:15 Dose: 300 mg Glucose (Dextrose 40% Gel 15 Gm Tube) 0 gm PO PRN PRN PRN Reason: Hypoglycemia Stop: 10/06/25 17:22 Hydralazine HCl (Hydralazine 50 Mg Tablet) 100 mg PO TID [facility] Stop: 10/06/25 21:59 Last Admin: 10/08/24 08:15 Dose: 100 mg Insulin Aspart (Insulin Aspart 300 Units/3 Ml) 0 units SUBCUT TID.[facility]; Protocol Stop: 10/06/25 21:59 Last Admin: 10/08/24 11:52 Dose: 2 units Insulin Glargine (Insulin Glargine 300 Units/3 Ml Insuln.Pen) 10 units SUBCUT BID [facility] Stop: 10/06/25 20:59 Last Admin: 10/08/24 08:15 Dose: 10 units Isosorbide Mononitrate (Isosorbide Mononitrate 24hr Er 30 Mg Tab.Er.24h) 30 mg PO QAM [facility] Stop: 10/07/25 08:59 Last Admin: 10/08/24 08:15 Dose: 30 mg Loratadine (Loratadine 10 Mg Tablet) 10 mg PO BID [facility] Stop: 10/06/25 20:59 Last Admin: 10/08/24 08:15 Dose: 10 mg Magnesium Oxide (Magnesium Oxide 400 Mg Tablet) 400 mg PO BID [facility] Stop: 10/09/24 10:29 Last Admin: 10/08/24 08:15 Dose: 400 mg Multivitamins (Multivitamin 1 Tab Tablet) 1 tab PO DAILY [facility] Stop: 10/07/25 08:59 Last Admin: 10/08/24 08:15 [...] 10 Gm Powd.Pack) 10 gm PO DAILY [facility]; Protocol Stop: 10/07/25 08:59 Last Admin: 10/08/24 [...] team Documented By: Tito Martinez MD 10/08/24 2063 Signed By: <Electronically signed by Tito Martinez MD> 10/08/24 8708 [facility] Work Phone: Reason for referral (narrative)* Consultation (Routine) - Authorized Specialty Diagnoses / Procedures Referred By Contac t Referred To Contact Cardiology Diagnoses 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of [place] coronary artery of [place] heart without angina pectoris Procedures Follow Up In Cardiology Gabriela Florian MD [address] [facility] [address], [address] [address] Gabriela Florian MD [address] [facility] [address], [address] [address] Referral ID Status Reason Start Date Expiration Date V isits Requested Visits Authorized [id number] Authorized 10/16/2023 10/15/2024 1 1 [facility] Work Phone: Reqwuw for referral (narrative)No reason for [facility]: Summary Purpose Family History Unknown [...] Name Relationship Healthcare Agent Relationship Communication Elena Luo Primary Decision Maker Chief Complaint * GAGE [...] problems noted below accompanied by his karon e. He recently underwent lumbar spinal surgery by Dr. Miller at [facility] with no complication he continuesto wear his [...] Referral Specialty Diagnoses / Procedures Referred By Hammad solano Referred To Contact Occupational Therapy Diagnoses Stenosis of cervical spine with myelopathy (HCC) Lumbar stenosis with neurogenic claudication Yazan Rainey MD [address] [place] [id number] [facility] Occupation Therapy [address] [place] [id number] Referral ID Status Reason Start Date Expiration Date V isits Requested Visits Authorized [id number] Open Specialty Services Required 05/31/2024 05/31/2025 1 1 Scheduling Instructions [facility] Please call within 48 hours to schedule your appointment. Comments The patient can be scheduled with any member of the group, including the provider with the first available appointments. Specialty Diagnoses / Procedures Referred By Hammad solano Referred To Contact Physical Therapy Diagnoses Stenosis of cervical spine with myelopathy (HCC) Lumbar stenosis with neurogenic claudication Yazan Rainey MD [address] [place] [id number] [facility] Physical Therapy [address] [place] [phone] Referral ID Status Reason Start Date Expiration Date V isits Requested Visits Authorized [id number] Open Specialty Services Required 05/31/2024 05/31/2025 1 1 Scheduling Instructions [facility] Physical Medicine and Rehabilitation Please call within 48 hours to schedule your appointment. Reason Evaluate and Treat B ack and Leg Pain Diagnosis 1 Spinal stenosis at L 4-L5 level (M48.061) Referral Organization [facility] urosurgery Referring Provider First Name Clemente Referring Provider Last Name Angela Referring Provider Specialty Neurologica l Surgery Referred Organization [facility] Referred Address [address] [facility], [place], [place],[address] Referred Provider Specialty Physical The rapist Referral Priority Routine Reason left lumbar radiculo riana, spinal stenosis Diagnosis 1 Spinal stenosis of l umbar region with neurogenic claudication (M48.062) Referral Organization [facility] [place] Referring Provider First Name Lolita Referring Provider Last Name Kyree Referring Provider Specialty Family [facility] Referred Organization Unknown Facility Referred Provider Specialty Neurological Surgery Referral Priority Routine Reason thyroid nodule 2. 2cm, has been monitoring with with previous PCP Diagnosis 1 Thyroid nodule (E04. 1) [facility] [place] Referring Provider First Name Lolita Referring Provider Last Name Kyree Referring Provider Specialty [facility] Referred Organization [facility] Referred Provider Rai Badillo Referred Address ,[place], [place],[address] Referred Provider Specialty Otolaryngolo gy Referral Priority Routine General Notes Ligia Amaro 03:38:42 PM >waiting for labs to be drawn prior to sending. [employer] per cert #[id number] per [employer]. Chief Complaint and Reason for [...] (moderate) Chronic pancreatitis Duodenitis Dyslipidemia Elevated troponin [id number] Hypertensive emergency Proteinuria Stented coronary artery Type [...] (moderate) Chronic pancreatitis Duodenitis Dyslipidemia Elevated troponin [id number] Hypertensive emergency Proteinuria Stented coronary artery Type [...] (moderate) Chronic pancreatitis Duodenitis Dyslipidemia Elevated troponin [id number] Hypertensive emergency Proteinuria Stented coronary artery Type [...] Chronic kidney disease, stage III (moderate) Dyslipidemia [id number] Secondary hyperparathyroidism Type 2 diabetes mellitus with diabetic chronic kidney disease Chief Complaint RENAL 6 month follow up 4 month Reason for Visit Anemia of renal dise ase Chronic kidney disease, stage III (moderate) Dyslipidemia [id number] Secondary hyperparathyroidism Type 2 diabetes mellitus with [...] 10:35am Anemia of renal disease August 30, 024 2:45pm Hypertensive chronic kidney disease with [...] Date Anemia of renal disease August 30, 2:45pm Hypertensive chronic kidney disease with stage [...] 8:31am Dyslipidemia October 27, 2024 8 :31am Chief Complaint Admit Date RENAL 4 MONTH F/U August 30, 2024 [...] RENAL HOSP F/U / HYPOKALEMIA October 8:31am 4 month November 22, 2024 8:43am Reason for Visit Admit Date Anemia of [...] 8:31am Dyslipidemia October 27, 2024 8 :31am Diabetes mellitus November 22, 2024 8:43am Chief Complaint Admit Date RENAL 4 MONTH F/U August 30, 2024 [...] RENAL HOSP F/U / HYPOKALEMIA October 8:31am 4 month November 22, 2024 8:43am N62 November 23, 2024 10:21am Reason for Visit Admit Date Anemia of [...] 8:31am Dyslipidemia October 27, 2024 8 :31am Chronic kidney disease, stage IV (severe ) November 22, 2024 8:43am Chronic renal insufficiency November 8:43am Diabetes mellitus November 22, 2024 8:43am Gynecomastia November 22, 2024 8:43am HTN (hypertension) November 22, 2024 8:43am Hypokalemia November 22, 2024 8:43am Chief Complaint Admit Date E87.5 - Hyperkalemia October 04, 2024 1:05pm [...] RENAL HOSP F/U / HYPOKALEMIA October 8:31am 4 month November 22, 2024 8:43am N62 November 23, 2024 10:21am N25.81 N18.9 December 13, 2024 9:4 7am Reason for Visit Admit Date CAD (coronary artery disease) September 072023 6:44pm [...] 8:31am Dyslipidemia October 27, 2024 8 :31am Chronic kidney disease, stage IV (severe ) November 22, 2024 8:43am Chronic renal insufficiency November 8:43am Diabetes mellitus November 22, 2024 8:43am Gynecomastia November 22, 2024 8:43am HTN (hypertension) November 22, 2024 8:43am Hypokalemia November 22, 2024 8:43am Chief Complaint Admit Date E87.5 - Hyperkalemia October 04, 2024 1:05pm [...] RENAL HOSP F/U / HYPOKALEMIA October 8:31am 4 month November 22, 2024 8:43am N62 November 23, 2024 10:21am N25.81 N18.9 December 13, 2024 9:4 7am Renal 4 month f/u December 20, 2024 12: 58pm Reason for Visit Admit Date CAD (coronary artery disease) September 072023 6:44pm [...] 8:31am Dyslipidemia October 27, 2024 8 :31am Chronic kidney disease, stage IV (severe ) November 22, 2024 8:43am Chronic renal insufficiency November 8:43am Diabetes mellitus November 22, 2024 8:43am Gynecomastia November 22, 2024 8:43am HTN (hypertension) November 22, 2024 8:43am Hypokalemia November 22, 2024 8:43am Anemia of renal disease December 20, 2024 12:58pm Hypertensive chronic kidney disease with stage 1 through stage 4 chronic ki December 20, 2024 12:58pm Secondary hyperparathyroidism December 12:58pm Type 2 diabetes mellitus wit h diabetic chronic kidney disease December 20, 2024 12:58pm Chronic kidney disease, stage III (moder ate) December 20, 2024 12:58pm Dyslipidemia December 20, 2024 12: 58pm Chief Complaint Admit Date N25.81 N18.9 December 13, 2024 9:4 7am Renal 4 month f/u December 20, 2024 12: 58pm 3 month f/u February 21, 2025 1:09p m E11.9 E87.6 E11.22 E78.5 I10 N18.4 March 09, 2025 9:04am Reason for Visit Admit Date Anemia of renal disease December 20, 2024 12:58pm Hypertensive chronic kidney disease with stage 1 through stage 4 chronic ki December 20, 2024 12:58pm Secondary hyperparathyroidism December 12:58pm Type 2 diabetes mellitus wit h diabetic chronic kidney disease December 20, 2024 12:58pm Chronic kidney disease, stage III (moder ate) December 20, 2024 12:58pm Dyslipidemia December 20, 2024 12: 58pm Chronic kidney disease, stage IV (severe ) February 21, 2025 1:09pm Diabetes mellitus February 21, 2025 1:09p m HTN (hypertension) February 21, 2025 1:09p m Hyperlipemia February 21, 2025 1:09p m Hypokalemia February 21, 2025 1:09p m Type 2 diabetes mellitus wit h diabetic chronic kidney disease February 21, 2025 1:09pm Chief Complaint Admit Date 3 month f/u February 21, 2025 1:09p m E11.9 E87.6 E11.22 E78.5 I10 N18.4 March 09, 2025 9:04am knee pain after fall April 28, 2025 11: 50am Reason for Visit Admit Date Chronic kidney disease, stage IV (severe ) February 21, 2025 1:09pm Diabetes mellitus February 21, 2025 1:09p m HTN (hypertension) February 21, 2025 1:09p m Hyperlipemia February 21, 2025 1:09p m Hypokalemia February 21, 2025 1:09p m Type 2 diabetes mellitus with diabetic c hronic kidney disease February 21, 2025 1:09pm MCL sprain of left knee April 28, 2025 11:50am Chief Complaint Admit Date 3 month f/u February 21, 2025 1:09p m E11.9 E87.6 E11.22 E78.5 I10 N18.4 March 09, 2025 9:04am knee pain after fall April 28, 2025 11: 50am m25.562 April 28, 2025 12:5 5pm M25.562 - Pain in left knee May 11, 2025 9:04am UC GAUTAM LT KNEE PAIN AFTER FALL WX Mayu 2024 11:29am Reason for Visit Admit Date Chronic kidney disease, stage IV (severe ) February 21, 2025 1:09pm Diabetes mellitus February 21, 2025 1:09p m HTN (hypertension) February 21, 2025 1:09p m Hyperlipemia February 21, 2025 1:09p m Hypokalemia February 21, 2025 1:09p m Type 2 diabetes mellitus wit h diabetic chronic kidney disease February 21, 2025 1:09pm MCL sprain of left knee April 28, 2025 11:50am MCL sprain of left knee May 11, 2025 11:29am Chief Complaint Admit Date E11.9 E87.6 E11.22 E78.5 I10 N18.4 March 09, 2025 9:04am knee pain after fall April 28, 2025 11: 50am m25.562 April 28, 2025 12:5 5pm M25.562 - Pain in left knee May 11, 2025 9:04am UC GAUTAM LT KNEE PAIN AFTER FALL WX Augu st 2024 11:29am [id number] May 24, 2025 1: [...] chronic kidney disease May 24, 2025 1:25pm Additional Source Comments (unrecognized sect ion and content) No Status Records FoundNo Status Records FoundNo Status Records FoundNo Status Records FoundNo Status Records FoundNo Status Records FoundNo Status Records FoundNo Status Records FoundNo Status Records Found INFORMATION SOURCE (unrecogn ized section and content) DATE CREATED AUTHOR 03/31/2018 [facility] DATE CREATED AUTHOR AUTHOR'S ORGANIZ ATION 09/27/2020 [facility] DATE CREATED AUTHOR AUTHOR'S ORGANIZ ATION 04/23/2023 [facility] DATE CREATED AUTHOR AUTHOR'S ORGANIZ ATION 04/23/2023 [employer] DATE CREATED AUTHOR AUTHOR'S ORGANIZ ATION 06/25/2024 [facility] DATE CREATED AUTHOR AUTHOR'S ORGANIZ ATION 09/18/2024 [facility] DATE CREATED AUTHOR AUTHOR'S ORGANIZ ATION 09/22/2024 [facility] DATE CREATED AUTHOR AUTHOR'S ORGANIZ ATION 11/20/2024 [facility] DATE CREATED AUTHOR AUTHOR'S ORGANIZ ATION 05/14/2025 [facility] REASON FOR VISIT (unrecogniz ed section and content) Reason Comments Follow-up 6m Reason Comments Thyroid Nodule Yearly US Reason Comments Pain Bilat shoulders, sarbjit k and bilat legs Specialty Diagnoses / Procedures Referred By Hammad solano Referred To Contact Diagnoses Neurogenic pain of right lower extremity Pain in right lower leg [place] [address] [place] [address] [facility] [address] [place] [address] Referral ID Status Reason Start Date Expiration Date Visits Re quested Visits Authorized [id number] 1 1 Reason Comments Follow-up 6 month Specialty Diagnoses / Procedures Referred By Hammad solano Referred To Contact Cardiology Diagnoses 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of [place] coronary artery of [place] heart without angina pectoris Procedures Follow Up In Cardiology Gabriela Florian MD [address] [place] [address] [address], [address] [address] Phone: tel: fax: Gabriela Florian MD [address] [facility] [address], [address] [place] [address] Phone: tel: fax: Referral ID Status Reason Start Date Expiration Date V isits Requested Visits Authorized [id number] Authorized 04/29/2024 04/29/2025 1 1 Care Teams (unrecognized sec tion and content) Team Status: Inactive Member Role Status Dates Lolita Adorno , DO Primary Care Provider Active Joycelyn Waggoner [facility] Emergency Provider Active Team Status: Active Member [...] [place] Other Provider Active Yesica Robledo , RN Other Provider Active Kylee Santos , RN Other Provider Active Ligia Vidal , VALENTINA Other Provider Active Margaret Hunter , VALENTINA Other Provider Active Saskia Washington , VAL[place]INA Other Provider Active Fercho Guillermo MD Other Provider Active Wu Nieto MD Other Provider Active Daly Kign , FILTERER Other Provider Active Troy Mendoza , DO Other Provider Active Rusty Gore MD Other Provider Active Kali Isaac , DO Other Provider Active Reyes Patino MD Other Provider Active Sallie Braga MD Other Provider Active Kay Redman , ANP- Other Provider Active Leon Royal MD Other Provider Active Linus Nash MD Other Provider Active Barbie Osborn MD Other Provider Active Benjy Vernon MD Other Provider Active Nellie Santos , DO Other Provider Active Beth Soto MD Other Provider Active Ronnell Fletcher MD Other Provider Active Lea Jett NOVELTY CHAIN MAKER-C Other Provider Active Kamron Small MD Other Provider Active Alejandro Pastrana MD Other Provider Active Adrien Orona MD Other Provider Active Barbara Watts , DO Other Provider Active Stephane Rodrigez , DO Other Provider Active Jose Oscar , DO Other Provider Active Dayanna Wayne , FILTERER Other Provider Active Roberto Cullen , DO Other Provider Active Cem Murillo MD Other Provider Active Ruthann Dickson FILTERER Other Provider Active Ro Hart , VAL[place] Other Provider Active Team Status: Inactive Member Role Status Dates Lolita Adorno , DO Primary Care Provider Active Gabriela Florian MD Attending Provider Active Team Status: Inactive Member Role Status Dates Lolita Adorno , DO Primary Care Provider Active Beth Lowe NOVELTY CHAIN MAKER-C Attending Provider Active Team Status: Inactive Member Role Status Dates Lolita Adorno , DO Primary Care Provider Active Prieto Santo MD Attending Provider Active Team Status: Inactive Member Role Status Dates Lolita Adorno , DO Primary Care Provider Active Wyatt Chaparro , DO Emergency Provider Active Barbie Osborn MD Admit Provider, Attending Provider Active Joao Coley MD Other Provider Active Govind Jim , DO Other Provider Active Yohannes Granda MD Other Provider Active Darian Peters MD Other Provider Active Milo Mena MD Other Provider Active Maxx Gonzalez MD Other Provider Active Yossi Rodriguez , FILTERER Other Provider Active Kevin Li MD Other Provider Active Omar Strong MD Other Provider Active Khushboo Hines MD Other Provider Active Nette Holden MD Other Provider Active Mirza Causye MD Other Provider Active David Mcleod MD Other Provider Active Tito Martinez MD Other Provider Active Dolores Ramirez , FILTERER ACNP-BC Other Provider Active Parrish Mendosa MD [...] Active Barbie Osborn MD Referring Provider Active Deposit Clerk Relationship Specialty Start Date End Date Lolita Adorno DO [address] [place] [address] PCP - General 10/06/99 Team Status: Inactive [...] August 23, 2024 End: August 23, 2024 Deposit Clerk Relationship Specialty Start Date End Date Lolita Adorno DO [address] [place] [id number] PCP - General Family Medicine 06/23/23 Deposit Clerk Relationship Specialty Start Date End Date Lolita Adorno DO [address] [place] [phone] PCP - General Family Medicine 06/23/23 Deposit Clerk Relationship Specialty Start Date End Date Lolita Adorno DO [address] [place] [phone] PCP - General Family Medicine 06/23/23 Team [...] Tito Martinez MD Other Provider Active Start: J anuary 2024 End: October 08, 2024 Team Status: [...] Matheus Robison MD Other Provider Active Start: [facility] 2024 End: October 12, 2024 Team Status: [...] October 27, 2024 End: October 27, 2024 Deposit Clerk Relationship Specialty Start Date End Date Lolita Adorno DO [address] [facility] [address] [place] [id number] PCP - General 05/24/24 Deposit Clerk Relationship Specialty Start Date End Date Lolita Adorno DO PCP - General 10/06/99 Team Status: Active Member Role Status Dates Nette Holden MD Attending Provider Active Start : October 29, 2024 Lolita Adorno , DO Primary Care Provider Active Start: October 29, 2024 Team Status: Active Member Role Status Dates Nette Holden MD Attending Provider Active Start : November 01, 2024 Lolita Adorno , DO Primary Care Provider Active Start: November 01, 2024 Team Status: Active Member Role Status Dates Nette Holden MD Attending Provider Active Start : November 04, 2024 Lolita Adorno , DO Primary Care Provider Active Start: November 04, 2024 Team Status: Active Member Role Status Dates Nette Holden MD Attending Provider Active Start : November 11, 2024 Lolita Adorno , DO Primary Care Provider Active Start: November 11, 2024 Team Status: Inactive Member Role Status Dates Lolita Adorno , DO Primary Care Pro vider, Attending Provider Active Start: November 22, 2024 End: November 22, 2024 Team Status: Inactive Member Role Status Dates Lolita Adorno , DO Primary Care Pro vider, Attending Provider Active Start: November 23, 2024 End: November 23, 2024 Team Status: Inactive Member Role Status Dates Lolita Adorno DO Primary Care Provider Active Start: December 13, 2024 End: December 13, 2024 Nette Holden MD Attending Provider Active Start : December 13, 2024 End: December 13, 2024 Team Status: Inactive Member Role Status Dates Lolita Adorno DO Primary Care Provider Active Start: December 20, 2024 End: December 20, 2024 Nette Holden MD Attending Provider Active Start : December 20, 2024 End: December 20, 2024 Team Status: Inactive Member Role Status Dates Lolita Adorno , DO Primary Care Pro vider, Attending Provider Active Start: February 21, 2025 End: February 21, 2025 Team Status: Inactive Member Role Status Dates Lolita Adorno , DO Primary Care Pro vider, Attending Provider Active Start: March 09, 2025 End: March 09, 2025 Team Status: Inactive Member Role Status Dates Lolita Adorno DO Primary Care Provider Active Start: February 21, 2025 End: February 21, 2025 Lolita Adorno , Attending Provider Active Start: February 21, 2025 End: February 21, 2025 Team Status: Inactive Member Role Status Dates Lolita Adorno DO Primary Care Provider Active Start: March 09, 2025 End: March 09, 2025 Lolita Adorno , DO Attending Provider Active Start: March 09, 2025 End: March 09, 2025 Team Status: Inactive Member Role Status Dates Lolita Adorno DO Primary Care Provider Active Start: April 28, 2025 End: April 28, 2025 Lizette Alanis APRN Attending Provider Active Start: April 28, 2025 End: April 28, 2025 Team Status: Active Member Role Status Dates Lolita Adorno DO Primary Care Provider Active Start: April 28, 2025 Lizette Alanis APRN Attending Provider Active Start: April 28, 2025 Team Status: Active Member Role Status Dates Lolita Adorno DO Primary Care Provider Active Start: May 11, 2025 Alex Reeves II, MD Attending Provider Active Start: May 11, 2025 Team Status: Inactive Member Role Status Dates Lolita Adorno DO Primary Care Provider Active Start: May 11, 2025 End: May 11, 2025 Alex Reeves II, MD Attending Provider Active Start: May 11, 2025 End: May 11, 2025 Team Status: Inactive Member Role Status Dates Lolita Adorno DO Primary Care Provider Active Start: May 24, 2025 End: May 24, 2025 Lolita Adorno DO Attending Provider Active Start: May 24, 2025 End: May 24, 2025 Goals (unrecognized section and content) Goals may be documented in a n alternate section Ordered Prescriptions (unrec ognized section and content) Prescription Sig Dispensed Refills Start Date End Da te spironolactone (ALDACTONE) 25 MG tablet Take 1 tablet by mouth daily 30 tablet 3 06/01/2024 famotidine (PEPCID) 20 MG tablet Take 1 tablet by mouth daily 60 tablet 06/01/2024 hydrALAZINE (APRESOLINE) 100 MG tablet Take [...] RN)1002 (Given - Provider: Anne Marie Carreon RN)1755 (Given - Provider: Anne Marie Carreon RN)2243 (Not Given - Provider: Salome Garcia RN - Reason: Other - Comment: pt received 2 tabs of norco pt will exceed the tylenol max dosage for today) 0541 (Not Given - Provider: Salome Garcia RN - Reason: Other - Comment: norco given)0958 (Given - Provider: Annabelle Brooks RN)1700 (Due - Provider: Yazan Mcclendon RPH)2300 (Due - Provider: Yazan Mcclendon RPH) atorvastatin (LIPITOR) tablet 20 mg 20 mg, Oral, NIGHTLY, First dose on Fri05/25/24 at 2100, Until Discontinued 2030 (Given - Provider: Ian Xiao RN) 213 (Given - Provider: aSlome Garcia RN) 2100 (Due) carvedilol (COREG) tablet 25 mg 25 mg, Oral, 2 TIMES DAILY WITH MEALS, First dose on Fri05/24/24 at 0800, Until Discontinued, Administer with food to minimize the risk of orthostatic hypotension 0808 (Given - Provider: Anne Marie Carreon RN)171 (Given - Provider: Rebecca Norris RN) 1003 (Given - Provider: Anne Marie Carreon RN)175 (Given - Provider: Anne Marie Carreon RN) 0958 (Given - Provider: Annabelle Brooks, VALENTINA)1700 (Due) cetirizine (ZYRTEC) tablet 10 mg 10 mg, Oral, 2 TIMES DAILY, First dose on Fri05/28/24 at 2100, Until Discontinued 08 (Given - Provider: Anne Marie Carreon RN)2029 (Given - Provider: Ian Xiao RN) 100 (Given - Provider: Anne Marie Carreon RN)2241 (Given - Provider: Salome Garcia, VALENTINA) 0958 (Given - Provider: Annabelle Brooks, VALENTINA)2099 (Due) cyclobenzaprine (FLEXERIL) tablet 10 mg 10 mg, Oral, Nightly, First dose on Fri05/25/24 at 2100, Until Discontinued 2029 (Given - Provider: Ian Xiao RN) 2007 (Not Given - Provider: Salome Garcia RN - Reason: Other - Comment: prn dose given) 2099 (Due) famotidine (PEPCID) 20 mg in sodium [...] RN) 0958 (See Alternative - Provider: Annabelle Brooks, VALENTINA) famotidine (PEPCID) tablet 20 mg(Linked Group 1) 20 mg, Oral, DAILY, First dose on Fri05/28/24 at 0900, Until Discontinued 0808 (Given - Provider: Anne Marie Carreon RN) 1003 (Given - Provider: Anne Marie Carreon RN) 0958 (Given - Provider: Annabelle Brooks RN) gabapentin (NEURONTIN) capsule 300 mg 300 mg, Oral, 2 times daily, First dose on Fri05/24/24 at 1130, Until Discontinued 0812 (Given - Provider: Anne Marie Carreon RN)2029 (Given - Provider: Ian Xiao RN) 1003 (Given - Provider: Anne Marie Carreon RN)213 (Given - Provider: Salome Garcia RN) 0958 (Given - Provider: Annabelle Brooks RN)2100 (Due) heparin (porcine) injection 5,000 Units 5,000 Units, SubCUTAneous, EVERY 8 HOURS SCHEDULED (3 times per day), First dose on Fri05/28/24 at 0600, Until Discontinued 0536 (Given - Provider: Ian Xiao RN)140 (Given - Provider: Rebecca Norris RN)2029 (Given - Provider: Ian Xiao RN) 0534 (Given - Provider: Ian Xiao RN)133 (Given - Provider: Anne Marie Carreon RN)2136 (Given - Provider: Salome Garcia RN) 0542 (Given - Provider: Salome Garcia RN)1400 (Due)2200 (Due) hydrALAZINE (APRESOLINE) tablet 100 mg 100 mg, Oral, EVERY 8 HOURS SCHEDULED (3 times per day), First dose (after last modification) on Fri05/28/24 at 1400, Until Discontinued 0535 (Given - Provider: Ian Xiao RN)140 (Given - Provider: Rebecca Norris RN)2029 (Given - Provider: Ian Xiao RN) 0534 (Given - Provider: Ian Xiao RN)133 (Given - Provider: Anne Marie Carreon RN)213 (Given - Provider: Salome Garcia RN) 0541 (Given - Provider: Salome Garcia RN)1400 (Due)2200 (Due) insulin glargine (LANTUS) injection vial 10 Units 10 Units, SubCUTAneous, 2 TIMES DAILY, First dose (after last modification) on Fri05/29/24 at 2100, Until Discontinued 0811 (Given - Provider: Anne Marie Carreon RN)2029 (Given - Provider: Ian Xiao RN) 1003 (Given - Provider: Anne Marie Carreon RN)2137 (Given - Provider: Salome Garcia RN) 1000 (Not Given - Provider: Annabelle [...] 30 mg, Oral, DAILY, First dose on 05/24/24 at 0900, Until Discontinued, Do not crush or chew. 0813 (Given - Provider: Anne Marie Carreon RN) 1004 (Given - Provider: Anne Marie Carreon RN) 0958 (Given - Provider: Annabelle Brooks, VALENTINA) polyethylene glycol (GLYCOLAX) packet 17 g 17 [...] 0851 (Given - Provider: Anne Marie Carreon RN)2031 (Given - Provider: Ian Xiao RN) 1009 (Given - Provider: Anne Marie Carreon RN)2200 (Given - Provider: Salome Garcia RN) 1001 (Given - Provider: Annabelle Brooks, VALENTINA)2100 (Due) sodium chloride flush 0.9 % injection 5-40 mL 5-40 mL, IntraVENous, EVERY 12 HOURS SCHEDULED (2 times per day), First dose on [place] 05/27/24 at 2115, Until Discontinued, For Line Patency: [...] Post-op 0815 (Given - Provider: Anne Marie Carreon RN)2043 (Given - Provider: Ian Xiao RN) 1123 (Given - Provider: Anne Marie Carreon RN)2138 (Given - Provider: Salome Garcia, VALENTINA) 1001 (Given - Provider: Annabelle Brooks, VALENTINA)2100 (Due) spironolactone (ALDACTONE) tablet 25 mg 25 mg, Oral, DAILY, First dose on Fri06/01/24 at 1030, Until Discontinued 0808 (Given - Provider: Anne Marie Carreon RN) 1003 (Given - Provider: Anne Marie Carreon RN) 0958 (Given - Provider: Annabelle Brooks, VALENTINA) PRN Medication Order 06/03/2024 06/04/2024 06/05/2024 0.9 % sodium chloride infusion IntraVENous, at 5-250 mL/hr, PRN, if patient receiving piggyback infusions and maintenance fluids are not ordered OR KVO fluids to protect IV site / prevent frequent line interruptions/ long duration, Starting on [place] 05/23/24 at 2216, For piggyback infusion, administer [...] frequent line interruptions/ long duration, Starting on [place] 05/27/24 at 2052, For piggyback infusion, administer at same rate [...] 10 mg, Rectal, DAILY PRN, Starting on Fri05/27/24 at 2051, Until Discontinued, Constipation, Second line therapy for constipation, After 24 hours, if no result from first line PRN therapy, give second line therapy in combination with first line therapy., Post-op cyclobenzaprine (FLEXERIL) tablet 10 mg 10 mg, Oral, 3 TIMES DAILY PRN, Starting on Fri05/27/24 at 2051, Until Discontinued, Muscle spasms, Post-op 0808 (Given - Provider: Anne Marie Carreon RN)1308 (Given - Provider: Anne Marie Carreon, RN) 1003 (Given - Provider: Anne Marie Carreon, RN)1336 (Given - Provider: Anne Marie Carreon, RN)1943 (Given - Provider: Salome Garcia, VALENTINA) dextrose 10 % infusion IntraVENous, at 100 [...] g (4 tablet), Oral, PRN, Starting on Fri05/24/24 at 0430, Until [...] 4 HOURS PRN, Starting on Fri05/27/24 at 2051, Until Discontinued, Pain Moderate (4-6), Maximum dose of acetaminophen is 4000 mg from all sources in 24 hours., Post-op 1148 (Given - Provider: Anne Marie Carreon RN) 1003 (Given - Provider: Anne Marie Carreon RN)1756 (Given - Provider: Anne Marie Carreon RN) HYDROcodone-acetaminophen (NORCO) 5-325 MG per tablet 2 tablet 2 tablet, Oral, EVERY 4 HOURS PRN, Starting on Fri05/27/24 at 2051, Until Discontinued, Pain Severe (7-10), Maximum dose of acetaminophen is 4000 mg from all sources in 24 hours., Post-op 2242 (Given - Provider: Salome Garcia, VALENTINA) 0540 (Given - Provider: Salome Garcia RN) labetalol (NORMODYNE;TRANDATE) injection 10 mg 10 mg, [...] IntraVENous, EVERY 6 HOURS PRN, Starting on Fri05/27/24 at 2056, Until Discontinued, Heartburn, Nausea, IV Push: Max 10 mg over 1-2 minutes. ondansetron (ZOFRAN) injection 4 mg(Linked Group 3) 4 mg, IntraVENous, EVERY 6 HOURS PRN, Starting on Fri05/23/24 at 2216, Until Discontinued, Nausea, Vomiting, Administer if oral route cannot be used. ondansetron (ZOFRAN-ODT) disintegrating tablet 4 mg(Linked Group 3) 4 mg, Oral, EVERY 8 HOURS PRN, Starting on Fri05/23/24 at 2216, Until Discontinued, Nausea, Vomiting senna (SENOKOT) tablet 8.6 mg 8.6 mg (1 tablet), Oral, DAILY PRN, Starting on Fri05/27/24 at 2052, Until Discontinued, Constipation, First line therapy for constipation, Post-op sodium chloride flush 0.9 % injection 5-40 mL 5-40 mL, IntraVENous, PRN, Starting on Fri05/23/24 at 2216, Until Discontinued, Line Care, After [...] mL 5-40 mL, IntraVENous, PRN, Starting on Fri05/27/24 at 2052, Until Discontinued, Line Care, After every IV [...] 05/23/24 at 2216, Until Discontinued, Nausea, Vomiting Or [...] BE BASED ON THE PRIMARY CLINICAL RECORDS. [employer] [facility]. provides no warranty or guarantee of the accuracy or completeness of information in this document.
[2025-06-07 09:52] LABS: Protein Creatinine Ratio Urine 0.30; Total Protein Urine Random 20.9 mg/dL (<=11.9)
[2025-06-07 09:56] LABS: Albumin Level 3.7 g/dL (3.4-5.0); Anion Gap 10.4; Blood Urea Nitrogen 43.0 mg/dL (7.0-18.0); Calcium 9.2 mg/dL (8.5-10.1); Carbon Dioxide 27.3 mmol/L (21.0-32.0); Chloride 106 mmol/L (98-107); Estimated GFR (African America 30 (>=60 mL/min/1.73m^2); Estimated GFR (Non-African Ame 24 (>=60 mL/min/1.73m^2); Glucose 162 mg/dL (74-106); Magnesium 2.3 mg/dL (1.8-2.4); Potassium 4.7 mmol/L (3.5-5.1); Sodium 139 mmol/L (136-145); Uric Acid 6.8 mg/dL (3.5-7.2)
[2025-06-07 10:02] LABS: Hematocrit 38.0 % (42.0-54.0); Hemoglobin 12.3 g/dL (14.0-18.0); Mean Corpuscular HGB Conc 32.4 g/dL (29.9-35.2); Mean Corpuscular Hemoglobin 28.6 pg (25.9-34.0); Mean Corpuscular Volume 88.4 fL (80.0-94.0); Platelet Count 182 10^3/uL (150-450); Red Blood Count 4.30 10^6/uL (4.70-6.10); White Blood Count 7.6 10^3/uL (4.0-11.0)
[2025-06-07 10:07] LABS: Glucose Urine UA 100 mg/dL (NEGATIVE)
[2025-06-07 10:48] LABS: Iron 62.0 ug/dL (65.0-175.0); Percent Iron Saturation 23.8 %; Total Iron Binding Capacity 261.0 ug/dL (250.0-450.0)
[2025-06-07 11:14] LABS: Ferritin 135.0 ng/mL (26.0-388.0)
[2025-06-07 11:42] LABS: Cast Seen? SEEN #/LPF (NONE SEEN); Crystals Seen? None Seen #/HPF (None Seen); Urine Culture Indicated NO
== END 2025-06-07 09:15 | disposition home or self-care (01) ==
LOC: LAB 09:15
PROVIDERS: Visit Provider Internal Medicine
DX: N25.81 Secondary hyperparathyroidism of renal origin (principal); N18.9 Chronic kidney disease, unspecified; D63.1 Anemia in chronic kidney disease; I12.9 Hypertensive chronic kidney disease with stage 1 through stage 4 chronic kidney disease, or unspecified chronic kidney disease; E11.22 Type 2 diabetes mellitus with diabetic chronic kidney disease
CPT/HCPCS: 36415; 80069; 81001; 82306; 82570; 82728; 83540; 83550; 83735; 83970; 84156; 84550; 85027